=== PATIENT | male | born 1960 | race Hispanic/Latino ===

== ENCOUNTER 2016-04-24 19:33 | Inpatient (IN) | payer MEDICAID, OTHER ==
[2016-04-24 19:34] VITALS: BMI 27.9
--- NOTE | 2016-04-24 21:54 | ED PDOC ---
Arrival/HPI - General Chief Complaint: GI Problem Time Seen by Provider: 04/24/16 21:12 Historian: Patient - History of Present Illness Narrative History of Present Illness (Text): 04/24/16 21:50 Adrian Kruger is a 55 year old male, with a history of alcoholism, alcohol liver disease, esophageal varices, liver cirrhosis, and colonic polyps, presents to the emergency department for evaluation of possible GI bleed. Patient reports of dark stools for past few days. Also reports of left lower quadrant abdominal discomfort. Last drink was earlier today. Denies fever, chills, chest pain, nausea, vomiting, diarrhea, urinary symptoms, or any other complaints at this time. Time/Duration: < week Symptom Onset: Gradual Symptom Course: Unchanged Severity Level: Mild Activities at Onset: Light Past Medical History - Provider Review Nursing Documentation Reviewed: Yes - Past History Past History: Non-Contributing - Infectious Disease Hx of Infectious Diseases: None - Tetanus Immunization Tetanus Immunization: Unknown - Cardiac Hx Cardiac Disorders: Yes - Pulmonary Hx Respiratory Disorders: Yes (smokes 1 pack a day) - Neurological Hx Neurological Disorder: Yes Hx Seizures: Yes - HEENT Hx HEENT Disorder: Yes (eyeglasses) - Renal Hx Renal Disorder: No - Endocrine/Metabolic Hx Endocrine Disorders: No - Hematological/Oncological Hx Blood Disorders: No - Integumentary Hx Dermatological Disorder: No - Musculoskeletal/Rheumatological Hx Falls: No - Gastrointestinal Hx Gastrointestinal Disorders: Yes Other/Comment: alcoholic gastritis - Genitourinary/Gynecological Hx Genitourinary Disorders: No - Psychiatric Hx Depression: Yes Hx Substance Use: No - Surgical History Other/Comment: s/p banding of varices x2 - Anesthesia Hx Anesthesia: No Hx Anesthesia Reactions: No Hx Malignant Hyperthermia: No - Suicidal Assessment Feels Threatened In Home Enviroment: No Family/Social History - Physician Review Nursing Documentation Reviewed: Yes Family/Social History: No Known Family HX Smoking Status: Heavy Smoker > 10 Cigarettes Daily Hx Alcohol Use: Yes Hx Substance Use: No Hx Substance Use Treatment: No Allergies/Home Meds Allergies/Adverse Reactions: Allergies pseudoephedrine HCl [From Sudafed] Allergy (Mild, Verified 04/05/16 18:03) NAUSEA Sulfa (Sulfonamide Antibiotics) Allergy (Mild, Verified 04/05/16 18:03) ANGIOEDEMA Review of Systems - Physician Review All systems were reviewed & negative as marked: Yes - Review of Systems Constitutional: Normal. absent: Fatigue, Fevers Respiratory: Normal. absent: SOB, Cough Cardiovascular: Normal. absent: Chest Pain Gastrointestinal: Abdominal Pain (LLQ ), Other (dark stool ). absent: Diarrhea , Nausea, Vomiting Neurological: Normal. absent: Headache, Dizziness Psychiatric: Normal Physical Exam Vital Signs Reviewed: Yes Vital Signs Temp Pulse Resp BP Pulse Ox 04/24/16 21:00 98.2 F 86 18 118/62 99 Temperature: Afebrile Blood Pressure: Normal Pulse: Regular Respiratory Rate: Normal Appearance: Positive for: Well-Appearing, Non-Toxic, Comfortable Pain Distress: None Mental Status: Positive for: Alert and Oriented X 3 - Systems Exam Head: Present: Atraumatic, Normocephalic Pupils: Present: PERRL. No: Sluggish, Non-Reactive, Pinpoint, Other Extroacular Muscles: Present: EOMI Conjunctiva: Present: Normal Mouth: Present: Moist Mucous Membranes Respiratory/Chest: Present: Clear to Auscultation, Good Air Exchange. No: Respiratory Distress, Accessory Muscle Use Cardiovascular: Present: Regular Rate and Rhythm, Normal S1, S2. No: Murmurs Abdomen: Present: Tenderness ( left lower quadrant ), Normal Bowel Sounds. No: Distention, Peritoneal Signs Rectal: Present: Other (no active bleeding. Bright red blood ). No: Rectal Tenderness, Hemorrhoids, Nodule/Mass/Lesions Neurological: Present: GCS=15, CN II-XII Intact, Speech Normal Skin: Present: Warm, Dry, Normal Color. No: Rashes Psychiatric: Present: Alert, Oriented x 3, Normal Insight, Normal Concentration Medical Decision Making ED Course and Treatment: 04/24/16 22:00 Impression: A 55 year old male who presents to the emergency department complaining of passing dark stools for past few days. Plan: -- Labs -- Labs -- IV fluids -- Urinalysis -- Reassess and disposition Progress Notes: 04/24/16 22:18 EKG interpreted by me: NSR @ 83 bpm. Non-specific T wave changes. 04/25/16 01:00 CT abdomen pelvis reviewed: IMPRESSION: Cirrhotic liver with fatty infiltration, splenomegaly and varices; trace pericholecystic fluid suggests gallbladder disease, no ductal dilatation; enterocolitis, no appendicitis or diverticulitis Chest X-ray read and interpreted by me, which shows no acute diseases Case discussed with , house doctor, who agrees with the plan to admit patient to hospital for GI bleed and abdominal pain. Accepts patient under hospitalist service. - Lab Interpretations Lab Results: 04/24/16 22:40 04/24/16 22:40 Lab Results 04/24/16 22:40: WBC 2.3 L* D, RBC 3.24 L, Hgb 10.2 L, Hct 29.9 L, MCV 92.3, MCH 31.5, MCHC 34.1, RDW 14.7 H, Plt Count 51 L, MPV 10.8, PT 11.4, INR 1.06, APTT 26.1, Sodium 145, Potassium 4.3, Chloride 107, Carbon Dioxide 25, Anion Gap 17, BUN 21, Creatinine 0.9, Est GFR ( Amer) > 60, Est GFR (Non-Af Amer) > 60 , Random Glucose 92, Calcium 9.1, Total Bilirubin 0.6, AST 334 H, ALT 192 H, Alkaline Phosphatase 90, Total Protein 6.0, Albumin 3.4, Globulin 2.6, Albumin/ Globulin Ratio 1.3, Lipase 282, Alcohol, Quantitative 248 H I have reviewed the lab results: Yes - RAD Interpretation Narrative RAD Interpretations (Text): EXAM: CT Abdomen and Pelvis With Intravenous Contrast. COMPARISON: There are no prior studies for comparison. FINDINGS: Lower thorax: Heart size is normal. Lung bases are hyperinflated but clear. There is distal esophageal wall thickening. There are multiple paraesophageal varices in the posterior mediastinum. ABDOMEN: Liver: There is fatty infiltration of the liver. Hepatic contours are nodular. Liver is mildly enlarged. Gallbladder and bile ducts: Gallbladder is partially distended. Common bile duct is unremarkable. There is minimal pericholecystic fluid. Pancreas: Pancreas is mildly atrophic. Spleen: Spleen is enlarged, 24 cm in length. Adrenals: The adrenals Kidneys and ureters: There are small right renal cysts. Kidneys and ureters are otherwise unremarkable. Stomach and bowel: Stomach is almost completely empty.Bowel rotation is normal. Small bowel is mildly distended with fluid. There is mid small bowel wall thickening. There is no obstruction. Appendix is unremarkable. There is mild fatty infiltration of the terminal ileal wall. There is fatty infiltration of the right colon wall. There is descending and sigmoid colon wall thickening. There is rectal wall thickening. There is scattered diverticulosis. Appendix: See stomach and bowel PELVIS: Bladder: unremarkable Reproductive: Prostate is mildly enlarged. Seminal vesicles are unremarkable. ABDOMEN and PELVIS: Intraperitoneal space: There is no free air. Bones/joints: There are degenerative changes in the osseus structures. Soft tissues: There is a fat-containing umbilical hernia. Vasculature: Aorta and inferior vena cava are unremarkable. There are multiple varices in the upper abdomen. Lymph nodes: unremarkable IMPRESSION: Cirrhotic liver with fatty infiltration, splenomegaly and varices; trace pericholecystic fluid suggests gallbladder disease, no ductal dilatation; enterocolitis, no appendicitis or diverticulitis Additional findings as described above. Radiology Orders: 04/24/16 22:02 CHEST PORTABLE [RAD] Stat 04/24/16 22:13 ABD & PELVIS IV CONTRAST ONLY [CT] Stat Graphic Arts Technician: Radiologist - EKG Interpretation Interpreted by ED Physician: Yes Type: 12 lead EKG - Medication Orders Current Medication Orders: Ceftriaxone Sodium (Rocephin 1 Gram Ivpb) 100 mls @ 200 mls/hr IV ONCE STA PRN Reason: Protocol Stop: 04/25/16 01:30 Metronidazole (Flagyl) 100 mls @ 100 mls/hr IVPB STAT STA PRN Reason: Protocol Stop: 04/25/16 02:01 Discontinued Medications Famotidine (Pepcid) 20 mg IVP STAT STA Stop: 04/24/16 22:04 Last Admin: 04/24/16 22:48 Dose: 20 MG IVP Administration Document 04/24/16 22:48 PITO (Rec: 04/24/16 22:48 P[facility]O [email or web address]) Charges for Administration # of IVP Administrations 1 Sodium Chloride (Sodium Chloride 0.9%) 1,000 mls @ 999 mls/hr IV .Q1H1M STA Stop: 04/24/16 23:03 Last Admin: 04/24/16 22:49 Dose: 999 MLS/HR eMAR Start Stop Document 04/24/16 22:49 PITO (Rec: 04/24/16 22:49 PITO [email or web address]) Intravenous Solution Start Date 04/24/16 Start Time 22:49 End Date 04/24/16 End time 23:49 Total Infusion Time 60 Iohexol (Omnipaque 350 100 Ml) Confirm Administered Dose 350 mg .ROUTE .STK-MED ONE Stop: 04/24/16 23:05 Pantoprazole Sodium (Protonix Inj) 40 mg IVP ONCE STA Stop: 04/24/16 22:04 Last Admin: 04/24/16 22:47 Dose: 40 MG IVP Administration Document 04/24/16 22:47 PITO (Rec: 04/24/16 22:47 [email or web address] Charges for Administration # of IVP Administrations 1 - Scribe Statement The provider has reviewed the documentation as recorded by the Magedibe Katlyn Perrin Provider Attestation: All medical record entries made by the Scribe were at my direction and personally dictated by me. I have reviewed the chart and agree that the record accurately reflects my personal performance of the history, physical exam, medical decision making, and the department course for this patient. I have also personally directed, reviewed, and agree with the discharge instructions and disposition. Disposition/Present on Arrival - Present on Arrival Any Indicators Present on Arrival: No History of DVT/PE: No History of Uncontrolled Diabetes: No Urinary Catheter: No History of Decub. Ulcer: No History Surgical Site Infection Following: None - Disposition Have Diagnosis and Disposition been Completed?: Yes Diagnosis: GI bleed, Alcohol abuse, Pancytopenia Disposition: HOSPITALIZED Disposition Time: 01:08 Patient Plan: Admission Patient Problems: Current Active Problems Problem Status Diagnosed GI bleed Acute Pancytopenia Acute Alcohol abuse Chronic Condition: STABLE Referrals: Davey De La Torre MD [Primary Care Provider] - Follow up with primary
[2016-04-24] MEDS ORDERED: Sodium Chloride 0.9% 1,000 ML IV STA (22:03)
[2016-04-24 22:57] LABS: HEMATOCRIT 29.9 % (42.0-52.0); MEAN CELL VOLUME 92.3 fL (80.0-105.0); MEAN CORPUSCULAR HEMOGLOBIN 31.5 pg (25.0-35.0); MEAN CORPUSCULAR HGB CONC 34.1 g/dl (31.0-37.0); MEAN PLATELET VOLUME 10.8 fl (7.0-11.0); RED CELL DISTRIBUTION WIDTH 14.7 % (11.5-14.5)
[2016-04-24] MEDS ORDERED: Iohexol 350 MG/100 ML VIAL ONE (23:04)
[2016-04-24 23:09] LABS: ALB/GLOB RATIO 1.3 (1.1-1.8); ALKALINE PHOSPHATASE 90 U/L (38-133); ALT/SGPT 192 U/L (7-56); AST/SGOT 334 U/L (15-59); BILIRUBIN,TOTAL 0.6 mg/dL (0.2-1.3); BLOOD UREA NITROGEN 21 mg/dL (7-21); CALCIUM 9.1 mg/dL (8.4-10.5); CARBON DIOXIDE 25 mmol/L (21-33); CHLORIDE 107 mmol/L (98-107); GFR AFRICAN-AMERICAN > 60; GLUCOSE,RANDOM 92 mg/dL (70-110); LIPASE 282 U/L (23-300); POTASSIUM 4.3 mmol/L (3.6-5.0); SODIUM 145 mmol/L (132-148)
[2016-04-24 23:22] LABS: WHITE BLOOD COUNT 2.3 10^3/ul (4.5-11.0)
[2016-04-24 23:55] LABS: INR 1.06 (0.93-1.08); PARTIAL THROMBOPLASTIN TIME 26.1 Seconds (23.7-30.8)
--- NOTE | 2016-04-25 00:25 | CT ---
EXAM: CT Abdomen and Pelvis With Intravenous Contrast. CLINICAL HISTORY: 55 years old, male; Signs and symptoms; Other: Blood in stool; Additional info: Left lower abdominal pain TECHNIQUE: Axial computed tomography images of the abdomen and pelvis with intravenous contrast. This CT exam was performed using one or more of the following dose reduction techniques: automated exposure control, adjustment of the mA and/or kV according to patient size, and/or use of iterative reconstruction technique. Coronal and sagittal reformatted images were created and reviewed. CONTRAST: 100 mL of OMNI administered intravenously. EXAM DATE/TIME: 04/24/2016 10:13 PM COMPARISON: There are no prior studies for comparison. FINDINGS: Lower thorax: Heart size is normal. Lung bases are hyperinflated but clear. There is distal esophageal wall thickening. There are multiple paraesophageal varices in the posterior mediastinum. ABDOMEN: Liver: There is fatty infiltration of the liver. Hepatic contours are nodular. Liver is mildly enlarged. Gallbladder and bile ducts: Gallbladder is partially distended. Common bile duct is unremarkable. There is minimal pericholecystic fluid. Pancreas: Pancreas is mildly atrophic. Spleen: Spleen is enlarged, 24 cm in length. Adrenals: The adrenals Kidneys and ureters: There are small right renal cysts. Kidneys and ureters are otherwise unremarkable. Stomach and bowel: Stomach is almost completely empty.Bowel rotation is normal. Small bowel is mildly distended with fluid. There is mid small bowel wall thickening. There is no obstruction. Appendix is unremarkable. There is mild fatty infiltration of the terminal ileal wall. There is fatty infiltration of the right colon wall. There is descending and sigmoid colon wall thickening. There is rectal wall thickening. There is scattered diverticulosis. Appendix: See stomach and bowel PELVIS: Bladder: unremarkable Reproductive: Prostate is mildly enlarged. Seminal vesicles are unremarkable. ABDOMEN and PELVIS: Intraperitoneal space: There is no free air. Bones/joints: There are degenerative changes in the osseus structures. Soft tissues: There is a fat-containing umbilical hernia. Vasculature: Aorta and inferior vena cava are unremarkable. There are multiple varices in the upper abdomen. Lymph nodes: unremarkable IMPRESSION: Cirrhotic liver with fatty infiltration, splenomegaly and varices; trace pericholecystic fluid suggests gallbladder disease, no ductal dilatation; enterocolitis, no appendicitis or diverticulitis Additional findings as described above.
[2016-04-25] MEDS ORDERED: cefTRIAXone 1 gm 100 ML IV STA (01:01)
[2016-04-25] MEDS ORDERED: metroNIDAZOLE IV 500 mg/100 ml 100 ML IVPB STA (01:02)
--- NOTE | 2016-04-25 02:16 | CP.PCM.HP ---
<Marissa Cortes - Last Filed: 04/25/16 03:06> History of Present Illness - History of Present Illness History of Present Illness: PGY-[address] Nakia Barakat 55 year old male, with a history of alcoholism, withdrawal seizure, alcohol liver disease, esophageal varices s/p banding, liver cirrhosis, and colonic polyps, presents to the emergency department for evaluation of possible GI bleed. Patient reports of maroon colored stools for past few days. 3 episodes per day. The stool was formed but loose., not watery diarrhea. Last similar episodes was a year ago last [facility] hospitalization. Pt reports of left upper quadrant abdominal discomfort. Last drink was earlier today. Pt started to have coughs with phlegms with some fever today. ED performed rectal exam. it was bright red blood in stool, scanty quantity. Lipase was 311. ROS - Denies dizziness, chest pain, SOB, palpitation, nausea, vomiting, diarrhea , urinary symptoms, or constipation ED: EKG NSR @ 83 bpm. Non-specific T wave changes. CXR: No active disease CT abdomen pelvis With Intravenous Contrast: Cirrhotic liver with fatty infiltration, splenomegaly and varices; trace pericholecystic fluid suggests gallbladder disease, no ductal dilatation; enterocolitis, no appendicitis or diverticulitis. scattered diverticulosis. distal esophageal wall thickening. There are multiple paraesophageal varices in the posterior mediastinum. multiple varices in the upper abdomen. PMH: HTN Hx. alcoholism, alcohol liver disease, esophageal varices s/p banding , liver cirrhosis, Rectal bleeding. Anemia. Seizures.Alcohol withdrawal related Alcoholic gastritis. Tobacco dependence. Esophageal varices. Colonic polyps. PSH: Colonic polypectomy(4 removed.) Feb 2105. Banding of varices. FH: Father of liver cancer. Mother of breast cancer. Sister had brain aneurism. SH: Smoking-1 PP2 days x 40 years. ETOH-1/2 pint per week for 3 months, prior to that was taking 2 pint every day for 10 years. Drugs-Did heroine.Last use was one year ago.Had one bag every 2 weeks for 2 6 months.Denies IVDA. Med: MAR PMD:Dr.Jacqualine Downey at [facility]. Present on Admission - Present on Admission Any Indicators Present on Admission: No Past Patient History - Infectious Disease Hx of Infectious Diseases: None - Tetanus Immunizations Tetanus Immunization: Unknown - Past Medical History & Family History Past Medical History?: Yes - Past Social History Smoking Status: Heavy Smoker > 10 Cigarettes Daily - CARDIAC Hx Cardiac Disorders: Yes - PULMONARY Hx Respiratory Disorders: Yes (smokes 1 pack a day) - NEUROLOGICAL Hx Neurological Disorder: Yes Hx Seizures: Yes - HEENT Hx HEENT Problems: Yes (eyeglasses) - RENAL Hx Chronic Kidney Disease: No - ENDOCRINE/METABOLIC Hx Endocrine Disorders: No - HEMATOLOGICAL/ONCOLOGICAL Hx Blood Disorders: No - INTEGUMENTARY Hx Dermatological Problems: No - MUSCULOSKELETAL/RHEUMATOLOGICAL Hx Falls: No - GASTROINTESTINAL Hx Gastrointestinal Disorders: Yes Other/Comment: alcoholic gastritis - GENITOURINARY/GYNECOLOGICAL Hx Genitourinary Disorders: No - PSYCHIATRIC Hx Depression: Yes Hx Substance Use: No - SURGICAL HISTORY Other/Comment: s/p banding of varices x2 - ANESTHESIA Hx Anesthesia: No Hx Anesthesia Reactions: No Hx Malignant Hyperthermia: No Meds Allergies/Adverse Reactions: Allergies Allergy/AdvReac Type Severity Reaction Status Date / Time pseudoephedrine HCl Allergy Mild NAUSEA Verified 04/05/16 18:03 [From Sudafed] Sulfa (Sulfonamide Allergy Mild ANGIOEDEMA Verified 04/05/16 18:03 Antibiotics) Physical Exam - Constitutional Appears: No Acute Distress - Head Exam Head Exam: ATRAUMATIC, NORMOCEPHALIC - Eye Exam Eye Exam: EOMI, Normal appearance, PERRL Pupil Exam: NORMAL ACCOMODATION Additional comments: alcohol breath - ENT Exam ENT Exam: Mucous Membranes Moist - Neck Exam Neck exam: Positive for: Normal Inspection. Negative for: Meningismus - Respiratory Exam Respiratory Exam: Clear to Auscultation Bilateral, Wheezes, NORMAL BREATHING PATTERN. absent: Rales, Rhonchi - Cardiovascular Exam Cardiovascular Exam: REGULAR RHYTHM, +S1, +S2. absent: Systolic Murmur - GI/Abdominal Exam GI & Abdominal Exam: Distended, Normal Bowel Sounds, Soft, Tenderness (LUQ) Additional comments: negative lenz sign - Extremities Exam Extremities exam: Positive for: normal capillary refill, pedal pulses present. Negative for: calf tenderness, pedal edema - Back Exam Back exam: absent: CVA tenderness (L), CVA tenderness (R), paraspinal tenderness , vertebral tenderness - Neurological Exam Neurological exam: Alert, Oriented x3 - Psychiatric Exam Psychiatric exam: Normal Affect, Normal Mood - Skin Skin Exam: Dry, Normal Color, Warm Results - Vital Signs Recent Vital Signs: Last Vital Signs Temp 98.2 F 04/24/16 21:00 Pulse 86 04/24/16 21:00 Resp 18 04/24/16 21:00 BP 118/62 04/24/16 21:00 Pulse Ox 99 04/24/16 21:00 - Labs Result Diagrams: 04/24/16 22:40 04/24/16 22:40 Assessment & Plan - Assessment and Plan (Free Text) Plan: 55 year old male, with a history of alcoholism, withdrawal seizure, alcohol liver disease, esophageal varices s/p banding, liver cirrhosis, and colonic polyps, presents to the emergency department for evaluation of possible GI bleed with Maroon colored stools for past few days. Pt reports of left upper quadrant abdominal discomfort. Last drink was earlier today. Pt started to have coughs with phlegms with some fever today. LUQ Abdominal pain - alcoholic pancreatitis vs gastritis. r/o cardiac cause. r/o aspiration vs walking pneumonia - Lipase only elevated to 311 - bowel rest for now - advanced diet per GI - flagyl GI bleed, upper vs lower - varices - Hb 10.2 - GI consult - IVF for now Esophageal Varices, s/p banding - add propanolol - IV protonix bid - NPO for now Pancytopenia - pending CBC with diff to calculate ANC for poss neutrpenic precaution - likely from bone marrow suppression from alcohol Cough with mild wheezes - bronchitis r/o aspiration vs walking pneumonia - CXR clear - azithromycin and rocephin for now - duoneb Alcohol abuse - no sign of withdrawal - Multivitamin, thiamine, folic acid Transaminitis, alcoholic hepatitis - Elevated LFTs, AST:ALT 2:1, trend - Hep panel, abdominal u/s - no ascites on CT Hx seizure - seizure precaution Tobacco abuse - nicotine patch Prophyklaxis - SCD, GI dose of protonix S/R/D/w Dr. Barakat - Date & Time Date: 04/25/16 Time: 02:18 <Roman Barakat - Last Filed: 04/25/16 07:01> Results - Vital Signs Recent Vital Signs: Last Vital Signs Temp 98.5 F 04/25/16 05:46 Pulse 90 04/25/16 05:46 Resp 20 04/25/16 05:46 BP 157/94 H 04/25/16 05:46 Pulse Ox 99 04/25/16 03:34 - Labs Result Diagrams: 04/25/16 02:23 04/24/16 22:40 Labs: Laboratory Results - last 24 hr 04/25/16 02:23 WBC 1.9 L* RBC 3.08 L Hgb 9.6 L Hct 28.2 L MCV 91.6 MCH 31.2 MCHC 34.0 RDW 14.8 H Plt Count 48 L* MPV 10.4 Neutrophils % (Manual) 48 L Band Neutrophils % 5 H Lymphocytes % (Manual) 43 H Monocytes % (Manual) 3 Eosinophils % (Manual) 1 Nucleated RBC % 1 Platelet Evaluation Low Poikilocytosis (manual 1+ Anisocytosis (manual) Slight Attending/Attestation - Attestation I have personally seen and examined this patient.: Yes I have fully participated in the care of the patient.: Yes I have reviewed all pertinent clinical information: Yes Notes (Text): 04/25/16 07:00 Patient was seen when he was in room # 9 in the ER. Agree with history , physical examination , assessment and plan.
[2016-04-25 03:16] LABS: HEMATOCRIT 28.2 % (42.0-52.0); MEAN CELL VOLUME 91.6 fL (80.0-105.0); MEAN CORPUSCULAR HEMOGLOBIN 31.2 pg (25.0-35.0); MEAN PLATELET VOLUME 10.4 fl (7.0-11.0); RED CELL DISTRIBUTION WIDTH 14.8 % (11.5-14.5)
[2016-04-25] MEDS: Lactated Ringer's 1,000 ML IV SCH (03:30)
[2016-04-25 03:33] LABS: PLATELET COUNT 48 10^3/uL (120.0-450.0); WHITE BLOOD COUNT 1.9 10^3/ul (4.5-11.0)
[2016-04-25 03:34] LABS: ADD MANUAL DIFF? YES
[2016-04-25 04:54] LABS: NEUTROPHIL 48 % (50.0-70.0)
[2016-04-25 04:55] LABS: ANISOCYTOSIS SLIGHT; BAND 5 % (0-2); EOSINOPHIL 1 % (0.0-3.0); NUCLEATED RED BLOOD CELL 1 %; PLATELET ESTIMATE LOW (NORMAL); POIKILOCYTOSIS 1+
--- NOTE | 2016-04-25 10:11 | CP.PCM.CON ---
<Tj Saul - Last Filed: 04/25/16 10:21> History of Present Illness - History of Present Illness History of Present Illness: PGY4 GI Fellow Consult Note Patient is a 55yo male with PMHx significant for EtOH cirrhosis with history of non-bleeding esophageal varices (s/p prophylactic banding in January 2015), EtOH abuse who presented to the ED with complaint of rectal bleeding. The patient admits to daily EtOH use, drinking 1/2 pint daily for several years. Starting Sunday he began to note dark stool and as the weekend progressed he developed more frequent dark stool with occasional fresh blood. As he developed some epigastric abdominal pain and lightheadedness he came to the ED for further evaluation. Since admission he has had minimal BM but admits to persistent melena. Last alcoholic drink was yesterday. No nausea, vomiting, hematemesis, abdominal distention. 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 absent: Hemoptysis, Excessive Mucous Production - Gastrointestinal Gastrointestinal: Abdominal Pain, Diarrhea, Heartburn, Hematochezia, Loose Stools, Melena. absent: Constipation, Cramping, Dyspepsia, Hematemesis, Nausea , Vomiting - Genitourinary Genitourinary: absent: Dysuria, Urinary Frequency, Urinary Urgency - Musculoskeletal Musculoskeletal: absent: Back Pain, Neck Pain - Integumentary Integumentary: absent: New Lesions, Rash - Neurological Neurological: absent: Dizziness, Numbness, Focal Weakness - Psychiatric Psychiatric: absent: Anxiety, Depression - Endocrine Endocrine: absent: Polydipsia, Polyphagia, Polyuria - Hematologic/Lymphatic Hematologic: absent: Easy Bleeding, Easy Bruising, Lymphadenopathy Past Patient History - Infectious Disease Hx of Infectious Diseases: None - Tetanus Immunizations Tetanus Immunization: Unknown - Past Medical History & Family History Past Medical History?: Yes - Past Social History Smoking Status: Current Some Days Smoker - CARDIAC Hx Cardiac Disorders: No - PULMONARY Hx Respiratory Disorders: No Other/Comment: Active smoker - NEUROLOGICAL Hx Neurological Disorder: Yes Hx Seizures: Yes - HEENT Hx HEENT Problems: Yes (eyeglasses) - RENAL Hx Chronic Kidney Disease: No - ENDOCRINE/METABOLIC Hx Endocrine Disorders: No - HEMATOLOGICAL/ONCOLOGICAL Hx Blood Disorders: No - INTEGUMENTARY Hx Dermatological Problems: No - MUSCULOSKELETAL/RHEUMATOLOGICAL Hx Falls: No - GASTROINTESTINAL Hx Gastrointestinal Disorders: Yes Other/Comment: Liver Dx, esophogeal varices, - GENITOURINARY/GYNECOLOGICAL Hx Genitourinary Disorders: No - PSYCHIATRIC Hx Depression: Yes Hx Substance Use: No - SURGICAL HISTORY Hx Surgeries: Yes - ANESTHESIA Hx Anesthesia Reactions: No Hx Malignant Hyperthermia: No Meds Allergies/Adverse Reactions: Allergies Allergy/AdvReac Type Severity Reaction Status Date / Time pseudoephedrine HCl Allergy Mild NAUSEA Verified 04/05/16 18:03 [From Sudafed] Sulfa (Sulfonamide Allergy Mild ANGIOEDEMA Verified 04/05/16 18:03 Antibiotics) - Medications Medications: Current Medications Lactated Ringer's (Lactated Ringer's) 1,000 mls @ 100 mls/hr IV .Q10H [facility]ON[facility] Last Admin: 04/25/16 03:30 Dose: 100 mls/hr Metronidazole (Flagyl) 100 mls @ 100 mls/hr IVPB Q8 [facility]ON[facility] PRN Reason: Protocol Ceftriaxone Sodium (Rocephin 1 Gram Ivpb) 100 mls @ 100 mls/hr IVPB DAILY [facility] PRN Reason: Protocol Azithromycin (Zithromax 500mg In Ns) 250 mls @ 167 mls/hr IVPB DAILY [facility] PRN Reason: Protocol Octreotide Acetate 1,250 mcg/ (Sodium Chloride) 252.5 mls @ 5.05 mls/hr IV .Q24H [facility]ONI; 25 MCG/HR PRN Reason: Protocol Last Admin: 04/25/16 09:35 Dose: 5.05 mls/hr Mirtazapine (Remeron) 45 mg PO HS [facility] Multivitamins/Minerals (Therapeutic-M Tab) 1 tab PO DAILY [facility] Nicotine (Nicoderm Cq) 1 patch TD DAILY [facility] Pantoprazole Sodium (Protonix Inj) 40 mg IVP Q12 [facility] Propranolol HCl (Inderal La) 60 mg PO DAILY [facility] Thiamine HCl (Vitamin B1 Tab) 100 mg PO DAILY [facility] Physical Exam - Constitutional Appears: Non-toxic, No Acute Distress - Eye Exam Eye Exam: EOMI, PERRL - ENT Exam ENT Exam: Mucous Membranes Moist - Respiratory Exam Respiratory Exam: Rales. absent: Rhonchi, Wheezes - Cardiovascular Exam Cardiovascular Exam: RRR, +S1, +S2 - GI/Abdominal Exam GI & Abdominal Exam: Normal Bowel Sounds, Soft. absent: Distended, Firm, Guarding, Organomegaly, Rigid, Tenderness - Rectal Exam Rectal Exam: Black Stool - Extremities Exam Extremities exam: Positive for: normal inspection. Negative for: pedal edema - Neurological Exam Neurological exam: Alert, Oriented x3 - Psychiatric Exam Psychiatric exam: Normal Affect, Normal Mood - Skin Skin Exam: Dry, Warm Results - Vital Signs Recent Vital Signs: Last Vital Signs Temp 98.5 F 04/25/16 08:13 Pulse 90 04/25/16 08:13 Resp 20 04/25/16 08:13 BP 157/94 H 04/25/16 08:13 Pulse Ox 95 04/25/16 08:13 - Labs Result Diagrams: 04/25/16 02:23 04/24/16 22:40 Labs: Laboratory Results - last 24 hr 04/25/16 02:23 WBC 1.9 L* RBC 3.08 L Hgb 9.6 L Hct 28.2 L MCV 91.6 MCH 31.2 MCHC 34.0 RDW 14.8 H Plt Count 48 L* MPV 10.4 Neutrophils % (Manual) 48 L Band Neutrophils % 5 H Lymphocytes % (Manual) 43 H Monocytes % (Manual) 3 Eosinophils % (Manual) 1 Nucleated RBC % 1 Platelet Evaluation Low Poikilocytosis (manual 1+ Anisocytosis (manual) Slight Assessment & Plan - Assessment and Plan (Free Text) Assessment: Patient is a 55yo male with PMHx significant for EtOH cirrhosis with history of non-bleeding esophageal varices (s/p prophylactic banding in January 2015), EtOH abuse who presented to the ED with complaint of rectal bleeding. -Acute blood loss anemia -Melena -Cirrhosis 2/2 EtOH abuse -Acute EtOH intoxication -Alcoholic hepatitis -EtOH abuse -Pancytopenia 2/2 above Plan: -Maintain NPO -Start octreotide IV gtt, ordered -Plan for EGD this morning -2 units PRBCs on hold -CT A/P reviewed -Abdominal U/S pending -Counseled on EtOH cessation -Monitor for signs of withdrawal *MELD-Na: 7 *MDF: 7; thus no indication for corticosteroid therapy - Date & Time Date: 04/25/16 Time: 07:00 <Rehana Belle - Last Filed: 04/25/16 11:48> Meds - Medications Medications: Current Medications Lactated Ringer's (Lactated Ringer's) 1,000 mls @ 100 mls/hr IV .Q10H [facility] Last Admin: 04/25/16 03:30 Dose: 100 mls/hr Metronidazole (Flagyl) 100 mls @ 100 mls/hr IVPB Q8 TONI PRN Reason: Protocol Ceftriaxone Sodium (Rocephin 1 Gram Ivpb) 100 mls @ 100 mls/hr IVPB DAILY [facility] PRN Reason: Protocol Azithromycin (Zithromax 500mg In Ns) 250 mls @ 167 mls/hr IVPB DAILY [facility] PRN Reason: Protocol Lactated Ringer's (Lactated Ringer's) 1,000 mls @ 75 mls/hr IV [id number] TONI Stop: 04/25/16 13:31 Mirtazapine (Remeron) 45 mg PO HS [facility] Multivitamins/Minerals (Therapeutic-M Tab) 1 tab PO DAILY [facility] Nicotine (Nicoderm Cq) 1 patch TD DAILY [facility] Pantoprazole Sodium (Protonix Inj) 40 mg IVP Q12 [facility] Propranolol HCl (Inderal La) 60 mg PO DAILY [facility] Thiamine HCl (Vitamin B1 Tab) 100 mg PO DAILY [facility] Results - Vital Signs Recent Vital Signs: Last Vital Signs Temp 98.3 F 04/25/16 11:35 Pulse 85 04/25/16 11:35 Resp 19 04/25/16 11:35 BP 143/73 04/25/16 11:35 Pulse Ox 93 L 04/25/16 11:35 - Labs Result Diagrams: 04/25/16 02:23 04/24/16 22:40 Labs: Laboratory Results - last 24 hr 04/25/16 02:23 WBC 1.9 L* RBC 3.08 L Hgb 9.6 L Hct 28.2 L MCV 91.6 MCH 31.2 MCHC 34.0 RDW 14.8 H Plt Count 48 L* MPV 10.4 Neutrophils % (Manual) 48 L Band Neutrophils % 5 H Lymphocytes % (Manual) 43 H Monocytes % (Manual) 3 Eosinophils % (Manual) 1 Nucleated RBC % 1 Platelet Evaluation Low Poikilocytosis (manual 1+ Anisocytosis (manual) Slight Attending/Attestation - Attestation I have personally seen and examined this patient.: Yes I have fully participated in the care of the patient.: Yes I have reviewed all pertinent clinical information: Yes Notes (Text): Patient seen and examined with GI fellow. Agree with his note as documented above with the following additions/exceptions. This is a 55 year old male with h/o ETOH cirrhosis complicated by esophageal varices s/p banding 01/2015 who presents with complaint of dark stool/rectal bleeding. He is hemodynamically stable. No complaint of abdominal pain, nausea or vomiting. No hematemesis. Given history fo cirrhosis/varices, we performed upper endoscopy today and found 2 columns of large, non bleeding esophageal varices that were banded. He also had non bleeding gastric/duodenal ulcers. Would recommend continued supportive care, monitor H/H (goal Hb ~8, do not overtransfuse), PPI BID. Continue ceftrianxone for SBP prophylaxis. Can start clear liquid diet. Monitor for bleeding. Obtain abdominal ultrasound. Advised ETOH abstinence, monitor for withdrawal. 04/25/16 11:45
[2016-04-25] MEDS ORDERED: Propofol 10 mg/ml Inj (20 ML) ONE ×2 (10:46→11:05)
[2016-04-25] MEDS ORDERED: Midazolam 2 MG/2 ML VIAL ONE (10:47)
[2016-04-25] MEDS: Multivitamin With Minerals Tab PO SCH (11:00)
--- NOTE | 2016-04-25 11:05 | RAD ---
HISTORY: medical clearance COMPARISON: Comparison is made to the previous study dated 04/05/2016 FINDINGS: LUNGS: No active pulmonary disease. PLEURA: No significant pleural effusion identified, no pneumothorax apparent. CARDIOVASCULAR: Normal. OSSEOUS STRUCTURES: No significant abnormalities. VISUALIZED UPPER ABDOMEN: Normal. OTHER FINDINGS: None. IMPRESSION: No active disease.
[2016-04-25] MEDS ORDERED: Lactated Ringer's 1,000 ML IV SCH (11:30)
[2016-04-25 12:43] LABS: EOS % 0.6 % (1.5-5.0); GRAN # 1.28 (1.4-6.5); GRAN % 70.7 % (50.0-68.0); LYMPH # 0.4 (1.2-3.4); LYMPH % 24.3 % (22.0-35.0); MEAN CELL VOLUME 91.4 fL (80.0-105.0); MEAN CORPUSCULAR HGB CONC 33.9 g/dl (31.0-37.0); MEAN PLATELET VOLUME 10.5 fl (7.0-11.0); MONO # 0.1 (0.1-0.6); MONO % 4.4 % (1.0-6.0); PLATELET COUNT 53 10^3/uL (120.0-450.0); RED CELL DISTRIBUTION WIDTH 14.7 % (11.5-14.5)
[2016-04-25 12:53] LABS: ALB/GLOB RATIO 1.3 (1.1-1.8); ALKALINE PHOSPHATASE 88 U/L (38-133); ALT/SGPT 200 U/L (7-56); AST/SGOT 368 U/L (15-59); BILIRUBIN,TOTAL 1.1 mg/dL (0.2-1.3); BLOOD UREA NITROGEN 19 mg/dL (7-21); CARBON DIOXIDE 28 mmol/L (21-33); CHLORIDE 102 mmol/L (95-110); GFR AFRICAN-AMERICAN > 60; GLUCOSE,RANDOM 96 mg/dL (70-110); POTASSIUM 4.7 mmol/L (3.6-5.0); SODIUM 142 mmol/L (132-148); TOTAL PROTEIN 6.5 g/dL (5.8-8.3)
[2016-04-25 12:57] LABS: ADD MANUAL DIFF? NO; WHITE BLOOD COUNT 1.8 10^3/ul (4.5-11.0)
[2016-04-25 13:00] LABS: INR 1.07 (0.93-1.08); PARTIAL THROMBOPLASTIN TIME 26.3 Seconds (23.7-30.8)
[2016-04-25] MEDS: Propranolol 60 mg ER Cap PO SCH (13:08)
[2016-04-25] MEDS: cefTRIAXone 1 gm 100 ML IVPB SCH (13:11)
--- NOTE | 2016-04-25 13:28 | US ---
HISTORY: abdominal pain, elevated LFT COMPARISON: April 25, 2016. CT abdomen and pelvis. TECHNIQUE: Sonographic evaluation of the abdomen. FINDINGS: LIVER: Measures 18.8 cm. Hepatomegaly is Hepatopedal blood flow. Fatty infiltration manifest ultrasonographically as increased echogenicity of the liver parenchyma. No mass. No intrahepatic bile duct dilatation. GALLBLADDER: Gallbladder wall thickening, pericholecystic fluid. Gallstones are not identified Incidental finding(s): Solitary polyp 5.6 mm. COMMON BILE DUCT: Measures 4.3 mm. No stones. No dilatation. PANCREAS: Obscured by overlying bowel gas. Non diagnostic assessment of the pancreas. RIGHT KIDNEY: Measures 5 x 11.1cm. Normal echogenicity. No calculus, mass, or hydronephrosis.Incidental finding(s): Simple cysts (2). Upper pole cyst 2.3 x 1.5 cm. Midpole 61.3 x 1.6 cm. LEFT KIDNEY: Measures 11.6 x 4.5cm. Normal echogenicity. No calculus, mass, or hydronephrosis. SPLEEN: Massive splenomegaly. Orthogonal measurements 22.8 x 9.5 cm. Markedly dilated venous varicosities rib left upper quadrant. AORTA: No aneurysmal dilatation. IVC: Unremarkable. OTHER FINDINGS: None. IMPRESSION: Gallbladder wall thickening, trace pericholecystic fluid. Findings may represent acalculous cholecystitis. Gallstones are not present. Hepatosplenomegaly.
[2016-04-25] MEDS: Azithromycin 500MG/NS 250ml 250 ML IVPB SCH (14:15)
[2016-04-25] MEDS: metroNIDAZOLE IV 500 mg/100 ml 100 ML IVPB SCH ×2 (14:57→21:06)
--- NOTE | 2016-04-25 18:09 | CARD ---
APPROVED REPORT EKG Measurement Heart [id number] <Conclusion> Normal sinus rhythm Nonspecific T wave abnormality Abnormal ECG
[2016-04-26] MEDS: Lactated Ringer's 1,000 ML IV SCH ×3 (00:12→10:10)
[2016-04-26] MEDS: metroNIDAZOLE IV 500 mg/100 ml 100 ML IVPB SCH ×2 (05:27→13:15)
[2016-04-26 06:54] LABS: ADD MANUAL DIFF? NO
[2016-04-26 07:06] LABS: GRAN # 2.17 (1.4-6.5); GRAN % 76.1 % (50.0-68.0); HEMATOCRIT 29.7 % (42.0-52.0); LYMPH # 0.5 (1.2-3.4); LYMPH % 17.9 % (22.0-35.0); MEAN CELL VOLUME 90.3 fL (80.0-105.0); MEAN CORPUSCULAR HEMOGLOBIN 31.3 pg (25.0-35.0); MEAN CORPUSCULAR HGB CONC 34.7 g/dl (31.0-37.0); MEAN PLATELET VOLUME 10.7 fl (7.0-11.0); MONO # 0.2 (0.1-0.6); PLATELET COUNT 61 10^3/uL (120.0-450.0); RED CELL DISTRIBUTION WIDTH 14.3 % (11.5-14.5)
[2016-04-26 07:30] LABS: ALB/GLOB RATIO 1.3 (1.1-1.8); ALKALINE PHOSPHATASE 72 U/L (38-133); ALT/SGPT 154 U/L (7-56); AST/SGOT 217 U/L (15-59); BILIRUBIN,TOTAL 1.1 mg/dL (0.2-1.3); BLOOD UREA NITROGEN 16 mg/dL (7-21); CALCIUM 8.2 mg/dL (8.4-10.5); CARBON DIOXIDE 28 mmol/L (21-33); CHLORIDE 97 mmol/L (98-107); GFR AFRICAN-AMERICAN > 60; GLUCOSE,RANDOM 114 mg/dL (70-110); POTASSIUM 3.7 mmol/L (3.6-5.0); SODIUM 135 mmol/L (132-148); TOTAL PROTEIN 6.2 g/dL (5.8-8.3)
[2016-04-26 07:43] LABS: WHITE BLOOD COUNT 2.9 10^3/ul (4.5-11.0)
[2016-04-26] MEDS ORDERED: guaiFENesin 100 mg/5 ml Syrup UD PO PRN (08:22)
[2016-04-26 08:29] LABS: INR 1.14 (0.93-1.08)
--- NOTE | 2016-04-26 08:57 | CP.PCM.PN ---
Addendum entered and electronically signed by Tj Saul DO 04/26/16 14:02 : PGY4 Addendum: A/P: HCV Ab positivity -Check HCV genotype and viral load Original Note: <Tj Saul - Last Filed: 04/26/16 13:43> Subjective - Date & Time of Evaluation Date of Evaluation: 04/26/16 Time of Evaluation: 07:50 - Subjective Subjective: PGY4 GI Fellow Progress Note Patient seen and examined bedside this morning. The patient is tolerating liquid diet, passing soft brown BM and denies any abdominal pain. No dysphagia noted. Denies any fever, chills. 12 system ROS performed and negative except where stated. Objective - Vital Signs/Intake and Output Vital Signs (last 24 hours): Temp Pulse Resp BP Pulse Ox 99.2 F 95 H 20 159/90 H 93 L 04/26/16 08:01 04/26/16 08:01 04/26/16 08:01 04/26/16 08:01 04/26/16 08:01 Intake and Output: 04/26/16 04/26/16 06:59 18:59 Intake Total 1600 Balance 1600 - Medications Medications: Current Medications Diazepam (Valium) 5 mg PO TID TONI PRN Reason: Protocol Last Admin: 04/25/16 20:05 Dose: 5 mg Guaifenesin (Robitussin) 100 mg PO Q4H PRN PRN Reason: Cough Lactated Ringer's (Lactated Ringer's) 1,000 mls @ 100 mls/hr IV .Q10H [facility]ONI Last Admin: 04/26/16 05:32 Dose: 100 mls/hr Metronidazole (Flagyl) 100 mls @ 100 mls/hr IVPB Q8 [facility]ONI PRN Reason: Protocol Last Admin: 04/26/16 05:27 Dose: 100 mls/hr Ceftriaxone Sodium (Rocephin 1 Gram Ivpb) 100 mls @ 100 mls/hr IVPB DAILY [facility] PRN Reason: Protocol Last Admin: 04/25/16 13:11 Dose: 100 mls/hr Azithromycin (Zithromax 500mg In Ns) 250 mls @ 167 mls/hr IVPB DAILY [facility] PRN Reason: Protocol Last Admin: 04/25/16 14:15 Dose: 167 mls/hr Lorazepam (Ativan) 1 mg IVP Q6H PRN; Protocol PRN Reason: Seizure activity Last Admin: 04/25/16 21:35 Dose: 1 mg Mirtazapine (Remeron) 45 mg PO HS [facility] Last Admin: 04/25/16 21:06 Dose: 45 mg Multivitamins/Minerals (Therapeutic-M Tab) 1 tab PO DAILY [facility] Last Admin: 04/25/16 11:00 Dose: 1 tab Nicotine (Nicoderm Cq) 1 patch TD DAILY [facility] Last Admin: 04/25/16 13:19 Dose: Not Given Pantoprazole Sodium (Protonix Inj) 40 mg IVP Q12 [facility] Last Admin: 04/25/16 21:05 Dose: 40 mg Propranolol HCl (Inderal La) 60 mg PO DAILY [facility] Last Admin: 04/25/16 13:08 Dose: 60 mg Thiamine HCl (Vitamin B1 Tab) 100 mg PO DAILY [facility] Last Admin: 04/25/16 13:13 Dose: 100 mg - Labs Labs: 04/26/16 06:30 04/26/16 06:30 PT 12.3 Seconds (9.9-11.8) H 04/26/16 08:00 INR 1.14 (0.93-1.08) H 04/26/16 08:00 APTT 26.3 Seconds (23.7-30.8) 04/25/16 12:39 - Constitutional Appears: Non-toxic, No Acute Distress - Eye Exam Eye Exam: EOMI, PERRL - ENT Exam ENT Exam: Mucous Membranes Moist - Respiratory Exam Respiratory Exam: Clear to Ausculation Bilateral. absent: Rales, Rhonchi, Wheezes - Cardiovascular Exam Cardiovascular Exam: RRR, +S1, +S2 - GI/Abdominal Exam GI & Abdominal Exam: Soft, Normal Bowel Sounds. absent: Distended, Firm, Guarding, Rigid, Tenderness, Organomegaly - Extremities Exam Extremities Exam: Normal Inspection. absent: Pedal Edema - Neurological Exam Neurological Exam: Alert, Awake, Oriented x3 - Psychiatric Exam Psychiatric exam: Normal Affect, Normal Mood - Skin Skin Exam: Dry, Warm Assessment and Plan - Assessment and Plan (Free Text) Assessment: Patient is a 55yo male with PMHx significant for EtOH cirrhosis with history of non-bleeding esophageal varices (s/p prophylactic banding in January 2015), EtOH abuse who presented to the ED with complaint of rectal bleeding. -Acute blood loss anemia, stable -PUD -Non-bleeding esophageal varices -Melena, resolved -Cirrhosis 2/2 EtOH abuse -Acute EtOH intoxication -Alcoholic hepatitis, resolving -EtOH abuse -Pancytopenia 2/2 above Plan: -S/P EGD with 2 bands placed for variceal ligation -Tolerating clear liquid diet, advance as tolerated -Switch protonix to PO BIDAC -Patient would benefit from Ceftriaxone for 5-7 days given GI bleeding -Would recommend D/C Flagyl; suspect Azithromycin for suspected respiratory infection -CBC stable -Patient requires repeat endoscopy in one month to evaluate varices, repeat ligation if needed -Patient was started on Propranolol LA 60mg PO QD; monitor HR - goal to decrease rate by 25% as tolerated by patient -Clear for D/C from GI perspective <Sugey Lamas MD - Last Filed: 04/26/16 17:47> Objective - Vital Signs/Intake and Output Vital Signs (last 24 hours): Temp Pulse Resp BP Pulse Ox 99.2 F 93 H 20 165/95 H 93 L 04/26/16 08:01 04/26/16 10:08 04/26/16 08:01 04/26/16 10:08 04/26/16 08:01 Intake and Output: 04/26/16 04/26/16 06:59 18:59 Intake Total 1600 Balance 1600 - Medications Medications: Current Medications Diazepam (Valium) 5 mg PO TID [facility]ONI PRN Reason: Protocol Last Admin: 04/26/16 17:08 Dose: 5 mg Guaifenesin (Robitussin) 100 mg PO Q4H PRN PRN Reason: Cough Ceftriaxone Sodium (Rocephin 1 Gram Ivpb) 100 mls @ 100 mls/hr IVPB DAILY [facility] PRN Reason: Protocol Last Admin: 04/26/16 10:06 Dose: 100 mls/hr Azithromycin (Zithromax 500mg In Ns) 250 mls @ 167 mls/hr IVPB DAILY [facility] PRN Reason: Protocol Last Admin: 04/26/16 10:06 Dose: 167 mls/hr Lorazepam (Ativan) 1 mg IVP Q6H PRN; Protocol PRN Reason: Seizure activity Last Admin: 04/25/16 21:35 Dose: 1 mg Mirtazapine (Remeron) 45 mg PO HS [facility] Last Admin: 04/25/16 21:06 Dose: 45 mg Multivitamins/Minerals (Therapeutic-M Tab) 1 tab PO DAILY [facility] Last Admin: 04/26/16 10:05 Dose: 1 tab Nicotine (Nicoderm Cq) 1 patch TD DAILY [facility] Last Admin: 04/26/16 10:05 Dose: Not Given Pantoprazole Sodium (Protonix Ec Tab) 40 mg PO 0730,1630 [facility] Last Admin: 04/26/16 17:07 Dose: 40 mg Propranolol HCl (Inderal La) 60 mg PO DAILY [facility] Last Admin: 04/26/16 10:08 Dose: 60 mg Thiamine HCl (Vitamin B1 Tab) 100 mg PO DAILY [facility] Last Admin: 04/26/16 10:05 Dose: 100 mg - Labs Labs: 04/26/16 06:30 04/26/16 06:30 PT 12.3 Seconds (9.9-11.8) H 04/26/16 08:00 INR 1.14 (0.93-1.08) H 04/26/16 08:00 APTT 26.3 Seconds (23.7-30.8) 04/25/16 12:39 Attending/Attestation - Attestation I have personally seen and examined this patient.: Yes I have fully participated in the care of the patient.: Yes I have reviewed all pertinent clinical information, including history, physical exam and plan: Yes Notes (Text): 04/26/16 17:45 Patient seen with GI fellow on rounds. This is a 55yo male with PMHx significant for EtOH cirrhosis with history of non-bleeding esophageal varices ( s/p prophylactic banding in January 2015), EtOH abuse who presented to the ED with complaint of rectal bleeding. HCV ab positive. s/p EGD with varices s/p 2 bands placed. Advance diet as tolerated. Continue antibiotics for 5 days and PPI daily. Alcohol cessation. Discontinue flagyl. Repeat EGD in one month. Semd HCV viral load and GT
[2016-04-26] MEDS: Multivitamin With Minerals Tab PO SCH (10:05)
[2016-04-26] MEDS: Azithromycin 500MG/NS 250ml 250 ML IVPB SCH (10:06)
[2016-04-26] MEDS: cefTRIAXone 1 gm 100 ML IVPB SCH (10:06)
[2016-04-26] MEDS: Propranolol 60 mg ER Cap PO SCH (10:08)
--- NOTE | 2016-04-26 15:12 | CP.PCM.PN ---
<Dyllan Fuentes - Last Filed: 04/26/16 18:51> Subjective - Date & Time of Evaluation Date of Evaluation: 04/26/16 Time of Evaluation: 07:25 - Subjective Subjective: Patient seen and examined at bedside. No acute events overnight. Patient still complains of upper extremity tremors. Patient reports weakness when he walks to use the restroom. He also complains of non productive cough that was keeping him up at night. He denies dizziness, chest pain, SOB, palpitation, nausea, vomiting, diarrhea, urinary symptoms, or constipation. Objective - Vital Signs/Intake and Output Vital Signs (last 24 hours): Temp Pulse Resp BP Pulse Ox 99.2 F 93 H 20 165/95 H 93 L 04/26/16 08:01 04/26/16 10:08 04/26/16 08:01 04/26/16 10:08 04/26/16 08:01 Intake and Output: 04/26/16 04/26/16 06:59 18:59 Intake Total 1600 Balance 1600 - Medications Medications: Current Medications Diazepam (Valium) 5 mg PO TID TONI PRN Reason: Protocol Last Admin: 04/26/16 13:14 Dose: 5 mg Guaifenesin (Robitussin) 100 mg PO Q4H PRN PRN Reason: Cough Lactated Ringer's (Lactated Ringer's) 1,000 mls @ 100 mls/hr IV .Q10H TONI Last Admin: 04/26/16 10:10 Dose: 100 mls/hr Metronidazole (Flagyl) 100 mls @ 100 mls/hr IVPB Q8 TONI PRN Reason: Protocol Last Admin: 04/26/16 13:15 Dose: 100 mls/hr Ceftriaxone Sodium (Rocephin 1 Gram Ivpb) 100 mls @ 100 mls/hr IVPB DAILY TONI PRN Reason: Protocol Last Admin: 04/26/16 10:06 Dose: 100 mls/hr Azithromycin (Zithromax 500mg In Ns) 250 mls @ 167 mls/hr IVPB DAILY TONI PRN Reason: Protocol Last Admin: 04/26/16 10:06 Dose: 167 mls/hr Lorazepam (Ativan) 1 mg IVP Q6H PRN; Protocol PRN Reason: Seizure activity Last Admin: 04/25/16 21:35 Dose: 1 mg Mirtazapine (Remeron) 45 mg PO HS [facility] Last Admin: 04/25/16 21:06 Dose: 45 mg Multivitamins/Minerals (Therapeutic-M Tab) 1 tab PO DAILY [facility] Last Admin: 04/26/16 10:05 Dose: 1 tab Nicotine (Nicoderm Cq) 1 patch TD DAILY [facility] Last Admin: 04/26/16 10:05 Dose: Not Given Pantoprazole Sodium (Protonix Ec Tab) 40 mg PO 0730,1630 [facility] Propranolol HCl (Inderal La) 60 mg PO DAILY [facility] Last Admin: 04/26/16 10:08 Dose: 60 mg Thiamine HCl (Vitamin B1 Tab) 100 mg PO DAILY [facility] Last Admin: 04/26/16 10:05 Dose: 100 mg - Labs Labs: 04/26/16 06:30 04/26/16 06:30 PT 12.3 Seconds (9.9-11.8) H 04/26/16 08:00 INR 1.14 (0.93-1.08) H 04/26/16 08:00 APTT 26.3 Seconds (23.7-30.8) 04/25/16 12:39 - Constitutional Appears: Non-toxic, No Acute Distress - Head Exam Head Exam: ATRAUMATIC, NORMOCEPHALIC - Eye Exam Eye Exam: EOMI, Normal appearance, PERRL Pupil Exam: PERRL - ENT Exam ENT Exam: Mucous Membranes Moist - Neck Exam Neck Exam: Normal Inspection - Respiratory Exam Respiratory Exam: Clear to Ausculation Bilateral, NORMAL BREATHING PATTERN. absent: Respiratory Distress - Cardiovascular Exam Cardiovascular Exam: REGULAR RHYTHM, RRR, +S1, +S2. absent: Murmur - GI/Abdominal Exam GI & Abdominal Exam: Soft, Tenderness (left upper quadrant tenderness, negative Morgan's sign), Normal Bowel Sounds - Extremities Exam Extremities Exam: Normal Capillary Refill. absent: Calf Tenderness, Pedal Edema - Back Exam Back Exam: absent: CVA tenderness (L), CVA tenderness (R), paraspinal tenderness , vertebral tenderness - Neurological Exam Neurological Exam: Alert, Awake, Oriented x3 - Psychiatric Exam Psychiatric exam: Normal Affect, Normal Mood - Skin Skin Exam: Dry, Intact, Warm Assessment and Plan - Assessment and Plan (Free Text) Assessment: 55 year old male with past medical history of alcoholism, withdrawal seizure, alcohol liver disease, esophageal varices s/p banding, liver cirrhosis , and colonic polyps, presents to the emergency department for evaluation of possible GI bleed with Maroon colored stools for past few days. Pt reports of left upper quadrant abdominal discomfort. LUQ Abdominal pain, improved - alcoholic pancreatitis vs gastritis. r/o cardiac cause. r/o aspiration vs walking pneumonia - Lipase only elevated to 248 - Advanced to Regular diet - Protonix PO BIDAC Esophageal Varices, s/p banding - add propanolol - IV protonix bid - Advanced to regular diet - Outpatient follow up, repeat endoscopy in 1 month Alcohol abuse - Still has bilateral extremity tremors and weakness on ambulation - Monitor withdrawal symptoms - Ativan PRN - Multivitamin, thiamine, folic acid Pancytopenia - Calculated ANC 1007 x10^3/uL - likely from bone marrow suppression from alcohol Cough with mild wheezes - bronchitis r/o aspiration vs walking pneumonia - CXR clear - Continue azithromycin and rocephin - duoneb Transaminitis, alcoholic hepatitis vs Hep C - Elevated LFTs, AST:ALT 2:1, trending down - Hep C titer positive - abdominal u/s showed gallbladder wall thickening. Hepatosplenomegaly (see full report) - no ascites on CT - Follow GI recommendations Hx seizure - seizure precaution - Ativan prn Tobacco abuse - nicotine patch Prophyklaxis - SCD, GI dose of protonix - Robitussin prn for coughs <Zoe GALLEGOS,Jacob - Last Filed: 04/27/16 14:55> Objective - Vital Signs/Intake and Output Vital Signs (last 24 hours): Temp Pulse Resp BP Pulse Ox 98.3 F 82 20 146/91 H 96 04/27/16 08:13 04/27/16 09:19 04/27/16 08:13 04/27/16 09:19 04/27/16 08:13 Intake and Output: 04/27/16 04/27/16 06:59 18:59 Intake Total 1060 Balance 1060 - Labs Labs: 04/27/16 06:50 04/27/16 06:50 PT 12.3 Seconds (9.9-11.8) H 04/26/16 08:00 INR 1.14 (0.93-1.08) H 04/26/16 08:00 APTT 26.3 Seconds (23.7-30.8) 04/25/16 12:39 Attending/Attestation - Attestation I have personally seen and examined this patient.: Yes I have fully participated in the care of the patient.: Yes I have reviewed all pertinent clinical information, including history, physical exam and plan: Yes Notes (Text): Patient was seen and examined with biomedical technician .Agreed with resident assessment and plan. Patient remain stable over night, he is SP EGD, hemoglobin is stable.There is no further bleeding.Patient is still having alcohol withdrawal.We will monitor for alcohol withdrawal.. The issue of ongoing alcohol abuse was discussed in detail with patient. Management plan was discussed in detail with patient Education was provided.
[2016-04-26] MEDS: Pantoprazole 40 mg EC Tab PO SCH (17:07)
[2016-04-27 07:13] LABS: GRAN # 0.97 (1.4-6.5); GRAN % 51.1 % (50.0-68.0); HEMATOCRIT 27.9 % (42.0-52.0); LYMPH # 0.7 (1.2-3.4); LYMPH % 36.8 % (22.0-35.0); MEAN CELL VOLUME 90.9 fL (80.0-105.0); MEAN CORPUSCULAR HEMOGLOBIN 30.9 pg (25.0-35.0); MEAN CORPUSCULAR HGB CONC 34.1 g/dl (31.0-37.0); MONO # 0.2 (0.1-0.6); MONO % 12.1 % (1.0-6.0); PLATELET COUNT 56 10^3/uL (120.0-450.0); RED CELL DISTRIBUTION WIDTH 14.7 % (11.5-14.5)
[2016-04-27 07:23] LABS: ALB/GLOB RATIO 1.2 (1.1-1.8); ALKALINE PHOSPHATASE 65 U/L (38-133); ALT/SGPT 127 U/L (7-56); AST/SGOT 181 U/L (15-59); BILIRUBIN,TOTAL 0.8 mg/dL (0.2-1.3); BLOOD UREA NITROGEN 17 mg/dL (7-21); CALCIUM 7.9 mg/dL (8.4-10.5); CARBON DIOXIDE 28 mmol/L (21-33); CHLORIDE 99 mmol/L (98-107); GFR AFRICAN-AMERICAN > 60; GLUCOSE,RANDOM 90 mg/dL (70-110); POTASSIUM 3.3 mmol/L (3.6-5.0); SODIUM 136 mmol/L (132-148); TOTAL PROTEIN 5.7 g/dL (5.8-8.3)
[2016-04-27] MEDS: Pantoprazole 40 mg EC Tab PO SCH (07:43)
[2016-04-27 07:48] LABS: ADD MANUAL DIFF? NO; WHITE BLOOD COUNT 1.9 10^3/ul (4.5-11.0)
[2016-04-27 08:14] VITALS: RESP 20; TEMP 98.3; O2SAT 96
[2016-04-27] MEDS: Azithromycin 500MG/NS 250ml 250 ML IVPB SCH (09:16)
[2016-04-27] MEDS: Multivitamin With Minerals Tab PO SCH (09:19)
[2016-04-27] MEDS: Propranolol 60 mg ER Cap PO SCH (09:19)
[2016-04-27 09:21] VITALS: BP 146/91; PULSE 82
[2016-04-27] MEDS ORDERED: Potassium Chloride 20 mEq ER Tab PO ONE (09:21)
[2016-04-27] MEDS: cefTRIAXone 1 gm 100 ML IVPB SCH (09:21)
--- NOTE | 2016-04-27 11:51 | CP.PCM.PN ---
<Tj Saul - Last Filed: 04/27/16 12:04> Subjective - Date & Time of Evaluation Date of Evaluation: 04/27/16 Time of Evaluation: 07:20 - Subjective Subjective: PGY4 GI Fellow Progress Note Patient seen and examined bedside this morning. Admits to nasal congestion and cough. No dysphagia or odynphagia. Denies any further melena or hematochezia. 12 system ROS performed and negative except where stated. Objective - Vital Signs/Intake and Output Vital Signs (last 24 hours): Temp Pulse Resp BP Pulse Ox 98.3 F 82 20 146/91 H 96 04/27/16 08:13 04/27/16 09:19 04/27/16 08:13 04/27/16 09:19 04/27/16 08:13 Intake and Output: 04/27/16 04/27/16 06:59 18:59 Intake Total 1060 Balance 1060 - Medications Medications: Current Medications Diazepam (Valium) 5 mg PO TID TONI PRN Reason: Protocol Last Admin: 04/27/16 09:19 Dose: 5 mg Guaifenesin (Robitussin) 100 mg PO Q4H PRN PRN Reason: Cough Ceftriaxone Sodium (Rocephin 1 Gram Ivpb) 100 mls @ 100 mls/hr IVPB DAILY TONI PRN Reason: Protocol Last Admin: 04/27/16 09:21 Dose: 100 mls/hr Azithromycin (Zithromax 500mg In Ns) 250 mls @ 167 mls/hr IVPB DAILY TONI PRN Reason: Protocol Last Admin: 04/27/16 09:16 Dose: 167 mls/hr Lorazepam (Ativan) 1 mg IVP Q6H PRN; Protocol PRN Reason: Seizure activity Last Admin: 04/27/16 00:18 Dose: 1 mg Mirtazapine (Remeron) 45 mg PO HS TONI Last Admin: 04/26/16 21:25 Dose: 45 mg Multivitamins/Minerals (Therapeutic-M Tab) 1 tab PO DAILY TONI Last Admin: 04/27/16 09:19 Dose: 1 tab Nicotine (Nicoderm Cq) 1 patch TD DAILY TONI Last Admin: 04/27/16 09:31 Dose: Not Given Pantoprazole Sodium (Protonix Ec Tab) 40 mg PO 0730,1630 TONI Last Admin: 04/27/16 07:43 Dose: 40 mg Propranolol HCl (Inderal La) 60 mg PO DAILY [facility] Last Admin: 04/27/16 09:19 Dose: 60 mg Thiamine HCl (Vitamin B1 Tab) 100 mg PO DAILY [facility] Last Admin: 04/27/16 09:19 Dose: 100 mg - Labs Labs: 04/27/16 06:50 04/27/16 06:50 PT 12.3 Seconds (9.9-11.8) H 04/26/16 08:00 INR 1.14 (0.93-1.08) H 04/26/16 08:00 APTT 26.3 Seconds (23.7-30.8) 04/25/16 12:39 - Constitutional Appears: Non-toxic, No Acute Distress - Eye Exam Eye Exam: EOMI, PERRL - ENT Exam ENT Exam: Mucous Membranes Moist - Respiratory Exam Respiratory Exam: Clear to Ausculation Bilateral. absent: Rales, Rhonchi, Wheezes - Cardiovascular Exam Cardiovascular Exam: RRR, +S1, +S2 - GI/Abdominal Exam GI & Abdominal Exam: Soft, Hernia (umbilical, reducible), Normal Bowel Sounds. absent: Distended, Firm, Guarding, Rigid, Tenderness, Organomegaly - Extremities Exam Extremities Exam: Normal Inspection. absent: Pedal Edema - Neurological Exam Neurological Exam: Alert, Awake, Oriented x3 - Psychiatric Exam Psychiatric exam: Normal Affect, Normal Mood - Skin Skin Exam: Dry, Warm Assessment and Plan - Assessment and Plan (Free Text) Assessment: Patient is a 55yo male with PMHx significant for EtOH cirrhosis with history of non-bleeding esophageal varices (s/p prophylactic banding in January 2015), EtOH abuse who presented to the ED with complaint of rectal bleeding. -Acute blood loss anemia, stable -HCV Ab positive -PUD -Non-bleeding esophageal varices -Melena, resolved -Cirrhosis 2/2 EtOH abuse; HCV Ab positive -Acute EtOH intoxication -Alcoholic hepatitis, resolving -EtOH abuse -Pancytopenia 2/2 above Plan: -S/P EGD with 2 bands placed for variceal ligation -Tolerating diet without issue -Protonix 40mg PO BIDAC, continue on D/C -Patient would benefit from Ceftriaxone for 5-7 days given GI bleeding, if D/C please continue on Levofloxacin 500mg PO QD for 2 more days -Patient requires repeat endoscopy in one month to evaluate varices, repeat ligation if needed -Patient was started on Propranolol LA 60mg PO QD; monitor HR - goal to decrease rate by 25% as tolerated by patient -Clear for D/C from GI perspective; F/U with GI as outpatient <Rehana Belle - Last Filed: 04/27/16 13:03> Objective - Vital Signs/Intake and Output Vital Signs (last 24 hours): Temp Pulse Resp BP Pulse Ox 98.3 F 82 20 146/91 H 96 04/27/16 08:13 04/27/16 09:19 04/27/16 08:13 04/27/16 09:19 04/27/16 08:13 Intake and Output: 04/27/16 04/27/16 06:59 18:59 Intake Total 1060 Balance 1060 - Medications Medications: Current Medications Diazepam (Valium) 5 mg PO TID TONI PRN Reason: Protocol Last Admin: 04/27/16 09:19 Dose: 5 mg Guaifenesin (Robitussin) 100 mg PO Q4H PRN PRN Reason: Cough Ceftriaxone Sodium (Rocephin 1 Gram Ivpb) 100 mls @ 100 mls/hr IVPB DAILY TONI PRN Reason: Protocol Last Admin: 04/27/16 09:21 Dose: 100 mls/hr Azithromycin (Zithromax 500mg In Ns) 250 mls @ 167 mls/hr IVPB DAILY TONI PRN Reason: Protocol Last Admin: 04/27/16 09:16 Dose: 167 mls/hr Lorazepam (Ativan) 1 mg IVP Q6H PRN; Protocol PRN Reason: Seizure activity Last Admin: 04/27/16 00:18 Dose: 1 mg Mirtazapine (Remeron) 45 mg PO HS TONI Last Admin: 04/26/16 21:25 Dose: 45 mg Multivitamins/Minerals (Therapeutic-M Tab) 1 tab PO DAILY TONI Last Admin: 04/27/16 09:19 Dose: 1 tab Nicotine (Nicoderm Cq) 1 patch TD DAILY TONI Last Admin: 04/27/16 09:31 Dose: Not Given Pantoprazole Sodium (Protonix Ec Tab) 40 mg PO 0730,1630 TONI Last Admin: 04/27/16 07:43 Dose: 40 mg Propranolol HCl (Inderal La) 60 mg PO DAILY TONI Last Admin: 04/27/16 09:19 Dose: 60 mg Thiamine HCl (Vitamin B1 Tab) 100 mg PO DAILY TONI Last Admin: 04/27/16 09:19 Dose: 100 mg - Labs Labs: 04/27/16 06:50 04/27/16 06:50 PT 12.3 Seconds (9.9-11.8) H 04/26/16 08:00 INR 1.14 (0.93-1.08) H 04/26/16 08:00 APTT 26.3 Seconds (23.7-30.8) 04/25/16 12:39 Attending/Attestation - Attestation I have personally seen and examined this patient.: Yes I have fully participated in the care of the patient.: Yes I have reviewed all pertinent clinical information, including history, physical exam and plan: Yes Notes (Text): Patient seen and examined with GI fellow. Agree with his note as documented above with the following additions/exceptions. This is a 55 YOM with PMHx ETOH cirrhosis with history of non-bleeding esophageal varices (s/p prophylactic banding in January 2015) presenting with complaint of melena. He is s/p EGD with banding of non bleeding varices and evidence of peptic ulcer disease (bx not taken due to thrombocytopenia). He has had no further bleeding episodes and he is tolerating diet. Would recommend continuation of PPI, beta sharona and antibiotic for SBP prophylaxis. He has HCV ab positive (VL and genotype pending). He is stable from GI standpoint for discharge, but will need outpatient follow up for repeat EGD for surveillance of varices/ulcers. Extensive ETOH cessation counseling was given. Please call with any further questions or concerns. 04/27/16 13:00
--- NOTE | 2016-04-27 18:24 | CP.PCM.DIS ---
Provider - Provider Date of Admission: 04/25/16 01:04 Attending physician: Jacob Enriquez MD Primary care physician: Davey De La Torre MD Consults: AUGUSTINE Lamas Time Spent in preparation of Discharge (in minutes): 40 Hospital Course - Lab Results Lab Results: Micro Results 04/25/16 01:30 Blood Blood Culture - Preliminary NO GROWTH AFTER 48 HOURS Most Recent Lab Values WBC 1.9 10^3/ul (4.5-11.0) L* D 04/27/16 06:50 RBC 3.07 10^6/uL (3.5-6.1) L 04/27/16 06:50 Hgb 9.5 gm/dL (14.0-18.0) L 04/27/16 06:50 Hct 27.9 % (42.0-52.0) L 04/27/16 06:50 MCV 90.9 fL (80.0-105.0) 04/27/16 06:50 MCH 30.9 pg (25.0-35.0) 04/27/16 06:50 MCHC 34.1 g/dl (31.0-37.0) 04/27/16 06:50 RDW 14.7 % (11.5-14.5) H 04/27/16 06:50 Plt Count 56 10^3/uL (120.0-450.0) L 04/27/16 06:50 MPV 11.0 fl (7.0-11.0) 04/27/16 06:50 Gran % 51.1 % (50.0-68.0) 04/27/16 06:50 Lymph % (Auto) 36.8 % (22.0-35.0) H 04/27/16 06:50 Price % (Auto) 12.1 % (1.0-6.0) H 04/27/16 06:50 Eos % (Auto) 0.0 % (1.5-5.0) L 04/27/16 06:50 Baso % (Auto) 0.0 % (0.0-3.0) 04/27/16 06:50 Gran # 0.97 (1.4-6.5) L 04/27/16 06:50 Lymph # 0.7 (1.2-3.4) L 04/27/16 06:50 Price # 0.2 (0.1-0.6) 04/27/16 06:50 Eos # 0.0 (0.0-0.7) 04/27/16 06:50 Baso # 0.00 K/mm3 (0.0-2.0) 04/27/16 06:50 Neutrophils % (Manual) 48 % (50.0-70.0) L 04/25/16 02:23 Band Neutrophils % 5 % (0-2) H 04/25/16 02:23 Lymphocytes % (Manual) 43 % (22.0-35.0) H 04/25/16 02:23 Monocytes % (Manual) 3 % (1.0-6.0) 04/25/16 02:23 Eosinophils % (Manual) 1 % (0.0-3.0) 04/25/16 02:23 Nucleated RBC % 1 % 04/25/16 02:23 Platelet Evaluation Low (NORMAL) 04/25/16 02:23 Poikilocytosis (manual 1+ 04/25/16 02:23 Anisocytosis (manual) Slight 04/25/16 02:23 PT 12.3 Seconds (9.9-11.8) H 04/26/16 08:00 INR 1.14 (0.93-1.08) H 04/26/16 08:00 APTT 26.3 Seconds (23.7-30.8) 04/25/16 12:39 Sodium 136 mmol/L (132-148) 04/27/16 06:50 Potassium 3.3 mmol/L (3.6-5.0) L 04/27/16 06:50 Chloride 99 mmol/L (98-107) 04/27/16 06:50 Carbon Dioxide 28 mmol/L (21-33) 04/27/16 06:50 Anion Gap 12 (10-20) 04/27/16 06:50 BUN 17 mg/dL (7-21) 04/27/16 06:50 Creatinine 1.0 mg/dL (0.5-1.4) 04/27/16 06:50 Est GFR ( Amer) > 60 04/27/16 06:50 Est GFR (Non-Af Amer) > 60 04/27/16 06:50 Random Glucose 90 mg/dL (70-110) 04/27/16 06:50 Calcium 7.9 mg/dL (8.4-10.5) L 04/27/16 06:50 Total Bilirubin 0.8 mg/dL (0.2-1.3) 04/27/16 06:50 AST 181 U/L (15-59) H 04/27/16 06:50 ALT 127 U/L (7-56) H 04/27/16 06:50 Alkaline Phosphatase 65 U/L (38-133) 04/27/16 06:50 Total Protein 5.7 g/dL (5.8-8.3) L 04/27/16 06:50 Albumin 3.2 g/dL (3.0-4.8) 04/27/16 06:50 Globulin 2.6 gm/dL 04/27/16 06:50 Albumin/Globulin Ratio 1.2 (1.1-1.8) 04/27/16 06:50 Lipase 282 U/L (23-300) 04/24/16 22:40 Alcohol, Quantitative 248 mg/dL (0-10) H 04/24/16 22:40 Hepatitis A IgM Ab Negative (NEGATIVE) 04/25/16 12:39 Hep Bs Antigen Negative (NEGATIVE) 04/25/16 12:39 Hep B Core IgM Ab Negative (NEGATIVE) 04/25/16 12:39 Hepatitis C Antibody Reactive (NEGATIVE) H 04/25/16 12:39 Blood Type O POSITIVE 04/24/16 22:40 Antibody Screen Negative 04/24/16 22:40 Crossmatch See Detail 04/24/16 22:40 BBK History Checked Patient has bt 04/24/16 22:40 Discharge Exam - Head Exam Head Exam: ATRAUMATIC, NORMOCEPHALIC Discharge Plan - Discharge Medications Prescriptions: Ciprofloxacin [Cipro] 500 mg PO BID #10 tab Pantoprazole [Protonix EC Tab] 40 mg PO 0730,1630 #30 ect - Follow Up Plan Condition: STABLE Disposition: HOME/ ROUTINE Instructions: Gastrointestinal Bleeding (DC), Alcohol Intoxication (DC), Abuse of Alcohol (DC) Additional Instructions: -Patient will follow up with his PMD Dr. De La Torre within 1 week of hospital discharge -Patient will follow up with GI for a repeat endoscopy in 4 weeks -Educated patient to avoid NSAID, ASA, which causes GI bleed -Patient will take medications as prescribed -Go to the nearest ED if symptoms return or worsen Referrals: Adams GALLEGOS,MD Sugey [Medical Doctor] - Davey De La Torre MD [Primary Care Provider] -
== END 2016-04-27 14:46 | disposition home or self-care (01) | DRG 433 ==
LOC: ED 19:33 → ERH 04-25 01:04 → 3RNO 04-25 04:56
PROVIDERS: ADMIT Internal Medicine; ATTEND Internal Medicine
PROC: 06L34CZ Occlusion of Esophageal Vein with Extraluminal Device, Percutaneous Endoscopic Approach (ICD-10-PCS; principal; 2016-04-25 12:30)
DX: K70.30 Alcoholic cirrhosis of liver without ascites (principal); I85.10 Secondary esophageal varices without bleeding; D61.818 Other pancytopenia; K26.9 Duodenal ulcer, unspecified as acute or chronic, without hemorrhage or perforation; D62 Acute posthemorrhagic anemia; F10.239 Alcohol dependence with withdrawal, unspecified; K92.1 Melena; K25.9 Gastric ulcer, unspecified as acute or chronic, without hemorrhage or perforation; I10 Essential (primary) hypertension; F17.210 Nicotine dependence, cigarettes, uncomplicated; K70.10 Alcoholic hepatitis without ascites; Y90.8 Blood alcohol level of 240 mg/100 ml or more; Z80.0 Family history of malignant neoplasm of digestive organs; Z80.3 Family history of malignant neoplasm of breast; Z86.010 Personal history of colon polyps

== ENCOUNTER 2016-06-18 14:59 | Inpatient (IN) | payer MEDICAID, OTHER ==
[2016-06-18 15:12] VITALS: BMI 26.9
[2016-06-18] MEDS ORDERED: Folic Acid 1 MG, Thiamine 100 MG, Multivitamin (MVI) 10 ML, Magnesium Sulfate 2 GM in D... IV STA (15:13)
--- NOTE | 2016-06-18 15:23 | ED PDOC ---
Arrival/HPI - General Chief Complaint: Seizure Time Seen by Provider: 06/18/16 15:00 Historian: Patient - History of Present Illness Narrative History of Present Illness (Text): 06/18/16 15:26 A 55 year old male, whose past medical history includes alcohol abuse, alcohol withdrawal seizures, esophageal varices, liver cirrhosis and hypertension, presents to the emergency department after waking up confused and having had a presumptive seizure. Patient was compbative in the field, per EMS.Patient reports feeling shaky but denies headache, focal weakness, chest pain, shortness of breath, abdominal pain, nausea, vomiting or any other complaints at this time. Patient notes felt like just had seizure. Time/Duration: 4-6 hours Symptom Onset: Sudden Symptom Course: Unchanged Activities at Onset: Rest Modifying Factors (Text): none Context: Home Past Medical History - Provider Review Nursing Documentation Reviewed: Yes - Past History Past History: Non-Contributing - Infectious Disease Hx of Infectious Diseases: None - Tetanus Immunization Tetanus Immunization: Unknown - Cardiac Hx Cardiac Disorders: No - Pulmonary Hx Respiratory Disorders: No Other/Comment: Active smoker - Neurological Hx Neurological Disorder: Yes Hx Seizures: Yes - HEENT Hx HEENT Disorder: Yes (eyeglasses) - Renal Hx Renal Disorder: No - Endocrine/Metabolic Hx Endocrine Disorders: No - Hematological/Oncological Hx Blood Disorders: No - Integumentary Hx Dermatological Disorder: No - Musculoskeletal/Rheumatological Hx Falls: No - Gastrointestinal Hx Gastrointestinal Disorders: Yes Other/Comment: Liver Dx, esophogeal varices, - Genitourinary/Gynecological Hx Genitourinary Disorders: No - Psychiatric Hx Depression: Yes Hx Substance Use: No - Surgical History Other/Comment: s/p banding of varices x2 - Anesthesia Hx Anesthesia Reactions: No Hx Malignant Hyperthermia: No - Suicidal Assessment Feels Threatened In Home Enviroment: No Family/Social History - Physician Review Nursing Documentation Reviewed: Yes Family/Social History: No Known Family HX Smoking Status: Current Some Days Smoker Hx Alcohol Use: Yes Hx Substance Use: No Hx Substance Use Treatment: No Allergies/Home Meds Allergies/Adverse Reactions: Allergies pseudoephedrine HCl [From Sudafed] Allergy (Mild, Verified 04/05/16 18:03) NAUSEA Sulfa (Sulfonamide Antibiotics) Allergy (Mild, Verified 04/05/16 18:03) ANGIOEDEMA Review of Systems - Physician Review All systems were reviewed & negative as marked: Yes - Review of Systems Constitutional: Other (shaky). absent: Fevers Eyes: absent: Vision Changes Respiratory: absent: SOB Cardiovascular: absent: Chest Pain Gastrointestinal: absent: Abdominal Pain, Nausea, Vomiting Musculoskeletal: absent: Back Pain, Neck Pain Neurological: Seizure. absent: Headache, Focal Weakness Physical Exam Vital Signs Reviewed: Yes Vital Signs Temp Pulse Resp BP Pulse Ox 06/18/16 14:59 98.6 F 92 H 19 152/102 H 91 L Temperature: Afebrile Blood Pressure: Hypertensive Pulse: Tachycardic Respiratory Rate: Normal Appearance: Positive for: Well-Appearing, Non-Toxic, Comfortable Pain Distress: None Mental Status: Positive for: Alert and Oriented X 3 - Systems Exam Head: Present: Atraumatic, Normocephalic Pupils: Present: PERRL Extroacular Muscles: Present: EOMI Conjunctiva: Present: Normal Mouth: Present: Moist Mucous Membranes Pharnyx: Present: Normal. No: ERYTHEMA, EXUDATE Neck: Present: Normal Range of Motion Respiratory/Chest: Present: Clear to Auscultation, Good Air Exchange. No: Respiratory Distress, Accessory Muscle Use Cardiovascular: Present: Tachycardic Abdomen: Present: Normal Bowel Sounds. No: Tenderness, Distention, Peritoneal Signs Upper Extremity: Present: Normal Inspection. No: Cyanosis, Edema Lower Extremity: Present: Normal Inspection. No: Edema Neurological: Present: GCS=15, CN II-XII Intact, Speech Normal, Motor Func Grossly Intact Skin: Present: Abrasion (small on L side of face) Psychiatric: Present: Alert, Oriented x 3, Normal Insight, Normal Concentration , Other (tremulous) Medical Decision Making ED Course and Treatment: 06/18/16 15:20 Impression: A 55 year old male with presumptive seizure. Patient is tremulous on exam. Differential Diagnosis included but are not limited to: Plan: -- CT brain -- chest xray -- labs -- Urinalysis -- Ativan, IV fluids -- Reassess and disposition Prior Visits: Notes and results from previous visits were reviewed. Patient last reported to emergency department on 04/24/16 for evaluation of GI bleed. Patient was admitted for abdominal pain and GI bleed under hospitalist service. Patient was discharged on 04/27/16. Progress Notes: chest xray: Creator : Rowena Strong MD 06/18/2016 15:31 IMPRESSION: No focal airspace opacity. CT brain: Creator : Rowena Strong MD 06/18/2016 16:24 IMPRESSION: No CT evidence of acute intracranial hemorrhage or acute territorial infarct. Acute infarction may be CT occult within first 24 hours. If a focal deficit persists, consider followup CT or MRI for further evaluation. 06/18/16 17:30 Patient with noted history of likely seizure and here in the ED is tremulous c/ w etoh withdrawal - given oral ativan then iv ativan. Will need to be admitted to [facility]. Discussed with Dr. Bingham. - Lab Interpretations Lab Results: 06/18/16 15:20 06/18/16 15:20 Lab Results 06/18/16 15:20: Alcohol, Quantitative < 10 06/18/16 15:20: Phenytoin < 3 L 06/18/16 15:20: Sodium 136, Potassium 3.5 L, Chloride 92 L, Carbon Dioxide 27, Anion Gap 21 H, BUN 12, Creatinine 0.8, Est GFR ( Amer) > 60, Est GFR ( Non-Af Amer) > 60, Random Glucose 126 H, Calcium 8.5, Magnesium 1.1 L, Total Bilirubin 4.9 H, AST 329 H, ALT 144 H, Alkaline Phosphatase 106, Lactate Dehydrogenase 572, Total Creatine Kinase 119, Troponin I < 0.01, Total Protein 7.3, Albumin 4.2, Globulin 3.1, Albumin/Globulin Ratio 1.4, Lipase 129 06/18/16 15:20: PT 13.1 H, INR 1.21 H, APTT 24.3 06/18/16 15:20: WBC 1.7 L*, RBC 3.99, Hgb 12.7 L, Hct 36.8 L, MCV 92.2, MCH 31.8 , MCHC 34.5, RDW 13.8, Plt Count 55 L, MPV 11.8 H, Gran % 69.6 H, Lymph % (Auto ) 24.4, [place] % (Auto) 6.0, Eos % (Auto) 0.0 L, Baso % (Auto) 0.0, Gran # 1.17 L , Lymph # 0.4 L, [place] # 0.1, Eos # 0.0, Baso # 0.00 I have reviewed the lab results: Yes - RAD Interpretation Radiology Orders: 06/18/16 15:13 CHEST PORTABLE [RAD] Stat 06/18/16 15:14 Brain [HEAD W/O CONTRAST] [CT] Stat - Medication Orders Current Medication Orders: Discontinued Medications Folic Acid 1 mg/ Thiamine HCl 100 mg/ Multivitamins/Vitamin C 10 ml/ Magnesium Sulfate 2 gm/ Dextrose/Sodium Chloride 1,015.2 mls @ 500 mls/hr IV ONCE STA Stop: 06/18/16 17:14 Last Admin: 06/18/16 16:18 Dose: 500 mls/hr Lorazepam (Ativan) 2 mg PO ONCE STA PRN Reason: Protocol Stop: 06/18/16 15:13 Last Admin: 06/18/16 15:33 Dose: 2 mg Lorazepam (Ativan) 2 mg IVP ONCE STA PRN Reason: Protocol Stop: 06/18/16 17:09 - Scribe Statement The provider has reviewed the documentation as recorded by the Liza Gaytan Provider Scribe Attestation: All medical record entries made by the Scribe were at my direction and personally dictated by me. I have reviewed the chart and agree that the record accurately reflects my personal performance of the history, physical exam, medical decision making, and the department course for this patient. I have also personally directed, reviewed, and agree with the discharge instructions and disposition. Disposition/Present on Arrival - Present on Arrival Any Indicators Present on Arrival: No History of DVT/PE: No History of Uncontrolled Diabetes: No Urinary Catheter: No History of Decub. Ulcer: No History Surgical Site Infection Following: None - Disposition Have Diagnosis and Disposition been Completed?: Yes Diagnosis: Alcohol withdrawal seizure Disposition: HOSPITALIZED Disposition Time: 17:30 Patient Plan: Admission, Telemetry Condition: FAIR
--- NOTE | 2016-06-18 15:28 | RAD ---
HISTORY: seizure COMPARISON: 04/05/2016. FINDINGS: LUNGS: No focal airspace opacity. PLEURA: No significant pleural effusion identified, no pneumothorax apparent. CARDIOVASCULAR: Normal. OSSEOUS STRUCTURES: No significant abnormalities. VISUALIZED UPPER ABDOMEN: Normal. OTHER FINDINGS: None. IMPRESSION: No focal airspace opacity.
[2016-06-18 15:31] LABS: ADD MANUAL DIFF? NO
[2016-06-18 15:33] LABS: GRAN # 1.17 (1.4-6.5); GRAN % 69.6 % (50.0-68.0); HEMATOCRIT 36.8 % (42.0-52.0); LYMPH # 0.4 (1.2-3.4); LYMPH % 24.4 % (22.0-35.0); MEAN CELL VOLUME 92.2 fL (80.0-105.0); MEAN CORPUSCULAR HEMOGLOBIN 31.8 pg (25.0-35.0); MEAN CORPUSCULAR HGB CONC 34.5 g/dl (31.0-37.0); MEAN PLATELET VOLUME 11.8 fl (7.0-11.0); MONO # 0.1 (0.1-0.6); PLATELET COUNT 55 10^3/uL (120.0-450.0); RED CELL DISTRIBUTION WIDTH 13.8 % (11.5-14.5)
[2016-06-18 15:47] LABS: WHITE BLOOD COUNT 1.7 10^3/ul (4.5-11.0)
[2016-06-18 15:51] LABS: INR 1.21 (0.93-1.08); PARTIAL THROMBOPLASTIN TIME 24.3 Seconds (23.7-30.8)
[2016-06-18 16:03] LABS: ALB/GLOB RATIO 1.4 (1.1-1.8); ALKALINE PHOSPHATASE 106 U/L (38-133); ALT/SGPT 144 U/L (7-56); AST/SGOT 329 U/L (15-59); BILIRUBIN,TOTAL 4.9 mg/dL (0.2-1.3); BLOOD UREA NITROGEN 12 mg/dL (7-21); CALCIUM 8.5 mg/dL (8.4-10.5); CARBON DIOXIDE 27 mmol/L (21-33); CHLORIDE 92 mmol/L (98-107); GFR AFRICAN-AMERICAN > 60; GLUCOSE,RANDOM 126 mg/dL (70-110); LIPASE 129 U/L (23-300); MAGNESIUM 1.1 mg/dL (1.7-2.2); POTASSIUM 3.5 mmol/L (3.6-5.0); SODIUM 136 mmol/L (132-148); TOTAL PROTEIN 7.3 g/dL (5.8-8.3)
--- NOTE | 2016-06-18 16:21 | CT ---
PROCEDURE: CT HEAD WITHOUT CONTRAST. HISTORY: seizure, hit head COMPARISON: Head CT from 02/26/2016 TECHNIQUE: Axial computed tomography images were obtained through the head/brain without intravenous contrast. Radiation dose: Total exam DLP = 82.62 mGy-cm. This CT exam was performed using one or more of the following dose reduction techniques: Automated exposure control, adjustment of the mA and/or kV according to patient size, and/or use of iterative reconstruction technique. Somewhat limited evaluation due to artifact from patient motion. FINDINGS: HEMORRHAGE: No intracranial hemorrhage. BRAIN: No mass effect or edema. No CT evidence of acute territorial infarct. Patchy and confluent hypodensities throughout the bilateral cerebral hemispheric white matter are most likely from chronic small vessel ischemic changes. Minimal volume loss. VENTRICLES: Unremarkable. No hydrocephalus. CALVARIUM: Unremarkable. PARANASAL SINUSES: Small retention cyst versus polyp in the left sphenoid sinus. MASTOID AIR CELLS: Unremarkable as visualized. No inflammatory changes. OTHER FINDINGS: None. IMPRESSION: No CT evidence of acute intracranial hemorrhage or acute territorial infarct. Acute infarction may be CT occult within first 24 hours. If a focal deficit persists, consider followup CT or MRI for further evaluation.
[2016-06-18 16:29] LABS: TROPONIN I < 0.01 ng/mL
[2016-06-18] MEDS ORDERED: Multivitamin (MVI) 10 ML, Thiamine 100 MG, Folic Acid 1 MG in Sodium Chloride 0.9% 1,00... IV ONE (17:26)
--- NOTE | 2016-06-18 18:13 | CP.PCM.HP ---
<Anayeli Schrader - Last Filed: 06/19/16 07:08> History of Present Illness - History of Present Illness History of Present Illness: 55 yo M, w/ PMHx of ETOH abuse, alcohol withdrawal seizures, esophageal varices , liver cirrhosis and hypertension, presents after waking up from LOC and possibly having a seizure after drinking unknown quanitity of ETOH the night prior. Patient was combative in the field, per EMS. Pt reports alcohol consumption the night before but is vague about what alcohol and amount. Denies fever, chills, headache, focal weakness, chest pain, shortness of breath , abdominal pain, nausea, vomiting, urinary or BM complaints. Recent admission in 04/2016 for GI bleed and ETOH intoxication. PMHx: ETOH abuse, alcohol withdrawal seizures, esophageal varices, liver cirrhosis and hypertension SxHx: Colonic polypectomy(4 removed.) Feb 2105, Banding of varices. FxHx: Father of liver cancer, mother of breast cancer, sister had brain aneurism. social: In past admissions, reported Smoking-1 PP2 days x 40 years. ETOH-current admission, pt is vauge about intake, but in past admissions, reported as high as 2 pints per day. Drugs-Did heroin usage in past allergies: pseduoephedrine, sulfa medications: bupropion, remeron Present on Admission - Present on Admission Any Indicators Present on Admission: No Review of Systems - Review of Systems All systems: reviewed and no additional remarkable complaints except - Constitutional Constitutional: absent: Chills, Fever - Cardiovascular Cardiovascular: absent: Chest Pain, Dyspnea - Respiratory Respiratory: absent: Cough, Dyspnea - Gastrointestinal Gastrointestinal: absent: Abdominal Pain, Diarrhea - Neurological Neurological: Syncope, Tremor Past Patient History - Infectious Disease Hx of Infectious Diseases: None - Tetanus Immunizations Tetanus Immunization: Unknown - Past Medical History & Family History Past Medical History?: Yes - Past Social History Smoking Status: Current Some Days Smoker - CARDIAC Hx Cardiac Disorders: No - PULMONARY Hx Respiratory Disorders: No Other/Comment: Active smoker - NEUROLOGICAL Hx Neurological Disorder: Yes Hx Seizures: Yes - HEENT Hx HEENT Problems: Yes (eyeglasses) - RENAL Hx Chronic Kidney Disease: No - ENDOCRINE/METABOLIC Hx Endocrine Disorders: No - HEMATOLOGICAL/ONCOLOGICAL Hx Blood Disorders: No - INTEGUMENTARY Hx Dermatological Problems: No - MUSCULOSKELETAL/RHEUMATOLOGICAL Hx Falls: No - GASTROINTESTINAL Hx Gastrointestinal Disorders: Yes Other/Comment: Liver Dx, esophogeal varices, - GENITOURINARY/GYNECOLOGICAL Hx Genitourinary Disorders: No - PSYCHIATRIC Hx Depression: Yes Hx Substance Use: No - SURGICAL HISTORY Other/Comment: s/p banding of varices x2 - ANESTHESIA Hx Anesthesia Reactions: No Hx Malignant Hyperthermia: No Meds Allergies/Adverse Reactions: Allergies Allergy/AdvReac Type Severity Reaction Status Date / Time pseudoephedrine HCl Allergy Mild NAUSEA Verified 04/05/16 18:03 [From Sudafed] Sulfa (Sulfonamide Allergy Mild ANGIOEDEMA Verified 04/05/16 18:03 Antibiotics) Penicillins AdvReac Anxiety Verified 06/19/16 07:44 Physical Exam - Constitutional Appears: No Acute Distress, Unkempt - Eye Exam Eye Exam: EOMI, Normal appearance - Respiratory Exam Respiratory Exam: Clear to Auscultation Bilateral, NORMAL BREATHING PATTERN - Cardiovascular Exam Cardiovascular Exam: +S1, +S2. absent: Bradycardia - GI/Abdominal Exam GI & Abdominal Exam: Distended, Soft. absent: Tenderness - Exam External exam: Erythema (areas of erythema on back and face). absent: Lesions - Extremities Exam Extremities exam: Positive for: normal capillary refill, pedal pulses present - Back Exam Back exam: absent: CVA tenderness (L), CVA tenderness (R) - Neurological Exam Neurological exam: Alert Additional comments: fine tremor of hands - Psychiatric Exam Psychiatric exam: Normal Affect, Normal Mood - Skin Skin Exam: Intact, Warm Results - Vital Signs Recent Vital Signs: Last Vital Signs Temp 98.6 F 06/18/16 14:59 Pulse 79 06/18/16 18:00 Resp 18 06/18/16 18:00 BP 164/96 H 06/18/16 18:00 Pulse Ox 95 06/18/16 18:00 - Labs Result Diagrams: 06/18/16 15:20 06/18/16 15:20 Assessment & Plan - Assessment and Plan (Free Text) Plan: 55 yo M, w/ PMHx of ETOH abuse, alcohol withdrawal seizures, esophageal varices , liver cirrhosis and hypertension, presents after waking up from LOC and possibly having a seizure after drinking unknown quanitity of ETOH the night prior. ETOH withdrawal: Banana bag 100cc hr ativan prn, berkley CIWA Elevated liver enzymes: abdominal U/S GI consult, help appreciated syncope/Questionable seizure: Neurology consult, help appreciated Cardiology consult, help appreciated ECHO ordered Hypokalemia: initially 3.5, Repleted in ED Monitor PPX: pepcid, scd <Patrica Bingham A - Last Filed: 06/19/16 13:12> Results - Vital Signs Recent Vital Signs: Last Vital Signs Temp 98.7 F 06/19/16 06:00 Pulse 81 06/19/16 10:00 Resp 19 06/19/16 06:00 BP 120/78 06/19/16 06:00 Pulse Ox 95 06/19/16 06:00 - Labs Result Diagrams: 06/19/16 06:40 06/19/16 06:40 Labs: Laboratory Results - last 24 hr 06/18/16 06/19/16 06/19/16 23:48 02:35 02:35 WBC RBC Hgb Hct MCV MCH MCHC RDW Plt Count MPV Gran % Lymph % (Auto) [place] % (Auto) Eos % (Auto) Baso % (Auto) Gran # Lymph # [facility] [facility] # Eos # Baso # Sodium Potassium Chloride Carbon Dioxide Anion Gap BUN Creatinine Est GFR ( Amer) Est GFR (Non-Af Amer) Random Glucose Calcium Phosphorus Magnesium Total Bilirubin AST ALT Alkaline Phosphatase Lactate Dehydrogenase 505 Total Creatine Kinase 106 Troponin I 0.03 D Total Protein Albumin Globulin Albumin/Globulin Ratio Triglycerides Cholesterol LDL Cholesterol Direct HDL Cholesterol Urine Color Yellow Urine Appearance Sl cloudy Urine pH 7.0 Ur Specific [place] 1.010 Urine Protein Negative Urine Glucose (UA) Negative Urine Ketones Negative Urine Blood Trace-lysed H Urine Nitrate Negative Urine Bilirubin Negative Urine Urobilinogen 4.0 H Ur Leukocyte Esterase Negative Urine RBC 0 - 2 Urine WBC 0 - 2 Ur Epithelial Cells 0 - 2 Urine Bacteria Occ Urine Opiates Screen Negative Urine Methadone Screen Negative Ur Barbiturates Screen Negative Ur Phencyclidine Scrn Negative Ur Amphetamines Screen Negative U Benzodiazepines Scrn Negative U Oth Cocaine Metabols Negative U Cannabinoids Screen Negative 06/19/16 06/19/16 06:40 06:40 WBC 1.9 L* RBC 3.25 L Hgb 10.2 L Hct 30.0 L MCV 92.3 MCH 31.4 MCHC 34.0 RDW 13.7 Plt Count 48 L* MPV 12.7 H Gran % 34.4 L Lymph % (Auto) 58.[address] [facility] % (Auto) 6.9 H Eos % (Auto) 0.5 L Baso % (Auto) 0.0 Gran # 0.65 L Lymph # 1.[address] # 0.1 Eos # 0.0 Baso # 0.00 Sodium 137 Potassium 3.0 L Chloride 98 Carbon Dioxide 34 H Anion Gap 8 L BUN 12 Creatinine 0.9 Est GFR ( Amer) > 60 Est GFR (Non-Af Amer) > 60 Random Glucose 85 Calcium 8.1 L Phosphorus 2.5 Magnesium 1.6 L Total Bilirubin 4.0 H AST 235 H ALT 118 H Alkaline Phosphatase 80 Lactate Dehydrogenase 517 Total Creatine Kinase 80 Troponin I 0.04 D Total Protein 5.8 Albumin 3.2 Globulin 2.6 Albumin/Globulin Ratio 1.2 Triglycerides 104 Cholesterol 140 LDL Cholesterol Direct 66 HDL Cholesterol 66 H Urine Color Urine Appearance Urine pH Ur Specific [place] Urine Protein Urine Glucose (UA) Urine Ketones Urine Blood Urine Nitrate Urine Bilirubin Urine Urobilinogen Ur Leukocyte Esterase Urine RBC Urine WBC Ur Epithelial Cells Urine Bacteria Urine Opiates Screen Urine Methadone Screen Ur Barbiturates Screen Ur Phencyclidine Scrn Ur Amphetamines Screen U Benzodiazepines Scrn U Oth Cocaine Metabols U Cannabinoids Screen Attending/Attestation - Attestation I have personally seen and examined this patient.: Yes I have fully participated in the care of the patient.: Yes Notes (Text): 06/18/16 55 year old male with past medical history of chronic ETOH abuse, esophageal varice, hepatitis C and liver cirrhosis who presents after being found unconscious from from syncope or alcohol withdrawal seizure. Admits to drinking daily; last drink was last night. CT head was negative for acute findings. EKG shows some ST changes although patient denies any chest pain and initial troponin is negative. Will admit to telemetry unit. Serial cardiac enzymes and echocardiogram are ordered. Cardiology and neurology consultations are requested. Continue with seizure precautions and fall precautions. Continue with banana bag and ativan berkley/prn for withdrawal symptoms. Will replete and repeat magnesium and potassium. He was counselled on alcohol abstinence. Pancytopenia likely secondary to chronic ETOH abuse. Will continue to monitor. Elevated LFTs and bilirubin noted. History of Hepatitis C and cirrhosis along with ETOH abuse are contributing factors. GI evaluation and US abdomen is ordered. Overall prognosis is poor given noncompliance and continuous ETOH abuse. Patrica Bingham MD Hospitalist.
[2016-06-19 00:29] LABS: TROPONIN I 0.03 ng/mL
[2016-06-19 03:32] LABS: URINE APPEARANCE SL CLOUDY (CLEAR); URINE BILIRUBIN NEGATIVE (NEGATIVE); URINE BLOOD TRACE-LYSED (NEGATIVE); URINE COLOR YELLOW (YELLOW); URINE GLUCOSE (UA) NEGATIVE (NEGATIVE); URINE KETONE NEGATIVE (NEGATIVE); URINE LEUKOCYTE ESTERASE NEGATIVE Leu/uL (NEGATIVE); URINE PROTEIN NEGATIVE mg/dL (<30 mg/dL)
[2016-06-19 04:13] LABS: URINE RBC 0 - 2 /hpf (0-2); URINE WBC 0 - 2 /hpf (0-6)
[2016-06-19 04:14] LABS: URINE BACTERIA OCC (NEG); URINE EPITHELIAL CELLS 0 - 2 /hpf (0-5)
[2016-06-19 07:23] LABS: EOS % 0.5 % (1.5-5.0); GRAN # 0.65 (1.4-6.5); GRAN % 34.4 % (50.0-68.0); LYMPH # 1.1 (1.2-3.4); LYMPH % 58.2 % (22.0-35.0); MEAN CELL VOLUME 92.3 fL (80.0-105.0); MEAN CORPUSCULAR HEMOGLOBIN 31.4 pg (25.0-35.0); MEAN PLATELET VOLUME 12.7 fl (7.0-11.0); MONO # 0.1 (0.1-0.6); MONO % 6.9 % (1.0-6.0); PLATELET COUNT 48 10^3/uL (120.0-450.0); RED CELL DISTRIBUTION WIDTH 13.7 % (11.5-14.5)
[2016-06-19 07:27] LABS: TROPONIN I 0.04 ng/mL
[2016-06-19 07:30] LABS: ADD MANUAL DIFF? NO
[2016-06-19 07:42] LABS: ALB/GLOB RATIO 1.2 (1.1-1.8); ALKALINE PHOSPHATASE 80 U/L (38-133); ALT/SGPT 118 U/L (7-56); AST/SGOT 235 U/L (15-59); BLOOD UREA NITROGEN 12 mg/dL (7-21); CALCIUM 8.1 mg/dL (8.4-10.5); CARBON DIOXIDE 34 mmol/L (21-33); CHLORIDE 98 mmol/L (98-107); CHOLESTEROL 140 mg/dL (130-200); GFR AFRICAN-AMERICAN > 60; GLUCOSE,RANDOM 85 mg/dL (70-110); MAGNESIUM 1.6 mg/dL (1.7-2.2); PHOSPHOROUS 2.5 mg/dL (2.5-4.5); SODIUM 137 mmol/L (132-148); TOTAL PROTEIN 5.8 g/dL (5.8-8.3)
[2016-06-19 08:06] LABS: WHITE BLOOD COUNT 1.9 10^3/ul (4.5-11.0)
[2016-06-19] MEDS ORDERED: Potassium Chloride 20 mEq ER Tab PO STA (08:39)
--- NOTE | 2016-06-19 09:33 | US ---
HISTORY: elevated lfts COMPARISON: Abdominal ultrasound performed 06/18/16, CT abdomen and pelvis with contrast performed 04/24/16 TECHNIQUE: Sonographic evaluation of the abdomen. FINDINGS: LIVER: Measures 25.0 cm in sagittal dimension. Nodular hepatic contour. Echogenic liver may be seen in setting of hepatic parenchymal disease or fatty infiltration. No focal hepatic mass identified. The main portal vein appears patent with normal directional flow. No intrahepatic bile duct dilatation. GALLBLADDER: No gallstones. Gallbladder wall appears thickened measuring approximately 5 mm. 5 mm echogenic non shadowing focus presumably gallbladder polyp. Negative sonographic Morgan's sign as assessed by the ceo and founder. COMMON BILE DUCT: Measures 5 mm. PANCREAS: Not well visualized. RIGHT KIDNEY: Measures 10.4 x 4.9 x 6.2cm. Probable renal cysts. Upper pole renal cyst measuring approximately 2.5 cm and mid pole/lower pole renal cyst measuring approximately 1.8 cm. LEFT KIDNEY: Measures 12.0 x 5.0 x 6.9cm. No obstructing calculus or hydronephrosis identified. SPLEEN: Measures approximately 18.1 cm. AORTA: Limited views appear unremarkable. IVC: Limited views appear unremarkable. OTHER FINDINGS: Varices. Small right upper quadrant ascites. IMPRESSION: Cirrhotic appearing liver: Hepatomegaly. Echogenic liver may be seen in setting of hepatic parenchymal disease or fatty infiltration. Mild nodular hepatic contour. Splenomegaly. Varices. Ascites. Gallbladder wall thickening. No evidence of gallstones. Negative sonographic Morgan's sign. 5 mm gallbladder polyp. No consensus exist regarding management of polyps in the size range. Current recommendations indicate continued surveillance with serial follow-up imaging at 3, 6, and 12 months. Additional findings as above.
[2016-06-19] MEDS ORDERED: Magnesium Sulfate 2 GM in Sodium Chloride 0.9% 100 ML IVPB ONE (09:44)
--- NOTE | 2016-06-19 09:46 | CP.PCM.CON ---
<Tj Saul - Last Filed: 06/19/16 09:52> History of Present Illness - History of Present Illness History of Present Illness: PGY4 GI Fellow Consult Note Patient is a 55yo male with PMHx significant for EtOH cirrhosis, non-bleeding esophageal varices, PUD, HCV who presented to the ED following loss of consciousness at home. The patient admits to ongoing EtOH abuse, drinking a pint of hard liquor almost daily. Today, states his last drink was Sunday. He was feeling unwell, tremulous and unsteady on his feet prior to losing consciousness. The next thing he recalls is waking up in the ED. Our service was consulted for elevated liver function tests. He denies any abdominal pain and at present is feeling well. Following discharge in April he states he was taking his medications as directed but did not follow with an outpatient GI physician for repeat EGD/banding/ulcer surveillance. Denies any rectal bleeding , nausea, vomiting, fever, chills. PMHx: See HPI PSHx: Denies FHx: Father - liver cancer; Mother - breast cancer Social: Daily EtOH abuse, + tobacco use (~40 pack years), denies any current illicit drug use, former heroin use Endo: Most recent - EGD 04/21 - Large esoph. varices with 2 bands placed, gastric and 2 duodenal ulcers (Wilbert class 3) Review of Systems - Constitutional Constitutional: absent: Anorexia, Chills, Fever - EENT Eyes: absent: Change in Vision Nose/Mouth/Throat: absent: Sore Throat - Cardiovascular Cardiovascular: absent: Chest Pain, Dyspnea, Edema - Respiratory Respiratory: absent: Cough, Dyspnea, Excessive Mucous Production - Gastrointestinal Gastrointestinal: absent: Abdominal Pain, Bloating, Coffee Ground Emesis, Cramping, Dyspepsia, Dysphagia, Early Satiety, Hematemesis, Hematochezia, Loose Stools, Melena, Nausea, Vomiting - Genitourinary Genitourinary: absent: Dysuria, Urinary Frequency, Urinary Urgency - Musculoskeletal Musculoskeletal: absent: Back Pain, Neck Pain - Integumentary Integumentary: absent: New Lesions, Rash - Neurological Neurological: absent: Dizziness, Numbness, Focal Weakness - Psychiatric Psychiatric: absent: Anxiety, Depression - Endocrine Endocrine: absent: Polydipsia, Polyphagia, Polyuria - Hematologic/Lymphatic Hematologic: absent: Easy Bleeding, Easy Bruising, Lymphadenopathy Past Patient History - Infectious Disease Hx of Infectious Diseases: None - Tetanus Immunizations Tetanus Immunization: Unknown - Past Medical History & Family History Past Medical History?: Yes - Past Social History Smoking Status: Current Some Days Smoker - CARDIAC Hx Cardiac Disorders: No - PULMONARY Hx Respiratory Disorders: No Other/Comment: Active smoker - NEUROLOGICAL Hx Neurological Disorder: Yes Hx Seizures: Yes - HEENT Hx HEENT Problems: Yes (eyeglasses) - RENAL Hx Chronic Kidney Disease: No - ENDOCRINE/METABOLIC Hx Endocrine Disorders: No - HEMATOLOGICAL/ONCOLOGICAL Hx Blood Disorders: No - INTEGUMENTARY Hx Dermatological Problems: No - MUSCULOSKELETAL/RHEUMATOLOGICAL Hx Falls: No - GASTROINTESTINAL Hx Gastrointestinal Disorders: Yes Other/Comment: Liver Dx, esophogeal varices, - GENITOURINARY/GYNECOLOGICAL Hx Genitourinary Disorders: No - PSYCHIATRIC Hx Depression: Yes Hx Substance Use: No - SURGICAL HISTORY Other/Comment: s/p banding of varices x2 - ANESTHESIA Hx Anesthesia Reactions: No Hx Malignant Hyperthermia: No Meds Allergies/Adverse Reactions: Allergies Allergy/AdvReac Type Severity Reaction Status Date / Time pseudoephedrine HCl Allergy Mild NAUSEA Verified 04/05/16 18:03 [From Sudafed] Sulfa (Sulfonamide Allergy Mild ANGIOEDEMA Verified 04/05/16 18:03 Antibiotics) Penicillins AdvReac Anxiety Verified 06/19/16 07:44 - Medications Medications: Current Medications Bupropion HCl (Wellbutrin Xl) 150 mg PO DAILY [facility] Famotidine (Pepcid) 20 mg IVP DAILY [facility] Folic Acid (Folic Acid) 1 mg PO DAILY [facility] Potassium Chloride (Potassium Chloride 20 Meq/100 Ml) 20 meq in 100 mls @ 50 mls/hr IVPB Q1H [facility] Stop: 06/19/16 10:44 Lorazepam (Ativan) 2 mg IVP Q3H PRN; Protocol PRN Reason: Agitation Lorazepam (Ativan) 2 mg IVP Q6H [facility] PRN Reason: Protocol Last Admin: 06/19/16 05:12 Dose: 2 mg Mirtazapine (Remeron) 45 mg PO HS [facility] Last Admin: 06/18/16 21:51 Dose: 45 mg Multivitamins/Minerals (Therapeutic-M Tab) 1 tab PO DAILY [facility] Thiamine HCl (Vitamin B1 Tab) 50 mg PO DAILY [facility] Physical Exam - Constitutional Appears: Non-toxic, No Acute Distress - Eye Exam Eye Exam: EOMI, PERRL - ENT Exam ENT Exam: Mucous Membranes Moist - Respiratory Exam Respiratory Exam: Clear to Auscultation Bilateral. absent: Rales, Rhonchi, Wheezes - Cardiovascular Exam Cardiovascular Exam: RRR, +S1, +S2 - GI/Abdominal Exam GI & Abdominal Exam: Normal Bowel Sounds, Soft. absent: Distended, Firm, Guarding, Hernia, Organomegaly, Rigid, Tenderness - Extremities Exam Extremities exam: Positive for: normal inspection. Negative for: pedal edema - Neurological Exam Neurological exam: Alert, Oriented x3 - Psychiatric Exam Psychiatric exam: Normal Affect, Normal Mood - Skin Skin Exam: Dry, Warm Results - Vital Signs Recent Vital Signs: Last Vital Signs Temp 98.7 F 06/19/16 06:00 Pulse 79 06/19/16 06:00 Resp 19 06/19/16 06:00 BP 120/78 06/19/16 06:00 Pulse Ox 95 06/19/16 06:00 - Labs Result Diagrams: 06/19/16 06:40 06/19/16 06:40 Labs: Laboratory Results - last 24 hr 06/18/16 06/19/16 06/19/16 23:48 02:35 02:35 WBC RBC Hgb Hct MCV MCH MCHC RDW Plt Count MPV Gran % Lymph % (Auto) [place]he % (Auto) Eos % (Auto) Baso % (Auto) Gran # Lymph # Ashe # Eos # Baso # Sodium Potassium Chloride Carbon Dioxide Anion Gap BUN Creatinine Est GFR ( Amer) Est GFR (Non-Af Amer) Random Glucose Calcium Phosphorus Magnesium Total Bilirubin AST ALT Alkaline Phosphatase Lactate Dehydrogenase 505 Total Creatine Kinase 106 Troponin I 0.03 D Total Protein Albumin Globulin Albumin/Globulin Ratio Triglycerides Cholesterol LDL Cholesterol Direct HDL Cholesterol Urine Color Yellow Urine Appearance Sl cloudy Urine pH 7.0 Ur Specific [place] 1.010 Urine Protein Negative Urine Glucose (UA) Negative Urine Ketones Negative Urine Blood Trace-lysed H Urine Nitrate Negative Urine Bilirubin Negative Urine Urobilinogen 4.0 H Ur Leukocyte Esterase Negative Urine RBC 0 - 2 Urine WBC 0 - 2 Ur Epithelial Cells 0 - 2 Urine Bacteria Occ Urine Opiates Screen Negative Urine Methadone Screen Negative Ur Barbiturates Screen Negative Ur Phencyclidine Scrn Negative Ur Amphetamines Screen Negative U Benzodiazepines Scrn Negative U Oth Cocaine Metabols Negative U Cannabinoids Screen Negative 06/19/16 06/19/16 06:40 06:40 WBC 1.9 L* RBC 3.25 L Hgb 10.2 L Hct 30.0 L MCV 92.3 MCH 31.4 MCHC 34.0 RDW 13.7 Plt Count 48 L* MPV 12.7 H Gran % 34.4 L Lymph % (Auto) 58.2 H Ashe % (Auto) 6.9 H Eos % (Auto) 0.5 L Baso % (Auto) 0.0 Gran # 0.65 L Lymph # 1.1 L Ashe # 0.1 Eos # 0.0 Baso # 0.00 Sodium 137 Potassium 3.0 L Chloride 98 Carbon Dioxide 34 H Anion Gap 8 L BUN 12 Creatinine 0.9 Est GFR ( Amer) > 60 Est GFR (Non-Af Amer) > 60 Random Glucose 85 Calcium 8.1 L Phosphorus 2.5 Magnesium 1.6 L Total Bilirubin 4.0 H AST 235 H ALT 118 H Alkaline Phosphatase 80 Lactate Dehydrogenase 517 Total Creatine Kinase 80 Troponin I 0.04 D Total Protein 5.8 Albumin 3.2 Globulin 2.6 Albumin/Globulin Ratio 1.2 Triglycerides 104 Cholesterol 140 LDL Cholesterol Direct 66 HDL Cholesterol 66 H Urine Color Urine Appearance Urine pH Ur Specific [place] Urine Protein Urine Glucose (UA) Urine Ketones Urine Blood Urine Nitrate Urine Bilirubin Urine Urobilinogen Ur Leukocyte Esterase Urine RBC Urine WBC Ur Epithelial Cells Urine Bacteria Urine Opiates Screen Urine Methadone Screen Ur Barbiturates Screen Ur Phencyclidine Scrn Ur Amphetamines Screen U Benzodiazepines Scrn U Oth Cocaine Metabols U Cannabinoids Screen Assessment & Plan - Assessment and Plan (Free Text) Assessment: Patient is a 55yo male with PMHx significant for EtOH cirrhosis, non-bleeding esophageal varices, PUD, HCV who presented to the ED following loss of consciousness at home. -EtOH withdrawal seizure -EtOH withdrawal -Abnormal LFTs, suspect alcoholic hepatitis -HCV infection Plan: -Abdominal U/S pending -Encourage EtOH cessation -Medical management for EtOH withdrawal -LFTs downtrending, suspect alcoholic hepatitis -Check HIV screening given leukopenia in prior heroin abuser -Pancytopenia likely a result of EtOH myelosuppression -Outpatient GI follow up encouraged; would benefit from outpt EGD -If patient remains sober, may benefit from eval at [facility] *MELD-Na: 17 *MDF: 18, corticosteroid therapy not indicated - Date & Time Date: 06/19/16 Time: 07:10 <Demar Herrera - Last Filed: 06/19/16 11:15> Meds - Medications Medications: Current Medications Bupropion HCl (Wellbutrin Xl) 150 mg PO DAILY [facility] Famotidine (Pepcid) 20 mg IVP DAILY [facility] Last Admin: 06/19/16 09:54 Dose: 20 mg Folic Acid (Folic Acid) 1 mg PO DAILY [facility] Last Admin: 06/19/16 09:54 Dose: 1 mg Lorazepam (Ativan) 2 mg IVP Q3H PRN; Protocol PRN Reason: Agitation Lorazepam (Ativan) 2 mg IVP Q6H [facility] PRN Reason: Protocol Last Admin: 06/19/16 05:12 Dose: 2 mg Mirtazapine (Remeron) 45 mg PO HS [facility] Last Admin: 06/18/16 21:51 Dose: 45 mg Multivitamins/Minerals (Therapeutic-M Tab) 1 tab PO DAILY [facility] Last Admin: 06/19/16 09:54 Dose: 1 tab Thiamine HCl (Vitamin B1 Tab) 50 mg PO DAILY [facility] Last Admin: 06/19/16 09:55 Dose: 50 mg Results - Vital Signs Recent Vital Signs: Last Vital Signs Temp 98.7 F 06/19/16 06:00 Pulse 79 06/19/16 06:00 Resp 19 06/19/16 06:00 BP 120/78 06/19/16 06:00 Pulse Ox 95 06/19/16 06:00 - Labs Result Diagrams: 06/19/16 06:40 06/19/16 06:40 Labs: Laboratory Results - last 24 hr 06/18/16 06/19/16 06/19/16 23:48 02:35 02:35 WBC RBC Hgb Hct MCV MCH MCHC RDW Plt Count MPV Gran % Lymph % (Auto) Ashe % (Auto) Eos % (Auto) Baso % (Auto) Gran # Lymph # Ashe # Eos # Baso # Sodium Potassium Chloride Carbon Dioxide Anion Gap BUN Creatinine Est GFR ( Amer) Est GFR (Non-Af Amer) Random Glucose Calcium Phosphorus Magnesium Total Bilirubin AST ALT Alkaline Phosphatase Lactate Dehydrogenase 505 Total Creatine Kinase 106 Troponin I 0.03 D Total Protein Albumin Globulin Albumin/Globulin Ratio Triglycerides Cholesterol LDL Cholesterol Direct HDL Cholesterol Urine Color Yellow Urine Appearance Sl cloudy Urine pH 7.0 Ur Specific [place] 1.010 Urine Protein Negative Urine Glucose (UA) Negative Urine Ketones Negative Urine Blood Trace-lysed H Urine Nitrate Negative Urine Bilirubin Negative Urine Urobilinogen 4.0 H Ur Leukocyte Esterase Negative Urine RBC 0 - 2 Urine WBC 0 - 2 Ur Epithelial Cells 0 - 2 Urine Bacteria Occ Urine Opiates Screen Negative Urine Methadone Screen Negative Ur Barbiturates Screen Negative Ur Phencyclidine Scrn Negative Ur Amphetamines Screen Negative U Benzodiazepines Scrn Negative U Oth Cocaine Metabols Negative U Cannabinoids Screen Negative 06/19/16 06/19/16 06:40 06:40 WBC 1.9 L* RBC 3.25 L Hgb 10.2 L Hct 30.0 L MCV 92.3 MCH 31.4 MCHC 34.0 RDW 13.7 Plt Count 48 L* MPV 12.7 H Gran % 34.4 L Lymph % (Auto) 58.2 H Ashe % (Auto) 6.9 H Eos % (Auto) 0.5 L Baso % (Auto) 0.0 Gran # 0.65 L Lymph # 1.1 L Ashe # 0.1 Eos # 0.0 Baso # 0.00 Sodium 137 Potassium 3.0 L Chloride 98 Carbon Dioxide 34 H Anion Gap 8 L BUN 12 Creatinine 0.9 Est GFR ( Amer) > 60 Est GFR (Non-Af Amer) > 60 Random Glucose 85 Calcium 8.1 L Phosphorus 2.5 Magnesium 1.6 L Total Bilirubin 4.0 H AST 235 H ALT 118 H Alkaline Phosphatase 80 Lactate Dehydrogenase 517 Total Creatine Kinase 80 Troponin I 0.04 D Total Protein 5.8 Albumin 3.2 Globulin 2.6 Albumin/Globulin Ratio 1.2 Triglycerides 104 Cholesterol 140 LDL Cholesterol Direct 66 HDL Cholesterol 66 H Urine Color Urine Appearance Urine pH Ur Specific [place] Urine Protein Urine Glucose (UA) Urine Ketones Urine Blood Urine Nitrate Urine Bilirubin Urine Urobilinogen Ur Leukocyte Esterase Urine RBC Urine WBC Ur Epithelial Cells Urine Bacteria Urine Opiates Screen Urine Methadone Screen Ur Barbiturates Screen Ur Phencyclidine Scrn Ur Amphetamines Screen U Benzodiazepines Scrn U Oth Cocaine Metabols U Cannabinoids Screen Attending/Attestation - Attestation I have personally seen and examined this patient.: Yes I have fully participated in the care of the patient.: Yes I have reviewed all pertinent clinical information: Yes Notes (Text): 05/15/17 11:08 I have seen and examined patient with GI fellow. Agree with above documentation with the following additions. In brief, this is a 55 year old male with history of ETOH decompensated cirrhosis, chronic HCV, PUD, who presents to hospital with altered mental status and loss of consciousness with suspected seizure activity at home. He admits to ongoing heavy ETOH use prior to hospital admission. GI called for elevated LFTs. He is seen currently resting in bed and denies abdominal pain, nausea, vomiting, diarrhea, fever/ chills, weight loss, or change in bowel habits. He had an EGD in April 2016 and underwent variceal band ligation. Review of vitals from today are normal. ETOH decompensated cirrhosis Chronic HCV PUD Transaminitis in setting of acute ETOH hepatitis and chronic liver disease, DF 18 Abdominal US reviewed by me showing ascites, cirrhosis, normal caliber CBD - Low sodium diet as tolerated - H/H stable, continue to monitor - Continue to monitor LFTs and avoid hepatotoxic therapy - ETOH cessation counseling - Management of ETOH withdrawal as per medical team - Patient would ultimately benefit from liver transplant evaluation at tertiary care facility given ETOH/HCV cirrhosis, though currently not a candidate given ongoing ETOH abuse. - No planned GI interventions, will sign off case. Please reconsult as necessary, thank you.
[2016-06-19] MEDS ORDERED: buPROPion 150 mg/24 Hours XL Tab PO SCH (10:00)
[2016-06-19] MEDS ORDERED: Multivitamin With Minerals Tab PO SCH (10:00)
--- NOTE | 2016-06-19 10:07 | CP.PCM.PN ---
<Ryan Escobedo - Last Filed: 06/19/16 11:46> Subjective - Date & Time of Evaluation Date of Evaluation: 06/19/16 Time of Evaluation: 07:15 - Subjective Subjective: Patient seen and examined this AM. Patient still complaining of shakes. Pt is AAOx3. Denies fever/chills, headaches, CP, SOB, n/v/d. Objective - Vital Signs/Intake and Output Vital Signs (last 24 hours): Temp Pulse Resp BP Pulse Ox 98.7 F 79 19 120/78 95 06/19/16 06:00 06/19/16 06:00 06/19/16 06:00 06/19/16 06:00 06/19/16 06:00 Intake and Output: 06/19/16 06/19/16 06:59 18:59 Intake Total 2360 Output Total 250 Balance 2110 - Medications Medications: Current Medications Bupropion HCl (Wellbutrin Xl) 150 mg PO DAILY [facility] Famotidine (Pepcid) 20 mg IVP DAILY [facility] Last Admin: 06/19/16 09:54 Dose: 20 mg Folic Acid (Folic Acid) 1 mg PO DAILY [facility] Last Admin: 06/19/16 09:54 Dose: 1 mg Potassium Chloride (Potassium Chloride 20 Meq/100 Ml) 20 meq in 100 mls @ 50 mls/hr IVPB Q1H [place] Stop: 06/19/16 10:44 Last Admin: 06/19/16 09:53 Dose: 50 mls/hr Magnesium Sulfate 2 gm/ Sodium (Chloride) 104 mls @ 102 mls/hr IVPB ONCE ONE Stop: 06/19/16 10:45 Lorazepam (Ativan) 2 mg IVP Q3H PRN; Protocol PRN Reason: Agitation Lorazepam (Ativan) 2 mg IVP Q6H [place] PRN Reason: Protocol Last Admin: 06/19/16 05:12 Dose: 2 mg Mirtazapine (Remeron) 45 mg PO HS [facility] Last Admin: 06/18/16 21:51 Dose: 45 mg Multivitamins/Minerals (Therapeutic-M Tab) 1 tab PO DAILY [facility] Last Admin: 06/19/16 09:54 Dose: 1 tab Thiamine HCl (Vitamin B1 Tab) 50 mg PO DAILY [facility] Last Admin: 06/19/16 09:55 Dose: 50 mg - Labs Labs: 06/19/16 06:40 06/19/16 06:40 PT 13.1 Seconds (9.9-11.8) H 06/18/16 15:20 INR 1.21 (0.93-1.08) H 06/18/16 15:20 APTT 24.3 Seconds (23.7-30.8) 06/18/16 15:20 - Constitutional Appears: No Acute Distress - Head Exam Head Exam: NORMOCEPHALIC - ENT Exam ENT Exam: Mucous Membranes Moist - Respiratory Exam Respiratory Exam: NORMAL BREATHING PATTERN - Cardiovascular Exam Cardiovascular Exam: +S1, +S2 - GI/Abdominal Exam GI & Abdominal Exam: Soft. absent: Distended, Firm, Guarding, Rigid, Tenderness - Neurological Exam Neurological Exam: Alert, Awake, Oriented x3 - Psychiatric Exam Psychiatric exam: Depressed - Skin Skin Exam: Dry, Warm Assessment and Plan - Assessment and Plan (Free Text) Assessment: 55 yo M, w/ PMHx of ETOH abuse, alcohol withdrawal seizures, esophageal varices , liver cirrhosis and hypertension, presents after waking up from LOC and possibly having a seizure after drinking unknown quantity of ETOH the night prior. Plan: ETOH withdrawal: Banana bag 100cc hr ativan prn, [place] CIWA Elevated liver enzymes: abdominal U/S GI on board, recs appreciated Pancytopenia likely due to alcohol myelosuppression F/u HIV status LFTs downtrending syncope/Questionable seizure: Neurology consult, help appreciated Cardiology consult, help appreciated F/u Echo D/C telemetry Hypokalemia: Today 3.0, will replete prn Will continue to monitor Hypomagnsaemia: -Today 1.6, will replete PPX: pepcid, scd <Zoe GALLEGOS,Antoinecave springneto - Last Filed: 06/20/16 11:46> Objective - Vital Signs/Intake and Output Vital Signs (last 24 hours): Temp Pulse Resp BP Pulse Ox 98.2 F 80 20 129/88 97 06/19/16 18:15 06/19/16 18:15 06/19/16 18:15 06/19/16 18:15 06/19/16 18:15 Intake and Output: 06/20/16 06/20/16 06:59 18:59 Intake Total 540 Balance 540 - Labs Labs: 06/19/16 06:40 06/19/16 06:40 PT 13.1 Seconds (9.9-11.8) H 06/18/16 15:20 INR 1.21 (0.93-1.08) H 06/18/16 15:20 APTT 24.3 Seconds (23.7-30.8) 06/18/16 15:20 Attending/Attestation - Attestation I have personally seen and examined this patient.: Yes I have fully participated in the care of the patient.: Yes I have reviewed all pertinent clinical information, including history, physical exam and plan: Yes Notes (Text): 06/20/16 11:44 Patient was seen and examined with medical aides teacher .Agreed with resident assessment and plan. 55 yo M, w/ PMHx of ETOH abuse, alcohol withdrawal seizures, esophageal varices , liver cirrhosis and hypertension is admitted with alcohol withdrawal, will continue monitoring with CIWA protocoal.The issue of ongoing alcohol abuse was discussed in detail with patient. Prognosis is guarded due to non compliance and ongoing alcohol abuse. Management plan was discussed in detail with patient Education was provided.
--- NOTE | 2016-06-19 11:53 | CARD ---
APPROVED REPORT EKG Measurement Heart [id number] <Conclusion> Normal sinus rhythm ST & T wave abnormality c/w ischemia, new Prolonged QT, new
[2016-06-19] MEDS ORDERED: Metoprolol Succinate 25 mg XL Tab PO SCH (12:09)
[2016-06-19 12:54] VITALS: TEMP 98.2
[2016-06-19] MEDS ORDERED: Potassium Chloride 20 mEq ER Tab PO ONE (14:00)
--- NOTE | 2016-06-19 14:27 | CON ---
DATE: 06/19/2016 REASON FOR CONSULTATION: Abnormal EKG, alcohol abuse, seizure disorder. BRIEF CLINICAL HISTORY: A 55-year-old male with a past medical history significant for alcohol abuse , alcohol withdrawal seizure, cirrhosis, hypertension, esophageal varices, who admitted after having a seizure episode and loss of consciousness and banged his head, forehead, during the seizure. Denie s any chest pain, shortness of breath, any palpitation. Recently admitted in 04/2016 for GI bleed and alcohol intoxication. This time, on admission, alcohol level was less than 10 and phenytoin level w as less than 3. PAST MEDICAL HISTORY: Significant for alcohol abuse, GI bleed, history of alcohol withdrawal seizure , esophageal varices, cirrhosis, hypertension. PAST SURGICAL HISTORY: Significant for colonic polypectomy 02/2015, banding of varices at that time a lso secondary to, for GI bleed. SOCIAL HISTORY: Used to smoke a pack to 2 for 40 years. History of alcohol abuse. Still, patient a ctively abuses alcohol and prior tonight coming here, consumed alcohol of unknown quantity. History of substance abuse, heroin, in the past, but quit using substance abuse now. ALLERGIES: SULFA AND PSEUDOEPHEDRINE. CURRENT MEDICATIONS: Wellbutrin, thiamine, Remeron and Ativan. ALLERGIES: ALLERGY TO PSEUDOEPHEDRINE, SULFA AND PENICILLIN. FAMILY HISTORY: Father of liver cancer. Mother of breast cancer. Sister has a brain aneu rysm. REVIEW OF SYSTEMS: As per HPI. Denies any chest pain, palpitation or shortness of breath. REVIEW OF SYSTEMS: As per HPI. History of alcohol abuse and multiple admissions in 2013 and 2014 wi th alcoholic intoxication, blood alcohol level more than 200. Previous EKG shows normal sinus, nonspecific ST-T changes in 2013, 05/10/2013 and 11/20/[address]-T changes noted, but in 2014 also shows T-wave inversion in 01/24/2015. PHYSICAL EXAMINATION: VITAL SIGNS: Temperature afebrile, heart rate 71, blood pressure 120/78. HEENT: PERRLA. Extraocular muscles intact. NECK: Supple. No carotid bruits. No thyromegaly. CHEST: Clear to auscultation. HEART: S1, S2 regular. ABDOMEN: Soft. EXTREMITIES: Clubbing, cyanosis negative. BLOOD WORKUP: WBC 1.9, hemoglobin 10.2, hematocrit 30.0, platelet count 48. Sodium , potassium 3, chloride 90, carbon dioxide 34, anion gap of 8, BUN 12, creatinine 0.9. Troponin 0.1, 0.3 x 3 ne gative. EKG shows normal sinus with T-wave inversion in V2, V3. IMPRESSION: Abnormal EKG, so far no evidence of acute myocardial infarction, history of alcoholic in toxication, history of seizure disorder secondary to alcohol abuse, history of multiple admissions wi th alcoholic intoxication. RECOMMENDATION: We will get echo to assess left ventricular function. Continue supplement, aggressi ve supplement potassium and continue vitamin and thiamine. When the patient becomes sober, con marketing analytics analyst stress test because of abnormal EKG. We will follow with you. Thank you, Dr. Bingham, for providing us the opportunity in taking care of the patient. We will follow with you. Jacob Enrst MD cc: [id number] TT: 06/19/2016 12:45:33 Confirmation # [id number] Dictation # [id number]
[2016-06-19] MEDS ORDERED: Magnesium Oxide 400 mg Tab UD PO SCH (18:00)
--- NOTE | 2016-06-19 18:07 | CON ---
DATE: 06/19/2016 CHIEF COMPLAINT: Questionable history of seizures. HISTORY OF PRESENT ILLNESS: A 55-year-old man with past medical history of ETOH abuse, alcohol withd sera seizures, esophageal varices, liver cirrhosis, hypertension who presented after waking of lost consciousness, possible questionable had a seizure, had been drinking unknown quantity of alcohol the night before and was combative in the EMR. Currently, the patient is mildly tremulous, but otherwis e in no acute distress, follows simple commands. GI is on board for his underlying alcoholic hepatit is as well as cardiology for his abnormal EKG, recommended an echo and a possible stress test. Curre ntly, no seizure activity while he has been in the hospital. He is on Ativan p.r.n. as well as [place] on for his behaviors as well as to help with sleep and B1, multivitamins. He is on Wellbutrin for hi story of depression. Follows commands. No acute events overnight. CT head showed no acute intracra nial abnormalities, there are chronic microvascular ischemic changes. He has elevated LFTs, which ar e chronic nature, from chronic drinking as well as pancytopenia for chronic alcoholic hepatitis. Cu rrently, he is moving all extremities without any difficulty. PAST MEDICAL HISTORY: History of ETOH abuse, alcohol withdrawal seizures, history of esophageal vari quita, liver cirrhosis, hypertension. PAST SURGICAL HISTORY: Colonic polyps, 4 removed in 02/2015, banding of varices. FAMILY HISTORY: Father of liver cancer. Mother of breast cancer. Sister had a brain aneu rysm. SOCIAL HISTORY: Recently smokes pack per day for the past 40 years. Still drinks. He is very vague about how much he drinks, but on his report his drinking is as high as 2 pints per day. He has done heroin in the past, but no longer. ALLERGIES: PSEUDOEPHEDRINE, SULFA. MEDICATIONS: We put him on Remeron. REVIEW OF SYSTEMS: A 14-point review of systems is negative except in HPI. PHYSICAL EXAMINATION: VITAL SIGNS: Temperature 98.2, pulse rate of 86, blood pressure 151/91, respiratory rate of 18, oxyg en 95% on room air. GENERAL: The patient is sitting up in bed in no acute distress. HEENT: Atraumatic, normocephalic. PERRLA. Extraocular muscles intact. NECK: Supple, no JVD, no adenopathy noted. LUNGS: Clear to auscultation. No adventitious sounds. HEART: S1, S2, normal rate and rhythm. No murmurs, rubs, or gallops. ABDOMEN: Soft, nontender, nondistended. Bowel sounds are present. EXTREMITIES: No clubbing, no cyanosis. Peripheral pulses 2+ felt bilaterally. NEUROLOGIC: The patient is alert, oriented to person, place, month and year. Speech is fluent, with out any errors. Recall after 5 minutes is 0/3. Poor attention span, poor thought process. Cranial nerves II through XII are intact. MOTOR EXAM: Moves all extremities equally, no pronator drift seen. SENSORY: Decreased light touch to pinprick, has bilaterally decreased vibration of the toes. DTRs a re 1+ throughout and absent at the ankles. COORDINATION: [id number] intact. Mildly tremulous in the hands. Gait is deferred for now. LABORATORY DATA: Sodium 137, potassium 3, chloride 98, carbon dioxide 34, BUN of 12, creatinine 0.9, random glucose of 85. ASSESSMENT AND PLAN: This is a 55-year-old man with past medical history of ETOH abuse, alcohol with drawal seizures, history of esophageal varices, liver cirrhosis, hypertension, history of banding pro cedure presented with waking up from loss of consciousness, possibly had a questionable seizure. He still drinks unknown amount of alcohol daily. He also binge drinks and suddenly stops. He has evide nce of likely he possibly had a questionable syncopal, vasovagal event from possible overuse of alcoh ol with question of alcohol withdrawal seizure. No need for any AEDs at this time. He has evidence of alcoholic hepatitis. GI is on board and pancytopenia is likely secondary to chronic alcohol abuse . At this time recommend continue CIWA protocol, Ativan p.r.n., banana bag and monitor electrolytes and correct accordingly. Follow up with GI's recommendation in regards to his liver, elevated transa minases. At this time, continue with current present medical management. No further neurological wo rk needed at this time, I will sign off. Mukesh Page MD cc: [id number] TT: 06/19/2016 18:05:54 Confirmation # [id number] Dictation # [id number]
[2016-06-19 19:38] VITALS: BP 129/88; PULSE 80; RESP 20; O2SAT 97
--- NOTE | 2016-06-20 01:38 | CARD ---
APPROVED REPORT EXAM: Two-dimensional and M-mode echocardiogram with Doppler and color Doppler. 2D DIMENSIONS Left Atrium (2D)3.6 (1.6-4.0cm)IVSd1.1 (0.7-1.1cm) LVDd5.1 (3.9-5.9cm)PWd1.1 (0.7-1.1cm) LVDs3.2 (2.5-4.0cm)FS (%) 37.1 % LVEF (%)66.7 (>50%) M-Mode DIMENSIONS Left Atrium (MM)4.30 (2.5-4.0cm)Aortic Root3.70 (2.2-3.7cm) Aortic Cusp Exc.2.50 (1.5-2.0cm) Aortic Valve AoV Peak Wemgzizk270.0cm/sAoV VTI23.3cmAO Peak GR.5mmHg AO Mean GR.4mmHg Mitral Valve MV E Jdmkaeik20.4cm/sMV A Nyzbospx96.5cm/sE/A ratio0.6 TDI Lateral E' Peak V9.04cm/sMedial E' Peak V4.87cm/sE/Lateral E'5.4 E/Medial E'9.9 Tricuspid Valve TR Peak Qekcpyfz562au/sRAP [id number] Peak Gr.23mmHg [id number] LEFT VENTRICLE The left ventricle is normal size. There is borderline concentric left ventricular hypertrophy. The left ventricular function is normal. The left ventricular ejection fraction is within the normal range. There is normal LV segmental wall motion. Transmitral Doppler flow pattern is Grade I-abnormal relaxation pattern. RIGHT VENTRICLE The right ventricle is normal size. There is normal right ventricular wall thickness. The right ventricular systolic function is normal. ATRIA The left atrium size is normal. The right atrium size is normal. AORTIC VALVE The aortic valve is normal in structure. There is trace to mild aortic regurgitation. MITRAL VALVE The mitral valve is normal in structure. TRICUSPID VALVE There is trace tricuspid regurgitation. GREAT VESSELS The aortic root is normal in size. The IVC is normal in size and collapses >50% with inspiration. <Conclusion> The left ventricle is normal size. There is borderline concentric left ventricular hypertrophy. The left ventricular function is normal. The left ventricular ejection fraction is within the normal range. There is normal LV segmental wall motion. Transmitral Doppler flow pattern is Grade I-abnormal relaxation pattern. There is trace to mild aortic regurgitation. There is trace tricuspid regurgitation.
--- NOTE | 2016-06-20 13:30 | CP.PCM.DIS ---
Provider - Provider Date of Admission: 06/18/16 17:08 Attending physician: Jacob Enriquez MD Primary care physician: NO PRIMARY CARE PROVIDER Time Spent in preparation of Discharge (in minutes): 20 Hospital Course - Lab Results Lab Results: Micro Results 06/19/16 08:16 Blood Blood Culture - Preliminary NO GROWTH AFTER 24 HOURS 06/19/16 07:47 Blood Blood Culture - Preliminary NO GROWTH AFTER 24 HOURS Most Recent Lab Values WBC 1.9 10^3/ul (4.5-11.0) L* 06/19/16 06:40 RBC 3.25 10^6/uL (3.5-6.1) L 06/19/16 06:40 Hgb 10.2 gm/dL (14.0-18.0) L 06/19/16 06:40 Hct 30.0 % (42.0-52.0) L 06/19/16 06:40 MCV 92.3 fL (80.0-105.0) 06/19/16 06:40 MCH 31.4 pg (25.0-35.0) 06/19/16 06:40 MCHC 34.0 g/dl (31.0-37.0) 06/19/16 06:40 RDW 13.7 % (11.5-14.5) 06/19/16 06:40 Plt Count 48 10^3/uL (120.0-450.0) L* 06/19/16 06:40 MPV 12.7 fl (7.0-11.0) H 06/19/16 06:40 Gran % 34.4 % (50.0-68.0) L 06/19/16 06:40 Lymph % (Auto) 58.2 % (22.0-35.0) H 06/19/16 06:40 [place] % (Auto) 6.9 % (1.0-6.0) H 06/19/16 06:40 Eos % (Auto) 0.5 % (1.5-5.0) L 06/19/16 06:40 Baso % (Auto) 0.0 % (0.0-3.0) 06/19/16 06:40 Gran # 0.65 (1.4-6.5) L 06/19/16 06:40 Lymph # 1.1 (1.2-3.4) L 06/19/16 06:40 [place] # 0.1 (0.1-0.6) 06/19/16 06:40 Eos # 0.0 (0.0-0.7) 06/19/16 06:40 Baso # 0.00 K/mm3 (0.0-2.0) 06/19/16 06:40 PT 13.1 Seconds (9.9-11.8) H 06/18/16 15:20 INR 1.21 (0.93-1.08) H 06/18/16 15:20 APTT 24.3 Seconds (23.7-30.8) 06/18/16 15:20 Sodium 137 mmol/L (132-148) 06/19/16 06:40 Potassium 3.0 mmol/L (3.6-5.0) L 06/19/16 06:40 Chloride 98 mmol/L (98-107) 06/19/16 06:40 Carbon Dioxide 34 mmol/L (21-33) H 06/19/16 06:40 Anion Gap 8 (10-20) L 06/19/16 06:40 BUN 12 mg/dL (7-21) 06/19/16 06:40 Creatinine 0.9 mg/dL (0.5-1.4) 06/19/16 06:40 Est GFR ( Amer) > 60 06/19/16 06:40 Est GFR (Non-Af Amer) > 60 06/19/16 06:40 Random Glucose 85 mg/dL (70-110) 06/19/16 06:40 Calcium 8.1 mg/dL (8.4-10.5) L 06/19/16 06:40 Phosphorus 2.5 mg/dL (2.5-4.5) 06/19/16 06:40 Magnesium 1.6 mg/dL (1.7-2.2) L 06/19/16 06:40 Total Bilirubin 4.0 mg/dL (0.2-1.3) H 06/19/16 06:40 AST 235 U/L (15-59) H 06/19/16 06:40 ALT 118 U/L (7-56) H 06/19/16 06:40 Alkaline Phosphatase 80 U/L (38-133) 06/19/16 06:40 Lactate Dehydrogenase 517 U/L (333-699) 06/19/16 06:40 Total Creatine Kinase 80 U/L (35-230) 06/19/16 06:40 Troponin I 0.04 ng/mL D 06/19/16 06:40 Total Protein 5.8 g/dL (5.8-8.3) 06/19/16 06:40 Albumin 3.2 g/dL (3.0-4.8) 06/19/16 06:40 Globulin 2.6 gm/dL 06/19/16 06:40 Albumin/Globulin Ratio 1.2 (1.1-1.8) 06/19/16 06:40 Triglycerides 104 mg/dL (35-160) 06/19/16 06:40 Cholesterol 140 mg/dL (130-200) 06/19/16 06:40 LDL Cholesterol Direct 66 mg/dL (0-129) 06/19/16 06:40 HDL Cholesterol 66 mg/dL (29-60) H 06/19/16 06:40 Lipase 129 U/L (23-300) 06/18/16 15:20 Urine Color Yellow (YELLOW) 06/19/16 02:35 Urine Appearance Sl cloudy (CLEAR) 06/19/16 02:35 Urine pH 7.0 (4.7-8.0) 06/19/16 02:35 Ur Specific [place] 1.010 (1.005-1.035) 06/19/16 02:35 Urine Protein Negative mg/dL (<30 mg/dL) 06/19/16 02:35 Urine Glucose (UA) Negative mg/dL (NEGATIVE) 06/19/16 02:35 Urine Ketones Negative mg/dL (NEGATIVE) 06/19/16 02:35 Urine Blood Trace-lysed (NEGATIVE) H 06/19/16 02:35 Urine Nitrate Negative (NEGATIVE) 06/19/16 02:35 Urine Bilirubin Negative (NEGATIVE) 06/19/16 02:35 Urine Urobilinogen 4.0 E.U./dL (<1 E.U./dL) H 06/19/16 02:35 Ur Leukocyte Esterase Negative Anthony/uL (NEGATIVE) 06/19/16 02:35 Urine RBC 0 - 2 /hpf (0-2) 06/19/16 02:35 Urine WBC 0 - 2 /hpf (0-6) 06/19/16 02:35 Ur Epithelial Cells 0 - 2 /hpf (0-5) 06/19/16 02:35 Urine Bacteria Occ (NEG) 06/19/16 02:35 Urine Opiates Screen Negative (NEGATIVE) 06/19/16 02:35 Urine Methadone Screen Negative (NEGATIVE) 06/19/16 02:35 Ur Barbiturates Screen Negative (NEGATIVE) 06/19/16 02:35 Phenytoin < 3 ug/mL (10-20) L 06/18/16 15:20 Ur Phencyclidine Scrn Negative (NEGATIVE) 06/19/16 02:35 Ur Amphetamines Screen Negative (NEGATIVE) 06/19/16 02:35 U Benzodiazepines Scrn Negative (NEGATIVE) 06/19/16 02:35 U Oth Cocaine Metabols Negative (NEGATIVE) 06/19/16 02:35 U Cannabinoids Screen Negative (NEGATIVE) 06/19/16 02:35 Alcohol, Quantitative < 10 mg/dL (0-10) 06/18/16 15:20 HIV 1&2 Ag/Ab, 4th Gen Nonreactive (Nonreactive) 06/19/16 06:00 - Hospital Course Hospital Course: 06/18: 55 yo M, w/ PMHx of ETOH abuse, alcohol withdrawal seizures, esophageal varices, liver cirrhosis and hypertension, presents after waking up from LOC and possibly having a seizure after drinking unknown quanitity of ETOH the night prior. Patient was combative in the field, per EMS. Pt reports alcohol consumption the night before but is vague about what alcohol and amount. Denies fever, chills, headache, focal weakness, chest pain, shortness of breath , abdominal pain, nausea, vomiting, urinary or BM complaints. Recent admission in 04/2016 for GI bleed and ETOH intoxication. 06/19: GI consulted. GI saw and assessed patient. Recommended EtOH cessation, medical management for EtOH w/drawal. Suspected elevated LFTs 2/2 alcohol hepatitis. Also recommended HIV screening due to patient's leukopenia and history of heroin abuse. Patient's pancytopenia attributed to myelosuppression 2 /2 EtOH use. Encouraged outpatient GI f/u. Estimated MELD score of 17 and MDF of 18, at this time corticosteroid therapy not indicated. Echocardiogram demonstrated EF of 66%. Abd U/S noticed GB polyp measuring 5mm, monitoring at 3, 6,12 months indicated. Patient was made aware of findings. Patient counseled on EtOH cessation. Patient decided to sign out AMA. Risks were thoroughly explained to patient and he still decided to sign out against medical advice. Patient still educated on risks of his on going alcohol use and encouraged he follow up with primary care doctor as well as GI specialist. Discharge Exam - Head Exam Head Exam: NORMOCEPHALIC Discharge Plan - Follow Up Plan Condition: FAIR Disposition: AGAINST MEDICAL ADVICE Referrals: PCP,NO [Primary Care Provider] -
== END 2016-06-19 19:55 | disposition left against medical advice (07) | DRG 749 ==
LOC: ED 14:59 → ERH 17:08 → OBSVTOIN 17:08 → ERH 18:26 → 2RSO 19:03 → 5RNO 06-19 18:18
PROVIDERS: ADMIT Internal Medicine; ATTEND Internal Medicine
DX: F10.239 Alcohol dependence with withdrawal, unspecified (principal); D61.818 Other pancytopenia; I85.00 Esophageal varices without bleeding; K70.30 Alcoholic cirrhosis of liver without ascites; B18.2 Chronic viral hepatitis C; K70.11 Alcoholic hepatitis with ascites; G40.909 Epilepsy, unspecified, not intractable, without status epilepticus; F17.210 Nicotine dependence, cigarettes, uncomplicated; I10 Essential (primary) hypertension; K27.9 Peptic ulcer, site unspecified, unspecified as acute or chronic, without hemorrhage or perforation; Z80.0 Family history of malignant neoplasm of digestive organs; Z80.3 Family history of malignant neoplasm of breast; Z86.010 Personal history of colon polyps; Z87.11 Personal history of peptic ulcer disease; Z91.19 Patient's noncompliance with other medical treatment and regimen; Z88.2 Allergy status to sulfonamides; Z88.8 Allergy status to other drugs, medicaments and biological substances; R00.0 Tachycardia, unspecified; R40.2412 Glasgow coma scale score 13-15, at arrival to emergency department; R74.8 Abnormal levels of other serum enzymes; Z87.898 Personal history of other specified conditions; F32.89 Other specified depressive episodes; R94.31 Abnormal electrocardiogram [ECG] [EKG]

== ENCOUNTER 2016-07-25 19:32 | Inpatient (IN) | payer MEDICAID, OTHER ==
[2016-07-25] MEDS ORDERED: Pantoprazole 40 MG in Sodium Chloride 0.9% 100 ML IV STA (20:18)
[2016-07-25] MEDS ORDERED: Sodium Chloride 0.9% 1,000 ML IV ONE (20:20)
[2016-07-25 21:14] LABS: ADD MANUAL DIFF? NO
[2016-07-25 21:16] LABS: EOS % 0.7 % (1.5-5.0); GRAN # 1.59 (1.4-6.5); GRAN % 57.4 % (50.0-68.0); HEMATOCRIT 29.6 % (42.0-52.0); LYMPH % 34.7 % (22.0-35.0); MEAN CELL VOLUME 92.8 fL (80.0-105.0); MEAN CORPUSCULAR HEMOGLOBIN 32.3 pg (25.0-35.0); MEAN CORPUSCULAR HGB CONC 34.8 g/dl (31.0-37.0); MEAN PLATELET VOLUME 10.7 fl (7.0-11.0); MONO # 0.2 (0.1-0.6); MONO % 7.2 % (1.0-6.0); PLATELET COUNT 88 10^3/uL (120.0-450.0); RED CELL DISTRIBUTION WIDTH 13.8 % (11.5-14.5)
[2016-07-25 21:23] LABS: WHITE BLOOD COUNT 2.8 10^3/ul (4.5-11.0)
[2016-07-25 21:30] LABS: INR 1.32 (0.93-1.08); PARTIAL THROMBOPLASTIN TIME 23.8 Seconds (23.7-30.8)
[2016-07-25 21:35] LABS: ALB/GLOB RATIO 1.2 (1.1-1.8); ALKALINE PHOSPHATASE 120 U/L (38-133); ALT/SGPT 74 U/L (7-56); AMYLASE 37 U/L (35-125); AST/SGOT 139 U/L (15-59); BILIRUBIN,TOTAL 1.9 mg/dL (0.2-1.3); BLOOD UREA NITROGEN 14 mg/dL (7-21); CALCIUM 8.1 mg/dL (8.4-10.5); CARBON DIOXIDE 26 mmol/L (21-33); CHLORIDE 104 mmol/L (98-107); GFR AFRICAN-AMERICAN > 60; GLUCOSE,RANDOM 101 mg/dL (70-110); LIPASE 321 U/L (23-300); SODIUM 140 mmol/L (132-148); TOTAL PROTEIN 5.5 g/dL (5.8-8.3)
[2016-07-25 22:08] LABS: TROPONIN I < 0.01 ng/mL
[2016-07-25 22:09] LABS: POTASSIUM 2.5 mmol/L (3.6-5.0)
[2016-07-25] MEDS ORDERED: Magnesium Sulfate 1 gm in D5W 1 GM/100 ML BAG IVPB ONE (22:12)
--- NOTE | 2016-07-25 23:45 | ED PDOC ---
Arrival/HPI - General Historian: Patient <Roberto Durbin A - Last Filed: 07/26/16 01:22> <Kurt Berg - Last Filed: 07/26/16 07:40> <Telly Montes - Last Filed: 07/27/16 01:02> - General Chief Complaint: Lower Extremity Problem/Injury Time Seen by Provider: 07/25/16 19:54 - History of Present Illness Narrative History of Present Illness (Text): 07/25/16 23:41 55yo male with history of alcohol abuse who present with complaint of RUQ abdominal pain with associated nausea, vomiting and diarrhea x 3days. Also c/o b /l lower leg rash and pain x 3days. He denies fever, chills, chest pain, SOB, hematemesis, melena, hematochezia. States his girlfriend washed his clothes with bleach and he thinks it cause the rash. He notes that he never use bleach for his clothes. Denies any other inciting factors. (Roberto Durbin A) Past Medical History - Provider Review Nursing Documentation Reviewed: Yes - Past History Past History: Non-Contributing - Infectious Disease Hx of Infectious Diseases: None - Tetanus Immunization Tetanus Immunization: Unknown - Cardiac Hx Cardiac Disorders: No - Pulmonary Hx Respiratory Disorders: No Other/Comment: Active smoker - Neurological Hx Neurological Disorder: Yes Hx Seizures: Yes - HEENT Hx HEENT Disorder: Yes (eyeglasses) - Renal Hx Renal Disorder: No - Endocrine/Metabolic Hx Endocrine Disorders: No - Hematological/Oncological Hx Blood Disorders: No - Integumentary Hx Dermatological Disorder: No - Musculoskeletal/Rheumatological Hx Falls: No - Gastrointestinal Hx Gastrointestinal Disorders: Yes Other/Comment: Liver Dx, esophogeal varices, - Genitourinary/Gynecological Hx Genitourinary Disorders: No - Psychiatric Hx Depression: Yes Hx Substance Use: No - Surgical History Other/Comment: s/p banding of varices x2. endoscopy - Anesthesia Hx Anesthesia: Yes Hx Anesthesia Reactions: No Hx Malignant Hyperthermia: No - Suicidal Assessment Feels Threatened In Home Enviroment: No <Roberto Durbin A - Last Filed: 07/26/16 01:22> Family/Social History - Physician Review Nursing Documentation Reviewed: Yes Family/Social History: Unknown Family HX Smoking Status: Heavy Smoker > 10 Cigarettes Daily Hx Alcohol Use: Yes (vodka and beer) Frequency of alcohol use: Socially Hx Substance Use: No Hx Substance Use Treatment: No <Roberto Durbin - Last Filed: 07/26/16 01:22> Allergies/Home Meds <Roberto Durbin A - Last Filed: 07/26/16 01:22> <Kurt Berg - Last Filed: 07/26/16 07:40> <Telly Montes - Last Filed: 07/27/16 01:02> Allergies/Adverse Reactions: Allergies pseudoephedrine HCl [From Sudafed] Allergy (Mild, Verified 07/25/16 19:45) NAUSEA Sulfa (Sulfonamide Antibiotics) Allergy (Mild, Verified 07/25/16 19:45) ANGIOEDEMA Penicillins Adverse Reaction (Verified 07/25/16 19:45) Anxiety Review of Systems - Physician Review All systems were reviewed & negative as marked: Yes - Review of Systems Constitutional: Normal Eyes: Normal ENT: Normal Respiratory: Normal Cardiovascular: Normal Gastrointestinal: Abdominal Pain, Diarrhea, Nausea, Food Intolerance. absent: Constipation, Hematochezia, Hematemesis Genitourinary Male: Normal Musculoskeletal: Arthralgias (LEg pain) Skin: Rash, Pruritis Neurological: Normal Endocrine: Normal Hemo/Lymphatic: Normal Psychiatric: Normal <Roberto Durbin A - Last Filed: 07/26/16 01:22> Physical Exam Vital Signs Reviewed: Yes Temperature: Afebrile Blood Pressure: Normal Pulse: Regular Respiratory Rate: Normal Appearance: Positive for: Well-Appearing, Non-Toxic, Comfortable Pain Distress: None Mental Status: Positive for: Alert and Oriented X 3 - Systems Exam Head: Present: Atraumatic, Normocephalic Pupils: Present: PERRL Extroacular Muscles: Present: EOMI Conjunctiva: Present: Normal Mouth: Present: Moist Mucous Membranes Neck: Present: Normal Range of Motion Respiratory/Chest: Present: Clear to Auscultation, Good Air Exchange. No: Respiratory Distress, Accessory Muscle Use Cardiovascular: Present: Regular Rate and Rhythm, Normal S1, S2. No: Murmurs Abdomen: Present: Tenderness (RUQ ), Normal Bowel Sounds, Other (soft). No: Distention, Peritoneal Signs, Rebound, Guarding, McBurney's Point Tender, Rovsing's Sign Present Back: Present: Normal Inspection Upper Extremity: Present: Normal Inspection. No: Cyanosis, Edema Lower Extremity: Present: Edema (2+ bipedal pitting edema), NORMAL PULSES, Normal ROM, Neurovascularly Intact. No: CALF TENDERNESS, Tenderness, Temperature Abnormalties Neurological: Present: GCS=15, CN II-XII Intact, Speech Normal Skin: Present: Warm, Dry, Rashes (Erythematous blanching papular rash noted on b /l LE), Normal Color Psychiatric: Present: Alert, Oriented x 3, Normal Insight, Normal Concentration <Diru,Happiness A - Last Filed: 07/26/16 01:22> Medical Decision Making <Diru,Happiness A - Last Filed: 07/26/16 01:22> <Kurt Berg - Last Filed: 07/26/16 07:40> <Telly Montes - Last Filed: 07/27/16 01:02> ED Course and Treatment: 07/26/16 01:32 Pt was comfortable in ED. He was hypokalemic and have elevated LFT likely secondary to alcohol abuse. Potassium was repleted in ED. Pt sleeping comfortably in ED. Plan is to repeat potassium level and if WNL refer pt to a Ship'S Surveyor. Case endorsed to Dr. Montes to f/u and dispo. EKG NSR with nonspecific Twave abnormality @ 81bpm. No ST changes (Diru,Happiness A) - Lab Interpretations Lab Results: 07/25/16 21:05 07/25/16 21:05 Lab Results 07/25/16 21:20: Lactic Acid 2.8 H 07/25/16 21:05: Sodium 140, Potassium 2.5 L*, Chloride 104, Carbon Dioxide 26, Anion Gap 13, BUN 14, Creatinine 0.9, Est GFR ( Amer) > 60, Est GFR (Non- Af Amer) > 60, Random Glucose 101, Calcium 8.1 L, Total Bilirubin 1.9 H, AST 139 H, ALT 74 H, Alkaline Phosphatase 120, Lactate Dehydrogenase 486, Total Creatine Kinase 36, Troponin I < 0.01 D, Total Protein 5.5 L, Albumin 2.9 L, Globulin 2.5, Albumin/Globulin Ratio 1.2, Amylase 37, Lipase 321 H 07/25/16 21:05: PT 14.3 H, INR 1.32 H, APTT 23.8 07/25/16 21:05: WBC 2.8 L* D, RBC 3.19 L, Hgb 10.3 L, Hct 29.6 L, MCV 92.8, MCH 32.3, MCHC 34.8, RDW 13.8, Plt Count 88 L, MPV 10.7, Gran % 57.4, Lymph % (Auto ) 34.7, [place] % (Auto) 7.2 H, Eos % (Auto) 0.7 L, Baso % (Auto) 0.0, Gran # 1.59 , Lymph # 1.0 L, [place] # 0.2, Eos # 0.0, Baso # 0.00 - Medication Orders Current Medication Orders: Doxycycline Hyclate (Doryx) 100 mg PO Q12 TONI PRN Reason: Protocol Last Admin: 07/26/16 18:30 Dose: 100 mg Famotidine (Pepcid) 40 mg PO HS TONI Ceftriaxone Sodium (Rocephin 1 Gram Ivpb) 1 gm in 100 mls @ 100 mls/hr IVPB DAILY TONI PRN Reason: Protocol Last Admin: 07/26/16 18:30 Dose: 100 mls/hr Lorazepam (Ativan) 2 mg IV Q3H PRN; Protocol PRN Reason: Agitation Last Admin: 07/26/16 10:10 Dose: 2 mg Re-Assess: Reassess Psych Meds Document 07/26/16 10:40 [facility] (Rec: 07/26/16 18:19 [facility] [id number]) Reassess Psych Med Effective Lorazepam (Ativan) 2 mg IVP Q6H TONI PRN Reason: Protocol Last Admin: 07/27/16 00:28 Dose: 2 mg Thiamine HCl (Vitamin B1 Tab) 100 mg PO DAILY TONI Last Admin: 07/26/16 10:03 Dose: 100 mg Vitamin B Complex/Vit C/Folic Acid (Nephro-Mariann) 1 tab PO 0800 TONI Discontinued Medications Pantoprazole Sodium 40 mg/ (Sodium Chloride) 100 mls @ 400 mls/hr IV STAT STA Stop: 07/25/16 20:32 Last Admin: 07/25/16 21:11 Dose: 400 mls/hr Sodium Chloride (Sodium Chloride 0.9%) 1,000 mls @ 250 mls/hr IV .Q4H ONE Stop: 07/26/16 00:19 Last Admin: 07/25/16 21:11 Dose: 250 mls/hr Magnesium Sulfate/Dextrose (Magnesium Sulfate 1 Gm/100 Ml D5w) 1 gm in 100 mls @ 100 mls/hr IVPB ONCE ONE Stop: 07/25/16 23:11 Last Admin: 07/25/16 22:49 Dose: 100 mls/hr Potassium Chloride (Potassium Chloride 20 Meq/100 Ml) 20 meq in 100 mls @ 50 mls/hr IVPB ONCE STA Stop: 07/26/16 00:10 Last Admin: 07/25/16 22:49 Dose: 50 mls/hr Potassium Chloride (Potassium Chloride 20 Meq/100 Ml) 20 meq in 100 mls @ 50 mls/hr IVPB Q2H TONI Stop: 07/26/16 07:44 Last Admin: 07/26/16 06:20 Dose: 50 mls/hr Multivitamins/Vitamin C 10 ml/Thiamine HCl 100 mg/ Folic Acid 1 mg/ Sodium Chloride 1,011.2 mls @ 100 mls/hr IV .Q10H7M ONE Stop: 07/26/16 19:10 Last Admin: 07/26/16 10:04 Dose: 100 mls/hr Magnesium Sulfate 2 gm/ Sodium (Chloride) 104 mls @ 102 mls/hr IVPB ONCE ONE Stop: 07/26/16 11:39 Last Admin: 07/26/16 11:24 Dose: 102 mls/hr Ondansetron HCl (Zofran Inj) 4 mg IVP STAT STA Stop: 07/25/16 20:19 Last Admin: 07/25/16 21:11 Dose: 4 mg Pneumococcal Polyvalent Vaccine (Pneumovax 23 Vaccine) 0.5 ml IM .ONCE ONE Stop: 07/26/16 13:19 Potassium Chloride (K-Dur 20 Meq Er Tab) 40 meq PO ONCE ONE Stop: 07/26/16 07:02 Last Admin: 07/26/16 07:11 Dose: 40 meq Potassium Chloride (Potassium Chloride Oral Soln) 40 meq PO STAT STA Stop: 07/26/16 08:30 Last Admin: 07/26/16 08:38 Dose: 40 meq Potassium Chloride (Potassium Chloride Oral Soln) 40 meq PO STAT STA Stop: 07/26/16 12:43 Last Admin: 07/26/16 13:11 Dose: 40 meq ED OBSERVATION Date of observation admission: 07/25/16 Time of observation admission: 19:40 <Roberto Durbin - Last Filed: 07/26/16 01:22> <Kurt Berg - Last Filed: 07/26/16 07:40> <Telly Montes - Last Filed: 07/27/16 01:02> - Observation admission statement Patient is being placed in observation because:: Labs ordered NS saline ordered will reassess (Roberto Durbin A) - Goals of Observation Goals of observation are:: Labs ordered NS saline ordered will reassess (GiftyHappiness A) - Progress Note Progress Note: 07/26/16 07:00 Patient signed out to me by Dr. Montes pending final disposition. 07/26/16 07:35 Patient's potassium is decreasing in the ER. Case discussed with Dr. Carter who agrees with observation for hypokalemia. (Kurt Berg) 07/26/16 02:30 patient resting comfortably with stable vitals. 07/26/16 03:45 Patient is still hypokalemic. Potassium chloride 20 mEq ordered. (Telly Montes) - PA / [employer] / Resident Statement MD/DO has reviewed & agrees with the documentation as recorded. MD/DO has examined the patient and agrees with the treatment plan. <Telly Montes - Last Filed: 07/27/16 01:02> Disposition/Present on Arrival - Present on Arrival Any Indicators Present on Arrival: No History of DVT/PE: No History of Uncontrolled Diabetes: No Urinary Catheter: No History of Decub. Ulcer: No History Surgical Site Infection Following: None - Disposition Have Diagnosis and Disposition been Completed?: Yes <Roberto Durbin - Last Filed: 07/26/16 01:22> <Kurt Berg - Last Filed: 07/26/16 07:40> - Present on Arrival Any Indicators Present on Arrival: No - Disposition Have Diagnosis and Disposition been Completed?: Yes Disposition Time: 07:00 <Telly Montes - Last Filed: 07/27/16 01:02> - Disposition Diagnosis: Transaminitis, Hypokalemia, Rash Disposition: HOSPITALIZED Patient Problems: Current Active Problems Problem Status Onset Hypokalemia Acute Rash Acute Transaminitis Chronic Condition: FAIR
[2016-07-26 03:23] LABS: ALB/GLOB RATIO 1.1 (1.1-1.8); ALKALINE PHOSPHATASE 89 U/L (38-133); ALT/SGPT 70 U/L (7-56); AST/SGOT 125 U/L (15-59); BILIRUBIN,TOTAL 1.6 mg/dL (0.2-1.3); BLOOD UREA NITROGEN 12 mg/dL (7-21); CALCIUM 7.4 mg/dL (8.4-10.5); CARBON DIOXIDE 23 mmol/L (21-33); CHLORIDE 107 mmol/L (98-107); GFR AFRICAN-AMERICAN > 60; GLUCOSE,RANDOM 90 mg/dL (70-110); SODIUM 139 mmol/L (132-148); TOTAL PROTEIN 5.1 g/dL (5.8-8.3)
[2016-07-26 03:23] LABS: PH,URINE 6.5 (4.7-8.0); URINE BILIRUBIN MODERATE (NEGATIVE); URINE BLOOD SMALL (NEGATIVE); URINE GLUCOSE (UA) NEGATIVE (NEGATIVE); URINE KETONE NEGATIVE (NEGATIVE); URINE LEUKOCYTE ESTERASE NEGATIVE Leu/uL (NEGATIVE); URINE PROTEIN 100 mg/dL (<30 mg/dL)
[2016-07-26 03:28] LABS: POTASSIUM 2.4 mmol/L (3.6-5.0)
[2016-07-26 03:30] LABS: URINE APPEARANCE CLOUDY (CLEAR); URINE COLOR DARK YELLOW (YELLOW)
[2016-07-26 03:52] LABS: URINE WBC NEGATIVE /hpf (0-6)
[2016-07-26 04:02] LABS: URINE BACTERIA FEW (NEG); URINE OTHER CRYSTALS BILI /hpf
[2016-07-26] MEDS: Potassium Chloride 20 mEq ER Tab PO ONE ×2 (07:11→14:03)
[2016-07-26 08:18] LABS: ALB/GLOB RATIO 1.1 (1.1-1.8); ALKALINE PHOSPHATASE 95 U/L (38-133); ALT/SGPT 70 U/L (7-56); AST/SGOT 149 U/L (15-59); BILIRUBIN,TOTAL 1.7 mg/dL (0.2-1.3); BLOOD UREA NITROGEN 13 mg/dL (7-21); CALCIUM 7.6 mg/dL (8.4-10.5); CARBON DIOXIDE 24 mmol/L (21-33); CHLORIDE 108 mmol/L (98-107); GFR AFRICAN-AMERICAN > 60; GLUCOSE,RANDOM 88 mg/dL (70-110); SODIUM 140 mmol/L (132-148)
[2016-07-26 08:23] LABS: POTASSIUM 2.8 mmol/L (3.6-5.0)
[2016-07-26] MEDS ORDERED: Potassium Chloride 40 mEq/30 ml LIQ UD PO STA ×2 (08:29→12:42)
[2016-07-26] MEDS ORDERED: Multivitamin (MVI) 10 ML, Thiamine 100 MG, Folic Acid 1 MG in Sodium Chloride 0.9% 1,00... IV ONE (09:04)
[2016-07-26 09:58] LABS: CHOLESTEROL 85 mg/dL (130-200)
[2016-07-26] MEDS ORDERED: Magnesium Sulfate 2 GM in Sodium Chloride 0.9% 100 ML IVPB ONE (10:38)
[2016-07-26 12:24] LABS: BLOOD UREA NITROGEN 14 mg/dL (7-21); CALCIUM 7.6 mg/dL (8.4-10.5); CARBON DIOXIDE 27 mmol/L (21-33); CHLORIDE 109 mmol/L (98-107); GFR AFRICAN-AMERICAN > 60; GLUCOSE,RANDOM 105 mg/dL (70-110); POTASSIUM 3.5 mmol/L (3.6-5.0); SODIUM 139 mmol/L (132-148)
--- NOTE | 2016-07-26 12:34 | US ---
HISTORY: rule out biliary tree obstruction COMPARISON: None. TECHNIQUE: Grayscale imaging was performed. FINDINGS: LIVER: Measures 21.8 cm. There is diffuse increased echogenicity of the liver parenchyma and nodular contour. No mass. No intrahepatic bile duct dilatation. GALLBLADDER: The gallbladder is well distended. There is a 6 mm polyp along the anterior wall. COMMON BILE DUCT: Measures 4.0 mm. No stones. No dilatation. PANCREAS: Unremarkable as visualized. No mass. No ductal dilatation. RIGHT KIDNEY: Measures 10.9cm. Normal echogenicity. No mass, or hydronephrosis. There is a 1.7 cm nonobstructing stone in the interpolar region. LEFT KIDNEY: Measures 11.4cm. Normal echogenicity. No calculus, mass, or hydronephrosis. SPLEEN: The spleen is moderately enlarged and measures 19.0 cm. AORTA: No aneurysmal dilatation. IVC: Unremarkable. OTHER FINDINGS: There is small abdominal ascites. IMPRESSION: 1. Cirrhosis of liver, mild hepatomegaly, moderate splenomegaly and small abdominal ascites. 2. 1.7 cm nonobstructing stone in the interpolar region of the right kidney. 3. 6 mm gallbladder polyp.
[2016-07-26 13:18] VITALS: BMI 25.7
[2016-07-26] MEDS ORDERED: Pneumococcal 23-Valent Vaccine IM ONE (13:18)
--- NOTE | 2016-07-26 13:32 | CP.PCM.HP ---
<Leo Alvarado - Last Filed: 07/26/16 13:25> History of Present Illness - History of Present Illness History of Present Illness: CC: Rash on my legs 55 M with pmh of ETOH abuse, alcohol withdrawal seizures, esophageal varices, liver cirrhosis and hypertension presents to the ED with rash on his b/l lower ext. Pt states that the rash started 1-2 days ago. He denies using a new soaps, detergents, or clothing. He does state that he was gardening yesterday but denies being bit by anything. He denies the use of any new medications. He does admit to multiple bouts of non bloody diarrhea over the last 2 days. Denies any nausea or vomiting. Denies any hemphill, dizziness, f/c, sob, cp, abd pain, urinary changes. PMHx: ETOH abuse, alcohol withdrawal seizures, esophageal varices, liver cirrhosis and hypertension SxHx: Colonic polypectomy(4 removed.) Feb 2105, Banding of varices. FxHx: Father of liver cancer, mother of breast cancer, sister had brain aneurism. SH: Somkes half PPD x 30 years, ETOH use 1 pints per day. Drugs-history of heroin abuse Allergies: PCN, pseduoephedrine, sulfa Medications: refer to MAR Present on Admission - Present on Admission Any Indicators Present on Admission: No Review of Systems - Review of Systems All systems: reviewed and no additional remarkable complaints except (HPI) Past Patient History - Infectious Disease Hx of Infectious Diseases: None - Tetanus Immunizations Tetanus Immunization: Unknown - Past Medical History & Family History Past Medical History?: Yes - Past Social History Smoking Status: Light Smoker < 10 Cigarettes Daily Alcohol: > 2 Drinks/Day Drugs: Denies - CARDIAC Hx Cardiac Disorders: No Hx Hypertension: Yes Hx Peripheral Edema: Yes (rle +2 pitting, lle +1 pitting) - PULMONARY Hx Respiratory Disorders: No Other/Comment: Active smoker - NEUROLOGICAL Hx Neurological Disorder: Yes (hand tremors) Hx Seizures: Yes - HEENT Hx HEENT Problems: Yes (eyeglasses) - RENAL Hx Chronic Kidney Disease: No - ENDOCRINE/METABOLIC Hx Endocrine Disorders: No - HEMATOLOGICAL/ONCOLOGICAL Hx Blood Disorders: No - INTEGUMENTARY Other/Comment: red raises rash to ble, thick hard toenails, dirty toes - MUSCULOSKELETAL/RHEUMATOLOGICAL Hx Falls: No - GASTROINTESTINAL Hx Gastrointestinal Disorders: Yes (liver cirrhosis) Other/Comment: Liver bx, esophogeal varices, banding of varices x2,colon polyps removed x 4 - GENITOURINARY/GYNECOLOGICAL Hx Genitourinary Disorders: No - PSYCHIATRIC Hx Anxiety: Yes Hx Depression: Yes Other/Comment: daily drinker vodka, vague about amount, psychiatric treatment, detox part [place] - SURGICAL HISTORY Other/Comment: s/p banding of varices x2. endoscopy - ANESTHESIA Hx Anesthesia: Yes Hx Anesthesia Reactions: No Hx Malignant Hyperthermia: No Meds Allergies/Adverse Reactions: Allergies Allergy/AdvReac Type Severity Reaction Status Date / Time pseudoephedrine HCl Allergy Mild NAUSEA Verified 07/25/16 19:45 [From Sudafed] Sulfa (Sulfonamide Allergy Mild ANGIOEDEMA Verified 07/25/16 19:45 Antibiotics) Penicillins AdvReac Anxiety Verified 07/25/16 19:45 Physical Exam - Constitutional Appears: No Acute Distress - Head Exam Head Exam: ATRAUMATIC, NORMAL INSPECTION, NORMOCEPHALIC - Eye Exam Eye Exam: EOMI, Normal appearance, PERRL Pupil Exam: NORMAL ACCOMODATION, PERRL - ENT Exam ENT Exam: Mucous Membranes Moist, Normal Exam - Neck Exam Neck exam: Positive for: Normal Inspection - Respiratory Exam Respiratory Exam: Clear to Auscultation Bilateral, NORMAL BREATHING PATTERN. absent: Wheezes - Cardiovascular Exam Cardiovascular Exam: REGULAR RHYTHM - GI/Abdominal Exam GI & Abdominal Exam: Normal Bowel Sounds, Soft. absent: Tenderness - Extremities Exam Extremities exam: Negative for: joint swelling, pedal edema, tenderness Additional comments: purple/ redish Purpura on b/l lower extremity - Back Exam Back exam: NORMAL INSPECTION - Neurological Exam Neurological exam: Alert, CN II-XII Intact, Normal Gait, Oriented x3, Reflexes Normal - Psychiatric Exam Psychiatric exam: Normal Affect, Normal Mood - Skin Skin Exam: Dry, Intact, Normal Color, Warm Results - Vital Signs Recent Vital Signs: Last Vital Signs Temp 97.8 F 07/26/16 13:07 Pulse 84 07/26/16 13:07 Resp 17 07/26/16 13:07 BP 148/100 H 07/26/16 13:07 Pulse Ox 97 07/26/16 12:00 - Labs Result Diagrams: 07/25/16 21:05 07/26/16 12:00 Labs: Laboratory Results - last 24 hr 07/26/16 07/26/16 07/26/16 02:25 02:59 07:55 Sodium 139 Potassium 2.4 L* Chloride 107 Carbon Dioxide 23 Anion Gap 11 BUN 12 Creatinine 0.8 Est GFR ( Amer) > 60 Est GFR (Non-Af Amer) > 60 Random Glucose 90 Lactic Acid Calcium 7.4 L Magnesium Total Bilirubin 1.6 H AST 125 H ALT 70 H Alkaline Phosphatase 89 Total Protein 5.1 L Albumin 2.7 L Globulin 2.4 Albumin/Globulin Ratio 1.1 Triglycerides Cholesterol LDL Cholesterol Direct HDL Cholesterol TSH 3rd Generation Urine Color Dark yellow Urine Appearance Cloudy Urine pH 6.5 Ur Specific [place] 1.020 Urine Protein 100 H Urine Glucose (UA) Negative Urine Ketones Negative Urine Blood Small H Urine Nitrate Negative Urine Bilirubin Moderate H Urine Urobilinogen 4.0 H Ur Leukocyte Esterase Negative Urine RBC 1 - 3 Urine WBC Negative Ur Epithelial Cells 4 - 5 Other Crystals Bili Urine Bacteria Few Urine Other Mucus Alcohol, Quantitative 25 H 07/26/16 07/26/16 07/26/16 07:55 07:55 07:55 Sodium 140 Potassium 2.8 L* Chloride 108 H Carbon Dioxide 24 Anion Gap 11 BUN 13 Creatinine 0.8 Est GFR ( Amer) > 60 Est GFR (Non-Af Amer) > 60 Random Glucose 88 Lactic Acid Calcium 7.6 L Magnesium Total Bilirubin 1.7 H AST 149 H ALT 70 H Alkaline Phosphatase 95 Total Protein 5.0 L Albumin 2.6 L Globulin 2.4 Albumin/Globulin Ratio 1.1 Triglycerides 112 Cholesterol 85 L LDL Cholesterol Direct 52 HDL Cholesterol 26 L TSH 3rd Generation 0.66 Urine Color Urine Appearance Urine pH Ur Specific [place] Urine Protein Urine Glucose (UA) Urine Ketones Urine Blood Urine Nitrate Urine Bilirubin Urine Urobilinogen Ur Leukocyte Esterase Urine RBC Urine WBC Ur Epithelial Cells Other Crystals Urine Bacteria Urine Other Alcohol, Quantitative 07/26/16 07/26/16 07/26/16 08:00 12:00 12:00 Sodium 139 Potassium 3.5 L Chloride 109 H Carbon Dioxide 27 Anion Gap 7 L BUN 14 Creatinine 0.7 Est GFR ( Amer) > 60 Est GFR (Non-Af Amer) > 60 Random Glucose 105 Lactic Acid 0.7 Calcium 7.6 L Magnesium 1.5 L Total Bilirubin AST ALT Alkaline Phosphatase Total Protein Albumin Globulin Albumin/Globulin Ratio Triglycerides Cholesterol LDL Cholesterol Direct HDL Cholesterol TSH 3rd Generation Urine Color Urine Appearance Urine pH Ur Specific [place] Urine Protein Urine Glucose (UA) Urine Ketones Urine Blood Urine Nitrate Urine Bilirubin Urine Urobilinogen Ur Leukocyte Esterase Urine RBC Urine WBC Ur Epithelial Cells Other Crystals Urine Bacteria Urine Other Alcohol, Quantitative Assessment & Plan - Assessment and Plan (Free Text) Assessment: 55 M with pmh of ETOH abuse, alcohol withdrawal seizures, esophageal varices, liver cirrhosis and hypertension presents to the ED with rash on his b/l lower ext. Found to have Hypokalemia. 1. Hypokalemia likely 2/2 diarrhea - K initially 2.5 - K currently 3.5 following KCL 20meq x 2, KCL 40meq PO x 3 - Cont to replete K as needed - F/u C. diff work up - F/u Stool work up 2. Rash on Lower ext - Consulted ID Dr Dunbar for recs 3. ETOH abuse/ withdrawals - Ativan 2mg Q6H and 2mg Q3H PRN - Banana bag - Thiamine, Multivitamins - CIWA protocol - Fall precautions - Abd US- cirrohosis of liver, mild hepatomegally, mod splenomegally, small ascites, non obstructing stone in R kidney, 6mm gallbladder polyp 4. Pancytopenia - likely secondary to extensive use of alcohol abuse - Cont to monitor 5. GI/DVT ppx - Pepcid and OOB to chair with assistance Case and plan was seen, reviewed and discussed in detail with Dr Bingham. <Patrica Bingham - Last Filed: 07/26/16 15:28> Results - Vital Signs Recent Vital Signs: Last Vital Signs Temp 97.8 F 07/26/16 13:07 Pulse 97 H 07/26/16 14:00 Resp 18 07/26/16 14:00 BP 137/92 H 07/26/16 14:00 Pulse Ox 98 07/26/16 14:00 - Labs Result Diagrams: 07/25/16 21:05 07/26/16 12:00 Labs: Laboratory Results - last 24 hr 07/26/16 07/26/16 07/26/16 02:25 02:59 07:55 Sodium 139 Potassium 2.4 L* Chloride 107 Carbon Dioxide 23 Anion Gap 11 BUN 12 Creatinine 0.8 Est GFR ( Amer) > 60 Est GFR (Non-Af Amer) > 60 Random Glucose 90 Lactic Acid Calcium 7.4 L Magnesium Total Bilirubin 1.6 H AST 125 H ALT 70 H Alkaline Phosphatase 89 Total Protein 5.1 L Albumin 2.7 L Globulin 2.4 Albumin/Globulin Ratio 1.1 Triglycerides Cholesterol LDL Cholesterol Direct HDL Cholesterol TSH 3rd Generation Urine Color Dark yellow Urine Appearance Cloudy Urine pH 6.5 Ur Specific [place] 1.020 Urine Protein 100 H Urine Glucose (UA) Negative Urine Ketones Negative Urine Blood Small H Urine Nitrate Negative Urine Bilirubin Moderate H Urine Urobilinogen 4.0 H Ur Leukocyte Esterase Negative Urine RBC 1 - 3 Urine WBC Negative Ur Epithelial Cells 4 - 5 Other Crystals Bili Urine Bacteria Few Urine Other Mucus Alcohol, Quantitative 25 H 07/26/16 07/26/16 07/26/16 07:55 07:55 07:55 Sodium 140 Potassium 2.8 L* Chloride 108 H Carbon Dioxide 24 Anion Gap 11 BUN 13 Creatinine 0.8 Est GFR ( Amer) > 60 Est GFR (Non-Af Amer) > 60 Random Glucose 88 Lactic Acid Calcium 7.6 L Magnesium Total Bilirubin 1.7 H AST 149 H ALT 70 H Alkaline Phosphatase 95 Total Protein 5.0 L Albumin 2.6 L Globulin 2.4 Albumin/Globulin Ratio 1.1 Triglycerides 112 Cholesterol 85 L LDL Cholesterol Direct 52 HDL Cholesterol 26 L TSH 3rd Generation 0.66 Urine Color Urine Appearance Urine pH Ur Specific [place] Urine Protein Urine Glucose (UA) Urine Ketones Urine Blood Urine Nitrate Urine Bilirubin Urine Urobilinogen Ur Leukocyte Esterase Urine RBC Urine WBC Ur Epithelial Cells Other Crystals Urine Bacteria Urine Other Alcohol, Quantitative 07/26/16 07/26/16 07/26/16 08:00 12:00 12:00 Sodium 139 Potassium 3.5 L Chloride 109 H Carbon Dioxide 27 Anion Gap 7 L BUN 14 Creatinine 0.7 Est GFR ( Amer) > 60 Est GFR (Non-Af Amer) > 60 Random Glucose 105 Lactic Acid 0.7 Calcium 7.6 L Magnesium 1.5 L Total Bilirubin AST ALT Alkaline Phosphatase Total Protein Albumin Globulin Albumin/Globulin Ratio Triglycerides Cholesterol LDL Cholesterol Direct HDL Cholesterol TSH 3rd Generation Urine Color Urine Appearance Urine pH Ur Specific [place] Urine Protein Urine Glucose (UA) Urine Ketones Urine Blood Urine Nitrate Urine Bilirubin Urine Urobilinogen Ur Leukocyte Esterase Urine RBC Urine WBC Ur Epithelial Cells Other Crystals Urine Bacteria Urine Other Alcohol, Quantitative Attending/Attestation - Attestation I have personally seen and examined this patient.: Yes I have fully participated in the care of the patient.: Yes I have reviewed all pertinent clinical information: Yes Notes (Text): 07/26/16 15:21 55 year old male with past medical history of alcohol abuse, hepatitis C, and liver cirrhosis who presented with complaint of bilateral LE rash and diarrhea for past 3 days. In ER he was found to have significant, persistent hypokalemia , likely secondary to recent diarrhea. Alcohol level was also 25. Continue with banana bag with ativan berkley/prn for withdrawal symptoms. He was counselled on alcohol cessation. ID evaluation is requested for LE rash. Will follow up with recommendations. He does not complain of itching. Stool workup is ordered for diarrhea. Will replenish potassium and magnesium and repeat. Abdominal ultrasound was done which showed cirrhosis, small ascites and 6 mm gallbladder polyp (stable). Pancytopenia noted likely secondary to chronic ETOH bone marrow supression. Will continue to monitor. Patrica Bingham MD Hospitalist.
--- NOTE | 2016-07-26 16:00 | CARD ---
APPROVED REPORT EKG Measurement Heart [id number] <Conclusion> Normal sinus rhythm Nonspecific T wave abnormality Abnormal ECG
--- NOTE | 2016-07-26 18:03 | CP.PCM.CON ---
History of Present Illness - History of Present Illness History of Present Illness: 55 year old male with PMH of chronic alcohol abuse with history of liver cirrhosis and esophageal varices, significant smoking history came in to [facility] complaining of nausea and vomiting for about 3 days. He is also complaning of rash on both his legs, which are non-tender, non- pruritic. He states that he developed the rash a day after he did some yard work outdoors barefoot. He does not recall insect bites or tick bites but the patient is unsure. He denies fever or chills, no headache or dizziness, no chest pain, no SOB, no abdominal pain, no diarrhea, no dysuria. Infectious Diseases consult is requested to further evaluate and manage. Review of Systems - Review of Systems All systems: reviewed and no additional remarkable complaints except (as per HPI ) Past Patient History - Infectious Disease Hx of Infectious Diseases: None - Tetanus Immunizations Tetanus Immunization: Unknown - Past Medical History & Family History Past Medical History?: Yes - Past Social History Smoking Status: Heavy Smoker > 10 Cigarettes Daily - CARDIAC Hx Cardiac Disorders: No - PULMONARY Hx Respiratory Disorders: No Other/Comment: Active smoker - NEUROLOGICAL Hx Neurological Disorder: Yes Hx Seizures: Yes - HEENT Hx HEENT Problems: Yes (eyeglasses) - RENAL Hx Chronic Kidney Disease: No - ENDOCRINE/METABOLIC Hx Endocrine Disorders: No - HEMATOLOGICAL/ONCOLOGICAL Hx Blood Disorders: No - INTEGUMENTARY Hx Dermatological Problems: No - MUSCULOSKELETAL/RHEUMATOLOGICAL Hx Falls: No - GASTROINTESTINAL Hx Gastrointestinal Disorders: Yes Other/Comment: Liver Dx, esophogeal varices, - GENITOURINARY/GYNECOLOGICAL Hx Genitourinary Disorders: No - PSYCHIATRIC Hx Depression: Yes Hx Substance Use: No - SURGICAL HISTORY Other/Comment: s/p banding of varices x2. endoscopy - ANESTHESIA Hx Anesthesia: Yes Hx Anesthesia Reactions: No Hx Malignant Hyperthermia: No Meds Allergies/Adverse Reactions: Allergies Allergy/AdvReac Type Severity Reaction Status Date / Time pseudoephedrine HCl Allergy Mild NAUSEA Verified 07/25/16 19:45 [From Sudafed] Sulfa (Sulfonamide Allergy Mild ANGIOEDEMA Verified 07/25/16 19:45 Antibiotics) Penicillins AdvReac Anxiety Verified 07/25/16 19:45 - Medications Medications: Current Medications Famotidine (Pepcid) 40 mg PO HS TONI Multivitamins/Vitamin C 10 ml/Thiamine HCl 100 mg/ Folic Acid 1 mg/ Sodium Chloride 1,011.2 mls @ 100 mls/hr IV .Q10H7M ONE Stop: 07/26/16 19:10 Lorazepam (Ativan) 2 mg IV Q3H PRN; Protocol PRN Reason: Agitation Thiamine HCl (Vitamin B1 Tab) 100 mg PO DAILY TONI Vitamin B Complex/Vit C/Folic Acid (Nephro-Mariann) 1 tab PO 0800 [facility] Physical Exam - Constitutional Appears: Non-toxic, No Acute Distress - Head Exam Head Exam: NORMAL INSPECTION - ENT Exam ENT Exam: Mucous Membranes Moist - Neck Exam Neck exam: Negative for: Meningismus - Respiratory Exam Respiratory Exam: Decreased Breath Sounds - Cardiovascular Exam Cardiovascular Exam: +S1, +S2 - GI/Abdominal Exam GI & Abdominal Exam: Soft. absent: Tenderness - Extremities Exam Additional comments: petechial and purpuric rash on both feet and legs, non-tender, non-blanching, non-raised Results - Vital Signs Recent Vital Signs: Last Vital Signs Temp 97.8 F 07/26/16 06:30 Pulse 87 07/26/16 07:55 Resp 18 07/26/16 07:55 BP 140/89 07/26/16 07:55 Pulse Ox 98 07/26/16 07:55 - Labs Result Diagrams: 07/25/16 21:05 07/26/16 12:00 Labs: Laboratory Results - last 24 hr 07/26/16 07/26/16 07/26/16 02:25 02:59 07:55 Sodium 139 Potassium 2.4 L* Chloride 107 Carbon Dioxide 23 Anion Gap 11 BUN 12 Creatinine 0.8 Est GFR ( Amer) > 60 Est GFR (Non-Af Amer) > 60 Random Glucose 90 Calcium 7.4 L Magnesium Total Bilirubin 1.6 H AST 125 H ALT 70 H Alkaline Phosphatase 89 Total Protein 5.1 L Albumin 2.7 L Globulin 2.4 Albumin/Globulin Ratio 1.1 Triglycerides Cholesterol HDL Cholesterol Urine Color Dark yellow Urine Appearance Cloudy Urine pH 6.5 Ur Specific [place] 1.020 Urine Protein 100 H Urine Glucose (UA) Negative Urine Ketones Negative Urine Blood Small H Urine Nitrate Negative Urine Bilirubin Moderate H Urine Urobilinogen 4.0 H Ur Leukocyte Esterase Negative Urine RBC 1 - 3 Urine WBC Negative Ur Epithelial Cells 4 - 5 Other Crystals Bili Urine Bacteria Few Urine Other Mucus Alcohol, Quantitative 25 H 07/26/16 07/26/16 07/26/16 07:55 07:55 08:00 Sodium 140 Potassium 2.8 L* Chloride 108 H Carbon Dioxide 24 Anion Gap 11 BUN 13 Creatinine 0.8 Est GFR ( Amer) > 60 Est GFR (Non-Af Amer) > 60 Random Glucose 88 Calcium 7.6 L Magnesium 1.5 L Total Bilirubin 1.7 H AST 149 H ALT 70 H Alkaline Phosphatase 95 Total Protein 5.0 L Albumin 2.6 L Globulin 2.4 Albumin/Globulin Ratio 1.1 Triglycerides 112 Cholesterol 85 L HDL Cholesterol 26 L Urine Color Urine Appearance Urine pH Ur Specific [place] Urine Protein Urine Glucose (UA) Urine Ketones Urine Blood Urine Nitrate Urine Bilirubin Urine Urobilinogen Ur Leukocyte Esterase Urine RBC Urine WBC Ur Epithelial Cells Other Crystals Urine Bacteria Urine Other Alcohol, Quantitative Assessment & Plan - Assessment and Plan (Free Text) Plan: Assessment consider petechial rash on both lower extremities probably due to thrombocytopenia in this patient with liver cirrhosis probably from alcohol abuse, R/O viral hepatitis, R/O Rickettsia, R/O [place] virus chronic alcohol abuse with history of liver cirrhosis and esophageal varices significant smoking history Plan started patient on Rocephin and Doxycycline pending blood cx, rickettsia work up , WNV serology follow up clinical response check viral hepatitis panel, HIV test
[2016-07-26] MEDS: cefTRIAXone 1 gm 1 GM/100 ML BAG IVPB SCH (18:30)
[2016-07-27 06:31] VITALS: O2SAT 95
[2016-07-27 06:33] LABS: HEMATOCRIT 26.1 % (42.0-52.0); MEAN CELL VOLUME 93.9 fL (80.0-105.0); MEAN CORPUSCULAR HEMOGLOBIN 30.9 pg (25.0-35.0); MEAN PLATELET VOLUME 9.6 fl (7.0-11.0); RED CELL DISTRIBUTION WIDTH 14.2 % (11.5-14.5)
[2016-07-27 06:44] LABS: WHITE BLOOD COUNT 2.1 10^3/ul (4.5-11.0)
[2016-07-27 07:17] LABS: MAGNESIUM 1.6 mg/dL (1.7-2.2)
[2016-07-27] MEDS ORDERED: Magnesium Sulfate 2 GM in Sodium Chloride 0.9% 100 ML IVPB ONE (07:22)
[2016-07-27] MEDS: Multivitamin Vitamin B Complex (Nephro-Vite) Tab PO SCH (08:12)
[2016-07-27 09:08] LABS: ALKALINE PHOSPHATASE 93 U/L (38-133); ALT/SGPT 61 U/L (7-56); AST/SGOT 104 U/L (15-59); BILIRUBIN,TOTAL 2.1 mg/dL (0.2-1.3); BLOOD UREA NITROGEN 17 mg/dL (7-21); CALCIUM 7.4 mg/dL (8.4-10.5); CARBON DIOXIDE 24 mmol/L (21-33); CHLORIDE 106 mmol/L (98-107); GFR AFRICAN-AMERICAN > 60; GLUCOSE,RANDOM 93 mg/dL (70-110); POTASSIUM 3.1 mmol/L (3.6-5.0); SODIUM 135 mmol/L (132-148); TOTAL PROTEIN 4.9 g/dL (5.8-8.3)
[2016-07-27] MEDS: cefTRIAXone 1 gm 1 GM/100 ML BAG IVPB SCH (10:32)
[2016-07-27] MEDS ORDERED: Potassium Chloride 40 mEq/30 ml LIQ UD PO STA (13:39)
--- NOTE | 2016-07-27 13:42 | CP.PCM.PN ---
<Leo Alvarado - Last Filed: 07/27/16 13:34> Subjective - Date & Time of Evaluation Date of Evaluation: 07/27/16 Time of Evaluation: 06:40 - Subjective Subjective: Hospitalist Progress note: Pt seen and examined at bedside. No acute events overnight. Pt kira any other episode of diarrhea. He also c/o agitation and anxiety related to etoh withdrawals. Denies any headaches, dizziness, f/c, sob, cp, abd pain, n/v, urinary or bm changes. Objective - Vital Signs/Intake and Output Vital Signs (last 24 hours): Temp Pulse Resp BP Pulse Ox 98.7 F 78 20 143/95 H 95 07/27/16 12:00 07/27/16 12:00 07/27/16 12:00 07/27/16 12:00 07/27/16 06:00 Intake and Output: 07/27/16 07/27/16 06:59 18:59 Intake Total 480 Balance 480 - Medications Medications: Current Medications Doxycycline Hyclate (Doryx) 100 mg PO Q12 [facility] PRN Reason: Protocol Last Admin: 07/27/16 10:32 Dose: 100 mg Famotidine (Pepcid) 40 mg PO HS [facility] Ceftriaxone Sodium (Rocephin 1 Gram Ivpb) 1 gm in 100 mls @ 100 mls/hr IVPB DAILY [facility] PRN Reason: Protocol Last Admin: 07/27/16 10:32 Dose: 100 mls/hr Lorazepam (Ativan) 2 mg IV Q3H PRN; Protocol PRN Reason: Agitation Last Admin: 07/26/16 10:10 Dose: 2 mg Lorazepam (Ativan) 2 mg IVP Q6H [facility] PRN Reason: Protocol Last Admin: 07/27/16 12:56 Dose: 2 mg Thiamine HCl (Vitamin B1 Tab) 100 mg PO DAILY [facility] Last Admin: 07/27/16 10:32 Dose: 100 mg Vitamin B Complex/Vit C/Folic Acid (Nephro-Mariann) 1 tab PO 0800 [facility] Last Admin: 07/27/16 08:12 Dose: 1 tab - Labs Labs: 07/27/16 05:35 07/27/16 05:35 PT 14.3 Seconds (9.9-11.8) H 07/25/16 21:05 INR 1.32 (0.93-1.08) H 07/25/16 21:05 APTT 23.8 Seconds (23.7-30.8) 07/25/16 21:05 - Constitutional Appears: No Acute Distress - Head Exam Head Exam: ATRAUMATIC, NORMAL INSPECTION, NORMOCEPHALIC - Eye Exam Eye Exam: EOMI, Normal appearance, PERRL Pupil Exam: NORMAL ACCOMODATION, PERRL - ENT Exam ENT Exam: Mucous Membranes Moist, Normal Exam - Neck Exam Neck Exam: Full ROM, Normal Inspection. absent: Lymphadenopathy - Respiratory Exam Respiratory Exam: Clear to Ausculation Bilateral, NORMAL BREATHING PATTERN. absent: Wheezes - Cardiovascular Exam Cardiovascular Exam: REGULAR RHYTHM, RRR, +S1, +S2. absent: Murmur - GI/Abdominal Exam GI & Abdominal Exam: Soft, Normal Bowel Sounds. absent: Tenderness - Extremities Exam Extremities Exam: Full ROM, Normal Capillary Refill. absent: Joint Swelling, Pedal Edema Additional comments: Purpura present on b/l lower ext but seems improved since yesterday - Back Exam Back Exam: NORMAL INSPECTION - Neurological Exam Neurological Exam: Alert, Awake, CN II-XII Intact, Normal Gait, Oriented x3 - Psychiatric Exam Psychiatric exam: Anxious, Normal Affect, Normal Mood - Skin Skin Exam: Dry, Intact, Normal Color, Warm Assessment and Plan - Assessment and Plan (Free Text) Assessment: 55 M with pmh of ETOH abuse, alcohol withdrawal seizures, esophageal varices, liver cirrhosis and hypertension presents to the ED with rash on his b/l lower ext. Found to have Hypokalemia now in etoh withdrawals. 1. Hypokalemia likely 2/2 diarrhea - Denies any other episodes of diarrhea - K is 3.1 following KCL 20meq x 2, KCL 40meq PO x 1 - Cont to replete K as needed - F/u C. diff work up - F/u Stool work up 2. Rash on Lower ext - Cont Doxy and Rocephin - Consulted ID Dr Dunbar for recs - Likely due to thrombocytopenia from liver dx , Started Doxy and Rocephin, ordered Rickettsial and WNV workup. 3. ETOH abuse/ withdrawals - Ativan 2mg Q6H and 2mg Q3H PRN - Banana bag - Thiamine, Multivitamins - CIWA protocol - Fall precautions - Abd US- cirrhosis of liver, mild hepatomegally, mod splenomegally, small ascites, non obstructing stone in R kidney, 6mm gallbladder polyp 4. Pancytopenia - likely secondary to extensive use of alcohol abuse - Cont to monitor 5. Transaminitis - Likely 2/2 extensive etoh abuse - Trending down 6. Hypomagnesium - 1.6 this am - Replete as needed 7. GI/DVT ppx - Pepcid and OOB to chair with assistance Case and plan was seen, reviewed and discussed in detail with Dr Bingham. <Patrica Bingham - Last Filed: 07/27/16 16:17> Objective - Vital Signs/Intake and Output Vital Signs (last 24 hours): Temp Pulse Resp BP Pulse Ox 98.7 F 82 20 143/95 H 95 07/27/16 12:00 07/27/16 14:00 07/27/16 12:00 07/27/16 12:00 07/27/16 06:00 Intake and Output: 07/27/16 07/27/16 06:59 18:59 Intake Total 480 240 Balance 480 240 - Medications Medications: Current Medications Doxycycline Hyclate (Doryx) 100 mg PO Q12 [facility] PRN Reason: Protocol Last Admin: 07/27/16 10:32 Dose: 100 mg Famotidine (Pepcid) 40 mg PO HS [facility] Ceftriaxone Sodium (Rocephin 1 Gram Ivpb) 1 gm in 100 mls @ 100 mls/hr IVPB DAILY [facility] PRN Reason: Protocol Last Admin: 07/27/16 10:32 Dose: 100 mls/hr Potassium Chloride (Potassium Chloride 20 Meq/100 Ml) 20 meq in 100 mls @ 50 mls/hr IVPB Q2H [facility] Stop: 07/27/16 17:44 Last Admin: 07/27/16 15:34 Dose: 50 mls/hr Lorazepam (Ativan) 2 mg IV Q3H PRN; Protocol PRN Reason: Agitation Last Admin: 07/26/16 10:10 Dose: 2 mg Lorazepam (Ativan) 2 mg IVP Q6H [facility] PRN Reason: Protocol Last Admin: 07/27/16 12:56 Dose: 2 mg Thiamine HCl (Vitamin B1 Tab) 100 mg PO DAILY [facility] Last Admin: 07/27/16 10:32 Dose: 100 mg Vitamin B Complex/Vit C/Folic Acid (Nephro-Mariann) 1 tab PO 0800 [facility] Last Admin: 07/27/16 08:12 Dose: 1 tab - Labs Labs: 07/27/16 05:35 07/27/16 05:35 PT 14.3 Seconds (9.9-11.8) H 07/25/16 21:05 INR 1.32 (0.93-1.08) H 07/25/16 21:05 APTT 23.8 Seconds (23.7-30.8) 07/25/16 21:05 Attending/Attestation - Attestation I have personally seen and examined this patient.: Yes I have fully participated in the care of the patient.: Yes I have reviewed all pertinent clinical information, including history, physical exam and plan: Yes Notes (Text): 07/27/16 16:15 55 year old male with past medical history of alcohol abuse, hepatitis C, and liver cirrhosis who presented with complaint of bilateral LE rash and diarrhea for past 3 days. In ER he was found to have significant, persistent hypokalemia , likely secondary to recent diarrhea. Alcohol level was also 25. Continue with banana bag and ativan, berkley/prn for withdrawal symptoms. He still has tremors at present time. He was counselled on alcohol cessation. His LE rash is improving. He was started on antibiotics by ID. Workup is pending. Diarrhea has resolved per patient. Will replete and repeat potassium and magnesium. Abdominal ultrasound was done which showed cirrhosis, small ascites and 6 mm gallbladder polyp (stable). Pancytopenia noted likely secondary to chronic ETOH bone marrow supression. Will continue to monitor. Patrica Bingham MD Hospitalist.
--- NOTE | 2016-07-27 16:08 | PN ---
DATE: 07/27/2016 The patient is in bed in room 262, bed 2. No fevers and no chills. PHYSICAL EXAMINATION: VITAL SIGNS: Temperature is 98, blood pressure is 140/90, respiratory rate of 20, heart rate of 85. HEENT: Unremarkable. NECK: Supple. LUNGS: Decreased breath sounds. HEART: Normal S1, S2. ABDOMEN: Soft. LABORATORY EXAMINATION: Reveals a white count of 2.1, hemoglobin of 8, platelets of 74. Chemistries reveal BUN of 17, creatinine of 0.8. Urinalysis is noted. Serology is pending. Microbiology is no ragini. Review of orders reveals the patient to be on doxycycline and ceftriaxone. ____ note is reviewed . ASSESSMENT AND PLAN: A 55-year-old male seen early this morning in 262 with history of chronic alcoh ol abuse, history of liver cirrhosis, esophageal varices, significant smoking history, admitted with nausea and vomiting and with petechial rash in both lower extremities, probably secondary to thromboc ytopenia in patient with liver cirrhosis and alcohol abuse. Currently on ceftriaxone and doxycycline with workup results still pending. Review of the orders reveals the hepatitis profile is noted and human immunodeficiency virus is pending and Lyme and rickettsial disease and West Nile pending. We w ill follow with you. The patient did have an abdominal ultrasound, which reveals a small abdominal a scites. Should have a gastrointestinal evaluation. Nehemiah Aguilar MD cc: 350 TT: 07/27/2016 16:08:26 Confirmation # [id number] Dictation # [id number] sn
[2016-07-28 00:10] VITALS: RESP 18; TEMP 98.4
[2016-07-28 05:13] LABS: LYME DISEASE SCREEN <0.90 index
[2016-07-28 07:01] LABS: HEMATOCRIT 24.9 % (42.0-52.0); MEAN CELL VOLUME 92.9 fL (80.0-105.0); MEAN CORPUSCULAR HEMOGLOBIN 31.7 pg (25.0-35.0); MEAN CORPUSCULAR HGB CONC 34.1 g/dl (31.0-37.0); MEAN PLATELET VOLUME 9.5 fl (7.0-11.0); PLATELET COUNT 128 10^3/uL (120.0-450.0); RED CELL DISTRIBUTION WIDTH 14.1 % (11.5-14.5)
[2016-07-28 07:05] LABS: MAGNESIUM 1.5 mg/dL (1.7-2.2)
[2016-07-28] MEDS ORDERED: Magnesium Sulfate 2 GM in Sodium Chloride 0.9% 100 ML IVPB ONE (07:37)
[2016-07-28 08:03] LABS: WHITE BLOOD COUNT 2.1 10^3/ul (4.5-11.0)
[2016-07-28 08:31] LABS: ADD MANUAL DIFF? NO; BASO # 0.01 K/mm3 (0.0-2.0); BASO % 0.5 % (0.0-3.0); GRAN % 52.6 % (50.0-68.0); LYMPH # 0.7 (1.2-3.4); MONO # 0.3 (0.1-0.6); MONO % 12.9 % (1.0-6.0)
[2016-07-28] MEDS: Multivitamin Vitamin B Complex (Nephro-Vite) Tab PO SCH (08:35)
[2016-07-28] MEDS: cefTRIAXone 1 gm 1 GM/100 ML BAG IVPB SCH (10:23)
[2016-07-28] MEDS ORDERED: cefTRIAXone 1 gm 1 GM/100 ML BAG IVPB ONE (10:23)
[2016-07-28] MEDS ORDERED: Cefpodoxime (Vantin) 200 mg Tab PO SCH (10:27)
[2016-07-28] MEDS ORDERED: Cefpodoxime (Vantin) 200 mg Tab PO ONE (10:47)
--- NOTE | 2016-07-28 10:48 | PN ---
DATE: 07/28/2016 The patient is in bed in no acute distress, nontoxic. PHYSICAL EXAMINATION: VITAL SIGNS: Temperature is 98, blood pressure is 140/80, respiratory rate of 18, heart rate of 88. HEENT: Unremarkable. NECK: Supple. LUNGS: Have decreased breath sounds. HEART: Normal S1, S2. ABDOMEN: Soft, nontender. LABORATORY DATA: Reveals a white count of 2.1, hemoglobin of 8 and platelets of 128. Chemistries re veals a BUN of 17, creatinine of 0.8, procalcitonin is 0.14. Urinalysis is noted. Serology is revie wed. The patient's hepatitis C is positive. HIV is negative. Review of orders reveals the patient to be on ceftriaxone and blood cultures are reported to be negat kirk. ASSESSMENT AND PLAN: This is a 55-year-old male with history of chronic alcohol abuse, liver cirrhos is, esophageal varices and significant smoking, admitted with nausea, vomiting, petechial rash lower extremity secondary to thrombocytopenia secondary to liver cirrhosis, alcohol abuse, and with negativ e blood cultures and rickettsial workup and West Nile workup is pending. The patient is doing much b shobha. The patient had a normal procalcitonin. PENICILLIN ALLERGIC; however, tolerating the ceftria xone and can switch to p.o. Vantin for 7 days in addition to 7 days of doxycycline p.o. Nehemiah Aguilar MD cc: 350 TT: 07/28/2016 10:48:00 Confirmation # [id number] Dictation # [id number] cn
--- NOTE | 2016-07-28 13:09 | CP.PCM.DIS ---
<Leo Alvarado - Last Filed: 07/28/16 12:48> Provider - Provider Date of Admission: 07/27/16 16:51 Attending physician: Patrica Bingham MD Primary care physician: Davey De La Torre MD Time Spent in preparation of Discharge (in minutes): 45 Hospital Course - Lab Results Lab Results: Most Recent Lab Values WBC 2.1 10^3/ul (4.5-11.0) L* 07/28/16 06:15 RBC 2.68 10^6/uL (3.5-6.1) L 07/28/16 06:15 Hgb 8.5 gm/dL (14.0-18.0) L 07/28/16 06:15 Hct 24.9 % (42.0-52.0) L 07/28/16 06:15 MCV 92.9 fL (80.0-105.0) 07/28/16 06:15 MCH 31.7 pg (25.0-35.0) 07/28/16 06:15 MCHC 34.1 g/dl (31.0-37.0) 07/28/16 06:15 RDW 14.1 % (11.5-14.5) 07/28/16 06:15 Plt Count 128 10^3/uL (120.0-450.0) 07/28/16 06:15 MPV 9.5 fl (7.0-11.0) 07/28/16 06:15 Gran % 52.6 % (50.0-68.0) 07/28/16 06:15 Lymph % (Auto) 33.0 % (22.0-35.0) 07/28/16 06:15 [place] % (Auto) 12.9 % (1.0-6.0) H 07/28/16 06:15 Eos % (Auto) 1.0 % (1.5-5.0) L 07/28/16 06:15 Baso % (Auto) 0.5 % (0.0-3.0) 07/28/16 06:15 Gran # 1.10 (1.4-6.5) L 07/28/16 06:15 Lymph # 0.7 (1.2-3.4) L 07/28/16 06:15 [place] # 0.3 (0.1-0.6) 07/28/16 06:15 Eos # 0.0 (0.0-0.7) 07/28/16 06:15 Baso # 0.01 K/mm3 (0.0-2.0) 07/28/16 06:15 ESR 13 mm/hr (0.00-15.0) 07/27/16 05:35 PT 14.3 Seconds (9.9-11.8) H 07/25/16 21:05 INR 1.32 (0.93-1.08) H 07/25/16 21:05 APTT 23.8 Seconds (23.7-30.8) 07/25/16 21:05 Sodium 135 mmol/L (132-148) 07/27/16 05:35 Potassium 3.1 mmol/L (3.6-5.0) L 07/27/16 05:35 Chloride 106 mmol/L (98-107) 07/27/16 05:35 Carbon Dioxide 24 mmol/L (21-33) 07/27/16 05:35 Anion Gap 8 (10-20) L 07/27/16 05:35 BUN 17 mg/dL (7-21) 07/27/16 05:35 Creatinine 0.8 mg/dL (0.5-1.4) 07/27/16 05:35 Est GFR ( Amer) > 60 07/27/16 05:35 Est GFR (Non-Af Amer) > 60 07/27/16 05:35 Random Glucose 93 mg/dL (70-110) 07/27/16 05:35 Hemoglobin A1c 4.4 % (4.2-6.5) 07/26/16 12:00 Lactic Acid 0.7 mmol/L (0.7-2.1) 07/26/16 12:00 Calcium 7.4 mg/dL (8.4-10.5) L 07/27/16 05:35 Magnesium 1.5 mg/dL (1.7-2.2) L 07/28/16 06:15 Total Bilirubin 2.1 mg/dL (0.2-1.3) H 07/27/16 05:35 AST 104 U/L (15-59) H 07/27/16 05:35 ALT 61 U/L (7-56) H 07/27/16 05:35 Alkaline Phosphatase 93 U/L (38-133) 07/27/16 05:35 Lactate Dehydrogenase 486 U/L (333-699) 07/25/16 21:05 Total Creatine Kinase 36 U/L (35-230) 07/25/16 21:05 Troponin I < 0.01 ng/mL D 07/25/16 21:05 C-React Prot High Sens 2.91 mg/L (1.00-3.00) 07/27/16 05:35 Total Protein 4.9 g/dL (5.8-8.3) L 07/27/16 05:35 Albumin 2.4 g/dL (3.0-4.8) L 07/27/16 05:35 Globulin 2.4 gm/dL 07/27/16 05:35 Albumin/Globulin Ratio 1.0 (1.1-1.8) L 07/27/16 05:35 Triglycerides 112 mg/dL (35-160) 07/26/16 07:55 Cholesterol 85 mg/dL (130-200) L 07/26/16 07:55 LDL Cholesterol Direct 52 mg/dL (0-129) 07/26/16 07:55 HDL Cholesterol 26 mg/dL (29-60) L 07/26/16 07:55 Amylase 37 U/L (35-125) 07/25/16 21:05 Lipase 321 U/L (23-300) H 07/25/16 21:05 Procalcitonin 0.14 NG/ML (0.19-0.49) L 07/27/16 05:35 TSH 3rd Generation 0.66 mIU/mL (0.46-4.68) 07/26/16 07:55 Urine Color Dark yellow (YELLOW) 07/26/16 02:25 Urine Appearance Cloudy (CLEAR) 07/26/16 02:25 Urine pH 6.5 (4.7-8.0) 07/26/16 02:25 Ur Specific [place] 1.020 (1.005-1.035) 07/26/16 02:25 Urine Protein 100 mg/dL (<30 mg/dL) H 07/26/16 02:25 Urine Glucose (UA) Negative mg/dL (NEGATIVE) 07/26/16 02:25 Urine Ketones Negative mg/dL (NEGATIVE) 07/26/16 02:25 Urine Blood Small (NEGATIVE) H 07/26/16 02:25 Urine Nitrate Negative (NEGATIVE) 07/26/16 02:25 Urine Bilirubin Moderate (NEGATIVE) H 07/26/16 02:25 Urine Urobilinogen 4.0 E.U./dL (<1 E.U./dL) H 07/26/16 02:25 Ur Leukocyte Esterase Negative Anthony/uL (NEGATIVE) 07/26/16 02:25 Urine RBC 1 - 3 /hpf (0-2) 07/26/16 02:25 Urine WBC Negative /hpf (0-6) 07/26/16 02:25 Ur Epithelial Cells 4 - 5 /hpf (0-5) 07/26/16 02:25 Other Crystals Bili /hpf 07/26/16 02:25 Urine Bacteria Few (NEG) 07/26/16 02:25 Urine Other Mucus 07/26/16 02:25 Alcohol, Quantitative 25 mg/dL (0-10) H 07/26/16 07:55 Lyme Disease Screen <0.90 index 07/27/16 05:35 Hepatitis A Ab Total Nonreactive (Nonreactive) 07/27/16 05:35 Hep Bs Antigen Negative (NEGATIVE) 07/27/16 05:35 Hep Bs Antibody Positive (NEGATIVE) 07/27/16 05:35 Hepatitis C Antibody Reactive (NEGATIVE) H 07/27/16 05:35 HIV 1&2 Ag/Ab, 4th Gen Nonreactive (Nonreactive) 07/26/16 07:00 - Hospital Course Hospital Course: 55 M with pmh of ETOH abuse, alcohol withdrawal seizures, esophageal varices, liver cirrhosis and hypertension presents to the ED with rash on his b/l lower ext for a day, and diarrhea for 1-2 days . In the ED basic labwork was done. Pt was found to hypokalemic to 2.5. Agressive tx with Kcl both IV and PO was started. Abd US was done and showed cirrhosis of liver, mild hepatomegally, moderate splenomegally, and small abdominal ascites. 1.7cm non obstructing stoe in interpolar region of the R kidney 6mm gallbladder polyp. ID was consulted for rash on the legs. Pt was also started withdrawing from ETOH. CIWA initiated and Ativan 2mg Q6H started. Pt was admitted for lower ext rash, etoh withdrawals , and hypokalemia. Pt hypokalemia was repleted as needed. ID saw the patient and recommended Doxy and Rocephin. Pt rash started to get better. ID recommended outpatient antibiotics with Vantin and Doxy. Potassium repleted. Diarrhea improved. Pt is less agitated, and anxious. Less withdrawal symptoms. Today pt states that he is doing well. No complaints at this time. Denies any hemphill, dizziess, f/c, sob, cp, abd pain, n/v/d. Discharge Exam - Head Exam Head Exam: ATRAUMATIC, NORMAL INSPECTION, NORMOCEPHALIC - Eye Exam Eye Exam: EOMI, Normal appearance, PERRL Pupil Exam: NORMAL ACCOMODATION, PERRL - ENT Exam ENT Exam: Mucous Membranes Moist - Respiratory Exam Respiratory Exam: Clear to PA & Lateral, UNREMARKABLE. absent: Rales, Rhonchi, Wheezes - Cardiovascular Exam Cardiovascular Exam: REGULAR RHYTHM, RRR, +S1, +S2 - GI/Abdominal Exam GI & Abdominal Exam: Normal Bowel Sounds, Soft. absent: Tenderness - Neurological Exam Neurological exam: Alert, CN II-XII Intact, Oriented x3, Reflexes Normal - Psychiatric Exam Psychiatric exam: Normal Affect, Normal Mood - Skin Skin Exam: Dry, Intact, Normal Color, Warm Discharge Plan - Discharge Medications Prescriptions: RX: Cefpodoxime [Vantin] 200 mg PO Q12 #14 tab RX: Doxycycline Hyclate [Doryx] 100 mg PO Q12 #14 cap - Follow Up Plan Condition: IMPROVED Disposition: HOME/ ROUTINE Patient education suggested?: Yes Instructions: Urticaria (GEN), Hypokalemia (DC), Hypokalemia (GEN), Bone Marrow Failure in Children (DC), Bone Marrow Failure in Children (GEN), Acute Rash (DC), Acute Rash (GEN) Additional Instructions: If your symptoms recur come back to the closet ED. Take your medications /antibiotics as prescribed. Follow up with your PMD with in 2-3 days. Follow up with [facility] clinic for your liver dx. Referrals: Davey De La Torre MD [Primary Care Provider] - <Patrica Bingham - Last Filed: 07/28/16 14:14> Provider - Provider Date of Admission: 07/27/16 16:51 Attending physician: Patrica Bingham MD Primary care physician: Davey De La Torre MD Hospital Course - Lab Results Lab Results: Most Recent Lab Values WBC 2.1 10^3/ul (4.5-11.0) L* 07/28/16 06:15 RBC 2.68 10^6/uL (3.5-6.1) L 07/28/16 06:15 Hgb 8.5 gm/dL (14.0-18.0) L 07/28/16 06:15 Hct 24.9 % (42.0-52.0) L 07/28/16 06:15 MCV 92.9 fL (80.0-105.0) 07/28/16 06:15 MCH 31.7 pg (25.0-35.0) 07/28/16 06:15 MCHC 34.1 g/dl (31.0-37.0) 07/28/16 06:15 RDW 14.1 % (11.5-14.5) 07/28/16 06:15 Plt Count 128 10^3/uL (120.0-450.0) 07/28/16 06:15 MPV 9.5 fl (7.0-11.0) 07/28/16 06:15 Gran % 52.6 % (50.0-68.0) 07/28/16 06:15 Lymph % (Auto) 33.0 % (22.0-35.0) 07/28/16 06:15 [place] % (Auto) 12.9 % (1.0-6.0) H 07/28/16 06:15 Eos % (Auto) 1.0 % (1.5-5.0) L 07/28/16 06:15 Baso % (Auto) 0.5 % (0.0-3.0) 07/28/16 06:15 Gran # 1.10 (1.4-6.5) L 07/28/16 06:15 Lymph # 0.7 (1.2-3.4) L 07/28/16 06:15 [place] # 0.3 (0.1-0.6) 07/28/16 06:15 Eos # 0.0 (0.0-0.7) 07/28/16 06:15 Baso # 0.01 K/mm3 (0.0-2.0) 07/28/16 06:15 ESR 13 mm/hr (0.00-15.0) 07/27/16 05:35 PT 14.3 Seconds (9.9-11.8) H 07/25/16 21:05 INR 1.32 (0.93-1.08) H 07/25/16 21:05 APTT 23.8 Seconds (23.7-30.8) 07/25/16 21:05 Sodium 135 mmol/L (132-148) 07/27/16 05:35 Potassium 3.1 mmol/L (3.6-5.0) L 07/27/16 05:35 Chloride 106 mmol/L (98-107) 07/27/16 05:35 Carbon Dioxide 24 mmol/L (21-33) 07/27/16 05:35 Anion Gap 8 (10-20) L 07/27/16 05:35 BUN 17 mg/dL (7-21) 07/27/16 05:35 Creatinine 0.8 mg/dL (0.5-1.4) 07/27/16 05:35 Est GFR ( Amer) > 60 07/27/16 05:35 Est GFR (Non-Af Amer) > 60 07/27/16 05:35 Random Glucose 93 mg/dL (70-110) 07/27/16 05:35 Hemoglobin A1c 4.4 % (4.2-6.5) 07/26/16 12:00 Lactic Acid 0.7 mmol/L (0.7-2.1) 07/26/16 12:00 Calcium 7.4 mg/dL (8.4-10.5) L 07/27/16 05:35 Magnesium 1.5 mg/dL (1.7-2.2) L 07/28/16 06:15 Total Bilirubin 2.1 mg/dL (0.2-1.3) H 07/27/16 05:35 AST 104 U/L (15-59) H 07/27/16 05:35 ALT 61 U/L (7-56) H 07/27/16 05:35 Alkaline Phosphatase 93 U/L (38-133) 07/27/16 05:35 Lactate Dehydrogenase 486 U/L (333-699) 07/25/16 21:05 Total Creatine Kinase 36 U/L (35-230) 07/25/16 21:05 Troponin I < 0.01 ng/mL D 07/25/16 21:05 C-React Prot High Sens 2.91 mg/L (1.00-3.00) 07/27/16 05:35 Total Protein 4.9 g/dL (5.8-8.3) L 07/27/16 05:35 Albumin 2.4 g/dL (3.0-4.8) L 07/27/16 05:35 Globulin 2.4 gm/dL 07/27/16 05:35 Albumin/Globulin Ratio 1.0 (1.1-1.8) L 07/27/16 05:35 Triglycerides 112 mg/dL (35-160) 07/26/16 07:55 Cholesterol 85 mg/dL (130-200) L 07/26/16 07:55 LDL Cholesterol Direct 52 mg/dL (0-129) 07/26/16 07:55 HDL Cholesterol 26 mg/dL (29-60) L 07/26/16 07:55 Amylase 37 U/L (35-125) 07/25/16 21:05 Lipase 321 U/L (23-300) H 07/25/16 21:05 Procalcitonin 0.14 NG/ML (0.19-0.49) L 07/27/16 05:35 TSH 3rd Generation 0.66 mIU/mL (0.46-4.68) 07/26/16 07:55 Urine Color Dark yellow (YELLOW) 07/26/16 02:25 Urine Appearance Cloudy (CLEAR) 07/26/16 02:25 Urine pH 6.5 (4.7-8.0) 07/26/16 02:25 Ur Specific [place] 1.020 (1.005-1.035) 07/26/16 02:25 Urine Protein 100 mg/dL (<30 mg/dL) H 07/26/16 02:25 Urine Glucose (UA) Negative mg/dL (NEGATIVE) 07/26/16 02:25 Urine Ketones Negative mg/dL (NEGATIVE) 07/26/16 02:25 Urine Blood Small (NEGATIVE) H 07/26/16 02:25 Urine Nitrate Negative (NEGATIVE) 07/26/16 02:25 Urine Bilirubin Moderate (NEGATIVE) H 07/26/16 02:25 Urine Urobilinogen 4.0 E.U./dL (<1 E.U./dL) H 07/26/16 02:25 Ur Leukocyte Esterase Negative Anthony/uL (NEGATIVE) 07/26/16 02:25 Urine RBC 1 - 3 /hpf (0-2) 07/26/16 02:25 Urine WBC Negative /hpf (0-6) 07/26/16 02:25 Ur Epithelial Cells 4 - 5 /hpf (0-5) 07/26/16 02:25 Other Crystals Bili /hpf 07/26/16 02:25 Urine Bacteria Few (NEG) 07/26/16 02:25 Urine Other Mucus 07/26/16 02:25 Alcohol, Quantitative 25 mg/dL (0-10) H 07/26/16 07:55 Lyme Disease Screen <0.90 index 07/27/16 05:35 Hepatitis A Ab Total Nonreactive (Nonreactive) 07/27/16 05:35 Hep Bs Antigen Negative (NEGATIVE) 07/27/16 05:35 Hep Bs Antibody Positive (NEGATIVE) 07/27/16 05:35 Hepatitis C Antibody Reactive (NEGATIVE) H 07/27/16 05:35 HIV 1&2 Ag/Ab, 4th Gen Nonreactive (Nonreactive) 07/26/16 07:00 Attending/Attestation - Attestation I have personally seen and examined this patient.: Yes I have fully participated in the care of the patient.: Yes I have reviewed all pertinent clinical information, including history, physical exam and plan: Yes Notes (Text): 07/28/16 14:10 55 year old male with past medical history of alcohol abuse, hepatitis C, and liver cirrhosis who presented with complaint of bilateral LE rash and diarrhea for past 3 days. In ER he was found to have significant, persistent hypokalemia , likely secondary to recent diarrhea. Alcohol level was also 25. He was started on banana bag and ativan berkley/prn for withdrawal symptoms. His tremors improved. He was counselled on alcohol cessation. He was seen by ID for LE rash. He was started on antibiotics for the rash which also improved. Diarrhea has resolved per patient. Magnesium and potassium were repleted as needed. Abdominal ultrasound was done which showed cirrhosis, small ascites and 6 mm gallbladder polyp (stable). Pancytopenia noted likely secondary to chronic ETOH bone marrow supression. Elevated LFTs were due to history of hepatitis C and ETOH abuse. Overall his symptoms improved. He will be discharged home. Follow up with pmd to repeat labs. Follow up with [facility] GI/hepatitis clinic. Counselled on alcohol abstinence. Continue with po antibiotics. Patrica Bingham MD Hospitalist.
[2016-07-28 13:34] LABS: ALB/GLOB RATIO 1.1 (1.1-1.8); ALKALINE PHOSPHATASE 92 U/L (38-133); ALT/SGPT 48 U/L (7-56); AST/SGOT 84 U/L (15-59); BILIRUBIN,TOTAL 2.2 mg/dL (0.2-1.3); BLOOD UREA NITROGEN 13 mg/dL (7-21); CALCIUM 7.7 mg/dL (8.4-10.5); CARBON DIOXIDE 24 mmol/L (21-33); CHLORIDE 105 mmol/L (98-107); GFR AFRICAN-AMERICAN > 60; GLUCOSE,RANDOM 85 mg/dL (70-110); POTASSIUM 3.5 mmol/L (3.6-5.0); SODIUM 134 mmol/L (132-148); TOTAL PROTEIN 4.8 g/dL (5.8-8.3)
[2016-07-28 13:44] VITALS: BP 134/74
[2016-07-28] MEDS ORDERED: Potassium Chloride 40 mEq/30 ml LIQ UD PO STA (14:09)
[2016-07-28 14:41] VITALS: PULSE 82
[2016-07-31 04:24] LABS: (1-3)-B-D GLUCAN <31 pg/mL
== END 2016-07-28 15:54 | disposition home or self-care (01) | DRG 433 ==
LOC: ED 19:32 → EROBSV 23:48 → UNDOADMOB 23:48 → EROBSV 07-26 07:35 → ERH 07-26 07:51 → 2RNO 07-26 16:34 → ERH 07-26 16:34 → OBSVTOIN 07-27 16:51
PROVIDERS: ADMIT Internal Medicine; ATTEND Internal Medicine
DX: K70.31 Alcoholic cirrhosis of liver with ascites (principal); D61.818 Other pancytopenia; I85.10 Secondary esophageal varices without bleeding; F10.239 Alcohol dependence with withdrawal, unspecified; G40.509 Epileptic seizures related to external causes, not intractable, without status epilepticus; B19.20 Unspecified viral hepatitis C without hepatic coma; E87.6 Hypokalemia; Y90.1 Blood alcohol level of 20-39 mg/100 ml; I10 Essential (primary) hypertension; R19.7 Diarrhea, unspecified; F11.10 Opioid abuse, uncomplicated; R21 Rash and other nonspecific skin eruption; F41.9 Anxiety disorder, unspecified; E83.42 Hypomagnesemia; K82.4 Cholesterolosis of gallbladder

== ENCOUNTER 2016-07-29 19:36 | Observation (INO) | payer MEDICAID, OTHER ==
[2016-07-29 19:37] VITALS: BMI 25.7
[2016-07-29 19:44] VITALS: RESP 16; TEMP 98
[2016-07-29] MEDS ORDERED: Sodium Chloride 0.9% 1,000 ML IV SCH (20:00)
[2016-07-29 20:37] LABS: BASO # 0.01 K/mm3 (0.0-2.0); BASO % 0.4 % (0.0-3.0); EOS % 0.4 % (1.5-5.0); GRAN # 1.63 (1.4-6.5); GRAN % 61.4 % (50.0-68.0); HEMATOCRIT 27.9 % (42.0-52.0); LYMPH # 0.8 (1.2-3.4); LYMPH % 28.7 % (22.0-35.0); MEAN CELL VOLUME 94.6 fL (80.0-105.0); MEAN CORPUSCULAR HEMOGLOBIN 31.9 pg (25.0-35.0); MEAN CORPUSCULAR HGB CONC 33.7 g/dl (31.0-37.0); MEAN PLATELET VOLUME 10.4 fl (7.0-11.0); MONO # 0.2 (0.1-0.6); MONO % 9.1 % (1.0-6.0); RED CELL DISTRIBUTION WIDTH 14.3 % (11.5-14.5)
[2016-07-29 20:41] LABS: ADD MANUAL DIFF? NO; PLATELET COUNT 81 10^3/uL (120.0-450.0); WHITE BLOOD COUNT 2.7 10^3/ul (4.5-11.0)
[2016-07-29 20:45] LABS: ALB/GLOB RATIO 1.1 (1.1-1.8); ALKALINE PHOSPHATASE 118 U/L (38-133); ALT/SGPT 70 U/L (7-56); AST/SGOT 123 U/L (15-59); BILIRUBIN,TOTAL 1.3 mg/dL (0.2-1.3); BLOOD UREA NITROGEN 14 mg/dL (7-21); CALCIUM 7.8 mg/dL (8.4-10.5); CARBON DIOXIDE 22 mmol/L (21-33); CHLORIDE 107 mmol/L (98-107); GFR AFRICAN-AMERICAN > 60; GLUCOSE,RANDOM 101 mg/dL (70-110); LIPASE 302 U/L (23-300); POTASSIUM 3.6 mmol/L (3.6-5.0); SODIUM 140 mmol/L (132-148); TOTAL PROTEIN 5.4 g/dL (5.8-8.3)
[2016-07-29 20:51] LABS: INR 1.26 (0.93-1.08); PARTIAL THROMBOPLASTIN TIME 25.2 Seconds (23.7-30.8)
--- NOTE | 2016-07-29 21:01 | ED PDOC ---
Arrival/HPI - General Chief Complaint: Abnormal Skin Integrity Time Seen by Provider: 07/29/16 19:47 Historian: Patient - History of Present Illness Narrative History of Present Illness (Text): 07/29/16 19:50 Adrian Kruger is a 55 year old male, whose past medical history includes alcohol abuse, esophageal varices, liver cirrhosis, and hypertension, who presents to the Emergency department complaining of RLQ pain tonight. Patient reports associated nausea with vomiting and notes he had drank some alcohol today. Patient also reports a rash to bilateral lower extremities, for which he was seen in the past and placed on antibiotics but states he could not afford them. Patient denies any fever, chills, chest pain, shortness of breath, diarrhea, urinary symptoms, headache, dizziness, or any other complaints. Symptom Onset: Gradual Symptom Course: Unchanged Activities at Onset: Rest, Light Context: Home Past Medical History - Provider Review Nursing Documentation Reviewed: Yes - Past History Past History: Non-Contributing - Infectious Disease Hx of Infectious Diseases: None - Tetanus Immunization Tetanus Immunization: Unknown - Cardiac Hx Cardiac Disorders: No - Pulmonary Hx Respiratory Disorders: No Other/Comment: Active smoker - Neurological Hx Neurological Disorder: Yes Hx Seizures: Yes - HEENT Hx HEENT Disorder: Yes (eyeglasses) - Renal Hx Renal Disorder: No - Endocrine/Metabolic Hx Endocrine Disorders: No - Hematological/Oncological Hx Blood Disorders: No - Integumentary Hx Dermatological Disorder: No - Musculoskeletal/Rheumatological Hx Falls: No - Gastrointestinal Hx Gastrointestinal Disorders: Yes Other/Comment: Liver Dx, esophogeal varices, - Genitourinary/Gynecological Hx Genitourinary Disorders: No - Psychiatric Hx Psychophysiologic Disorder: Yes Hx Depression: Yes Hx Substance Use: No - Surgical History Other/Comment: s/p banding of varices x2. endoscopy - Anesthesia Hx Anesthesia: Yes Hx Anesthesia Reactions: No Hx Malignant Hyperthermia: No - Suicidal Assessment Feels Threatened In Home Enviroment: No Family/Social History - Physician Review Nursing Documentation Reviewed: Yes Family/Social History: Unknown Family HX Smoking Status: Heavy Smoker > 10 Cigarettes Daily Hx Alcohol Use: Yes (vodka and beer) Frequency of alcohol use: Daily Hx Substance Use: No Hx Substance Use Treatment: No Allergies/Home Meds Allergies/Adverse Reactions: Allergies pseudoephedrine HCl [From Sudafed] Allergy (Mild, Verified 07/29/16 19:44) NAUSEA Sulfa (Sulfonamide Antibiotics) Allergy (Mild, Verified 07/29/16 19:44) ANGIOEDEMA Penicillins Adverse Reaction (Verified 07/29/16 19:44) Anxiety Home Medications: Home Meds Medication Instructions Recorded Confirmed No Known Home Med 07/29/16 07/29/16 Review of Systems - Physician Review All systems were reviewed & negative as marked: Yes - Review of Systems Constitutional: Normal. absent: Fevers Eyes: Normal ENT: Normal Respiratory: Normal. absent: SOB, Cough Cardiovascular: Normal. absent: Chest Pain Gastrointestinal: Abdominal Pain, Nausea, Vomiting. absent: Diarrhea Genitourinary Male: Normal. absent: Dysuria, Frequency, Hematuria, Urinary Output Changes Musculoskeletal: Normal. absent: Back Pain, Neck Pain Skin: Rash (+rash to bilateral lower extremities) Neurological: Normal Endocrine: Normal Hemo/Lymphatic: Normal Psychiatric: Normal Physical Exam Vital Signs Reviewed: Yes Vital Signs Temp Pulse Resp BP Pulse Ox 07/30/16 01:00 72 16 122/80 98 07/29/16 23:00 80 16 119/72 98 07/29/16 21:37 82 16 122/82 98 07/29/16 19:44 98 F 67 16 120/79 97 Temperature: Afebrile Blood Pressure: Normal Pulse: Regular Respiratory Rate: Normal Appearance: Positive for: Well-Appearing, Non-Toxic, Comfortable Pain Distress: None Mental Status: Positive for: Alert and Oriented X 3 - Systems Exam Head: Present: Atraumatic, Normocephalic Pupils: Present: PERRL Extroacular Muscles: Present: EOMI Conjunctiva: Present: Normal Mouth: Present: Moist Mucous Membranes Neck: Present: Normal Range of Motion Respiratory/Chest: Present: Clear to Auscultation, Good Air Exchange. No: Respiratory Distress, Accessory Muscle Use Cardiovascular: Present: Regular Rate and Rhythm, Normal S1, S2. No: Murmurs Abdomen: Present: Normal Bowel Sounds. No: Tenderness, Distention, Peritoneal Signs Upper Extremity: Present: Normal Inspection. No: Cyanosis, Edema Lower Extremity: Present: Normal Inspection. No: Edema Neurological: Present: GCS=15, CN II-XII Intact, Speech Normal Skin: Present: Warm, Dry, Rashes (Petechial rash to bilateral lower extremities) , Normal Color Psychiatric: Present: Alert, Oriented x 3, Normal Insight, Normal Concentration Medical Decision Making ED Course and Treatment: 07/29/16 19:50 Impression: 55 year old male complaining of RLQ pain, nausea, and vomiting today. Pt also reports rash to bilateral lower extremities. Plan: -- CT Abdomen and Pelvis w/o contrast -- EKG -- Chest X-ray -- Labs, alcohol level, lipase, troponin -- IV fluids -- Zofran -- Reassess and disposition Prior Visits: Notes and results from previous visits were reviewed. On 07/25/2016, pt came to the Emergency department complaining of RUQ with nausea, vomiting, diarrhea, and bilateral lower leg rash. Pt was admitted to the hospital for further evaluation. Re-evaluation Time: 06:01 Reassessment Condition: Re-examined, Improved - Lab Interpretations Lab Results: 07/29/16 20:20 07/29/16 20:20 Lab Results 07/29/16 20:20: Alcohol, Quantitative 174 H 07/29/16 20:20: Sodium 140, Potassium 3.6, Chloride 107, Carbon Dioxide 22, Anion Gap 15, BUN 14, Creatinine 0.9, Est GFR ( Amer) > 60, Est GFR (Non- Af Amer) > 60, Random Glucose 101, Calcium 7.8 L, Total Bilirubin 1.3, AST 123 H , ALT 70 H, Alkaline Phosphatase 118, Troponin I < 0.01, Total Protein 5.4 L, Albumin 2.8 L, Globulin 2.6, Albumin/Globulin Ratio 1.1, Lipase 302 H 07/29/16 20:20: PT 13.6 H, INR 1.26 H, APTT 25.2 07/29/16 20:20: WBC 2.7 L* D, RBC 2.95 L, Hgb 9.4 L, Hct 27.9 L, MCV 94.6, MCH 31.9, MCHC 33.7, RDW 14.3, Plt Count 81 L, MPV 10.4, Gran % 61.4, Lymph % (Auto ) 28.7, [place] % (Auto) 9.1 H, Eos % (Auto) 0.4 L, Baso % (Auto) 0.4, Gran # 1.63 , Lymph # 0.8 L, [place] # 0.2, Eos # 0.0, Baso # 0.01 I have reviewed the lab results: Yes - RAD Interpretation Narrative RAD Interpretations (Text): CT Abdomen and Pelvis shows: Dictated and Authenticated by: Juan J Mcneil MD Lower thorax: No acute findings. ABDOMEN: Liver: Nodular shrunken morphology of the liver consistent with underlying liver disease. Gallbladder and bile ducts: Gallbladder present - appears contracted in morphology. Mild layering hyperdensity within the gallbladder lumen. Pancreas: Pancreas appears normal. No ductal dilation. Spleen: Spleen enlarged 22 cm length. Adrenals: Bilateral adrenal glands appear normal. Kidneys and ureters: Small 2 mm stone within the right ureterovesicular junction (UVJ) and in right bladder. Mild right renal collecting system dilatation and perinephric fat stranding. Rounded 1-2 mm stones bilateral kidneys. Stomach and bowel: Small and large bowel loops appear normal in caliber. No evidence of bowel obstruction or free air. No mucosal thickening. Appendix: Visualized portions of appendix appear normal. PELVIS: Bladder: Bladder appears within normal limits. No stones. Reproductive: Unremarkable as visualized. ABDOMEN and PELVIS: Intraperitoneal space: [place] diffuse intraabdominal and pelvic free fluid. Bones/joints: Chronic degenerative changes of the lumbar spine. No acute fracture. No dislocation. Soft tissues: Rounded 2 cm fat containing umbilical hernia. Vasculature: Suspected upper abdominal and mesenteric collateral vessels. Chronic atherosclerotic calcification of the vasculature. No abdominal aortic aneurysm. Lymph nodes: Unremarkable. No enlarged lymph nodes. IMPRESSION: 1. Small 2 mm stone within the right ureterovesicular junction (UVJ) and in right bladder consistent with excreted stones. Mild right obstructive uropathy and obstructive nephropathy. 2. Bilateral renal nonobstructive stones. 3. Cirrhosis with ascites, splenomegaly and suspected upper abdominal collateral vessels - underlying portal hypertension. 4. Suspected gallstones vs debris. No evidence of intrahepatic or extrahepatic biliary ductal dilatation. 5. Rounded 2 cm fat containing umbilical hernia. Chest X-ray shows no acute processes. Radiology Orders: 07/29/16 19:54 ABD & PELVIS W/O PO OR IV CONT [CT] Stat 07/29/16 19:55 CHEST TWO VIEWS (PA/LAT) [RAD] Stat Automation Developer: ED Physician, Radiologist - EKG Interpretation EKG Interpretation (Text): EKG: Ordered, reviewed, and independently interpreted the EKG. Rate : 82 BPM Rhythm : NSR Interpretation : Non-specific ST/T wave changes. Comparison : No acute change from previous EKG on 07/25/2016. Interpreted by ED Physician: Yes Type: 12 lead EKG - Medication Orders Current Medication Orders: Discontinued Medications Sodium Chloride (Sodium Chloride 0.9%) 1,000 mls @ 80 mls/hr IV .[id number] TONI Last Admin: 07/29/16 20:23 Dose: 80 mls/hr Ondansetron HCl (Zofran Inj) 4 mg IVP STAT STA Stop: 07/29/16 20:00 Last Admin: 07/29/16 20:25 Dose: 4 mg ED OBSERVATION Discharge: Yes Date of observation admission: 07/29/16 Time of observation admission: 21:00 - Observation admission statement Patient is being placed in observation because:: abdominal pain - Goals of Observation Goals of observation are:: treatment/resolution of symptoms - Progress Note Progress Note: 07/29/16 21:00 Reviewed EKG, NSR at 82 bpm[address] Non-specific ST/T wave changes. 07/29/16 21:[address] Abdomen and Pelvis, shows: Dictated and Authenticated by: Juan J Mcneil MD 1. Small 2 mm stone within the right ureterovesicular junction (UVJ) and in right bladder consistent with excreted stones. Mild right obstructive uropathy and obstructive nephropathy. 2. Bilateral renal nonobstructive stones. 3. Cirrhosis with ascites, splenomegaly and suspected upper abdominal collateral vessels - underlying portal hypertension. 4. Suspected gallstones vs debris. No evidence of intrahepatic or extrahepatic biliary ductal dilatation. 5. Rounded 2 cm fat containing umbilical hernia. 07/29/16 22:07 Chest X-ray shows no acute processes. 07/30/16 00:05 Pt sleeping currently, in no acute distress. 07/30/16 02:05 Pt resting comfortably, no new complaints. 07/30/16 04:05 Pt sleeping currently, in no acute distress. 07/30/16 06:01 On re-evaluation, the patient feels better and is in no acute distress. I have discussed the results and plan with the patient, who expresses understanding. Patient in agreement with plan to discharged home. Patient is stable for discharge. Patient was instructed to follow up with physician/clinic in 1-2 days or return if symptoms worsen or new concerning symptoms arise. - Scribe Statement The provider has reviewed the documentation as recorded by the Scribe Rach Childers All medical record entries made by the Scribe were at my direction and personally dictated by me. I have reviewed the chart and agree that the record accurately reflects my personal performance of the history, physical exam, medical decision making, and the department course for this patient. I have also personally directed, reviewed, and agree with the discharge instructions and disposition. Disposition/Present on Arrival - Present on Arrival Any Indicators Present on Arrival: No History of DVT/PE: No History of Uncontrolled Diabetes: No Urinary Catheter: No History of Decub. Ulcer: No History Surgical Site Infection Following: None - Disposition Have Diagnosis and Disposition been Completed?: Yes Diagnosis: Pancytopenia, Alcohol abuse, Kidney stone on right side Disposition: HOME/ ROUTINE Disposition Time: 06:02 Condition: FAIR
[2016-07-29 21:05] LABS: TROPONIN I < 0.01 ng/mL
[2016-07-30 02:29] VITALS: O2SAT 98
[2016-07-30 06:16] VITALS: BP 125/72; PULSE 80
--- NOTE | 2016-07-30 08:12 | RAD ---
HISTORY: fall COMPARISON: 06/18/2016 TECHNIQUE: Chest PA and lateral FINDINGS: LUNGS: No active pulmonary disease. PLEURA: No significant pleural effusion identified. No pneumothorax apparent. CARDIOVASCULAR: Normal. OSSEOUS STRUCTURES: No significant abnormalities. VISUALIZED UPPER ABDOMEN: Normal. OTHER FINDINGS: None. IMPRESSION: No active disease.
--- NOTE | 2016-07-30 09:59 | CT ---
PROCEDURE: CT Abdomen and Pelvis without intravenous contrast HISTORY: rlq pain COMPARISON: 04/24/2016 TECHNIQUE: Without contrast. Contrast Dose: Radiation dose: Total exam DLP = 875 mGy-cm. This CT exam was performed using one or more of the following dose reduction techniques: Automated exposure control, adjustment of the mA and/or kV according to patient size, and/or use of iterative reconstruction technique. FINDINGS: LOWER THORAX: Unremarkable. LIVER: There is evidence of cirrhosis and portal hypertension with splenomegaly and formation of collateral vessels. GALLBLADDER AND BILE DUCTS: Probable gallstones. Mild mural thickening of the gallbladder PANCREAS: Unremarkable. No gross lesion or ductal dilatation. SPLEEN: There is severe splenomegaly. The spleen measures 23 cm height and 9.6 cm wide by 17 cm AP ADRENALS: Unremarkable. No mass. KIDNEYS AND URETERS: There are 2 3 mm stones in the right UVJ. One of the stones may be free within the bladder. These findings are seen on images 171-174 of series 2. There is mild hydronephrosis and hydroureter. Small stones are seen in both kidneys. VASCULATURE: Unremarkable. No aortic aneurysm. BOWEL: Unremarkable. No obstruction. No gross mural thickening. APPENDIX: Unremarkable. Normal appendix. PERITONEUM: There is small amount of ascites LYMPH NODES: Unremarkable. No enlarged lymph nodes. BLADDER: Unremarkable. REPRODUCTIVE: Unremarkable. BONES: No acute fracture. OTHER FINDINGS: The report concurs with the preliminary [facility] report IMPRESSION: Two separate 3 mm right UVJ stones with mild hydronephrosis on the right. Cirrhosis with splenomegaly and collateral vessel formation Mild ascites
--- NOTE | 2016-07-31 01:17 | CARD ---
APPROVED REPORT EKG Measurement Heart [id number] <Conclusion> Normal sinus rhythm Nonspecific ST and T wave abnormality Abnormal ECG
== END 2016-07-30 06:03 | disposition home or self-care (01) ==
LOC: ED 19:36 → EROBSV 21:00
PROVIDERS: ADMIT Emergency Medicine; ATTEND Emergency Medicine
DX: N20.0 Calculus of kidney (principal); F10.10 Alcohol abuse, uncomplicated; Y90.6 Blood alcohol level of 120-199 mg/100 ml; D61.818 Other pancytopenia; I10 Essential (primary) hypertension
CPT/HCPCS: 71020; 74176; 80053; 83690; 84484; 85025; 85610; 85730; 93005; 96374; 99284; G0378; G0480; J2405; J7040

== ENCOUNTER 2016-10-02 16:30 | Inpatient (IN) | payer MEDICAID, OTHER ==
[2016-10-02 16:36] VITALS: BMI 21.3
--- NOTE | 2016-10-02 16:38 | ED PDOC ---
Arrival/HPI - General Historian: Patient, EMS - General Time Seen by Provider: 10/02/16 16:32 - History of Present Illness Narrative History of Present Illness (Text): 10/02/16 16:35 56 y/o male, pmh including gastritis/pancytopenia/tranaminitis/hepatitis C?, psychiatric history including alcohol withdrawal/alcohol abuse, penicillin and sulfa allergic, biba c/anxious/tremors for the past 2 days. Pt. stated that he has chronic drinking habit, stop drinking suddenly about 2 days ago as he wants to stop drinking, been having shakes/tremors/nausea/vomiting for the past 2 days , no chest pain or shortness of breath, no night sweat, no facial twitching, no numbness or tingling, no other medical or psychological complaints. (Jett Ballesteros) Past Medical History - Provider Review Nursing Documentation Reviewed: Yes - Past History Past History: Non-Contributing - Infectious Disease Hx of Infectious Diseases: None - Tetanus Immunization Tetanus Immunization: Unknown - Cardiac Hx Cardiac Disorders: No - Pulmonary Hx Respiratory Disorders: No Other/Comment: Active smoker - Neurological Hx Neurological Disorder: Yes Hx Seizures: Yes - HEENT Hx HEENT Disorder: Yes (eyeglasses) - Renal Hx Renal Disorder: No - Endocrine/Metabolic Hx Endocrine Disorders: No - Hematological/Oncological Hx Blood Disorders: No - Integumentary Hx Dermatological Disorder: No - Musculoskeletal/Rheumatological Hx Falls: No - Gastrointestinal Hx Gastrointestinal Disorders: Yes Other/Comment: Liver Dx, esophogeal varices, - Genitourinary/Gynecological Hx Genitourinary Disorders: No - Psychiatric Hx Psychophysiologic Disorder: Yes Hx Depression: Yes Hx Substance Use: No - Surgical History Other/Comment: s/p banding of varices x2. endoscopy - Anesthesia Hx Anesthesia: Yes Hx Anesthesia Reactions: No Hx Malignant Hyperthermia: No - Suicidal Assessment Feels Threatened In Home Enviroment: No Family/Social History - Physician Review Nursing Documentation Reviewed: Yes Family/Social History: Unknown Family HX Smoking Status: Heavy Smoker > 10 Cigarettes Daily Hx Alcohol Use: Yes (vodka and beer) Hx Substance Use: No Hx Substance Use Treatment: No Allergies/Home Meds Allergies/Adverse Reactions: Allergies pseudoephedrine HCl [From Sudafed] Allergy (Mild, Verified 10/02/16 19:19) NAUSEA Sulfa (Sulfonamide Antibiotics) Allergy (Mild, Verified 10/02/16 19:19) ANGIOEDEMA Penicillins Adverse Reaction (Verified 10/02/16 19:19) Anxiety Home Medications: Home Meds Medication Instructions Recorded Confirmed No Known Home Med 07/29/16 10/02/16 Review of Systems - Review of Systems Constitutional: Fatigue. absent: Fevers Eyes: absent: Vision Changes ENT: absent: Hearing Changes Respiratory: absent: SOB, Cough Cardiovascular: absent: Chest Pain Gastrointestinal: Nausea, Vomiting. absent: Abdominal Pain, Diarrhea Skin: absent: Rash, Pruritis, Skin Lesions Neurological: Other (+tremors). absent: Headache, Dizziness, Speech Changes, Facial Droop Psychiatric: Anxiety. absent: Depression, Suicidal Ideation Physical Exam - Systems Exam Head: Present: Atraumatic, Normocephalic Pupils: Present: PERRL Extroacular Muscles: Present: EOMI Conjunctiva: Present: Normal Mouth: Present: Moist Mucous Membranes Neck: Present: Normal Range of Motion, Trachea Midline. No: MIDLINE TENDERNESS , Paraspinal Tenderness, Lymphadenopathy Respiratory/Chest: Present: Clear to Auscultation, Good Air Exchange. No: Respiratory Distress, Accessory Muscle Use, Wheezes, Decreased Breath Sounds, Retracting, Rhonchi Cardiovascular: Present: Regular Rate and Rhythm, Normal S1, S2. No: Murmurs Abdomen: Present: Normal Bowel Sounds. No: Tenderness, Distention, Peritoneal Signs Back: Present: Normal Inspection Upper Extremity: Present: Normal Inspection. No: Cyanosis, Edema Lower Extremity: Present: Normal Inspection. No: Edema Neurological: Present: GCS=15, Motor Func Grossly Intact, Memory Normal, Other ( +tongue fasciulation with bilateral fine hand/fingers tremors) Skin: Present: Warm, Dry, Normal Color. No: Rashes Psychiatric: Present: Alert, Oriented x 3, Normal Insight, Normal Concentration , Anxious Medical Decision Making - Lab Interpretations I have reviewed the lab results: Yes - RAD Interpretation Shuttle Car Operator: Radiologist - EKG Interpretation Interpreted by ED Physician: Yes Type: 12 lead EKG Comparison: Com.w/previous EKG ED Course and Treatment: 10/02/16 16:38 -labs/ua/alcohol -ekg/chest xray -IV banana bag/ativan/zofran/spiritual counselor -Alcohol withdrawal standard precautious order -likely will admit for alcohol withdrawal as he has history of alcohol withdrawal seizure. 10/02/16 18:32 -Sinus Tachycardia @ 126 BPM, no ST elevation or depression, T wave inversion noted no the lead II/III/aVF with multiple T wave inversion on the lead V2-V6. -Chest xray show no active disease -Labs show K+ 1.6 (repeated), magnesium 1.5 (magnesium sulfate ordered), Phosphorus 1.4, Lipase 523 (asymptomatic) -Alcohol/salicylate and acetaminophen levels are within normal limit. -Multiple T wave inversions noted on this time's ekg but no chest pain/ shortness of breath/palpitation, likely from severe hypokelamia, po and IV potassium chloride ordered/added. -Pt. will need to admitted to the telemetry to further evaluation. -Case discussed with Dr. Cortez, she agreed with the dispo and treatment plan. 10/02/16 18:47 -Troponin noted to be mildly elevated 0.15mg po, asymptomatic, no history of chest pain or shortness of breath, aspirin 325mg po ordered, ekg repeated show : Sinus tachycardia @ 126 BPM, no ST elevation or depression, T wave inversion noted no the lead II/III/aVF with multiple T wave inversion on the lead V2-V6 chronically. 10/02/16 19:29 -I spoke to the university president and ICU air twister winder Dr. Matt, discussed about the case/labs/radiology result in detail, agreed to admit the patient. Pt. is still asymptomatic. (Jett Ballesteros) - Lab Interpretations Lab Results: 10/02/16 17:00 10/02/16 18:00 Lab Results 10/02/16 18:00: Sodium 141, Potassium 1.6 L* D, Chloride 101, Carbon Dioxide 32 , Anion Gap 10, BUN 18, Creatinine 0.9, Est GFR ( Amer) > 60, Est GFR ( Non-Af Amer) > 60, Random Glucose 93, Calcium 8.0 L, Phosphorus 1.4 L*, Magnesium 1.5 L, Total Bilirubin 5.5 H, AST 194 H, ALT 79 H, Alkaline Phosphatase 62, Lactate Dehydrogenase 869 H, Total Creatine Kinase 277 H, CK-MB (CK-2) 3.4, CK-MB (CK-2) % Cancelled, Troponin I 0.15 H* D, Total Protein 5.4 L , Albumin 2.6 L, Globulin 2.8, Albumin/Globulin Ratio 0.9 L, Lipase 523 H 10/02/16 17:00: WBC 4.9 D, RBC 3.40 L, Hgb 11.4 L, Hct 31.6 L, MCV 92.9, MCH 33.5, MCHC 36.1, RDW 15.2 H, Plt Count 130, MPV 12.4 H, Gran % 48.9 L, Lymph % ( Auto) 41.7 H, [place] % (Auto) 9.2 H, Eos % (Auto) 0.0 L, Baso % (Auto) 0.2, Gran # 2.39, Lymph # 2.0, [place] # 0.5, Eos # 0.0, Baso # 0.01 10/02/16 16:39: Alcohol, Quantitative < 10 10/02/16 16:39: Salicylates < 1 L, Acetaminophen < 10.0 L - RAD Interpretation Radiology Orders: 10/02/16 16:39 CHEST PORTABLE [RAD] Stat chest x-ray: no active pulmonary disease (Jett Ballesteros) - EKG Interpretation EKG Interpretation (Text): 10/02/16 17:08 Sinus Tachycardia @ 126 BPM, no ST elevation or depression, T wave inversion noted no the lead II/III/aVF with multiple T wave inversion on the lead V2-V5 chronically. (Jett Ballesteros) - Medication Orders Current Medication Orders: Acetaminophen (Tylenol 160mg/5ml Oral Soln) 320 mg PO Q4 PRN PRN Reason: Fever >100.4 F Last Admin: 10/04/16 13:52 Dose: 320 mg Albuterol/Ipratropium (Duoneb 3 Mg/0.5 Mg (3 Ml) Ud) 3 ml IH [id number] TONI Last Admin: 10/10/16 07:32 Dose: 3 ml Folic Acid (Folic Acid) 1 mg PO DAILY [facility] Last Admin: 10/09/16 09:02 Dose: 1 mg Fentanyl Citrate (Fentanyl Citrate/Sodium Chloride 1 Mg/100 Ml) 1,000 mcg in 100 mls @ 7.5 mls/hr IV .[id number] PRN; Protocol; 75 MCG/HR PRN Reason: TITRATE PER MD ORDER Last Titration: 10/09/16 18:40 Dose: 25 mcg/hr, 2.5 mls/hr Micafungin Sodium 100 mg/ (Sodium Chloride) 100 mls @ 100 mls/hr IV DAILY TONI PRN Reason: Protocol Stop: 10/17/16 10:01 Last Admin: 10/09/16 09:05 Dose: 100 mls/hr Sodium Chloride (Sodium Chloride 0.45%) 1,000 mls @ 80 mls/hr IV .[id number] TONI Last Admin: 10/09/16 13:00 Dose: Meropenem 250 mg/ Sodium (Chloride) 100 mls @ 100 mls/hr IVPB Q12H TONI PRN Reason: Protocol Stop: 10/17/16 13:31 Last Admin: 10/10/16 00:40 Dose: 100 mls/hr Lorazepam (Ativan) 2 mg IVP Q2H PRN; Protocol PRN Reason: Agitation Last Admin: 10/07/16 05:33 Dose: 2 mg Re-Assess: Reassess Psych Meds Document 10/07/16 06:03 PD (Rec: 10/07/16 06:40 PD [id number]) Reassess Psych Med Effective Metoclopramide HCl (Reglan) 10 mg IVP Q6H PRN PRN Reason: Other Last Admin: 10/09/16 17:13 Dose: 10 mg Midodrine (Proamatine) 5 mg PO TID TONI Last Admin: 10/09/16 19:01 Dose: 5 mg Pantoprazole Sodium (Protonix Inj) 40 mg IVP DAILY [facility] Last Admin: 10/09/16 09:01 Dose: 40 mg Rifaximin (Xifaxan) 550 mg PO BID TONI PRN Reason: Protocol Last Admin: 10/09/16 17:13 Dose: 550 mg Thiamine HCl (Vitamin B1 Tab) 100 mg PO DAILY [facility] Last Admin: 10/09/16 09:02 Dose: 100 mg Vancomycin HCl (Vancocin 25 Mg/Ml (Oral Use)) 125 mg PO Q6H TONI PRN Reason: Protocol Last Admin: 10/10/16 05:12 Dose: 125 mg Vitamin A (Vitamin A & D Oint Ud Foilpak) 1 ea TOP DAILY [facility] Last Admin: 10/09/16 09:02 Dose: 1 ea Vitamin B Complex/Vit C/Folic Acid (Nephro-Mariann) 1 tab PO 0800 TONI Last Admin: 10/09/16 08:45 Dose: 1 tab Discontinued Medications Acetaminophen (Tylenol 325mg Tab) 650 mg PO Q4 PRN PRN Reason: Fever >100.4 F Last Admin: 10/02/16 23:46 Dose: 650 mg Re-Assess: MAR Pain/Vitals Document 10/03/16 00:46 JBO (Rec: 10/03/16 01:39 JBO [id number]) Pain Reassessment Is This A Pain ReAssessment? No Sleep Is patient sleeping during reassessment? Yes Vitals Temperature (97.6 F-99.6 F) 102 F Albumin Human (Albumin Human 5% (12.5 Gm/250 Ml)) 12.5 gm IV Q1H TONI Stop: 10/04/16 09:31 Last Admin: 10/04/16 10:36 Dose: 12.5 gm Albumin Human (Albumin Human 25% (12.5 Gm/50 Ml)) 12.5 gm IV Q1H TONI Stop: 10/05/16 14:31 Last Admin: 10/05/16 15:26 Dose: 12.5 gm Albumin Human (Albumin Human 5% (12.5 Gm/250 Ml)) 12.5 gm IV Q1H TONI Stop: 10/05/16 10:31 Last Admin: 10/05/16 10:25 Dose: 12.5 gm Albumin Human (Albumin Human 5% (12.5 Gm/250 Ml)) 12.5 gm IV ONCE TONI Stop: 10/07/16 11:16 Last Admin: 10/05/16 12:10 Dose: 12.5 gm Albumin Human (Albumin Human 5% (12.5 Gm/250 Ml)) 12.5 gm IV Q1H TONI Stop: 10/05/16 13:31 Last Admin: 10/05/16 15:55 Dose: 12.5 gm Aspirin (Aspirin) 325 mg PO STAT STA Stop: 10/02/16 18:47 Last Admin: 10/02/16 19:18 Dose: Aspirin (Aspirin Supp) 300 mg RC STAT STA Stop: 10/02/16 19:16 Last Admin: 10/02/16 19:28 Dose: 300 mg Re-Assess: MAR Pain/Vitals Document 10/02/16 20:28 OCS (Rec: 10/02/16 21:25 OCS [id number]) Pain Reassessment Is This A Pain ReAssessment? Yes Sleep Is patient sleeping during reassessment? Yes Aspirin (Aspirin Chewable) 81 mg PO DAILY [facility] Last Admin: 10/04/16 09:12 Dose: 81 mg Calcium Carbonate (Caltrate) 600 mg PO DAILY [facility] Last Admin: 10/06/16 09:06 Dose: 600 mg Calcium Chloride (Calcium Chloride) 1,000 mg IV ONCE ONE Stop: 10/06/16 10:34 Last Admin: 10/06/16 11:14 Dose: 1,000 mg Diazepam (Valium) 5 mg IVP STAT STA PRN Reason: Protocol Stop: 10/02/16 16:56 Last Admin: 10/02/16 17:10 Dose: 5 mg Diazepam (Valium) 5 mg IVP STAT STA PRN Reason: Protocol Stop: 10/02/16 17:37 Last Admin: 10/02/16 17:59 Dose: 5 mg Diazepam (Valium) 5 mg IVP Q8H PRN; Protocol PRN Reason: Symptoms of alcohol withdrawl Last Admin: 10/03/16 07:16 Dose: 5 mg Re-Assess: Reassess Psych Meds Document 10/03/16 08:16 MMA (Rec: 10/03/16 08:40 MMA [facility] [id number]) Reassess Psych Med Ineffective-LIP notifed Enoxaparin Sodium (Lovenox) 75 mg SC Q12 TONI PRN Reason: Protocol Last Admin: 10/02/16 23:47 Dose: 75 mg Folic Acid (Folic Acid) 1 mg PO STAT [facility] Last Admin: 10/02/16 22:00 Dose: Hydrocortisone Sodium Succinate (Solu-Cortef) 50 mg IVP Q6H [facility] Last Admin: 10/07/16 12:38 Dose: 50 mg Multivitamins/Vitamin C 10 ml/Thiamine HCl 100 mg/ Folic Acid 1 mg/ Sodium Chloride 1,011.2 mls @ 1,000 mls/hr IV .Q1H1M ONE Stop: 10/02/16 17:39 Last Admin: 10/02/16 17:30 Dose: 1,000 mls/hr Sodium Chloride (Sodium Chloride 0.9%) 1,000 mls @ 999 mls/hr IV .Q1H1M STA Stop: 10/02/16 18:15 Last Admin: 10/02/16 17:22 Dose: 999 mls/hr Potassium Chloride (Potassium Chloride 20 Meq/100 Ml) 20 meq in 100 mls @ 50 mls/hr IVPB Q2H [facility] Stop: 10/02/16 21:29 Last Admin: 10/02/16 20:55 Dose: 50 mls/hr Sodium Chloride (Sodium Chloride 0.9%) 1,000 mls @ 125 mls/hr IV .Q8H [facility] Stop: 10/03/16 01:14 Last Admin: 10/02/16 18:37 Dose: 125 mls/hr Magnesium Sulfate/Dextrose (Magnesium Sulfate 1 Gm/100 Ml D5w) 1 gm in 100 mls @ 100 mls/hr IVPB ONCE ONE Stop: 10/02/16 19:29 Last Admin: 10/02/16 18:57 Dose: 100 mls/hr Potassium Chloride 20 meq/ (Sodium Chloride) 1,010 mls @ 125 mls/hr IV .Q8H5M [facility] Stop: 10/03/16 01:44 Last Admin: 10/03/16 00:06 Dose: 125 mls/hr Potassium Phosphate 30 mmole/ (Sodium Chloride) 260 mls @ 42.5 mls/hr IVPB ONCE ONE Stop: 10/03/16 05:21 Last Admin: 10/02/16 23:51 Dose: 42.5 mls/hr Potassium Chloride 20 meq/ (Sodium Chloride) 1,010 mls @ 100 mls/hr IV .Q10H6M [facility] Last Admin: 10/04/16 08:10 Dose: 100 mls/hr Potassium Chloride (Potassium Chloride 10 Meq/100 Ml) 10 meq in 100 mls @ 100 mls/hr IVPB Q2H [facility] Stop: 10/03/16 00:29 Last Admin: 10/02/16 23:40 Dose: 100 mls/hr Aztreonam 500 mg/ Sodium (Chloride) 100 mls @ 100 mls/hr IVPB Q8 [facility] PRN Reason: Protocol Stop: 10/03/16 06:59 Last Admin: 10/03/16 05:07 Dose: 100 mls/hr Vancomycin HCl (Vancomycin 1gm) 1 gm in 250 mls @ 167 mls/hr IVPB Q12H [facility] PRN Reason: Protocol Last Admin: 10/05/16 00:00 Dose: 167 mls/hr Potassium Chloride (Potassium Chloride 10 Meq/100 Ml) 10 meq in 100 mls @ 100 mls/hr IVPB Q2H [facility]ON[facility] Stop: 10/03/16 07:59 Last Admin: 10/03/16 06:59 Dose: 100 mls/hr Magnesium Sulfate 2 gm/ Sodium (Chloride) 104 mls @ 102 mls/hr IVPB ONCE ONE Stop: 10/03/16 08:34 Last Admin: 10/03/16 09:10 Dose: 102 mls/hr Potassium Chloride (Potassium Chloride 20 Meq/100 Ml) 20 meq in 100 mls @ 50 mls/hr IVPB ONCE ONE Stop: 10/03/16 09:33 Last Admin: 10/03/16 09:42 Dose: Meropenem 1g/NS 100mL IVPB (Meropenem 1g/Ns 100ml Ivpb) 1 gm in 100 mls @ 100 mls/hr IVPB STAT STA PRN Reason: Protocol Stop: 10/03/16 08:42 Last Admin: 10/03/16 08:29 Dose: 100 mls/hr Dexmedetomidine HCl (Precedex 4 Mcg/Ml (100 Ml)) 400 mcg in 100 mls @ 3.765 mls /hr IV .Q24H PRN; Protocol; 0.2 MCG/KG/HR PRN Reason: Agitation Last Titration: 10/04/16 08:45 Dose: 0 mcg/kg/hr, 0 mls/hr Dextrose/Lactated Ringer's (Dextrose 5%/Lactated Ringer's) 1,000 mls @ 100 mls/ hr IV .Q10H TONI Metronidazole (Flagyl) 250 mg in 50 mls @ 100 mls/hr IVPB Q8 TONI PRN Reason: Protocol Stop: 10/12/16 14:01 Last Admin: 10/05/16 05:26 Dose: 100 mls/hr Meropenem 1g/NS 100mL IVPB (Meropenem 1g/Ns 100ml Ivpb) 1 gm in 100 mls @ 100 mls/hr IVPB Q8 TONI PRN Reason: Protocol Stop: 10/12/16 14:01 Last Admin: 10/05/16 14:27 Dose: 100 mls/hr Potassium Chloride (Potassium Chloride 20 Meq/100 Ml) 20 meq in 100 mls @ 50 mls/hr IVPB Q2H [facility]ON[facility] Stop: 10/03/16 18:44 Last Admin: 10/03/16 16:51 Dose: 50 mls/hr Sodium Chloride (Sodium Chloride 0.9%) 500 mls @ 999 mls/hr IV .Q31M [facility] Stop: 10/03/16 21:00 Last Admin: 10/02/16 20:30 Dose: 999 mls/hr Potassium Chloride (Potassium Chloride 20 Meq/100 Ml) 20 meq in 100 mls @ 50 mls/hr IVPB Q2H [facility] Stop: 10/04/16 02:44 Last Admin: 10/04/16 00:43 Dose: 50 mls/hr Sodium Chloride (Sodium Chloride 0.9%) 500 mls @ 999 mls/hr IV .Q31M [facility] Stop: 10/04/16 02:36 Last Admin: 10/04/16 02:58 Dose: 999 mls/hr Dextrose (Dextrose 5% In Water) 500 mls @ 100 mls/hr IV .Q5H [facility] Last Admin: 10/04/16 23:33 Dose: 100 mls/hr Potassium Chloride (Potassium Chloride 20 Meq/100 Ml) 20 meq in 100 mls @ 50 mls/hr IVPB Q2H [facility] Stop: 10/04/16 14:29 Last Admin: 10/04/16 13:51 Dose: 50 mls/hr Propofol (Diprivan) 1,000 mg in 100 mls @ 2.259 mls/hr IV .Q24H PRN; Protocol; 5 MCG/KG/MIN PRN Reason: TITRATE PER MD ORDER Last Titration: 10/05/16 07:05 Dose: 0 mcg/kg/min, 0 mls/hr Propofol (Diprivan) Confirm Administered Dose 1,000 mg in 100 mls @ ud .ROUTE .STK-MED ONE Stop: 10/04/16 22:09 Sodium Chloride (Sodium Chloride 0.9%) 500 mls @ 999 mls/hr IV .Q31M [facility] Stop: 10/04/16 23:15 Last Admin: 10/04/16 23:25 Dose: 999 mls/hr Sodium Bicarbonate 150 meq/ (Sodium Chloride) 1,150 mls @ 100 mls/hr IV .[id number] TONI Sodium Bicarbonate 150 meq/ (Sodium Chloride) 1,150 mls @ 100 mls/hr IV .[id number] [facility] Last Admin: 10/05/16 02:22 Dose: 100 mls/hr Sodium Chloride (Sodium Chloride 0.9%) 500 mls @ 999 mls/hr IV .Q31M [facility] Stop: 10/05/16 04:46 Last Admin: 10/05/16 04:47 Dose: 999 mls/hr Albumin Human (Albumin Human 25% (25 Gm/100 Ml)) 100 mls @ 1 mls/min IVPB ONCE ONE Stop: 10/05/16 05:56 Last Admin: 10/05/16 04:43 Dose: 1 mls/min Vasopressin 20 units/ Dextrose 101 mls @ 9.09 mls/hr IV .Q11H7M TONI; 0.03 U/MIN PRN Reason: Protocol Last Admin: 10/06/16 04:38 Dose: 9.09 mls/hr NOREPINEPHRINE BIT/0.9 % NACL (Levophed 4 Mg/ 250 Ml Ns Premixed) 4 mg in 250 mls @ 15 mls/hr IV .[id number] PRN; Protocol; 4 MCG/MIN PRN Reason: TITRATE PER MD ORDER Last Titration: 10/06/16 15:19 Dose: 0 mcg/min, 0 mls/hr Linezolid (Zyvox 600mg/300ml D5w) 600 mg in 300 mls @ 200 mls/hr IVPB Q12 TONI PRN Reason: Protocol Stop: 10/12/16 10:01 Last Admin: 10/05/16 21:07 Dose: 200 mls/hr Potassium Chloride (Potassium Chloride 20 Meq/100 Ml) 20 meq in 100 mls @ 50 mls/hr IVPB ONCE ONE Stop: 10/05/16 15:50 Last Admin: 10/05/16 14:27 Dose: 50 mls/hr Potassium Chloride (Potassium Chloride 20 Meq/100 Ml) 20 meq in 100 mls @ 50 mls/hr IVPB Q2H [facility]ONI Stop: 10/05/16 22:44 Last Admin: 10/05/16 21:45 Dose: 50 mls/hr Magnesium Sulfate 2 gm/ Sodium (Chloride) 104 mls @ 102 mls/hr IVPB ONCE ONE Stop: 10/05/16 20:26 Last Admin: 10/05/16 19:36 Dose: 102 mls/hr Meropenem 500 mg/ Sodium (Chloride) 100 mls @ 100 mls/hr IVPB Q8 TONI PRN Reason: Protocol Stop: 10/15/16 14:01 Last Admin: 10/08/16 14:07 Dose: 100 mls/hr Vancomycin HCl (Vancomycin 1gm) 1 gm in 250 mls @ 167 mls/hr IVPB STAT STA PRN Reason: Protocol Stop: 10/06/16 09:23 Last Admin: 10/06/16 09:31 Dose: 167 mls/hr Sodium Chloride (Sodium Chloride 0.9%) 1,000 mls @ 999 mls/hr IV .Q1H1M [facility] Stop: 10/06/16 11:27 Last Admin: 10/06/16 11:11 Dose: 999 mls/hr Magnesium Sulfate 2 gm/ Sodium (Chloride) 104 mls @ 102 mls/hr IVPB ONCE ONE Stop: 10/06/16 12:41 Last Admin: 10/06/16 12:55 Dose: 102 mls/hr Calcium Chloride 1,000 mg/ (Sodium Chloride) 110 mls @ 110 mls/hr IV ONCE ONE Stop: 10/06/16 14:29 Last Admin: 10/06/16 15:17 Dose: 110 mls/hr Sodium Chloride (Sodium Chloride 0.9%) 1,000 mls @ 999 mls/hr IV .Q1H1M [facility] Stop: 10/06/16 17:22 Last Admin: 10/06/16 16:38 Dose: 999 mls/hr Potassium Chloride (Potassium Chloride 20 Meq/100 Ml) 20 meq in 100 mls @ 50 mls/hr IVPB Q2H [facility] Stop: 10/07/16 12:29 Last Admin: 10/07/16 10:31 Dose: 50 mls/hr Potassium Chloride 40 meq/ (Sodium Chloride) 1,020 mls @ 125 mls/hr IV .Q8H10M [facility] Last Admin: 10/08/16 05:00 Dose: 125 mls/hr Methylprednisolone 1 gm/ (Sodium Chloride) 250 mls @ 250 mls/hr IV Q24H [facility] Stop: 10/09/16 14:59 Last Admin: 10/07/16 16:45 Dose: 250 mls/hr Potassium Chloride (Potassium Chloride 20 Meq/100 Ml) 20 meq in 100 mls @ 50 mls/hr IVPB ONCE ONE Stop: 10/08/16 13:16 Last Admin: 10/08/16 11:27 Dose: 50 mls/hr Potassium Chloride (Potassium Chloride 10 Meq/100 Ml) 10 meq in 100 mls @ 100 mls/hr IVPB Q2H [facility] Stop: 10/09/16 21:29 Last Admin: 10/09/16 21:48 Dose: 100 mls/hr Lactulose (Enulose) 20 gm PO Q6H [facility] Last Admin: 10/05/16 14:29 Dose: 20 gm Lorazepam (Ativan) 2 mg IVP ONCE ONE PRN Reason: Protocol Stop: 10/02/16 16:40 Last Admin: 10/02/16 17:02 Dose: 2 mg Midodrine (Proamatine) 5 mg PO TID TONI Last Admin: 10/04/16 18:37 Dose: 5 mg Ondansetron HCl (Zofran Inj) 4 mg IVP STAT ST[facility] Stop: 10/02/16 16:40 Last Admin: 10/02/16 17:01 Dose: 4 mg Pantoprazole Sodium (Protonix Ec Tab) 20 mg PO 0600,1600 [facility] Last Admin: 10/03/16 05:05 Dose: 20 mg Potassium Chloride (K-Dur 20 Meq Er Tab) 40 meq PO STAT ST[facility] Stop: 10/02/16 17:20 Last Admin: 10/02/16 17:55 Dose: Potassium Chloride (K-Dur 20 Meq Er Tab) 20 meq PO STAT STA Stop: 10/02/16 23:13 Last Admin: 10/02/16 23:47 Dose: 20 meq Potassium Chloride (K-Dur 20 Meq Er Tab) 40 meq PO Q2 TONI Stop: 10/03/16 10:01 Last Admin: 10/03/16 08:31 Dose: 40 meq Potassium Chloride (Potassium Chloride Oral Soln) 40 meq PO ONCE ONE Stop: 10/03/16 16:54 Last Admin: 10/03/16 17:04 Dose: 40 meq Potassium Chloride (Potassium Chloride Oral Soln) 40 meq PO ONCE ONE Stop: 10/06/16 07:39 Last Admin: 10/06/16 08:41 Dose: 40 meq Potassium Chloride (Potassium Chloride Oral Soln) 40 meq PO ONCE ONE Stop: 10/07/16 15:15 Last Admin: 10/07/16 16:45 Dose: 40 meq Potassium Chloride (Potassium Chloride Oral Soln) 20 meq PO STAT STA Stop: 10/09/16 08:35 Last Admin: 10/09/16 08:45 Dose: 20 meq Potassium Phos/Sodium Phos (Neutra-Phos) 1 pkt PO TID TONI Last Admin: 10/05/16 17:36 Dose: 1 pkt Sodium Bicarbonate (Sodium Bicarbonate 8.4% (50 Meq) Syringe) 50 meq IVP ONCE ONE Stop: 10/04/16 22:07 Last Admin: 10/04/16 23:26 Dose: 50 meq Sodium Bicarbonate (Sodium Bicarbonate 8.4% (50 Meq) Syringe) 50 meq IVP ONCE ONE Stop: 10/04/16 22:07 Last Admin: 10/04/16 23:27 Dose: 50 meq Sodium Bicarbonate (Sodium Bicarbonate 8.4% (50 Meq) Syringe) 50 meq IVP ONCE ONE Stop: 10/04/16 22:08 Last Admin: 10/04/16 23:27 Dose: 50 meq Sodium Bicarbonate (Sodium Bicarbonate 8.4% (50 Meq) Syringe) 50 meq IVP ONCE ONE Stop: 10/05/16 05:51 Last Admin: 10/05/16 06:15 Dose: 50 meq Sodium Bicarbonate (Sodium Bicarbonate 8.4% (50 Meq) Syringe) 50 meq IVP ONCE ONE Stop: 10/05/16 05:52 Last Admin: 10/05/16 06:13 Dose: 50 meq Sodium Bicarbonate (Sodium Bicarbonate 8.4% (50 Meq) Syringe) 50 meq IVP ONCE ONE Stop: 10/05/16 05:53 Last Admin: 10/05/16 06:14 Dose: 50 meq - 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 Disposition/Present on Arrival - Present on Arrival Any Indicators Present on Arrival: No History of DVT/PE: No History of Uncontrolled Diabetes: No Urinary Catheter: No History of Decub. Ulcer: No History Surgical Site Infection Following: None - Disposition Have Diagnosis and Disposition been Completed?: Yes Disposition Time: 16:38 Patient Plan: Admission, ICU - Disposition Diagnosis: Alcohol abuse, Alcohol withdrawal, Abnormal EKG, Hypokalemia, Elevated troponin Disposition: HOSPITALIZED Patient Problems: Current Active Problems Problem Status Onset Abnormal EKG Acute Acute hypercapnic respiratory failure Acute Acute renal failure Acute Alcohol withdrawal Acute Elevated troponin Acute Hypocalcemia Acute Hypokalemia Acute Respiratory acidosis Acute SIRS (systemic inflammatory response syndrome) Acute Alcohol abuse Chronic Condition: GUARDED
[2016-10-02] MEDS ORDERED: Multivitamin (MVI) 10 ML, Thiamine 100 MG, Folic Acid 1 MG in Sodium Chloride 0.9% 1,00... IV ONE (16:39)
[2016-10-02] MEDS ORDERED: diaZEpam 10 mg/2 ml Inj IVP STA ×3 (16:48→17:36)
[2016-10-02 17:12] LABS: BASO # 0.01 K/mm3 (0.0-2.0); BASO % 0.2 % (0.0-3.0); GRAN # 2.39 (1.4-6.5); GRAN % 48.9 % (50.0-68.0); HEMATOCRIT 31.6 % (42.0-52.0); LYMPH % 41.7 % (22.0-35.0); MEAN CELL VOLUME 92.9 fl (80.0-105.0); MEAN CORPUSCULAR HEMOGLOBIN 33.5 pg (25.0-35.0); MEAN CORPUSCULAR HGB CONC 36.1 g/dl (31.0-37.0); MEAN PLATELET VOLUME 12.4 fl (7.0-11.0); MONO # 0.5 (0.1-0.6); MONO % 9.2 % (1.0-6.0); RED CELL DISTRIBUTION WIDTH 15.2 % (11.5-14.5); WHITE BLOOD COUNT 4.9 10^3/ul (4.5-11.0)
[2016-10-02] MEDS ORDERED: Sodium Chloride 0.9% 1,000 ML IV STA ×2 (17:15→17:40)
[2016-10-02] MEDS ORDERED: Potassium Chloride 20 mEq ER Tab PO STA ×2 (17:19→23:12)
[2016-10-02 18:24] LABS: ALB/GLOB RATIO 0.9 (1.1-1.8); ALKALINE PHOSPHATASE 62 U/L (38-133); ALT/SGPT 79 U/L (7-56); AST/SGOT 194 U/L (15-59); BILIRUBIN,TOTAL 5.5 mg/dL (0.2-1.3); BLOOD UREA NITROGEN 18 mg/dL (7-21); CARBON DIOXIDE 32 mmol/L (21-33); CHLORIDE 101 mmol/L (98-107); GFR AFRICAN-AMERICAN > 60; GLUCOSE,RANDOM 93 mg/dL (70-110); LIPASE 523 U/L (23-300); MAGNESIUM 1.5 mg/dL (1.7-2.2); SODIUM 141 mmol/L (132-148); TOTAL PROTEIN 5.4 g/dL (5.8-8.3)
[2016-10-02 18:27] LABS: PHOSPHOROUS 1.4 mg/dL (2.5-4.5); POTASSIUM 1.6 mmol/L (3.6-5.0)
[2016-10-02] MEDS ORDERED: Magnesium Sulfate 1 gm in D5W 1 GM/100 ML BAG IVPB ONE (18:30)
[2016-10-02 18:35] LABS: TROPONIN I 0.15 ng/mL
--- NOTE | 2016-10-02 21:49 | CT ---
EXAM: CT Head Without Intravenous Contrast EXAM DATE/TIME: 10/02/2016 8:13 PM CLINICAL HISTORY: 56 years old, male; Signs and symptoms; Other: R. O hemorrage; Additional info: R/O hemorrhage TECHNIQUE: Axial computed tomography images of the head/brain without intravenous contrast. All CT scans at this facility use one or more dose reduction techniques, viz.: automated exposure control; ma/kV adjustment per patient size (including targeted exams where dose is matched to indication; i.e. head); or iterative reconstruction technique. COMPARISON: Prior head CT of 06/18/2016 FINDINGS: LIMITATIONS: Asymmetric positioning of the patient's head in the CT gantry. Mild streak/motion artifact. BRAIN: Diffuse, age-related cortical atrophy and ventriculomegaly. No significant acute abnormality identified. No acute hemorrhage seen within the brain. No acute extra-axial fluid collections visualized. No evidence of significant mass effect within the brain. VENTRICLES: See above. BONES/JOINTS: No acute fractures or other acute bony abnormality noted. SOFT TISSUES: No acute abnormality of the visualized soft tissues is seen. VASCULATURE: Atherosclerotic calcification. SINUSES: Visualized paranasal sinuses appear clear. MASTOID AIR CELLS: Mastoid air cells appear clear. IMPRESSION: - No acute findings seen within the brain. - See above for remaining findings.
--- NOTE | 2016-10-02 22:33 | CP.PCM.HP ---
Addendum entered and electronically signed by Summer Wilson DO 10/03/16 06:14 : Patient is more alert, states he has been having experiencing diarrhea for 3 days. Since admission to ICU, nurse reported patient had multiple episodes of diarrhea. Patient also has reducible umbilical hernia, and mildly distended bowel. Will obtain stool c diff, will consider getting CT abdomen and pelvis. Consider surgery consult. Original Note: <CHARLOTTE FROST - Last Filed: 10/03/16 02:28> History of Present Illness - History of Present Illness History of Present Illness: Charlotte Frost, PGY1, H&P for Dr. Matt: CC: tremors x 2 days 56M with PMH chronic ETOH abuse, cirrhosis, Hep C, presents with anxiety and tremors x 2 days [employer]. Pt already received Valium and Ativan when I saw the patient, thus ROS obtained from previous reports. Pt stopped drinking 2 days ago and started experiencing tremors, nausea, vomiting. Denies neck pain/ stiffness, cp, sob, night sweats, facial twitching, numbness and tingling. Pt was recently discharged from [facility] [place] on 07/2016 for lower extremity rash, alcohol withdrawal and hypokalemia. In ED, pt found to be afebrile, HR 126, S tachy with PVCs, T wave inversion on lead V2-V6, hypokalemia 1.6, hypomagnesemia 1.5, hypophosph 1.4, transaminitis, elevated trop x1, nrml CK MB, lipase 523. Pt received Valium 5 mg IVx2, ativan 2 mg IVx1, 2L NS bolus, MgSO4 1 gm IVx1, KCl 40 mEQ POx1, KCl 20 mEQ IVx2, ASA 325 mg POx1. PMH: Liver cirrhosis, Gastritis, Hepatitis C, transaminitis, pancytopenia, ETOH withdrawal/abuse, esophageal varices, hypertension PSH: Colonic polypectomy(4 removed.) Feb 2105, Banding of varices. All: pseudoephedrine - nausea sulfa - angioedema PCN - anxiety FH: Father of liver cancer, mother of breast cancer, sister had brain aneurism. SH: Smokes half PPD x 30 years, ETOH use 1 pint per day. Drugs-history of heroin abuse Medications: refer to MAR Present on Admission - Present on Admission Any Indicators Present on Admission: No History of DVT/PE: No History of Uncontrolled Diabetes: No Urinary Catheter: No Decubitus Ulcer Present: No History Surgical Site Infection Following: None Review of Systems - Review of Systems Systems not reviewed;Unavailable: Intoxicated, Other Past Patient History - Infectious Disease Hx of Infectious Diseases: None - Tetanus Immunizations Tetanus Immunization: Unknown - Past Medical History & Family History Past Medical History?: Yes - Past Social History Smoking Status: Heavy Smoker > 10 Cigarettes Daily - CARDIAC Hx Cardiac Disorders: No - PULMONARY Hx Respiratory Disorders: No Other/Comment: Active smoker - NEUROLOGICAL Hx Neurological Disorder: Yes Hx Seizures: Yes - HEENT Hx HEENT Problems: Yes (eyeglasses) - RENAL Hx Chronic Kidney Disease: No - ENDOCRINE/METABOLIC Hx Endocrine Disorders: No - HEMATOLOGICAL/ONCOLOGICAL Hx Blood Disorders: No - INTEGUMENTARY Hx Dermatological Problems: No - MUSCULOSKELETAL/RHEUMATOLOGICAL Hx Falls: No - GASTROINTESTINAL Hx Gastrointestinal Disorders: Yes Other/Comment: Liver Dx, esophogeal varices, - GENITOURINARY/GYNECOLOGICAL Hx Genitourinary Disorders: No - PSYCHIATRIC Hx Psychophysiologic Disorder: Yes Hx Depression: Yes Hx Substance Use: No - SURGICAL HISTORY Other/Comment: s/p banding of varices x2. endoscopy - ANESTHESIA Hx Anesthesia: Yes Hx Anesthesia Reactions: No Hx Malignant Hyperthermia: No Meds Allergies/Adverse Reactions: Allergies Allergy/AdvReac Type Severity Reaction Status Date / Time pseudoephedrine HCl Allergy Mild NAUSEA Verified 10/02/16 19:19 [From Sudafed] Sulfa (Sulfonamide Allergy Mild ANGIOEDEMA Verified 10/02/16 19:19 Antibiotics) Penicillins AdvReac Anxiety Verified 10/02/16 19:19 Physical Exam - Constitutional Appears: No Acute Distress, Unkempt, Older Than Stated Age, Cachectic, Chronically Ill - Head Exam Head Exam: ATRAUMATIC, NORMOCEPHALIC Additional comments: Neg Kernigs and Brudzinski signs. - Eye Exam Eye Exam: Normal appearance, PERRL. absent: Conjunctival injection, Scleral icterus - ENT Exam ENT Exam: Mucous Membranes Dry - Neck Exam Neck exam: Negative for: Tenderness - Respiratory Exam Respiratory Exam: Clear to Auscultation Bilateral, NORMAL BREATHING PATTERN. absent: Accessory Muscle Use, Rales, Rhonchi, Wheezes - Cardiovascular Exam Cardiovascular Exam: Tachycardia, +S1, +S2. absent: JVD, Systolic Murmur - GI/Abdominal Exam GI & Abdominal Exam: Normal Bowel Sounds, Soft. absent: Distended, Firm, Mass, Organomegaly, Rigid, Tenderness Additional comments: Negative fluid wave and shifting dullness. No bulging flanks or flank dullness, or caput medusae. - Extremities Exam Extremities exam: Positive for: normal inspection, pedal pulses present. Negative for: calf tenderness, pedal edema, tenderness - Back Exam Back exam: NORMAL INSPECTION. absent: rash noted, tenderness - Neurological Exam Additional comments: s/p Valium. Awake, oriented to self and place. GCS 14 ([id number]). follows simple commands. responds appropriately. - Skin Skin Exam: Dry, Warm Additional comments: unable to assess asterixis. Results - Vital Signs Recent Vital Signs: Last Vital Signs Temp 98.7 F 10/02/16 17:00 Pulse 106 H 10/02/16 19:00 Resp 33 H 10/02/16 19:00 BP 126/72 10/02/16 19:00 Pulse Ox 97 10/02/16 19:00 - Labs Result Diagrams: 10/02/16 17:00 10/02/16 22:40 Assessment & Plan - Assessment and Plan (Free Text) Assessment: 56M with PMH significant for cirrhosis, etoh abuse/withdrawal, admitted for severe hypokalemia with EKG changes, etoh withdrawal, r/o NSTEMI, and transaminitis. Plan: 1. Severe hypokalemia with EKG changes 2/2 likely hypomagnesemia with low intake from alcohol withdrawal vs GI losses (diarrhea) vs less likely RTA type 1 or hyperaldosteronism - Received KCl 40 meq POx1 and KCl20 meq IVx2 - replete and will recheck K level q 2h - EKG 10/02 shows HR 126. S tachy with PVCs. T wave inversions in II, III, AVF, V2-V6. - Elevated CK 277 likely from hypokalemia. Cont to monitor. 2. Hypomagnesemia 2/2 likely GI loss vs low intake 2/2 alcoholism: - replete Mg - repeat BMP 3. Hypophosphatemia 2/2 likely GI loss vs low intake 2/2 alcoholism: - replete Phosp - repeat BMP 4. Alcohol withdrawal: - EtOH<10, pt reported he has EtOH 2 days ago. - Pt has a hx of alcohol withdrawal seizures, received Valium 5 mg IVx2, and ativan 2 mg IVx1 - received banana bag 1L - CIWA protocol, ativan 2 mg q2 prn - Give thiamine and folate daily PO. - Fall precautions - Seizure precautions 7. Trop leak, r/o NSTEMI: - Trop 0.15, CK MB 3.4, f/u serial trops. - received ASA 325 mg PO x1. started on ASA 81 mg. - f/u Cardio c/s Dr [place] - Head CT neg for ICH or acute findings. Started on therapeutic Lovenox 75 mg sq q 12h. - Consider BB (will hold since dehydrated and low BP), and statin 8. Transaminitis: - likely 2/2 cirrhosis with acute liver injury likely from ETOH vs Hep C - Hep B Ab+ on 07/2016, likely vaccination - Hep C 04/2016, RNA+, Ab+, unknown if tx received? Will Repeat Hep panel. Consider GI c/s. - F/u Pt, PTT, INR. Calculate MELDs score. pt referred earlier for liver transplant at [facility]. unclear if he followed. - Obtain abdominal US, r/o ascites 9. AMS 2/2 likely ETOH withdrawal vs acute drug intox vs hepatic encephalopathy - ETOH level low today. F/u UDS, NH3 level. 10. Hypoalbuminemia likely 2/2 low intake from alcoholism: - Cont to monitor 11. Elevated LDH 2/2 likely cirrhosis vs hemolysis vs heart disease - Ordered retic count. F/u abdominal US. - Consider blood smear and tay test 12. Chronic normocytic anemia: - H & H stable, obtain retic count, iron panel, ferritin, tibc, b12, folate, TSH. order blood smear. - hgb 11.4, baseline 9-10, likely 2/2 dehydration. 13. Mildly Elevated lipase: - CT abd neg for pancreatitis. etiology likely alcoholic. 14. Chronic thrombocytopenia: - Currently, plts 130, prev 70-80, stable. cont to monitor 15. SIRS (tachycardia 138, T 104), r/o sepsis likely 2/2 SBP/consider meningitis : - s/p 3 L IVF (2L NS and 1 L banana bag) - will obtain vbg with shock panel, procal - CXR no infiltrates. - Send Blood, urine and stool cultures. - Less likely meningitis based on PE (neg Brudzinski's and Kernigs signs), pt does not c/o neck pain. Will thus hold off LP, reconsider prn. - Abd US pending - Started on broad spectrum Aztreonam and Vanco 16. Reducible umbilical hernia: - Cont to monitor. DVT PPX: Lovenox sq GI PPX: Protonix Discussed with senior resident Summer and attending Dr Matt. Charlotte Frost, PGY1 - Date & Time Date: 10/02/16 Time: 01:28 <Vernell GALLEGOS,Justyn - Last Filed: 10/10/16 10:33> Results - Vital Signs Recent Vital Signs: Last Vital Signs Temp 98.4 F 10/10/16 06:30 Pulse 95 H 10/10/16 06:30 Resp 33 H 10/10/16 07:37 BP 120/76 10/10/16 06:30 Pulse Ox 97 10/10/16 07:37 - Labs Result Diagrams: 10/10/16 06:25 10/10/16 06:25 Labs: Laboratory Results - last 24 hr 10/09/16 10/10/16 10/10/16 16:38 05:50 06:25 WBC 7.3 D RBC 3.44 L Hgb 11.1 L Hct 34.2 L MCV 99.4 MCH 32.3 MCHC 32.5 RDW 15.9 H Plt Count 23 L* MPV 10.6 Gran % 69.9 H Lymph % (Auto) 25.4 [place] % (Auto) 4.4 Eos % (Auto) 0.0 L Baso % (Auto) 0.3 Gran # 5.11 Lymph # 1.9 [place] # 0.3 Eos # 0.0 Baso # 0.02 pCO2 47 H pO2 73.0 L HCO3 21.1 ABG pH 7.26 L ABG Total CO2 22.5 ABG O2 Saturation 97.0 ABG O2 Content 14.5 L ABG Base Excess -5.9 L ABG Hemoglobin 11.0 L ABG Carboxyhemoglobin 2.6 H POC ABG HHb (Measured) 2.9 ABG Methemoglobin 1.0 ABG O2 Capacity 14.9 L Hgb O2 Saturation 93.6 L FiO2 40.0 Sodium Potassium Chloride Carbon Dioxide Anion Gap BUN Creatinine Est GFR ( Amer) Est GFR (Non-Af Amer) POC Glucose (mg/dL) 105 Random Glucose Calcium Phosphorus Magnesium Total Bilirubin AST ALT Alkaline Phosphatase Total Protein Albumin Globulin Albumin/Globulin Ratio 10/10/16 06:25 WBC RBC Hgb Hct MCV MCH MCHC RDW Plt Count MPV Gran % Lymph % (Auto) [place] % (Auto) Eos % (Auto) Baso % (Auto) Gran # Lymph # [place] # Eos # Baso # pCO2 pO2 HCO3 ABG pH ABG Total CO2 ABG O2 Saturation ABG O2 Content ABG Base Excess ABG Hemoglobin ABG Carboxyhemoglobin POC ABG HHb (Measured) ABG Methemoglobin ABG O2 Capacity Hgb O2 Saturation FiO2 Sodium 142 Potassium 3.9 Chloride 112 H Carbon Dioxide 19 L Anion Gap 15 BUN 71 H Creatinine 3.9 H Est GFR ( Amer) 19 Est GFR (Non-Af Amer) 16 POC Glucose (mg/dL) Random Glucose 97 Calcium 7.5 L Phosphorus 4.4 Magnesium 2.0 Total Bilirubin 3.4 H AST 104 H D ALT 58 H Alkaline Phosphatase 94 Total Protein 5.1 L Albumin 2.6 L Globulin 2.4 Albumin/Globulin Ratio 1.1 Attending/Attestation - Attestation I have personally seen and examined this patient.: Yes I have fully participated in the care of the patient.: Yes I have reviewed all pertinent clinical information: Yes Notes (Text): -I agree with the above H&P completed by the resident physician with the following additions and/or changes: -The patient is a 56 year old man with a history of alcoholic liver cirrhosis and chronic alcohol abuse who is being admitted to the ICU with intermittent altered mentation, severe hypokalemia (K<2.0), acute watery diarrhea and acute ETOH withdrawal symptoms. He will be treated empirically for SBP using Aztreonam (given PCN and Sulfa allergies) and also with aggressive electrolyte replenishment. He will also receive IV Albumin Q6hrs. In addition, stool studies will be obtained (including C.Diff toxin). ID will be consulted.
[2016-10-02 22:53] LABS: VENOUS BLOOD GAS BASE EXCESS 7.9 mmol/L (0.0-2.0)
[2016-10-02 23:02] LABS: BLOOD UREA NITROGEN 18 mg/dL (7-21); CALCIUM 7.7 mg/dL (8.4-10.5); CARBON DIOXIDE 31 mmol/L (21-33); CHLORIDE 101 mmol/L (98-107); GFR AFRICAN-AMERICAN > 60; GLUCOSE,RANDOM 82 mg/dL (70-110); MAGNESIUM 1.9 mg/dL (1.7-2.2); SODIUM 142 mmol/L (132-148)
[2016-10-02 23:06] LABS: PHOSPHOROUS 0.9 mg/dL (2.5-4.5); POTASSIUM 1.6 mmol/L (3.6-5.0)
[2016-10-02] MEDS ORDERED: Potassium Phosphate 15 MMOLE in Sodium Chloride 0.9% 250 ML IVPB ONE (23:13)
[2016-10-02] MEDS ORDERED: Potassium Phosphate 30 MMOLE in Sodium Chloride 0.9% 250 ML IVPB ONE (23:14)
[2016-10-02] MEDS ORDERED: Enoxaparin 80 mg Syringe SC SCH (23:30)
[2016-10-02] MEDS: Vancomycin 1gm in NS 250ml 1 GM/250 ML BAG IVPB SCH (23:54)
[2016-10-03 04:22] LABS: BASO # 0.01 K/mm3 (0.0-2.0); BASO % 0.2 % (0.0-3.0); GRAN # 1.69 (1.4-6.5); GRAN % 42.2 % (50.0-68.0); LYMPH % 48.9 % (22.0-35.0); MEAN CELL VOLUME 94.3 fl (80.0-105.0); MEAN PLATELET VOLUME 10.8 fl (7.0-11.0); MONO # 0.4 (0.1-0.6); MONO % 8.7 % (1.0-6.0); PLATELET COUNT 73 10^3/uL (120.0-450.0); RED CELL DISTRIBUTION WIDTH 15.3 % (11.5-14.5); RETIC% 1.16 % (0.5-1.5)
[2016-10-03 04:29] LABS: INR 1.55 (0.93-1.08); PARTIAL THROMBOPLASTIN TIME 32.8 Seconds (23.7-30.8)
[2016-10-03 04:35] LABS: IRON 28 ug/dL (45-180)
[2016-10-03 04:41] LABS: ALKALINE PHOSPHATASE 50 U/L (38-133); ALT/SGPT 84 U/L (7-56); AST/SGOT 226 U/L (15-59); BILIRUBIN,TOTAL 6.3 mg/dL (0.2-1.3); BLOOD UREA NITROGEN 18 mg/dL (7-21); CARBON DIOXIDE 34 mmol/L (21-33); CHLORIDE 102 mmol/L (95-110); GFR AFRICAN-AMERICAN > 60; GLUCOSE,RANDOM 83 mg/dL (70-110); MAGNESIUM 1.8 mg/dL (1.7-2.2); PHOSPHOROUS 2.4 mg/dL (2.5-4.5); SODIUM 142 mmol/L (132-148); TOTAL PROTEIN 5.5 g/dL (5.8-8.3)
[2016-10-03 04:50] LABS: ALB/GLOB RATIO 0.8 (1.1-1.8)
[2016-10-03 04:51] LABS: POTASSIUM 1.7 mmol/L (3.6-5.0)
[2016-10-03 04:52] LABS: TROPONIN I 0.23 ng/mL
[2016-10-03] MEDS: Potassium Chloride 20 mEq ER Tab PO SCH ×3 (05:48→10:05)
[2016-10-03] MEDS ORDERED: Pantoprazole 20 mg EC Tab PO SCH (06:00)
[2016-10-03] MEDS ORDERED: diaZEpam 10 mg/2 ml Inj IVP PRN (07:04)
[2016-10-03 07:29] LABS: ARTERIAL BLOOD GAS HCO3 25.5 mmol/L (21-28); ARTERIAL BLOOD GAS PH 7.47 (7.35-7.45)
[2016-10-03] MEDS ORDERED: Meropenem 1g/NS 100mL IVPB 1 GM/100 ML PIGGYBACK IVPB STA (07:43)
[2016-10-03] MEDS: Magnesium Sulfate 2 GM in Sodium Chloride 0.9% 100 ML IVPB ONE ×2 (08:00→09:10)
--- NOTE | 2016-10-03 08:18 | RAD ---
HISTORY: medical clearance COMPARISON: 07/29/2016. FINDINGS: LUNGS: The lungs are well inflated and clear. PLEURA: No significant pleural effusion identified, no pneumothorax apparent. CARDIOVASCULAR: Normal. OSSEOUS STRUCTURES: No significant abnormalities. VISUALIZED UPPER ABDOMEN: Normal. OTHER FINDINGS: None. IMPRESSION: No active pulmonary disease.
[2016-10-03] MEDS: Acetaminophen 160 mg/5 ml UD PO PRN (08:30)
[2016-10-03] MEDS: Multivitamin Vitamin B Complex (Nephro-Vite) Tab PO SCH (08:31)
[2016-10-03 08:49] LABS: BLOOD UREA NITROGEN 18 mg/dL (7-21); CALCIUM 7.5 mg/dL (8.4-10.5); CARBON DIOXIDE 30 mmol/L (21-33); CHLORIDE 107 mmol/L (98-107); GFR AFRICAN-AMERICAN > 60; GLUCOSE,RANDOM 90 mg/dL (70-110); MAGNESIUM 1.8 mg/dL (1.7-2.2); PHOSPHOROUS 2.3 mg/dL (2.5-4.5); SODIUM 146 mmol/L (132-148)
[2016-10-03 08:51] LABS: POTASSIUM 2.4 mmol/L (3.6-5.0)
[2016-10-03 09:04] LABS: TROPONIN I 0.17 ng/mL
--- NOTE | 2016-10-03 09:59 | CP.PCM.HP ---
Past Patient History - Infectious Disease Hx of Infectious Diseases: None - Tetanus Immunizations Tetanus Immunization: Unknown - Past Medical History & Family History Past Medical History?: Yes - Past Social History Smoking Status: Heavy Smoker > 10 Cigarettes Daily - CARDIAC Hx Cardiac Disorders: No - PULMONARY Hx Respiratory Disorders: No Other/Comment: Active smoker - NEUROLOGICAL Hx Neurological Disorder: Yes Hx Seizures: Yes - HEENT Hx HEENT Problems: Yes (eyeglasses) - RENAL Hx Chronic Kidney Disease: No - ENDOCRINE/METABOLIC Hx Endocrine Disorders: No - HEMATOLOGICAL/ONCOLOGICAL Hx Blood Disorders: No - INTEGUMENTARY Hx Dermatological Problems: No - MUSCULOSKELETAL/RHEUMATOLOGICAL Hx Falls: No - GASTROINTESTINAL Hx Gastrointestinal Disorders: Yes Other/Comment: Liver Dx, esophogeal varices, - GENITOURINARY/GYNECOLOGICAL Hx Genitourinary Disorders: No - PSYCHIATRIC Hx Psychophysiologic Disorder: Yes Hx Depression: Yes Hx Substance Use: No - SURGICAL HISTORY Other/Comment: s/p banding of varices x2. endoscopy - ANESTHESIA Hx Anesthesia: Yes Hx Anesthesia Reactions: No Hx Malignant Hyperthermia: No Meds Allergies/Adverse Reactions: Allergies Allergy/AdvReac Type Severity Reaction Status Date / Time pseudoephedrine HCl Allergy Mild NAUSEA Verified 10/02/16 19:19 [From Sudafed] Sulfa (Sulfonamide Allergy Mild ANGIOEDEMA Verified 10/02/16 19:19 Antibiotics) Penicillins AdvReac Anxiety Verified 10/02/16 19:19 Results - Vital Signs Recent Vital Signs: Last Vital Signs Temp 103 F H 10/03/16 05:04 Pulse 125 H 10/03/16 06:30 Resp 30 H 10/03/16 06:30 BP 44/21 L 10/03/16 06:16 Pulse Ox 78 L 10/03/16 06:30 - Labs Result Diagrams: 10/03/16 04:00 10/03/16 08:30 Labs: Laboratory Results - last 24 hr 10/02/16 10/02/16 10/02/16 22:40 22:40 22:40 WBC RBC Hgb Hct MCV MCH MCHC RDW Plt Count MPV Gran % Lymph % (Auto) [place] % (Auto) Eos % (Auto) Baso % (Auto) Gran # Lymph # [place] # Eos # Baso # Retic Count PT INR APTT pCO2 pO2 34 HCO3 ABG pH ABG Total CO2 ABG O2 Saturation ABG Base Excess ABG Potassium VBG pH 7.40 VBG pCO2 55.0 VBG HCO3 34.1 H VBG Total CO2 35.8 H VBG O2 Sat (Calc) 71.4 H VBG Base Excess 7.9 H VBG Potassium 1.5 L* Sodium 142 144.0 Chloride 101 105.0 Glucose 84 Lactate 1.9 FiO2 21.0 Potassium 1.6 L* Carbon Dioxide 31 Anion Gap 12 BUN 18 Creatinine 1.0 Est GFR ( Amer) > 60 Est GFR (Non-Af Amer) > 60 Random Glucose 82 Calcium 7.7 L Phosphorus 0.9 L* Magnesium 1.9 Iron TIBC % Saturation Total Bilirubin AST ALT Alkaline Phosphatase Ammonia Lactate Dehydrogenase Total Creatine Kinase CK-MB (CK-2) CK-MB (CK-2) % Troponin I 0.21 H* D Total Protein Albumin Globulin Albumin/Globulin Ratio TSH 3rd Generation Arterial Blood Potassium Venous Blood Potassium 1.5 L* Urine Opiates Screen Urine Methadone Screen Ur Barbiturates Screen Ur Phencyclidine Scrn Ur Amphetamines Screen U Benzodiazepines Scrn U Oth Cocaine Metabols U Cannabinoids Screen 10/03/16 10/03/16 10/03/16 01:00 04:00 04:10 WBC 4.0 L RBC 3.18 L Hgb 10.5 L Hct 30.0 L MCV 94.3 MCH 33.0 MCHC 35.0 RDW 15.3 H Plt Count 73 L MPV 10.8 Gran % 42.2 L Lymph % (Auto) 48.9 H [place] % (Auto) 8.7 H Eos % (Auto) 0.0 L Baso % (Auto) 0.2 Gran # 1.69 Lymph # 2.0 [place] # 0.4 Eos # 0.0 Baso # 0.01 Retic Count 1.16 PT INR APTT pCO2 pO2 HCO3 ABG pH ABG Total CO2 ABG O2 Saturation ABG Base Excess ABG Potassium VBG pH VBG pCO2 VBG HCO3 VBG Total CO2 VBG O2 Sat (Calc) VBG Base Excess VBG Potassium Sodium 142 Chloride 102 Glucose Lactate FiO2 Potassium 1.7 L* D Carbon Dioxide 34 H Anion Gap 8 L BUN 18 Creatinine 1.0 Est GFR ( Amer) > 60 Est GFR (Non-Af Amer) > 60 Random Glucose 83 Calcium 8.0 L Phosphorus 2.4 L Magnesium 1.8 Iron TIBC % Saturation Total Bilirubin 6.3 H AST 226 H ALT 84 H Alkaline Phosphatase 50 Ammonia Lactate Dehydrogenase 1061 H Total Creatine Kinase 1122 H CK-MB (CK-2) 3.7 H CK-MB (CK-2) % Cancelled Troponin I 0.23 H* Total Protein 5.5 L Albumin 2.5 L Globulin 3.0 Albumin/Globulin Ratio 0.8 L TSH 3rd Generation Arterial Blood Potassium Venous Blood Potassium Urine Opiates Screen Negative Urine Methadone Screen Negative Ur Barbiturates Screen Negative Ur Phencyclidine Scrn Negative Ur Amphetamines Screen Negative U Benzodiazepines Scrn Positive H U Oth Cocaine Metabols Negative U Cannabinoids Screen Negative 10/03/16 10/03/16 10/03/16 04:10 04:10 04:10 WBC RBC Hgb Hct MCV MCH MCHC RDW Plt Count MPV Gran % Lymph % (Auto) [place] % (Auto) Eos % (Auto) Baso % (Auto) Gran # Lymph # [place] # Eos # Baso # Retic Count PT 16.7 H INR 1.55 H APTT 32.8 H pCO2 pO2 HCO3 ABG pH ABG Total CO2 ABG O2 Saturation ABG Base Excess ABG Potassium VBG pH VBG pCO2 VBG HCO3 VBG Total CO2 VBG O2 Sat (Calc) VBG Base Excess VBG Potassium Sodium Chloride Glucose Lactate FiO2 Potassium Carbon Dioxide Anion Gap BUN Creatinine Est GFR ( Amer) Est GFR (Non-Af Amer) Random Glucose Calcium Phosphorus Magnesium Iron 28 L TIBC 192 L % Saturation 15 L Total Bilirubin AST ALT Alkaline Phosphatase Ammonia Lactate Dehydrogenase Total Creatine Kinase CK-MB (CK-2) CK-MB (CK-2) % Troponin I Total Protein Albumin Globulin Albumin/Globulin Ratio TSH 3rd Generation 0.6 Arterial Blood Potassium Venous Blood Potassium Urine Opiates Screen Urine Methadone Screen Ur Barbiturates Screen Ur Phencyclidine Scrn Ur Amphetamines Screen U Benzodiazepines Scrn U Oth Cocaine Metabols U Cannabinoids Screen 10/03/16 10/03/16 10/03/16 04:10 07:24 08:30 WBC RBC Hgb Hct MCV MCH MCHC RDW Plt Count MPV Gran % Lymph % (Auto) [place] % (Auto) Eos % (Auto) Baso % (Auto) Gran # Lymph # [place] # Eos # Baso # Retic Count PT INR APTT pCO2 35 pO2 91.0 HCO3 25.5 ABG pH 7.47 H ABG Total CO2 26.6 ABG O2 Saturation 99.3 H ABG Base Excess 1.9 ABG Potassium 1.9 L* VBG pH VBG pCO2 VBG HCO3 VBG Total CO2 VBG O2 Sat (Calc) VBG Base Excess VBG Potassium Sodium 146.0 146 Chloride 114.0 H 107 Glucose 85 Lactate 1.2 FiO2 35.0 Potassium 2.4 L* D Carbon Dioxide 30 Anion Gap 11 BUN 18 Creatinine 1.0 Est GFR ( Amer) > 60 Est GFR (Non-Af Amer) > 60 Random Glucose 90 Calcium 7.5 L Phosphorus 2.3 L Magnesium 1.8 Iron TIBC % Saturation Total Bilirubin AST ALT Alkaline Phosphatase Ammonia < 9 L Lactate Dehydrogenase 1226 H Total Creatine Kinase 1321 H CK-MB (CK-2) 3.9 H CK-MB (CK-2) % Cancelled Troponin I 0.17 H* D Total Protein Albumin Globulin Albumin/Globulin Ratio TSH 3rd Generation Arterial Blood Potassium 1.9 L* Venous Blood Potassium Urine Opiates Screen Urine Methadone Screen Ur Barbiturates Screen Ur Phencyclidine Scrn Ur Amphetamines Screen U Benzodiazepines Scrn U Oth Cocaine Metabols U Cannabinoids Screen
[2016-10-03] MEDS: Vitamins A & D Oint UD Foilpak TOP SCH (10:06)
--- NOTE | 2016-10-03 10:08 | CP.PCM.CON ---
History of Present Illness - History of Present Illness History of Present Illness: General Surgery consult note for Dr. Berger PT is a54 M presents with a two day history of tremors secondary to ETOH abuse. PMH: hep C, cirrhosis, ETOH abuse, anxiety. Patient was admitted to ICU for hypokalemia, hypomagnesemia, hypophosphatemia, elevated AST/ALT, LDH. Patient was found to have elevated troponin I, CKMB, and a lipase of 523. Surgery team was consulted for a reducible umbilical hernia repair. PMH: Liver cirrhosis, gastritis, hepatitis C, transaminitis, pancytopenia, ETOH withdrawal/abuse, esophageal varices, and hypertension. PSH: polypectomy x 4, Variceal banding (Feb 2015) All: pseudoephedrine makes him nauseaus, sulfa drugs causes angioedema, penicilin causes anxiety FHx: father from liver cancer, mother from breast cancer. sister had brain aneurysm SHx: half a pack per day x 30 years, ETOH 1 pint per day. History of heroin abuse Past Patient History - Infectious Disease Hx of Infectious Diseases: None - Tetanus Immunizations Tetanus Immunization: Unknown - Past Medical History & Family History Past Medical History?: Yes - Past Social History Smoking Status: Heavy Smoker > 10 Cigarettes Daily - CARDIAC Hx Cardiac Disorders: No - PULMONARY Hx Respiratory Disorders: No Other/Comment: Active smoker - NEUROLOGICAL Hx Neurological Disorder: Yes Hx Seizures: Yes - HEENT Hx HEENT Problems: Yes (eyeglasses) - RENAL Hx Chronic Kidney Disease: No - ENDOCRINE/METABOLIC Hx Endocrine Disorders: No - HEMATOLOGICAL/ONCOLOGICAL Hx Blood Disorders: No - INTEGUMENTARY Hx Dermatological Problems: No - MUSCULOSKELETAL/RHEUMATOLOGICAL Hx Falls: No - GASTROINTESTINAL Hx Gastrointestinal Disorders: Yes Other/Comment: Liver Dx, esophogeal varices, - GENITOURINARY/GYNECOLOGICAL Hx Genitourinary Disorders: No - PSYCHIATRIC Hx Psychophysiologic Disorder: Yes Hx Depression: Yes Hx Substance Use: No - SURGICAL HISTORY Other/Comment: s/p banding of varices x2. endoscopy - ANESTHESIA Hx Anesthesia: Yes Hx Anesthesia Reactions: No Hx Malignant Hyperthermia: No Meds Allergies/Adverse Reactions: Allergies Allergy/AdvReac Type Severity Reaction Status Date / Time pseudoephedrine HCl Allergy Mild NAUSEA Verified 10/02/16 19:19 [From Sudafed] Sulfa (Sulfonamide Allergy Mild ANGIOEDEMA Verified 10/02/16 19:19 Antibiotics) Penicillins AdvReac Anxiety Verified 10/02/16 19:19 - Medications Medications: Current Medications Acetaminophen (Tylenol 160mg/5ml Oral Soln) 320 mg PO Q4 PRN PRN Reason: Fever >100.4 F Last Admin: 10/03/16 08:30 Dose: 320 mg Aspirin (Aspirin Chewable) 81 mg PO DAILY [facility] Diazepam (Valium) 5 mg IVP Q8H PRN; Protocol PRN Reason: Symptoms of alcohol withdrawl Last Admin: 10/03/16 07:16 Dose: 5 mg Folic Acid (Folic Acid) 1 mg PO DAILY [facility] Potassium Chloride 20 meq/ (Sodium Chloride) 1,010 mls @ 100 mls/hr IV .Q10H6M [facility] Last Admin: 10/02/16 23:50 Dose: 100 mls/hr Vancomycin HCl (Vancomycin 1gm) 1 gm in 250 mls @ 167 mls/hr IVPB Q12H TONI PRN Reason: Protocol Last Admin: 10/02/16 23:54 Dose: 167 mls/hr Dexmedetomidine HCl (Precedex 4 Mcg/Ml (100 Ml)) 400 mcg in 100 mls @ 3.765 mls /hr IV .Q24H PRN; Protocol; 0.2 MCG/KG/HR PRN Reason: Agitation Lorazepam (Ativan) 2 mg IVP Q2H PRN; Protocol PRN Reason: Agitation Last Admin: 10/03/16 08:50 Dose: 2 mg Pantoprazole Sodium (Protonix Inj) 40 mg IVP DAILY [facility] Thiamine HCl (Vitamin B1 Tab) 100 mg PO DAILY [facility] Vitamin A (Vitamin A & D Oint Ud Foilpak) 1 ea TOP DAILY [facility] Vitamin B Complex/Vit C/Folic Acid (Nephro-Mariann) 1 tab PO 0800 [facility] Last Admin: 10/03/16 08:31 Dose: 1 tab Physical Exam - Constitutional Appears: In Acute Distress, Older Than Stated Age, Chronically Ill - Eye Exam Eye Exam: EOMI, Normal appearance - ENT Exam ENT Exam: Mucous Membranes Moist - Neck Exam Neck exam: Positive for: Normal Inspection - Respiratory Exam Respiratory Exam: Decreased Breath Sounds, NORMAL BREATHING PATTERN - Cardiovascular Exam Cardiovascular Exam: Tachycardia - GI/Abdominal Exam GI & Abdominal Exam: Distended. absent: Soft Additional comments: fluid levels, ascites - Extremities Exam Extremities exam: Negative for: pedal edema, tenderness - Neurological Exam Neurological exam: Alert, Oriented x3 - Psychiatric Exam Psychiatric exam: Flat Affect, Normal Mood - Skin Skin Exam: Abrasion, Dry, Mottled, Petechiae Additional comments: Patient skin is dry, cracked, mottled, no signs of active bleeding Results - Vital Signs Recent Vital Signs: Last Vital Signs Temp 103 F H 10/03/16 05:04 Pulse 125 H 10/03/16 06:30 Resp 30 H 10/03/16 06:30 BP 44/21 L 10/03/16 06:16 Pulse Ox 78 L 10/03/16 06:30 - Labs Result Diagrams: 10/03/16 04:00 10/03/16 08:30 Labs: Laboratory Results - last 24 hr 10/02/16 10/02/16 10/02/16 22:40 22:40 22:40 WBC RBC Hgb Hct MCV MCH MCHC RDW Plt Count MPV Gran % Lymph % (Auto) [place] % (Auto) Eos % (Auto) Baso % (Auto) Gran # Lymph # [place] # Eos # Baso # Retic Count PT INR APTT pCO2 pO2 34 HCO3 ABG pH ABG Total CO2 ABG O2 Saturation ABG Base Excess ABG Potassium VBG pH 7.40 VBG pCO2 55.0 VBG HCO3 34.1 H VBG Total CO2 35.8 H VBG O2 Sat (Calc) 71.4 H VBG Base Excess 7.9 H VBG Potassium 1.5 L* Sodium 142 144.0 Chloride 101 105.0 Glucose 84 Lactate 1.9 FiO2 21.0 Potassium 1.6 L* Carbon Dioxide 31 Anion Gap 12 BUN 18 Creatinine 1.0 Est GFR ( Amer) > 60 Est GFR (Non-Af Amer) > 60 Random Glucose 82 Calcium 7.7 L Phosphorus 0.9 L* Magnesium 1.9 Iron TIBC % Saturation Total Bilirubin AST ALT Alkaline Phosphatase Ammonia Lactate Dehydrogenase Total Creatine Kinase CK-MB (CK-2) CK-MB (CK-2) % Troponin I 0.21 H* D Total Protein Albumin Globulin Albumin/Globulin Ratio TSH 3rd Generation Arterial Blood Potassium Venous Blood Potassium 1.5 L* Urine Opiates Screen Urine Methadone Screen Ur Barbiturates Screen Ur Phencyclidine Scrn Ur Amphetamines Screen U Benzodiazepines Scrn U Oth Cocaine Metabols U Cannabinoids Screen 10/03/16 10/03/16 10/03/16 01:00 04:00 04:10 WBC 4.0 L RBC 3.18 L Hgb 10.5 L Hct 30.0 L MCV 94.3 MCH 33.0 MCHC 35.0 RDW 15.3 H Plt Count 73 L MPV 10.8 Gran % 42.2 L Lymph % (Auto) 48.9 H [place] % (Auto) 8.7 H Eos % (Auto) 0.0 L Baso % (Auto) 0.2 Gran # 1.69 Lymph # 2.0 [place] # 0.4 Eos # 0.0 Baso # 0.01 Retic Count 1.16 PT INR APTT pCO2 pO2 HCO3 ABG pH ABG Total CO2 ABG O2 Saturation ABG Base Excess ABG Potassium VBG pH VBG pCO2 VBG HCO3 VBG Total CO2 VBG O2 Sat (Calc) VBG Base Excess VBG Potassium Sodium 142 Chloride 102 Glucose Lactate FiO2 Potassium 1.7 L* D Carbon Dioxide 34 H Anion Gap 8 L BUN 18 Creatinine 1.0 Est GFR ( Amer) > 60 Est GFR (Non-Af Amer) > 60 Random Glucose 83 Calcium 8.0 L Phosphorus 2.4 L Magnesium 1.8 Iron TIBC % Saturation Total Bilirubin 6.3 H AST 226 H ALT 84 H Alkaline Phosphatase 50 Ammonia Lactate Dehydrogenase 1061 H Total Creatine Kinase 1122 H CK-MB (CK-2) 3.7 H CK-MB (CK-2) % Cancelled Troponin I 0.23 H* Total Protein 5.5 L Albumin 2.5 L Globulin 3.0 Albumin/Globulin Ratio 0.8 L TSH 3rd Generation Arterial Blood Potassium Venous Blood Potassium Urine Opiates Screen Negative Urine Methadone Screen Negative Ur Barbiturates Screen Negative Ur Phencyclidine Scrn Negative Ur Amphetamines Screen Negative U Benzodiazepines Scrn Positive H U Oth Cocaine Metabols Negative U Cannabinoids Screen Negative 10/03/16 10/03/16 10/03/16 04:10 04:10 04:10 WBC RBC Hgb Hct MCV MCH MCHC RDW Plt Count MPV Gran % Lymph % (Auto) [place] % (Auto) Eos % (Auto) Baso % (Auto) Gran # Lymph # [place] # Eos # Baso # Retic Count PT 16.7 H INR 1.55 H APTT 32.8 H pCO2 pO2 HCO3 ABG pH ABG Total CO2 ABG O2 Saturation ABG Base Excess ABG Potassium VBG pH VBG pCO2 VBG HCO3 VBG Total CO2 VBG O2 Sat (Calc) VBG Base Excess VBG Potassium Sodium Chloride Glucose Lactate FiO2 Potassium Carbon Dioxide Anion Gap BUN Creatinine Est GFR ( Amer) Est GFR (Non-Af Amer) Random Glucose Calcium Phosphorus Magnesium Iron 28 L TIBC 192 L % Saturation 15 L Total Bilirubin AST ALT Alkaline Phosphatase Ammonia Lactate Dehydrogenase Total Creatine Kinase CK-MB (CK-2) CK-MB (CK-2) % Troponin I Total Protein Albumin Globulin Albumin/Globulin Ratio TSH 3rd Generation 0.6 Arterial Blood Potassium Venous Blood Potassium Urine Opiates Screen Urine Methadone Screen Ur Barbiturates Screen Ur Phencyclidine Scrn Ur Amphetamines Screen U Benzodiazepines Scrn U Oth Cocaine Metabols U Cannabinoids Screen 10/03/16 10/03/16 10/03/16 04:10 07:24 08:30 WBC RBC Hgb Hct MCV MCH MCHC RDW Plt Count MPV Gran % Lymph % (Auto) [place] % (Auto) Eos % (Auto) Baso % (Auto) Gran # Lymph # [place] # Eos # Baso # Retic Count PT INR APTT pCO2 35 pO2 91.0 HCO3 25.5 ABG pH 7.47 H ABG Total CO2 26.6 ABG O2 Saturation 99.3 H ABG Base Excess 1.9 ABG Potassium 1.9 L* VBG pH VBG pCO2 VBG HCO3 VBG Total CO2 VBG O2 Sat (Calc) VBG Base Excess VBG Potassium Sodium 146.0 146 Chloride 114.0 H 107 Glucose 85 Lactate 1.2 FiO2 35.0 Potassium 2.4 L* D Carbon Dioxide 30 Anion Gap 11 BUN 18 Creatinine 1.0 Est GFR ( Amer) > 60 Est GFR (Non-Af Amer) > 60 Random Glucose 90 Calcium 7.5 L Phosphorus 2.3 L Magnesium 1.8 Iron TIBC % Saturation Total Bilirubin AST ALT Alkaline Phosphatase Ammonia < 9 L Lactate Dehydrogenase 1226 H Total Creatine Kinase 1321 H CK-MB (CK-2) 3.9 H CK-MB (CK-2) % Cancelled Troponin I 0.17 H* D Total Protein Albumin Globulin Albumin/Globulin Ratio TSH 3rd Generation Arterial Blood Potassium 1.9 L* Venous Blood Potassium Urine Opiates Screen Urine Methadone Screen Ur Barbiturates Screen Ur Phencyclidine Scrn Ur Amphetamines Screen U Benzodiazepines Scrn U Oth Cocaine Metabols U Cannabinoids Screen Assessment & Plan - Assessment and Plan (Free Text) Assessment: 56 M tremors, ETOH abuse,ascites, reducible umbilical hernia with a PMH of ETOH abuse, cirrhosis, Hepatitis C Plan: Replete electrolytes per critical care team no surgical intervention needed at time consider paracentesis, follow up GI recommendations c/w current medical management of tachycardia, follow up cardiology recommendations c/w current medical management of ETOH abuse, valium 5 mg IVP Q8 PRN, Ativan 2 mg Q2H TONI, CIWA protocol GCS 14 ([id number]) Current K+ 2.4 T bili 6.3 LFT 226/84 INR 1.55 Albumin 2.5 MELD 18 points 6.0% 3.0 month mortality Child-[place] Class C, 82% abdominal surgery perioperative mortality Patient is a high risk patient for an umbilical hernia repair. no surgical interventions necessary at this time d/w Dr. Berger - Date & Time Date: 10/03/16 Time: 10:09
[2016-10-03] MEDS ORDERED: Dextrose 5%/Lactated Ringer's 1,000 ML IV SCH (10:13)
--- NOTE | 2016-10-03 10:27 | RAD ---
HISTORY: distended abdomen COMPARISON: No prior. FINDINGS: BOWEL: Mildly dilated loops of large and small bowel are seen. The findings are most consistent with ileus. There is no evidence of free air BONES: Normal. OTHER FINDINGS: None. IMPRESSION: Mildly dilated loops of large and small bowel are seen. The findings are most consistent with ileus. There is no evidence of free air
--- NOTE | 2016-10-03 11:36 | CARD ---
APPROVED REPORT EKG Measurement Heart [id number] <Conclusion> Sinus tachycardia with 1st degree AV block ST & T wave abnormality, consider inferior ischemia ST & T wave abnormality, consider anterolateral ischemia Abnormal ECG
--- NOTE | 2016-10-03 11:37 | CARD ---
APPROVED REPORT EKG Measurement Heart [id number] <Conclusion> Sinus tachycardia with premature supraventricular complexes Marked ST abnormality, possible inferior subendocardial injury Abnormal ECG
--- NOTE | 2016-10-03 11:42 | CARD ---
APPROVED REPORT EKG Measurement Heart [id number] <Conclusion> Sinus tachycardia with 1st degree AV block ST & T wave abnormality, consider inferior ischemia ST & T wave abnormality, consider anterolateral ischemia Abnormal ECG
[2016-10-03] MEDS: Vancomycin 25 MG/ML PO SCH ×5 (12:22→22:10)
[2016-10-03 12:24] LABS: BASO # 0.02 K/mm3 (0.0-2.0); BASO % 0.4 % (0.0-3.0); GRAN # 2.1 (1.4-6.5); GRAN % 45.5 % (50.0-68.0); HEMATOCRIT 29.5 % (42.0-52.0); LYMPH # 2.2 (1.2-3.4); MEAN CELL VOLUME 96.1 fl (80.0-105.0); MEAN CORPUSCULAR HEMOGLOBIN 33.2 pg (25.0-35.0); MEAN CORPUSCULAR HGB CONC 34.6 g/dl (31.0-37.0); MEAN PLATELET VOLUME 12.7 fl (7.0-11.0); MONO # 0.3 (0.1-0.6); MONO % 7.1 % (1.0-6.0); RED CELL DISTRIBUTION WIDTH 15.6 % (11.5-14.5); WHITE BLOOD COUNT 4.6 10^3/ul (4.5-11.0)
[2016-10-03] MEDS: Vancomycin 1gm in NS 250ml 1 GM/250 ML BAG IVPB SCH ×2 (12:24→23:00)
[2016-10-03 12:35] LABS: FOLATE 9.9 ng/mL
--- NOTE | 2016-10-03 13:52 | CP.CCUPN ---
Addendum entered and electronically signed by KENDY CERNA DO 10/03/16 17:40 : Peripheral Smear and haptoglobin ordered to rule out hemolysis in setting of increasing LDH Original Note: <KENDY CERNA - Last Filed: 10/03/16 16:52> CCU Subjective - Physician Review Subjective (Free Text): 10/03/16 13:47 Patient seen and assessed at bedside. Patient oriented to person, place, time and event. In addition to previous HPI, patient reports that on 10/02 he fell to the floor with no LOC and was laying there for 7 hours before a neighbor passing by called the ambulance. He also reports several days of non-bloody diarrhea and vomiting prior to admission and nursing reports confirmed that patient has had multiple episodes of diarrhea since being admitted. Currently, patient reports that his abdominal pain is "better". Patient denies headache, neck pain, chest pain, shortness of breath and any numbness/tingling of his extremities. CCU Objective - Vital Signs / Intake & Output Vital Signs (Last 4 hours): Vital Signs Pulse Resp BP Pulse Ox 10/03/16 13:20 90 33 H 100 10/03/16 13:10 87 37 H 100 10/03/16 13:00 98 H 20 93 L 10/03/16 12:50 89 33 H 100 10/03/16 12:40 88 25 H 100 10/03/16 12:34 93 H 34 H 10/03/16 12:33 93 H 32 H 10/03/16 12:32 96 H 27 H 10/03/16 12:31 97 H 18 10/03/16 12:30 100/64 10/03/16 12:29 95 H 35 H 10/03/16 12:28 93 H 37 H 113/62 100 10/03/16 12:27 98 H 30 H 10/03/16 12:20 96 H 28 H 100 10/03/16 12:15 95 H 27 H 87/56 L 99 10/03/16 12:10 96 H 20 95 10/03/16 12:00 89 33 H 80/62 L 100 10/03/16 11:50 90 30 H 97 10/03/16 11:45 92 H 19 101/77 93 L 10/03/16 11:40 90 29 H 98 10/03/16 11:38 97 H 27 H 10/03/16 11:37 96 H 16 10/03/16 11:30 89 34 H 96/64 L 66 L 10/03/16 11:20 103 H 42 H 61 L 10/03/16 11:10 91 H 31 H 99 10/03/16 11:00 99 H 35 H 126/66 74 L 10/03/16 10:50 104 H 25 H 70 L 10/03/16 10:40 115 H 99 10/03/16 10:31 113 H 36 H 107/74 78 L 10/03/16 10:30 105 H 34 H 87 L 10/03/16 10:20 107 H 23 115/52 L 92 L 10/03/16 10:15 104 H 21 105/72 75 L 10/03/16 10:10 109 H 19 86 L 10/03/16 10:04 105 H 22 110/63 93 L 10/03/16 10:00 110 H Intake and Output (Last 8hrs): Intake & Output 10/02/16 10/03/16 10/03/16 22:59 06:59 14:59 Intake Total 1750 Output Total 400 Balance 1350 Weight 166 lb Intake: IV 1500 Right Antecubital 450 Right Forearm 1050 Oral 250 Output: Urine 400 Condom 400 Other: # Bowel Movements 1 - Physical Exam Physical Exam Limitations: Positive for: Uncooperative (After several questions , patient began to grunt in reponse to exam questions.) Head: Positive for: Atraumatic, Normocephalic Pupils: Positive for: PERRL Extroacular Muscles: Positive for: EOMI Conjunctiva: Positive for: Normal Mouth: Positive for: Dry Neck: Positive for: Normal Range of Motion, Trachea Midline. Negative for: MIDLINE TENDERNESS, Paraspinal Tenderness, Lymphadenopathy Respiratory/Chest: Positive for: Decreased Breath Sounds. Negative for: Respiratory Distress, Accessory Muscle Use, Wheezes, Retracting, Rhonchi Cardiovascular: Positive for: Normal S1, S2, Tachycardic. Negative for: Murmurs Abdomen: Positive for: Distention, Normal Bowel Sounds, Hernias (Reducable umbilical hernia), Other (Ascites with L flank dulln to percussion). Negative for: Tenderness, Guarding Back: Positive for: Normal Inspection. Negative for: Midline Tenderness, Paraspinal Tenderness Upper Extremity: Positive for: Normal Inspection. Negative for: Cyanosis, Edema Lower Extremity: Positive for: Normal Inspection. Negative for: Edema, CALF TENDERNESS Neurological: Positive for: Other (Tremulous on exam with resting tremors present) Skin: Positive for: Warm, Laceration (scattered throughout in various stages of healing). Negative for: Normal Color Psychiatric: Positive for: Alert, Oriented x 3, Anxious - Medications Active Medications: Active Medications Generic Name Dose Route Start Last Admin Trade Name Freq PRN Reason Stop Dose Admin Acetaminophen 320 mg 10/03/16 07:45 10/03/16 08:30 Tylenol 160mg/5ml Oral Soln PO 320 mg Q4 PRN Administration Fever >100.4 F Aspirin 81 mg 10/03/16 10:00 10/03/16 10:05 Aspirin Chewable PO 81 mg DAILY TONI Administration Diazepam 5 mg 10/03/16 07:04 10/03/16 07:16 Valium IVP 5 mg Q8H PRN Administration Symptoms of alcohol withdrawl Protocol Folic Acid 1 mg 10/03/16 10:00 10/03/16 10:06 Folic Acid PO 1 mg DAILY TONI Administration Potassium Chloride 20 meq/ 1,010 mls @ 100 mls/hr 10/02/16 23:15 10/03/16 12: 24 Sodium Chloride IV 100 mls/hr .Q10H6M TONI Administration Vancomycin HCl 1 gm in 250 mls @ 167 mls/hr 10/02/16 23:45 10/03/16 12:24 Vancomycin 1gm IVPB 167 mls/hr Q12H TONI Administration Protocol Dexmedetomidine HCl 400 mcg in 100 mls @ 3.765 mls/hr 10/03/16 09:20 Precedex 4 Mcg/Ml (100 Ml) IV .Q24H PRN Agitation Protocol 0.2 MCG/KG/HR Dextrose/Lactated Ringer's 1,000 mls @ 100 mls/hr 10/03/16 10:13 Dextrose 5%/Lactated Ringer's IV .Q10H TONI Lorazepam 2 mg 10/02/16 21:28 10/03/16 08:50 Ativan IVP 2 mg Q2H PRN Administration Agitation Protocol Pantoprazole Sodium 40 mg 10/03/16 10:00 10/03/16 10:05 Protonix Inj IVP 40 mg DAILY TONI Administration Thiamine HCl 100 mg 10/03/16 10:00 10/03/16 10:06 Vitamin B1 Tab PO 100 mg DAILY TONI Administration Vancomycin HCl 125 mg 10/03/16 11:00 10/03/16 12:22 Vancocin 25 Mg/Ml (Oral Use) PO 125 mg Q6H TONI Administration Protocol Vitamin A 1 ea 10/03/16 10:00 10/03/16 10:06 Vitamin A & D Oint Ud Foilpak TOP 1 ea DAILY TONI Administration Vitamin B Complex/Vit C/Folic Acid 1 tab 10/03/16 08:00 10/03/16 08:31 Nephro-Mariann PO 1 tab 0800 TONI Administration - Patient Studies Lab Studies: Lab Studies 10/03/16 10/03/16 10/03/16 Range/Units 12:20 08:30 07:24 WBC 4.6 (4.5-11.0) 10^3/ul RBC 3.07 L (3.5-6.1) 10^6/uL Hgb 10.2 L (14.0-18.0) g/dL Hct 29.5 L (42.0-52.0) % MCV 96.1 (80.0-105.0) fl MCH 33.2 (25.0-35.0) pg MCHC 34.6 (31.0-37.0) g/dl RDW 15.6 H (11.5-14.5) % Plt Count 81 L (120.0-450.0) 10^3/uL MPV 12.7 H (7.0-11.0) fl Gran % 45.5 L (50.0-68.0) % Lymph % (Auto) 47.0 H (22.0-35.0) % [place] % (Auto) 7.1 H (1.0-6.0) % Eos % (Auto) 0.0 L (1.5-5.0) % Baso % (Auto) 0.4 (0.0-3.0) % Gran # 2.10 (1.4-6.5) Lymph # 2.2 (1.2-3.4) [place] # 0.3 (0.1-0.6) Eos # 0.0 (0.0-0.7) Baso # 0.02 (0.0-2.0) K/mm3 Retic Count (0.5-1.5) % PT (9.9-11.8) Seconds INR (0.93-1.08) APTT (23.7-30.8) Seconds pCO2 35 (35-45) mm/Hg pO2 91.0 (30-55) mm/Hg HCO3 25.5 (21-28) mmol/L ABG pH 7.47 H (7.35-7.45) ABG Total CO2 26.6 (22-28) mmol.L ABG O2 Saturation 99.3 H (95-98) % ABG Base Excess 1.9 (-2.0-3.0) mmol/L ABG Potassium 1.9 L* (3.6-5.2) mmol/L VBG pH (7.32-7.43) VBG pCO2 (40-60) VBG HCO3 (21-28) mmol/l VBG Total CO2 (22-28) mmol.L VBG O2 Sat (Calc) (40-65) % VBG Base Excess (0.0-2.0) mmol/L VBG Potassium (3.6-5.2) mmol/L Sodium 146 146.0 (132-148) mmol/L Chloride 107 114.0 H (98-107) mmol/L Glucose 85 (75-110) mg/dl Lactate 1.2 (0.7-2.1) mmol/L FiO2 35.0 % Potassium 2.4 L* D (3.6-5.0) mmol/L Carbon Dioxide 30 (21-33) mmol/L Anion Gap 11 (10-20) BUN 18 (7-21) mg/dL Creatinine 1.0 (0.5-1.4) mg/dL Est GFR ( Amer) > 60 Est GFR (Non-Af Amer) > 60 Random Glucose 90 (70-110) mg/dL Calcium 7.5 L (8.4-10.5) mg/dL Phosphorus 2.3 L (2.5-4.5) mg/dL Magnesium 1.8 (1.7-2.2) mg/dL Iron (45-180) ug/dL TIBC (261-462) ug/dL % Saturation (20-55) % Ferritin ng/mL Total Bilirubin (0.2-1.3) mg/dL AST (15-59) U/L ALT (7-56) U/L Alkaline Phosphatase (38-133) U/L Ammonia (9-33) umol/L Lactate Dehydrogenase 1226 H (333-699) U/L Total Creatine Kinase 1321 H (35-230) U/L CK-MB (CK-2) 3.9 H (0.0-3.6) ng/mL CK-MB (CK-2) % Cancelled Troponin I 0.17 H* D ng/mL Total Protein (5.8-8.3) g/dL Albumin (3.0-4.8) g/dL Globulin gm/dL Albumin/Globulin Ratio (1.1-1.8) Vitamin B12 (239-931) pg/mL Folate ng/mL Procalcitonin (0.19-0.49) NG/ML TSH 3rd Generation (0.46-4.68) MIU/ml Arterial Blood Potassium 1.9 L* (3.6-5.2) mmol/L Venous Blood Potassium (3.6-5.2) mmol/L Urine Opiates Screen (NEGATIVE) Urine Methadone Screen (NEGATIVE) Ur Barbiturates Screen (NEGATIVE) Ur Phencyclidine Scrn (NEGATIVE) Ur Amphetamines Screen (NEGATIVE) U Benzodiazepines Scrn (NEGATIVE) U Oth Cocaine Metabols (NEGATIVE) U Cannabinoids Screen (NEGATIVE) Hepatitis A IgM Ab (NEGATIVE) Hep Bs Antigen (NEGATIVE) Hep B Core IgM Ab (NEGATIVE) Hepatitis C Antibody (NEGATIVE) 10/03/16 10/03/16 10/03/16 Range/Units 04:10 04:10 04:10 WBC (4.5-11.0) 10^3/ul RBC (3.5-6.1) 10^6/uL Hgb (14.0-18.0) g/dL Hct (42.0-52.0) % MCV (80.0-105.0) fl MCH (25.0-35.0) pg MCHC (31.0-37.0) g/dl RDW (11.5-14.5) % Plt Count (120.0-450.0) 10^3/uL MPV (7.0-11.0) fl Gran % (50.0-68.0) % Lymph % (Auto) (22.0-35.0) % [place] % (Auto) (1.0-6.0) % Eos % (Auto) (1.5-5.0) % Baso % (Auto) (0.0-3.0) % Gran # (1.4-6.5) Lymph # (1.2-3.4) [place] # (0.1-0.6) Eos # (0.0-0.7) Baso # (0.0-2.0) K/mm3 Retic Count (0.5-1.5) % PT (9.9-11.8) Seconds INR (0.93-1.08) APTT (23.7-30.8) Seconds pCO2 (35-45) mm/Hg pO2 (30-55) mm/Hg HCO3 (21-28) mmol/L ABG pH (7.35-7.45) ABG Total CO2 (22-28) mmol.L ABG O2 Saturation (95-98) % ABG Base Excess (-2.0-3.0) mmol/L ABG Potassium (3.6-5.2) mmol/L VBG pH (7.32-7.43) VBG pCO2 (40-60) VBG HCO3 (21-28) mmol/l VBG Total CO2 (22-28) mmol.L VBG O2 Sat (Calc) (40-65) % VBG Base Excess (0.0-2.0) mmol/L VBG Potassium (3.6-5.2) mmol/L Sodium (132-148) mmol/L Chloride (98-107) mmol/L Glucose (75-110) mg/dl Lactate (0.7-2.1) mmol/L FiO2 % Potassium (3.6-5.0) mmol/L Carbon Dioxide (21-33) mmol/L Anion Gap (10-20) BUN (7-21) mg/dL Creatinine (0.5-1.4) mg/dL Est GFR ( Amer) Est GFR (Non-Af Amer) Random Glucose (70-110) mg/dL Calcium (8.4-10.5) mg/dL Phosphorus (2.5-4.5) mg/dL Magnesium (1.7-2.2) mg/dL Iron 28 L (45-180) ug/dL TIBC 192 L (261-462) ug/dL % Saturation 15 L (20-55) % Ferritin ng/mL Total Bilirubin (0.2-1.3) mg/dL AST (15-59) U/L ALT (7-56) U/L Alkaline Phosphatase (38-133) U/L Ammonia < 9 L (9-33) umol/L Lactate Dehydrogenase (333-699) U/L Total Creatine Kinase (35-230) U/L CK-MB (CK-2) (0.0-3.6) ng/mL CK-MB (CK-2) % Troponin I ng/mL Total Protein (5.8-8.3) g/dL Albumin (3.0-4.8) g/dL Globulin gm/dL Albumin/Globulin Ratio (1.1-1.8) Vitamin B12 (239-931) pg/mL Folate ng/mL Procalcitonin (0.19-0.49) NG/ML TSH 3rd Generation 0.6 (0.46-4.68) MIU/ml Arterial Blood Potassium (3.6-5.2) mmol/L Venous Blood Potassium (3.6-5.2) mmol/L Urine Opiates Screen (NEGATIVE) Urine Methadone Screen (NEGATIVE) Ur Barbiturates Screen (NEGATIVE) Ur Phencyclidine Scrn (NEGATIVE) Ur Amphetamines Screen (NEGATIVE) U Benzodiazepines Scrn (NEGATIVE) U Oth Cocaine Metabols (NEGATIVE) U Cannabinoids Screen (NEGATIVE) Hepatitis A IgM Ab (NEGATIVE) Hep Bs Antigen (NEGATIVE) Hep B Core IgM Ab (NEGATIVE) Hepatitis C Antibody (NEGATIVE) 10/03/16 10/03/16 10/03/16 Range/Units 04:10 04:10 04:10 WBC (4.5-11.0) 10^3/ul RBC (3.5-6.1) 10^6/uL Hgb (14.0-18.0) g/dL Hct (42.0-52.0) % MCV (80.0-105.0) fl MCH (25.0-35.0) pg MCHC (31.0-37.0) g/dl RDW (11.5-14.5) % Plt Count (120.0-450.0) 10^3/uL MPV (7.0-11.0) fl Gran % (50.0-68.0) % Lymph % (Auto) (22.0-35.0) % [place] % (Auto) (1.0-6.0) % Eos % (Auto) (1.5-5.0) % Baso % (Auto) (0.0-3.0) % Gran # (1.4-6.5) Lymph # (1.2-3.4) [place] # (0.1-0.6) Eos # (0.0-0.7) Baso # (0.0-2.0) K/mm3 Retic Count (0.5-1.5) % PT 16.7 H (9.9-11.8) Seconds INR 1.55 H (0.93-1.08) APTT 32.8 H (23.7-30.8) Seconds pCO2 (35-45) mm/Hg pO2 (30-55) mm/Hg HCO3 (21-28) mmol/L ABG pH (7.35-7.45) ABG Total CO2 (22-28) mmol.L ABG O2 Saturation (95-98) % ABG Base Excess (-2.0-3.0) mmol/L ABG Potassium (3.6-5.2) mmol/L VBG pH (7.32-7.43) VBG pCO2 (40-60) VBG HCO3 (21-28) mmol/l VBG Total CO2 (22-28) mmol.L VBG O2 Sat (Calc) (40-65) % VBG Base Excess (0.0-2.0) mmol/L VBG Potassium (3.6-5.2) mmol/L Sodium (132-148) mmol/L Chloride (98-107) mmol/L Glucose (75-110) mg/dl Lactate (0.7-2.1) mmol/L FiO2 % Potassium (3.6-5.0) mmol/L Carbon Dioxide (21-33) mmol/L Anion Gap (10-20) BUN (7-21) mg/dL Creatinine (0.5-1.4) mg/dL Est GFR ( Amer) Est GFR (Non-Af Amer) Random Glucose (70-110) mg/dL Calcium (8.4-10.5) mg/dL Phosphorus (2.5-4.5) mg/dL Magnesium (1.7-2.2) mg/dL Iron (45-180) ug/dL TIBC (261-462) ug/dL % Saturation (20-55) % Ferritin 865.0 ng/mL Total Bilirubin (0.2-1.3) mg/dL AST (15-59) U/L ALT (7-56) U/L Alkaline Phosphatase (38-133) U/L Ammonia (9-33) umol/L Lactate Dehydrogenase (333-699) U/L Total Creatine Kinase (35-230) U/L CK-MB (CK-2) (0.0-3.6) ng/mL CK-MB (CK-2) % Troponin I ng/mL Total Protein (5.8-8.3) g/dL Albumin (3.0-4.8) g/dL Globulin gm/dL Albumin/Globulin Ratio (1.1-1.8) Vitamin B12 963 H (239-931) pg/mL Folate 9.9 ng/mL Procalcitonin (0.19-0.49) NG/ML TSH 3rd Generation (0.46-4.68) MIU/ml Arterial Blood Potassium (3.6-5.2) mmol/L Venous Blood Potassium (3.6-5.2) mmol/L Urine Opiates Screen (NEGATIVE) Urine Methadone Screen (NEGATIVE) Ur Barbiturates Screen (NEGATIVE) Ur Phencyclidine Scrn (NEGATIVE) Ur Amphetamines Screen (NEGATIVE) U Benzodiazepines Scrn (NEGATIVE) U Oth Cocaine Metabols (NEGATIVE) U Cannabinoids Screen (NEGATIVE) Hepatitis A IgM Ab Negative (NEGATIVE) Hep Bs Antigen Negative (NEGATIVE) Hep B Core IgM Ab Negative (NEGATIVE) Hepatitis C Antibody Reactive (NEGATIVE) 10/03/16 10/03/16 10/03/16 Range/Units 04:10 04:00 01:00 WBC 4.0 L (4.5-11.0) 10^3/ul RBC 3.18 L (3.5-6.1) 10^6/uL Hgb 10.5 L (14.0-18.0) g/dL Hct 30.0 L (42.0-52.0) % MCV 94.3 (80.0-105.0) fl MCH 33.0 (25.0-35.0) pg MCHC 35.0 (31.0-37.0) g/dl RDW 15.3 H (11.5-14.5) % Plt Count 73 L (120.0-450.0) 10^3/uL MPV 10.8 (7.0-11.0) fl Gran % 42.2 L (50.0-68.0) % Lymph % (Auto) 48.9 H (22.0-35.0) % [place] % (Auto) 8.7 H (1.0-6.0) % Eos % (Auto) 0.0 L (1.5-5.0) % Baso % (Auto) 0.2 (0.0-3.0) % Gran # 1.69 (1.4-6.5) Lymph # 2.0 (1.2-3.4) [place] # 0.4 (0.1-0.6) Eos # 0.0 (0.0-0.7) Baso # 0.01 (0.0-2.0) K/mm3 Retic Count 1.16 (0.5-1.5) % PT (9.9-11.8) Seconds INR (0.93-1.08) APTT (23.7-30.8) Seconds pCO2 (35-45) mm/Hg pO2 (30-55) mm/Hg HCO3 (21-28) mmol/L ABG pH (7.35-7.45) ABG Total CO2 (22-28) mmol.L ABG O2 Saturation (95-98) % ABG Base Excess (-2.0-3.0) mmol/L ABG Potassium (3.6-5.2) mmol/L VBG pH (7.32-7.43) VBG pCO2 (40-60) VBG HCO3 (21-28) mmol/l VBG Total CO2 (22-28) mmol.L VBG O2 Sat (Calc) (40-65) % VBG Base Excess (0.0-2.0) mmol/L VBG Potassium (3.6-5.2) mmol/L Sodium 142 (132-148) mmol/L Chloride 102 (98-107) mmol/L Glucose (75-110) mg/dl Lactate (0.7-2.1) mmol/L FiO2 % Potassium 1.7 L* D (3.6-5.0) mmol/L Carbon Dioxide 34 H (21-33) mmol/L Anion Gap 8 L (10-20) BUN 18 (7-21) mg/dL Creatinine 1.0 (0.5-1.4) mg/dL Est GFR ( Amer) > 60 Est GFR (Non-Af Amer) > 60 Random Glucose 83 (70-110) mg/dL Calcium 8.0 L (8.4-10.5) mg/dL Phosphorus 2.4 L (2.5-4.5) mg/dL Magnesium 1.8 (1.7-2.2) mg/dL Iron (45-180) ug/dL TIBC (261-462) ug/dL % Saturation (20-55) % Ferritin ng/mL Total Bilirubin 6.3 H (0.2-1.3) mg/dL AST 226 H (15-59) U/L ALT 84 H (7-56) U/L Alkaline Phosphatase 50 (38-133) U/L Ammonia (9-33) umol/L Lactate Dehydrogenase 1061 H (333-699) U/L Total Creatine Kinase 1122 H (35-230) U/L CK-MB (CK-2) 3.7 H (0.0-3.6) ng/mL CK-MB (CK-2) % Cancelled Troponin I 0.23 H* ng/mL Total Protein 5.5 L (5.8-8.3) g/dL Albumin 2.5 L (3.0-4.8) g/dL Globulin 3.0 gm/dL Albumin/Globulin Ratio 0.8 L (1.1-1.8) Vitamin B12 (239-931) pg/mL Folate ng/mL Procalcitonin (0.19-0.49) NG/ML TSH 3rd Generation (0.46-4.68) MIU/ml Arterial Blood Potassium (3.6-5.2) mmol/L Venous Blood Potassium (3.6-5.2) mmol/L Urine Opiates Screen Negative (NEGATIVE) Urine Methadone Screen Negative (NEGATIVE) Ur Barbiturates Screen Negative (NEGATIVE) Ur Phencyclidine Scrn Negative (NEGATIVE) Ur Amphetamines Screen Negative (NEGATIVE) U Benzodiazepines Scrn Positive H (NEGATIVE) U Oth Cocaine Metabols Negative (NEGATIVE) U Cannabinoids Screen Negative (NEGATIVE) Hepatitis A IgM Ab (NEGATIVE) Hep Bs Antigen (NEGATIVE) Hep B Core IgM Ab (NEGATIVE) Hepatitis C Antibody (NEGATIVE) 10/02/16 10/02/16 10/02/16 Range/Units 23:35 22:40 22:40 WBC (4.5-11.0) 10^3/ul RBC (3.5-6.1) 10^6/uL Hgb (14.0-18.0) g/dL Hct (42.0-52.0) % MCV (80.0-105.0) fl MCH (25.0-35.0) pg MCHC (31.0-37.0) g/dl RDW (11.5-14.5) % Plt Count (120.0-450.0) 10^3/uL MPV (7.0-11.0) fl Gran % (50.0-68.0) % Lymph % (Auto) (22.0-35.0) % [place] % (Auto) (1.0-6.0) % Eos % (Auto) (1.5-5.0) % Baso % (Auto) (0.0-3.0) % Gran # (1.4-6.5) Lymph # (1.2-3.4) [place] # (0.1-0.6) Eos # (0.0-0.7) Baso # (0.0-2.0) K/mm3 Retic Count (0.5-1.5) % PT (9.9-11.8) Seconds INR (0.93-1.08) APTT (23.7-30.8) Seconds pCO2 (35-45) mm/Hg pO2 34 (30-55) mm/Hg HCO3 (21-28) mmol/L ABG pH (7.35-7.45) ABG Total CO2 (22-28) mmol.L ABG O2 Saturation (95-98) % ABG Base Excess (-2.0-3.0) mmol/L ABG Potassium (3.6-5.2) mmol/L VBG pH 7.40 (7.32-7.43) VBG pCO2 55.0 (40-60) VBG HCO3 34.1 H (21-28) mmol/l VBG Total CO2 35.8 H (22-28) mmol.L VBG O2 Sat (Calc) 71.4 H (40-65) % VBG Base Excess 7.9 H (0.0-2.0) mmol/L VBG Potassium 1.5 L* (3.6-5.2) mmol/L Sodium 144.0 (132-148) mmol/L Chloride 105.0 (98-107) mmol/L Glucose 84 (75-110) mg/dl Lactate 1.9 (0.7-2.1) mmol/L FiO2 21.0 % Potassium (3.6-5.0) mmol/L Carbon Dioxide (21-33) mmol/L Anion Gap (10-20) BUN (7-21) mg/dL Creatinine (0.5-1.4) mg/dL Est GFR ( Amer) Est GFR (Non-Af Amer) Random Glucose (70-110) mg/dL Calcium (8.4-10.5) mg/dL Phosphorus (2.5-4.5) mg/dL Magnesium (1.7-2.2) mg/dL Iron (45-180) ug/dL TIBC (261-462) ug/dL % Saturation (20-55) % Ferritin ng/mL Total Bilirubin (0.2-1.3) mg/dL AST (15-59) U/L ALT (7-56) U/L Alkaline Phosphatase (38-133) U/L Ammonia (9-33) umol/L Lactate Dehydrogenase (333-699) U/L Total Creatine Kinase (35-230) U/L CK-MB (CK-2) (0.0-3.6) ng/mL CK-MB (CK-2) % Troponin I 0.21 H* D ng/mL Total Protein (5.8-8.3) g/dL Albumin (3.0-4.8) g/dL Globulin gm/dL Albumin/Globulin Ratio (1.1-1.8) Vitamin B12 (239-931) pg/mL Folate ng/mL Procalcitonin 0.59 H (0.19-0.49) NG/ML TSH 3rd Generation (0.46-4.68) MIU/ml Arterial Blood Potassium (3.6-5.2) mmol/L Venous Blood Potassium 1.5 L* (3.6-5.2) mmol/L Urine Opiates Screen (NEGATIVE) Urine Methadone Screen (NEGATIVE) Ur Barbiturates Screen (NEGATIVE) Ur Phencyclidine Scrn (NEGATIVE) Ur Amphetamines Screen (NEGATIVE) U Benzodiazepines Scrn (NEGATIVE) U Oth Cocaine Metabols (NEGATIVE) U Cannabinoids Screen (NEGATIVE) Hepatitis A IgM Ab (NEGATIVE) Hep Bs Antigen (NEGATIVE) Hep B Core IgM Ab (NEGATIVE) Hepatitis C Antibody (NEGATIVE) 10/02/16 Range/Units 22:40 WBC (4.5-11.0) 10^3/ul RBC (3.5-6.1) 10^6/uL Hgb (14.0-18.0) g/dL Hct (42.0-52.0) % MCV (80.0-105.0) fl MCH (25.0-35.0) pg MCHC (31.0-37.0) g/dl RDW (11.5-14.5) % Plt Count (120.0-450.0) 10^3/uL MPV (7.0-11.0) fl Gran % (50.0-68.0) % Lymph % (Auto) (22.0-35.0) % [place] % (Auto) (1.0-6.0) % Eos % (Auto) (1.5-5.0) % Baso % (Auto) (0.0-3.0) % Gran # (1.4-6.5) Lymph # (1.2-3.4) [place] # (0.1-0.6) Eos # (0.0-0.7) Baso # (0.0-2.0) K/mm3 Retic Count (0.5-1.5) % PT (9.9-11.8) Seconds INR (0.93-1.08) APTT (23.7-30.8) Seconds pCO2 (35-45) mm/Hg pO2 (30-55) mm/Hg HCO3 (21-28) mmol/L ABG pH (7.35-7.45) ABG Total CO2 (22-28) mmol.L ABG O2 Saturation (95-98) % ABG Base Excess (-2.0-3.0) mmol/L ABG Potassium (3.6-5.2) mmol/L VBG pH (7.32-7.43) VBG pCO2 (40-60) VBG HCO3 (21-28) mmol/l VBG Total CO2 (22-28) mmol.L VBG O2 Sat (Calc) (40-65) % VBG Base Excess (0.0-2.0) mmol/L VBG Potassium (3.6-5.2) mmol/L Sodium 142 (132-148) mmol/L Chloride 101 (98-107) mmol/L Glucose (75-110) mg/dl Lactate (0.7-2.1) mmol/L FiO2 % Potassium 1.6 L* (3.6-5.0) mmol/L Carbon Dioxide 31 (21-33) mmol/L Anion Gap 12 (10-20) BUN 18 (7-21) mg/dL Creatinine 1.0 (0.5-1.4) mg/dL Est GFR ( Amer) > 60 Est GFR (Non-Af Amer) > 60 Random Glucose 82 (70-110) mg/dL Calcium 7.7 L (8.4-10.5) mg/dL Phosphorus 0.9 L* (2.5-4.5) mg/dL Magnesium 1.9 (1.7-2.2) mg/dL Iron (45-180) ug/dL TIBC (261-462) ug/dL % Saturation (20-55) % Ferritin ng/mL Total Bilirubin (0.2-1.3) mg/dL AST (15-59) U/L ALT (7-56) U/L Alkaline Phosphatase (38-133) U/L Ammonia (9-33) umol/L Lactate Dehydrogenase (333-699) U/L Total Creatine Kinase (35-230) U/L CK-MB (CK-2) (0.0-3.6) ng/mL CK-MB (CK-2) % Troponin I ng/mL Total Protein (5.8-8.3) g/dL Albumin (3.0-4.8) g/dL Globulin gm/dL Albumin/Globulin Ratio (1.1-1.8) Vitamin B12 (239-931) pg/mL Folate ng/mL Procalcitonin (0.19-0.49) NG/ML TSH 3rd Generation (0.46-4.68) MIU/ml Arterial Blood Potassium (3.6-5.2) mmol/L Venous Blood Potassium (3.6-5.2) mmol/L Urine Opiates Screen (NEGATIVE) Urine Methadone Screen (NEGATIVE) Ur Barbiturates Screen (NEGATIVE) Ur Phencyclidine Scrn (NEGATIVE) Ur Amphetamines Screen (NEGATIVE) U Benzodiazepines Scrn (NEGATIVE) U Oth Cocaine Metabols (NEGATIVE) U Cannabinoids Screen (NEGATIVE) Hepatitis A IgM Ab (NEGATIVE) Hep Bs Antigen (NEGATIVE) Hep B Core IgM Ab (NEGATIVE) Hepatitis C Antibody (NEGATIVE) Laboratory Results - last 24 hr 10/02/16 10/02/16 10/02/16 22:40 22:40 22:40 WBC RBC Hgb Hct MCV MCH MCHC RDW Plt Count MPV Gran % Lymph % (Auto) [place] % (Auto) Eos % (Auto) Baso % (Auto) Gran # Lymph # [place] # Eos # Baso # Retic Count PT INR APTT pCO2 pO2 34 HCO3 ABG pH ABG Total CO2 ABG O2 Saturation ABG Base Excess ABG Potassium VBG pH 7.40 VBG pCO2 55.0 VBG HCO3 34.1 H VBG Total CO2 35.8 H VBG O2 Sat (Calc) 71.4 H VBG Base Excess 7.9 H VBG Potassium 1.5 L* Sodium 142 144.0 Chloride 101 105.0 Glucose 84 Lactate 1.9 FiO2 21.0 Potassium 1.6 L* Carbon Dioxide 31 Anion Gap 12 BUN 18 Creatinine 1.0 Est GFR ( Amer) > 60 Est GFR (Non-Af Amer) > 60 Random Glucose 82 Calcium 7.7 L Phosphorus 0.9 L* Magnesium 1.9 Iron TIBC % Saturation Ferritin Total Bilirubin AST ALT Alkaline Phosphatase Ammonia Lactate Dehydrogenase Total Creatine Kinase CK-MB (CK-2) CK-MB (CK-2) % Troponin I 0.21 H* D Total Protein Albumin Globulin Albumin/Globulin Ratio Vitamin B12 Folate Procalcitonin TSH 3rd Generation Arterial Blood Potassium Venous Blood Potassium 1.5 L* Urine Opiates Screen Urine Methadone Screen Ur Barbiturates Screen Ur Phencyclidine Scrn Ur Amphetamines Screen U Benzodiazepines Scrn U Oth Cocaine Metabols U Cannabinoids Screen Hepatitis A IgM Ab Hep Bs Antigen Hep B Core IgM Ab Hepatitis C Antibody 10/02/16 10/03/16 10/03/16 23:35 01:00 04:00 WBC 4.0 L RBC 3.18 L Hgb 10.5 L Hct 30.0 L MCV 94.3 MCH 33.0 MCHC 35.0 RDW 15.3 H Plt Count 73 L MPV 10.8 Gran % 42.2 L Lymph % (Auto) 48.9 H [place] % (Auto) 8.7 H Eos % (Auto) 0.0 L Baso % (Auto) 0.2 Gran # 1.69 Lymph # 2.0 [place] # 0.4 Eos # 0.0 Baso # 0.01 Retic Count 1.16 PT INR APTT pCO2 pO2 HCO3 ABG pH ABG Total CO2 ABG O2 Saturation ABG Base Excess ABG Potassium VBG pH VBG pCO2 VBG HCO3 VBG Total CO2 VBG O2 Sat (Calc) VBG Base Excess VBG Potassium Sodium Chloride Glucose Lactate FiO2 Potassium Carbon Dioxide Anion Gap BUN Creatinine Est GFR ( Amer) Est GFR (Non-Af Amer) Random Glucose Calcium Phosphorus Magnesium Iron TIBC % Saturation Ferritin Total Bilirubin AST ALT Alkaline Phosphatase Ammonia Lactate Dehydrogenase Total Creatine Kinase CK-MB (CK-2) CK-MB (CK-2) % Troponin I Total Protein Albumin Globulin Albumin/Globulin Ratio Vitamin B12 Folate Procalcitonin 0.59 H TSH 3rd Generation Arterial Blood Potassium Venous Blood Potassium Urine Opiates Screen Negative Urine Methadone Screen Negative Ur Barbiturates Screen Negative Ur Phencyclidine Scrn Negative Ur Amphetamines Screen Negative U Benzodiazepines Scrn Positive H U Oth Cocaine Metabols Negative U Cannabinoids Screen Negative Hepatitis A IgM Ab Hep Bs Antigen Hep B Core IgM Ab Hepatitis C Antibody 10/03/16 10/03/16 10/03/16 04:10 04:10 04:10 WBC RBC Hgb Hct MCV MCH MCHC RDW Plt Count MPV Gran % Lymph % (Auto) [place] % (Auto) Eos % (Auto) Baso % (Auto) Gran # Lymph # [place] # Eos # Baso # Retic Count PT 16.7 H INR 1.55 H APTT 32.8 H pCO2 pO2 HCO3 ABG pH ABG Total CO2 ABG O2 Saturation ABG Base Excess ABG Potassium VBG pH VBG pCO2 VBG HCO3 VBG Total CO2 VBG O2 Sat (Calc) VBG Base Excess VBG Potassium Sodium 142 Chloride 102 Glucose Lactate FiO2 Potassium 1.7 L* D Carbon Dioxide 34 H Anion Gap 8 L BUN 18 Creatinine 1.0 Est GFR ( Amer) > 60 Est GFR (Non-Af Amer) > 60 Random Glucose 83 Calcium 8.0 L Phosphorus 2.4 L Magnesium 1.8 Iron TIBC % Saturation Ferritin 865.0 Total Bilirubin 6.3 H AST 226 H ALT 84 H Alkaline Phosphatase 50 Ammonia Lactate Dehydrogenase 1061 H Total Creatine Kinase 1122 H CK-MB (CK-2) 3.7 H CK-MB (CK-2) % Cancelled Troponin I 0.23 H* Total Protein 5.5 L Albumin 2.5 L Globulin 3.0 Albumin/Globulin Ratio 0.8 L Vitamin B12 963 H Folate 9.9 Procalcitonin TSH 3rd Generation Arterial Blood Potassium Venous Blood Potassium Urine Opiates Screen Urine Methadone Screen Ur Barbiturates Screen Ur Phencyclidine Scrn Ur Amphetamines Screen U Benzodiazepines Scrn U Oth Cocaine Metabols U Cannabinoids Screen Hepatitis A IgM Ab Hep Bs Antigen Hep B Core IgM Ab Hepatitis C Antibody 10/03/16 10/03/16 10/03/16 04:10 04:10 04:10 WBC RBC Hgb Hct MCV MCH MCHC RDW Plt Count MPV Gran % Lymph % (Auto) [place] % (Auto) Eos % (Auto) Baso % (Auto) Gran # Lymph # [place] # Eos # Baso # Retic Count PT INR APTT pCO2 pO2 HCO3 ABG pH ABG Total CO2 ABG O2 Saturation ABG Base Excess ABG Potassium VBG pH VBG pCO2 VBG HCO3 VBG Total CO2 VBG O2 Sat (Calc) VBG Base Excess VBG Potassium Sodium Chloride Glucose Lactate FiO2 Potassium Carbon Dioxide Anion Gap BUN Creatinine Est GFR ( Amer) Est GFR (Non-Af Amer) Random Glucose Calcium Phosphorus Magnesium Iron 28 L TIBC 192 L % Saturation 15 L Ferritin Total Bilirubin AST ALT Alkaline Phosphatase Ammonia Lactate Dehydrogenase Total Creatine Kinase CK-MB (CK-2) CK-MB (CK-2) % Troponin I Total Protein Albumin Globulin Albumin/Globulin Ratio Vitamin B12 Folate Procalcitonin TSH 3rd Generation 0.6 Arterial Blood Potassium Venous Blood Potassium Urine Opiates Screen Urine Methadone Screen Ur Barbiturates Screen Ur Phencyclidine Scrn Ur Amphetamines Screen U Benzodiazepines Scrn U Oth Cocaine Metabols U Cannabinoids Screen Hepatitis A IgM Ab Negative Hep Bs Antigen Negative Hep B Core IgM Ab Negative Hepatitis C Antibody Reactive 10/03/16 10/03/16 10/03/16 04:10 07:24 08:30 WBC RBC Hgb Hct MCV MCH MCHC RDW Plt Count MPV Gran % Lymph % (Auto) [place] % (Auto) Eos % (Auto) Baso % (Auto) Gran # Lymph # [place] # Eos # Baso # Retic Count PT INR APTT pCO2 35 pO2 91.0 HCO3 25.5 ABG pH 7.47 H ABG Total CO2 26.6 ABG O2 Saturation 99.3 H ABG Base Excess 1.9 ABG Potassium 1.9 L* VBG pH VBG pCO2 VBG HCO3 VBG Total CO2 VBG O2 Sat (Calc) VBG Base Excess VBG Potassium Sodium 146.0 146 Chloride 114.0 H 107 Glucose 85 Lactate 1.2 FiO2 35.0 Potassium 2.4 L* D Carbon Dioxide 30 Anion Gap 11 BUN 18 Creatinine 1.0 Est GFR ( Amer) > 60 Est GFR (Non-Af Amer) > 60 Random Glucose 90 Calcium 7.5 L Phosphorus 2.3 L Magnesium 1.8 Iron TIBC % Saturation Ferritin Total Bilirubin AST ALT Alkaline Phosphatase Ammonia < 9 L Lactate Dehydrogenase 1226 H Total Creatine Kinase 1321 H CK-MB (CK-2) 3.9 H CK-MB (CK-2) % Cancelled Troponin I 0.17 H* D Total Protein Albumin Globulin Albumin/Globulin Ratio Vitamin B12 Folate Procalcitonin TSH 3rd Generation Arterial Blood Potassium 1.9 L* Venous Blood Potassium Urine Opiates Screen Urine Methadone Screen Ur Barbiturates Screen Ur Phencyclidine Scrn Ur Amphetamines Screen U Benzodiazepines Scrn U Oth Cocaine Metabols U Cannabinoids Screen Hepatitis A IgM Ab Hep Bs Antigen Hep B Core IgM Ab Hepatitis C Antibody 10/03/16 12:20 WBC 4.6 RBC 3.07 L Hgb 10.2 L Hct 29.5 L MCV 96.1 MCH 33.2 MCHC 34.6 RDW 15.6 H Plt Count 81 L MPV 12.7 H Gran % 45.5 L Lymph % (Auto) 47.0 H [place] % (Auto) 7.1 H Eos % (Auto) 0.0 L Baso % (Auto) 0.4 Gran # 2.10 Lymph # 2.2 [place] # 0.3 Eos # 0.0 Baso # 0.02 Retic Count PT INR APTT pCO2 pO2 HCO3 ABG pH ABG Total CO2 ABG O2 Saturation ABG Base Excess ABG Potassium VBG pH VBG pCO2 VBG HCO3 VBG Total CO2 VBG O2 Sat (Calc) VBG Base Excess VBG Potassium Sodium Chloride Glucose Lactate FiO2 Potassium Carbon Dioxide Anion Gap BUN Creatinine Est GFR ( Amer) Est GFR (Non-Af Amer) Random Glucose Calcium Phosphorus Magnesium Iron TIBC % Saturation Ferritin Total Bilirubin AST ALT Alkaline Phosphatase Ammonia Lactate Dehydrogenase Total Creatine Kinase CK-MB (CK-2) CK-MB (CK-2) % Troponin I Total Protein Albumin Globulin Albumin/Globulin Ratio Vitamin B12 Folate Procalcitonin TSH 3rd Generation Arterial Blood Potassium Venous Blood Potassium Urine Opiates Screen Urine Methadone Screen Ur Barbiturates Screen Ur Phencyclidine Scrn Ur Amphetamines Screen U Benzodiazepines Scrn U Oth Cocaine Metabols U Cannabinoids Screen Hepatitis A IgM Ab Hep Bs Antigen Hep B Core IgM Ab Hepatitis C Antibody EKG/Cardiology Studies: Cardiology / EKG Studies 10/02/16 18:53 EKG [ELECTROCARDIOGRAM] Stat Comment: Reason For Exam: WITHDRAWALS 10/03/16 07:00 EKG [ELECTROCARDIOGRAM] Routine Comment: Reason For Exam: severe hypokalemia Fingerstick Blood Sugar Results: 114 Review of Systems - Review of Systems Review of Systems: Please refer to [facility] Critical Care Progress Note - Ventilator Checklist Head of Bed 30 Degrees: Yes - Prophylaxis GI Prophylaxis GI: PPI - Prophylaxis DVT Prophylaxis DVT: SCDs - Nutrition Nutrition: Nutrition Category Date Time Status NPO Diet [DIET] Diets 10/02/16 Dinner Ordered Assessment/Plan - Assessment and Plan (Free Text) Assessment: 56 year old male with a past medical history significant for liver cirrhosis, alcohol abuse/withdrawal, gastritis, hepatitis c, esophageal varices who was admitted for severe hypokalemia with EKG changes, alcohol withdrawal, elevated troponins, and elevated liver enzymes. Plan: Neuro: -CT head showed no acute findings in the brain and no acute hemorrhages or infarcts, age related cortical atrophy and ventriculomegaly -Ammonia level <9 and Vitamin B12 level of 963 -Current CIWA score: 10 -Alcohol level is <10 and patient reports last drink to be approximately 60 hours ago -Continue Precedex drip at 0.2mcg/kg/hr, Valium 5mg IVP Q8H and Ativan 2mg IVP Q2H PRN for symptoms of alcohol withdrawal -Continue Thiamine, Folic Acid and MV supplementation -Continue CIWA protocols as well as seizure, aspiration and fall precautions Cardio: -Serial troponins are now downtrendin.15, 0.21, 0.23 and 0.17 -EKG done on 10/02 shows sinus tachycardia at a rate of 126 with PVC's and T wave inversions in II, III, AVF, V2-V6 -Continue ASA 81mg PO lidia -Cardiology consulted, appreciate all recommendations Pulm: -Chest X-Ray on 10/02 showed no active pulmonary disease -Continue high flow oxygen with FiO2 at 50% at 2 lpm via NC GI: -Abdominal X-Ray showed mildly dilated loops of large and small bowel most consistent with ileus with no evidence of free air -Small pockets of ascitic fluid seen using bedside ultrasound, with no paracentesis performed due to dilated loops of bowel in field -Currently meeting criteria for SIRS (febrile with tachycardia) with intrabdominal infection suspected, given history of vomiting and diarrhea -Continue Flagyl 250mg IVPB Q8H, Merrem 1gm IVPB Q8H, Vancomycin 1gm IVPB Q12H and Vancomycin 125mg PO Q6H for empiric coverage of SBP and C. Difficile -Stool cultures pending -AST/ALT at 226/84 with T. Bili at 6.3 -Hepatitis panel showed patient only positive for hepatitis c, consistent with past medical history [id number] -MELD score of 18 points correlated with 6.0% three month mortality and Child- [place] Class C, 82% abdominal surgery perioperative mortality -GI consulted, all recommendations appreciated -Surgery consulted for umbilical hernia and recommends no surgical intervention at this time Renal: -BUN/Creatinine stable at 19 and 0.9, respectively -Hypokalemia currently at 1.9 slightly increased from admitting level of 1.6 despite approximately 300meq of potassium repleted -Urine electrolytes, including 24 hour urine potassium, and urine creatinine pending for hypokalemia work up -Hypophosphatemia of 2.3 replenished with K-Phos 15mmol IV -Hypomagnesemia on admission resolved with current level at 2.2 -Will continue to monitor with serial BMP's, magnesium and phosphorous levels Heme: -H/H at 10.2/29.5, which is stable per patients baseline -Iron, TIBC, % saturation all low with ferritin and folate wnl -Platelets at 81, which is decreased since admitting labs which read 130 -Lovenox held in the setting thrombocytopenia -Will continue to monitor with serial CBC's MSK: -Creatinine Kinase continues to rise and currently at 1321 -IVF: LR/D5W at 100 ID: -Currently meeting criteria for SIRS (febrile with tachycardia) -Intrabdominal workup and empirical coverage as stated above -Chest X-Ray negative for acute process, no meningeal signs on exam, and UA pending -MRSA screen, blood and urine cultures pending -Continue Tylenol 320mg (Liquid) PO Q4 PRN for fever over 100.4 -ID consulted, all recommendations appreciated Lines: -PICC placed today (10/03) for multiple continuous infusions -Continue all peripheral lines GI Prophylaxis: Protonix DVT Prophylaxis: SCD's (Lovenox held in setting of thrombocytosis) Patient seen and case discussed with attending, Dr. Groves. - Date & Time Date: 10/03/16 Time: 09:35 <Rafael Groves - Last Filed: 10/03/16 17:53> CCU Objective - Vital Signs / Intake & Output Vital Signs (Last 4 hours): Vital Signs Pulse 10/03/16 14:00 86 Intake and Output (Last 8hrs): Intake & Output 10/03/16 10/03/16 10/03/16 06:59 14:59 22:59 Intake Total 1750 Output Total 400 Balance 1350 Weight 166 lb Intake: IV 1500 Right Antecubital 450 Right Forearm 1050 Oral 250 Output: Urine 400 Condom 400 Other: # Bowel Movements 1 - Medications Active Medications: Active Medications Generic Name Dose Route Start Last Admin Trade Name Freq PRN Reason Stop Dose Admin Acetaminophen 320 mg 10/03/16 07:45 10/03/16 08:30 Tylenol 160mg/5ml Oral Soln PO 320 mg Q4 PRN Administration Fever >100.4 F Aspirin 81 mg 10/03/16 10:00 10/03/16 10:05 Aspirin Chewable PO 81 mg DAILY TONI Administration Diazepam 5 mg 10/03/16 07:04 10/03/16 07:16 Valium IVP 5 mg Q8H PRN Administration Symptoms of alcohol withdrawl Protocol Folic Acid 1 mg 10/03/16 10:00 10/03/16 10:06 Folic Acid PO 1 mg DAILY TONI Administration Potassium Chloride 20 meq/ 1,010 mls @ 100 mls/hr 10/02/16 23:15 10/03/16 12: 24 Sodium Chloride IV 100 mls/hr .Q10H6M TONI Administration Vancomycin HCl 1 gm in 250 mls @ 167 mls/hr 10/02/16 23:45 10/03/16 12:24 Vancomycin 1gm IVPB 167 mls/hr Q12H TONI Administration Protocol Dexmedetomidine HCl 400 mcg in 100 mls @ 3.765 mls/hr 10/03/16 09:20 Precedex 4 Mcg/Ml (100 Ml) IV .Q24H PRN Agitation Protocol 0.2 MCG/KG/HR Dextrose/Lactated Ringer's 1,000 mls @ 100 mls/hr 10/03/16 10:13 Dextrose 5%/Lactated Ringer's IV .Q10H TONI Metronidazole 250 mg in 50 mls @ 100 mls/hr 10/03/16 14:00 10/03/16 15:42 Flagyl IVPB 10/12/16 14:01 100 mls/hr Q8 TONI Administration Protocol Meropenem 1g/NS 100mL IVPB 1 gm in 100 mls @ 100 mls/hr 10/03/16 14:00 15:43 Meropenem 1g/Ns 100ml Ivpb IVPB 10/12/16 14:01 100 mls/hr Q8 TONI Administration Protocol Potassium Chloride 20 meq in 100 mls @ 50 mls/hr 10/03/16 14:45 10/03/16 16: 51 Potassium Chloride 20 Meq/100 Ml IVPB 10/03/16 18:44 50 mls/hr Q2H TONI Administration Lorazepam 2 mg 10/02/16 21:28 10/03/16 08:50 Ativan IVP 2 mg Q2H PRN Administration Agitation Protocol Pantoprazole Sodium 40 mg 10/03/16 10:00 10/03/16 10:05 Protonix Inj IVP 40 mg DAILY TONI Administration Potassium Phos/Sodium Phos 1 pkt 10/03/16 17:30 Neutra-Phos PO TID TONI Thiamine HCl 100 mg 10/03/16 10:00 10/03/16 10:06 Vitamin B1 Tab PO 100 mg DAILY TONI Administration Vancomycin HCl 125 mg 10/03/16 11:00 10/03/16 16:51 Vancocin 25 Mg/Ml (Oral Use) PO 125 mg Q6H TONI Administration Protocol Vitamin A 1 ea 10/03/16 10:00 10/03/16 10:06 Vitamin A & D Oint Ud Foilpak TOP 1 ea DAILY TONI Administration Vitamin B Complex/Vit C/Folic Acid 1 tab 10/03/16 08:00 10/03/16 08:31 Nephro-Mariann PO 1 tab 0800 TONI Administration - Patient Studies Lab Studies: Lab Studies 10/03/16 10/03/16 10/03/16 Range/Units 14:00 12:20 08:30 WBC 4.6 (4.5-11.0) 10^3/ul RBC 3.07 L (3.5-6.1) 10^6/uL Hgb 10.2 L (14.0-18.0) g/dL Hct 29.5 L (42.0-52.0) % MCV 96.1 (80.0-105.0) fl MCH 33.2 (25.0-35.0) pg MCHC 34.6 (31.0-37.0) g/dl RDW 15.6 H (11.5-14.5) % Plt Count 81 L (120.0-450.0) 10^3/uL MPV 12.7 H (7.0-11.0) fl Gran % 45.5 L (50.0-68.0) % Lymph % (Auto) 47.0 H (22.0-35.0) % [place] % (Auto) 7.1 H (1.0-6.0) % Eos % (Auto) 0.0 L (1.5-5.0) % Baso % (Auto) 0.4 (0.0-3.0) % Gran # 2.10 (1.4-6.5) Lymph # 2.2 (1.2-3.4) [place] # 0.3 (0.1-0.6) Eos # 0.0 (0.0-0.7) Baso # 0.02 (0.0-2.0) K/mm3 Retic Count (0.5-1.5) % PT (9.9-11.8) Seconds INR (0.93-1.08) APTT (23.7-30.8) Seconds pCO2 (35-45) mm/Hg pO2 (30-55) mm/Hg HCO3 (21-28) mmol/L ABG pH (7.35-7.45) ABG Total CO2 (22-28) mmol.L ABG O2 Saturation (95-98) % ABG Base Excess (-2.0-3.0) mmol/L ABG Potassium (3.6-5.2) mmol/L VBG pH (7.32-7.43) VBG pCO2 (40-60) VBG HCO3 (21-28) mmol/l VBG Total CO2 (22-28) mmol.L VBG O2 Sat (Calc) (40-65) % VBG Base Excess (0.0-2.0) mmol/L VBG Potassium (3.6-5.2) mmol/L Sodium 145 146 (132-148) mmol/L Chloride 110 H 107 (98-107) mmol/L Glucose (75-110) mg/dl Lactate (0.7-2.1) mmol/L FiO2 % Potassium 1.9 L* D 2.4 L* D (3.6-5.0) mmol/L Carbon Dioxide 28 30 (21-33) mmol/L Anion Gap 9 L 11 (10-20) BUN 19 18 (7-21) mg/dL Creatinine 0.9 1.0 (0.5-1.4) mg/dL Est GFR ( Amer) > 60 > 60 Est GFR (Non-Af Amer) > 60 > 60 Random Glucose 91 90 (70-110) mg/dL Calcium 7.0 L 7.5 L (8.4-10.5) mg/dL Phosphorus 2.3 L 2.3 L (2.5-4.5) mg/dL Magnesium 2.2 1.8 (1.7-2.2) mg/dL Iron (45-180) ug/dL TIBC (261-462) ug/dL % Saturation (20-55) % Ferritin ng/mL Total Bilirubin (0.2-1.3) mg/dL AST (15-59) U/L ALT (7-56) U/L Alkaline Phosphatase (38-133) U/L Ammonia (9-33) umol/L Lactate Dehydrogenase 1226 H (333-699) U/L Total Creatine Kinase 1321 H (35-230) U/L CK-MB (CK-2) 3.9 H (0.0-3.6) ng/mL CK-MB (CK-2) % Cancelled Troponin I 0.17 H* D ng/mL Total Protein (5.8-8.3) g/dL Albumin (3.0-4.8) g/dL Globulin gm/dL Albumin/Globulin Ratio (1.1-1.8) Vitamin B12 (239-931) pg/mL Folate ng/mL Procalcitonin (0.19-0.49) NG/ML TSH 3rd Generation (0.46-4.68) MIU/ml Arterial Blood Potassium (3.6-5.2) mmol/L Venous Blood Potassium (3.6-5.2) mmol/L Urine Opiates Screen (NEGATIVE) Urine Methadone Screen (NEGATIVE) Ur Barbiturates Screen (NEGATIVE) Ur Phencyclidine Scrn (NEGATIVE) Ur Amphetamines Screen (NEGATIVE) U Benzodiazepines Scrn (NEGATIVE) U Oth Cocaine Metabols (NEGATIVE) U Cannabinoids Screen (NEGATIVE) Hepatitis A IgM Ab (NEGATIVE) Hep Bs Antigen (NEGATIVE) Hep B Core IgM Ab (NEGATIVE) Hepatitis C Antibody (NEGATIVE) 10/03/16 10/03/16 10/03/16 Range/Units 07:24 04:10 04:10 WBC (4.5-11.0) 10^3/ul RBC (3.5-6.1) 10^6/uL Hgb (14.0-18.0) g/dL Hct (42.0-52.0) % MCV (80.0-105.0) fl MCH (25.0-35.0) pg MCHC (31.0-37.0) g/dl RDW (11.5-14.5) % Plt Count (120.0-450.0) 10^3/uL MPV (7.0-11.0) fl Gran % (50.0-68.0) % Lymph % (Auto) (22.0-35.0) % [place] % (Auto) (1.0-6.0) % Eos % (Auto) (1.5-5.0) % Baso % (Auto) (0.0-3.0) % Gran # (1.4-6.5) Lymph # (1.2-3.4) [place] # (0.1-0.6) Eos # (0.0-0.7) Baso # (0.0-2.0) K/mm3 Retic Count (0.5-1.5) % PT (9.9-11.8) Seconds INR (0.93-1.08) APTT (23.7-30.8) Seconds pCO2 35 (35-45) mm/Hg pO2 91.0 (30-55) mm/Hg HCO3 25.5 (21-28) mmol/L ABG pH 7.47 H (7.35-7.45) ABG Total CO2 26.6 (22-28) mmol.L ABG O2 Saturation 99.3 H (95-98) % ABG Base Excess 1.9 (-2.0-3.0) mmol/L ABG Potassium 1.9 L* (3.6-5.2) mmol/L VBG pH (7.32-7.43) VBG pCO2 (40-60) VBG HCO3 (21-28) mmol/l VBG Total CO2 (22-28) mmol.L VBG O2 Sat (Calc) (40-65) % VBG Base Excess (0.0-2.0) mmol/L VBG Potassium (3.6-5.2) mmol/L Sodium 146.0 (132-148) mmol/L Chloride 114.0 H (98-107) mmol/L Glucose 85 (75-110) mg/dl Lactate 1.2 (0.7-2.1) mmol/L FiO2 35.0 % Potassium (3.6-5.0) mmol/L Carbon Dioxide (21-33) mmol/L Anion Gap (10-20) BUN (7-21) mg/dL Creatinine (0.5-1.4) mg/dL Est GFR ( Amer) Est GFR (Non-Af Amer) Random Glucose (70-110) mg/dL Calcium (8.4-10.5) mg/dL Phosphorus (2.5-4.5) mg/dL Magnesium (1.7-2.2) mg/dL Iron 28 L (45-180) ug/dL TIBC 192 L (261-462) ug/dL % Saturation 15 L (20-55) % Ferritin ng/mL Total Bilirubin (0.2-1.3) mg/dL AST (15-59) U/L ALT (7-56) U/L Alkaline Phosphatase (38-133) U/L Ammonia < 9 L (9-33) umol/L Lactate Dehydrogenase (333-699) U/L Total Creatine Kinase (35-230) U/L CK-MB (CK-2) (0.0-3.6) ng/mL CK-MB (CK-2) % Troponin I ng/mL Total Protein (5.8-8.3) g/dL Albumin (3.0-4.8) g/dL Globulin gm/dL Albumin/Globulin Ratio (1.1-1.8) Vitamin B12 (239-931) pg/mL Folate ng/mL Procalcitonin (0.19-0.49) NG/ML TSH 3rd Generation (0.46-4.68) MIU/ml Arterial Blood Potassium 1.9 L* (3.6-5.2) mmol/L Venous Blood Potassium (3.6-5.2) mmol/L Urine Opiates Screen (NEGATIVE) Urine Methadone Screen (NEGATIVE) Ur Barbiturates Screen (NEGATIVE) Ur Phencyclidine Scrn (NEGATIVE) Ur Amphetamines Screen (NEGATIVE) U Benzodiazepines Scrn (NEGATIVE) U Oth Cocaine Metabols (NEGATIVE) U Cannabinoids Screen (NEGATIVE) Hepatitis A IgM Ab (NEGATIVE) Hep Bs Antigen (NEGATIVE) Hep B Core IgM Ab (NEGATIVE) Hepatitis C Antibody (NEGATIVE) 10/03/16 10/03/16 10/03/16 Range/Units 04:10 04:10 04:10 WBC (4.5-11.0) 10^3/ul RBC (3.5-6.1) 10^6/uL Hgb (14.0-18.0) g/dL Hct (42.0-52.0) % MCV (80.0-105.0) fl MCH (25.0-35.0) pg MCHC (31.0-37.0) g/dl RDW (11.5-14.5) % Plt Count (120.0-450.0) 10^3/uL MPV (7.0-11.0) fl Gran % (50.0-68.0) % Lymph % (Auto) (22.0-35.0) % [place] % (Auto) (1.0-6.0) % Eos % (Auto) (1.5-5.0) % Baso % (Auto) (0.0-3.0) % Gran # (1.4-6.5) Lymph # (1.2-3.4) [place] # (0.1-0.6) Eos # (0.0-0.7) Baso # (0.0-2.0) K/mm3 Retic Count (0.5-1.5) % PT 16.7 H (9.9-11.8) Seconds INR 1.55 H (0.93-1.08) APTT 32.8 H (23.7-30.8) Seconds pCO2 (35-45) mm/Hg pO2 (30-55) mm/Hg HCO3 (21-28) mmol/L ABG pH (7.35-7.45) ABG Total CO2 (22-28) mmol.L ABG O2 Saturation (95-98) % ABG Base Excess (-2.0-3.0) mmol/L ABG Potassium (3.6-5.2) mmol/L VBG pH (7.32-7.43) VBG pCO2 (40-60) VBG HCO3 (21-28) mmol/l VBG Total CO2 (22-28) mmol.L VBG O2 Sat (Calc) (40-65) % VBG Base Excess (0.0-2.0) mmol/L VBG Potassium (3.6-5.2) mmol/L Sodium (132-148) mmol/L Chloride (98-107) mmol/L Glucose (75-110) mg/dl Lactate (0.7-2.1) mmol/L FiO2 % Potassium (3.6-5.0) mmol/L Carbon Dioxide (21-33) mmol/L Anion Gap (10-20) BUN (7-21) mg/dL Creatinine (0.5-1.4) mg/dL Est GFR ( Amer) Est GFR (Non-Af Amer) Random Glucose (70-110) mg/dL Calcium (8.4-10.5) mg/dL Phosphorus (2.5-4.5) mg/dL Magnesium (1.7-2.2) mg/dL Iron (45-180) ug/dL TIBC (261-462) ug/dL % Saturation (20-55) % Ferritin ng/mL Total Bilirubin (0.2-1.3) mg/dL AST (15-59) U/L ALT (7-56) U/L Alkaline Phosphatase (38-133) U/L Ammonia (9-33) umol/L Lactate Dehydrogenase (333-699) U/L Total Creatine Kinase (35-230) U/L CK-MB (CK-2) (0.0-3.6) ng/mL CK-MB (CK-2) % Troponin I ng/mL Total Protein (5.8-8.3) g/dL Albumin (3.0-4.8) g/dL Globulin gm/dL Albumin/Globulin Ratio (1.1-1.8) Vitamin B12 (239-931) pg/mL Folate ng/mL Procalcitonin (0.19-0.49) NG/ML TSH 3rd Generation 0.6 (0.46-4.68) MIU/ml Arterial Blood Potassium (3.6-5.2) mmol/L Venous Blood Potassium (3.6-5.2) mmol/L Urine Opiates Screen (NEGATIVE) Urine Methadone Screen (NEGATIVE) Ur Barbiturates Screen (NEGATIVE) Ur Phencyclidine Scrn (NEGATIVE) Ur Amphetamines Screen (NEGATIVE) U Benzodiazepines Scrn (NEGATIVE) U Oth Cocaine Metabols (NEGATIVE) U Cannabinoids Screen (NEGATIVE) Hepatitis A IgM Ab Negative (NEGATIVE) Hep Bs Antigen Negative (NEGATIVE) Hep B Core IgM Ab Negative (NEGATIVE) Hepatitis C Antibody Reactive (NEGATIVE) 10/03/16 10/03/16 10/03/16 Range/Units 04:10 04:10 04:00 WBC 4.0 L (4.5-11.0) 10^3/ul RBC 3.18 L (3.5-6.1) 10^6/uL Hgb 10.5 L (14.0-18.0) g/dL Hct 30.0 L (42.0-52.0) % MCV 94.3 (80.0-105.0) fl MCH 33.0 (25.0-35.0) pg MCHC 35.0 (31.0-37.0) g/dl RDW 15.3 H (11.5-14.5) % Plt Count 73 L (120.0-450.0) 10^3/uL MPV 10.8 (7.0-11.0) fl Gran % 42.2 L (50.0-68.0) % Lymph % (Auto) 48.9 H (22.0-35.0) % [place] % (Auto) 8.7 H (1.0-6.0) % Eos % (Auto) 0.0 L (1.5-5.0) % Baso % (Auto) 0.2 (0.0-3.0) % Gran # 1.69 (1.4-6.5) Lymph # 2.0 (1.2-3.4) [place] # 0.4 (0.1-0.6) Eos # 0.0 (0.0-0.7) Baso # 0.01 (0.0-2.0) K/mm3 Retic Count 1.16 (0.5-1.5) % PT (9.9-11.8) Seconds INR (0.93-1.08) APTT (23.7-30.8) Seconds pCO2 (35-45) mm/Hg pO2 (30-55) mm/Hg HCO3 (21-28) mmol/L ABG pH (7.35-7.45) ABG Total CO2 (22-28) mmol.L ABG O2 Saturation (95-98) % ABG Base Excess (-2.0-3.0) mmol/L ABG Potassium (3.6-5.2) mmol/L VBG pH (7.32-7.43) VBG pCO2 (40-60) VBG HCO3 (21-28) mmol/l VBG Total CO2 (22-28) mmol.L VBG O2 Sat (Calc) (40-65) % VBG Base Excess (0.0-2.0) mmol/L VBG Potassium (3.6-5.2) mmol/L Sodium 142 (132-148) mmol/L Chloride 102 (98-107) mmol/L Glucose (75-110) mg/dl Lactate (0.7-2.1) mmol/L FiO2 % Potassium 1.7 L* D (3.6-5.0) mmol/L Carbon Dioxide 34 H (21-33) mmol/L Anion Gap 8 L (10-20) BUN 18 (7-21) mg/dL Creatinine 1.0 (0.5-1.4) mg/dL Est GFR ( Amer) > 60 Est GFR (Non-Af Amer) > 60 Random Glucose 83 (70-110) mg/dL Calcium 8.0 L (8.4-10.5) mg/dL Phosphorus 2.4 L (2.5-4.5) mg/dL Magnesium 1.8 (1.7-2.2) mg/dL Iron (45-180) ug/dL TIBC (261-462) ug/dL % Saturation (20-55) % Ferritin 865.0 ng/mL Total Bilirubin 6.3 H (0.2-1.3) mg/dL AST 226 H (15-59) U/L ALT 84 H (7-56) U/L Alkaline Phosphatase 50 (38-133) U/L Ammonia (9-33) umol/L Lactate Dehydrogenase 1061 H (333-699) U/L Total Creatine Kinase 1122 H (35-230) U/L CK-MB (CK-2) 3.7 H (0.0-3.6) ng/mL CK-MB (CK-2) % Cancelled Troponin I 0.23 H* ng/mL Total Protein 5.5 L (5.8-8.3) g/dL Albumin 2.5 L (3.0-4.8) g/dL Globulin 3.0 gm/dL Albumin/Globulin Ratio 0.8 L (1.1-1.8) Vitamin B12 963 H (239-931) pg/mL Folate 9.9 ng/mL Procalcitonin (0.19-0.49) NG/ML TSH 3rd Generation (0.46-4.68) MIU/ml Arterial Blood Potassium (3.6-5.2) mmol/L Venous Blood Potassium (3.6-5.2) mmol/L Urine Opiates Screen (NEGATIVE) Urine Methadone Screen (NEGATIVE) Ur Barbiturates Screen (NEGATIVE) Ur Phencyclidine Scrn (NEGATIVE) Ur Amphetamines Screen (NEGATIVE) U Benzodiazepines Scrn (NEGATIVE) U Oth Cocaine Metabols (NEGATIVE) U Cannabinoids Screen (NEGATIVE) Hepatitis A IgM Ab (NEGATIVE) Hep Bs Antigen (NEGATIVE) Hep B Core IgM Ab (NEGATIVE) Hepatitis C Antibody (NEGATIVE) 10/03/16 10/02/16 10/02/16 Range/Units 01:00 23:35 22:40 WBC (4.5-11.0) 10^3/ul RBC (3.5-6.1) 10^6/uL Hgb (14.0-18.0) g/dL Hct (42.0-52.0) % MCV (80.0-105.0) fl MCH (25.0-35.0) pg MCHC (31.0-37.0) g/dl RDW (11.5-14.5) % Plt Count (120.0-450.0) 10^3/uL MPV (7.0-11.0) fl Gran % (50.0-68.0) % Lymph % (Auto) (22.0-35.0) % [place] % (Auto) (1.0-6.0) % Eos % (Auto) (1.5-5.0) % Baso % (Auto) (0.0-3.0) % Gran # (1.4-6.5) Lymph # (1.2-3.4) [place] # (0.1-0.6) Eos # (0.0-0.7) Baso # (0.0-2.0) K/mm3 Retic Count (0.5-1.5) % PT (9.9-11.8) Seconds INR (0.93-1.08) APTT (23.7-30.8) Seconds pCO2 (35-45) mm/Hg pO2 (30-55) mm/Hg HCO3 (21-28) mmol/L ABG pH (7.35-7.45) ABG Total CO2 (22-28) mmol.L ABG O2 Saturation (95-98) % ABG Base Excess (-2.0-3.0) mmol/L ABG Potassium (3.6-5.2) mmol/L VBG pH (7.32-7.43) VBG pCO2 (40-60) VBG HCO3 (21-28) mmol/l VBG Total CO2 (22-28) mmol.L VBG O2 Sat (Calc) (40-65) % VBG Base Excess (0.0-2.0) mmol/L VBG Potassium (3.6-5.2) mmol/L Sodium (132-148) mmol/L Chloride (98-107) mmol/L Glucose (75-110) mg/dl Lactate (0.7-2.1) mmol/L FiO2 % Potassium (3.6-5.0) mmol/L Carbon Dioxide (21-33) mmol/L Anion Gap (10-20) BUN (7-21) mg/dL Creatinine (0.5-1.4) mg/dL Est GFR ( Amer) Est GFR (Non-Af Amer) Random Glucose (70-110) mg/dL Calcium (8.4-10.5) mg/dL Phosphorus (2.5-4.5) mg/dL Magnesium (1.7-2.2) mg/dL Iron (45-180) ug/dL TIBC (261-462) ug/dL % Saturation (20-55) % Ferritin ng/mL Total Bilirubin (0.2-1.3) mg/dL AST (15-59) U/L ALT (7-56) U/L Alkaline Phosphatase (38-133) U/L Ammonia (9-33) umol/L Lactate Dehydrogenase (333-699) U/L Total Creatine Kinase (35-230) U/L CK-MB (CK-2) (0.0-3.6) ng/mL CK-MB (CK-2) % Troponin I 0.21 H* D ng/mL Total Protein (5.8-8.3) g/dL Albumin (3.0-4.8) g/dL Globulin gm/dL Albumin/Globulin Ratio (1.1-1.8) Vitamin B12 (239-931) pg/mL Folate ng/mL Procalcitonin 0.59 H (0.19-0.49) NG/ML TSH 3rd Generation (0.46-4.68) MIU/ml Arterial Blood Potassium (3.6-5.2) mmol/L Venous Blood Potassium (3.6-5.2) mmol/L Urine Opiates Screen Negative (NEGATIVE) Urine Methadone Screen Negative (NEGATIVE) Ur Barbiturates Screen Negative (NEGATIVE) Ur Phencyclidine Scrn Negative (NEGATIVE) Ur Amphetamines Screen Negative (NEGATIVE) U Benzodiazepines Scrn Positive H (NEGATIVE) U Oth Cocaine Metabols Negative (NEGATIVE) U Cannabinoids Screen Negative (NEGATIVE) Hepatitis A IgM Ab (NEGATIVE) Hep Bs Antigen (NEGATIVE) Hep B Core IgM Ab (NEGATIVE) Hepatitis C Antibody (NEGATIVE) 10/02/16 10/02/16 Range/Units 22:40 22:40 WBC (4.5-11.0) 10^3/ul RBC (3.5-6.1) 10^6/uL Hgb (14.0-18.0) g/dL Hct (42.0-52.0) % MCV (80.0-105.0) fl MCH (25.0-35.0) pg MCHC (31.0-37.0) g/dl RDW (11.5-14.5) % Plt Count (120.0-450.0) 10^3/uL MPV (7.0-11.0) fl Gran % (50.0-68.0) % Lymph % (Auto) (22.0-35.0) % Cory[place] % (Auto) (1.0-6.0) % Eos % (Auto) (1.5-5.0) % Baso % (Auto) (0.0-3.0) % Gran # (1.4-6.5) Lymph # (1.2-3.4) Coryell # (0.1-0.6) Eos # (0.0-0.7) Baso # (0.0-2.0) K/mm3 Retic Count (0.5-1.5) % PT (9.9-11.8) Seconds INR (0.93-1.08) APTT (23.7-30.8) Seconds pCO2 (35-45) mm/Hg pO2 34 (30-55) mm/Hg HCO3 (21-28) mmol/L ABG pH (7.35-7.45) ABG Total CO2 (22-28) mmol.L ABG O2 Saturation (95-98) % ABG Base Excess (-2.0-3.0) mmol/L ABG Potassium (3.6-5.2) mmol/L VBG pH 7.40 (7.32-7.43) VBG pCO2 55.0 (40-60) VBG HCO3 34.1 H (21-28) mmol/l VBG Total CO2 35.8 H (22-28) mmol.L VBG O2 Sat (Calc) 71.4 H (40-65) % VBG Base Excess 7.9 H (0.0-2.0) mmol/L VBG Potassium 1.5 L* (3.6-5.2) mmol/L Sodium 144.0 142 (132-148) mmol/L Chloride 105.0 101 (98-107) mmol/L Glucose 84 (75-110) mg/dl Lactate 1.9 (0.7-2.1) mmol/L FiO2 21.0 % Potassium 1.6 L* (3.6-5.0) mmol/L Carbon Dioxide 31 (21-33) mmol/L Anion Gap 12 (10-20) BUN 18 (7-21) mg/dL Creatinine 1.0 (0.5-1.4) mg/dL Est GFR ( Amer) > 60 Est GFR (Non-Af Amer) > 60 Random Glucose 82 (70-110) mg/dL Calcium 7.7 L (8.4-10.5) mg/dL Phosphorus 0.9 L* (2.5-4.5) mg/dL Magnesium 1.9 (1.7-2.2) mg/dL Iron (45-180) ug/dL TIBC (261-462) ug/dL % Saturation (20-55) % Ferritin ng/mL Total Bilirubin (0.2-1.3) mg/dL AST (15-59) U/L ALT (7-56) U/L Alkaline Phosphatase (38-133) U/L Ammonia (9-33) umol/L Lactate Dehydrogenase (333-699) U/L Total Creatine Kinase (35-230) U/L CK-MB (CK-2) (0.0-3.6) ng/mL CK-MB (CK-2) % Troponin I ng/mL Total Protein (5.8-8.3) g/dL Albumin (3.0-4.8) g/dL Globulin gm/dL Albumin/Globulin Ratio (1.1-1.8) Vitamin B12 (239-931) pg/mL Folate ng/mL Procalcitonin (0.19-0.49) NG/ML TSH 3rd Generation (0.46-4.68) MIU/ml Arterial Blood Potassium (3.6-5.2) mmol/L Venous Blood Potassium 1.5 L* (3.6-5.2) mmol/L Urine Opiates Screen (NEGATIVE) Urine Methadone Screen (NEGATIVE) Ur Barbiturates Screen (NEGATIVE) Ur Phencyclidine Scrn (NEGATIVE) Ur Amphetamines Screen (NEGATIVE) U Benzodiazepines Scrn (NEGATIVE) U Oth Cocaine Metabols (NEGATIVE) U Cannabinoids Screen (NEGATIVE) Hepatitis A IgM Ab (NEGATIVE) Hep Bs Antigen (NEGATIVE) Hep B Core IgM Ab (NEGATIVE) Hepatitis C Antibody (NEGATIVE) Laboratory Results - last 24 hr 10/02/16 10/02/16 10/02/16 22:40 22:40 22:40 WBC RBC Hgb Hct MCV MCH MCHC RDW Plt Count MPV Gran % Lymph % (Auto) Coryell % (Auto) Eos % (Auto) Baso % (Auto) Gran # Lymph # Coryell # Eos # Baso # Retic Count PT INR APTT pCO2 pO2 34 HCO3 ABG pH ABG Total CO2 ABG O2 Saturation ABG Base Excess ABG Potassium VBG pH 7.40 VBG pCO2 55.0 VBG HCO3 34.1 H VBG Total CO2 35.8 H VBG O2 Sat (Calc) 71.4 H VBG Base Excess 7.9 H VBG Potassium 1.5 L* Sodium 142 144.0 Chloride 101 105.0 Glucose 84 Lactate 1.9 FiO2 21.0 Potassium 1.6 L* Carbon Dioxide 31 Anion Gap 12 BUN 18 Creatinine 1.0 Est GFR ( Amer) > 60 Est GFR (Non-Af Amer) > 60 Random Glucose 82 Calcium 7.7 L Phosphorus 0.9 L* Magnesium 1.9 Iron TIBC % Saturation Ferritin Total Bilirubin AST ALT Alkaline Phosphatase Ammonia Lactate Dehydrogenase Total Creatine Kinase CK-MB (CK-2) CK-MB (CK-2) % Troponin I 0.21 H* D Total Protein Albumin Globulin Albumin/Globulin Ratio Vitamin B12 Folate Procalcitonin TSH 3rd Generation Arterial Blood Potassium Venous Blood Potassium 1.5 L* Urine Opiates Screen Urine Methadone Screen Ur Barbiturates Screen Ur Phencyclidine Scrn Ur Amphetamines Screen U Benzodiazepines Scrn U Oth Cocaine Metabols U Cannabinoids Screen Hepatitis A IgM Ab Hep Bs Antigen Hep B Core IgM Ab Hepatitis C Antibody 10/02/16 10/03/16 10/03/16 23:35 01:00 04:00 WBC 4.0 L RBC 3.18 L Hgb 10.5 L Hct 30.0 L MCV 94.3 MCH 33.0 MCHC 35.0 RDW 15.3 H Plt Count 73 L MPV 10.8 Gran % 42.2 L Lymph % (Auto) 48.9 H Coryell % (Auto) 8.7 H Eos % (Auto) 0.0 L Baso % (Auto) 0.2 Gran # 1.69 Lymph # 2.0 Coryell # 0.4 Eos # 0.0 Baso # 0.01 Retic Count 1.16 PT INR APTT pCO2 pO2 HCO3 ABG pH ABG Total CO2 ABG O2 Saturation ABG Base Excess ABG Potassium VBG pH VBG pCO2 VBG HCO3 VBG Total CO2 VBG O2 Sat (Calc) VBG Base Excess VBG Potassium Sodium Chloride Glucose Lactate FiO2 Potassium Carbon Dioxide Anion Gap BUN Creatinine Est GFR ( Amer) Est GFR (Non-Af Amer) Random Glucose Calcium Phosphorus Magnesium Iron TIBC % Saturation Ferritin Total Bilirubin AST ALT Alkaline Phosphatase Ammonia Lactate Dehydrogenase Total Creatine Kinase CK-MB (CK-2) CK-MB (CK-2) % Troponin I Total Protein Albumin Globulin Albumin/Globulin Ratio Vitamin B12 Folate Procalcitonin 0.59 H TSH 3rd Generation Arterial Blood Potassium Venous Blood Potassium Urine Opiates Screen Negative Urine Methadone Screen Negative Ur Barbiturates Screen Negative Ur Phencyclidine Scrn Negative Ur Amphetamines Screen Negative U Benzodiazepines Scrn Positive H U Oth Cocaine Metabols Negative U Cannabinoids Screen Negative Hepatitis A IgM Ab Hep Bs Antigen Hep B Core IgM Ab Hepatitis C Antibody 10/03/16 10/03/16 10/03/16 04:10 04:10 04:10 WBC RBC Hgb Hct MCV MCH MCHC RDW Plt Count MPV Gran % Lymph % (Auto) Coryell % (Auto) Eos % (Auto) Baso % (Auto) Gran # Lymph # Coryell # Eos # Baso # Retic Count PT 16.7 H INR 1.55 H APTT 32.8 H pCO2 pO2 HCO3 ABG pH ABG Total CO2 ABG O2 Saturation ABG Base Excess ABG Potassium VBG pH VBG pCO2 VBG HCO3 VBG Total CO2 VBG O2 Sat (Calc) VBG Base Excess VBG Potassium Sodium 142 Chloride 102 Glucose Lactate FiO2 Potassium 1.7 L* D Carbon Dioxide 34 H Anion Gap 8 L BUN 18 Creatinine 1.0 Est GFR ( Amer) > 60 Est GFR (Non-Af Amer) > 60 Random Glucose 83 Calcium 8.0 L Phosphorus 2.4 L Magnesium 1.8 Iron TIBC % Saturation Ferritin 865.0 Total Bilirubin 6.3 H AST 226 H ALT 84 H Alkaline Phosphatase 50 Ammonia Lactate Dehydrogenase 1061 H Total Creatine Kinase 1122 H CK-MB (CK-2) 3.7 H CK-MB (CK-2) % Cancelled Troponin I 0.23 H* Total Protein 5.5 L Albumin 2.5 L Globulin 3.0 Albumin/Globulin Ratio 0.8 L Vitamin B12 963 H Folate 9.9 Procalcitonin TSH 3rd Generation Arterial Blood Potassium Venous Blood Potassium Urine Opiates Screen Urine Methadone Screen Ur Barbiturates Screen Ur Phencyclidine Scrn Ur Amphetamines Screen U Benzodiazepines Scrn U Oth Cocaine Metabols U Cannabinoids Screen Hepatitis A IgM Ab Hep Bs Antigen Hep B Core IgM Ab Hepatitis C Antibody 10/03/16 10/03/16 10/03/16 04:10 04:10 04:10 WBC RBC Hgb Hct MCV MCH MCHC RDW Plt Count MPV Gran % Lymph % (Auto) Coryell % (Auto) Eos % (Auto) Baso % (Auto) Gran # Lymph # [place] # Eos # Baso # Retic Count PT INR APTT pCO2 pO2 HCO3 ABG pH ABG Total CO2 ABG O2 Saturation ABG Base Excess ABG Potassium VBG pH VBG pCO2 VBG HCO3 VBG Total CO2 VBG O2 Sat (Calc) VBG Base Excess VBG Potassium Sodium Chloride Glucose Lactate FiO2 Potassium Carbon Dioxide Anion Gap BUN Creatinine Est GFR ( Amer) Est GFR (Non-Af Amer) Random Glucose Calcium Phosphorus Magnesium Iron 28 L TIBC 192 L % Saturation 15 L Ferritin Total Bilirubin AST ALT Alkaline Phosphatase Ammonia Lactate Dehydrogenase Total Creatine Kinase CK-MB (CK-2) CK-MB (CK-2) % Troponin I Total Protein Albumin Globulin Albumin/Globulin Ratio Vitamin B12 Folate Procalcitonin TSH 3rd Generation 0.6 Arterial Blood Potassium Venous Blood Potassium Urine Opiates Screen Urine Methadone Screen Ur Barbiturates Screen Ur Phencyclidine Scrn Ur Amphetamines Screen U Benzodiazepines Scrn U Oth Cocaine Metabols U Cannabinoids Screen Hepatitis A IgM Ab Negative Hep Bs Antigen Negative Hep B Core IgM Ab Negative Hepatitis C Antibody Reactive 10/03/16 10/03/16 10/03/16 04:10 07:24 08:30 WBC RBC Hgb Hct MCV MCH MCHC RDW Plt Count MPV Gran % Lymph % (Auto) Coryell % (Auto) Eos % (Auto) Baso % (Auto) Gran # Lymph # [place] # Eos # Baso # Retic Count PT INR APTT pCO2 35 pO2 91.0 HCO3 25.5 ABG pH 7.47 H ABG Total CO2 26.6 ABG O2 Saturation 99.3 H ABG Base Excess 1.9 ABG Potassium 1.9 L* VBG pH VBG pCO2 VBG HCO3 VBG Total CO2 VBG O2 Sat (Calc) VBG Base Excess VBG Potassium Sodium 146.0 146 Chloride 114.0 H 107 Glucose 85 Lactate 1.2 FiO2 35.0 Potassium 2.4 L* D Carbon Dioxide 30 Anion Gap 11 BUN 18 Creatinine 1.0 Est GFR ( Amer) > 60 Est GFR (Non-Af Amer) > 60 Random Glucose 90 Calcium 7.5 L Phosphorus 2.3 L Magnesium 1.8 Iron TIBC % Saturation Ferritin Total Bilirubin AST ALT Alkaline Phosphatase Ammonia < 9 L Lactate Dehydrogenase 1226 H Total Creatine Kinase 1321 H CK-MB (CK-2) 3.9 H CK-MB (CK-2) % Cancelled Troponin I 0.17 H* D Total Protein Albumin Globulin Albumin/Globulin Ratio Vitamin B12 Folate Procalcitonin TSH 3rd Generation Arterial Blood Potassium 1.9 L* Venous Blood Potassium Urine Opiates Screen Urine Methadone Screen Ur Barbiturates Screen Ur Phencyclidine Scrn Ur Amphetamines Screen U Benzodiazepines Scrn U Oth Cocaine Metabols U Cannabinoids Screen Hepatitis A IgM Ab Hep Bs Antigen Hep B Core IgM Ab Hepatitis C Antibody 10/03/16 10/03/16 12:20 14:00 WBC 4.6 RBC 3.07 L Hgb 10.2 L Hct 29.5 L MCV 96.1 MCH 33.2 MCHC 34.6 RDW 15.6 H Plt Count 81 L MPV 12.7 H Gran % 45.5 L Lymph % (Auto) 47.0 H Coryell % (Auto) 7.1 H Eos % (Auto) 0.0 L Baso % (Auto) 0.4 Gran # 2.10 Lymph # 2.2 Coryell # 0.3 Eos # 0.0 Baso # 0.02 Retic Count PT INR APTT pCO2 pO2 HCO3 ABG pH ABG Total CO2 ABG O2 Saturation ABG Base Excess ABG Potassium VBG pH VBG pCO2 VBG HCO3 VBG Total CO2 VBG O2 Sat (Calc) VBG Base Excess VBG Potassium Sodium 145 Chloride 110 H Glucose Lactate FiO2 Potassium 1.9 L* D Carbon Dioxide 28 Anion Gap 9 L BUN 19 Creatinine 0.9 Est GFR ( Amer) > 60 Est GFR (Non-Af Amer) > 60 Random Glucose 91 Calcium 7.0 L Phosphorus 2.3 L Magnesium 2.2 Iron TIBC % Saturation Ferritin Total Bilirubin AST ALT Alkaline Phosphatase Ammonia Lactate Dehydrogenase Total Creatine Kinase CK-MB (CK-2) CK-MB (CK-2) % Troponin I Total Protein Albumin Globulin Albumin/Globulin Ratio Vitamin B12 Folate Procalcitonin TSH 3rd Generation Arterial Blood Potassium Venous Blood Potassium Urine Opiates Screen Urine Methadone Screen Ur Barbiturates Screen Ur Phencyclidine Scrn Ur Amphetamines Screen U Benzodiazepines Scrn U Oth Cocaine Metabols U Cannabinoids Screen Hepatitis A IgM Ab Hep Bs Antigen Hep B Core IgM Ab Hepatitis C Antibody EKG/Cardiology Studies: Cardiology / EKG Studies 10/02/16 18:53 EKG [ELECTROCARDIOGRAM] Stat Comment: Reason For Exam: WITHDRAWALS 10/03/16 07:00 EKG [ELECTROCARDIOGRAM] Routine Comment: Reason For Exam: severe hypokalemia Critical Care Progress Note - Nutrition Nutrition: Nutrition Category Date Time Status NPO Diet [DIET] Diets 10/02/16 Dinner Ordered Assessment/Plan - Assessment and Plan (Free Text) Plan: Patient seen and examined, on rounds with residents, agree with Dr Hylton A/P. Patient is 56yo male with PMhx of HepC cirrhosis, active EtOH abuse, HTN, presented with hypokalemia, fever, and tremors. Overnight events noted. Currently the patient is afebrile, HD stable, comfortable AAox2, NAD on Precedex. Patient on broad spectrum abx, CIWA protocol. Patient with persistent hypokalemia. Acohol Withdrawal Fever Hypokalemia Increased LDH Mild Rhabdo Ileus Recommend: - cont with supp O2 - Broad spectrum abx, Merropenem, Vanco IV, Vanco PO - rule out C diff - follow up procalcitonin - hold BP meds - Precedex - Ativan PRN - MVT, Thiamine, Folic Acid - IVF - Check peripheral smear - replete K aggressively, replete Mg - check U lytes - DVT ppx - GI ppx - Family, , daughter informed of clinical condition Critical care time 45 minutes
[2016-10-03 14:26] LABS: BLOOD UREA NITROGEN 19 mg/dL (7-21); CARBON DIOXIDE 28 mmol/L (21-33); CHLORIDE 110 mmol/L (98-107); GFR AFRICAN-AMERICAN > 60; GLUCOSE,RANDOM 91 mg/dL (70-110); MAGNESIUM 2.2 mg/dL (1.7-2.2); PHOSPHOROUS 2.3 mg/dL (2.5-4.5); SODIUM 145 mmol/L (132-148)
[2016-10-03 14:31] LABS: POTASSIUM 1.9 mmol/L (3.6-5.0)
[2016-10-03] MEDS: metroNIDAZOLE IV 250mg/50 ml 250 MG/50 ML BAG IVPB SCH ×2 (15:42→21:15)
[2016-10-03] MEDS: Meropenem 1g/NS 100mL IVPB 1 GM/100 ML PIGGYBACK IVPB SCH ×2 (15:43→21:14)
--- NOTE | 2016-10-03 15:54 | CP.PCM.PN ---
<BrianNakuln - Last Filed: 10/03/16 18:03> Subjective - Date & Time of Evaluation Date of Evaluation: 10/03/16 Time of Evaluation: 09:53 - Subjective Subjective: Patient was seen at bedside resting comfortably with no acute distress. At the time of the examination the patient was was still reporting some abdominal pain , however he he does report it being better than previous days. He also reports a decrease in his anxiety from the day prior. He denies any chest pain , shortness of breath, nausea, vomiting, lightheadedness, dizziness, or any other complaints. Objective - Vital Signs/Intake and Output Vital Signs (last 24 hours): Temp Pulse Resp BP Pulse Ox 103 F H 86 33 H 100/64 100 10/03/16 05:04 10/03/16 14:00 10/03/16 13:20 10/03/16 12:30 10/03/16 13:20 Intake and Output: 10/03/16 10/03/16 06:59 18:59 Intake Total 1750 Output Total 400 Balance 1350 - Medications Medications: Current Medications Acetaminophen (Tylenol 160mg/5ml Oral Soln) 320 mg PO Q4 PRN PRN Reason: Fever >100.4 F Last Admin: 10/03/16 08:30 Dose: 320 mg Aspirin (Aspirin Chewable) 81 mg PO DAILY [facility] Last Admin: 10/03/16 10:05 Dose: 81 mg Diazepam (Valium) 5 mg IVP Q8H PRN; Protocol PRN Reason: Symptoms of alcohol withdrawl Last Admin: 10/03/16 07:16 Dose: 5 mg Folic Acid (Folic Acid) 1 mg PO DAILY [facility] Last Admin: 10/03/16 10:06 Dose: 1 mg Potassium Chloride 20 meq/ (Sodium Chloride) 1,010 mls @ 100 mls/hr IV .Q10H6M TONI Last Admin: 10/03/16 12:24 Dose: 100 mls/hr Vancomycin HCl (Vancomycin 1gm) 1 gm in 250 mls @ 167 mls/hr IVPB Q12H TONI PRN Reason: Protocol Last Admin: 10/03/16 12:24 Dose: 167 mls/hr Dexmedetomidine HCl (Precedex 4 Mcg/Ml (100 Ml)) 400 mcg in 100 mls @ 3.765 mls /hr IV .Q24H PRN; Protocol; 0.2 MCG/KG/HR PRN Reason: Agitation Dextrose/Lactated Ringer's (Dextrose 5%/Lactated Ringer's) 1,000 mls @ 100 mls/ hr IV .Q10H TONI Metronidazole (Flagyl) 250 mg in 50 mls @ 100 mls/hr IVPB Q8 TONI PRN Reason: Protocol Stop: 10/12/16 14:01 Last Admin: 10/03/16 15:42 Dose: 100 mls/hr Meropenem 1g/NS 100mL IVPB (Meropenem 1g/Ns 100ml Ivpb) 1 gm in 100 mls @ 100 mls/hr IVPB Q8 TONI PRN Reason: Protocol Stop: 10/12/16 14:01 Last Admin: 10/03/16 15:43 Dose: 100 mls/hr Potassium Chloride (Potassium Chloride 20 Meq/100 Ml) 20 meq in 100 mls @ 50 mls/hr IVPB Q2H TONI Stop: 10/03/16 18:44 Last Admin: 10/03/16 15:43 Dose: 50 mls/hr Lorazepam (Ativan) 2 mg IVP Q2H PRN; Protocol PRN Reason: Agitation Last Admin: 10/03/16 08:50 Dose: 2 mg Pantoprazole Sodium (Protonix Inj) 40 mg IVP DAILY [facility] Last Admin: 10/03/16 10:05 Dose: 40 mg Thiamine HCl (Vitamin B1 Tab) 100 mg PO DAILY [facility] Last Admin: 10/03/16 10:06 Dose: 100 mg Vancomycin HCl (Vancocin 25 Mg/Ml (Oral Use)) 125 mg PO Q6H TONI PRN Reason: Protocol Vitamin A (Vitamin A & D Oint Ud Foilpak) 1 ea TOP DAILY [facility] Last Admin: 10/03/16 10:06 Dose: 1 ea Vitamin B Complex/Vit C/Folic Acid (Nephro-Mariann) 1 tab PO 0800 TONI Last Admin: 10/03/16 08:31 Dose: 1 tab - Labs Labs: 10/03/16 12:20 10/03/16 14:00 PT 16.7 Seconds (9.9-11.8) H 10/03/16 04:10 INR 1.55 (0.93-1.08) H 10/03/16 04:10 APTT 32.8 Seconds (23.7-30.8) H 10/03/16 04:10 - Head Exam Head Exam: ATRAUMATIC, NORMAL INSPECTION, NORMOCEPHALIC - Eye Exam Eye Exam: EOMI, Normal appearance, PERRL Pupil Exam: NORMAL ACCOMODATION, PERRL - ENT Exam ENT Exam: Mucous Membranes Moist, Normal Exam - Neck Exam Neck Exam: Full ROM, Normal Inspection - Respiratory Exam Respiratory Exam: Clear to Ausculation Bilateral, NORMAL BREATHING PATTERN. absent: Accessory Muscle Use, Chest Wall Tenderness, Wheezes - Cardiovascular Exam Cardiovascular Exam: REGULAR RHYTHM, RRR, +S1, +S2. absent: JVD, Rubs - GI/Abdominal Exam GI & Abdominal Exam: Soft, Normal Bowel Sounds. absent: Distended, Firm, Tenderness - Neurological Exam Neurological Exam: Alert, Awake, Oriented x3 (Resting tremors present at exam.) - Psychiatric Exam Psychiatric exam: Normal Affect - Skin Skin Exam: Dry, Normal Color. absent: Intact, Urticaria Assessment and Plan - Assessment and Plan (Free Text) Assessment: Neuro: Ct: showed no acute intracranial findings or infarcts. Current CIWA score >10 Continue Precedex, Valium and Ativan Continue Thiamine, Folic Acid and Multivitamin Continue CIWA Protocols, Seizure protocols and Fall protocols. Intrabdominal infection vs. SBP -Currently still meets SIRS criteria -Continue Vancomycin, Flagyl and Merrem -Stool cx pending Hypokalemia -Currently 1.9. Up from 1.6 from the previous day. 300mEq of Potassium Given. Will continue to monitor. Hypophosphatemia -repleted K-Phos 15mmol IV. Will re-order levels in the morning and follow. -will continue to follow up and monitor cmp's, phosphorus and magnesium levels. <Zoe GALLEGOS,Jacob - Last Filed: 10/07/16 12:18> Objective - Vital Signs/Intake and Output Vital Signs (last 24 hours): Temp Pulse Resp BP Pulse Ox 99.3 F 87 29 H 125/79 100 10/07/16 06:00 10/07/16 06:00 10/07/16 07:08 10/07/16 06:00 10/07/16 07:08 Intake and Output: 10/07/16 10/07/16 06:59 18:59 Intake Total 2503 Output Total 90 Balance 2413 - Medications Medications: Current Medications Acetaminophen (Tylenol 160mg/5ml Oral Soln) 320 mg PO Q4 PRN PRN Reason: Fever >100.4 F Last Admin: 10/04/16 13:52 Dose: 320 mg Albuterol/Ipratropium (Duoneb 3 Mg/0.5 Mg (3 Ml) Ud) 3 ml IH [id number] [facility] Last Admin: 10/07/16 07:01 Dose: 3 ml Calcium Carbonate (Caltrate) 600 mg PO DAILY [facility] Last Admin: 10/06/16 09:06 Dose: 600 mg Folic Acid (Folic Acid) 1 mg PO DAILY [facility] Last Admin: 10/07/16 10:36 Dose: 1 mg Hydrocortisone Sodium Succinate (Solu-Cortef) 50 mg IVP Q6H [facility] Last Admin: 10/07/16 08:23 Dose: 50 mg Dexmedetomidine HCl (Precedex 4 Mcg/Ml (100 Ml)) 400 mcg in 100 mls @ 3.765 mls /hr IV .Q24H PRN; Protocol; 0.2 MCG/KG/HR PRN Reason: Agitation Last Titration: 10/04/16 08:45 Dose: 0 mcg/kg/hr, 0 mls/hr Propofol (Diprivan) 1,000 mg in 100 mls @ 2.259 mls/hr IV .Q24H PRN; Protocol; 5 MCG/KG/MIN PRN Reason: TITRATE PER MD ORDER Last Titration: 10/05/16 07:05 Dose: 0 mcg/kg/min, 0 mls/hr Fentanyl Citrate (Fentanyl Citrate/Sodium Chloride 1 Mg/100 Ml) 1,000 mcg in 100 mls @ 7.5 mls/hr IV .H09H74P PRN; Protocol; 75 MCG/HR PRN Reason: TITRATE PER MD ORDER Last Titration: 10/06/16 17:00 Dose: 28 mcg/hr, 2.8 mls/hr Meropenem 500 mg/ Sodium (Chloride) 100 mls @ 100 mls/hr IVPB Q8 TONI PRN Reason: Protocol Stop: 10/15/16 14:01 Last Admin: 10/07/16 05:16 Dose: 100 mls/hr Potassium Chloride (Potassium Chloride 20 Meq/100 Ml) 20 meq in 100 mls @ 50 mls/hr IVPB Q2H TONI Stop: 10/07/16 12:29 Last Admin: 10/07/16 10:31 Dose: 50 mls/hr Potassium Chloride 40 meq/ (Sodium Chloride) 1,020 mls @ 125 mls/hr IV .Q8H10M TONI Lorazepam (Ativan) 2 mg IVP Q2H PRN; Protocol PRN Reason: Agitation Last Admin: 10/07/16 05:33 Dose: 2 mg Pantoprazole Sodium (Protonix Inj) 40 mg IVP DAILY [facility] Last Admin: 10/07/16 10:36 Dose: 40 mg Potassium Phos/Sodium Phos (Neutra-Phos) 1 pkt PO TID [facility]ONI Last Admin: 10/05/16 17:36 Dose: 1 pkt Rifaximin (Xifaxan) 550 mg PO BID TONI PRN Reason: Protocol Last Admin: 10/07/16 10:37 Dose: 550 mg Thiamine HCl (Vitamin B1 Tab) 100 mg PO DAILY [facility] Last Admin: 10/07/16 10:37 Dose: 100 mg Vancomycin HCl (Vancocin 25 Mg/Ml (Oral Use)) 125 mg PO Q6H TONI PRN Reason: Protocol Last Admin: 10/07/16 10:32 Dose: 125 mg Vitamin A (Vitamin A & D Oint Ud Foilpak) 1 ea TOP DAILY [facility] Last Admin: 10/07/16 10:36 Dose: 1 ea Vitamin B Complex/Vit C/Folic Acid (Nephro-Mariann) 1 tab PO 0800 [facility] Last Admin: 10/07/16 08:23 Dose: 1 tab - Labs Labs: 10/07/16 05:17 10/07/16 05:17 PT 16.9 Seconds (9.9-11.8) H 10/07/16 05:17 INR 1.56 (0.93-1.08) H 10/07/16 05:17 APTT 35.0 Seconds (23.7-30.8) H 10/07/16 05:17 Attending/Attestation - Attestation I have personally seen and examined this patient.: Yes I have fully participated in the care of the patient.: Yes I have reviewed all pertinent clinical information, including history, physical exam and plan: Yes Notes (Text): 10/07/16 12:16 Patient was seen and examined with medical safety director. 56M with PMH chronic ETOH abuse, cirrhosis, Hep C, was admitted with alcohol withdrawal, severe hypokalemia K 1.7, Fever 104 F, Patient is confused, having alcoho withdrawal.He is on Precedex drip.We will monitor. He is getting replacement for Hypokalemia.We will monitor for arrhythmia He is on broad spectrum antibiotics as per ID.We will follow up sepsis work up. patient is at ICU level of care. Prognosis is guarded.
[2016-10-03] MEDS ORDERED: Potassium Chloride 40 mEq/30 ml LIQ UD PO ONE (16:53)
--- NOTE | 2016-10-03 17:42 | CON ---
DATE: 10/03/2016 HISTORY OF PRESENT ILLNESS: I saw Mr. Kruger this morning. He is a 56-year-old white male with a past medical history of chronic alcohol abuse, cirrhosis, hepatitis C, presented with excessive tremors 2 days prior to admission since it is associated with nausea and vomiting. There is no rectal bleeding or hematemesis. Apparently, the last admission for the patient was back in July. Current admission, new findings in the emergency room included elevated transaminases and elevated troponin and at beside this morning, the patient currently has a temperature of 103. PHYSICAL EXAMINATION: VITAL SIGNS: I reviewed this patient's vital signs. Again, I was at the bedside in ICU. Again, the temperature is 103. The patient is tachy, shaking. LUNGS: The patient had decreased breath sounds at the bases. HEART: Irregular rhythm and mildly tachy. ABDOMEN: Protuberant. No tenderness elicited. Abdomen apparently appears unchanged from prior admission. LABORATORY DATA: Indicate a white count of 4 with an H and H of 10 and 30, platelet count is 73. INR is 1.55 as of earlier this morning. Chemistry indicates troponins in the range of 0.23. He has iron and TIBC ratio of 28/192. Total bilirubin of 6.3 with an AST and ALT ratio of 226/84. Alkaline phosphatase is 50. Potassium has been extremely low with level 1.7. ASSESSMENT AND PLAN: This is a 56-year-old white male with known history of severe alcohol abuse, cirrhosis, and admitted with severe episode of alcohol withdrawal. Episode probably complicated by possible myocardial infarction given the elevated troponins. Note that he is currently hyperthermic at the current time point with a temperature of 103. I spoke to the nurses in the ICU at the bedside regarding his case. The patient will be seen by ID as well as cardiology later on this morning. The patient is currently on aztreonam with aspirin. However, given the myocardial infarction situation, question of Lovenox. He is receiving potassium supplements, IV fluids plus vancomycin, thiamine, and Valium. Amdaeo Kaminski DO, PhD [place]
[2016-10-03] MEDS: Potassium & Sodium Phosphate PO SCH ×2 (17:49→18:22)
[2016-10-03] MEDS: Dexmedetomidine HCl 4mcg/ml 400 MCG/100 ML BOTTLE IV PRN ×2 (18:15→23:18)
[2016-10-03] MEDS ORDERED: Sodium Chloride 0.9% 500 ML IV STA (20:30)
[2016-10-03 22:16] LABS: BLOOD UREA NITROGEN 19 mg/dL (7-21); CARBON DIOXIDE 28 mmol/L (21-33); CHLORIDE 114 mmol/L (98-107); GFR AFRICAN-AMERICAN > 60; GLUCOSE,RANDOM 88 mg/dL (70-110); MAGNESIUM 2.2 mg/dL (1.7-2.2); PHOSPHOROUS 2.8 mg/dL (2.5-4.5); SODIUM 147 mmol/L (132-148)
[2016-10-03 22:29] LABS: CALCIUM 6.8 mg/dL (8.4-10.5)
[2016-10-03 22:30] LABS: POTASSIUM 2.5 mmol/L (3.6-5.0)
--- NOTE | 2016-10-04 01:48 | CON ---
DATE: 10/03/2016 The patient is seen in the ICU 128, bed 4. CHIEF COMPLAINT: Weakness and diarrhea times several days. HISTORY OF PRESENT ILLNESS: This is a 56-year-old male who was in the hospital in July with history of liver cirrhosis, esophageal varices, alcohol abuse and tobacco use, and who is admitted to the emergency room with the diagnosis of alcohol withdrawal and DTs. Patient also had history of seizures, anxiety and depression. Patient was in emergency room, was seen by Dr. Pruitt and past medical history significant for liver cirrhosis, esophageal varices, alcohol abuse, tobacco abuse, seizures, anxiety and depression. PAST SURGICAL HISTORY: Significant for endoscopy, varices and banding. ALLERGIES: THE PATIENT IS ALLERGIC TO SULFA, PENICILLIN, PSEUDOEPHEDRINE, AND TYPE OF ALLERGY IS NOT CLEAR. MEDICATIONS AT HOME: No medications listed on exam. The patient is in bed and overall in very poor condition. He is confused to some degree. He does know who he is, he does not know what year it is. He does know where he is and what is his name. PHYSICAL EXAMINATION VITAL SIGNS: Temperature of 103, T-max is 104, heart rate of 98, blood pressure is 87/56, it was down to 44/21, saturating at 93 with respiratory rate of 25. HEENT: Unremarkable. NECK: Supple. LUNGS: Decreased breath sounds. HEART: Normal S1 and S2. ABDOMEN: Soft, nontender. LABORATORY DATA: Reveals white count of 4000, hemoglobin of 11, platelets of 130, coagulation is noted and chemistry reveals the patient has BUN of 18, creatinine of 1.0. CK is 1321, LDH is 1200, troponin is 0.17 and toxicology is noted to be positive benzodiazepine, hepatitis profile reveals hepatitis C antibody is positive. Microbiology is pending. The patient had a chest x-ray; it is reported to be negative. No active disease read by Dr. Liberty Barakat. The patient also had abdominal films. Dilated loops of large and small bowel consistent with ileus. CAT scan of the head, no acute findings. History and physical examination written by Dr. Charlotte Covington. She says the patient is more alert, complaining of mostly of diarrhea. Dr. Juliet Rao's note is reviewed. ASSESSMENT AND PLAN: This is a 56-year-old male with liver cirrhosis, esophageal varices, alcohol abuse, tobacco use, seizures, anxiety, depression, admitted with fever of 103, tachycardia, diarrhea with ileus and sepsis with colitis and/or GI pathology. Etiology of which is unclear, stool for Clostridium difficile has been sent. Cultures have been requested. Blood cultures have been requested. Urine cultures have been requested. The patient also was given vancomycin and meropenem. We reordered meropenem and add Flagyl. We will give lower dose of Flagyl due to history of seizures and alcoholic liver disease pending blood cultures, urine cultures and review of the previous laboratories including previous cultures. He has had blood cultures in the past, both have been negative in July and in April of 2016 and patient's HIV was negative in April of 2016 and his hepatitis C is genotype 1a. This is a 56-year-old male with liver cirrhosis, esophageal varices, alcohol abuse, tobacco use, anxiety, depression with fever, tachycardia, WAS ALLERGIC TO SULFA AND PENICILLIN. 1. Severe sepsis with GI origin with significant diarrhea and most likely colitis, this is of GI origin as well as ileus and hepatitis C genotype 1a. We will continue with vancomycin, meropenem and Flagyl pending blood cultures and urine cultures and stool cultures and stool for C. diff and the CAT scan of the abdomen and pelvis. Results pending and we will make further recommendations upon availability of the initial results and we will follow closely with you. Nehemiah Aguilar MD
[2016-10-04] MEDS ORDERED: Sodium Chloride 0.9% 500 ML IV STA ×2 (02:06→22:45)
[2016-10-04] MEDS: metroNIDAZOLE IV 250mg/50 ml 250 MG/50 ML BAG IVPB SCH ×3 (05:24→23:17)
[2016-10-04] MEDS: Meropenem 1g/NS 100mL IVPB 1 GM/100 ML PIGGYBACK IVPB SCH ×3 (05:29→23:21)
[2016-10-04] MEDS: Vancomycin 25 MG/ML PO SCH ×4 (05:59→23:24)
[2016-10-04 06:08] LABS: GRAN # 1.72 (1.4-6.5); GRAN % 56.8 % (50.0-68.0); HEMATOCRIT 28.4 % (42.0-52.0); LYMPH # 1.1 (1.2-3.4); LYMPH % 35.6 % (22.0-35.0); MEAN CELL VOLUME 96.9 fl (80.0-105.0); MEAN CORPUSCULAR HEMOGLOBIN 32.4 pg (25.0-35.0); MEAN CORPUSCULAR HGB CONC 33.5 g/dl (31.0-37.0); MEAN PLATELET VOLUME 12.9 fl (7.0-11.0); MONO # 0.2 (0.1-0.6); MONO % 6.6 % (1.0-6.0); RED CELL DISTRIBUTION WIDTH 16.1 % (11.5-14.5)
[2016-10-04 06:22] LABS: ALB/GLOB RATIO 0.9 (1.1-1.8); ALKALINE PHOSPHATASE 50 U/L (38-133); ALT/SGPT 81 U/L (7-56); AST/SGOT 166 U/L (15-59); BLOOD UREA NITROGEN 19 mg/dL (7-21); CARBON DIOXIDE 27 mmol/L (21-33); CHLORIDE 115 mmol/L (98-107); GFR AFRICAN-AMERICAN > 60; GLUCOSE,RANDOM 74 mg/dL (70-110); MAGNESIUM 2.1 mg/dL (1.7-2.2); PHOSPHOROUS 2.9 mg/dL (2.5-4.5); SODIUM 150 mmol/L (132-148); TOTAL PROTEIN 4.5 g/dL (5.8-8.3)
[2016-10-04 06:51] LABS: CALCIUM 6.6 mg/dL (8.4-10.5); POTASSIUM 2.8 mmol/L (3.6-5.0)
[2016-10-04] MEDS: Multivitamin Vitamin B Complex (Nephro-Vite) Tab PO SCH (08:10)
[2016-10-04] MEDS: Albumin Human 5% (12.5 gm/250 ml) IV SCH ×2 (08:58→10:36)
--- NOTE | 2016-10-04 09:08 | CP.PCM.PN ---
<Justo Torres - Last Filed: 10/04/16 18:01> Subjective - Date & Time of Evaluation Date of Evaluation: 10/04/16 Time of Evaluation: 09:02 - Subjective Subjective: Patient was seen and assessed at the bedside. Patient is report to feeling better this morning and is reporting no pain currently. He's denying any abdominal pain, chest pain, shortness of breath, nausea, vomiting, lightheadedness, dizziness, neck pain, numbness or tingling in any of the extremities or any other complaints. Objective - Vital Signs/Intake and Output Vital Signs (last 24 hours): Temp Pulse Resp BP Pulse Ox 98.8 F 112 H 37 H 131/73 76 L 10/04/16 05:41 10/04/16 06:00 10/04/16 05:17 10/04/16 05:01 10/04/16 05:41 Intake and Output: 10/04/16 10/04/16 06:59 18:59 Intake Total 2801.5 Output Total 700 Balance 2101.5 - Medications Medications: Current Medications Acetaminophen (Tylenol 160mg/5ml Oral Soln) 320 mg PO Q4 PRN PRN Reason: Fever >100.4 F Last Admin: 10/03/16 08:30 Dose: 320 mg Albumin Human (Albumin Human 5% (12.5 Gm/250 Ml)) 12.5 gm IV Q1H [facility]ON[facility] Stop: 10/04/16 09:31 Aspirin (Aspirin Chewable) 81 mg PO DAILY [facility]ON[facility] Last Admin: 10/03/16 10:05 Dose: 81 mg Diazepam (Valium) 5 mg IVP Q8H PRN; Protocol PRN Reason: Symptoms of alcohol withdrawl Last Admin: 10/03/16 07:16 Dose: 5 mg Folic Acid (Folic Acid) 1 mg PO DAILY [facility]ONI Last Admin: 10/03/16 10:06 Dose: 1 mg Vancomycin HCl (Vancomycin 1gm) 1 gm in 250 mls @ 167 mls/hr IVPB Q12H [facility]ONI PRN Reason: Protocol Last Admin: 10/03/16 23:00 Dose: 167 mls/hr Dexmedetomidine HCl (Precedex 4 Mcg/Ml (100 Ml)) 400 mcg in 100 mls @ 3.765 mls /hr IV .Q24H PRN; Protocol; 0.2 MCG/KG/HR PRN Reason: Agitation Last Titration: 10/04/16 05:44 Dose: 0.1 mcg/kg/hr, 1.883 mls/hr Dextrose/Lactated Ringer's (Dextrose 5%/Lactated Ringer's) 1,000 mls @ 100 mls/ hr IV .Q10H TONI Metronidazole (Flagyl) 250 mg in 50 mls @ 100 mls/hr IVPB Q8 [facility]I PRN Reason: Protocol Stop: 10/12/16 14:01 Last Admin: 10/04/16 05:24 Dose: 100 mls/hr Meropenem 1g/NS 100mL IVPB (Meropenem 1g/Ns 100ml Ivpb) 1 gm in 100 mls @ 100 mls/hr IVPB Q8 [facility]ONI PRN Reason: Protocol Stop: 10/12/16 14:01 Last Admin: 10/04/16 05:29 Dose: 100 mls/hr Lorazepam (Ativan) 2 mg IVP Q2H PRN; Protocol PRN Reason: Agitation Last Admin: 10/04/16 05:36 Dose: 2 mg Midodrine (Proamatine) 5 mg PO TID TONI Pantoprazole Sodium (Protonix Inj) 40 mg IVP DAILY [facility] Last Admin: 10/03/16 10:05 Dose: 40 mg Potassium Phos/Sodium Phos (Neutra-Phos) 1 pkt PO TID [facility]ONI Last Admin: 10/03/16 18:22 Dose: 1 pkt Thiamine HCl (Vitamin B1 Tab) 100 mg PO DAILY [facility] Last Admin: 10/03/16 10:06 Dose: 100 mg Vancomycin HCl (Vancocin 25 Mg/Ml (Oral Use)) 125 mg PO Q6H [facility]ONI PRN Reason: Protocol Last Admin: 10/04/16 05:59 Dose: 125 mg Vitamin A (Vitamin A & D Oint Ud Foilpak) 1 ea TOP DAILY [facility] Last Admin: 10/03/16 10:06 Dose: 1 ea Vitamin B Complex/Vit C/Folic Acid (Nephro-Mariann) 1 tab PO 0800 [facility] Last Admin: 10/04/16 08:10 Dose: 1 tab - Labs Labs: 10/04/16 05:50 10/04/16 05:50 PT 16.7 Seconds (9.9-11.8) H 10/03/16 04:10 INR 1.55 (0.93-1.08) H 10/03/16 04:10 APTT 32.8 Seconds (23.7-30.8) H 10/03/16 04:10 - Eye Exam Eye Exam: EOMI, Normal appearance, PERRL Pupil Exam: NORMAL ACCOMODATION, PERRL. absent: Irregular - ENT Exam ENT Exam: Mucous Membranes Moist, Normal Exam - Neck Exam Neck Exam: Normal Inspection - Respiratory Exam Respiratory Exam: Clear to Ausculation Bilateral, NORMAL BREATHING PATTERN. absent: Accessory Muscle Use, Chest Wall Tenderness, Wheezes - Cardiovascular Exam Cardiovascular Exam: REGULAR RHYTHM, +S1, +S2. absent: JVD - GI/Abdominal Exam GI & Abdominal Exam: Soft, Normal Bowel Sounds. absent: Hypoactive Bowel Sounds - Neurological Exam Neurological Exam: Alert, Awake Additional comments: Resting tremor not appreciated today upon physical exam. - Skin Skin Exam: Dry, Normal Color Assessment and Plan - Assessment and Plan (Free Text) Assessment: Neuro: -Patient AOx 3. -Will c/w fall protocols, seizure protocols -c/w Multivitamin, Thiamine, and Folic Acid -c/w with Ativan and Valium -Re-evaluate mental status in the morning. Intrabdominal infection vs. SBP -C/w IV Vancomycin, Merrem, Flagyl, and PO Vancomycin -Stool Cx C.Diff, Final blood cx, and Urine Cx. Hypokalemia -patient K 2.8 ( up from 2.5 on 10/03). -ordered 20mEq KCL with 1L OF D5. -will continue to monitor. Hypophosphatemia -corrected at 2.9 today. Will continue to monitor with serial BMP's. GI PPX -C/W Protonix DVT PPX -C/w SCD's <Zoe GALLEGOS,Jacob - Last Filed: 10/07/16 12:20> Objective - Vital Signs/Intake and Output Vital Signs (last 24 hours): Temp Pulse Resp BP Pulse Ox 99.3 F 87 29 H 125/79 100 10/07/16 06:00 10/07/16 06:00 10/07/16 07:08 10/07/16 06:00 10/07/16 07:08 Intake and Output: 10/07/16 10/07/16 06:59 18:59 Intake Total 2503 Output Total 90 Balance 2413 - Medications Medications: Current Medications Acetaminophen (Tylenol 160mg/5ml Oral Soln) 320 mg PO Q4 PRN PRN Reason: Fever >100.4 F Last Admin: 10/04/16 13:52 Dose: 320 mg Albuterol/Ipratropium (Duoneb 3 Mg/0.5 Mg (3 Ml) Ud) 3 ml IH [id number] [facility] Last Admin: 10/07/16 07:01 Dose: 3 ml Calcium Carbonate (Caltrate) 600 mg PO DAILY [facility] Last Admin: 10/06/16 09:06 Dose: 600 mg Folic Acid (Folic Acid) 1 mg PO DAILY [facility] Last Admin: 10/07/16 10:36 Dose: 1 mg Hydrocortisone Sodium Succinate (Solu-Cortef) 50 mg IVP Q6H [facility] Last Admin: 10/07/16 08:23 Dose: 50 mg Dexmedetomidine HCl (Precedex 4 Mcg/Ml (100 Ml)) 400 mcg in 100 mls @ 3.765 mls /hr IV .Q24H PRN; Protocol; 0.2 MCG/KG/HR PRN Reason: Agitation Last Titration: 10/04/16 08:45 Dose: 0 mcg/kg/hr, 0 mls/hr Propofol (Diprivan) 1,000 mg in 100 mls @ 2.259 mls/hr IV .Q24H PRN; Protocol; 5 MCG/KG/MIN PRN Reason: TITRATE PER MD ORDER Last Titration: 10/05/16 07:05 Dose: 0 mcg/kg/min, 0 mls/hr Fentanyl Citrate (Fentanyl Citrate/Sodium Chloride 1 Mg/100 Ml) 1,000 mcg in 100 mls @ 7.5 mls/hr IV .[id number] PRN; Protocol; 75 MCG/HR PRN Reason: TITRATE PER MD ORDER Last Titration: 10/06/16 17:00 Dose: 28 mcg/hr, 2.8 mls/hr Meropenem 500 mg/ Sodium (Chloride) 100 mls @ 100 mls/hr IVPB Q8 TONI PRN Reason: Protocol Stop: 10/15/16 14:01 Last Admin: 10/07/16 05:16 Dose: 100 mls/hr Potassium Chloride (Potassium Chloride 20 Meq/100 Ml) 20 meq in 100 mls @ 50 mls/hr IVPB Q2H [facility]ONI Stop: 10/07/16 12:29 Last Admin: 10/07/16 10:31 Dose: 50 mls/hr Potassium Chloride 40 meq/ (Sodium Chloride) 1,020 mls @ 125 mls/hr IV .Q8H10M [facility]ONI Lorazepam (Ativan) 2 mg IVP Q2H PRN; Protocol PRN Reason: Agitation Last Admin: 10/07/16 05:33 Dose: 2 mg Pantoprazole Sodium (Protonix Inj) 40 mg IVP DAILY [facility] Last Admin: 10/07/16 10:36 Dose: 40 mg Potassium Phos/Sodium Phos (Neutra-Phos) 1 pkt PO TID TONI Last Admin: 10/05/16 17:36 Dose: 1 pkt Rifaximin (Xifaxan) 550 mg PO BID TONI PRN Reason: Protocol Last Admin: 10/07/16 10:37 Dose: 550 mg Thiamine HCl (Vitamin B1 Tab) 100 mg PO DAILY [facility] Last Admin: 10/07/16 10:37 Dose: 100 mg Vancomycin HCl (Vancocin 25 Mg/Ml (Oral Use)) 125 mg PO Q6H TONI PRN Reason: Protocol Last Admin: 10/07/16 10:32 Dose: 125 mg Vitamin A (Vitamin A & D Oint Ud Foilpak) 1 ea TOP DAILY [facility] Last Admin: 10/07/16 10:36 Dose: 1 ea Vitamin B Complex/Vit C/Folic Acid (Nephro-Mariann) 1 tab PO 0800 [facility]I Last Admin: 10/07/16 08:23 Dose: 1 tab - Labs Labs: 10/07/16 05:17 10/07/16 05:17 PT 16.9 Seconds (9.9-11.8) H 10/07/16 05:17 INR 1.56 (0.93-1.08) H 10/07/16 05:17 APTT 35.0 Seconds (23.7-30.8) H 10/07/16 05:17 Attending/Attestation - Attestation I have personally seen and examined this patient.: Yes I have fully participated in the care of the patient.: Yes I have reviewed all pertinent clinical information, including history, physical exam and plan: Yes Notes (Text): 10/07/16 12:19 Patient was seen and examined with medical imaging technologist. 56M with PMH chronic ETOH abuse, cirrhosis, Hep C, was admitted with alcohol withdrawal, severe hypokalemia K 1.7, Fever 104 F, now off Precedex, more alert today , etiology of sepsis likely due to SBP vs colitis.He is on Meropenem and vancomycin and flagyl as per ID. .Patient also has Hypernatremia today on NS, We will follow up electrolyte. Patient is getting replacement for Hypokalemia, we will monitor in telemetry.
[2016-10-04] MEDS: Potassium & Sodium Phosphate PO SCH ×3 (09:12→18:37)
[2016-10-04] MEDS: Vitamins A & D Oint UD Foilpak TOP SCH (09:12)
--- NOTE | 2016-10-04 10:06 | CP.PCM.PN ---
Subjective - Date & Time of Evaluation Date of Evaluation: 10/04/16 Time of Evaluation: 09:20 - Subjective Subjective: Patient complaining of abdominal distention but not significant abdominal pain, no fevers overnight, no cough. Objective - Vital Signs/Intake and Output Vital Signs (last 24 hours): Temp Pulse Resp BP Pulse Ox 98.8 F 112 H 37 H 131/73 76 L 10/04/16 05:41 10/04/16 06:00 10/04/16 05:17 10/04/16 05:01 10/04/16 05:41 Intake and Output: 10/03/16 10/04/16 18:59 06:59 Intake Total 74.5 2801.5 Output Total 700 Balance 74.5 2101.5 - Medications Medications: Current Medications Acetaminophen (Tylenol 160mg/5ml Oral Soln) 320 mg PO Q4 PRN PRN Reason: Fever >100.4 F Last Admin: 10/03/16 08:30 Dose: 320 mg Aspirin (Aspirin Chewable) 81 mg PO DAILY [facility] Last Admin: 10/03/16 10:05 Dose: 81 mg Diazepam (Valium) 5 mg IVP Q8H PRN; Protocol PRN Reason: Symptoms of alcohol withdrawl Last Admin: 10/03/16 07:16 Dose: 5 mg Folic Acid (Folic Acid) 1 mg PO DAILY [facility] Last Admin: 10/03/16 10:06 Dose: 1 mg Potassium Chloride 20 meq/ (Sodium Chloride) 1,010 mls @ 100 mls/hr IV .Q10H6M [facility] Last Admin: 10/03/16 22:00 Dose: 100 mls/hr Vancomycin HCl (Vancomycin 1gm) 1 gm in 250 mls @ 167 mls/hr IVPB Q12H [facility]ONI PRN Reason: Protocol Last Admin: 10/03/16 23:00 Dose: 167 mls/hr Dexmedetomidine HCl (Precedex 4 Mcg/Ml (100 Ml)) 400 mcg in 100 mls @ 3.765 mls /hr IV .Q24H PRN; Protocol; 0.2 MCG/KG/HR PRN Reason: Agitation Last Titration: 10/04/16 05:44 Dose: 0.1 mcg/kg/hr, 1.883 mls/hr Dextrose/Lactated Ringer's (Dextrose 5%/Lactated Ringer's) 1,000 mls @ 100 mls/ hr IV .Q10H [facility]ONI Metronidazole (Flagyl) 250 mg in 50 mls @ 100 mls/hr IVPB Q8 [facility]ONI PRN Reason: Protocol Stop: 10/12/16 14:01 Last Admin: 10/04/16 05:24 Dose: 100 mls/hr Meropenem 1g/NS 100mL IVPB (Meropenem 1g/Ns 100ml Ivpb) 1 gm in 100 mls @ 100 mls/hr IVPB Q8 [facility]ONI PRN Reason: Protocol Stop: 10/12/16 14:01 Last Admin: 10/04/16 05:29 Dose: 100 mls/hr Lorazepam (Ativan) 2 mg IVP Q2H PRN; Protocol PRN Reason: Agitation Last Admin: 10/04/16 05:36 Dose: 2 mg Pantoprazole Sodium (Protonix Inj) 40 mg IVP DAILY [facility] Last Admin: 10/03/16 10:05 Dose: 40 mg Potassium Phos/Sodium Phos (Neutra-Phos) 1 pkt PO TID [facility] Last Admin: 10/03/16 18:22 Dose: 1 pkt Thiamine HCl (Vitamin B1 Tab) 100 mg PO DAILY [facility] Last Admin: 10/03/16 10:06 Dose: 100 mg Vancomycin HCl (Vancocin 25 Mg/Ml (Oral Use)) 125 mg PO Q6H [facility] PRN Reason: Protocol Last Admin: 10/04/16 05:59 Dose: 125 mg Vitamin A (Vitamin A & D Oint Ud Foilpak) 1 ea TOP DAILY [facility] Last Admin: 10/03/16 10:06 Dose: 1 ea Vitamin B Complex/Vit C/Folic Acid (Nephro-Mariann) 1 tab PO 0800 [facility] Last Admin: 10/03/16 08:31 Dose: 1 tab - Labs Labs: 10/04/16 05:50 10/04/16 05:50 PT 16.7 Seconds (9.9-11.8) H 10/03/16 04:10 INR 1.55 (0.93-1.08) H 10/03/16 04:10 APTT 32.8 Seconds (23.7-30.8) H 10/03/16 04:10 - Constitutional Appears: Chronically Ill - Head Exam Head Exam: NORMAL INSPECTION - ENT Exam ENT Exam: Mucous Membranes Moist - Neck Exam Neck Exam: absent: Meningismus - Respiratory Exam Respiratory Exam: Decreased Breath Sounds - GI/Abdominal Exam GI & Abdominal Exam: Distended, Soft. absent: Rigid, Tenderness, Rebound Assessment and Plan - Assessment and Plan (Free Text) Plan: Assessment consider sepsis due intra-abdominal infection (colitis or spontaneous bacterial peritonitis) in this patient with liver cirrhosis probably from alcohol abuse presenting with delerium tremens chronic alcohol abuse with history of liver cirrhosis and esophageal varices significant smoking history Plan continue IV Vancomycin, Merrem, IV flagyl and PO Vancomycin pending stool for C. diff., final blood and urine cx results; recommend CT A/P and would recommend diagnostic paracentesis will monitor clinically
[2016-10-04] MEDS: Vancomycin 1gm in NS 250ml 1 GM/250 ML BAG IVPB SCH (11:04)
[2016-10-04] MEDS: Acetaminophen 160 mg/5 ml UD PO PRN (13:52)
--- NOTE | 2016-10-04 13:53 | CT ---
PROCEDURE: CT Abdomen and Pelvis without intravenous contrast HISTORY: rule out intra-abdominal infection COMPARISON: And pelvis CT without contrast 07/29/2016 TECHNIQUE: Helical CT of the abdomen pelvis was performed without oral or intravenous contrast.. Contrast Dose: None Radiation dose: Total exam DLP = 1021 mGy-cm. This CT exam was performed using one or more of the following dose reduction techniques: Automated exposure control, adjustment of the mA and/or kV according to patient size, and/or use of iterative reconstruction technique. FINDINGS: LOWER THORAX: Mild bilateral pleural effusions are identified the trace compressive atelectasis related bilaterally at the lower lobes. A moderate hiatal hernia is identified. LIVER: Hepatomegaly and likely prominent diffuse fatty infiltration is identified. The the arms generated artifacts obscuring the upper abdomen somewhat. A definitive hepatic lesion is nonacute identified focally. GALLBLADDER AND BILE DUCTS: Gallbladder appears mildly distended. Mild mural thickening is appreciated there is no radiodense cholelithiasis. Mural thickening may be on the basis of mild ascites and therefore be hydropic rather than intrinsically thickened. PANCREAS: The unenhanced pancreas appears stable. SPLEEN: Spleen remains enlarged and nonfocal measuring 20 cm longest axis (superoinferior dimension). ADRENALS: Unremarkable. No mass. KIDNEYS AND URETERS: Punctate infrequent intrarenal calculi again identified bilaterally at the upper pole left kidney and midpole right. The prior right ureterovesical junction calculi are not currently identified and no radiodense urolithiasis is appreciated. Urinary bladder is prominently distended but thin walled and otherwise unremarkable appearing. This may be the etiology of mildly prominent pelvocaliceal systems which somewhat involved the ureters bilaterally with the right side is diminished compared to prior CT above. Consider hydrostatic etiology as there is no ureteral or urinary bladder radiodense calculus identified. Clinically correlate. VASCULATURE: Unremarkable. No aortic aneurysm. BOWEL: Small and large bowel appear distended with gas and fluid with mural thickening of at least the sigmoid colon appreciated somewhat. Consider segmental colitis. Overall bowel distention may reflect a moderate elite ileus. Rectal probe is noted in situ. APPENDIX: The appendix is identified at the right lower quadrant is poorly evaluated due to surrounding ascites. Is likely a sympathetic pattern to the etiology of ascites. PERITONEUM: Moderate ascites seen throughout the abdomen and pelvis, increased in the interval. LYMPH NODES: Shotty retroperitoneal nodes are identified. BLADDER: Distended as discussed above. REPRODUCTIVE: Unremarkable. BONES: Few tiny lucencies is seen in the innominate bones bilaterally which are likely benign. OTHER FINDINGS: Subcutaneous extra abdominal fat appears injected diffusely which is suspicious for anasarca given intraperitoneal fat appearing hazy density diffusely as well as the presence of ascites. . IMPRESSION: 1. Consider possible sigmoid colitis. [id number] abdominal and pelvic ascites noted. No free intrarenal gas or definite bowel obstruction evident at this time. 2. Hepatosplenomegaly again identified as well as diffuse fatty infiltration of liver. 3. Likely hydropic thickening of the gallbladder wall. 4. Incidental note is made of bilateral pleural effusions. Anasarca also felt to be present.
[2016-10-04 13:54] LABS: URINE BILIRUBIN MODERATE (NEGATIVE); URINE BLOOD LARGE (NEGATIVE); URINE GLUCOSE (UA) NEGATIVE (NEGATIVE); URINE KETONE TRACE mg/dL (NEGATIVE); URINE LEUKOCYTE ESTERASE NEGATIVE Leu/uL (NEGATIVE); URINE PROTEIN 30 mg/dL (<30 mg/dL)
[2016-10-04 13:55] LABS: URINE APPEARANCE TURBID (CLEAR); URINE COLOR YELLOW (YELLOW)
[2016-10-04 13:57] LABS: URINE BACTERIA FEW (NEG); URINE RBC 25 - 30 /hpf (0-2)
[2016-10-04 17:00] LABS: BLOOD UREA NITROGEN 19 mg/dL (7-21); CARBON DIOXIDE 25 mmol/L (21-33); CHLORIDE 111 mmol/L (98-107); GFR AFRICAN-AMERICAN > 60; GLUCOSE,RANDOM 88 mg/dL (70-110); POTASSIUM 3.1 mmol/L (3.6-5.0); SODIUM 143 mmol/L (132-148)
[2016-10-04 17:57] LABS: CALCIUM 6.7 mg/dL (8.4-10.5)
--- NOTE | 2016-10-04 18:33 | PN ---
SUBJECTIVE: I saw the patient this morning. He is a 56-year-old white male with sign and symptoms of alcohol withdrawal. The patient indicated at bedside, he felt mildly improved today relative to yesterday. His temperature is down from 98 at bedside relative to 103 yesterday. I reviewed this patient's clinical course and regimen with the nurse in the unit this morning. The patient denies any hematemesis or rectal bleeding. However, his bowel movement is still on the liquid side. He is requesting more fluid intake due to excessive thirst. PHYSICAL EXAMINATION: VITAL SIGNS: I reviewed this patient's vital signs. HEENT: Significant for dry mouth and dry tongue. LUNGS: Decreased breath sounds at the bases. HEART: Irregular rhythm. ABDOMEN: Protuberant. Irregular bowel sounds. No tenderness elicited. LABORATORY DATA: I reviewed this patient's laboratory data as well as the abdominal film. I reviewed also the progress notes of ICU staff and Nehemiah Aguilar's consult. The patient is currently ongoing alcohol withdrawal symptoms, not much to offer at this point in time. Continue on current therapeutic regimen. Amadeo Kaminski DO, PhD [facility]
--- NOTE | 2016-10-04 20:15 | PN ---
DATE: 10/04/2016 SUBJECTIVE: The patient seen and examined at bedside. He is comfortable. He talks full sentences. He is not in respiratory or otherwise distress. Precedex was just stopped. PHYSICAL EXAMINATION: GENERAL: The patient is alert, awake, following commands. VITAL SIGNS: Blood pressure varies between 97 and 101 systolic, heart rate 104, oxygen saturation 99% on 35% FiO2. HEAD AND NECK: Atraumatic. LUNGS: Clear breath sounds bilaterally. HEART: Regular rate and rhythm. S1 and S2 normal. ABDOMEN: Soft, mildly distended with some ascites present. MUSCULOSKELETAL: No C/C/E. Some mild muscle wasting. SKIN: Dry. PSYCHIATRIC: The patient is alert and oriented x3. LABORATORY DATA: Sodium 150, potassium 2.8 up from 2.5, chloride 115, carbon dioxide 27, BUN 19, creatinine 1, calcium 6.6. Albumin 2.1 (two isotonic albumins as a boluses were given). WBC 3, hemoglobin 9.5, platelet count 64 (pancytopenia most likely relates to bone marrow suppression due to alcohol abuse). MEDICATIONS: Tylenol p.r.n., albumin boluses x2, aspirin, D5, lactate at 100 mL per hour, valium p.r.n., Flagyl, folic acid, Ativan p.r.n., meropenem, midodrine, and Protonix. ASSESSMENT AND PLAN: This is a 56-year-old gentleman, who presented with alcohol withdrawal in the setting of severe hypokalemia. Hypokalemia substantially improved. His alcohol withdrawal symptoms substantially improved as well. Precedex weaned off. He is still on benzodiazepine p.r.n. It does control his symptoms pretty well. He is getting albumin boluses for his borderline blood pressure, which most likely relates to distributive pathophysiology of his end-stage liver disease and chronic liver failure. I will start the patient on midodrine as well. We will stop his sodium containing IVF. Will start oral hydration. His Na is borderline high. We will continue to target euvolemia, euglycemia, normothermia and oxygen saturation of more than 90%. Some ascites present--discussed with prior mask former: bedside US was done and pocket is too small for bedside tapping. Abx started for potential SBP. Lactic acid was 1.2 and his creatinine within normal limits and he is making urine. I will continue deep venous thrombosis and gastrointestinal prophylaxis. Pancytopenia most likely relates to a bone marrow suppression due to chronic alcohol abuse and chronic liver failure. ccm time 40 min Otto Hinojosa MD [facility]
[2016-10-04 21:55] LABS: ARTERIAL BLOOD GAS HCO3 22.3 mmol/L (21-28); ARTERIAL BLOOD GAS O2 CAPACITY 13.8 mL/dl (16-24); ARTERIAL BLOOD GAS O2 CONTENT 9.8 ML/dl (15-23); ARTERIAL BLOOD HGB O2 SAT 68.9 % (95.0-98.0); CARBOXYHEMOGLOBIN 2.2 % (0.5-1.5); HHB 28.3 % (0-5); METHEMOGLOBIN 0.6 % (0.0-3.0)
[2016-10-04] MEDS ORDERED: Propofol 10 mg/ml 1,000 MG/100 ML VIAL IV PRN (22:03)
[2016-10-04] MEDS ORDERED: Sodium Bicarbonate (8.4%) 50 Meq Syringe IVP ONE ×3 (22:06→22:07)
[2016-10-04] MEDS ORDERED: Propofol 10 mg/ml 1,000 MG/100 ML VIAL ONE (22:08)
--- NOTE | 2016-10-04 22:47 | CP.PCM.PN ---
Subjective - Date & Time of Evaluation Date of Evaluation: 10/04/16 Time of Evaluation: 22:30 - Subjective Subjective: Important Overnight Events: -While awaiting to be transferred to the telemetry [place], last night (around 10pm ), the pt was found to be severely somnolent, hypoxic ([id number] 5L via NC) and tachypneic. A stat ABG was done which showed, pH=6.94, PCO=99 and PO2=40's. Consequently, given his severely lethargic mentation at the time, Bipap was not a reasonable option and therefore, he was quickly intubated and also immediately given 3AMP's of IV Bicarb. 3AMP's of bicarb were also added to his hourly IVF's of NaCl at 100cc/hr. Throughout the night, multiple ABG's were obtained, all of which show persistent hypercapeniec respiratory acidosis ( despite all of the IV bicarbonate). His serum ammonia level was also found to be elevated (>100) c/w hepatic encephalopathy. CXR shows increasing fluid overload. However, due to the patient's history of severe hypokalemia as well as his low-normal SBP's all night, IV Lasix could not be given. He is already on broad spectrum antibiotics. Stat trop was only 0.04 (much lower than recent levels 2 days ago). Another 3AMP's of IV Bicarb were given this morning around 5 :30am due to persistent hypercapneic respiratory acidosis (despite increasing the pt's set RR overnight). Patient may benefit from both therapeutic and diagnostic paracentesis and may ultimately require pressor support if his BP's don't improve by AM. Will provide an in-depth sign-out to day precision farming specialist, Dr. Redding, in AM and continue to monitor closely. Objective - Vital Signs/Intake and Output Vital Signs (last 24 hours): Temp Pulse Resp BP Pulse Ox 100.4 F H 112 H 45 H 109/73 95 10/04/16 18:00 10/04/16 18:00 10/04/16 18:00 10/04/16 18:00 10/04/16 18:00 Intake and Output: 10/04/16 10/05/16 18:59 06:59 Intake Total 3804 3800 Output Total 835 835 Balance 2969 2965 - Medications Medications: Current Medications Acetaminophen (Tylenol 160mg/5ml Oral Soln) 320 mg PO Q4 PRN PRN Reason: Fever >100.4 F Last Admin: 10/04/16 13:52 Dose: 320 mg Aspirin (Aspirin Chewable) 81 mg PO DAILY [facility] Last Admin: 10/04/16 09:12 Dose: 81 mg Diazepam (Valium) 5 mg IVP Q8H PRN; Protocol PRN Reason: Symptoms of alcohol withdrawl Last Admin: 10/03/16 07:16 Dose: 5 mg Folic Acid (Folic Acid) 1 mg PO DAILY [facility] Last Admin: 10/04/16 09:12 Dose: 1 mg Vancomycin HCl (Vancomycin 1gm) 1 gm in 250 mls @ 167 mls/hr IVPB Q12H [facility] PRN Reason: Protocol Last Admin: 10/04/16 11:04 Dose: 167 mls/hr Dexmedetomidine HCl (Precedex 4 Mcg/Ml (100 Ml)) 400 mcg in 100 mls @ 3.765 mls /hr IV .Q24H PRN; Protocol; 0.2 MCG/KG/HR PRN Reason: Agitation Last Titration: 10/04/16 08:45 Dose: 0 mcg/kg/hr, 0 mls/hr Dextrose/Lactated Ringer's (Dextrose 5%/Lactated Ringer's) 1,000 mls @ 100 mls/ hr IV .Q10H [facility] Metronidazole (Flagyl) 250 mg in 50 mls @ 100 mls/hr IVPB Q8 [facility] PRN Reason: Protocol Stop: 10/12/16 14:01 Last Admin: 10/04/16 13:51 Dose: 100 mls/hr Meropenem 1g/NS 100mL IVPB (Meropenem 1g/Ns 100ml Ivpb) 1 gm in 100 mls @ 100 mls/hr IVPB Q8 [facility] PRN Reason: Protocol Stop: 10/12/16 14:01 Last Admin: 10/04/16 13:50 Dose: 100 mls/hr Dextrose (Dextrose 5% In Water) 500 mls @ 100 mls/hr IV .Q5H [facility] Last Admin: 10/04/16 18:35 Dose: 100 mls/hr Propofol (Diprivan) 1,000 mg in 100 mls @ 2.259 mls/hr IV .Q24H PRN; Protocol; 5 MCG/KG/MIN PRN Reason: TITRATE PER MD ORDER Sodium Chloride (Sodium Chloride 0.9%) 500 mls @ 999 mls/hr IV .Q31M [facility] Stop: 10/04/16 23:15 Lorazepam (Ativan) 2 mg IVP Q2H PRN; Protocol PRN Reason: Agitation Last Admin: 10/04/16 05:36 Dose: 2 mg Midodrine (Proamatine) 5 mg PO TID [facility] Last Admin: 10/04/16 18:37 Dose: 5 mg Pantoprazole Sodium (Protonix Inj) 40 mg IVP DAILY [facility] Last Admin: 10/04/16 09:12 Dose: 40 mg Potassium Phos/Sodium Phos (Neutra-Phos) 1 pkt PO TID [facility] Last Admin: 10/04/16 18:37 Dose: 1 pkt Thiamine HCl (Vitamin B1 Tab) 100 mg PO DAILY [facility] Last Admin: 10/04/16 09:12 Dose: 100 mg Vancomycin HCl (Vancocin 25 Mg/Ml (Oral Use)) 125 mg PO Q6H [facility] PRN Reason: Protocol Last Admin: 10/04/16 16:48 Dose: 125 mg Vitamin A (Vitamin A & D Oint Ud Foilpak) 1 ea TOP DAILY [facility] Last Admin: 10/04/16 09:12 Dose: 1 ea Vitamin B Complex/Vit C/Folic Acid (Nephro-Mariann) 1 tab PO 0800 [facility] Last Admin: 10/04/16 08:10 Dose: 1 tab - Labs Labs: 10/04/16 05:50 10/04/16 16:47 PT 16.7 Seconds (9.9-11.8) H 10/03/16 04:10 INR 1.55 (0.93-1.08) H 10/03/16 04:10 APTT 32.8 Seconds (23.7-30.8) H 10/03/16 04:10
[2016-10-04 23:03] LABS: ARTERIAL BLOOD GAS PH 6.96 (7.35-7.45)
--- NOTE | 2016-10-04 23:15 | CP.PCM.PN ---
Subjective - Date & Time of Evaluation Date of Evaluation: 10/04/16 Time of Evaluation: 23:13 - Subjective Subjective: # 7.5 ETT inserted. Position confirmed with CO2 detector, direct visualization, auscultation and CXR. Also orogastric tube was inserted position of which was confirmed by auscultation and CXR. Objective - Vital Signs/Intake and Output Vital Signs (last 24 hours): Temp Pulse Resp BP Pulse Ox 100.4 F H 112 H 45 H 109/73 95 10/04/16 18:00 10/04/16 18:00 10/04/16 18:00 10/04/16 18:00 10/04/16 18:00 Intake and Output: 10/04/16 10/05/16 18:59 06:59 Intake Total 3804 3800 Output Total 835 835 Balance 2969 2965 - Medications Medications: Current Medications Acetaminophen (Tylenol 160mg/5ml Oral Soln) 320 mg PO Q4 PRN PRN Reason: Fever >100.4 F Last Admin: 10/04/16 13:52 Dose: 320 mg Aspirin (Aspirin Chewable) 81 mg PO DAILY [facility] Last Admin: 10/04/16 09:12 Dose: 81 mg Diazepam (Valium) 5 mg IVP Q8H PRN; Protocol PRN Reason: Symptoms of alcohol withdrawl Last Admin: 10/03/16 07:16 Dose: 5 mg Folic Acid (Folic Acid) 1 mg PO DAILY [facility] Last Admin: 10/04/16 09:12 Dose: 1 mg Vancomycin HCl (Vancomycin 1gm) 1 gm in 250 mls @ 167 mls/hr IVPB Q12H [facility] PRN Reason: Protocol Last Admin: 10/04/16 11:04 Dose: 167 mls/hr Dexmedetomidine HCl (Precedex 4 Mcg/Ml (100 Ml)) 400 mcg in 100 mls @ 3.765 mls /hr IV .Q24H PRN; Protocol; 0.2 MCG/KG/HR PRN Reason: Agitation Last Titration: 10/04/16 08:45 Dose: 0 mcg/kg/hr, 0 mls/hr Dextrose/Lactated Ringer's (Dextrose 5%/Lactated Ringer's) 1,000 mls @ 100 mls/ hr IV .Q10H [facility] Metronidazole (Flagyl) 250 mg in 50 mls @ 100 mls/hr IVPB Q8 [facility] PRN Reason: Protocol Stop: 10/12/16 14:01 Last Admin: 10/04/16 13:51 Dose: 100 mls/hr Meropenem 1g/NS 100mL IVPB (Meropenem 1g/Ns 100ml Ivpb) 1 gm in 100 mls @ 100 mls/hr IVPB Q8 [facility] PRN Reason: Protocol Stop: 10/12/16 14:01 Last Admin: 10/04/16 13:50 Dose: 100 mls/hr Dextrose (Dextrose 5% In Water) 500 mls @ 100 mls/hr IV .Q5H [facility] Last Admin: 10/04/16 18:35 Dose: 100 mls/hr Propofol (Diprivan) 1,000 mg in 100 mls @ 2.259 mls/hr IV .Q24H PRN; Protocol; 5 MCG/KG/MIN PRN Reason: TITRATE PER MD ORDER Sodium Chloride (Sodium Chloride 0.9%) 500 mls @ 999 mls/hr IV .Q31M [facility] Stop: 10/04/16 23:15 Lorazepam (Ativan) 2 mg IVP Q2H PRN; Protocol PRN Reason: Agitation Last Admin: 10/04/16 05:36 Dose: 2 mg Midodrine (Proamatine) 5 mg PO TID [facility] Last Admin: 10/04/16 18:37 Dose: 5 mg Pantoprazole Sodium (Protonix Inj) 40 mg IVP DAILY [facility] Last Admin: 10/04/16 09:12 Dose: 40 mg Potassium Phos/Sodium Phos (Neutra-Phos) 1 pkt PO TID [facility] Last Admin: 10/04/16 18:37 Dose: 1 pkt Thiamine HCl (Vitamin B1 Tab) 100 mg PO DAILY [facility] Last Admin: 10/04/16 09:12 Dose: 100 mg Vancomycin HCl (Vancocin 25 Mg/Ml (Oral Use)) 125 mg PO Q6H [facility] PRN Reason: Protocol Last Admin: 10/04/16 16:48 Dose: 125 mg Vitamin A (Vitamin A & D Oint Ud Foilpak) 1 ea TOP DAILY [facility] Last Admin: 10/04/16 09:12 Dose: 1 ea Vitamin B Complex/Vit C/Folic Acid (Nephro-Mariann) 1 tab PO 0800 [facility] Last Admin: 10/04/16 08:10 Dose: 1 tab - Labs Labs: 10/04/16 05:50 10/04/16 16:47 PT 16.7 Seconds (9.9-11.8) H 10/03/16 04:10 INR 1.55 (0.93-1.08) H 10/03/16 04:10 APTT 32.8 Seconds (23.7-30.8) H 10/03/16 04:10
[2016-10-04 23:24] LABS: ARTERIAL BLOOD GAS HCO3 25.5 mmol/L (21-28); ARTERIAL BLOOD GAS O2 CAPACITY 13.7 mL/dl (16-24); ARTERIAL BLOOD GAS O2 CONTENT 13.5 ML/dl (15-23); ARTERIAL BLOOD HGB O2 SAT 95.7 % (95.0-98.0); HHB 1.2 % (0-5); METHEMOGLOBIN 1.2 % (0.0-3.0)
[2016-10-04 23:31] LABS: ARTERIAL BLOOD GAS PH 7.05 (7.35-7.45)
[2016-10-05] MEDS: Vancomycin 1gm in NS 250ml 1 GM/250 ML BAG IVPB SCH
[2016-10-05 01:21] LABS: ARTERIAL BLOOD GAS HCO3 24.4 mmol/L (21-28); ARTERIAL BLOOD GAS O2 CAPACITY 13.7 mL/dl (16-24); ARTERIAL BLOOD GAS O2 CONTENT 13.3 ML/dl (15-23); ARTERIAL BLOOD HGB O2 SAT 94.4 % (95.0-98.0); CARBOXYHEMOGLOBIN 2.2 % (0.5-1.5); HHB 2.7 % (0-5); METHEMOGLOBIN 0.7 % (0.0-3.0)
[2016-10-05 01:24] LABS: ARTERIAL BLOOD GAS PH 6.97 (7.35-7.45)
[2016-10-05 03:14] LABS: BASO # 0.06 K/mm3 (0.0-2.0); BASO % 1.1 % (0.0-3.0); EOS % 0.6 % (1.5-5.0); GRAN # 2.81 (1.4-6.5); GRAN % 51.6 % (50.0-68.0); LYMPH # 2.3 (1.2-3.4); MEAN CELL VOLUME 102.6 fl (80.0-105.0); MEAN CORPUSCULAR HEMOGLOBIN 32.8 pg (25.0-35.0); MEAN CORPUSCULAR HGB CONC 31.9 g/dl (31.0-37.0); MEAN PLATELET VOLUME 11.7 fl (7.0-11.0); MONO # 0.2 (0.1-0.6); MONO % 3.7 % (1.0-6.0); RED CELL DISTRIBUTION WIDTH 16.7 % (11.5-14.5)
[2016-10-05 03:32] LABS: MAGNESIUM 1.8 mg/dL (1.7-2.2); PHOSPHOROUS 6.8 mg/dL (2.5-4.5); POTASSIUM 3.4 mmol/L (3.6-5.0); TOTAL PROTEIN 4.6 g/dL (5.8-8.3)
[2016-10-05 03:43] LABS: TROPONIN I 0.04 ng/mL
[2016-10-05 03:48] LABS: CALCIUM 6.1 mg/dL (8.4-10.5)
[2016-10-05] MEDS ORDERED: Sodium Chloride 0.9% 500 ML IV STA (04:16)
--- NOTE | 2016-10-05 04:18 | CON ---
DATE OF CONSULTATION: 10/04/2016 REQUESTING PHYSICIAN: Justyn Matt MD REASON FOR CONSULTATION: Elevated cardiac enzymes. HISTORY OF PRESENT ILLNESS: This is a 56-year-old man with a history of alcoholic cirrhosis and hepatitis C who was admitted with anxiety and tremors. His cardiac enzymes were noted to be mildly elevated and cardiac evaluation was requested. He denies any prior cardiac history. He had been drinking until two days prior to admission. He experienced nausea, vomiting and tremors. He was recently admitted with alcohol withdrawal and severe hypokalemia. An echocardiogram performed several months ago reveled relatively normal LV size and function. He was seen lying in bed on the ICU. He denies any chest pain or dyspnea. PAST MEDICAL HISTORY: Notable for the problems mentioned above. He has a history of esophageal varices, hypertension, alcohol withdrawal,esophageal variceal banding and colonic polypectomy. CURRENT MEDICATIONS: Include aspirin, Ativan, Flagyl, meropenem, Neutra-Phos, midodrine 5 mg t.i.d., Protonix and vancomycin. SOCIAL HISTORY: He has longstanding history of alcohol abuse. He also smokes half pack per day from many years. ALLERGIES: HE HAS HAD REACTION TO SULFA AND PENICILLIN IN THE PAST. FAMILY HISTORY: Father from liver cancer. Mother from breast cancer. One sister had cerebral aneurysm. REVIEW OF SYSTEMS: A 10-point review of systems is mainly notable from the problems mentioned above. PHYSICAL EXAMINATION: GENERAL: He is chronic ill appearing middle-age man. VITAL SIGNS: His blood pressure is 130/70 with pulse of 100 and respirations are 16. He is currently afebrile. HEENT: Temporal wasting noted. NECK: No JVD. CHEST: Diminished breath sounds at the bases. HEART: PMI is in normal position. No pathologic murmur or gallops are noted. ABDOMEN: Distended. Bowel sounds at present, marked ascites is noted as well. EXTREMITIES: 2+ leg edema. SKIN: Warm and dry. PSYCHIATRIC: Normal mood and affect. NEUROLOGIC: No gross motor or sensory is appreciable. DIAGNOSTIC DATA: Electrocardiogram reveals sinus tachycardia with supraventricular premature beats and ST-T abnormalities suggestive for possible inferior ischemia. Chest x-ray reveals normal cardiac silhouette with clear lung jones. White count 3.0, hemoglobin and hematocrit 9.5 and 28.4 and platelet count 64,000. Sodium is 150 with potassium 2.8, BUN and creatinine are 19 and 1.0. Troponin 0.17 with a CK of 1321 and negative MB fraction and albumin is 2.1. IMPRESSION: 1. Borderline troponin elevation, likely of no significance at this time. Abnormal EKG likely related to severe hypokalemia. 2. Alcoholic cirrhosis with varices. 3. Marked thrombocytopenia. 4. Anemia. 5. Hypernatremia. RECOMMENDATIONS: At this time, no further cardiac workup appears necessary. Obviously, correction of his electrolytes would be advisable. They appears to be no clear cardiac reason to continue aspirin therapy and that should be discontinued unless some other indication exists. Given his level of thrombocytopenia, aspirin therapy does not appear necessary or affective. Obviously, alcohol abstinence and smoking session would be advisable. Will be happy to follow me and make further recommendations if needed. Chris Camacho MD
[2016-10-05 04:54] LABS: WHITE BLOOD COUNT 5.4 10^3/ul (4.5-11.0)
[2016-10-05] MEDS: metroNIDAZOLE IV 250mg/50 ml 250 MG/50 ML BAG IVPB SCH (05:26)
[2016-10-05 05:28] LABS: ARTERIAL BLOOD GAS O2 CAPACITY 12.6 mL/dl (16-24); ARTERIAL BLOOD GAS O2 CONTENT 11.7 ML/dl (15-23); ARTERIAL BLOOD HGB O2 SAT 90.4 % (95.0-98.0); CARBOXYHEMOGLOBIN 2.2 % (0.5-1.5); HHB 6.9 % (0-5); METHEMOGLOBIN 0.5 % (0.0-3.0)
[2016-10-05] MEDS: Meropenem 1g/NS 100mL IVPB 1 GM/100 ML PIGGYBACK IVPB SCH ×2 (05:28→14:27)
[2016-10-05] MEDS: Vancomycin 25 MG/ML PO SCH ×4 (05:29→22:30)
[2016-10-05] MEDS ORDERED: Sodium Bicarbonate (8.4%) 50 Meq Syringe IVP ONE ×3 (05:50→05:52)
[2016-10-05 06:57] LABS: ARTERIAL BLOOD GAS PH 6.98 (7.35-7.45)
[2016-10-05] MEDS: NOREPINEPHRINE BIT/0.9 % NACL 4 MG/250 ML BAG IV PRN ×4 (07:34→22:28)
[2016-10-05] MEDS: Albumin Human 25% (12.5 gm/50 ml) IV SCH ×8 (07:37→15:26)
[2016-10-05] MEDS: Vasopressin 20 UNITS in Dextrose 5% In Water 100 ML IV SCH (07:47)
[2016-10-05] MEDS: Fentanyl 1000mcg/100ml NS 1,000 MCG/100 ML BAG IV PRN (07:51)
[2016-10-05 07:57] LABS: URINE POTASSIUM 2.9 mmol/L
[2016-10-05 07:58] LABS: URINE 24 HOUR POTASSIUM 2.6 meq/24HR (25-120)
[2016-10-05] MEDS: Albuterol-Ipratrop 3 mg / 0.5 (3 ml) UD IH SCH ×3 (08:30→19:52)
[2016-10-05] MEDS: Albumin Human 5% (12.5 gm/250 ml) IV SCH ×5 (08:33→15:55)
[2016-10-05 08:38] LABS: BODY FLUID TYPE PERITONEAL
--- NOTE | 2016-10-05 08:42 | RAD ---
HISTORY: evaluate for fluid overload COMPARISON: 10/04/2016 FINDINGS: LUNGS: There is a chronic decreased lung volume on the left. There is a left-sided perihilar infiltrate which is a new finding. The right lung is unremarkable. PLEURA: No significant pleural effusion identified, no pneumothorax apparent. CARDIOVASCULAR: Normal. OSSEOUS STRUCTURES: No significant abnormalities. VISUALIZED UPPER ABDOMEN: Normal. OTHER FINDINGS: Endotracheal and nasogastric tube in satisfactory position IMPRESSION: There is a chronic decreased lung volume on the left. There is a left-sided perihilar infiltrate which is a new finding. The right lung is unremarkable.
--- NOTE | 2016-10-05 08:48 | RAD ---
HISTORY: sob COMPARISON: 10/02/2016 FINDINGS: LUNGS: No active pulmonary disease. PLEURA: No significant pleural effusion identified, no pneumothorax apparent. CARDIOVASCULAR: Normal. OSSEOUS STRUCTURES: No significant abnormalities. VISUALIZED UPPER ABDOMEN: Normal. OTHER FINDINGS: None. IMPRESSION: No active disease.
--- NOTE | 2016-10-05 08:51 | CP.PCM.PN ---
<Justo Torres - Last Filed: 10/05/16 13:23> Subjective - Date & Time of Evaluation Date of Evaluation: 10/05/16 Time of Evaluation: 08:46 - Subjective Subjective: This patient was seen at the bedside this morning sedated. Per the last progress note the patient had to be intubated overnight while waiting transport to the telemetry floor due to desaturation in vitals and being unresponsive. Patient was unable to answer any ROS due to his intubation. Patient vitals and labs are currently being monitored closely. Objective - Vital Signs/Intake and Output Vital Signs (last 24 hours): Temp Pulse Resp BP Pulse Ox 97.5 F L 99 H 23 131/24 L 90 L 10/05/16 08:25 10/05/16 08:25 10/04/16 22:38 10/05/16 08:25 10/05/16 08:25 Intake and Output: 10/05/16 10/05/16 06:59 18:59 Intake Total 5900 20 Output Total 885 Balance 5015 20 - Medications Medications: Current Medications Acetaminophen (Tylenol 160mg/5ml Oral Soln) 320 mg PO Q4 PRN PRN Reason: Fever >100.4 F Last Admin: 10/04/16 13:52 Dose: 320 mg Albumin Human (Albumin Human 25% (12.5 Gm/50 Ml)) 12.5 gm IV Q1H [facility] Stop: 10/05/16 14:31 Last Admin: 10/05/16 07:37 Dose: 12.5 gm Albumin Human (Albumin Human 5% (12.5 Gm/250 Ml)) 12.5 gm IV Q1H [facility] Stop: 10/05/16 10:31 Last Admin: 10/05/16 08:33 Dose: 12.5 gm Albuterol/Ipratropium (Duoneb 3 Mg/0.5 Mg (3 Ml) Ud) 3 ml IH [id number] [facility] Last Admin: 10/05/16 08:30 Dose: 3 ml Aspirin (Aspirin Chewable) 81 mg PO DAILY [facility] Last Admin: 10/04/16 09:12 Dose: 81 mg Folic Acid (Folic Acid) 1 mg PO DAILY [facility] Last Admin: 10/04/16 09:12 Dose: 1 mg Hydrocortisone Sodium Succinate (Solu-Cortef) 50 mg IVP Q6H [facility] Last Admin: 10/05/16 07:36 Dose: 50 mg Dexmedetomidine HCl (Precedex 4 Mcg/Ml (100 Ml)) 400 mcg in 100 mls @ 3.765 mls /hr IV .Q24H PRN; Protocol; 0.2 MCG/KG/HR PRN Reason: Agitation Last Titration: 10/04/16 08:45 Dose: 0 mcg/kg/hr, 0 mls/hr Metronidazole (Flagyl) 250 mg in 50 mls @ 100 mls/hr IVPB Q8 [facility] PRN Reason: Protocol Stop: 10/12/16 14:01 Last Admin: 10/05/16 05:26 Dose: 100 mls/hr Meropenem 1g/NS 100mL IVPB (Meropenem 1g/Ns 100ml Ivpb) 1 gm in 100 mls @ 100 mls/hr IVPB Q8 [facility] PRN Reason: Protocol Stop: 10/12/16 14:01 Last Admin: 10/05/16 05:28 Dose: 100 mls/hr Propofol (Diprivan) 1,000 mg in 100 mls @ 2.259 mls/hr IV .Q24H PRN; Protocol; 5 MCG/KG/MIN PRN Reason: TITRATE PER MD ORDER Last Admin: 10/05/16 00:30 Dose: 5 mcg/kg/min, 2.259 mls/hr Sodium Bicarbonate 150 meq/ (Sodium Chloride) 1,150 mls @ 100 mls/hr IV .[id number] [facility] Last Admin: 10/05/16 02:22 Dose: 100 mls/hr Vasopressin 20 units/ Dextrose 101 mls @ 9.09 mls/hr IV .Q11H7M [facility]; 0.03 U/MIN PRN Reason: Protocol Last Admin: 10/05/16 07:47 Dose: 9.09 mls/hr NOREPINEPHRINE BIT/0.9 % NACL (Levophed 4 Mg/ 250 Ml Ns Premixed) 4 mg in 250 mls @ 15 mls/hr IV .[id number] PRN; Protocol; 4 MCG/MIN PRN Reason: TITRATE PER MD ORDER Last Titration: 10/05/16 08:22 Dose: 20 mcg/min, 75 mls/hr Fentanyl Citrate (Fentanyl Citrate/Sodium Chloride 1 Mg/100 Ml) 1,000 mcg in 100 mls @ 7.5 mls/hr IV .[id number] PRN; Protocol; 75 MCG/HR PRN Reason: TITRATE PER MD ORDER Last Admin: 10/05/16 07:51 Dose: 75 mcg/hr, 7.5 mls/hr Lactulose (Enulose) 20 gm PO Q6H [facility] Lorazepam (Ativan) 2 mg IVP Q2H PRN; Protocol PRN Reason: Agitation Last Admin: 10/04/16 05:36 Dose: 2 mg Pantoprazole Sodium (Protonix Inj) 40 mg IVP DAILY [facility] Last Admin: 10/04/16 09:12 Dose: 40 mg Potassium Phos/Sodium Phos (Neutra-Phos) 1 pkt PO TID [facility] Last Admin: 10/04/16 18:37 Dose: 1 pkt Rifaximin (Xifaxan) 550 mg PO BID [facility] PRN Reason: Protocol Thiamine HCl (Vitamin B1 Tab) 100 mg PO DAILY [facility] Last Admin: 10/04/16 09:12 Dose: 100 mg Vancomycin HCl (Vancocin 25 Mg/Ml (Oral Use)) 125 mg PO Q6H [facility] PRN Reason: Protocol Last Admin: 10/05/16 05:29 Dose: 125 mg Vitamin A (Vitamin A & D Oint Ud Foilpak) 1 ea TOP DAILY [facility] Last Admin: 10/04/16 09:12 Dose: 1 ea Vitamin B Complex/Vit C/Folic Acid (Nephro-Mariann) 1 tab PO 0800 [facility] Last Admin: 10/04/16 08:10 Dose: 1 tab - Labs Labs: 10/05/16 02:50 10/05/16 02:50 PT 16.7 Seconds (9.9-11.8) H 10/03/16 04:10 INR 1.55 (0.93-1.08) H 10/03/16 04:10 APTT 32.8 Seconds (23.7-30.8) H 10/03/16 04:10 - Constitutional Appears: Chronically Ill - Head Exam Head Exam: ATRAUMATIC, NORMAL INSPECTION, NORMOCEPHALIC - Eye Exam Eye Exam: EOMI, Normal appearance, PERRL Pupil Exam: NORMAL ACCOMODATION, PERRL - ENT Exam ENT Exam: Mucous Membranes Moist - Respiratory Exam Respiratory Exam: Decreased Breath Sounds, Rhonchi - Cardiovascular Exam Cardiovascular Exam: REGULAR RHYTHM, +S1, +S2. absent: JVD, Rubs - GI/Abdominal Exam GI & Abdominal Exam: Distended (Ascites appreciated and noted to be larger than the day prior.), Firm, Rigid - Extremities Exam Extremities Exam: absent: Joint Swelling - Back Exam Back Exam: NORMAL INSPECTION. absent: paraspinal tenderness - Skin Skin Exam: Dry, Intact. absent: Erythema, Rash, Urticaria Assessment and Plan (1) Hypokalemia Assessment & Plan: K level today 3.4. Will continue to monitor Can no longer replete potassium PO due to his intubation. Consider IV KCl repletion. Status: Acute - Assessment and Plan (Free Text) Assessment: Intra-abdominal infection vs. SBP -Paracentesis cultures sent out today and pending. -Dr. Dunbar consult is appreciated and will continue antibiotics per his note. -Final blood cx and urine cx still pending. Hyperammonia -most likely secondary to hepatorenal syndrome -patient had diagnostic and therapeutic paracentesis this morning. -consider Lactulose as a treatment option -Serial ammonia levels ordered. Will follow. GI PPX -c/w Protonix DVT PPX -c/w SCD's <Mell Gauthier - Last Filed: 10/06/16 15:50> Objective - Vital Signs/Intake and Output Vital Signs (last 24 hours): Temp Pulse Resp BP Pulse Ox 98.6 F 84 32 H 120/73 99 10/06/16 12:00 10/06/16 10:00 10/06/16 05:55 10/06/16 05:55 10/06/16 05:55 Intake and Output: 10/06/16 10/06/16 06:59 18:59 Intake Total 2807 1245.8 Output Total 100 50 Balance 2707 1195.8 - Medications Medications: Current Medications Acetaminophen (Tylenol 160mg/5ml Oral Soln) 320 mg PO Q4 PRN PRN Reason: Fever >100.4 F Last Admin: 10/04/16 13:52 Dose: 320 mg Albuterol/Ipratropium (Duoneb 3 Mg/0.5 Mg (3 Ml) Ud) 3 ml IH [id number] [facility] Last Admin: 10/06/16 13:42 Dose: 3 ml Calcium Carbonate (Caltrate) 600 mg PO DAILY [facility] Last Admin: 10/06/16 09:06 Dose: 600 mg Folic Acid (Folic Acid) 1 mg PO DAILY [facility] Last Admin: 10/06/16 09:05 Dose: 1 mg Hydrocortisone Sodium Succinate (Solu-Cortef) 50 mg IVP Q6H [facility] Last Admin: 10/06/16 13:19 Dose: 50 mg Dexmedetomidine HCl (Precedex 4 Mcg/Ml (100 Ml)) 400 mcg in 100 mls @ 3.765 mls /hr IV .Q24H PRN; Protocol; 0.2 MCG/KG/HR PRN Reason: Agitation Last Titration: 10/04/16 08:45 Dose: 0 mcg/kg/hr, 0 mls/hr Propofol (Diprivan) 1,000 mg in 100 mls @ 2.259 mls/hr IV .Q24H PRN; Protocol; 5 MCG/KG/MIN PRN Reason: TITRATE PER MD ORDER Last Titration: 10/05/16 07:05 Dose: 0 mcg/kg/min, 0 mls/hr Vasopressin 20 units/ Dextrose 101 mls @ 9.09 mls/hr IV .Q11H7M [facility]; 0.03 U/MIN PRN Reason: Protocol Last Admin: 10/06/16 04:38 Dose: 9.09 mls/hr NOREPINEPHRINE BIT/0.9 % NACL (Levophed 4 Mg/ 250 Ml Ns Premixed) 4 mg in 250 mls @ 15 mls/hr IV .[id number] PRN; Protocol; 4 MCG/MIN PRN Reason: TITRATE PER MD ORDER Last Titration: 10/06/16 15:19 Dose: 0 mcg/min, 0 mls/hr Fentanyl Citrate (Fentanyl Citrate/Sodium Chloride 1 Mg/100 Ml) 1,000 mcg in 100 mls @ 7.5 mls/hr IV .[id number] PRN; Protocol; 75 MCG/HR PRN Reason: TITRATE PER MD ORDER Last Titration: 10/06/16 12:58 Dose: 24 mcg/hr, 2.4 mls/hr Meropenem 500 mg/ Sodium (Chloride) 100 mls @ 100 mls/hr IVPB Q8 [facility] PRN Reason: Protocol Stop: 10/15/16 14:01 Last Admin: 10/06/16 13:18 Dose: 100 mls/hr Lorazepam (Ativan) 2 mg IVP Q2H PRN; Protocol PRN Reason: Agitation Last Admin: 10/04/16 05:36 Dose: 2 mg Pantoprazole Sodium (Protonix Inj) 40 mg IVP DAILY [facility] Last Admin: 10/06/16 09:03 Dose: 40 mg Potassium Phos/Sodium Phos (Neutra-Phos) 1 pkt PO TID [facility] Last Admin: 10/05/16 17:36 Dose: 1 pkt Rifaximin (Xifaxan) 550 mg PO BID [facility] PRN Reason: Protocol Last Admin: 10/06/16 09:05 Dose: 550 mg Thiamine HCl (Vitamin B1 Tab) 100 mg PO DAILY [facility] Last Admin: 10/06/16 09:06 Dose: 100 mg Vancomycin HCl (Vancocin 25 Mg/Ml (Oral Use)) 125 mg PO Q6H [facility] PRN Reason: Protocol Last Admin: 10/06/16 11:38 Dose: 125 mg Vitamin A (Vitamin A & D Oint Ud Foilpak) 1 ea TOP DAILY [facility] Last Admin: 10/06/16 11:15 Dose: 1 ea Vitamin B Complex/Vit C/Folic Acid (Nephro-Mariann) 1 tab PO 0800 [facility] Last Admin: 10/06/16 08:42 Dose: 1 tab - Labs Labs: 10/06/16 12:00 10/06/16 12:00 PT 16.7 Seconds (9.9-11.8) H 10/06/16 05:00 INR 1.55 (0.93-1.08) H 10/06/16 05:00 APTT 39.3 Seconds (23.7-30.8) H 10/06/16 05:00 Attending/Attestation - Attestation I have personally seen and examined this patient.: Yes I have fully participated in the care of the patient.: Yes I have reviewed all pertinent clinical information, including history, physical exam and plan: Yes Notes (Text): 10/06/16 15:43 attending note; Patient seen and examined with resident in ICU. patient is a 56-year-old male with a history of alcohol abuse, cirrhosis is admitted with alcohol withdrawal symptoms. Patient was intubated last night secondary to hypercapnic respiratory failure. Patient is sedated. Patient had episodes of hypotension. started on pressors. Acute renal failure;Urine output is decreased. Ascites; status post 2 L of ascitic fluid removed. Sent for cultures. Sepsis/pneumonia; continue vancomycin and meropenem. ID evaluation appreciated. prognosis is poor. Will discuss with family. 10/06/16 15:50
--- NOTE | 2016-10-05 08:53 | RAD ---
HISTORY: post intubation COMPARISON: 10/02/2016 FINDINGS: LUNGS: No active pulmonary disease. PLEURA: No significant pleural effusion identified, no pneumothorax apparent. CARDIOVASCULAR: Right PICC catheter terminating in the region of the superior vena cava. OSSEOUS STRUCTURES: No significant abnormalities. VISUALIZED UPPER ABDOMEN: Normal. OTHER FINDINGS: None. IMPRESSION: New right PICC catheter. Termination in the region of the superior vena cava. Otherwise unremarkable.
[2016-10-05 09:08] LABS: BF GROSS APPEARANCE CLEAR (CLEAR); BODY FLUID TOTAL COUNT 100 (0-0)
--- NOTE | 2016-10-05 09:47 | CP.PCM.PN ---
Subjective - Date & Time of Evaluation Date of Evaluation: 10/05/16 Time of Evaluation: 09:10 - Subjective Subjective: Noted events overnight - patient became lethargic and had to be intubated. Noted to have respiratory acidosis. Patient had low grade fevers overnight and renal function has slightly worsened. Objective - Vital Signs/Intake and Output Vital Signs (last 24 hours): Temp Pulse Resp BP Pulse Ox 97.5 F L 104 H 23 113/51 L 92 L 10/05/16 00:00 10/05/16 00:00 10/04/16 22:38 10/05/16 00:00 10/05/16 00:00 Intake and Output: 10/04/16 10/05/16 18:59 06:59 Intake Total 3804 3800 Output Total 835 835 Balance 2969 2965 - Medications Medications: Current Medications Acetaminophen (Tylenol 160mg/5ml Oral Soln) 320 mg PO Q4 PRN PRN Reason: Fever >100.4 F Last Admin: 10/04/16 13:52 Dose: 320 mg Aspirin (Aspirin Chewable) 81 mg PO DAILY [facility] Last Admin: 10/04/16 09:12 Dose: 81 mg Diazepam (Valium) 5 mg IVP Q8H PRN; Protocol PRN Reason: Symptoms of alcohol withdrawl Last Admin: 10/03/16 07:16 Dose: 5 mg Folic Acid (Folic Acid) 1 mg PO DAILY [facility] Last Admin: 10/04/16 09:12 Dose: 1 mg Dexmedetomidine HCl (Precedex 4 Mcg/Ml (100 Ml)) 400 mcg in 100 mls @ 3.765 mls /hr IV .Q24H PRN; Protocol; 0.2 MCG/KG/HR PRN Reason: Agitation Last Titration: 10/04/16 08:45 Dose: 0 mcg/kg/hr, 0 mls/hr Metronidazole (Flagyl) 250 mg in 50 mls @ 100 mls/hr IVPB Q8 [facility] PRN Reason: Protocol Stop: 10/12/16 14:01 Last Admin: 10/05/16 05:26 Dose: 100 mls/hr Meropenem 1g/NS 100mL IVPB (Meropenem 1g/Ns 100ml Ivpb) 1 gm in 100 mls @ 100 mls/hr IVPB Q8 [facility] PRN Reason: Protocol Stop: 10/12/16 14:01 Last Admin: 10/05/16 05:28 Dose: 100 mls/hr Propofol (Diprivan) 1,000 mg in 100 mls @ 2.259 mls/hr IV .Q24H PRN; Protocol; 5 MCG/KG/MIN PRN Reason: TITRATE PER MD ORDER Last Admin: 10/05/16 00:30 Dose: 5 mcg/kg/min, 2.259 mls/hr Sodium Bicarbonate 150 meq/ (Sodium Chloride) 1,150 mls @ 100 mls/hr IV .[id number] [facility] Last Admin: 10/05/16 02:22 Dose: 100 mls/hr Lorazepam (Ativan) 2 mg IVP Q2H PRN; Protocol PRN Reason: Agitation Last Admin: 10/04/16 05:36 Dose: 2 mg Midodrine (Proamatine) 5 mg PO TID [facility] Last Admin: 10/04/16 18:37 Dose: 5 mg Pantoprazole Sodium (Protonix Inj) 40 mg IVP DAILY [facility] Last Admin: 10/04/16 09:12 Dose: 40 mg Potassium Phos/Sodium Phos (Neutra-Phos) 1 pkt PO TID [facility] Last Admin: 10/04/16 18:37 Dose: 1 pkt Thiamine HCl (Vitamin B1 Tab) 100 mg PO DAILY [facility] Last Admin: 10/04/16 09:12 Dose: 100 mg Vancomycin HCl (Vancocin 25 Mg/Ml (Oral Use)) 125 mg PO Q6H [facility] PRN Reason: Protocol Last Admin: 10/05/16 05:29 Dose: 125 mg Vitamin A (Vitamin A & D Oint Ud Foilpak) 1 ea TOP DAILY [facility] Last Admin: 10/04/16 09:12 Dose: 1 ea Vitamin B Complex/Vit C/Folic Acid (Nephro-Mariann) 1 tab PO 0800 [facility] Last Admin: 10/04/16 08:10 Dose: 1 tab - Labs Labs: 10/05/16 02:50 10/05/16 02:50 PT 16.7 Seconds (9.9-11.8) H 10/03/16 04:10 INR 1.55 (0.93-1.08) H 10/03/16 04:10 APTT 32.8 Seconds (23.7-30.8) H 10/03/16 04:10 - Constitutional Appears: Other (Intubated, in some respiratory distress) - Head Exam Head Exam: NORMAL INSPECTION - ENT Exam Additional comments: ET tube in place - Respiratory Exam Respiratory Exam: Decreased Breath Sounds, Rales (scattered) - Cardiovascular Exam Cardiovascular Exam: +S1, +S2 - GI/Abdominal Exam GI & Abdominal Exam: Distended, Soft. absent: Guarding, Rigid, Tenderness Assessment and Plan - Assessment and Plan (Free Text) Plan: Assessment severe sepsis with ventilator-dependent respiratory failure, respiratory acidosis and acute renal failure probably due to new onset healthcare- associated pneumonia on top of colitis or spontaneous bacterial peritonitis in this patient with liver cirrhosis probably from alcohol abuse; S/P paracentesis today; initially presented with delerium tremens chronic alcohol abuse with history of liver cirrhosis and esophageal varices significant smoking history Plan change IV Vancomycin to Zyvox, continue Merrem (day 2), IV flagyl and PO Vancomycin (day 2); awaiting stool for C. diff., final blood and urine cx results; reviewed CT A/P and follow up ascitic fluid analysis will continue to monitor clinically patient is in critical condition
[2016-10-05 10:35] LABS: ABG MECHANICAL RATE 30; ARTERIAL BLOOD GAS HCO3 25.9 mmol/L (21-28); ATERIAL BLOOD GAS PEEP 10
[2016-10-05 10:36] LABS: ARTERIAL BLOOD GAS PH 7.17 (7.35-7.45)
[2016-10-05] MEDS ORDERED: Albumin Human 5% (12.5 gm/250 ml) IV SCH (11:15)
[2016-10-05] MEDS: Linezolid 600 mg in D5W 300 ml 600 MG/300 ML BAG IVPB SCH ×2 (11:30→21:07)
[2016-10-05] MEDS: Potassium & Sodium Phosphate PO SCH ×3 (11:31→17:36)
[2016-10-05] MEDS: Multivitamin Vitamin B Complex (Nephro-Vite) Tab PO SCH (11:32)
--- NOTE | 2016-10-05 13:20 | CARD ---
APPROVED REPORT EKG Measurement Heart [id number] <Conclusion> Sinus tachycardia Low voltage QRS Nonspecific T wave abnormality Abnormal ECG
[2016-10-05] MEDS: Vitamins A & D Oint UD Foilpak TOP SCH (15:51)
--- NOTE | 2016-10-05 16:07 | CP.PCM.CON ---
History of Present Illness - History of Present Illness History of Present Illness: 56 yo M w/ pmh of hep C, ETOH abuse with cirrhosis and esophageal varices, initially presented 3 days ago with anxiety and tremors after having stopped drinking 2 days earlier; patient was found to be tachycardic and have severe electrolyte abnormalities (hypokalemia, hypomagnesemia and hypophosphatemia), subsequently admitted to ICU; nephrology service being consulted for acute renal failure; Patient also reportedly had been having diarrhea and vomiting for several days prior to admission; had had fever as high as 104.4 since admission and with diarrhea that still persists; patient had also been hypotensive but responded with volume expansion with IV albumin as well as put on midodrine; has also been started on broad spectrum abx coverage with meropenem and flagyl for suspected intra-abdominal infection; Patient was set to be transferred out of ICU to telemetry last night when he was found to be very somnolent and subsequently intubated; found to have severe respiratory acidosis with pH 6.96 and PCO2 99; Since this morning, urine output has been minimal; patient placed on vasopressor support with levophed and vasopressin; had paracentesis done this morning with 2L drained; has been getting IV albumin for volume expansion; Review of Systems - Review of Systems Systems not reviewed;Unavailable: Altered Mental Status, Intubated Past Patient History - Infectious Disease Hx of Infectious Diseases: None - Tetanus Immunizations Tetanus Immunization: Unknown - Past Medical History & Family History Past Medical History?: Yes Pertinent Family History: Father with liver Ca, mother with breast Ca, sister with brain aneurysm; - Past Social History Smoking Status: Heavy Smoker > 10 Cigarettes Daily - CARDIAC Hx Cardiac Disorders: No - PULMONARY Hx Respiratory Disorders: No Other/Comment: Active smoker - NEUROLOGICAL Hx Neurological Disorder: Yes Hx Seizures: Yes - HEENT Hx HEENT Problems: Yes (eyeglasses) - RENAL Hx Chronic Kidney Disease: No - ENDOCRINE/METABOLIC Hx Endocrine Disorders: No - HEMATOLOGICAL/ONCOLOGICAL Hx Blood Disorders: No - INTEGUMENTARY Hx Dermatological Problems: No - MUSCULOSKELETAL/RHEUMATOLOGICAL Hx Falls: No - GASTROINTESTINAL Hx Gastrointestinal Disorders: Yes Other/Comment: Liver Dx, esophogeal varices, - GENITOURINARY/GYNECOLOGICAL Hx Genitourinary Disorders: No - PSYCHIATRIC Hx Psychophysiologic Disorder: Yes Hx Depression: Yes Hx Substance Use: No - SURGICAL HISTORY Other/Comment: s/p banding of varices x2. endoscopy - ANESTHESIA Hx Anesthesia: Yes Hx Anesthesia Reactions: No Hx Malignant Hyperthermia: No Meds Allergies/Adverse Reactions: Allergies Allergy/AdvReac Type Severity Reaction Status Date / Time pseudoephedrine HCl Allergy Mild NAUSEA Verified 10/02/16 19:19 [From Sudafed] Sulfa (Sulfonamide Allergy Mild ANGIOEDEMA Verified 10/02/16 19:19 Antibiotics) Penicillins AdvReac Anxiety Verified 10/02/16 19:19 - Medications Medications: Current Medications Acetaminophen (Tylenol 160mg/5ml Oral Soln) 320 mg PO Q4 PRN PRN Reason: Fever >100.4 F Last Admin: 10/04/16 13:52 Dose: 320 mg Albuterol/Ipratropium (Duoneb 3 Mg/0.5 Mg (3 Ml) Ud) 3 ml IH [id number] [facility] Last Admin: 10/05/16 13:01 Dose: 3 ml Folic Acid (Folic Acid) 1 mg PO DAILY [facility] Last Admin: 10/05/16 11:31 Dose: 1 mg Hydrocortisone Sodium Succinate (Solu-Cortef) 50 mg IVP Q6H [facility] Last Admin: 10/05/16 14:28 Dose: 50 mg Dexmedetomidine HCl (Precedex 4 Mcg/Ml (100 Ml)) 400 mcg in 100 mls @ 3.765 mls /hr IV .Q24H PRN; Protocol; 0.2 MCG/KG/HR PRN Reason: Agitation Last Titration: 10/04/16 08:45 Dose: 0 mcg/kg/hr, 0 mls/hr Meropenem 1g/NS 100mL IVPB (Meropenem 1g/Ns 100ml Ivpb) 1 gm in 100 mls @ 100 mls/hr IVPB Q8 [facility] PRN Reason: Protocol Stop: 10/12/16 14:01 Last Admin: 10/05/16 14:27 Dose: 100 mls/hr Propofol (Diprivan) 1,000 mg in 100 mls @ 2.259 mls/hr IV .Q24H PRN; Protocol; 5 MCG/KG/MIN PRN Reason: TITRATE PER MD ORDER Last Titration: 10/05/16 07:05 Dose: 0 mcg/kg/min, 0 mls/hr Vasopressin 20 units/ Dextrose 101 mls @ 9.09 mls/hr IV .[id number] [facility]; 0.03 U/MIN PRN Reason: Protocol Last Admin: 10/05/16 07:47 Dose: 9.09 mls/hr NOREPINEPHRINE BIT/0.9 % NACL (Levophed 4 Mg/ 250 Ml Ns Premixed) 4 mg in 250 mls @ 15 mls/hr IV .[id number] PRN; Protocol; 4 MCG/MIN PRN Reason: TITRATE PER MD ORDER Last Admin: 10/05/16 14:25 Dose: 20 mcg/min, 75 mls/hr Fentanyl Citrate (Fentanyl Citrate/Sodium Chloride 1 Mg/100 Ml) 1,000 mcg in 100 mls @ 7.5 mls/hr IV .[id number] PRN; Protocol; 75 MCG/HR PRN Reason: TITRATE PER MD ORDER Last Admin: 10/05/16 07:51 Dose: 75 mcg/hr, 7.5 mls/hr Linezolid (Zyvox 600mg/300ml D5w) 600 mg in 300 mls @ 200 mls/hr IVPB Q12 [facility] PRN Reason: Protocol Stop: 10/12/16 10:01 Last Admin: 10/05/16 11:30 Dose: 200 mls/hr Potassium Chloride (Potassium Chloride 20 Meq/100 Ml) 20 meq in 100 mls @ 50 mls/hr IVPB ONCE ONE Stop: 10/05/16 15:50 Last Admin: 10/05/16 14:27 Dose: 50 mls/hr Lactulose (Enulose) 20 gm PO Q6H [facility] Last Admin: 10/05/16 14:29 Dose: 20 gm Lorazepam (Ativan) 2 mg IVP Q2H PRN; Protocol PRN Reason: Agitation Last Admin: 10/04/16 05:36 Dose: 2 mg Pantoprazole Sodium (Protonix Inj) 40 mg IVP DAILY [facility] Last Admin: 10/05/16 11:31 Dose: 40 mg Potassium Phos/Sodium Phos (Neutra-Phos) 1 pkt PO TID [facility] Last Admin: 10/05/16 14:45 Dose: 1 pkt Rifaximin (Xifaxan) 550 mg PO BID [facility] PRN Reason: Protocol Thiamine HCl (Vitamin B1 Tab) 100 mg PO DAILY [facility] Last Admin: 10/05/16 11:31 Dose: 100 mg Vancomycin HCl (Vancocin 25 Mg/Ml (Oral Use)) 125 mg PO Q6H [facility] PRN Reason: Protocol Last Admin: 10/05/16 11:33 Dose: 125 mg Vitamin A (Vitamin A & D Oint Ud Foilpak) 1 ea TOP DAILY [facility] Last Admin: 10/04/16 09:12 Dose: 1 ea Vitamin B Complex/Vit C/Folic Acid (Nephro-Mariann) 1 tab PO 0800 [facility] Last Admin: 10/05/16 11:32 Dose: 1 tab Physical Exam - Constitutional Additional comments: Intubated, sedated; - Head Exam Head Exam: NORMAL INSPECTION - Eye Exam Eye Exam: Normal appearance. absent: Scleral icterus - ENT Exam ENT Exam: Mucous Membranes Moist - Neck Exam Neck exam: Negative for: Lymphadenopathy - Respiratory Exam Respiratory Exam: absent: Rales, Rhonchi Additional comments: Decreased breath sounds on L; tachypneic; - Cardiovascular Exam Cardiovascular Exam: REGULAR RHYTHM, +S1, +S2 - GI/Abdominal Exam GI & Abdominal Exam: Distended, Soft - Exam Additional comments: terrell in place; - Extremities Exam Additional comments: Moderately edematous legs; - Neurological Exam Additional comments: Sedated; minimally reactive to noxious stimuli; - Skin Skin Exam: Mottled Results - Vital Signs Recent Vital Signs: Last Vital Signs Temp 98.6 F 10/05/16 14:20 Pulse 108 H 10/05/16 14:00 Resp 23 10/04/16 22:38 BP 131/24 L 10/05/16 08:25 Pulse Ox 90 L 10/05/16 08:25 - Labs Result Diagrams: 10/05/16 02:50 10/05/16 02:50 Labs: Laboratory Results - last 24 hr 10/04/16 10/04/16 10/04/16 16:47 21:40 23:21 WBC RBC Hgb Hct MCV MCH MCHC RDW Plt Count MPV Gran % Lymph % (Auto) Crawford % (Auto) Eos % (Auto) Baso % (Auto) Gran # Lymph # Crawford # Eos # Baso # pCO2 99 H* 92 H* pO2 44.0 L* 104.0 H HCO3 22.3 25.5 ABG pH 6.96 L* 7.05 L* ABG Total CO2 25.3 28.3 H ABG O2 Saturation 70.9 L 98.8 H ABG O2 Content 9.8 L 13.5 L ABG Base Excess -10.5 L -6.0 L ABG Hemoglobin 10.1 L 9.9 L ABG Carboxyhemoglobin 2.2 H 2.0 H POC ABG HHb (Measured) 28.3 H 1.2 ABG Methemoglobin 0.6 1.2 ABG O2 Capacity 13.8 L 13.7 L ABG Potassium Hgb O2 Saturation 68.9 L 95.7 Glucose Lactate Mechanical Rate FiO2 100.0 100.0 Tidal Volume PEEP Sodium 143 Potassium 3.1 L Chloride 111 H Carbon Dioxide 25 Anion Gap 10 BUN 19 Creatinine 1.0 Est GFR ( Amer) > 60 Est GFR (Non-Af Amer) > 60 Random Glucose 88 Calcium 6.7 L* Phosphorus Magnesium Total Bilirubin AST ALT Alkaline Phosphatase Ammonia Troponin I Total Protein Albumin Globulin Albumin/Globulin Ratio Arterial Blood Potassium Urine Collection Time Urine Total Volume Urine Potassium Ur Potassium 24 Hour Fluid Source Fluid Appearance Fluid WBC Fluid RBC Fluid Tot Cell Count Fluid Neutrophils Fluid Lymphocytes Fld Monocyte/Macrophag Fluid Comment 10/05/16 10/05/16 10/05/16 01:10 02:50 02:50 WBC 5.4 D RBC 3.02 L Hgb 9.9 L Hct 31.0 L MCV 102.6 D MCH 32.8 MCHC 31.9 RDW 16.7 H Plt Count 110 L MPV 11.7 H Gran % 51.6 Lymph % (Auto) 43.0 H Crawford % (Auto) 3.7 Eos % (Auto) 0.6 L Baso % (Auto) 1.1 Gran # 2.81 Lymph # 2.3 Crawford # 0.2 Eos # 0.0 Baso # 0.06 pCO2 106 H* pO2 86.0 HCO3 24.4 ABG pH 6.97 L* ABG Total CO2 27.7 ABG O2 Saturation 97.2 ABG O2 Content 13.3 L ABG Base Excess -8.4 L ABG Hemoglobin 9.9 L ABG Carboxyhemoglobin 2.2 H POC ABG HHb (Measured) 2.7 ABG Methemoglobin 0.7 ABG O2 Capacity 13.7 L ABG Potassium Hgb O2 Saturation 94.4 L Glucose Lactate Mechanical Rate FiO2 100.0 Tidal Volume PEEP Sodium 141 Potassium 3.4 L Chloride 107 Carbon Dioxide 26 Anion Gap 11 BUN 21 Creatinine 1.5 H Est GFR ( Amer) 59 Est GFR (Non-Af Amer) 48 Random Glucose 175 H Calcium 6.1 L* Phosphorus 6.8 H Magnesium 1.8 Total Bilirubin 3.0 H AST 204 H ALT 90 H Alkaline Phosphatase 56 Ammonia Troponin I 0.04 D Total Protein 4.6 L Albumin 2.3 L Globulin 2.3 Albumin/Globulin Ratio 1.0 L Arterial Blood Potassium Urine Collection Time Urine Total Volume Urine Potassium Ur Potassium 24 Hour Fluid Source Fluid Appearance Fluid WBC Fluid RBC Fluid Tot Cell Count Fluid Neutrophils Fluid Lymphocytes Fld Monocyte/Macrophag Fluid Comment 10/05/16 10/05/16 10/05/16 02:50 05:24 07:00 WBC RBC Hgb Hct MCV MCH MCHC RDW Plt Count MPV Gran % Lymph % (Auto) Crawford % (Auto) Eos % (Auto) Baso % (Auto) Gran # Lymph # Crawford # Eos # Baso # pCO2 89 H* pO2 60.0 L HCO3 21.0 ABG pH 6.98 L* ABG Total CO2 23.7 ABG O2 Saturation 92.9 L ABG O2 Content 11.7 L ABG Base Excess -10.9 L ABG Hemoglobin 9.2 L ABG Carboxyhemoglobin 2.2 H POC ABG HHb (Measured) 6.9 H ABG Methemoglobin 0.5 ABG O2 Capacity 12.6 L ABG Potassium Hgb O2 Saturation 90.4 L Glucose Lactate Mechanical Rate FiO2 100.0 Tidal Volume PEEP Sodium Potassium Chloride Carbon Dioxide Anion Gap BUN Creatinine Est GFR ( Amer) Est GFR (Non-Af Amer) Random Glucose Calcium Phosphorus Magnesium Total Bilirubin AST ALT Alkaline Phosphatase Ammonia 115 H Troponin I Total Protein Albumin Globulin Albumin/Globulin Ratio Arterial Blood Potassium Urine Collection Time 24 Urine Total Volume 890 Urine Potassium 2.9 Ur Potassium 24 Hour 2.6 L Fluid Source Fluid Appearance Fluid WBC Fluid RBC Fluid Tot Cell Count Fluid Neutrophils Fluid Lymphocytes Fld Monocyte/Macrophag Fluid Comment 10/05/16 10/05/16 08:23 10:25 WBC RBC Hgb Hct MCV MCH MCHC RDW Plt Count MPV Gran % Lymph % (Auto) Crawford % (Auto) Eos % (Auto) Baso % (Auto) Gran # Lymph # Crawford # Eos # Baso # pCO2 71 H* pO2 74.0 L HCO3 25.9 ABG pH 7.17 L* ABG Total CO2 28.1 H ABG O2 Saturation 98.6 H ABG O2 Content ABG Base Excess -4.2 L ABG Hemoglobin ABG Carboxyhemoglobin POC ABG HHb (Measured) ABG Methemoglobin ABG O2 Capacity ABG Potassium 2.9 L Hgb O2 Saturation Glucose 109 Lactate 2.7 H Mechanical Rate 30 FiO2 80.0 Tidal Volume 350 PEEP 10 Sodium 145.0 Potassium Chloride 113.0 H Carbon Dioxide Anion Gap BUN Creatinine Est GFR ( Amer) Est GFR (Non-Af Amer) Random Glucose Calcium Phosphorus Magnesium Total Bilirubin AST ALT Alkaline Phosphatase Ammonia Troponin I Total Protein Albumin Globulin Albumin/Globulin Ratio Arterial Blood Potassium 2.9 L Urine Collection Time Urine Total Volume Urine Potassium Ur Potassium 24 Hour Fluid Source Peritoneal Fluid Appearance Clear Fluid WBC 563.0 H Fluid RBC 414.0 H Fluid Tot Cell Count 100 H Fluid Neutrophils 3.4 H Fluid Lymphocytes 96.6 H Fld Monocyte/Macrophag TEST NOT PERFORMED Fluid Comment TEST NOT PERFORMED Assessment & Plan (1) Acute renal failure Assessment and Plan: Oligo-anuric renal failure; patient with profound hypotension and so progression to ATN very likely; hepatorenal etiology possible but is generally diagnosis of exclusion and would generally see low Ur Na that persists even after volume expansion; currently with relatively stable electrolyte status ( actually mild hypokalemia); high FIO2 requirement and so will need to be cautious on giving more volume; no urgent indication for [employer] [facility] at this time; -checking urine Na, UA -aim to keep MAP > 65 with vasopressor support -avoid nephrotoxic agents Status: Acute (2) Acute hypercapnic respiratory failure Assessment and Plan: Unclear etiology; L lung with decreased air movement/low volume; with profound respiratory acidosis; no metabolic acidosis seen; -recommend to stop bicarb drip as this will continue to drive hypercapnea if patient cannot be adequately ventilated Status: Acute (3) Hypokalemia Assessment and Plan: Secondary to GI losses; 24 hr urine potassium appropriately low (ie. no renal potassium wasting); hypokalemia improved; continue to replenish prn; Status: Acute (4) Hypocalcemia Assessment and Plan: Ca corrected for serum albumin still low, being made worse by bicarb administration; should improve after bicarb drip stopped; Status: Acute (5) SIRS (systemic inflammatory response syndrome) Assessment and Plan: Currently on meropnem 1 g q8h and linezolid; need to decrease meropenem to q24h for CrCl < 10 ml/min to avoid buildup of toxic metabolites; no renal dose adjustment for linezolid; Status: Acute
[2016-10-05 16:37] LABS: ARTERIAL BLOOD GAS HCO3 27.1 mmol/L (21-28)
[2016-10-05 16:59] LABS: BASO # 0.01 K/mm3 (0.0-2.0); BASO % 0.2 % (0.0-3.0); EOS % 0.2 % (1.5-5.0); GRAN # 3.41 (1.4-6.5); GRAN % 68.1 % (50.0-68.0); LYMPH # 1.4 (1.2-3.4); LYMPH % 28.1 % (22.0-35.0); MEAN CELL VOLUME 100.5 fl (80.0-105.0); MEAN CORPUSCULAR HEMOGLOBIN 32.4 pg (25.0-35.0); MEAN CORPUSCULAR HGB CONC 32.2 g/dl (31.0-37.0); MEAN PLATELET VOLUME 12.5 fl (7.0-11.0); MONO # 0.2 (0.1-0.6); MONO % 3.4 % (1.0-6.0); PLATELET COUNT 50 10^3/uL (120.0-450.0); RED CELL DISTRIBUTION WIDTH 16.3 % (11.5-14.5)
[2016-10-05 17:11] LABS: HEMATOCRIT 21.1 % (42.0-52.0)
[2016-10-05 17:20] LABS: ARTERIAL BLOOD GAS PH 7.19 (7.35-7.45)
[2016-10-05 17:32] LABS: ALB/GLOB RATIO 1.5 (1.1-1.8); BILIRUBIN,TOTAL 3.3 mg/dL (0.2-1.3); MAGNESIUM 1.3 mg/dL (1.7-2.2); PHOSPHOROUS 5.8 mg/dL (2.5-4.5); POTASSIUM 3.3 mmol/L (3.6-5.0)
[2016-10-05 17:35] LABS: CALCIUM 5.5 mg/dL (8.4-10.5)
[2016-10-05 17:49] LABS: BASO # 0.02 K/mm3 (0.0-2.0); BASO % 0.4 % (0.0-3.0); GRAN # 3.62 (1.4-6.5); GRAN % 68.3 % (50.0-68.0); LYMPH # 1.5 (1.2-3.4); LYMPH % 27.7 % (22.0-35.0); MEAN CORPUSCULAR HEMOGLOBIN 32.7 pg (25.0-35.0); MEAN CORPUSCULAR HGB CONC 32.7 g/dl (31.0-37.0); MONO # 0.2 (0.1-0.6); MONO % 3.6 % (1.0-6.0); PLATELET COUNT 110 10^3/uL (120.0-450.0); RED CELL DISTRIBUTION WIDTH 16.8 % (11.5-14.5); WHITE BLOOD COUNT 5.3 10^3/ul (4.5-11.0)
[2016-10-05 17:56] LABS: HEMATOCRIT 21.1 % (42.0-52.0)
[2016-10-05 17:59] LABS: HYPOCHROMIA SLIGHT; NEUTROPHIL 56 % (50.0-70.0); PLATELET ESTIMATE LOW (NORMAL)
[2016-10-05 18:00] LABS: BAND 17 % (0-2)
[2016-10-05 18:15] LABS: INR 1.81 (0.93-1.08); PARTIAL THROMBOPLASTIN TIME 45.4 Seconds (23.7-30.8)
[2016-10-05] MEDS ORDERED: Meropenem 1g/NS 100mL IVPB 1 GM/100 ML PIGGYBACK IVPB SCH ×2 (18:15→19:39)
[2016-10-05] MEDS ORDERED: Magnesium Sulfate 2 GM in Sodium Chloride 0.9% 100 ML IVPB ONE (19:25)
[2016-10-06 01:16] LABS: ABG MECHANICAL RATE 30; ARTERIAL BLOOD GAS HCO3 23.9 mmol/L (21-28); ARTERIAL BLOOD GAS PH 7.23 (7.35-7.45); ATERIAL BLOOD GAS PEEP 10
[2016-10-06] MEDS: Vasopressin 20 UNITS in Dextrose 5% In Water 100 ML IV SCH (04:38)
[2016-10-06] MEDS: Albuterol-Ipratrop 3 mg / 0.5 (3 ml) UD IH SCH ×4 (04:39→20:00)
[2016-10-06] MEDS: Vancomycin 25 MG/ML PO SCH ×4 (04:43→23:12)
[2016-10-06 05:50] LABS: BASO # 0.01 K/mm3 (0.0-2.0); BASO % 0.2 % (0.0-3.0); GRAN # 4.42 (1.4-6.5); GRAN % 70.2 % (50.0-68.0); LYMPH # 1.7 (1.2-3.4); LYMPH % 26.4 % (22.0-35.0); MEAN CORPUSCULAR HEMOGLOBIN 33.1 pg (25.0-35.0); MEAN CORPUSCULAR HGB CONC 33.8 g/dl (31.0-37.0); MEAN PLATELET VOLUME 12.3 fl (7.0-11.0); MONO # 0.2 (0.1-0.6); MONO % 3.2 % (1.0-6.0); RED CELL DISTRIBUTION WIDTH 16.6 % (11.5-14.5); WHITE BLOOD COUNT 6.3 10^3/ul (4.5-11.0)
[2016-10-06 05:50] LABS: VENOUS BLOOD GAS BASE EXCESS -3.6 mmol/L (0.0-2.0)
[2016-10-06 05:57] LABS: INR 1.55 (0.93-1.08); PARTIAL THROMBOPLASTIN TIME 39.3 Seconds (23.7-30.8)
[2016-10-06] MEDS: NOREPINEPHRINE BIT/0.9 % NACL 4 MG/250 ML BAG IV PRN (06:25)
[2016-10-06 07:28] LABS: ALB/GLOB RATIO 1.5 (1.1-1.8); BILIRUBIN,TOTAL 3.3 mg/dL (0.2-1.3); MAGNESIUM 1.7 mg/dL (1.7-2.2); PHOSPHOROUS 5.4 mg/dL (2.5-4.5); POTASSIUM 3.2 mmol/L (3.6-5.0); TOTAL PROTEIN 4.9 g/dL (5.8-8.3)
[2016-10-06 07:29] LABS: CALCIUM 5.9 mg/dL (8.4-10.5)
[2016-10-06] MEDS ORDERED: Potassium Chloride 40 mEq/30 ml LIQ UD PO ONE (07:38)
[2016-10-06 07:40] LABS: ARTERIAL BLOOD GAS HCO3 24.1 mmol/L (21-28); ARTERIAL BLOOD GAS O2 CAPACITY 13.3 mL/dl (16-24); ARTERIAL BLOOD GAS O2 CONTENT 13.4 ML/dl (15-23); ARTERIAL BLOOD GAS PH 7.25 (7.35-7.45); ARTERIAL BLOOD HGB O2 SAT 97.8 % (95.0-98.0); HHB -0.6 % (0-5); METHEMOGLOBIN 0.8 % (0.0-3.0)
--- NOTE | 2016-10-06 08:07 | PN ---
DATE: SUBJECTIVE: The patient is seen and examined at bedside. He was intubated overnight for hypercapnic respiratory failure. At the present time, several changes in the patient's management were made including current ventilator setting at PRVC 350/30/10/80% on bedside and oxygen saturation at present time 99%. ABG would like to get it extended. He is on vasopressin 0.03 units per minute and norepinephrine 23 mcg per minute. The patient is afebrile and temperature is 98.2. He is sedated with fentanyl 75 mcg per hour. The patient received three 5% 250 mL of iso-oncotic albumin. A 25% albumin every one hour total eight doses were ordered. Antibiotics were upgraded to Zyvox on top of meropenem and Flagyl. Vancomycin p.o. continued. Chest x-ray performed today morning revealed new infiltrate. Paracentesis was performed earlier in the morning with 2.5 L of straw-colored fluid removed. Cell count, gram-stain, and cultures pending. PHYSICAL EXAMINATION: HEAD AND NECK: Atraumatic. LUNGS: Few crackles bibasilarly. HEART: Regular rate and rhythm. S1 and S2 distant. ABDOMEN: Soft, nontender, and nondistended, status post paracentesis. NEUROLOGIC: The patient was sedated, but was seen following all extremities. MUSCULOSKELETAL: No C/C/E. PSYCHIATRIC: The patient is sedated. SKIN: Moist. LABORATORY DATA: WBC 5.4, hemoglobin 9.9 unchanged, and platelet count 110. Sodium 141, potassium 3.4, chloride 107, carbon dioxide 26, BUN 21, creatinine 1.5 up from 1, calcium 6.1, ammonia level 115 (lactulose and rifaximin were started), and troponin 0.04. Peritoneal cell count returned as lymphocyte predominant, total WBC 563, and blood culture from three days ago is negative. MEDICATIONS: Albumin, Precedex, folic acid, hydrocortisone 50 mg IV q.6 hours, lactulose, Ativan p.r.n., meropenem, norepinephrine, Protonix, rifaximin, bicarb drip, vancomycin p.o., thiamine, vasopressin, vitamin A and B, and Zyvox. ASSESSMENT AND PLAN: This is a 56-year-old gentleman who initially presented with alcohol withdrawal and persistent hypokalemia, which were corrected. Yesterday, the patient was actually in his usual state of health. However, overnight, he rapidly deteriorated with hypercapnic respiratory failure, requiring intubation. His ventilator setting was adjusted; however, the patient became hemodynamically unstable and required vasopressor support with norepinephrine and vasopressin. Most likely, he has distributive shock due to acute decompensated chronic liver failure versus sepsis, with multiorgan dysfunction syndrome including respiratory failure, acute kidney injury, and encephalopathy. The patient's antibiotics were upgraded, fluid resuscitation (aggressive) continued. Albumin supplementation started. ABG is pending. Surprisingly though, ascites is lymphocyte predominant. Possibility of lymphoma or malignancy was put back on differential diagnosis. Meanwhile, septic workup is continued. Sputum culture, blood culture, and peritoneal fluid culture were ordered. We will send peritoneal fluid for cytology as well. We will get nephrology consult on board . NEUROLOGIC: The patient is sedated with fentanyl and Ativan p.r.n. He is comfortable. PULMONARY: We will continue with protective lung ventilatory strategy. We will taper down FiO2 as tolerated. Possibility of hospital-acquired pneumonia cannot be ruled out and antibiotics were upgraded. Sputum cultures were sent. We will continue with head of bed elevated at >35 degrees. We will continue with DVT and GI prophylaxis. We will optimize positive end-expiratory pressure. We will continue with conservative oxygen management. CARDIOVASCULAR: The patient is in distributive shock. He is on norepinephrine 23 mcg per minute and vasopressin 0.03 units per minute. Albumin supplementation and resuscitation is ongoing in light of the patient's liver failure. GASTROINTESTINAL: The patient has chronic liver disease and at present time likely has decompensated chronic liver failure. Ascites is lymphocyte predominant and cytology will be sent to evaluate for potential malignancy/lymphoma?. We will continue with GI prophylaxis. We will continue with lactulose and rifaximin for hepatic encephalopathy in the setting of hyperammonemia. GI is on board and we will update Dr. Kaminski about recent developments. ID: Septic workup initiated and antibiotics upgraded. ID service followup appreciated. ENDOCRINE: Stress dose steroids started. We will maintain blood glucose within 140 to 180 range. ccm time 40 min Otto Hinojosa MD [facility] # [id number] [place]
[2016-10-06 08:16] LABS: URINE BILIRUBIN MODERATE (NEGATIVE); URINE BLOOD LARGE (NEGATIVE); URINE GLUCOSE (UA) NEGATIVE (NEGATIVE); URINE KETONE 15 mg/dL (NEGATIVE); URINE LEUKOCYTE ESTERASE TRACE Leu/uL (NEGATIVE); URINE PROTEIN >=300 mg/dL (<30 mg/dL)
[2016-10-06 08:34] LABS: URINE COLOR YELLOW (YELLOW)
[2016-10-06 08:37] LABS: URINE APPEARANCE CLOUDY (CLEAR)
[2016-10-06 08:38] LABS: URINE BACTERIA MOD (NEG); URINE RBC TNTC /hpf (0-2)
[2016-10-06] MEDS: Multivitamin Vitamin B Complex (Nephro-Vite) Tab PO SCH (08:42)
[2016-10-06] MEDS: Vancomycin 1gm in NS 250ml 1 GM/250 ML BAG IVPB STA ×2 (08:46→09:31)
--- NOTE | 2016-10-06 08:48 | RAD ---
HISTORY: Mech vent COMPARISON: Portable chest 10/05/2016. FINDINGS: LUNGS: Stable endotracheal tube placement. Knee J-tube is a again identified placed entry into the abdomen the tip off the inferior margins of the image. Increased infiltrate identified left perihilar and right infrahilar space with no definite pleural effusion appreciable bilaterally. No pneumothorax. PLEURA: As per above. CARDIOVASCULAR: Stable PICC position. Cardiac silhouette remains normal size with no definite pulmonary vascular derangement identified. OSSEOUS STRUCTURES: No significant abnormalities. VISUALIZED UPPER ABDOMEN: Normal. OTHER FINDINGS: None. IMPRESSION: Interval worsening of pneumonia, left perihilar and right infrahilar spaces. Clinical and radiographic follow-up are advised.
--- NOTE | 2016-10-06 09:09 | CP.CCUPN ---
<KENDY CERNA - Last Filed: 10/06/16 12:36> CCU Subjective - Physician Review Subjective (Free Text): 10/06/16 09:06 Patient seen and assessed at bedside. Patient intubated and sedated. Patient received three units of pRBC's and one unit of FFP overnight with no acute events, per nursing. ROS unobtainable due to patients clinical condition. CCU Objective - Vital Signs / Intake & Output Vital Signs (Last 4 hours): Vital Signs Temp Pulse Resp BP Pulse Ox 10/06/16 06:00 87 10/06/16 05:55 99.3 F 87 32 H 120/73 99 10/06/16 05:30 98.4 F 89 34 H 115/67 99 Intake and Output (Last 8hrs): Intake & Output 10/05/16 10/06/16 10/06/16 22:59 06:59 14:59 Intake Total 4314 2597 93 Output Total 2375 100 Balance 1939 2497 93 Intake: IV 2344 872 93 Left Hand 1109 24 Left Upper arm 100 Right Upper arm 990 468 Tube Feeding 70 Blood Product 0 1575 Red Blood Cells Cpd As1 325 Lr Unit [id number] Red Blood Cells Cpd As1 325 Lr Unit [id number] Red Blood Cells Cpd As1 0 325 Lr Unit [id number] Albumin 1900 Other 150 Red Blood Cells Cpd As1 50 Lr Unit [id number] Red Blood Cells Cpd As1 50 Lr Unit [id number] Red Blood Cells Cpd As1 50 Lr Unit [id number] Output: Drainage 2325 Paracentesis 2325 Urine 50 100 Urethral (Vyas) 50 100 Other: Voiding Method Indwelling Catheter Indwelling Catheter # Bowel Movements 2 2 - Physical Exam Physical Exam Limitations: Positive for: Other (Intubated and sedated) Head: Positive for: Atraumatic, Normocephalic Pupils: Positive for: PERRL, Sluggish Conjunctiva: Positive for: Normal Mouth: Positive for: Other (OG tube and EDT ) Nose (External): Positive for: Atraumatic Neck: Positive for: Trachea Midline. Negative for: JVD, Lymphadenopathy Respiratory/Chest: Positive for: Rhonchi (Left lobe with rhonchi), Other ( Mechanical vent). Negative for: Respiratory Distress, Retracting Cardiovascular: Positive for: Regular Rate and Rhythm, Normal S1, S2. Negative for: Murmurs, Irregular Rhythm, Tachycardic Abdomen: Positive for: Distention, Normal Bowel Sounds, Hernias (Reducable umbilical hernia), Other (Ascites with L flank dulln to percussion). Negative for: Tenderness, Guarding Back: Positive for: Normal Inspection. Negative for: Midline Tenderness, Paraspinal Tenderness Upper Extremity: Positive for: Normal Inspection, Edema (+1 pitting edema of R hand). Negative for: Cyanosis Lower Extremity: Positive for: Normal Inspection, NORMAL PULSES. Negative for: Edema Neurological: Positive for: Other (intubated on sedation) Skin: Positive for: Warm, Laceration (scattered throughout in various stages of healing). Negative for: Normal Color - Medications Active Medications: Active Medications Generic Name Dose Route Start Last Admin Trade Name Freq PRN Reason Stop Dose Admin Acetaminophen 320 mg 10/03/16 07:45 10/04/16 13:52 Tylenol 160mg/5ml Oral Soln PO 320 mg Q4 PRN Administration Fever >100.4 F Albuterol/Ipratropium 3 ml 10/05/16 08:00 10/06/16 07:25 Duoneb 3 Mg/0.5 Mg (3 Ml) Ud IH 3 ml [id number] TONI Administration Calcium Carbonate 600 mg 10/06/16 10:00 10/06/16 09:06 Caltrate PO 600 mg DAILY TONI Administration Folic Acid 1 mg 10/03/16 10:00 10/06/16 09:05 Folic Acid PO 1 mg DAILY TONI Administration Hydrocortisone Sodium Succinate 50 mg 10/05/16 07:30 10/06/16 08:42 Solu-Cortef IVP 50 mg Q6H TONI Administration Dexmedetomidine HCl 400 mcg in 100 mls @ 3.765 mls/hr 10/03/16 09:20 08:45 Precedex 4 Mcg/Ml (100 Ml) IV 0 mcg/kg/hr .Q24H PRN 0 mls/hr Agitation Titration Protocol 0.2 MCG/KG/HR Propofol 1,000 mg in 100 mls @ 2.259 mls/hr 10/04/16 22:03 10/05/16 07:05 Diprivan IV 0 mcg/kg/min .Q24H PRN 0 mls/hr TITRATE PER MD ORDER Titration Protocol 5 MCG/KG/MIN Vasopressin 20 units/ Dextrose 101 mls @ 9.09 mls/hr 10/05/16 07:30 10/06/16 04:38 IV 9.09 mls/hr .[id number] TONI Administration Protocol 0.03 U/MIN NOREPINEPHRINE BIT/0.9 % NACL 4 mg in 250 mls @ 15 mls/hr 10/05/16 07:18 02/21 08:35 Levophed 4 Mg/ 250 Ml Ns Premixed IV 6 mcg/min .[id number] PRN 22.5 mls/hr TITRATE PER MD ORDER Titration Protocol 4 MCG/MIN Fentanyl Citrate 1,000 mcg in 100 mls @ 7.5 mls/hr 10/05/16 07:39 10/05/16 23 :30 Fentanyl Citrate/Sodium Chloride 1 Mg/100 Ml IV 20 mcg/hr .[id number] PRN 2 mls/hr TITRATE PER MD ORDER Titration Protocol 75 MCG/HR Meropenem 500 mg/ Sodium 100 mls @ 100 mls/hr 10/06/16 14:00 Chloride IVPB 10/15/16 14:01 Q8 TONI Protocol Vancomycin HCl 1 gm in 250 mls @ 167 mls/hr 10/06/16 07:54 Vancomycin 1gm IVPB 10/06/16 09:23 STAT STA Protocol Lorazepam 2 mg 10/02/16 21:28 10/04/16 05:36 Ativan IVP 2 mg Q2H PRN Administration Agitation Protocol Pantoprazole Sodium 40 mg 10/03/16 10:00 10/06/16 09:03 Protonix Inj IVP 40 mg DAILY TONI Administration Potassium Phos/Sodium Phos 1 pkt 10/03/16 17:30 10/05/16 17:36 Neutra-Phos PO 1 pkt TID TONI Administration Rifaximin 550 mg 10/05/16 10:00 10/06/16 09:05 Xifaxan PO 550 mg BID TONI Administration Protocol Thiamine HCl 100 mg 10/03/16 10:00 10/06/16 09:06 Vitamin B1 Tab PO 100 mg DAILY TONI Administration Vancomycin HCl 125 mg 10/03/16 11:00 10/06/16 04:43 Vancocin 25 Mg/Ml (Oral Use) PO 125 mg Q6H TONI Administration Protocol Vitamin A 1 ea 10/03/16 10:00 10/05/16 15:51 Vitamin A & D Oint Ud Foilpak TOP 1 ea DAILY TONI Administration Vitamin B Complex/Vit C/Folic Acid 1 tab 10/03/16 08:00 10/06/16 08:42 Nephro-Mariann PO 1 tab 0800 TONI Administration - Patient Studies Lab Studies: Microbiology Studies 10/05/16 08:23 Gram Stain - Final Peritoneal Fluid Body Fluid Culture - Preliminary NO GROWTH AFTER 24 HOURS 10/02/16 23:55 Blood Culture - Preliminary Blood NO GROWTH AFTER 3 DAYS 10/02/16 23:35 Blood Culture - Preliminary Blood NO GROWTH AFTER 3 DAYS 10/05/16 08:30 Gram Stain - Final Sputum 10/04/16 18:18 C. difficile Antigen & Toxin A,B (M - Final Stool 10/04/16 13:40 Urine Culture - Final Urine,Catheterized No Growth (<1,000 CFU/ML) Lab Studies 10/06/16 10/06/16 10/06/16 Range/Units 08:05 08:05 07:20 WBC (4.5-11.0) 10^3/ul RBC (3.5-6.1) 10^6/uL Hgb (14.0-18.0) g/dL Hct (42.0-52.0) % MCV (80.0-105.0) fl MCH (25.0-35.0) pg MCHC (31.0-37.0) g/dl RDW (11.5-14.5) % Plt Count (120.0-450.0) 10^3/uL MPV (7.0-11.0) fl Gran % (50.0-68.0) % Lymph % (Auto) (22.0-35.0) % [place] % (Auto) (1.0-6.0) % Eos % (Auto) (1.5-5.0) % Baso % (Auto) (0.0-3.0) % Gran # (1.4-6.5) Lymph # (1.2-3.4) [place] # (0.1-0.6) Eos # (0.0-0.7) Baso # (0.0-2.0) K/mm3 Neutrophils % (Manual) (50.0-70.0) % Band Neutrophils % (0-2) % Lymphocytes % (Manual) (22.0-35.0) % Monocytes % (Manual) (1.0-6.0) % Platelet Evaluation (NORMAL) Hypochromasia PT (9.9-11.8) Seconds INR (0.93-1.08) APTT (23.7-30.8) Seconds pCO2 55 H (35-45) mm/Hg pO2 140.0 H (80-100) mm/Hg HCO3 24.1 (21-28) mmol/L ABG pH 7.25 L (7.35-7.45) ABG Total CO2 25.8 (22-28) mmol.L ABG O2 Saturation 100.6 H (95-98) % ABG O2 Content 13.4 L (15-23) ML/dl ABG Base Excess -3.4 L (-2.0-3.0) mmol/L ABG Hemoglobin 9.5 L (11.7-17.4) g/dL ABG Carboxyhemoglobin 2.0 H (0.5-1.5) % POC ABG HHb (Measured) -0.6 L (0-5) % ABG Methemoglobin 0.8 (0.0-3.0) % ABG O2 Capacity 13.3 L (16-24) mL/dl ABG Potassium (3.6-5.2) mmol/L VBG pH (7.32-7.43) VBG pCO2 (40-60) VBG HCO3 (21-28) mmol/l VBG Total CO2 (22-28) mmol.L VBG O2 Sat (Calc) (40-65) % VBG Base Excess (0.0-2.0) mmol/L VBG Potassium (3.6-5.2) mmol/L Hgb O2 Saturation 97.8 (95.0-98.0) % Sodium (132-148) mmol/L Chloride (98-107) mmol/L Glucose (75-110) mg/dl Lactate (0.7-2.1) mmol/L Mechanical Rate FiO2 60.0 % Tidal Volume PEEP Potassium (3.6-5.0) mmol/L Carbon Dioxide (21-33) mmol/L Anion Gap (10-20) BUN (7-21) mg/dL Creatinine (0.5-1.4) mg/dL Est GFR ( Amer) Est GFR (Non-Af Amer) Random Glucose (70-110) mg/dL Calcium (8.4-10.5) mg/dL Phosphorus (2.5-4.5) mg/dL Magnesium (1.7-2.2) mg/dL Total Bilirubin (0.2-1.3) mg/dL AST (17-59) U/L ALT (7-56) U/L Alkaline Phosphatase (38-126) U/L Ammonia (9-33) umol/L Total Protein (5.8-8.3) g/dL Albumin (3.0-4.8) g/dL Globulin gm/dL Albumin/Globulin Ratio (1.1-1.8) Arterial Blood Potassium (3.6-5.2) mmol/L Venous Blood Potassium (3.6-5.2) mmol/L Urine Color Yellow (YELLOW) Urine Appearance Cloudy (CLEAR) Urine pH 5.0 (4.7-8.0) Ur Specific [place] >= 1.030 (1.005-1.035) Urine Protein >=300 H (<30 mg/dL) mg/dL Urine Glucose (UA) Negative (NEGATIVE) mg/dL Urine Ketones 15 H (NEGATIVE) mg/dL Urine Blood Large H (NEGATIVE) Urine Nitrate Positive H (NEGATIVE) Urine Bilirubin Moderate H (NEGATIVE) Urine Urobilinogen 1.0 H (<1 E.U./dL) E.U./dL Ur Leukocyte Esterase Trace H (NEGATIVE) Anthony/uL Urine RBC Tntc (0-2) /hpf Urine WBC 5 - 10 (0-6) /hpf Ur Epithelial Cells 4 - 5 (0-5) /hpf Urine Bacteria Mod (NEG) Ur Random Creatinine 210 mg/dL Ur Random Sodium 37 meq/L Fluid Appearance (CLEAR) Fluid WBC (0.0-300.0) /uL Fluid RBC (0.0-0.0) /uL Fluid Tot Cell Count (0-0) Fluid Neutrophils (0-0) % Fluid Lymphocytes (0-0) % Fld Monocyte/Macrophag Fluid Comment Stool Occult Blood (NEGATIVE) Blood Type Antibody Screen Crossmatch BBK History Checked 10/06/16 10/06/16 10/06/16 Range/Units 05:30 05:01 05:00 WBC (4.5-11.0) 10^3/ul RBC (3.5-6.1) 10^6/uL Hgb (14.0-18.0) g/dL Hct (42.0-52.0) % MCV (80.0-105.0) fl MCH (25.0-35.0) pg MCHC (31.0-37.0) g/dl RDW (11.5-14.5) % Plt Count (120.0-450.0) 10^3/uL MPV (7.0-11.0) fl Gran % (50.0-68.0) % Lymph % (Auto) (22.0-35.0) % [place] % (Auto) (1.0-6.0) % Eos % (Auto) (1.5-5.0) % Baso % (Auto) (0.0-3.0) % Gran # (1.4-6.5) Lymph # (1.2-3.4) [place] # (0.1-0.6) Eos # (0.0-0.7) Baso # (0.0-2.0) K/mm3 Neutrophils % (Manual) (50.0-70.0) % Band Neutrophils % (0-2) % Lymphocytes % (Manual) (22.0-35.0) % Monocytes % (Manual) (1.0-6.0) % Platelet Evaluation (NORMAL) Hypochromasia PT (9.9-11.8) Seconds INR (0.93-1.08) APTT (23.7-30.8) Seconds pCO2 (35-45) mm/Hg pO2 92 H (80-100) mm/Hg HCO3 (21-28) mmol/L ABG pH (7.35-7.45) ABG Total CO2 (22-28) mmol.L ABG O2 Saturation (95-98) % ABG O2 Content (15-23) ML/dl ABG Base Excess (-2.0-3.0) mmol/L ABG Hemoglobin (11.7-17.4) g/dL ABG Carboxyhemoglobin (0.5-1.5) % POC ABG HHb (Measured) (0-5) % ABG Methemoglobin (0.0-3.0) % ABG O2 Capacity (16-24) mL/dl ABG Potassium (3.6-5.2) mmol/L VBG pH 7.20 L (7.32-7.43) VBG pCO2 66.0 H* (40-60) VBG HCO3 25.8 (21-28) mmol/l VBG Total CO2 27.8 (22-28) mmol.L VBG O2 Sat (Calc) 99.2 H (40-65) % VBG Base Excess -3.6 L (0.0-2.0) mmol/L VBG Potassium 3.1 L (3.6-5.2) mmol/L Hgb O2 Saturation (95.0-98.0) % Sodium 143.0 (132-148) mmol/L Chloride 109.0 H (98-107) mmol/L Glucose 166 H (75-110) mg/dl Lactate 1.8 (0.7-2.1) mmol/L Mechanical Rate FiO2 21.0 % Tidal Volume PEEP Potassium (3.6-5.0) mmol/L Carbon Dioxide (21-33) mmol/L Anion Gap (10-20) BUN (7-21) mg/dL Creatinine (0.5-1.4) mg/dL Est GFR ( Amer) Est GFR (Non-Af Amer) Random Glucose (70-110) mg/dL Calcium (8.4-10.5) mg/dL Phosphorus (2.5-4.5) mg/dL Magnesium (1.7-2.2) mg/dL Total Bilirubin (0.2-1.3) mg/dL AST (17-59) U/L ALT (7-56) U/L Alkaline Phosphatase (38-126) U/L Ammonia 66 H (9-33) umol/L Total Protein (5.8-8.3) g/dL Albumin (3.0-4.8) g/dL Globulin gm/dL Albumin/Globulin Ratio (1.1-1.8) Arterial Blood Potassium (3.6-5.2) mmol/L Venous Blood Potassium 3.1 L (3.6-5.2) mmol/L Urine Color (YELLOW) Urine Appearance (CLEAR) Urine pH (4.7-8.0) Ur Specific [place] (1.005-1.035) Urine Protein (<30 mg/dL) mg/dL Urine Glucose (UA) (NEGATIVE) mg/dL Urine Ketones (NEGATIVE) mg/dL Urine Blood (NEGATIVE) Urine Nitrate (NEGATIVE) Urine Bilirubin (NEGATIVE) Urine Urobilinogen (<1 E.U./dL) E.U./dL Ur Leukocyte Esterase (NEGATIVE) Anthony/uL Urine RBC (0-2) /hpf Urine WBC (0-6) /hpf Ur Epithelial Cells (0-5) /hpf Urine Bacteria (NEG) Ur Random Creatinine mg/dL Ur Random Sodium 43 meq/L Fluid Appearance (CLEAR) Fluid WBC (0.0-300.0) /uL Fluid RBC (0.0-0.0) /uL Fluid Tot Cell Count (0-0) Fluid Neutrophils (0-0) % Fluid Lymphocytes (0-0) % Fld Monocyte/Macrophag Fluid Comment Stool Occult Blood (NEGATIVE) Blood Type Antibody Screen Crossmatch BBK History Checked 10/06/16 10/06/16 10/06/16 Range/Units 05:00 05:00 05:00 WBC 6.3 (4.5-11.0) 10^3/ul RBC 2.96 L (3.5-6.1) 10^6/uL Hgb 9.8 L D (14.0-18.0) g/dL Hct 29.0 L (42.0-52.0) % MCV 98.0 (80.0-105.0) fl MCH 33.1 (25.0-35.0) pg MCHC 33.8 (31.0-37.0) g/dl RDW 16.6 H (11.5-14.5) % Plt Count 43 L* (120.0-450.0) 10^3/uL MPV 12.3 H (7.0-11.0) fl Gran % 70.2 H (50.0-68.0) % Lymph % (Auto) 26.4 (22.0-35.0) % [place] % (Auto) 3.2 (1.0-6.0) % Eos % (Auto) 0.0 L (1.5-5.0) % Baso % (Auto) 0.2 (0.0-3.0) % Gran # 4.42 (1.4-6.5) Lymph # 1.7 (1.2-3.4) [place] # 0.2 (0.1-0.6) Eos # 0.0 (0.0-0.7) Baso # 0.01 (0.0-2.0) K/mm3 Neutrophils % (Manual) (50.0-70.0) % Band Neutrophils % (0-2) % Lymphocytes % (Manual) (22.0-35.0) % Monocytes % (Manual) (1.0-6.0) % Platelet Evaluation (NORMAL) Hypochromasia PT 16.7 H (9.9-11.8) Seconds INR 1.55 H (0.93-1.08) APTT 39.3 H (23.7-30.8) Seconds pCO2 (35-45) mm/Hg pO2 (80-100) mm/Hg HCO3 (21-28) mmol/L ABG pH (7.35-7.45) ABG Total CO2 (22-28) mmol.L ABG O2 Saturation (95-98) % ABG O2 Content (15-23) ML/dl ABG Base Excess (-2.0-3.0) mmol/L ABG Hemoglobin (11.7-17.4) g/dL ABG Carboxyhemoglobin (0.5-1.5) % POC ABG HHb (Measured) (0-5) % ABG Methemoglobin (0.0-3.0) % ABG O2 Capacity (16-24) mL/dl ABG Potassium (3.6-5.2) mmol/L VBG pH (7.32-7.43) VBG pCO2 (40-60) VBG HCO3 (21-28) mmol/l VBG Total CO2 (22-28) mmol.L VBG O2 Sat (Calc) (40-65) % VBG Base Excess (0.0-2.0) mmol/L VBG Potassium (3.6-5.2) mmol/L Hgb O2 Saturation (95.0-98.0) % Sodium 145 (132-148) mmol/L Chloride 108 H (98-107) mmol/L Glucose (75-110) mg/dl Lactate (0.7-2.1) mmol/L Mechanical Rate FiO2 % Tidal Volume PEEP Potassium 3.2 L (3.6-5.0) mmol/L Carbon Dioxide 24 (21-33) mmol/L Anion Gap 16 (10-20) BUN 24 H (7-21) mg/dL Creatinine 1.9 H (0.5-1.4) mg/dL Est GFR ( Amer) 45 Est GFR (Non-Af Amer) 37 Random Glucose 160 H (70-110) mg/dL Calcium 5.9 L* (8.4-10.5) mg/dL Phosphorus 5.4 H (2.5-4.5) mg/dL Magnesium 1.7 (1.7-2.2) mg/dL Total Bilirubin 3.3 H (0.2-1.3) mg/dL AST 164 H (17-59) U/L ALT 70 H (7-56) U/L Alkaline Phosphatase 42 (38-126) U/L Ammonia (9-33) umol/L Total Protein 4.9 L (5.8-8.3) g/dL Albumin 2.9 L (3.0-4.8) g/dL Globulin 2.0 gm/dL Albumin/Globulin Ratio 1.5 (1.1-1.8) Arterial Blood Potassium (3.6-5.2) mmol/L Venous Blood Potassium (3.6-5.2) mmol/L Urine Color (YELLOW) Urine Appearance (CLEAR) Urine pH (4.7-8.0) Ur Specific [place] (1.005-1.035) Urine Protein (<30 mg/dL) mg/dL Urine Glucose (UA) (NEGATIVE) mg/dL Urine Ketones (NEGATIVE) mg/dL Urine Blood (NEGATIVE) Urine Nitrate (NEGATIVE) Urine Bilirubin (NEGATIVE) Urine Urobilinogen (<1 E.U./dL) E.U./dL Ur Leukocyte Esterase (NEGATIVE) Anthony/uL Urine RBC (0-2) /hpf Urine WBC (0-6) /hpf Ur Epithelial Cells (0-5) /hpf Urine Bacteria (NEG) Ur Random Creatinine mg/dL Ur Random Sodium meq/L Fluid Appearance (CLEAR) Fluid WBC (0.0-300.0) /uL Fluid RBC (0.0-0.0) /uL Fluid Tot Cell Count (0-0) Fluid Neutrophils (0-0) % Fluid Lymphocytes (0-0) % Fld Monocyte/Macrophag Fluid Comment Stool Occult Blood (NEGATIVE) Blood Type Antibody Screen Crossmatch BBK History Checked 10/06/16 10/06/16 10/05/16 Range/Units 02:01 01:11 21:16 WBC (4.5-11.0) 10^3/ul RBC (3.5-6.1) 10^6/uL Hgb (14.0-18.0) g/dL Hct (42.0-52.0) % MCV (80.0-105.0) fl MCH (25.0-35.0) pg MCHC (31.0-37.0) g/dl RDW (11.5-14.5) % Plt Count (120.0-450.0) 10^3/uL MPV (7.0-11.0) fl Gran % (50.0-68.0) % Lymph % (Auto) (22.0-35.0) % [place] % (Auto) (1.0-6.0) % Eos % (Auto) (1.5-5.0) % Baso % (Auto) (0.0-3.0) % Gran # (1.4-6.5) Lymph # (1.2-3.4) [place] # (0.1-0.6) Eos # (0.0-0.7) Baso # (0.0-2.0) K/mm3 Neutrophils % (Manual) (50.0-70.0) % Band Neutrophils % (0-2) % Lymphocytes % (Manual) (22.0-35.0) % Monocytes % (Manual) (1.0-6.0) % Platelet Evaluation (NORMAL) Hypochromasia PT (9.9-11.8) Seconds INR (0.93-1.08) APTT (23.7-30.8) Seconds pCO2 57 H (35-45) mm/Hg pO2 125.0 H (80-100) mm/Hg HCO3 23.9 (21-28) mmol/L ABG pH 7.23 L (7.35-7.45) ABG Total CO2 25.6 (22-28) mmol.L ABG O2 Saturation 100.3 H (95-98) % ABG O2 Content (15-23) ML/dl ABG Base Excess -3.8 L (-2.0-3.0) mmol/L ABG Hemoglobin (11.7-17.4) g/dL ABG Carboxyhemoglobin (0.5-1.5) % POC ABG HHb (Measured) (0-5) % ABG Methemoglobin (0.0-3.0) % ABG O2 Capacity (16-24) mL/dl ABG Potassium 3.2 L (3.6-5.2) mmol/L VBG pH (7.32-7.43) VBG pCO2 (40-60) VBG HCO3 (21-28) mmol/l VBG Total CO2 (22-28) mmol.L VBG O2 Sat (Calc) (40-65) % VBG Base Excess (0.0-2.0) mmol/L VBG Potassium (3.6-5.2) mmol/L Hgb O2 Saturation (95.0-98.0) % Sodium 143.0 (132-148) mmol/L Chloride 111.0 H (98-107) mmol/L Glucose 174 H (75-110) mg/dl Lactate 2.0 (0.7-2.1) mmol/L Mechanical Rate 30 FiO2 60.0 % Tidal Volume 350 PEEP 10 Potassium (3.6-5.0) mmol/L Carbon Dioxide (21-33) mmol/L Anion Gap (10-20) BUN (7-21) mg/dL Creatinine (0.5-1.4) mg/dL Est GFR ( Amer) Est GFR (Non-Af Amer) Random Glucose (70-110) mg/dL Calcium (8.4-10.5) mg/dL Phosphorus (2.5-4.5) mg/dL Magnesium (1.7-2.2) mg/dL Total Bilirubin (0.2-1.3) mg/dL AST (17-59) U/L ALT (7-56) U/L Alkaline Phosphatase (38-126) U/L Ammonia (9-33) umol/L Total Protein (5.8-8.3) g/dL Albumin (3.0-4.8) g/dL Globulin gm/dL Albumin/Globulin Ratio (1.1-1.8) Arterial Blood Potassium 3.2 L (3.6-5.2) mmol/L Venous Blood Potassium (3.6-5.2) mmol/L Urine Color (YELLOW) Urine Appearance (CLEAR) Urine pH (4.7-8.0) Ur Specific [place] (1.005-1.035) Urine Protein (<30 mg/dL) mg/dL Urine Glucose (UA) (NEGATIVE) mg/dL Urine Ketones (NEGATIVE) mg/dL Urine Blood (NEGATIVE) Urine Nitrate (NEGATIVE) Urine Bilirubin (NEGATIVE) Urine Urobilinogen (<1 E.U./dL) E.U./dL Ur Leukocyte Esterase (NEGATIVE) Anthony/uL Urine RBC (0-2) /hpf Urine WBC (0-6) /hpf Ur Epithelial Cells (0-5) /hpf Urine Bacteria (NEG) Ur Random Creatinine 210 mg/dL Ur Random Sodium meq/L Fluid Appearance (CLEAR) Fluid WBC (0.0-300.0) /uL Fluid RBC (0.0-0.0) /uL Fluid Tot Cell Count (0-0) Fluid Neutrophils (0-0) % Fluid Lymphocytes (0-0) % Fld Monocyte/Macrophag Fluid Comment Stool Occult Blood Positive H (NEGATIVE) Blood Type Antibody Screen Crossmatch BBK History Checked 10/05/16 10/05/16 10/05/16 Range/Units 18:20 17:00 17:00 WBC 5.3 (4.5-11.0) 10^3/ul RBC 2.11 L (3.5-6.1) 10^6/uL Hgb 6.9 L* (14.0-18.0) g/dL Hct 21.1 L (42.0-52.0) % MCV 100.0 (80.0-105.0) fl MCH 32.7 (25.0-35.0) pg MCHC 32.7 (31.0-37.0) g/dl RDW 16.8 H (11.5-14.5) % Plt Count 110 L (120.0-450.0) 10^3/uL MPV (7.0-11.0) fl Gran % 68.3 H (50.0-68.0) % Lymph % (Auto) 27.7 (22.0-35.0) % [place] % (Auto) 3.6 (1.0-6.0) % Eos % (Auto) 0.0 L (1.5-5.0) % Baso % (Auto) 0.4 (0.0-3.0) % Gran # 3.62 (1.4-6.5) Lymph # 1.5 (1.2-3.4) [place] # 0.2 (0.1-0.6) Eos # 0.0 (0.0-0.7) Baso # 0.02 (0.0-2.0) K/mm3 Neutrophils % (Manual) (50.0-70.0) % Band Neutrophils % (0-2) % Lymphocytes % (Manual) (22.0-35.0) % Monocytes % (Manual) (1.0-6.0) % Platelet Evaluation (NORMAL) Hypochromasia PT (9.9-11.8) Seconds INR (0.93-1.08) APTT (23.7-30.8) Seconds pCO2 (35-45) mm/Hg pO2 (80-100) mm/Hg HCO3 (21-28) mmol/L ABG pH (7.35-7.45) ABG Total CO2 (22-28) mmol.L ABG O2 Saturation (95-98) % ABG O2 Content (15-23) ML/dl ABG Base Excess (-2.0-3.0) mmol/L ABG Hemoglobin (11.7-17.4) g/dL ABG Carboxyhemoglobin (0.5-1.5) % POC ABG HHb (Measured) (0-5) % ABG Methemoglobin (0.0-3.0) % ABG O2 Capacity (16-24) mL/dl ABG Potassium (3.6-5.2) mmol/L VBG pH (7.32-7.43) VBG pCO2 (40-60) VBG HCO3 (21-28) mmol/l VBG Total CO2 (22-28) mmol.L VBG O2 Sat (Calc) (40-65) % VBG Base Excess (0.0-2.0) mmol/L VBG Potassium (3.6-5.2) mmol/L Hgb O2 Saturation (95.0-98.0) % Sodium (132-148) mmol/L Chloride (98-107) mmol/L Glucose (75-110) mg/dl Lactate (0.7-2.1) mmol/L Mechanical Rate FiO2 % Tidal Volume PEEP Potassium (3.6-5.0) mmol/L Carbon Dioxide (21-33) mmol/L Anion Gap (10-20) BUN (7-21) mg/dL Creatinine (0.5-1.4) mg/dL Est GFR ( Amer) Est GFR (Non-Af Amer) Random Glucose (70-110) mg/dL Calcium (8.4-10.5) mg/dL Phosphorus (2.5-4.5) mg/dL Magnesium (1.7-2.2) mg/dL Total Bilirubin (0.2-1.3) mg/dL AST (17-59) U/L ALT (7-56) U/L Alkaline Phosphatase (38-126) U/L Ammonia 59 H (9-33) umol/L Total Protein (5.8-8.3) g/dL Albumin (3.0-4.8) g/dL Globulin gm/dL Albumin/Globulin Ratio (1.1-1.8) Arterial Blood Potassium (3.6-5.2) mmol/L Venous Blood Potassium (3.6-5.2) mmol/L Urine Color (YELLOW) Urine Appearance (CLEAR) Urine pH (4.7-8.0) Ur Specific [place] (1.005-1.035) Urine Protein (<30 mg/dL) mg/dL Urine Glucose (UA) (NEGATIVE) mg/dL Urine Ketones (NEGATIVE) mg/dL Urine Blood (NEGATIVE) Urine Nitrate (NEGATIVE) Urine Bilirubin (NEGATIVE) Urine Urobilinogen (<1 E.U./dL) E.U./dL Ur Leukocyte Esterase (NEGATIVE) [place]/uL Urine RBC (0-2) /hpf Urine WBC (0-6) /hpf Ur Epithelial Cells (0-5) /hpf Urine Bacteria (NEG) Ur Random Creatinine mg/dL Ur Random Sodium meq/L Fluid Appearance (CLEAR) Fluid WBC (0.0-300.0) /uL Fluid RBC (0.0-0.0) /uL Fluid Tot Cell Count (0-0) Fluid Neutrophils (0-0) % Fluid Lymphocytes (0-0) % Fld Monocyte/Macrophag Fluid Comment Stool Occult Blood (NEGATIVE) Blood Type O POSITIVE Antibody Screen Negative Crossmatch See Detail BBK History Checked Patient has bt 10/05/16 10/05/16 10/05/16 Range/Units 17:00 16:50 16:50 WBC 5.0 (4.5-11.0) 10^3/ul RBC 2.10 L (3.5-6.1) 10^6/uL Hgb 6.8 L* D (14.0-18.0) g/dL Hct 21.1 L (42.0-52.0) % MCV 100.5 (80.0-105.0) fl MCH 32.4 (25.0-35.0) pg MCHC 32.2 (31.0-37.0) g/dl RDW 16.3 H (11.5-14.5) % Plt Count 50 L (120.0-450.0) 10^3/uL MPV 12.5 H (7.0-11.0) fl Gran % 68.1 H (50.0-68.0) % Lymph % (Auto) 28.1 (22.0-35.0) % [place] % (Auto) 3.4 (1.0-6.0) % Eos % (Auto) 0.2 L (1.5-5.0) % Baso % (Auto) 0.2 (0.0-3.0) % Gran # 3.41 (1.4-6.5) Lymph # 1.4 (1.2-3.4) [place] # 0.2 (0.1-0.6) Eos # 0.0 (0.0-0.7) Baso # 0.01 (0.0-2.0) K/mm3 Neutrophils % (Manual) 56 (50.0-70.0) % Band Neutrophils % 17 H* (0-2) % Lymphocytes % (Manual) 23 (22.0-35.0) % Monocytes % (Manual) 4 (1.0-6.0) % Platelet Evaluation Low (NORMAL) Hypochromasia Slight PT 19.5 H (9.9-11.8) Seconds INR 1.81 H (0.93-1.08) APTT 45.4 H (23.7-30.8) Seconds pCO2 (35-45) mm/Hg pO2 (80-100) mm/Hg HCO3 (21-28) mmol/L ABG pH (7.35-7.45) ABG Total CO2 (22-28) mmol.L ABG O2 Saturation (95-98) % ABG O2 Content (15-23) ML/dl ABG Base Excess (-2.0-3.0) mmol/L ABG Hemoglobin (11.7-17.4) g/dL ABG Carboxyhemoglobin (0.5-1.5) % POC ABG HHb (Measured) (0-5) % ABG Methemoglobin (0.0-3.0) % ABG O2 Capacity (16-24) mL/dl ABG Potassium (3.6-5.2) mmol/L VBG pH (7.32-7.43) VBG pCO2 (40-60) VBG HCO3 (21-28) mmol/l VBG Total CO2 (22-28) mmol.L VBG O2 Sat (Calc) (40-65) % VBG Base Excess (0.0-2.0) mmol/L VBG Potassium (3.6-5.2) mmol/L Hgb O2 Saturation (95.0-98.0) % Sodium 143 (132-148) mmol/L Chloride 106 (98-107) mmol/L Glucose (75-110) mg/dl Lactate (0.7-2.1) mmol/L Mechanical Rate FiO2 % Tidal Volume PEEP Potassium 3.3 L (3.6-5.0) mmol/L Carbon Dioxide 24 (21-33) mmol/L Anion Gap 16 (10-20) BUN 20 (7-21) mg/dL Creatinine 1.7 H (0.5-1.4) mg/dL Est GFR ( Amer) 51 Est GFR (Non-Af Amer) 42 Random Glucose 195 H (70-110) mg/dL Calcium 5.5 L* (8.4-10.5) mg/dL Phosphorus 5.8 H (2.5-4.5) mg/dL Magnesium 1.3 L (1.7-2.2) mg/dL Total Bilirubin 3.3 H (0.2-1.3) mg/dL AST 167 H (17-59) U/L ALT 68 H (7-56) U/L Alkaline Phosphatase 34 L (38-126) U/L Ammonia (9-33) umol/L Total Protein 5.0 L (5.8-8.3) g/dL Albumin 2.9 L (3.0-4.8) g/dL Globulin 2.0 gm/dL Albumin/Globulin Ratio 1.5 (1.1-1.8) Arterial Blood Potassium (3.6-5.2) mmol/L Venous Blood Potassium (3.6-5.2) mmol/L Urine Color (YELLOW) Urine Appearance (CLEAR) Urine pH (4.7-8.0) Ur Specific [place] (1.005-1.035) Urine Protein (<30 mg/dL) mg/dL Urine Glucose (UA) (NEGATIVE) mg/dL Urine Ketones (NEGATIVE) mg/dL Urine Blood (NEGATIVE) Urine Nitrate (NEGATIVE) Urine Bilirubin (NEGATIVE) Urine Urobilinogen (<1 E.U./dL) E.U./dL Ur Leukocyte Esterase (NEGATIVE) [place]/uL Urine RBC (0-2) /hpf Urine WBC (0-6) /hpf Ur Epithelial Cells (0-5) /hpf Urine Bacteria (NEG) Ur Random Creatinine mg/dL Ur Random Sodium meq/L Fluid Appearance (CLEAR) Fluid WBC (0.0-300.0) /uL Fluid RBC (0.0-0.0) /uL Fluid Tot Cell Count (0-0) Fluid Neutrophils (0-0) % Fluid Lymphocytes (0-0) % Fld Monocyte/Macrophag Fluid Comment Stool Occult Blood (NEGATIVE) Blood Type Antibody Screen Crossmatch BBK History Checked 10/05/16 10/05/16 10/05/16 Range/Units 16:25 10:25 08:23 WBC (4.5-11.0) 10^3/ul RBC (3.5-6.1) 10^6/uL Hgb (14.0-18.0) g/dL Hct (42.0-52.0) % MCV (80.0-105.0) fl MCH (25.0-35.0) pg MCHC (31.0-37.0) g/dl RDW (11.5-14.5) % Plt Count (120.0-450.0) 10^3/uL MPV (7.0-11.0) fl Gran % (50.0-68.0) % Lymph % (Auto) (22.0-35.0) % [place] % (Auto) (1.0-6.0) % Eos % (Auto) (1.5-5.0) % Baso % (Auto) (0.0-3.0) % Gran # (1.4-6.5) Lymph # (1.2-3.4) [place] # (0.1-0.6) Eos # (0.0-0.7) Baso # (0.0-2.0) K/mm3 Neutrophils % (Manual) (50.0-70.0) % Band Neutrophils % (0-2) % Lymphocytes % (Manual) (22.0-35.0) % Monocytes % (Manual) (1.0-6.0) % Platelet Evaluation (NORMAL) Hypochromasia PT (9.9-11.8) Seconds INR (0.93-1.08) APTT (23.7-30.8) Seconds pCO2 71 H* 71 H* (35-45) mm/Hg pO2 176.0 H 74.0 L (80-100) mm/Hg HCO3 27.1 25.9 (21-28) mmol/L ABG pH 7.19 L* 7.17 L* (7.35-7.45) ABG Total CO2 29.3 H 28.1 H (22-28) mmol.L ABG O2 Saturation 100.8 H 98.6 H (95-98) % ABG O2 Content (15-23) ML/dl ABG Base Excess -1.5 -4.2 L (-2.0-3.0) mmol/L ABG Hemoglobin (11.7-17.4) g/dL ABG Carboxyhemoglobin (0.5-1.5) % POC ABG HHb (Measured) (0-5) % ABG Methemoglobin (0.0-3.0) % ABG O2 Capacity (16-24) mL/dl ABG Potassium 3.3 L 2.9 L (3.6-5.2) mmol/L VBG pH (7.32-7.43) VBG pCO2 (40-60) VBG HCO3 (21-28) mmol/l VBG Total CO2 (22-28) mmol.L VBG O2 Sat (Calc) (40-65) % VBG Base Excess (0.0-2.0) mmol/L VBG Potassium (3.6-5.2) mmol/L Hgb O2 Saturation (95.0-98.0) % Sodium 144.0 145.0 (132-148) mmol/L Chloride 114.0 H 113.0 H (98-107) mmol/L Glucose 154 H 109 (75-110) mg/dl Lactate 2.3 H 2.7 H (0.7-2.1) mmol/L Mechanical Rate 30 FiO2 80.0 80.0 % Tidal Volume 350 PEEP 10 Potassium (3.6-5.0) mmol/L Carbon Dioxide (21-33) mmol/L Anion Gap (10-20) BUN (7-21) mg/dL Creatinine (0.5-1.4) mg/dL Est GFR ( Amer) Est GFR (Non-Af Amer) Random Glucose (70-110) mg/dL Calcium (8.4-10.5) mg/dL Phosphorus (2.5-4.5) mg/dL Magnesium (1.7-2.2) mg/dL Total Bilirubin (0.2-1.3) mg/dL AST (17-59) U/L ALT (7-56) U/L Alkaline Phosphatase (38-126) U/L Ammonia (9-33) umol/L Total Protein (5.8-8.3) g/dL Albumin (3.0-4.8) g/dL Globulin gm/dL Albumin/Globulin Ratio (1.1-1.8) Arterial Blood Potassium 3.3 L 2.9 L (3.6-5.2) mmol/L Venous Blood Potassium (3.6-5.2) mmol/L Urine Color (YELLOW) Urine Appearance (CLEAR) Urine pH (4.7-8.0) Ur Specific [place] (1.005-1.035) Urine Protein (<30 mg/dL) mg/dL Urine Glucose (UA) (NEGATIVE) mg/dL Urine Ketones (NEGATIVE) mg/dL Urine Blood (NEGATIVE) Urine Nitrate (NEGATIVE) Urine Bilirubin (NEGATIVE) Urine Urobilinogen (<1 E.U./dL) E.U./dL Ur Leukocyte Esterase (NEGATIVE) Anthony/uL Urine RBC (0-2) /hpf Urine WBC (0-6) /hpf Ur Epithelial Cells (0-5) /hpf Urine Bacteria (NEG) Ur Random Creatinine mg/dL Ur Random Sodium meq/L Fluid Appearance Clear (CLEAR) Fluid WBC 563.0 H (0.0-300.0) /uL Fluid RBC 414.0 H (0.0-0.0) /uL Fluid Tot Cell Count 100 H (0-0) Fluid Neutrophils 3.4 H (0-0) % Fluid Lymphocytes 96.6 H (0-0) % Fld Monocyte/Macrophag TEST NOT PERFORMED Fluid Comment TEST NOT PERFORMED Stool Occult Blood (NEGATIVE) Blood Type Antibody Screen Crossmatch BBK History Checked Laboratory Results - last 24 hr 10/05/16 10/05/16 10/05/16 08:23 10:25 16:25 WBC RBC Hgb Hct MCV MCH MCHC RDW Plt Count MPV Gran % Lymph % (Auto) [place] % (Auto) Eos % (Auto) Baso % (Auto) Gran # Lymph # [place] # Eos # Baso # Neutrophils % (Manual) Band Neutrophils % Lymphocytes % (Manual) Monocytes % (Manual) Platelet Evaluation Hypochromasia PT INR APTT pCO2 71 H* 71 H* pO2 74.0 L 176.0 H HCO3 25.9 27.1 ABG pH 7.17 L* 7.19 L* ABG Total CO2 28.1 H 29.3 H ABG O2 Saturation 98.6 H 100.8 H ABG O2 Content ABG Base Excess -4.2 L -1.5 ABG Hemoglobin ABG Carboxyhemoglobin POC ABG HHb (Measured) ABG Methemoglobin ABG O2 Capacity ABG Potassium 2.9 L 3.3 L VBG pH VBG pCO2 VBG HCO3 VBG Total CO2 VBG O2 Sat (Calc) VBG Base Excess VBG Potassium Hgb O2 Saturation Sodium 145.0 144.0 Chloride 113.0 H 114.0 H Glucose 109 154 H Lactate 2.7 H 2.3 H Mechanical Rate 30 FiO2 80.0 80.0 Tidal Volume 350 PEEP 10 Potassium Carbon Dioxide Anion Gap BUN Creatinine Est GFR ( Amer) Est GFR (Non-Af Amer) Random Glucose Calcium Phosphorus Magnesium Total Bilirubin AST ALT Alkaline Phosphatase Ammonia Total Protein Albumin Globulin Albumin/Globulin Ratio Arterial Blood Potassium 2.9 L 3.3 L Venous Blood Potassium Urine Color Urine Appearance Urine pH Ur Specific [place] Urine Protein Urine Glucose (UA) Urine Ketones Urine Blood Urine Nitrate Urine Bilirubin Urine Urobilinogen Ur Leukocyte Esterase Urine RBC Urine WBC Ur Epithelial Cells Urine Bacteria Ur Random Creatinine Ur Random Sodium Fluid Appearance Clear Fluid WBC 563.0 H Fluid RBC 414.0 H Fluid Tot Cell Count 100 H Fluid Neutrophils 3.4 H Fluid Lymphocytes 96.6 H Fld Monocyte/Macrophag TEST NOT PERFORMED Fluid Comment TEST NOT PERFORMED Stool Occult Blood Blood Type Antibody Screen Crossmatch BBK History Checked 10/05/16 10/05/16 10/05/16 16:50 16:50 17:00 WBC 5.0 RBC 2.10 L Hgb 6.8 L* D Hct 21.1 L MCV 100.5 MCH 32.4 MCHC 32.2 RDW 16.3 H Plt Count 50 L MPV 12.5 H Gran % 68.1 H Lymph % (Auto) 28.1 [place] % (Auto) 3.4 Eos % (Auto) 0.2 L Baso % (Auto) 0.2 Gran # 3.41 Lymph # 1.4 [place] # 0.2 Eos # 0.0 Baso # 0.01 Neutrophils % (Manual) 56 Band Neutrophils % 17 H* Lymphocytes % (Manual) 23 Monocytes % (Manual) 4 Platelet Evaluation Low Hypochromasia Slight PT 19.5 H INR 1.81 H APTT 45.4 H pCO2 pO2 HCO3 ABG pH ABG Total CO2 ABG O2 Saturation ABG O2 Content ABG Base Excess ABG Hemoglobin ABG Carboxyhemoglobin POC ABG HHb (Measured) ABG Methemoglobin ABG O2 Capacity ABG Potassium VBG pH VBG pCO2 VBG HCO3 VBG Total CO2 VBG O2 Sat (Calc) VBG Base Excess VBG Potassium Hgb O2 Saturation Sodium 143 Chloride 106 Glucose Lactate Mechanical Rate FiO2 Tidal Volume PEEP Potassium 3.3 L Carbon Dioxide 24 Anion Gap 16 BUN 20 Creatinine 1.7 H Est GFR ( Amer) 51 Est GFR (Non-Af Amer) 42 Random Glucose 195 H Calcium 5.5 L* Phosphorus 5.8 H Magnesium 1.3 L Total Bilirubin 3.3 H AST 167 H ALT 68 H Alkaline Phosphatase 34 L Ammonia Total Protein 5.0 L Albumin 2.9 L Globulin 2.0 Albumin/Globulin Ratio 1.5 Arterial Blood Potassium Venous Blood Potassium Urine Color Urine Appearance Urine pH Ur Specific [place] Urine Protein Urine Glucose (UA) Urine Ketones Urine Blood Urine Nitrate Urine Bilirubin Urine Urobilinogen Ur Leukocyte Esterase Urine RBC Urine WBC Ur Epithelial Cells Urine Bacteria Ur Random Creatinine Ur Random Sodium Fluid Appearance Fluid WBC Fluid RBC Fluid Tot Cell Count Fluid Neutrophils Fluid Lymphocytes Fld Monocyte/Macrophag Fluid Comment Stool Occult Blood Blood Type Antibody Screen Crossmatch BBK History Checked 10/05/16 10/05/16 10/05/16 17:00 17:00 18:20 WBC 5.3 RBC 2.11 L Hgb 6.9 L* Hct 21.1 L MCV 100.0 MCH 32.7 MCHC 32.7 RDW 16.8 H Plt Count 110 L MPV Gran % 68.3 H Lymph % (Auto) 27.7 [place] % (Auto) 3.6 Eos % (Auto) 0.0 L Baso % (Auto) 0.4 Gran # 3.62 Lymph # 1.5 [place] # 0.2 Eos # 0.0 Baso # 0.02 Neutrophils % (Manual) Band Neutrophils % Lymphocytes % (Manual) Monocytes % (Manual) Platelet Evaluation Hypochromasia PT INR APTT pCO2 pO2 HCO3 ABG pH ABG Total CO2 ABG O2 Saturation ABG O2 Content ABG Base Excess ABG Hemoglobin ABG Carboxyhemoglobin POC ABG HHb (Measured) ABG Methemoglobin ABG O2 Capacity ABG Potassium VBG pH VBG pCO2 VBG HCO3 VBG Total CO2 VBG O2 Sat (Calc) VBG Base Excess VBG Potassium Hgb O2 Saturation Sodium Chloride Glucose Lactate Mechanical Rate FiO2 Tidal Volume PEEP Potassium Carbon Dioxide Anion Gap BUN Creatinine Est GFR ( Amer) Est GFR (Non-Af Amer) Random Glucose Calcium Phosphorus Magnesium Total Bilirubin AST ALT Alkaline Phosphatase Ammonia 59 H Total Protein Albumin Globulin Albumin/Globulin Ratio Arterial Blood Potassium Venous Blood Potassium Urine Color Urine Appearance Urine pH Ur Specific [place] Urine Protein Urine Glucose (UA) Urine Ketones Urine Blood Urine Nitrate Urine Bilirubin Urine Urobilinogen Ur Leukocyte Esterase Urine RBC Urine WBC Ur Epithelial Cells Urine Bacteria Ur Random Creatinine Ur Random Sodium Fluid Appearance Fluid WBC Fluid RBC Fluid Tot Cell Count Fluid Neutrophils Fluid Lymphocytes Fld Monocyte/Macrophag Fluid Comment Stool Occult Blood Blood Type O POSITIVE Antibody Screen Negative Crossmatch See Detail BBK History Checked Patient has bt 10/05/16 10/06/16 10/06/16 21:16 01:11 02:01 WBC RBC Hgb Hct MCV MCH MCHC RDW Plt Count MPV Gran % Lymph % (Auto) [place] % (Auto) Eos % (Auto) Baso % (Auto) Gran # Lymph # [place] # Eos # Baso # Neutrophils % (Manual) Band Neutrophils % Lymphocytes % (Manual) Monocytes % (Manual) Platelet Evaluation Hypochromasia PT INR APTT pCO2 57 H pO2 125.0 H HCO3 23.9 ABG pH 7.23 L ABG Total CO2 25.6 ABG O2 Saturation 100.3 H ABG O2 Content ABG Base Excess -3.8 L ABG Hemoglobin ABG Carboxyhemoglobin POC ABG HHb (Measured) ABG Methemoglobin ABG O2 Capacity ABG Potassium 3.2 L VBG pH VBG pCO2 VBG HCO3 VBG Total CO2 VBG O2 Sat (Calc) VBG Base Excess VBG Potassium Hgb O2 Saturation Sodium 143.0 Chloride 111.0 H Glucose 174 H Lactate 2.0 Mechanical Rate 30 FiO2 60.0 Tidal Volume 350 PEEP 10 Potassium Carbon Dioxide Anion Gap BUN Creatinine Est GFR ( Amer) Est GFR (Non-Af Amer) Random Glucose Calcium Phosphorus Magnesium Total Bilirubin AST ALT Alkaline Phosphatase Ammonia Total Protein Albumin Globulin Albumin/Globulin Ratio Arterial Blood Potassium 3.2 L Venous Blood Potassium Urine Color Urine Appearance Urine pH Ur Specific [place] Urine Protein Urine Glucose (UA) Urine Ketones Urine Blood Urine Nitrate Urine Bilirubin Urine Urobilinogen Ur Leukocyte Esterase Urine RBC Urine WBC Ur Epithelial Cells Urine Bacteria Ur Random Creatinine 210 Ur Random Sodium Fluid Appearance Fluid WBC Fluid RBC Fluid Tot Cell Count Fluid Neutrophils Fluid Lymphocytes Fld Monocyte/Macrophag Fluid Comment Stool Occult Blood Positive H Blood Type Antibody Screen Crossmatch BBK History Checked 10/06/16 10/06/16 10/06/16 05:00 05:00 05:00 WBC 6.3 RBC 2.96 L Hgb 9.8 L D Hct 29.0 L MCV 98.0 MCH 33.1 MCHC 33.8 RDW 16.6 H Plt Count 43 L* MPV 12.3 H Gran % 70.2 H Lymph % (Auto) 26.4 [place] % (Auto) 3.2 Eos % (Auto) 0.0 L Baso % (Auto) 0.2 Gran # 4.42 Lymph # 1.7 [place] # 0.2 Eos # 0.0 Baso # 0.01 Neutrophils % (Manual) Band Neutrophils % Lymphocytes % (Manual) Monocytes % (Manual) Platelet Evaluation Hypochromasia PT 16.7 H INR 1.55 H APTT 39.3 H pCO2 pO2 HCO3 ABG pH ABG Total CO2 ABG O2 Saturation ABG O2 Content ABG Base Excess ABG Hemoglobin ABG Carboxyhemoglobin POC ABG HHb (Measured) ABG Methemoglobin ABG O2 Capacity ABG Potassium VBG pH VBG pCO2 VBG HCO3 VBG Total CO2 VBG O2 Sat (Calc) VBG Base Excess VBG Potassium Hgb O2 Saturation Sodium 145 Chloride 108 H Glucose Lactate Mechanical Rate FiO2 Tidal Volume PEEP Potassium 3.2 L Carbon Dioxide 24 Anion Gap 16 BUN 24 H Creatinine 1.9 H Est GFR ( Amer) 45 Est GFR (Non-Af Amer) 37 Random Glucose 160 H Calcium 5.9 L* Phosphorus 5.4 H Magnesium 1.7 Total Bilirubin 3.3 H AST 164 H ALT 70 H Alkaline Phosphatase 42 Ammonia Total Protein 4.9 L Albumin 2.9 L Globulin 2.0 Albumin/Globulin Ratio 1.5 Arterial Blood Potassium Venous Blood Potassium Urine Color Urine Appearance Urine pH Ur Specific [place] Urine Protein Urine Glucose (UA) Urine Ketones Urine Blood Urine Nitrate Urine Bilirubin Urine Urobilinogen Ur Leukocyte Esterase Urine RBC Urine WBC Ur Epithelial Cells Urine Bacteria Ur Random Creatinine Ur Random Sodium Fluid Appearance Fluid WBC Fluid RBC Fluid Tot Cell Count Fluid Neutrophils Fluid Lymphocytes Fld Monocyte/Macrophag Fluid Comment Stool Occult Blood Blood Type Antibody Screen Crossmatch BBK History Checked 10/06/16 10/06/16 10/06/16 05:00 05:01 05:30 WBC RBC Hgb Hct MCV MCH MCHC RDW Plt Count MPV Gran % Lymph % (Auto) [place] % (Auto) Eos % (Auto) Baso % (Auto) Gran # Lymph # [place] # Eos # Baso # Neutrophils % (Manual) Band Neutrophils % Lymphocytes % (Manual) Monocytes % (Manual) Platelet Evaluation Hypochromasia PT INR APTT pCO2 pO2 92 H HCO3 ABG pH ABG Total CO2 ABG O2 Saturation ABG O2 Content ABG Base Excess ABG Hemoglobin ABG Carboxyhemoglobin POC ABG HHb (Measured) ABG Methemoglobin ABG O2 Capacity ABG Potassium VBG pH 7.20 L VBG pCO2 66.0 H* VBG HCO3 25.8 VBG Total CO2 27.8 VBG O2 Sat (Calc) 99.2 H VBG Base Excess -3.6 L VBG Potassium 3.1 L Hgb O2 Saturation Sodium 143.0 Chloride 109.0 H Glucose 166 H Lactate 1.8 Mechanical Rate FiO2 21.0 Tidal Volume PEEP Potassium Carbon Dioxide Anion Gap BUN Creatinine Est GFR ( Amer) Est GFR (Non-Af Amer) Random Glucose Calcium Phosphorus Magnesium Total Bilirubin AST ALT Alkaline Phosphatase Ammonia 66 H Total Protein Albumin Globulin Albumin/Globulin Ratio Arterial Blood Potassium Venous Blood Potassium 3.1 L Urine Color Urine Appearance Urine pH Ur Specific [place] Urine Protein Urine Glucose (UA) Urine Ketones Urine Blood Urine Nitrate Urine Bilirubin Urine Urobilinogen Ur Leukocyte Esterase Urine RBC Urine WBC Ur Epithelial Cells Urine Bacteria Ur Random Creatinine Ur Random Sodium 43 Fluid Appearance Fluid WBC Fluid RBC Fluid Tot Cell Count Fluid Neutrophils Fluid Lymphocytes Fld Monocyte/Macrophag Fluid Comment Stool Occult Blood Blood Type Antibody Screen Crossmatch BBK History Checked 10/06/16 10/06/16 10/06/16 07:20 08:05 08:05 WBC RBC Hgb Hct MCV MCH MCHC RDW Plt Count MPV Gran % Lymph % (Auto) [place] % (Auto) Eos % (Auto) Baso % (Auto) Gran # Lymph # [place] # Eos # Baso # Neutrophils % (Manual) Band Neutrophils % Lymphocytes % (Manual) Monocytes % (Manual) Platelet Evaluation Hypochromasia PT INR APTT pCO2 55 H pO2 140.0 H HCO3 24.1 ABG pH 7.25 L ABG Total CO2 25.8 ABG O2 Saturation 100.6 H ABG O2 Content 13.4 L ABG Base Excess -3.4 L ABG Hemoglobin 9.5 L ABG Carboxyhemoglobin 2.0 H POC ABG HHb (Measured) -0.6 L ABG Methemoglobin 0.8 ABG O2 Capacity 13.3 L ABG Potassium VBG pH VBG pCO2 VBG HCO3 VBG Total CO2 VBG O2 Sat (Calc) VBG Base Excess VBG Potassium Hgb O2 Saturation 97.8 Sodium Chloride Glucose Lactate Mechanical Rate FiO2 60.0 Tidal Volume PEEP Potassium Carbon Dioxide Anion Gap BUN Creatinine Est GFR ( Amer) Est GFR (Non-Af Amer) Random Glucose Calcium Phosphorus Magnesium Total Bilirubin AST ALT Alkaline Phosphatase Ammonia Total Protein Albumin Globulin Albumin/Globulin Ratio Arterial Blood Potassium Venous Blood Potassium Urine Color Yellow Urine Appearance Cloudy Urine pH 5.0 Ur Specific [place] >= 1.030 Urine Protein >=300 H Urine Glucose (UA) Negative Urine Ketones 15 H Urine Blood Large H Urine Nitrate Positive H Urine Bilirubin Moderate H Urine Urobilinogen 1.0 H Ur Leukocyte Esterase Trace H Urine RBC Tntc Urine WBC 5 - 10 Ur Epithelial Cells 4 - 5 Urine Bacteria Mod Ur Random Creatinine 210 Ur Random Sodium 37 Fluid Appearance Fluid WBC Fluid RBC Fluid Tot Cell Count Fluid Neutrophils Fluid Lymphocytes Fld Monocyte/Macrophag Fluid Comment Stool Occult Blood Blood Type Antibody Screen Crossmatch BBK History Checked Fingerstick Blood Sugar Results: 114 Review of Systems - Review of Systems Review of Systems: Please refer to HPI Critical Care Progress Note - Ventilator Checklist Head of Bed 30 Degrees: Yes PUD Prophalyxis: Yes DVT Prophylaxis: Yes - Nutrition Nutrition: Nutrition Category Date Time Status NPO Diet [DIET] Diets 10/06/16 Breakfast Ordered Assessment/Plan - Assessment and Plan (Free Text) Assessment: 56 year old male with an initial presentation of AMS in the setting of persistent hypokalemia and alcohol withdrawal, which resolved. Patient was then intubated after he was found to be in hypercapnic respiratory failure and subsequently became hemodynamically unstable requiring dual vasopressor support. His presentation is consistent with distributive shock likely from either acute decompensated chronic liver failure or sepsis from C. Diff colitis , with multiorgan dysfunction syndrome including renal failure, encephalopathy and respiratory failure. Plan: Neuro: -CT head showed on 10/02no acute findings in the brain and no acute hemorrhages or infarcts, age related cortical atrophy and ventriculomegaly -Currently intubated and sedated on Fentanyl drip at 20mcg/hr -Continue Ativan 2mg IVP Q2H PRN for symptoms of alcohol withdrawal -Ammonia level of 66 -Current CIWA score: 4 -Continue Thiamine, Folic Acid and MV supplementation -Continue soft bilateral upper limb restraints, CIWA protocols, seizure, aspiration and fall precautions Pulm: Mechanical ventilation settings currently at: FiO2-50 PEEP-10 RR-26 Tidal Volume-400 -Chest X-Ray on 10/06 showed interval worsening of pneumonia, left perihilar and right infrahilar spaces -Will continue with antibiotic therapy recommendations within his renal parameters, per ID -Will continue protective lung ventilator strategy -Continue Duonebs 3ml IH [id number] for wheezing -Respiratory acidosis noted to be improving on ABG and ventilator settings will continue to be adjusted accordingly Cardio: -EKG done on 10/05 shows sinus tachycardia at a rate of 106 and low voltage QRS with a non-specific t-wave abnormality -ECHO pending -Continue Levophed at 23mcg/min and Vasopressin at 0.03u/min for blood pressure support -Fluid and albumin resuscitation will continue in setting of patients liver failure -Continue Solu-CORTEF 50mg IVP Q6H -Cardiology consulted, appreciate all recommendations GI: -CT abdomen/pelvis done on 10/04 showed possible sigmoid colitis, mild-to- moderate abdominal and pelvic ascites, free intrarenal gas or definite bowel obstruction, and hepatosplenomegaly again identified as well as diffuse fatty infiltration of liver -Approximately 2.5L of fluid removed via paracentesis on 10/05 with appropriate albumin resuscitation provided -Ascites predominantly lymphocytic, will await cytology results to rule out malignancy -Continue Flagyl 250mg IVPB Q8H, Merrem 500mg IVPB Q8H, and Vancomycin 125mg PO Q6H for C. Difficile, per ID -AST/ALT at 164/70 with T. Bili at 3.3 -MELD score of 22 points correlated with 19.6% three month mortality and Child- [place] Class C, 82% abdominal surgery perioperative mortality with a life expectancy of 1-3 years -Will continue rifaximin for hepatic encephalopathy in setting of hyperammonemia -GI consulted, all recommendations appreciated Renal: -BUN/Creatinine at 24/1.9, representing SHAMAR -Vyas catheter in place and only draining 150cc of dark cloudy urine over the past 24 hours -FENa at 0.2% -Presenting hypokalemia likely due to GI losses as 24 hour urine potassium is appropriately low -Hyperphosphatemia at 5.4 will be monitored -Calcium, magnesium and potassium repleted -Will continue to monitor with serial CMP's, magnesium and phosphorous levels -Nephrology consulted, all recommendations appreciated Heme/Onc: -H/H at 9.8/29.0, which indicates adequate response to replenished pRBC's given on 10/05 -Platelets at 43, will replenish with one unit of platelets -Bedside ultrasound revealed no retroperotineal bleeding -Will continue to monitor with serial CBC's -LE duplex pending ID: -Currently afebrile for 48 hours -Currently on antibiotic therapy as indicated above for pneumonia and colitis -MRSA screen, sputum, blood and urine cultures with no growth for 3 days -Procal pending -Continue Tylenol 320mg (Liquid) PO Q4 PRN for fever over 100.4, -ID consulted, all recommendations appreciated Endocrine: -On shock dosage IV steroids -Will maintain blood glucose between 140 and 180 Lines: -A-line in left femoral -PICC in right brachial -Continue all peripheral lines GI Prophylaxis: Protonix DVT Prophylaxis: SCD's Patient seen and case discussed with attending, Dr. Groves. - Date & Time Date: 10/06/16 Time: 09:18 <Rafael Groves - Last Filed: 10/06/16 13:09> CCU Objective - Vital Signs / Intake & Output Vital Signs (Last 4 hours): Vital Signs Pulse 10/06/16 10:00 84 Intake and Output (Last 8hrs): Intake & Output 10/05/16 10/06/16 10/06/16 22:59 06:59 14:59 Intake Total 4314 2597 1158.4 Output Total 2375 100 50 Balance 1939 2497 1108.4 Weight 245 lb 1.6 oz Intake: IV 2344 872 1158.4 Left Hand 1109 24 Left Upper arm 100 1030 Right Upper arm 990 468 Tube Feeding 70 Blood Product 0 1575 Red Blood Cells Cpd As1 325 Lr Unit [id number] Red Blood Cells Cpd As1 325 Lr Unit [id number] Red Blood Cells Cpd As1 0 325 Lr Unit [id number] Albumin 1900 Other 150 Red Blood Cells Cpd As1 50 Lr Unit [id number] Red Blood Cells Cpd As1 50 Lr Unit [id number] Red Blood Cells Cpd As1 50 Lr Unit [id number] Output: Drainage 2325 Paracentesis 2325 Urine 50 100 50 Urethral (Vyas) 50 100 50 Other: Voiding Method Indwelling Catheter Indwelling Catheter # Bowel Movements 2 2 - Medications Active Medications: Active Medications Generic Name Dose Route Start Last Admin Trade Name Freq PRN Reason Stop Dose Admin Acetaminophen 320 mg 10/03/16 07:45 10/04/16 13:52 Tylenol 160mg/5ml Oral Soln PO 320 mg Q4 PRN Administration Fever >100.4 F Albuterol/Ipratropium 3 ml 10/05/16 08:00 10/06/16 07:25 Duoneb 3 Mg/0.5 Mg (3 Ml) Ud IH 3 ml [id number] TONI Administration Calcium Carbonate 600 mg 10/06/16 10:00 10/06/16 09:06 Caltrate PO 600 mg DAILY TONI Administration Folic Acid 1 mg 10/03/16 10:00 10/06/16 09:05 Folic Acid PO 1 mg DAILY TONI Administration Hydrocortisone Sodium Succinate 50 mg 10/05/16 07:30 10/06/16 08:42 Solu-Cortef IVP 50 mg Q6H TONI Administration Dexmedetomidine HCl 400 mcg in 100 mls @ 3.765 mls/hr 10/03/16 09:20 08:45 Precedex 4 Mcg/Ml (100 Ml) IV 0 mcg/kg/hr .Q24H PRN 0 mls/hr Agitation Titration Protocol 0.2 MCG/KG/HR Propofol 1,000 mg in 100 mls @ 2.259 mls/hr 10/04/16 22:03 10/05/16 07:05 Diprivan IV 0 mcg/kg/min .Q24H PRN 0 mls/hr TITRATE PER MD ORDER Titration Protocol 5 MCG/KG/MIN Vasopressin 20 units/ Dextrose 101 mls @ 9.09 mls/hr 10/05/16 07:30 10/06/16 04:38 IV 9.09 mls/hr .[id number] TONI Administration Protocol 0.03 U/MIN NOREPINEPHRINE BIT/0.9 % NACL 4 mg in 250 mls @ 15 mls/hr 10/05/16 07:18 02/21 09:30 Levophed 4 Mg/ 250 Ml Ns Premixed IV 5 mcg/min .[id number] PRN 18.75 mls/hr TITRATE PER MD ORDER Titration Protocol 4 MCG/MIN Fentanyl Citrate 1,000 mcg in 100 mls @ 7.5 mls/hr 10/05/16 07:39 10/06/16 09 :35 Fentanyl Citrate/Sodium Chloride 1 Mg/100 Ml IV 20 mcg/hr .[id number] PRN 2 mls/hr TITRATE PER MD ORDER Administration Protocol 75 MCG/HR Meropenem 500 mg/ Sodium 100 mls @ 100 mls/hr 10/06/16 14:00 Chloride IVPB 10/15/16 14:01 Q8 TONI Protocol Lorazepam 2 mg 10/02/16 21:28 10/04/16 05:36 Ativan IVP 2 mg Q2H PRN Administration Agitation Protocol Pantoprazole Sodium 40 mg 10/03/16 10:00 10/06/16 09:03 Protonix Inj IVP 40 mg DAILY TONI Administration Potassium Phos/Sodium Phos 1 pkt 10/03/16 17:30 10/05/16 17:36 Neutra-Phos PO 1 pkt TID TONI Administration Rifaximin 550 mg 10/05/16 10:00 10/06/16 09:05 Xifaxan PO 550 mg BID TONI Administration Protocol Thiamine HCl 100 mg 10/03/16 10:00 10/06/16 09:06 Vitamin B1 Tab PO 100 mg DAILY TONI Administration Vancomycin HCl 125 mg 10/03/16 11:00 10/06/16 11:38 Vancocin 25 Mg/Ml (Oral Use) PO 125 mg Q6H TONI Administration Protocol Vitamin A 1 ea 10/03/16 10:00 10/06/16 11:15 Vitamin A & D Oint Ud Foilpak TOP 1 ea DAILY TONI Administration Vitamin B Complex/Vit C/Folic Acid 1 tab 10/03/16 08:00 10/06/16 08:42 Nephro-Mariann PO 1 tab 0800 [facility] Administration - Patient Studies Lab Studies: Microbiology Studies 10/05/16 08:30 Gram Stain - Final Sputum Sputum Culture - Preliminary Yeast Species 10/05/16 08:23 Gram Stain - Final Peritoneal Fluid Body Fluid Culture - Preliminary NO GROWTH AFTER 24 HOURS 10/02/16 23:55 Blood Culture - Preliminary Blood NO GROWTH AFTER 3 DAYS 10/02/16 23:35 Blood Culture - Preliminary Blood NO GROWTH AFTER 3 DAYS 10/04/16 18:18 C. difficile Antigen & Toxin A,B (M - Final Stool 10/04/16 13:40 Urine Culture - Final Urine,Catheterized No Growth (<1,000 CFU/ML) Lab Studies 10/06/16 10/06/16 10/06/16 Range/Units 12:10 12:00 12:00 WBC 4.4 L D (4.5-11.0) 10^3/ul RBC 2.71 L (3.5-6.1) 10^6/uL Hgb 8.8 L (14.0-18.0) g/dL Hct 26.4 L (42.0-52.0) % MCV 97.4 (80.0-105.0) fl MCH 32.5 (25.0-35.0) pg MCHC 33.3 (31.0-37.0) g/dl RDW 16.6 H (11.5-14.5) % Plt Count 40 L* (120.0-450.0) 10^3/uL Manual Plt Count 50 L* (120-450) K/mm3 MPV 12.8 H (7.0-11.0) fl Gran % 67.1 (50.0-68.0) % Lymph % (Auto) 29.2 (22.0-35.0) % [place] % (Auto) 3.0 (1.0-6.0) % Eos % (Auto) 0.2 L (1.5-5.0) % Baso % (Auto) 0.5 (0.0-3.0) % Gran # 2.94 (1.4-6.5) Lymph # 1.3 (1.2-3.4) [place] # 0.1 (0.1-0.6) Eos # 0.0 (0.0-0.7) Baso # 0.02 (0.0-2.0) K/mm3 Neutrophils % (Manual) (50.0-70.0) % Band Neutrophils % (0-2) % Lymphocytes % (Manual) (22.0-35.0) % Monocytes % (Manual) (1.0-6.0) % Platelet Evaluation (NORMAL) Hypochromasia Haptoglobin (43-212) mg/dL PT (9.9-11.8) Seconds INR (0.93-1.08) APTT (23.7-30.8) Seconds pCO2 52 H (35-45) mm/Hg pO2 119.0 H (80-100) mm/Hg HCO3 24.4 (21-28) mmol/L ABG pH 7.28 L (7.35-7.45) ABG Total CO2 26.0 (22-28) mmol.L ABG O2 Saturation 100.0 H (95-98) % ABG O2 Content (15-23) ML/dl ABG Base Excess -2.5 L (-2.0-3.0) mmol/L ABG Hemoglobin (11.7-17.4) g/dL ABG Carboxyhemoglobin (0.5-1.5) % POC ABG HHb (Measured) (0-5) % ABG Methemoglobin (0.0-3.0) % ABG O2 Capacity (16-24) mL/dl ABG Potassium 3.0 L (3.6-5.2) mmol/L VBG pH (7.32-7.43) VBG pCO2 (40-60) VBG HCO3 (21-28) mmol/l VBG Total CO2 (22-28) mmol.L VBG O2 Sat (Calc) (40-65) % VBG Base Excess (0.0-2.0) mmol/L VBG Potassium (3.6-5.2) mmol/L Hgb O2 Saturation (95.0-98.0) % Sodium 145.0 143 (132-148) mmol/L Chloride 111.0 H 109 H (98-107) mmol/L Glucose 154 H (75-110) mg/dl Lactate 1.7 (0.7-2.1) mmol/L Mechanical Rate 26 FiO2 50.0 % Tidal Volume 400 PEEP 10 Potassium 3.2 L (3.6-5.0) mmol/L Carbon Dioxide 24 (21-33) mmol/L Anion Gap 13 (10-20) BUN 25 H (7-21) mg/dL Creatinine 2.0 H (0.5-1.4) mg/dL Est GFR ( Amer) 42 Est GFR (Non-Af Amer) 35 Random Glucose 153 H (70-110) mg/dL Calcium 6.7 L* (8.4-10.5) mg/dL Phosphorus (2.5-4.5) mg/dL Magnesium (1.7-2.2) mg/dL Total Bilirubin (0.2-1.3) mg/dL AST (17-59) U/L ALT (7-56) U/L Alkaline Phosphatase (38-126) U/L Ammonia (9-33) umol/L Total Creatine Kinase 241 H (35-230) U/L CK-MB (CK-2) 3.2 (0.0-3.6) ng/mL CK-MB (CK-2) % 1.3 L (2.5-3.0) % Total Protein (5.8-8.3) g/dL Albumin (3.0-4.8) g/dL Globulin gm/dL Albumin/Globulin Ratio (1.1-1.8) Arterial Blood Potassium 3.0 L (3.6-5.2) mmol/L Venous Blood Potassium (3.6-5.2) mmol/L Urine Color (YELLOW) Urine Appearance (CLEAR) Urine pH (4.7-8.0) Ur Specific [place] (1.005-1.035) Urine Protein (<30 mg/dL) mg/dL Urine Glucose (UA) (NEGATIVE) mg/dL Urine Ketones (NEGATIVE) mg/dL Urine Blood (NEGATIVE) Urine Nitrate (NEGATIVE) Urine Bilirubin (NEGATIVE) Urine Urobilinogen (<1 E.U./dL) E.U./dL Ur Leukocyte Esterase (NEGATIVE) Anthony/uL Urine RBC (0-2) /hpf Urine WBC (0-6) /hpf Ur Epithelial Cells (0-5) /hpf Urine Bacteria (NEG) Ur Random Creatinine mg/dL Ur Random Sodium meq/L Stool Occult Blood (NEGATIVE) Vancomycin Trough (5.0-10.0) ug/mL Blood Type Antibody Screen Crossmatch BBK History Checked 10/06/16 10/06/16 10/06/16 Range/Units 09:00 08:05 08:05 WBC (4.5-11.0) 10^3/ul RBC (3.5-6.1) 10^6/uL Hgb (14.0-18.0) g/dL Hct (42.0-52.0) % MCV (80.0-105.0) fl MCH (25.0-35.0) pg MCHC (31.0-37.0) g/dl RDW (11.5-14.5) % Plt Count (120.0-450.0) 10^3/uL Manual Plt Count (120-450) K/mm3 MPV (7.0-11.0) fl Gran % (50.0-68.0) % Lymph % (Auto) (22.0-35.0) % [place] % (Auto) (1.0-6.0) % Eos % (Auto) (1.5-5.0) % Baso % (Auto) (0.0-3.0) % Gran # (1.4-6.5) Lymph # (1.2-3.4) [place] # (0.1-0.6) Eos # (0.0-0.7) Baso # (0.0-2.0) K/mm3 Neutrophils % (Manual) (50.0-70.0) % Band Neutrophils % (0-2) % Lymphocytes % (Manual) (22.0-35.0) % Monocytes % (Manual) (1.0-6.0) % Platelet Evaluation (NORMAL) Hypochromasia Haptoglobin (43-212) mg/dL PT (9.9-11.8) Seconds INR (0.93-1.08) APTT (23.7-30.8) Seconds pCO2 (35-45) mm/Hg pO2 (80-100) mm/Hg HCO3 (21-28) mmol/L ABG pH (7.35-7.45) ABG Total CO2 (22-28) mmol.L ABG O2 Saturation (95-98) % ABG O2 Content (15-23) ML/dl ABG Base Excess (-2.0-3.0) mmol/L ABG Hemoglobin (11.7-17.4) g/dL ABG Carboxyhemoglobin (0.5-1.5) % POC ABG HHb (Measured) (0-5) % ABG Methemoglobin (0.0-3.0) % ABG O2 Capacity (16-24) mL/dl ABG Potassium (3.6-5.2) mmol/L VBG pH (7.32-7.43) VBG pCO2 (40-60) VBG HCO3 (21-28) mmol/l VBG Total CO2 (22-28) mmol.L VBG O2 Sat (Calc) (40-65) % VBG Base Excess (0.0-2.0) mmol/L VBG Potassium (3.6-5.2) mmol/L Hgb O2 Saturation (95.0-98.0) % Sodium (132-148) mmol/L Chloride (98-107) mmol/L Glucose (75-110) mg/dl Lactate (0.7-2.1) mmol/L Mechanical Rate FiO2 % Tidal Volume PEEP Potassium (3.6-5.0) mmol/L Carbon Dioxide (21-33) mmol/L Anion Gap (10-20) BUN (7-21) mg/dL Creatinine (0.5-1.4) mg/dL Est GFR ( Amer) Est GFR (Non-Af Amer) Random Glucose (70-110) mg/dL Calcium (8.4-10.5) mg/dL Phosphorus (2.5-4.5) mg/dL Magnesium (1.7-2.2) mg/dL Total Bilirubin (0.2-1.3) mg/dL AST (17-59) U/L ALT (7-56) U/L Alkaline Phosphatase (38-126) U/L Ammonia (9-33) umol/L Total Creatine Kinase (35-230) U/L CK-MB (CK-2) (0.0-3.6) ng/mL CK-MB (CK-2) % (2.5-3.0) % Total Protein (5.8-8.3) g/dL Albumin (3.0-4.8) g/dL Globulin gm/dL Albumin/Globulin Ratio (1.1-1.8) Arterial Blood Potassium (3.6-5.2) mmol/L Venous Blood Potassium (3.6-5.2) mmol/L Urine Color Yellow (YELLOW) Urine Appearance Cloudy (CLEAR) Urine pH 5.0 (4.7-8.0) Ur Specific [place] >= 1.030 (1.005-1.035) Urine Protein >=300 H (<30 mg/dL) mg/dL Urine Glucose (UA) Negative (NEGATIVE) mg/dL Urine Ketones 15 H (NEGATIVE) mg/dL Urine Blood Large H (NEGATIVE) Urine Nitrate Positive H (NEGATIVE) Urine Bilirubin Moderate H (NEGATIVE) Urine Urobilinogen 1.0 H (<1 E.U./dL) E.U./dL Ur Leukocyte Esterase Trace H (NEGATIVE) Anthony/uL Urine RBC Tntc (0-2) /hpf Urine WBC 5 - 10 (0-6) /hpf Ur Epithelial Cells 4 - 5 (0-5) /hpf Urine Bacteria Mod (NEG) Ur Random Creatinine 210 mg/dL Ur Random Sodium 37 meq/L Stool Occult Blood (NEGATIVE) Vancomycin Trough 12.6 H (5.0-10.0) ug/mL Blood Type Antibody Screen Crossmatch BBK History Checked 10/06/16 10/06/16 10/06/16 Range/Units 07:20 05:30 05:01 WBC (4.5-11.0) 10^3/ul RBC (3.5-6.1) 10^6/uL Hgb (14.0-18.0) g/dL Hct (42.0-52.0) % MCV (80.0-105.0) fl MCH (25.0-35.0) pg MCHC (31.0-37.0) g/dl RDW (11.5-14.5) % Plt Count (120.0-450.0) 10^3/uL Manual Plt Count (120-450) K/mm3 MPV (7.0-11.0) fl Gran % (50.0-68.0) % Lymph % (Auto) (22.0-35.0) % [place] % (Auto) (1.0-6.0) % Eos % (Auto) (1.5-5.0) % Baso % (Auto) (0.0-3.0) % Gran # (1.4-6.5) Lymph # (1.2-3.4) [place] # (0.1-0.6) Eos # (0.0-0.7) Baso # (0.0-2.0) K/mm3 Neutrophils % (Manual) (50.0-70.0) % Band Neutrophils % (0-2) % Lymphocytes % (Manual) (22.0-35.0) % Monocytes % (Manual) (1.0-6.0) % Platelet Evaluation (NORMAL) Hypochromasia Haptoglobin (43-212) mg/dL PT (9.9-11.8) Seconds INR (0.93-1.08) APTT (23.7-30.8) Seconds pCO2 55 H (35-45) mm/Hg pO2 140.0 H 92 H (80-100) mm/Hg HCO3 24.1 (21-28) mmol/L ABG pH 7.25 L (7.35-7.45) ABG Total CO2 25.8 (22-28) mmol.L ABG O2 Saturation 100.6 H (95-98) % ABG O2 Content 13.4 L (15-23) ML/dl ABG Base Excess -3.4 L (-2.0-3.0) mmol/L ABG Hemoglobin 9.5 L (11.7-17.4) g/dL ABG Carboxyhemoglobin 2.0 H (0.5-1.5) % POC ABG HHb (Measured) -0.6 L (0-5) % ABG Methemoglobin 0.8 (0.0-3.0) % ABG O2 Capacity 13.3 L (16-24) mL/dl ABG Potassium (3.6-5.2) mmol/L VBG pH 7.20 L (7.32-7.43) VBG pCO2 66.0 H* (40-60) VBG HCO3 25.8 (21-28) mmol/l VBG Total CO2 27.8 (22-28) mmol.L VBG O2 Sat (Calc) 99.2 H (40-65) % VBG Base Excess -3.6 L (0.0-2.0) mmol/L VBG Potassium 3.1 L (3.6-5.2) mmol/L Hgb O2 Saturation 97.8 (95.0-98.0) % Sodium 143.0 (132-148) mmol/L Chloride 109.0 H (98-107) mmol/L Glucose 166 H (75-110) mg/dl Lactate 1.8 (0.7-2.1) mmol/L Mechanical Rate FiO2 60.0 21.0 % Tidal Volume PEEP Potassium (3.6-5.0) mmol/L Carbon Dioxide (21-33) mmol/L Anion Gap (10-20) BUN (7-21) mg/dL Creatinine (0.5-1.4) mg/dL Est GFR ( Amer) Est GFR (Non-Af Amer) Random Glucose (70-110) mg/dL Calcium (8.4-10.5) mg/dL Phosphorus (2.5-4.5) mg/dL Magnesium (1.7-2.2) mg/dL Total Bilirubin (0.2-1.3) mg/dL AST (17-59) U/L ALT (7-56) U/L Alkaline Phosphatase (38-126) U/L Ammonia (9-33) umol/L Total Creatine Kinase (35-230) U/L CK-MB (CK-2) (0.0-3.6) ng/mL CK-MB (CK-2) % (2.5-3.0) % Total Protein (5.8-8.3) g/dL Albumin (3.0-4.8) g/dL Globulin gm/dL Albumin/Globulin Ratio (1.1-1.8) Arterial Blood Potassium (3.6-5.2) mmol/L Venous Blood Potassium 3.1 L (3.6-5.2) mmol/L Urine Color (YELLOW) Urine Appearance (CLEAR) Urine pH (4.7-8.0) Ur Specific [place] (1.005-1.035) Urine Protein (<30 mg/dL) mg/dL Urine Glucose (UA) (NEGATIVE) mg/dL Urine Ketones (NEGATIVE) mg/dL Urine Blood (NEGATIVE) Urine Nitrate (NEGATIVE) Urine Bilirubin (NEGATIVE) Urine Urobilinogen (<1 E.U./dL) E.U./dL Ur Leukocyte Esterase (NEGATIVE) Anthony/uL Urine RBC (0-2) /hpf Urine WBC (0-6) /hpf Ur Epithelial Cells (0-5) /hpf Urine Bacteria (NEG) Ur Random Creatinine mg/dL Ur Random Sodium 43 meq/L Stool Occult Blood (NEGATIVE) Vancomycin Trough (5.0-10.0) ug/mL Blood Type Antibody Screen Crossmatch BBK History Checked 10/06/16 10/06/16 10/06/16 Range/Units 05:00 05:00 05:00 WBC (4.5-11.0) 10^3/ul RBC (3.5-6.1) 10^6/uL Hgb (14.0-18.0) g/dL Hct (42.0-52.0) % MCV (80.0-105.0) fl MCH (25.0-35.0) pg MCHC (31.0-37.0) g/dl RDW (11.5-14.5) % Plt Count (120.0-450.0) 10^3/uL Manual Plt Count (120-450) K/mm3 MPV (7.0-11.0) fl Gran % (50.0-68.0) % Lymph % (Auto) (22.0-35.0) % [place] % (Auto) (1.0-6.0) % Eos % (Auto) (1.5-5.0) % Baso % (Auto) (0.0-3.0) % Gran # (1.4-6.5) Lymph # (1.2-3.4) [place] # (0.1-0.6) Eos # (0.0-0.7) Baso # (0.0-2.0) K/mm3 Neutrophils % (Manual) (50.0-70.0) % Band Neutrophils % (0-2) % Lymphocytes % (Manual) (22.0-35.0) % Monocytes % (Manual) (1.0-6.0) % Platelet Evaluation (NORMAL) Hypochromasia Haptoglobin (43-212) mg/dL PT 16.7 H (9.9-11.8) Seconds INR 1.55 H (0.93-1.08) APTT 39.3 H (23.7-30.8) Seconds pCO2 (35-45) mm/Hg pO2 (80-100) mm/Hg HCO3 (21-28) mmol/L ABG pH (7.35-7.45) ABG Total CO2 (22-28) mmol.L ABG O2 Saturation (95-98) % ABG O2 Content (15-23) ML/dl ABG Base Excess (-2.0-3.0) mmol/L ABG Hemoglobin (11.7-17.4) g/dL ABG Carboxyhemoglobin (0.5-1.5) % POC ABG HHb (Measured) (0-5) % ABG Methemoglobin (0.0-3.0) % ABG O2 Capacity (16-24) mL/dl ABG Potassium (3.6-5.2) mmol/L VBG pH (7.32-7.43) VBG pCO2 (40-60) VBG HCO3 (21-28) mmol/l VBG Total CO2 (22-28) mmol.L VBG O2 Sat (Calc) (40-65) % VBG Base Excess (0.0-2.0) mmol/L VBG Potassium (3.6-5.2) mmol/L Hgb O2 Saturation (95.0-98.0) % Sodium 145 (132-148) mmol/L Chloride 108 H (98-107) mmol/L Glucose (75-110) mg/dl Lactate (0.7-2.1) mmol/L Mechanical Rate FiO2 % Tidal Volume PEEP Potassium 3.2 L (3.6-5.0) mmol/L Carbon Dioxide 24 (21-33) mmol/L Anion Gap 16 (10-20) BUN 24 H (7-21) mg/dL Creatinine 1.9 H (0.5-1.4) mg/dL Est GFR ( Amer) 45 Est GFR (Non-Af Amer) 37 Random Glucose 160 H (70-110) mg/dL Calcium 5.9 L* (8.4-10.5) mg/dL Phosphorus 5.4 H (2.5-4.5) mg/dL Magnesium 1.7 (1.7-2.2) mg/dL Total Bilirubin 3.3 H (0.2-1.3) mg/dL AST 164 H (17-59) U/L ALT 70 H (7-56) U/L Alkaline Phosphatase 42 (38-126) U/L Ammonia 66 H (9-33) umol/L Total Creatine Kinase (35-230) U/L CK-MB (CK-2) (0.0-3.6) ng/mL CK-MB (CK-2) % (2.5-3.0) % Total Protein 4.9 L (5.8-8.3) g/dL Albumin 2.9 L (3.0-4.8) g/dL Globulin 2.0 gm/dL Albumin/Globulin Ratio 1.5 (1.1-1.8) Arterial Blood Potassium (3.6-5.2) mmol/L Venous Blood Potassium (3.6-5.2) mmol/L Urine Color (YELLOW) Urine Appearance (CLEAR) Urine pH (4.7-8.0) Ur Specific [place] (1.005-1.035) Urine Protein (<30 mg/dL) mg/dL Urine Glucose (UA) (NEGATIVE) mg/dL Urine Ketones (NEGATIVE) mg/dL Urine Blood (NEGATIVE) Urine Nitrate (NEGATIVE) Urine Bilirubin (NEGATIVE) Urine Urobilinogen (<1 E.U./dL) E.U./dL Ur Leukocyte Esterase (NEGATIVE) Anthony/uL Urine RBC (0-2) /hpf Urine WBC (0-6) /hpf Ur Epithelial Cells (0-5) /hpf Urine Bacteria (NEG) Ur Random Creatinine mg/dL Ur Random Sodium meq/L Stool Occult Blood (NEGATIVE) Vancomycin Trough (5.0-10.0) ug/mL Blood Type Antibody Screen Crossmatch BBK History Checked 10/06/16 10/06/16 10/06/16 Range/Units 05:00 02:01 01:11 WBC 6.3 (4.5-11.0) 10^3/ul RBC 2.96 L (3.5-6.1) 10^6/uL Hgb 9.8 L D (14.0-18.0) g/dL Hct 29.0 L (42.0-52.0) % MCV 98.0 (80.0-105.0) fl MCH 33.1 (25.0-35.0) pg MCHC 33.8 (31.0-37.0) g/dl RDW 16.6 H (11.5-14.5) % Plt Count 43 L* (120.0-450.0) 10^3/uL Manual Plt Count (120-450) K/mm3 MPV 12.3 H (7.0-11.0) fl Gran % 70.2 H (50.0-68.0) % Lymph % (Auto) 26.4 (22.0-35.0) % [place] % (Auto) 3.2 (1.0-6.0) % Eos % (Auto) 0.0 L (1.5-5.0) % Baso % (Auto) 0.2 (0.0-3.0) % Gran # 4.42 (1.4-6.5) Lymph # 1.7 (1.2-3.4) [place] # 0.2 (0.1-0.6) Eos # 0.0 (0.0-0.7) Baso # 0.01 (0.0-2.0) K/mm3 Neutrophils % (Manual) (50.0-70.0) % Band Neutrophils % (0-2) % Lymphocytes % (Manual) (22.0-35.0) % Monocytes % (Manual) (1.0-6.0) % Platelet Evaluation (NORMAL) Hypochromasia Haptoglobin (43-212) mg/dL PT (9.9-11.8) Seconds INR (0.93-1.08) APTT (23.7-30.8) Seconds pCO2 57 H (35-45) mm/Hg pO2 125.0 H (80-100) mm/Hg HCO3 23.9 (21-28) mmol/L ABG pH 7.23 L (7.35-7.45) ABG Total CO2 25.6 (22-28) mmol.L ABG O2 Saturation 100.3 H (95-98) % ABG O2 Content (15-23) ML/dl ABG Base Excess -3.8 L (-2.0-3.0) mmol/L ABG Hemoglobin (11.7-17.4) g/dL ABG Carboxyhemoglobin (0.5-1.5) % POC ABG HHb (Measured) (0-5) % ABG Methemoglobin (0.0-3.0) % ABG O2 Capacity (16-24) mL/dl ABG Potassium 3.2 L (3.6-5.2) mmol/L VBG pH (7.32-7.43) VBG pCO2 (40-60) VBG HCO3 (21-28) mmol/l VBG Total CO2 (22-28) mmol.L VBG O2 Sat (Calc) (40-65) % VBG Base Excess (0.0-2.0) mmol/L VBG Potassium (3.6-5.2) mmol/L Hgb O2 Saturation (95.0-98.0) % Sodium 143.0 (132-148) mmol/L Chloride 111.0 H (98-107) mmol/L Glucose 174 H (75-110) mg/dl Lactate 2.0 (0.7-2.1) mmol/L Mechanical Rate 30 FiO2 60.0 % Tidal Volume 350 PEEP 10 Potassium (3.6-5.0) mmol/L Carbon Dioxide (21-33) mmol/L Anion Gap (10-20) BUN (7-21) mg/dL Creatinine (0.5-1.4) mg/dL Est GFR ( Amer) Est GFR (Non-Af Amer) Random Glucose (70-110) mg/dL Calcium (8.4-10.5) mg/dL Phosphorus (2.5-4.5) mg/dL Magnesium (1.7-2.2) mg/dL Total Bilirubin (0.2-1.3) mg/dL AST (17-59) U/L ALT (7-56) U/L Alkaline Phosphatase (38-126) U/L Ammonia (9-33) umol/L Total Creatine Kinase (35-230) U/L CK-MB (CK-2) (0.0-3.6) ng/mL CK-MB (CK-2) % (2.5-3.0) % Total Protein (5.8-8.3) g/dL Albumin (3.0-4.8) g/dL Globulin gm/dL Albumin/Globulin Ratio (1.1-1.8) Arterial Blood Potassium 3.2 L (3.6-5.2) mmol/L Venous Blood Potassium (3.6-5.2) mmol/L Urine Color (YELLOW) Urine Appearance (CLEAR) Urine pH (4.7-8.0) Ur Specific [place] (1.005-1.035) Urine Protein (<30 mg/dL) mg/dL Urine Glucose (UA) (NEGATIVE) mg/dL Urine Ketones (NEGATIVE) mg/dL Urine Blood (NEGATIVE) Urine Nitrate (NEGATIVE) Urine Bilirubin (NEGATIVE) Urine Urobilinogen (<1 E.U./dL) E.U./dL Ur Leukocyte Esterase (NEGATIVE) Anthony/uL Urine RBC (0-2) /hpf Urine WBC (0-6) /hpf Ur Epithelial Cells (0-5) /hpf Urine Bacteria (NEG) Ur Random Creatinine 210 mg/dL Ur Random Sodium meq/L Stool Occult Blood (NEGATIVE) Vancomycin Trough (5.0-10.0) ug/mL Blood Type Antibody Screen Crossmatch BBK History Checked 10/05/16 10/05/16 10/05/16 Range/Units 21:16 18:20 17:00 WBC (4.5-11.0) 10^3/ul RBC (3.5-6.1) 10^6/uL Hgb (14.0-18.0) g/dL Hct (42.0-52.0) % MCV (80.0-105.0) fl MCH (25.0-35.0) pg MCHC (31.0-37.0) g/dl RDW (11.5-14.5) % Plt Count (120.0-450.0) 10^3/uL Manual Plt Count (120-450) K/mm3 MPV (7.0-11.0) fl Gran % (50.0-68.0) % Lymph % (Auto) (22.0-35.0) % [place] % (Auto) (1.0-6.0) % Eos % (Auto) (1.5-5.0) % Baso % (Auto) (0.0-3.0) % Gran # (1.4-6.5) Lymph # (1.2-3.4) [place] # (0.1-0.6) Eos # (0.0-0.7) Baso # (0.0-2.0) K/mm3 Neutrophils % (Manual) (50.0-70.0) % Band Neutrophils % (0-2) % Lymphocytes % (Manual) (22.0-35.0) % Monocytes % (Manual) (1.0-6.0) % Platelet Evaluation (NORMAL) Hypochromasia Haptoglobin (43-212) mg/dL PT (9.9-11.8) Seconds INR (0.93-1.08) APTT (23.7-30.8) Seconds pCO2 (35-45) mm/Hg pO2 (80-100) mm/Hg HCO3 (21-28) mmol/L ABG pH (7.35-7.45) ABG Total CO2 (22-28) mmol.L ABG O2 Saturation (95-98) % ABG O2 Content (15-23) ML/dl ABG Base Excess (-2.0-3.0) mmol/L ABG Hemoglobin (11.7-17.4) g/dL ABG Carboxyhemoglobin (0.5-1.5) % POC ABG HHb (Measured) (0-5) % ABG Methemoglobin (0.0-3.0) % ABG O2 Capacity (16-24) mL/dl ABG Potassium (3.6-5.2) mmol/L VBG pH (7.32-7.43) VBG pCO2 (40-60) VBG HCO3 (21-28) mmol/l VBG Total CO2 (22-28) mmol.L VBG O2 Sat (Calc) (40-65) % VBG Base Excess (0.0-2.0) mmol/L VBG Potassium (3.6-5.2) mmol/L Hgb O2 Saturation (95.0-98.0) % Sodium (132-148) mmol/L Chloride (98-107) mmol/L Glucose (75-110) mg/dl Lactate (0.7-2.1) mmol/L Mechanical Rate FiO2 % Tidal Volume PEEP Potassium (3.6-5.0) mmol/L Carbon Dioxide (21-33) mmol/L Anion Gap (10-20) BUN (7-21) mg/dL Creatinine (0.5-1.4) mg/dL Est GFR ( Amer) Est GFR (Non-Af Amer) Random Glucose (70-110) mg/dL Calcium (8.4-10.5) mg/dL Phosphorus (2.5-4.5) mg/dL Magnesium (1.7-2.2) mg/dL Total Bilirubin (0.2-1.3) mg/dL AST (17-59) U/L ALT (7-56) U/L Alkaline Phosphatase (38-126) U/L Ammonia 59 H (9-33) umol/L Total Creatine Kinase (35-230) U/L CK-MB (CK-2) (0.0-3.6) ng/mL CK-MB (CK-2) % (2.5-3.0) % Total Protein (5.8-8.3) g/dL Albumin (3.0-4.8) g/dL Globulin gm/dL Albumin/Globulin Ratio (1.1-1.8) Arterial Blood Potassium (3.6-5.2) mmol/L Venous Blood Potassium (3.6-5.2) mmol/L Urine Color (YELLOW) Urine Appearance (CLEAR) Urine pH (4.7-8.0) Ur Specific [place] (1.005-1.035) Urine Protein (<30 mg/dL) mg/dL Urine Glucose (UA) (NEGATIVE) mg/dL Urine Ketones (NEGATIVE) mg/dL Urine Blood (NEGATIVE) Urine Nitrate (NEGATIVE) Urine Bilirubin (NEGATIVE) Urine Urobilinogen (<1 E.U./dL) E.U./dL Ur Leukocyte Esterase (NEGATIVE) Anthony/uL Urine RBC (0-2) /hpf Urine WBC (0-6) /hpf Ur Epithelial Cells (0-5) /hpf Urine Bacteria (NEG) Ur Random Creatinine mg/dL Ur Random Sodium meq/L Stool Occult Blood Positive H (NEGATIVE) Vancomycin Trough (5.0-10.0) ug/mL Blood Type O POSITIVE Antibody Screen Negative Crossmatch See Detail BBK History Checked Patient has bt 10/05/16 10/05/16 10/05/16 Range/Units 17:00 17:00 16:50 WBC 5.3 (4.5-11.0) 10^3/ul RBC 2.11 L (3.5-6.1) 10^6/uL Hgb 6.9 L* (14.0-18.0) g/dL Hct 21.1 L (42.0-52.0) % MCV 100.0 (80.0-105.0) fl MCH 32.7 (25.0-35.0) pg MCHC 32.7 (31.0-37.0) g/dl RDW 16.8 H (11.5-14.5) % Plt Count 110 L (120.0-450.0) 10^3/uL Manual Plt Count (120-450) K/mm3 MPV (7.0-11.0) fl Gran % 68.3 H (50.0-68.0) % Lymph % (Auto) 27.7 (22.0-35.0) % [place] % (Auto) 3.6 (1.0-6.0) % Eos % (Auto) 0.0 L (1.5-5.0) % Baso % (Auto) 0.4 (0.0-3.0) % Gran # 3.62 (1.4-6.5) Lymph # 1.5 (1.2-3.4) [place] # 0.2 (0.1-0.6) Eos # 0.0 (0.0-0.7) Baso # 0.02 (0.0-2.0) K/mm3 Neutrophils % (Manual) (50.0-70.0) % Band Neutrophils % (0-2) % Lymphocytes % (Manual) (22.0-35.0) % Monocytes % (Manual) (1.0-6.0) % Platelet Evaluation (NORMAL) Hypochromasia Haptoglobin (43-212) mg/dL PT 19.5 H (9.9-11.8) Seconds INR 1.81 H (0.93-1.08) APTT 45.4 H (23.7-30.8) Seconds pCO2 (35-45) mm/Hg pO2 (80-100) mm/Hg HCO3 (21-28) mmol/L ABG pH (7.35-7.45) ABG Total CO2 (22-28) mmol.L ABG O2 Saturation (95-98) % ABG O2 Content (15-23) ML/dl ABG Base Excess (-2.0-3.0) mmol/L ABG Hemoglobin (11.7-17.4) g/dL ABG Carboxyhemoglobin (0.5-1.5) % POC ABG HHb (Measured) (0-5) % ABG Methemoglobin (0.0-3.0) % ABG O2 Capacity (16-24) mL/dl ABG Potassium (3.6-5.2) mmol/L VBG pH (7.32-7.43) VBG pCO2 (40-60) VBG HCO3 (21-28) mmol/l VBG Total CO2 (22-28) mmol.L VBG O2 Sat (Calc) (40-65) % VBG Base Excess (0.0-2.0) mmol/L VBG Potassium (3.6-5.2) mmol/L Hgb O2 Saturation (95.0-98.0) % Sodium 143 (132-148) mmol/L Chloride 106 (98-107) mmol/L Glucose (75-110) mg/dl Lactate (0.7-2.1) mmol/L Mechanical Rate FiO2 % Tidal Volume PEEP Potassium 3.3 L (3.6-5.0) mmol/L Carbon Dioxide 24 (21-33) mmol/L Anion Gap 16 (10-20) BUN 20 (7-21) mg/dL Creatinine 1.7 H (0.5-1.4) mg/dL Est GFR ( Amer) 51 Est GFR (Non-Af Amer) 42 Random Glucose 195 H (70-110) mg/dL Calcium 5.5 L* (8.4-10.5) mg/dL Phosphorus 5.8 H (2.5-4.5) mg/dL Magnesium 1.3 L (1.7-2.2) mg/dL Total Bilirubin 3.3 H (0.2-1.3) mg/dL AST 167 H (17-59) U/L ALT 68 H (7-56) U/L Alkaline Phosphatase 34 L (38-126) U/L Ammonia (9-33) umol/L Total Creatine Kinase (35-230) U/L CK-MB (CK-2) (0.0-3.6) ng/mL CK-MB (CK-2) % (2.5-3.0) % Total Protein 5.0 L (5.8-8.3) g/dL Albumin 2.9 L (3.0-4.8) g/dL Globulin 2.0 gm/dL Albumin/Globulin Ratio 1.5 (1.1-1.8) Arterial Blood Potassium (3.6-5.2) mmol/L Venous Blood Potassium (3.6-5.2) mmol/L Urine Color (YELLOW) Urine Appearance (CLEAR) Urine pH (4.7-8.0) Ur Specific [place] (1.005-1.035) Urine Protein (<30 mg/dL) mg/dL Urine Glucose (UA) (NEGATIVE) mg/dL Urine Ketones (NEGATIVE) mg/dL Urine Blood (NEGATIVE) Urine Nitrate (NEGATIVE) Urine Bilirubin (NEGATIVE) Urine Urobilinogen (<1 E.U./dL) E.U./dL Ur Leukocyte Esterase (NEGATIVE) Anthony/uL Urine RBC (0-2) /hpf Urine WBC (0-6) /hpf Ur Epithelial Cells (0-5) /hpf Urine Bacteria (NEG) Ur Random Creatinine mg/dL Ur Random Sodium meq/L Stool Occult Blood (NEGATIVE) Vancomycin Trough (5.0-10.0) ug/mL Blood Type Antibody Screen Crossmatch BBK History Checked 10/05/16 10/05/16 10/04/16 Range/Units 16:50 16:25 05:50 WBC 5.0 (4.5-11.0) 10^3/ul RBC 2.10 L (3.5-6.1) 10^6/uL Hgb 6.8 L* D (14.0-18.0) g/dL Hct 21.1 L (42.0-52.0) % MCV 100.5 (80.0-105.0) fl MCH 32.4 (25.0-35.0) pg MCHC 32.2 (31.0-37.0) g/dl RDW 16.3 H (11.5-14.5) % Plt Count 50 L (120.0-450.0) 10^3/uL Manual Plt Count (120-450) K/mm3 MPV 12.5 H (7.0-11.0) fl Gran % 68.1 H (50.0-68.0) % Lymph % (Auto) 28.1 (22.0-35.0) % [place] % (Auto) 3.4 (1.0-6.0) % Eos % (Auto) 0.2 L (1.5-5.0) % Baso % (Auto) 0.2 (0.0-3.0) % Gran # 3.41 (1.4-6.5) Lymph # 1.4 (1.2-3.4) [place] # 0.2 (0.1-0.6) Eos # 0.0 (0.0-0.7) Baso # 0.01 (0.0-2.0) K/mm3 Neutrophils % (Manual) 56 (50.0-70.0) % Band Neutrophils % 17 H* (0-2) % Lymphocytes % (Manual) 23 (22.0-35.0) % Monocytes % (Manual) 4 (1.0-6.0) % Platelet Evaluation Low (NORMAL) Hypochromasia Slight Haptoglobin 54 (43-212) mg/dL PT (9.9-11.8) Seconds INR (0.93-1.08) APTT (23.7-30.8) Seconds pCO2 71 H* (35-45) mm/Hg pO2 176.0 H (80-100) mm/Hg HCO3 27.1 (21-28) mmol/L ABG pH 7.19 L* (7.35-7.45) ABG Total CO2 29.3 H (22-28) mmol.L ABG O2 Saturation 100.8 H (95-98) % ABG O2 Content (15-23) ML/dl ABG Base Excess -1.5 (-2.0-3.0) mmol/L ABG Hemoglobin (11.7-17.4) g/dL ABG Carboxyhemoglobin (0.5-1.5) % POC ABG HHb (Measured) (0-5) % ABG Methemoglobin (0.0-3.0) % ABG O2 Capacity (16-24) mL/dl ABG Potassium 3.3 L (3.6-5.2) mmol/L VBG pH (7.32-7.43) VBG pCO2 (40-60) VBG HCO3 (21-28) mmol/l VBG Total CO2 (22-28) mmol.L VBG O2 Sat (Calc) (40-65) % VBG Base Excess (0.0-2.0) mmol/L VBG Potassium (3.6-5.2) mmol/L Hgb O2 Saturation (95.0-98.0) % Sodium 144.0 (132-148) mmol/L Chloride 114.0 H (98-107) mmol/L Glucose 154 H (75-110) mg/dl Lactate 2.3 H (0.7-2.1) mmol/L Mechanical Rate FiO2 80.0 % Tidal Volume PEEP Potassium (3.6-5.0) mmol/L Carbon Dioxide (21-33) mmol/L Anion Gap (10-20) BUN (7-21) mg/dL Creatinine (0.5-1.4) mg/dL Est GFR ( Amer) Est GFR (Non-Af Amer) Random Glucose (70-110) mg/dL Calcium (8.4-10.5) mg/dL Phosphorus (2.5-4.5) mg/dL Magnesium (1.7-2.2) mg/dL Total Bilirubin (0.2-1.3) mg/dL AST (17-59) U/L ALT (7-56) U/L Alkaline Phosphatase (38-126) U/L Ammonia (9-33) umol/L Total Creatine Kinase (35-230) U/L CK-MB (CK-2) (0.0-3.6) ng/mL CK-MB (CK-2) % (2.5-3.0) % Total Protein (5.8-8.3) g/dL Albumin (3.0-4.8) g/dL Globulin gm/dL Albumin/Globulin Ratio (1.1-1.8) Arterial Blood Potassium 3.3 L (3.6-5.2) mmol/L Venous Blood Potassium (3.6-5.2) mmol/L Urine Color (YELLOW) Urine Appearance (CLEAR) Urine pH (4.7-8.0) Ur Specific [place] (1.005-1.035) Urine Protein (<30 mg/dL) mg/dL Urine Glucose (UA) (NEGATIVE) mg/dL Urine Ketones (NEGATIVE) mg/dL Urine Blood (NEGATIVE) Urine Nitrate (NEGATIVE) Urine Bilirubin (NEGATIVE) Urine Urobilinogen (<1 E.U./dL) E.U./dL Ur Leukocyte Esterase (NEGATIVE) Anthony/uL Urine RBC (0-2) /hpf Urine WBC (0-6) /hpf Ur Epithelial Cells (0-5) /hpf Urine Bacteria (NEG) Ur Random Creatinine mg/dL Ur Random Sodium meq/L Stool Occult Blood (NEGATIVE) Vancomycin Trough (5.0-10.0) ug/mL Blood Type Antibody Screen Crossmatch BBK History Checked Laboratory Results - last 24 hr 10/04/16 10/05/16 10/05/16 05:50 16:25 16:50 WBC 5.0 RBC 2.10 L Hgb 6.8 L* D Hct 21.1 L MCV 100.5 MCH 32.4 MCHC 32.2 RDW 16.3 H Plt Count 50 L Manual Plt Count MPV 12.5 H Gran % 68.1 H Lymph % (Auto) 28.1 [place] % (Auto) 3.4 Eos % (Auto) 0.2 L Baso % (Auto) 0.2 Gran # 3.41 Lymph # 1.4 [place] # 0.2 Eos # 0.0 Baso # 0.01 Neutrophils % (Manual) 56 Band Neutrophils % 17 H* Lymphocytes % (Manual) 23 Monocytes % (Manual) 4 Platelet Evaluation Low Hypochromasia Slight Haptoglobin 54 PT INR APTT pCO2 71 H* pO2 176.0 H HCO3 27.1 ABG pH 7.19 L* ABG Total CO2 29.3 H ABG O2 Saturation 100.8 H ABG O2 Content ABG Base Excess -1.5 ABG Hemoglobin ABG Carboxyhemoglobin POC ABG HHb (Measured) ABG Methemoglobin ABG O2 Capacity ABG Potassium 3.3 L VBG pH VBG pCO2 VBG HCO3 VBG Total CO2 VBG O2 Sat (Calc) VBG Base Excess VBG Potassium Hgb O2 Saturation Sodium 144.0 Chloride 114.0 H Glucose 154 H Lactate 2.3 H Mechanical Rate FiO2 80.0 Tidal Volume PEEP Potassium Carbon Dioxide Anion Gap BUN Creatinine Est GFR ( Amer) Est GFR (Non-Af Amer) Random Glucose Calcium Phosphorus Magnesium Total Bilirubin AST ALT Alkaline Phosphatase Ammonia Total Creatine Kinase CK-MB (CK-2) CK-MB (CK-2) % Total Protein Albumin Globulin Albumin/Globulin Ratio Arterial Blood Potassium 3.3 L Venous Blood Potassium Urine Color Urine Appearance Urine pH Ur Specific [place] Urine Protein Urine Glucose (UA) Urine Ketones Urine Blood Urine Nitrate Urine Bilirubin Urine Urobilinogen Ur Leukocyte Esterase Urine RBC Urine WBC Ur Epithelial Cells Urine Bacteria Ur Random Creatinine Ur Random Sodium Stool Occult Blood Vancomycin Trough Blood Type Antibody Screen Crossmatch BBK History Checked 10/05/16 10/05/16 10/05/16 16:50 17:00 17:00 WBC 5.3 RBC 2.11 L Hgb 6.9 L* Hct 21.1 L MCV 100.0 MCH 32.7 MCHC 32.7 RDW 16.8 H Plt Count 110 L Manual Plt Count MPV Gran % 68.3 H Lymph % (Auto) 27.7 [place] % (Auto) 3.6 Eos % (Auto) 0.0 L Baso % (Auto) 0.4 Gran # 3.62 Lymph # 1.5 [place] # 0.2 Eos # 0.0 Baso # 0.02 Neutrophils % (Manual) Band Neutrophils % Lymphocytes % (Manual) Monocytes % (Manual) Platelet Evaluation Hypochromasia Haptoglobin PT 19.5 H INR 1.81 H APTT 45.4 H pCO2 pO2 HCO3 ABG pH ABG Total CO2 ABG O2 Saturation ABG O2 Content ABG Base Excess ABG Hemoglobin ABG Carboxyhemoglobin POC ABG HHb (Measured) ABG Methemoglobin ABG O2 Capacity ABG Potassium VBG pH VBG pCO2 VBG HCO3 VBG Total CO2 VBG O2 Sat (Calc) VBG Base Excess VBG Potassium Hgb O2 Saturation Sodium 143 Chloride 106 Glucose Lactate Mechanical Rate FiO2 Tidal Volume PEEP Potassium 3.3 L Carbon Dioxide 24 Anion Gap 16 BUN 20 Creatinine 1.7 H Est GFR ( Amer) 51 Est GFR (Non-Af Amer) 42 Random Glucose 195 H Calcium 5.5 L* Phosphorus 5.8 H Magnesium 1.3 L Total Bilirubin 3.3 H AST 167 H ALT 68 H Alkaline Phosphatase 34 L Ammonia Total Creatine Kinase CK-MB (CK-2) CK-MB (CK-2) % Total Protein 5.0 L Albumin 2.9 L Globulin 2.0 Albumin/Globulin Ratio 1.5 Arterial Blood Potassium Venous Blood Potassium Urine Color Urine Appearance Urine pH Ur Specific [place] Urine Protein Urine Glucose (UA) Urine Ketones Urine Blood Urine Nitrate Urine Bilirubin Urine Urobilinogen Ur Leukocyte Esterase Urine RBC Urine WBC Ur Epithelial Cells Urine Bacteria Ur Random Creatinine Ur Random Sodium Stool Occult Blood Vancomycin Trough Blood Type Antibody Screen Crossmatch BBK History Checked 10/05/16 10/05/16 10/05/16 17:00 18:20 21:16 WBC RBC Hgb Hct MCV MCH MCHC RDW Plt Count Manual Plt Count MPV Gran % Lymph % (Auto) [place] % (Auto) Eos % (Auto) Baso % (Auto) Gran # Lymph # [place] # Eos # Baso # Neutrophils % (Manual) Band Neutrophils % Lymphocytes % (Manual) Monocytes % (Manual) Platelet Evaluation Hypochromasia Haptoglobin PT INR APTT pCO2 pO2 HCO3 ABG pH ABG Total CO2 ABG O2 Saturation ABG O2 Content ABG Base Excess ABG Hemoglobin ABG Carboxyhemoglobin POC ABG HHb (Measured) ABG Methemoglobin ABG O2 Capacity ABG Potassium VBG pH VBG pCO2 VBG HCO3 VBG Total CO2 VBG O2 Sat (Calc) VBG Base Excess VBG Potassium Hgb O2 Saturation Sodium Chloride Glucose Lactate Mechanical Rate FiO2 Tidal Volume PEEP Potassium Carbon Dioxide Anion Gap BUN Creatinine Est GFR ( Amer) Est GFR (Non-Af Amer) Random Glucose Calcium Phosphorus Magnesium Total Bilirubin AST ALT Alkaline Phosphatase Ammonia 59 H Total Creatine Kinase CK-MB (CK-2) CK-MB (CK-2) % Total Protein Albumin Globulin Albumin/Globulin Ratio Arterial Blood Potassium Venous Blood Potassium Urine Color Urine Appearance Urine pH Ur Specific [place] Urine Protein Urine Glucose (UA) Urine Ketones Urine Blood Urine Nitrate Urine Bilirubin Urine Urobilinogen Ur Leukocyte Esterase Urine RBC Urine WBC Ur Epithelial Cells Urine Bacteria Ur Random Creatinine Ur Random Sodium Stool Occult Blood Positive H Vancomycin Trough Blood Type O POSITIVE Antibody Screen Negative Crossmatch See Detail BBK History Checked Patient has bt 10/06/16 10/06/16 10/06/16 01:11 02:01 05:00 WBC 6.3 RBC 2.96 L Hgb 9.8 L D Hct 29.0 L MCV 98.0 MCH 33.1 MCHC 33.8 RDW 16.6 H Plt Count 43 L* Manual Plt Count MPV 12.3 H Gran % 70.2 H Lymph % (Auto) 26.4 [place] % (Auto) 3.2 Eos % (Auto) 0.0 L Baso % (Auto) 0.2 Gran # 4.42 Lymph # 1.7 [place] # 0.2 Eos # 0.0 Baso # 0.01 Neutrophils % (Manual) Band Neutrophils % Lymphocytes % (Manual) Monocytes % (Manual) Platelet Evaluation Hypochromasia Haptoglobin PT INR APTT pCO2 57 H pO2 125.0 H HCO3 23.9 ABG pH 7.23 L ABG Total CO2 25.6 ABG O2 Saturation 100.3 H ABG O2 Content ABG Base Excess -3.8 L ABG Hemoglobin ABG Carboxyhemoglobin POC ABG HHb (Measured) ABG Methemoglobin ABG O2 Capacity ABG Potassium 3.2 L VBG pH VBG pCO2 VBG HCO3 VBG Total CO2 VBG O2 Sat (Calc) VBG Base Excess VBG Potassium Hgb O2 Saturation Sodium 143.0 Chloride 111.0 H Glucose 174 H Lactate 2.0 Mechanical Rate 30 FiO2 60.0 Tidal Volume 350 PEEP 10 Potassium Carbon Dioxide Anion Gap BUN Creatinine Est GFR ( Amer) Est GFR (Non-Af Amer) Random Glucose Calcium Phosphorus Magnesium Total Bilirubin AST ALT Alkaline Phosphatase Ammonia Total Creatine Kinase CK-MB (CK-2) CK-MB (CK-2) % Total Protein Albumin Globulin Albumin/Globulin Ratio Arterial Blood Potassium 3.2 L Venous Blood Potassium Urine Color Urine Appearance Urine pH Ur Specific [place] Urine Protein Urine Glucose (UA) Urine Ketones Urine Blood Urine Nitrate Urine Bilirubin Urine Urobilinogen Ur Leukocyte Esterase Urine RBC Urine WBC Ur Epithelial Cells Urine Bacteria Ur Random Creatinine 210 Ur Random Sodium Stool Occult Blood Vancomycin Trough Blood Type Antibody Screen Crossmatch BBK History Checked 10/06/16 10/06/16 10/06/16 05:00 05:00 05:00 WBC RBC Hgb Hct MCV MCH MCHC RDW Plt Count Manual Plt Count MPV Gran % Lymph % (Auto) [place] % (Auto) Eos % (Auto) Baso % (Auto) Gran # Lymph # [place] # Eos # Baso # Neutrophils % (Manual) Band Neutrophils % Lymphocytes % (Manual) Monocytes % (Manual) Platelet Evaluation Hypochromasia Haptoglobin PT 16.7 H INR 1.55 H APTT 39.3 H pCO2 pO2 HCO3 ABG pH ABG Total CO2 ABG O2 Saturation ABG O2 Content ABG Base Excess ABG Hemoglobin ABG Carboxyhemoglobin POC ABG HHb (Measured) ABG Methemoglobin ABG O2 Capacity ABG Potassium VBG pH VBG pCO2 VBG HCO3 VBG Total CO2 VBG O2 Sat (Calc) VBG Base Excess VBG Potassium Hgb O2 Saturation Sodium 145 Chloride 108 H Glucose Lactate Mechanical Rate FiO2 Tidal Volume PEEP Potassium 3.2 L Carbon Dioxide 24 Anion Gap 16 BUN 24 H Creatinine 1.9 H Est GFR ( Amer) 45 Est GFR (Non-Af Amer) 37 Random Glucose 160 H Calcium 5.9 L* Phosphorus 5.4 H Magnesium 1.7 Total Bilirubin 3.3 H AST 164 H ALT 70 H Alkaline Phosphatase 42 Ammonia 66 H Total Creatine Kinase CK-MB (CK-2) CK-MB (CK-2) % Total Protein 4.9 L Albumin 2.9 L Globulin 2.0 Albumin/Globulin Ratio 1.5 Arterial Blood Potassium Venous Blood Potassium Urine Color Urine Appearance Urine pH Ur Specific [place] Urine Protein Urine Glucose (UA) Urine Ketones Urine Blood Urine Nitrate Urine Bilirubin Urine Urobilinogen Ur Leukocyte Esterase Urine RBC Urine WBC Ur Epithelial Cells Urine Bacteria Ur Random Creatinine Ur Random Sodium Stool Occult Blood Vancomycin Trough Blood Type Antibody Screen Crossmatch BBK History Checked 10/06/16 10/06/16 10/06/16 05:01 05:30 07:20 WBC RBC Hgb Hct MCV MCH MCHC RDW Plt Count Manual Plt Count MPV Gran % Lymph % (Auto) [place] % (Auto) Eos % (Auto) Baso % (Auto) Gran # Lymph # [place] # Eos # Baso # Neutrophils % (Manual) Band Neutrophils % Lymphocytes % (Manual) Monocytes % (Manual) Platelet Evaluation Hypochromasia Haptoglobin PT INR APTT pCO2 55 H pO2 92 H 140.0 H HCO3 24.1 ABG pH 7.25 L ABG Total CO2 25.8 ABG O2 Saturation 100.6 H ABG O2 Content 13.4 L ABG Base Excess -3.4 L ABG Hemoglobin 9.5 L ABG Carboxyhemoglobin 2.0 H POC ABG HHb (Measured) -0.6 L ABG Methemoglobin 0.8 ABG O2 Capacity 13.3 L ABG Potassium VBG pH 7.20 L VBG pCO2 66.0 H* VBG HCO3 25.8 VBG Total CO2 27.8 VBG O2 Sat (Calc) 99.2 H VBG Base Excess -3.6 L VBG Potassium 3.1 L Hgb O2 Saturation 97.8 Sodium 143.0 Chloride 109.0 H Glucose 166 H Lactate 1.8 Mechanical Rate FiO2 21.0 60.0 Tidal Volume PEEP Potassium Carbon Dioxide Anion Gap BUN Creatinine Est GFR ( Amer) Est GFR (Non-Af Amer) Random Glucose Calcium Phosphorus Magnesium Total Bilirubin AST ALT Alkaline Phosphatase Ammonia Total Creatine Kinase CK-MB (CK-2) CK-MB (CK-2) % Total Protein Albumin Globulin Albumin/Globulin Ratio Arterial Blood Potassium Venous Blood Potassium 3.1 L Urine Color Urine Appearance Urine pH Ur Specific [place] Urine Protein Urine Glucose (UA) Urine Ketones Urine Blood Urine Nitrate Urine Bilirubin Urine Urobilinogen Ur Leukocyte Esterase Urine RBC Urine WBC Ur Epithelial Cells Urine Bacteria Ur Random Creatinine Ur Random Sodium 43 Stool Occult Blood Vancomycin Trough Blood Type Antibody Screen Crossmatch BBK History Checked 10/06/16 10/06/16 10/06/16 08:05 08:05 09:00 WBC RBC Hgb Hct MCV MCH MCHC RDW Plt Count Manual Plt Count MPV Gran % Lymph % (Auto) [place] % (Auto) Eos % (Auto) Baso % (Auto) Gran # Lymph # [place] # Eos # Baso # Neutrophils % (Manual) Band Neutrophils % Lymphocytes % (Manual) Monocytes % (Manual) Platelet Evaluation Hypochromasia Haptoglobin PT INR APTT pCO2 pO2 HCO3 ABG pH ABG Total CO2 ABG O2 Saturation ABG O2 Content ABG Base Excess ABG Hemoglobin ABG Carboxyhemoglobin POC ABG HHb (Measured) ABG Methemoglobin ABG O2 Capacity ABG Potassium VBG pH VBG pCO2 VBG HCO3 VBG Total CO2 VBG O2 Sat (Calc) VBG Base Excess VBG Potassium Hgb O2 Saturation Sodium Chloride Glucose Lactate Mechanical Rate FiO2 Tidal Volume PEEP Potassium Carbon Dioxide Anion Gap BUN Creatinine Est GFR ( Amer) Est GFR (Non-Af Amer) Random Glucose Calcium Phosphorus Magnesium Total Bilirubin AST ALT Alkaline Phosphatase Ammonia Total Creatine Kinase CK-MB (CK-2) CK-MB (CK-2) % Total Protein Albumin Globulin Albumin/Globulin Ratio Arterial Blood Potassium Venous Blood Potassium Urine Color Yellow Urine Appearance Cloudy Urine pH 5.0 Ur Specific [place] >= 1.030 Urine Protein >=300 H Urine Glucose (UA) Negative Urine Ketones 15 H Urine Blood Large H Urine Nitrate Positive H Urine Bilirubin Moderate H Urine Urobilinogen 1.0 H Ur Leukocyte Esterase Trace H Urine RBC Tntc Urine WBC 5 - 10 Ur Epithelial Cells 4 - 5 Urine Bacteria Mod Ur Random Creatinine 210 Ur Random Sodium 37 Stool Occult Blood Vancomycin Trough 12.6 H Blood Type Antibody Screen Crossmatch BBK History Checked 10/06/16 10/06/16 10/06/16 12:00 12:00 12:10 WBC 4.4 L D RBC 2.71 L Hgb 8.8 L Hct 26.4 L MCV 97.4 MCH 32.5 MCHC 33.3 RDW 16.6 H Plt Count 40 L* Manual Plt Count 50 L* MPV 12.8 H Gran % 67.1 Lymph % (Auto) 29.2 [place] % (Auto) 3.0 Eos % (Auto) 0.2 L Baso % (Auto) 0.5 Gran # 2.94 Lymph # 1.3 [place] # 0.1 Eos # 0.0 Baso # 0.02 Neutrophils % (Manual) Band Neutrophils % Lymphocytes % (Manual) Monocytes % (Manual) Platelet Evaluation Hypochromasia Haptoglobin PT INR APTT pCO2 52 H pO2 119.0 H HCO3 24.4 ABG pH 7.28 L ABG Total CO2 26.0 ABG O2 Saturation 100.0 H ABG O2 Content ABG Base Excess -2.5 L ABG Hemoglobin ABG Carboxyhemoglobin POC ABG HHb (Measured) ABG Methemoglobin ABG O2 Capacity ABG Potassium 3.0 L VBG pH VBG pCO2 VBG HCO3 VBG Total CO2 VBG O2 Sat (Calc) VBG Base Excess VBG Potassium Hgb O2 Saturation Sodium 143 145.0 Chloride 109 H 111.0 H Glucose 154 H Lactate 1.7 Mechanical Rate 26 FiO2 50.0 Tidal Volume 400 PEEP 10 Potassium 3.2 L Carbon Dioxide 24 Anion Gap 13 BUN 25 H Creatinine 2.0 H Est GFR ( Amer) 42 Est GFR (Non-Af Amer) 35 Random Glucose 153 H Calcium 6.7 L* Phosphorus Magnesium Total Bilirubin AST ALT Alkaline Phosphatase Ammonia Total Creatine Kinase 241 H CK-MB (CK-2) 3.2 CK-MB (CK-2) % 1.3 L Total Protein Albumin Globulin Albumin/Globulin Ratio Arterial Blood Potassium 3.0 L Venous Blood Potassium Urine Color Urine Appearance Urine pH Ur Specific [place] Urine Protein Urine Glucose (UA) Urine Ketones Urine Blood Urine Nitrate Urine Bilirubin Urine Urobilinogen Ur Leukocyte Esterase Urine RBC Urine WBC Ur Epithelial Cells Urine Bacteria Ur Random Creatinine Ur Random Sodium Stool Occult Blood Vancomycin Trough Blood Type Antibody Screen Crossmatch BBK History Checked Critical Care Progress Note - Nutrition Nutrition: Nutrition Category Date Time Status NPO Diet [DIET] Diets 10/06/16 Breakfast Ordered Assessment/Plan - Assessment and Plan (Free Text) Plan: Patient seen and examined on rounds with Dr Cerna, agree with note, A/P. Patient remains intubated, sedated on PRVC, with improvement in hypercapnia, remains on vasopressor support, with Levophed/Vasopressin requirements downtrending, HH 6.9given 3u prbc, 1u ffp, with additional 1u FFP, and 1u platelets. No evidence of melena. Pallaitive care consulted. On exam remains intubated, sedated. Abd soft, distended, BS+. Bedside ECHO demonstrates normal EF, no pericardial effusion, IVC 2.3cm. Recommend: Resp: - keep intubated, sedated, pCO2 improving, PRVC 26/400/10/50%, titrate FiO2 down - advance ETT 1cm - Has perihilar opacities, ?fluid vs infiltrate, on broad spectrum abx Infectious: - repeat procalcitonin today - on rboad spectrum abx - ID following - MErrem, Vanco IV, Vanco PO - +Cdiff CV: - pressor requirements decreasing - cont with Levophed, Vasoprresisn, goal MAP>65 - stress dose steroids - ECHO Heme: - HH 6.8 given 3u prbc, FFP, platelets, - repeat afternoon HH - may need repeat CT A/P - cont with PPI - obtain GI eval - keep platelets>50 HH>7 - INR 1.5 today - check peripheral smear Alimentary/GI: - hx of EtOH abuse, Cirrhosis, Hep C - MELD 22 - Rifaxamin - PPI drip - GI eval - may need repeat CT A/P to rule out bleed - +Cdiff colitis, keep NPO for now, cont with Vanco PO Neuro: - intial CT head negative - unclear why had sudden increase of pCO2, unlikely sustained a stroke while in hospital - will attempt sedation vacation, assess neurological status then Line: R PICC L Femo Art Line ETT NGT Vyas DVT ppx GI ppx Full Code Remains in critical condition Critical care time: 35minutes
--- NOTE | 2016-10-06 09:25 | CP.PCM.PN ---
<Justo Torres - Last Filed: 10/06/16 11:56> Subjective - Date & Time of Evaluation Date of Evaluation: 10/06/16 Time of Evaluation: 09:00 - Subjective Subjective: This patient was seen at bedside sedated. The patient remains intubated. Per the nursing, the patient received 3 units of PRBC'S and 1 unit of FFP. The patient also had a run of Vtach and the remainder of the night was uneventful. ROS unattainable due to his current intubation and sedation status. Objective - Vital Signs/Intake and Output Vital Signs (last 24 hours): Temp Pulse Resp BP Pulse Ox 99.3 F 87 32 H 120/73 99 10/06/16 05:55 10/06/16 06:00 10/06/16 05:55 10/06/16 05:55 10/06/16 05:55 Intake and Output: 10/06/16 10/06/16 06:59 18:59 Intake Total 2807 93 Output Total 100 Balance 2707 93 - Medications Medications: Current Medications Acetaminophen (Tylenol 160mg/5ml Oral Soln) 320 mg PO Q4 PRN PRN Reason: Fever >100.4 F Last Admin: 10/04/16 13:52 Dose: 320 mg Albuterol/Ipratropium (Duoneb 3 Mg/0.5 Mg (3 Ml) Ud) 3 ml IH [id number] [facility] Last Admin: 10/06/16 07:25 Dose: 3 ml Calcium Carbonate (Caltrate) 600 mg PO DAILY [facility] Last Admin: 10/06/16 09:06 Dose: 600 mg Folic Acid (Folic Acid) 1 mg PO DAILY [facility] Last Admin: 10/06/16 09:05 Dose: 1 mg Hydrocortisone Sodium Succinate (Solu-Cortef) 50 mg IVP Q6H [facility] Last Admin: 10/06/16 08:42 Dose: 50 mg Dexmedetomidine HCl (Precedex 4 Mcg/Ml (100 Ml)) 400 mcg in 100 mls @ 3.765 mls /hr IV .Q24H PRN; Protocol; 0.2 MCG/KG/HR PRN Reason: Agitation Last Titration: 10/04/16 08:45 Dose: 0 mcg/kg/hr, 0 mls/hr Propofol (Diprivan) 1,000 mg in 100 mls @ 2.259 mls/hr IV .Q24H PRN; Protocol; 5 MCG/KG/MIN PRN Reason: TITRATE PER MD ORDER Last Titration: 10/05/16 07:05 Dose: 0 mcg/kg/min, 0 mls/hr Vasopressin 20 units/ Dextrose 101 mls @ 9.09 mls/hr IV .Q11H7M [facility]ONI; 0.03 U/MIN PRN Reason: Protocol Last Admin: 10/06/16 04:38 Dose: 9.09 mls/hr NOREPINEPHRINE BIT/0.9 % NACL (Levophed 4 Mg/ 250 Ml Ns Premixed) 4 mg in 250 mls @ 15 mls/hr IV .[id number] PRN; Protocol; 4 MCG/MIN PRN Reason: TITRATE PER MD ORDER Last Titration: 10/06/16 08:35 Dose: 6 mcg/min, 22.5 mls/hr Fentanyl Citrate (Fentanyl Citrate/Sodium Chloride 1 Mg/100 Ml) 1,000 mcg in 100 mls @ 7.5 mls/hr IV .[id number] PRN; Protocol; 75 MCG/HR PRN Reason: TITRATE PER MD ORDER Last Titration: 10/05/16 23:30 Dose: 20 mcg/hr, 2 mls/hr Meropenem 500 mg/ Sodium (Chloride) 100 mls @ 100 mls/hr IVPB Q8 [facility]ONI PRN Reason: Protocol Stop: 10/15/16 14:01 Vancomycin HCl (Vancomycin 1gm) 1 gm in 250 mls @ 167 mls/hr IVPB STAT STA PRN Reason: Protocol Stop: 10/06/16 09:23 Lorazepam (Ativan) 2 mg IVP Q2H PRN; Protocol PRN Reason: Agitation Last Admin: 10/04/16 05:36 Dose: 2 mg Pantoprazole Sodium (Protonix Inj) 40 mg IVP DAILY [facility] Last Admin: 10/06/16 09:03 Dose: 40 mg Potassium Phos/Sodium Phos (Neutra-Phos) 1 pkt PO TID [facility] Last Admin: 10/05/16 17:36 Dose: 1 pkt Rifaximin (Xifaxan) 550 mg PO BID [facility] PRN Reason: Protocol Last Admin: 10/06/16 09:05 Dose: 550 mg Thiamine HCl (Vitamin B1 Tab) 100 mg PO DAILY [facility] Last Admin: 10/06/16 09:06 Dose: 100 mg Vancomycin HCl (Vancocin 25 Mg/Ml (Oral Use)) 125 mg PO Q6H [facility] PRN Reason: Protocol Last Admin: 10/06/16 04:43 Dose: 125 mg Vitamin A (Vitamin A & D Oint Ud Foilpak) 1 ea TOP DAILY [facility] Last Admin: 10/05/16 15:51 Dose: 1 ea Vitamin B Complex/Vit C/Folic Acid (Nephro-Mariann) 1 tab PO 0800 [facility] Last Admin: 10/06/16 08:42 Dose: 1 tab - Labs Labs: 10/06/16 05:00 10/06/16 05:00 PT 16.7 Seconds (9.9-11.8) H 10/06/16 05:00 INR 1.55 (0.93-1.08) H 10/06/16 05:00 APTT 39.3 Seconds (23.7-30.8) H 10/06/16 05:00 - Constitutional Appears: Toxic - Head Exam Head Exam: NORMAL INSPECTION - Eye Exam Eye Exam: Normal appearance, PERRL. absent: Periorbital tenderness Pupil Exam: NORMAL ACCOMODATION - ENT Exam ENT Exam: Mucous Membranes Moist - Neck Exam Neck Exam: Normal Inspection. absent: Thyromegaly - Respiratory Exam Respiratory Exam: Decreased Breath Sounds Assessment and Plan (1) Hypokalemia Assessment & Plan: K currently 3.2 after being repleted with 300mEq of KCL. Continue to monitor with serial cmp's Status: Acute - Assessment and Plan (Free Text) Assessment: Intubated: Mechanical Ventilation -FiO2- 60 PEEP-10 RR-30 Tidal Volume-350ml -Will continue protective lung ventilator strategy. Liver and Renal failure most likely secondary to hepatic cirrhosis -Diagnostic and Therapeutic Paracentesis was done. -Patient urine output only 80 cc overnight. Will continue to monitor for anuria. FeNa .2% indicated pre-renal failure most likely due to hepatic dysfunction. -Will continue to monitor liver enzymes, coags, and cbcs. Hypercapnic Respiratory Acidosis -patient still acidotic at 7.23 and CO2 is still elevated at 66 (down from a high of 99 when he was intubated). Pneumonia -Chest xray shows worsening pneumonia likely secondary to aspiration. c/w antibiotics. Repeat chest xray in the [facility] SIRS -continue Flagyl 250mg IVPB Q8, Merrem 1gm IVPB Q8, Vancomycin 1gm IVPB Q12H, and Vancomycin 125 mg POQ6H. Hypophosphatemia -repleted with K-Phos 15mmol IV. Will continue to monitor with serial BMP's. Hypomagnesmia -resolved. will continue to monitor with serial BMP's. <Shayne Gauthierzoe - Last Filed: 10/06/16 15:56> Objective - Vital Signs/Intake and Output Vital Signs (last 24 hours): Temp Pulse Resp BP Pulse Ox 98.6 F 84 32 H 120/73 99 10/06/16 12:00 10/06/16 10:00 10/06/16 05:55 10/06/16 05:55 10/06/16 05:55 Intake and Output: 10/06/16 10/06/16 06:59 18:59 Intake Total 2807 1245.8 Output Total 100 50 Balance 2707 1195.8 - Medications Medications: Current Medications Acetaminophen (Tylenol 160mg/5ml Oral Soln) 320 mg PO Q4 PRN PRN Reason: Fever >100.4 F Last Admin: 10/04/16 13:52 Dose: 320 mg Albuterol/Ipratropium (Duoneb 3 Mg/0.5 Mg (3 Ml) Ud) 3 ml IH [id number] [facility] Last Admin: 10/06/16 13:42 Dose: 3 ml Calcium Carbonate (Caltrate) 600 mg PO DAILY [facility] Last Admin: 10/06/16 09:06 Dose: 600 mg Folic Acid (Folic Acid) 1 mg PO DAILY [facility] Last Admin: 10/06/16 09:05 Dose: 1 mg Hydrocortisone Sodium Succinate (Solu-Cortef) 50 mg IVP Q6H [facility] Last Admin: 10/06/16 13:19 Dose: 50 mg Dexmedetomidine HCl (Precedex 4 Mcg/Ml (100 Ml)) 400 mcg in 100 mls @ 3.765 mls /hr IV .Q24H PRN; Protocol; 0.2 MCG/KG/HR PRN Reason: Agitation Last Titration: 10/04/16 08:45 Dose: 0 mcg/kg/hr, 0 mls/hr Propofol (Diprivan) 1,000 mg in 100 mls @ 2.259 mls/hr IV .Q24H PRN; Protocol; 5 MCG/KG/MIN PRN Reason: TITRATE PER MD ORDER Last Titration: 10/05/16 07:05 Dose: 0 mcg/kg/min, 0 mls/hr Vasopressin 20 units/ Dextrose 101 mls @ 9.09 mls/hr IV .Q11H7M TONI; 0.03 U/MIN PRN Reason: Protocol Last Admin: 10/06/16 04:38 Dose: 9.09 mls/hr NOREPINEPHRINE BIT/0.9 % NACL (Levophed 4 Mg/ 250 Ml Ns Premixed) 4 mg in 250 mls @ 15 mls/hr IV .[id number] PRN; Protocol; 4 MCG/MIN PRN Reason: TITRATE PER MD ORDER Last Titration: 10/06/16 15:19 Dose: 0 mcg/min, 0 mls/hr Fentanyl Citrate (Fentanyl Citrate/Sodium Chloride 1 Mg/100 Ml) 1,000 mcg in 100 mls @ 7.5 mls/hr IV .[id number] PRN; Protocol; 75 MCG/HR PRN Reason: TITRATE PER MD ORDER Last Titration: 10/06/16 12:58 Dose: 24 mcg/hr, 2.4 mls/hr Meropenem 500 mg/ Sodium (Chloride) 100 mls @ 100 mls/hr IVPB Q8 [facility]ONI PRN Reason: Protocol Stop: 10/15/16 14:01 Last Admin: 10/06/16 13:18 Dose: 100 mls/hr Lorazepam (Ativan) 2 mg IVP Q2H PRN; Protocol PRN Reason: Agitation Last Admin: 10/04/16 05:36 Dose: 2 mg Pantoprazole Sodium (Protonix Inj) 40 mg IVP DAILY [facility] Last Admin: 10/06/16 09:03 Dose: 40 mg Potassium Phos/Sodium Phos (Neutra-Phos) 1 pkt PO TID [facility] Last Admin: 10/05/16 17:36 Dose: 1 pkt Rifaximin (Xifaxan) 550 mg PO BID [facility] PRN Reason: Protocol Last Admin: 10/06/16 09:05 Dose: 550 mg Thiamine HCl (Vitamin B1 Tab) 100 mg PO DAILY [facility] Last Admin: 10/06/16 09:06 Dose: 100 mg Vancomycin HCl (Vancocin 25 Mg/Ml (Oral Use)) 125 mg PO Q6H [facility] PRN Reason: Protocol Last Admin: 10/06/16 11:38 Dose: 125 mg Vitamin A (Vitamin A & D Oint Ud Foilpak) 1 ea TOP DAILY [facility] Last Admin: 10/06/16 11:15 Dose: 1 ea Vitamin B Complex/Vit C/Folic Acid (Nephro-Mariann) 1 tab PO 0800 [facility] Last Admin: 10/06/16 08:42 Dose: 1 tab - Labs Labs: 10/06/16 12:00 10/06/16 12:00 PT 16.7 Seconds (9.9-11.8) H 10/06/16 05:00 INR 1.55 (0.93-1.08) H 10/06/16 05:00 APTT 39.3 Seconds (23.7-30.8) H 10/06/16 05:00 Attending/Attestation - Attestation I have personally seen and examined this patient.: Yes I have fully participated in the care of the patient.: Yes I have reviewed all pertinent clinical information, including history, physical exam and plan: Yes Notes (Text): 10/06/16 15:52 ttending note; Patient seen and examined with resident in ICU. patient is a 56-year-old male with a history of alcohol abuse, cirrhosis is admitted with alcohol withdrawal symptoms. Patient was intubated secondary to hypercapnic respiratory failure. on 60% fio2. Patient is sedated. hypotension is improving. on pressors. continue taper pressors. Acute renal failure;Urine output is decreasing.nephrology evaluation appreciated. Ascites; status post 2 L of ascitic fluid removed. culture results pending. hepatic encephalopathy; continue rifaximin. anemia; stool for occult blood is positive. Status post 3 unit PRBC transfusion. coagulopathy; status post FFP transfusion. Thrombocytopenia; 1 unit platelet transfusion ordered. monitor for bleeding. C. difficile; continue by mouth vancomycin. Sepsis/pneumonia; continue meropenem. ID evaluation appreciated. prognosis is poor. case discussed with family by ICU team. Palliative care evaluation requested.
[2016-10-06] MEDS: Fentanyl 1000mcg/100ml NS 1,000 MCG/100 ML BAG IV PRN (09:35)
[2016-10-06] MEDS ORDERED: Sodium Chloride 0.9% 1,000 ML IV STA ×2 (10:27→16:22)
[2016-10-06] MEDS ORDERED: Calcium Chloride 1000 mg/10 ml Syringe IV ONE ×2 (10:33→13:18)
[2016-10-06] MEDS: Vitamins A & D Oint UD Foilpak TOP SCH (11:15)
[2016-10-06] MEDS ORDERED: Magnesium Sulfate 2 GM in Sodium Chloride 0.9% 100 ML IVPB ONE (11:40)
--- NOTE | 2016-10-06 11:48 | CP.PCM.PN ---
Subjective - Date & Time of Evaluation Date of Evaluation: 10/06/16 Time of Evaluation: 08:00 - Subjective Subjective: Patient off sedation; still having multiple BM; minimal UO; Objective - Vital Signs/Intake and Output Vital Signs (last 24 hours): Temp Pulse Resp BP Pulse Ox 99.1 F 84 32 H 120/73 99 10/06/16 08:00 10/06/16 10:00 10/06/16 05:55 10/06/16 05:55 10/06/16 05:55 Intake and Output: 10/06/16 10/06/16 06:59 18:59 Intake Total 2807 1158.4 Output Total 100 50 Balance 2707 1108.4 - Medications Medications: Current Medications Acetaminophen (Tylenol 160mg/5ml Oral Soln) 320 mg PO Q4 PRN PRN Reason: Fever >100.4 F Last Admin: 10/04/16 13:52 Dose: 320 mg Albuterol/Ipratropium (Duoneb 3 Mg/0.5 Mg (3 Ml) Ud) 3 ml IH [id number] [facility] Last Admin: 10/06/16 07:25 Dose: 3 ml Calcium Carbonate (Caltrate) 600 mg PO DAILY [facility] Last Admin: 10/06/16 09:06 Dose: 600 mg Folic Acid (Folic Acid) 1 mg PO DAILY [facility] Last Admin: 10/06/16 09:05 Dose: 1 mg Hydrocortisone Sodium Succinate (Solu-Cortef) 50 mg IVP Q6H [facility] Last Admin: 10/06/16 08:42 Dose: 50 mg Dexmedetomidine HCl (Precedex 4 Mcg/Ml (100 Ml)) 400 mcg in 100 mls @ 3.765 mls /hr IV .Q24H PRN; Protocol; 0.2 MCG/KG/HR PRN Reason: Agitation Last Titration: 10/04/16 08:45 Dose: 0 mcg/kg/hr, 0 mls/hr Propofol (Diprivan) 1,000 mg in 100 mls @ 2.259 mls/hr IV .Q24H PRN; Protocol; 5 MCG/KG/MIN PRN Reason: TITRATE PER MD ORDER Last Titration: 10/05/16 07:05 Dose: 0 mcg/kg/min, 0 mls/hr Vasopressin 20 units/ Dextrose 101 mls @ 9.09 mls/hr IV .Q11H7M [facility]; 0.03 U/MIN PRN Reason: Protocol Last Admin: 10/06/16 04:38 Dose: 9.09 mls/hr NOREPINEPHRINE BIT/0.9 % NACL (Levophed 4 Mg/ 250 Ml Ns Premixed) 4 mg in 250 mls @ 15 mls/hr IV .[id number] PRN; Protocol; 4 MCG/MIN PRN Reason: TITRATE PER MD ORDER Last Titration: 10/06/16 09:30 Dose: 5 mcg/min, 18.75 mls/hr Fentanyl Citrate (Fentanyl Citrate/Sodium Chloride 1 Mg/100 Ml) 1,000 mcg in 100 mls @ 7.5 mls/hr IV .[id number] PRN; Protocol; 75 MCG/HR PRN Reason: TITRATE PER MD ORDER Last Admin: 10/06/16 09:35 Dose: 20 mcg/hr, 2 mls/hr Meropenem 500 mg/ Sodium (Chloride) 100 mls @ 100 mls/hr IVPB Q8 [facility] PRN Reason: Protocol Stop: 10/15/16 14:01 Magnesium Sulfate 2 gm/ Sodium (Chloride) 104 mls @ 102 mls/hr IVPB ONCE ONE Stop: 10/06/16 12:41 Lorazepam (Ativan) 2 mg IVP Q2H PRN; Protocol PRN Reason: Agitation Last Admin: 10/04/16 05:36 Dose: 2 mg Pantoprazole Sodium (Protonix Inj) 40 mg IVP DAILY [facility] Last Admin: 10/06/16 09:03 Dose: 40 mg Potassium Phos/Sodium Phos (Neutra-Phos) 1 pkt PO TID [facility] Last Admin: 10/05/16 17:36 Dose: 1 pkt Rifaximin (Xifaxan) 550 mg PO BID [facility] PRN Reason: Protocol Last Admin: 10/06/16 09:05 Dose: 550 mg Thiamine HCl (Vitamin B1 Tab) 100 mg PO DAILY [facility] Last Admin: 10/06/16 09:06 Dose: 100 mg Vancomycin HCl (Vancocin 25 Mg/Ml (Oral Use)) 125 mg PO Q6H [facility] PRN Reason: Protocol Last Admin: 10/06/16 11:38 Dose: 125 mg Vitamin A (Vitamin A & D Oint Ud Foilpak) 1 ea TOP DAILY [facility] Last Admin: 10/06/16 11:15 Dose: 1 ea Vitamin B Complex/Vit C/Folic Acid (Nephro-Mariann) 1 tab PO 0800 [facility] Last Admin: 10/06/16 08:42 Dose: 1 tab - Labs Labs: 10/06/16 05:00 10/06/16 05:00 PT 16.7 Seconds (9.9-11.8) H 10/06/16 05:00 INR 1.55 (0.93-1.08) H 10/06/16 05:00 APTT 39.3 Seconds (23.7-30.8) H 10/06/16 05:00 - Constitutional Appears: No Acute Distress - Head Exam Head Exam: NORMAL INSPECTION - ENT Exam ENT Exam: Mucous Membranes Moist - Respiratory Exam Respiratory Exam: Clear to Ausculation Bilateral. absent: Rales, Rhonchi, Wheezes - Cardiovascular Exam Cardiovascular Exam: REGULAR RHYTHM, +S1, +S2 - GI/Abdominal Exam GI & Abdominal Exam: Distended, Soft - Exam Additional comments: terrell in place; - Extremities Exam Extremities Exam: Normal Capillary Refill Additional comments: Moderately edematous legs extending to abd wall/low back; - Neurological Exam Additional comments: opens eyes to verbal stimuli; - Skin Skin Exam: Mottled. absent: Cyanosis Assessment and Plan (1) Acute renal failure Assessment & Plan: Oliguric renal failure; etiology unclear but ATN from sepsis and hypotension most likely despite very low FENa; direct visualization of urine micro showing ~ 6 granular casts/hpf which is also consistent with ATN although this is confounded by concomitant liver dysfunction; cannot rule out some degree of persistent intravascular volume depletion either in the setting of sepsis despite having received 1 g/kg albumin yesterday; therefore, cannot make diagnosis of hepatorenal; -agree with continuing volume repletion with crystalloids -awaiting lower ext venous duplex (positive study may suggest bilateral renal vein thrombosis as cause of SHAMAR, especially with marked hematuria on urine micro ) -no urgent indication to initiate PHARMACY COORDINATOR with relatively stable electrolyte status and FIO2 requirement; however, decision will likely need to be made in next 24- 48hrs; if PHARMACY COORDINATOR needed, it should be offered to him as he may have a correctable cause of SHAMAR Status: Acute (2) Acute hypercapnic respiratory failure Status: Acute (3) Hypokalemia Status: Acute (4) Hypocalcemia Status: Acute (5) SIRS (systemic inflammatory response syndrome) Status: Acute
[2016-10-06 12:19] LABS: BASO # 0.02 K/mm3 (0.0-2.0); BASO % 0.5 % (0.0-3.0); EOS % 0.2 % (1.5-5.0); GRAN # 2.94 (1.4-6.5); GRAN % 67.1 % (50.0-68.0); HEMATOCRIT 26.4 % (42.0-52.0); LYMPH # 1.3 (1.2-3.4); LYMPH % 29.2 % (22.0-35.0); MEAN CELL VOLUME 97.4 fl (80.0-105.0); MEAN CORPUSCULAR HEMOGLOBIN 32.5 pg (25.0-35.0); MEAN CORPUSCULAR HGB CONC 33.3 g/dl (31.0-37.0); MEAN PLATELET VOLUME 12.8 fl (7.0-11.0); MONO # 0.1 (0.1-0.6); RED CELL DISTRIBUTION WIDTH 16.6 % (11.5-14.5); WHITE BLOOD COUNT 4.4 10^3/ul (4.5-11.0)
[2016-10-06 12:22] LABS: ABG MECHANICAL RATE 26; ARTERIAL BLOOD GAS HCO3 24.4 mmol/L (21-28); ARTERIAL BLOOD GAS PH 7.28 (7.35-7.45); ATERIAL BLOOD GAS PEEP 10
[2016-10-06 12:27] LABS: POTASSIUM 3.2 mmol/L (3.6-5.0)
[2016-10-06 12:32] LABS: CALCIUM 6.7 mg/dL (8.4-10.5)
--- NOTE | 2016-10-06 12:32 | US ---
HISTORY: Leg pain and swelling. Evaluate for DVT PHYSICIAN(S): Charles Mullins MD. TECHNIQUE: Duplex sonography and color-flow Doppler with graded compression were used to evaluate the deep venous systems of both lower extremities. The exam is somewhat limited by edema. FINDINGS: The visualized deep venous systems of both lower extremities are sonographically normal and compressible. Normal wave forms and augmentation are seen. There is no sonographic evidence for deep venous thrombosis in the visualized segments of both lower extremities. IMPRESSION: No sonographic evidence for deep venous thrombosis in the visualized segments of both lower extremities.
[2016-10-06] MEDS: Meropenem 500 MG in Sodium Chloride 0.9% 100 ML IVPB SCH ×2 (13:18→21:45)
--- NOTE | 2016-10-06 13:22 | CP.PCM.CON ---
History of Present Illness - History of Present Illness History of Present Illness: Palliative consult requested by Dr Clara Gauthier Reason:Goals of care 56 year old male with history of chronic alcohol abuse who presented with anxiety, tremors, diarrhea and vomiting of few days duration. He reported having stopped drinking 2 days prior.He was found to have severe electrolyte imbalance, acute renal failure and sepsis.Patient subsequently developed respiratory acidosis and was intubated last evening. PMHx:liver cirrhosis, gastritis, esophageal varices, HTN, Hepatititis C, pancytopenia Family History: Father of liver cancer, mother of breast cancer, sister had brain aneurism Social History: Smoker, alcohol and heroin use. , his daughter Nasrin Kruger is his next of kin. Advance Care Planning: The patient does not have an Advanced Directive. Review of Systems: as per HPI, unable to obtain as the patient intubated Past Patient History - Infectious Disease Hx of Infectious Diseases: None - Tetanus Immunizations Tetanus Immunization: Unknown - Past Medical History & Family History Past Medical History?: Yes - Past Social History Smoking Status: Heavy Smoker > 10 Cigarettes Daily - CARDIAC Hx Cardiac Disorders: No - PULMONARY Hx Respiratory Disorders: No Other/Comment: Active smoker - NEUROLOGICAL Hx Neurological Disorder: Yes Hx Seizures: Yes - HEENT Hx HEENT Problems: Yes (eyeglasses) - RENAL Hx Chronic Kidney Disease: No - ENDOCRINE/METABOLIC Hx Endocrine Disorders: No - HEMATOLOGICAL/ONCOLOGICAL Hx Blood Disorders: No - INTEGUMENTARY Hx Dermatological Problems: No - MUSCULOSKELETAL/RHEUMATOLOGICAL Hx Falls: No - GASTROINTESTINAL Hx Gastrointestinal Disorders: Yes Other/Comment: Liver Dx, esophogeal varices, - GENITOURINARY/GYNECOLOGICAL Hx Genitourinary Disorders: No - PSYCHIATRIC Hx Psychophysiologic Disorder: Yes Hx Depression: Yes Hx Substance Use: No - SURGICAL HISTORY Other/Comment: s/p banding of varices x2. endoscopy - ANESTHESIA Hx Anesthesia: Yes Hx Anesthesia Reactions: No Hx Malignant Hyperthermia: No Meds Allergies/Adverse Reactions: Allergies Allergy/AdvReac Type Severity Reaction Status Date / Time pseudoephedrine HCl Allergy Mild NAUSEA Verified 10/02/16 19:19 [From Sudafed] Sulfa (Sulfonamide Allergy Mild ANGIOEDEMA Verified 10/02/16 19:19 Antibiotics) Penicillins AdvReac Anxiety Verified 10/02/16 19:19 - Medications Medications: Current Medications Acetaminophen (Tylenol 160mg/5ml Oral Soln) 320 mg PO Q4 PRN PRN Reason: Fever >100.4 F Last Admin: 10/04/16 13:52 Dose: 320 mg Albuterol/Ipratropium (Duoneb 3 Mg/0.5 Mg (3 Ml) Ud) 3 ml IH [id number] [facility] Last Admin: 10/06/16 07:25 Dose: 3 ml Calcium Carbonate (Caltrate) 600 mg PO DAILY [facility] Last Admin: 10/06/16 09:06 Dose: 600 mg Folic Acid (Folic Acid) 1 mg PO DAILY [facility] Last Admin: 10/06/16 09:05 Dose: 1 mg Hydrocortisone Sodium Succinate (Solu-Cortef) 50 mg IVP Q6H [facility] Last Admin: 10/06/16 08:42 Dose: 50 mg Dexmedetomidine HCl (Precedex 4 Mcg/Ml (100 Ml)) 400 mcg in 100 mls @ 3.765 mls /hr IV .Q24H PRN; Protocol; 0.2 MCG/KG/HR PRN Reason: Agitation Last Titration: 10/04/16 08:45 Dose: 0 mcg/kg/hr, 0 mls/hr Propofol (Diprivan) 1,000 mg in 100 mls @ 2.259 mls/hr IV .Q24H PRN; Protocol; 5 MCG/KG/MIN PRN Reason: TITRATE PER MD ORDER Last Titration: 10/05/16 07:05 Dose: 0 mcg/kg/min, 0 mls/hr Vasopressin 20 units/ Dextrose 101 mls @ 9.09 mls/hr IV .[id number] TONI; 0.03 U/MIN PRN Reason: Protocol Last Admin: 10/06/16 04:38 Dose: 9.09 mls/hr NOREPINEPHRINE BIT/0.9 % NACL (Levophed 4 Mg/ 250 Ml Ns Premixed) 4 mg in 250 mls @ 15 mls/hr IV .[id number] PRN; Protocol; 4 MCG/MIN PRN Reason: TITRATE PER MD ORDER Last Titration: 10/06/16 12:57 Dose: 1.06 mcg/min, 4 mls/hr Fentanyl Citrate (Fentanyl Citrate/Sodium Chloride 1 Mg/100 Ml) 1,000 mcg in 100 mls @ 7.5 mls/hr IV .[id number] PRN; Protocol; 75 MCG/HR PRN Reason: TITRATE PER MD ORDER Last Titration: 10/06/16 12:58 Dose: 24 mcg/hr, 2.4 mls/hr Meropenem 500 mg/ Sodium (Chloride) 100 mls @ 100 mls/hr IVPB Q8 TONI PRN Reason: Protocol Stop: 10/15/16 14:01 Lorazepam (Ativan) 2 mg IVP Q2H PRN; Protocol PRN Reason: Agitation Last Admin: 10/04/16 05:36 Dose: 2 mg Pantoprazole Sodium (Protonix Inj) 40 mg IVP DAILY [facility] Last Admin: 10/06/16 09:03 Dose: 40 mg Potassium Phos/Sodium Phos (Neutra-Phos) 1 pkt PO TID [facility] Last Admin: 10/05/16 17:36 Dose: 1 pkt Rifaximin (Xifaxan) 550 mg PO BID TONI PRN Reason: Protocol Last Admin: 10/06/16 09:05 Dose: 550 mg Thiamine HCl (Vitamin B1 Tab) 100 mg PO DAILY [facility] Last Admin: 10/06/16 09:06 Dose: 100 mg Vancomycin HCl (Vancocin 25 Mg/Ml (Oral Use)) 125 mg PO Q6H TONI PRN Reason: Protocol Last Admin: 10/06/16 11:38 Dose: 125 mg Vitamin A (Vitamin A & D Oint Ud Foilpak) 1 ea TOP DAILY [facility] Last Admin: 10/06/16 11:15 Dose: 1 ea Vitamin B Complex/Vit C/Folic Acid (Nephro-Mariann) 1 tab PO 0800 [facility] Last Admin: 10/06/16 08:42 Dose: 1 tab Physical Exam - Constitutional Appears: Chronically Ill - Head Exam Head Exam: NORMAL INSPECTION - Eye Exam Eye Exam: Normal appearance, PERRL - ENT Exam ENT Exam: Mucous Membranes Moist - Respiratory Exam Respiratory Exam: Decreased Breath Sounds, NORMAL BREATHING PATTERN - Cardiovascular Exam Cardiovascular Exam: REGULAR RHYTHM, +S1, +S2 - GI/Abdominal Exam GI & Abdominal Exam: Distended, Hypoactive Bowel Sounds - Exam Additional comments: oliguria - Neurological Exam Neurological exam: Altered - Skin Skin Exam: Dry, Pallor - Additional Findings Additional findings: Palliative performance scale rating 20% Results - Vital Signs Recent Vital Signs: Last Vital Signs Temp 99.1 F 10/06/16 08:00 Pulse 84 10/06/16 10:00 Resp 32 H 10/06/16 05:55 BP 120/73 10/06/16 05:55 Pulse Ox 99 10/06/16 05:55 - Labs Result Diagrams: 10/06/16 12:00 10/06/16 12:00 Labs: Laboratory Results - last 24 hr 10/04/16 10/05/16 10/05/16 05:50 16:25 16:50 WBC 5.0 RBC 2.10 L Hgb 6.8 L* D Hct 21.1 L MCV 100.5 MCH 32.4 MCHC 32.2 RDW 16.3 H Plt Count 50 L Manual Plt Count MPV 12.5 H Gran % 68.1 H Lymph % (Auto) 28.1 [place] % (Auto) 3.4 Eos % (Auto) 0.2 L Baso % (Auto) 0.2 Gran # 3.41 Lymph # 1.4 [place] # 0.2 Eos # 0.0 Baso # 0.01 Neutrophils % (Manual) 56 Band Neutrophils % 17 H* Lymphocytes % (Manual) 23 Monocytes % (Manual) 4 Platelet Evaluation Low Hypochromasia Slight Haptoglobin 54 PT INR APTT pCO2 71 H* pO2 176.0 H HCO3 27.1 ABG pH 7.19 L* ABG Total CO2 29.3 H ABG O2 Saturation 100.8 H ABG O2 Content ABG Base Excess -1.5 ABG Hemoglobin ABG Carboxyhemoglobin POC ABG HHb (Measured) ABG Methemoglobin ABG O2 Capacity ABG Potassium 3.3 L VBG pH VBG pCO2 VBG HCO3 VBG Total CO2 VBG O2 Sat (Calc) VBG Base Excess VBG Potassium Hgb O2 Saturation Sodium 144.0 Chloride 114.0 H Glucose 154 H Lactate 2.3 H Mechanical Rate FiO2 80.0 Tidal Volume PEEP Potassium Carbon Dioxide Anion Gap BUN Creatinine Est GFR ( Amer) Est GFR (Non-Af Amer) Random Glucose Calcium Phosphorus Magnesium Total Bilirubin AST ALT Alkaline Phosphatase Ammonia Total Creatine Kinase CK-MB (CK-2) CK-MB (CK-2) % Total Protein Albumin Globulin Albumin/Globulin Ratio Arterial Blood Potassium 3.3 L Venous Blood Potassium Urine Color Urine Appearance Urine pH Ur Specific [place] Urine Protein Urine Glucose (UA) Urine Ketones Urine Blood Urine Nitrate Urine Bilirubin Urine Urobilinogen Ur Leukocyte Esterase Urine RBC Urine WBC Ur Epithelial Cells Urine Bacteria Ur Random Creatinine Ur Random Sodium Stool Occult Blood Vancomycin Trough Blood Type Antibody Screen Crossmatch BBK History Checked 10/05/16 10/05/16 10/05/16 16:50 17:00 17:00 WBC 5.3 RBC 2.11 L Hgb 6.9 L* Hct 21.1 L MCV 100.0 MCH 32.7 MCHC 32.7 RDW 16.8 H Plt Count 110 L Manual Plt Count MPV Gran % 68.3 H Lymph % (Auto) 27.7 [place] % (Auto) 3.6 Eos % (Auto) 0.0 L Baso % (Auto) 0.4 Gran # 3.62 Lymph # 1.5 [place] # 0.2 Eos # 0.0 Baso # 0.02 Neutrophils % (Manual) Band Neutrophils % Lymphocytes % (Manual) Monocytes % (Manual) Platelet Evaluation Hypochromasia Haptoglobin PT 19.5 H INR 1.81 H APTT 45.4 H pCO2 pO2 HCO3 ABG pH ABG Total CO2 ABG O2 Saturation ABG O2 Content ABG Base Excess ABG Hemoglobin ABG Carboxyhemoglobin POC ABG HHb (Measured) ABG Methemoglobin ABG O2 Capacity ABG Potassium VBG pH VBG pCO2 VBG HCO3 VBG Total CO2 VBG O2 Sat (Calc) VBG Base Excess VBG Potassium Hgb O2 Saturation Sodium 143 Chloride 106 Glucose Lactate Mechanical Rate FiO2 Tidal Volume PEEP Potassium 3.3 L Carbon Dioxide 24 Anion Gap 16 BUN 20 Creatinine 1.7 H Est GFR ( Amer) 51 Est GFR (Non-Af Amer) 42 Random Glucose 195 H Calcium 5.5 L* Phosphorus 5.8 H Magnesium 1.3 L Total Bilirubin 3.3 H AST 167 H ALT 68 H Alkaline Phosphatase 34 L Ammonia Total Creatine Kinase CK-MB (CK-2) CK-MB (CK-2) % Total Protein 5.0 L Albumin 2.9 L Globulin 2.0 Albumin/Globulin Ratio 1.5 Arterial Blood Potassium Venous Blood Potassium Urine Color Urine Appearance Urine pH Ur Specific [place] Urine Protein Urine Glucose (UA) Urine Ketones Urine Blood Urine Nitrate Urine Bilirubin Urine Urobilinogen Ur Leukocyte Esterase Urine RBC Urine WBC Ur Epithelial Cells Urine Bacteria Ur Random Creatinine Ur Random Sodium Stool Occult Blood Vancomycin Trough Blood Type Antibody Screen Crossmatch BBK History Checked 10/05/16 10/05/16 10/05/16 17:00 18:20 21:16 WBC RBC Hgb Hct MCV MCH MCHC RDW Plt Count Manual Plt Count MPV Gran % Lymph % (Auto) [place] % (Auto) Eos % (Auto) Baso % (Auto) Gran # Lymph # [place] # Eos # Baso # Neutrophils % (Manual) Band Neutrophils % Lymphocytes % (Manual) Monocytes % (Manual) Platelet Evaluation Hypochromasia Haptoglobin PT INR APTT pCO2 pO2 HCO3 ABG pH ABG Total CO2 ABG O2 Saturation ABG O2 Content ABG Base Excess ABG Hemoglobin ABG Carboxyhemoglobin POC ABG HHb (Measured) ABG Methemoglobin ABG O2 Capacity ABG Potassium VBG pH VBG pCO2 VBG HCO3 VBG Total CO2 VBG O2 Sat (Calc) VBG Base Excess VBG Potassium Hgb O2 Saturation Sodium Chloride Glucose Lactate Mechanical Rate FiO2 Tidal Volume PEEP Potassium Carbon Dioxide Anion Gap BUN Creatinine Est GFR ( Amer) Est GFR (Non-Af Amer) Random Glucose Calcium Phosphorus Magnesium Total Bilirubin AST ALT Alkaline Phosphatase Ammonia 59 H Total Creatine Kinase CK-MB (CK-2) CK-MB (CK-2) % Total Protein Albumin Globulin Albumin/Globulin Ratio Arterial Blood Potassium Venous Blood Potassium Urine Color Urine Appearance Urine pH Ur Specific [place] Urine Protein Urine Glucose (UA) Urine Ketones Urine Blood Urine Nitrate Urine Bilirubin Urine Urobilinogen Ur Leukocyte Esterase Urine RBC Urine WBC Ur Epithelial Cells Urine Bacteria Ur Random Creatinine Ur Random Sodium Stool Occult Blood Positive H Vancomycin Trough Blood Type O POSITIVE Antibody Screen Negative Crossmatch See Detail BBK History Checked Patient has bt 10/06/16 10/06/16 10/06/16 01:11 02:01 05:00 WBC 6.3 RBC 2.96 L Hgb 9.8 L D Hct 29.0 L MCV 98.0 MCH 33.1 MCHC 33.8 RDW 16.6 H Plt Count 43 L* Manual Plt Count MPV 12.3 H Gran % 70.2 H Lymph % (Auto) 26.4 [place] % (Auto) 3.2 Eos % (Auto) 0.0 L Baso % (Auto) 0.2 Gran # 4.42 Lymph # 1.7 [place] # 0.2 Eos # 0.0 Baso # 0.01 Neutrophils % (Manual) Band Neutrophils % Lymphocytes % (Manual) Monocytes % (Manual) Platelet Evaluation Hypochromasia Haptoglobin PT INR APTT pCO2 57 H pO2 125.0 H HCO3 23.9 ABG pH 7.23 L ABG Total CO2 25.6 ABG O2 Saturation 100.3 H ABG O2 Content ABG Base Excess -3.8 L ABG Hemoglobin ABG Carboxyhemoglobin POC ABG HHb (Measured) ABG Methemoglobin ABG O2 Capacity ABG Potassium 3.2 L VBG pH VBG pCO2 VBG HCO3 VBG Total CO2 VBG O2 Sat (Calc) VBG Base Excess VBG Potassium Hgb O2 Saturation Sodium 143.0 Chloride 111.0 H Glucose 174 H Lactate 2.0 Mechanical Rate 30 FiO2 60.0 Tidal Volume 350 PEEP 10 Potassium Carbon Dioxide Anion Gap BUN Creatinine Est GFR ( Amer) Est GFR (Non-Af Amer) Random Glucose Calcium Phosphorus Magnesium Total Bilirubin AST ALT Alkaline Phosphatase Ammonia Total Creatine Kinase CK-MB (CK-2) CK-MB (CK-2) % Total Protein Albumin Globulin Albumin/Globulin Ratio Arterial Blood Potassium 3.2 L Venous Blood Potassium Urine Color Urine Appearance Urine pH Ur Specific [place] Urine Protein Urine Glucose (UA) Urine Ketones Urine Blood Urine Nitrate Urine Bilirubin Urine Urobilinogen Ur Leukocyte Esterase Urine RBC Urine WBC Ur Epithelial Cells Urine Bacteria Ur Random Creatinine 210 Ur Random Sodium Stool Occult Blood Vancomycin Trough Blood Type Antibody Screen Crossmatch BBK History Checked 10/06/16 10/06/16 10/06/16 05:00 05:00 05:00 WBC RBC Hgb Hct MCV MCH MCHC RDW Plt Count Manual Plt Count MPV Gran % Lymph % (Auto) [place] % (Auto) Eos % (Auto) Baso % (Auto) Gran # Lymph # [place] # Eos # Baso # Neutrophils % (Manual) Band Neutrophils % Lymphocytes % (Manual) Monocytes % (Manual) Platelet Evaluation Hypochromasia Haptoglobin PT 16.7 H INR 1.55 H APTT 39.3 H pCO2 pO2 HCO3 ABG pH ABG Total CO2 ABG O2 Saturation ABG O2 Content ABG Base Excess ABG Hemoglobin ABG Carboxyhemoglobin POC ABG HHb (Measured) ABG Methemoglobin ABG O2 Capacity ABG Potassium VBG pH VBG pCO2 VBG HCO3 VBG Total CO2 VBG O2 Sat (Calc) VBG Base Excess VBG Potassium Hgb O2 Saturation Sodium 145 Chloride 108 H Glucose Lactate Mechanical Rate FiO2 Tidal Volume PEEP Potassium 3.2 L Carbon Dioxide 24 Anion Gap 16 BUN 24 H Creatinine 1.9 H Est GFR ( Amer) 45 Est GFR (Non-Af Amer) 37 Random Glucose 160 H Calcium 5.9 L* Phosphorus 5.4 H Magnesium 1.7 Total Bilirubin 3.3 H AST 164 H ALT 70 H Alkaline Phosphatase 42 Ammonia 66 H Total Creatine Kinase CK-MB (CK-2) CK-MB (CK-2) % Total Protein 4.9 L Albumin 2.9 L Globulin 2.0 Albumin/Globulin Ratio 1.5 Arterial Blood Potassium Venous Blood Potassium Urine Color Urine Appearance Urine pH Ur Specific [place] Urine Protein Urine Glucose (UA) Urine Ketones Urine Blood Urine Nitrate Urine Bilirubin Urine Urobilinogen Ur Leukocyte Esterase Urine RBC Urine WBC Ur Epithelial Cells Urine Bacteria Ur Random Creatinine Ur Random Sodium Stool Occult Blood Vancomycin Trough Blood Type Antibody Screen Crossmatch BBK History Checked 10/06/16 10/06/16 10/06/16 05:01 05:30 07:20 WBC RBC Hgb Hct MCV MCH MCHC RDW Plt Count Manual Plt Count MPV Gran % Lymph % (Auto) [place] % (Auto) Eos % (Auto) Baso % (Auto) Gran # Lymph # [place] # Eos # Baso # Neutrophils % (Manual) Band Neutrophils % Lymphocytes % (Manual) Monocytes % (Manual) Platelet Evaluation Hypochromasia Haptoglobin PT INR APTT pCO2 55 H pO2 92 H 140.0 H HCO3 24.1 ABG pH 7.25 L ABG Total CO2 25.8 ABG O2 Saturation 100.6 H ABG O2 Content 13.4 L ABG Base Excess -3.4 L ABG Hemoglobin 9.5 L ABG Carboxyhemoglobin 2.0 H POC ABG HHb (Measured) -0.6 L ABG Methemoglobin 0.8 ABG O2 Capacity 13.3 L ABG Potassium VBG pH 7.20 L VBG pCO2 66.0 H* VBG HCO3 25.8 VBG Total CO2 27.8 VBG O2 Sat (Calc) 99.2 H VBG Base Excess -3.6 L VBG Potassium 3.1 L Hgb O2 Saturation 97.8 Sodium 143.0 Chloride 109.0 H Glucose 166 H Lactate 1.8 Mechanical Rate FiO2 21.0 60.0 Tidal Volume PEEP Potassium Carbon Dioxide Anion Gap BUN Creatinine Est GFR ( Amer) Est GFR (Non-Af Amer) Random Glucose Calcium Phosphorus Magnesium Total Bilirubin AST ALT Alkaline Phosphatase Ammonia Total Creatine Kinase CK-MB (CK-2) CK-MB (CK-2) % Total Protein Albumin Globulin Albumin/Globulin Ratio Arterial Blood Potassium Venous Blood Potassium 3.1 L Urine Color Urine Appearance Urine pH Ur Specific [place] Urine Protein Urine Glucose (UA) Urine Ketones Urine Blood Urine Nitrate Urine Bilirubin Urine Urobilinogen Ur Leukocyte Esterase Urine RBC Urine WBC Ur Epithelial Cells Urine Bacteria Ur Random Creatinine Ur Random Sodium 43 Stool Occult Blood Vancomycin Trough Blood Type Antibody Screen Crossmatch BBK History Checked 10/06/16 10/06/16 10/06/16 08:05 08:05 09:00 WBC RBC Hgb Hct MCV MCH MCHC RDW Plt Count Manual Plt Count MPV Gran % Lymph % (Auto) [place] % (Auto) Eos % (Auto) Baso % (Auto) Gran # Lymph # [place] # Eos # Baso # Neutrophils % (Manual) Band Neutrophils % Lymphocytes % (Manual) Monocytes % (Manual) Platelet Evaluation Hypochromasia Haptoglobin PT INR APTT pCO2 pO2 HCO3 ABG pH ABG Total CO2 ABG O2 Saturation ABG O2 Content ABG Base Excess ABG Hemoglobin ABG Carboxyhemoglobin POC ABG HHb (Measured) ABG Methemoglobin ABG O2 Capacity ABG Potassium VBG pH VBG pCO2 VBG HCO3 VBG Total CO2 VBG O2 Sat (Calc) VBG Base Excess VBG Potassium Hgb O2 Saturation Sodium Chloride Glucose Lactate Mechanical Rate FiO2 Tidal Volume PEEP Potassium Carbon Dioxide Anion Gap BUN Creatinine Est GFR ( Amer) Est GFR (Non-Af Amer) Random Glucose Calcium Phosphorus Magnesium Total Bilirubin AST ALT Alkaline Phosphatase Ammonia Total Creatine Kinase CK-MB (CK-2) CK-MB (CK-2) % Total Protein Albumin Globulin Albumin/Globulin Ratio Arterial Blood Potassium Venous Blood Potassium Urine Color Yellow Urine Appearance Cloudy Urine pH 5.0 Ur Specific [place] >= 1.030 Urine Protein >=300 H Urine Glucose (UA) Negative Urine Ketones 15 H Urine Blood Large H Urine Nitrate Positive H Urine Bilirubin Moderate H Urine Urobilinogen 1.0 H Ur Leukocyte Esterase Trace H Urine RBC Tntc Urine WBC 5 - 10 Ur Epithelial Cells 4 - 5 Urine Bacteria Mod Ur Random Creatinine 210 Ur Random Sodium 37 Stool Occult Blood Vancomycin Trough 12.6 H Blood Type Antibody Screen Crossmatch BBK History Checked 10/06/16 10/06/16 10/06/16 12:00 12:00 12:10 WBC 4.4 L D RBC 2.71 L Hgb 8.8 L Hct 26.4 L MCV 97.4 MCH 32.5 MCHC 33.3 RDW 16.6 H Plt Count 40 L* Manual Plt Count 50 L* MPV 12.8 H Gran % 67.1 Lymph % (Auto) 29.2 [place] % (Auto) 3.0 Eos % (Auto) 0.2 L Baso % (Auto) 0.5 Gran # 2.94 Lymph # 1.3 [place] # 0.1 Eos # 0.0 Baso # 0.02 Neutrophils % (Manual) Band Neutrophils % Lymphocytes % (Manual) Monocytes % (Manual) Platelet Evaluation Hypochromasia Haptoglobin PT INR APTT pCO2 52 H pO2 119.0 H HCO3 24.4 ABG pH 7.28 L ABG Total CO2 26.0 ABG O2 Saturation 100.0 H ABG O2 Content ABG Base Excess -2.5 L ABG Hemoglobin ABG Carboxyhemoglobin POC ABG HHb (Measured) ABG Methemoglobin ABG O2 Capacity ABG Potassium 3.0 L VBG pH VBG pCO2 VBG HCO3 VBG Total CO2 VBG O2 Sat (Calc) VBG Base Excess VBG Potassium Hgb O2 Saturation Sodium 143 145.0 Chloride 109 H 111.0 H Glucose 154 H Lactate 1.7 Mechanical Rate 26 FiO2 50.0 Tidal Volume 400 PEEP 10 Potassium 3.2 L Carbon Dioxide 24 Anion Gap 13 BUN 25 H Creatinine 2.0 H Est GFR ( Amer) 42 Est GFR (Non-Af Amer) 35 Random Glucose 153 H Calcium 6.7 L* Phosphorus Magnesium Total Bilirubin AST ALT Alkaline Phosphatase Ammonia Total Creatine Kinase 241 H CK-MB (CK-2) 3.2 CK-MB (CK-2) % 1.3 L Total Protein Albumin Globulin Albumin/Globulin Ratio Arterial Blood Potassium 3.0 L Venous Blood Potassium Urine Color Urine Appearance Urine pH Ur Specific [place] Urine Protein Urine Glucose (UA) Urine Ketones Urine Blood Urine Nitrate Urine Bilirubin Urine Urobilinogen Ur Leukocyte Esterase Urine RBC Urine WBC Ur Epithelial Cells Urine Bacteria Ur Random Creatinine Ur Random Sodium Stool Occult Blood Vancomycin Trough Blood Type Antibody Screen Crossmatch BBK History Checked Assessment & Plan - Assessment and Plan (Free Text) Assessment: 56 year old male with history of polysubstance abuse, cirrhosis, Hepatitis C who was admitted with sepsis, multi organ failure. He is intubated, receiving pressors. Urine output deceasing. i was asked to speak with patients daughter regarding goals of care and advance care planning. Michelle MORAN spoke with daughter who states planing on visiting later today. Plan: Palliative support/ Advance care planning.
--- NOTE | 2016-10-06 13:54 | PN ---
DATE: 10/06/2016 SUBJECTIVE: The patient seen earlier this morning in ICU bed #4. The patient is intubated on the ventilator, unresponsive and with low-grade fevers. PHYSICAL EXAMINATION VITAL SIGNS: Temperature is 99.3, pulse is 89, respiratory rate , on a vent, and blood pressure is 115/60. HEENT: Unremarkable. ET tube is in place. NECK: Supple. LUNGS: Decreased breath sounds. HEART: Normal S1 and S2. ABDOMEN: Soft and nontender. No organomegaly, no rebound and no guarding. LABORATORY DATA: Reveals a white count of 6.3, hemoglobin of 9.8, platelets of 43. Chemistries reveal a BUN of 24, creatinine of 1.9. LFTs are improved somewhat. Urinalysis is noted and peritoneal fluid shows 563 wbc's and 96% lymphocytes. Toxicology is noted. Hepatitis profile is noted, hepatitis C positive. Microbiology reveals blood cultures are no growth. Urine cultures are no growth. Urine for C. diff is positive antigen, negative toxin. Peritoneal fluid cultures are pending and no organisms on the Gram stain. Sputum cultures are pending. Review of the orders reveals the patient to be on meropenem and the patient is also on p.o. vancomycin. The patient is also on Zyvox. ASSESSMENT AND PLAN: This is a 56-year-old male with a history of hepatitis C and with respiratory failure, intubated on the ventilator, respiratory acidosis with acute renal failure with spontaneous bacterial peritonitis in the patient with hepatitis C and alcohol abuse and cirrhosis of the liver, on day #2 Zyvox and p.o. vancomycin and meropenem. We will check on the panculture results and repeat blood culture results from yesterday. The patient's procalcitonin of 0.59 from 10/02/2016. May need to discontinue Zyvox because of the thrombocytopenia. The patient's chest x-ray from yesterday, hilar infiltrate with healthcare-associated pneumonia, we will discontinue the Zyvox, give a dose of vancomycin. Overall prognosis is quite poor. Nehemiah Aguilar MD
--- NOTE | 2016-10-06 14:22 | PN ---
DATE: 10/06/2016 I reviewed the clinical progress of Mr. Kruger with Dr. Hinojosa last night, also with the nurses in the ICU this morning. The patient decompensated yesterday, subsequently had to be intubated. He is currently still intubated. I reviewed the issue of the paracentesis performed yesterday with Dr. Hinojosa. Apparently, the fluid was straw-colored, study is still pending. Possibility that the abdomen was distended because of excess air. The abdomen is still mildly distended. Note that the abdominal pelvic CT scan performed on 10/04 indicates a thickening in the sigmoid area with some abdominal pelvic ascites, which appears to be mildly loculated. There is hepatosplenomegaly which is consistent with cirrhosis versus hepatitis steatosis. Bilateral pleural effusions were noted. There is no evidence of bowel obstruction or perforation evident on the CT scan. Patient is currently C. diff positive and antibiotics have been changed as per Dr. Dunbar. Current antibiotics include meropenem as well as vancomycin 125 every 6 hours. Patient is still on pressors. I reviewed the issue of lactulose versus rifaximin for this patient. Dr. Hinojosa has changed the lactulose previously given to the patient to rifaximin dosage 550 b.i.d. for treatment of ammonia levels in HE. Looking through the orders and discussing this case with the nurses regimen is appropriate. Will be followed up by the fast food manager as well as several consultants earlier this morning. Amadeo Kaminski DO, PhD [place]
[2016-10-06 16:31] LABS: GRAN # 2.13 (1.4-6.5); GRAN % 66.9 % (50.0-68.0); HEMATOCRIT 25.7 % (42.0-52.0); LYMPH # 0.9 (1.2-3.4); LYMPH % 29.6 % (22.0-35.0); MEAN CELL VOLUME 97.7 fl (80.0-105.0); MEAN CORPUSCULAR HEMOGLOBIN 31.9 pg (25.0-35.0); MEAN CORPUSCULAR HGB CONC 32.7 g/dl (31.0-37.0); MEAN PLATELET VOLUME 12.9 fl (7.0-11.0); MONO # 0.1 (0.1-0.6); MONO % 3.5 % (1.0-6.0); RED CELL DISTRIBUTION WIDTH 16.9 % (11.5-14.5); WHITE BLOOD COUNT 3.2 10^3/ul (4.5-11.0)
[2016-10-06 21:10] LABS: GRAN # 1.98 (1.4-6.5); GRAN % 65.8 % (50.0-68.0); HEMATOCRIT 24.5 % (42.0-52.0); LYMPH # 0.9 (1.2-3.4); LYMPH % 28.2 % (22.0-35.0); MEAN CELL VOLUME 97.6 fl (80.0-105.0); MEAN CORPUSCULAR HEMOGLOBIN 32.3 pg (25.0-35.0); MEAN CORPUSCULAR HGB CONC 33.1 g/dl (31.0-37.0); MEAN PLATELET VOLUME 11.5 fl (7.0-11.0); MONO # 0.2 (0.1-0.6); RED CELL DISTRIBUTION WIDTH 16.9 % (11.5-14.5)
[2016-10-06 21:44] LABS: PLATELET COUNT 28 10^3/uL (120.0-450.0)
[2016-10-07] MEDS: Albuterol-Ipratrop 3 mg / 0.5 (3 ml) UD IH SCH ×4 (01:29→19:51)
[2016-10-07] MEDS: Meropenem 500 MG in Sodium Chloride 0.9% 100 ML IVPB SCH ×3 (05:16→22:00)
[2016-10-07 05:27] LABS: BASO # 0.01 K/mm3 (0.0-2.0); BASO % 0.3 % (0.0-3.0); GRAN # 2.09 (1.4-6.5); GRAN % 69.7 % (50.0-68.0); HEMATOCRIT 24.6 % (42.0-52.0); LYMPH # 0.8 (1.2-3.4); LYMPH % 25.7 % (22.0-35.0); MEAN CELL VOLUME 96.9 fl (80.0-105.0); MEAN CORPUSCULAR HEMOGLOBIN 32.3 pg (25.0-35.0); MEAN CORPUSCULAR HGB CONC 33.3 g/dl (31.0-37.0); MONO # 0.1 (0.1-0.6); MONO % 4.3 % (1.0-6.0); RED CELL DISTRIBUTION WIDTH 16.7 % (11.5-14.5)
[2016-10-07 05:30] LABS: ALB/GLOB RATIO 1.2 (1.1-1.8); BILIRUBIN,TOTAL 2.6 mg/dL (0.2-1.3); PHOSPHOROUS 3.5 mg/dL (2.5-4.5); TOTAL PROTEIN 4.8 g/dL (5.8-8.3)
[2016-10-07 05:32] LABS: ARTERIAL BLOOD GAS HCO3 24.9 mmol/L (21-28); ARTERIAL BLOOD GAS O2 CAPACITY 11.7 mL/dl (16-24); ARTERIAL BLOOD GAS O2 CONTENT 11.7 ML/dl (15-23); ARTERIAL BLOOD GAS PH 7.37 (7.35-7.45); ARTERIAL BLOOD HGB O2 SAT 95.9 % (95.0-98.0); CARBOXYHEMOGLOBIN 2.1 % (0.5-1.5); HHB 0.4 % (0-5); METHEMOGLOBIN 1.6 % (0.0-3.0)
[2016-10-07 05:32] LABS: INR 1.56 (0.93-1.08)
[2016-10-07] MEDS: Vancomycin 25 MG/ML PO SCH ×4 (05:54→22:02)
[2016-10-07 06:15] LABS: CALCIUM 6.9 mg/dL (8.4-10.5); POTASSIUM 2.7 mmol/L (3.6-5.0)
[2016-10-07] MEDS: Multivitamin Vitamin B Complex (Nephro-Vite) Tab PO SCH (08:23)
--- NOTE | 2016-10-07 08:50 | RAD ---
HISTORY: mech vent COMPARISON: Chest x-ray performed 10/06/16 TECHNIQUE: Chest, one view. FINDINGS: Endotracheal tube terminates approximately 6.3 cm above the ole which is not well visualized. Nasogastric tube extends to the expected location of the stomach. Numerous external wires and leads obscure evaluation of the underlying parenchyma. LUNGS: Hypoinflation. Patchy bilateral pulmonary infiltrates, right greater than left. PLEURA: No significant pleural effusion identified. No definite pneumothorax . CARDIOVASCULAR: Heart size appears within normal limits. OSSEOUS STRUCTURES: Degenerative changes. VISUALIZED UPPER ABDOMEN: Unremarkable. OTHER FINDINGS: None. IMPRESSION: Endotracheal tube terminates approximately 6.3 cm above the ole which is not well visualized. Nasogastric tube extends to the expected location of the stomach. Hypoinflation. Patchy bilateral pulmonary infiltrates, right greater than left. Recommend continued x-ray follow-up to resolution.
[2016-10-07 09:54] LABS: LDH PERITONEAL FLUID 113 U/L (<63); TOTAL PROTEIN PERITONEAL FLUID <3.0 g/dL
--- NOTE | 2016-10-07 10:30 | PN ---
DATE: 10/07/2016 SUBJECTIVE: The patient is in bed, in no acute distress. Remains intubated on the ventilator, poorly responsive. PHYSICAL EXAMINATION VITAL SIGNS: Temperature is 99, blood pressure 125/79, respiratory rate, on the vent, and heart rate 87. HEENT: Reveals ET tube in place. NECK: Supple. LUNGS: Decreased breath sounds. HEART: Normal S1 and S2. ABDOMEN: Soft. LABORATORY DATA: Reveals a white count of 3000, hemoglobin of 8, and platelets of 37,000. Chemistries reveals of BUN of 32 and creatinine of 2.5. LFTs are mildly elevated and procalcitonin is 4.12. WBC are 5-10. Complement CK is noted. Complement C4 is noted. Microbiology reveals the yeast in the sputum. Blood cultures are negative. Peritoneal fluid cultures negative. The patient had a chest x-ray today, which was ready by Dr. Diane Peralta, patchy bilateral pulmonary infiltrates, right greater than left and Cami Springer's note from yesterday is appreciated. ASSESSMENT AND PLAN: A 36-year-old male with a history of hepatitis C and respiratory failure intubated on a ventilator and respiratory acidosis, acute renal failure, spontaneous, bacterial peritonitis in a patient with hepatitis C and alcohol abuse and cirrhosis of the liver and vancomycin and meropenem and vancomycin is intermittent and review of orders. The patient is also on p.o. vancomycin for pseudomembranous colitis and spontaneous bacterial peritonitis and healthcare associated pneumonia in a patient with severe sepsis and cirrhosis, day #3 of antibiotics and elevated procalcitonin. We will follow with you. Nehemiah Aguilar MD
[2016-10-07] MEDS: Vitamins A & D Oint UD Foilpak TOP SCH (10:36)
--- NOTE | 2016-10-07 10:41 | CP.PCM.PN ---
"<Griselda Lai - Last Filed: 10/07/16 10:38> Subjective - Date & Time of Evaluation Date of Evaluation: 10/07/16 Time of Evaluation: 10:42 - Subjective Subjective: Patient has been seen and examined at bedside. No events reported overnight. Patient is sedated. ROS unable to be obtained Objective - Vital Signs/Intake and Output Vital Signs (last 24 hours): Temp Pulse Resp BP Pulse Ox 99.3 F 87 29 H 125/79 100 10/07/16 06:00 10/07/16 06:00 10/07/16 07:08 10/07/16 06:00 10/07/16 07:08 Intake and Output: 10/07/16 10/07/16 06:59 18:59 Intake Total 2503 Output Total 90 Balance 2413 - Medications Medications: Current Medications Acetaminophen (Tylenol 160mg/5ml Oral Soln) 320 mg PO Q4 PRN PRN Reason: Fever >100.4 F Last Admin: 10/04/16 13:52 Dose: 320 mg Albuterol/Ipratropium (Duoneb 3 Mg/0.5 Mg (3 Ml) Ud) 3 ml IH [id number] [facility] Last Admin: 10/07/16 07:01 Dose: 3 ml Calcium Carbonate (Caltrate) 600 mg PO DAILY [facility] Last Admin: 10/06/16 09:06 Dose: 600 mg Folic Acid (Folic Acid) 1 mg PO DAILY [facility] Last Admin: 10/06/16 09:05 Dose: 1 mg Hydrocortisone Sodium Succinate (Solu-Cortef) 50 mg IVP Q6H [facility] Last Admin: 10/07/16 08:23 Dose: 50 mg Dexmedetomidine HCl (Precedex 4 Mcg/Ml (100 Ml)) 400 mcg in 100 mls @ 3.765 mls /hr IV .Q24H PRN; Protocol; 0.2 MCG/KG/HR PRN Reason: Agitation Last Titration: 10/04/16 08:45 Dose: 0 mcg/kg/hr, 0 mls/hr Propofol (Diprivan) 1,000 mg in 100 mls @ 2.259 mls/hr IV .Q24H PRN; Protocol; 5 MCG/KG/MIN PRN Reason: TITRATE PER MD ORDER Last Titration: 10/05/16 07:05 Dose: 0 mcg/kg/min, 0 mls/hr Fentanyl Citrate (Fentanyl Citrate/Sodium Chloride 1 Mg/100 Ml) 1,000 mcg in 100 mls @ 7.5 mls/hr IV .[id number] PRN; Protocol; 75 MCG/HR PRN Reason: TITRATE PER MD ORDER Last Titration: 10/06/16 17:00 Dose: 28 mcg/hr, 2.8 mls/hr Meropenem 500 mg/ Sodium (Chloride) 100 mls @ 100 mls/hr IVPB Q8 [facility]ONI PRN Reason: Protocol Stop: 10/15/16 14:01 Last Admin: 10/07/16 05:16 Dose: 100 mls/hr Potassium Chloride (Potassium Chloride 20 Meq/100 Ml) 20 meq in 100 mls @ 50 mls/hr IVPB Q2H [facility] Stop: 10/07/16 12:29 Last Admin: 10/07/16 08:24 Dose: 50 mls/hr Lorazepam (Ativan) 2 mg IVP Q2H PRN; Protocol PRN Reason: Agitation Last Admin: 10/07/16 05:33 Dose: 2 mg Pantoprazole Sodium (Protonix Inj) 40 mg IVP DAILY [facility] Last Admin: 10/06/16 09:03 Dose: 40 mg Potassium Phos/Sodium Phos (Neutra-Phos) 1 pkt PO TID [facility] Last Admin: 10/05/16 17:36 Dose: 1 pkt Rifaximin (Xifaxan) 550 mg PO BID [facility]I PRN Reason: Protocol Last Admin: 10/06/16 18:29 Dose: 550 mg Thiamine HCl (Vitamin B1 Tab) 100 mg PO DAILY [facility] Last Admin: 10/06/16 09:06 Dose: 100 mg Vancomycin HCl (Vancocin 25 Mg/Ml (Oral Use)) 125 mg PO Q6H [facility] PRN Reason: Protocol Last Admin: 10/07/16 05:54 Dose: 125 mg Vitamin A (Vitamin A & D Oint Ud Foilpak) 1 ea TOP DAILY [facility] Last Admin: 10/06/16 11:15 Dose: 1 ea Vitamin B Complex/Vit C/Folic Acid (Nephro-Mariann) 1 tab PO 0800 [facility] Last Admin: 10/07/16 08:23 Dose: 1 tab - Labs Labs: 10/07/16 05:17 10/07/16 05:17 PT 16.9 Seconds (9.9-11.8) H 10/07/16 05:17 INR 1.56 (0.93-1.08) H 10/07/16 05:17 APTT 35.0 Seconds (23.7-30.8) H 10/07/16 05:17 - Constitutional Appears: Toxic, Chronically Ill - Head Exam Head Exam: ATRAUMATIC, NORMOCEPHALIC - Eye Exam Eye Exam: Normal appearance - ENT Exam ENT Exam: Mucous Membranes Moist - Respiratory Exam Respiratory Exam: Clear to Ausculation Bilateral - Cardiovascular Exam Cardiovascular Exam: +S1, +S2 - GI/Abdominal Exam GI & Abdominal Exam: Distended, Normal Bowel Sounds, Organomegaly. absent: Tenderness - Extremities Exam Extremities Exam: Normal Capillary Refill. absent: Pedal Edema - Additional Findings Additional findings: Sedated. Assessment and Plan - Assessment and Plan (Free Text) Assessment: 56-year-old male with a PMHx of EtOh abuse and cirrhosis who was is admitted with alcohol withdrawal symptoms. Plan: 1. Hypercapnic respiratory failure. -Intubated on 10/05. FIO2= 30%. End tidal C02=35 | -Patient is sedated. -Patient is normotensive; Currently off pressors. 2. Acute renal failure; Urine output is decreasing. I/Y=4196/40 nephrology consulted Recs appreciated. 3. HyperKalemia (Acute) -Repletion| K-Carlos currently Active. -Follow up Potassium 3. Ascites; -s/p 2 L of ascitic fluid removed. Culture shows no growth after 24 hours. 4. Hepatic encephalopathy; -continue rifaximin. 5. Anemia - Stool for occult blood is positive on 10/05. -Status post 3 unit PRBC transfusion. -Coagulopathy: status post FFP transfusion on 10/05. -Thrombocytopenia 1 unit platelet transfusion ordered on 10/06. Plts 37 today. Consider transfusion if Plts<20. Anticipation of procedure under 100. Monitor for bleeding. 6. C. difficile -Cont. PO Vancomycin. -Antigen +/Toxin - -repeat cultures pending 7. Sepsis/pneumonia -continue meropenem. ID consulted, recs appreciated. Dispo: prognosis is poor. Case discussed with family by ICU team. Palliative care evaluation requested. Added Accuchecks Q4. Case discussed and reviewed with Attending Griselda Lai - PGY-1 <Irfan MD,Jacob - Last Filed: 10/07/16 12:28> Objective - Vital Signs/Intake and Output Vital Signs (last 24 hours): Temp Pulse Resp BP Pulse Ox 99.3 F 87 29 H 125/79 100 10/07/16 06:00 10/07/16 06:00 10/07/16 07:08 10/07/16 06:00 10/07/16 07:08 Intake and Output: 10/07/16 10/07/16 06:59 18:59 Intake Total 2503 Output Total 90 Balance 2413 - Medications Medications: Current Medications Acetaminophen (Tylenol 160mg/5ml Oral Soln) 320 mg PO Q4 PRN PRN Reason: Fever >100.4 F Last Admin: 10/04/16 13:52 Dose: 320 mg Albuterol/Ipratropium (Duoneb 3 Mg/0.5 Mg (3 Ml) Ud) 3 ml IH [id number] [facility] Last Admin: 10/07/16 07:01 Dose: 3 ml Calcium Carbonate (Caltrate) 600 mg PO DAILY [facility] Last Admin: 10/06/16 09:06 Dose: 600 mg Folic Acid (Folic Acid) 1 mg PO DAILY [facility] Last Admin: 10/07/16 10:36 Dose: 1 mg Hydrocortisone Sodium Succinate (Solu-Cortef) 50 mg IVP Q6H [facility] Last Admin: 10/07/16 08:23 Dose: 50 mg Dexmedetomidine HCl (Precedex 4 Mcg/Ml (100 Ml)) 400 mcg in 100 mls @ 3.765 mls /hr IV .Q24H PRN; Protocol; 0.2 MCG/KG/HR PRN Reason: Agitation Last Titration: 10/04/16 08:45 Dose: 0 mcg/kg/hr, 0 mls/hr Propofol (Diprivan) 1,000 mg in 100 mls @ 2.259 mls/hr IV .Q24H PRN; Protocol; 5 MCG/KG/MIN PRN Reason: TITRATE PER MD ORDER Last Titration: 10/05/16 07:05 Dose: 0 mcg/kg/min, 0 mls/hr Fentanyl Citrate (Fentanyl Citrate/Sodium Chloride 1 Mg/100 Ml) 1,000 mcg in 100 mls @ 7.5 mls/hr IV .[id number] PRN; Protocol; 75 MCG/HR PRN Reason: TITRATE PER MD ORDER Last Titration: 10/06/16 17:00 Dose: 28 mcg/hr, 2.8 mls/hr Meropenem 500 mg/ Sodium (Chloride) 100 mls @ 100 mls/hr IVPB Q8 [facility]ONI PRN Reason: Protocol Stop: 10/15/16 14:01 Last Admin: 10/07/16 05:16 Dose: 100 mls/hr Potassium Chloride (Potassium Chloride 20 Meq/100 Ml) 20 meq in 100 mls @ 50 mls/hr IVPB Q2H [facility] Stop: 10/07/16 12:29 Last Admin: 10/07/16 10:31 Dose: 50 mls/hr Potassium Chloride 40 meq/ (Sodium Chloride) 1,020 mls @ 125 mls/hr IV .Q8H10M TONI Lorazepam (Ativan) 2 mg IVP Q2H PRN; Protocol PRN Reason: Agitation Last Admin: 10/07/16 05:33 Dose: 2 mg Pantoprazole Sodium (Protonix Inj) 40 mg IVP DAILY [facility] Last Admin: 10/07/16 10:36 Dose: 40 mg Potassium Phos/Sodium Phos (Neutra-Phos) 1 pkt PO TID [facility] Last Admin: 10/05/16 17:36 Dose: 1 pkt Rifaximin (Xifaxan) 550 mg PO BID [facility] PRN Reason: Protocol Last Admin: 10/07/16 10:37 Dose: 550 mg Thiamine HCl (Vitamin B1 Tab) 100 mg PO DAILY [facility] Last Admin: 10/07/16 10:37 Dose: 100 mg Vancomycin HCl (Vancocin 25 Mg/Ml (Oral Use)) 125 mg PO Q6H [facility] PRN Reason: Protocol Last Admin: 10/07/16 10:32 Dose: 125 mg Vitamin A (Vitamin A & D Oint Ud Foilpak) 1 ea TOP DAILY [facility] Last Admin: 10/07/16 10:36 Dose: 1 ea Vitamin B Complex/Vit C/Folic Acid (Nephro-Mariann) 1 tab PO 0800 [facility] Last Admin: 10/07/16 08:23 Dose: 1 tab - Labs Labs: 10/07/16 05:17 10/07/16 05:17 PT 16.9 Seconds (9.9-11.8) H 10/07/16 05:17 INR 1.56 (0.93-1.08) H 10/07/16 05:17 APTT 35.0 Seconds (23.7-30.8) H 10/07/16 05:17 Attending/Attestation - Attestation I have personally seen and examined this patient.: Yes I have fully participated in the care of the patient.: Yes I have reviewed all pertinent clinical information, including history, physical exam and plan: Yes Notes (Text): 10/07/16 12:22 Patient seen and examined with resident in ICU. Patient is a 56-year-old male with a history of alcohol abuse, cirrhosis is admitted with alcohol withdrawal symptoms, severe Hypokalemia and Fever 104 F. Patient was intubated secondary to hypercapnic respiratory failure. Patient is sedated. hypotension is improved. off pressor. Acute renal failure;Urine output is decreasing.Creatinin is 2,5. nephrology evaluation appreciated. Ascites; status post 2 L of ascitic fluid removed. culture results pending. Pancytopenia due to Chronic liver disease . Anemia; stool for occult blood is positive. Status post 3 unit PRBC transfusion.Hemoglobin is stable. coagulopathy; status post FFP transfusion. Thrombocytopenia; 1 unit platelet transfusion ordered.Platelet count is stable. Patient has Hypokalemia.He is getting repelacement, Sepsis/pneumonia; continue meropenem. .ID evaluation appreciated. prognosis is poor. 10/07/16 12:27"
--- NOTE | 2016-10-07 12:34 | PN ---
DATE: 10/07/2016 SUBJECTIVE: The patient is sedated on ventilator support, FiO2 is 40%. He is on fentanyl for sedation and getting IV fluids. The patient is hemodynamically stable. PHYSICAL EXAMINATION: VITAL SIGNS: Temperature is 99, pulse is 87, respirations are 25, and blood pressure is 125/79. SKIN: Warm and dry. HEENT: Head; atraumatic and normocephalic. Eyes; reactive to light. Ear, nose and throat seem to be within normal limits. NECK: Supple. No JVD. No thyroid enlargement. No lymph nodes. HEART: Has a regular rate and rhythm. Normal S1 and S2. LUNGS: Reveal mild decreased breath sounds bilaterally. ABDOMEN: Soft but somewhat distended. Decreased bowel sounds. GENITALIA AND RECTAL: Deferred. MUSCULOSKELETAL: No joint deformities. EXTREMITIES: Reveal 1+ lower extremity edema. NEUROLOGIC: He is sedated on the ventilator. LABORATORY DATA: Reveal a white count of 3.0, hemoglobin is 8.2, hematocrit 24.6 with platelets of 37,000. As far as his PT is 16.9, INR is 1.56 and PTT is 35.0. Arterial blood gas reveals the pH of 7.37, pCO2 of 43 and pO2 of 117. Sodium is 143, potassium 2.7, chloride 110, CO2 of 24 with a BUN of 32, creatinine of 2.5, and a glucose is 108. IMPRESSION: This patient has respiratory failure requiring ventilator support, FiO2 is 40%. He has a history of EtOH abuse and cirrhosis and at this time has diagnosed C. diif colitis and anemia as well as acute renal failure, thrombocytopenia, coagulopathy as well as hypokalemia. The patient has hypercapnic respiratory failure and history of chronic obstructive pulmonary disease. PLAN: We will continue with ventilator support and treat aggressively and decrease the FiO2 as the patient tolerates. We will correct the potassium and follow the lites. We will follow his hemoglobin as well as his platelet count closely. We will get chest x-ray and arterial blood gas and continue with fentanyl IV. The patient is being followed by infectious disease and he is on meropenem and vancomycin at this time. We will continue with the Solu-Cortef and Protonix, and the patient will be followed with chest x-ray and arterial blood gas. We will continue to treat aggressively along with the other consultants and the primary care doc. Elver Quintero MD [facility] # [id number]
[2016-10-07] MEDS ORDERED: methylPREDNISolone 1 GM in Sodium Chloride 0.9% 250 ML IV SCH (14:00)
[2016-10-07 14:30] LABS: BASO # 0.01 K/mm3 (0.0-2.0); BASO % 0.4 % (0.0-3.0); GRAN # 1.92 (1.4-6.5); GRAN % 69.1 % (50.0-68.0); HEMATOCRIT 25.3 % (42.0-52.0); LYMPH # 0.7 (1.2-3.4); LYMPH % 25.5 % (22.0-35.0); MEAN CELL VOLUME 97.3 fl (80.0-105.0); MEAN CORPUSCULAR HEMOGLOBIN 32.3 pg (25.0-35.0); MEAN CORPUSCULAR HGB CONC 33.2 g/dl (31.0-37.0); MEAN PLATELET VOLUME 11.6 fl (7.0-11.0); MONO # 0.1 (0.1-0.6); RED CELL DISTRIBUTION WIDTH 16.7 % (11.5-14.5)
[2016-10-07 14:32] LABS: WHITE BLOOD COUNT 2.8 10^3/ul (4.5-11.0)
[2016-10-07 14:43] LABS: ALB/GLOB RATIO 1.2 (1.1-1.8); BILIRUBIN,TOTAL 2.6 mg/dL (0.2-1.3); POTASSIUM 3.1 mmol/L (3.6-5.0); TOTAL PROTEIN 4.6 g/dL (5.8-8.3)
[2016-10-07 14:45] LABS: CALCIUM 6.8 mg/dL (8.4-10.5)
[2016-10-07] MEDS ORDERED: Potassium Chloride 40 mEq/30 ml LIQ UD PO ONE (15:14)
[2016-10-07] MEDS: Fentanyl 1000mcg/100ml NS 1,000 MCG/100 ML BAG IV PRN (23:02)
[2016-10-08] MEDS: Albuterol-Ipratrop 3 mg / 0.5 (3 ml) UD IH SCH ×4 (02:02→19:53)
[2016-10-08 05:52] LABS: ARTERIAL BLOOD GAS HCO3 20.7 mmol/L (21-28); ARTERIAL BLOOD GAS O2 CAPACITY 13.4 mL/dl (16-24); ARTERIAL BLOOD GAS O2 CONTENT 13.4 ML/dl (15-23); ARTERIAL BLOOD GAS PH 7.29 (7.35-7.45); ARTERIAL BLOOD HGB O2 SAT 97.4 % (95.0-98.0); CARBOXYHEMOGLOBIN 1.8 % (0.5-1.5); HHB -0.1 % (0-5); METHEMOGLOBIN 0.9 % (0.0-3.0)
[2016-10-08] MEDS: Vancomycin 25 MG/ML PO SCH ×4 (06:00→23:56)
[2016-10-08 06:04] LABS: BASO # 0.01 K/mm3 (0.0-2.0); BASO % 0.3 % (0.0-3.0); GRAN # 2.54 (1.4-6.5); GRAN % 77.2 % (50.0-68.0); LYMPH # 0.6 (1.2-3.4); LYMPH % 18.2 % (22.0-35.0); MEAN CELL VOLUME 98.3 fl (80.0-105.0); MEAN CORPUSCULAR HEMOGLOBIN 32.5 pg (25.0-35.0); MEAN CORPUSCULAR HGB CONC 33.1 g/dl (31.0-37.0); MEAN PLATELET VOLUME 12.4 fl (7.0-11.0); MONO # 0.1 (0.1-0.6); MONO % 4.3 % (1.0-6.0); RED CELL DISTRIBUTION WIDTH 16.6 % (11.5-14.5); WHITE BLOOD COUNT 3.3 10^3/ul (4.5-11.0)
[2016-10-08] MEDS: Meropenem 500 MG in Sodium Chloride 0.9% 100 ML IVPB SCH ×2 (06:08→14:07)
[2016-10-08 06:14] LABS: ALB/GLOB RATIO 1.3 (1.1-1.8); BILIRUBIN,TOTAL 2.7 mg/dL (0.2-1.3); MAGNESIUM 2.1 mg/dL (1.7-2.2); PHOSPHOROUS 4.2 mg/dL (2.5-4.5); POTASSIUM 3.5 mmol/L (3.6-5.0)
[2016-10-08 06:15] LABS: INR 1.49 (0.93-1.08); PARTIAL THROMBOPLASTIN TIME 30.3 Seconds (23.7-30.8)
--- NOTE | 2016-10-08 09:16 | RAD ---
HISTORY: mech vent COMPARISON: Chest x-ray performed 10/07/16 TECHNIQUE: Chest, one view. FINDINGS: Endotracheal tube terminates approximately 7.4 cm above the level the ole. Nasogastric tube extends expected location of the stomach. Right-sided central venous catheter terminates at the expected location of the SVC. LUNGS: Increasing medial left lucille thorax and persistent right medial lower lobe hazy, patchy opacities in the bat wing type distribution. Correlate clinically for edema or infection. PLEURA: No significant pleural effusion identified. No definite pneumothorax . CARDIOVASCULAR: Heart size appears within normal limits. OSSEOUS STRUCTURES: Degenerative changes. VISUALIZED UPPER ABDOMEN: Unremarkable. OTHER FINDINGS: None. IMPRESSION: Endotracheal tube terminates approximately 7.4 cm above the level the ole ; ideal positioning 3 cm above the ole. Nasogastric tube extends expected location of the stomach. Right-sided central venous catheter terminates at the expected location of the SVC. Increasing medial left lucille thorax and persistent right medial lower lobe hazy, patchy opacities in the bat wing type distribution. Correlate clinically for edema or infection. Findings discussed with Dr. Falk on 10/08/16 at 9:08 a.m.
[2016-10-08] MEDS: Vitamins A & D Oint UD Foilpak TOP SCH (09:42)
--- NOTE | 2016-10-08 10:16 | PN ---
MANAGER DATA NOTE DATE: 10/08/2016 SUBJECTIVE: The patient is sedated on the ventilator with FIO2 of 40% At this time, he is getting NG tube feedings and note that he is tolerating them well. The patient has little to no urine output. Renal is aware. It is felt that he may have acute glomerulonephritis and has been given Solu-Medrol 1000 mg and will be given that for the next 3 days. The patient at this time continues to have severe coagulopathy and eventually most likely will get dialysis and catheters will be placed at that time. At this time, he is being followed closely by Renal. Hemodynamically stable and as stated continues to require ventilator support. O2 saturation is good with FIO2 of 40%. PHYSICAL EXAMINATION VITAL SIGNS: His temperature is 97.2, pulse is 88, respirations are 26, and his blood pressure is 105/53. SKIN: Warm and dry. HEAD: Atraumatic and normocephalic. EYES: Reactive to light. EAR, NOSE, AND THROAT: Seem to be within normal limits. NECK: Supple. No JVD. No thyroid enlargement. No lymph nodes. CARDIOPULMONARY: Heart has regular rate and rhythm. Normal S1 and S2. LUNGS: Reveal mild rhonchi bilaterally. ABDOMEN: Soft, decreased bowel sounds. Mildly distended. GENITOURINARY: Deferred. RECTAL: Deferred. MUSCULOSKELETAL: No joint deformity EXTREMITIES: Reveal positive lower extremity edema. NEUROLOGIC: He is sedated, on the ventilator. LABORATORY DATA: As far as to the laboratories are concerned, his white count is 3.3, hemoglobin is 9.6, hematocrit 29.0 with platelets of 38,000 The patient/s PT is 16.1, INR is 1.49, and PTT is 30.3. Arterial blood gas revealed a pH of 7.29, PCO2 of 43, PO2 of 135. His sodium is 145, potassium is 3.5, chloride 112, CO2 of 22 with a BUN of 44, creatinine of 3.2, and glucose of 150. Chest x-ray continues to shows patchy bilateral pulmonary infiltrates, right greater than left. IMPRESSION: As far as my impression, this patient has respiratory failure requiring ventilator support. FIO2 continues to be at 40%. He has a history of ETOH abuse and cirrhosis and has been diagnosed with C. difficile colitis. The patient has anemia as well as acute renal failure, thrombocytopenia, coagulopathy, and hypokalemia. The patient was noted prior to intubation to have hypercapnic respiratory failure with chronic obstructive pulmonary disease. It is felt that he may have acute glomerulonephritis and is noted to have metabolic acidosis at this time. PLAN: As far as our plan, we will continue with ventilator support and will correct the potassium as needed. The patient is getting Solu-Medrol IV. We will continue with the NG tube feedings and he is also getting antibiotics of meropenem and vancomycin. The patient is on Protonix and we will follow his chest x-ray and arterial blood gas closely. He is also on fentanyl IV. Renal is following closely and we will make the decision when dialysis is appropriate. We will continue to treat aggressively and follow closely along with the other consultants and primary care doctor. Elver Quintero MD
--- NOTE | 2016-10-08 11:21 | PN ---
DATE: 10/08/2016 SUBJECTIVE: The patient is in bed, in no acute distress, nontoxic. PHYSICAL EXAMINATION: VITAL SIGNS: Temperature 98, blood pressure 100/60, respiratory rate, on the vent, and heart rate of 95. HEENT: ET tube in place. NECK: Supple. LUNGS: Decreased breath sounds. HEART: Normal S1 and S2. ABDOMEN: Soft and nontender. LABORATORY DATA: Reveals a white count of 3.3, hemoglobin of 9, and platelets of 38. Chemistry reveals a BUN of 44, and creatinine of 3.2. Repeat procalcitonin is 4.12. Urinalysis is noted. Microbiology has revealed that there is yeast in the blood. I was not notified of this. There is yeast in the sputum. ASSESSMENT AND PLAN: He is a 56-year-old male with history of hepatitis C, respiratory failure, intubated on the ventilator, respiratory acidosis, acute renal failure with spontaneous bacterial peritonitis with hepatitis C and alcohol abuse and cirrhosis of the liver on vancomycin, meropenem now with fungemia. Recommend changing all the lines and we will add Mycamine and this patient with severe cirrhosis and severe sepsis with day #4 of vancomycin, intermittently meropenem and we will add Mycamine. Should have all lines changed. Nehemiah Aguilar MD
[2016-10-08] MEDS: Micafungin 100 MG in Sodium Chloride 0.9% 100 ML IV SCH (11:24)
[2016-10-08] MEDS: Multivitamin Vitamin B Complex (Nephro-Vite) Tab PO SCH (11:29)
--- NOTE | 2016-10-08 11:40 | CP.PCM.PN ---
"<Griselda Lai - Last Filed: 10/08/16 11:37> Subjective - Date & Time of Evaluation Date of Evaluation: 10/08/16 Time of Evaluation: 11:37 - Subjective Subjective: Patient has been seen and examined at bedside. No events reported overnight. Patient is sedated. ROS unable to be obtained. Urine today is dark red. Objective - Vital Signs/Intake and Output Vital Signs (last 24 hours): Temp Pulse Resp BP Pulse Ox 97.3 F L 93 H 35 H 97/51 L 97 10/08/16 11:00 10/08/16 11:00 10/08/16 07:17 10/08/16 00:00 10/08/16 11:00 Intake and Output: 10/08/16 10/08/16 06:59 18:59 Intake Total 78 36.6 Balance 78 36.6 - Medications Medications: Current Medications Acetaminophen (Tylenol 160mg/5ml Oral Soln) 320 mg PO Q4 PRN PRN Reason: Fever >100.4 F Last Admin: 10/04/16 13:52 Dose: 320 mg Albuterol/Ipratropium (Duoneb 3 Mg/0.5 Mg (3 Ml) Ud) 3 ml IH [id number] [facility] Last Admin: 10/08/16 07:04 Dose: 3 ml Folic Acid (Folic Acid) 1 mg PO DAILY [facility] Last Admin: 10/08/16 09:42 Dose: 1 mg Fentanyl Citrate (Fentanyl Citrate/Sodium Chloride 1 Mg/100 Ml) 1,000 mcg in 100 mls @ 7.5 mls/hr IV .[id number] PRN; Protocol; 75 MCG/HR PRN Reason: TITRATE PER MD ORDER Last Titration: 10/08/16 08:34 Dose: 28 mcg/hr, 2.8 mls/hr Meropenem 500 mg/ Sodium (Chloride) 100 mls @ 100 mls/hr IVPB Q8 [facility]ON[facility] PRN Reason: Protocol Stop: 10/15/16 14:01 Last Admin: 10/08/16 06:08 Dose: 100 mls/hr Potassium Chloride 40 meq/ (Sodium Chloride) 1,020 mls @ 125 mls/hr IV .[id number] [facility] Last Admin: 10/08/16 05:00 Dose: 125 mls/hr Methylprednisolone 1 gm/ (Sodium Chloride) 250 mls @ 250 mls/hr IV Q24H [facility]ON[facility] Stop: 10/09/16 14:59 Last Admin: 10/07/16 16:45 Dose: 250 mls/hr Micafungin Sodium 100 mg/ (Sodium Chloride) 100 mls @ 100 mls/hr IV DAILY [facility] PRN Reason: Protocol Stop: 10/17/16 10:01 Last Admin: 10/08/16 11:24 Dose: 100 mls/hr Potassium Chloride (Potassium Chloride 20 Meq/100 Ml) 20 meq in 100 mls @ 50 mls/hr IVPB ONCE ONE Stop: 10/08/16 13:16 Last Admin: 10/08/16 11:27 Dose: 50 mls/hr Lorazepam (Ativan) 2 mg IVP Q2H PRN; Protocol PRN Reason: Agitation Last Admin: 10/07/16 05:33 Dose: 2 mg Pantoprazole Sodium (Protonix Inj) 40 mg IVP DAILY [facility] Last Admin: 10/08/16 09:43 Dose: 40 mg Rifaximin (Xifaxan) 550 mg PO BID [facility]ONI PRN Reason: Protocol Last Admin: 10/08/16 09:42 Dose: 550 mg Thiamine HCl (Vitamin B1 Tab) 100 mg PO DAILY [facility] Last Admin: 10/08/16 09:44 Dose: 100 mg Vancomycin HCl (Vancocin 25 Mg/Ml (Oral Use)) 125 mg PO Q6H [facility]ONI PRN Reason: Protocol Last Admin: 10/08/16 06:00 Dose: 125 mg Vitamin A (Vitamin A & D Oint Ud Foilpak) 1 ea TOP DAILY [facility] Last Admin: 10/08/16 09:42 Dose: 1 ea Vitamin B Complex/Vit C/Folic Acid (Nephro-Mariann) 1 tab PO 0800 [facility] Last Admin: 10/08/16 11:29 Dose: 1 tab - Labs Labs: 10/08/16 06:00 10/08/16 06:00 PT 16.1 Seconds (9.9-11.8) H 10/08/16 06:00 INR 1.49 (0.93-1.08) H 10/08/16 06:00 APTT 30.3 Seconds (23.7-30.8) 10/08/16 06:00 - Constitutional Appears: No Acute Distress, Chronically Ill - Head Exam Head Exam: ATRAUMATIC, NORMOCEPHALIC - Eye Exam Eye Exam: Normal appearance - ENT Exam ENT Exam: Mucous Membranes Moist - Respiratory Exam Respiratory Exam: Rales, NORMAL BREATHING PATTERN. absent: Clear to Ausculation Bilateral - Cardiovascular Exam Cardiovascular Exam: +S1, +S2. absent: Tachycardia - GI/Abdominal Exam GI & Abdominal Exam: Soft, Hypoactive Bowel Sounds. absent: Distended, Firm, Tenderness - Extremities Exam Extremities Exam: Normal Capillary Refill. absent: Pedal Edema - Neurological Exam Neurological Exam: absent: Alert, Awake, Oriented x3 - Skin Skin Exam: Mottled Assessment and Plan - Assessment and Plan (Free Text) Assessment: 56-year-old male with a PMHx of EtOh abuse and cirrhosis who was is admitted with alcohol withdrawal symptoms Plan: 1. Hypercapnic respiratory failure. -Intubated on 10/05.| Today: FIO2= 40%. End tidal C02=35, OZ=[id number]. 02 Sat=97% | -Patient is sedated. -Patient is normotensive (116/66); currently off pressors. 2. Acute renal failure likely 2/2 Acute glomerulonephritis. -Solumedrol (day 1) for 3 days Added per ICU team -Possible need for dialysis soon Urine output is decreasing. Urine output 25ml. Urine dark red today. Nephrology consulted Recs appreciated. 3. Positive Blood and Sputum Cultures (Preliminary result)/Possible Pneumonia -continue meropenem and Vancomycin -ID consulted. Recs appreciated. Recommended all lines changed. -Added Micafungin per ID for positive yeast cultures. 4. HyperKalemia (Acute) -Repleted -Follow up Potassium 5. Ascites -s/p 2 L of ascitic fluid removed (10/05). Culture shows no growth after 48 hours. 6. Hepatic encephalopathy; -continue rifaximin. 7. Anemia - Stool for occult blood is positive on 10/05. -Status post 3 unit PRBC transfusion. -Coagulopathy: status post FFP transfusion on 10/05. -Thrombocytopenia 1 unit platelet transfusion ordered on 10/06. Plts 38 s/p 2 units of plts yesterday. Consider transfusion if Plts<20. Anticipation of procedure under 100. Monitor for bleeding. 8. C. difficile -Cont. PO Vancomycin. -Antigen +/Toxin - Dispo: prognosis is poor. Case discussed with family by ICU team. Palliative care evaluation requested. Added Accuchecks Q4 (10/07). Currently tolerating diet throught NG tube. ID recommended changing all lines. Discussion for dialysis began. Will discuss with ICU team if patient is candidate for any procedures. Case discussed and reviewed with Attending Griselda Lai - PGY-1 <Mell Gauthier - Last Filed: 10/08/16 15:02> Objective - Vital Signs/Intake and Output Vital Signs (last 24 hours): Temp Pulse Resp BP Pulse Ox 97.2 F L 85 35 H 97/51 L 99 10/08/16 12:00 10/08/16 12:00 10/08/16 07:17 10/08/16 00:00 10/08/16 12:00 Intake and Output: 10/08/16 10/08/16 06:59 18:59 Intake Total 78 36.6 Balance 78 36.6 - Medications Medications: Current Medications Acetaminophen (Tylenol 160mg/5ml Oral Soln) 320 mg PO Q4 PRN PRN Reason: Fever >100.4 F Last Admin: 10/04/16 13:52 Dose: 320 mg Albuterol/Ipratropium (Duoneb 3 Mg/0.5 Mg (3 Ml) Ud) 3 ml IH [id number] [facility] Last Admin: 10/08/16 13:26 Dose: 3 ml Folic Acid (Folic Acid) 1 mg PO DAILY [facility] Last Admin: 10/08/16 09:42 Dose: 1 mg Fentanyl Citrate (Fentanyl Citrate/Sodium Chloride 1 Mg/100 Ml) 1,000 mcg in 100 mls @ 7.5 mls/hr IV .[id number] PRN; Protocol; 75 MCG/HR PRN Reason: TITRATE PER MD ORDER Last Titration: 10/08/16 08:34 Dose: 28 mcg/hr, 2.8 mls/hr Micafungin Sodium 100 mg/ (Sodium Chloride) 100 mls @ 100 mls/hr IV DAILY [facility] PRN Reason: Protocol Stop: 10/17/16 10:01 Last Admin: 10/08/16 11:24 Dose: 100 mls/hr Sodium Chloride (Sodium Chloride 0.45%) 1,000 mls @ 80 mls/hr IV .[id number] [facility] Last Admin: 10/08/16 12:31 Dose: 80 mls/hr Meropenem 250 mg/ Sodium (Chloride) 100 mls @ 100 mls/hr IVPB Q12H [facility] PRN Reason: Protocol Stop: 10/17/16 13:31 Lorazepam (Ativan) 2 mg IVP Q2H PRN; Protocol PRN Reason: Agitation Last Admin: 10/07/16 05:33 Dose: 2 mg Pantoprazole Sodium (Protonix Inj) 40 mg IVP DAILY [facility] Last Admin: 10/08/16 09:43 Dose: 40 mg Rifaximin (Xifaxan) 550 mg PO BID [facility] PRN Reason: Protocol Last Admin: 10/08/16 09:42 Dose: 550 mg Thiamine HCl (Vitamin B1 Tab) 100 mg PO DAILY [facility] Last Admin: 10/08/16 09:44 Dose: 100 mg Vancomycin HCl (Vancocin 25 Mg/Ml (Oral Use)) 125 mg PO Q6H [facility] PRN Reason: Protocol Last Admin: 10/08/16 12:29 Dose: 125 mg Vitamin A (Vitamin A & D Oint Ud Foilpak) 1 ea TOP DAILY [facility] Last Admin: 10/08/16 09:42 Dose: 1 ea Vitamin B Complex/Vit C/Folic Acid (Nephro-Mariann) 1 tab PO 0800 [facility] Last Admin: 10/08/16 11:29 Dose: 1 tab - Labs Labs: 10/08/16 06:00 10/08/16 06:00 PT 16.1 Seconds (9.9-11.8) H 10/08/16 06:00 INR 1.49 (0.93-1.08) H 10/08/16 06:00 APTT 30.3 Seconds (23.7-30.8) 10/08/16 06:00 Attending/Attestation - Attestation I have personally seen and examined this patient.: Yes I have fully participated in the care of the patient.: Yes I have reviewed all pertinent clinical information, including history, physical exam and plan: Yes Notes (Text): 10/08/16 14:58 Attending note; Patient seen and examined with resident in ICU. patient is a 56-year-old male with a history of alcohol abuse, cirrhosis is admitted with alcohol withdrawal symptoms. Patient was intubated secondary to hypercapnic respiratory failure. on 50% fio2 now.Saturating well. Patient is sedated. hypotension resolved. Off pressors. Acute renal failure;Urine output is decreasing.nephrology evaluation appreciated. possible HTN vs glomerulonephritis secondary to hep C suspected. Started on Steroids. Ascites; status post 2 L of ascitic fluid removed. culture results pending. hepatic encephalopathy; continue rifaximin. anemia; stool for occult blood is positive. Status post 3 unit PRBC transfusion. coagulopathy; status post FFP transfusion. Thrombocytopenia; 1 unit platelet transfusion ordered. monitor for bleeding. fungemia; started on mucofungin. We will remove A-line. We will change Picc line after platelet transfusion. PIcc team re evaluation ordered. C. difficile; continue by mouth vancomycin. Sepsis/pneumonia; continue meropenem. the diagnosis and treatment plan discussed with patient's daughter and patient' s in detail. The diagnosis and prognosis also discussed with the family by medical research scientist. patient is currently full code. Palliative care evaluation appreciated. Prognosis is poor. 10/08/16 14:59"
[2016-10-08] MEDS: Sodium Chloride 0.45% 1,000 ML IV SCH (12:31)
--- NOTE | 2016-10-08 13:53 | PN ---
NEPHROLOGY FOLLOWUP NOTE DATE: SUBJECTIVE: A 56-year-old male with a past medical history of hepatitis C, alcohol abuse with liver cirrhosis admitted initially with alcohol withdrawal. Hospital course complicated by hypotension, SIRS/sepsis, hypercapnic and hypoxemic respiratory failure. Nephrology following for acute renal failure. The patient is still with minimal urine output per nursing staff, started on tube feeds yesterday with Nepro, however, held today due to high residual volumes. Has not had anymore diarrhea since past two plus days. PHYSICAL EXAMINATION: GENERAL: Sedated, opens eyes to tactile stimulus, not following commands. VITAL SIGNS: This morning blood pressure 97/51, heart rate 93, respirations 35, temperature 97.2, O2 sat 98% on 40% FiO2 via mechanical respiration. HEENT: Moist mucous membranes. RESPIRATORY: Lungs are clear to auscultation bilaterally. No rhonchi, no wheezes, no rales. HEART: S1 and S2 normal. No murmurs, no gallops, no rubs. ABDOMEN: Distended, soft, mild tenderness. : No bladder distention. Vyas in place. EXTREMITIES: Moderately edematous. Legs extending to abdominal wall. No cyanosis. SKIN: Warm to touch. Mottle appearance of distal lower extremities. LABORATORY DATA: This morning, CBC: WBC 3.3, hemoglobin 9.6, hematocrit 29.0, platelets 38. Chemistry panel: Sodium 145, potassium 3.5, chloride 112, bicarbonate 22, BUN 44, creatinine 3.2, glucose 150, calcium 7.0, phosphorus 4.2, albumin 2.8. ABG: PH 7.29, pCO2 43, pO2 135, bicarbonate 20.7. Chest x-ray showing increased bilateral fluffy infiltrates/edema. ASSESSMENT AND PLAN: 1. 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 Started on puffs Solu-Medrol 1 gram daily yesterday with plan to continue for two more days. The patient ideally needs renal biopsy, however, with marked thrombocytopenia, may not be safe currently. However, if biopsy is showing cryoglobulinemia then aggressive measures need to be taken in order to recover renal function and include prolonged immunosuppressive therapy with either Rituximab or Cytoxan and urine plasmapheresis. Renal function continues to worsen, although in rise of serum creatinine is relatively low and that they reflect slow protein catabolic rate in the setting of not being on tube feeds until yesterday. No urgent indication for initiating hemodialysis currently. However, we will need to reassess tomorrow and likely we will need to initiate dialysis in the next 24 to 48 hours. 2. Sepsis. The patient with yeast and blood and sputum, started on micafungin today, no renal dose adjustment necessary. Question of whether steroids should be continued in the setting. Currently, the patient is not on pressors and maintaining his hemodynamic status; therefore, we will continue steroids as above for now, also on meropenem should likely be decreased to acute 24 hour dosing for creatinine clearance less than 10. 3. Hypokalemia, improved. Recommend to stop anymore potassium supplementation as the patient is now being fed and can expect potassium to increase in the setting of acute renal failure. 4. Hypernatremia, relatively mild. Recommend to change IV fluids to half at 80 mL an hour. 5. Hepatitis C, elevated viral load previously seen. 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 We will need outpatient hepatitis C treatment. 6. Hypercapnic respiratory failure, improved. Etiology still somewhat unclear. Continue to monitor with daily gases. Critical care time spent over 35 minutes. Rusty Mcnulty MD
[2016-10-08 17:36] LABS: HEMATOCRIT 27.7 % (42.0-52.0); MEAN CELL VOLUME 98.9 fl (80.0-105.0); MEAN CORPUSCULAR HEMOGLOBIN 32.1 pg (25.0-35.0); MEAN CORPUSCULAR HGB CONC 32.5 g/dl (31.0-37.0); MEAN PLATELET VOLUME 12.3 fl (7.0-11.0); RED CELL DISTRIBUTION WIDTH 16.3 % (11.5-14.5); WHITE BLOOD COUNT 3.9 10^3/ul (4.5-11.0)
[2016-10-08 17:43] LABS: PLATELET COUNT 29 10^3/uL (120.0-450.0)
[2016-10-08 17:57] LABS: CALCIUM 7.1 mg/dL (8.4-10.5); POTASSIUM 3.6 mmol/L (3.6-5.0)
[2016-10-09] MEDS: Sodium Chloride 0.45% 1,000 ML IV SCH ×2 (00:56→13:00)
[2016-10-09] MEDS: Albuterol-Ipratrop 3 mg / 0.5 (3 ml) UD IH SCH ×4 (02:09→19:30)
[2016-10-09] MEDS: Vancomycin 25 MG/ML PO SCH ×4 (05:15→23:40)
[2016-10-09 06:13] LABS: GRAN # 3.56 (1.4-6.5); GRAN % 75.1 % (50.0-68.0); HEMATOCRIT 28.2 % (42.0-52.0); LYMPH # 0.9 (1.2-3.4); LYMPH % 18.8 % (22.0-35.0); MEAN CELL VOLUME 98.9 fl (80.0-105.0); MEAN CORPUSCULAR HEMOGLOBIN 32.3 pg (25.0-35.0); MEAN CORPUSCULAR HGB CONC 32.6 g/dl (31.0-37.0); MEAN PLATELET VOLUME 11.9 fl (7.0-11.0); MONO # 0.3 (0.1-0.6); MONO % 6.1 % (1.0-6.0); RED CELL DISTRIBUTION WIDTH 16.3 % (11.5-14.5); WHITE BLOOD COUNT 4.7 10^3/ul (4.5-11.0)
[2016-10-09 06:18] LABS: ARTERIAL BLOOD GAS HCO3 20.6 mmol/L (21-28); ARTERIAL BLOOD GAS O2 CAPACITY 14.1 mL/dl (16-24); ARTERIAL BLOOD GAS O2 CONTENT 14.1 ML/dl (15-23); ARTERIAL BLOOD GAS PH 7.26 (7.35-7.45); ARTERIAL BLOOD HGB O2 SAT 96.2 % (95.0-98.0); HHB 0.3 % (0-5); METHEMOGLOBIN 1.4 % (0.0-3.0)
[2016-10-09 06:29] LABS: PLATELET COUNT 29 10^3/uL (120.0-450.0)
[2016-10-09 06:57] LABS: ALB/GLOB RATIO 1.1 (1.1-1.8); BILIRUBIN,TOTAL 2.4 mg/dL (0.2-1.3); PHOSPHOROUS 4.8 mg/dL (2.5-4.5); POTASSIUM 3.4 mmol/L (3.6-5.0); TOTAL PROTEIN 4.9 g/dL (5.8-8.3)
[2016-10-09] MEDS ORDERED: Potassium Chloride 20 mEq/15 ml LIQ UD PO STA (08:34)
--- NOTE | 2016-10-09 08:43 | CP.CCUPN ---
<Anne-Marie Dimas - Last Filed: 10/09/16 09:55> CCU Subjective - Physician Review Events Since Last Encounter (Free Text): 10/09/16 08:42 No acute events overnight Subjective (Free Text): 10/09/16 08:45 Critical care progress note for Dr. Aj Dimas, PGY-1 Pt S & E at bedside. Pt intubated/sedated, arousable to tactile stimuli. No acute events overnight as per nursing. Critical Care Time Spent (in minutes): 35 CCU Objective - Vital Signs / Intake & Output Vital Signs (Last 4 hours): Vital Signs Temp Pulse Pulse Ox 10/09/16 08:00 95.7 F L 73 99 10/09/16 07:00 95.7 F L 75 100 10/09/16 06:00 96.1 F L 76 100 10/09/16 05:00 79 100 Intake and Output (Last 8hrs): Intake & Output 10/08/16 10/09/16 10/09/16 22:59 06:59 14:59 Intake Total 1846 960 Output Total 725 960 Balance 1121 0 Intake: IV 1546 960 Right Upper arm 1546 960 Oral 300 Output: Drainage 900 Paracentesis 900 Urine 25 60 Urethral (Terrell) 25 60 Oral Regurgitation 700 Other: Voiding Method Indwelling Catheter Indwelling Catheter - Physical Exam Physical Exam Limitations: Positive for: Other (sedated) Head: Positive for: Atraumatic, Normocephalic Pupils: Positive for: PERRL Extroacular Muscles: Positive for: EOMI Conjunctiva: Positive for: Normal Ears: Positive for: Normal Mouth: Positive for: Moist Mucous Membranes, Other (ET tube in position in oral cavity) Nose (External): Positive for: Atraumatic Neck: Positive for: Other (ET tube ). Negative for: MIDLINE TENDERNESS, Paraspinal Tenderness, Lymphadenopathy Respiratory/Chest: Positive for: Clear to Auscultation, Good Air Exchange. Negative for: Respiratory Distress, Accessory Muscle Use, Wheezes, Decreased Breath Sounds, Retracting, Rhonchi Cardiovascular: Positive for: Regular Rate and Rhythm, Normal S1, S2. Negative for: Murmurs Abdomen: Positive for: Normal Bowel Sounds, Other (Paracentesis surgical site with opening, collection bag with straw colored fluid). Negative for: Tenderness, Distention, Peritoneal Signs Genitourinary Male: Positive for: Testicle Swelling, Other (Terrell in place) Upper Extremity: Positive for: Edema (3+ pitting edema B/L UE), Other (RUE w/ PICC In place, no erythema). Negative for: Normal Inspection (Multiple areas of ecchymoses), Cyanosis Lower Extremity: Positive for: Edema (2+ Pitting edema B/L up to thighs). Negative for: Normal Inspection Neurological: Negative for: GCS=15 (intubated/sedated, unable to assess), Speech Normal Skin: Positive for: Warm, Dry, Other (Areas of serous weeping from multiple areas of skin). Negative for: Rashes, Normal Color (multiple ecchymoses over UE B/L) Psychiatric: Negative for: Alert (sedated, arousable to tactile stimuli), Oriented x 3 - Medications Active Medications: Active Medications Generic Name Dose Route Start Last Admin Trade Name Freq PRN Reason Stop Dose Admin Acetaminophen 320 mg 10/03/16 07:45 10/04/16 13:52 Tylenol 160mg/5ml Oral Soln PO 320 mg Q4 PRN Administration Fever >100.4 F Albuterol/Ipratropium 3 ml 10/05/16 08:00 10/09/16 07:14 Duoneb 3 Mg/0.5 Mg (3 Ml) Ud IH 3 ml [id number] TONI Administration Folic Acid 1 mg 10/03/16 10:00 10/08/16 09:42 Folic Acid PO 1 mg DAILY TONI Administration Fentanyl Citrate 1,000 mcg in 100 mls @ 7.5 mls/hr 10/05/16 07:39 10/08/16 08 :34 Fentanyl Citrate/Sodium Chloride 1 Mg/100 Ml IV 28 mcg/hr .[id number] PRN 2.8 mls/hr TITRATE PER MD ORDER Titration Protocol 75 MCG/HR Micafungin Sodium 100 mg/ 100 mls @ 100 mls/hr 10/08/16 10:00 10/08/16 11:24 Sodium Chloride IV 10/17/16 10:01 100 mls/hr DAILY TONI Administration Protocol Sodium Chloride 1,000 mls @ 80 mls/hr 10/08/16 12:15 10/09/16 00:56 Sodium Chloride 0.45% IV 80 mls/hr .[id number] TONI Administration Meropenem 250 mg/ Sodium 100 mls @ 100 mls/hr 10/08/16 13:30 10/09/16 00:55 Chloride IVPB 10/17/16 13:31 100 mls/hr Q12H TONI Administration Protocol Lorazepam 2 mg 10/02/16 21:28 10/07/16 05:33 Ativan IVP 2 mg Q2H PRN Administration Agitation Protocol Pantoprazole Sodium 40 mg 10/03/16 10:00 10/08/16 09:43 Protonix Inj IVP 40 mg DAILY TONI Administration Rifaximin 550 mg 10/05/16 10:00 10/08/16 09:42 Xifaxan PO 550 mg BID TONI Administration Protocol Thiamine HCl 100 mg 10/03/16 10:00 10/08/16 09:44 Vitamin B1 Tab PO 100 mg DAILY TONI Administration Vancomycin HCl 125 mg 10/03/16 11:00 10/09/16 05:15 Vancocin 25 Mg/Ml (Oral Use) PO 125 mg Q6H TONI Administration Protocol Vitamin A 1 ea 10/03/16 10:00 10/08/16 09:42 Vitamin A & D Oint Ud Foilpak TOP 1 ea DAILY TONI Administration Vitamin B Complex/Vit C/Folic Acid 1 tab 10/03/16 08:00 10/08/16 11:29 Nephro-Mariann PO 1 tab 0800 TONI Administration - Patient Studies Lab Studies: Microbiology Studies 10/05/16 21:16 Urine Culture - Final Urine,Terrell Yeast Species 10/05/16 08:23 Gram Stain - Final Peritoneal Fluid Body Fluid Culture - Preliminary NO GROWTH AFTER 3 DAYS 10/05/16 13:00 S.aureus & Coag-Neg Staph PNA FISH - Final Blood-Venous TEST NOT PERFORMED Blood Culture - Preliminary Yeast Species Gram Stain - Final Lab Studies 10/09/16 10/09/16 10/09/16 Range/Units 06:13 05:45 05:45 WBC 4.7 D (4.5-11.0) 10^3/ul RBC 2.85 L (3.5-6.1) 10^6/uL Hgb 9.2 L (14.0-18.0) g/dL Hct 28.2 L (42.0-52.0) % MCV 98.9 (80.0-105.0) fl MCH 32.3 (25.0-35.0) pg MCHC 32.6 (31.0-37.0) g/dl RDW 16.3 H (11.5-14.5) % Plt Count 29 L* (120.0-450.0) 10^3/uL Manual Plt Count (120-450) K/mm3 MPV 11.9 H (7.0-11.0) fl Gran % 75.1 H (50.0-68.0) % Lymph % (Auto) 18.8 L (22.0-35.0) % [place] % (Auto) 6.1 H (1.0-6.0) % Eos % (Auto) 0.0 L (1.5-5.0) % Baso % (Auto) 0.0 (0.0-3.0) % Gran # 3.56 (1.4-6.5) Lymph # 0.9 L (1.2-3.4) [place] # 0.3 (0.1-0.6) Eos # 0.0 (0.0-0.7) Baso # 0.00 (0.0-2.0) K/mm3 pCO2 46 H (35-45) mm/Hg pO2 160.0 H (80-100) mm/Hg HCO3 20.6 L (21-28) mmol/L ABG pH 7.26 L (7.35-7.45) ABG Total CO2 22.0 (22-28) mmol.L ABG O2 Saturation 99.7 H (95-98) % ABG O2 Content 14.1 L (15-23) ML/dl ABG Base Excess -6.3 L (-2.0-3.0) mmol/L ABG Hemoglobin 10.2 L (11.7-17.4) g/dL ABG Carboxyhemoglobin 2.0 H (0.5-1.5) % POC ABG HHb (Measured) 0.3 (0-5) % ABG Methemoglobin 1.4 (0.0-3.0) % ABG O2 Capacity 14.1 L (16-24) mL/dl Hgb O2 Saturation 96.2 (95.0-98.0) % FiO2 40.0 % Sodium 142 (132-148) mmol/L Potassium 3.4 L (3.6-5.0) mmol/L Chloride 111 H (98-107) mmol/L Carbon Dioxide 24 (21-33) mmol/L Anion Gap 10 (10-20) BUN 58 H (7-21) mg/dL Creatinine 3.6 H (0.5-1.4) mg/dL Est GFR ( Amer) 21 Est GFR (Non-Af Amer) 18 POC Glucose (mg/dL) (65-110) mg/dL Random Glucose 116 H (70-110) mg/dL Calcium 7.0 L (8.4-10.5) mg/dL Phosphorus 4.8 H (2.5-4.5) mg/dL Magnesium 2.0 (1.7-2.2) mg/dL Total Bilirubin 2.4 H (0.2-1.3) mg/dL AST 65 H (17-59) U/L ALT 50 (7-56) U/L Alkaline Phosphatase 70 (38-126) U/L Total Protein 4.9 L (5.8-8.3) g/dL Albumin 2.5 L (3.0-4.8) g/dL Globulin 2.3 gm/dL Albumin/Globulin Ratio 1.1 (1.1-1.8) Ur Random Creatinine mg/dL Ur Random Sodium meq/L Urine Microalbumin (0.0-16.6) mg/L 10/08/16 10/08/16 10/08/16 Range/Units 18:03 17:30 17:30 WBC 3.9 L (4.5-11.0) 10^3/ul RBC 2.80 L (3.5-6.1) 10^6/uL Hgb 9.0 L (14.0-18.0) g/dL Hct 27.7 L (42.0-52.0) % MCV 98.9 (80.0-105.0) fl MCH 32.1 (25.0-35.0) pg MCHC 32.5 (31.0-37.0) g/dl RDW 16.3 H (11.5-14.5) % Plt Count 29 L* (120.0-450.0) 10^3/uL Manual Plt Count (120-450) K/mm3 MPV 12.3 H (7.0-11.0) fl Gran % (50.0-68.0) % Lymph % (Auto) (22.0-35.0) % [place] % (Auto) (1.0-6.0) % Eos % (Auto) (1.5-5.0) % Baso % (Auto) (0.0-3.0) % Gran # (1.4-6.5) Lymph # (1.2-3.4) [place] # (0.1-0.6) Eos # (0.0-0.7) Baso # (0.0-2.0) K/mm3 pCO2 (35-45) mm/Hg pO2 (80-100) mm/Hg HCO3 (21-28) mmol/L ABG pH (7.35-7.45) ABG Total CO2 (22-28) mmol.L ABG O2 Saturation (95-98) % ABG O2 Content (15-23) ML/dl ABG Base Excess (-2.0-3.0) mmol/L ABG Hemoglobin (11.7-17.4) g/dL ABG Carboxyhemoglobin (0.5-1.5) % POC ABG HHb (Measured) (0-5) % ABG Methemoglobin (0.0-3.0) % ABG O2 Capacity (16-24) mL/dl Hgb O2 Saturation (95.0-98.0) % FiO2 % Sodium 143 (132-148) mmol/L Potassium 3.6 (3.6-5.0) mmol/L Chloride 111 H (98-107) mmol/L Carbon Dioxide 22 (21-33) mmol/L Anion Gap 14 (10-20) BUN 51 H (7-21) mg/dL Creatinine 3.4 H (0.5-1.4) mg/dL Est GFR ( Amer) 23 Est GFR (Non-Af Amer) 19 POC Glucose (mg/dL) 143 H (65-110) mg/dL Random Glucose 137 H (70-110) mg/dL Calcium 7.1 L (8.4-10.5) mg/dL Phosphorus (2.5-4.5) mg/dL Magnesium (1.7-2.2) mg/dL Total Bilirubin (0.2-1.3) mg/dL AST (17-59) U/L ALT (7-56) U/L Alkaline Phosphatase (38-126) U/L Total Protein (5.8-8.3) g/dL Albumin (3.0-4.8) g/dL Globulin gm/dL Albumin/Globulin Ratio (1.1-1.8) Ur Random Creatinine mg/dL Ur Random Sodium meq/L Urine Microalbumin (0.0-16.6) mg/L 10/08/16 10/08/16 10/08/16 Range/Units 16:10 16:10 12:10 WBC (4.5-11.0) 10^3/ul RBC (3.5-6.1) 10^6/uL Hgb (14.0-18.0) g/dL Hct (42.0-52.0) % MCV (80.0-105.0) fl MCH (25.0-35.0) pg MCHC (31.0-37.0) g/dl RDW (11.5-14.5) % Plt Count (120.0-450.0) 10^3/uL Manual Plt Count (120-450) K/mm3 MPV (7.0-11.0) fl Gran % (50.0-68.0) % Lymph % (Auto) (22.0-35.0) % [place] % (Auto) (1.0-6.0) % Eos % (Auto) (1.5-5.0) % Baso % (Auto) (0.0-3.0) % Gran # (1.4-6.5) Lymph # (1.2-3.4) [place] # (0.1-0.6) Eos # (0.0-0.7) Baso # (0.0-2.0) K/mm3 pCO2 (35-45) mm/Hg pO2 (80-100) mm/Hg HCO3 (21-28) mmol/L ABG pH (7.35-7.45) ABG Total CO2 (22-28) mmol.L ABG O2 Saturation (95-98) % ABG O2 Content (15-23) ML/dl ABG Base Excess (-2.0-3.0) mmol/L ABG Hemoglobin (11.7-17.4) g/dL ABG Carboxyhemoglobin (0.5-1.5) % POC ABG HHb (Measured) (0-5) % ABG Methemoglobin (0.0-3.0) % ABG O2 Capacity (16-24) mL/dl Hgb O2 Saturation (95.0-98.0) % FiO2 % Sodium (132-148) mmol/L Potassium (3.6-5.0) mmol/L Chloride (98-107) mmol/L Carbon Dioxide (21-33) mmol/L Anion Gap (10-20) BUN (7-21) mg/dL Creatinine (0.5-1.4) mg/dL Est GFR ( Amer) Est GFR (Non-Af Amer) POC Glucose (mg/dL) 156 H (65-110) mg/dL Random Glucose (70-110) mg/dL Calcium (8.4-10.5) mg/dL Phosphorus (2.5-4.5) mg/dL Magnesium (1.7-2.2) mg/dL Total Bilirubin (0.2-1.3) mg/dL AST (17-59) U/L ALT (7-56) U/L Alkaline Phosphatase (38-126) U/L Total Protein (5.8-8.3) g/dL Albumin (3.0-4.8) g/dL Globulin gm/dL Albumin/Globulin Ratio (1.1-1.8) Ur Random Creatinine 273 mg/dL Ur Random Sodium 35 meq/L Urine Microalbumin > 950.0 H (0.0-16.6) mg/L 10/08/16 10/08/16 Range/Units 11:32 06:18 WBC (4.5-11.0) 10^3/ul RBC (3.5-6.1) 10^6/uL Hgb (14.0-18.0) g/dL Hct (42.0-52.0) % MCV (80.0-105.0) fl MCH (25.0-35.0) pg MCHC (31.0-37.0) g/dl RDW (11.5-14.5) % Plt Count (120.0-450.0) 10^3/uL Manual Plt Count 40 L* (120-450) K/mm3 MPV (7.0-11.0) fl Gran % (50.0-68.0) % Lymph % (Auto) (22.0-35.0) % [place] % (Auto) (1.0-6.0) % Eos % (Auto) (1.5-5.0) % Baso % (Auto) (0.0-3.0) % Gran # (1.4-6.5) Lymph # (1.2-3.4) [place] # (0.1-0.6) Eos # (0.0-0.7) Baso # (0.0-2.0) K/mm3 pCO2 (35-45) mm/Hg pO2 (80-100) mm/Hg HCO3 (21-28) mmol/L ABG pH (7.35-7.45) ABG Total CO2 (22-28) mmol.L ABG O2 Saturation (95-98) % ABG O2 Content (15-23) ML/dl ABG Base Excess (-2.0-3.0) mmol/L ABG Hemoglobin (11.7-17.4) g/dL ABG Carboxyhemoglobin (0.5-1.5) % POC ABG HHb (Measured) (0-5) % ABG Methemoglobin (0.0-3.0) % ABG O2 Capacity (16-24) mL/dl Hgb O2 Saturation (95.0-98.0) % FiO2 % Sodium (132-148) mmol/L Potassium (3.6-5.0) mmol/L Chloride (98-107) mmol/L Carbon Dioxide (21-33) mmol/L Anion Gap (10-20) BUN (7-21) mg/dL Creatinine (0.5-1.4) mg/dL Est GFR ( Amer) Est GFR (Non-Af Amer) POC Glucose (mg/dL) 173 H (65-110) mg/dL Random Glucose (70-110) mg/dL Calcium (8.4-10.5) mg/dL Phosphorus (2.5-4.5) mg/dL Magnesium (1.7-2.2) mg/dL Total Bilirubin (0.2-1.3) mg/dL AST (17-59) U/L ALT (7-56) U/L Alkaline Phosphatase (38-126) U/L Total Protein (5.8-8.3) g/dL Albumin (3.0-4.8) g/dL Globulin gm/dL Albumin/Globulin Ratio (1.1-1.8) Ur Random Creatinine mg/dL Ur Random Sodium meq/L Urine Microalbumin (0.0-16.6) mg/L Laboratory Results - last 24 hr 10/08/16 10/08/16 10/08/16 06:18 11:32 12:10 WBC RBC Hgb Hct MCV MCH MCHC RDW Plt Count Manual Plt Count 40 L* MPV Gran % Lymph % (Auto) [place] % (Auto) Eos % (Auto) Baso % (Auto) Gran # Lymph # [place] # Eos # Baso # pCO2 pO2 HCO3 ABG pH ABG Total CO2 ABG O2 Saturation ABG O2 Content ABG Base Excess ABG Hemoglobin ABG Carboxyhemoglobin POC ABG HHb (Measured) ABG Methemoglobin ABG O2 Capacity Hgb O2 Saturation FiO2 Sodium Potassium Chloride Carbon Dioxide Anion Gap BUN Creatinine Est GFR ( Amer) Est GFR (Non-Af Amer) POC Glucose (mg/dL) 173 H 156 H Random Glucose Calcium Phosphorus Magnesium Total Bilirubin AST ALT Alkaline Phosphatase Total Protein Albumin Globulin Albumin/Globulin Ratio Ur Random Creatinine Ur Random Sodium Urine Microalbumin 10/08/16 10/08/16 10/08/16 16:10 16:10 17:30 WBC 3.9 L RBC 2.80 L Hgb 9.0 L Hct 27.7 L MCV 98.9 MCH 32.1 MCHC 32.5 RDW 16.3 H Plt Count 29 L* Manual Plt Count MPV 12.3 H Gran % Lymph % (Auto) [place] % (Auto) Eos % (Auto) Baso % (Auto) Gran # Lymph # [place] # Eos # Baso # pCO2 pO2 HCO3 ABG pH ABG Total CO2 ABG O2 Saturation ABG O2 Content ABG Base Excess ABG Hemoglobin ABG Carboxyhemoglobin POC ABG HHb (Measured) ABG Methemoglobin ABG O2 Capacity Hgb O2 Saturation FiO2 Sodium Potassium Chloride Carbon Dioxide Anion Gap BUN Creatinine Est GFR ( Amer) Est GFR (Non-Af Amer) POC Glucose (mg/dL) Random Glucose Calcium Phosphorus Magnesium Total Bilirubin AST ALT Alkaline Phosphatase Total Protein Albumin Globulin Albumin/Globulin Ratio Ur Random Creatinine 273 Ur Random Sodium 35 Urine Microalbumin > 950.0 H 10/08/16 10/08/16 10/09/16 17:30 18:03 05:45 WBC 4.7 D RBC 2.85 L Hgb 9.2 L Hct 28.2 L MCV 98.9 MCH 32.3 MCHC 32.6 RDW 16.3 H Plt Count 29 L* Manual Plt Count MPV 11.9 H Gran % 75.1 H Lymph % (Auto) 18.8 L [place] % (Auto) 6.1 H Eos % (Auto) 0.0 L Baso % (Auto) 0.0 Gran # 3.56 Lymph # 0.9 L [place] # 0.3 Eos # 0.0 Baso # 0.00 pCO2 pO2 HCO3 ABG pH ABG Total CO2 ABG O2 Saturation ABG O2 Content ABG Base Excess ABG Hemoglobin ABG Carboxyhemoglobin POC ABG HHb (Measured) ABG Methemoglobin ABG O2 Capacity Hgb O2 Saturation FiO2 Sodium 143 Potassium 3.6 Chloride 111 H Carbon Dioxide 22 Anion Gap 14 BUN 51 H Creatinine 3.4 H Est GFR ( Amer) 23 Est GFR (Non-Af Amer) 19 POC Glucose (mg/dL) 143 H Random Glucose 137 H Calcium 7.1 L Phosphorus Magnesium Total Bilirubin AST ALT Alkaline Phosphatase Total Protein Albumin Globulin Albumin/Globulin Ratio Ur Random Creatinine Ur Random Sodium Urine Microalbumin 10/09/16 10/09/16 05:45 06:13 WBC RBC Hgb Hct MCV MCH MCHC RDW Plt Count Manual Plt Count MPV Gran % Lymph % (Auto) [place] % (Auto) Eos % (Auto) Baso % (Auto) Gran # Lymph # [place] # Eos # Baso # pCO2 46 H pO2 160.0 H HCO3 20.6 L ABG pH 7.26 L ABG Total CO2 22.0 ABG O2 Saturation 99.7 H ABG O2 Content 14.1 L ABG Base Excess -6.3 L ABG Hemoglobin 10.2 L ABG Carboxyhemoglobin 2.0 H POC ABG HHb (Measured) 0.3 ABG Methemoglobin 1.4 ABG O2 Capacity 14.1 L Hgb O2 Saturation 96.2 FiO2 40.0 Sodium 142 Potassium 3.4 L Chloride 111 H Carbon Dioxide 24 Anion Gap 10 BUN 58 H Creatinine 3.6 H Est GFR ( Amer) 21 Est GFR (Non-Af Amer) 18 POC Glucose (mg/dL) Random Glucose 116 H Calcium 7.0 L Phosphorus 4.8 H Magnesium 2.0 Total Bilirubin 2.4 H AST 65 H ALT 50 Alkaline Phosphatase 70 Total Protein 4.9 L Albumin 2.5 L Globulin 2.3 Albumin/Globulin Ratio 1.1 Ur Random Creatinine Ur Random Sodium Urine Microalbumin Fingerstick Blood Sugar Results: 155 Review of Systems - Review of Systems Systems not reviewed;Unavailable: Intubated Critical Care Progress Note - Ventilator Checklist Head of Bed 30 Degrees: Yes Daily Sedation Vacation: Yes Daily Assessment of Readiness to Wean: Yes Daily Spontaneous Breathing Trial: Yes PUD Prophalyxis: Yes DVT Prophylaxis: Yes Oral Care with Chlorhexidine Gluconate {CHG}: Yes - Vent Settings MODE:: PRVC TIDAL VOLUME:: 400 RESP RATE:: 26 FIO2:: 40 PEEP:: 5 - Extremities/Vascular Does the Patient have a Central Venous Catheter?: Yes (PICC line) Does the Patient need a Central Venous Catheter?: Yes (acuity of condition) Does the Patient have a Terrell Catheter?: Yes Does the Patient need a Terrell Catheter?: Yes Catheter Insertion Criteria: Need for accurate measurement of output in critically ill patient - Restraints Justification for Restraints: High risk for self extubation, High risk for removing IV access, High risk for harming self - Prophylaxis GI Prophylaxis GI: PPI - Prophylaxis DVT Prophylaxis DVT: SCDs Assessment/Plan - Assessment and Plan (Free Text) Assessment: 56M w/acute hypercapenic respiratory failure s/p intubation, sedation; ETOH withdrawal- resolved, with distributive shock 2/2 acute on chronic decompensated liver failure 2/2 Hep C and ETOH cirrhosis now off pressors with MODS, severe thrombocytopenia, continuing to require ICU care. Poor prognosis. Plan: Neuro Intubated Sedated on Fentanyl Folic Acid Ativan Vitamin B1 Vitamin B complex Aspiration precautions Seizure precautions Sedation vacations daily CVS Off pressors x 24H BP slightly hypotensive Started Midodrine 5mg TID Monitor Cardio following Pulm On [facility] vent: PRVC FiO2 40, PEEP 5, RR 26, TV 400 AB.26, CO2 46, O2 160, HCO3 20.6 Protective lung mgmt strategy Daily CXRs ET tube adjusted based on CXR PRN Target SaO2>94% GI Hep C Acute on chronic decompensated liver failure Rifaximan T bili 2.4 from 2.7 AST 65 from 73 ALT 50 from 56 Hypoalbuminemia - Albumin 2.5 from 2.8 Tube feeds GI following Terrell with scant dark dariela UOP Will change terrell today 2/2 infxn Nephro BUN 58 from 51 Cr 3.6 from 3.4 Hypokalemia K 3.4 Replaced 20mEq KCL 1/2 NS@80 Hyperphosphatemia Phos 4.8 Nephro following- Will DW attending regarding HD Heme/Onc Hgb 9.2 from 9.0 Hct 28.2 from 27.7 Plts 29 from 29 Transfusing 1 unit of plts PT 16.1 INR 1.49 PTT 30.3 ID C diff positive Stools still liquid/smear Afebrile No leukocytosis or leukopenia Fungemia in blood, urine, sputum Tylenol PRN Fever Merrem Micafungin Vancomycin Need to d/c A-line, plan after given plts ID following Endo BS 116- WNL Target euglycemia per NICE sugar trial Accuchecks MSK LE and UE w/2-3+ pitting edema Umbilical hernia- no surgical intervention Restraints due to pulling Vitamin A & D Multiple areas of weeping- skin care daily GI/DVT ppx Protonix SCDs Dispo Pallative care following Will close Paracentesis site Attempting to remove potential infection sources DW ICU attending Judie, PGY-1 - Date & Time Date: 10/09/16 Time: 08:00 <Rafeal Groves - Last Filed: 10/09/16 11:07> CCU Objective - Vital Signs / Intake & Output Vital Signs (Last 4 hours): Vital Signs Temp Pulse Resp BP Pulse Ox 10/09/16 10:00 96.3 F L 76 30 H 113/64 99 10/09/16 09:00 96.1 F L 71 100 10/09/16 08:00 95.7 F L 73 99 10/09/16 07:00 95.7 F L 75 100 Intake and Output (Last 8hrs): Intake & Output 10/08/16 10/09/16 10/09/16 22:59 06:59 14:59 Intake Total 1846 960 Output Total 725 960 Balance 1121 0 Intake: IV 1546 960 Right Upper arm 1546 960 Oral 300 Output: Drainage 900 Paracentesis 900 Urine 25 60 Urethral (Terrell) 25 60 Oral Regurgitation 700 Other: Voiding Method Indwelling Catheter Indwelling Catheter - Medications Active Medications: Active Medications Generic Name Dose Route Start Last Admin Trade Name Freq PRN Reason Stop Dose Admin Acetaminophen 320 mg 10/03/16 07:45 10/04/16 13:52 Tylenol 160mg/5ml Oral Soln PO 320 mg Q4 PRN Administration Fever >100.4 F Albuterol/Ipratropium 3 ml 10/05/16 08:00 10/09/16 07:14 Duoneb 3 Mg/0.5 Mg (3 Ml) Ud IH 3 ml [id number] TONI Administration Folic Acid 1 mg 10/03/16 10:00 10/09/16 09:02 Folic Acid PO 1 mg DAILY TONI Administration Fentanyl Citrate 1,000 mcg in 100 mls @ 7.5 mls/hr 10/05/16 07:39 10/08/16 08 :34 Fentanyl Citrate/Sodium Chloride 1 Mg/100 Ml IV 28 mcg/hr .[id number] PRN 2.8 mls/hr TITRATE PER MD ORDER Titration Protocol 75 MCG/HR Micafungin Sodium 100 mg/ 100 mls @ 100 mls/hr 10/08/16 10:00 10/09/16 09:05 Sodium Chloride IV 10/17/16 10:01 100 mls/hr DAILY TONI Administration Protocol Sodium Chloride 1,000 mls @ 80 mls/hr 10/08/16 12:15 10/09/16 00:56 Sodium Chloride 0.45% IV 80 mls/hr .[id number] TONI Administration Meropenem 250 mg/ Sodium 100 mls @ 100 mls/hr 10/08/16 13:30 10/09/16 00:55 Chloride IVPB 10/17/16 13:31 100 mls/hr Q12H TONI Administration Protocol Lorazepam 2 mg 10/02/16 21:28 10/07/16 05:33 Ativan IVP 2 mg Q2H PRN Administration Agitation Protocol Midodrine 5 mg 10/09/16 10:00 Proamatine PO TID TONI Pantoprazole Sodium 40 mg 10/03/16 10:00 10/09/16 09:01 Protonix Inj IVP 40 mg DAILY TONI Administration Rifaximin 550 mg 10/05/16 10:00 10/09/16 09:02 Xifaxan PO 550 mg BID TNOI Administration Protocol Thiamine HCl 100 mg 10/03/16 10:00 10/09/16 09:02 Vitamin B1 Tab PO 100 mg DAILY TONI Administration Vancomycin HCl 125 mg 10/03/16 11:00 10/09/16 05:15 Vancocin 25 Mg/Ml (Oral Use) PO 125 mg Q6H TONI Administration Protocol Vitamin A 1 ea 10/03/16 10:00 10/09/16 09:02 Vitamin A & D Oint Ud Foilpak TOP 1 ea DAILY TONI Administration Vitamin B Complex/Vit C/Folic Acid 1 tab 10/03/16 08:00 10/09/16 08:45 Nephro-Mariann PO 1 tab 0800 TONI Administration - Patient Studies Lab Studies: Microbiology Studies 10/05/16 21:16 Urine Culture - Final Urine,Terrell Yeast Species 10/05/16 08:23 Gram Stain - Final Peritoneal Fluid Body Fluid Culture - Preliminary NO GROWTH AFTER 3 DAYS 10/05/16 13:00 S.aureus & Coag-Neg Staph PNA FISH - Final Blood-Venous TEST NOT PERFORMED Blood Culture - Preliminary Yeast Species Gram Stain - Final Lab Studies 10/09/16 10/09/16 10/09/16 Range/Units 06:13 05:45 05:45 WBC 4.7 D (4.5-11.0) 10^3/ul RBC 2.85 L (3.5-6.1) 10^6/uL Hgb 9.2 L (14.0-18.0) g/dL Hct 28.2 L (42.0-52.0) % MCV 98.9 (80.0-105.0) fl MCH 32.3 (25.0-35.0) pg MCHC 32.6 (31.0-37.0) g/dl RDW 16.3 H (11.5-14.5) % Plt Count 29 L* (120.0-450.0) 10^3/uL Manual Plt Count (120-450) K/mm3 MPV 11.9 H (7.0-11.0) fl Gran % 75.1 H (50.0-68.0) % Lymph % (Auto) 18.8 L (22.0-35.0) % [place] % (Auto) 6.1 H (1.0-6.0) % Eos % (Auto) 0.0 L (1.5-5.0) % Baso % (Auto) 0.0 (0.0-3.0) % Gran # 3.56 (1.4-6.5) Lymph # 0.9 L (1.2-3.4) [place] # 0.3 (0.1-0.6) Eos # 0.0 (0.0-0.7) Baso # 0.00 (0.0-2.0) K/mm3 pCO2 46 H (35-45) mm/Hg pO2 160.0 H (80-100) mm/Hg HCO3 20.6 L (21-28) mmol/L ABG pH 7.26 L (7.35-7.45) ABG Total CO2 22.0 (22-28) mmol.L ABG O2 Saturation 99.7 H (95-98) % ABG O2 Content 14.1 L (15-23) ML/dl ABG Base Excess -6.3 L (-2.0-3.0) mmol/L ABG Hemoglobin 10.2 L (11.7-17.4) g/dL ABG Carboxyhemoglobin 2.0 H (0.5-1.5) % POC ABG HHb (Measured) 0.3 (0-5) % ABG Methemoglobin 1.4 (0.0-3.0) % ABG O2 Capacity 14.1 L (16-24) mL/dl Hgb O2 Saturation 96.2 (95.0-98.0) % FiO2 40.0 % Sodium 142 (132-148) mmol/L Potassium 3.4 L (3.6-5.0) mmol/L Chloride 111 H (98-107) mmol/L Carbon Dioxide 24 (21-33) mmol/L Anion Gap 10 (10-20) BUN 58 H (7-21) mg/dL Creatinine 3.6 H (0.5-1.4) mg/dL Est GFR ( Amer) 21 Est GFR (Non-Af Amer) 18 POC Glucose (mg/dL) (65-110) mg/dL Random Glucose 116 H (70-110) mg/dL Calcium 7.0 L (8.4-10.5) mg/dL Phosphorus 4.8 H (2.5-4.5) mg/dL Magnesium 2.0 (1.7-2.2) mg/dL Total Bilirubin 2.4 H (0.2-1.3) mg/dL AST 65 H (17-59) U/L ALT 50 (7-56) U/L Alkaline Phosphatase 70 (38-126) U/L Total Protein 4.9 L (5.8-8.3) g/dL Albumin 2.5 L (3.0-4.8) g/dL Globulin 2.3 gm/dL Albumin/Globulin Ratio 1.1 (1.1-1.8) Ur Random Creatinine mg/dL Ur Random Sodium meq/L Urine Microalbumin (0.0-16.6) mg/L 10/08/16 10/08/16 10/08/16 Range/Units 18:03 17:30 17:30 WBC 3.9 L (4.5-11.0) 10^3/ul RBC 2.80 L (3.5-6.1) 10^6/uL Hgb 9.0 L (14.0-18.0) g/dL Hct 27.7 L (42.0-52.0) % MCV 98.9 (80.0-105.0) fl MCH 32.1 (25.0-35.0) pg MCHC 32.5 (31.0-37.0) g/dl RDW 16.3 H (11.5-14.5) % Plt Count 29 L* (120.0-450.0) 10^3/uL Manual Plt Count (120-450) K/mm3 MPV 12.3 H (7.0-11.0) fl Gran % (50.0-68.0) % Lymph % (Auto) (22.0-35.0) % [place] % (Auto) (1.0-6.0) % Eos % (Auto) (1.5-5.0) % Baso % (Auto) (0.0-3.0) % Gran # (1.4-6.5) Lymph # (1.2-3.4) [place] # (0.1-0.6) Eos # (0.0-0.7) Baso # (0.0-2.0) K/mm3 pCO2 (35-45) mm/Hg pO2 (80-100) mm/Hg HCO3 (21-28) mmol/L ABG pH (7.35-7.45) ABG Total CO2 (22-28) mmol.L ABG O2 Saturation (95-98) % ABG O2 Content (15-23) ML/dl ABG Base Excess (-2.0-3.0) mmol/L ABG Hemoglobin (11.7-17.4) g/dL ABG Carboxyhemoglobin (0.5-1.5) % POC ABG HHb (Measured) (0-5) % ABG Methemoglobin (0.0-3.0) % ABG O2 Capacity (16-24) mL/dl Hgb O2 Saturation (95.0-98.0) % FiO2 % Sodium 143 (132-148) mmol/L Potassium 3.6 (3.6-5.0) mmol/L Chloride 111 H (98-107) mmol/L Carbon Dioxide 22 (21-33) mmol/L Anion Gap 14 (10-20) BUN 51 H (7-21) mg/dL Creatinine 3.4 H (0.5-1.4) mg/dL Est GFR ( Amer) 23 Est GFR (Non-Af Amer) 19 POC Glucose (mg/dL) 143 H (65-110) mg/dL Random Glucose 137 H (70-110) mg/dL Calcium 7.1 L (8.4-10.5) mg/dL Phosphorus (2.5-4.5) mg/dL Magnesium (1.7-2.2) mg/dL Total Bilirubin (0.2-1.3) mg/dL AST (17-59) U/L ALT (7-56) U/L Alkaline Phosphatase (38-126) U/L Total Protein (5.8-8.3) g/dL Albumin (3.0-4.8) g/dL Globulin gm/dL Albumin/Globulin Ratio (1.1-1.8) Ur Random Creatinine mg/dL Ur Random Sodium meq/L Urine Microalbumin (0.0-16.6) mg/L 10/08/16 10/08/16 10/08/16 Range/Units 16:10 16:10 12:10 WBC (4.5-11.0) 10^3/ul RBC (3.5-6.1) 10^6/uL Hgb (14.0-18.0) g/dL Hct (42.0-52.0) % MCV (80.0-105.0) fl MCH (25.0-35.0) pg MCHC (31.0-37.0) g/dl RDW (11.5-14.5) % Plt Count (120.0-450.0) 10^3/uL Manual Plt Count (120-450) K/mm3 MPV (7.0-11.0) fl Gran % (50.0-68.0) % Lymph % (Auto) (22.0-35.0) % [place] % (Auto) (1.0-6.0) % Eos % (Auto) (1.5-5.0) % Baso % (Auto) (0.0-3.0) % Gran # (1.4-6.5) Lymph # (1.2-3.4) [place] # (0.1-0.6) Eos # (0.0-0.7) Baso # (0.0-2.0) K/mm3 pCO2 (35-45) mm/Hg pO2 (80-100) mm/Hg HCO3 (21-28) mmol/L ABG pH (7.35-7.45) ABG Total CO2 (22-28) mmol.L ABG O2 Saturation (95-98) % ABG O2 Content (15-23) ML/dl ABG Base Excess (-2.0-3.0) mmol/L ABG Hemoglobin (11.7-17.4) g/dL ABG Carboxyhemoglobin (0.5-1.5) % POC ABG HHb (Measured) (0-5) % ABG Methemoglobin (0.0-3.0) % ABG O2 Capacity (16-24) mL/dl Hgb O2 Saturation (95.0-98.0) % FiO2 % Sodium (132-148) mmol/L Potassium (3.6-5.0) mmol/L Chloride (98-107) mmol/L Carbon Dioxide (21-33) mmol/L Anion Gap (10-20) BUN (7-21) mg/dL Creatinine (0.5-1.4) mg/dL Est GFR ( Amer) Est GFR (Non-Af Amer) POC Glucose (mg/dL) 156 H (65-110) mg/dL Random Glucose (70-110) mg/dL Calcium (8.4-10.5) mg/dL Phosphorus (2.5-4.5) mg/dL Magnesium (1.7-2.2) mg/dL Total Bilirubin (0.2-1.3) mg/dL AST (17-59) U/L ALT (7-56) U/L Alkaline Phosphatase (38-126) U/L Total Protein (5.8-8.3) g/dL Albumin (3.0-4.8) g/dL Globulin gm/dL Albumin/Globulin Ratio (1.1-1.8) Ur Random Creatinine 273 mg/dL Ur Random Sodium 35 meq/L Urine Microalbumin > 950.0 H (0.0-16.6) mg/L 10/08/16 10/08/16 Range/Units 11:32 06:18 WBC (4.5-11.0) 10^3/ul RBC (3.5-6.1) 10^6/uL Hgb (14.0-18.0) g/dL Hct (42.0-52.0) % MCV (80.0-105.0) fl MCH (25.0-35.0) pg MCHC (31.0-37.0) g/dl RDW (11.5-14.5) % Plt Count (120.0-450.0) 10^3/uL Manual Plt Count 40 L* (120-450) K/mm3 MPV (7.0-11.0) fl Gran % (50.0-68.0) % Lymph % (Auto) (22.0-35.0) % [place] % (Auto) (1.0-6.0) % Eos % (Auto) (1.5-5.0) % Baso % (Auto) (0.0-3.0) % Gran # (1.4-6.5) Lymph # (1.2-3.4) [place] # (0.1-0.6) Eos # (0.0-0.7) Baso # (0.0-2.0) K/mm3 pCO2 (35-45) mm/Hg pO2 (80-100) mm/Hg HCO3 (21-28) mmol/L ABG pH (7.35-7.45) ABG Total CO2 (22-28) mmol.L ABG O2 Saturation (95-98) % ABG O2 Content (15-23) ML/dl ABG Base Excess (-2.0-3.0) mmol/L ABG Hemoglobin (11.7-17.4) g/dL ABG Carboxyhemoglobin (0.5-1.5) % POC ABG HHb (Measured) (0-5) % ABG Methemoglobin (0.0-3.0) % ABG O2 Capacity (16-24) mL/dl Hgb O2 Saturation (95.0-98.0) % FiO2 % Sodium (132-148) mmol/L Potassium (3.6-5.0) mmol/L Chloride (98-107) mmol/L Carbon Dioxide (21-33) mmol/L Anion Gap (10-20) BUN (7-21) mg/dL Creatinine (0.5-1.4) mg/dL Est GFR ( Amer) Est GFR (Non-Af Amer) POC Glucose (mg/dL) 173 H (65-110) mg/dL Random Glucose (70-110) mg/dL Calcium (8.4-10.5) mg/dL Phosphorus (2.5-4.5) mg/dL Magnesium (1.7-2.2) mg/dL Total Bilirubin (0.2-1.3) mg/dL AST (17-59) U/L ALT (7-56) U/L Alkaline Phosphatase (38-126) U/L Total Protein (5.8-8.3) g/dL Albumin (3.0-4.8) g/dL Globulin gm/dL Albumin/Globulin Ratio (1.1-1.8) Ur Random Creatinine mg/dL Ur Random Sodium meq/L Urine Microalbumin (0.0-16.6) mg/L Laboratory Results - last 24 hr 10/08/16 10/08/16 10/08/16 06:18 11:32 12:10 WBC RBC Hgb Hct MCV MCH MCHC RDW Plt Count Manual Plt Count 40 L* MPV Gran % Lymph % (Auto) [place] % (Auto) Eos % (Auto) Baso % (Auto) Gran # Lymph # [place] # Eos # Baso # pCO2 pO2 HCO3 ABG pH ABG Total CO2 ABG O2 Saturation ABG O2 Content ABG Base Excess ABG Hemoglobin ABG Carboxyhemoglobin POC ABG HHb (Measured) ABG Methemoglobin ABG O2 Capacity Hgb O2 Saturation FiO2 Sodium Potassium Chloride Carbon Dioxide Anion Gap BUN Creatinine Est GFR ( Amer) Est GFR (Non-Af Amer) POC Glucose (mg/dL) 173 H 156 H Random Glucose Calcium Phosphorus Magnesium Total Bilirubin AST ALT Alkaline Phosphatase Total Protein Albumin Globulin Albumin/Globulin Ratio Ur Random Creatinine Ur Random Sodium Urine Microalbumin 10/08/16 10/08/16 10/08/16 16:10 16:10 17:30 WBC 3.9 L RBC 2.80 L Hgb 9.0 L Hct 27.7 L MCV 98.9 MCH 32.1 MCHC 32.5 RDW 16.3 H Plt Count 29 L* Manual Plt Count MPV 12.3 H Gran % Lymph % (Auto) [place] % (Auto) Eos % (Auto) Baso % (Auto) Gran # Lymph # [place] # Eos # Baso # pCO2 pO2 HCO3 ABG pH ABG Total CO2 ABG O2 Saturation ABG O2 Content ABG Base Excess ABG Hemoglobin ABG Carboxyhemoglobin POC ABG HHb (Measured) ABG Methemoglobin ABG O2 Capacity Hgb O2 Saturation FiO2 Sodium Potassium Chloride Carbon Dioxide Anion Gap BUN Creatinine Est GFR ( Amer) Est GFR (Non-Af Amer) POC Glucose (mg/dL) Random Glucose Calcium Phosphorus Magnesium Total Bilirubin AST ALT Alkaline Phosphatase Total Protein Albumin Globulin Albumin/Globulin Ratio Ur Random Creatinine 273 Ur Random Sodium 35 Urine Microalbumin > 950.0 H 10/08/16 10/08/16 10/09/16 17:30 18:03 05:45 WBC 4.7 D RBC 2.85 L Hgb 9.2 L Hct 28.2 L MCV 98.9 MCH 32.3 MCHC 32.6 RDW 16.3 H Plt Count 29 L* Manual Plt Count MPV 11.9 H Gran % 75.1 H Lymph % (Auto) 18.8 L [place] % (Auto) 6.1 H Eos % (Auto) 0.0 L Baso % (Auto) 0.0 Gran # 3.56 Lymph # 0.9 L [place] # 0.3 Eos # 0.0 Baso # 0.00 pCO2 pO2 HCO3 ABG pH ABG Total CO2 ABG O2 Saturation ABG O2 Content ABG Base Excess ABG Hemoglobin ABG Carboxyhemoglobin POC ABG HHb (Measured) ABG Methemoglobin ABG O2 Capacity Hgb O2 Saturation FiO2 Sodium 143 Potassium 3.6 Chloride 111 H Carbon Dioxide 22 Anion Gap 14 BUN 51 H Creatinine 3.4 H Est GFR ( Amer) 23 Est GFR (Non-Af Amer) 19 POC Glucose (mg/dL) 143 H Random Glucose 137 H Calcium 7.1 L Phosphorus Magnesium Total Bilirubin AST ALT Alkaline Phosphatase Total Protein Albumin Globulin Albumin/Globulin Ratio Ur Random Creatinine Ur Random Sodium Urine Microalbumin 10/09/16 10/09/16 05:45 06:13 WBC RBC Hgb Hct MCV MCH MCHC RDW Plt Count Manual Plt Count MPV Gran % Lymph % (Auto) [place] % (Auto) Eos % (Auto) Baso % (Auto) Gran # Lymph # [place] # Eos # Baso # pCO2 46 H pO2 160.0 H HCO3 20.6 L ABG pH 7.26 L ABG Total CO2 22.0 ABG O2 Saturation 99.7 H ABG O2 Content 14.1 L ABG Base Excess -6.3 L ABG Hemoglobin 10.2 L ABG Carboxyhemoglobin 2.0 H POC ABG HHb (Measured) 0.3 ABG Methemoglobin 1.4 ABG O2 Capacity 14.1 L Hgb O2 Saturation 96.2 FiO2 40.0 Sodium 142 Potassium 3.4 L Chloride 111 H Carbon Dioxide 24 Anion Gap 10 BUN 58 H Creatinine 3.6 H Est GFR ( Amer) 21 Est GFR (Non-Af Amer) 18 POC Glucose (mg/dL) Random Glucose 116 H Calcium 7.0 L Phosphorus 4.8 H Magnesium 2.0 Total Bilirubin 2.4 H AST 65 H ALT 50 Alkaline Phosphatase 70 Total Protein 4.9 L Albumin 2.5 L Globulin 2.3 Albumin/Globulin Ratio 1.1 Ur Random Creatinine Ur Random Sodium Urine Microalbumin Assessment/Plan - Assessment and Plan (Free Text) Plan: Patient seen and examined on rounds with Dr Dimas, agree with note, A/P. Patient remains intubated, sedation shut off for sedation vacation, patient opens eyes, follows simple commands. Blood culture, urine culture, and sputum culture postive for chun, on Mycamine, ID following. patient needs all lines to be moved, Arterial Line, PICC line, and Terrell. Prior to removing lines will give 1u platelets to minimize bleeding. Patient oligouric, with no urtine output, renal following. Will have likely go on HD at some point, at which time will need Shiley catheter placement, patient at high risk for bleeding given coaguloapthy, thrombocytopenia. Patient has been off pressors >48h now, HD stable. Patient's daughter Nasrin, deffered all decision making to her mother, the patients . Recommend: Resp: - keep intubated, sedated, patient not ready for extubation - advance ETT 2cm - CXR without focal infiltrate Infectious: - +Cdiff - +yeast in blood, fungemia - ID following - Merrem, Vanco IV, Vanco PO, Mycamine, renally dosed - remove all lines, art line, picc line, give unit of patelets prior to doing that - ECHO - Ophtho consult CV: - - off pressors >48hr - start midodrine 5mg TID - DC steroids - ECHO Heme: - HH Stable - cont with PPI - keep platelets>50 HH>7 - 1u plts prior to removing lines Alimentary/GI: - hx of EtOH abuse, Cirrhosis, Hep C - MELD 22 - Rifaxamin - PPI - residuals>500cc, will start Reglan IV Neuro: - intial CT head negative - will attempt sedation vacation, assess neurological status then Line: R PICC, needs to be removed L Femo Art Line. needs to be removed, ETT NGT Terrell, change terrell today DVT ppx GI ppx Full Code Remains in critical condition Critical care time: 35minutes
[2016-10-09] MEDS: Multivitamin Vitamin B Complex (Nephro-Vite) Tab PO SCH (08:45)
[2016-10-09] MEDS: Vitamins A & D Oint UD Foilpak TOP SCH (09:02)
[2016-10-09] MEDS: Micafungin 100 MG in Sodium Chloride 0.9% 100 ML IV SCH (09:05)
--- NOTE | 2016-10-09 09:28 | RAD ---
HISTORY: mech vent COMPARISON: Chest x-ray performed 10/08/16 TECHNIQUE: Chest, one view. FINDINGS: The endotracheal tube terminates approximately 6.8 cm above the level the ole. Right-sided central venous catheter extends to the SVC. LUNGS: Central vascular congestion. Evidence of bat wing type distribution of patchy/hazy pulmonary opacities ; correlate clinically for edema or infection. PLEURA: No significant pleural effusion identified. No definite pneumothorax . CARDIOVASCULAR: Heart size appears within normal limits. OSSEOUS STRUCTURES: No acute osseous abnormality identified. VISUALIZED UPPER ABDOMEN: Unremarkable. OTHER FINDINGS: None. IMPRESSION: Central vascular congestion. Evidence of bat wing type distribution of patchy/hazy pulmonary opacities ; correlate clinically for edema or infection.
--- NOTE | 2016-10-09 10:55 | PN ---
DATE: 10/09/2016 SUBJECTIVE: The patient is in bed, in no acute distress. The patient is seen earlier this morning in the unit. He remains intubated on a ventilator. PHYSICAL EXAMINATION: VITAL SIGNS: Temperature is 95 and blood pressure is noted to be 118/50, respiratory rate on the vent, and heart rate of 76. HEENT: Unremarkable. NECK: Supple. LUNGS: Decreased breath sounds. ABDOMEN: Soft and nontender. LABORATORY DATA: Reveals a white count is 4.7, hemoglobin of 9, and platelets of 29. Chemistry reveals a BUN of 58 and creatinine of 3.6. Urinalysis is noted. Vanco trough is reported to be at 12.6. ASSESSMENT AND PLAN: A 56-year-old male with hepatitis C cirrhosis, alcohol abuse, respiratory failure initially with septic shock intubated on a ventilator, respiratory acidosis, acute renal failure, spontaneous bacterial peritonitis now with fungemia, positive yeast in a patient with severe sepsis now with a day #5 of intermittent vancomycin and meropenem and day #2 of Mycamine. Awaiting for identification sensitivity of the yeast in the blood. There is also yeast in the urine and yeast in the sputum. We will check on the repeat blood cultures. I have recommended to remove and change all the lines and overall prognosis is quite poor for this patient. Multiorgan failure and acute renal failure on top of chronic kidney disease. We will follow closely with you. Nehemiah Aguilar MD
--- NOTE | 2016-10-09 12:59 | CP.PCM.PN ---
<Justo Torres - Last Filed: 10/09/16 13:29> Subjective - Date & Time of Evaluation Date of Evaluation: 10/09/16 Time of Evaluation: 08:35 - Subjective Subjective: This patient was seen resting at bedside. Per nursing, there were no acute events overnight. ROS was unobtainable due to the patient being sedated and intubated. Objective - Vital Signs/Intake and Output Vital Signs (last 24 hours): Temp Pulse Resp BP Pulse Ox 97.2 F L 75 30 H 103/55 L 100 10/09/16 12:00 10/09/16 12:00 10/09/16 12:00 10/09/16 12:00 10/09/16 12:00 Intake and Output: 10/09/16 10/09/16 06:59 18:59 Intake Total 960 Output Total 1660 Balance -700 - Medications Medications: Current Medications Acetaminophen (Tylenol 160mg/5ml Oral Soln) 320 mg PO Q4 PRN PRN Reason: Fever >100.4 F Last Admin: 10/04/16 13:52 Dose: 320 mg Albuterol/Ipratropium (Duoneb 3 Mg/0.5 Mg (3 Ml) Ud) 3 ml IH [id number] [facility] Last Admin: 10/09/16 07:14 Dose: 3 ml Folic Acid (Folic Acid) 1 mg PO DAILY [facility] Last Admin: 10/09/16 09:02 Dose: 1 mg Fentanyl Citrate (Fentanyl Citrate/Sodium Chloride 1 Mg/100 Ml) 1,000 mcg in 100 mls @ 7.5 mls/hr IV .[id number] PRN; Protocol; 75 MCG/HR PRN Reason: TITRATE PER MD ORDER Last Titration: 10/08/16 08:34 Dose: 28 mcg/hr, 2.8 mls/hr Micafungin Sodium 100 mg/ (Sodium Chloride) 100 mls @ 100 mls/hr IV DAILY [facility] PRN Reason: Protocol Stop: 10/17/16 10:01 Last Admin: 10/09/16 09:05 Dose: 100 mls/hr Sodium Chloride (Sodium Chloride 0.45%) 1,000 mls @ 80 mls/hr IV .[id number] [facility] Last Admin: 10/09/16 00:56 Dose: 80 mls/hr Meropenem 250 mg/ Sodium (Chloride) 100 mls @ 100 mls/hr IVPB Q12H TONI PRN Reason: Protocol Stop: 10/17/16 13:31 Last Admin: 10/09/16 00:55 Dose: 100 mls/hr Lorazepam (Ativan) 2 mg IVP Q2H PRN; Protocol PRN Reason: Agitation Last Admin: 10/07/16 05:33 Dose: 2 mg Midodrine (Proamatine) 5 mg PO TID TONI Last Admin: 10/09/16 10:36 Dose: 5 mg Pantoprazole Sodium (Protonix Inj) 40 mg IVP DAILY TONI Last Admin: 10/09/16 09:01 Dose: 40 mg Rifaximin (Xifaxan) 550 mg PO BID TONI PRN Reason: Protocol Last Admin: 10/09/16 09:02 Dose: 550 mg Thiamine HCl (Vitamin B1 Tab) 100 mg PO DAILY [facility] Last Admin: 10/09/16 09:02 Dose: 100 mg Vancomycin HCl (Vancocin 25 Mg/Ml (Oral Use)) 125 mg PO Q6H TONI PRN Reason: Protocol Last Admin: 10/09/16 10:35 Dose: 125 mg Vitamin A (Vitamin A & D Oint Ud Foilpak) 1 ea TOP DAILY TONI Last Admin: 10/09/16 09:02 Dose: 1 ea Vitamin B Complex/Vit C/Folic Acid (Nephro-Mariann) 1 tab PO 0800 TONI Last Admin: 10/09/16 08:45 Dose: 1 tab - Labs Labs: 10/09/16 05:45 10/09/16 05:45 PT 16.1 Seconds (9.9-11.8) H 10/08/16 06:00 INR 1.49 (0.93-1.08) H 10/08/16 06:00 APTT 30.3 Seconds (23.7-30.8) 10/08/16 06:00 - Constitutional Appears: No Acute Distress, Older Than Stated Age - Head Exam Head Exam: ATRAUMATIC - Eye Exam Eye Exam: Normal appearance. absent: PERRL Pupil Exam: PERRL. absent: NORMAL ACCOMODATION - ENT Exam ENT Exam: Mucous Membranes Moist - Neck Exam Neck Exam: Normal Inspection - Respiratory Exam Respiratory Exam: Clear to Ausculation Bilateral, Rales, NORMAL BREATHING PATTERN - Cardiovascular Exam Cardiovascular Exam: REGULAR RHYTHM, +S1, +S2 - GI/Abdominal Exam GI & Abdominal Exam: Soft, Normal Bowel Sounds. absent: Rigid, Tenderness, Mass - Extremities Exam Extremities Exam: absent: Pedal Edema - Skin Skin Exam: Mottled Assessment and Plan - Assessment and Plan (Free Text) Assessment: 1.Hypercapnic Respiratory Failure -Patient intubated on 10/05. Today /Fi O2= 40%. End tidal Volume= 400ml . RR=26, PEEP=5 O2 Sat=96 -ABG: pCO2-40, pO2-160, HCO3- 20.6, pH-7.26 -Patient slightly hypotensive (107/61) and off pressors. Patient started on Miodrine 5mg TID. Cardiology Following. -Continue to monitor vitals. 2.Acute renal failure likely secondary to Acute glomerulonephritis -Possible need for Hemodialysis -Urine Output was 85ml and urine color was a dark red. -Nephrology consulted and note appreciated. 3.Pulmonary -CXR shows: central vascular congestion. Evidence of bat wing type distribution of patchy/ hazy pulmonary opacities; correlate clinically for edema or infection. -ID consulted and note appreciated. All lines to be changed. -Blood and sputum cultures grew yeast . Continue Micafungin for the yeast growth. Results for sensitivity for the type of yeast still pending. 4.Thrombocytopenia -PLT count 29. This morning the patient is s/p 1 unit of platelet transfusion and was expected to receive another unit of platelets this morning. Consider another platelet transfusion if no signs of improvement during next blood panel. Monitor for bleeding. 4.Ascites -s/p 2L of ascitic fluid removed on 10/05. Culture shows no growth after 72 hours. 5.Hepatic encephalopathy -continue Rifaxamin 6.Anemia -Stool occult blood positive on 10/05 - Hgb: 9.0 and HCT(27.7). Patient is s/p 3 units of PRBC's transfusion. Continue to monitor h/h levels. 7. C.Dif infection -PO Vancomycin d/c'ed. -Patient remains afebrile and no signs of leukocytosis. Continue to monitor for signs of infection. 8. GI ppx -continue Protonix 9.DVT PPX -continue SCD's <Mell Gauthier - Last Filed: 10/09/16 17:07> Objective - Vital Signs/Intake and Output Vital Signs (last 24 hours): Temp Pulse Resp BP Pulse Ox 97.5 F L 77 20 99/64 L 99 10/09/16 16:00 10/09/16 16:00 10/09/16 16:00 10/09/16 16:00 10/09/16 16:00 Intake and Output: 10/09/16 10/09/16 06:59 18:59 Intake Total 960 Output Total 1660 Balance -700 - Medications Medications: Current Medications Acetaminophen (Tylenol 160mg/5ml Oral Soln) 320 mg PO Q4 PRN PRN Reason: Fever >100.4 F Last Admin: 10/04/16 13:52 Dose: 320 mg Albuterol/Ipratropium (Duoneb 3 Mg/0.5 Mg (3 Ml) Ud) 3 ml IH [id number] [facility] Last Admin: 10/09/16 13:44 Dose: 3 ml Folic Acid (Folic Acid) 1 mg PO DAILY [facility] Last Admin: 10/09/16 09:02 Dose: 1 mg Fentanyl Citrate (Fentanyl Citrate/Sodium Chloride 1 Mg/100 Ml) 1,000 mcg in 100 mls @ 7.5 mls/hr IV .[id number] PRN; Protocol; 75 MCG/HR PRN Reason: TITRATE PER MD ORDER Last Titration: 10/08/16 08:34 Dose: 28 mcg/hr, 2.8 mls/hr Micafungin Sodium 100 mg/ (Sodium Chloride) 100 mls @ 100 mls/hr IV DAILY [facility] PRN Reason: Protocol Stop: 10/17/16 10:01 Last Admin: 10/09/16 09:05 Dose: 100 mls/hr Sodium Chloride (Sodium Chloride 0.45%) 1,000 mls @ 80 mls/hr IV .[id number] [facility] Last Admin: 10/09/16 00:56 Dose: 80 mls/hr Meropenem 250 mg/ Sodium (Chloride) 100 mls @ 100 mls/hr IVPB Q12H TONI PRN Reason: Protocol Stop: 10/17/16 13:31 Last Admin: 10/09/16 15:27 Dose: 100 mls/hr Lorazepam (Ativan) 2 mg IVP Q2H PRN; Protocol PRN Reason: Agitation Last Admin: 10/07/16 05:33 Dose: 2 mg Metoclopramide HCl (Reglan) 10 mg IVP Q6H PRN PRN Reason: Other Midodrine (Proamatine) 5 mg PO TID [facility] Last Admin: 10/09/16 15:27 Dose: 5 mg Pantoprazole Sodium (Protonix Inj) 40 mg IVP DAILY [facility] Last Admin: 10/09/16 09:01 Dose: 40 mg Rifaximin (Xifaxan) 550 mg PO BID TONI PRN Reason: Protocol Last Admin: 10/09/16 09:02 Dose: 550 mg Thiamine HCl (Vitamin B1 Tab) 100 mg PO DAILY [facility] Last Admin: 10/09/16 09:02 Dose: 100 mg Vancomycin HCl (Vancocin 25 Mg/Ml (Oral Use)) 125 mg PO Q6H TONI PRN Reason: Protocol Last Admin: 10/09/16 10:35 Dose: 125 mg Vitamin A (Vitamin A & D Oint Ud Foilpak) 1 ea TOP DAILY [facility] Last Admin: 10/09/16 09:02 Dose: 1 ea Vitamin B Complex/Vit C/Folic Acid (Nephro-Mariann) 1 tab PO 0800 [facility] Last Admin: 10/09/16 08:45 Dose: 1 tab - Labs Labs: 10/09/16 05:45 10/09/16 05:45 PT 16.1 Seconds (9.9-11.8) H 10/08/16 06:00 INR 1.49 (0.93-1.08) H 10/08/16 06:00 APTT 30.3 Seconds (23.7-30.8) 10/08/16 06:00 Attending/Attestation - Attestation I have personally seen and examined this patient.: Yes I have fully participated in the care of the patient.: Yes I have reviewed all pertinent clinical information, including history, physical exam and plan: Yes Notes (Text): 10/09/16 17:01 Attending note; Patient seen and examined with resident and batch unloader in ICU. patient is a 56-year-old male with a history of alcohol abuse, cirrhosis is admitted with alcohol withdrawal symptoms. Patient was intubated. Off sedation. Patient is not following commands. hypotension resolved. Off pressors. Acute renal failure; creatinine Is 3.6. No significant electrolyte abnormality. nephrology evaluation appreciated. possible HTN vs glomerulonephritis secondary to hep C suspected. No need for emergency hemodialysis. Ascites; status post 2 L of ascitic fluid removed. culture is negative. hepatic encephalopathy; continue rifaximin. anemia; stool for occult blood is positive. Status post 3 unit PRBC transfusion. No active bleeding noted. Hemoglobin is 9.2. coagulopathy; status post FFP transfusion. Thrombocytopenia; 1 unit platelet transfusion given yesterday. monitor for bleeding. fungemia; started on mycofungin. We will remove A-line. We will change Picc line after platelet transfusion. Patient needs new PICC line or central line. The possibility of significant bleeding with procedures discussed with patient's in detail. C. difficile; continue vancomycin. Sepsis/pneumonia; continue meropenem. Continue tube feedings as tolerated. Had a long discussion with patient's . Currently patient is DNR. 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 Patient's prognosis discussed in detail. We will have another family meeting tomorrow to discuss further care.
--- NOTE | 2016-10-09 13:48 | PN ---
NEPHROLOGY FOLLOWUP NOTE DATE: SUBJECTIVE: A 56-year-old male with past medical history of alcohol abuse, hepatitis C, and admitted initially with alcohol withdrawal. Hospital course complicated by hypotension, SIRS/sepsis, hypercapnic and hypoxemic respiratory failure, and nephrology following for acute renal failure. The patient is still with minimal urine output, has been having intermittent tube feeds, having to be held due to high residual volumes. PHYSICAL EXAMINATION: VITAL SIGNS: This morning; blood pressure 113/64, heart rate 83, respirations 30, temperature 96.4, and O2 sat 100% on 40% FiO2 via mechanical ventilation. GENERAL: On minimal sedation, reactive to tactile stimuli. HEENT: Mildly icteric, moist mucous membranes. RESPIRATORY: Rales present. No rhonchi, tachypneic. HEART: S1 and S2 normal. No murmurs, no gallops, and no rubs. GASTROINTESTINAL: Abdomen is distended, draining noncloudy peritoneal fluid into bag. GENITOURINARY: Vyas in place. NEUROLOGIC: Not following commands. SKIN: Warm. No cyanosis. EXTREMITIES: Markedly edematous legs extending to abdominal wall. LABORATORY DATA: This morning CBC; WBC 4.7, hemoglobin 9.2, hematocrit 28.2, and platelets 29. Chemistry panel: Sodium 142, potassium 3.4, chloride 111, bicarbonate 24, BUN 58, creatinine 3.6, glucose 116, calcium 7.0, phosphorus 4.8, total bilirubin 2.4, and albumin 2.5. Urine lytes; urine sodium 35 and urine creatinine 273. ASSESSMENT AND PLAN: 1. Acute renal failure, oliguric renal failure likely secondary to acute glomerulonephritis in the setting of nonhepatitis C with marked hematuria and low complements (C3 and C4) also with urine sediment not indicative of acute tubular necrosis. The patient was started on high-dose Solu-Medrol 2 days ago; however, discontinued yesterday (dose not given) in the setting of fungemia. 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 The patient with very slow catabolic rate unclear why, but BUN, creatinine, potassium, and phosphorus increasing at very slow rate and is the reason why the patient does not need to be initiated on dialysis as of yet; however likely will need dialysis in the next 48 hours especially if FiO2 requirement worsens and pulmonary edema seen today again on chest x-ray worsens. I agree with holding IV fluids. Avoid supplementing potassium. 2. Sepsis. The patient with yeast and blood, sputum, and urine, currently on micafungin 100 mg daily. No renal dose adjustment needed, also on meropenem 250 mg q.12 hours correctly dosed for creatinine clearance less than 10. 3. Hypokalemia, very mild. Again, recommend to be very conservative and replenishing as potassium will increase overtime especially know that the patient being fed. 4. Hypernatremia, improved after starting half normal saline, but may need to stop right now due to worsening chest x-ray findings. 5. Hepatitis C with elevated viral load previously seen. 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 We will need outpatient hepatitis C treatment. 6. Hypercapnic respiratory failure, hypercapnia is improved. Etiology is unclear; however, the patient is still mildly hypercapnic despite increase respiratory rate on the vent and therefore, we will not be able to tolerate extubation. Critical care time spent assessing the patient and discussing with critical care and primary team over 35 minutes. Rusty Mcnulty MD
--- NOTE | 2016-10-09 14:33 | CP.PCM.PN ---
Subjective - Date & Time of Evaluation Date of Evaluation: 10/09/16 Time of Evaluation: 11:40 - Subjective Subjective: Patients /HCP, Sandra Kruger was at bedside to have discussion regarding the patients clinical status with myself and Dr Gauthier. Pt's was informed of the patients clinical status, the fungemia, oliguria, and likely the need for HD. Sandra Kruger informed us that she had extensive prior conversations with he patient about end of life goals/care, and that the patient would not have wanted to be artificially fed, on ventilator or be on HD. Pt made DNR by the . Will have another family meeting tomorrow with the , daughter Nasrin, and palliative care team. Objective - Vital Signs/Intake and Output Vital Signs (last 24 hours): Temp Pulse Resp BP Pulse Ox 97.2 F L 75 30 H 103/55 L 100 10/09/16 12:00 10/09/16 12:00 10/09/16 12:00 10/09/16 12:00 10/09/16 12:00 Intake and Output: 10/09/16 10/09/16 06:59 18:59 Intake Total 960 Output Total 1660 Balance -700 - Medications Medications: Current Medications Acetaminophen (Tylenol 160mg/5ml Oral Soln) 320 mg PO Q4 PRN PRN Reason: Fever >100.4 F Last Admin: 10/04/16 13:52 Dose: 320 mg Albuterol/Ipratropium (Duoneb 3 Mg/0.5 Mg (3 Ml) Ud) 3 ml IH [id number] [facility] Last Admin: 10/09/16 13:44 Dose: 3 ml Folic Acid (Folic Acid) 1 mg PO DAILY [facility] Last Admin: 10/09/16 09:02 Dose: 1 mg Fentanyl Citrate (Fentanyl Citrate/Sodium Chloride 1 Mg/100 Ml) 1,000 mcg in 100 mls @ 7.5 mls/hr IV .[id number] PRN; Protocol; 75 MCG/HR PRN Reason: TITRATE PER MD ORDER Last Titration: 10/08/16 08:34 Dose: 28 mcg/hr, 2.8 mls/hr Micafungin Sodium 100 mg/ (Sodium Chloride) 100 mls @ 100 mls/hr IV DAILY [facility] PRN Reason: Protocol Stop: 10/17/16 10:01 Last Admin: 10/09/16 09:05 Dose: 100 mls/hr Sodium Chloride (Sodium Chloride 0.45%) 1,000 mls @ 80 mls/hr IV .[id number] [facility] Last Admin: 10/09/16 00:56 Dose: 80 mls/hr Meropenem 250 mg/ Sodium (Chloride) 100 mls @ 100 mls/hr IVPB Q12H [facility] PRN Reason: Protocol Stop: 10/17/16 13:31 Last Admin: 10/09/16 00:55 Dose: 100 mls/hr Lorazepam (Ativan) 2 mg IVP Q2H PRN; Protocol PRN Reason: Agitation Last Admin: 10/07/16 05:33 Dose: 2 mg Midodrine (Proamatine) 5 mg PO TID [facility] Last Admin: 10/09/16 10:36 Dose: 5 mg Pantoprazole Sodium (Protonix Inj) 40 mg IVP DAILY [facility] Last Admin: 10/09/16 09:01 Dose: 40 mg Rifaximin (Xifaxan) 550 mg PO BID [facility] PRN Reason: Protocol Last Admin: 10/09/16 09:02 Dose: 550 mg Thiamine HCl (Vitamin B1 Tab) 100 mg PO DAILY [facility] Last Admin: 10/09/16 09:02 Dose: 100 mg Vancomycin HCl (Vancocin 25 Mg/Ml (Oral Use)) 125 mg PO Q6H [facility] PRN Reason: Protocol Last Admin: 10/09/16 10:35 Dose: 125 mg Vitamin A (Vitamin A & D Oint Ud Foilpak) 1 ea TOP DAILY [facility] Last Admin: 10/09/16 09:02 Dose: 1 ea Vitamin B Complex/Vit C/Folic Acid (Nephro-Mariann) 1 tab PO 0800 [facility] Last Admin: 10/09/16 08:45 Dose: 1 tab - Labs Labs: 10/09/16 05:45 10/09/16 05:45 PT 16.1 Seconds (9.9-11.8) H 10/08/16 06:00 INR 1.49 (0.93-1.08) H 10/08/16 06:00 APTT 30.3 Seconds (23.7-30.8) 10/08/16 06:00
[2016-10-09] MEDS: Fentanyl 1000mcg/100ml NS 1,000 MCG/100 ML BAG IV PRN (17:17)
[2016-10-10] MEDS: Albuterol-Ipratrop 3 mg / 0.5 (3 ml) UD IH SCH ×4 (02:50→20:00)
[2016-10-10] MEDS: Vancomycin 25 MG/ML PO SCH ×3 (05:12→17:00)
[2016-10-10 06:05] LABS: ARTERIAL BLOOD GAS HCO3 21.1 mmol/L (21-28); ARTERIAL BLOOD GAS O2 CAPACITY 14.9 mL/dl (16-24); ARTERIAL BLOOD GAS O2 CONTENT 14.5 ML/dl (15-23); ARTERIAL BLOOD GAS PH 7.26 (7.35-7.45); ARTERIAL BLOOD HGB O2 SAT 93.6 % (95.0-98.0); CARBOXYHEMOGLOBIN 2.6 % (0.5-1.5); HHB 2.9 % (0-5)
[2016-10-10 06:36] LABS: BASO # 0.02 K/mm3 (0.0-2.0); BASO % 0.3 % (0.0-3.0); GRAN # 5.11 (1.4-6.5); GRAN % 69.9 % (50.0-68.0); HEMATOCRIT 34.2 % (42.0-52.0); LYMPH # 1.9 (1.2-3.4); LYMPH % 25.4 % (22.0-35.0); MEAN CELL VOLUME 99.4 fl (80.0-105.0); MEAN CORPUSCULAR HEMOGLOBIN 32.3 pg (25.0-35.0); MEAN CORPUSCULAR HGB CONC 32.5 g/dl (31.0-37.0); MEAN PLATELET VOLUME 10.6 fl (7.0-11.0); MONO # 0.3 (0.1-0.6); MONO % 4.4 % (1.0-6.0); RED CELL DISTRIBUTION WIDTH 15.9 % (11.5-14.5); WHITE BLOOD COUNT 7.3 10^3/ul (4.5-11.0)
[2016-10-10 06:46] LABS: PLATELET COUNT 23 10^3/uL (120.0-450.0)
[2016-10-10 06:51] LABS: ALB/GLOB RATIO 1.1 (1.1-1.8); BILIRUBIN,TOTAL 3.4 mg/dL (0.2-1.3); CALCIUM 7.5 mg/dL (8.4-10.5); PHOSPHOROUS 4.4 mg/dL (2.5-4.5); POTASSIUM 3.9 mmol/L (3.6-5.0); TOTAL PROTEIN 5.1 g/dL (5.8-8.3)
--- NOTE | 2016-10-10 07:29 | RAD ---
HISTORY: mech vent COMPARISON: 10/09/2016 FINDINGS: LUNGS: No active pulmonary disease. PLEURA: No significant pleural effusion identified, no pneumothorax apparent. CARDIOVASCULAR: Normal heart size. ET tube and NG tube grossly unchanged. OSSEOUS STRUCTURES: No significant abnormalities. VISUALIZED UPPER ABDOMEN: Normal. OTHER FINDINGS: None. IMPRESSION: No acute infiltrate. ET tube and NG tube unchanged grossly.
--- NOTE | 2016-10-10 08:20 | PN ---
NEPHROLOGY FOLLOWUP NOTE SUBJECTIVE: A 56-year-old male with past medical history of hepatitis C, alcohol abuse with cirrhosis, admitted initially with alcohol withdrawal and severe electrolyte abnormalities. Hospital course is complicated by acute hypercapnic and hypoxemic respiratory failure and acute renal failure with C. diff positive, Nephrology following for acute renal failure. Per nursing staff, the patient with no more diarrhea since past 2 days; otherwise, the patient is still intubated and sedated. PHYSICAL EXAMINATION: VITAL SIGNS: This morning, blood pressure 125/79, heart rate 85, respirations 36, O2 sat 93% on 40% of FiO2 via mechanical ventilation. GENERAL: Intubated and sedated. Opens eyes to tactile stimuli. HEENT: Moist mucous membranes. Mildly icteric. RESPIRATORY: Mild left basilar rales. HEART: S1 and S2 positive. No murmurs. No gallops. No rubs. GI: Abdomen is soft and distended. : Vyas in place. EXTREMITIES: Moderately edematous legs, extending to abdomen. NEURO: Sedated, not responding to verbal stimuli. SKIN: Warm to touch, petechiae noted in toes non-blanching, otherwise, only with small areas of blanching lesions appreciated and nonpalpable. LABORATORY DATA: This morning, CBC: WBC 3.0, hemoglobin 8.2, hematocrit 24.6, platelets 37. Coags, INR 1.56, PTT 35.0, fibrinogen 112. Chemistry panel: Sodium 143, potassium 2.7, chloride 110, bicarbonate 24, BUN 32, creatinine 2.5 (increased from 25 and 2.0 yesterday), glucose 108, calcium 6.9, phosphorus 3.5, magnesium 2.0, T-bili 2.6, AST 94, ALT 62, albumin 2.7. Complements C3 40, C4 less than 8. Chest x-ray from this morning reported as bilateral pulmonary infiltrates, right greater than left. ASSESSMENT AND PLAN: 1. Acute renal failure, oligo-anuric renal failure in the setting of sepsis and hypotension is consistent with acute tubular necrosis; however, urine sediment not showing significant number of granular casts as would be expected rather what is most glaring is the amount of hematuria with RBCs too numerous to count, mostly isomorphic, occasionally questionable dysmorphic cells, but none classically dysmorphic. 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 The [id number] also with low fractional excretion of sodium (FENA) which despite having been given adequate volume resuscitation, which can be seen in an acute glomerulonephritis. 2. The patient ideally needs renal biopsy; however, with marked thrombocytopenia, this will be somewhat risky procedure. PLAN: 1. Check repeat urine lytes with urine sodium and creatinine. 2. Checking rheumatoid factor and cryoglobulin assay. 3. Continue volume repletion with NS at 125 mL per hour. We will give pulse Solu-Medrol 1 g daily x3 days. 4. No urgent indication for hemodialysis, given that the patient has stable FiO2 requirement with no hyperkalemia or metabolic acidosis, however, will likely need initiation of hemodialysis within the next 24 to 48 hours. Family is agreeable for this and this option should be given to them given that the patient may have a reversible cause of acute renal failure as well as the patient/s overall improving clinical condition. 5. Hypokalemia. The patient is with no more GI losses per nursing staff. Getting potassium repletion with 60 mEq total of IV potassium chloride. We will add potassium 40 mEq per liter into IV fluids. 6. Hypercapnic respiratory failure, much improved with pCO2 down to 43, unclear cause of acute hypercapnia and unclear why it has been resolving. 7. Possibility does exist for pulmonary renal syndrome. No blood reported in endotracheal secretions. Possibility that steroids may have helped. Continue to monitor for now. 8. Hypocalcemia, mild when corrected for serum albumin. Avoid giving IV calcium unless the patient is hypotensive or has symptomatic hypocalcemia. 9. Hepatitis C. The patient with elevated viral load on assay done back in April. Recommend to repeat, will need outpatient treatment. 10. Pancytopenia, possibly bone marrow suppression due to alcohol abuse, may need platelet transfusion, especially if considering renal biopsy. Rusty Mcnulty MD
[2016-10-10] MEDS: Multivitamin Vitamin B Complex (Nephro-Vite) Tab PO SCH (08:56)
[2016-10-10] MEDS: Vitamins A & D Oint UD Foilpak TOP SCH (09:58)
[2016-10-10] MEDS: Micafungin 100 MG in Sodium Chloride 0.9% 100 ML IV SCH (10:27)
--- NOTE | 2016-10-10 10:28 | CP.PCM.PN ---
<Justo Torres - Last Filed: 10/10/16 10:24> Subjective - Date & Time of Evaluation Date of Evaluation: 10/10/16 Time of Evaluation: 09:26 - Subjective Subjective: This patient was seen resting at bedside. The patient remains intubated. Per nursing there were no acute events overnight. ROS remains unobtainable due to his intubation status. Objective - Vital Signs/Intake and Output Vital Signs (last 24 hours): Temp Pulse Resp BP Pulse Ox 98.4 F 95 H 33 H 120/76 97 10/10/16 06:30 10/10/16 06:30 10/10/16 07:37 10/10/16 06:30 10/10/16 07:37 Intake and Output: 10/10/16 10/10/16 06:59 18:59 Intake Total 954 Output Total 1100 Balance -146 - Medications Medications: Current Medications Acetaminophen (Tylenol 160mg/5ml Oral Soln) 320 mg PO Q4 PRN PRN Reason: Fever >100.4 F Last Admin: 10/04/16 13:52 Dose: 320 mg Albuterol/Ipratropium (Duoneb 3 Mg/0.5 Mg (3 Ml) Ud) 3 ml IH [id number] [facility] Last Admin: 10/10/16 07:32 Dose: 3 ml Folic Acid (Folic Acid) 1 mg PO DAILY [facility] Last Admin: 10/10/16 09:56 Dose: 1 mg Fentanyl Citrate (Fentanyl Citrate/Sodium Chloride 1 Mg/100 Ml) 1,000 mcg in 100 mls @ 7.5 mls/hr IV .[id number] PRN; Protocol; 75 MCG/HR PRN Reason: TITRATE PER MD ORDER Last Titration: 10/09/16 18:40 Dose: 25 mcg/hr, 2.5 mls/hr Micafungin Sodium 100 mg/ (Sodium Chloride) 100 mls @ 100 mls/hr IV DAILY [facility] PRN Reason: Protocol Stop: 10/17/16 10:01 Last Admin: 10/09/16 09:05 Dose: 100 mls/hr Sodium Chloride (Sodium Chloride 0.45%) 1,000 mls @ 80 mls/hr IV .[id number] [facility] Last Admin: 10/09/16 13:00 Dose: Not Given Meropenem 250 mg/ Sodium (Chloride) 100 mls @ 100 mls/hr IVPB Q12H [facility] PRN Reason: Protocol Stop: 10/17/16 13:31 Last Admin: 10/10/16 00:40 Dose: 100 mls/hr Lorazepam (Ativan) 2 mg IVP Q2H PRN; Protocol PRN Reason: Agitation Last Admin: 10/07/16 05:33 Dose: 2 mg Metoclopramide HCl (Reglan) 10 mg IVP Q6H PRN PRN Reason: Other Last Admin: 10/09/16 17:13 Dose: 10 mg Midodrine (Proamatine) 5 mg PO TID [facility] Last Admin: 10/10/16 09:56 Dose: 5 mg Pantoprazole Sodium (Protonix Inj) 40 mg IVP DAILY [facility] Last Admin: 10/10/16 09:55 Dose: 40 mg Rifaximin (Xifaxan) 550 mg PO BID [facility] PRN Reason: Protocol Last Admin: 10/10/16 09:56 Dose: 550 mg Thiamine HCl (Vitamin B1 Tab) 100 mg PO DAILY [facility] Last Admin: 10/10/16 09:56 Dose: 100 mg Vancomycin HCl (Vancocin 25 Mg/Ml (Oral Use)) 125 mg PO Q6H [facility] PRN Reason: Protocol Last Admin: 10/10/16 10:03 Dose: 125 mg Vitamin A (Vitamin A & D Oint Ud Foilpak) 1 ea TOP DAILY [facility] Last Admin: 10/10/16 09:58 Dose: 1 ea Vitamin B Complex/Vit C/Folic Acid (Nephro-Mariann) 1 tab PO 0800 [facility] Last Admin: 10/10/16 08:56 Dose: 1 tab - Labs Labs: 10/10/16 06:25 10/10/16 06:25 PT 16.1 Seconds (9.9-11.8) H 10/08/16 06:00 INR 1.49 (0.93-1.08) H 10/08/16 06:00 APTT 30.3 Seconds (23.7-30.8) 10/08/16 06:00 - Head Exam Head Exam: ATRAUMATIC, NORMAL INSPECTION, NORMOCEPHALIC - Eye Exam Pupil Exam: PERRL - ENT Exam ENT Exam: Mucous Membranes Moist - Respiratory Exam Respiratory Exam: Clear to Ausculation Bilateral, NORMAL BREATHING PATTERN. absent: Respiratory Distress - Cardiovascular Exam Cardiovascular Exam: REGULAR RHYTHM, +S1, +S2. absent: Rubs - GI/Abdominal Exam GI & Abdominal Exam: Soft, Normal Bowel Sounds. absent: Guarding, Rigid - Neurological Exam Neurological Exam: Altered - Skin Skin Exam: Mottled Assessment and Plan - Assessment and Plan (Free Text) Assessment: 1. Hypercapnic Respiratory Failure -Patient intubated on 10/05. Today: FiO2= 40%, RR=26, PEEP=5, and Tidal Volume= 400ml, O2 Saturation=97 % -ABG: pCO2-47, pO2-73, HCO3-21.1, pH-7.26 -Patient remains slightly hypotensive (103/72) however remains off pressors. -Cardio Following -Continue to monitor vitals. 2. Acute renal failure most likely secondary to Acute glomerulonephrits -Possible need for output. Per she has refused HD at this time. Another scheduled appointment is to happen today with the daughter. -Urine output is 80ml and it still remains a dark reddish color. -Nephrology consult and note appreciated. 3.Pulmonary -CXR: no signs of acute pulmonary disease. Continue to monitor with repeast CXR' s and vital signs. -Blood cx final results grew Tom albicans. Continue Micafungin. Continue to monitor 4.Thrombocytopenia -Plt count 29( no change from 10/09). Consider another platelet transfusion is plt count drops below 20. Monitor for bleeding. 5.Ascites -s/p ascitic fluid removed on 10/05. -Site where patient was tapped was closed and belly is beginning to enlarge slightly. Monitor for further changes. -Culture shows no grow after 96 hours. 6. Hepatic encephalopathy -continue Rifaxamin 7.Anemia -Stool occult blood positive on 10/05. -Hgb:9.2 (up from 9.0 on 10/09) and Hct: 28.2 (up from 27.7). Patient is s/p 3 units leukocyte reduced PRBC's. Continue to monitor H/H levels with serial cbc' s. 8.C. Diff infection -continue Vancomycin 9.GI ppx -continue Protonix 10.DVT ppx -continue SCD's <Mell Gauthier - Last Filed: 10/11/16 07:44> Objective - Vital Signs/Intake and Output Vital Signs (last 24 hours): Temp Pulse Resp BP Pulse Ox 100.9 F H 103 H 33 H 121/63 80 L 10/11/16 04:59 10/11/16 04:59 10/10/16 07:37 10/11/16 05:00 10/10/16 23:00 Intake and Output: 10/11/16 10/11/16 06:59 18:59 Intake Total 1220 760 Output Total 900 825 Balance 320 -65 - Medications Medications: Current Medications Acetaminophen (Tylenol 160mg/5ml Oral Soln) 320 mg PO Q4 PRN PRN Reason: Fever >100.4 F Last Admin: 10/04/16 13:52 Dose: 320 mg Albuterol/Ipratropium (Duoneb 3 Mg/0.5 Mg (3 Ml) Ud) 3 ml IH [id number] [facility] Last Admin: 10/11/16 07:28 Dose: 3 ml Artificial Tears (Artificial Tears Opht Oint) 1 gm OU Q6 [facility] Last Admin: 10/11/16 05:26 Dose: 1 gm Folic Acid (Folic Acid) 1 mg PO DAILY [facility] Last Admin: 10/10/16 09:56 Dose: 1 mg Fentanyl Citrate (Fentanyl Citrate/Sodium Chloride 1 Mg/100 Ml) 1,000 mcg in 100 mls @ 7.5 mls/hr IV .[id number] PRN; Protocol; 75 MCG/HR PRN Reason: TITRATE PER MD ORDER Last Titration: 10/09/16 18:40 Dose: 25 mcg/hr, 2.5 mls/hr Micafungin Sodium 100 mg/ (Sodium Chloride) 100 mls @ 100 mls/hr IV DAILY [facility] PRN Reason: Protocol Stop: 10/17/16 10:01 Last Admin: 10/10/16 10:27 Dose: 100 mls/hr Sodium Chloride (Sodium Chloride 0.45%) 1,000 mls @ 80 mls/hr IV .[id number] [facility] Last Admin: 10/09/16 13:00 Dose: Not Given Meropenem 250 mg/ Sodium (Chloride) 100 mls @ 100 mls/hr IVPB Q12H [facility] PRN Reason: Protocol Stop: 10/17/16 13:31 Last Admin: 10/11/16 03:01 Dose: 100 mls/hr Amikacin Sulfate 500 mg/ (Dextrose) 102 mls @ 204 mls/hr IVPB ONCE ONE PRN Reason: Protocol Stop: 10/11/16 07:59 Lorazepam (Ativan) 2 mg IVP Q2H PRN; Protocol PRN Reason: Agitation Last Admin: 10/07/16 05:33 Dose: 2 mg Metoclopramide HCl (Reglan) 10 mg IVP Q6H PRN PRN Reason: Other Last Admin: 10/09/16 17:13 Dose: 10 mg Midodrine (Proamatine) 5 mg PO TID [facility] Last Admin: 10/10/16 18:30 Dose: 5 mg Pantoprazole Sodium (Protonix Inj) 40 mg IVP DAILY [facility] Last Admin: 10/10/16 09:55 Dose: 40 mg Rifaximin (Xifaxan) 550 mg PO BID [facility] PRN Reason: Protocol Last Admin: 10/10/16 18:25 Dose: 550 mg Thiamine HCl (Vitamin B1 Tab) 100 mg PO DAILY [facility] Last Admin: 10/10/16 09:56 Dose: 100 mg Vancomycin HCl (Vancocin 25 Mg/Ml (Oral Use)) 125 mg PO Q6H [facility] PRN Reason: Protocol Last Admin: 10/11/16 05:26 Dose: 125 mg Vitamin A (Vitamin A & D Oint Ud Foilpak) 1 ea TOP DAILY [facility] Last Admin: 10/10/16 09:58 Dose: 1 ea Vitamin B Complex/Vit C/Folic Acid (Nephro-Mariann) 1 tab PO 0800 [facility] Last Admin: 10/10/16 08:56 Dose: 1 tab - Labs Labs: 10/11/16 06:01 10/11/16 06:01 PT 16.1 Seconds (9.9-11.8) H 10/10/16 11:48 INR 1.49 (0.93-1.08) H 10/10/16 11:48 APTT 30.3 Seconds (23.7-30.8) 10/10/16 11:48 Attending/Attestation - Attestation I have personally seen and examined this patient.: Yes I have fully participated in the care of the patient.: Yes I have reviewed all pertinent clinical information, including history, physical exam and plan: Yes Notes (Text): 10/11/16 07:36 Attending note; Patient seen and examined with resident and bench mechanic in ICU. patient is a 56-year-old male with a history of alcohol abuse, cirrhosis is admitted with alcohol withdrawal symptoms. Patient is currently intubated. still not awake, following commands. Not a candidate for weaning protocol today. hypotension resolved. Off pressors. Acute renal failure; creatinine Is 3.8. nephrology evaluation appreciated. possible HTN vs glomerulonephritis secondary to hep C suspected. No need for emergency hemodialysis. monitor closely. Ascites; status post 2 L of ascitic fluid removed. culture is negative. hepatic encephalopathy; continue rifaximin. anemia; Status post 3 unit PRBC transfusion. HB is 11. No active bleeding noted. coagulopathy; status post FFP transfusion. Thrombocytopenia; 1 unit platelet transfusion given yesterday. Platelet is 23. monitor for bleeding. sepsis/fungemia; with tom albicans. on mycofungin. All lines removed. C. difficile; continue vancomycin. Sepsis/pneumonia; continue meropenem. Continue tube feedings as tolerated. Had a long discussion with patient's , daughter. Currently patient is DNR. binder caser evaluation appreciated. Patient's prognosis discussed in detail. continue current care with DNR status for now.
--- NOTE | 2016-10-10 10:34 | CP.CCUPN ---
<KENDY CERNA - Last Filed: 10/10/16 12:58> CCU Subjective - Physician Review Subjective (Free Text): 10/10/16 10:34 Patient seen and assessed at bedside. Patient intubated and sedated during exam. ROS unobtainable due to patients clinical condition. No acute events overnight were reported by nursing staff. CCU Objective - Vital Signs / Intake & Output Vital Signs (Last 4 hours): Vital Signs Temp Pulse Resp BP Pulse Ox 10/10/16 07:37 33 H 97 10/10/16 06:30 98.4 F 95 H 120/76 96 Intake and Output (Last 8hrs): Intake & Output 10/09/16 10/10/16 10/10/16 22:59 06:59 14:59 Intake Total 1919 Output Total 2200 Balance -281 Weight 243 lb Intake: IV 811 Left Wrist 440 Right Forearm 40 Right Upper arm 320 Oral 120 Tube Feeding 400 Blood Product 588 Output: Drainage 1600 Paracentesis 1600 Urine 200 Urethral (Vyas) 200 Other 400 Other: Voiding Method Indwelling Catheter Indwelling Catheter # Bowel Movements 2 - Physical Exam Head: Positive for: Atraumatic, Normocephalic Pupils: Positive for: PERRL, Sluggish Conjunctiva: Positive for: Normal Ears: Positive for: Normal Mouth: Positive for: Moist Mucous Membranes, Other (ET and OG tube in position in oral cavity) Nose (External): Positive for: Atraumatic Neck: Positive for: Trachea Midline, Other. Negative for: Lymphadenopathy Respiratory/Chest: Positive for: Good Air Exchange, Tachypneic, Other ( Mechanical ventilation, coarse breath sounds L>R). Negative for: Respiratory Distress, Accessory Muscle Use, Wheezes, Decreased Breath Sounds, Retracting, Rhonchi Cardiovascular: Positive for: Regular Rate and Rhythm, Normal S1, S2. Negative for: Murmurs Abdomen: Positive for: Normal Bowel Sounds, Other (Paracentesis site with sutures, no signs of infection). Negative for: Tenderness, Distention, Peritoneal Signs Genitourinary Male: Positive for: Testicle Swelling, Other (Vyas in place) Upper Extremity: Positive for: Edema (3+ pitting edema B/L UE). Negative for: Normal Inspection (Multiple areas of ecchymoses), Cyanosis Lower Extremity: Positive for: Edema (2+ Pitting edema B/L up to thighs). Negative for: Normal Inspection Neurological: Negative for: GCS=15 (intubated/sedated, unable to assess), Speech Normal Skin: Positive for: Warm, Dry, Other (Areas of serous weeping from multiple areas of skin). Negative for: Rashes, Normal Color (multiple ecchymoses over UE B/L) Psychiatric: Negative for: Alert (sedated, arousable to tactile stimuli), Oriented x 3 - Medications Active Medications: Active Medications Generic Name Dose Route Start Last Admin Trade Name Freq PRN Reason Stop Dose Admin Acetaminophen 320 mg 10/03/16 07:45 10/04/16 13:52 Tylenol 160mg/5ml Oral Soln PO 320 mg Q4 PRN Administration Fever >100.4 F Albuterol/Ipratropium 3 ml 10/05/16 08:00 10/10/16 07:32 Duoneb 3 Mg/0.5 Mg (3 Ml) Ud IH 3 ml [id number] TONI Administration Folic Acid 1 mg 10/03/16 10:00 10/10/16 09:56 Folic Acid PO 1 mg DAILY TONI Administration Fentanyl Citrate 1,000 mcg in 100 mls @ 7.5 mls/hr 10/05/16 07:39 10/09/16 18 :40 Fentanyl Citrate/Sodium Chloride 1 Mg/100 Ml IV 25 mcg/hr .[id number] PRN 2.5 mls/hr TITRATE PER MD ORDER Titration Protocol 75 MCG/HR Micafungin Sodium 100 mg/ 100 mls @ 100 mls/hr 10/08/16 10:00 10/10/16 10:27 Sodium Chloride IV 10/17/16 10:01 100 mls/hr DAILY TONI Administration Protocol Sodium Chloride 1,000 mls @ 80 mls/hr 10/08/16 12:15 10/09/16 13:00 Sodium Chloride 0.45% IV Not Given .[id number] TONI Meropenem 250 mg/ Sodium 100 mls @ 100 mls/hr 10/08/16 13:30 10/10/16 00:40 Chloride IVPB 10/17/16 13:31 100 mls/hr Q12H TONI Administration Protocol Lorazepam 2 mg 10/02/16 21:28 10/07/16 05:33 Ativan IVP 2 mg Q2H PRN Administration Agitation Protocol Metoclopramide HCl 10 mg 10/09/16 16:56 10/09/16 17:13 Reglan IVP 10 mg Q6H PRN Administration Other Midodrine 5 mg 10/09/16 10:00 10/10/16 09:56 Proamatine PO 5 mg TID TONI Administration Pantoprazole Sodium 40 mg 10/03/16 10:00 10/10/16 09:55 Protonix Inj IVP 40 mg DAILY TONI Administration Rifaximin 550 mg 10/05/16 10:00 10/10/16 09:56 Xifaxan PO 550 mg BID TONI Administration Protocol Thiamine HCl 100 mg 10/03/16 10:00 10/10/16 09:56 Vitamin B1 Tab PO 100 mg DAILY TONI Administration Vancomycin HCl 125 mg 10/03/16 11:00 10/10/16 10:03 Vancocin 25 Mg/Ml (Oral Use) PO 125 mg Q6H TONI Administration Protocol Vitamin A 1 ea 10/03/16 10:00 10/10/16 09:58 Vitamin A & D Oint Ud Foilpak TOP 1 ea DAILY TONI Administration Vitamin B Complex/Vit C/Folic Acid 1 tab 10/03/16 08:00 10/10/16 08:56 Nephro-Mariann PO 1 tab 0800 TONI Administration - Patient Studies Lab Studies: Microbiology Studies 10/08/16 14:05 Blood Culture - Preliminary Blood NO GROWTH AFTER 24 HOURS 10/08/16 13:50 Blood Culture - Preliminary Blood NO GROWTH AFTER 24 HOURS 10/05/16 08:23 Gram Stain - Final Peritoneal Fluid Body Fluid Culture - Final NO GROWTH AFTER 4 DAYS 10/05/16 13:00 Blood Culture - Final Blood-Venous Tom Albicans Gram Stain - Final Lab Studies 10/10/16 10/10/16 10/10/16 Range/Units 06:25 06:25 05:50 WBC 7.3 D (4.5-11.0) 10^3/ul RBC 3.44 L (3.5-6.1) 10^6/uL Hgb 11.1 L (14.0-18.0) g/dL Hct 34.2 L (42.0-52.0) % MCV 99.4 (80.0-105.0) fl MCH 32.3 (25.0-35.0) pg MCHC 32.5 (31.0-37.0) g/dl RDW 15.9 H (11.5-14.5) % Plt Count 23 L* (120.0-450.0) 10^3/uL MPV 10.6 (7.0-11.0) fl Gran % 69.9 H (50.0-68.0) % Lymph % (Auto) 25.4 (22.0-35.0) % Noble % (Auto) 4.4 (1.0-6.0) % Eos % (Auto) 0.0 L (1.5-5.0) % Baso % (Auto) 0.3 (0.0-3.0) % Gran # 5.11 (1.4-6.5) Lymph # 1.9 (1.2-3.4) Noble # 0.3 (0.1-0.6) Eos # 0.0 (0.0-0.7) Baso # 0.02 (0.0-2.0) K/mm3 pCO2 47 H (35-45) mm/Hg pO2 73.0 L (80-100) mm/Hg HCO3 21.1 (21-28) mmol/L ABG pH 7.26 L (7.35-7.45) ABG Total CO2 22.5 (22-28) mmol.L ABG O2 Saturation 97.0 (95-98) % ABG O2 Content 14.5 L (15-23) ML/dl ABG Base Excess -5.9 L (-2.0-3.0) mmol/L ABG Hemoglobin 11.0 L (11.7-17.4) g/dL ABG Carboxyhemoglobin 2.6 H (0.5-1.5) % POC ABG HHb (Measured) 2.9 (0-5) % ABG Methemoglobin 1.0 (0.0-3.0) % ABG O2 Capacity 14.9 L (16-24) mL/dl Hgb O2 Saturation 93.6 L (95.0-98.0) % FiO2 40.0 % Sodium 142 (132-148) mmol/L Potassium 3.9 (3.6-5.0) mmol/L Chloride 112 H (98-107) mmol/L Carbon Dioxide 19 L (21-33) mmol/L Anion Gap 15 (10-20) BUN 71 H (7-21) mg/dL Creatinine 3.9 H (0.5-1.4) mg/dL Est GFR ( Amer) 19 Est GFR (Non-Af Amer) 16 POC Glucose (mg/dL) (65-110) mg/dL Random Glucose 97 (70-110) mg/dL Calcium 7.5 L (8.4-10.5) mg/dL Phosphorus 4.4 (2.5-4.5) mg/dL Magnesium 2.0 (1.7-2.2) mg/dL Total Bilirubin 3.4 H (0.2-1.3) mg/dL AST 104 H D (17-59) U/L ALT 58 H (7-56) U/L Alkaline Phosphatase 94 (38-126) U/L Total Protein 5.1 L (5.8-8.3) g/dL Albumin 2.6 L (3.0-4.8) g/dL Globulin 2.4 gm/dL Albumin/Globulin Ratio 1.1 (1.1-1.8) 10/09/16 Range/Units 16:38 WBC (4.5-11.0) 10^3/ul RBC (3.5-6.1) 10^6/uL Hgb (14.0-18.0) g/dL Hct (42.0-52.0) % MCV (80.0-105.0) fl MCH (25.0-35.0) pg MCHC (31.0-37.0) g/dl RDW (11.5-14.5) % Plt Count (120.0-450.0) 10^3/uL MPV (7.0-11.0) fl Gran % (50.0-68.0) % Lymph % (Auto) (22.0-35.0) % Noble % (Auto) (1.0-6.0) % Eos % (Auto) (1.5-5.0) % Baso % (Auto) (0.0-3.0) % Gran # (1.4-6.5) Lymph # (1.2-3.4) Noble # (0.1-0.6) Eos # (0.0-0.7) Baso # (0.0-2.0) K/mm3 pCO2 (35-45) mm/Hg pO2 (80-100) mm/Hg HCO3 (21-28) mmol/L ABG pH (7.35-7.45) ABG Total CO2 (22-28) mmol.L ABG O2 Saturation (95-98) % ABG O2 Content (15-23) ML/dl ABG Base Excess (-2.0-3.0) mmol/L ABG Hemoglobin (11.7-17.4) g/dL ABG Carboxyhemoglobin (0.5-1.5) % POC ABG HHb (Measured) (0-5) % ABG Methemoglobin (0.0-3.0) % ABG O2 Capacity (16-24) mL/dl Hgb O2 Saturation (95.0-98.0) % FiO2 % Sodium (132-148) mmol/L Potassium (3.6-5.0) mmol/L Chloride (98-107) mmol/L Carbon Dioxide (21-33) mmol/L Anion Gap (10-20) BUN (7-21) mg/dL Creatinine (0.5-1.4) mg/dL Est GFR ( Amer) Est GFR (Non-Af Amer) POC Glucose (mg/dL) 105 (65-110) mg/dL Random Glucose (70-110) mg/dL Calcium (8.4-10.5) mg/dL Phosphorus (2.5-4.5) mg/dL Magnesium (1.7-2.2) mg/dL Total Bilirubin (0.2-1.3) mg/dL AST (17-59) U/L ALT (7-56) U/L Alkaline Phosphatase (38-126) U/L Total Protein (5.8-8.3) g/dL Albumin (3.0-4.8) g/dL Globulin gm/dL Albumin/Globulin Ratio (1.1-1.8) Laboratory Results - last 24 hr 10/09/16 10/10/16 10/10/16 16:38 05:50 06:25 WBC 7.3 D RBC 3.44 L Hgb 11.1 L Hct 34.2 L MCV 99.4 MCH 32.3 MCHC 32.5 RDW 15.9 H Plt Count 23 L* MPV 10.6 Gran % 69.9 H Lymph % (Auto) 25.4 Noble % (Auto) 4.4 Eos % (Auto) 0.0 L Baso % (Auto) 0.3 Gran # 5.11 Lymph # 1.9 Noble # 0.3 Eos # 0.0 Baso # 0.02 pCO2 47 H pO2 73.0 L HCO3 21.1 ABG pH 7.26 L ABG Total CO2 22.5 ABG O2 Saturation 97.0 ABG O2 Content 14.5 L ABG Base Excess -5.9 L ABG Hemoglobin 11.0 L ABG Carboxyhemoglobin 2.6 H POC ABG HHb (Measured) 2.9 ABG Methemoglobin 1.0 ABG O2 Capacity 14.9 L Hgb O2 Saturation 93.6 L FiO2 40.0 Sodium Potassium Chloride Carbon Dioxide Anion Gap BUN Creatinine Est GFR ( Amer) Est GFR (Non-Af Amer) POC Glucose (mg/dL) 105 Random Glucose Calcium Phosphorus Magnesium Total Bilirubin AST ALT Alkaline Phosphatase Total Protein Albumin Globulin Albumin/Globulin Ratio 10/10/16 06:25 WBC RBC Hgb Hct MCV MCH MCHC RDW Plt Count MPV Gran % Lymph % (Auto) Noble % (Auto) Eos % (Auto) Baso % (Auto) Gran # Lymph # Noble # Eos # Baso # pCO2 pO2 HCO3 ABG pH ABG Total CO2 ABG O2 Saturation ABG O2 Content ABG Base Excess ABG Hemoglobin ABG Carboxyhemoglobin POC ABG HHb (Measured) ABG Methemoglobin ABG O2 Capacity Hgb O2 Saturation FiO2 Sodium 142 Potassium 3.9 Chloride 112 H Carbon Dioxide 19 L Anion Gap 15 BUN 71 H Creatinine 3.9 H Est GFR ( Amer) 19 Est GFR (Non-Af Amer) 16 POC Glucose (mg/dL) Random Glucose 97 Calcium 7.5 L Phosphorus 4.4 Magnesium 2.0 Total Bilirubin 3.4 H AST 104 H D ALT 58 H Alkaline Phosphatase 94 Total Protein 5.1 L Albumin 2.6 L Globulin 2.4 Albumin/Globulin Ratio 1.1 Fingerstick Blood Sugar Results: 105 Review of Systems - Review of Systems Review of Systems: Please refer to HPI Critical Care Progress Note - Ventilator Checklist Head of Bed 30 Degrees: Yes Daily Assessment of Readiness to Wean: Yes PUD Prophalyxis: Yes (Protonix) DVT Prophylaxis: Yes (SCD) - Vent Settings MODE:: PRVC TIDAL VOLUME:: 400 RESP RATE:: 26 FIO2:: 40 PEEP:: 5 - Extremities/Vascular Does the Patient have a Central Venous Catheter?: No Does the Patient have a Vyas Catheter?: Yes - Restraints Justification for Restraints: High risk for removing IV access - Prophylaxis GI Prophylaxis GI: PPI - Prophylaxis DVT Prophylaxis DVT: SCDs Assessment/Plan - Assessment and Plan (Free Text) Assessment: 56 year old male with an initial presentation of AMS in the setting of persistent hypokalemia and alcohol withdrawal, which resolved. Patient was then intubated after he was found to be in hypercapnic respiratory failure and subsequently became hemodynamically unstable requiring dual vasopressor support. His presentation is consistent with distributive shock likely from either acute decompensated chronic liver failure or sepsis from C. Diff colitis , with multiorgan dysfunction syndrome including renal failure, encephalopathy and respiratory failure. Patient is no longer requiring vasopressin or levophed for hemodynamic support but is on midodrine. Plan: Neuro: -CT head showed on 10/02 no acute findings in the brain and no acute hemorrhages or infarcts, age related cortical atrophy and ventriculomegaly -Currently intubated and sedated on Fentanyl drip at 75mcg/hr -Continue Ativan 2mg IVP Q2H PRN for symptoms of alcohol withdrawal -Continue Thiamine, Folic Acid and MV supplementation -Continue soft bilateral upper limb restraints, seizure, aspiration and fall precautions Pulm: Mechanical ventilation settings currently at: FiO2-40 PEEP-5 RR-26 Tidal Volume-400 -Chest X-Ray on 10/10 showed no acute infiltrate with ET and OG tube unchanged grossly -Will continue protective lung ventilator strategy -Continue Duonebs 3ml IH [id number] for wheezing Cardio: -EKG done on 10/05 shows sinus tachycardia at a rate of 106 and low voltage QRS with a non-specific t-wave abnormality -ECHO pending -Continue midodrine 5mg PO TID -Cardiology consulted, appreciate all recommendations GI: -CT abdomen/pelvis done on 10/04 showed possible sigmoid colitis, mild-to- moderate abdominal and pelvic ascites, free intrarenal gas or definite bowel obstruction, and hepatosplenomegaly again identified as well as diffuse fatty infiltration of liver -Approximately 2.5L of fluid removed via paracentesis on 10/05 with appropriate albumin resuscitation provided -Ascites predominantly lymphocytic, will await cytology results to rule out malignancy -Continue Merrem 250mg IVPB Q12H, and Vancomycin 125mg PO Q6H for C. Difficile, per ID -AST/ALT at 104/53 with T. Bili at 3.4, currently uptrending -MELD score of 22 points correlated with 19.6% three month mortality and Child- [place] Class C, 82% abdominal surgery perioperative mortality with a life expectancy of 1-3 years -Continue Rifaximin 550mg PO BID for hepatic encephalopathy -INR/PTT pending -Continue with Nepro tube feedings at 25ml/hr and increase by 10ml/hr as tolerated -Continue Reglan 10mg IVP Q6H PRN for residual tube feeding -GI consulted, all recommendations appreciated Renal: -BUN/Creatinine at 71/3.9, representing worsening acute renal failure -Cryoglobulin, Rheumatoid Factor, PEEWEE, Urine Total Protein pending -Vyas catheter in place and only draining 100cc of dark cloudy urine over the past 24 hours -Will continue to replete calcium, magnesium, phosphorus and potassium as needed -Will continue to monitor with serial CMP's, magnesium and phosphorous levels -Family stating that patient would not have wanted dialysis in this situation -Nephrology consulted, all recommendations appreciated Heme/Onc: -H/H at 11.1/34.2 -Platelets at 23, despite three units of platelets given -Fibrinogen at 112, indicating DIC less likely -Will continue to monitor with serial CBC's -LE duplex showed no DVT's ID: -Currently afebrile, with last fever of 10/04 -Currently on Micafungin 100mg IV daily (day 3), Merrem 250mg IVPB Q12 (day 7), and Vancomycin 125mg PO Q6 (day 8 of PO/day 9 overall) -Blood, sputum and urine cultures growing tom albicans; all lines removed and have been replaced as needed -C. Diff antigen positive and toxin negative -MRSA screen negative -Procal 4.12 -Continue Tylenol 320mg (Liquid) PO Q4 PRN for fever over 100.4, -ID consulted, all recommendations appreciated Endocrine: -Will maintain euglycemic with blood glucose between 140 and 180 Lines: -All previous peripheral lines, A-line in left femoral and PICC in right brachial removed -Continue all new peripheral lines GI Prophylaxis: Protonix DVT Prophylaxis: SCD's Disposition: Daughter, Nasrin Kruger, is listed as patients next of kin, which is per patients request. All medical decision making has been made with the approval of Nasrin Kruger, who has specifically requested that her mother be a part of decision making as well as this burden has been overwhelming for her. Patient was made DNR/DNI on 10/09/2016. Patient has poor prognosis overall. Patient seen and case discussed with attending, Dr. Groves. - Date & Time Date: 10/10/16 Time: 10:43 <Rafael Groves - Last Filed: 10/10/16 14:21> CCU Objective - Vital Signs / Intake & Output Vital Signs (Last 4 hours): Vital Signs Temp Pulse BP Pulse Ox 10/10/16 13:00 99.9 F H 95 H 118/72 96 10/10/16 12:30 99.7 F H 93 H 120/72 96 10/10/16 12:00 99.7 F H 95 H 115/75 96 10/10/16 11:30 99.5 F 95 H 117/85 97 10/10/16 11:00 99.3 F 91 H 116/61 96 10/10/16 10:30 99.3 F 94 H 110/69 97 Intake and Output (Last 8hrs): Intake & Output 10/09/16 10/10/16 10/10/16 22:59 06:59 14:59 Intake Total 1919 Output Total 2200 Balance -281 Weight 243 lb 240 lb Intake: IV 811 Left Wrist 440 Right Forearm 40 Right Upper arm 320 Oral 120 Tube Feeding 400 Blood Product 588 Output: Drainage 1600 Paracentesis 1600 Urine 200 Urethral (Vyas) 200 Other 400 Other: Voiding Method Indwelling Catheter Indwelling Catheter Indwelling Catheter # Bowel Movements 2 - Medications Active Medications: Active Medications Generic Name Dose Route Start Last Admin Trade Name Freq PRN Reason Stop Dose Admin Acetaminophen 320 mg 10/03/16 07:45 10/04/16 13:52 Tylenol 160mg/5ml Oral Soln PO 320 mg Q4 PRN Administration Fever >100.4 F Albuterol/Ipratropium 3 ml 10/05/16 08:00 10/10/16 13:38 Duoneb 3 Mg/0.5 Mg (3 Ml) Ud IH 3 ml [id number] TONI Administration Folic Acid 1 mg 10/03/16 10:00 10/10/16 09:56 Folic Acid PO 1 mg DAILY TONI Administration Fentanyl Citrate 1,000 mcg in 100 mls @ 7.5 mls/hr 10/05/16 07:39 10/09/16 18 :40 Fentanyl Citrate/Sodium Chloride 1 Mg/100 Ml IV 25 mcg/hr .[id number] PRN 2.5 mls/hr TITRATE PER MD ORDER Titration Protocol 75 MCG/HR Micafungin Sodium 100 mg/ 100 mls @ 100 mls/hr 10/08/16 10:00 10/10/16 10:27 Sodium Chloride IV 10/17/16 10:01 100 mls/hr DAILY TONI Administration Protocol Sodium Chloride 1,000 mls @ 80 mls/hr 10/08/16 12:15 10/09/16 13:00 Sodium Chloride 0.45% IV Not Given .[id number] TONI Meropenem 250 mg/ Sodium 100 mls @ 100 mls/hr 10/08/16 13:30 10/10/16 00:40 Chloride IVPB 10/17/16 13:31 100 mls/hr Q12H TONI Administration Protocol Lorazepam 2 mg 10/02/16 21:28 10/07/16 05:33 Ativan IVP 2 mg Q2H PRN Administration Agitation Protocol Metoclopramide HCl 10 mg 10/09/16 16:56 10/09/16 17:13 Reglan IVP 10 mg Q6H PRN Administration Other Midodrine 5 mg 10/09/16 10:00 10/10/16 09:56 Proamatine PO 5 mg TID TONI Administration Pantoprazole Sodium 40 mg 10/03/16 10:00 10/10/16 09:55 Protonix Inj IVP 40 mg DAILY TONI Administration Rifaximin 550 mg 10/05/16 10:00 10/10/16 09:56 Xifaxan PO 550 mg BID TONI Administration Protocol Thiamine HCl 100 mg 10/03/16 10:00 10/10/16 09:56 Vitamin B1 Tab PO 100 mg DAILY TONI Administration Vancomycin HCl 125 mg 10/03/16 11:00 10/10/16 10:03 Vancocin 25 Mg/Ml (Oral Use) PO 125 mg Q6H TONI Administration Protocol Vitamin A 1 ea 10/03/16 10:00 10/10/16 09:58 Vitamin A & D Oint Ud Foilpak TOP 1 ea DAILY TONI Administration Vitamin B Complex/Vit C/Folic Acid 1 tab 10/03/16 08:00 10/10/16 08:56 Nephro-Mariann PO 1 tab 0800 TONI Administration - Patient Studies Lab Studies: Microbiology Studies 10/08/16 14:05 Blood Culture - Preliminary Blood NO GROWTH AFTER 24 HOURS 10/08/16 13:50 Blood Culture - Preliminary Blood NO GROWTH AFTER 24 HOURS 10/05/16 08:23 Gram Stain - Final Peritoneal Fluid Body Fluid Culture - Final NO GROWTH AFTER 4 DAYS 10/05/16 13:00 Blood Culture - Final Blood-Venous Tom Albicans Gram Stain - Final Lab Studies 10/10/16 10/10/16 10/10/16 Range/Units 11:48 11:48 06:25 WBC (4.5-11.0) 10^3/ul RBC (3.5-6.1) 10^6/uL Hgb (14.0-18.0) g/dL Hct (42.0-52.0) % MCV (80.0-105.0) fl MCH (25.0-35.0) pg MCHC (31.0-37.0) g/dl RDW (11.5-14.5) % Plt Count (120.0-450.0) 10^3/uL MPV (7.0-11.0) fl Gran % (50.0-68.0) % Lymph % (Auto) (22.0-35.0) % Noble % (Auto) (1.0-6.0) % Eos % (Auto) (1.5-5.0) % Baso % (Auto) (0.0-3.0) % Gran # (1.4-6.5) Lymph # (1.2-3.4) Noble # (0.1-0.6) Eos # (0.0-0.7) Baso # (0.0-2.0) K/mm3 PT 16.1 H (9.9-11.8) Seconds INR 1.49 H (0.93-1.08) APTT 30.3 (23.7-30.8) Seconds pCO2 (35-45) mm/Hg pO2 (80-100) mm/Hg HCO3 (21-28) mmol/L ABG pH (7.35-7.45) ABG Total CO2 (22-28) mmol.L ABG O2 Saturation (95-98) % ABG O2 Content (15-23) ML/dl ABG Base Excess (-2.0-3.0) mmol/L ABG Hemoglobin (11.7-17.4) g/dL ABG Carboxyhemoglobin (0.5-1.5) % POC ABG HHb (Measured) (0-5) % ABG Methemoglobin (0.0-3.0) % ABG O2 Capacity (16-24) mL/dl Hgb O2 Saturation (95.0-98.0) % FiO2 % Sodium 142 (132-148) mmol/L Potassium 3.9 (3.6-5.0) mmol/L Chloride 112 H (98-107) mmol/L Carbon Dioxide 19 L (21-33) mmol/L Anion Gap 15 (10-20) BUN 71 H (7-21) mg/dL Creatinine 3.9 H (0.5-1.4) mg/dL Est GFR ( Amer) 19 Est GFR (Non-Af Amer) 16 POC Glucose (mg/dL) (65-110) mg/dL Random Glucose 97 (70-110) mg/dL Calcium 7.5 L (8.4-10.5) mg/dL Phosphorus 4.4 (2.5-4.5) mg/dL Magnesium 2.0 (1.7-2.2) mg/dL Total Bilirubin 3.4 H (0.2-1.3) mg/dL AST 104 H D (17-59) U/L ALT 58 H (7-56) U/L Alkaline Phosphatase 94 (38-126) U/L Ammonia 59 H (9-33) umol/L Total Protein 5.1 L (5.8-8.3) g/dL Albumin 2.6 L (3.0-4.8) g/dL Globulin 2.4 gm/dL Albumin/Globulin Ratio 1.1 (1.1-1.8) 10/10/16 10/10/16 10/09/16 Range/Units 06:25 05:50 16:38 WBC 7.3 D (4.5-11.0) 10^3/ul RBC 3.44 L (3.5-6.1) 10^6/uL Hgb 11.1 L (14.0-18.0) g/dL Hct 34.2 L (42.0-52.0) % MCV 99.4 (80.0-105.0) fl MCH 32.3 (25.0-35.0) pg MCHC 32.5 (31.0-37.0) g/dl RDW 15.9 H (11.5-14.5) % Plt Count 23 L* (120.0-450.0) 10^3/uL MPV 10.6 (7.0-11.0) fl Gran % 69.9 H (50.0-68.0) % Lymph % (Auto) 25.4 (22.0-35.0) % Noble % (Auto) 4.4 (1.0-6.0) % Eos % (Auto) 0.0 L (1.5-5.0) % Baso % (Auto) 0.3 (0.0-3.0) % Gran # 5.11 (1.4-6.5) Lymph # 1.9 (1.2-3.4) Noble # 0.3 (0.1-0.6) Eos # 0.0 (0.0-0.7) Baso # 0.02 (0.0-2.0) K/mm3 PT (9.9-11.8) Seconds INR (0.93-1.08) APTT (23.7-30.8) Seconds pCO2 47 H (35-45) mm/Hg pO2 73.0 L (80-100) mm/Hg HCO3 21.1 (21-28) mmol/L ABG pH 7.26 L (7.35-7.45) ABG Total CO2 22.5 (22-28) mmol.L ABG O2 Saturation 97.0 (95-98) % ABG O2 Content 14.5 L (15-23) ML/dl ABG Base Excess -5.9 L (-2.0-3.0) mmol/L ABG Hemoglobin 11.0 L (11.7-17.4) g/dL ABG Carboxyhemoglobin 2.6 H (0.5-1.5) % POC ABG HHb (Measured) 2.9 (0-5) % ABG Methemoglobin 1.0 (0.0-3.0) % ABG O2 Capacity 14.9 L (16-24) mL/dl Hgb O2 Saturation 93.6 L (95.0-98.0) % FiO2 40.0 % Sodium (132-148) mmol/L Potassium (3.6-5.0) mmol/L Chloride (98-107) mmol/L Carbon Dioxide (21-33) mmol/L Anion Gap (10-20) BUN (7-21) mg/dL Creatinine (0.5-1.4) mg/dL Est GFR ( Amer) Est GFR (Non-Af Amer) POC Glucose (mg/dL) 105 (65-110) mg/dL Random Glucose (70-110) mg/dL Calcium (8.4-10.5) mg/dL Phosphorus (2.5-4.5) mg/dL Magnesium (1.7-2.2) mg/dL Total Bilirubin (0.2-1.3) mg/dL AST (17-59) U/L ALT (7-56) U/L Alkaline Phosphatase (38-126) U/L Ammonia (9-33) umol/L Total Protein (5.8-8.3) g/dL Albumin (3.0-4.8) g/dL Globulin gm/dL Albumin/Globulin Ratio (1.1-1.8) Laboratory Results - last 24 hr 10/09/16 10/10/16 10/10/16 16:38 05:50 06:25 WBC 7.3 D RBC 3.44 L Hgb 11.1 L Hct 34.2 L MCV 99.4 MCH 32.3 MCHC 32.5 RDW 15.9 H Plt Count 23 L* MPV 10.6 Gran % 69.9 H Lymph % (Auto) 25.4 Noble % (Auto) 4.4 Eos % (Auto) 0.0 L Baso % (Auto) 0.3 Gran # 5.11 Lymph # 1.9 Noble # 0.3 Eos # 0.0 Baso # 0.02 PT INR APTT pCO2 47 H pO2 73.0 L HCO3 21.1 ABG pH 7.26 L ABG Total CO2 22.5 ABG O2 Saturation 97.0 ABG O2 Content 14.5 L ABG Base Excess -5.9 L ABG Hemoglobin 11.0 L ABG Carboxyhemoglobin 2.6 H POC ABG HHb (Measured) 2.9 ABG Methemoglobin 1.0 ABG O2 Capacity 14.9 L Hgb O2 Saturation 93.6 L FiO2 40.0 Sodium Potassium Chloride Carbon Dioxide Anion Gap BUN Creatinine Est GFR ( Amer) Est GFR (Non-Af Amer) POC Glucose (mg/dL) 105 Random Glucose Calcium Phosphorus Magnesium Total Bilirubin AST ALT Alkaline Phosphatase Ammonia Total Protein Albumin Globulin Albumin/Globulin Ratio 10/10/16 10/10/16 10/10/16 06:25 11:48 11:48 WBC RBC Hgb Hct MCV MCH MCHC RDW Plt Count MPV Gran % Lymph % (Auto) Noble % (Auto) Eos % (Auto) Baso % (Auto) Gran # Lymph # Noble # Eos # Baso # PT 16.1 H INR 1.49 H APTT 30.3 pCO2 pO2 HCO3 ABG pH ABG Total CO2 ABG O2 Saturation ABG O2 Content ABG Base Excess ABG Hemoglobin ABG Carboxyhemoglobin POC ABG HHb (Measured) ABG Methemoglobin ABG O2 Capacity Hgb O2 Saturation FiO2 Sodium 142 Potassium 3.9 Chloride 112 H Carbon Dioxide 19 L Anion Gap 15 BUN 71 H Creatinine 3.9 H Est GFR ( Amer) 19 Est GFR (Non-Af Amer) 16 POC Glucose (mg/dL) Random Glucose 97 Calcium 7.5 L Phosphorus 4.4 Magnesium 2.0 Total Bilirubin 3.4 H AST 104 H D ALT 58 H Alkaline Phosphatase 94 Ammonia 59 H Total Protein 5.1 L Albumin 2.6 L Globulin 2.4 Albumin/Globulin Ratio 1.1 Assessment/Plan - Assessment and Plan (Free Text) Plan: Patient seen and examined on rounds with Dr Cerna, agree with note, A/P. Patient remains intubated, sedation shut off for sedation vacation, patient minimally responsive. Blood culture, urine culture, and sputum culture postive for yeast, on Mycamine, ID following. Patient had all lines removed, Arterial Line, PICC line, and Vyas changed. Patient with minimally increased UOP today, renal following. Patient has been off pressors, HD stable. Patient's daughter Nasrin, deferred all decision making to her mother, the patients , in conjunction with daughter, who has been in agreement with her mothers decisions. Decision on behalf of the patient have been made collectively by the daughter and . Recommend: Resp: - keep intubated, all sedation shut off, patient not ready for extubation, unable to protect airway, does not follow commands - CXR without focal infiltrate Infectious: - +Cdiff - +yeast in blood, fungemia - ID following - Merrem,Vanco PO, Mycamine, renally dosed - patient had all lines art line, PICC line removed yesterday, Vyas changed - ECHO - Ophtho consult CV: - off pressors, HD stable - midodrine 5mg TID - ECHO Heme: - HH Stable - cont with PPI - keep HH>7 Alimentary/GI: - hx of EtOH abuse, Cirrhosis, Hep C - MELD 22 - Rifaxamin - PPI - Reglan IV Renal: - UOP with minimal improvement, renal following - no acute indications for HD at this time - follow up renal Neuro: - intial CT head negative - will attempt sedation vacation, assess neurological status then Line: ETT NGT Vyas DVT ppx GI ppx Full Code Remains in critical condition, poor prognosis I had discussion/family meeting today with family, including the patients , Sandra Kruger, Daughter Nasrin Kruger, and brother in [facility], and Dr Gauthier. I informed them of the poor prognosis of the patients condition. They understand the patients condition, and that the prognosis is very poor. The family reported that they need more time to discuss which route they were leaning towards, palliative approach or aggressive approach which includes Ltach and likely HD at some point. For now we will continue with aggressive treatment as we have done up to this point.
--- NOTE | 2016-10-10 11:19 | CP.PCM.PN ---
Subjective - Date & Time of Evaluation Date of Evaluation: 10/10/16 Time of Evaluation: 08:50 - Subjective Subjective: Continues to be on the ventilator, in some respiratory distress, no fevers overnight. Objective - Vital Signs/Intake and Output Vital Signs (last 24 hours): Temp Pulse Resp BP Pulse Ox 98.4 F 95 H 33 H 120/76 97 10/10/16 06:30 10/10/16 06:30 10/10/16 07:37 10/10/16 06:30 10/10/16 07:37 Intake and Output: 10/10/16 10/10/16 06:59 18:59 Intake Total 954 Output Total 1100 Balance -146 - Medications Medications: Current Medications Acetaminophen (Tylenol 160mg/5ml Oral Soln) 320 mg PO Q4 PRN PRN Reason: Fever >100.4 F Last Admin: 10/04/16 13:52 Dose: 320 mg Albuterol/Ipratropium (Duoneb 3 Mg/0.5 Mg (3 Ml) Ud) 3 ml IH [id number] [facility] Last Admin: 10/10/16 07:32 Dose: 3 ml Folic Acid (Folic Acid) 1 mg PO DAILY [facility] Last Admin: 10/09/16 09:02 Dose: 1 mg Fentanyl Citrate (Fentanyl Citrate/Sodium Chloride 1 Mg/100 Ml) 1,000 mcg in 100 mls @ 7.5 mls/hr IV .[id number] PRN; Protocol; 75 MCG/HR PRN Reason: TITRATE PER MD ORDER Last Titration: 10/09/16 18:40 Dose: 25 mcg/hr, 2.5 mls/hr Micafungin Sodium 100 mg/ (Sodium Chloride) 100 mls @ 100 mls/hr IV DAILY [facility] PRN Reason: Protocol Stop: 10/17/16 10:01 Last Admin: 10/09/16 09:05 Dose: 100 mls/hr Sodium Chloride (Sodium Chloride 0.45%) 1,000 mls @ 80 mls/hr IV .[id number] [facility] Last Admin: 10/09/16 13:00 Dose: Not Given Meropenem 250 mg/ Sodium (Chloride) 100 mls @ 100 mls/hr IVPB Q12H [facility] PRN Reason: Protocol Stop: 10/17/16 13:31 Last Admin: 10/10/16 00:40 Dose: 100 mls/hr Lorazepam (Ativan) 2 mg IVP Q2H PRN; Protocol PRN Reason: Agitation Last Admin: 10/07/16 05:33 Dose: 2 mg Metoclopramide HCl (Reglan) 10 mg IVP Q6H PRN PRN Reason: Other Last Admin: 10/09/16 17:13 Dose: 10 mg Midodrine (Proamatine) 5 mg PO TID [facility] Last Admin: 10/09/16 19:01 Dose: 5 mg Pantoprazole Sodium (Protonix Inj) 40 mg IVP DAILY [facility] Last Admin: 10/09/16 09:01 Dose: 40 mg Rifaximin (Xifaxan) 550 mg PO BID [facility] PRN Reason: Protocol Last Admin: 10/09/16 17:13 Dose: 550 mg Thiamine HCl (Vitamin B1 Tab) 100 mg PO DAILY [facility] Last Admin: 10/09/16 09:02 Dose: 100 mg Vancomycin HCl (Vancocin 25 Mg/Ml (Oral Use)) 125 mg PO Q6H [facility] PRN Reason: Protocol Last Admin: 10/10/16 05:12 Dose: 125 mg Vitamin A (Vitamin A & D Oint Ud Foilpak) 1 ea TOP DAILY [facility] Last Admin: 10/09/16 09:02 Dose: 1 ea Vitamin B Complex/Vit C/Folic Acid (Nephro-Mariann) 1 tab PO 0800 [facility] Last Admin: 10/09/16 08:45 Dose: 1 tab - Labs Labs: 10/10/16 06:25 10/10/16 06:25 PT 16.1 Seconds (9.9-11.8) H 10/08/16 06:00 INR 1.49 (0.93-1.08) H 10/08/16 06:00 APTT 30.3 Seconds (23.7-30.8) 10/08/16 06:00 - Constitutional Appears: Other (Intubated, ins some respiratory distress) - Head Exam Head Exam: NORMAL INSPECTION - ENT Exam Additional comments: ET tube in place - Respiratory Exam Respiratory Exam: Decreased Breath Sounds - Cardiovascular Exam Cardiovascular Exam: +S1, +S2 - GI/Abdominal Exam GI & Abdominal Exam: Distended, Soft. 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 and healthcare-associated pneumonia on top of colitis or spontaneous bacterial peritonitis in this patient with liver cirrhosis probably from alcohol abuse; S/ P paracentesis; initially presented with delerium tremens chronic alcohol abuse with history of liver cirrhosis and esophageal varices significant smoking history Plan continue intermittent Vancomycin IV and Merrem (day 6), PO Vancomycin (day 8) and Mycamine (repeat blood cx on 10/08/2016 are negative - we are cautious not to use Fluconazole in this patient with worsening hepatic failure, although Mycamine has also been implicated with some liver toxicity as well but less reports compared to Fluconazole will continue to monitor clinically patient continues to be in critical condition and overall prognosis is poor - awaiting family decision regarding further therapy - ICU team to discuss with family
[2016-10-10 12:02] LABS: INR 1.49 (0.93-1.08); PARTIAL THROMBOPLASTIN TIME 30.3 Seconds (23.7-30.8)
[2016-10-10] MEDS ORDERED: Petrolatum Oint Foilpak (5 gm) TOP PRN (14:04)
--- NOTE | 2016-10-10 14:23 | CON ---
DATE: I was called in to see Mr. Kruger in consultation. PHYSICAL EXAMINATION: Visual acuity could not be obtained due to the fact that the patient was in a comatose state. Pupils were normal. Conjunctiva was edematous on both eyes. Corneal exam was normal. Lens exam was normal. Fundus exam was normal. Extraocular movement could not be ascertained. ASSESSMENT: Mr. Kruger has an essentially normal eye exam with the exception of some conjunctival swelling, which could be attributed to the patient being in the ICU and receiving steroids and having chronic liver disease. Emiliano Sweet MD
[2016-10-10] MEDS: Mineral Oil/Petrolatum Opht Oint(3.5 gm) OU SCH (18:00)
--- NOTE | 2016-10-10 18:35 | CARD ---
APPROVED REPORT EXAM: Two-dimensional and M-mode echocardiogram with Doppler and color Doppler. INDICATION Infection:Rule out subacute bacterial endocarditis 2D DIMENSIONS IVSd1.1 (0.7-1.1cm)LVDd4.5 (3.9-5.9cm) PWd1.3 (0.7-1.1cm)LVEF (%)55.0 (>50%) Aortic Valve AoV Peak Wqdsjqwo207.0cm/Jose Peak GR.11mmHg Mitral Valve E/A ratio0.0 TDI E/Lateral E'0.0E/Medial E'0.0 Tricuspid Valve TR Peak [id number]/sRAP [id number] Peak Gr.32mmHg [id number] LEFT VENTRICLE The left ventricle is normal size. There is normal left ventricular wall thickness. The left ventricular function is normal. The left ventricular ejection fraction is within the normal range. There is normal LV segmental wall motion. The left ventricular diastolic function is normal. RIGHT VENTRICLE The right ventricle is normal size. There is normal right ventricular wall thickness. The right ventricular systolic function is normal. ATRIA The left atrium size is normal. The right atrium size is normal. AORTIC VALVE The aortic valve is not well visualized. No aortic regurgitation is present. There is no aortic valvular stenosis. MITRAL VALVE The mitral valve is not well visualized. Mitral regurgitation is mild. There is no mitral valve stenosis. TRICUSPID VALVE The tricusped valve is not well visualized. There is mild tricuspid regurgitation. There is mild pulmonary hypertension. <Conclusion> Mitral regurgitation is mild. There is mild tricuspid regurgitation. There is mild pulmonary hypertension. The valvular structures are not well visualized because of poor Echo window. Consider MARILUZ if Clinically indicated
--- NOTE | 2016-10-10 20:00 | CP.PCM.PN ---
Subjective - Date & Time of Evaluation Date of Evaluation: 10/10/16 Time of Evaluation: 11:00 - Subjective Subjective: Patient intubated, not responding to tactile stimuli; Objective - Vital Signs/Intake and Output Vital Signs (last 24 hours): Temp Pulse Resp BP Pulse Ox 99.5 F 96 H 33 H 120/76 99 10/10/16 18:30 10/10/16 18:30 10/10/16 07:37 10/10/16 18:30 10/10/16 18:30 - Medications Medications: Current Medications Acetaminophen (Tylenol 160mg/5ml Oral Soln) 320 mg PO Q4 PRN PRN Reason: Fever >100.4 F Last Admin: 10/04/16 13:52 Dose: 320 mg Albuterol/Ipratropium (Duoneb 3 Mg/0.5 Mg (3 Ml) Ud) 3 ml IH [id number] [facility] Last Admin: 10/10/16 13:38 Dose: 3 ml Artificial Tears (Artificial Tears Opht Oint) 1 gm OU Q6 [facility] Last Admin: 10/10/16 18:00 Dose: 1 gm Folic Acid (Folic Acid) 1 mg PO DAILY [facility] Last Admin: 10/10/16 09:56 Dose: 1 mg Fentanyl Citrate (Fentanyl Citrate/Sodium Chloride 1 Mg/100 Ml) 1,000 mcg in 100 mls @ 7.5 mls/hr IV .[id number] PRN; Protocol; 75 MCG/HR PRN Reason: TITRATE PER MD ORDER Last Titration: 10/09/16 18:40 Dose: 25 mcg/hr, 2.5 mls/hr Micafungin Sodium 100 mg/ (Sodium Chloride) 100 mls @ 100 mls/hr IV DAILY [facility] PRN Reason: Protocol Stop: 10/17/16 10:01 Last Admin: 10/10/16 10:27 Dose: 100 mls/hr Sodium Chloride (Sodium Chloride 0.45%) 1,000 mls @ 80 mls/hr IV .[id number] [facility] Last Admin: 10/09/16 13:00 Dose: Not Given Meropenem 250 mg/ Sodium (Chloride) 100 mls @ 100 mls/hr IVPB Q12H [facility] PRN Reason: Protocol Stop: 10/17/16 13:31 Last Admin: 10/10/16 14:06 Dose: 100 mls/hr Lorazepam (Ativan) 2 mg IVP Q2H PRN; Protocol PRN Reason: Agitation Last Admin: 10/07/16 05:33 Dose: 2 mg Metoclopramide HCl (Reglan) 10 mg IVP Q6H PRN PRN Reason: Other Last Admin: 10/09/16 17:13 Dose: 10 mg Midodrine (Proamatine) 5 mg PO TID [facility] Last Admin: 10/10/16 18:30 Dose: 5 mg Pantoprazole Sodium (Protonix Inj) 40 mg IVP DAILY [facility] Last Admin: 10/10/16 09:55 Dose: 40 mg Rifaximin (Xifaxan) 550 mg PO BID [facility] PRN Reason: Protocol Last Admin: 10/10/16 18:25 Dose: 550 mg Thiamine HCl (Vitamin B1 Tab) 100 mg PO DAILY [facility] Last Admin: 10/10/16 09:56 Dose: 100 mg Vancomycin HCl (Vancocin 25 Mg/Ml (Oral Use)) 125 mg PO Q6H [facility] PRN Reason: Protocol Last Admin: 10/10/16 17:00 Dose: 125 mg Vitamin A (Vitamin A & D Oint Ud Foilpak) 1 ea TOP DAILY [facility] Last Admin: 10/10/16 09:58 Dose: 1 ea Vitamin B Complex/Vit C/Folic Acid (Nephro-Mariann) 1 tab PO 0800 [facility] Last Admin: 10/10/16 08:56 Dose: 1 tab - Labs Labs: 10/10/16 06:25 10/10/16 06:25 PT 16.1 Seconds (9.9-11.8) H 10/10/16 11:48 INR 1.49 (0.93-1.08) H 10/10/16 11:48 APTT 30.3 Seconds (23.7-30.8) 10/10/16 11:48 - Constitutional Appears: Non-toxic, No Acute Distress - Head Exam Head Exam: NORMOCEPHALIC - Eye Exam Eye Exam: Scleral icterus - ENT Exam ENT Exam: Mucous Membranes Moist - Respiratory Exam Respiratory Exam: Rales Additional comments: tachypneic - Cardiovascular Exam Cardiovascular Exam: REGULAR RHYTHM, +S1, +S2 - GI/Abdominal Exam GI & Abdominal Exam: Distended, Soft - Extremities Exam Additional comments: anasarca - Neurological Exam Additional comments: not responding to tactile stimuli; - Skin Skin Exam: Normal Color, Warm. 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; received pulse dose steroids 3 days ago, subsequently held due to fungemia; urine output today seems markedly improved (although still likely oliguric); question about restarting pulse steroids; per ID, since repeat blood culture not showing tom (which grew originially), should be safe to restart; No urgent indication for HD although serum creatinine continues to increase; increasing metabolic acidosis but stable FIO2 requirement; in light of family not opting for aggressive measures, will not initiate HD at this time; -will consider giving solumedrol 1g daily x 2 starting from tomorrow; Status: Acute (2) Acute hypercapnic respiratory failure Assessment & Plan: Still with mild hypercapnea despite being tachypneic (and breathing over vent); doesn't appear he will tolerate extubation; factors into decision regarding overall care with aggressive measures including HD if he continues to remain intubated with no sign of recovering; Status: Acute (3) Hypokalemia Assessment & Plan: Corrected; continue to monitor; loss of peritoneal fluid was likely contributory ; Status: Acute (4) Hypocalcemia Status: Resolved (5) SIRS (systemic inflammatory response syndrome) Assessment & Plan: On micafungin for tom in blood, sputum and urine, no renal dose adjustment needed; on meropenem 250 q12h, correctly dosed for CrCl < 10; Status: Acute
[2016-10-11] MEDS: Albuterol-Ipratrop 3 mg / 0.5 (3 ml) UD IH SCH ×4 (01:30→19:45)
[2016-10-11] MEDS: Vancomycin 25 MG/ML PO SCH ×5 (02:52→23:43)
[2016-10-11 04:07] LABS: CREATININE, RANDOM URINE 285 mg/dL (20-370)
[2016-10-11] MEDS: Mineral Oil/Petrolatum Opht Oint(3.5 gm) OU SCH ×3 (05:26→16:09)
[2016-10-11 06:33] LABS: BASO # 0.01 K/mm3 (0.0-2.0); BASO % 0.1 % (0.0-3.0); EOS % 0.1 % (1.5-5.0); GRAN # 5.55 (1.4-6.5); GRAN % 68.9 % (50.0-68.0); HEMATOCRIT 32.5 % (42.0-52.0); LYMPH # 2.1 (1.2-3.4); LYMPH % 26.2 % (22.0-35.0); MEAN CELL VOLUME 99.1 fl (80.0-105.0); MEAN CORPUSCULAR HGB CONC 32.3 g/dl (31.0-37.0); MONO # 0.4 (0.1-0.6); MONO % 4.7 % (1.0-6.0); RED CELL DISTRIBUTION WIDTH 15.7 % (11.5-14.5); WHITE BLOOD COUNT 8.1 10^3/ul (4.5-11.0)
[2016-10-11 06:58] LABS: CALCIUM 7.7 mg/dL (8.4-10.5); MAGNESIUM 1.9 mg/dL (1.7-2.2); PHOSPHOROUS 4.5 mg/dL (2.5-4.5); POTASSIUM 3.6 mmol/L (3.6-5.0); TOTAL PROTEIN 4.8 g/dL (5.8-8.3)
[2016-10-11] MEDS ORDERED: Amikacin 500 MG in Dextrose 5% In Water 100 ML IVPB ONE (07:30)
[2016-10-11] MEDS: Vitamins A & D Oint UD Foilpak TOP SCH (09:12)
[2016-10-11] MEDS: Multivitamin Vitamin B Complex (Nephro-Vite) Tab PO SCH (09:12)
--- NOTE | 2016-10-11 09:46 | RAD ---
HISTORY: mech vent COMPARISON: 10/10/2016 FINDINGS: LUNGS: No active pulmonary disease. PLEURA: No significant pleural effusion identified, no pneumothorax apparent. CARDIOVASCULAR: Normal. OSSEOUS STRUCTURES: No significant abnormalities. VISUALIZED UPPER ABDOMEN: Normal. OTHER FINDINGS: The endotracheal tube and nasogastric tubes are in satisfactory position. IMPRESSION: No active disease.
[2016-10-11] MEDS: Acetaminophen 160 mg/5 ml UD PO PRN ×2 (09:48→23:59)
--- NOTE | 2016-10-11 10:03 | CP.PCM.PN ---
Subjective - Date & Time of Evaluation Date of Evaluation: 10/11/16 Time of Evaluation: 09:10 - Subjective Subjective: Patient continues to be obtunded and on the ventilator. Developed fevers this morning and is tachypneic and in some distress. Continues to have loose stools but is on lactulose. Objective - Vital Signs/Intake and Output Vital Signs (last 24 hours): Temp Pulse Resp BP Pulse Ox 100.9 F H 103 H 33 H 121/63 80 L 10/11/16 04:59 10/11/16 04:59 10/10/16 07:37 10/11/16 05:00 10/10/16 23:00 Intake and Output: 10/11/16 10/11/16 06:59 18:59 Intake Total 1220 760 Output Total 900 825 Balance 320 -65 - Medications Medications: Current Medications Acetaminophen (Tylenol 160mg/5ml Oral Soln) 320 mg PO Q4 PRN PRN Reason: Fever >100.4 F Last Admin: 10/11/16 09:48 Dose: 320 mg Albuterol/Ipratropium (Duoneb 3 Mg/0.5 Mg (3 Ml) Ud) 3 ml IH [id number] [facility] Last Admin: 10/11/16 07:28 Dose: 3 ml Artificial Tears (Artificial Tears Opht Oint) 1 gm OU Q6 [facility] Last Admin: 10/11/16 05:26 Dose: 1 gm Folic Acid (Folic Acid) 1 mg PO DAILY [facility] Last Admin: 10/11/16 09:12 Dose: 1 mg Fentanyl Citrate (Fentanyl Citrate/Sodium Chloride 1 Mg/100 Ml) 1,000 mcg in 100 mls @ 7.5 mls/hr IV .[id number] PRN; Protocol; 75 MCG/HR PRN Reason: TITRATE PER MD ORDER Last Titration: 10/09/16 18:40 Dose: 25 mcg/hr, 2.5 mls/hr Micafungin Sodium 100 mg/ (Sodium Chloride) 100 mls @ 100 mls/hr IV DAILY [facility] PRN Reason: Protocol Stop: 10/17/16 10:01 Last Admin: 10/10/16 10:27 Dose: 100 mls/hr Sodium Chloride (Sodium Chloride 0.45%) 1,000 mls @ 80 mls/hr IV .[id number] [facility] Last Admin: 10/09/16 13:00 Dose: Not Given Meropenem 250 mg/ Sodium (Chloride) 100 mls @ 100 mls/hr IVPB Q12H [facility] PRN Reason: Protocol Stop: 10/17/16 13:31 Last Admin: 10/11/16 03:01 Dose: 100 mls/hr Lactulose (Enulose) 20 gm PO TID [facility] Last Admin: 10/11/16 09:11 Dose: 20 gm Lorazepam (Ativan) 2 mg IVP Q2H PRN; Protocol PRN Reason: Agitation Last Admin: 10/07/16 05:33 Dose: 2 mg Metoclopramide HCl (Reglan) 10 mg IVP Q6H PRN PRN Reason: Other Last Admin: 10/09/16 17:13 Dose: 10 mg Midodrine (Proamatine) 5 mg PO TID [facility] Last Admin: 10/11/16 09:12 Dose: 5 mg Pantoprazole Sodium (Protonix Inj) 40 mg IVP DAILY [facility] Last Admin: 10/11/16 09:12 Dose: 40 mg Rifaximin (Xifaxan) 550 mg PO BID [facility] PRN Reason: Protocol Last Admin: 10/11/16 09:12 Dose: 550 mg Thiamine HCl (Vitamin B1 Tab) 100 mg PO DAILY [facility] Last Admin: 10/11/16 09:12 Dose: 100 mg Vancomycin HCl (Vancocin 25 Mg/Ml (Oral Use)) 125 mg PO Q6H [facility] PRN Reason: Protocol Last Admin: 10/11/16 05:26 Dose: 125 mg Vitamin A (Vitamin A & D Oint Ud Foilpak) 1 ea TOP DAILY [facility] Last Admin: 10/11/16 09:12 Dose: 1 ea Vitamin B Complex/Vit C/Folic Acid (Nephro-Mariann) 1 tab PO 0800 [facility] Last Admin: 10/11/16 09:12 Dose: 1 tab - Labs Labs: 10/11/16 06:01 10/11/16 06:01 PT 16.1 Seconds (9.9-11.8) H 10/10/16 11:48 INR 1.49 (0.93-1.08) H 10/10/16 11:48 APTT 30.3 Seconds (23.7-30.8) 10/10/16 11:48 - Constitutional Appears: Other (On the ventilator, tachypneic) - ENT Exam Additional comments: ET tube in place - Respiratory Exam Respiratory Exam: Decreased Breath Sounds, Rales (scattered) - Cardiovascular Exam Cardiovascular Exam: Tachycardia, +S1, +S2 - GI/Abdominal Exam GI & Abdominal Exam: Distended, Soft. absent: Firm, Tenderness Assessment and Plan - Assessment and Plan (Free Text) Plan: Assessment severe sepsis with ventilator-dependent respiratory failure, respiratory acidosis and worsening acute renal failure probably due to C. albicans fungemia and healthcare-associated pneumonia on top of colitis or spontaneous bacterial peritonitis in this patient with liver cirrhosis probably from alcohol abuse; S/ P paracentesis; initially presented with delerium tremens; patient has new onset fevers, need to rule out new onset sepsis chronic alcohol abuse with history of liver cirrhosis and esophageal varices significant smoking history Plan continue intermittent Vancomycin IV and Merrem (day 7), PO Vancomycin (day 9) and Mycamine (repeat blood cx on 10/08/2016 are negative - we are cautious not to use Fluconazole in this patient with worsening hepatic failure, although Mycamine has also been implicated with some liver toxicity as well but less reports compared to Fluconazole) - will repeat blood, urine, sputum cx, give a dose of IV amikacin will continue to monitor clinically patient continues to be in critical condition and overall prognosis is poor - patient has been made DNR and ICU team will re-discuss with family regarding prognosis
[2016-10-11] MEDS: Micafungin 100 MG in Sodium Chloride 0.9% 100 ML IV SCH (10:29)
--- NOTE | 2016-10-11 10:50 | CP.CCUPN ---
<KENDY CERNA - Last Filed: 10/11/16 10:43> CCU Subjective - Physician Review Subjective (Free Text): 10/11/16 10:44 Patient was seen and assessed at bedside. Patient intubated and no longer on sedation, however patient unresponsive to verbal and tactile stimuli with minimal response to painful stimuli. Per chart review, patient was febrile to 101.1 overnight. No other complaints or acute events were reported. ROS continues to be unobtainable due to patients clinical condition. CCU Objective - Vital Signs / Intake & Output Intake and Output (Last 8hrs): Intake & Output 10/10/16 10/11/16 10/11/16 22:59 06:59 14:59 Intake Total 1220 760 Output Total 900 825 Balance 320 -65 Intake: IV 220 160 Right Forearm 220 Right Upper arm 160 Tube Feeding 600 300 Other 400 300 Output: Urine 400 425 Urethral (Vyas) 400 425 Stool 500 400 Other: Voiding Method Indwelling Catheter - Physical Exam Physical Exam Limitations: Positive for: Altered Mental Status (unresponsive to verbal and tactile stimuli with minimal response to painful stimuli) Head: Positive for: Atraumatic, Normocephalic Pupils: Positive for: PERRL, Sluggish Conjunctiva: Positive for: Injected (red conjunctival injection with no hemorrhage) Ears: Positive for: Normal Mouth: Positive for: Moist Mucous Membranes, Other (ET and OG tube in position in oral cavity) Nose (External): Positive for: Atraumatic Neck: Positive for: Trachea Midline. Negative for: Lymphadenopathy Respiratory/Chest: Positive for: Clear to Auscultation, Good Air Exchange, Tachypneic, Other (Mechanical ventilation). Negative for: Respiratory Distress , Accessory Muscle Use, Wheezes, Decreased Breath Sounds, Retracting, Rhonchi Cardiovascular: Positive for: Regular Rate and Rhythm, Normal S1, S2. Negative for: Murmurs Abdomen: Positive for: Normal Bowel Sounds, Other (Paracentesis site with sutures, no signs of infection, dressing clean, dry and intact). Negative for: Tenderness, Distention, Peritoneal Signs Genitourinary Male: Positive for: Testicle Swelling, Other (Vyas in place) Upper Extremity: Positive for: Edema (1+ pitting edema B/L UE). Negative for: Normal Inspection (Multiple areas of ecchymoses), Cyanosis Lower Extremity: Positive for: Edema (2+ Pitting edema B/L up to thighs). Negative for: Normal Inspection Neurological: Positive for: Other (Gag intact, corneal reflex negative). Negative for: GCS=15 (intubated), Speech Normal Skin: Positive for: Warm, Dry, Other (Areas of serous weeping from multiple areas of skin). Negative for: Rashes, Normal Color (multiple ecchymoses over UE B/L) Psychiatric: Negative for: Alert (sedated, arousable to tactile stimuli), Oriented x 3, Normal Insight, Normal Concentration - Medications Active Medications: Active Medications Generic Name Dose Route Start Last Admin Trade Name Freq PRN Reason Stop Dose Admin Acetaminophen 320 mg 10/03/16 07:45 10/11/16 09:48 Tylenol 160mg/5ml Oral Soln PO 320 mg Q4 PRN Administration Fever >100.4 F Albuterol/Ipratropium 3 ml 10/05/16 08:00 10/11/16 07:28 Duoneb 3 Mg/0.5 Mg (3 Ml) Ud IH 3 ml [id number] TONI Administration Artificial Tears 1 gm 10/10/16 18:00 10/11/16 05:26 Artificial Tears Opht Oint OU 1 gm Q6 TONI Administration Folic Acid 1 mg 10/03/16 10:00 10/11/16 09:12 Folic Acid PO 1 mg DAILY TONI Administration Fentanyl Citrate 1,000 mcg in 100 mls @ 7.5 mls/hr 10/05/16 07:39 10/09/16 18 :40 Fentanyl Citrate/Sodium Chloride 1 Mg/100 Ml IV 25 mcg/hr .[id number] PRN 2.5 mls/hr TITRATE PER MD ORDER Titration Protocol 75 MCG/HR Micafungin Sodium 100 mg/ 100 mls @ 100 mls/hr 10/08/16 10:00 10/11/16 10:29 Sodium Chloride IV 10/17/16 10:01 100 mls/hr DAILY TONI Administration Protocol Sodium Chloride 1,000 mls @ 80 mls/hr 10/08/16 12:15 10/09/16 13:00 Sodium Chloride 0.45% IV Not Given .[id number] TONI Meropenem 250 mg/ Sodium 100 mls @ 100 mls/hr 10/08/16 13:30 10/11/16 03:01 Chloride IVPB 10/17/16 13:31 100 mls/hr Q12H TONI Administration Protocol Lactulose 20 gm 10/11/16 10:00 10/11/16 09:11 Enulose PO 20 gm TID TONI Administration Lorazepam 2 mg 10/02/16 21:28 10/07/16 05:33 Ativan IVP 2 mg Q2H PRN Administration Agitation Protocol Metoclopramide HCl 10 mg 10/09/16 16:56 10/09/16 17:13 Reglan IVP 10 mg Q6H PRN Administration Other Midodrine 5 mg 10/09/16 10:00 10/11/16 09:12 Proamatine PO 5 mg TID TONI Administration Pantoprazole Sodium 40 mg 10/03/16 10:00 10/11/16 09:12 Protonix Inj IVP 40 mg DAILY TONI Administration Rifaximin 550 mg 10/05/16 10:00 10/11/16 09:12 Xifaxan PO 550 mg BID TONI Administration Protocol Thiamine HCl 100 mg 10/03/16 10:00 10/11/16 09:12 Vitamin B1 Tab PO 100 mg DAILY TONI Administration Vancomycin HCl 125 mg 10/03/16 11:00 10/11/16 05:26 Vancocin 25 Mg/Ml (Oral Use) PO 125 mg Q6H TONI Administration Protocol Vitamin A 1 ea 10/03/16 10:00 10/11/16 09:12 Vitamin A & D Oint Ud Foilpak TOP 1 ea DAILY TONI Administration Vitamin B Complex/Vit C/Folic Acid 1 tab 10/03/16 08:00 10/11/16 09:12 Nephro-Mariann PO 1 tab 0800 TONI Administration - Patient Studies Lab Studies: Microbiology Studies 10/08/16 14:05 Blood Culture - Preliminary Blood NO GROWTH AFTER 48 HOURS 10/08/16 13:50 Blood Culture - Preliminary Blood NO GROWTH AFTER 48 HOURS Lab Studies 10/11/16 10/11/16 10/10/16 Range/Units 06:01 06:01 11:48 WBC 8.1 (4.5-11.0) 10^3/ul RBC 3.28 L (3.5-6.1) 10^6/uL Hgb 10.5 L (14.0-18.0) g/dL Hct 32.5 L (42.0-52.0) % MCV 99.1 (80.0-105.0) fl MCH 32.0 (25.0-35.0) pg MCHC 32.3 (31.0-37.0) g/dl RDW 15.7 H (11.5-14.5) % Plt Count 58 L (120.0-450.0) 10^3/uL MPV 10.0 (7.0-11.0) fl Gran % 68.9 H (50.0-68.0) % Lymph % (Auto) 26.2 (22.0-35.0) % [place] % (Auto) 4.7 (1.0-6.0) % Eos % (Auto) 0.1 L (1.5-5.0) % Baso % (Auto) 0.1 (0.0-3.0) % Gran # 5.55 (1.4-6.5) Lymph # 2.1 (1.2-3.4) [place] # 0.4 (0.1-0.6) Eos # 0.0 (0.0-0.7) Baso # 0.01 (0.0-2.0) K/mm3 PT 16.1 H (9.9-11.8) Seconds INR 1.49 H (0.93-1.08) APTT 30.3 (23.7-30.8) Seconds Sodium 142 (132-148) mmol/L Potassium 3.6 (3.6-5.0) mmol/L Chloride 113 H (98-107) mmol/L Carbon Dioxide 20 L (21-33) mmol/L Anion Gap 13 (10-20) BUN 82 H (7-21) mg/dL Creatinine 3.8 H (0.5-1.4) mg/dL Est GFR ( Amer) 20 Est GFR (Non-Af Amer) 17 Random Glucose 98 (70-110) mg/dL Calcium 7.7 L (8.4-10.5) mg/dL Phosphorus 4.5 (2.5-4.5) mg/dL Magnesium 1.9 (1.7-2.2) mg/dL Total Bilirubin 3.0 H (0.2-1.3) mg/dL AST 83 H D (17-59) U/L ALT 56 (7-56) U/L Alkaline Phosphatase 112 (38-126) U/L Ammonia (9-33) umol/L Total Protein 4.8 L (5.8-8.3) g/dL Albumin 2.5 L (3.0-4.8) g/dL Globulin 2.4 gm/dL Albumin/Globulin Ratio 1.0 L (1.1-1.8) U Random Total Protein (22-128) mg/g creat 10/10/16 10/08/16 Range/Units 11:48 16:10 WBC (4.5-11.0) 10^3/ul RBC (3.5-6.1) 10^6/uL Hgb (14.0-18.0) g/dL Hct (42.0-52.0) % MCV (80.0-105.0) fl MCH (25.0-35.0) pg MCHC (31.0-37.0) g/dl RDW (11.5-14.5) % Plt Count (120.0-450.0) 10^3/uL MPV (7.0-11.0) fl Gran % (50.0-68.0) % Lymph % (Auto) (22.0-35.0) % [place] % (Auto) (1.0-6.0) % Eos % (Auto) (1.5-5.0) % Baso % (Auto) (0.0-3.0) % Gran # (1.4-6.5) Lymph # (1.2-3.4) [place] # (0.1-0.6) Eos # (0.0-0.7) Baso # (0.0-2.0) K/mm3 PT (9.9-11.8) Seconds INR (0.93-1.08) APTT (23.7-30.8) Seconds Sodium (132-148) mmol/L Potassium (3.6-5.0) mmol/L Chloride (98-107) mmol/L Carbon Dioxide (21-33) mmol/L Anion Gap (10-20) BUN (7-21) mg/dL Creatinine (0.5-1.4) mg/dL Est GFR ( Amer) Est GFR (Non-Af Amer) Random Glucose (70-110) mg/dL Calcium (8.4-10.5) mg/dL Phosphorus (2.5-4.5) mg/dL Magnesium (1.7-2.2) mg/dL Total Bilirubin (0.2-1.3) mg/dL AST (17-59) U/L ALT (7-56) U/L Alkaline Phosphatase (38-126) U/L Ammonia 59 H (9-33) umol/L Total Protein (5.8-8.3) g/dL Albumin (3.0-4.8) g/dL Globulin gm/dL Albumin/Globulin Ratio (1.1-1.8) U Random Total Protein 897 H (22-128) mg/g creat Laboratory Results - last 24 hr 10/08/16 10/10/16 10/10/16 16:10 11:48 11:48 WBC RBC Hgb Hct MCV MCH MCHC RDW Plt Count MPV Gran % Lymph % (Auto) [place] % (Auto) Eos % (Auto) Baso % (Auto) Gran # Lymph # [place] # Eos # Baso # PT 16.1 H INR 1.49 H APTT 30.3 Sodium Potassium Chloride Carbon Dioxide Anion Gap BUN Creatinine Est GFR ( Amer) Est GFR (Non-Af Amer) Random Glucose Calcium Phosphorus Magnesium Total Bilirubin AST ALT Alkaline Phosphatase Ammonia 59 H Total Protein Albumin Globulin Albumin/Globulin Ratio U Random Total Protein 897 H 10/11/16 10/11/16 06:01 06:01 WBC 8.1 RBC 3.28 L Hgb 10.5 L Hct 32.5 L MCV 99.1 MCH 32.0 MCHC 32.3 RDW 15.7 H Plt Count 58 L MPV 10.0 Gran % 68.9 H Lymph % (Auto) 26.2 [place] % (Auto) 4.7 Eos % (Auto) 0.1 L Baso % (Auto) 0.1 Gran # 5.55 Lymph # 2.1 [place] # 0.4 Eos # 0.0 Baso # 0.01 PT INR APTT Sodium 142 Potassium 3.6 Chloride 113 H Carbon Dioxide 20 L Anion Gap 13 BUN 82 H Creatinine 3.8 H Est GFR ( Amer) 20 Est GFR (Non-Af Amer) 17 Random Glucose 98 Calcium 7.7 L Phosphorus 4.5 Magnesium 1.9 Total Bilirubin 3.0 H AST 83 H D ALT 56 Alkaline Phosphatase 112 Ammonia Total Protein 4.8 L Albumin 2.5 L Globulin 2.4 Albumin/Globulin Ratio 1.0 L U Random Total Protein Fingerstick Blood Sugar Results: 105 Review of Systems - Review of Systems Review of Systems: Please refer to [facility] Critical Care Progress Note - Ventilator Checklist Head of Bed 30 Degrees: Yes PUD Prophalyxis: Yes DVT Prophylaxis: Yes Assessment/Plan - Assessment and Plan (Free Text) Assessment: 56 year old male with an initial presentation of AMS in the setting of persistent hypokalemia and alcohol withdrawal, which resolved. Patient was then intubated after he was found to be in hypercapnic respiratory failure and subsequently became hemodynamically unstable requiring dual vasopressor support. His presentation is consistent with distributive shock likely from either acute decompensated chronic liver failure or sepsis from C. Diff colitis , with multiorgan dysfunction syndrome including renal failure, encephalopathy and respiratory failure. Patient is no longer requiring vasopressin or levophed for hemodynamic support but is on midodrine. Plan: Neuro: -CT head showed on 10/02 no acute findings in the brain and no acute hemorrhages or infarcts, age related cortical atrophy and ventriculomegaly -Repeat head CT w/o contrast pending -Currently intubated with no sedation for 24 hours -Ammonia measured at 59 and Lactulose 20mg TID started -Continue Ativan 2mg IVP Q2H PRN for symptoms of alcohol withdrawal -Continue Thiamine, Folic Acid and MV supplementation -Continue soft bilateral upper limb restraints, seizure, aspiration and fall precautions Pulm: Mechanical ventilation settings currently at: FiO2-40 PEEP-5 RR-26 Tidal Volume-400 -Chest X-Ray on 10/11 showed no active disease with ET and OG tube unchanged grossly -Will continue protective lung ventilator strategy -Continue Duonebs 3ml IH [id number] for wheezing Cardio: -EKG done on 10/05 shows sinus tachycardia at a rate of 106 and low voltage QRS with a non-specific t-wave abnormality -ECHO showed LVEF of 55% with poor visualization of the valvular structures due to poor ECHO window and to consider MARILUZ if clinically indicated -Continue midodrine 5mg PO TID -Cardiology consulted, appreciate all recommendations GI: -CT abdomen/pelvis done on 10/04 showed possible sigmoid colitis, mild-to- moderate abdominal and pelvic ascites, free intrarenal gas or definite bowel obstruction, and hepatosplenomegaly again identified as well as diffuse fatty infiltration of liver -Approximately 2.5L of fluid removed via paracentesis on 10/05 with appropriate albumin resuscitation provided -Ascites predominantly lymphocytic, will await cytology results to rule out malignancy -Continue Merrem 250mg IVPB Q12H, and Vancomycin 125mg PO Q6H for C. Difficile, per ID -AST/ALT at 83/56 with T. Bili at 3.0, currently downtrending -Ammonia measured at 59 and Lactulose 20mg TID started -Continue Rifaximin 550mg PO BID for hepatic encephalopathy -Continue with Nepro tube feedings at 25ml/hr and increase by 10ml/hr as tolerated -Continue Reglan 10mg IVP Q6H PRN for residual tube feeding -GI consulted, all recommendations appreciated Renal: -BUN/Creatinine at 84/3.8, representing acute renal failure -Cryoglobulin, Rheumatoid Factor, and PEEWEE pending -Urine total protein at 897 -Vyas catheter in place and draining 400cc of dariela urine over the past 24 hours -Will continue to replete calcium, magnesium, phosphorus and potassium as needed -Will continue to monitor with serial CMP's, magnesium and phosphorous levels -Family stating that patient would not have wanted dialysis in this situation -Nephrology consulted, all recommendations appreciated Heme/Onc: -H/H at 10.5/32.5 -Platelets improving at 58 -Will continue to monitor with serial CBC's ID: -Currently on Micafungin 100mg IV daily (day 4), Merrem 250mg IVPB Q12 (day 8), and Vancomycin 125mg PO Q6 (day 9 of PO/day 10 overall) -Febrile overnight to 101.1, given one dose of PRN tylenol and one dose of Amikacin 500mg IV, per ID -UA, new blood, urine and fungal cultures pending -Previous blood, sputum and urine cultures growing tom albicans -C. Diff antigen positive and toxin negative -MRSA screen negative -Procal 4.12 -Continue Tylenol 320mg (Liquid) PO Q4 PRN for fever over 100.4 -ID consulted, all recommendations appreciated Endocrine: -Will maintain euglycemic with blood glucose between 140 and 180 Lines: -Continue all peripheral lines GI Prophylaxis: Protonix DVT Prophylaxis: SCD's Disposition: Patient off of sedation and intubated with minimal response to painful stimuli only, overbreathing the ventilator, with intact gag reflex, HI and negative corneal reflex. Overall prognosis is poor. Daughter is updated on patients clinical condition daily. Patient seen and case discussed with attending, Dr. Groves. - Date & Time Date: 10/11/16 Time: 10:56 <Lauren Grovesriy - Last Filed: 10/11/16 13:35> CCU Objective - Vital Signs / Intake & Output Intake and Output (Last 8hrs): Intake & Output 10/10/16 10/11/16 10/11/16 22:59 06:59 14:59 Intake Total 1220 760 Output Total 900 825 Balance 320 -65 Intake: IV 220 160 Right Forearm 220 Right Upper arm 160 Tube Feeding 600 300 Other 400 300 Output: Urine 400 425 Urethral (Vyas) 400 425 Stool 500 400 Other: Voiding Method Indwelling Catheter - Medications Active Medications: Active Medications Generic Name Dose Route Start Last Admin Trade Name Freq PRN Reason Stop Dose Admin Acetaminophen 320 mg 10/03/16 07:45 10/11/16 09:48 Tylenol 160mg/5ml Oral Soln PO 320 mg Q4 PRN Administration Fever >100.4 F Albuterol/Ipratropium 3 ml 10/05/16 08:00 10/11/16 13:09 Duoneb 3 Mg/0.5 Mg (3 Ml) Ud IH 3 ml [id number] TONI Administration Artificial Tears 1 gm 10/10/16 18:00 10/11/16 05:26 Artificial Tears Opht Oint OU 1 gm Q6 TONI Administration Folic Acid 1 mg 10/03/16 10:00 10/11/16 09:12 Folic Acid PO 1 mg DAILY TONI Administration Fentanyl Citrate 1,000 mcg in 100 mls @ 7.5 mls/hr 10/05/16 07:39 10/09/16 18 :40 Fentanyl Citrate/Sodium Chloride 1 Mg/100 Ml IV 25 mcg/hr .[id number] PRN 2.5 mls/hr TITRATE PER MD ORDER Titration Protocol 75 MCG/HR Micafungin Sodium 100 mg/ 100 mls @ 100 mls/hr 10/08/16 10:00 10/11/16 10:29 Sodium Chloride IV 10/17/16 10:01 100 mls/hr DAILY TONI Administration Protocol Sodium Chloride 1,000 mls @ 80 mls/hr 10/08/16 12:15 10/09/16 13:00 Sodium Chloride 0.45% IV Not Given .[id number] TONI Meropenem 250 mg/ Sodium 100 mls @ 100 mls/hr 10/08/16 13:30 10/11/16 03:01 Chloride IVPB 10/17/16 13:31 100 mls/hr Q12H TONI Administration Protocol Sodium Bicarbonate 100 meq/ 1,100 mls @ 75 mls/hr 10/11/16 13:00 Dextrose IV .[id number] TONI Lactulose 20 gm 10/11/16 10:00 10/11/16 09:11 Enulose PO 20 gm TID TONI Administration Lorazepam 2 mg 10/02/16 21:28 10/07/16 05:33 Ativan IVP 2 mg Q2H PRN Administration Agitation Protocol Metoclopramide HCl 10 mg 10/09/16 16:56 10/09/16 17:13 Reglan IVP 10 mg Q6H PRN Administration Other Midodrine 5 mg 10/09/16 10:00 10/11/16 09:12 Proamatine PO 5 mg TID TONI Administration Pantoprazole Sodium 40 mg 10/03/16 10:00 10/11/16 09:12 Protonix Inj IVP 40 mg DAILY TONI Administration Rifaximin 550 mg 10/05/16 10:00 10/11/16 09:12 Xifaxan PO 550 mg BID TONI Administration Protocol Thiamine HCl 100 mg 10/03/16 10:00 10/11/16 09:12 Vitamin B1 Tab PO 100 mg DAILY TONI Administration Vancomycin HCl 125 mg 10/03/16 11:00 10/11/16 05:26 Vancocin 25 Mg/Ml (Oral Use) PO 125 mg Q6H TONI Administration Protocol Vitamin A 1 ea 10/03/16 10:00 10/11/16 09:12 Vitamin A & D Oint Ud Foilpak TOP 1 ea DAILY TONI Administration Vitamin B Complex/Vit C/Folic Acid 1 tab 10/03/16 08:00 10/11/16 09:12 Nephro-Mariann PO 1 tab 0800 TONI Administration - Patient Studies Lab Studies: Microbiology Studies 10/08/16 14:05 Blood Culture - Preliminary Blood NO GROWTH AFTER 48 HOURS 10/08/16 13:50 Blood Culture - Preliminary Blood NO GROWTH AFTER 48 HOURS Lab Studies 10/11/16 10/11/16 10/11/16 Range/Units 06:01 06:01 06:00 WBC 8.1 (4.5-11.0) 10^3/ul RBC 3.28 L (3.5-6.1) 10^6/uL Hgb 10.5 L (14.0-18.0) g/dL Hct 32.5 L (42.0-52.0) % MCV 99.1 (80.0-105.0) fl MCH 32.0 (25.0-35.0) pg MCHC 32.3 (31.0-37.0) g/dl RDW 15.7 H (11.5-14.5) % Plt Count 58 L (120.0-450.0) 10^3/uL MPV 10.0 (7.0-11.0) fl Gran % 68.9 H (50.0-68.0) % Lymph % (Auto) 26.2 (22.0-35.0) % [place] % (Auto) 4.7 (1.0-6.0) % Eos % (Auto) 0.1 L (1.5-5.0) % Baso % (Auto) 0.1 (0.0-3.0) % Gran # 5.55 (1.4-6.5) Lymph # 2.1 (1.2-3.4) [place] # 0.4 (0.1-0.6) Eos # 0.0 (0.0-0.7) Baso # 0.01 (0.0-2.0) K/mm3 Sodium 142 (132-148) mmol/L Potassium 3.6 (3.6-5.0) mmol/L Chloride 113 H (98-107) mmol/L Carbon Dioxide 20 L (21-33) mmol/L Anion Gap 13 (10-20) BUN 82 H (7-21) mg/dL Creatinine 3.8 H (0.5-1.4) mg/dL Est GFR ( Amer) 20 Est GFR (Non-Af Amer) 17 Random Glucose 98 (70-110) mg/dL Calcium 7.7 L (8.4-10.5) mg/dL Phosphorus 4.5 (2.5-4.5) mg/dL Magnesium 1.9 (1.7-2.2) mg/dL Total Bilirubin 3.0 H (0.2-1.3) mg/dL AST 83 H D (17-59) U/L ALT 56 (7-56) U/L Alkaline Phosphatase 112 (38-126) U/L Total Protein 4.8 L (5.8-8.3) g/dL Albumin 2.5 L (3.0-4.8) g/dL Globulin 2.4 gm/dL Albumin/Globulin Ratio 1.0 L (1.1-1.8) Procalcitonin 1.06 H (0.19-0.49) NG/ML U Random Total Protein (22-128) mg/g creat PEEWEE Screen (Negative) PEEWEE Titer PEEWEE Titer 2 PEEWEE Pattern PEEWEE Pattern 2 10/08/16 10/07/16 Range/Units 16:10 15:00 WBC (4.5-11.0) 10^3/ul RBC (3.5-6.1) 10^6/uL Hgb (14.0-18.0) g/dL Hct (42.0-52.0) % MCV (80.0-105.0) fl MCH (25.0-35.0) pg MCHC (31.0-37.0) g/dl RDW (11.5-14.5) % Plt Count (120.0-450.0) 10^3/uL MPV (7.0-11.0) fl Gran % (50.0-68.0) % Lymph % (Auto) (22.0-35.0) % [place] % (Auto) (1.0-6.0) % Eos % (Auto) (1.5-5.0) % Baso % (Auto) (0.0-3.0) % Gran # (1.4-6.5) Lymph # (1.2-3.4) [place] # (0.1-0.6) Eos # (0.0-0.7) Baso # (0.0-2.0) K/mm3 Sodium (132-148) mmol/L Potassium (3.6-5.0) mmol/L Chloride (98-107) mmol/L Carbon Dioxide (21-33) mmol/L Anion Gap (10-20) BUN (7-21) mg/dL Creatinine (0.5-1.4) mg/dL Est GFR ( Amer) Est GFR (Non-Af Amer) Random Glucose (70-110) mg/dL Calcium (8.4-10.5) mg/dL Phosphorus (2.5-4.5) mg/dL Magnesium (1.7-2.2) mg/dL Total Bilirubin (0.2-1.3) mg/dL AST (17-59) U/L ALT (7-56) U/L Alkaline Phosphatase (38-126) U/L Total Protein (5.8-8.3) g/dL Albumin (3.0-4.8) g/dL Globulin gm/dL Albumin/Globulin Ratio (1.1-1.8) Procalcitonin (0.19-0.49) NG/ML U Random Total Protein 897 H (22-128) mg/g creat PEEWEE Screen Negative (Negative) PEEWEE Titer TEST NOT PERFORMED PEEWEE Titer 2 TEST NOT PERFORMED PEEWEE Pattern TEST NOT PERFORMED PEEWEE Pattern 2 TEST NOT PERFORMED Laboratory Results - last 24 hr 10/07/16 10/08/16 10/11/16 15:00 16:10 06:00 WBC RBC Hgb Hct MCV MCH MCHC RDW Plt Count MPV Gran % Lymph % (Auto) [place] % (Auto) Eos % (Auto) Baso % (Auto) Gran # Lymph # [place] # Eos # Baso # Sodium Potassium Chloride Carbon Dioxide Anion Gap BUN Creatinine Est GFR ( Amer) Est GFR (Non-Af Amer) Random Glucose Calcium Phosphorus Magnesium Total Bilirubin AST ALT Alkaline Phosphatase Total Protein Albumin Globulin Albumin/Globulin Ratio Procalcitonin 1.06 H U Random Total Protein 897 H PEEWEE Screen Negative PEEWEE Titer TEST NOT PERFORMED PEEWEE Titer 2 TEST NOT PERFORMED PEEWEE Pattern TEST NOT PERFORMED PEEWEE Pattern 2 TEST NOT PERFORMED 10/11/16 10/11/16 06:01 06:01 WBC 8.1 RBC 3.28 L Hgb 10.5 L Hct 32.5 L MCV 99.1 MCH 32.0 MCHC 32.3 RDW 15.7 H Plt Count 58 L MPV 10.0 Gran % 68.9 H Lymph % (Auto) 26.2 [place] % (Auto) 4.7 Eos % (Auto) 0.1 L Baso % (Auto) 0.1 Gran # 5.55 Lymph # 2.1 [place] # 0.4 Eos # 0.0 Baso # 0.01 Sodium 142 Potassium 3.6 Chloride 113 H Carbon Dioxide 20 L Anion Gap 13 BUN 82 H Creatinine 3.8 H Est GFR ( Amer) 20 Est GFR (Non-Af Amer) 17 Random Glucose 98 Calcium 7.7 L Phosphorus 4.5 Magnesium 1.9 Total Bilirubin 3.0 H AST 83 H D ALT 56 Alkaline Phosphatase 112 Total Protein 4.8 L Albumin 2.5 L Globulin 2.4 Albumin/Globulin Ratio 1.0 L Procalcitonin U Random Total Protein PEEWEE Screen PEEWEE Titer PEEWEE Titer 2 PEEWEE Pattern PEEWEE Pattern 2 Assessment/Plan - Assessment and Plan (Free Text) Plan: Patient seen and examined on rounds with Dr Cerna, agree with note, A/P. Patient remains intubated, sedation shut off for sedation vacation, patient minimally responsive. Blood culture, urine culture, and sputum culture postive for yeast, on Mycamine, ID following. Patient had all lines removed, Arterial Line, PICC line, and Vyas changed. Patient with increased UOP today, renal following. Patient has been off pressors, HD stable. Pt with difficulty awakening from sedation, ?uremia, Hepatic encephalopathy effect. On lactulose, Rifaximin. Will obtain CT head today. Recommend: Resp: - keep intubated, all sedation shut off, patient not ready for extubation, unable to protect airway, does not follow commands - CXR without focal infiltrate Infectious: - +Cdiff - +yeast in blood, fungemia - ID following - Merrem,Vanco PO, Mycamine, renally dosed - still spiking temp, one dose of Amikacin given today - patient had all lines art line, PICC line removed, Vyas changed - ECHO done, no evidence of IE on limited window views - Ophtho consult noted CV: - off pressors, HD stable - midodrine 5mg TID Heme: - HH Stable - cont with PPI - keep HH>7, plts>50 Alimentary/GI: - hx of EtOH abuse, Cirrhosis, Hep C - MELD 22 - Rifaxamin - Started on Lactulose 20g TID - PPI - Reglan IV Renal: - UOP with improvement, renal following - no acute indications for HD at this time as per renal - follow up renal Neuro: - intial CT head negative - patient off sedation, with minimal response, ??2/2 to Uremia, HE - will obtain CT head without contrast today Line: ETT NGT Vyas DVT ppx GI ppx DNR Poor prognosis. , Sandra Kruger and Daughter Nasrin coming in today after 4pm to have another discussion.
[2016-10-11] MEDS ORDERED: Sodium Bicarbonate 8.4% 100 MEQ in Dextrose 5%/0.9% NS 1,000 ML IV SCH (12:45)
--- NOTE | 2016-10-11 16:01 | CP.PCM.PN ---
<Justo Torres - Last Filed: 10/11/16 16:26> Subjective - Date & Time of Evaluation Date of Evaluation: 10/11/16 Time of Evaluation: 08:03 - Subjective Subjective: Patient was seen and examined at bedside this morning. Patient remains intubated but is currently not sedated. Patient remains unresponsive to verbal and tactile stimuli. Per nursing, patient had a temperature of 101F overnight. No other acute events occurred overnight. The remainder of the ROS was unable to obtain due to the patient's intubation status. Objective - Vital Signs/Intake and Output Vital Signs (last 24 hours): Temp Pulse Resp BP Pulse Ox 100.9 F H 103 H 33 H 121/63 80 L 10/11/16 04:59 10/11/16 04:59 10/10/16 07:37 10/11/16 05:00 10/10/16 23:00 Intake and Output: 10/11/16 10/11/16 06:59 18:59 Intake Total 1220 760 Output Total 900 825 Balance 320 -65 - Medications Medications: Current Medications Acetaminophen (Tylenol 160mg/5ml Oral Soln) 320 mg PO Q4 PRN PRN Reason: Fever >100.4 F Last Admin: 10/11/16 09:48 Dose: 320 mg Albuterol/Ipratropium (Duoneb 3 Mg/0.5 Mg (3 Ml) Ud) 3 ml IH [id number] [facility] Last Admin: 10/11/16 13:09 Dose: 3 ml Artificial Tears (Artificial Tears Opht Oint) 1 gm OU Q6 [facility] Last Admin: 10/11/16 05:26 Dose: 1 gm Folic Acid (Folic Acid) 1 mg PO DAILY [facility] Last Admin: 10/11/16 09:12 Dose: 1 mg Fentanyl Citrate (Fentanyl Citrate/Sodium Chloride 1 Mg/100 Ml) 1,000 mcg in 100 mls @ 7.5 mls/hr IV .[id number] PRN; Protocol; 75 MCG/HR PRN Reason: TITRATE PER MD ORDER Last Titration: 10/09/16 18:40 Dose: 25 mcg/hr, 2.5 mls/hr Micafungin Sodium 100 mg/ (Sodium Chloride) 100 mls @ 100 mls/hr IV DAILY [facility] PRN Reason: Protocol Stop: 10/17/16 10:01 Last Admin: 10/11/16 10:29 Dose: 100 mls/hr Sodium Chloride (Sodium Chloride 0.45%) 1,000 mls @ 80 mls/hr IV .[id number] [facility] Last Admin: 10/09/16 13:00 Dose: Not Given Meropenem 250 mg/ Sodium (Chloride) 100 mls @ 100 mls/hr IVPB Q12H [facility] PRN Reason: Protocol Stop: 10/17/16 13:31 Last Admin: 10/11/16 03:01 Dose: 100 mls/hr Sodium Bicarbonate 100 meq/ (Dextrose) 1,100 mls @ 75 mls/hr IV .[id number] [facility] Lactulose (Enulose) 20 gm PO TID [facility] Last Admin: 10/11/16 09:11 Dose: 20 gm Lorazepam (Ativan) 2 mg IVP Q2H PRN; Protocol PRN Reason: Agitation Last Admin: 10/07/16 05:33 Dose: 2 mg Metoclopramide HCl (Reglan) 10 mg IVP Q6H PRN PRN Reason: Other Last Admin: 10/09/16 17:13 Dose: 10 mg Midodrine (Proamatine) 5 mg PO TID [facility] Last Admin: 10/11/16 09:12 Dose: 5 mg Pantoprazole Sodium (Protonix Inj) 40 mg IVP DAILY [facility] Last Admin: 10/11/16 09:12 Dose: 40 mg Rifaximin (Xifaxan) 550 mg PO BID [facility] PRN Reason: Protocol Last Admin: 10/11/16 09:12 Dose: 550 mg Thiamine HCl (Vitamin B1 Tab) 100 mg PO DAILY [facility] Last Admin: 10/11/16 09:12 Dose: 100 mg Vancomycin HCl (Vancocin 25 Mg/Ml (Oral Use)) 125 mg PO Q6H [facility] PRN Reason: Protocol Last Admin: 10/11/16 14:15 Dose: 125 mg Vitamin A (Vitamin A & D Oint Ud Foilpak) 1 ea TOP DAILY [facility] Last Admin: 10/11/16 09:12 Dose: 1 ea Vitamin B Complex/Vit C/Folic Acid (Nephro-Mariann) 1 tab PO 0800 [facility] Last Admin: 10/11/16 09:12 Dose: 1 tab - Labs Labs: 10/11/16 06:01 10/11/16 06:01 PT 16.1 Seconds (9.9-11.8) H 10/10/16 11:48 INR 1.49 (0.93-1.08) H 10/10/16 11:48 APTT 30.3 Seconds (23.7-30.8) 10/10/16 11:48 - Constitutional Appears: Toxic - Head Exam Head Exam: NORMAL INSPECTION, NORMOCEPHALIC - Eye Exam Eye Exam: EOMI, Normal appearance, PERRL Pupil Exam: NORMAL ACCOMODATION, PERRL - ENT Exam ENT Exam: Mucous Membranes Moist - Respiratory Exam Respiratory Exam: Clear to Ausculation Bilateral, NORMAL BREATHING PATTERN - Cardiovascular Exam Cardiovascular Exam: REGULAR RHYTHM, +S1, +S2 - GI/Abdominal Exam GI & Abdominal Exam: Soft, Normal Bowel Sounds. absent: Mass - Skin Skin Exam: Mottled Assessment and Plan - Assessment and Plan (Free Text) Assessment: Hypercapnic Respiratory Failure -Patient intubated on 10/05. Today: FiO2= 40%, RR=26, PEEP+5, and Tidal Volume + 400 ml, O2 saturation+96% -ABG: pCO2+47, pO2+73, pH+7.26 -Patient hypotension slightly improved to 120/67 and remains off pressors. -Cardio following -CXR shows no active pulmonary disease. -Continue to monitor vital signs. Acute renal failure most likely secondary to glomerulonephritis -BUN 82 and Creatinine is 3.8. -Nephrology consult note appreciated. -No acute indications for HD at this time. Urine output today increased to 125 ml( from 25). Family to have another discussion today after 4 p.m. about further management options for the patient. -Nephrology consult note appreciate- Thrombocytopenia -Plt count now 58 (up from 21 on 10/10/16). Continue to monitor plt count and consider tranfusion if patient drops below 20. -Monitor for bleeding. Ascites -s/p ascitic fluid removed on 10/05. -culture growth negative after 120 hours. Hepatic encephalopathy -Continue Rifaxamin Anemia -Stool occult blood positive on 10/05. -Hgb is 10.5 (up from 9.2) and Hct is 32.5 (up from 28.2). Patient is s/p 3 units leukocyte reduced PRBC's. Continue to monitor H/H levels with serial CBC' s. Sepsis/Fungemia -Grew Kamille Albicans -Continue Micafungin (renal dosing) C Diff infection. -Continue Vancomycin GI ppx -Continue Protonix DVT ppx. -continue SCD's <Mell Gauthier - Last Filed: 10/11/16 17:39> Objective - Vital Signs/Intake and Output Vital Signs (last 24 hours): Temp Pulse Resp BP Pulse Ox 100.9 F H 103 H 33 H 121/63 80 L 10/11/16 04:59 10/11/16 04:59 10/10/16 07:37 10/11/16 05:00 10/10/16 23:00 Intake and Output: 10/11/16 10/11/16 06:59 18:59 Intake Total 1220 760 Output Total 900 825 Balance 320 -65 - Medications Medications: Current Medications Acetaminophen (Tylenol 160mg/5ml Oral Soln) 320 mg PO Q4 PRN PRN Reason: Fever >100.4 F Last Admin: 10/11/16 09:48 Dose: 320 mg Albuterol/Ipratropium (Duoneb 3 Mg/0.5 Mg (3 Ml) Ud) 3 ml IH [id number] [facility] Last Admin: 10/11/16 13:09 Dose: 3 ml Artificial Tears (Artificial Tears Opht Oint) 1 gm OU Q6 [facility] Last Admin: 10/11/16 16:09 Dose: 1 gm Folic Acid (Folic Acid) 1 mg PO DAILY [facility] Last Admin: 10/11/16 09:12 Dose: 1 mg Micafungin Sodium 100 mg/ (Sodium Chloride) 100 mls @ 100 mls/hr IV DAILY [facility] PRN Reason: Protocol Stop: 10/17/16 10:01 Last Admin: 10/11/16 10:29 Dose: 100 mls/hr Sodium Chloride (Sodium Chloride 0.45%) 1,000 mls @ 80 mls/hr IV .[id number] [facility] Last Admin: 10/09/16 13:00 Dose: Not Given Meropenem 250 mg/ Sodium (Chloride) 100 mls @ 100 mls/hr IVPB Q12H [facility] PRN Reason: Protocol Stop: 10/17/16 13:31 Last Admin: 10/11/16 16:10 Dose: 100 mls/hr Sodium Bicarbonate 100 meq/ (Dextrose) 1,100 mls @ 75 mls/hr IV .[id number] [facility] Lactulose (Enulose) 20 gm PO TID [facility] Last Admin: 10/11/16 14:10 Dose: 20 gm Lorazepam (Ativan) 2 mg IVP Q2H PRN; Protocol PRN Reason: Agitation Last Admin: 10/07/16 05:33 Dose: 2 mg Metoclopramide HCl (Reglan) 10 mg IVP Q6H PRN PRN Reason: Other Last Admin: 10/09/16 17:13 Dose: 10 mg Midodrine (Proamatine) 5 mg PO TID [facility] Last Admin: 10/11/16 14:15 Dose: 5 mg Pantoprazole Sodium (Protonix Inj) 40 mg IVP DAILY [facility] Last Admin: 10/11/16 09:12 Dose: 40 mg Rifaximin (Xifaxan) 550 mg PO BID [facility] PRN Reason: Protocol Last Admin: 10/11/16 09:12 Dose: 550 mg Thiamine HCl (Vitamin B1 Tab) 100 mg PO DAILY [facility] Last Admin: 10/11/16 09:12 Dose: 100 mg Vancomycin HCl (Vancocin 25 Mg/Ml (Oral Use)) 125 mg PO Q6H [facility] PRN Reason: Protocol Last Admin: 10/11/16 14:15 Dose: 125 mg Vitamin A (Vitamin A & D Oint Ud Foilpak) 1 ea TOP DAILY [facility] Last Admin: 10/11/16 09:12 Dose: 1 ea Vitamin B Complex/Vit C/Folic Acid (Nephro-Mariann) 1 tab PO 0800 [facility] Last Admin: 10/11/16 09:12 Dose: 1 tab - Labs Labs: 10/11/16 06:01 10/11/16 06:01 PT 16.1 Seconds (9.9-11.8) H 10/10/16 11:48 INR 1.49 (0.93-1.08) H 10/10/16 11:48 APTT 30.3 Seconds (23.7-30.8) 10/10/16 11:48 Attending/Attestation - Attestation I have personally seen and examined this patient.: Yes I have fully participated in the care of the patient.: Yes I have reviewed all pertinent clinical information, including history, physical exam and plan: Yes Notes (Text): 10/11/16 17:34 Attending note; Patient seen and examined with resident and pharmaceutical development technician in ICU. patient is a 56-year-old male with a history of alcohol abuse, cirrhosis is admitted with alcohol withdrawal symptoms. Patient is currently intubated. still not awake, following commands. Not a candidate for weaning protocol. hypotension resolved. Off pressors. Acute renal failure; creatinine Is 3.8. nephrology evaluation appreciated. possible HTN vs glomerulonephritis secondary to hep C suspected. No need for emergency hemodialysis. monitor closely. Ascites; status post 2 L of ascitic fluid removed. culture is negative. hepatic encephalopathy; continue rifaximin. anemia; Status post 3 unit PRBC transfusion. HB is 11. No active bleeding noted. coagulopathy; status post FFP transfusion. Thrombocytopenia; 1 unit platelet transfusion given yesterday. Platelet is 58. monitor for bleeding. sepsis/fungemia; with tom albicans. on mycofungin. All lines removed. C. difficile; continue vancomycin. Sepsis/pneumonia; continue meropenem. Continue tube feedings as tolerated. Had a long discussion with patient's , daughter yesterday. Currently patient is DNR. Patient's prognosis discussed in detail. continue current care with DNR status for now. will make decisions about further care after discussing with family members. 10/11/16 17:38
[2016-10-11] MEDS ORDERED: Vancomycin 1gm in NS 250ml 1 GM/250 ML BAG IVPB STA (18:38)
--- NOTE | 2016-10-11 18:47 | CT ---
PROCEDURE: CT HEAD WITHOUT CONTRAST. HISTORY: AMS COMPARISON: Noncontrast head CT performed 10/02/16 TECHNIQUE: Axial computed tomography images were obtained through the head/brain without intravenous contrast. Radiation dose: Total exam DLP = 677.45 mGy-cm. This CT exam was performed using one or more of the following dose reduction techniques: Automated exposure control, adjustment of the mA and/or kV according to patient size, and/or use of iterative reconstruction technique. FINDINGS: HEMORRHAGE: No intracranial hemorrhage. BRAIN: Diffuse atrophy with prominence of the ventricles and sulci noted. No mass effect or edema. Dense intracranial atherosclerosis. Mild scattered Scattered periventricular and subcortical white matter hypodensities, which are nonspecific, but often seen with chronic microvascular ischemic disease. Please note that MRI with diffusion imaging is more sensitive in the detection of acute ischemic event. VENTRICLES: No hydrocephalus. CALVARIUM: Unremarkable. PARANASAL SINUSES: Unremarkable as visualized. No significant inflammatory changes. MASTOID AIR CELLS: Unremarkable as visualized. No inflammatory changes. OTHER FINDINGS: None. IMPRESSION: No acute intracranial pathology identified. Additional findings as above.
[2016-10-11] MEDS: Sodium Bicarbonate 8.4% 100 MEQ in Dextrose 5% In Water 1,000 ML IV SCH (19:47)
[2016-10-12] MEDS: Albuterol-Ipratrop 3 mg / 0.5 (3 ml) UD IH SCH ×4 (01:39→19:57)
--- NOTE | 2016-10-12 04:23 | PN ---
NEPHROLOGY FOLLOWUP NOTE SUBJECTIVE: A 56-year-old male with history of hepatitis C, alcohol abuse with liver cirrhosis, admitted initially with alcohol withdrawal. Hospital course complicated by hypercapnic respiratory failure, sepsis, and acute renal failure, nephrology following for the same. Per staff, the patient remains less and less responsive, still overbreathing the vent, however, urine output has been increasing. PHYSICAL EXAMINATION VITAL SIGNS: This morning, blood pressure 118/71, heart rate 106, respirations 36, O2 saturation 95% on 40% FiO2 via mechanical ventilation. Temperature 100.9. GENERAL: In no distress. HEENT: Conjunctival hemorrhage is present. Moist mucous membranes. CARDIOVASCULAR: Heart, S1, S2, normal. No murmurs, no gallops, no rubs. RESPIRATORY: Lungs, clear to auscultation bilaterally. No rales, no rhonchi. GI: Abdomen, soft, distended. : Vyas in place. EXTREMITIES: Markedly edematous, anasarca. SKIN: Warm, mottled distal extremities. No cyanosis. NEUROLOGIC: Sluggish eye opening to noxious stimuli. LABORATORY DATA: This morning, CBC, WBC 8.1, hemoglobin 10.5, hematocrit 32.5, platelets 58. Chemistry panel; sodium 142, potassium 3.6, chloride 113, bicarb 20, BUN 82, creatinine 3.8, calcium 7.7, T-bilirubin of 3.0, albumin 2.5. ASSESSMENT AND PLAN: 1. Acute renal failure, appears secondary to acute glomerulonephritis, likely secondary to hepatitis C. The patient given 1 g of Solu-Medrol 4 days ago and started to have increased urine output since yesterday. Currently, spiking fevers and have been holding off on additional doses of Solu-Medrol due to fungemia. Serum creatinine at relative plateau indicating that renal function is stabilizing. Mild metabolic acidosis present, otherwise stable electrolytes and FiO2 requirement. No indication for urgent renal replacement therapy, although this may help improve mental status by correcting uremia (family not wanting aggressive measures including hemodialysis). We will continue to hold off additional doses of Solu-Medrol in the setting of recurrent and persistent fevers. We will reconsider once afebrile. 2. Acute hypercapnic respiratory failure. The patient still with mild hypercapnia despite being tachypneic and breathing over a vent. Does not appear he will tolerate extubation. Started on bicarb drip to help metabolic acidosis, which may help decrease respiratory effort and possibly aid in extubation (D5W with 100 mEq of sodium bicarb running at 75 mL per hour). 3. Hypokalemia, currently resolved. Continue to monitor, especially with fluctuating renal function. 4. Hypocalcemia, resolved. 5. Sepsis, on micafungin for Mellisa in blood, sputum, and urine. No renal dose adjustment needed, on meropenem 250 mg q. 12 hours. Correctly dose for creatinine clearance less than 10, received a dose of amikacin earlier today. Recommend to hold off on further doses of aminoglycosides unless it is crucial to control sepsis as the patient may gain state of renal recovery and we do not want to abort this process. Rusty Mcnulty MD
[2016-10-12] MEDS: Vancomycin 25 MG/ML PO SCH ×4 (04:56→22:09)
[2016-10-12] MEDS: Mineral Oil/Petrolatum Opht Oint(3.5 gm) OU SCH ×3 (05:05→17:21)
[2016-10-12 05:52] LABS: HEPATITIS C VIRAL RNA QUAL Detected
--- NOTE | 2016-10-12 07:45 | CP.CCUPN ---
<KENDY CERNA - Last Filed: 10/12/16 10:37> CCU Subjective - Physician Review Subjective (Free Text): 10/12/16 10:37 Patient was seen and assessed at bedside. Patient intubated and no longer on sedation for 60 hours, however patient continues to be unresponsive to verbal and tactile stimuli with minimal response to painful stimuli. Per chart review, patient was febrile to 101.7 overnight. No other complaints or acute events were reported. ROS continues to be unobtainable due to patients clinical condition. CCU Objective - Vital Signs / Intake & Output Vital Signs (Last 4 hours): Vital Signs Temp Pulse Resp BP Pulse Ox 10/12/16 07:07 34 H 97 10/12/16 06:00 100.4 F H 99 H 113/68 97 10/12/16 05:00 100.6 F H 103 H 109/68 97 10/12/16 04:27 101.1 F H 96 H 107/66 96 10/12/16 04:00 101.7 F H 97 Intake and Output (Last 8hrs): Intake & Output 10/11/16 10/12/16 10/12/16 22:59 06:59 14:59 Intake Total 850 1600 Output Total 1750 900 Balance -900 700 Intake: IV 400 900 Right Forearm 400 Right Upper arm 900 Tube Feeding 250 600 Other 200 100 Output: Urine 750 500 Urethral (Vyas) 750 500 Stool 1000 400 Other: Voiding Method Indwelling Catheter - Physical Exam Head: Positive for: Atraumatic, Normocephalic Pupils: Positive for: PERRL, Sluggish Conjunctiva: Positive for: Injected (red conjunctival injection with no hemorrhage) Ears: Positive for: Normal Mouth: Positive for: Moist Mucous Membranes, Other (ET and OG tube in position in oral cavity) Nose (External): Positive for: Atraumatic Neck: Positive for: Trachea Midline. Negative for: Lymphadenopathy Respiratory/Chest: Positive for: Clear to Auscultation, Good Air Exchange, Tachypneic, Other (Mechanical ventilation). Negative for: Respiratory Distress , Accessory Muscle Use, Wheezes, Decreased Breath Sounds, Retracting, Rhonchi Cardiovascular: Positive for: Regular Rate and Rhythm, Normal S1, S2. Negative for: Murmurs Abdomen: Positive for: Normal Bowel Sounds, Other (Paracentesis site with sutures, no signs of infection, dressing clean, dry and intact; shifting dullness). Negative for: Tenderness, Distention, Peritoneal Signs Genitourinary Male: Positive for: Testicle Swelling, Other (Vyas in place) Back: Positive for: Normal Inspection Upper Extremity: Positive for: Edema (1+ pitting edema B/L UE). Negative for: Normal Inspection (Multiple areas of ecchymoses), Cyanosis Lower Extremity: Positive for: Edema (2+ Pitting edema B/L up to thighs). Negative for: Normal Inspection Neurological: Positive for: Other (Gag intact, corneal reflex negative). Negative for: GCS=15 (GCS of 3T), CN II-XII Intact, Speech Normal Skin: Positive for: Warm, Dry, Other (Areas of serous weeping from multiple areas of skin). Negative for: Rashes, Normal Color (multiple ecchymoses over UE B/L) Psychiatric: Negative for: Alert (sedated, arousable to tactile stimuli), Oriented x 3, Normal Insight, Normal Concentration - Medications Active Medications: Active Medications Generic Name Dose Route Start Last Admin Trade Name Freq PRN Reason Stop Dose Admin Acetaminophen 320 mg 10/03/16 07:45 10/11/16 23:59 Tylenol 160mg/5ml Oral Soln PO 320 mg Q4 PRN Administration Fever >100.4 F Albuterol/Ipratropium 3 ml 10/05/16 08:00 10/12/16 07:04 Duoneb 3 Mg/0.5 Mg (3 Ml) Ud IH 3 ml [id number] TONI Administration Artificial Tears 1 gm 10/10/16 18:00 10/12/16 05:05 Artificial Tears Opht Oint OU 1 gm Q6 TONI Administration Folic Acid 1 mg 10/03/16 10:00 10/11/16 09:12 Folic Acid PO 1 mg DAILY TONI Administration Micafungin Sodium 100 mg/ 100 mls @ 100 mls/hr 10/08/16 10:00 10/11/16 10:29 Sodium Chloride IV 10/17/16 10:01 100 mls/hr DAILY TONI Administration Protocol Sodium Chloride 1,000 mls @ 80 mls/hr 10/08/16 12:15 10/09/16 13:00 Sodium Chloride 0.45% IV Not Given .[id number] TONI Meropenem 250 mg/ Sodium 100 mls @ 100 mls/hr 10/08/16 13:30 10/12/16 00:50 Chloride IVPB 10/17/16 13:31 100 mls/hr Q12H TONI Administration Protocol Sodium Bicarbonate 100 meq/ 1,100 mls @ 75 mls/hr 10/11/16 13:00 10/11/16 19: 47 Dextrose IV 75 mls/hr .[id number] TONI Administration Lactulose 20 gm 10/11/16 10:00 10/11/16 18:18 Enulose PO 20 gm TID TONI Administration Lorazepam 2 mg 10/02/16 21:28 10/07/16 05:33 Ativan IVP 2 mg Q2H PRN Administration Agitation Protocol Metoclopramide HCl 10 mg 10/09/16 16:56 10/09/16 17:13 Reglan IVP 10 mg Q6H PRN Administration Other Midodrine 5 mg 10/09/16 10:00 10/11/16 18:19 Proamatine PO 5 mg TID TONI Administration Pantoprazole Sodium 40 mg 10/03/16 10:00 10/11/16 09:12 Protonix Inj IVP 40 mg DAILY TONI Administration Rifaximin 550 mg 10/05/16 10:00 10/11/16 17:00 Xifaxan PO 550 mg BID TONI Administration Protocol Thiamine HCl 100 mg 10/03/16 10:00 10/11/16 09:12 Vitamin B1 Tab PO 100 mg DAILY TONI Administration Vancomycin HCl 125 mg 10/03/16 11:00 10/12/16 04:56 Vancocin 25 Mg/Ml (Oral Use) PO 125 mg Q6H TONI Administration Protocol Vitamin A 1 ea 10/03/16 10:00 10/11/16 09:12 Vitamin A & D Oint Ud Foilpak TOP 1 ea DAILY TONI Administration Vitamin B Complex/Vit C/Folic Acid 1 tab 10/03/16 08:00 10/11/16 09:12 Nephro-Mariann PO 1 tab 0800 TONI Administration - Patient Studies Lab Studies: Microbiology Studies 10/08/16 14:05 Blood Culture - Preliminary Blood NO GROWTH AFTER 3 DAYS 10/08/16 13:50 Blood Culture - Preliminary Blood NO GROWTH AFTER 3 DAYS Lab Studies 09/06/17 09/03/17 09/02/17 Range/Units 06:00 06:00 15:00 Procalcitonin 1.06 H (0.19-0.49) NG/ML Rheumatoid Factor IgG (<=6) U Rheumatoid Factor IgA (<=6) U Rheumatoid Factor IgM (<=6) U PEEWEE Screen Negative (Negative) PEEWEE Titer TEST NOT PERFORMED PEEWEE Titer 2 TEST NOT PERFORMED PEEWEE Pattern TEST NOT PERFORMED PEEWEE Pattern 2 TEST NOT PERFORMED HCV RNA Qual (TMA) Detected H 10/07/16 Range/Units 14:17 Procalcitonin (0.19-0.49) NG/ML Rheumatoid Factor IgG <5 (<=6) U Rheumatoid Factor IgA <5 (<=6) U Rheumatoid Factor IgM 11 H (<=6) U PEEWEE Screen (Negative) PEEWEE Titer PEEWEE Titer 2 PEEWEE Pattern PEEWEE Pattern 2 HCV RNA Qual (TMA) Laboratory Results - last 24 hr 10/07/16 10/07/16 10/08/16 14:17 15:00 06:00 Procalcitonin Rheumatoid Factor IgG <5 Rheumatoid Factor IgA <5 Rheumatoid Factor IgM 11 H PEEWEE Screen Negative PEEWEE Titer TEST NOT PERFORMED PEEWEE Titer 2 TEST NOT PERFORMED PEEWEE Pattern TEST NOT PERFORMED PEEWEE Pattern 2 TEST NOT PERFORMED HCV RNA Qual (TMA) Detected H 10/11/16 06:00 Procalcitonin 1.06 H Rheumatoid Factor IgG Rheumatoid Factor IgA Rheumatoid Factor IgM PEEWEE Screen PEEWEE Titer PEEWEE Titer 2 PEEWEE Pattern PEEWEE Pattern 2 HCV RNA Qual (TMA) Fingerstick Blood Sugar Results: 105 Review of Systems - Review of Systems Review of Systems: Please refer to [facility] Critical Care Progress Note - Ventilator Checklist Head of Bed 30 Degrees: Yes PUD Prophalyxis: Yes DVT Prophylaxis: Yes - Vent Settings MODE:: PRVC TIDAL VOLUME:: 400 RESP RATE:: 26 FIO2:: 40 PEEP:: 5 - Extremities/Vascular Does the Patient have a Central Venous Catheter?: No Assessment/Plan - Assessment and Plan (Free Text) Assessment: 56 year old male with an initial presentation of AMS in the setting of persistent hypokalemia and alcohol withdrawal, which resolved. Patient was then intubated after he was found to be in hypercapnic respiratory failure and subsequently became hemodynamically unstable requiring dual vasopressor support. His presentation is consistent with distributive shock likely from either acute decompensated chronic liver failure or sepsis from C. Diff colitis , with multiorgan dysfunction syndrome including renal failure, encephalopathy and respiratory failure. Patient is no longer requiring vasopressin or levophed for hemodynamic support but is on midodrine. Patient is currently unresponsive to verbal or tactile stimuli off of sedation. Currently patient is experiencing new onset fevers to 101.7 overnight. Plan: Neuro: -CT head showed on 10/02 no acute findings in the brain and no acute hemorrhages or infarcts, age related cortical atrophy and ventriculomegaly -Repeat CT head done on 10/11 showed no acute intracranial pathology. -Currently intubated with no sedation for 60 hours -Ammonia at 42 -Continue Lactulose 20mg TID -Continue Ativan 2mg IVP Q2H PRN for symptoms of alcohol withdrawal -Continue Thiamine, Folic Acid and MV supplementation Pulm: Mechanical ventilation settings currently at: FiO2-40 PEEP-5 RR-26 Tidal Volume-400 -Chest X-Ray on 10/11 showed no active disease with ET and OG tube unchanged grossly -Will continue protective lung ventilator strategy -Continue Duonebs 3ml IH [id number] for wheezing Cardio: -EKG done on 10/05 shows sinus tachycardia at a rate of 106 and low voltage QRS with a non-specific t-wave abnormality -ECHO done on 10/10 showed LVEF of 55% with poor visualization of the valvular structures due to poor ECHO window and to consider MARILUZ if clinically indicated -Continue midodrine 5mg PO TID -Cardiology consulted, appreciate all recommendations GI: -CT abdomen/pelvis done on 10/04 showed possible sigmoid colitis, mild-to- moderate abdominal and pelvic ascites, free intrarenal gas or definite bowel obstruction, and hepatosplenomegaly again identified as well as diffuse fatty infiltration of liver -Approximately 2.5L of fluid removed via paracentesis on 10/05 with appropriate albumin resuscitation provided -Ascites predominantly lymphocytic and cytology showing no malignancy -Continue Vancomycin 125mg PO Q6H for C. Difficile, per ID -AST/ALT at 58/33 with T. Bili at 2.4, currently downtrending -Continue Lactulose 20mg TID started -Continue Rifaximin 550mg PO BID for hepatic encephalopathy -Continue with Vital AF tube feedings at 25ml/hr and increase by 10ml/hr as tolerated to a maximum rate of 80mls/hr -Continue Reglan 10mg IVP Q6H PRN for residual tube feeding -Rectal tube in place and currently draining 1800cc over the past 24 hours -GI consulted, all recommendations appreciated Renal: -BUN/Creatinine at 90/3.6, representing acute renal failure but currently downtrending -Urine total protein at 897 and Urine Microalbumin >950 -Vyas catheter in place and draining 1675cc of dariela urine over the past 24 hours -Potassium at 3.3 today and was replenished with two 10ml K-Riders IV -Will continue to replete calcium, magnesium, phosphorus and potassium as needed -Will continue to monitor with serial CMP's, magnesium and phosphorous levels -Family stating that patient would not have wanted dialysis in this situation -Nephrology consulted, all recommendations appreciated Heme/Onc: -H/H at 9.5/29.5 -Platelets decreased at 29 -Will continue to monitor with serial CBC's ID: -Currently on Micafungin 100mg IV daily (day 5), Merrem 250mg IVPB Q12 (day 9), and Vancomycin 125mg PO Q6 (day 10 of PO/day 14 overall) -Febrile overnight to 101.7 and given one dose of PRN Tylenol -Blood cultures negative for 24 hours -UA, urine and fungal cultures pending -Previous blood, sputum and urine cultures growing tom albicans -C. Diff antigen positive and toxin negative -MRSA screen negative -Procal downtrending at 1.06 from 4.51 -Continue Tylenol 320mg (Liquid) PO Q4 PRN for fever over 100.4 -ID consulted, all recommendations appreciated Endocrine: -Will maintain euglycemia with blood glucose between 140 and 180 Lines: -Continue all peripheral lines GI Prophylaxis: Protonix DVT Prophylaxis: SCD's Disposition: Patient off of sedation and intubated with minimal response to painful stimuli only, overbreathing the ventilator, with intact gag reflex, HI and negative corneal reflex. Overall prognosis is poor. Daughter is updated on patients clinical condition daily. ICU team plans to discuss disposition with family today, 10/12. Patient seen and case discussed with attending, Dr. Hinojosa. - Date & Time Date: 10/12/16 Time: 07:19 <Otto Hinojosa - Last Filed: 10/12/16 15:00> CCU Objective - Vital Signs / Intake & Output Vital Signs (Last 4 hours): Vital Signs Temp Pulse Pulse Ox 10/12/16 11:00 100.2 F H 97 H 96 Intake and Output (Last 8hrs): Intake & Output 10/11/16 10/12/16 10/12/16 22:59 06:59 14:59 Intake Total 850 1600 Output Total 1750 900 Balance -900 700 Intake: IV 400 900 Right Forearm 400 Right Upper arm 900 Tube Feeding 250 600 Other 200 100 Output: Urine 750 500 Urethral (Vyas) 750 500 Stool 1000 400 Other: Voiding Method Indwelling Catheter Indwelling Catheter - Medications Active Medications: Active Medications Generic Name Dose Route Start Last Admin Trade Name Freq PRN Reason Stop Dose Admin Acetaminophen 320 mg 10/03/16 07:45 10/11/16 23:59 Tylenol 160mg/5ml Oral Soln PO 320 mg Q4 PRN Administration Fever >100.4 F Albuterol/Ipratropium 3 ml 10/05/16 08:00 10/12/16 13:23 Duoneb 3 Mg/0.5 Mg (3 Ml) Ud IH 3 ml [id number] TONI Administration Artificial Tears 1 gm 10/10/16 18:00 10/12/16 11:53 Artificial Tears Opht Oint OU 1 gm Q6 TONI Administration Folic Acid 1 mg 10/03/16 10:00 10/12/16 10:19 Folic Acid PO 1 mg DAILY TONI Administration Micafungin Sodium 100 mg/ 100 mls @ 100 mls/hr 10/08/16 10:00 10/12/16 10:19 Sodium Chloride IV 10/17/16 10:01 100 mls/hr DAILY TONI Administration Protocol Sodium Chloride 1,000 mls @ 80 mls/hr 10/08/16 12:15 10/09/16 13:00 Sodium Chloride 0.45% IV Not Given .[id number] TONI Meropenem 250 mg/ Sodium 100 mls @ 100 mls/hr 10/08/16 13:30 10/12/16 14:29 Chloride IVPB 10/17/16 13:31 100 mls/hr Q12H TONI Administration Protocol Sodium Bicarbonate 100 meq/ 1,100 mls @ 75 mls/hr 10/11/16 13:00 10/11/16 19: 47 Dextrose IV 75 mls/hr .[id number] TONI Administration Lactulose 20 gm 10/11/16 10:00 10/12/16 14:17 Enulose PO 20 gm TID TONI Administration Lorazepam 2 mg 10/02/16 21:28 10/07/16 05:33 Ativan IVP 2 mg Q2H PRN Administration Agitation Protocol Metoclopramide HCl 10 mg 10/09/16 16:56 10/09/16 17:13 Reglan IVP 10 mg Q6H PRN Administration Other Midodrine 5 mg 10/09/16 10:00 10/12/16 14:17 Proamatine PO 5 mg TID TONI Administration Pantoprazole Sodium 40 mg 10/03/16 10:00 10/12/16 10:17 Protonix Inj IVP 40 mg DAILY TONI Administration Rifaximin 550 mg 10/05/16 10:00 10/12/16 10:19 Xifaxan PO 550 mg BID TONI Administration Protocol Thiamine HCl 100 mg 10/03/16 10:00 10/12/16 10:19 Vitamin B1 Tab PO 100 mg DAILY TONI Administration Vancomycin HCl 125 mg 10/03/16 11:00 10/12/16 10:20 Vancocin 25 Mg/Ml (Oral Use) PO 125 mg Q6H TONI Administration Protocol Vitamin A 1 ea 10/03/16 10:00 10/12/16 10:19 Vitamin A & D Oint Ud Foilpak TOP 1 ea DAILY TONI Administration Vitamin B Complex/Vit C/Folic Acid 1 tab 10/03/16 08:00 10/12/16 08:06 Nephro-Mariann PO 1 tab 0800 TONI Administration - Patient Studies Lab Studies: Microbiology Studies 10/08/16 14:05 Blood Culture - Preliminary Blood NO GROWTH AFTER 4 DAYS 10/08/16 13:50 Blood Culture - Preliminary Blood NO GROWTH AFTER 4 DAYS 10/11/16 07:40 Blood Culture - Preliminary Blood-Venous NO GROWTH AFTER 24 HOURS 10/11/16 07:10 Blood Culture - Preliminary Blood-Venous NO GROWTH AFTER 24 HOURS Lab Studies 10/12/16 10/12/16 10/12/16 Range/Units 09:00 09:00 09:00 WBC 6.8 (4.5-11.0) 10^3/ul RBC 2.98 L (3.5-6.1) 10^6/uL Hgb 9.5 L (14.0-18.0) g/dL Hct 29.5 L (42.0-52.0) % MCV 99.0 (80.0-105.0) fl MCH 31.9 (25.0-35.0) pg MCHC 32.2 (31.0-37.0) g/dl RDW 15.8 H (11.5-14.5) % Plt Count 29 L* (120.0-450.0) 10^3/uL MPV 12.5 H (7.0-11.0) fl Gran % 72.5 H (50.0-68.0) % Lymph % (Auto) 22.8 (22.0-35.0) % [place] % (Auto) 4.3 (1.0-6.0) % Eos % (Auto) 0.3 L (1.5-5.0) % Baso % (Auto) 0.1 (0.0-3.0) % Gran # 4.94 (1.4-6.5) Lymph # 1.6 (1.2-3.4) [place] # 0.3 (0.1-0.6) Eos # 0.0 (0.0-0.7) Baso # 0.01 (0.0-2.0) K/mm3 Platelet Evaluation Low (NORMAL) Sodium 145 (132-148) mmol/L Potassium 3.3 L (3.6-5.0) mmol/L Chloride 113 H (98-107) mmol/L Carbon Dioxide 21 (21-33) mmol/L Anion Gap 14 (10-20) BUN 90 H (7-21) mg/dL Creatinine 3.6 H (0.5-1.4) mg/dL Est GFR ( Amer) 21 Est GFR (Non-Af Amer) 18 Random Glucose 113 H (70-110) mg/dL Calcium 7.8 L (8.4-10.5) mg/dL Total Bilirubin 2.4 H (0.2-1.3) mg/dL AST 58 (17-59) U/L ALT 33 (7-56) U/L Alkaline Phosphatase 89 (38-126) U/L Ammonia 42 H (9-33) umol/L Total Protein 4.9 L (5.8-8.3) g/dL Albumin 2.3 L (3.0-4.8) g/dL Globulin 2.5 gm/dL Albumin/Globulin Ratio 0.9 L (1.1-1.8) HCV RNA Qual (TMA) 10/08/16 Range/Units 06:00 WBC (4.5-11.0) 10^3/ul RBC (3.5-6.1) 10^6/uL Hgb (14.0-18.0) g/dL Hct (42.0-52.0) % MCV (80.0-105.0) fl MCH (25.0-35.0) pg MCHC (31.0-37.0) g/dl RDW (11.5-14.5) % Plt Count (120.0-450.0) 10^3/uL MPV (7.0-11.0) fl Gran % (50.0-68.0) % Lymph % (Auto) (22.0-35.0) % [place] % (Auto) (1.0-6.0) % Eos % (Auto) (1.5-5.0) % Baso % (Auto) (0.0-3.0) % Gran # (1.4-6.5) Lymph # (1.2-3.4) [place] # (0.1-0.6) Eos # (0.0-0.7) Baso # (0.0-2.0) K/mm3 Platelet Evaluation (NORMAL) Sodium (132-148) mmol/L Potassium (3.6-5.0) mmol/L Chloride (98-107) mmol/L Carbon Dioxide (21-33) mmol/L Anion Gap (10-20) BUN (7-21) mg/dL Creatinine (0.5-1.4) mg/dL Est GFR ( Amer) Est GFR (Non-Af Amer) Random Glucose (70-110) mg/dL Calcium (8.4-10.5) mg/dL Total Bilirubin (0.2-1.3) mg/dL AST (17-59) U/L ALT (7-56) U/L Alkaline Phosphatase (38-126) U/L Ammonia (9-33) umol/L Total Protein (5.8-8.3) g/dL Albumin (3.0-4.8) g/dL Globulin gm/dL Albumin/Globulin Ratio (1.1-1.8) HCV RNA Qual (TMA) Detected H Laboratory Results - last 24 hr 10/08/16 10/12/16 10/12/16 06:00 09:00 09:00 WBC 6.8 RBC 2.98 L Hgb 9.5 L Hct 29.5 L MCV 99.0 MCH 31.9 MCHC 32.2 RDW 15.8 H Plt Count 29 L* MPV 12.5 H Gran % 72.5 H Lymph % (Auto) 22.8 [place] % (Auto) 4.3 Eos % (Auto) 0.3 L Baso % (Auto) 0.1 Gran # 4.94 Lymph # 1.6 [place] # 0.3 Eos # 0.0 Baso # 0.01 Platelet Evaluation Low Sodium 145 Potassium 3.3 L Chloride 113 H Carbon Dioxide 21 Anion Gap 14 BUN 90 H Creatinine 3.6 H Est GFR ( Amer) 21 Est GFR (Non-Af Amer) 18 Random Glucose 113 H Calcium 7.8 L Total Bilirubin 2.4 H AST 58 ALT 33 Alkaline Phosphatase 89 Ammonia Total Protein 4.9 L Albumin 2.3 L Globulin 2.5 Albumin/Globulin Ratio 0.9 L HCV RNA Qual (TMA) Detected H 10/12/16 09:00 WBC RBC Hgb Hct MCV MCH MCHC RDW Plt Count MPV Gran % Lymph % (Auto) [place] % (Auto) Eos % (Auto) Baso % (Auto) Gran # Lymph # [place] # Eos # Baso # Platelet Evaluation Sodium Potassium Chloride Carbon Dioxide Anion Gap BUN Creatinine Est GFR ( Amer) Est GFR (Non-Af Amer) Random Glucose Calcium Total Bilirubin AST ALT Alkaline Phosphatase Ammonia 42 H Total Protein Albumin Globulin Albumin/Globulin Ratio HCV RNA Qual (TMA) Attending/Attestation - Attestation I have personally seen and examined this patient.: Yes I have fully participated in the care of the patient.: Yes I have reviewed all pertinent clinical information: Yes Notes (Text): 10/12/16 14:54 56 yo with VDRF, slowly resolving, now on PS 10/5, fi02 40 percent. altered mental status. likely combination of toxic metabolic syndrome and hepatic encephlaopthy. Need to rule out non-convulsive status--EEG ordered and neuro consult requested. cont abx, antifungals, trend procalcitonin. Will speak with pts family as to advanced directives. HOB>35, cont lactulose/rifaximine. dvt/gi prophylaxis ccm time 40 min
[2016-10-12] MEDS: Multivitamin Vitamin B Complex (Nephro-Vite) Tab PO SCH (08:06)
[2016-10-12 09:19] LABS: BASO # 0.01 K/mm3 (0.0-2.0); BASO % 0.1 % (0.0-3.0); EOS % 0.3 % (1.5-5.0); GRAN # 4.94 (1.4-6.5); GRAN % 72.5 % (50.0-68.0); HEMATOCRIT 29.5 % (42.0-52.0); LYMPH # 1.6 (1.2-3.4); LYMPH % 22.8 % (22.0-35.0); MEAN CORPUSCULAR HEMOGLOBIN 31.9 pg (25.0-35.0); MEAN CORPUSCULAR HGB CONC 32.2 g/dl (31.0-37.0); MEAN PLATELET VOLUME 12.5 fl (7.0-11.0); MONO # 0.3 (0.1-0.6); MONO % 4.3 % (1.0-6.0); RED CELL DISTRIBUTION WIDTH 15.8 % (11.5-14.5); WHITE BLOOD COUNT 6.8 10^3/ul (4.5-11.0)
[2016-10-12 09:26] LABS: ALB/GLOB RATIO 0.9 (1.1-1.8); BILIRUBIN,TOTAL 2.4 mg/dL (0.2-1.3); CALCIUM 7.8 mg/dL (8.4-10.5); POTASSIUM 3.3 mmol/L (3.6-5.0); TOTAL PROTEIN 4.9 g/dL (5.8-8.3)
[2016-10-12 09:29] LABS: PLATELET COUNT 29 10^3/uL (120.0-450.0)
[2016-10-12 09:30] LABS: PLATELET ESTIMATE LOW (NORMAL)
[2016-10-12] MEDS: Vitamins A & D Oint UD Foilpak TOP SCH (10:19)
[2016-10-12] MEDS: Micafungin 100 MG in Sodium Chloride 0.9% 100 ML IV SCH (10:19)
--- NOTE | 2016-10-12 13:59 | PN ---
DATE: 10/12/2016 This is a renal coverage for Dr. Mcnulty. SUBJECTIVE: The patient is intubated. PHYSICAL EXAMINATION: VITAL SIGNS: Temperature is 100.4, pulse of 99, blood pressure 113/60, and respirations 34. Total in is 3210 and total out is 3475. Urine output is 1675. GENERAL: The patient is lying in bed, flat, comfortable. HEENT: No oral lesion. Anicteric sclerae. Moist mucosa. NECK: No JVD, adenopathy, or thyromegaly. CARDIOVASCULAR: S1 and S2, regular. No murmurs, rubs, or gallops. LUNGS: Clear to auscultation bilaterally. No wheeze, rales, or rhonchi. ABDOMEN: Bowel sounds are positive, soft, nontender and nondistended. EXTREMITIES: no cyanosis, clubbing or edema. LABORATORY DATA: Creatinine is 3.8 and hemoglobin is 10.5. ASSESSMENT: 1. Acute kidney injury. 2. Thrombocytopenia. 3. Hypokalemia, improved. 4. Hypocalcemia, improved. 5. Fungemia/candidemia. 6. Hypercapnic respiratory failure, on ventilator. 7. Hepatitis C. 8. Cirrhosis. 9. Alcoholism. 10. Do not resuscitate/do not intubate. 11. Anemia, chronic and multifactorial. 12. Iron deficiency. 13. Proteinuria 3.3 g. PLAN: The patient is currently critically ill. He is intubated. He does have urine output. His creatinine has stabilized. Reviewing the patient's serology, he does have low C3 and C4. Ideally, he should have a biopsy to look at cause of his underlying acute kidney injury. His differential diagnosis is long, but does include hep C related kidney disease, cryoglobulinemia, membranoproliferative glomerulonephritis postinfectious, lupus, etc. The patient has thrombocytopenia, so biopsy is not possible. He is also on DNR and DNI. If he does get a biopsy and if it is one of these underlying issues, he most likely needs steroids, but this is also relatively contraindicated and given that he has fever and he is septic from candidemia. He may also have underlying bacterial infection given that his procalcitonin level was elevated few days ago. He also does have heme positive stool that may be causing the anemia. The patient has a significant amount of proteinuria by urine protein to creatinine ratio, he has about 3.3 g of proteinuria. He also has large blood indicating that he might have a glomerulonephritis. He is currently on lactulose for cirrhosis. He is on folic acid daily. He is receiving micafungin for his candidemia. He is on ProAmatine for his blood pressure/cirrhosis. He is also on the bicarb drip. The patient's bicarb is 20 and probably resuscitation with normal saline should be adequate. Another possibility in his differential is hepatorenal syndrome, but this is less likely given that his complement levels are low. His overall prognosis is poor. End-of-life planning with palliative care should be considered as well. His creatinine clearance remains less than 10. Please avoid nephrotoxic agents. This is a renal coverage for Dr. Mcnulty. Nick Maldonado MD
--- NOTE | 2016-10-12 14:32 | CP.PCM.PN ---
<Justo Torres - Last Filed: 10/12/16 16:03> Subjective - Date & Time of Evaluation Date of Evaluation: 10/12/16 Time of Evaluation: 07:30 - Subjective Subjective: Patient was seen and examined at bedside. Patient remains intubated at this time. Per nursing the patient did have a temperature of 101.7 overnight. The patient continue to be unresponsive to verbal or tactile stimuli. ROS unable to obtain due to the patients current intubation status. Objective - Vital Signs/Intake and Output Vital Signs (last 24 hours): Temp Pulse Resp BP Pulse Ox 100.2 F H 97 H 34 H 107/67 96 10/12/16 11:00 10/12/16 11:00 10/12/16 07:07 10/12/16 10:00 10/12/16 11:00 Intake and Output: 10/12/16 10/12/16 06:59 18:59 Intake Total 1600 Output Total 900 Balance 700 - Medications Medications: Current Medications Acetaminophen (Tylenol 160mg/5ml Oral Soln) 320 mg PO Q4 PRN PRN Reason: Fever >100.4 F Last Admin: 10/11/16 23:59 Dose: 320 mg Albuterol/Ipratropium (Duoneb 3 Mg/0.5 Mg (3 Ml) Ud) 3 ml IH [id number] [facility] [place] Last Admin: 10/12/16 13:23 Dose: 3 ml Artificial Tears (Artificial Tears Opht Oint) 1 gm OU Q6 [facility] [place] Last Admin: 10/12/16 11:53 Dose: 1 gm Folic Acid (Folic Acid) 1 mg PO DAILY [facility] [place] Last Admin: 10/12/16 10:19 Dose: 1 mg Micafungin Sodium 100 mg/ (Sodium Chloride) 100 mls @ 100 mls/hr IV DAILY [facility] [place] PRN Reason: Protocol Stop: 10/17/16 10:01 Last Admin: 10/12/16 10:19 Dose: 100 mls/hr Sodium Chloride (Sodium Chloride 0.45%) 1,000 mls @ 80 mls/hr IV .[id number] [facility] [place] Last Admin: 10/09/16 13:00 Dose: Not Given Meropenem 250 mg/ Sodium (Chloride) 100 mls @ 100 mls/hr IVPB Q12H [facility] PRN Reason: Protocol Stop: 10/17/16 13:31 Last Admin: 10/12/16 14:29 Dose: 100 mls/hr Sodium Bicarbonate 100 meq/ (Dextrose) 1,100 mls @ 75 mls/hr IV .[id number] [facility] Last Admin: 10/11/16 19:47 Dose: 75 mls/hr Lactulose (Enulose) 20 gm PO TID [facility]ONI Last Admin: 10/12/16 14:17 Dose: 20 gm Lorazepam (Ativan) 2 mg IVP Q2H PRN; Protocol PRN Reason: Agitation Last Admin: 10/07/16 05:33 Dose: 2 mg Metoclopramide HCl (Reglan) 10 mg IVP Q6H PRN PRN Reason: Other Last Admin: 10/09/16 17:13 Dose: 10 mg Midodrine (Proamatine) 5 mg PO TID [facility]ONI Last Admin: 10/12/16 14:17 Dose: 5 mg Pantoprazole Sodium (Protonix Inj) 40 mg IVP DAILY [facility] [place] Last Admin: 10/12/16 10:17 Dose: 40 mg Rifaximin (Xifaxan) 550 mg PO BID [facility] PRN Reason: Protocol Last Admin: 10/12/16 10:19 Dose: 550 mg Thiamine HCl (Vitamin B1 Tab) 100 mg PO DAILY [facility] Last Admin: 10/12/16 10:19 Dose: 100 mg Vancomycin HCl (Vancocin 25 Mg/Ml (Oral Use)) 125 mg PO Q6H [facility] PRN Reason: Protocol Last Admin: 10/12/16 10:20 Dose: 125 mg Vitamin A (Vitamin A & D Oint Ud Foilpak) 1 ea TOP DAILY [facility] [place] Last Admin: 10/12/16 10:19 Dose: 1 ea Vitamin B Complex/Vit C/Folic Acid (Nephro-Mariann) 1 tab PO 0800 [facility] Last Admin: 10/12/16 08:06 Dose: 1 tab - Labs Labs: 10/12/16 09:00 10/12/16 09:00 PT 16.1 Seconds (9.9-11.8) H 10/10/16 11:48 INR 1.49 (0.93-1.08) H 10/10/16 11:48 APTT 30.3 Seconds (23.7-30.8) 10/10/16 11:48 - Head Exam Head Exam: ATRAUMATIC, NORMAL INSPECTION, NORMOCEPHALIC - Eye Exam Eye Exam: EOMI, Normal appearance, PERRL Pupil Exam: NORMAL ACCOMODATION, PERRL - ENT Exam ENT Exam: Mucous Membranes Moist - Respiratory Exam Respiratory Exam: Clear to Ausculation Bilateral, NORMAL BREATHING PATTERN. absent: Rales, Rhonchi - Cardiovascular Exam Cardiovascular Exam: REGULAR RHYTHM, +S1, +S2 - GI/Abdominal Exam GI & Abdominal Exam: Soft, Normal Bowel Sounds. absent: Rigid, Tenderness - Exam Exam: Scrotal Swelling - Neurological Exam Neurological Exam: Altered Assessment and Plan - Assessment and Plan (Free Text) Assessment: Hypercapnic Respiratory Failure -Patient intubated on 10/05. Today: FiO2= 40%, RR=26, PEEP+5, and Tidal Volume + 400 ml, O2 saturation+96% -ABG: pCO2+47, pO2+73, pH+7.26 -Patient hypotension slightly improved to 113/73 and remains off pressors. -Cardio following -CXR shows no active pulmonary disease. -Continue to monitor vital signs. -Continue Duonebs 3ml IHQ6 HRESP for wheezing symptoms. Acute renal failure most likely secondary to glomerulonephritis -BUN 90(up from 82) and Creatinine is 3.6(down from 3.8). -Urine total protein-897 and Urine Microalbumin >950. -Nephrology consult note appreciated. -No acute indications for HD at this time. Urine output today increased to 400 ml( from 25). ICU team to speak with family today on disposition. -Nephrology consult note appreciate- Thrombocytopenia -Plt count now 29 (down from on 10/11/16). Continue to monitor plt count and consider tranfusion if patient drops below 20. -Patient currently has no active bleeds. Monitor for bleeding. EtOh Withdrawal -Continue Ativan 2mg IVP Q2H PRN for alcohol withdrawal symptoms. -Continue Thiamine, Folic acid and MV supplementation Ascites -s/p ascitic fluid removed on 10/05. -culture growth negative after 142 hours. Hepatic encephalopathy -Continue Rifaxamin, Lactulose Anemia -Stool occult blood positive on 10/05. -Hgb is 9.5 (down from 10.5) and Hct is 29.5 (down from 32.5). Patient is s/p 3 units leukocyte reduced PRBC's. Continue to monitor H/H levels with serial CBC 's. Consider Transfusion if Hgb falls below 7. Sepsis/Fungemia -Grew Kamille Albicans -Continue Micafungin (renal dosing) -Continue Merrem, Vancomycin C Diff infection. -Continue Vancomycin Hypokalemia -Potassium today 3.3. Patient was repleted with 2 10ml K Riders IV. Will continue to monitor electrolyte levels with serial cmp's. GI ppx -Continue Protonix DVT ppx. -continue SCD's <Petr Hartmann B - Last Filed: 10/22/16 14:28> Objective - Vital Signs/Intake and Output Vital Signs (last 24 hours): Temp Pulse Resp BP Pulse Ox 100.0 F H 105 H 24 108/82 72 L 10/13/16 18:00 10/13/16 18:00 10/13/16 04:00 10/13/16 18:00 10/13/16 18:00 Intake and Output: 10/13/16 10/13/16 06:59 18:59 Intake Total 995 1500 Output Total 2700 900 Balance -1705 600 - Medications Medications: Current Medications Albuterol/Ipratropium (Duoneb 3 Mg/0.5 Mg (3 Ml) Ud) 3 ml IH [id number] [facility] [place] Last Admin: 10/13/16 13:07 Dose: 3 ml Artificial Tears (Artificial Tears Opht Oint) 1 gm OU Q6 [facility] [place] Last Admin: 10/13/16 17:26 Dose: 1 gm Folic Acid (Folic Acid) 1 mg PO DAILY [facility] [place] Last Admin: 10/13/16 10:45 Dose: 1 mg Micafungin Sodium 100 mg/ (Sodium Chloride) 100 mls @ 100 mls/hr IV DAILY [facility] [place] PRN Reason: Protocol Stop: 10/17/16 10:01 Last Admin: 10/13/16 10:40 Dose: 100 mls/hr Meropenem 250 mg/ Sodium (Chloride) 100 mls @ 100 mls/hr IVPB Q12H [facility] PRN Reason: Protocol Stop: 10/17/16 13:31 Last Admin: 10/13/16 02:06 Dose: 100 mls/hr Sodium Chloride (Sodium Chloride 0.9%) 1,000 mls @ 75 mls/hr IV .[id number] [facility] [place] Last Admin: 10/13/16 08:30 Dose: 75 mls/hr Lactulose (Enulose) 20 gm PO TID [facility]ONI Last Admin: 10/13/16 17:26 Dose: 20 gm Lorazepam (Ativan) 2 mg IVP Q2H PRN; Protocol PRN Reason: Agitation Last Admin: 10/07/16 05:33 Dose: 2 mg Metoclopramide HCl (Reglan) 10 mg IVP Q6H PRN PRN Reason: Other Last Admin: 10/09/16 17:13 Dose: 10 mg Midodrine (Proamatine) 5 mg PO TID [facility]ON[facility] Last Admin: 10/13/16 17:26 Dose: 5 mg Pantoprazole Sodium (Protonix Inj) 40 mg IVP DAILY [facility] Last Admin: 10/13/16 10:42 Dose: 40 mg Rifaximin (Xifaxan) 550 mg PO BID [facility] PRN Reason: Protocol Last Admin: 10/13/16 17:26 Dose: 550 mg Thiamine HCl (Vitamin B1 Tab) 100 mg PO DAILY [facility] [place] Last Admin: 10/13/16 10:40 Dose: 100 mg Vancomycin HCl (Vancocin 25 Mg/Ml (Oral Use)) 125 mg PO Q6H [facility] PRN Reason: Protocol Last Admin: 10/13/16 10:42 Dose: 125 mg Vitamin A (Vitamin A & D Oint Ud Foilpak) 1 ea TOP DAILY [facility] [place] Last Admin: 10/13/16 10:43 Dose: 1 ea Vitamin B Complex/Vit C/Folic Acid (Nephro-Mariann) 1 tab PO 0800 [facility] Last Admin: 10/13/16 08:34 Dose: 1 tab - Labs Labs: 10/13/16 06:10 10/13/16 06:10 PT 16.1 Seconds (9.9-11.8) H 10/10/16 11:48 INR 1.49 (0.93-1.08) H 10/10/16 11:48 APTT 30.3 Seconds (23.7-30.8) 10/10/16 11:48 Attending/Attestation - Attestation I have personally seen and examined this patient.: Yes I have fully participated in the care of the patient.: Yes I have reviewed all pertinent clinical information, including history, physical exam and plan: Yes Notes (Text): I have seen and examined the patient at bedside. Agree with the above note with the following additions/ exceptions: Briefly this is 56 year old male with history of alcohol abuse, cirrhosis who was admitted with AMS probably due to distributive shock secondary to sepsis vs hepatic encephalopathy. He remains intubated and is currently off of sedation however there is no spontaneous movement. Pupils are reactive to light however there is no corneal reflex. He was also found to have oliguric acute renal failure, hematuria, hypocomplimentenemia and proteinuria probably due to acute glomerulonephritis. HRS less likely due to proteinuria and high JOSELITO. No need for emergency hemodialysis. monitor closely. Continue rifaximin for hapatic encephalopathy. 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 Continue po vanco for cdiff. Patient is DNR/DNI. will make decisions about further care after discussing with family members.Prognosis guarded. Dr Petr Hartmann
[2016-10-12] MEDS: Sodium Bicarbonate 8.4% 100 MEQ in Dextrose 5% In Water 1,000 ML IV SCH (17:23)
--- NOTE | 2016-10-12 21:02 | PN ---
DATE: 10/12/2016 SUBJECTIVE: The patient is in bed. He was seen earlier this morning in the ICU, intubated on a ventilator and with low-grade fevers. PHYSICAL EXAMINATION: VITAL SIGNS: Temperature is 100.2 and blood pressure is 107/60, respiratory rate on the vent, heart rate of 97. HEENT: Unremarkable. NECK: Supple. LUNGS: Decreased breath sounds. HEART: Normal S1 and S2. ABDOMEN: Soft and nontender. LABORATORY DATA: Reveals a white count of 6.8, hemoglobin of 9, platelets of 29 and chemistry reveals a BUN of 90, creatinine of 3.6 and procalcitonin is 1.0. Urinalysis is noted. Serology is noted. Microbiology reveals Mellisa albicans in the blood. Repeat blood cultures are negative and the urine culture is also yeast. Review of orders reveals the patient to be on meropenem, micafungin and p.o. vancomycin and IV vancomycin given intermittently. ASSESSMENT AND PLAN: He is a 56-year-old male, intubated on the ventilator with severe sepsis, respiratory failure, on vent, respiratory acidosis, acute renal failure on top of chronic renal failure with Mellisa albicans, fungemia and healthcare-associated pneumonia on top of colitis and spontaneous bacterial peritonitis in a patient with liver cirrhosis, alcohol abuse and on intermittent vancomycin, day #8 of meropenem, also day #10 of p.o. vancomycin, on Mycamine with repeat blood cultures negative noted as he uses fluconazole and the patient with hepatic failure and liver toxicity and overall prognosis is quite poor. Should have an eye examination to rule out endophthalmitis because of the fungemia and we will follow closely with you. Case discussed with earlier today. Nehemiah Aguilar MD
[2016-10-13] MEDS: Mineral Oil/Petrolatum Opht Oint(3.5 gm) OU SCH ×4 (01:00→17:26)
[2016-10-13] MEDS: Albuterol-Ipratrop 3 mg / 0.5 (3 ml) UD IH SCH ×4 (04:52→19:42)
[2016-10-13] MEDS: Vancomycin 25 MG/ML PO SCH ×4 (05:05→22:39)
[2016-10-13 06:35] LABS: BASO # 0.01 K/mm3 (0.0-2.0); BASO % 0.1 % (0.0-3.0); EOS % 0.2 % (1.5-5.0); GRAN # 6.52 (1.4-6.5); GRAN % 78.9 % (50.0-68.0); HEMATOCRIT 32.4 % (42.0-52.0); LYMPH # 1.4 (1.2-3.4); LYMPH % 16.8 % (22.0-35.0); MEAN CELL VOLUME 101.6 fl (80.0-105.0); MEAN CORPUSCULAR HGB CONC 31.5 g/dl (31.0-37.0); MEAN PLATELET VOLUME 9.4 fl (7.0-11.0); MONO # 0.3 (0.1-0.6); RED CELL DISTRIBUTION WIDTH 15.8 % (11.5-14.5); WHITE BLOOD COUNT 8.3 10^3/ul (4.5-11.0)
[2016-10-13 06:48] LABS: ALB/GLOB RATIO 0.9 (1.1-1.8); BILIRUBIN,TOTAL 2.4 mg/dL (0.2-1.3); CALCIUM 7.5 mg/dL (8.4-10.5); POTASSIUM 3.5 mmol/L (3.6-5.0); TOTAL PROTEIN 4.9 g/dL (5.8-8.3)
[2016-10-13] MEDS: Sodium Chloride 0.9% 1,000 ML IV SCH (08:30)
[2016-10-13] MEDS: Multivitamin Vitamin B Complex (Nephro-Vite) Tab PO SCH (08:34)
--- NOTE | 2016-10-13 10:13 | CP.PCM.PN ---
Subjective - Date & Time of Evaluation Date of Evaluation: 10/13/16 Time of Evaluation: 09:00 - Subjective Subjective: Patient continues to be on the ventilator, but on a weaning trial. No fevers overnight, awake but not responsive. Objective - Vital Signs/Intake and Output Vital Signs (last 24 hours): Temp Pulse Resp BP Pulse Ox 98.2 F 89 24 108/63 84 L 10/13/16 06:00 10/13/16 06:00 10/13/16 04:00 10/13/16 05:00 10/13/16 06:00 Intake and Output: 10/12/16 10/13/16 18:59 06:59 Intake Total 995 995 Output Total 1700 2700 Balance -705 -1705 - Medications Medications: Current Medications Acetaminophen (Tylenol 160mg/5ml Oral Soln) 320 mg PO Q4 PRN PRN Reason: Fever >100.4 F Last Admin: 10/11/16 23:59 Dose: 320 mg Albuterol/Ipratropium (Duoneb 3 Mg/0.5 Mg (3 Ml) Ud) 3 ml IH [id number] [facility] Last Admin: 10/13/16 04:52 Dose: 3 ml Artificial Tears (Artificial Tears Opht Oint) 1 gm OU Q6 [facility] Last Admin: 10/13/16 05:05 Dose: 1 gm Folic Acid (Folic Acid) 1 mg PO DAILY [facility] Last Admin: 10/12/16 10:19 Dose: 1 mg Micafungin Sodium 100 mg/ (Sodium Chloride) 100 mls @ 100 mls/hr IV DAILY [facility] PRN Reason: Protocol Stop: 10/17/16 10:01 Last Admin: 10/12/16 10:19 Dose: 100 mls/hr Sodium Chloride (Sodium Chloride 0.45%) 1,000 mls @ 80 mls/hr IV .[id number] [facility] Last Admin: 10/09/16 13:00 Dose: Not Given Meropenem 250 mg/ Sodium (Chloride) 100 mls @ 100 mls/hr IVPB Q12H [facility] PRN Reason: Protocol Stop: 10/17/16 13:31 Last Admin: 10/13/16 02:06 Dose: 100 mls/hr Sodium Bicarbonate 100 meq/ (Dextrose) 1,100 mls @ 75 mls/hr IV .[id number] [facility] Last Admin: 10/12/16 17:23 Dose: 75 mls/hr Lactulose (Enulose) 20 gm PO TID [facility]ON[facility] Last Admin: 10/12/16 17:22 Dose: 20 gm Lorazepam (Ativan) 2 mg IVP Q2H PRN; Protocol PRN Reason: Agitation Last Admin: 10/07/16 05:33 Dose: 2 mg Metoclopramide HCl (Reglan) 10 mg IVP Q6H PRN PRN Reason: Other Last Admin: 10/09/16 17:13 Dose: 10 mg Midodrine (Proamatine) 5 mg PO TID [facility]ON[facility] Last Admin: 10/12/16 17:22 Dose: 5 mg Pantoprazole Sodium (Protonix Inj) 40 mg IVP DAILY [facility] Last Admin: 10/12/16 10:17 Dose: 40 mg Rifaximin (Xifaxan) 550 mg PO BID [facility] PRN Reason: Protocol Last Admin: 10/12/16 17:22 Dose: 550 mg Thiamine HCl (Vitamin B1 Tab) 100 mg PO DAILY [facility] Last Admin: 10/12/16 10:19 Dose: 100 mg Vancomycin HCl (Vancocin 25 Mg/Ml (Oral Use)) 125 mg PO Q6H [facility] PRN Reason: Protocol Last Admin: 10/13/16 05:05 Dose: 125 mg Vitamin A (Vitamin A & D Oint Ud Foilpak) 1 ea TOP DAILY [facility] Last Admin: 10/12/16 10:19 Dose: 1 ea Vitamin B Complex/Vit C/Folic Acid (Nephro-Mariann) 1 tab PO 0800 [facility] Last Admin: 10/12/16 08:06 Dose: 1 tab - Labs Labs: 10/12/16 09:00 10/12/16 09:00 PT 16.1 Seconds (9.9-11.8) H 10/10/16 11:48 INR 1.49 (0.93-1.08) H 10/10/16 11:48 APTT 30.3 Seconds (23.7-30.8) 10/10/16 11:48 - Constitutional Appears: Other (Still on the ventilator, on a weaning trial) - Head Exam Head Exam: NORMAL INSPECTION - Eye Exam Eye Exam: Scleral icterus - ENT Exam Additional comments: ET tube in place - Neck Exam Neck Exam: absent: Meningismus - Respiratory Exam Respiratory Exam: Decreased Breath Sounds - Cardiovascular Exam Cardiovascular Exam: +S1, +S2 - GI/Abdominal Exam GI & Abdominal Exam: Soft. absent: Tenderness Assessment and Plan - Assessment and Plan (Free Text) Plan: Assessment severe sepsis with ventilator-dependent respiratory failure, respiratory acidosis and worsening acute renal failure (slowly improving )probably due to C. albicans fungemia and healthcare-associated pneumonia on top of colitis or spontaneous bacterial peritonitis in this patient with liver cirrhosis probably from alcohol abuse; S/P paracentesis; initially presented with delerium tremens ; patient has new onset fevers, need to rule out new onset sepsis chronic alcohol abuse with history of liver cirrhosis and esophageal varices significant smoking history Plan continue intermittent Vancomycin IV and Merrem (day 9) - target 10 days of therapy, PO Vancomycin (day 11) -target 10-14 days of therapy and Mycamine ( repeat blood cx on 10/08/2016 are negative - we are cautious not to use Fluconazole in this patient with worsening hepatic failure, although Mycamine has also been implicated with some liver toxicity as well but less reports compared to Fluconazole) - should have at least 2 weeks of antifungal therapy - repeat cx from 10/11 are negative will continue to monitor clinically patient continues to be in critical condition and overall prognosis is poor - patient has been made DNR
--- NOTE | 2016-10-13 10:36 | CP.CCUPN ---
<KENDY CERNA - Last Filed: 10/13/16 10:26> CCU Subjective - Physician Review Subjective (Free Text): 10/13/16 10:38 Patient was seen and assessed at bedside. Patient intubated on PS/CPAP and unsedated, however patient continues to be unresponsive to verbal, tactile and painful stimuli. Per chart review, no acute events were reported overnight. ROS unobtainable due to patients clinical condition. CCU Objective - Vital Signs / Intake & Output Intake and Output (Last 8hrs): Intake & Output 10/12/16 10/13/16 10/13/16 22:59 06:59 14:59 Intake Total 995 Output Total 2700 Balance -1705 Intake: IV 595 Right Forearm 595 Oral 400 Output: Drainage 800 Paracentesis 800 Urine 600 Urethral (Vyas) 600 Stool 1100 Other 200 Other: Voiding Method Indwelling Catheter - Physical Exam Head: Positive for: Atraumatic, Normocephalic Pupils: Positive for: PERRL, Sluggish Extroacular Muscles: Positive for: EOMI Conjunctiva: Positive for: Normal Ears: Positive for: Normal Mouth: Positive for: Moist Mucous Membranes, Other (ET and OG tube in position in oral cavity) Nose (External): Positive for: Atraumatic Neck: Positive for: Trachea Midline. Negative for: Lymphadenopathy Respiratory/Chest: Positive for: Clear to Auscultation, Good Air Exchange, Tachypneic, Other (Mechanical ventilation). Negative for: Respiratory Distress , Accessory Muscle Use, Wheezes, Decreased Breath Sounds, Retracting, Rhonchi Cardiovascular: Positive for: Regular Rate and Rhythm, Normal S1, S2. Negative for: Murmurs Abdomen: Positive for: Normal Bowel Sounds, Other (Paracentesis site with sutures, no signs of infection, dressing clean, dry and intact; shifting dullness). Negative for: Tenderness, Distention, Peritoneal Signs Genitourinary Male: Positive for: Testicle Swelling, Other (Vyas in place) Back: Positive for: Normal Inspection Upper Extremity: Positive for: Edema (1+ pitting edema B/L UE). Negative for: Normal Inspection (Multiple areas of ecchymoses), Cyanosis Lower Extremity: Positive for: Edema (2+ Pitting edema B/L up to thighs). Negative for: Normal Inspection Neurological: Positive for: Other (Gag and corneal reflex intact; ability to track motion with eyes intact). Negative for: GCS=15 (GCS of 3T), CN II-XII Intact, Speech Normal Skin: Positive for: Warm, Dry, Other (Areas of serous weeping from multiple areas of skin). Negative for: Rashes, Normal Color (multiple ecchymoses over UE B/L) Psychiatric: Negative for: Alert (sedated, arousable to tactile stimuli), Oriented x 3, Normal Insight, Normal Concentration - Medications Active Medications: Active Medications Generic Name Dose Route Start Last Admin Trade Name Freq PRN Reason Stop Dose Admin Albuterol/Ipratropium 3 ml 10/05/16 08:00 10/13/16 08:12 Duoneb 3 Mg/0.5 Mg (3 Ml) Ud IH 3 ml [id number] TONI Administration Artificial Tears 1 gm 10/10/16 18:00 10/13/16 05:05 Artificial Tears Opht Oint OU 1 gm Q6 TONI Administration Folic Acid 1 mg 10/03/16 10:00 10/12/16 10:19 Folic Acid PO 1 mg DAILY TONI Administration Micafungin Sodium 100 mg/ 100 mls @ 100 mls/hr 10/08/16 10:00 10/12/16 10:19 Sodium Chloride IV 10/17/16 10:01 100 mls/hr DAILY TONI Administration Protocol Meropenem 250 mg/ Sodium 100 mls @ 100 mls/hr 10/08/16 13:30 10/13/16 02:06 Chloride IVPB 10/17/16 13:31 100 mls/hr Q12H TONI Administration Protocol Sodium Chloride 1,000 mls @ 75 mls/hr 10/13/16 08:15 10/13/16 08:30 Sodium Chloride 0.9% IV 75 mls/hr .[id number] TONI Administration Lactulose 20 gm 10/11/16 10:00 10/12/16 17:22 Enulose PO 20 gm TID TONI Administration Lorazepam 2 mg 10/02/16 21:28 10/07/16 05:33 Ativan IVP 2 mg Q2H PRN Administration Agitation Protocol Metoclopramide HCl 10 mg 10/09/16 16:56 10/09/16 17:13 Reglan IVP 10 mg Q6H PRN Administration Other Midodrine 5 mg 10/09/16 10:00 10/12/16 17:22 Proamatine PO 5 mg TID TONI Administration Pantoprazole Sodium 40 mg 10/03/16 10:00 10/12/16 10:17 Protonix Inj IVP 40 mg DAILY TONI Administration Rifaximin 550 mg 10/05/16 10:00 10/12/16 17:22 Xifaxan PO 550 mg BID TONI Administration Protocol Thiamine HCl 100 mg 10/03/16 10:00 10/12/16 10:19 Vitamin B1 Tab PO 100 mg DAILY TONI Administration Vancomycin HCl 125 mg 10/03/16 11:00 10/13/16 05:05 Vancocin 25 Mg/Ml (Oral Use) PO 125 mg Q6H TONI Administration Protocol Vitamin A 1 ea 10/03/16 10:00 10/12/16 10:19 Vitamin A & D Oint Ud Foilpak TOP 1 ea DAILY TONI Administration Vitamin B Complex/Vit C/Folic Acid 1 tab 10/03/16 08:00 10/13/16 08:34 Nephro-Mariann PO 1 tab 0800 TONI Administration - Patient Studies Lab Studies: Microbiology Studies 10/11/16 07:40 Blood Culture - Preliminary Blood-Venous NO GROWTH AFTER 48 HOURS 10/11/16 07:10 Blood Culture - Preliminary Blood-Venous NO GROWTH AFTER 48 HOURS 10/08/16 14:05 Blood Culture - Preliminary Blood NO GROWTH AFTER 4 DAYS 10/08/16 13:50 Blood Culture - Preliminary Blood NO GROWTH AFTER 4 DAYS Lab Studies 10/13/16 10/13/16 Range/Units 06:10 06:10 WBC 8.3 D (4.5-11.0) 10^3/ul RBC 3.19 L (3.5-6.1) 10^6/uL Hgb 10.2 L (14.0-18.0) g/dL Hct 32.4 L (42.0-52.0) % MCV 101.6 (80.0-105.0) fl MCH 32.0 (25.0-35.0) pg MCHC 31.5 (31.0-37.0) g/dl RDW 15.8 H (11.5-14.5) % Plt Count 75 L (120.0-450.0) 10^3/uL MPV 9.4 (7.0-11.0) fl Gran % 78.9 H (50.0-68.0) % Lymph % (Auto) 16.8 L (22.0-35.0) % [place] % (Auto) 4.0 (1.0-6.0) % Eos % (Auto) 0.2 L (1.5-5.0) % Baso % (Auto) 0.1 (0.0-3.0) % Gran # 6.52 H (1.4-6.5) Lymph # 1.4 (1.2-3.4) [place] # 0.3 (0.1-0.6) Eos # 0.0 (0.0-0.7) Baso # 0.01 (0.0-2.0) K/mm3 Sodium 148 (132-148) mmol/L Potassium 3.5 L (3.6-5.0) mmol/L Chloride 114 H (98-107) mmol/L Carbon Dioxide 24 (21-33) mmol/L Anion Gap 14 (10-20) BUN 93 H (7-21) mg/dL Creatinine 3.2 H (0.5-1.4) mg/dL Est GFR ( Amer) 24 Est GFR (Non-Af Amer) 20 Random Glucose 106 (70-110) mg/dL Calcium 7.5 L (8.4-10.5) mg/dL Total Bilirubin 2.4 H (0.2-1.3) mg/dL AST 66 H (17-59) U/L ALT 28 (7-56) U/L Alkaline Phosphatase 91 (38-126) U/L Total Protein 4.9 L (5.8-8.3) g/dL Albumin 2.3 L (3.0-4.8) g/dL Globulin 2.5 gm/dL Albumin/Globulin Ratio 0.9 L (1.1-1.8) Laboratory Results - last 24 hr 10/13/16 10/13/16 06:10 06:10 WBC 8.3 D RBC 3.19 L Hgb 10.2 L Hct 32.4 L MCV 101.6 MCH 32.0 MCHC 31.5 RDW 15.8 H Plt Count 75 L MPV 9.4 Gran % 78.9 H Lymph % (Auto) 16.8 L [place] % (Auto) 4.0 Eos % (Auto) 0.2 L Baso % (Auto) 0.1 Gran # 6.52 H Lymph # 1.4 [place] # 0.3 Eos # 0.0 Baso # 0.01 Sodium 148 Potassium 3.5 L Chloride 114 H Carbon Dioxide 24 Anion Gap 14 BUN 93 H Creatinine 3.2 H Est GFR ( Amer) 24 Est GFR (Non-Af Amer) 20 Random Glucose 106 Calcium 7.5 L Total Bilirubin 2.4 H AST 66 H ALT 28 Alkaline Phosphatase 91 Total Protein 4.9 L Albumin 2.3 L Globulin 2.5 Albumin/Globulin Ratio 0.9 L Fingerstick Blood Sugar Results: 105 Review of Systems - Review of Systems Review of Systems: Please refer HPI Critical Care Progress Note - Ventilator Checklist Head of Bed 30 Degrees: Yes PUD Prophalyxis: Yes DVT Prophylaxis: Yes - Vent Settings MODE:: PRESSURE SUPPORT Assessment/Plan - Assessment and Plan (Free Text) Assessment: 56 year old male with an initial presentation of AMS in the setting of persistent hypokalemia and alcohol withdrawal, which resolved. Patient was then intubated after he was found to be in hypercapnic respiratory failure and subsequently became hemodynamically unstable requiring dual vasopressor support. His presentation is consistent with distributive shock likely from either acute decompensated chronic liver failure or sepsis from C. Diff colitis , with multiorgan dysfunction syndrome including renal failure, encephalopathy and respiratory failure. Patient is no longer requiring vasopressin or levophed for hemodynamic support but is on midodrine. Patient is currently unresponsive to verbal or tactile stimuli off of sedation. Patient is has been transitioned from PRVC to PS/CPAP. Plan: Neuro: -CT head showed on 10/02 no acute findings in the brain and no acute hemorrhages or infarcts, age related cortical atrophy and ventriculomegaly -Repeat CT head done on 10/11 showed no acute intracranial pathology. -Currently intubated on PS/CPAP with no sedation -Ammonia level pending -Continue Lactulose 20mg TID -Continue Ativan 2mg IVP Q2H PRN for symptoms of alcohol withdrawal -Continue Thiamine, Folic Acid and MV supplementation Pulm: Mechanical ventilation settings on PS/CPAP currently at: FiO2-40 PEEP-5/5 -Chest X-Ray on 10/11 showed no active disease with ET and OG tube unchanged grossly -Transitioned from PRVC to PS/CPAP -Continue Duonebs 3ml IH [id number] for wheezing Cardio: -EKG done on 10/05 shows sinus tachycardia at a rate of 106 and low voltage QRS with a non-specific t-wave abnormality -ECHO done on 10/10 showed LVEF of 55% with poor visualization of the valvular structures due to poor ECHO window and to consider MARILUZ if clinically indicated -Continue midodrine 5mg PO TID -Cardiology consulted, appreciate all recommendations GI: -CT abdomen/pelvis done on 10/04 showed possible sigmoid colitis, mild-to- moderate abdominal and pelvic ascites, free intrarenal gas or definite bowel obstruction, and hepatosplenomegaly again identified as well as diffuse fatty infiltration of liver -Approximately 2.5L of fluid removed via paracentesis on 10/05 with appropriate albumin resuscitation provided -Ascites predominantly lymphocytic and cytology showing no malignancy -Continue Vancomycin 125mg PO Q6H for C. Difficile, per ID -AST/ALT at 66/28 with T. Bili at 2.4, currently stable -Continue Lactulose 20mg TID -Continue Rifaximin 550mg PO BID for hepatic encephalopathy -Continue with Vital AF tube feedings at 25ml/hr and increase by 5ml/hr as tolerated to a maximum rate of 30mls/hr -Residual measured at 200cc per nursing, will check again in 8 hours after tube feedings decreased -Continue Reglan 10mg IVP Q6H PRN for residual tube feeding -Rectal tube in place and currently draining 2200cc over the past 24 hours -GI consulted, all recommendations appreciated Renal: -BUN/Creatinine at 93/3.2, representing acute renal failure but currently downtrending -Urine total protein at 897 and Urine Microalbumin >950 -Vyas catheter in place and draining 1200cc of dariela urine over the past 24 hours -Will continue to replete calcium, magnesium, phosphorus and potassium as needed -Will continue to monitor with serial CMP's, magnesium and phosphorous levels -Nephrology consulted, all recommendations appreciated Heme/Onc: -H/H stable at 10.2/32.4 -Thrombocytopenia improved from 29 to 75 -Will continue to monitor with serial CBC's ID: -Currently on Micafungin 100mg IV daily (day 6), Merrem 250mg IVPB Q12 (day 10) , and Vancomycin 125mg PO Q6 (day 11 of PO/day 15 overall) -Will likely discontinue Merrem and IV vancomycin in the next day or two, per ID -Afebrile overnight -Blood cultures negative for 48 hours -UA, urine and fungal cultures pending -Previous blood, sputum and urine cultures growing tom albicans -C. Diff antigen positive and toxin negative -MRSA screen negative -Continue Tylenol 320mg (Liquid) PO Q4 PRN for fever over 100.4 -ID consulted, all recommendations appreciated Endocrine: -Will maintain euglycemia with blood glucose between 140 and 180 Lines: -Continue all peripheral lines GI Prophylaxis: Protonix DVT Prophylaxis: SCD's Disposition: Will likely have discussions with family as extubation decision anticipated over the next few days. Patient seen and case discussed with attending, Dr. Hinojosa. - Date & Time Date: 10/13/16 Time: 10:26 <Otto Hinojosa - Last Filed: 10/13/16 14:11> CCU Objective - Vital Signs / Intake & Output Intake and Output (Last 8hrs): Intake & Output 10/12/16 10/13/16 10/13/16 22:59 06:59 14:59 Intake Total 995 Output Total 2700 Balance -1705 Intake: IV 595 Right Forearm 595 Oral 400 Output: Drainage 800 Paracentesis 800 Urine 600 Urethral (Vyas) 600 Stool 1100 Other 200 Other: Voiding Method Indwelling Catheter - Medications Active Medications: Active Medications Generic Name Dose Route Start Last Admin Trade Name Freq PRN Reason Stop Dose Admin Albuterol/Ipratropium 3 ml 10/05/16 08:00 10/13/16 13:07 Duoneb 3 Mg/0.5 Mg (3 Ml) Ud IH 3 ml [id number] TONI Administration Artificial Tears 1 gm 10/10/16 18:00 10/13/16 05:05 Artificial Tears Opht Oint OU 1 gm Q6 TONI Administration Folic Acid 1 mg 10/03/16 10:00 10/13/16 10:45 Folic Acid PO 1 mg DAILY TONI Administration Micafungin Sodium 100 mg/ 100 mls @ 100 mls/hr 10/08/16 10:00 10/13/16 10:40 Sodium Chloride IV 10/17/16 10:01 100 mls/hr DAILY TONI Administration Protocol Meropenem 250 mg/ Sodium 100 mls @ 100 mls/hr 10/08/16 13:30 10/13/16 02:06 Chloride IVPB 10/17/16 13:31 100 mls/hr Q12H TONI Administration Protocol Sodium Chloride 1,000 mls @ 75 mls/hr 10/13/16 08:15 10/13/16 08:30 Sodium Chloride 0.9% IV 75 mls/hr .[id number] TONI Administration Lactulose 20 gm 10/11/16 10:00 10/13/16 13:59 Enulose PO 20 gm TID TONI Administration Lorazepam 2 mg 10/02/16 21:28 10/07/16 05:33 Ativan IVP 2 mg Q2H PRN Administration Agitation Protocol Metoclopramide HCl 10 mg 10/09/16 16:56 10/09/16 17:13 Reglan IVP 10 mg Q6H PRN Administration Other Midodrine 5 mg 10/09/16 10:00 10/13/16 13:59 Proamatine PO 5 mg TID TONI Administration Pantoprazole Sodium 40 mg 10/03/16 10:00 10/13/16 10:42 Protonix Inj IVP 40 mg DAILY TONI Administration Rifaximin 550 mg 10/05/16 10:00 10/13/16 10:40 Xifaxan PO 550 mg BID TONI Administration Protocol Thiamine HCl 100 mg 10/03/16 10:00 10/13/16 10:40 Vitamin B1 Tab PO 100 mg DAILY TONI Administration Vancomycin HCl 125 mg 10/03/16 11:00 10/13/16 10:42 Vancocin 25 Mg/Ml (Oral Use) PO 125 mg Q6H TONI Administration Protocol Vitamin A 1 ea 10/03/16 10:00 10/13/16 10:43 Vitamin A & D Oint Foilpak TOP 1 ea DAILY TONI Administration Vitamin B Complex/Vit C/Folic Acid 1 tab 10/03/16 08:00 10/13/16 08:34 Nephro-Mariann PO 1 tab 0800 TONI Administration - Patient Studies Lab Studies: Microbiology Studies 10/08/16 14:05 Blood Culture - Final Blood NO GROWTH AFTER 5 DAYS Gram Stain - Final TEST NOT PERFORMED 10/08/16 13:50 Blood Culture - Final Blood NO GROWTH AFTER 5 DAYS Gram Stain - Final TEST NOT PERFORMED 10/11/16 07:40 Blood Culture - Preliminary Blood-Venous NO GROWTH AFTER 48 HOURS 10/11/16 07:10 Blood Culture - Preliminary Blood-Venous NO GROWTH AFTER 48 HOURS Lab Studies 10/13/16 10/13/16 10/13/16 Range/Units 11:30 06:10 06:10 WBC 8.3 D (4.5-11.0) 10^3/ul RBC 3.19 L (3.5-6.1) 10^6/uL Hgb 10.2 L (14.0-18.0) g/dL Hct 32.4 L (42.0-52.0) % MCV 101.6 (80.0-105.0) fl MCH 32.0 (25.0-35.0) pg MCHC 31.5 (31.0-37.0) g/dl RDW 15.8 H (11.5-14.5) % Plt Count 75 L (120.0-450.0) 10^3/uL MPV 9.4 (7.0-11.0) fl Gran % 78.9 H (50.0-68.0) % Lymph % (Auto) 16.8 L (22.0-35.0) % [place] % (Auto) 4.0 (1.0-6.0) % Eos % (Auto) 0.2 L (1.5-5.0) % Baso % (Auto) 0.1 (0.0-3.0) % Gran # 6.52 H (1.4-6.5) Lymph # 1.4 (1.2-3.4) [place] # 0.3 (0.1-0.6) Eos # 0.0 (0.0-0.7) Baso # 0.01 (0.0-2.0) K/mm3 Sodium 148 (132-148) mmol/L Potassium 3.5 L (3.6-5.0) mmol/L Chloride 114 H (98-107) mmol/L Carbon Dioxide 24 (21-33) mmol/L Anion Gap 14 (10-20) BUN 93 H (7-21) mg/dL Creatinine 3.2 H (0.5-1.4) mg/dL Est GFR ( Amer) 24 Est GFR (Non-Af Amer) 20 Random Glucose 106 (70-110) mg/dL Calcium 7.5 L (8.4-10.5) mg/dL Total Bilirubin 2.4 H (0.2-1.3) mg/dL AST 66 H (17-59) U/L ALT 28 (7-56) U/L Alkaline Phosphatase 91 (38-126) U/L Ammonia 39 H (9-33) umol/L Total Protein 4.9 L (5.8-8.3) g/dL Albumin 2.3 L (3.0-4.8) g/dL Globulin 2.5 gm/dL Albumin/Globulin Ratio 0.9 L (1.1-1.8) Laboratory Results - last 24 hr 10/13/16 10/13/16 10/13/16 06:10 06:10 11:30 WBC 8.3 D RBC 3.19 L Hgb 10.2 L Hct 32.4 L MCV 101.6 MCH 32.0 MCHC 31.5 RDW 15.8 H Plt Count 75 L MPV 9.4 Gran % 78.9 H Lymph % (Auto) 16.8 L [place] % (Auto) 4.0 Eos % (Auto) 0.2 L Baso % (Auto) 0.1 Gran # 6.52 H Lymph # 1.4 [place] # 0.3 Eos # 0.0 Baso # 0.01 Sodium 148 Potassium 3.5 L Chloride 114 H Carbon Dioxide 24 Anion Gap 14 BUN 93 H Creatinine 3.2 H Est GFR ( Amer) 24 Est GFR (Non-Af Amer) 20 Random Glucose 106 Calcium 7.5 L Total Bilirubin 2.4 H AST 66 H ALT 28 Alkaline Phosphatase 91 Ammonia 39 H Total Protein 4.9 L Albumin 2.3 L Globulin 2.5 Albumin/Globulin Ratio 0.9 L Attending/Attestation - Attestation I have personally seen and examined this patient.: Yes I have fully participated in the care of the patient.: Yes I have reviewed all pertinent clinical information: Yes Notes (Text): 10/13/16 14:08 56 yo with VDRF ESLD, recovering from septic shock with fungemia, on mycofungin. Started tracking object with eyes, but otherwise not follwoing commands, tolerating PS 5/5. Appears weak, CIP is likely-->will get PT for eval to see if candidate for any form of early mobilization. continue trophic feeds, renal function slighty improved. Ongoing comminication with family as to goals of care. dvt/gi prophylaxis ccm time 40 min
[2016-10-13] MEDS: Micafungin 100 MG in Sodium Chloride 0.9% 100 ML IV SCH (10:40)
[2016-10-13] MEDS: Vitamins A & D Oint UD Foilpak TOP SCH (10:43)
--- NOTE | 2016-10-13 13:00 | PN ---
DATE: 10/13/2016 SUBJECTIVE: The patient has no complaints. The patient is intubated. He is not in sedation. He is not responsive. PHYSICAL EXAMINATION: VITAL SIGNS: Temperature is 98.2, pulse of 89, blood pressure is 108/63, and respirations 24. GENERAL: The patient is lying in bed, flat, comfortable. HEENT: No oral lesion. Anicteric sclerae. Moist mucosa. NECK: No JVD, adenopathy, or thyromegaly. CARDIOVASCULAR: S1 and S2, regular. No murmurs, rubs, or gallops. LUNGS: Clear to auscultation bilaterally. No wheeze, rales, or rhonchi. ABDOMEN: Bowel sounds are positive, soft, nontender and nondistended. EXTREMITIES: no cyanosis, clubbing or edema. LABORATORY DATA: Creatinine is 3.2, potassium is 3.5. Hemoglobin 10.2. ASSESSMENT: 1. Acute kidney injury. 2. Thrombocytopenia. 3. Hypokalemia. 4. Hypocalcemia, improved. 5. Candidemia. 6. Hypercapnic respiratory failure, on ventilator. 7. Hepatitis C. 8. Cirrhosis. 9. Alcoholism. 10. Anemia, iron deficiency plus multifactorial. 11. Proteinuria 3.3 g per day. 14. Do not resuscitate/do not intubate. PLAN: The patient is currently intubated. He continues to have fever. His temperature two days ago in the 100s. Temperature has improved. The patient's hemoglobin is stable at . He states creatinine level is stable as 3.2, it was 3.6 yesterday. Not significantly different. The patient is not responsive. He is currently receiving Ativan as needed, but does not require it. He is on lactulose. The patient is on micafungin for his candidemia. He is continuing with his midodrine for his cirrhosis. He is on IV fluids with D5W bicarb. The patient's bicarb is normal. I will discontinue his bicarb and place him on normal saline. The patient is receiving thiamine daily. He is on . Repeat the patient's blood work tomorrow. Overall prognosis is poor. We will continue with supportive care. Nick Maldonado MD [facility] # [id number]
--- NOTE | 2016-10-13 16:07 | PN ---
DATE: 10/13/2016 HISTORY OF PRESENT ILLNESS: The patient seen and examined at bedside. He is comfortable. He is tracking objects with his eyes. He tolerated pressure support 10/5 with FiO2 40% entire night. At the present time, he is on pressure support 5/5 with FiO2 40% and his RSBI is 89 to 90. His tidal volume 632 which is unchanged compared with when he was on pressure support 10/5. PHYSICAL EXAMINATION: VITAL SIGNS: His oxygen saturation is 100%. His blood pressure 118/70. His end-tidal CO2 on the monitor 42. His heart rate is 85. HEAD AND NECK: Atraumatic. LUNGS: Clear to auscultation bilaterally. HEART: Regular rate and rhythm. S1 and S2 normal. ABDOMEN: Soft, nontender, nondistended. MUSCULOSKELETAL: No C/C/E. NEUROLOGIC: The patient moves all extremities spontaneously. SKIN: Color is moist. PSYCHIATRIC: The patient is tracking objects with his eyes. LABORATORY DATA: Sodium 148, potassium 3.5, chloride 114, carbon dioxide 24, BUN 93, creatinine 3.2 down from 3.6, glucose 106, AST is 66, ALT 28. WBC 8.3, hemoglobin 10.2, platelet count 75. MEDICATIONS: Tylenol p.r.n. (stop), DuoNeb every 6 hours, folic acid, lactulose, Ativan p.r.n., meropenem, Reglan p.r.n., micafungin, midodrine, Protonix, rifaximin, normal saline 75 mL per hour, vancomycin p.o., vitamin A and D topical, vitamin B complex. ASSESSMENT AND PLAN: This is a 56-year-old gentleman with history of end-stage liver disease, now with ventilator dependent respiratory failure with resolved septic shock due to fungemia and Clostridium difficile colitis. His lines were removed. He is on p.o. vancomycin, micafungin, meropenem. His mental status started to get a little bit better. He tolerated pressure support trial very well overnight and currently is on 5/5 with FiO2 40%. He started tracking objects with his eyes, which also appears to be improvement in his mental status as well. The patient is hemodynamically stable at the present time, may be he is a little bit on a dry side which is in line with with conservative fluid management to expedite weaning from mechanical ventilation. The patient is not on any sedation. His renal function is getting better. He is on normal saline at 75 mL per hour. The patient does, however, has 200 cc residual and enteral nutrition was held and resumed at trophic level. The patient appears to be improving a little bit. He is tracking objects with his eyes. He is not on any sedation. EEG is pending. CAT scan did not show any acute intracranial pathology. PULMONARY: We will continue with daily weaning trials. The patient tolerated pressure support very well. We will continue with head of bed elevated to >35 degrees. We will continue with conservative fluid and oxygen management. We will continue with DVT and GI prophylaxis. The patient was intubated for about 8 days and we will proceed with leak test, the leak is 120 of the tidal volume. CARDIOVASCULAR: The patient is hemodynamically stable. GASTROINTESTINAL: The patient has large residual and enteral nutrition were held. The belly is soft, nontender. ENDOCRINE: We will continue with blood glucose within 140 to 180 range according to NICE-SUGAR trial. RENAL: Creatinine level is going down. We will continue to try to maintain balance between adequate kidney perfusion and avoiding fluid overload in the lungs. We will try to avoid nephrotoxic medication, but not on expense of treatment of underlying disease. INFECTIOUS DISEASE: The patient is afebrile with no leukocytosis, on micafungin, meropenem, p.o. vancomycin. ID service is following him as well. Addendum: patient started to get a bit tired-->put PS up a bit to 10/5, will switch to PRVC for overnight ccm time 40 min Otto Hinojosa MD [facility]
--- NOTE | 2016-10-13 17:40 | CP.PCM.PN ---
<Justo Torres - Last Filed: 10/13/16 17:52> Subjective - Date & Time of Evaluation Date of Evaluation: 10/13/16 Time of Evaluation: 07:37 - Subjective Subjective: Patient was seen and examined at bedside this morning. The patient is to be intubated and put on PS/CPAP and off of sedation however continues to be unresponsive to verbal and tactile stimuli. ROS unobtainable due to the patient 's current condition. Objective - Vital Signs/Intake and Output Vital Signs (last 24 hours): Temp Pulse Resp BP Pulse Ox 98.2 F 89 24 108/63 84 L 10/13/16 06:00 10/13/16 06:00 10/13/16 04:00 10/13/16 05:00 10/13/16 06:00 Intake and Output: 10/13/16 10/13/16 06:59 18:59 Intake Total 995 Output Total 2700 Balance -1705 - Medications Medications: Current Medications Albuterol/Ipratropium (Duoneb 3 Mg/0.5 Mg (3 Ml) Ud) 3 ml IH [id number] [facility] Last Admin: 10/13/16 13:07 Dose: 3 ml Artificial Tears (Artificial Tears Opht Oint) 1 gm OU Q6 [facility] Last Admin: 10/13/16 17:26 Dose: 1 gm Folic Acid (Folic Acid) 1 mg PO DAILY [facility] Last Admin: 10/13/16 10:45 Dose: 1 mg Micafungin Sodium 100 mg/ (Sodium Chloride) 100 mls @ 100 mls/hr IV DAILY [facility] PRN Reason: Protocol Stop: 10/17/16 10:01 Last Admin: 10/13/16 10:40 Dose: 100 mls/hr Meropenem 250 mg/ Sodium (Chloride) 100 mls @ 100 mls/hr IVPB Q12H [facility] PRN Reason: Protocol Stop: 10/17/16 13:31 Last Admin: 10/13/16 02:06 Dose: 100 mls/hr Sodium Chloride (Sodium Chloride 0.9%) 1,000 mls @ 75 mls/hr IV .[id number] [facility] Last Admin: 10/13/16 08:30 Dose: 75 mls/hr Lactulose (Enulose) 20 gm PO TID [facility] Last Admin: 09/08/17 17:26 Dose: 20 gm Lorazepam (Ativan) 2 mg IVP Q2H PRN; Protocol PRN Reason: Agitation Last Admin: 10/07/16 05:33 Dose: 2 mg Metoclopramide HCl (Reglan) 10 mg IVP Q6H PRN PRN Reason: Other Last Admin: 10/09/16 17:13 Dose: 10 mg Midodrine (Proamatine) 5 mg PO TID [facility] Last Admin: 10/13/16 17:26 Dose: 5 mg Pantoprazole Sodium (Protonix Inj) 40 mg IVP DAILY [facility] Last Admin: 10/13/16 10:42 Dose: 40 mg Rifaximin (Xifaxan) 550 mg PO BID [facility] PRN Reason: Protocol Last Admin: 10/13/16 17:26 Dose: 550 mg Thiamine HCl (Vitamin B1 Tab) 100 mg PO DAILY [facility] Last Admin: 10/13/16 10:40 Dose: 100 mg Vancomycin HCl (Vancocin 25 Mg/Ml (Oral Use)) 125 mg PO Q6H [facility] PRN Reason: Protocol Last Admin: 10/13/16 10:42 Dose: 125 mg Vitamin A (Vitamin A & D Oint Ud Foilpak) 1 ea TOP DAILY [facility] Last Admin: 10/13/16 10:43 Dose: 1 ea Vitamin B Complex/Vit C/Folic Acid (Nephro-Mariann) 1 tab PO 0800 [facility] Last Admin: 10/13/16 08:34 Dose: 1 tab - Labs Labs: 10/13/16 06:10 10/13/16 06:10 PT 16.1 Seconds (9.9-11.8) H 10/10/16 11:48 INR 1.49 (0.93-1.08) H 10/10/16 11:48 APTT 30.3 Seconds (23.7-30.8) 10/10/16 11:48 - Head Exam Head Exam: NORMAL INSPECTION - Eye Exam Eye Exam: Normal appearance, PERRL. absent: EOMI Pupil Exam: NORMAL ACCOMODATION, PERRL - ENT Exam ENT Exam: Mucous Membranes Moist - Neck Exam Neck Exam: Normal Inspection - Respiratory Exam Respiratory Exam: Clear to Ausculation Bilateral, NORMAL BREATHING PATTERN. absent: Accessory Muscle Use, Chest Wall Tenderness, Respiratory Distress - Cardiovascular Exam Cardiovascular Exam: REGULAR RHYTHM, RRR, +S1, +S2. absent: Rubs - GI/Abdominal Exam GI & Abdominal Exam: Soft, Normal Bowel Sounds. absent: Tenderness - Exam Exam: Scrotal Swelling - Skin Skin Exam: Mottled Assessment and Plan - Assessment and Plan (Free Text) Assessment: 56 year old male with an initial presentation of AMS in the setting of persistent hypokalemia and alcohol withdrawal, which resolved. Patient was then intubated after he was found to be in hypercapnic respiratory failure and subsequently became hemodynamically unstable requiring dual vasopressor support. His presentation is consistent with distributive shock likely from either acute decompensated chronic liver failure or sepsis from C. Diff colitis , with multiorgan dysfunction syndrome including renal failure, encephalopathy and respiratory failure. Patient is no longer requiring vasopressin or levophed for hemodynamic support but is on midodrine. Patient is currently unresponsive to verbal or tactile stimuli off of sedation. Patient is has been transitioned from PRVC to PS/CPAP. Plan: Pulmonary: Hypercapnic Respiratory Failure -Patient intubated on 10/05. Today: FiO2= 40%, RR=26, PEEP+5, and Tidal Volume + 400 ml, O2 saturation+96% -ABG: pCO2+47, pO2+73, pH+7.26 -Patient hypotension slightly improved to 115/70 and remains off pressors. -Cardio following -CXR shows no active pulmonary disease. -Continue to monitor vital signs. -Continue Duonebs 3ml IHQ6 HRESP for wheezing symptoms. Renal: Acute renal failure most likely secondary to glomerulonephritis -BUN 93(up from 90) and Creatinine is 3.2(down from 3.6). -Urine total protein-897 and Urine Microalbumin >950. -Nephrology consult note appreciated. -No acute indications for HD at this time. Urine output today increased to 1200 ml. -Nephrology consult note appreciate- Hematology: Thrombocytopenia -Plt count now 75 (up from 29 on 10/22). Continue to monitor plt count and consider tranfusion if patient drops below 20. -Patient currently has no active bleeds. Monitor for bleeding. EtOh Withdrawal -Continue Ativan 2mg IVP Q2H PRN for alcohol withdrawal symptoms. -Continue Thiamine, Folic acid and MV supplementation Ascites -s/p ascitic fluid removed on 10/05. -culture growth negative after 166 hours. GI: Hepatic encephalopathy -Continue Rifaxamin, Lactulose -Rectal tube in place and currently draining 2200 cc over the past 24 hours. -Continue with Vital AF tube feedings as 25ml/hr and increase by 5ml/hr as tolerated to a maximum rate of 30mls/hr. Anemia -Stool occult blood positive on 10/05. -Hgb is 10.2(down from 9.5) and Hct is 32.4 (down from 29.5). Patient is s/p 3 units leukocyte reduced PRBC's. Continue to monitor H/H levels with serial CBC' s. Consider Transfusion if Hgb falls below 7. Sepsis/Fungemia -Grew Kamille Albicans -Continue Micafungin (renal dosing) -Continue Merrem, Vancomycin C Diff infection. -Continue Vancomycin Hypokalemia -Potassium today 3.5. Patient was repleted with 2 10ml K Riders IV. Will continue to monitor electrolyte levels with serial cmp's. GI ppx -Continue Protonix DVT ppx. <Petr Hartmann - Last Filed: 10/22/16 14:31> Objective - Vital Signs/Intake and Output Vital Signs (last 24 hours): Temp Pulse Resp BP Pulse Ox 98.8 F 93 H 36 H 100/60 100 10/21/16 23:30 10/22/16 12:00 10/22/16 07:13 10/22/16 04:00 10/22/16 07:13 - Medications Medications: Current Medications Amikacin Sulfate (Amikacin 500 Mg/2ml Inj) 500 mg IH [id number] [facility] Last Admin: 10/22/16 07:03 Dose: 500 mg Artificial Tears (Artificial Tears Opht Oint) 1 gm OU Q6 [facility] Last Admin: 10/22/16 13:57 Dose: 1 applic Folic Acid (Folic Acid) 1 mg PO DAILY [facility] Last Admin: 10/22/16 10:04 Dose: 1 mg Gentamicin Sulfate 270 mg/ (Sodium Chloride) 106.75 mls @ 106.75 mls/hr IVPB ONCE [facility] Last Admin: 10/17/16 11:42 Dose: 106.75 mls/hr Doxycycline Hyclate 100 mg/ (Sodium Chloride) 100 mls @ 100 mls/hr IVPB Q12 [facility] PRN Reason: Protocol Stop: 10/23/16 10:01 Last Admin: 10/22/16 09:59 Dose: 100 mls/hr Micafungin Sodium 100 mg/ (Sodium Chloride) 100 mls @ 100 mls/hr IV DAILY [facility] PRN Reason: Protocol Stop: 10/25/16 10:01 Last Admin: 10/22/16 09:57 Dose: 100 mls/hr Sodium Bicarbonate 150 meq/ (Dextrose) 1,150 mls @ 100 mls/hr IV .[id number] [facility] Last Admin: 10/22/16 13:59 Dose: 100 mls/hr Meropenem 500 mg/ Sodium (Chloride) 100 mls @ 100 mls/hr IVPB Q12 [facility] PRN Reason: Protocol Stop: 10/30/16 10:01 Last Admin: 10/22/16 09:57 Dose: 100 mls/hr Lactulose (Enulose) 20 gm PO TID [facility] Last Admin: 10/22/16 13:53 Dose: 20 gm Metoclopramide HCl (Reglan) 10 mg IVP Q6H PRN PRN Reason: Other Last Admin: 10/18/16 09:19 Dose: 10 mg Midodrine (Proamatine) 5 mg PO TID [facility] Last Admin: 10/22/16 13:55 Dose: 5 mg Morphine Sulfate (Morphine) 2 mg IVP Q4H PRN PRN Reason: Pain, severe (8-10) Multi-Ingredient Ointment (Hydrophor Oint) 1 gm TOP Q8 [facility] Last Admin: 10/22/16 13:55 Dose: 1 applic Pantoprazole Sodium (Protonix Inj) 40 mg IVP DAILY [facility] Last Admin: 10/22/16 10:04 Dose: 40 mg Thiamine HCl (Vitamin B1 Tab) 100 mg PO DAILY [facility] Last Admin: 10/22/16 10:04 Dose: 100 mg Vitamin A (Vitamin A & D Oint Ud Foilpak) 3 ea TOP TID [facility] Last Admin: 10/22/16 13:59 Dose: 3 ea Vitamin B Complex/Vit C/Folic Acid (Nephro-Mariann) 1 tab PO 0800 [facility] Last Admin: 10/22/16 07:35 Dose: 1 tab - Labs Labs: 10/22/16 07:15 10/22/16 07:15 PT 16.7 Seconds (9.9-11.8) H 10/20/16 09:35 INR 1.55 (0.93-1.08) H 10/20/16 09:35 APTT 36.5 Seconds (23.7-30.8) H 10/20/16 09:35 Attending/Attestation - Attestation I have personally seen and examined this patient.: Yes I have fully participated in the care of the patient.: Yes I have reviewed all pertinent clinical information, including history, physical exam and plan: Yes Notes (Text): I have seen and examined the patient at bedside. Agree with the above note with the following additions/ exceptions: Briefly this is 56 year old male with history of alcohol abuse, cirrhosis who was admitted with AMS probably due to distributive shock secondary to sepsis vs hepatic encephalopathy. He remains intubated and is currently off of sedation however there is no spontaneous movement. Pupils are reactive to light however there is no corneal reflex. He was also found to have oliguric acute renal failure, hematuria, hypocomplimentenemia and proteinuria probably due to acute glomerulonephritis. HRS less likely due to proteinuria and high JOSELITO. No need for emergency hemodialysis. monitor closely. Continue rifaximin for hapatic encephalopathy. 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 Continue po vanco for cdiff. Rectal tube is in. Patient is DNR. will make decisions about further care after discussing with family members.Prognosis guarded. Dr Petr Hartmann
--- NOTE | 2016-10-13 18:57 | CON ---
NEUROLOGY CONSULTATION REASON FOR CONSULTATION: Altered mental status. HISTORY OF PRESENT ILLNESS: The patient is a 56-year-old male who has been asked for evaluation of altered mental status. The patient apparently had delirium tremens and subsequently had renal failure as well as respiratory failure. The patient still intubated; however, the patient is not following commands that is why neurology consultation is called. PAST MEDICAL HISTORY: Includes liver cirrhosis, gastritis, hepatitis C, pancytopenia. PAST SURGICAL HISTORY: Include colonic polypectomy. CURRENT MEDICATION: Include Ativan p.r.n., DuoNeb, lactulose, folic acid, meropenem, vitamin B, ProAmatine, Protonix, Reglan, vancomycin, thiamine and rifaximin. ALLERGIES: PSEUDOEPHEDRINE, SULFA AND PENICILLIN. SOCIAL HISTORY: The patient does smokes cigarettes. Drinks 1 pint of alcohol per day. History of heroin abuse in the past. FAMILY HISTORY: Father of liver cancer. Mother of breast cancer. PHYSICAL EXAMINATION: GENERAL: The patient is an middle-aged male, looks older for his age, lying on the bed, in no acute distress on a ventilator. VITAL SIGNS: His blood pressure is 108/63, heart rate is 89 per minute, breathing at the rate of 18 per minute, temperature is 98.2 degree Fahrenheit. HEENT: Head is normocephalic and atraumatic. NECK: Supple. There are no carotid bruits. LUNGS: Clear. CARDIOVASCULAR SYSTEM: S1 and S2 audible. No murmurs. ABDOMEN: Soft and nontender. Bowel sounds are present. NEUROLOGIC: Mental status: The patient is awake, alert, he looks at the examiner. He does not follow commands. He has icteric sclera. Cranial nerve: Pupils are 5 mm bilaterally reactive to light. Visual jones are full threat. Extraocular movements are intact. There is no obvious facial asymmetry. He is withdrawing is extremities to noxious painful stimuli. Reflexes are absent. Plantars are downgoing bilaterally. LABORATORY DATA: Labs were reviewed. Shows WBC of 8.3, hemoglobin of 10.2, hematocrit of 32.4, and platelets of 75. His sodium is 148, potassium 3.5, chloride 114, carbon dioxide content of 24, BUN of 93, creatinine of 3.2, and glucose of 106. His ammonia level is 42 yesterday, it was [address] scan of the head, which shows no acute intracranial pathology. IMPRESSION: Alerted mental status, which appears to be secondary to toxic metabolic encephalopathy, likely hepatic encephalopathy. RECOMMENDATIONS: 1. The patient to have an MRI of the brain without contrast. 2. The patient to have an electroencephalogram. 3. The patient to be continued on lactulose. 4. The patient is on IV antibiotics. 5. The patient to have ventilatory support. 6. Please continue thiamine. 7. Continue supportive care on the treatment. Thank you for the opportunity of participating in the care of this patient. Ame Hartmann MD
[2016-10-14] MEDS: Sodium Chloride 0.9% 1,000 ML IV SCH ×2 (00:11→11:01)
[2016-10-14] MEDS: Mineral Oil/Petrolatum Opht Oint(3.5 gm) OU SCH ×4 (00:12→18:00)
[2016-10-14] MEDS ORDERED: Acetaminophen 160 mg/5 ml UD PO STA (00:47)
[2016-10-14 01:13] LABS: ARTERIAL BLOOD GAS HCO3 21.2 mmol/L (21-28); ARTERIAL BLOOD GAS O2 CAPACITY 12.5 mL/dl (16-24); ARTERIAL BLOOD GAS O2 CONTENT 12.4 ML/dl (15-23); ARTERIAL BLOOD HGB O2 SAT 95.9 % (95.0-98.0); CARBOXYHEMOGLOBIN 2.2 % (0.5-1.5); HHB 0.8 % (0-5); METHEMOGLOBIN 1.1 % (0.0-3.0)
[2016-10-14] MEDS: Albuterol-Ipratrop 3 mg / 0.5 (3 ml) UD IH SCH ×4 (02:13→19:31)
--- NOTE | 2016-10-14 02:52 | CP.PCM.PCO ---
Physician Communication Note - Physician Communication Note Physician Communication Note: see attached
[2016-10-14] MEDS: Vancomycin 25 MG/ML PO SCH ×4 (04:14→23:15)
[2016-10-14 08:25] LABS: BASO # 0.01 K/mm3 (0.0-2.0); BASO % 0.1 % (0.0-3.0); GRAN # 6.68 (1.4-6.5); GRAN % 79.3 % (50.0-68.0); HEMATOCRIT 27.5 % (42.0-52.0); LYMPH # 1.4 (1.2-3.4); LYMPH % 16.7 % (22.0-35.0); MEAN CELL VOLUME 101.1 fl (80.0-105.0); MEAN CORPUSCULAR HEMOGLOBIN 32.4 pg (25.0-35.0); MEAN PLATELET VOLUME 12.7 fl (7.0-11.0); MONO # 0.3 (0.1-0.6); MONO % 3.9 % (1.0-6.0); RED CELL DISTRIBUTION WIDTH 15.9 % (11.5-14.5); WHITE BLOOD COUNT 8.4 10^3/ul (4.5-11.0)
[2016-10-14 08:36] LABS: ALB/GLOB RATIO 0.9 (1.1-1.8); BILIRUBIN,TOTAL 2.1 mg/dL (0.2-1.3); CALCIUM 7.4 mg/dL (8.4-10.5); POTASSIUM 3.4 mmol/L (3.6-5.0); TOTAL PROTEIN 4.8 g/dL (5.8-8.3)
[2016-10-14] MEDS: Meropenem 500 MG in Sodium Chloride 0.9% 100 ML IVPB SCH ×2 (08:59→21:20)
[2016-10-14] MEDS: Micafungin 100 MG in Sodium Chloride 0.9% 100 ML IV SCH (09:09)
[2016-10-14] MEDS: Multivitamin Vitamin B Complex (Nephro-Vite) Tab PO SCH (09:11)
[2016-10-14] MEDS: Vitamins A & D Oint UD Foilpak TOP SCH (09:13)
[2016-10-14 10:13] LABS: ARTERIAL BLOOD GAS HCO3 20.7 mmol/L (21-28); ARTERIAL BLOOD GAS O2 CAPACITY 12.1 mL/dl (16-24); ARTERIAL BLOOD GAS PH 7.29 (7.35-7.45); ARTERIAL BLOOD HGB O2 SAT 95.9 % (95.0-98.0); CARBOXYHEMOGLOBIN 2.3 % (0.5-1.5); METHEMOGLOBIN 0.8 % (0.0-3.0)
--- NOTE | 2016-10-14 10:51 | CP.PCM.PN ---
Subjective - Date & Time of Evaluation Date of Evaluation: 10/14/16 Time of Evaluation: 10:00 - Subjective Subjective: Patient is more awake today but still on the ventilator; developed fevers again overnight, currently not in distress. Still has loose stools but patient is on lactulose. Objective - Vital Signs/Intake and Output Vital Signs (last 24 hours): Temp Pulse Resp BP Pulse Ox 99.0 F 88 24 120/52 L 92 L 10/14/16 06:00 10/14/16 06:00 10/13/16 04:00 10/14/16 06:00 10/14/16 06:00 Intake and Output: 10/14/16 10/14/16 06:59 18:59 Intake Total 1700 Output Total 950 Balance 750 - Medications Medications: Current Medications Albuterol/Ipratropium (Duoneb 3 Mg/0.5 Mg (3 Ml) Ud) 3 ml IH [id number] [facility] Last Admin: 10/14/16 02:13 Dose: 3 ml Artificial Tears (Artificial Tears Opht Oint) 1 gm OU Q6 [facility] Last Admin: 10/14/16 05:10 Dose: 1 gm Folic Acid (Folic Acid) 1 mg PO DAILY [facility] Last Admin: 10/13/16 10:45 Dose: 1 mg Micafungin Sodium 100 mg/ (Sodium Chloride) 100 mls @ 100 mls/hr IV DAILY [facility] PRN Reason: Protocol Stop: 10/17/16 10:01 Last Admin: 10/13/16 10:40 Dose: 100 mls/hr Sodium Chloride (Sodium Chloride 0.9%) 1,000 mls @ 75 mls/hr IV .[id number] [facility] Last Admin: 10/14/16 00:11 Dose: 75 mls/hr Meropenem 500 mg/ Sodium (Chloride) 100 mls @ 100 mls/hr IVPB Q12 [facility] PRN Reason: Protocol Stop: 10/21/16 07:07 Lactulose (Enulose) 20 gm PO TID [facility] Last Admin: 10/13/16 17:26 Dose: 20 gm Lorazepam (Ativan) 2 mg IVP Q2H PRN; Protocol PRN Reason: Agitation Last Admin: 10/07/16 05:33 Dose: 2 mg Metoclopramide HCl (Reglan) 10 mg IVP Q6H PRN PRN Reason: Other Last Admin: 10/09/16 17:13 Dose: 10 mg Midodrine (Proamatine) 5 mg PO TID [facility] Last Admin: 10/13/16 17:26 Dose: 5 mg Pantoprazole Sodium (Protonix Inj) 40 mg IVP DAILY [facility] Last Admin: 10/13/16 10:42 Dose: 40 mg Rifaximin (Xifaxan) 550 mg PO BID [facility] PRN Reason: Protocol Last Admin: 10/13/16 17:26 Dose: 550 mg Thiamine HCl (Vitamin B1 Tab) 100 mg PO DAILY [facility] Last Admin: 10/13/16 10:40 Dose: 100 mg Vancomycin HCl (Vancocin 25 Mg/Ml (Oral Use)) 125 mg PO Q6H [facility] PRN Reason: Protocol Last Admin: 10/14/16 04:14 Dose: 125 mg Vitamin A (Vitamin A & D Oint Ud Foilpak) 1 ea TOP DAILY [facility] Last Admin: 10/13/16 10:43 Dose: 1 ea Vitamin B Complex/Vit C/Folic Acid (Nephro-Mariann) 1 tab PO 0800 [facility] Last Admin: 10/13/16 08:34 Dose: 1 tab - Labs Labs: 10/13/16 06:10 10/13/16 06:10 PT 16.1 Seconds (9.9-11.8) H 10/10/16 11:48 INR 1.49 (0.93-1.08) H 10/10/16 11:48 APTT 30.3 Seconds (23.7-30.8) 10/10/16 11:48 - Constitutional Appears: Other (Intubated, more awake today) - Head Exam Head Exam: NORMAL INSPECTION - Eye Exam Eye Exam: Scleral icterus - ENT Exam Additional comments: ET tube in place - Neck Exam Neck Exam: absent: Meningismus - Respiratory Exam Respiratory Exam: Decreased Breath Sounds - Cardiovascular Exam Cardiovascular Exam: +S1, +S2 - GI/Abdominal Exam GI & Abdominal Exam: Soft. absent: Tenderness Assessment and Plan - Assessment and Plan (Free Text) Plan: Assessment severe sepsis with ventilator-dependent respiratory failure, respiratory acidosis and worsening acute renal failure (slowly improving )probably due to C. albicans fungemia and healthcare-associated pneumonia on top of colitis or spontaneous bacterial peritonitis in this patient with liver cirrhosis probably from alcohol abuse; S/P paracentesis; initially presented with delerium tremens ; patient has new onset fevers, need to rule out new onset sepsis chronic alcohol abuse with history of liver cirrhosis and esophageal varices significant smoking history Plan continue intermittent Vancomycin IV and Merrem (day 10) - target 10 days of therapy, PO Vancomycin (day 12) -target 10-14 days of therapy and Mycamine ( repeat blood cx on 10/08/2016 are negative - we are cautious not to use Fluconazole in this patient with worsening hepatic failure, although Mycamine has also been implicated with some liver toxicity as well but less reports compared to Fluconazole) - should have at least 2 weeks of antifungal therapy - repeat cx from 10/11 are negative; will repeat septic work up again today will continue to monitor clinically patient continues to be in critical condition and overall prognosis is poor - patient has been made DNR
--- NOTE | 2016-10-14 12:01 | RAD ---
HISTORY: rule out pneumonia COMPARISON: 10/11/2016 FINDINGS: LUNGS: No active pulmonary disease. PLEURA: No significant pleural effusion identified, no pneumothorax apparent. CARDIOVASCULAR: Normal. OSSEOUS STRUCTURES: No significant abnormalities. VISUALIZED UPPER ABDOMEN: Normal. OTHER FINDINGS: Endotracheal and nasogastric tube unchanged IMPRESSION: No active disease.
--- NOTE | 2016-10-14 13:23 | PN ---
DATE: 10/14/2016 SUBJECTIVE: The patient is seen and examined at the bedside. He appears to be comfortable, however, was put back on PRVC 400/26/5/40%. He is not on any pressors or any sedation. He is tracking object with his eyes, however, not following commands otherwise. PHYSICAL EXAMINATION VITAL SIGNS: Temperature 99, heart rate 99, oxygen saturation 98%, end-tidal CO2 on the monitor of 32, blood pressure 121/69. He is trophic feeds, which he appears to tolerate well. HEENT: Head and neck atraumatic. LUNGS: Clear to auscultation bilaterally. HEART: Regular rate and rhythm. S1 and S2 normal. ABDOMEN: Soft, nontender, and nondistended. MUSCULOSKELETAL: No C/C/E. NEUROLOGIC: The patient was not observed moving his upper or lower extremities, however, he is tracking objects with his eyes. SKIN: Moist. PSYCHIATRY: The patient appears to be comfortable. LABORATORY DATA: WBC 8.4, hemoglobin 8.8, platelet count 47. Sodium 148; potassium 3.4, chloride 116, carbon dioxide 21, BUN 98, creatinine 3.1 down to 2.2, ammonia level 42 from 39. Albumin 2.3, pH is 7.3, up from 7.16, pCO2 43, pO2 95 on 40% FiO2. MEDICATIONS: DuoNeb every 6, folic acid, lactulose, Ativan p.r.n., meropenem, Reglan p.r.n., micafungin, midodrine, Protonix, Xifaxan, normal saline 75 mL per hour, thiamine, vancomycin p.o. ASSESSMENT AND PLAN: This 56-year-old gentleman with ventilator-dependent respiratory failure, who is recovering from septic shock due to fungemia. Currently, he is on micafungin and ID service has followed him as well. He is off sedation and daily weaning trials are in order. 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 We will continue with protective lung ventilation strategy, conservative fluid and oxygen management. We will contact physical therapy to see if the patient would be a candidate for any type of early mobilization including passive motion range. We will continue to talk to family about goals of care. The patient tolerates trophic feeds well. We will continue with head of bed elevated at 135 degrees and GI prophylaxis. His renal function plateaued and appears to be slightly improving. We will try to avoid nephrotoxic medications, but not an expense of treatment for Lyme disease. We will try to maintain blood glucose within 140 to 180 range with international trial. We will continue with GI and DVT prophylaxis. Hemodynamically, the patient is stable. Neurologic-ventura, the patient appears to have toxic metabolic syndrome superimposed on to a component of hepatic encephalopathy. He did not show any seizure activity. We will continue with lactulose and rifaximin. We will continue to avoid benzodiazepines and opioids. We will continue to optimize his circadian and sleep pattern. ccm time 40 min Otto Hinojosa MD [email or web address]
--- NOTE | 2016-10-14 14:04 | CP.PCM.PN ---
<Justo Torres - Last Filed: 10/14/16 14:16> Subjective - Date & Time of Evaluation Date of Evaluation: 10/14/16 Time of Evaluation: 06:21 - Subjective Subjective: Patient seen and examined at bedside. Per nursing not the patient had overnight fever. Patient remains on PS/CPAP and no other overnight events took place. Unable to obtain ROS due to patients current condition. Objective - Vital Signs/Intake and Output Vital Signs (last 24 hours): Temp Pulse Resp BP Pulse Ox 99.0 F 88 35 H 120/52 L 40 L 10/14/16 06:00 10/14/16 06:00 10/14/16 08:18 10/14/16 06:00 10/14/16 08:18 Intake and Output: 10/14/16 10/14/16 06:59 18:59 Intake Total 1700 Output Total 950 Balance 750 - Medications Medications: Current Medications Albuterol/Ipratropium (Duoneb 3 Mg/0.5 Mg (3 Ml) Ud) 3 ml IH [id number] [facility] Last Admin: 10/14/16 13:32 Dose: 3 ml Artificial Tears (Artificial Tears Opht Oint) 1 gm OU Q6 [facility] Last Admin: 10/14/16 05:10 Dose: 1 gm Folic Acid (Folic Acid) 1 mg PO DAILY [facility] Last Admin: 10/14/16 09:09 Dose: 1 mg Micafungin Sodium 100 mg/ (Sodium Chloride) 100 mls @ 100 mls/hr IV DAILY [facility] PRN Reason: Protocol Stop: 10/17/16 10:01 Last Admin: 10/14/16 09:09 Dose: 100 mls/hr Sodium Chloride (Sodium Chloride 0.9%) 1,000 mls @ 75 mls/hr IV .[id number] [facility] Last Admin: 10/14/16 11:01 Dose: 75 mls/hr Meropenem 500 mg/ Sodium (Chloride) 100 mls @ 100 mls/hr IVPB Q12 [facility] PRN Reason: Protocol Stop: 10/21/16 07:07 Last Admin: 10/14/16 08:59 Dose: 100 mls/hr Lactulose (Enulose) 20 gm PO TID [facility] Last Admin: 10/14/16 09:08 Dose: 20 gm Lorazepam (Ativan) 2 mg IVP Q2H PRN; Protocol PRN Reason: Agitation Last Admin: 10/07/16 05:33 Dose: 2 mg Metoclopramide HCl (Reglan) 10 mg IVP Q6H PRN PRN Reason: Other Last Admin: 10/09/16 17:13 Dose: 10 mg Midodrine (Proamatine) 5 mg PO TID [facility] Last Admin: 10/14/16 09:11 Dose: 5 mg Pantoprazole Sodium (Protonix Inj) 40 mg IVP DAILY [facility] Last Admin: 10/14/16 09:13 Dose: 40 mg Rifaximin (Xifaxan) 550 mg PO BID [facility]I PRN Reason: Protocol Last Admin: 10/14/16 09:11 Dose: 550 mg Thiamine HCl (Vitamin B1 Tab) 100 mg PO DAILY [facility] Last Admin: 10/14/16 09:11 Dose: 100 mg Vancomycin HCl (Vancocin 25 Mg/Ml (Oral Use)) 125 mg PO Q6H [facility] PRN Reason: Protocol Last Admin: 10/14/16 11:01 Dose: 125 mg Vitamin A (Vitamin A & D Oint Ud Foilpak) 1 ea TOP DAILY [facility] Last Admin: 10/14/16 09:13 Dose: 1 ea Vitamin B Complex/Vit C/Folic Acid (Nephro-Mariann) 1 tab PO 0800 [facility] Last Admin: 10/14/16 09:11 Dose: 1 tab - Labs Labs: 10/14/16 08:00 10/14/16 08:00 PT 16.1 Seconds (9.9-11.8) H 10/10/16 11:48 INR 1.49 (0.93-1.08) H 10/10/16 11:48 APTT 30.3 Seconds (23.7-30.8) 10/10/16 11:48 - Head Exam Head Exam: ATRAUMATIC, NORMAL INSPECTION, NORMOCEPHALIC - Eye Exam Eye Exam: EOMI, Normal appearance, PERRL Pupil Exam: PERRL Additional comments: Possible tracking noted on today's examination. - ENT Exam ENT Exam: Mucous Membranes Moist - Neck Exam Neck Exam: Normal Inspection - Respiratory Exam Respiratory Exam: Clear to Ausculation Bilateral, NORMAL BREATHING PATTERN. absent: Rales, Rhonchi - Cardiovascular Exam Cardiovascular Exam: REGULAR RHYTHM, RRR, +S1, +S2. absent: Gallop, Rubs - GI/Abdominal Exam GI & Abdominal Exam: Soft, Normal Bowel Sounds. absent: Rigid, Tenderness, Organomegaly - Exam Exam: Scrotal Swelling - Neurological Exam Neurological Exam: Altered, CN II-XII Intact. absent: Alert, Awake, Oriented x3 - Skin Skin Exam: Mottled Assessment and Plan - Assessment and Plan (Free Text) Assessment: 56 year old male with an initial presentation of AMS in the setting of persistent hypokalemia and alcohol withdrawal, which resolved. Patient was then intubated after he was found to be in hypercapnic respiratory failure and subsequently became hemodynamically unstable requiring dual vasopressor support. His presentation is consistent with distributive shock likely from either acute decompensated chronic liver failure or sepsis from C. Diff colitis , with multiorgan dysfunction syndrome including renal failure, encephalopathy and respiratory failure. Patient is no longer requiring vasopressin or levophed for hemodynamic support but is on midodrine. Patient is currently unresponsive to verbal or tactile stimuli off of sedation. Patient is has been transitioned from PRVC to PS/CPAP. Plan: Pulmonary: Hypercapnic Respiratory Failure -Patient intubated on 10/05. Today: FiO2= 40%, RR=26, PEEP+5, and Tidal Volume + 400 ml, O2 saturation+96% -ABG: pCO2+43, pO2+90, pH+7.29 -Patient hypotension slightly improved to 115/70 and remains off pressors. -Cardio following -CXR shows no active pulmonary disease. -Continue to monitor vital signs. -Continue Duonebs 3ml IHQ6 HRESP for wheezing symptoms. Renal: Acute renal failure most likely secondary to glomerulonephritis -BUN 98(up from 93) and Creatinine is 3.1(down from 3.2). -Urine total protein-897 and Urine Microalbumin >950. -Nephrology consult note appreciated. -No acute indications for HD at this time. Urine output decreased today to 675 ml. -Nephrology consult note appreciate- Hematology: Thrombocytopenia -Plt count now 47 (down from 75 on 10/22) s/p 4 units of Platelets transfused. Continue to monitor plt count and consider another transfusion if patient drops below 20. -Patient currently has no active bleeds. Monitor for bleeding. EtOh Withdrawal -Continue Ativan 2mg IVP Q2H PRN for alcohol withdrawal symptoms. -Continue Thiamine, Folic acid and MV supplementation Ascites -s/p ascitic fluid removed on 10/05. -culture growth negative after 166 hours. GI: Hepatic encephalopathy -Continue Rifaxamin, Lactulose -Rectal tube in place and currently draining 1175 cc over the past 24 hours. -Continue with Vital AF tube feedings as 25ml/hr and increase by 5ml/hr as tolerated to a maximum rate of 30mls/hr. Anemia -Stool occult blood positive on 10/05. -Hgb is 8.8(down from 10.2) and Hct is 27.5 (down from 32.4). Patient is s/p 3 units leukocyte reduced PRBC's. Continue to monitor H/H levels with serial CBC' s. Consider Transfusion if Hgb falls below 7. Sepsis/Fungemia -Grew Kamille Albicans -Continue Micafungin (renal dosing) -Continue Merrem, Vancomycin C Diff infection. -Continue Vancomycin Hypokalemia -Potassium today 3.4. Patient was repleted with 2 10ml K Riders IV yesterday. Will consider another K rider today.Will continue to monitor electrolyte levels with serial cmp's. GI ppx -Continue Protonix DVT ppx. <Zoe GALLEGOS,Jacob - Last Filed: 10/16/16 14:36> Objective - Vital Signs/Intake and Output Vital Signs (last 24 hours): Temp Pulse Resp BP Pulse Ox 101.1 F H 109 H 33 H 102/67 96 10/16/16 06:00 10/16/16 06:00 10/16/16 08:18 10/16/16 06:00 10/16/16 08:18 Intake and Output: 10/16/16 10/16/16 06:59 18:59 Intake Total 1100 Output Total 1425 Balance -325 - Medications Medications: Current Medications Albuterol/Ipratropium (Duoneb 3 Mg/0.5 Mg (3 Ml) Ud) 3 ml IH [id number] [facility] Last Admin: 10/16/16 13:24 Dose: 3 ml Artificial Tears (Artificial Tears Opht Oint) 1 gm OU Q6 [facility] Last Admin: 10/16/16 12:34 Dose: 1 gm Folic Acid (Folic Acid) 1 mg PO DAILY [facility] Last Admin: 10/16/16 10:58 Dose: 1 mg Micafungin Sodium 100 mg/ (Sodium Chloride) 100 mls @ 100 mls/hr IV DAILY [facility] PRN Reason: Protocol Stop: 10/17/16 10:01 Last Admin: 10/16/16 11:00 Dose: 100 mls/hr Meropenem 500 mg/ Sodium (Chloride) 100 mls @ 100 mls/hr IVPB Q12 [facility]ONI PRN Reason: Protocol Stop: 10/21/16 07:07 Last Admin: 10/16/16 11:01 Dose: 100 mls/hr Gentamicin Sulfate 270 mg/ (Sodium Chloride) 106.75 mls @ 106.75 mls/hr IVPB ONCE [facility] Last Admin: 10/16/16 12:00 Dose: 106.75 mls/hr Doxycycline Hyclate 100 mg/ (Sodium Chloride) 100 mls @ 100 mls/hr IVPB Q12 [facility]ONI PRN Reason: Protocol Stop: 10/23/16 10:01 Last Admin: 10/16/16 11:00 Dose: 100 mls/hr Dextrose (Dextrose 5% In Water 1000 Ml) 1,000 mls @ 150 mls/hr IV .Q6H40M [facility]ONI Sodium Chloride (Sodium Chloride 0.9%) 1,000 mls @ 50 mls/hr IV .Q20H [facility]ON[facility] Linezolid (Zyvox 600mg/300ml D5w) 600 mg in 300 mls @ 200 mls/hr IVPB Q12 [facility] PRN Reason: Protocol Stop: 10/23/16 10:46 Last Admin: 10/16/16 12:06 Dose: 200 mls/hr Lactulose (Enulose) 20 gm PO TID [facility] Last Admin: 10/16/16 10:57 Dose: 20 gm Lorazepam (Ativan) 2 mg IVP Q2H PRN; Protocol PRN Reason: Agitation Last Admin: 10/07/16 05:33 Dose: 2 mg Metoclopramide HCl (Reglan) 10 mg IVP Q6H PRN PRN Reason: Other Last Admin: 10/09/16 17:13 Dose: 10 mg Midodrine (Proamatine) 5 mg PO TID [facility] Last Admin: 10/16/16 10:40 Dose: 5 mg Pantoprazole Sodium (Protonix Inj) 40 mg IVP DAILY [facility] Last Admin: 10/16/16 10:40 Dose: 40 mg Thiamine HCl (Vitamin B1 Tab) 100 mg PO DAILY [facility] Last Admin: 10/16/16 10:00 Dose: 100 mg Vancomycin HCl (Vancocin 25 Mg/Ml (Oral Use)) 125 mg PO Q6H [facility] PRN Reason: Protocol Last Admin: 10/16/16 11:02 Dose: 125 mg Vitamin A (Vitamin A & D Oint Ud Foilpak) 1 ea TOP DAILY [facility] Last Admin: 10/16/16 10:57 Dose: 1 ea Vitamin B Complex/Vit C/Folic Acid (Nephro-Mariann) 1 tab PO 0800 [facility] Last Admin: 10/16/16 10:50 Dose: 1 tab - Labs Labs: 10/16/16 07:30 10/16/16 07:30 PT 16.1 Seconds (9.9-11.8) H 10/10/16 11:48 INR 1.49 (0.93-1.08) H 10/10/16 11:48 APTT 30.3 Seconds (23.7-30.8) 10/10/16 11:48 Attending/Attestation - Attestation I have personally seen and examined this patient.: Yes I have fully participated in the care of the patient.: Yes I have reviewed all pertinent clinical information, including history, physical exam and plan: Yes Notes (Text): 10/16/16 14:32 Patient was seen and examined with medical administrative technician. 56 year old male with history of alcohol abuse, cirrhosis who was admitted with AMS, was found to be have alcohol intoxication and sepsis,was intubated later on. . He remains intubated and is currently off of sedation , having minimal response now , but mental status is poor. He was also found to have oliguric acute renal failure ,anemia ,thrombocytopenia, SBP,HCAP,~cdiff~and fungemia~ Rectal tube is in. Patient is DNR/ DNI1. Prognosis is guarded.
--- NOTE | 2016-10-14 14:16 | PN ---
DATE: 10/14/[address] Mcnulty. SUBJECTIVE: The patient is seen in the ICU. He is on mechanical ventilation, FIO2 of 40%. He remains unresponsive. Eyes are open but not following any commands, and not responding. He is receiving normal saline at 75 cc/hour, on multiple antibiotics including meropenem 500 q. 12 hours, micafungin 100 mg daily, also receiving oral vancomycin for Clostridium difficile. PHYSICAL EXAMINATION GENERAL: A middle-aged male lying in bed in the ICU on mechanical ventilation. VITAL SIGNS: Blood pressure of 120/52, heart rate of 88, respiratory rate of 35, temperature of 99, and T-max is 101.3. HEENT: Normocephalic and atraumatic. Pupils unequal and sluggish. NECK: Supple and no JVD. LUNGS: Bilateral equal entry. No rales and no rhonchi. CARDIAC: S1 and S2. Regular rate and rhythm. No murmur and no rub. ABDOMEN: Soft, nondistended, nontender, and bowel sounds present. EXTREMITIES: No lower extremity edema, positive rectal tube. INTAKE AND OUTPUT: 3200/1850. LABORATORY DATA: 1. WBC of 8.4, hemoglobin of 8.8, hematocrit of 27.5, and platelets of 47. 2. Sodium of 148, potassium of 3.4, chloride of 116, CO2 of 21, BUN of 98, creatinine of 3.1, glucose of 108, and calcium of 7.4. Total bilirubin of 2.1, AST of 79, ALT of 56, albumin of 2.3, corrected calcium is 8.5. Stool occult is positive. Vancomycin level is 12.6. PEEWEE negative. Complement C4 low at less than 8 and C3 low at 40. Hepatitis C antibody reactive. RNA detected. 3. Urine culture showing yeast on 10/05/2016 and blood culture with Mellisa on 10/05/2016. Repeat blood cultures and urine culture no growth. ASSESSMENT AND PLAN 1. Acute kidney injury, renal function plateauing, slowly improving. 2. Pancytopenia. 3. Hypokalemia. 4. Hypocalcemia. 5. Candidemia and Candiduria. 6. Respiratory failure. 7. Hepatitis C. 8. Alcoholic hepatitis. 9. Cirrhosis of the liver. 10. Proteinuria/hypocomplementemia,?membranoproliferative glomerulonephritis. 11. Clostridium difficile colitis. PLAN 1. The patient is critically ill, with the vent dependent respiratory failure at this time. Acute renal failure, multiorgan dysfunction. 2. Replace potassium. 3. Replete calcium. 4. Check intact PTH and vitamin D. 5. Continue antibiotics as per ID recommendations. 6. Continue antifungals. 7. Case discussed with Dr. Hinojosa at bedside at length. Palliative Care/comfort care to be discussed with family More than 35 minutes was spent in the care of this critically ill patient.. Lexi Jacobs MD
[2016-10-15] MEDS: Mineral Oil/Petrolatum Opht Oint(3.5 gm) OU SCH ×4 (00:20→18:39)
[2016-10-15] MEDS: Sodium Chloride 0.9% 1,000 ML IV SCH (01:24)
[2016-10-15] MEDS: Albuterol-Ipratrop 3 mg / 0.5 (3 ml) UD IH SCH ×4 (01:26→19:24)
[2016-10-15 05:34] LABS: BASO # 0.01 K/mm3 (0.0-2.0); BASO % 0.1 % (0.0-3.0); EOS % 0.2 % (1.5-5.0); GRAN # 8.06 (1.4-6.5); HEMATOCRIT 29.6 % (42.0-52.0); LYMPH # 1.8 (1.2-3.4); LYMPH % 17.1 % (22.0-35.0); MEAN CELL VOLUME 102.1 fl (80.0-105.0); MEAN CORPUSCULAR HEMOGLOBIN 32.1 pg (25.0-35.0); MEAN CORPUSCULAR HGB CONC 31.4 g/dl (31.0-37.0); MEAN PLATELET VOLUME 12.5 fl (7.0-11.0); MONO # 0.5 (0.1-0.6); MONO % 4.6 % (1.0-6.0); RED CELL DISTRIBUTION WIDTH 16.3 % (11.5-14.5); WHITE BLOOD COUNT 10.3 10^3/ul (4.5-11.0)
[2016-10-15] MEDS: Vancomycin 25 MG/ML PO SCH ×4 (05:52→23:48)
[2016-10-15 06:05] LABS: ALB/GLOB RATIO 0.8 (1.1-1.8); BILIRUBIN,TOTAL 1.9 mg/dL (0.2-1.3); CALCIUM 7.5 mg/dL (8.4-10.5); POTASSIUM 3.6 mmol/L (3.6-5.0); TOTAL PROTEIN 5.2 g/dL (5.8-8.3)
--- NOTE | 2016-10-15 09:02 | PN ---
DATE: 10/15/2016 SUBJECTIVE: The patient is seen at the bedside. He is not tracking objects with eyes as he was doing yesterday. He is a bit more lethargic today. He is on pressure support 10/5 with FiO2 40%. However, his respiratory rate is 35. His tidal volume about 340 to 370 and RSBI between 104 to 110. He is not on any pressors. PHYSICAL EXAMINATION: VITAL SIGNS: His blood pressure is 111/54 with mean arterial pressure 79, heart rate 89, oxygen saturation 96% on 40% FiO2, end-tidal CO2 on the monitor is 38, temperature 100.6. He is on enteral feeds with rate 45 mL per hour. HEENT: Head and neck atraumatic. LUNGS: Few rhonchi on the left side. HEART: Regular rate and rhythm. S1 and S2 distant. ABDOMEN: Soft, nontender, and nondistended (he tolerates enteral nutrition without residual yesterday). MUSCULOSKELETAL: No C/C/E. NEUROLOGIC: The patient was not observed moving upper or lower extremities spontaneously. SKIN: Moist. PSYCHIATRY: The patient is a bit more somnolent today. LABORATORY DATA: WBC 10.3, hemoglobin 9.3, platelet count 64. Sodium 151 (free water flushes 200 mL every 6 hours started), chloride 120, carbon dioxide 21, BUN 102, creatinine 2.9, glucose 103. AST 88, ALT 57, bilirubin 1.9. MEDICATIONS: DuoNeb every 6 hours, folic acid, lactulose 20 g p.o. t.i.d., Ativan p.r.n., meropenem, Reglan p.r.n., micafungin, midodrine, Protonix, Xifaxan, normal saline 75 mL per hour. ASSESSMENT AND PLAN: This is a 56-year-old gentleman with ventilator-dependent respiratory failure in the setting of end-stage liver disease, recovering from septic shock secondary to fungemia (Mellisa albicans). The patient is ongoing daily weaning trials and he is off sedation presently. On volume control mode of ventilation. We are adhering to protective lung ventilation strategy, conservative fluid and oxygen management. Head of bed elevated to >35 degrees. The patient is hemodynamically stable. His renal function is somewhat improving. He tolerates enteral nutrition well and currently on 45 mL per hour enteral feeds, he is on lactulose and rifaximin for hepatic encephalopathy. His latest ammonia level was 42. We will follow that as well. His sodium started to climb up a little bit. We will stop normal saline and start free water flushes through nasogastric tube. The patient has low-grade fever. ID service is following him. Repeated septic workup will be followed. He is on micafungin and meropenem. Renal function is somewhat improving. Nevertheless, BUN is climbing, which may contribute to his increased altered mental status and somnolence. We will discuss case with Nephrology service today. Endocrine ventura, we will maintain blood glucose within 140 to 180 range. We will continue with the deep venous thrombosis and gastrointestinal prophylaxis. ccm time 40 min Otto Hinojosa MD [id number]
--- NOTE | 2016-10-15 09:09 | RAD ---
HISTORY: pneumonia COMPARISON: 10/14/2016 FINDINGS: LUNGS: There is a patchy infiltrate in the right lower lobe. PLEURA: No significant pleural effusion identified, no pneumothorax apparent. CARDIOVASCULAR: Normal. OSSEOUS STRUCTURES: No significant abnormalities. VISUALIZED UPPER ABDOMEN: Normal. OTHER FINDINGS: The endotracheal and nasogastric tubes are in satisfactory position. IMPRESSION: Patchy infiltrate in the right lower lobe
--- NOTE | 2016-10-15 09:49 | CP.PCM.PN ---
Subjective - Date & Time of Evaluation Date of Evaluation: 10/15/16 Time of Evaluation: 08:50 - Subjective Subjective: Patient continues to be on the ventilator but is on a weaning trial. Still having fevers. Objective - Vital Signs/Intake and Output Vital Signs (last 24 hours): Temp Pulse Resp BP Pulse Ox 100.6 F H 97 H 35 H 105/60 99 10/15/16 08:00 10/15/16 08:00 10/14/16 08:18 10/15/16 08:00 10/15/16 08:00 Intake and Output: 10/15/16 10/15/16 06:59 18:59 Intake Total 1840 Output Total 1400 Balance 440 - Medications Medications: Current Medications Albuterol/Ipratropium (Duoneb 3 Mg/0.5 Mg (3 Ml) Ud) 3 ml IH [id number] [facility] Last Admin: 10/15/16 07:47 Dose: 3 ml Artificial Tears (Artificial Tears Opht Oint) 1 gm OU Q6 [facility]ONI Last Admin: 10/15/16 05:58 Dose: 1 gm Folic Acid (Folic Acid) 1 mg PO DAILY [facility] Last Admin: 10/14/16 09:09 Dose: 1 mg Micafungin Sodium 100 mg/ (Sodium Chloride) 100 mls @ 100 mls/hr IV DAILY [facility] PRN Reason: Protocol Stop: 10/17/16 10:01 Last Admin: 10/14/16 09:09 Dose: 100 mls/hr Meropenem 500 mg/ Sodium (Chloride) 100 mls @ 100 mls/hr IVPB Q12 [facility]ONI PRN Reason: Protocol Stop: 10/21/16 07:07 Last Admin: 10/14/16 21:20 Dose: 100 mls/hr Lactulose (Enulose) 20 gm PO TID [facility] Last Admin: 10/14/16 19:02 Dose: 20 gm Lorazepam (Ativan) 2 mg IVP Q2H PRN; Protocol PRN Reason: Agitation Last Admin: 10/07/16 05:33 Dose: 2 mg Metoclopramide HCl (Reglan) 10 mg IVP Q6H PRN PRN Reason: Other Last Admin: 10/09/16 17:13 Dose: 10 mg Midodrine (Proamatine) 5 mg PO TID [facility] Last Admin: 10/14/16 19:02 Dose: 5 mg Pantoprazole Sodium (Protonix Inj) 40 mg IVP DAILY [facility] Last Admin: 10/14/16 09:13 Dose: 40 mg Rifaximin (Xifaxan) 550 mg PO BID [facility] PRN Reason: Protocol Last Admin: 10/14/16 19:02 Dose: 550 mg Thiamine HCl (Vitamin B1 Tab) 100 mg PO DAILY [facility] Last Admin: 10/14/16 09:11 Dose: 100 mg Vancomycin HCl (Vancocin 25 Mg/Ml (Oral Use)) 125 mg PO Q6H [facility] PRN Reason: Protocol Last Admin: 10/15/16 05:52 Dose: 125 mg Vitamin A (Vitamin A & D Oint Ud Foilpak) 1 ea TOP DAILY [facility] Last Admin: 10/14/16 09:13 Dose: 1 ea Vitamin B Complex/Vit C/Folic Acid (Nephro-Mariann) 1 tab PO 0800 [facility] Last Admin: 10/14/16 09:11 Dose: 1 tab - Labs Labs: 10/15/16 05:20 10/15/16 05:20 PT 16.1 Seconds (9.9-11.8) H 10/10/16 11:48 INR 1.49 (0.93-1.08) H 10/10/16 11:48 APTT 30.3 Seconds (23.7-30.8) 10/10/16 11:48 - Constitutional Appears: Other (on the ventilator, awake but somewhat lethargic) - Head Exam Head Exam: NORMAL INSPECTION - ENT Exam Additional comments: ET tube in place - Neck Exam Neck Exam: absent: Meningismus - Respiratory Exam Respiratory Exam: Decreased Breath Sounds (with some crackles at the bases) - Cardiovascular Exam Cardiovascular Exam: +S1, +S2 - GI/Abdominal Exam GI & Abdominal Exam: Soft. absent: Tenderness Assessment and Plan - Assessment and Plan (Free Text) Plan: Assessment severe sepsis with ventilator-dependent respiratory failure, respiratory acidosis and worsening acute renal failure (slowly improving) probably due to C. albicans fungemia and healthcare-associated pneumonia on top of colitis or spontaneous bacterial peritonitis in this patient with liver cirrhosis probably from alcohol abuse; S/P paracentesis; initially presented with delerium tremens ; patient has new onset fevers, need to rule out new onset sepsis chronic alcohol abuse with history of liver cirrhosis and esophageal varices significant smoking history Plan continue intermittent Vancomycin IV and Merrem (day 11) - target 10 days of therapy, PO Vancomycin (day 13) -target 10-14 days of therapy and Mycamine ( repeat blood cx on 10/08/2016 are negative - we are cautious not to use Fluconazole in this patient with worsening hepatic failure, although Mycamine has also been implicated with some liver toxicity as well but less reports compared to Fluconazole) - should have at least 2 weeks of antifungal therapy - repeat cx from 10/11 are negative; repeat septic work up from yesterday showing gram negative bacilli in the sputum - will await results of this; will give a dose of IV gentamicin will continue to monitor clinically patient continues to be in critical condition and overall prognosis is poor - patient has been made DNR
[2016-10-15] MEDS ORDERED: Gentamicin 80 mg/2mL Inj. IVPB ONE (10:00)
[2016-10-15] MEDS: Micafungin 100 MG in Sodium Chloride 0.9% 100 ML IV SCH (10:19)
[2016-10-15] MEDS: Meropenem 500 MG in Sodium Chloride 0.9% 100 ML IVPB SCH ×2 (10:26→22:59)
[2016-10-15] MEDS: Vitamins A & D Oint UD Foilpak TOP SCH (11:12)
[2016-10-15] MEDS: Multivitamin Vitamin B Complex (Nephro-Vite) Tab PO SCH (11:12)
[2016-10-15] MEDS: Gentamicin 270 MG in Sodium Chloride 0.9% 100 ML IVPB SCH (11:12)
--- NOTE | 2016-10-15 12:06 | CP.PCM.PN ---
Subjective - Date & Time of Evaluation Date of Evaluation: 10/15/16 (') Time of Evaluation: 07:45 - Subjective Subjective: patient seen and examined in ICU. Currently on ventilator. Not responding to verbal commands. Off sedation. Off pressors. eyes open. Vyas catheter with clear urine. Rectal tube present. Getting tube feedings. Objective - Vital Signs/Intake and Output Vital Signs (last 24 hours): Temp Pulse Resp BP Pulse Ox 100.6 F H 97 H 35 H 108/61 98 10/15/16 11:00 10/15/16 11:00 10/14/16 08:18 10/15/16 11:00 10/15/16 11:00 Intake and Output: 10/15/16 10/15/16 06:59 18:59 Intake Total 1840 Output Total 1400 Balance 440 - Medications Medications: Current Medications Albuterol/Ipratropium (Duoneb 3 Mg/0.5 Mg (3 Ml) Ud) 3 ml IH [id number] [facility]ONI Last Admin: 10/15/16 07:47 Dose: 3 ml Artificial Tears (Artificial Tears Opht Oint) 1 gm OU Q6 [facility] Last Admin: 10/15/16 05:58 Dose: 1 gm Folic Acid (Folic Acid) 1 mg PO DAILY [facility]ON[facility] Last Admin: 10/15/16 11:12 Dose: 1 mg Micafungin Sodium 100 mg/ (Sodium Chloride) 100 mls @ 100 mls/hr IV DAILY [facility] PRN Reason: Protocol Stop: 10/17/16 10:01 Last Admin: 10/15/16 10:19 Dose: 100 mls/hr Meropenem 500 mg/ Sodium (Chloride) 100 mls @ 100 mls/hr IVPB Q12 [facility] PRN Reason: Protocol Stop: 10/21/16 07:07 Last Admin: 10/15/16 10:26 Dose: 100 mls/hr Gentamicin Sulfate 270 mg/ (Sodium Chloride) 106.75 mls @ 106.75 mls/hr IVPB ONCE [facility] Last Admin: 10/15/16 11:12 Dose: 106.75 mls/hr Lactulose (Enulose) 20 gm PO TID [facility]ONI Last Admin: 10/15/16 11:12 Dose: 20 gm Lorazepam (Ativan) 2 mg IVP Q2H PRN; Protocol PRN Reason: Agitation Last Admin: 10/07/16 05:33 Dose: 2 mg Metoclopramide HCl (Reglan) 10 mg IVP Q6H PRN PRN Reason: Other Last Admin: 10/09/16 17:13 Dose: 10 mg Midodrine (Proamatine) 5 mg PO TID [facility] Last Admin: 10/15/16 11:12 Dose: 5 mg Pantoprazole Sodium (Protonix Inj) 40 mg IVP DAILY [facility] Last Admin: 10/15/16 11:12 Dose: 40 mg Rifaximin (Xifaxan) 550 mg PO BID [facility]I PRN Reason: Protocol Last Admin: 10/15/16 11:11 Dose: 550 mg Thiamine HCl (Vitamin B1 Tab) 100 mg PO DAILY [facility] Last Admin: 10/15/16 11:12 Dose: 100 mg Vancomycin HCl (Vancocin 25 Mg/Ml (Oral Use)) 125 mg PO Q6H [facility] PRN Reason: Protocol Last Admin: 10/15/16 05:52 Dose: 125 mg Vitamin A (Vitamin A & D Oint Ud Foilpak) 1 ea TOP DAILY [facility] Last Admin: 10/15/16 11:12 Dose: 1 ea Vitamin B Complex/Vit C/Folic Acid (Nephro-Mariann) 1 tab PO 0800 [facility] Last Admin: 10/15/16 11:12 Dose: 1 tab - Labs Labs: 10/15/16 05:20 10/15/16 05:20 PT 16.1 Seconds (9.9-11.8) H 10/10/16 11:48 INR 1.49 (0.93-1.08) H 10/10/16 11:48 APTT 30.3 Seconds (23.7-30.8) 10/10/16 11:48 - Constitutional Appears: Non-toxic - Head Exam Head Exam: NORMAL INSPECTION - Eye Exam Pupil Exam: PERRL - ENT Exam ENT Exam: Mucous Membranes Dry Additional comments: ET tube and NG tube present - Respiratory Exam Respiratory Exam: NORMAL BREATHING PATTERN - Cardiovascular Exam Cardiovascular Exam: REGULAR RHYTHM - GI/Abdominal Exam GI & Abdominal Exam: Normal Bowel Sounds. absent: Guarding, Rigid, Rebound Additional comments: mildly distended/mild ascites - Exam Additional comments: Vyas catheter with yellow urine. - Neurological Exam Additional comments: not responding to verbal stimulus. - Psychiatric Exam Additional comments: intubated Assessment and Plan - Assessment and Plan (Free Text) Assessment: Patient is a 56 year old male with an initial presentation of AMS in the setting of persistent hypokalemia and alcohol withdrawal now intubated 1.Respiratory Failure; Patient is intubated on 10/05. Today: FiO2= 40%, PEEP+5, and Tidal Volume +400 ml, O2 saturation+96% not able to wean the patient secondary to mental status. patient might need tracheostomy. Case discussed with double head machine operator in detail. 2.Acute renal failure most likely secondary to glomerulonephritis.BUN is 102. Creatinine is 2.9. urine output is improving. monitor closely. Nephrology evaluation appreciated. 3.Thrombocytopenia;secondary to alcohol-induced bone marrow suppression. Platelet improved from 47-64. bleeding precautions in place. 4.EtOh abuse; withdrawal symptoms resolved. Ativan as needed. 5.Ascites; s/p ascitic fluid removed on 10/05. culture growth negative so far. 6.GI: Hepatic encephalopathy Continue Rifaxamin, Lactulose Continue with Vital AF tube feedings as 45ml/hr. 7.Anemia:no active bleeding. HB is 9.3. Patient is s/p 3 units leukocyte reduced PRBC's. 8.Sepsis/Fungemia; Grew Kamille Albicans Continue Micafungin (renal dosing) Continue Merrem, Vancomycin 9.C Diff infection. on po Vancomycin GI/DVT prophylaxis with SCD. prognosis is poor.
--- NOTE | 2016-10-15 17:36 | CON ---
DATE: 10/15/2016 REASON FOR CONSULTATION: Ventilator-dependent respiratory failure. Possible need for tracheotomy. HISTORY OF PRESENT ILLNESS: This is a 56-year-old male with history of hepatitis C, alcohol abuse and cirrhosis of the liver with esophageal varices. He presented to [facility] with anxiety and tremors after stopping drinking. He become somnolent in the hospital and subsequently intubated with severe respiratory acidosis. He was on pressure support as far as Levophed and vasopressin and had a paracentesis done. The patient remains on ventilator at this time therefore review of systems is non-obtainable secondary to ventilator status. The patient did have eye opening and has been responsive to pain stimuli. PAST MEDICAL HISTORY: Significant for hepatitis C, cirrhosis, history of seizures, history of cirrhosis, esophageal varices, history of depression for psychiatric component. SOCIAL HISTORY: Significant for alcohol abuse with cirrhosis of the liver. Positive tobacco and alcohol abuse. SURGICAL HISTORY: Banding of varices x2 and an endoscopy. FAMILY HISTORY: Father with liver cancer, mother with breast cancer, and sister with brain aneurysm. ALLERGIES: PSEUDOEPHEDRINE AND SULFA DRUGS AND PENICILLIN. CURRENT MEDICATIONS: Acetaminophen, DuoNeb, folic acid, hydrocortisone, and Precedex. The patient was on Meropenem, propofol, fentanyl, linezolid, potassium chloride, lactulose, lorazepam, pantoprazole, potassium, Sarafem, thiamine, vancomycin, vitamin A, and vitamin B. PHYSICAL EXAMINATION: VITAL SIGNS: Recent vital signs, 100.6 T-max. Remainder of vital signs within normal limits, stable. Of note, consent was obtained over the phone by . HEENT: Pupils, equals round and reactive to light accommodation. Nares; No rhinitis. OROPHARYNX: Positive for ET tube and oral gastric tube. No tumors or masses noted. NECK: Supple. No adenopathy. Trachea midline. No thyroid nodularity. LABORATORY DATA: Recent laboratory data shows a 10.3 WBC, hemoglobin 9.3, hematocrit 29.6, and platelet 16.3. ASSESSMENT: 1. Ventilator-dependent respiratory failure. 2. Cirrhosis of the liver. 3. Alcohol abuse. 4. Respiratory acidosis. PLAN: 1. Your ICU management. 2. Possible tracheotomy this coming week. Adrian Castaneda DO
--- NOTE | 2016-10-15 21:50 | PN ---
NEPHROLOGY FOLLOWUP NOTE SUBJECTIVE: A 56-year-old male with past medical history of hepatitis C, alcohol abuse with liver cirrhosis, initially admitted with alcohol withdrawal. Hospital course complicated by hypercapnic respiratory failure, sepsis and acute renal failure, nephrology following for the same. The patient still spiking fevers, still overbreathing the vent, but tolerating CPAP trial. PHYSICAL EXAMINATION: VITAL SIGNS: This morning, blood pressure 108/61, heart rate 97, respirations 35, temperature 100.6 and O2 sat 98% on 40% FiO2. GENERAL: Spontaneous movement of eyelids, no distress. HEENT: Moist mucous membranes. Mildly icteric. RESPIRATORY: Right-sided rhonchi present. No wheezes. No rales. HEART: S1, S2 normal. No murmurs. No gallops. No rubs. GASTROINTESTINAL: Abdomen soft, nondistended. GENITOURINARY: Vyas in place. No scrotal swelling. SKIN: Warm. No cyanosis. NEUROLOGIC: Not following commands. LABORATORY DATA: This morning, CBC, WBC 10.3, hemoglobin 9.3, hematocrit 29.6 and platelets 64. Chemistry panel; sodium 151, potassium 3.6, chloride 120, bicarb 21, BUN 102, creatinine 2.9, glucose 103, calcium 7.5, T-bili 1.9, albumin 2.3. Procalcitonin from yesterday 1.44. ASSESSMENT AND PLAN: 1. Acute renal failure, appears secondary to acute glomerulonephritis, likely secondary to hepatitis C; the patient is status post 1 dose of Solu-Medrol 1 g about 1 week ago, have been precluded from giving further doses due to fungemia and now with recurrent fevers. Renal function has improved over the past few days, no longer oliguric and renal function improving slowly, relatively stable volume status and no electrolyte imbalance that would require renal replacement therapy, holding off on dialysis for now. Once the patient is afebrile, we will consider restarting of Solu-Medrol. The patient ideally needs renal biopsy, but given severe comorbidities, this is likely not a viable option. 2. Acute hypercapnic respiratory failure. The patient still tachypneic but tolerating CPAP trial. The patient no longer requiring bicarb drip with stable bicarb on chemistry panel. Continue to monitor. 3. Sepsis. The patient still spiking fevers. Repeat cultures from urine and blood have been negative, currently on meropenem 500 mg q. 12 hours and micafungin 100 mg daily. The patient given dose of gentamicin today due to gram-negative rods in sputum culture. Recommend to avoid aminoglycosides as much as possible in the setting of severe renal insufficiency. 4. Hypernatremia. The patient is approximately 5 L free volume deficit. Started on free water flushes 200 mL q. 4 hours, but limited by increased residual feeds. We will start concurrent D5W at 75 mL/hour. 5. Metabolic acidosis, relatively mild in the setting of renal insufficiency. No need for bicarb replacement at this time, continue to monitor. 6. Hypokalemia, resolved with potassium at lower end of normal. Continue to monitor and replenish as needed. Rusty Mcnulty MD
[2016-10-16] MEDS: Mineral Oil/Petrolatum Opht Oint(3.5 gm) OU SCH ×5 (00:03→18:30)
[2016-10-16] MEDS ORDERED: Acetaminophen 650mg/20.3ml solution UD PO ONE (00:39)
[2016-10-16] MEDS: Albuterol-Ipratrop 3 mg / 0.5 (3 ml) UD IH SCH ×4 (01:10→19:28)
[2016-10-16 02:59] LABS: URINE BILIRUBIN NEGATIVE (NEGATIVE); URINE BLOOD LARGE (NEGATIVE); URINE GLUCOSE (UA) NEGATIVE (NEGATIVE); URINE KETONE NEGATIVE (NEGATIVE); URINE LEUKOCYTE ESTERASE NEGATIVE Leu/uL (NEGATIVE); URINE PROTEIN 100 mg/dL (<30 mg/dL); URINE UROBILINOGEN 0.2 E.U./dL (<1 E.U./dL)
[2016-10-16 03:06] LABS: URINE COLOR YELLOW (YELLOW)
[2016-10-16 03:07] LABS: URINE APPEARANCE SLIGHT-CLOUDY (CLEAR); URINE WBC 0 - 2 /hpf (0-6)
[2016-10-16 03:08] LABS: URINE BACTERIA MOD (NEG); URINE EPITHELIAL CELLS 0 - 2 /hpf (0-5)
[2016-10-16] MEDS: Vancomycin 25 MG/ML PO SCH ×3 (04:20→17:00)
[2016-10-16 07:42] LABS: BASO # 0.01 K/mm3 (0.0-2.0); BASO % 0.1 % (0.0-3.0); GRAN # 7.77 (1.4-6.5); GRAN % 78.3 % (50.0-68.0); HEMATOCRIT 28.6 % (42.0-52.0); LYMPH # 1.9 (1.2-3.4); LYMPH % 18.6 % (22.0-35.0); MEAN CELL VOLUME 104.4 fl (80.0-105.0); MEAN CORPUSCULAR HEMOGLOBIN 32.1 pg (25.0-35.0); MEAN CORPUSCULAR HGB CONC 30.8 g/dl (31.0-37.0); MEAN PLATELET VOLUME 12.5 fl (7.0-11.0); MONO # 0.3 (0.1-0.6); RED CELL DISTRIBUTION WIDTH 16.2 % (11.5-14.5); WHITE BLOOD COUNT 9.9 10^3/ul (4.5-11.0)
[2016-10-16 07:55] LABS: ALB/GLOB RATIO 0.7 (1.1-1.8); BILIRUBIN,TOTAL 1.8 mg/dL (0.2-1.3); CALCIUM 7.7 mg/dL (8.4-10.5); TOTAL PROTEIN 5.4 g/dL (5.8-8.3)
--- NOTE | 2016-10-16 08:48 | EEG ---
INTRODUCTION: This is a digitally recorded EEG monitoring using standard EEG montages. BACKGROUND RHYTHM: The EEG shows a background activity of 4 Hz delta activity. This EEG activity is present diffusely. No EEG reactivity was seen. ABNORMAL POTENTIALS: No spike, sharp waves or focal slowing was seen. PHOTIC STIMULATION AND HYPERVENTILATION: Photic stimulation and hyperventilation were not performed. IMPRESSION: Abnormal electroencephalogram. The above findings are consistent with severe bihemispheric cerebral dysfunction. No epileptiform activity seen in this EEG recording. Ame Hartmann MD
[2016-10-16] MEDS ORDERED: Sodium Chloride 0.9% 1,000 ML IV SCH (09:45)
--- NOTE | 2016-10-16 10:36 | CP.PCM.PN ---
Subjective - Date & Time of Evaluation Date of Evaluation: 10/16/16 Time of Evaluation: 09:20 - Subjective Subjective: Patient continues to be intubated, still having fevers, tachypneic, lethargic. Objective - Vital Signs/Intake and Output Vital Signs (last 24 hours): Temp Pulse Resp BP Pulse Ox 101.1 F H 109 H 34 H 102/67 92 L 10/16/16 06:00 10/16/16 06:00 10/15/16 07:48 10/16/16 06:00 10/16/16 06:00 Intake and Output: 10/16/16 10/16/16 06:59 18:59 Intake Total 1100 Output Total 1425 Balance -325 - Medications Medications: Current Medications Albuterol/Ipratropium (Duoneb 3 Mg/0.5 Mg (3 Ml) Ud) 3 ml IH [id number] [facility] Last Admin: 10/16/16 01:10 Dose: 3 ml Artificial Tears (Artificial Tears Opht Oint) 1 gm OU Q6 [facility] Last Admin: 10/16/16 05:00 Dose: 1 gm Folic Acid (Folic Acid) 1 mg PO DAILY [facility] Last Admin: 10/15/16 11:12 Dose: 1 mg Micafungin Sodium 100 mg/ (Sodium Chloride) 100 mls @ 100 mls/hr IV DAILY [facility] PRN Reason: Protocol Stop: 10/17/16 10:01 Last Admin: 10/15/16 10:19 Dose: 100 mls/hr Meropenem 500 mg/ Sodium (Chloride) 100 mls @ 100 mls/hr IVPB Q12 [facility] PRN Reason: Protocol Stop: 10/21/16 07:07 Last Admin: 10/15/16 22:59 Dose: 100 mls/hr Gentamicin Sulfate 270 mg/ (Sodium Chloride) 106.75 mls @ 106.75 mls/hr IVPB ONCE [facility] Last Admin: 10/15/16 11:12 Dose: 106.75 mls/hr Dextrose (Dextrose 5% In Water 1000 Ml) 1,000 mls @ 75 mls/hr IV .[id number] [facility] Last Admin: 10/15/16 17:15 Dose: 75 mls/hr Doxycycline Hyclate 100 mg/ (Sodium Chloride) 100 mls @ 100 mls/hr IVPB Q12 [facility] PRN Reason: Protocol Stop: 10/23/16 10:01 Lactulose (Enulose) 20 gm PO TID [facility]ONI Last Admin: 10/15/16 18:42 Dose: 20 gm Lorazepam (Ativan) 2 mg IVP Q2H PRN; Protocol PRN Reason: Agitation Last Admin: 10/07/16 05:33 Dose: 2 mg Metoclopramide HCl (Reglan) 10 mg IVP Q6H PRN PRN Reason: Other Last Admin: 10/09/16 17:13 Dose: 10 mg Midodrine (Proamatine) 5 mg PO TID [facility]I Last Admin: 10/15/16 18:38 Dose: 5 mg Pantoprazole Sodium (Protonix Inj) 40 mg IVP DAILY [facility] Last Admin: 10/15/16 11:12 Dose: 40 mg Thiamine HCl (Vitamin B1 Tab) 100 mg PO DAILY [facility] Last Admin: 10/15/16 11:12 Dose: 100 mg Vancomycin HCl (Vancocin 25 Mg/Ml (Oral Use)) 125 mg PO Q6H [facility] PRN Reason: Protocol Last Admin: 10/16/16 04:20 Dose: 125 mg Vitamin A (Vitamin A & D Oint Ud Foilpak) 1 ea TOP DAILY [facility] Last Admin: 10/15/16 11:12 Dose: 1 ea Vitamin B Complex/Vit C/Folic Acid (Nephro-Mariann) 1 tab PO 0800 [facility] Last Admin: 10/15/16 11:12 Dose: 1 tab - Labs Labs: 10/15/16 05:20 10/15/16 05:20 PT 16.1 Seconds (9.9-11.8) H 10/10/16 11:48 INR 1.49 (0.93-1.08) H 10/10/16 11:48 APTT 30.3 Seconds (23.7-30.8) 10/10/16 11:48 - Constitutional Appears: Other (Intubated, lethargic, tachypneic) - Head Exam Head Exam: NORMAL INSPECTION - ENT Exam Additional comments: ET tube in place - Neck Exam Neck Exam: absent: Meningismus - Respiratory Exam Respiratory Exam: Decreased Breath Sounds, Rales (scattered) - Cardiovascular Exam Cardiovascular Exam: +S1, +S2 - GI/Abdominal Exam GI & Abdominal Exam: Soft. absent: Tenderness Assessment and Plan - Assessment and Plan (Free Text) Plan: Assessment severe sepsis with ventilator-dependent respiratory failure, respiratory acidosis and acute renal failure probably due to C. albicans fungemia on top of colitis or spontaneous bacterial peritonitis in this patient with liver cirrhosis probably from alcohol abuse; S/P paracentesis; initially presented with delerium tremens; patient has possible new onset right sided and healthcare -associated pneumonia chronic alcohol abuse with history of liver cirrhosis and esophageal varices significant smoking history Plan will continue Merrem (day 12) and will start Zyvox and gave a dose of IV Gentamicin pending repeat blood and sputum cx from 2 days ago; reviewed repeat CXR which is showing possible new right lower lobe infiltrate; will continue PO Vancomycin (day 14) -target 14 days of therapy continue Mycamine (repeat blood cx on 10/08/2016 are negative - we are cautious not to use Fluconazole in this patient with worsening hepatic failure, although Mycamine has also been implicated with some liver toxicity as well but less reports compared to Fluconazole) - should have at least 2 weeks of antifungal therapy will continue to monitor clinically patient continues to be in critical condition and overall prognosis is poor - patient has been made DNR discussed with Dr. Hartmann and the ICU team
[2016-10-16] MEDS: Multivitamin Vitamin B Complex (Nephro-Vite) Tab PO SCH (10:50)
[2016-10-16] MEDS: Vitamins A & D Oint UD Foilpak TOP SCH (10:57)
[2016-10-16] MEDS: Micafungin 100 MG in Sodium Chloride 0.9% 100 ML IV SCH (11:00)
[2016-10-16] MEDS: Meropenem 500 MG in Sodium Chloride 0.9% 100 ML IVPB SCH ×2 (11:01→22:00)
[2016-10-16 11:33] LABS: ARTERIAL BLOOD GAS HCO3 19.7 mmol/L (21-28); ARTERIAL BLOOD GAS O2 CAPACITY 11.4 mL/dl (16-24); ARTERIAL BLOOD GAS O2 CONTENT 11.3 ML/dl (15-23); ARTERIAL BLOOD GAS PH 7.27 (7.35-7.45); ARTERIAL BLOOD HGB O2 SAT 95.3 % (95.0-98.0); CARBOXYHEMOGLOBIN 2.3 % (0.5-1.5); METHEMOGLOBIN 1.4 % (0.0-3.0)
[2016-10-16] MEDS: Gentamicin 270 MG in Sodium Chloride 0.9% 100 ML IVPB SCH (12:00)
[2016-10-16] MEDS: Linezolid 600 mg in D5W 300 ml 600 MG/300 ML BAG IVPB SCH (12:06)
--- NOTE | 2016-10-16 12:45 | RAD ---
HISTORY: intubated on vent COMPARISON: 10/15/2016 FINDINGS: LUNGS: Opacity at the left base seen on prior examination is not evident. No infiltrate is identified. PLEURA: No significant pleural effusion identified, no pneumothorax apparent. CARDIOVASCULAR: Normal heart size. Nasogastric tube extends to left upper abdomen. OSSEOUS STRUCTURES: No significant abnormalities. VISUALIZED UPPER ABDOMEN: Normal. OTHER FINDINGS: None. IMPRESSION: No active disease.
--- NOTE | 2016-10-16 14:11 | CP.CCUPN ---
<KENDY CERNA - Last Filed: 10/16/16 14:29> CCU Subjective - Physician Review Subjective (Free Text): 10/16/16 15:12 Patient was seen and assessed at bedside. Patient intubated on PRVC mode and unsedated, however patient continues to be unresponsive to verbal, tactile and painful stimuli. Per chart review, patient was febrile overnight to 101.8 and one dose of Ofirmev was used along with cooling blankets. ROS unobtainable due to patients clinical condition. CCU Objective - Vital Signs / Intake & Output Intake and Output (Last 8hrs): Intake & Output 10/15/16 10/16/16 10/16/16 22:59 06:59 14:59 Intake Total 1940 1100 Output Total 1950 1425 Balance -10 -325 Intake: IV 1100 1100 Left Hand 1100 Right Forearm 1100 Tube Feeding 540 Other 300 Output: Drainage 800 Paracentesis 800 Urine 450 450 Urethral (Vyas) 450 450 Stool 500 975 Other 200 Other: Voiding Method Indwelling Catheter # Bowel Movements 2 - Physical Exam Head: Positive for: Atraumatic, Normocephalic Pupils: Positive for: PERRL, Sluggish Conjunctiva: Positive for: Normal Ears: Positive for: Normal Mouth: Positive for: Moist Mucous Membranes, Other (ET and OG tube in position in oral cavity) Nose (External): Positive for: Atraumatic Neck: Positive for: Trachea Midline. Negative for: Lymphadenopathy Respiratory/Chest: Positive for: Clear to Auscultation, Good Air Exchange, Tachypneic, Other (Mechanical ventilation). Negative for: Respiratory Distress , Accessory Muscle Use, Wheezes, Decreased Breath Sounds, Retracting, Rhonchi Cardiovascular: Positive for: Regular Rate and Rhythm, Normal S1, S2. Negative for: Murmurs Abdomen: Positive for: Normal Bowel Sounds, Other (Paracentesis site with sutures, no signs of infection, dressing clean, dry and intact; shifting dullness). Negative for: Tenderness, Distention, Peritoneal Signs Genitourinary Male: Positive for: Testicle Swelling (Improved), Other (Vyas in place) Back: Positive for: Normal Inspection Upper Extremity: Positive for: Edema (1+ pitting edema B/L UE). Negative for: Normal Inspection (Multiple areas of ecchymoses), Cyanosis Lower Extremity: Positive for: Edema (1+ Pitting edema B/L up to thighs). Negative for: Normal Inspection Neurological: Positive for: Other (Gag and corneal reflex intact; ability to track motion with eyes intact). Negative for: GCS=15 (GCS of 3T), CN II-XII Intact, Speech Normal Skin: Positive for: Warm, Dry, Other (Areas of serous weeping from multiple areas of skin). Negative for: Rashes, Normal Color (multiple ecchymoses over UE B/L) Psychiatric: Negative for: Alert (arousable to tactile stimuli), Oriented x 3, Normal Insight, Normal Concentration - Medications Active Medications: Active Medications Generic Name Dose Route Start Last Admin Trade Name Freq PRN Reason Stop Dose Admin Albuterol/Ipratropium 3 ml 10/05/16 08:00 10/16/16 13:24 Duoneb 3 Mg/0.5 Mg (3 Ml) Ud IH 3 ml [id number] TONI Administration Artificial Tears 1 gm 10/10/16 18:00 10/16/16 12:34 Artificial Tears Opht Oint OU 1 gm Q6 TONI Administration Folic Acid 1 mg 10/03/16 10:00 10/16/16 10:58 Folic Acid PO 1 mg DAILY TONI Administration Micafungin Sodium 100 mg/ 100 mls @ 100 mls/hr 10/08/16 10:00 10/16/16 11:00 Sodium Chloride IV 10/17/16 10:01 100 mls/hr DAILY TONI Administration Protocol Meropenem 500 mg/ Sodium 100 mls @ 100 mls/hr 10/14/16 07:06 10/16/16 11:01 Chloride IVPB 10/21/16 07:07 100 mls/hr Q12 TONI Administration Protocol Gentamicin Sulfate 270 mg/ 106.75 mls @ 106.75 mls/hr 10/15/16 10:00 12:00 Sodium Chloride IVPB 106.75 mls/hr ONCE TONI Administration Doxycycline Hyclate 100 mg/ 100 mls @ 100 mls/hr 10/16/16 10:00 10/16/16 11: 00 Sodium Chloride IVPB 10/23/16 10:01 100 mls/hr Q12 TONI Administration Protocol Dextrose 1,000 mls @ 150 mls/hr 10/16/16 09:33 Dextrose 5% In Water 1000 Ml IV .Q6H40M TONI Sodium Chloride 1,000 mls @ 50 mls/hr 10/16/16 09:45 Sodium Chloride 0.9% IV .Q20H TONI Linezolid 600 mg in 300 mls @ 200 mls/hr 10/16/16 10:45 10/16/16 12:06 Zyvox 600mg/300ml D5w IVPB 10/23/16 10:46 200 mls/hr Q12 TONI Administration Protocol Lactulose 20 gm 10/11/16 10:00 10/16/16 10:57 Enulose PO 20 gm TID TONI Administration Lorazepam 2 mg 10/02/16 21:28 10/07/16 05:33 Ativan IVP 2 mg Q2H PRN Administration Agitation Protocol Metoclopramide HCl 10 mg 10/09/16 16:56 10/09/16 17:13 Reglan IVP 10 mg Q6H PRN Administration Other Midodrine 5 mg 10/09/16 10:00 10/16/16 10:40 Proamatine PO 5 mg TID TONI Administration Pantoprazole Sodium 40 mg 10/03/16 10:00 10/16/16 10:40 Protonix Inj IVP 40 mg DAILY TONI Administration Thiamine HCl 100 mg 10/03/16 10:00 10/16/16 10:00 Vitamin B1 Tab PO 100 mg DAILY TONI Administration Vancomycin HCl 125 mg 10/03/16 11:00 10/16/16 11:02 Vancocin 25 Mg/Ml (Oral Use) PO 125 mg Q6H TONI Administration Protocol Vitamin A 1 ea 10/03/16 10:00 10/16/16 10:57 [facility] TONI Administration Vitamin B Complex/Vit C/Folic Acid 1 tab 10/03/16 08:00 10/16/16 10:50 Nephro-Mariann PO 1 tab 0800 TONI Administration - Patient Studies Lab Studies: Microbiology Studies 10/14/16 14:10 Gram Stain - Final Sputum Sputum Culture - Preliminary Gram Negative Stephan 10/14/16 08:00 Blood Culture - Preliminary Blood NO GROWTH AFTER 48 HOURS 10/11/16 07:40 Blood Culture - Final Blood-Venous NO GROWTH AFTER 5 DAYS Gram Stain - Final TEST NOT PERFORMED 10/11/16 07:10 Blood Culture - Final Blood-Venous NO GROWTH AFTER 5 DAYS Gram Stain - Final TEST NOT PERFORMED Lab Studies 10/16/16 10/16/16 10/16/16 Range/Units 11:25 07:30 07:30 WBC (4.5-11.0) 10^3/ul RBC (3.5-6.1) 10^6/uL Hgb (14.0-18.0) g/dL Hct (42.0-52.0) % MCV (80.0-105.0) fl MCH (25.0-35.0) pg MCHC (31.0-37.0) g/dl RDW (11.5-14.5) % Plt Count (120.0-450.0) 10^3/uL MPV (7.0-11.0) fl Gran % (50.0-68.0) % Lymph % (Auto) (22.0-35.0) % [place] % (Auto) (1.0-6.0) % Eos % (Auto) (1.5-5.0) % Baso % (Auto) (0.0-3.0) % Gran # (1.4-6.5) Lymph # (1.2-3.4) [place] # (0.1-0.6) Eos # (0.0-0.7) Baso # (0.0-2.0) K/mm3 pCO2 43 (35-45) mm/Hg pO2 97.0 (80-100) mm/Hg HCO3 19.7 L (21-28) mmol/L ABG pH 7.27 L (7.35-7.45) ABG Total CO2 21.0 L (22-28) mmol.L ABG O2 Saturation 99.0 H (95-98) % ABG O2 Content 11.3 L (15-23) ML/dl ABG Base Excess -6.8 L (-2.0-3.0) mmol/L ABG Hemoglobin 8.3 L (11.7-17.4) g/dL ABG Carboxyhemoglobin 2.3 H (0.5-1.5) % POC ABG HHb (Measured) 1.0 (0-5) % ABG Methemoglobin 1.4 (0.0-3.0) % ABG O2 Capacity 11.4 L (16-24) mL/dl Hgb O2 Saturation 95.3 (95.0-98.0) % FiO2 40.0 % Sodium 152 H (132-148) mmol/L Potassium 4.0 (3.6-5.0) mmol/L Chloride 120 H (98-107) mmol/L Carbon Dioxide 23 (21-33) mmol/L Anion Gap 13 (10-20) BUN 106 H (7-21) mg/dL Creatinine 3.0 H (0.5-1.4) mg/dL Est GFR ( Amer) 26 Est GFR (Non-Af Amer) 22 Random Glucose 132 H (70-110) mg/dL Uric Acid 11.1 H (3.5-8.5) mg/dL Calcium 7.7 L (8.4-10.5) mg/dL Total Bilirubin 1.8 H (0.2-1.3) mg/dL AST 71 H (17-59) U/L ALT 54 (7-56) U/L Alkaline Phosphatase 93 (38-126) U/L Total Protein 5.4 L (5.8-8.3) g/dL Albumin 2.3 L (3.0-4.8) g/dL Globulin 3.1 gm/dL Albumin/Globulin Ratio 0.7 L (1.1-1.8) Urine Color (YELLOW) Urine Appearance (CLEAR) Urine pH (4.7-8.0) Ur Specific [place] (1.005-1.035) Urine Protein (<30 mg/dL) mg/dL Urine Glucose (UA) (NEGATIVE) mg/dL Urine Ketones (NEGATIVE) mg/dL Urine Blood (NEGATIVE) Urine Nitrate (NEGATIVE) Urine Bilirubin (NEGATIVE) Urine Urobilinogen (<1 E.U./dL) E.U./dL Ur Leukocyte Esterase (NEGATIVE) Anthony/uL Urine RBC (0-2) /hpf Urine WBC (0-6) /hpf Ur Epithelial Cells (0-5) /hpf Urine Bacteria (NEG) 10/16/16 10/16/16 Range/Units 07:30 02:50 WBC 9.9 (4.5-11.0) 10^3/ul RBC 2.74 L (3.5-6.1) 10^6/uL Hgb 8.8 L (14.0-18.0) g/dL Hct 28.6 L (42.0-52.0) % MCV 104.4 (80.0-105.0) fl MCH 32.1 (25.0-35.0) pg MCHC 30.8 L (31.0-37.0) g/dl RDW 16.2 H (11.5-14.5) % Plt Count 77 L (120.0-450.0) 10^3/uL MPV 12.5 H (7.0-11.0) fl Gran % 78.3 H (50.0-68.0) % Lymph % (Auto) 18.6 L (22.0-35.0) % [place] % (Auto) 3.0 (1.0-6.0) % Eos % (Auto) 0.0 L (1.5-5.0) % Baso % (Auto) 0.1 (0.0-3.0) % Gran # 7.77 H (1.4-6.5) Lymph # 1.9 (1.2-3.4) [place] # 0.3 (0.1-0.6) Eos # 0.0 (0.0-0.7) Baso # 0.01 (0.0-2.0) K/mm3 pCO2 (35-45) mm/Hg pO2 (80-100) mm/Hg HCO3 (21-28) mmol/L ABG pH (7.35-7.45) ABG Total CO2 (22-28) mmol.L ABG O2 Saturation (95-98) % ABG O2 Content (15-23) ML/dl ABG Base Excess (-2.0-3.0) mmol/L ABG Hemoglobin (11.7-17.4) g/dL ABG Carboxyhemoglobin (0.5-1.5) % POC ABG HHb (Measured) (0-5) % ABG Methemoglobin (0.0-3.0) % ABG O2 Capacity (16-24) mL/dl Hgb O2 Saturation (95.0-98.0) % FiO2 % Sodium (132-148) mmol/L Potassium (3.6-5.0) mmol/L Chloride (98-107) mmol/L Carbon Dioxide (21-33) mmol/L Anion Gap (10-20) BUN (7-21) mg/dL Creatinine (0.5-1.4) mg/dL Est GFR ( Amer) Est GFR (Non-Af Amer) Random Glucose (70-110) mg/dL Uric Acid (3.5-8.5) mg/dL Calcium (8.4-10.5) mg/dL Total Bilirubin (0.2-1.3) mg/dL AST (17-59) U/L ALT (7-56) U/L Alkaline Phosphatase (38-126) U/L Total Protein (5.8-8.3) g/dL Albumin (3.0-4.8) g/dL Globulin gm/dL Albumin/Globulin Ratio (1.1-1.8) Urine Color Yellow (YELLOW) Urine Appearance Slight-cloudy (CLEAR) Urine pH 6.0 (4.7-8.0) Ur Specific [place] 1.020 (1.005-1.035) Urine Protein 100 H (<30 mg/dL) mg/dL Urine Glucose (UA) Negative (NEGATIVE) mg/dL Urine Ketones Negative (NEGATIVE) mg/dL Urine Blood Large H (NEGATIVE) Urine Nitrate Negative (NEGATIVE) Urine Bilirubin Negative (NEGATIVE) Urine Urobilinogen 0.2 (<1 E.U./dL) E.U./dL Ur Leukocyte Esterase Negative (NEGATIVE) Anthony/uL Urine RBC 10 - 15 (0-2) /hpf Urine WBC 0 - 2 (0-6) /hpf Ur Epithelial Cells 0 - 2 (0-5) /hpf Urine Bacteria Mod (NEG) Laboratory Results - last 24 hr 10/16/16 10/16/16 10/16/16 02:50 07:30 07:30 WBC 9.9 RBC 2.74 L Hgb 8.8 L Hct 28.6 L MCV 104.4 MCH 32.1 MCHC 30.8 L RDW 16.2 H Plt Count 77 L MPV 12.5 H Gran % 78.3 H Lymph % (Auto) 18.6 L [place] % (Auto) 3.0 Eos % (Auto) 0.0 L Baso % (Auto) 0.1 Gran # 7.77 H Lymph # 1.9 [place] # 0.3 Eos # 0.0 Baso # 0.01 pCO2 pO2 HCO3 ABG pH ABG Total CO2 ABG O2 Saturation ABG O2 Content ABG Base Excess ABG Hemoglobin ABG Carboxyhemoglobin POC ABG HHb (Measured) ABG Methemoglobin ABG O2 Capacity Hgb O2 Saturation FiO2 Sodium 152 H Potassium 4.0 Chloride 120 H Carbon Dioxide 23 Anion Gap 13 BUN 106 H Creatinine 3.0 H Est GFR ( Amer) 26 Est GFR (Non-Af Amer) 22 Random Glucose 132 H Uric Acid Calcium 7.7 L Total Bilirubin 1.8 H AST 71 H ALT 54 Alkaline Phosphatase 93 Total Protein 5.4 L Albumin 2.3 L Globulin 3.1 Albumin/Globulin Ratio 0.7 L Urine Color Yellow Urine Appearance Slight-cloudy Urine pH 6.0 Ur Specific [place] 1.020 Urine Protein 100 H Urine Glucose (UA) Negative Urine Ketones Negative Urine Blood Large H Urine Nitrate Negative Urine Bilirubin Negative Urine Urobilinogen 0.2 Ur Leukocyte Esterase Negative Urine RBC 10 - 15 Urine WBC 0 - 2 Ur Epithelial Cells 0 - 2 Urine Bacteria Mod 10/16/16 10/16/16 07:30 11:25 WBC RBC Hgb Hct MCV MCH MCHC RDW Plt Count MPV Gran % Lymph % (Auto) [place] % (Auto) Eos % (Auto) Baso % (Auto) Gran # Lymph # [place] # Eos # Baso # pCO2 43 pO2 97.0 HCO3 19.7 L ABG pH 7.27 L ABG Total CO2 21.0 L ABG O2 Saturation 99.0 H ABG O2 Content 11.3 L ABG Base Excess -6.8 L ABG Hemoglobin 8.3 L ABG Carboxyhemoglobin 2.3 H POC ABG HHb (Measured) 1.0 ABG Methemoglobin 1.4 ABG O2 Capacity 11.4 L Hgb O2 Saturation 95.3 FiO2 40.0 Sodium Potassium Chloride Carbon Dioxide Anion Gap BUN Creatinine Est GFR ( Amer) Est GFR (Non-Af Amer) Random Glucose Uric Acid 11.1 H Calcium Total Bilirubin AST ALT Alkaline Phosphatase Total Protein Albumin Globulin Albumin/Globulin Ratio Urine Color Urine Appearance Urine pH Ur Specific [place] Urine Protein Urine Glucose (UA) Urine Ketones Urine Blood Urine Nitrate Urine Bilirubin Urine Urobilinogen Ur Leukocyte Esterase Urine RBC Urine WBC Ur Epithelial Cells Urine Bacteria Fingerstick Blood Sugar Results: 105 Review of Systems - Review of Systems Review of Systems: Please refer to HPI Assessment/Plan - Assessment and Plan (Free Text) Assessment: 56 year old male with an initial presentation of AMS in the setting of persistent hypokalemia and alcohol withdrawal, which resolved. Patient was then intubated after he was found to be in hypercapnic respiratory failure and subsequently became hemodynamically unstable requiring dual vasopressor support. His presentation is consistent with distributive shock likely from either acute decompensated chronic liver failure or sepsis from C. Diff colitis , with multiorgan dysfunction syndrome including renal failure, encephalopathy and respiratory failure. Patient is no longer requiring vasopressin or levophed for hemodynamic support but is on midodrine. Patient is currently unresponsive to verbal or tactile stimuli off of sedation. Patient has been tolerating daily weaning trials of PS/CPAP from [facility] and family has signed consent form for tracheostomy should it be indicated. Patient has continued to be febrile on antibiotic therapy and is requiring additional broader spectrum antibiotic coverage at this time. Plan: Neuro: -CT head showed on 10/02 no acute findings in the brain and no acute hemorrhages or infarcts, age related cortical atrophy and ventriculomegaly -Repeat CT head done on 10/11 showed no acute intracranial pathology. -EEG done on 10/14 showed severe bihemispheric cerebral dysfunction with no epileptiform activity -Repeat CT head and ammonia level pending -Currently intubated with no sedation -Continue Lactulose 20mg TID -Continue Ativan 2mg IVP Q2H PRN for symptoms of alcohol withdrawal -Continue Thiamine, Folic Acid and MV supplementation Pulm: Mechanical ventilation settings on [facility] currently at: FiO2-40 PEEP-5 RR-26 TV-400 -Chest X-Ray on 10/16 showed no active disease with resolution of previously seen opacity in LLL and ET/OG tube unchanged grossly -Consent signed for tracheostomy placement on 10/15 by patients family -Continue daily PS/CPAP weaning trials as tolerated -Continue Duonebs 3ml IH [id number] for wheezing -ENT consulted, all recommendations appreciated Cardio: -EKG done on 10/05 shows sinus tachycardia at a rate of 106 and low voltage QRS with a non-specific t-wave abnormality -ECHO done on 10/10 showed LVEF of 55% with poor visualization of the valvular structures due to poor ECHO window and to consider MARILUZ if clinically indicated -Continue midodrine 5mg PO TID -Cardiology consulted, appreciate all recommendations GI: -CT abdomen/pelvis done on 10/04 showed possible sigmoid colitis, mild-to- moderate abdominal and pelvic ascites, free intrarenal gas or definite bowel obstruction, and hepatosplenomegaly again identified as well as diffuse fatty infiltration of liver -Approximately 2.5L of fluid removed via paracentesis on 10/05 with appropriate albumin resuscitation provided -Ascites predominantly lymphocytic and cytology showing no malignancy -Continue Vancomycin 125mg PO Q6H for C. Difficile, per ID -AST/ALT at 71/54 with T. Bili at 1.8, currently stable -Continue Lactulose 20mg TID -Increase Vital AF tube feedings to 55ml/hr, increase by 5ml/hr as tolerated -Continue Reglan 10mg IVP Q6H PRN -Rectal tube in place and currently draining 1475cc over the past 24 hours -GI consulted, all recommendations appreciated Renal: -BUN/Creatinine at 106/3.0, representing acute renal failure secondary to acute glomerulonephritis, likely secondary to hepatitis C -Hypernatremia at 152, with free water deficit calculated to be 5L; started on free water flushes 200ml q4, D5W at 150ml/hr and normal saline at 50ml/hr -Hyperuricemia noted with uric acid at 11.1 -Dialysis not indicated at this time, per nephro -Vyas catheter in place and draining 900cc over the past 24 hours -Will continue to replete calcium, magnesium, phosphorus and potassium as needed -Will continue to monitor with serial CMP's -Nephrology consulted, all recommendations appreciated Heme/Onc: -H/H stable at 8.8/28.6 -Thrombocytopenia improved to 77 from 64 -Will continue to monitor with serial CBC's ID: -Currently on Micafungin 100mg IV daily (day 9), Merrem 250mg IVPB Q12 (day 12) , Vancomycin 125mg PO Q6 (day 14 of PO/day 15 overall), Zyvox 600mg IVPB Q12 ( Day 1), and Doxycycline 100mg IVPB Q12 (Day 1) -Started Zyvox and Doxycycline as patient continues to be febrile over the past 48 hours, with a Tmax of 101.8 -New blood and urine cultures drawn on 10/16 pending -UA and Chest X-Ray on 10/16 negative for acute signs of infection -Sputum culture drawn on 10/14 grew gram negative rods, for which patient received one dose of gentamycin on 10/15 -Previous blood, sputum and urine cultures drawn on 10/05 growing tom albicans -C. Diff antigen positive and toxin negative -MRSA screen negative -Procal at 1.44 on 10/14 -Continue active patient cooling with cooling blankets for temperatures over 100.4 -ID consulted, all recommendations appreciated Endocrine: -Will maintain euglycemia with blood glucose between 140 and 180 Lines: -Continue all peripheral lines GI Prophylaxis: Protonix DVT Prophylaxis: SCD's Disposition: Patient currently intubated with consent signed for tracheostomy on 10/15. Patient with poor prognosis overall. Patient seen and case discussed with attending, Dr. Hartmann. - Date & Time Date: 10/16/16 Time: 15:11 <Mary Kate GALLEGOS,[facility] - Last Filed: 10/16/16 16:35> CCU Objective - Vital Signs / Intake & Output Intake and Output (Last 8hrs): Intake & Output 10/16/16 10/16/16 10/16/16 06:59 14:59 22:59 Intake Total 1100 Output Total 1425 Balance -325 Intake: IV 1100 Left Hand 1100 Output: Urine 450 Urethral (Vyas) 450 Stool 975 - Medications Active Medications: Active Medications Generic Name Dose Route Start Last Admin Trade Name Freq PRN Reason Stop Dose Admin Albuterol/Ipratropium 3 ml 10/05/16 08:00 10/16/16 13:24 Duoneb 3 Mg/0.5 Mg (3 Ml) Ud IH 3 ml [id number] TONI Administration Artificial Tears 1 gm 10/10/16 18:00 10/16/16 15:14 Artificial Tears Opht Oint OU 1 gm Q6 TONI Administration Folic Acid 1 mg 10/03/16 10:00 10/16/16 10:58 Folic Acid PO 1 mg DAILY TONI Administration Micafungin Sodium 100 mg/ 100 mls @ 100 mls/hr 10/08/16 10:00 10/16/16 11:00 Sodium Chloride IV 10/17/16 10:01 100 mls/hr DAILY TONI Administration Protocol Meropenem 500 mg/ Sodium 100 mls @ 100 mls/hr 10/14/16 07:06 10/16/16 11:01 Chloride IVPB 10/21/16 07:07 100 mls/hr Q12 TONI Administration Protocol Gentamicin Sulfate 270 mg/ 106.75 mls @ 106.75 mls/hr 10/15/16 10:00 12:00 Sodium Chloride IVPB 106.75 mls/hr ONCE TONI Administration Doxycycline Hyclate 100 mg/ 100 mls @ 100 mls/hr 10/16/16 10:00 10/16/16 11: 00 Sodium Chloride IVPB 10/23/16 10:01 100 mls/hr Q12 TONI Administration Protocol Dextrose 1,000 mls @ 150 mls/hr 10/16/16 09:33 Dextrose 5% In Water 1000 Ml IV .Q6H40M TONI Sodium Chloride 1,000 mls @ 50 mls/hr 10/16/16 09:45 10/16/16 15:20 Sodium Chloride 0.9% IV 50 mls/hr .Q20H TONI Administration Linezolid 600 mg in 300 mls @ 200 mls/hr 10/16/16 10:45 10/16/16 12:06 Zyvox 600mg/300ml D5w IVPB 10/23/16 10:46 200 mls/hr Q12 TONI Administration Protocol Lactulose 20 gm 10/11/16 10:00 10/16/16 10:57 Enulose PO 20 gm TID TONI Administration Lorazepam 2 mg 10/02/16 21:28 10/07/16 05:33 Ativan IVP 2 mg Q2H PRN Administration Agitation Protocol Metoclopramide HCl 10 mg 10/09/16 16:56 10/09/16 17:13 Reglan IVP 10 mg Q6H PRN Administration Other Midodrine 5 mg 10/09/16 10:00 10/16/16 10:40 Proamatine PO 5 mg TID TONI Administration Pantoprazole Sodium 40 mg 10/03/16 10:00 10/16/16 10:40 Protonix Inj IVP 40 mg DAILY TONI Administration Thiamine HCl 100 mg 10/03/16 10:00 10/16/16 10:00 Vitamin B1 Tab PO 100 mg DAILY TONI Administration Vancomycin HCl 125 mg 10/03/16 11:00 10/16/16 11:02 Vancocin 25 Mg/Ml (Oral Use) PO 125 mg Q6H TONI Administration Protocol Vitamin A 1 ea 10/03/16 10:00 10/16/16 10:57 Vitamin A & D Oint Ud Foilpak TOP 1 ea DAILY TONI Administration Vitamin B Complex/Vit C/Folic Acid 1 tab 10/03/16 08:00 10/16/16 10:50 Nephro-Mariann PO 1 tab 0800 [facility] Administration - Patient Studies Lab Studies: Microbiology Studies 10/14/16 14:10 Gram Stain - Final Sputum Sputum Culture - Preliminary Gram Negative Stephan 10/14/16 08:00 Blood Culture - Preliminary Blood NO GROWTH AFTER 48 HOURS 10/11/16 07:40 Blood Culture - Final Blood-Venous NO GROWTH AFTER 5 DAYS Gram Stain - Final TEST NOT PERFORMED 10/11/16 07:10 Blood Culture - Final Blood-Venous NO GROWTH AFTER 5 DAYS Gram Stain - Final TEST NOT PERFORMED Lab Studies 10/16/16 10/16/16 10/16/16 Range/Units 11:25 07:30 07:30 WBC (4.5-11.0) 10^3/ul RBC (3.5-6.1) 10^6/uL Hgb (14.0-18.0) g/dL Hct (42.0-52.0) % MCV (80.0-105.0) fl MCH (25.0-35.0) pg MCHC (31.0-37.0) g/dl RDW (11.5-14.5) % Plt Count (120.0-450.0) 10^3/uL MPV (7.0-11.0) fl Gran % (50.0-68.0) % Lymph % (Auto) (22.0-35.0) % [place] % (Auto) (1.0-6.0) % Eos % (Auto) (1.5-5.0) % Baso % (Auto) (0.0-3.0) % Gran # (1.4-6.5) Lymph # (1.2-3.4) [place] # (0.1-0.6) Eos # (0.0-0.7) Baso # (0.0-2.0) K/mm3 pCO2 43 (35-45) mm/Hg pO2 97.0 (80-100) mm/Hg HCO3 19.7 L (21-28) mmol/L ABG pH 7.27 L (7.35-7.45) ABG Total CO2 21.0 L (22-28) mmol.L ABG O2 Saturation 99.0 H (95-98) % ABG O2 Content 11.3 L (15-23) ML/dl ABG Base Excess -6.8 L (-2.0-3.0) mmol/L ABG Hemoglobin 8.3 L (11.7-17.4) g/dL ABG Carboxyhemoglobin 2.3 H (0.5-1.5) % POC ABG HHb (Measured) 1.0 (0-5) % ABG Methemoglobin 1.4 (0.0-3.0) % ABG O2 Capacity 11.4 L (16-24) mL/dl Hgb O2 Saturation 95.3 (95.0-98.0) % FiO2 40.0 % Sodium 152 H (132-148) mmol/L Potassium 4.0 (3.6-5.0) mmol/L Chloride 120 H (98-107) mmol/L Carbon Dioxide 23 (21-33) mmol/L Anion Gap 13 (10-20) BUN 106 H (7-21) mg/dL Creatinine 3.0 H (0.5-1.4) mg/dL Est GFR ( Amer) 26 Est GFR (Non-Af Amer) 22 Random Glucose 132 H (70-110) mg/dL Uric Acid 11.1 H (3.5-8.5) mg/dL Calcium 7.7 L (8.4-10.5) mg/dL Total Bilirubin 1.8 H (0.2-1.3) mg/dL AST 71 H (17-59) U/L ALT 54 (7-56) U/L Alkaline Phosphatase 93 (38-126) U/L Total Protein 5.4 L (5.8-8.3) g/dL Albumin 2.3 L (3.0-4.8) g/dL Globulin 3.1 gm/dL Albumin/Globulin Ratio 0.7 L (1.1-1.8) PTH Intact Whole Molec (14-64) pg/mL Urine Color (YELLOW) Urine Appearance (CLEAR) Urine pH (4.7-8.0) Ur Specific [place] (1.005-1.035) Urine Protein (<30 mg/dL) mg/dL Urine Glucose (UA) (NEGATIVE) mg/dL Urine Ketones (NEGATIVE) mg/dL Urine Blood (NEGATIVE) Urine Nitrate (NEGATIVE) Urine Bilirubin (NEGATIVE) Urine Urobilinogen (<1 E.U./dL) E.U./dL Ur Leukocyte Esterase (NEGATIVE) Anthony/uL Urine RBC (0-2) /hpf Urine WBC (0-6) /hpf Ur Epithelial Cells (0-5) /hpf Urine Bacteria (NEG) 10/16/16 10/16/16 10/14/16 Range/Units 07:30 02:50 12:30 WBC 9.9 (4.5-11.0) 10^3/ul RBC 2.74 L (3.5-6.1) 10^6/uL Hgb 8.8 L (14.0-18.0) g/dL Hct 28.6 L (42.0-52.0) % MCV 104.4 (80.0-105.0) fl MCH 32.1 (25.0-35.0) pg MCHC 30.8 L (31.0-37.0) g/dl RDW 16.2 H (11.5-14.5) % Plt Count 77 L (120.0-450.0) 10^3/uL MPV 12.5 H (7.0-11.0) fl Gran % 78.3 H (50.0-68.0) % Lymph % (Auto) 18.6 L (22.0-35.0) % [place] % (Auto) 3.0 (1.0-6.0) % Eos % (Auto) 0.0 L (1.5-5.0) % Baso % (Auto) 0.1 (0.0-3.0) % Gran # 7.77 H (1.4-6.5) Lymph # 1.9 (1.2-3.4) [place] # 0.3 (0.1-0.6) Eos # 0.0 (0.0-0.7) Baso # 0.01 (0.0-2.0) K/mm3 pCO2 (35-45) mm/Hg pO2 (80-100) mm/Hg HCO3 (21-28) mmol/L ABG pH (7.35-7.45) ABG Total CO2 (22-28) mmol.L ABG O2 Saturation (95-98) % ABG O2 Content (15-23) ML/dl ABG Base Excess (-2.0-3.0) mmol/L ABG Hemoglobin (11.7-17.4) g/dL ABG Carboxyhemoglobin (0.5-1.5) % POC ABG HHb (Measured) (0-5) % ABG Methemoglobin (0.0-3.0) % ABG O2 Capacity (16-24) mL/dl Hgb O2 Saturation (95.0-98.0) % FiO2 % Sodium (132-148) mmol/L Potassium (3.6-5.0) mmol/L Chloride (98-107) mmol/L Carbon Dioxide (21-33) mmol/L Anion Gap (10-20) BUN (7-21) mg/dL Creatinine (0.5-1.4) mg/dL Est GFR ( Amer) Est GFR (Non-Af Amer) Random Glucose (70-110) mg/dL Uric Acid (3.5-8.5) mg/dL Calcium (8.4-10.5) mg/dL Total Bilirubin (0.2-1.3) mg/dL AST (17-59) U/L ALT (7-56) U/L Alkaline Phosphatase (38-126) U/L Total Protein (5.8-8.3) g/dL Albumin (3.0-4.8) g/dL Globulin gm/dL Albumin/Globulin Ratio (1.1-1.8) PTH Intact Whole Molec 67 H (14-64) pg/mL Urine Color Yellow (YELLOW) Urine Appearance Slight-cloudy (CLEAR) Urine pH 6.0 (4.7-8.0) Ur Specific [place] 1.020 (1.005-1.035) Urine Protein 100 H (<30 mg/dL) mg/dL Urine Glucose (UA) Negative (NEGATIVE) mg/dL Urine Ketones Negative (NEGATIVE) mg/dL Urine Blood Large H (NEGATIVE) Urine Nitrate Negative (NEGATIVE) Urine Bilirubin Negative (NEGATIVE) Urine Urobilinogen 0.2 (<1 E.U./dL) E.U./dL Ur Leukocyte Esterase Negative (NEGATIVE) Anthony/uL Urine RBC 10 - 15 (0-2) /hpf Urine WBC 0 - 2 (0-6) /hpf Ur Epithelial Cells 0 - 2 (0-5) /hpf Urine Bacteria Mod (NEG) Laboratory Results - last 24 hr 10/14/16 10/16/16 10/16/16 12:30 02:50 07:30 WBC 9.9 RBC 2.74 L Hgb 8.8 L Hct 28.6 L MCV 104.4 MCH 32.1 MCHC 30.8 L RDW 16.2 H Plt Count 77 L MPV 12.5 H Gran % 78.3 H Lymph % (Auto) 18.6 L [place] % (Auto) 3.0 Eos % (Auto) 0.0 L Baso % (Auto) 0.1 Gran # 7.77 H Lymph # 1.9 [place] # 0.3 Eos # 0.0 Baso # 0.01 pCO2 pO2 HCO3 ABG pH ABG Total CO2 ABG O2 Saturation ABG O2 Content ABG Base Excess ABG Hemoglobin ABG Carboxyhemoglobin POC ABG HHb (Measured) ABG Methemoglobin ABG O2 Capacity Hgb O2 Saturation FiO2 Sodium Potassium Chloride Carbon Dioxide Anion Gap BUN Creatinine Est GFR ( Amer) Est GFR (Non-Af Amer) Random Glucose Uric Acid Calcium Total Bilirubin AST ALT Alkaline Phosphatase Total Protein Albumin Globulin Albumin/Globulin Ratio PTH Intact Whole Molec 67 H Urine Color Yellow Urine Appearance Slight-cloudy Urine pH 6.0 Ur Specific [place] 1.020 Urine Protein 100 H Urine Glucose (UA) Negative Urine Ketones Negative Urine Blood Large H Urine Nitrate Negative Urine Bilirubin Negative Urine Urobilinogen 0.2 Ur Leukocyte Esterase Negative Urine RBC 10 - 15 Urine WBC 0 - 2 Ur Epithelial Cells 0 - 2 Urine Bacteria Mod 10/16/16 10/16/16 10/16/16 07:30 07:30 11:25 WBC RBC Hgb Hct MCV MCH MCHC RDW Plt Count MPV Gran % Lymph % (Auto) [place] % (Auto) Eos % (Auto) Baso % (Auto) Gran # Lymph # [place] # Eos # Baso # pCO2 43 pO2 97.0 HCO3 19.7 L ABG pH 7.27 L ABG Total CO2 21.0 L ABG O2 Saturation 99.0 H ABG O2 Content 11.3 L ABG Base Excess -6.8 L ABG Hemoglobin 8.3 L ABG Carboxyhemoglobin 2.3 H POC ABG HHb (Measured) 1.0 ABG Methemoglobin 1.4 ABG O2 Capacity 11.4 L Hgb O2 Saturation 95.3 FiO2 40.0 Sodium 152 H Potassium 4.0 Chloride 120 H Carbon Dioxide 23 Anion Gap 13 BUN 106 H Creatinine 3.0 H Est GFR ( Amer) 26 Est GFR (Non-Af Amer) 22 Random Glucose 132 H Uric Acid 11.1 H Calcium 7.7 L Total Bilirubin 1.8 H AST 71 H ALT 54 Alkaline Phosphatase 93 Total Protein 5.4 L Albumin 2.3 L Globulin 3.1 Albumin/Globulin Ratio 0.7 L PTH Intact Whole Molec Urine Color Urine Appearance Urine pH Ur Specific [place] Urine Protein Urine Glucose (UA) Urine Ketones Urine Blood Urine Nitrate Urine Bilirubin Urine Urobilinogen Ur Leukocyte Esterase Urine RBC Urine WBC Ur Epithelial Cells Urine Bacteria Attending/Attestation - Attestation I have personally seen and examined this patient.: Yes I have fully participated in the care of the patient.: Yes I have reviewed all pertinent clinical information: Yes Notes (Text): 10/16/16 16:31 56 y/o M w/ Acute respiratory failure in the setting of Sepsis and Encephalopathy Continue w/ Broad spectrum abx, addd linezolid for further MRSA coverage. Repeat blood and urine cx , PS trial done today , rr > 35 aborted in 10 minutes. Febrile for > 24 hrs on coolign blanket and Tylenol. SHAMAR on CKD, with elevated BUN and Creat. Uremia maybe a large reason for AMS and need for HD. Family explicitly explained that the patient would not want HD Trancheostomy planned for if patient remains stable. Poor prognosis with Renal, Liver and resp failure in the settign of AMS and Sepsis. dvt p ppi cc time 65 min
--- NOTE | 2016-10-16 17:38 | CP.PCM.PN ---
<Justo Torres - Last Filed: 10/16/16 17:50> Subjective - Date & Time of Evaluation Date of Evaluation: 10/16/16 Time of Evaluation: 06:16 - Subjective Subjective: Patient was seen and examined at bedside. Per nursing the patient continues to have temperature spikes overnight. The patient remains intubated and in the weaning trial however looks to be unsuccessful thus far. ROS unable to be obtained due to current condition. Objective - Vital Signs/Intake and Output Vital Signs (last 24 hours): Temp Pulse Resp BP Pulse Ox 101.1 F H 109 H 33 H 102/67 96 10/16/16 06:00 10/16/16 06:00 10/16/16 08:18 10/16/16 06:00 10/16/16 08:18 Intake and Output: 10/16/16 10/16/16 06:59 18:59 Intake Total 1100 Output Total 1425 Balance -325 - Medications Medications: Current Medications Albuterol/Ipratropium (Duoneb 3 Mg/0.5 Mg (3 Ml) Ud) 3 ml IH [id number] [facility] Last Admin: 10/16/16 13:24 Dose: 3 ml Artificial Tears (Artificial Tears Opht Oint) 1 gm OU Q6 [facility] Last Admin: 10/16/16 15:14 Dose: 1 gm Folic Acid (Folic Acid) 1 mg PO DAILY [facility] Last Admin: 10/16/16 10:58 Dose: 1 mg Micafungin Sodium 100 mg/ (Sodium Chloride) 100 mls @ 100 mls/hr IV DAILY [facility] PRN Reason: Protocol Stop: 10/17/16 10:01 Last Admin: 10/16/16 11:00 Dose: 100 mls/hr Meropenem 500 mg/ Sodium (Chloride) 100 mls @ 100 mls/hr IVPB Q12 [facility] PRN Reason: Protocol Stop: 10/21/16 07:07 Last Admin: 10/16/16 11:01 Dose: 100 mls/hr Gentamicin Sulfate 270 mg/ (Sodium Chloride) 106.75 mls @ 106.75 mls/hr IVPB ONCE [facility] Last Admin: 10/16/16 12:00 Dose: 106.75 mls/hr Doxycycline Hyclate 100 mg/ (Sodium Chloride) 100 mls @ 100 mls/hr IVPB Q12 [facility] PRN Reason: Protocol Stop: 10/23/16 10:01 Last Admin: 10/16/16 11:00 Dose: 100 mls/hr Dextrose (Dextrose 5% In Water 1000 Ml) 1,000 mls @ 150 mls/hr IV .Q6H40M [facility] Sodium Chloride (Sodium Chloride 0.9%) 1,000 mls @ 50 mls/hr IV .Q20H [facility] Last Admin: 10/16/16 15:20 Dose: 50 mls/hr Linezolid (Zyvox 600mg/300ml D5w) 600 mg in 300 mls @ 200 mls/hr IVPB Q12 [facility] PRN Reason: Protocol Stop: 10/23/16 10:46 Last Admin: 10/16/16 12:06 Dose: 200 mls/hr Lactulose (Enulose) 20 gm PO TID [facility] Last Admin: 10/16/16 10:57 Dose: 20 gm Lorazepam (Ativan) 2 mg IVP Q2H PRN; Protocol PRN Reason: Agitation Last Admin: 10/07/16 05:33 Dose: 2 mg Metoclopramide HCl (Reglan) 10 mg IVP Q6H PRN PRN Reason: Other Last Admin: 10/09/16 17:13 Dose: 10 mg Midodrine (Proamatine) 5 mg PO TID [facility] Last Admin: 10/16/16 10:40 Dose: 5 mg Pantoprazole Sodium (Protonix Inj) 40 mg IVP DAILY [facility] Last Admin: 10/16/16 10:40 Dose: 40 mg Thiamine HCl (Vitamin B1 Tab) 100 mg PO DAILY [facility] Last Admin: 10/16/16 10:00 Dose: 100 mg Vancomycin HCl (Vancocin 25 Mg/Ml (Oral Use)) 125 mg PO Q6H [facility] PRN Reason: Protocol Last Admin: 10/16/16 11:02 Dose: 125 mg Vitamin A (Vitamin A & D Oint Ud Foilpak) 1 ea TOP DAILY [facility] Last Admin: 10/16/16 10:57 Dose: 1 ea Vitamin B Complex/Vit C/Folic Acid (Nephro-Mariann) 1 tab PO 0800 [facility] Last Admin: 10/16/16 10:50 Dose: 1 tab - Labs Labs: 10/16/16 07:30 10/16/16 07:30 PT 16.1 Seconds (9.9-11.8) H 10/10/16 11:48 INR 1.49 (0.93-1.08) H 10/10/16 11:48 APTT 30.3 Seconds (23.7-30.8) 10/10/16 11:48 - Head Exam Head Exam: ATRAUMATIC, NORMAL INSPECTION, NORMOCEPHALIC - Eye Exam Eye Exam: EOMI, Normal appearance, PERRL Pupil Exam: NORMAL ACCOMODATION, PERRL. absent: Miosis - ENT Exam ENT Exam: Mucous Membranes Moist - Respiratory Exam Respiratory Exam: Clear to Ausculation Bilateral, NORMAL BREATHING PATTERN. absent: Chest Wall Tenderness, Respiratory Distress - Cardiovascular Exam Cardiovascular Exam: REGULAR RHYTHM, RRR, +S1, +S2. absent: Gallop, Rubs - GI/Abdominal Exam GI & Abdominal Exam: Soft, Normal Bowel Sounds. absent: Tenderness - Exam Additional comments: Scrotal swelling decreased - Back Exam Additional comments: bed ulcers noted per Nursing staff - Skin Skin Exam: Mottled Assessment and Plan - Assessment and Plan (Free Text) Assessment: 56 year old male with an initial presentation of AMS in the setting of persistent hypokalemia and alcohol withdrawal, which resolved. Patient was then intubated after he was found to be in hypercapnic respiratory failure and subsequently became hemodynamically unstable requiring dual vasopressor support. His presentation is consistent with distributive shock likely from either acute decompensated chronic liver failure or sepsis from C. Diff colitis , with multiorgan dysfunction syndrome including renal failure, encephalopathy and respiratory failure. Patient is no longer requiring vasopressin or levophed for hemodynamic support but is on midodrine. Patient is currently unresponsive to verbal or tactile stimuli off of sedation. Patient is has been transitioned from PRVC to PS/CPAP Plan: Pulmonary: Hypercapnic Respiratory Failure -Patient intubated on 10/05. Today: FiO2= 40%, RR=26, PEEP+5, and Tidal Volume + 400 ml, O2 saturation+97% -ABG: pCO2+43, pO2+97, pH+7.27 -Patient hypotension slightly improved to 105/66 and remains off pressors. -Cardio following -CXR shows no active pulmonary disease. -Continue to monitor vital signs. -Continue Duonebs 3ml IHQ6 HRESP for wheezing symptoms. Renal: Acute renal failure most likely secondary to glomerulonephritis -BUN 106(up from 98) and Creatinine is 3.0(down from 3.1). -Urine total protein-897 and Urine Microalbumin >950. -Nephrology consult note appreciated. -No acute indications for HD at this time. Urine output increased today to 900 ml. -Nephrology consult note appreciate- Hematology: Thrombocytopenia -Plt count now 77 (up from 47 ) s/p 4 units of Platelets transfused. Continue to monitor plt count and consider another transfusion if patient drops below 20. -Patient currently has no active bleeds. Monitor for bleeding. EtOh Withdrawal -Continue Ativan 2mg IVP Q2H PRN for alcohol withdrawal symptoms. -Continue Thiamine, Folic acid and MV supplementation Ascites -s/p ascitic fluid removed on 10/05. -culture growth negative after 4 hours. GI: Hepatic encephalopathy -Continue Rifaxamin, Lactulose -Rectal tube in place and currently draining 800-900 cc per shift per nursing staff. -Continue with Vital AF tube feedings as 55ml/hr. Anemia -Stool occult blood positive on 10/05. -Hgb is 8.8 and Hct is 28.6. Patient is s/p 3 units leukocyte reduced PRBC's. Continue to monitor H/H levels with serial CBC's. Consider Transfusion if Hgb falls below 7. Sepsis/Fungemia -Grew Kamille Albicans -Continue Micafungin (renal dosing) -Patient continues to spike fevers. Started Zyvox and Doxycycline. Will continue to monitor closely. -Continue Merrem, Vancomycin C Diff infection. -Continue Vancomycin -Repeat stool sample. Hypokalemia -Potassium today 4. Will continue to replete as needed. Will continue to monitor electrolyte levels with serial cmp's. GI ppx -Continue Protonix DVT ppx. <Mell Gauthier - Last Filed: 10/17/16 08:09> Objective - Vital Signs/Intake and Output Vital Signs (last 24 hours): Temp Pulse Resp BP Pulse Ox 99.5 F 83 28 H 94/54 L 100 10/17/16 06:00 10/17/16 06:00 10/17/16 07:17 10/17/16 06:00 10/17/16 07:17 Intake and Output: 10/17/16 10/17/16 06:59 18:59 Intake Total 3865 Output Total 1100 Balance 2765 - Medications Medications: Current Medications Albuterol/Ipratropium (Duoneb 3 Mg/0.5 Mg (3 Ml) Ud) 3 ml IH [id number] [facility] Last Admin: 10/17/16 07:10 Dose: 3 ml Artificial Tears (Artificial Tears Opht Oint) 1 gm OU Q6 [facility] Last Admin: 10/17/16 05:02 Dose: 1 applic Folic Acid (Folic Acid) 1 mg PO DAILY [facility] Last Admin: 10/16/16 10:58 Dose: 1 mg Micafungin Sodium 100 mg/ (Sodium Chloride) 100 mls @ 100 mls/hr IV DAILY [facility] PRN Reason: Protocol Stop: 10/17/16 10:01 Last Admin: 10/16/16 11:00 Dose: 100 mls/hr Meropenem 500 mg/ Sodium (Chloride) 100 mls @ 100 mls/hr IVPB Q12 [facility] PRN Reason: Protocol Stop: 10/21/16 07:07 Last Admin: 10/16/16 22:00 Dose: 100 mls/hr Gentamicin Sulfate 270 mg/ (Sodium Chloride) 106.75 mls @ 106.75 mls/hr IVPB ONCE [facility] Last Admin: 10/16/16 12:00 Dose: 106.75 mls/hr Doxycycline Hyclate 100 mg/ (Sodium Chloride) 100 mls @ 100 mls/hr IVPB Q12 [facility] PRN Reason: Protocol Stop: 10/23/16 10:01 Last Admin: 10/16/16 22:05 Dose: 100 mls/hr Dextrose (Dextrose 5% In Water 1000 Ml) 1,000 mls @ 150 mls/hr IV .Q6H40M [facility] Last Admin: 10/17/16 01:00 Dose: 150 mls/hr Linezolid (Zyvox 600mg/300ml D5w) 600 mg in 300 mls @ 200 mls/hr IVPB Q12 [facility] PRN Reason: Protocol Stop: 10/23/16 10:46 Last Admin: 10/16/16 12:06 Dose: 200 mls/hr Sodium Chloride (Sodium Chloride 0.9%) 1,000 mls @ 75 mls/hr IV [id number] [facility] Last Admin: 10/16/16 18:40 Dose: 75 mls/hr Lactulose (Enulose) 20 gm PO TID [facility] Last Admin: 10/16/16 19:24 Dose: 20 gm Lorazepam (Ativan) 2 mg IVP Q2H PRN; Protocol PRN Reason: Agitation Last Admin: 10/07/16 05:33 Dose: 2 mg Metoclopramide HCl (Reglan) 10 mg IVP Q6H PRN PRN Reason: Other Last Admin: 10/09/16 17:13 Dose: 10 mg Midodrine (Proamatine) 5 mg PO TID [facility] Last Admin: 10/16/16 19:24 Dose: 5 mg Pantoprazole Sodium (Protonix Inj) 40 mg IVP DAILY [facility] Last Admin: 10/16/16 10:40 Dose: 40 mg Thiamine HCl (Vitamin B1 Tab) 100 mg PO DAILY [facility] Last Admin: 10/16/16 10:00 Dose: 100 mg Vancomycin HCl (Vancocin 25 Mg/Ml (Oral Use)) 125 mg PO Q6H [facility] PRN Reason: Protocol Last Admin: 10/17/16 05:01 Dose: 125 mg Vitamin A (Vitamin A & D Oint Ud Foilpak) 1 ea TOP DAILY [facility] Last Admin: 10/16/16 10:57 Dose: 1 ea Vitamin B Complex/Vit C/Folic Acid (Nephro-Mariann) 1 tab PO 0800 [facility] Last Admin: 10/16/16 10:50 Dose: 1 tab - Labs Labs: 10/17/16 05:32 10/17/16 05:32 PT 14.5 Seconds (9.9-11.8) H 10/17/16 05:32 INR 1.34 (0.93-1.08) H 10/17/16 05:32 APTT 33.4 Seconds (23.7-30.8) H 10/17/16 05:32 Attending/Attestation - Attestation I have personally seen and examined this patient.: Yes I have fully participated in the care of the patient.: Yes I have reviewed all pertinent clinical information, including history, physical exam and plan: Yes Notes (Text): Patient is a 56 year old male with an initial presentation of AMS in the setting of persistent hypokalemia and alcohol withdrawal now intubated 1.Respiratory Failure; had T max of 101.6. not able to wean the patient secondary to mental status. patient might need tracheostomy. Case discussed with patient's in detail about possible tracheostomy and LTAC placement. 2.Acute renal failure most likely secondary to glomerulonephritis.BUN is 102. Creatinine is 2.9. urine output is improving. monitor closely. 3.Thrombocytopenia;secondary to alcohol-induced bone marrow suppression. Platelet is 74. bleeding precautions in place. 4.EtOh abuse; withdrawal symptoms resolved. Ativan as needed. 5.Ascites; s/p ascitic fluid removed on 10/05. culture growth negative so far. 6.GI: Hepatic encephalopathy; repeat head CT is negative. Continue Lactulose Continue with Vital AF tube feedings as 45ml/hr. 7.Anemia:no active bleeding. HB is 8.8. 8.Sepsis/Fungemia; still spiking temperature. Repeat Blood cs is negative. Grew Kamille Albicans Continue Micafungin,, Merem and zyvox. Got 1 dose of gentamicin. Started on doxycycline. 9.C Diff infection. on po Vancomycin GI/DVT prophylaxis with SCD. prognosis is poor. Case discussed with patient's in detail regarding discharge plan. Case discussed with telephonic nurse case manager in detail.
--- NOTE | 2016-10-16 18:30 | CP.PCM.PN ---
Subjective - Date & Time of Evaluation Date of Evaluation: 10/16/16 Time of Evaluation: 11:00 - Subjective Subjective: Patient with increased stool output via flexiseal; family opting for tracheostomy; Objective - Vital Signs/Intake and Output Vital Signs (last 24 hours): Temp Pulse Resp BP Pulse Ox 100.6 F H 95 H 33 H 115/64 97 10/16/16 17:00 10/16/16 17:00 10/16/16 08:18 10/16/16 17:00 10/16/16 16:00 Intake and Output: 10/16/16 10/16/16 06:59 18:59 Intake Total 1100 Output Total 1425 Balance -325 - Medications Medications: Current Medications Albuterol/Ipratropium (Duoneb 3 Mg/0.5 Mg (3 Ml) Ud) 3 ml IH [id number] [facility] Last Admin: 10/16/16 13:24 Dose: 3 ml Artificial Tears (Artificial Tears Opht Oint) 1 gm OU Q6 [facility] Last Admin: 10/16/16 15:14 Dose: 1 gm Folic Acid (Folic Acid) 1 mg PO DAILY [facility] Last Admin: 10/16/16 10:58 Dose: 1 mg Micafungin Sodium 100 mg/ (Sodium Chloride) 100 mls @ 100 mls/hr IV DAILY [facility] PRN Reason: Protocol Stop: 10/17/16 10:01 Last Admin: 10/16/16 11:00 Dose: 100 mls/hr Meropenem 500 mg/ Sodium (Chloride) 100 mls @ 100 mls/hr IVPB Q12 [facility] PRN Reason: Protocol Stop: 10/21/16 07:07 Last Admin: 10/16/16 11:01 Dose: 100 mls/hr Gentamicin Sulfate 270 mg/ (Sodium Chloride) 106.75 mls @ 106.75 mls/hr IVPB ONCE [facility] Last Admin: 10/16/16 12:00 Dose: 106.75 mls/hr Doxycycline Hyclate 100 mg/ (Sodium Chloride) 100 mls @ 100 mls/hr IVPB Q12 [facility] PRN Reason: Protocol Stop: 10/23/16 10:01 Last Admin: 10/16/16 11:00 Dose: 100 mls/hr Dextrose (Dextrose 5% In Water 1000 Ml) 1,000 mls @ 150 mls/hr IV .Q6H40M [facility] Sodium Chloride (Sodium Chloride 0.9%) 1,000 mls @ 50 mls/hr IV .Q20H [facility] Last Admin: 10/16/16 15:20 Dose: 50 mls/hr Linezolid (Zyvox 600mg/300ml D5w) 600 mg in 300 mls @ 200 mls/hr IVPB Q12 [facility] PRN Reason: Protocol Stop: 10/23/16 10:46 Last Admin: 10/16/16 12:06 Dose: 200 mls/hr Lactulose (Enulose) 20 gm PO TID [facility] Last Admin: 10/16/16 10:57 Dose: 20 gm Lorazepam (Ativan) 2 mg IVP Q2H PRN; Protocol PRN Reason: Agitation Last Admin: 10/07/16 05:33 Dose: 2 mg Metoclopramide HCl (Reglan) 10 mg IVP Q6H PRN PRN Reason: Other Last Admin: 10/09/16 17:13 Dose: 10 mg Midodrine (Proamatine) 5 mg PO TID [facility] Last Admin: 10/16/16 10:40 Dose: 5 mg Pantoprazole Sodium (Protonix Inj) 40 mg IVP DAILY [facility] Last Admin: 10/16/16 10:40 Dose: 40 mg Thiamine HCl (Vitamin B1 Tab) 100 mg PO DAILY [facility] Last Admin: 10/16/16 10:00 Dose: 100 mg Vancomycin HCl (Vancocin 25 Mg/Ml (Oral Use)) 125 mg PO Q6H [facility] PRN Reason: Protocol Last Admin: 10/16/16 11:02 Dose: 125 mg Vitamin A (Vitamin A & D Oint Ud Foilpak) 1 ea TOP DAILY [facility] Last Admin: 10/16/16 10:57 Dose: 1 ea Vitamin B Complex/Vit C/Folic Acid (Nephro-Mariann) 1 tab PO 0800 [facility] Last Admin: 10/16/16 10:50 Dose: 1 tab - Labs Labs: 10/16/16 07:30 10/16/16 07:30 PT 16.1 Seconds (9.9-11.8) H 10/10/16 11:48 INR 1.49 (0.93-1.08) H 10/10/16 11:48 APTT 30.3 Seconds (23.7-30.8) 10/10/16 11:48 - Constitutional Appears: Toxic - ENT Exam ENT Exam: Mucous Membranes Moist - Neck Exam Additional comments: intubated; - Respiratory Exam Respiratory Exam: Clear to Ausculation Bilateral Additional comments: tachypneic; - Cardiovascular Exam Cardiovascular Exam: +S1, +S2 - GI/Abdominal Exam GI & Abdominal Exam: Distended, Soft - Exam Additional comments: terrell in place; - Neurological Exam Additional comments: minimal eye opening to tactile stimuli; does move eyes spontaneously; - Skin Skin Exam: Warm. absent: Cyanosis Assessment and Plan (1) Acute renal failure Assessment & Plan: Likely secondary to GN due to underlying hep C; renal function slowly improving although BUN increasing indicating pre-renal component in the setting of increased stool losses (~1L/day); non-oliguric; s/p 1 dose solumedrol 1 g 9 days ago; may benefit from further doses but in setting of persistent fevers will hold off for now; ideally needs renal biopsy but is likely not stable for such a procedure due to respiratory status (still very tachypneic); No urgent indication for [employer] at this time; -Starting NS at 75 cc/hr; Status: Acute (2) Acute hypercapnic respiratory failure Assessment & Plan: Still mild hypercapnea despite marked tachypnea; will need trach if family decides not to extubate; Status: Acute (3) Hypokalemia Assessment & Plan: Resolved but in the setting of increased stool losses, need to monitor and replenish prn; Status: Acute (4) Hypocalcemia Status: Resolved (5) SIRS (systemic inflammatory response syndrome) Assessment & Plan: Sepsis with C diff, fungemia and now gram neg randy in sputum; started on genta yesterday, received another dose today; not ideal given renal insufficiency but may have to tolerate in setting of peristent fevers despite being on meropenem; -checking genta trough in am; Status: Acute
--- NOTE | 2016-10-16 18:31 | CT ---
PROCEDURE: CT HEAD WITHOUT CONTRAST. HISTORY: r/o acute bleed COMPARISON: Comparison is made to the previous study dated 10/11/2016 TECHNIQUE: Axial computed tomography images were obtained through the head/brain without intravenous contrast. Radiation dose: Total exam DLP = 895.79 mGy-cm. This CT exam was performed using one or more of the following dose reduction techniques: Automated exposure control, adjustment of the mA and/or kV according to patient size, and/or use of iterative reconstruction technique. FINDINGS: HEMORRHAGE: No intracranial hemorrhage. BRAIN: No mass effect or edema. No atrophy or chronic microvascular ischemic changes. VENTRICLES: Unremarkable. No hydrocephalus. CALVARIUM: Unremarkable. PARANASAL SINUSES: Unremarkable as visualized. No significant inflammatory changes. MASTOID AIR CELLS: Unremarkable as visualized. No inflammatory changes. OTHER FINDINGS: None. IMPRESSION: No evidence of acute intracranial hemorrhage intracranial collection mass effect or midline shift. No significant interval change compared to the previous exam.
[2016-10-16] MEDS: Sodium Chloride 0.9% 1,000 ML IV SCH (18:40)
[2016-10-16] MEDS ORDERED: Linezolid 600 mg in D5W 300 ml 600 MG/300 ML BAG IVPB STA (21:33)
[2016-10-17] MEDS: Albuterol-Ipratrop 3 mg / 0.5 (3 ml) UD IH SCH ×4 (01:16→19:50)
[2016-10-17] MEDS: Vancomycin 25 MG/ML PO SCH ×5 (05:01→22:34)
[2016-10-17] MEDS: Mineral Oil/Petrolatum Opht Oint(3.5 gm) OU SCH ×4 (05:02→17:14)
[2016-10-17 05:46] LABS: BASO # 0.01 K/mm3 (0.0-2.0); BASO % 0.2 % (0.0-3.0); EOS % 0.2 % (1.5-5.0); GRAN # 4.59 (1.4-6.5); GRAN % 71.8 % (50.0-68.0); HEMATOCRIT 24.5 % (42.0-52.0); LYMPH # 1.6 (1.2-3.4); LYMPH % 24.5 % (22.0-35.0); MEAN CELL VOLUME 102.9 fl (80.0-105.0); MEAN CORPUSCULAR HEMOGLOBIN 31.9 pg (25.0-35.0); MEAN PLATELET VOLUME 11.6 fl (7.0-11.0); MONO # 0.2 (0.1-0.6); MONO % 3.3 % (1.0-6.0); RED CELL DISTRIBUTION WIDTH 16.2 % (11.5-14.5); WHITE BLOOD COUNT 6.4 10^3/ul (4.5-11.0)
[2016-10-17 06:07] LABS: BILIRUBIN,TOTAL 1.7 mg/dL (0.2-1.3); CALCIUM 7.6 mg/dL (8.4-10.5); POTASSIUM 3.5 mmol/L (3.6-5.0); TOTAL PROTEIN 5.2 g/dL (5.8-8.3)
[2016-10-17 06:54] LABS: INR 1.34 (0.93-1.08); PARTIAL THROMBOPLASTIN TIME 33.4 Seconds (23.7-30.8)
[2016-10-17 06:56] LABS: ALB/GLOB RATIO 0.7 (1.1-1.8)
[2016-10-17] MEDS: Multivitamin Vitamin B Complex (Nephro-Vite) Tab PO SCH (08:09)
[2016-10-17] MEDS: Sodium Chloride 0.9% 1,000 ML IV SCH ×2 (08:10→19:35)
--- NOTE | 2016-10-17 08:56 | RAD ---
HISTORY: DobbHoff placement COMPARISON: 10/16/2016 FINDINGS: LUNGS: No active pulmonary disease. PLEURA: Probable small left pleural effusion. Right costophrenic angle not included on this film. No gross right pleural effusion. No pneumothorax. CARDIOVASCULAR: Endotracheal tube and nasogastric tube grossly unchanged. OSSEOUS STRUCTURES: No significant abnormalities. VISUALIZED UPPER ABDOMEN: Normal. OTHER FINDINGS: None. IMPRESSION: Small left pleural effusion. No acute infiltrate.
--- NOTE | 2016-10-17 10:12 | CP.PCM.PN ---
<Justo Torres - Last Filed: 10/17/16 10:18> Subjective - Date & Time of Evaluation Date of Evaluation: 10/17/16 Time of Evaluation: 07:09 - Subjective Subjective: Patient was seen and examined at bedside. The patient remains intubated at this time. No acute events overnight per nursing documentation. ROS unobtainable due to his current condition. Objective - Vital Signs/Intake and Output Vital Signs (last 24 hours): Temp Pulse Resp BP Pulse Ox 99.5 F 83 28 H 94/54 L 100 10/17/16 06:00 10/17/16 06:00 10/17/16 07:17 10/17/16 06:00 10/17/16 07:17 Intake and Output: 10/17/16 10/17/16 06:59 18:59 Intake Total 3865 Output Total 1100 Balance 2765 - Medications Medications: Current Medications Albuterol/Ipratropium (Duoneb 3 Mg/0.5 Mg (3 Ml) Ud) 3 ml IH [id number] [facility] Last Admin: 10/17/16 07:10 Dose: 3 ml Artificial Tears (Artificial Tears Opht Oint) 1 gm OU Q6 [facility] Last Admin: 10/17/16 05:02 Dose: 1 applic Folic Acid (Folic Acid) 1 mg PO DAILY [facility] Last Admin: 10/16/16 10:58 Dose: 1 mg Meropenem 500 mg/ Sodium (Chloride) 100 mls @ 100 mls/hr IVPB Q12 [facility]ONI PRN Reason: Protocol Stop: 10/21/16 07:07 Last Admin: 10/16/16 22:00 Dose: 100 mls/hr Gentamicin Sulfate 270 mg/ (Sodium Chloride) 106.75 mls @ 106.75 mls/hr IVPB ONCE [facility]ONI Last Admin: 10/16/16 12:00 Dose: 106.75 mls/hr Doxycycline Hyclate 100 mg/ (Sodium Chloride) 100 mls @ 100 mls/hr IVPB Q12 [facility]ONI PRN Reason: Protocol Stop: 10/23/16 10:01 Last Admin: 10/16/16 22:05 Dose: 100 mls/hr Dextrose (Dextrose 5% In Water 1000 Ml) 1,000 mls @ 150 mls/hr IV .Q6H40M [facility]ONI Last Admin: 10/17/16 08:08 Dose: 150 mls/hr Linezolid (Zyvox 600mg/300ml D5w) 600 mg in 300 mls @ 200 mls/hr IVPB Q12 [facility]ONI PRN Reason: Protocol Stop: 10/23/16 10:46 Last Admin: 10/16/16 12:06 Dose: 200 mls/hr Sodium Chloride (Sodium Chloride 0.9%) 1,000 mls @ 75 mls/hr IV .[id number] TONI Last Admin: 10/17/16 08:10 Dose: 75 mls/hr Lactulose (Enulose) 20 gm PO TID TONI Last Admin: 10/16/16 19:24 Dose: 20 gm Lorazepam (Ativan) 2 mg IVP Q2H PRN; Protocol PRN Reason: Agitation Last Admin: 10/07/16 05:33 Dose: 2 mg Metoclopramide HCl (Reglan) 10 mg IVP Q6H PRN PRN Reason: Other Last Admin: 10/09/16 17:13 Dose: 10 mg Midodrine (Proamatine) 5 mg PO TID TONI Last Admin: 10/16/16 19:24 Dose: 5 mg Pantoprazole Sodium (Protonix Inj) 40 mg IVP DAILY [facility] Last Admin: 10/16/16 10:40 Dose: 40 mg Thiamine HCl (Vitamin B1 Tab) 100 mg PO DAILY [facility] Last Admin: 10/16/16 10:00 Dose: 100 mg Vancomycin HCl (Vancocin 25 Mg/Ml (Oral Use)) 125 mg PO Q6H [facility]ONI PRN Reason: Protocol Last Admin: 10/17/16 05:01 Dose: 125 mg Vitamin A (Vitamin A & D Oint Ud [facility] ([place], [place])k) 1 ea TOP DAILY [facility]ON[facility] Last Admin: 10/16/16 10:57 Dose: 1 ea Vitamin B Complex/Vit C/Folic Acid (Nephro-Mariann) 1 tab PO 0800 TONI Last Admin: 10/17/16 08:09 Dose: 1 tab - Labs Labs: 10/17/16 05:32 10/17/16 05:32 PT 14.5 Seconds (9.9-11.8) H 10/17/16 05:32 INR 1.34 (0.93-1.08) H 10/17/16 05:32 APTT 33.4 Seconds (23.7-30.8) H 10/17/16 05:32 - Head Exam Head Exam: ATRAUMATIC, NORMAL INSPECTION, NORMOCEPHALIC - Eye Exam Eye Exam: EOMI, Normal appearance, PERRL. absent: Periorbital tenderness Pupil Exam: NORMAL ACCOMODATION, PERRL - ENT Exam ENT Exam: Mucous Membranes Moist, Normal Exam - Neck Exam Neck Exam: Normal Inspection - Respiratory Exam Respiratory Exam: Clear to Ausculation Bilateral, NORMAL BREATHING PATTERN. absent: Rales, Rhonchi - Cardiovascular Exam Cardiovascular Exam: REGULAR RHYTHM, +S1, +S2 - GI/Abdominal Exam GI & Abdominal Exam: Firm, Normal Bowel Sounds - Back Exam Additional comments: bed ulcers noted per Nursing staff - Skin Skin Exam: Mottled Assessment and Plan - Assessment and Plan (Free Text) Assessment: 56 year old male with an initial presentation of AMS in the setting of persistent hypokalemia and alcohol withdrawal, which resolved. Patient was then intubated after he was found to be in hypercapnic respiratory failure and subsequently became hemodynamically unstable requiring dual vasopressor support. His presentation is consistent with distributive shock likely from either acute decompensated chronic liver failure or sepsis from C. Diff colitis , with multiorgan dysfunction syndrome including renal failure, encephalopathy and respiratory failure. Patient is no longer requiring vasopressin or levophed for hemodynamic support but is on midodrine. Patient is currently unresponsive to verbal or tactile stimuli off of sedation. Patient is has been transitioned from PRVC to PS/CPAP Plan: Pulmonary: Hypercapnic Respiratory Failure -Patient intubated on 10/05. Today: FiO2= 40%, RR=26, PEEP+5, and Tidal Volume + 400 ml, O2 saturation+97% -ABG: pCO2+43, pO2+97, pH+7.27 -Patient hypotension slightly (100/66) and remains off pressors. -Cardio following -CXR shows no active pulmonary disease. -Continue to monitor vital signs. -Continue Duonebs 3ml IHQ6 HRESP for wheezing symptoms. Renal: Acute renal failure most likely secondary to glomerulonephritis -BUN 103(down from 106) and Creatinine is 3.1(up from 3.0). -Urine total protein-897 and Urine Microalbumin >950. -Nephrology consult note appreciated. -No acute indications for HD at this time. Urine output remains steady. -Nephrology consult note appreciate- Hematology: Thrombocytopenia -Plt count now 74(down from 77) s/p 4 units of Platelets transfused. Continue to monitor plt count and consider another transfusion if patient drops below 20. -Patient currently has no active bleeds. Monitor for bleeding. EtOh Withdrawal -Continue Ativan 2mg IVP Q2H PRN for alcohol withdrawal symptoms. -Continue Thiamine, Folic acid and MV supplementation Ascites -s/p ascitic fluid removed on 10/05. -culture growth negative after 5 days. GI: Hepatic encephalopathy -Continue Rifaxamin, Lactulose -Rectal tube in place and currently draining 800-900 cc per shift per nursing staff. -Continue with Vital AF tube feedings as 30ml/hr. Anemia -Stool occult blood positive on 10/05. -Hgb is 7.6(down from 8.8) and Hct is 24.5(down from 28.6) Patient is s/p 3 units leukocyte reduced PRBC's. Continue to monitor H/H levels with serial CBC' s. Consider Transfusion if Hgb falls below 7. Sepsis/Fungemia -Grew Kamille Albicans -Sputum culture grew Pseudomonas [place]. -Continue Micafungin (renal dosing) -Patient continues to spike fevers. Started Zyvox and Doxycycline. Will continue to monitor closely. -Continue Merrem, Vancomycin C Diff infection. -Continue Vancomycin -Repeat stool sample. Hypokalemia -Potassium today 3.5. Will continue to replete as needed. Will continue to monitor electrolyte levels with serial cmp's. GI ppx -Continue Protonix DVT ppx. <Mell Gauthier - Last Filed: 10/18/16 14:10> Objective - Vital Signs/Intake and Output Vital Signs (last 24 hours): Temp Pulse Resp BP Pulse Ox 99.7 F H 90 29 H 111/71 96 10/18/16 14:00 10/18/16 14:00 10/18/16 07:14 10/18/16 14:00 10/18/16 14:00 Intake and Output: 10/18/16 10/18/16 06:59 18:59 Intake Total 4160 Output Total 1900 Balance 2260 - Medications Medications: Current Medications Albuterol/Ipratropium (Duoneb 3 Mg/0.5 Mg (3 Ml) Ud) 3 ml IH [id number] [facility] Last Admin: 10/18/16 13:18 Dose: 3 ml Artificial Tears (Artificial Tears Opht Oint) 1 gm OU Q6 [facility] Last Admin: 10/18/16 11:08 Dose: 3.5 applic Folic Acid (Folic Acid) 1 mg PO DAILY [facility] Last Admin: 10/18/16 09:12 Dose: 1 mg Meropenem 500 mg/ Sodium (Chloride) 100 mls @ 100 mls/hr IVPB Q12 [facility]ONI PRN Reason: Protocol Stop: 10/21/16 07:07 Last Admin: 10/18/16 09:17 Dose: 100 mls/hr Gentamicin Sulfate 270 mg/ (Sodium Chloride) 106.75 mls @ 106.75 mls/hr IVPB ONCE [facility] Last Admin: 10/17/16 11:42 Dose: 106.75 mls/hr Doxycycline Hyclate 100 mg/ (Sodium Chloride) 100 mls @ 100 mls/hr IVPB Q12 TONI PRN Reason: Protocol Stop: 10/23/16 10:01 Last Admin: 10/18/16 10:03 Dose: 100 mls/hr Dextrose (Dextrose 5% In Water 1000 Ml) 1,000 mls @ 150 mls/hr IV .Q6H40M [facility] Last Admin: 10/17/16 22:35 Dose: 150 mls/hr Sodium Chloride (Sodium Chloride 0.9%) 1,000 mls @ 100 mls/hr IV .Q10H [facility] Last Admin: 10/18/16 05:39 Dose: 100 mls/hr Micafungin Sodium 100 mg/ (Sodium Chloride) 100 mls @ 100 mls/hr IV DAILY [facility] PRN Reason: Protocol Stop: 10/25/16 10:01 Last Admin: 10/18/16 11:07 Dose: 100 mls/hr Lactulose (Enulose) 20 gm PO TID [facility] Last Admin: 10/18/16 09:19 Dose: 20 gm Lorazepam (Ativan) 2 mg IVP Q2H PRN; Protocol PRN Reason: Agitation Last Admin: 10/07/16 05:33 Dose: 2 mg Metoclopramide HCl (Reglan) 10 mg IVP Q6H PRN PRN Reason: Other Last Admin: 10/18/16 09:19 Dose: 10 mg Midodrine (Proamatine) 5 mg PO TID [facility] Last Admin: 10/18/16 09:12 Dose: 5 mg Pantoprazole Sodium (Protonix Inj) 40 mg IVP DAILY [facility] Last Admin: 10/18/16 09:19 Dose: 40 mg Thiamine HCl (Vitamin B1 Tab) 100 mg PO DAILY [facility] Last Admin: 10/18/16 09:12 Dose: 100 mg Vancomycin HCl (Vancocin 25 Mg/Ml (Oral Use)) 125 mg PO Q6H [facility] PRN Reason: Protocol Last Admin: 10/18/16 11:13 Dose: 125 mg Vitamin A (Vitamin A & D Oint Ud [employer]) 1 ea TOP DAILY [facility] Last Admin: 10/18/16 09:17 Dose: 1 ea Vitamin B Complex/Vit C/Folic Acid (Nephro-Mariann) 1 tab PO 0800 [facility] Last Admin: 10/18/16 07:51 Dose: 1 tab - Labs Labs: 10/18/16 05:10 10/18/16 05:10 PT 14.5 Seconds (9.9-11.8) H 10/17/16 05:32 INR 1.34 (0.93-1.08) H 10/17/16 05:32 APTT 33.4 Seconds (23.7-30.8) H 10/17/16 05:32 Attending/Attestation - Attestation I have personally seen and examined this patient.: Yes I have fully participated in the care of the patient.: Yes I have reviewed all pertinent clinical information, including history, physical exam and plan: Yes Notes (Text): 10/18/16 14:07 Patient is a 56 year old male with an initial presentation of AMS in the setting of persistent hypokalemia and alcohol withdrawal now intubated 1.Respiratory Failure; had T max of 101.6. not able to wean the patient secondary to mental status. patient might need tracheostomy. Case discussed with patient's in detail about possible tracheostomy and LTAC placement. 2.Acute renal failure most likely secondary to glomerulonephritis.BUN is 102. Creatinine is 3.1. urine output is improving. monitor closely. 3.Thrombocytopenia;secondary to alcohol-induced bone marrow suppression. Platelet is 74. bleeding precautions in place. 4.GI: Hepatic encephalopathy; repeat head CT is negative. Continue Lactulose Continue with Vital AF tube feedings as 45ml/hr. 5.Sepsis/Fungemia; still spiking temperature. Repeat Blood cs is negative. Grew Kamille Albicans Continue Micafungin,, Merem and zyvox. Got 1 dose of gentamicin. Started on doxycycline. 6.C Diff infection. on po Vancomycin GI/DVT prophylaxis with SCD. prognosis is poor.
[2016-10-17] MEDS: Micafungin 100 MG in Sodium Chloride 0.9% 100 ML IV SCH (10:13)
[2016-10-17] MEDS: Meropenem 500 MG in Sodium Chloride 0.9% 100 ML IVPB SCH ×2 (10:15→22:31)
[2016-10-17] MEDS: Vitamins A & D Oint UD Foilpak TOP SCH (10:18)
[2016-10-17] MEDS: Linezolid 600 mg in D5W 300 ml 600 MG/300 ML BAG IVPB SCH ×2 (10:18→22:33)
--- NOTE | 2016-10-17 10:52 | CP.CCUPN ---
CCU Subjective - Physician Review Events Since Last Encounter (Free Text): 10/17/16 10:49 No acute events overnight.No further fevers or tachycardia CCU Objective - Vital Signs / Intake & Output Vital Signs (Last 4 hours): Vital Signs Resp Pulse Ox 10/17/16 07:17 28 H 100 Intake and Output (Last 8hrs): Intake & Output 10/16/16 10/17/16 10/17/16 22:59 06:59 14:59 Intake Total 2904 2900 Output Total 900 1100 Balance 2003 1800 Weight 206 lb 8 oz Intake: IV 2139 2600 D5 in water 1164 Right Forearm 1500 Right Hand 600 medication 600 500 saline 375 Tube Feeding 315 300 Other 450 Output: Urine 400 600 Urethral (Vyas) 400 600 Stool 500 500 Other: Voiding Method Indwelling Catheter - Physical Exam Head: Positive for: Atraumatic, Normocephalic Pupils: Positive for: PERRL, Sluggish Conjunctiva: Positive for: Normal Ears: Positive for: Normal Mouth: Positive for: Moist Mucous Membranes, Other (ET and OG tube in position in oral cavity) Nose (External): Positive for: Atraumatic Neck: Positive for: Normal Range of Motion, Trachea Midline. Negative for: Lymphadenopathy Respiratory/Chest: Positive for: Clear to Auscultation, Good Air Exchange, Tachypneic, Other (Mechanical ventilation). Negative for: Respiratory Distress , Accessory Muscle Use, Wheezes, Decreased Breath Sounds, Retracting, Rhonchi Cardiovascular: Positive for: Regular Rate and Rhythm, Normal S1, S2. Negative for: Murmurs Abdomen: Positive for: Normal Bowel Sounds, Other (Paracentesis site with sutures, no signs of infection, dressing clean, dry and intact; shifting dullness). Negative for: Tenderness, Distention, Peritoneal Signs Genitourinary Male: Positive for: Testicle Swelling (Improved), Other (Vyas in place) Back: Positive for: Normal Inspection Upper Extremity: Positive for: Edema (1+ pitting edema B/L UE). Negative for: Normal Inspection (Multiple areas of ecchymoses), Cyanosis Lower Extremity: Positive for: Edema (1+ Pitting edema B/L up to thighs). Negative for: Normal Inspection Neurological: Positive for: Other (Gag and corneal reflex intact; ability to track motion with eyes intact). Negative for: GCS=15 (GCS of 3T), CN II-XII Intact, Speech Normal Skin: Positive for: Warm, Other (Areas of serous weeping from multiple areas of skin). Negative for: Rashes, Normal Color (multiple ecchymoses over UE B/L) Psychiatric: Negative for: Alert (arousable to tactile stimuli), Oriented x 3, Normal Insight, Normal Concentration - Medications Active Medications: Active Medications Generic Name Dose Route Start Last Admin Trade Name Smitha PRN Reason Stop Dose Admin Albuterol/Ipratropium 3 ml 10/05/16 08:00 10/17/16 07:10 Duoneb 3 Mg/0.5 Mg (3 Ml) Ud IH 3 ml [id number] TONI Administration Artificial Tears 1 gm 10/10/16 18:00 10/17/16 05:02 Artificial Tears Opht Oint OU 1 applic Q6 TONI Administration Folic Acid 1 mg 10/03/16 10:00 10/17/16 10:18 Folic Acid PO 1 mg DAILY TONI Administration Meropenem 500 mg/ Sodium 100 mls @ 100 mls/hr 10/14/16 07:06 10/17/16 10:15 Chloride IVPB 10/21/16 07:07 100 mls/hr Q12 TONI Administration Protocol Gentamicin Sulfate 270 mg/ 106.75 mls @ 106.75 mls/hr 10/15/16 10:00 12:00 Sodium Chloride IVPB 106.75 mls/hr ONCE TONI Administration Doxycycline Hyclate 100 mg/ 100 mls @ 100 mls/hr 10/16/16 10:00 10/17/16 10: 14 Sodium Chloride IVPB 10/23/16 10:01 100 mls/hr Q12 TONI Administration Protocol Dextrose 1,000 mls @ 150 mls/hr 10/16/16 09:33 10/17/16 08:08 Dextrose 5% In Water 1000 Ml IV 150 mls/hr .[id number] TONI Administration Linezolid 600 mg in 300 mls @ 200 mls/hr 10/16/16 10:45 10/17/16 10:18 Zyvox 600mg/300ml D5w IVPB 10/23/16 10:46 200 mls/hr Q12 TONI Administration Protocol Sodium Chloride 1,000 mls @ 75 mls/hr 10/16/16 18:37 10/17/16 08:10 Sodium Chloride 0.9% IV 75 mls/hr .[id number] TONI Administration Lactulose 20 gm 10/11/16 10:00 10/17/16 10:12 Enulose PO 20 gm TID TONI Administration Lorazepam 2 mg 10/02/16 21:28 10/07/16 05:33 Ativan IVP 2 mg Q2H PRN Administration Agitation Protocol Metoclopramide HCl 10 mg 10/09/16 16:56 10/17/16 10:17 Reglan IVP 10 mg Q6H PRN Administration Other Midodrine 5 mg 10/09/16 10:00 10/17/16 10:17 Proamatine PO 5 mg TID TONI Administration Pantoprazole Sodium 40 mg 10/03/16 10:00 10/17/16 10:17 Protonix Inj IVP 40 mg DAILY TONI Administration Thiamine HCl 100 mg 10/03/16 10:00 10/17/16 10:17 Vitamin B1 Tab PO 100 mg DAILY TONI Administration Vancomycin HCl 125 mg 10/03/16 11:00 10/17/16 10:19 Vancocin 25 Mg/Ml (Oral Use) PO 125 mg Q6H TONI Administration Protocol Vitamin A 1 ea 10/03/16 10:00 10/17/16 10:18 Vitamin A & D Oint Ud Foilpak TOP 1 ea DAILY TONI Administration Vitamin B Complex/Vit C/Folic Acid 1 tab 10/03/16 08:00 10/17/16 08:09 Nephro-Mariann PO 1 tab 0800 TONI Administration - Patient Studies Lab Studies: Microbiology Studies 10/14/16 14:10 Gram Stain - Final Sputum Sputum Culture - Final Pseudomonas Aeruginosa 10/14/16 08:00 Blood Culture - Preliminary Blood NO GROWTH AFTER 3 DAYS 10/11/16 07:40 Blood Culture - Final Blood-Venous NO GROWTH AFTER 5 DAYS Gram Stain - Final TEST NOT PERFORMED 10/11/16 07:10 Blood Culture - Final Blood-Venous NO GROWTH AFTER 5 DAYS Gram Stain - Final TEST NOT PERFORMED Lab Studies 10/17/16 10/17/16 10/17/16 Range/Units 07:40 05:32 05:32 WBC (4.5-11.0) 10^3/ul RBC (3.5-6.1) 10^6/uL Hgb (14.0-18.0) g/dL Hct (42.0-52.0) % MCV (80.0-105.0) fl MCH (25.0-35.0) pg MCHC (31.0-37.0) g/dl RDW (11.5-14.5) % Plt Count (120.0-450.0) 10^3/uL MPV (7.0-11.0) fl Gran % (50.0-68.0) % Lymph % (Auto) (22.0-35.0) % [place] % (Auto) (1.0-6.0) % Eos % (Auto) (1.5-5.0) % Baso % (Auto) (0.0-3.0) % Gran # (1.4-6.5) Lymph # (1.2-3.4) [place] # (0.1-0.6) Eos # (0.0-0.7) Baso # (0.0-2.0) K/mm3 PT 14.5 H (9.9-11.8) Seconds INR 1.34 H (0.93-1.08) APTT 33.4 H (23.7-30.8) Seconds pCO2 (35-45) mm/Hg pO2 (80-100) mm/Hg HCO3 (21-28) mmol/L ABG pH (7.35-7.45) ABG Total CO2 (22-28) mmol.L ABG O2 Saturation (95-98) % ABG O2 Content (15-23) ML/dl ABG Base Excess (-2.0-3.0) mmol/L ABG Hemoglobin (11.7-17.4) g/dL ABG Carboxyhemoglobin (0.5-1.5) % POC ABG HHb (Measured) (0-5) % ABG Methemoglobin (0.0-3.0) % ABG O2 Capacity (16-24) mL/dl Hgb O2 Saturation (95.0-98.0) % FiO2 % Sodium 149 H (132-148) mmol/L Potassium 3.5 L (3.6-5.0) mmol/L Chloride 117 H (95-110) mmol/L Carbon Dioxide 22 (21-33) mmol/L Anion Gap 14 (10-20) BUN 103 H (7-21) mg/dL Creatinine 3.1 H (0.5-1.4) mg/dL Est GFR ( Amer) 25 Est GFR (Non-Af Amer) 21 POC Glucose (mg/dL) 137 H (65-110) mg/dL Random Glucose 107 (70-110) mg/dL Uric Acid (3.5-8.5) mg/dL Calcium 7.6 L (8.4-10.5) mg/dL Total Bilirubin 1.7 H (0.2-1.3) mg/dL AST 62 H (17-59) U/L ALT 46 (7-56) U/L Alkaline Phosphatase 81 (38-126) U/L Total Protein 5.2 L (5.8-8.3) g/dL Albumin 2.1 L (3.0-4.8) g/dL Globulin 3.2 gm/dL Albumin/Globulin Ratio 0.7 L (1.1-1.8) PTH Intact Whole Molec (14-64) pg/mL 10/17/16 10/16/16 10/16/16 Range/Units 05:32 22:02 11:25 WBC 6.4 D (4.5-11.0) 10^3/ul RBC 2.38 L (3.5-6.1) 10^6/uL Hgb 7.6 L (14.0-18.0) g/dL Hct 24.5 L (42.0-52.0) % MCV 102.9 (80.0-105.0) fl MCH 31.9 (25.0-35.0) pg MCHC 31.0 (31.0-37.0) g/dl RDW 16.2 H (11.5-14.5) % Plt Count 74 L (120.0-450.0) 10^3/uL MPV 11.6 H (7.0-11.0) fl Gran % 71.8 H (50.0-68.0) % Lymph % (Auto) 24.5 (22.0-35.0) % [place] % (Auto) 3.3 (1.0-6.0) % Eos % (Auto) 0.2 L (1.5-5.0) % Baso % (Auto) 0.2 (0.0-3.0) % Gran # 4.59 (1.4-6.5) Lymph # 1.6 (1.2-3.4) [place] # 0.2 (0.1-0.6) Eos # 0.0 (0.0-0.7) Baso # 0.01 (0.0-2.0) K/mm3 PT (9.9-11.8) Seconds INR (0.93-1.08) APTT (23.7-30.8) Seconds pCO2 43 (35-45) mm/Hg pO2 97.0 (80-100) mm/Hg HCO3 19.7 L (21-28) mmol/L ABG pH 7.27 L (7.35-7.45) ABG Total CO2 21.0 L (22-28) mmol.L ABG O2 Saturation 99.0 H (95-98) % ABG O2 Content 11.3 L (15-23) ML/dl ABG Base Excess -6.8 L (-2.0-3.0) mmol/L ABG Hemoglobin 8.3 L (11.7-17.4) g/dL ABG Carboxyhemoglobin 2.3 H (0.5-1.5) % POC ABG HHb (Measured) 1.0 (0-5) % ABG Methemoglobin 1.4 (0.0-3.0) % ABG O2 Capacity 11.4 L (16-24) mL/dl Hgb O2 Saturation 95.3 (95.0-98.0) % FiO2 40.0 % Sodium (132-148) mmol/L Potassium (3.6-5.0) mmol/L Chloride (95-110) mmol/L Carbon Dioxide (21-33) mmol/L Anion Gap (10-20) BUN (7-21) mg/dL Creatinine (0.5-1.4) mg/dL Est GFR ( Amer) Est GFR (Non-Af Amer) POC Glucose (mg/dL) 143 H (65-110) mg/dL Random Glucose (70-110) mg/dL Uric Acid (3.5-8.5) mg/dL Calcium (8.4-10.5) mg/dL Total Bilirubin (0.2-1.3) mg/dL AST (17-59) U/L ALT (7-56) U/L Alkaline Phosphatase (38-126) U/L Total Protein (5.8-8.3) g/dL Albumin (3.0-4.8) g/dL Globulin gm/dL Albumin/Globulin Ratio (1.1-1.8) PTH Intact Whole Molec (14-64) pg/mL 10/16/16 10/14/16 Range/Units 07:30 12:30 WBC (4.5-11.0) 10^3/ul RBC (3.5-6.1) 10^6/uL Hgb (14.0-18.0) g/dL Hct (42.0-52.0) % MCV (80.0-105.0) fl MCH (25.0-35.0) pg MCHC (31.0-37.0) g/dl RDW (11.5-14.5) % Plt Count (120.0-450.0) 10^3/uL MPV (7.0-11.0) fl Gran % (50.0-68.0) % Lymph % (Auto) (22.0-35.0) % [place] % (Auto) (1.0-6.0) % Eos % (Auto) (1.5-5.0) % Baso % (Auto) (0.0-3.0) % Gran # (1.4-6.5) Lymph # (1.2-3.4) [place] # (0.1-0.6) Eos # (0.0-0.7) Baso # (0.0-2.0) K/mm3 PT (9.9-11.8) Seconds INR (0.93-1.08) APTT (23.7-30.8) Seconds pCO2 (35-45) mm/Hg pO2 (80-100) mm/Hg HCO3 (21-28) mmol/L ABG pH (7.35-7.45) ABG Total CO2 (22-28) mmol.L ABG O2 Saturation (95-98) % ABG O2 Content (15-23) ML/dl ABG Base Excess (-2.0-3.0) mmol/L ABG Hemoglobin (11.7-17.4) g/dL ABG Carboxyhemoglobin (0.5-1.5) % POC ABG HHb (Measured) (0-5) % ABG Methemoglobin (0.0-3.0) % ABG O2 Capacity (16-24) mL/dl Hgb O2 Saturation (95.0-98.0) % FiO2 % Sodium (132-148) mmol/L Potassium (3.6-5.0) mmol/L Chloride (95-110) mmol/L Carbon Dioxide (21-33) mmol/L Anion Gap (10-20) BUN (7-21) mg/dL Creatinine (0.5-1.4) mg/dL Est GFR ( Amer) Est GFR (Non-Af Amer) POC Glucose (mg/dL) (65-110) mg/dL Random Glucose (70-110) mg/dL Uric Acid 11.1 H (3.5-8.5) mg/dL Calcium (8.4-10.5) mg/dL Total Bilirubin (0.2-1.3) mg/dL AST (17-59) U/L ALT (7-56) U/L Alkaline Phosphatase (38-126) U/L Total Protein (5.8-8.3) g/dL Albumin (3.0-4.8) g/dL Globulin gm/dL Albumin/Globulin Ratio (1.1-1.8) PTH Intact Whole Molec 67 H (14-64) pg/mL Laboratory Results - last 24 hr 10/14/16 10/16/16 10/16/16 12:30 07:30 11:25 WBC RBC Hgb Hct MCV MCH MCHC RDW Plt Count MPV Gran % Lymph % (Auto) [place] % (Auto) Eos % (Auto) Baso % (Auto) Gran # Lymph # [place] # Eos # Baso # PT INR APTT pCO2 43 pO2 97.0 HCO3 19.7 L ABG pH 7.27 L ABG Total CO2 21.0 L ABG O2 Saturation 99.0 H ABG O2 Content 11.3 L ABG Base Excess -6.8 L ABG Hemoglobin 8.3 L ABG Carboxyhemoglobin 2.3 H POC ABG HHb (Measured) 1.0 ABG Methemoglobin 1.4 ABG O2 Capacity 11.4 L Hgb O2 Saturation 95.3 FiO2 40.0 Sodium Potassium Chloride Carbon Dioxide Anion Gap BUN Creatinine Est GFR ( Amer) Est GFR (Non-Af Amer) POC Glucose (mg/dL) Random Glucose Uric Acid 11.1 H Calcium Total Bilirubin AST ALT Alkaline Phosphatase Total Protein Albumin Globulin Albumin/Globulin Ratio PTH Intact Whole Molec 67 H 10/16/16 10/17/16 10/17/16 22:02 05:32 05:32 WBC 6.4 D RBC 2.38 L Hgb 7.6 L Hct 24.5 L MCV 102.9 MCH 31.9 MCHC 31.0 RDW 16.2 H Plt Count 74 L MPV 11.6 H Gran % 71.8 H Lymph % (Auto) 24.5 [place] % (Auto) 3.3 Eos % (Auto) 0.2 L Baso % (Auto) 0.2 Gran # 4.59 Lymph # 1.6 [place] # 0.2 Eos # 0.0 Baso # 0.01 PT INR APTT pCO2 pO2 HCO3 ABG pH ABG Total CO2 ABG O2 Saturation ABG O2 Content ABG Base Excess ABG Hemoglobin ABG Carboxyhemoglobin POC ABG HHb (Measured) ABG Methemoglobin ABG O2 Capacity Hgb O2 Saturation FiO2 Sodium 149 H Potassium 3.5 L Chloride 117 H Carbon Dioxide 22 Anion Gap 14 BUN 103 H Creatinine 3.1 H Est GFR ( Amer) 25 Est GFR (Non-Af Amer) 21 POC Glucose (mg/dL) 143 H Random Glucose 107 Uric Acid Calcium 7.6 L Total Bilirubin 1.7 H AST 62 H ALT 46 Alkaline Phosphatase 81 Total Protein 5.2 L Albumin 2.1 L Globulin 3.2 Albumin/Globulin Ratio 0.7 L PTH Intact Whole Molec 10/17/16 10/17/16 05:32 07:40 WBC RBC Hgb Hct MCV MCH MCHC RDW Plt Count MPV Gran % Lymph % (Auto) [place] % (Auto) Eos % (Auto) Baso % (Auto) Gran # Lymph # [place] # Eos # Baso # PT 14.5 H INR 1.34 H APTT 33.4 H pCO2 pO2 HCO3 ABG pH ABG Total CO2 ABG O2 Saturation ABG O2 Content ABG Base Excess ABG Hemoglobin ABG Carboxyhemoglobin POC ABG HHb (Measured) ABG Methemoglobin ABG O2 Capacity Hgb O2 Saturation FiO2 Sodium Potassium Chloride Carbon Dioxide Anion Gap BUN Creatinine Est GFR ( Amer) Est GFR (Non-Af Amer) POC Glucose (mg/dL) 137 H Random Glucose Uric Acid Calcium Total Bilirubin AST ALT Alkaline Phosphatase Total Protein Albumin Globulin Albumin/Globulin Ratio PTH Intact Whole Molec Fingerstick Blood Sugar Results: 105 Review of Systems - Review of Systems Systems not reviewed;Unavailable: Intubated Critical Care Progress Note - Ventilator Checklist Daily Assessment of Readiness to Wean: Yes Daily Spontaneous Breathing Trial: Yes PUD Prophalyxis: Yes DVT Prophylaxis: Yes Oral Care with Chlorhexidine Gluconate {CHG}: Yes Assessment/Plan - Assessment and Plan (Free Text) Assessment: 56 y/o M w/ Resolving sepsis Yesterday had reccurent fevers and tachycardia and tachypnea. Respiratory failure. Daily SBT trials. Risk for extubation due to mental status and air protection. ABX coverage was broadened w/ Linezolid. WBC trending down. Fevers resolved. Blood and sputum cx pending. Contine Meropenum and Micafungin. Mental status not improving. Likely Uremia as the source. Pt and family refused HD. Pt is DNR/DNI. Family wants Trach placement. PEG placement as well ( ) . DVT P PPI cc time 55 min
[2016-10-17] MEDS: Gentamicin 270 MG in Sodium Chloride 0.9% 100 ML IVPB SCH (11:42)
--- NOTE | 2016-10-17 20:17 | CP.PCM.PN ---
Subjective - Date & Time of Evaluation Date of Evaluation: 10/17/16 Time of Evaluation: 11:00 - Subjective Subjective: Patient still with copious liquid stool output overnight; Objective - Vital Signs/Intake and Output Vital Signs (last 24 hours): Temp Pulse Resp BP Pulse Ox 100.0 F H 80 28 H 107/65 100 10/17/16 18:00 10/17/16 18:00 10/17/16 07:17 10/17/16 18:00 10/17/16 18:00 Intake and Output: 10/17/16 10/18/16 18:59 06:59 Output Total 1600 Balance -1600 - Medications Medications: Current Medications Albuterol/Ipratropium (Duoneb 3 Mg/0.5 Mg (3 Ml) Ud) 3 ml IH [id number] [facility] Last Admin: 10/17/16 13:01 Dose: 3 ml Artificial Tears (Artificial Tears Opht Oint) 1 gm OU Q6 TONI Last Admin: 10/17/16 17:14 Dose: 3.5 applic Folic Acid (Folic Acid) 1 mg PO DAILY [facility] Last Admin: 10/17/16 10:18 Dose: 1 mg Meropenem 500 mg/ Sodium (Chloride) 100 mls @ 100 mls/hr IVPB Q12 TONI PRN Reason: Protocol Stop: 10/21/16 07:07 Last Admin: 10/17/16 10:15 Dose: 100 mls/hr Gentamicin Sulfate 270 mg/ (Sodium Chloride) 106.75 mls @ 106.75 mls/hr IVPB ONCE TONI Last Admin: 10/17/16 11:42 Dose: 106.75 mls/hr Doxycycline Hyclate 100 mg/ (Sodium Chloride) 100 mls @ 100 mls/hr IVPB Q12 TONI PRN Reason: Protocol Stop: 10/23/16 10:01 Last Admin: 10/17/16 10:14 Dose: 100 mls/hr Dextrose (Dextrose 5% In Water 1000 Ml) 1,000 mls @ 150 mls/hr IV .Q6H40M TONI Last Admin: 10/17/16 12:29 Dose: 150 mls/hr Linezolid (Zyvox 600mg/300ml D5w) 600 mg in 300 mls @ 200 mls/hr IVPB Q12 TONI PRN Reason: Protocol Stop: 10/23/16 10:46 Last Admin: 10/17/16 10:18 Dose: 200 mls/hr Sodium Chloride (Sodium Chloride 0.9%) 1,000 mls @ 100 mls/hr IV .Q10H TONI Lactulose (Enulose) 20 gm PO TID TONI Last Admin: 10/17/16 17:13 Dose: 20 gm Lorazepam (Ativan) 2 mg IVP Q2H PRN; Protocol PRN Reason: Agitation Last Admin: 10/07/16 05:33 Dose: 2 mg Metoclopramide HCl (Reglan) 10 mg IVP Q6H PRN PRN Reason: Other Last Admin: 10/17/16 10:17 Dose: 10 mg Midodrine (Proamatine) 5 mg PO TID [facility] Last Admin: 10/17/16 17:13 Dose: 5 mg Pantoprazole Sodium (Protonix Inj) 40 mg IVP DAILY TONI Last Admin: 10/17/16 10:17 Dose: 40 mg Thiamine HCl (Vitamin B1 Tab) 100 mg PO DAILY [facility] Last Admin: 10/17/16 10:17 Dose: 100 mg Vancomycin HCl (Vancocin 25 Mg/Ml (Oral Use)) 125 mg PO Q6H TONI PRN Reason: Protocol Last Admin: 10/17/16 17:13 Dose: 125 mg Vitamin A (Vitamin A & D Oint Ud Foilpak) 1 ea TOP DAILY [facility] Last Admin: 10/17/16 10:18 Dose: 1 ea Vitamin B Complex/Vit C/Folic Acid (Nephro-Mariann) 1 tab PO 0800 [facility] Last Admin: 10/17/16 08:09 Dose: 1 tab - Labs Labs: 10/17/16 05:32 10/17/16 05:32 PT 14.5 Seconds (9.9-11.8) H 10/17/16 05:32 INR 1.34 (0.93-1.08) H 10/17/16 05:32 APTT 33.4 Seconds (23.7-30.8) H 10/17/16 05:32 - Constitutional Appears: No Acute Distress, Chronically Ill - ENT Exam ENT Exam: Mucous Membranes Moist - Respiratory Exam Respiratory Exam: Clear to Ausculation Bilateral Additional comments: tachypneic; - Cardiovascular Exam Cardiovascular Exam: +S1, +S2 - GI/Abdominal Exam GI & Abdominal Exam: Soft Additional comments: mildly distended; - Exam Additional comments: terrell in place; no scrotal edema; - Extremities Exam Extremities Exam: Normal Capillary Refill Additional comments: moderately edematous legs; - Neurological Exam Additional comments: opens eyes; minimal reponse to noxious stimuli; - Skin Skin Exam: absent: Cyanosis Assessment and Plan (1) Acute renal failure Assessment & Plan: SHAMAR likely multifactorial at this stage; highly suspected GN due to hep C; likely with some ATN component in setting of severe sepsis and now getting genta ; likely pre-renal component with excessive stool losses; non-oliguric but creat did increase mildly; -increase NS to 100 cc/hr -holding off on further pulse solumedrol (for possible GN) until consistently afebrile Status: Acute (2) Acute hypercapnic respiratory failure Assessment & Plan: Still tachypneic and over-breathing vent; will likely go for trach; will hold off on giving bicarb unless level drops further; Status: Acute (3) Hypokalemia Assessment & Plan: In setting of GI losses; replenish prn; Status: Acute (4) Hypocalcemia Status: Resolved (5) SIRS (systemic inflammatory response syndrome) Assessment & Plan: On meropenem, linezolid, doxy and gent; hold further genta doses until trough level decreases to less than 2 mcg (preferably less than 1 mcg); if creat increases further, need to dose antibiotics for CrCl < 10 ml/min; Status: Acute (6) Hypernatremia Assessment & Plan: Still close to 5L free water deficit with ongoing stool losses; mild improvement with D5W increased to 150 cc/hr, continue same; continue free water flushes via OG as tolerated (have had to cut back due to high residual tube feed finding); Status: Acute
--- NOTE | 2016-10-17 20:58 | PN ---
DATE: 10/17/2016 SUBJECTIVE: The patient is in bed, was seen this morning in the ICU 128, bed 4. The patient had no fever this morning, last fever was earlier last night. The patient remains intubated on the ventilator. PHYSICAL EXAMINATION: VITAL SIGNS: Temperature is 99, T-max is 100.2 and blood pressure is 94/50, respiratory rate on the vent, heart rate of 83. HEENT: Reveals ET tube in place. NECK: Supple. LUNGS: Decreased breath sounds. HEART: Normal S1 and S2. ABDOMEN: Soft and nontender. MICROBIOLOGY DATA: Reveals a sputum culture is gram-negative randy. Further identification and sensitivity is pending and the blood cultures are no growth. LABORATORY DATA: Reveals white count of 6.4, hemoglobin of 7.6, platelet of 74. Chemistries reveals a BUN of 103, creatinine of 3.1. Urinalysis is noted and cultures are reviewed. Chest x-ray from yesterday morning is pending. CAT scan of the head is noted. Earlier chest x-ray from yesterday is also noted. Review of orders reveals the patient to be on doxycycline and the patient was given dose of gentamicin. The patient is also on meropenem and the patient is also on micafungin. The patient also was started on Zyvox. ASSESSMENT AND PLAN: A 56-year-old male with severe sepsis ventilator dependent respiratory failure, respiratory acidosis, acute renal failure, now mellisa albicans fungemia on top of colitis and spontaneous bacterial peritonitis in a patient with liver cirrhosis most likely secondary to alcohol abuse and initially admitted with delirium tremens and now the patient has severe sepsis with right sided healthcare-associated gram-negative pneumonia and Mellisa fungemia. Today is #13 of meropenem, we will check on the identification of gram-negative randy. Zyvox was added prior to gram-negative randy identification and the patient is also on Mycamine for Mellisa fungemia. Overall prognosis is quite poor. We will check on the identification of gram-negative randy and the sputum. If all cultures remain negative, may consider discontinue Zyvox since we have a gram-negative randy and the patient does have thrombocytopenia. Nehemiah Aguilar MD [facility] # [id number]
--- NOTE | 2016-10-17 21:49 | PN ---
DATE: SUBJECTIVE: I have been asked to see this 56-year-old male with advanced cirrhosis of liver, respiratory failure, sepsis, thrombocytopenia, acute kidney failure for PICC placement. The patient is unresponsive and unable to take any oral feedings. He is currently being fed by an enteral tube. He is on the ventilator with respiratory failure. He is DNR/DNI. PHYSICAL EXAMINATION VITAL SIGNS: Reveal temperature of 99.7, heart rate of 86, blood pressure of 102/60, on Midodrine. He opens his eyes, but is nonverbal. ABDOMEN: Distended with ascites and nontender. EXTREMITIES: Show 2+ pedal edema. LABORATORY DATA Revealed hemoglobin 7.6 and platelet count of 74,000. Chemistries reveal BUN 103, creatinine 3.1, PT is 14.5, and an INR of 1.34. IMPRESSION This is a 56-year-old male with advanced cirrhosis of the liver, septic, acute renal failure, thrombocytopenia, respiratory failure. The patient is not a candidate for a PEG placement at this time, given the high risk for bleeding, given his low platelet count as well as cirrhosis with portal hypertension as well as risk for chronic drainage of ascites from the PEG site with increasing risk of infection at the PEG site. He is a DNR/DNI. The patient needs evaluation for Palliative and Supportive Care. Recommendations are continue enteral feedings through [place]. Consideration for Palliative and end of life care. Telly Pope MD
[2016-10-18] MEDS: Albuterol-Ipratrop 3 mg / 0.5 (3 ml) UD IH SCH ×4 (02:30→20:00)
[2016-10-18] MEDS: Vancomycin 25 MG/ML PO SCH ×2 (05:38→11:13)
[2016-10-18] MEDS: Sodium Chloride 0.9% 1,000 ML IV SCH (05:39)
[2016-10-18] MEDS: Mineral Oil/Petrolatum Opht Oint(3.5 gm) OU SCH ×4 (05:40→17:18)
[2016-10-18 06:57] LABS: BASO # 0.02 K/mm3 (0.0-2.0); BASO % 0.2 % (0.0-3.0); HEMATOCRIT 26.4 % (42.0-52.0); LYMPH # 1.6 (1.2-3.4); LYMPH % 20.3 % (22.0-35.0); MEAN CELL VOLUME 102.3 fl (80.0-105.0); MEAN CORPUSCULAR HEMOGLOBIN 32.2 pg (25.0-35.0); MEAN CORPUSCULAR HGB CONC 31.4 g/dl (31.0-37.0); MEAN PLATELET VOLUME 11.8 fl (7.0-11.0); MONO # 0.4 (0.1-0.6); MONO % 4.5 % (1.0-6.0); RED CELL DISTRIBUTION WIDTH 15.9 % (11.5-14.5)
[2016-10-18 07:05] LABS: ALB/GLOB RATIO 0.6 (1.1-1.8); BILIRUBIN,TOTAL 1.6 mg/dL (0.2-1.3); CALCIUM 7.2 mg/dL (8.4-10.5); POTASSIUM 3.4 mmol/L (3.6-5.0); TOTAL PROTEIN 5.2 g/dL (5.8-8.3)
[2016-10-18] MEDS ORDERED: Potassium Chloride 40 mEq/30 ml LIQ UD PO ONE (07:35)
[2016-10-18] MEDS: Multivitamin Vitamin B Complex (Nephro-Vite) Tab PO SCH (07:51)
[2016-10-18] MEDS: Vitamins A & D Oint UD Foilpak TOP SCH (09:17)
[2016-10-18] MEDS: Meropenem 500 MG in Sodium Chloride 0.9% 100 ML IVPB SCH ×2 (09:17→21:39)
[2016-10-18] MEDS: Linezolid 600 mg in D5W 300 ml 600 MG/300 ML BAG IVPB SCH (09:18)
--- NOTE | 2016-10-18 09:48 | CP.CCUPN ---
<KENDY CERNA - Last Filed: 10/18/16 11:25> CCU Subjective - Physician Review Subjective (Free Text): 10/18/16 11:25 Patient was seen and assessed at bedside. Patient intubated on PRVC mode and unsedated, however patient continues to be unresponsive to verbal, tactile and painful stimuli. Per chart review, patient was febrile overnight to 100.6 with use of cooling blankets. ROS unobtainable due to patients clinical condition but no acute events were reported overnight by nursing. CCU Objective - Vital Signs / Intake & Output Vital Signs (Last 4 hours): Vital Signs Temp Pulse Resp BP Pulse Ox 10/18/16 07:14 29 H 95 10/18/16 05:28 99.7 F H 89 112/69 81 L Intake and Output (Last 8hrs): Intake & Output 10/17/16 10/18/16 10/18/16 22:59 06:59 14:59 Intake Total 4160 Output Total 1600 1900 Balance -1600 2260 Intake: IV 3500 Right Forearm 3000 medication 500 Tube Feeding 360 Other 300 Output: Urine 600 1000 Urethral (Vyas) 600 1000 Stool 1000 900 - Physical Exam Head: Positive for: Atraumatic, Normocephalic Pupils: Positive for: PERRL, Sluggish Extroacular Muscles: Positive for: EOMI Conjunctiva: Positive for: Normal Ears: Positive for: Normal Mouth: Positive for: Moist Mucous Membranes, Other (ET and OG tube in position in oral cavity) Nose (External): Positive for: Atraumatic Neck: Positive for: Normal Range of Motion, Trachea Midline. Negative for: Lymphadenopathy Respiratory/Chest: Positive for: Clear to Auscultation, Good Air Exchange, Tachypneic, Other (Mechanical ventilation). Negative for: Respiratory Distress , Accessory Muscle Use, Wheezes, Decreased Breath Sounds, Retracting, Rhonchi Cardiovascular: Positive for: Regular Rate and Rhythm, Normal S1, S2. Negative for: Murmurs Abdomen: Positive for: Normal Bowel Sounds, Other (Paracentesis site with sutures, no signs of infection, dressing clean, dry and intact; shifting dullness). Negative for: Tenderness, Distention, Peritoneal Signs Genitourinary Male: Positive for: Testicle Swelling (Improved), Other (Vyas in place) Back: Positive for: Normal Inspection Upper Extremity: Positive for: Edema (1+ pitting edema B/L UE). Negative for: Normal Inspection (Multiple areas of ecchymoses), Cyanosis Lower Extremity: Positive for: Edema (1+ Pitting edema B/L up to thighs). Negative for: Normal Inspection Neurological: Positive for: Other (Gag and corneal reflex intact; ability to track motion with eyes intact). Negative for: GCS=15 (GCS of 3T), CN II-XII Intact, Speech Normal Skin: Positive for: Warm, Other (Area of erythema on the presacral area of the lower back measuring approximately 2-3cm with no skin ulceration; currently unstageable ). Negative for: Rashes, Normal Color (multiple ecchymoses over UE B/L) Psychiatric: Negative for: Alert (arousable to tactile stimuli), Oriented x 3, Normal Insight, Normal Concentration - Medications Active Medications: Active Medications Generic Name Dose Route Start Last Admin Trade Name Freq PRN Reason Stop Dose Admin Albuterol/Ipratropium 3 ml 10/05/16 08:00 10/18/16 07:07 Duoneb 3 Mg/0.5 Mg (3 Ml) Ud IH 3 ml [id number] TONI Administration Artificial Tears 1 gm 10/10/16 18:00 10/18/16 05:40 Artificial Tears Opht Oint OU 1 applic Q6 TONI Administration Folic Acid 1 mg 10/03/16 10:00 10/17/16 10:18 Folic Acid PO 1 mg DAILY TONI Administration Meropenem 500 mg/ Sodium 100 mls @ 100 mls/hr 10/14/16 07:06 10/17/16 22:31 Chloride IVPB 10/21/16 07:07 100 mls/hr Q12 TONI Administration Protocol Gentamicin Sulfate 270 mg/ 106.75 mls @ 106.75 mls/hr 10/15/16 10:00 11:42 Sodium Chloride IVPB 106.75 mls/hr ONCE TONI Administration Doxycycline Hyclate 100 mg/ 100 mls @ 100 mls/hr 10/16/16 10:00 10/17/16 22: 32 Sodium Chloride IVPB 10/23/16 10:01 100 mls/hr Q12 TONI Administration Protocol Dextrose 1,000 mls @ 150 mls/hr 10/16/16 09:33 10/17/16 22:35 Dextrose 5% In Water 1000 Ml IV 150 mls/hr .Q6H40M TONI Administration Linezolid 600 mg in 300 mls @ 200 mls/hr 10/16/16 10:45 10/17/16 22:33 Zyvox 600mg/300ml D5w IVPB 10/23/16 10:46 200 mls/hr Q12 TONI Administration Protocol Sodium Chloride 1,000 mls @ 100 mls/hr 10/17/16 18:43 10/18/16 05:39 Sodium Chloride 0.9% IV 100 mls/hr .Q10H TONI Administration Lactulose 20 gm 10/11/16 10:00 10/17/16 17:13 Enulose PO 20 gm TID TONI Administration Lorazepam 2 mg 10/02/16 21:28 10/07/16 05:33 Ativan IVP 2 mg Q2H PRN Administration Agitation Protocol Metoclopramide HCl 10 mg 10/09/16 16:56 10/17/16 10:17 Reglan IVP 10 mg Q6H PRN Administration Other Midodrine 5 mg 10/09/16 10:00 10/17/16 17:13 Proamatine PO 5 mg TID TONI Administration Pantoprazole Sodium 40 mg 10/03/16 10:00 10/17/16 10:17 Protonix Inj IVP 40 mg DAILY TONI Administration Thiamine HCl 100 mg 10/03/16 10:00 10/17/16 10:17 Vitamin B1 Tab PO 100 mg DAILY TONI Administration Vancomycin HCl 125 mg 10/03/16 11:00 10/18/16 05:38 Vancocin 25 Mg/Ml (Oral Use) PO 125 mg Q6H TONI Administration Protocol Vitamin A 1 ea 10/03/16 10:00 10/17/16 10:18 Vitamin A & D Oint Ud Foilpak TOP 1 ea DAILY TONI Administration Vitamin B Complex/Vit C/Folic Acid 1 tab 10/03/16 08:00 10/18/16 07:51 Nephro-Mariann PO 1 tab 0800 TONI Administration - Patient Studies Lab Studies: Microbiology Studies 10/14/16 08:00 Blood Culture - Preliminary Blood NO GROWTH AFTER 4 DAYS 10/16/16 11:25 Blood Culture - Preliminary Blood-Venous NO GROWTH AFTER 24 HOURS 10/16/16 11:00 Blood Culture - Preliminary Blood-Venous NO GROWTH AFTER 24 HOURS 10/14/16 14:10 Gram Stain - Final Sputum Sputum Culture - Final Pseudomonas Aeruginosa Lab Studies 10/18/16 10/18/16 10/17/16 Range/Units 05:10 05:10 22:04 WBC 8.0 D (4.5-11.0) 10^3/ul RBC 2.58 L (3.5-6.1) 10^6/uL Hgb 8.3 L (14.0-18.0) g/dL Hct 26.4 L (42.0-52.0) % MCV 102.3 (80.0-105.0) fl MCH 32.2 (25.0-35.0) pg MCHC 31.4 (31.0-37.0) g/dl RDW 15.9 H (11.5-14.5) % Plt Count 97 L (120.0-450.0) 10^3/uL MPV 11.8 H (7.0-11.0) fl Gran % 75.0 H (50.0-68.0) % Lymph % (Auto) 20.3 L (22.0-35.0) % Lee % (Auto) 4.5 (1.0-6.0) % Eos % (Auto) 0.0 L (1.5-5.0) % Baso % (Auto) 0.2 (0.0-3.0) % Gran # 6.00 (1.4-6.5) Lymph # 1.6 (1.2-3.4) Lee # 0.4 (0.1-0.6) Eos # 0.0 (0.0-0.7) Baso # 0.02 (0.0-2.0) K/mm3 Sodium 148 (132-148) mmol/L Potassium 3.4 L (3.6-5.0) mmol/L Chloride 116 H (98-107) mmol/L Carbon Dioxide 21 (21-33) mmol/L Anion Gap 14 (10-20) BUN 97 H (7-21) mg/dL Creatinine 2.5 H (0.5-1.4) mg/dL Est GFR ( Amer) 32 Est GFR (Non-Af Amer) 27 POC Glucose (mg/dL) 133 H (65-110) mg/dL Random Glucose 99 (70-110) mg/dL Calcium 7.2 L (8.4-10.5) mg/dL Total Bilirubin 1.6 H (0.2-1.3) mg/dL AST 85 H D (17-59) U/L ALT 62 H (7-56) U/L Alkaline Phosphatase 93 (38-126) U/L Total Protein 5.2 L (5.8-8.3) g/dL Albumin 2.0 L (3.0-4.8) g/dL Globulin 3.2 gm/dL Albumin/Globulin Ratio 0.6 L (1.1-1.8) Gentamicin Trough (0.0-0.9) ug/mL 10/17/16 10/17/16 Range/Units 11:33 05:32 WBC (4.5-11.0) 10^3/ul RBC (3.5-6.1) 10^6/uL Hgb (14.0-18.0) g/dL Hct (42.0-52.0) % MCV (80.0-105.0) fl MCH (25.0-35.0) pg MCHC (31.0-37.0) g/dl RDW (11.5-14.5) % Plt Count (120.0-450.0) 10^3/uL MPV (7.0-11.0) fl Gran % (50.0-68.0) % Lymph % (Auto) (22.0-35.0) % Lee % (Auto) (1.0-6.0) % Eos % (Auto) (1.5-5.0) % Baso % (Auto) (0.0-3.0) % Gran # (1.4-6.5) Lymph # (1.2-3.4) Lee # (0.1-0.6) Eos # (0.0-0.7) Baso # (0.0-2.0) K/mm3 Sodium (132-148) mmol/L Potassium (3.6-5.0) mmol/L Chloride (98-107) mmol/L Carbon Dioxide (21-33) mmol/L Anion Gap (10-20) BUN (7-21) mg/dL Creatinine (0.5-1.4) mg/dL Est GFR ( Amer) Est GFR (Non-Af Amer) POC Glucose (mg/dL) 123 H (65-110) mg/dL Random Glucose (70-110) mg/dL Calcium (8.4-10.5) mg/dL Total Bilirubin (0.2-1.3) mg/dL AST (17-59) U/L ALT (7-56) U/L Alkaline Phosphatase (38-126) U/L Total Protein (5.8-8.3) g/dL Albumin (3.0-4.8) g/dL Globulin gm/dL Albumin/Globulin Ratio (1.1-1.8) Gentamicin Trough 7.5 H* (0.0-0.9) ug/mL Laboratory Results - last 24 hr 10/17/16 10/17/16 10/17/16 05:32 11:33 22:04 WBC RBC Hgb Hct MCV MCH MCHC RDW Plt Count MPV Gran % Lymph % (Auto) Lee % (Auto) Eos % (Auto) Baso % (Auto) Gran # Lymph # Lee # Eos # Baso # Sodium Potassium Chloride Carbon Dioxide Anion Gap BUN Creatinine Est GFR ( Amer) Est GFR (Non-Af Amer) POC Glucose (mg/dL) 123 H 133 H Random Glucose Calcium Total Bilirubin AST ALT Alkaline Phosphatase Total Protein Albumin Globulin Albumin/Globulin Ratio Gentamicin Trough 7.5 H* 10/18/16 10/18/16 05:10 05:10 WBC 8.0 D RBC 2.58 L Hgb 8.3 L Hct 26.4 L MCV 102.3 MCH 32.2 MCHC 31.4 RDW 15.9 H Plt Count 97 L MPV 11.8 H Gran % 75.0 H Lymph % (Auto) 20.3 L Lee % (Auto) 4.5 Eos % (Auto) 0.0 L Baso % (Auto) 0.2 Gran # 6.00 Lymph # 1.6 Lee # 0.4 Eos # 0.0 Baso # 0.02 Sodium 148 Potassium 3.4 L Chloride 116 H Carbon Dioxide 21 Anion Gap 14 BUN 97 H Creatinine 2.5 H Est GFR ( Amer) 32 Est GFR (Non-Af Amer) 27 POC Glucose (mg/dL) Random Glucose 99 Calcium 7.2 L Total Bilirubin 1.6 H AST 85 H D ALT 62 H Alkaline Phosphatase 93 Total Protein 5.2 L Albumin 2.0 L Globulin 3.2 Albumin/Globulin Ratio 0.6 L Gentamicin Trough Fingerstick Blood Sugar Results: 105 Review of Systems - Review of Systems Review of Systems: Please refer to [facility] Critical Care Progress Note - Ventilator Checklist PUD Prophalyxis: Yes DVT Prophylaxis: Yes Assessment/Plan - Assessment and Plan (Free Text) Assessment: 56 year old male with an initial presentation of AMS in the setting of persistent hypokalemia and alcohol withdrawal, which resolved. Patient was then intubated after he was found to be in hypercapnic respiratory failure and subsequently became hemodynamically unstable requiring dual vasopressor support. His presentation is consistent with distributive shock likely from either acute decompensated chronic liver failure or sepsis from C. Diff colitis , with multiorgan dysfunction syndrome including renal failure, encephalopathy and respiratory failure. Patient is no longer requiring vasopressin or levophed for hemodynamic support but is on midodrine. Patient is currently unresponsive to verbal or tactile stimuli off of sedation. Patient has been tolerating daily weaning trials of PS/CPAP from [facility] and family has signed consent form for tracheostomy should it be indicated. Patient has continued to be febrile on antibiotic therapy and is requiring additional broader spectrum antibiotic coverage at this time. Plan: Neuro: -CT head showed on 10/02 no acute findings in the brain and no acute hemorrhages or infarcts, age related cortical atrophy and ventriculomegaly -Repeat CT head done on 10/11 and 10/16 showed no acute intracranial pathology with no interval changes. -EEG done on 10/14 showed severe bihemispheric cerebral dysfunction with no epileptiform activity -Repeat CT head and ammonia level pending -Currently intubated with no sedation -Continue Lactulose 20mg TID -Continue Ativan 2mg IVP Q2H PRN for symptoms of alcohol withdrawal -Continue Thiamine, Folic Acid and MV supplementation Pulm: Mechanical ventilation settings on [facility] currently at: FiO2-40 PEEP-5 RR-26 TV-400 -Chest X-Ray on 10/16 showed no active disease with resolution of previously seen opacity in LLL and ET/OG tube unchanged grossly -Consent signed for tracheostomy placement on 10/15 with plans for the procedure to be done 10/19 with one unit of platelets prior -Continue daily PS/CPAP weaning trials as tolerated -Continue Duonebs 3ml IH [id number] for wheezing -ENT consulted, all recommendations appreciated Cardio: -EKG done on 10/05 shows sinus tachycardia at a rate of 106 and low voltage QRS with a non-specific t-wave abnormality -ECHO done on 10/10 showed LVEF of 55% with poor visualization of the valvular structures due to poor ECHO window and to consider MARILUZ if clinically indicated -Continue midodrine 5mg PO TID -Cardiology consulted, appreciate all recommendations GI: -CT abdomen/pelvis done on 10/04 showed possible sigmoid colitis, mild-to- moderate abdominal and pelvic ascites, free intrarenal gas or definite bowel obstruction, and hepatosplenomegaly again identified as well as diffuse fatty infiltration of liver -Approximately 2.5L of fluid removed via paracentesis on 10/05 with appropriate albumin resuscitation provided -Ascites predominantly lymphocytic and cytology showing no malignancy -Per GI, patient currently not a candidate for PEG tube placement -AST/ALT at 85/62 with T. Bili at 1.6, currently stable -Continue Lactulose 20mg TID -Vital AF tube feedings at 30ml/hr, increase by 5ml/hr as tolerated -Continue Reglan 10mg IVP Q6H PRN -Rectal tube in place and currently draining 1900cc over the past 24 hours -GI consulted, all recommendations appreciated Renal: -BUN/Creatinine at 97/2.5, representing improvement of acute kidney injury -Free water deficit calculated to be approximately 5L -Continue free water flushes 200ml q4 as tolerated, D5W at 150ml/hr and normal saline at 100ml/hr -Vyas catheter in place and draining 1600cc over the past 24 hours -Will continue to replete calcium, magnesium, phosphorus and potassium as needed -Will continue to monitor with serial CMP's -Nephrology consulted, all recommendations appreciated Heme/Onc: -H/H stable at 8.3/26.4 -Thrombocytopenia improved to 97 from -Will continue to monitor with serial CBC's MSK: -Area of erythema on presacral area measuring approximately 2cm with no skin breakage -Continue to turn patient Q2H to prevent ulceration -PT/OT evaluation and treatment ordered, stated that they will see patient when he is more clinically appropriate for therapy ID: -Currently on Micafungin 100mg IV daily (day 11), Merrem 250mg IVPB Q12 (day 14) , Zyvox 600mg IVPB Q12 (Day 3), and Doxycycline 100mg IVPB Q12 (Day 1); Gentamycin at 106.75mls/hr IVPB (Day 4) (currently held as trough was elevated to 7.5) -Most recent blood and urine cultures negative for growth for 24 hours -UA and Chest X-Ray on 10/16 negative for acute signs of infection -Sputum culture drawn on 10/14 grew Pseudomonas Aeruginosa, susceptible to Merrem and Gentamycin -Previous blood, sputum and urine cultures drawn on 10/05 grew Mellisa Albicans -C. Diff antigen positive and toxin negative on 10/04 -MRSA screen negative on admission -Continue active patient cooling with cooling blankets for temperatures over 100.4 -ID consulted, all recommendations appreciated Endocrine: -Will maintain euglycemia with blood glucose between 140 and 180 Lines: -Continue all peripheral lines GI Prophylaxis: Protonix DVT Prophylaxis: SCD's Disposition: Patient to have tracheostomy placed on 10/19 with plans for watermelon inspector ventilation and possible placement in a jail care facility. Discussion with patients family, case management, social workers, and medical team tentatively planned for 10/18. Patient with poor prognosis overall. Patient seen and case discussed in detail with attending, Dr. Hinojosa. - Date & Time Date: 10/18/16 Time: 09:21 <Otto Hinojosa - Last Filed: 10/18/16 15:33> CCU Objective - Vital Signs / Intake & Output Vital Signs (Last 4 hours): Vital Signs Temp Pulse BP Pulse Ox 10/18/16 14:00 99.7 F H 90 111/71 96 10/18/16 13:00 99.9 F H 95 H 110/71 94 L 10/18/16 12:00 99.9 F H 88 108/69 96 Intake and Output (Last 8hrs): Intake & Output 10/18/16 10/18/16 10/18/16 06:59 14:59 22:59 Intake Total 4160 Output Total 1900 Balance 2260 Weight 206 lb Intake: IV 3500 Right Forearm 3000 medication 500 Tube Feeding 360 Other 300 Output: Urine 1000 Urethral (Vyas) 1000 Stool 900 - Medications Active Medications: Active Medications Generic Name Dose Route Start Last Admin Trade Name Freq PRN Reason Stop Dose Admin Albuterol/Ipratropium 3 ml 10/05/16 08:00 10/18/16 13:18 Duoneb 3 Mg/0.5 Mg (3 Ml) Ud IH 3 ml [id number] TONI Administration Artificial Tears 1 gm 10/10/16 18:00 10/18/16 11:08 Artificial Tears Opht Oint OU 3.5 applic Q6 TONI Administration Folic Acid 1 mg 10/03/16 10:00 10/18/16 09:12 Folic Acid PO 1 mg DAILY TONI Administration Meropenem 500 mg/ Sodium 100 mls @ 100 mls/hr 10/14/16 07:06 10/18/16 09:17 Chloride IVPB 10/21/16 07:07 100 mls/hr Q12 TONI Administration Protocol Gentamicin Sulfate 270 mg/ 106.75 mls @ 106.75 mls/hr 10/15/16 10:00 11:42 Sodium Chloride IVPB 106.75 mls/hr ONCE TONI Administration Doxycycline Hyclate 100 mg/ 100 mls @ 100 mls/hr 10/16/16 10:00 10/18/16 10: 03 Sodium Chloride IVPB 10/23/16 10:01 100 mls/hr Q12 TONI Administration Protocol Dextrose 1,000 mls @ 150 mls/hr 10/16/16 09:33 10/17/16 22:35 Dextrose 5% In Water 1000 Ml IV 150 mls/hr .Q6H40M TONI Administration Sodium Chloride 1,000 mls @ 100 mls/hr 10/17/16 18:43 10/18/16 05:39 Sodium Chloride 0.9% IV 100 mls/hr .Q10H TONI Administration Micafungin Sodium 100 mg/ 100 mls @ 100 mls/hr 10/18/16 10:00 10/18/16 11:07 Sodium Chloride IV 10/25/16 10:01 100 mls/hr DAILY TONI Administration Protocol Lactulose 20 gm 10/11/16 10:00 10/18/16 14:08 Enulose PO 20 gm TID TONI Administration Lorazepam 2 mg 10/02/16 21:28 10/07/16 05:33 Ativan IVP 2 mg Q2H PRN Administration Agitation Protocol Metoclopramide HCl 10 mg 10/09/16 16:56 10/18/16 09:19 Reglan IVP 10 mg Q6H PRN Administration Other Midodrine 5 mg 10/09/16 10:00 10/18/16 14:08 Proamatine PO 5 mg TID TONI Administration Pantoprazole Sodium 40 mg 10/03/16 10:00 10/18/16 09:19 Protonix Inj IVP 40 mg DAILY TONI Administration Thiamine HCl 100 mg 10/03/16 10:00 10/18/16 09:12 Vitamin B1 Tab PO 100 mg DAILY TONI Administration Vancomycin HCl 125 mg 10/03/16 11:00 10/18/16 11:13 Vancocin 25 Mg/Ml (Oral Use) PO 125 mg Q6H TONI Administration Protocol Vitamin A 1 ea 10/03/16 10:00 10/18/16 09:17 Vitamin A & D Oint Ud Foilpak TOP 1 ea DAILY TONI Administration Vitamin B Complex/Vit C/Folic Acid 1 tab 10/03/16 08:00 10/18/16 07:51 Nephro-Mariann PO 1 tab 0800 TONI Administration - Patient Studies Lab Studies: Microbiology Studies 10/16/16 11:25 Blood Culture - Preliminary Blood-Venous NO GROWTH AFTER 48 HOURS 10/16/16 11:00 Blood Culture - Preliminary Blood-Venous NO GROWTH AFTER 48 HOURS 10/14/16 08:00 Blood Culture - Preliminary Blood NO GROWTH AFTER 4 DAYS Lab Studies 10/18/16 10/18/16 10/18/16 Range/Units 11:10 05:10 05:10 WBC (4.5-11.0) 10^3/ul RBC (3.5-6.1) 10^6/uL Hgb (14.0-18.0) g/dL Hct (42.0-52.0) % MCV (80.0-105.0) fl MCH (25.0-35.0) pg MCHC (31.0-37.0) g/dl RDW (11.5-14.5) % Plt Count (120.0-450.0) 10^3/uL MPV (7.0-11.0) fl Gran % (50.0-68.0) % Lymph % (Auto) (22.0-35.0) % Lee % (Auto) (1.0-6.0) % Eos % (Auto) (1.5-5.0) % Baso % (Auto) (0.0-3.0) % Gran # (1.4-6.5) Lymph # (1.2-3.4) Lee # (0.1-0.6) Eos # (0.0-0.7) Baso # (0.0-2.0) K/mm3 Sodium 148 (132-148) mmol/L Potassium 3.4 L (3.6-5.0) mmol/L Chloride 116 H (98-107) mmol/L Carbon Dioxide 21 (21-33) mmol/L Anion Gap 14 (10-20) BUN 97 H (7-21) mg/dL Creatinine 2.5 H (0.5-1.4) mg/dL Est GFR ( Amer) 32 Est GFR (Non-Af Amer) 27 POC Glucose (mg/dL) (65-110) mg/dL Random Glucose 99 (70-110) mg/dL Calcium 7.2 L (8.4-10.5) mg/dL Total Bilirubin 1.6 H (0.2-1.3) mg/dL AST 85 H D (17-59) U/L ALT 62 H (7-56) U/L Alkaline Phosphatase 93 (38-126) U/L Total Protein 5.2 L (5.8-8.3) g/dL Albumin 2.0 L (3.0-4.8) g/dL Globulin 3.2 gm/dL Albumin/Globulin Ratio 0.6 L (1.1-1.8) Gentamicin Trough 8.0 H* (0.0-0.9) ug/mL Blood Type O POSITIVE Antibody Screen Negative BBK History Checked Patient has bt 10/18/16 10/17/16 Range/Units 05:10 22:04 WBC 8.0 D (4.5-11.0) 10^3/ul RBC 2.58 L (3.5-6.1) 10^6/uL Hgb 8.3 L (14.0-18.0) g/dL Hct 26.4 L (42.0-52.0) % MCV 102.3 (80.0-105.0) fl MCH 32.2 (25.0-35.0) pg MCHC 31.4 (31.0-37.0) g/dl RDW 15.9 H (11.5-14.5) % Plt Count 97 L (120.0-450.0) 10^3/uL MPV 11.8 H (7.0-11.0) fl Gran % 75.0 H (50.0-68.0) % Lymph % (Auto) 20.3 L (22.0-35.0) % Lee % (Auto) 4.5 (1.0-6.0) % Eos % (Auto) 0.0 L (1.5-5.0) % Baso % (Auto) 0.2 (0.0-3.0) % Gran # 6.00 (1.4-6.5) Lymph # 1.6 (1.2-3.4) Lee # 0.4 (0.1-0.6) Eos # 0.0 (0.0-0.7) Baso # 0.02 (0.0-2.0) K/mm3 Sodium (132-148) mmol/L Potassium (3.6-5.0) mmol/L Chloride (98-107) mmol/L Carbon Dioxide (21-33) mmol/L Anion Gap (10-20) BUN (7-21) mg/dL Creatinine (0.5-1.4) mg/dL Est GFR ( Amer) Est GFR (Non-Af Amer) POC Glucose (mg/dL) 133 H (65-110) mg/dL Random Glucose (70-110) mg/dL Calcium (8.4-10.5) mg/dL Total Bilirubin (0.2-1.3) mg/dL AST (17-59) U/L ALT (7-56) U/L Alkaline Phosphatase (38-126) U/L Total Protein (5.8-8.3) g/dL Albumin (3.0-4.8) g/dL Globulin gm/dL Albumin/Globulin Ratio (1.1-1.8) Gentamicin Trough (0.0-0.9) ug/mL Blood Type Antibody Screen BBK History Checked Laboratory Results - last 24 hr 10/17/16 10/18/16 10/18/16 22:04 05:10 05:10 WBC 8.0 D RBC 2.58 L Hgb 8.3 L Hct 26.4 L MCV 102.3 MCH 32.2 MCHC 31.4 RDW 15.9 H Plt Count 97 L MPV 11.8 H Gran % 75.0 H Lymph % (Auto) 20.3 L Lee % (Auto) 4.5 Eos % (Auto) 0.0 L Baso % (Auto) 0.2 Gran # 6.00 Lymph # 1.6 Lee # 0.4 Eos # 0.0 Baso # 0.02 Sodium 148 Potassium 3.4 L Chloride 116 H Carbon Dioxide 21 Anion Gap 14 BUN 97 H Creatinine 2.5 H Est GFR ( Amer) 32 Est GFR (Non-Af Amer) 27 POC Glucose (mg/dL) 133 H Random Glucose 99 Calcium 7.2 L Total Bilirubin 1.6 H AST 85 H D ALT 62 H Alkaline Phosphatase 93 Total Protein 5.2 L Albumin 2.0 L Globulin 3.2 Albumin/Globulin Ratio 0.6 L Gentamicin Trough Blood Type Antibody Screen BBK History Checked 10/18/16 10/18/16 05:10 11:10 WBC RBC Hgb Hct MCV MCH MCHC RDW Plt Count MPV Gran % Lymph % (Auto) Lee % (Auto) Eos % (Auto) Baso % (Auto) Gran # Lymph # Lee # Eos # Baso # Sodium Potassium Chloride Carbon Dioxide Anion Gap BUN Creatinine Est GFR ( Amer) Est GFR (Non-Af Amer) POC Glucose (mg/dL) Random Glucose Calcium Total Bilirubin AST ALT Alkaline Phosphatase Total Protein Albumin Globulin Albumin/Globulin Ratio Gentamicin Trough 8.0 H* Blood Type O POSITIVE Antibody Screen Negative BBK History Checked Patient has bt Attending/Attestation - Attestation I have personally seen and examined this patient.: Yes I have fully participated in the care of the patient.: Yes I have reviewed all pertinent clinical information: Yes Notes (Text): 10/18/16 15:30 56 yo male with VDRF, recovering from fungemia, Ps tracheobronchitis, on meropenem, micafungin. For the trach in am. Surg consult for the PEG. NPO after mifnight. Rehydration with PO and IV fluids. contimnue weaning MV, off sedation , daily weaning trials. DVT/GI prophylaxis ccm time 40 min
[2016-10-18] MEDS: Micafungin 100 MG in Sodium Chloride 0.9% 100 ML IV SCH (11:07)
--- NOTE | 2016-10-18 15:14 | CP.PCM.PN ---
<Justo Torres - Last Filed: 10/18/16 16:27> Subjective - Date & Time of Evaluation Date of Evaluation: 10/18/16 Time of Evaluation: 06:14 - Subjective Subjective: Patient was seen and examined at bedside. The patient is currently sedated. The patient continues to be unresponsive to verbal or tactile stimuli. The ROS was unable to obtain due to the patients current clinical condition. Objective - Vital Signs/Intake and Output Vital Signs (last 24 hours): Temp Pulse Resp BP Pulse Ox 99.7 F H 90 29 H 111/71 96 10/18/16 14:00 10/18/16 14:00 10/18/16 07:14 10/18/16 14:00 10/18/16 14:00 Intake and Output: 10/18/16 10/18/16 06:59 18:59 Intake Total 4160 Output Total 1900 Balance 2260 - Medications Medications: Current Medications Albuterol/Ipratropium (Duoneb 3 Mg/0.5 Mg (3 Ml) Ud) 3 ml IH Q1GALKS [facility] Last Admin: 10/18/16 13:18 Dose: 3 ml Artificial Tears (Artificial Tears Opht Oint) 1 gm OU Q6 [facility] Last Admin: 10/18/16 11:08 Dose: 3.5 applic Folic Acid (Folic Acid) 1 mg PO DAILY [facility] Last Admin: 10/18/16 09:12 Dose: 1 mg Meropenem 500 mg/ Sodium (Chloride) 100 mls @ 100 mls/hr IVPB Q12 TONI PRN Reason: Protocol Stop: 10/21/16 07:07 Last Admin: 10/18/16 09:17 Dose: 100 mls/hr Gentamicin Sulfate 270 mg/ (Sodium Chloride) 106.75 mls @ 106.75 mls/hr IVPB ONCE [facility] Last Admin: 10/17/16 11:42 Dose: 106.75 mls/hr Doxycycline Hyclate 100 mg/ (Sodium Chloride) 100 mls @ 100 mls/hr IVPB Q12 TONI PRN Reason: Protocol Stop: 10/23/16 10:01 Last Admin: 10/18/16 10:03 Dose: 100 mls/hr Dextrose (Dextrose 5% In Water 1000 Ml) 1,000 mls @ 150 mls/hr IV .Q6H40M [facility] Last Admin: 10/17/16 22:35 Dose: 150 mls/hr Sodium Chloride (Sodium Chloride 0.9%) 1,000 mls @ 100 mls/hr IV .Q10H TONI Last Admin: 10/18/16 05:39 Dose: 100 mls/hr Micafungin Sodium 100 mg/ (Sodium Chloride) 100 mls @ 100 mls/hr IV DAILY TONI PRN Reason: Protocol Stop: 10/25/16 10:01 Last Admin: 10/18/16 11:07 Dose: 100 mls/hr Lactulose (Enulose) 20 gm PO TID TONI Last Admin: 10/18/16 14:08 Dose: 20 gm Lorazepam (Ativan) 2 mg IVP Q2H PRN; Protocol PRN Reason: Agitation Last Admin: 10/07/16 05:33 Dose: 2 mg Metoclopramide HCl (Reglan) 10 mg IVP Q6H PRN PRN Reason: Other Last Admin: 10/18/16 09:19 Dose: 10 mg Midodrine (Proamatine) 5 mg PO TID TONI Last Admin: 10/18/16 14:08 Dose: 5 mg Pantoprazole Sodium (Protonix Inj) 40 mg IVP DAILY TONI Last Admin: 10/18/16 09:19 Dose: 40 mg Thiamine HCl (Vitamin B1 Tab) 100 mg PO DAILY TONI Last Admin: 10/18/16 09:12 Dose: 100 mg Vancomycin HCl (Vancocin 25 Mg/Ml (Oral Use)) 125 mg PO Q6H TONI PRN Reason: Protocol Last Admin: 10/18/16 11:13 Dose: 125 mg Vitamin A (Vitamin A & D Oint Ud Foilpak) 1 ea TOP DAILY TONI Last Admin: 10/18/16 09:17 Dose: 1 ea Vitamin B Complex/Vit C/Folic Acid (Nephro-Mariann) 1 tab PO 0800 TONI Last Admin: 10/18/16 07:51 Dose: 1 tab - Labs Labs: 10/18/16 05:10 10/18/16 05:10 PT 14.5 Seconds (9.9-11.8) H 10/17/16 05:32 INR 1.34 (0.93-1.08) H 10/17/16 05:32 APTT 33.4 Seconds (23.7-30.8) H 10/17/16 05:32 - Head Exam Head Exam: ATRAUMATIC, NORMAL INSPECTION, NORMOCEPHALIC - Eye Exam Eye Exam: EOMI, Normal appearance, PERRL Pupil Exam: NORMAL ACCOMODATION, PERRL. absent: Irregular - ENT Exam ENT Exam: Mucous Membranes Moist - Neck Exam Neck Exam: Normal Inspection. absent: Thyromegaly - Respiratory Exam Respiratory Exam: Clear to Ausculation Bilateral, NORMAL BREATHING PATTERN. absent: Accessory Muscle Use, Chest Wall Tenderness, Respiratory Distress - Cardiovascular Exam Cardiovascular Exam: REGULAR RHYTHM, +S1, +S2. absent: RRR - GI/Abdominal Exam GI & Abdominal Exam: Soft, Normal Bowel Sounds. absent: Tenderness - Extremities Exam Extremities Exam: Full ROM - Back Exam Additional comments: bed ulcers noted per nursing staff - Psychiatric Exam Psychiatric exam: Normal Affect, Normal Mood - Skin Skin Exam: Dry, Intact Assessment and Plan - Assessment and Plan (Free Text) Assessment: 56 year old male with an initial presentation of AMS in the setting of persistent hypokalemia and alcohol withdrawal, which resolved. Patient was then intubated after he was found to be in hypercapnic respiratory failure and subsequently became hemodynamically unstable requiring dual vasopressor support. His presentation is consistent with distributive shock likely from either acute decompensated chronic liver failure or sepsis from C. Diff colitis , with multiorgan dysfunction syndrome including renal failure, encephalopathy and respiratory failure. Patient is no longer requiring vasopressin or levophed for hemodynamic support but is on midodrine. Patient is currently unresponsive to verbal or tactile stimuli off of sedation. Patient is has been transitioned from PRVC to PS/CPAP Plan: Pulmonary: Hypercapnic Respiratory Failure -Patient intubated on 10/05. Today: FiO2= 40%, RR=26, PEEP+5, and Tidal Volume + 400 ml, O2 saturation+97% -ABG: pCO2+43, pO2+97, pH+7.27 -Patient hypotension slightly (111/71) and remains off pressors. -Cardio following -CXR shows no active pulmonary disease. -Continue to monitor vital signs. -Continue Duonebs 3ml IHQ6 HRESP for wheezing symptoms. 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 Patient is expected to go to a snf care facility. Family meeting is expected to take place on 10/18. Renal: Acute renal failure most likely secondary to glomerulonephritis -BUN 97(down from 103) and Creatinine is 2.5(down from 3.1). -Urine total protein-897 and Urine Microalbumin >950. -Nephrology consult note appreciated. -No acute indications for HD at this time. Urine output remains steady. -Nephrology consult note appreciate- Hematology: Thrombocytopenia -Plt count now 97(up from 74) s/p 4 units of Platelets transfused. Continue to monitor plt count and consider another transfusion if patient drops below 20. -Patient currently has no active bleeds. Monitor for bleeding. EtOh Withdrawal -Continue Ativan 2mg IVP Q2H PRN for alcohol withdrawal symptoms. -Continue Thiamine, Folic acid and MV supplementation Ascites -s/p ascitic fluid removed on 10/05. -culture growth negative after 6 days. -MELDS score of 20: 19.3% Mortality risk in 3 month time period. GI: Hepatic encephalopathy -Continue Rifaxamin, Lactulose -Rectal tube in place and currently draining 800-900 cc per shift per nursing staff. -Continue with Vital AF tube feedings as 30ml/hr. Anemia -Stool occult blood positive on 10/05. -Hgb is 8.3(up from 7.6) and Hct is 26.4(up from 24.5) Patient is s/p 3 units leukocyte reduced PRBC's. Continue to monitor H/H levels with serial CBC's. Consider Transfusion if Hgb falls below 7. Sepsis/Fungemia -Grew Kamille Albicans -Sputum culture grew Pseudomonas Aeurginosa. -Continue Micafungin (renal dosing) -Patient continues to spike fevers. Started Zyvox and Doxycycline. Will continue to monitor closely. -Continue Merrem, Vancomycin C Diff infection. -Continue Vancomycin -Repeat stool sample. Hypokalemia -Potassium today 3.4. Will continue to replete as needed. Will continue to monitor electrolyte levels with serial cmp's. GI ppx -Continue Protonix DVT ppx. <Mell Gauthier - Last Filed: 10/18/16 18:16> Objective - Vital Signs/Intake and Output Vital Signs (last 24 hours): Temp Pulse Resp BP Pulse Ox 99.0 F 89 29 H 118/72 96 10/18/16 17:00 10/18/16 17:00 10/18/16 07:14 10/18/16 17:00 10/18/16 17:00 Intake and Output: 10/18/16 10/18/16 06:59 18:59 Intake Total 4160 Output Total 1900 1750 Balance 2260 -1750 - Medications Medications: Current Medications Albuterol/Ipratropium (Duoneb 3 Mg/0.5 Mg (3 Ml) Ud) 3 ml IH [id number] [facility] Last Admin: 10/18/16 13:18 Dose: 3 ml Artificial Tears (Artificial Tears Opht Oint) 1 gm OU Q6 [facility] Last Admin: 10/18/16 17:18 Dose: 3.5 applic Folic Acid (Folic Acid) 1 mg PO DAILY [facility] Last Admin: 10/18/16 09:12 Dose: 1 mg Meropenem 500 mg/ Sodium (Chloride) 100 mls @ 100 mls/hr IVPB Q12 TONI PRN Reason: Protocol Stop: 10/21/16 07:07 Last Admin: 10/18/16 09:17 Dose: 100 mls/hr Gentamicin Sulfate 270 mg/ (Sodium Chloride) 106.75 mls @ 106.75 mls/hr IVPB ONCE [facility] Last Admin: 10/17/16 11:42 Dose: 106.75 mls/hr Doxycycline Hyclate 100 mg/ (Sodium Chloride) 100 mls @ 100 mls/hr IVPB Q12 TONI PRN Reason: Protocol Stop: 10/23/16 10:01 Last Admin: 10/18/16 10:03 Dose: 100 mls/hr Dextrose (Dextrose 5% In Water 1000 Ml) 1,000 mls @ 150 mls/hr IV .Q6H40M [facility] Last Admin: 10/17/16 22:35 Dose: 150 mls/hr Sodium Chloride (Sodium Chloride 0.9%) 1,000 mls @ 100 mls/hr IV .Q10H [facility] Last Admin: 10/18/16 05:39 Dose: 100 mls/hr Micafungin Sodium 100 mg/ (Sodium Chloride) 100 mls @ 100 mls/hr IV DAILY TONI PRN Reason: Protocol Stop: 10/25/16 10:01 Last Admin: 10/18/16 11:07 Dose: 100 mls/hr Lactulose (Enulose) 20 gm PO TID [facility] Last Admin: 10/18/16 17:17 Dose: 20 gm Lorazepam (Ativan) 2 mg IVP Q2H PRN; Protocol PRN Reason: Agitation Last Admin: 10/07/16 05:33 Dose: 2 mg Metoclopramide HCl (Reglan) 10 mg IVP Q6H PRN PRN Reason: Other Last Admin: 10/18/16 09:19 Dose: 10 mg Midodrine (Proamatine) 5 mg PO TID [facility] Last Admin: 10/18/16 17:17 Dose: 5 mg Pantoprazole Sodium (Protonix Inj) 40 mg IVP DAILY TONI Last Admin: 10/18/16 09:19 Dose: 40 mg Thiamine HCl (Vitamin B1 Tab) 100 mg PO DAILY [facility] Last Admin: 10/18/16 09:12 Dose: 100 mg Vitamin A (Vitamin A & D Oint Ud Foilpak) 1 ea TOP DAILY [facility] Last Admin: 10/18/16 09:17 Dose: 1 ea Vitamin B Complex/Vit C/Folic Acid (Nephro-Mariann) 1 tab PO 0800 [facility] Last Admin: 10/18/16 07:51 Dose: 1 tab - Labs Labs: 10/18/16 05:10 10/18/16 05:10 PT 14.5 Seconds (9.9-11.8) H 10/17/16 05:32 INR 1.34 (0.93-1.08) H 10/17/16 05:32 APTT 33.4 Seconds (23.7-30.8) H 10/17/16 05:32 Attending/Attestation - Attestation I have personally seen and examined this patient.: Yes I have fully participated in the care of the patient.: Yes I have reviewed all pertinent clinical information, including history, physical exam and plan: Yes Notes (Text): Attending note; Patient is a 56 year old male with an initial presentation of AMS in the setting of persistent hypokalemia and alcohol withdrawal now intubated 1.Respiratory Failure; on ventilator. not able to wean the patient secondary to mental status. Plan for tracheostomy tomorrow. 2.Acute renal failure most likely secondary to glomerulonephritis. BUN is 102. Creatinine is 2.5. monitor closely. 3.Thrombocytopenia;secondary to alcohol-induced bone marrow suppression. Platelet is 97. bleeding precautions in place. 4.GI: Hepatic encephalopathy; repeat head CT is negative. Continue Lactulose Continue with Vital AF tube feedings as 45ml/hr. Case discussed with GI in detail. Patient is a poor candidate for PEG tube placement. 5.Sepsis/Fungemia with tom albicans; Repeat Blood cs is negative. Continue Micafungin,, Merem and doxycycline. 6.C Diff infection. on po Vancomycin GI/DVT prophylaxis with SCD. Case discussed with case liner/social science instructor in detail for discharge planning. prognosis is poor.
--- NOTE | 2016-10-18 15:35 | CP.PCM.CON ---
History of Present Illness - History of Present Illness History of Present Illness: SURGERY CONSULT NOTE 56M presents with a history of alcohol liver cirrhosis, previously treated in the ICU resolved septic shock. Patient is in end stage liver failure currently intubated without sedation or pressors. Patient recently underwent a paracentesis in which 2 liters was originally drained. Site of paracentesis still leaking fluid. Surgery team was consulted for Gastrostomy. ENT plan tracheostomy for tomorrow. PMH: Liver cirrhosis, gastritis, hepatitis C, transaminitis, pancytopenia, ETOH withdrawal/abuse, esophageal varices, and hypertension. PSH: polypectomy x 4, Variceal banding (Feb 2015), Paracentesis All: pseudoephedrine makes him nauseaus, sulfa drugs causes angioedema, penicilin causes anxiety FHx: father from liver cancer, mother from breast cancer. sister had brain aneurysm SHx: half a pack per day x 30 years, ETOH 1 pint per day. History of heroin abuse Past Patient History - Infectious Disease Hx of Infectious Diseases: None - Tetanus Immunizations Tetanus Immunization: Unknown - Past Medical History & Family History Past Medical History?: Yes - Past Social History Smoking Status: Heavy Smoker > 10 Cigarettes Daily - CARDIAC Hx Cardiac Disorders: No - PULMONARY Hx Respiratory Disorders: No Other/Comment: Active smoker - NEUROLOGICAL Hx Neurological Disorder: Yes Hx Seizures: Yes - HEENT Hx HEENT Problems: Yes (eyeglasses) - RENAL Hx Chronic Kidney Disease: No - ENDOCRINE/METABOLIC Hx Endocrine Disorders: No - HEMATOLOGICAL/ONCOLOGICAL Hx Blood Disorders: No - INTEGUMENTARY Hx Dermatological Problems: No - MUSCULOSKELETAL/RHEUMATOLOGICAL Hx Falls: No - GASTROINTESTINAL Hx Gastrointestinal Disorders: Yes Other/Comment: Liver Dx, esophogeal varices, - GENITOURINARY/GYNECOLOGICAL Hx Genitourinary Disorders: No - PSYCHIATRIC Hx Psychophysiologic Disorder: Yes Hx Depression: Yes Hx Substance Use: No - SURGICAL HISTORY Other/Comment: s/p banding of varices x2. endoscopy - ANESTHESIA Hx Anesthesia: Yes Hx Anesthesia Reactions: No Hx Malignant Hyperthermia: No Meds Allergies/Adverse Reactions: Allergies Allergy/AdvReac Type Severity Reaction Status Date / Time pseudoephedrine HCl Allergy Mild NAUSEA Verified 10/02/16 19:19 [From Sudafed] Sulfa (Sulfonamide Allergy Mild ANGIOEDEMA Verified 10/02/16 19:19 Antibiotics) Penicillins AdvReac Anxiety Verified 10/02/16 19:19 - Medications Medications: Current Medications Albuterol/Ipratropium (Duoneb 3 Mg/0.5 Mg (3 Ml) Ud) 3 ml IH [id number] [facility] Last Admin: 10/18/16 13:18 Dose: 3 ml Artificial Tears (Artificial Tears Opht Oint) 1 gm OU Q6 [facility] Last Admin: 10/18/16 11:08 Dose: 3.5 applic Folic Acid (Folic Acid) 1 mg PO DAILY [facility] Last Admin: 10/18/16 09:12 Dose: 1 mg Meropenem 500 mg/ Sodium (Chloride) 100 mls @ 100 mls/hr IVPB Q12 [facility] PRN Reason: Protocol Stop: 10/21/16 07:07 Last Admin: 10/18/16 09:17 Dose: 100 mls/hr Gentamicin Sulfate 270 mg/ (Sodium Chloride) 106.75 mls @ 106.75 mls/hr IVPB ONCE [facility] Last Admin: 10/17/16 11:42 Dose: 106.75 mls/hr Doxycycline Hyclate 100 mg/ (Sodium Chloride) 100 mls @ 100 mls/hr IVPB Q12 [facility] PRN Reason: Protocol Stop: 10/23/16 10:01 Last Admin: 10/18/16 10:03 Dose: 100 mls/hr Dextrose (Dextrose 5% In Water 1000 Ml) 1,000 mls @ 150 mls/hr IV .Q6H40M [facility] Last Admin: 10/17/16 22:35 Dose: 150 mls/hr Sodium Chloride (Sodium Chloride 0.9%) 1,000 mls @ 100 mls/hr IV .Q10H [facility] Last Admin: 10/18/16 05:39 Dose: 100 mls/hr Micafungin Sodium 100 mg/ (Sodium Chloride) 100 mls @ 100 mls/hr IV DAILY [facility] PRN Reason: Protocol Stop: 10/25/16 10:01 Last Admin: 10/18/16 11:07 Dose: 100 mls/hr Lactulose (Enulose) 20 gm PO TID [facility] Last Admin: 10/18/16 14:08 Dose: 20 gm Lorazepam (Ativan) 2 mg IVP Q2H PRN; Protocol PRN Reason: Agitation Last Admin: 10/07/16 05:33 Dose: 2 mg Metoclopramide HCl (Reglan) 10 mg IVP Q6H PRN PRN Reason: Other Last Admin: 10/18/16 09:19 Dose: 10 mg Midodrine (Proamatine) 5 mg PO TID [facility] Last Admin: 10/18/16 14:08 Dose: 5 mg Pantoprazole Sodium (Protonix Inj) 40 mg IVP DAILY [facility] Last Admin: 10/18/16 09:19 Dose: 40 mg Thiamine HCl (Vitamin B1 Tab) 100 mg PO DAILY [facility] Last Admin: 10/18/16 09:12 Dose: 100 mg Vitamin A (Vitamin A & D Oint Ud Foilpak) 1 ea TOP DAILY [facility] Last Admin: 10/18/16 09:17 Dose: 1 ea Vitamin B Complex/Vit C/Folic Acid (Nephro-Mariann) 1 tab PO 0800 [facility] Last Admin: 10/18/16 07:51 Dose: 1 tab Physical Exam - Constitutional Additional comments: intubated and does not follow commands - Head Exam Head Exam: ATRAUMATIC - Respiratory Exam Respiratory Exam: Clear to Auscultation Bilateral Additional comments: intubated - Cardiovascular Exam Cardiovascular Exam: REGULAR RHYTHM, +S1, +S2 - GI/Abdominal Exam GI & Abdominal Exam: Distended, Soft. absent: Firm, Guarding, Rebound, Rigid, Tenderness Additional comments: site of paracentesis dressing is CDI - Neurological Exam Neurological exam: Altered - Skin Skin Exam: Dry, Intact, Normal Color, Warm Results - Vital Signs Recent Vital Signs: Last Vital Signs Temp 99.7 F H 10/18/16 14:00 Pulse 90 10/18/16 14:00 Resp 29 H 10/18/16 07:14 BP 111/71 10/18/16 14:00 Pulse Ox 96 10/18/16 14:00 - Labs Result Diagrams: 10/19/16 06:15 10/19/16 06:15 Labs: Laboratory Results - last 24 hr 10/17/16 10/18/16 10/18/16 22:04 05:10 05:10 WBC 8.0 D RBC 2.58 L Hgb 8.3 L Hct 26.4 L MCV 102.3 MCH 32.2 MCHC 31.4 RDW 15.9 H Plt Count 97 L MPV 11.8 H Gran % 75.0 H Lymph % (Auto) 20.3 L Weston % (Auto) 4.5 Eos % (Auto) 0.0 L Baso % (Auto) 0.2 Gran # 6.00 Lymph # 1.6 Weston # 0.4 Eos # 0.0 Baso # 0.02 Sodium 148 Potassium 3.4 L Chloride 116 H Carbon Dioxide 21 Anion Gap 14 BUN 97 H Creatinine 2.5 H Est GFR ( Amer) 32 Est GFR (Non-Af Amer) 27 POC Glucose (mg/dL) 133 H Random Glucose 99 Calcium 7.2 L Total Bilirubin 1.6 H AST 85 H D ALT 62 H Alkaline Phosphatase 93 Total Protein 5.2 L Albumin 2.0 L Globulin 3.2 Albumin/Globulin Ratio 0.6 L Gentamicin Trough Blood Type Antibody Screen BBK History Checked 10/18/16 10/18/16 05:10 11:10 WBC RBC Hgb Hct MCV MCH MCHC RDW Plt Count MPV Gran % Lymph % (Auto) Weston % (Auto) Eos % (Auto) Baso % (Auto) Gran # Lymph # Weston # Eos # Baso # Sodium Potassium Chloride Carbon Dioxide Anion Gap BUN Creatinine Est GFR ( Amer) Est GFR (Non-Af Amer) POC Glucose (mg/dL) Random Glucose Calcium Total Bilirubin AST ALT Alkaline Phosphatase Total Protein Albumin Globulin Albumin/Globulin Ratio Gentamicin Trough 8.0 H* Blood Type O POSITIVE Antibody Screen Negative BBK History Checked Patient has bt Assessment & Plan - Assessment and Plan (Free Text) Assessment: 56M with end stage liver disease with encephalopathy, currently intubated in the ICU Surgery consulted for Gastrostomy tube. Plan: - Patient going for tracheostomy tomorrow. - Plan for Gastrostomy tube Monday 10/23 - Pre-Op Sunday Further recs discuss with Dr. Yg Amos, PGY2
--- NOTE | 2016-10-18 15:45 | CP.PCM.PN ---
Subjective - Date & Time of Evaluation Date of Evaluation: 10/18/16 Time of Evaluation: 15:20 - Subjective Subjective: Patient continues to have low grade fevers, still on the ventilator. Objective - Vital Signs/Intake and Output Vital Signs (last 24 hours): Temp Pulse Resp BP Pulse Ox 99.7 F H 89 29 H 112/69 95 10/18/16 05:28 10/18/16 05:28 10/18/16 07:14 10/18/16 05:28 10/18/16 07:14 Intake and Output: 10/18/16 10/18/16 06:59 18:59 Intake Total 4160 Output Total 1900 Balance 2260 - Medications Medications: Current Medications Albuterol/Ipratropium (Duoneb 3 Mg/0.5 Mg (3 Ml) Ud) 3 ml IH [id number] [facility] Last Admin: 10/18/16 07:07 Dose: 3 ml Artificial Tears (Artificial Tears Opht Oint) 1 gm OU Q6 [facility] Last Admin: 10/18/16 05:40 Dose: 1 applic Folic Acid (Folic Acid) 1 mg PO DAILY [facility] Last Admin: 10/18/16 09:12 Dose: 1 mg Meropenem 500 mg/ Sodium (Chloride) 100 mls @ 100 mls/hr IVPB Q12 [facility] PRN Reason: Protocol Stop: 10/21/16 07:07 Last Admin: 10/18/16 09:17 Dose: 100 mls/hr Gentamicin Sulfate 270 mg/ (Sodium Chloride) 106.75 mls @ 106.75 mls/hr IVPB ONCE [facility] Last Admin: 10/17/16 11:42 Dose: 106.75 mls/hr Doxycycline Hyclate 100 mg/ (Sodium Chloride) 100 mls @ 100 mls/hr IVPB Q12 [facility] PRN Reason: Protocol Stop: 10/23/16 10:01 Last Admin: 10/17/16 22:32 Dose: 100 mls/hr Dextrose (Dextrose 5% In Water 1000 Ml) 1,000 mls @ 150 mls/hr IV .Q6H40M [facility] Last Admin: 10/17/16 22:35 Dose: 150 mls/hr Sodium Chloride (Sodium Chloride 0.9%) 1,000 mls @ 100 mls/hr IV .Q10H [facility] Last Admin: 10/18/16 05:39 Dose: 100 mls/hr Micafungin Sodium 100 mg/ (Sodium Chloride) 100 mls @ 100 mls/hr IV DAILY [facility] PRN Reason: Protocol Stop: 10/25/16 10:01 Lactulose (Enulose) 20 gm PO TID [facility] Last Admin: 10/18/16 09:19 Dose: 20 gm Lorazepam (Ativan) 2 mg IVP Q2H PRN; Protocol PRN Reason: Agitation Last Admin: 10/07/16 05:33 Dose: 2 mg Metoclopramide HCl (Reglan) 10 mg IVP Q6H PRN PRN Reason: Other Last Admin: 10/18/16 09:19 Dose: 10 mg Midodrine (Proamatine) 5 mg PO TID [facility] Last Admin: 10/18/16 09:12 Dose: 5 mg Pantoprazole Sodium (Protonix Inj) 40 mg IVP DAILY [facility] Last Admin: 10/18/16 09:19 Dose: 40 mg Thiamine HCl (Vitamin B1 Tab) 100 mg PO DAILY [facility] Last Admin: 10/18/16 09:12 Dose: 100 mg Vancomycin HCl (Vancocin 25 Mg/Ml (Oral Use)) 125 mg PO Q6H [facility] PRN Reason: Protocol Last Admin: 10/18/16 05:38 Dose: 125 mg Vitamin A (Vitamin A & D Oint Ud Foilpak) 1 ea TOP DAILY [facility] Last Admin: 10/18/16 09:17 Dose: 1 ea Vitamin B Complex/Vit C/Folic Acid (Nephro-Mariann) 1 tab PO 0800 [facility] Last Admin: 10/18/16 07:51 Dose: 1 tab - Labs Labs: 10/18/16 05:10 10/18/16 05:10 PT 14.5 Seconds (9.9-11.8) H 10/17/16 05:32 INR 1.34 (0.93-1.08) H 10/17/16 05:32 APTT 33.4 Seconds (23.7-30.8) H 10/17/16 05:32 - Constitutional Appears: Other (still on the vent) - Head Exam Head Exam: NORMAL INSPECTION - ENT Exam Additional comments: ET tube in place - Neck Exam Neck Exam: absent: Meningismus - Respiratory Exam Respiratory Exam: Decreased Breath Sounds - Cardiovascular Exam Cardiovascular Exam: +S1, +S2 - GI/Abdominal Exam GI & Abdominal Exam: Distended, Soft. absent: Guarding, Rigid, Tenderness Assessment and Plan - Assessment and Plan (Free Text) Plan: Assessment severe sepsis with ventilator-dependent respiratory failure, respiratory acidosis and acute renal failure probably due to C. albicans fungemia on top of colitis or spontaneous bacterial peritonitis in this patient with liver cirrhosis probably from alcohol abuse; S/P paracentesis; initially presented with delerium tremens; patient has possible new onset right sided and healthcare -associated pneumonia chronic alcohol abuse with history of liver cirrhosis and esophageal varices significant smoking history Plan will continue Merrem (day 14) and will d/c Zyvox (S/P 3 days, no evidence of MRSA on most recent cultures) and continue Doxycyline (day 4) reviewed repeat CXR which is showing possible new right lower lobe infiltrate; we have continue PO Vancomycin (day 14) -target 14 days of therapy continue Mycamine (repeat blood cx on 10/08/2016 are negative - we are cautious not to use Fluconazole in this patient with worsening hepatic failure, although Mycamine has also been implicated with some liver toxicity as well but less reports compared to Fluconazole) - should have at least 2 weeks of antifungal therapy (day 11 today) - patient had Ophtho evaluation a week ago and no endophthalmitis was seen will continue to monitor clinically patient continues to be in critical condition and overall prognosis is poor - patient has been made DNR discussed with ICU team
--- NOTE | 2016-10-18 20:44 | CP.PCM.PN ---
Subjective - Date & Time of Evaluation Date of Evaluation: 10/18/16 Time of Evaluation: 11:00 - Subjective Subjective: Patient still putting out copious stool from flexiseal per nursing staff; Objective - Vital Signs/Intake and Output Vital Signs (last 24 hours): Temp Pulse Resp BP Pulse Ox 99.0 F 82 29 H 109/63 96 10/18/16 18:00 10/18/16 18:00 10/18/16 07:14 10/18/16 18:00 10/18/16 18:00 Intake and Output: 10/18/16 10/19/16 18:59 06:59 Output Total 2400 Balance -2400 - Medications Medications: Current Medications Albuterol/Ipratropium (Duoneb 3 Mg/0.5 Mg (3 Ml) Ud) 3 ml IH [id number] [facility] Last Admin: 10/18/16 20:00 Dose: 3 ml Artificial Tears (Artificial Tears Opht Oint) 1 gm OU Q6 [facility] Last Admin: 10/18/16 17:18 Dose: 3.5 applic Folic Acid (Folic Acid) 1 mg PO DAILY [facility] Last Admin: 10/18/16 09:12 Dose: 1 mg Meropenem 500 mg/ Sodium (Chloride) 100 mls @ 100 mls/hr IVPB Q12 [facility] PRN Reason: Protocol Stop: 10/21/16 07:07 Last Admin: 10/18/16 09:17 Dose: 100 mls/hr Gentamicin Sulfate 270 mg/ (Sodium Chloride) 106.75 mls @ 106.75 mls/hr IVPB ONCE [facility] Last Admin: 10/17/16 11:42 Dose: 106.75 mls/hr Doxycycline Hyclate 100 mg/ (Sodium Chloride) 100 mls @ 100 mls/hr IVPB Q12 [facility] PRN Reason: Protocol Stop: 10/23/16 10:01 Last Admin: 10/18/16 10:03 Dose: 100 mls/hr Sodium Chloride (Sodium Chloride 0.9%) 1,000 mls @ 100 mls/hr IV .Q10H [facility] Last Admin: 10/18/16 05:39 Dose: 100 mls/hr Micafungin Sodium 100 mg/ (Sodium Chloride) 100 mls @ 100 mls/hr IV DAILY [facility] PRN Reason: Protocol Stop: 10/25/16 10:01 Last Admin: 10/18/16 11:07 Dose: 100 mls/hr Dextrose (Dextrose 5% In Water 1000 Ml) 1,000 mls @ 200 mls/hr IV .Q5H [facility] Lactulose (Enulose) 20 gm PO TID [facility] Last Admin: 10/18/16 17:17 Dose: 20 gm Lorazepam (Ativan) 2 mg IVP Q2H PRN; Protocol PRN Reason: Agitation Last Admin: 10/07/16 05:33 Dose: 2 mg Metoclopramide HCl (Reglan) 10 mg IVP Q6H PRN PRN Reason: Other Last Admin: 10/18/16 09:19 Dose: 10 mg Midodrine (Proamatine) 5 mg PO TID [facility] Last Admin: 10/18/16 17:17 Dose: 5 mg Pantoprazole Sodium (Protonix Inj) 40 mg IVP DAILY [facility] Last Admin: 10/18/16 09:19 Dose: 40 mg Thiamine HCl (Vitamin B1 Tab) 100 mg PO DAILY [facility] Last Admin: 10/18/16 09:12 Dose: 100 mg Vitamin A (Vitamin A & D Oint Ud Foilpak) 1 ea TOP DAILY [facility] Last Admin: 10/18/16 09:17 Dose: 1 ea Vitamin B Complex/Vit C/Folic Acid (Nephro-Mariann) 1 tab PO 0800 [facility] Last Admin: 10/18/16 07:51 Dose: 1 tab - Labs Labs: 10/18/16 05:10 10/18/16 05:10 PT 14.5 Seconds (9.9-11.8) H 10/17/16 05:32 INR 1.34 (0.93-1.08) H 10/17/16 05:32 APTT 33.4 Seconds (23.7-30.8) H 10/17/16 05:32 - Constitutional Appears: No Acute Distress - Head Exam Head Exam: NORMAL INSPECTION - ENT Exam ENT Exam: Mucous Membranes Moist - Respiratory Exam Respiratory Exam: Clear to Ausculation Bilateral Additional comments: tachypneic - Cardiovascular Exam Cardiovascular Exam: +S1, +S2 - GI/Abdominal Exam GI & Abdominal Exam: Distended, Soft - Exam Additional comments: terrell in place - Extremities Exam Additional comments: moderately edematous - Neurological Exam Neurological Exam: Awake Additional comments: not following commands - Skin Skin Exam: Warm. absent: Cyanosis Assessment and Plan (1) Acute renal failure Assessment & Plan: Multifactorial etiology (GN, ATN, pre-renal); improving with volume replenishment; IVF increased to NS at 100 cc/hr, continue; Status: Acute (2) Acute hypercapnic respiratory failure Assessment & Plan: Still tachypneic and overbreathing vent; going to trach tomorrow; Status: Acute (3) Hypokalemia Assessment & Plan: Mild, in the setting of stool losses; continue to replenish prn; Status: Acute (4) Hypocalcemia Status: Resolved (5) SIRS (systemic inflammatory response syndrome) Assessment & Plan: Sepsis; gent trough very high, held; should not restart until trough < 2 ( preferrably < 1); Status: Acute (6) Hypernatremia Assessment & Plan: Improving; increase D5W to 200 cc/hr; Status: Acute
[2016-10-19] MEDS: Sodium Chloride 0.9% 1,000 ML IV SCH (02:22)
[2016-10-19] MEDS: Albuterol-Ipratrop 3 mg / 0.5 (3 ml) UD IH SCH ×4 (02:40→19:29)
[2016-10-19 05:35] LABS: (1-3)-B-D GLUCAN >500 pg/mL
[2016-10-19] MEDS: Mineral Oil/Petrolatum Opht Oint(3.5 gm) OU SCH ×4 (05:37→17:52)
[2016-10-19 06:43] LABS: BASO # 0.01 K/mm3 (0.0-2.0); BASO % 0.1 % (0.0-3.0); EOS % 0.2 % (1.5-5.0); GRAN # 9.93 (1.4-6.5); GRAN % 80.1 % (50.0-68.0); HEMATOCRIT 30.1 % (42.0-52.0); LYMPH % 16.5 % (22.0-35.0); MEAN CELL VOLUME 102.7 fl (80.0-105.0); MEAN CORPUSCULAR HEMOGLOBIN 31.4 pg (25.0-35.0); MEAN CORPUSCULAR HGB CONC 30.6 g/dl (31.0-37.0); MEAN PLATELET VOLUME 12.2 fl (7.0-11.0); MONO # 0.4 (0.1-0.6); MONO % 3.1 % (1.0-6.0); RED CELL DISTRIBUTION WIDTH 15.9 % (11.5-14.5); WHITE BLOOD COUNT 12.4 10^3/ul (4.5-11.0)
[2016-10-19 07:05] LABS: ALB/GLOB RATIO 0.6 (1.1-1.8); BILIRUBIN,TOTAL 1.8 mg/dL (0.2-1.3); CALCIUM 7.2 mg/dL (8.4-10.5); MAGNESIUM 1.2 mg/dL (1.7-2.2); PHOSPHOROUS 6.9 mg/dL (2.5-4.5); POTASSIUM 4.1 mmol/L (3.6-5.0); TOTAL PROTEIN 5.7 g/dL (5.8-8.3)
[2016-10-19] MEDS ORDERED: Magnesium Sulfate 2 GM in Sodium Chloride 0.9% 100 ML IVPB ONE (07:31)
[2016-10-19 07:44] LABS: ABG MECHANICAL RATE 26; ATERIAL BLOOD GAS PEEP 5
--- NOTE | 2016-10-19 09:01 | RAD ---
HISTORY: Intubated; increased oxygen demands COMPARISON: 10/16/2016 FINDINGS: LUNGS: There is a new alveolar infiltrate in the right lower lobe consistent with pneumonia. Endotracheal tube is unchanged. The tip of the nasogastric tube is not visualized. PLEURA: No significant pleural effusion identified, no pneumothorax apparent. CARDIOVASCULAR: Normal. OSSEOUS STRUCTURES: No significant abnormalities. VISUALIZED UPPER ABDOMEN: Normal. OTHER FINDINGS: None. IMPRESSION: New right lower lobe pneumonia
[2016-10-19] MEDS: Multivitamin Vitamin B Complex (Nephro-Vite) Tab PO SCH (09:04)
[2016-10-19] MEDS ORDERED: LIDOCAIN/EPI 1-0.001% 10ML INJ SOL IJ ONE (09:05)
--- NOTE | 2016-10-19 09:16 | CP.PCM.PN ---
Subjective - Date & Time of Evaluation Date of Evaluation: 10/19/16 Time of Evaluation: 09:14 - Subjective Subjective: Spoke with Daughter (Nasrin Kruger)this morning to obtain telephone consent for tracheostomy. She agreed to temporary rescind DNR order while patient is in operating room. Objective - Vital Signs/Intake and Output Vital Signs (last 24 hours): Temp Pulse Resp BP Pulse Ox 99.1 F 100 H 30 H 107/64 95 10/19/16 08:28 10/19/16 08:28 10/19/16 08:28 10/19/16 08:28 10/18/16 20:00 Intake and Output: 10/19/16 10/19/16 06:59 18:59 Intake Total 4160 10 Output Total 1350 Balance 2810 10 - Medications Medications: Current Medications Albuterol/Ipratropium (Duoneb 3 Mg/0.5 Mg (3 Ml) Ud) 3 ml IH [id number] [facility] Last Admin: 10/19/16 07:27 Dose: 3 ml Artificial Tears (Artificial Tears Opht Oint) 1 gm OU Q6 [facility] Last Admin: 10/19/16 05:37 Dose: 1 applic Folic Acid (Folic Acid) 1 mg PO DAILY [facility] Last Admin: 10/18/16 09:12 Dose: 1 mg Meropenem 500 mg/ Sodium (Chloride) 100 mls @ 100 mls/hr IVPB Q12 [facility] PRN Reason: Protocol Stop: 10/21/16 07:07 Last Admin: 10/18/16 21:39 Dose: 100 mls/hr Gentamicin Sulfate 270 mg/ (Sodium Chloride) 106.75 mls @ 106.75 mls/hr IVPB ONCE [facility] Last Admin: 10/17/16 11:42 Dose: 106.75 mls/hr Doxycycline Hyclate 100 mg/ (Sodium Chloride) 100 mls @ 100 mls/hr IVPB Q12 [facility] PRN Reason: Protocol Stop: 10/23/16 10:01 Last Admin: 10/18/16 21:40 Dose: 100 mls/hr Sodium Chloride (Sodium Chloride 0.9%) 1,000 mls @ 100 mls/hr IV .Q10H [facility] Last Admin: 10/19/16 02:22 Dose: 100 mls/hr Micafungin Sodium 100 mg/ (Sodium Chloride) 100 mls @ 100 mls/hr IV DAILY [facility] PRN Reason: Protocol Stop: 10/25/16 10:01 Last Admin: 10/18/16 11:07 Dose: 100 mls/hr Dextrose (Dextrose 5% In Water 1000 Ml) 1,000 mls @ 200 mls/hr IV .Q5H [facility] Last Admin: 10/19/16 07:28 Dose: 200 mls/hr Lactulose (Enulose) 20 gm PO TID [facility] Last Admin: 10/18/16 17:17 Dose: 20 gm Lorazepam (Ativan) 2 mg IVP Q2H PRN; Protocol PRN Reason: Agitation Last Admin: 10/07/16 05:33 Dose: 2 mg Metoclopramide HCl (Reglan) 10 mg IVP Q6H PRN PRN Reason: Other Last Admin: 10/18/16 09:19 Dose: 10 mg Midodrine (Proamatine) 5 mg PO TID [facility] Last Admin: 10/18/16 17:17 Dose: 5 mg Pantoprazole Sodium (Protonix Inj) 40 mg IVP DAILY [facility] Last Admin: 10/18/16 09:19 Dose: 40 mg Thiamine HCl (Vitamin B1 Tab) 100 mg PO DAILY [facility] Last Admin: 10/18/16 09:12 Dose: 100 mg Vitamin A (Vitamin A & D Oint Ud Foilpak) 1 ea TOP DAILY [facility] Last Admin: 10/18/16 09:17 Dose: 1 ea Vitamin B Complex/Vit C/Folic Acid (Nephro-Mariann) 1 tab PO 0800 [facility] Last Admin: 10/18/16 07:51 Dose: 1 tab - Labs Labs: 10/19/16 06:15 10/19/16 06:15 PT 14.5 Seconds (9.9-11.8) H 10/17/16 05:32 INR 1.34 (0.93-1.08) H 10/17/16 05:32 APTT 33.4 Seconds (23.7-30.8) H 10/17/16 05:32
[2016-10-19] MEDS ORDERED: Phenylephrine 10 mg/ml Inj ONE (09:18)
[2016-10-19] MEDS: Meropenem 500 MG in Sodium Chloride 0.9% 100 ML IVPB SCH ×2 (09:20→21:08)
[2016-10-19] MEDS ORDERED: Rocuronium 10 mg/ml (5 ml) ONE (10:06)
--- NOTE | 2016-10-19 10:13 | CP.CCUPN ---
<KENDY CERNA - Last Filed: 10/19/16 10:07> CCU Subjective - Physician Review Subjective (Free Text): 10/19/16 10:44 Patient was seen and assessed at bedside. Patient intubated on PRVC mode and without sedated, however patient continues to be unresponsive to verbal, tactile and painful stimuli. Patient became hypoxemic with persistent oxygen saturations in the 80's, per nursing reports. Patients vent settings were changed to FiO2 at 60% from 40% and this issue resolved. No other acute events were noted. CCU Objective - Vital Signs / Intake & Output Vital Signs (Last 4 hours): Vital Signs Temp Pulse Resp BP 10/19/16 08:28 99.1 F 100 H 30 H 107/64 10/19/16 06:59 99.3 F 102 H 27 H 113/65 10/19/16 06:14 99.3 F 104 H 29 H 118/69 Intake and Output (Last 8hrs): Intake & Output 10/18/16 10/19/16 10/19/16 22:59 06:59 14:59 Intake Total 4160 10 Output Total 2400 1350 Balance -2400 2810 10 Intake: IV 3600 Right Forearm 2400 Right Hand 1200 Tube Feeding 120 Blood Product 290 10 Apheresis Plts Acda Lr 0 10 2nd Con Unit [id number] Other 150 Output: Urine 1300 450 Urethral (Vyas) 1300 450 Stool 1100 900 - Physical Exam Head: Positive for: Atraumatic, Normocephalic Pupils: Positive for: PERRL, Sluggish Extroacular Muscles: Positive for: EOMI Conjunctiva: Positive for: Normal Ears: Positive for: Normal Mouth: Positive for: Moist Mucous Membranes, Other (ET and NG tube in position) Nose (External): Positive for: Atraumatic Neck: Positive for: Normal Range of Motion, Trachea Midline. Negative for: Lymphadenopathy Respiratory/Chest: Positive for: Clear to Auscultation, Good Air Exchange, Tachypneic, Other (Mechanical ventilation). Negative for: Respiratory Distress , Accessory Muscle Use, Wheezes, Decreased Breath Sounds, Retracting, Rhonchi Cardiovascular: Positive for: Regular Rate and Rhythm, Normal S1, S2. Negative for: Murmurs Abdomen: Positive for: Normal Bowel Sounds, Other (Paracentesis site with sutures, no signs of infection, dressing clean, dry and intact; shifting dullness). Negative for: Tenderness, Distention, Peritoneal Signs Genitourinary Male: Positive for: Testicle Swelling (Improved), Other (Vyas in place, no signs of infection) Back: Positive for: Normal Inspection Upper Extremity: Positive for: Edema (1+ pitting edema B/L UE). Negative for: Normal Inspection (Multiple areas of ecchymoses), Cyanosis Lower Extremity: Positive for: Edema (1+ Pitting edema B/L up to thighs). Negative for: Normal Inspection Neurological: Positive for: Other (Gag and corneal reflex intact; ability to track motion with eyes intact). Negative for: GCS=15 (GCS of 3T), CN II-XII Intact, Speech Normal Skin: Positive for: Warm, Other (Area of erythema on the presacral area of the lower back measuring approximately 2-3cm with no skin ulceration; currently unstageable ). Negative for: Rashes, Normal Color (multiple ecchymoses over UE B/L) Psychiatric: Negative for: Alert (arousable to tactile stimuli), Oriented x 3, Normal Insight, Normal Concentration - Medications Active Medications: Active Medications Generic Name Dose Route Start Last Admin Trade Name Freq PRN Reason Stop Dose Admin Albuterol/Ipratropium 3 ml 10/05/16 08:00 10/19/16 07:27 Duoneb 3 Mg/0.5 Mg (3 Ml) Ud IH 3 ml [id number] TONI Administration Artificial Tears 1 gm 10/10/16 18:00 10/19/16 05:37 Artificial Tears Opht Oint OU 1 applic Q6 TONI Administration Folic Acid 1 mg 10/03/16 10:00 10/19/16 09:02 Folic Acid PO 1 mg DAILY TONI Administration Meropenem 500 mg/ Sodium 100 mls @ 100 mls/hr 10/14/16 07:06 10/19/16 09:20 Chloride IVPB 10/21/16 07:07 100 mls/hr Q12 TONI Administration Protocol Gentamicin Sulfate 270 mg/ 106.75 mls @ 106.75 mls/hr 10/15/16 10:00 11:42 Sodium Chloride IVPB 106.75 mls/hr ONCE TONI Administration Doxycycline Hyclate 100 mg/ 100 mls @ 100 mls/hr 10/16/16 10:00 10/18/16 21: 40 Sodium Chloride IVPB 10/23/16 10:01 100 mls/hr Q12 TONI Administration Protocol Sodium Chloride 1,000 mls @ 100 mls/hr 10/17/16 18:43 10/19/16 02:22 Sodium Chloride 0.9% IV 100 mls/hr .Q10H TONI Administration Micafungin Sodium 100 mg/ 100 mls @ 100 mls/hr 10/18/16 10:00 10/18/16 11:07 Sodium Chloride IV 10/25/16 10:01 100 mls/hr DAILY TONI Administration Protocol Dextrose 1,000 mls @ 200 mls/hr 10/18/16 20:42 10/19/16 07:28 Dextrose 5% In Water 1000 Ml IV 200 mls/hr .Q5H TONI Administration Lactulose 20 gm 10/11/16 10:00 10/19/16 09:02 Enulose PO 20 gm TID TONI Administration Lorazepam 2 mg 10/02/16 21:28 10/07/16 05:33 Ativan IVP 2 mg Q2H PRN Administration Agitation Protocol Metoclopramide HCl 10 mg 10/09/16 16:56 10/18/16 09:19 Reglan IVP 10 mg Q6H PRN Administration Other Midodrine 5 mg 10/09/16 10:00 10/19/16 09:02 Proamatine PO 5 mg TID TONI Administration Pantoprazole Sodium 40 mg 10/03/16 10:00 10/19/16 09:03 Protonix Inj IVP 40 mg DAILY TONI Administration Thiamine HCl 100 mg 10/03/16 10:00 10/19/16 09:02 Vitamin B1 Tab PO 100 mg DAILY TONI Administration Vitamin A 1 ea 10/03/16 10:00 10/18/16 09:17 Vitamin A & D Oint Ud Foilpak TOP 1 ea DAILY TONI Administration Vitamin B Complex/Vit C/Folic Acid 1 tab 10/03/16 08:00 10/19/16 09:04 Nephro-Mraiann PO 1 tab 0800 TONI Administration - Patient Studies Lab Studies: Microbiology Studies 10/18/16 08:07 Urine Culture - Final Urine,Vyas No Growth (<1,000 CFU/ML) 10/14/16 08:00 Blood Culture - Final Blood NO GROWTH AFTER 5 DAYS Gram Stain - Final TEST NOT PERFORMED 10/16/16 11:25 Blood Culture - Preliminary Blood-Venous NO GROWTH AFTER 48 HOURS 10/16/16 11:00 Blood Culture - Preliminary Blood-Venous NO GROWTH AFTER 48 HOURS Lab Studies 10/19/16 10/19/16 10/19/16 Range/Units 07:43 06:15 06:15 WBC 12.4 H D (4.5-11.0) 10^3/ul RBC 2.93 L (3.5-6.1) 10^6/uL Hgb 9.2 L (14.0-18.0) g/dL Hct 30.1 L (42.0-52.0) % MCV 102.7 (80.0-105.0) fl MCH 31.4 (25.0-35.0) pg MCHC 30.6 L (31.0-37.0) g/dl RDW 15.9 H (11.5-14.5) % Plt Count 112 L (120.0-450.0) 10^3/uL MPV 12.2 H (7.0-11.0) fl Gran % 80.1 H (50.0-68.0) % Lymph % (Auto) 16.5 L (22.0-35.0) % [place] % (Auto) 3.1 (1.0-6.0) % Eos % (Auto) 0.2 L (1.5-5.0) % Baso % (Auto) 0.1 (0.0-3.0) % Gran # 9.93 H (1.4-6.5) Lymph # 2.0 (1.2-3.4) [place] # 0.4 (0.1-0.6) Eos # 0.0 (0.0-0.7) Baso # 0.01 (0.0-2.0) K/mm3 Sodium 143 (132-148) mmol/L Potassium 4.1 (3.6-5.0) mmol/L Chloride 113 H (98-107) mmol/L Carbon Dioxide 20 L (21-33) mmol/L Anion Gap 14 (10-20) BUN 92 H (7-21) mg/dL Creatinine 2.4 H (0.5-1.4) mg/dL Est GFR ( Amer) 34 Est GFR (Non-Af Amer) 28 POC Glucose (mg/dL) 167 H (65-110) mg/dL Random Glucose 121 H (70-110) mg/dL Calcium 7.2 L (8.4-10.5) mg/dL Phosphorus 6.9 H (2.5-4.5) mg/dL Magnesium 1.2 L (1.7-2.2) mg/dL Total Bilirubin 1.8 H (0.2-1.3) mg/dL AST 87 H (17-59) U/L ALT 71 H (7-56) U/L Alkaline Phosphatase 91 (38-126) U/L Total Protein 5.7 L (5.8-8.3) g/dL Albumin 2.2 L (3.0-4.8) g/dL Globulin 3.5 gm/dL Albumin/Globulin Ratio 0.6 L (1.1-1.8) Gentamicin Trough (0.0-0.9) ug/mL Beta-(1,3)-D-Glucan pg/mL B-(1,3)-D-Glucan Intrp Blood Type Antibody Screen BBK History Checked 10/18/16 10/18/16 10/18/16 Range/Units 21:17 16:15 11:27 WBC (4.5-11.0) 10^3/ul RBC (3.5-6.1) 10^6/uL Hgb (14.0-18.0) g/dL Hct (42.0-52.0) % MCV (80.0-105.0) fl MCH (25.0-35.0) pg MCHC (31.0-37.0) g/dl RDW (11.5-14.5) % Plt Count (120.0-450.0) 10^3/uL MPV (7.0-11.0) fl Gran % (50.0-68.0) % Lymph % (Auto) (22.0-35.0) % [place] % (Auto) (1.0-6.0) % Eos % (Auto) (1.5-5.0) % Baso % (Auto) (0.0-3.0) % Gran # (1.4-6.5) Lymph # (1.2-3.4) [place] # (0.1-0.6) Eos # (0.0-0.7) Baso # (0.0-2.0) K/mm3 Sodium (132-148) mmol/L Potassium (3.6-5.0) mmol/L Chloride (98-107) mmol/L Carbon Dioxide (21-33) mmol/L Anion Gap (10-20) BUN (7-21) mg/dL Creatinine (0.5-1.4) mg/dL Est GFR ( Amer) Est GFR (Non-Af Amer) POC Glucose (mg/dL) 124 H 147 H 132 H (65-110) mg/dL Random Glucose (70-110) mg/dL Calcium (8.4-10.5) mg/dL Phosphorus (2.5-4.5) mg/dL Magnesium (1.7-2.2) mg/dL Total Bilirubin (0.2-1.3) mg/dL AST (17-59) U/L ALT (7-56) U/L Alkaline Phosphatase (38-126) U/L Total Protein (5.8-8.3) g/dL Albumin (3.0-4.8) g/dL Globulin gm/dL Albumin/Globulin Ratio (1.1-1.8) Gentamicin Trough (0.0-0.9) ug/mL Beta-(1,3)-D-Glucan pg/mL B-(1,3)-D-Glucan Intrp Blood Type Antibody Screen BBK History Checked 10/18/16 10/18/16 10/18/16 Range/Units 11:10 08:25 05:10 WBC (4.5-11.0) 10^3/ul RBC (3.5-6.1) 10^6/uL Hgb (14.0-18.0) g/dL Hct (42.0-52.0) % MCV (80.0-105.0) fl MCH (25.0-35.0) pg MCHC (31.0-37.0) g/dl RDW (11.5-14.5) % Plt Count (120.0-450.0) 10^3/uL MPV (7.0-11.0) fl Gran % (50.0-68.0) % Lymph % (Auto) (22.0-35.0) % [place] % (Auto) (1.0-6.0) % Eos % (Auto) (1.5-5.0) % Baso % (Auto) (0.0-3.0) % Gran # (1.4-6.5) Lymph # (1.2-3.4) [place] # (0.1-0.6) Eos # (0.0-0.7) Baso # (0.0-2.0) K/mm3 Sodium (132-148) mmol/L Potassium (3.6-5.0) mmol/L Chloride (98-107) mmol/L Carbon Dioxide (21-33) mmol/L Anion Gap (10-20) BUN (7-21) mg/dL Creatinine (0.5-1.4) mg/dL Est GFR ( Amer) Est GFR (Non-Af Amer) POC Glucose (mg/dL) 119 H (65-110) mg/dL Random Glucose (70-110) mg/dL Calcium (8.4-10.5) mg/dL Phosphorus (2.5-4.5) mg/dL Magnesium (1.7-2.2) mg/dL Total Bilirubin (0.2-1.3) mg/dL AST (17-59) U/L ALT (7-56) U/L Alkaline Phosphatase (38-126) U/L Total Protein (5.8-8.3) g/dL Albumin (3.0-4.8) g/dL Globulin gm/dL Albumin/Globulin Ratio (1.1-1.8) Gentamicin Trough 8.0 H* (0.0-0.9) ug/mL Beta-(1,3)-D-Glucan pg/mL B-(1,3)-D-Glucan Intrp Blood Type O POSITIVE Antibody Screen Negative BBK History Checked Patient has bt 10/14/16 Range/Units 08:00 WBC (4.5-11.0) 10^3/ul RBC (3.5-6.1) 10^6/uL Hgb (14.0-18.0) g/dL Hct (42.0-52.0) % MCV (80.0-105.0) fl MCH (25.0-35.0) pg MCHC (31.0-37.0) g/dl RDW (11.5-14.5) % Plt Count (120.0-450.0) 10^3/uL MPV (7.0-11.0) fl Gran % (50.0-68.0) % Lymph % (Auto) (22.0-35.0) % [place] % (Auto) (1.0-6.0) % Eos % (Auto) (1.5-5.0) % Baso % (Auto) (0.0-3.0) % Gran # (1.4-6.5) Lymph # (1.2-3.4) [place] # (0.1-0.6) Eos # (0.0-0.7) Baso # (0.0-2.0) K/mm3 Sodium (132-148) mmol/L Potassium (3.6-5.0) mmol/L Chloride (98-107) mmol/L Carbon Dioxide (21-33) mmol/L Anion Gap (10-20) BUN (7-21) mg/dL Creatinine (0.5-1.4) mg/dL Est GFR ( Amer) Est GFR (Non-Af Amer) POC Glucose (mg/dL) (65-110) mg/dL Random Glucose (70-110) mg/dL Calcium (8.4-10.5) mg/dL Phosphorus (2.5-4.5) mg/dL Magnesium (1.7-2.2) mg/dL Total Bilirubin (0.2-1.3) mg/dL AST (17-59) U/L ALT (7-56) U/L Alkaline Phosphatase (38-126) U/L Total Protein (5.8-8.3) g/dL Albumin (3.0-4.8) g/dL Globulin gm/dL Albumin/Globulin Ratio (1.1-1.8) Gentamicin Trough (0.0-0.9) ug/mL Beta-(1,3)-D-Glucan >500 H pg/mL B-(1,3)-D-Glucan Intrp Positive H Blood Type Antibody Screen BBK History Checked Laboratory Results - last 24 hr 0910/18/16 10/18/16 08:00 05:10 08:25 WBC RBC Hgb Hct MCV MCH MCHC RDW Plt Count MPV Gran % Lymph % (Auto) [place] % (Auto) Eos % (Auto) Baso % (Auto) Gran # Lymph # [place] # Eos # Baso # Sodium Potassium Chloride Carbon Dioxide Anion Gap BUN Creatinine Est GFR ( Amer) Est GFR (Non-Af Amer) POC Glucose (mg/dL) 119 H Random Glucose Calcium Phosphorus Magnesium Total Bilirubin AST ALT Alkaline Phosphatase Total Protein Albumin Globulin Albumin/Globulin Ratio Gentamicin Trough 8.0 H* Beta-(1,3)-D-Glucan >500 H B-(1,3)-D-Glucan Intrp Positive H Blood Type Antibody Screen BBK History Checked 10/18/16 10/18/16 10/18/16 11:10 11:27 16:15 WBC RBC Hgb Hct MCV MCH MCHC RDW Plt Count MPV Gran % Lymph % (Auto) [place] % (Auto) Eos % (Auto) Baso % (Auto) Gran # Lymph # [place] # Eos # Baso # Sodium Potassium Chloride Carbon Dioxide Anion Gap BUN Creatinine Est GFR ( Amer) Est GFR (Non-Af Amer) POC Glucose (mg/dL) 132 H 147 H Random Glucose Calcium Phosphorus Magnesium Total Bilirubin AST ALT Alkaline Phosphatase Total Protein Albumin Globulin Albumin/Globulin Ratio Gentamicin Trough Beta-(1,3)-D-Glucan B-(1,3)-D-Glucan Intrp Blood Type O POSITIVE Antibody Screen Negative BBK History Checked Patient has bt 10/18/16 10/19/16 10/19/16 21:17 06:15 06:15 WBC 12.4 H D RBC 2.93 L Hgb 9.2 L Hct 30.1 L MCV 102.7 MCH 31.4 MCHC 30.6 L RDW 15.9 H Plt Count 112 L MPV 12.2 H Gran % 80.1 H Lymph % (Auto) 16.5 L [place] % (Auto) 3.1 Eos % (Auto) 0.2 L Baso % (Auto) 0.1 Gran # 9.93 H Lymph # 2.0 [place] # 0.4 Eos # 0.0 Baso # 0.01 Sodium 143 Potassium 4.1 Chloride 113 H Carbon Dioxide 20 L Anion Gap 14 BUN 92 H Creatinine 2.4 H Est GFR ( Amer) 34 Est GFR (Non-Af Amer) 28 POC Glucose (mg/dL) 124 H Random Glucose 121 H Calcium 7.2 L Phosphorus 6.9 H Magnesium 1.2 L Total Bilirubin 1.8 H AST 87 H ALT 71 H Alkaline Phosphatase 91 Total Protein 5.7 L Albumin 2.2 L Globulin 3.5 Albumin/Globulin Ratio 0.6 L Gentamicin Trough Beta-(1,3)-D-Glucan B-(1,3)-D-Glucan Intrp Blood Type Antibody Screen BBK History Checked 10/19/16 07:43 WBC RBC Hgb Hct MCV MCH MCHC RDW Plt Count MPV Gran % Lymph % (Auto) [place] % (Auto) Eos % (Auto) Baso % (Auto) Gran # Lymph # [place] # Eos # Baso # Sodium Potassium Chloride Carbon Dioxide Anion Gap BUN Creatinine Est GFR ( Amer) Est GFR (Non-Af Amer) POC Glucose (mg/dL) 167 H Random Glucose Calcium Phosphorus Magnesium Total Bilirubin AST ALT Alkaline Phosphatase Total Protein Albumin Globulin Albumin/Globulin Ratio Gentamicin Trough Beta-(1,3)-D-Glucan B-(1,3)-D-Glucan Intrp Blood Type Antibody Screen BBK History Checked Fingerstick Blood Sugar Results: 105 Review of Systems - Review of Systems Review of Systems: Please refer to [facility] Critical Care Progress Note - Ventilator Checklist Head of Bed 30 Degrees: Yes PUD Prophalyxis: Yes DVT Prophylaxis: Yes - Vent Settings MODE:: PRVC - Extremities/Vascular Does the Patient have a Central Venous Catheter?: No Does the Patient have a Vyas Catheter?: Yes - Prophylaxis GI Prophylaxis GI: PPI - Prophylaxis DVT Prophylaxis DVT: SCDs Assessment/Plan - Assessment and Plan (Free Text) Assessment: 56 year old male with an initial presentation of AMS in the setting of persistent hypokalemia and alcohol withdrawal, which resolved. Patient was then intubated after he was found to be in hypercapnic respiratory failure and subsequently became hemodynamically unstable requiring dual vasopressor support. His presentation is consistent with distributive shock likely from either acute decompensated chronic liver failure or sepsis from C. Diff colitis , with multiorgan dysfunction syndrome including renal failure, encephalopathy and respiratory failure. Patient is no longer requiring vasopressin or levophed for hemodynamic support but is on midodrine. Patient is currently unresponsive to verbal or tactile stimuli off of sedation. Patient currently on PRVC and is scheduled for tracheostomy today (10/19) at 1000. Plan: Neuro: -CT head showed on 10/02 no acute findings in the brain and no acute hemorrhages or infarcts, age related cortical atrophy and ventriculomegaly -Repeat CT head done on 10/11 and 10/16 showed no acute intracranial pathology with no interval changes. -EEG done on 10/14 showed severe bihemispheric cerebral dysfunction with no epileptiform activity -Currently intubated with no sedation and unresponsive to verbal, tactile or painful stimuli -Continue Lactulose 20mg TID -Continue Ativan 2mg IVP Q2H PRN for symptoms of alcohol withdrawal -Continue Thiamine, Folic Acid and MV supplementation Pulm: Mechanical ventilation settings on PRVC currently at: FiO2-60 PEEP-5 RR-30 TV-400 -Chest X-Ray on 10/16 showed no active disease -Chest X-Ray on 10/18 showed new right lower lobe infiltrate questionable for pneumonia versus atelectasis -Respiratory acidosis requiring increase in RR and hypoxemia overnight requiring increase in FiO2 reflected in ventilation settings -Tracheostomy scheduled for today (10/19) -Continue daily PS/CPAP weaning trials as tolerated -Continue Duonebs 3ml IH [id number] for wheezing -ENT consulted, all recommendations appreciated Cardio: -EKG done on 10/05 shows sinus tachycardia at a rate of 106 and low voltage QRS with a non-specific t-wave abnormality -ECHO done on 10/10 showed LVEF of 55% with poor visualization of the valvular structures due to poor ECHO window and to consider MARILUZ if clinically indicated -Continue midodrine 5mg PO TID -Cardiology consulted, appreciate all recommendations GI: -CT abdomen/pelvis done on 10/04 showed possible sigmoid colitis, mild-to- moderate abdominal and pelvic ascites, free intrarenal gas or definite bowel obstruction, and hepatosplenomegaly again identified as well as diffuse fatty infiltration of liver -Approximately 2.5L of fluid removed via paracentesis on 10/05 with appropriate albumin resuscitation provided -Ascites predominantly lymphocytic and cytology showing no malignancy -Awaiting surgical recommendations for PEG tube placement -AST/ALT at 87/71 with T. Bili at 1.8, currently stable -Continue Lactulose 20mg TID -Vital AF tube feedings at 30ml/hr, increase by 5ml/hr as tolerated -Continue Reglan 10mg IVP Q6H PRN -Rectal tube in place and currently draining 2000cc over the past 24 hours -GI and Surgery consulted, all recommendations appreciated Renal: -BUN/Creatinine at 92/2.4, representing improvement of acute kidney injury -Free water deficit calculated to be approximately 5L -Continue free water flushes 200ml q4 as tolerated, D5W at 200ml/hr and normal saline at 100ml/hr -Vyas catheter in place and draining 1750cc over the past 24 hours -Will continue to replete calcium, magnesium, phosphorus and potassium as needed -Will continue to monitor with serial CMP's -Nephrology consulted, all recommendations appreciated Endocrine: -Will maintain euglycemia with blood glucose between 140 and 180 Heme/Onc: -H/H stable at 9.2/30.1 -Thrombocytopenia improved to 112 from 97 and received one units of platelets prior to tracheostomy today -Will continue to monitor with serial CBC's MSK: -Area of erythema on presacral area measuring approximately 2cm with no skin breakage -Continue to turn patient Q2H to prevent ulceration -PT/OT evaluation and treatment ordered, stated that they will see patient when he is more clinically appropriate for therapy ID: -Currently on Micafungin 100mg IV daily (day 12), Merrem 250mg IVPB Q12 (day 14) , and Doxycycline 100mg IVPB Q12 (Day 2); Gentamycin at 106.75mls/hr IVPB (Day 4 ) (currently held as trough was elevated to 7.5) -Currently with a leukocytosis to 12.4 but afebrile, normotensive, and non- tachycardic -Most recent blood and urine cultures negative for growth for 48 hours -Sputum culture drawn on 10/14 grew Pseudomonas Aeruginosa, susceptible to Merrem and Gentamycin -Previous blood, sputum and urine cultures drawn on 10/05 grew Mellisa Albicans -C. Diff antigen positive and toxin negative on 10/04 -MRSA screen negative on admission -Continue active patient cooling with cooling blankets for temperatures over 100.4 -ID consulted, all recommendations appreciated Lines: -Continue all peripheral lines GI Prophylaxis: Protonix DVT Prophylaxis: SCD's Disposition: Patient to have tracheostomy placed today (10/19) with plans for nursing home ventilation and possible placement in a nursing home care facility. Options for butter grader enteral feeding include PEG tube and Dobbhoff with recommendations from surgery for PEG tube placement pending. Meeting with patients family, case management, social workers, and medical team to discuss butter grader care facility placement planned for today. Patient with poor prognosis overall. Patient seen and case discussed in detail with attending, Dr. Hinojosa. - Date & Time Date: 10/19/16 Time: 10:13 <Otto Hinojosa - Last Filed: 10/19/16 14:07> CCU Objective - Vital Signs / Intake & Output Intake and Output (Last 8hrs): Intake & Output 10/18/16 10/19/16 10/19/16 22:59 06:59 14:59 Intake Total 4160 10 Output Total 2400 1350 Balance -2400 2810 10 Intake: IV 3600 Right Forearm 2400 Right Hand 1200 Tube Feeding 120 Blood Product 290 10 Apheresis Plts Acda Lr 0 10 2nd Con Unit [id number] Other 150 Output: Urine 1300 450 Urethral (Vyas) 1300 450 Stool 1100 900 - Medications Active Medications: Active Medications Generic Name Dose Route Start Last Admin Trade Name Giovanniq PRN Reason Stop Dose Admin Albuterol/Ipratropium 3 ml 10/05/16 08:00 10/19/16 13:28 Duoneb 3 Mg/0.5 Mg (3 Ml) Ud IH 3 ml [id number] TONI Administration Artificial Tears 1 gm 10/10/16 18:00 10/19/16 05:37 Artificial Tears Opht Oint OU 1 applic Q6 TONI Administration Folic Acid 1 mg 10/03/16 10:00 10/19/16 09:02 Folic Acid PO 1 mg DAILY TONI Administration Meropenem 500 mg/ Sodium 100 mls @ 100 mls/hr 10/14/16 07:06 10/19/16 09:20 Chloride IVPB 10/21/16 07:07 100 mls/hr Q12 TONI Administration Protocol Gentamicin Sulfate 270 mg/ 106.75 mls @ 106.75 mls/hr 10/15/16 10:00 11:42 Sodium Chloride IVPB 106.75 mls/hr ONCE TONI Administration Doxycycline Hyclate 100 mg/ 100 mls @ 100 mls/hr 10/16/16 10:00 10/19/16 12: 24 Sodium Chloride IVPB 10/23/16 10:01 100 mls/hr Q12 TONI Administration Protocol Sodium Chloride 1,000 mls @ 100 mls/hr 10/17/16 18:43 10/19/16 02:22 Sodium Chloride 0.9% IV 100 mls/hr .Q10H TONI Administration Micafungin Sodium 100 mg/ 100 mls @ 100 mls/hr 10/18/16 10:00 10/19/16 12:23 Sodium Chloride IV 10/25/16 10:01 100 mls/hr DAILY TONI Administration Protocol Dextrose 1,000 mls @ 200 mls/hr 10/18/16 20:42 10/19/16 07:28 Dextrose 5% In Water 1000 Ml IV 200 mls/hr .Q5H TONI Administration Lactulose 20 gm 10/11/16 10:00 10/19/16 09:02 Enulose PO 20 gm TID TONI Administration Lorazepam 2 mg 10/02/16 21:28 10/07/16 05:33 Ativan IVP 2 mg Q2H PRN Administration Agitation Protocol Metoclopramide HCl 10 mg 10/09/16 16:56 10/18/16 09:19 Reglan IVP 10 mg Q6H PRN Administration Other Midodrine 5 mg 10/09/16 10:00 10/19/16 09:02 Proamatine PO 5 mg TID TONI Administration Pantoprazole Sodium 40 mg 10/03/16 10:00 10/19/16 09:03 Protonix Inj IVP 40 mg DAILY TONI Administration Thiamine HCl 100 mg 10/03/16 10:00 10/19/16 09:02 Vitamin B1 Tab PO 100 mg DAILY TONI Administration Vitamin A 1 ea 10/03/16 10:00 10/19/16 10:40 Vitamin A & D Oint Ud Foilpak TOP 1 ea DAILY TONI Administration Vitamin B Complex/Vit C/Folic Acid 1 tab 10/03/16 08:00 10/19/16 09:04 Nephro-Mariann PO 1 tab 0800 TONI Administration - Patient Studies Lab Studies: Microbiology Studies 10/16/16 11:25 Blood Culture - Preliminary Blood-Venous NO GROWTH AFTER 3 DAYS 10/16/16 11:00 Blood Culture - Preliminary Blood-Venous NO GROWTH AFTER 3 DAYS 10/18/16 08:07 Urine Culture - Final Urine,Vyas No Growth (<1,000 CFU/ML) 10/14/16 08:00 Blood Culture - Final Blood NO GROWTH AFTER 5 DAYS Gram Stain - Final TEST NOT PERFORMED Lab Studies 10/19/16 10/19/16 10/19/16 Range/Units 13:00 07:43 07:30 WBC (4.5-11.0) 10^3/ul RBC (3.5-6.1) 10^6/uL Hgb (14.0-18.0) g/dL Hct (42.0-52.0) % MCV (80.0-105.0) fl MCH (25.0-35.0) pg MCHC (31.0-37.0) g/dl RDW (11.5-14.5) % Plt Count (120.0-450.0) 10^3/uL MPV (7.0-11.0) fl Gran % (50.0-68.0) % Lymph % (Auto) (22.0-35.0) % [place] % (Auto) (1.0-6.0) % Eos % (Auto) (1.5-5.0) % Baso % (Auto) (0.0-3.0) % Gran # (1.4-6.5) Lymph # (1.2-3.4) [place] # (0.1-0.6) Eos # (0.0-0.7) Baso # (0.0-2.0) K/mm3 pCO2 52 H 56 H (35-45) mm/Hg pO2 63.0 L 87.0 (80-100) mm/Hg HCO3 16.5 L 17.0 L (21-28) mmol/L ABG pH 7.11 L* 7.09 L* (7.35-7.45) ABG Total CO2 18.1 L 18.7 L (22-28) mmol.L ABG O2 Saturation 95.8 99.0 H (95-98) % ABG Base Excess -13.1 L -13.1 L (-2.0-3.0) mmol/L ABG Potassium 3.7 3.7 (3.6-5.2) mmol/L Glucose 110 123 H (75-110) mg/dl Lactate 1.1 1.1 (0.7-2.1) mmol/L Mechanical Rate 30 26 FiO2 40.0 60.0 % Tidal Volume 400 400 PEEP 5 5 Sodium 139.0 142.0 (132-148) mmol/L Potassium (3.6-5.0) mmol/L Chloride 113.0 H 115.0 H (98-107) mmol/L Carbon Dioxide (21-33) mmol/L Anion Gap (10-20) BUN (7-21) mg/dL Creatinine (0.5-1.4) mg/dL Est GFR ( Amer) Est GFR (Non-Af Amer) POC Glucose (mg/dL) 167 H (65-110) mg/dL Random Glucose (70-110) mg/dL Calcium (8.4-10.5) mg/dL Phosphorus (2.5-4.5) mg/dL Magnesium (1.7-2.2) mg/dL Total Bilirubin (0.2-1.3) mg/dL AST (17-59) U/L ALT (7-56) U/L Alkaline Phosphatase (38-126) U/L Total Protein (5.8-8.3) g/dL Albumin (3.0-4.8) g/dL Globulin gm/dL Albumin/Globulin Ratio (1.1-1.8) Arterial Blood Potassium 3.7 3.7 (3.6-5.2) mmol/L Beta-(1,3)-D-Glucan pg/mL B-(1,3)-D-Glucan Intrp 10/19/16 10/19/16 10/18/16 Range/Units 06:15 06:15 21:17 WBC 12.4 H D (4.5-11.0) 10^3/ul RBC 2.93 L (3.5-6.1) 10^6/uL Hgb 9.2 L (14.0-18.0) g/dL Hct 30.1 L (42.0-52.0) % MCV 102.7 (80.0-105.0) fl MCH 31.4 (25.0-35.0) pg MCHC 30.6 L (31.0-37.0) g/dl RDW 15.9 H (11.5-14.5) % Plt Count 112 L (120.0-450.0) 10^3/uL MPV 12.2 H (7.0-11.0) fl Gran % 80.1 H (50.0-68.0) % Lymph % (Auto) 16.5 L (22.0-35.0) % [place] % (Auto) 3.1 (1.0-6.0) % Eos % (Auto) 0.2 L (1.5-5.0) % Baso % (Auto) 0.1 (0.0-3.0) % Gran # 9.93 H (1.4-6.5) Lymph # 2.0 (1.2-3.4) [place] # 0.4 (0.1-0.6) Eos # 0.0 (0.0-0.7) Baso # 0.01 (0.0-2.0) K/mm3 pCO2 (35-45) mm/Hg pO2 (80-100) mm/Hg HCO3 (21-28) mmol/L ABG pH (7.35-7.45) ABG Total CO2 (22-28) mmol.L ABG O2 Saturation (95-98) % ABG Base Excess (-2.0-3.0) mmol/L ABG Potassium (3.6-5.2) mmol/L Glucose (75-110) mg/dl Lactate (0.7-2.1) mmol/L Mechanical Rate FiO2 % Tidal Volume PEEP Sodium 143 (132-148) mmol/L Potassium 4.1 (3.6-5.0) mmol/L Chloride 113 H (98-107) mmol/L Carbon Dioxide 20 L (21-33) mmol/L Anion Gap 14 (10-20) BUN 92 H (7-21) mg/dL Creatinine 2.4 H (0.5-1.4) mg/dL Est GFR ( Amer) 34 Est GFR (Non-Af Amer) 28 POC Glucose (mg/dL) 124 H (65-110) mg/dL Random Glucose 121 H (70-110) mg/dL Calcium 7.2 L (8.4-10.5) mg/dL Phosphorus 6.9 H (2.5-4.5) mg/dL Magnesium 1.2 L (1.7-2.2) mg/dL Total Bilirubin 1.8 H (0.2-1.3) mg/dL AST 87 H (17-59) U/L ALT 71 H (7-56) U/L Alkaline Phosphatase 91 (38-126) U/L Total Protein 5.7 L (5.8-8.3) g/dL Albumin 2.2 L (3.0-4.8) g/dL Globulin 3.5 gm/dL Albumin/Globulin Ratio 0.6 L (1.1-1.8) Arterial Blood Potassium (3.6-5.2) mmol/L Beta-(1,3)-D-Glucan pg/mL B-(1,3)-D-Glucan Intrp 10/18/16 10/18/16 10/18/16 Range/Units 16:15 11:27 08:25 WBC (4.5-11.0) 10^3/ul RBC (3.5-6.1) 10^6/uL Hgb (14.0-18.0) g/dL Hct (42.0-52.0) % MCV (80.0-105.0) fl MCH (25.0-35.0) pg MCHC (31.0-37.0) g/dl RDW (11.5-14.5) % Plt Count (120.0-450.0) 10^3/uL MPV (7.0-11.0) fl Gran % (50.0-68.0) % Lymph % (Auto) (22.0-35.0) % [place] % (Auto) (1.0-6.0) % Eos % (Auto) (1.5-5.0) % Baso % (Auto) (0.0-3.0) % Gran # (1.4-6.5) Lymph # (1.2-3.4) [place] # (0.1-0.6) Eos # (0.0-0.7) Baso # (0.0-2.0) K/mm3 pCO2 (35-45) mm/Hg pO2 (80-100) mm/Hg HCO3 (21-28) mmol/L ABG pH (7.35-7.45) ABG Total CO2 (22-28) mmol.L ABG O2 Saturation (95-98) % ABG Base Excess (-2.0-3.0) mmol/L ABG Potassium (3.6-5.2) mmol/L Glucose (75-110) mg/dl Lactate (0.7-2.1) mmol/L Mechanical Rate FiO2 % Tidal Volume PEEP Sodium (132-148) mmol/L Potassium (3.6-5.0) mmol/L Chloride (98-107) mmol/L Carbon Dioxide (21-33) mmol/L Anion Gap (10-20) BUN (7-21) mg/dL Creatinine (0.5-1.4) mg/dL Est GFR ( Amer) Est GFR (Non-Af Amer) POC Glucose (mg/dL) 147 H 132 H 119 H (65-110) mg/dL Random Glucose (70-110) mg/dL Calcium (8.4-10.5) mg/dL Phosphorus (2.5-4.5) mg/dL Magnesium (1.7-2.2) mg/dL Total Bilirubin (0.2-1.3) mg/dL AST (17-59) U/L ALT (7-56) U/L Alkaline Phosphatase (38-126) U/L Total Protein (5.8-8.3) g/dL Albumin (3.0-4.8) g/dL Globulin gm/dL Albumin/Globulin Ratio (1.1-1.8) Arterial Blood Potassium (3.6-5.2) mmol/L Beta-(1,3)-D-Glucan pg/mL B-(1,3)-D-Glucan Intrp 10/14/16 Range/Units 08:00 WBC (4.5-11.0) 10^3/ul RBC (3.5-6.1) 10^6/uL Hgb (14.0-18.0) g/dL Hct (42.0-52.0) % MCV (80.0-105.0) fl MCH (25.0-35.0) pg MCHC (31.0-37.0) g/dl RDW (11.5-14.5) % Plt Count (120.0-450.0) 10^3/uL MPV (7.0-11.0) fl Gran % (50.0-68.0) % Lymph % (Auto) (22.0-35.0) % [place] % (Auto) (1.0-6.0) % Eos % (Auto) (1.5-5.0) % Baso % (Auto) (0.0-3.0) % Gran # (1.4-6.5) Lymph # (1.2-3.4) [place] # (0.1-0.6) Eos # (0.0-0.7) Baso # (0.0-2.0) K/mm3 pCO2 (35-45) mm/Hg pO2 (80-100) mm/Hg HCO3 (21-28) mmol/L ABG pH (7.35-7.45) ABG Total CO2 (22-28) mmol.L ABG O2 Saturation (95-98) % ABG Base Excess (-2.0-3.0) mmol/L ABG Potassium (3.6-5.2) mmol/L Glucose (75-110) mg/dl Lactate (0.7-2.1) mmol/L Mechanical Rate FiO2 % Tidal Volume PEEP Sodium (132-148) mmol/L Potassium (3.6-5.0) mmol/L Chloride (98-107) mmol/L Carbon Dioxide (21-33) mmol/L Anion Gap (10-20) BUN (7-21) mg/dL Creatinine (0.5-1.4) mg/dL Est GFR ( Amer) Est GFR (Non-Af Amer) POC Glucose (mg/dL) (65-110) mg/dL Random Glucose (70-110) mg/dL Calcium (8.4-10.5) mg/dL Phosphorus (2.5-4.5) mg/dL Magnesium (1.7-2.2) mg/dL Total Bilirubin (0.2-1.3) mg/dL AST (17-59) U/L ALT (7-56) U/L Alkaline Phosphatase (38-126) U/L Total Protein (5.8-8.3) g/dL Albumin (3.0-4.8) g/dL Globulin gm/dL Albumin/Globulin Ratio (1.1-1.8) Arterial Blood Potassium (3.6-5.2) mmol/L Beta-(1,3)-D-Glucan >500 H pg/mL B-(1,3)-D-Glucan Intrp Positive H Laboratory Results - last 24 hr 10/14/16 10/18/16 10/18/16 08:00 08:25 11:27 WBC RBC Hgb Hct MCV MCH MCHC RDW Plt Count MPV Gran % Lymph % (Auto) [place] % (Auto) Eos % (Auto) Baso % (Auto) Gran # Lymph # [place] # Eos # Baso # pCO2 pO2 HCO3 ABG pH ABG Total CO2 ABG O2 Saturation ABG Base Excess ABG Potassium Glucose Lactate Mechanical Rate FiO2 Tidal Volume PEEP Sodium Potassium Chloride Carbon Dioxide Anion Gap BUN Creatinine Est GFR ( Amer) Est GFR (Non-Af Amer) POC Glucose (mg/dL) 119 H 132 H Random Glucose Calcium Phosphorus Magnesium Total Bilirubin AST ALT Alkaline Phosphatase Total Protein Albumin Globulin Albumin/Globulin Ratio Arterial Blood Potassium Beta-(1,3)-D-Glucan >500 H B-(1,3)-D-Glucan Intrp Positive H 10/18/16 10/18/16 10/19/16 16:15 21:17 06:15 WBC 12.4 H D RBC 2.93 L Hgb 9.2 L Hct 30.1 L MCV 102.7 MCH 31.4 MCHC 30.6 L RDW 15.9 H Plt Count 112 L MPV 12.2 H Gran % 80.1 H Lymph % (Auto) 16.5 L [place] % (Auto) 3.1 Eos % (Auto) 0.2 L Baso % (Auto) 0.1 Gran # 9.93 H Lymph # 2.0 [place] # 0.4 Eos # 0.0 Baso # 0.01 pCO2 pO2 HCO3 ABG pH ABG Total CO2 ABG O2 Saturation ABG Base Excess ABG Potassium Glucose Lactate Mechanical Rate FiO2 Tidal Volume PEEP Sodium Potassium Chloride Carbon Dioxide Anion Gap BUN Creatinine Est GFR ( Amer) Est GFR (Non-Af Amer) POC Glucose (mg/dL) 147 H 124 H Random Glucose Calcium Phosphorus Magnesium Total Bilirubin AST ALT Alkaline Phosphatase Total Protein Albumin Globulin Albumin/Globulin Ratio Arterial Blood Potassium Beta-(1,3)-D-Glucan B-(1,3)-D-Glucan Intrp 10/19/16 10/19/16 10/19/16 06:15 07:30 07:43 WBC RBC Hgb Hct MCV MCH MCHC RDW Plt Count MPV Gran % Lymph % (Auto) [place] % (Auto) Eos % (Auto) Baso % (Auto) Gran # Lymph # [place] # Eos # Baso # pCO2 56 H pO2 87.0 HCO3 17.0 L ABG pH 7.09 L* ABG Total CO2 18.7 L ABG O2 Saturation 99.0 H ABG Base Excess -13.1 L ABG Potassium 3.7 Glucose 123 H Lactate 1.1 Mechanical Rate 26 FiO2 60.0 Tidal Volume 400 PEEP 5 Sodium 143 142.0 Potassium 4.1 Chloride 113 H 115.0 H Carbon Dioxide 20 L Anion Gap 14 BUN 92 H Creatinine 2.4 H Est GFR ( Amer) 34 Est GFR (Non-Af Amer) 28 POC Glucose (mg/dL) 167 H Random Glucose 121 H Calcium 7.2 L Phosphorus 6.9 H Magnesium 1.2 L Total Bilirubin 1.8 H AST 87 H ALT 71 H Alkaline Phosphatase 91 Total Protein 5.7 L Albumin 2.2 L Globulin 3.5 Albumin/Globulin Ratio 0.6 L Arterial Blood Potassium 3.7 Beta-(1,3)-D-Glucan B-(1,3)-D-Glucan Intrp 10/19/16 13:00 WBC RBC Hgb Hct MCV MCH MCHC RDW Plt Count MPV Gran % Lymph % (Auto) [place] % (Auto) Eos % (Auto) Baso % (Auto) Gran # Lymph # [place] # Eos # Baso # pCO2 52 H pO2 63.0 L HCO3 16.5 L ABG pH 7.11 L* ABG Total CO2 18.1 L ABG O2 Saturation 95.8 ABG Base Excess -13.1 L ABG Potassium 3.7 Glucose 110 Lactate 1.1 Mechanical Rate 30 FiO2 40.0 Tidal Volume 400 PEEP 5 Sodium 139.0 Potassium Chloride 113.0 H Carbon Dioxide Anion Gap BUN Creatinine Est GFR ( Amer) Est GFR (Non-Af Amer) POC Glucose (mg/dL) Random Glucose Calcium Phosphorus Magnesium Total Bilirubin AST ALT Alkaline Phosphatase Total Protein Albumin Globulin Albumin/Globulin Ratio Arterial Blood Potassium 3.7 Beta-(1,3)-D-Glucan B-(1,3)-D-Glucan Intrp Attending/Attestation - Attestation I have personally seen and examined this patient.: Yes I have fully participated in the care of the patient.: Yes I have reviewed all pertinent clinical information: Yes Notes (Text): 10/19/16 14:04 56 yo with VDRF, now s/p trach, Pseudomonas tracheobronchtits, atelectasis, on Meropenem and Genta, ID service is following. continue to wean. worsening infiltrate vs atelectasis RLL. resolved fungemia, to complete 14 days course of micafungin. dvt/gi prophylaxis ccm time 40 min
[2016-10-19 10:35] LABS: ARTERIAL BLOOD GAS PH 7.09 (7.35-7.45)
[2016-10-19] MEDS: Vitamins A & D Oint UD Foilpak TOP SCH (10:40)
--- NOTE | 2016-10-19 11:32 | CP.PCM.PN ---
Subjective - Date & Time of Evaluation Date of Evaluation: 10/19/16 Time of Evaluation: 07:00 - Subjective Subjective: SURGERY NOTE FOR DR. JOHNSON 56M with hx of liver cirrhosis, ascites and encephalopathy. Non verbal, intubated and feeding tube in place. Objective - Vital Signs/Intake and Output Vital Signs (last 24 hours): Temp Pulse Resp BP Pulse Ox 99.1 F 100 H 30 H 107/64 95 10/19/16 08:28 10/19/16 08:28 10/19/16 08:28 10/19/16 08:28 10/18/16 20:00 Intake and Output: 10/19/16 10/19/16 06:59 18:59 Intake Total 4160 10 Output Total 1350 Balance 2810 10 - Medications Medications: Current Medications Albuterol/Ipratropium (Duoneb 3 Mg/0.5 Mg (3 Ml) Ud) 3 ml IH [id number] [facility] Last Admin: 10/19/16 07:27 Dose: 3 ml Artificial Tears (Artificial Tears Opht Oint) 1 gm OU Q6 [facility] Last Admin: 10/19/16 05:37 Dose: 1 applic Folic Acid (Folic Acid) 1 mg PO DAILY [facility] Last Admin: 10/19/16 09:02 Dose: 1 mg Meropenem 500 mg/ Sodium (Chloride) 100 mls @ 100 mls/hr IVPB Q12 [facility] PRN Reason: Protocol Stop: 10/21/16 07:07 Last Admin: 10/19/16 09:20 Dose: 100 mls/hr Gentamicin Sulfate 270 mg/ (Sodium Chloride) 106.75 mls @ 106.75 mls/hr IVPB ONCE [facility] Last Admin: 10/17/16 11:42 Dose: 106.75 mls/hr Doxycycline Hyclate 100 mg/ (Sodium Chloride) 100 mls @ 100 mls/hr IVPB Q12 [facility] PRN Reason: Protocol Stop: 10/23/16 10:01 Last Admin: 10/18/16 21:40 Dose: 100 mls/hr Sodium Chloride (Sodium Chloride 0.9%) 1,000 mls @ 100 mls/hr IV .Q10H [facility] Last Admin: 10/19/16 02:22 Dose: 100 mls/hr Micafungin Sodium 100 mg/ (Sodium Chloride) 100 mls @ 100 mls/hr IV DAILY [facility] PRN Reason: Protocol Stop: 10/25/16 10:01 Last Admin: 10/18/16 11:07 Dose: 100 mls/hr Dextrose (Dextrose 5% In Water 1000 Ml) 1,000 mls @ 200 mls/hr IV .Q5H [facility] Last Admin: 10/19/16 07:28 Dose: 200 mls/hr Lactulose (Enulose) 20 gm PO TID [facility] Last Admin: 10/19/16 09:02 Dose: 20 gm Lorazepam (Ativan) 2 mg IVP Q2H PRN; Protocol PRN Reason: Agitation Last Admin: 10/07/16 05:33 Dose: 2 mg Metoclopramide HCl (Reglan) 10 mg IVP Q6H PRN PRN Reason: Other Last Admin: 10/18/16 09:19 Dose: 10 mg Midodrine (Proamatine) 5 mg PO TID [facility] Last Admin: 10/19/16 09:02 Dose: 5 mg Pantoprazole Sodium (Protonix Inj) 40 mg IVP DAILY [facility] Last Admin: 10/19/16 09:03 Dose: 40 mg Thiamine HCl (Vitamin B1 Tab) 100 mg PO DAILY [facility] Last Admin: 10/19/16 09:02 Dose: 100 mg Vitamin A (Vitamin A & D Oint Ud Foilpak) 1 ea TOP DAILY [facility] Last Admin: 10/18/16 09:17 Dose: 1 ea Vitamin B Complex/Vit C/Folic Acid (Nephro-Mariann) 1 tab PO 0800 [facility] Last Admin: 10/19/16 09:04 Dose: 1 tab - Labs Labs: 10/19/16 06:15 10/19/16 06:15 PT 14.5 Seconds (9.9-11.8) H 10/17/16 05:32 INR 1.34 (0.93-1.08) H 10/17/16 05:32 APTT 33.4 Seconds (23.7-30.8) H 10/17/16 05:32 - Constitutional Appears: Other (intubated, nonverbal, does not follow command) - Cardiovascular Exam Cardiovascular Exam: REGULAR RHYTHM, +S1, +S2 - GI/Abdominal Exam GI & Abdominal Exam: Distended, Soft. absent: Firm, Guarding, Rigid, Tenderness - Neurological Exam Neurological Exam: Altered Assessment and Plan - Assessment and Plan (Free Text) Assessment: 56M with end stage liver disease with encephalopathy, s/p Tracheostomy per ENT Plan: - Plan for Gastrostomy tube Monday 10/23 - Pre-Op Sunday Further recs discuss with Dr. Yg Amos, PGY2
--- NOTE | 2016-10-19 11:40 | CP.PCM.PN ---
<Justo Torres - Last Filed: 10/19/16 11:42> Subjective - Date & Time of Evaluation Date of Evaluation: 10/19/16 Time of Evaluation: 07:37 - Subjective Subjective: Patient seen and examined at bedside. Patient's vent settings were changes from 40% O2 to 60% concentration after persistent O2 saturations dropped into the 80's overnight per nursing. The patient is expected to undergo a Trachetomy today. ROS unobtainable due to patient's current clinical picture. Objective - Vital Signs/Intake and Output Vital Signs (last 24 hours): Temp Pulse Resp BP Pulse Ox 99.1 F 100 H 30 H 107/64 95 10/19/16 08:28 10/19/16 08:28 10/19/16 08:28 10/19/16 08:28 10/18/16 20:00 Intake and Output: 10/19/16 10/19/16 06:59 18:59 Intake Total 4160 10 Output Total 1350 Balance 2810 10 - Medications Medications: Current Medications Albuterol/Ipratropium (Duoneb 3 Mg/0.5 Mg (3 Ml) Ud) 3 ml IH [id number] [facility] Last Admin: 10/19/16 07:27 Dose: 3 ml Artificial Tears (Artificial Tears Opht Oint) 1 gm OU Q6 [facility] Last Admin: 10/19/16 05:37 Dose: 1 applic Folic Acid (Folic Acid) 1 mg PO DAILY [facility] Last Admin: 10/19/16 09:02 Dose: 1 mg Meropenem 500 mg/ Sodium (Chloride) 100 mls @ 100 mls/hr IVPB Q12 [facility] PRN Reason: Protocol Stop: 10/21/16 07:07 Last Admin: 10/19/16 09:20 Dose: 100 mls/hr Gentamicin Sulfate 270 mg/ (Sodium Chloride) 106.75 mls @ 106.75 mls/hr IVPB ONCE [facility] Last Admin: 10/17/16 11:42 Dose: 106.75 mls/hr Doxycycline Hyclate 100 mg/ (Sodium Chloride) 100 mls @ 100 mls/hr IVPB Q12 [facility] PRN Reason: Protocol Stop: 10/23/16 10:01 Last Admin: 10/18/16 21:40 Dose: 100 mls/hr Sodium Chloride (Sodium Chloride 0.9%) 1,000 mls @ 100 mls/hr IV .Q10H [facility] Last Admin: 10/19/16 02:22 Dose: 100 mls/hr Micafungin Sodium 100 mg/ (Sodium Chloride) 100 mls @ 100 mls/hr IV DAILY [facility] PRN Reason: Protocol Stop: 10/25/16 10:01 Last Admin: 10/18/16 11:07 Dose: 100 mls/hr Dextrose (Dextrose 5% In Water 1000 Ml) 1,000 mls @ 200 mls/hr IV .Q5H [facility] Last Admin: 10/19/16 07:28 Dose: 200 mls/hr Lactulose (Enulose) 20 gm PO TID [facility] Last Admin: 10/19/16 09:02 Dose: 20 gm Lorazepam (Ativan) 2 mg IVP Q2H PRN; Protocol PRN Reason: Agitation Last Admin: 10/07/16 05:33 Dose: 2 mg Metoclopramide HCl (Reglan) 10 mg IVP Q6H PRN PRN Reason: Other Last Admin: 10/18/16 09:19 Dose: 10 mg Midodrine (Proamatine) 5 mg PO TID [facility] Last Admin: 10/19/16 09:02 Dose: 5 mg Pantoprazole Sodium (Protonix Inj) 40 mg IVP DAILY [facility] Last Admin: 10/19/16 09:03 Dose: 40 mg Thiamine HCl (Vitamin B1 Tab) 100 mg PO DAILY [facility] Last Admin: 10/19/16 09:02 Dose: 100 mg Vitamin A (Vitamin A & D Oint Ud Foilpak) 1 ea TOP DAILY [facility] Last Admin: 10/18/16 09:17 Dose: 1 ea Vitamin B Complex/Vit C/Folic Acid (Nephro-Mariann) 1 tab PO 0800 [facility] Last Admin: 10/19/16 09:04 Dose: 1 tab - Labs Labs: 10/19/16 06:15 10/19/16 06:15 PT 14.5 Seconds (9.9-11.8) H 10/17/16 05:32 INR 1.34 (0.93-1.08) H 10/17/16 05:32 APTT 33.4 Seconds (23.7-30.8) H 10/17/16 05:32 - Head Exam Head Exam: ATRAUMATIC, NORMAL INSPECTION, NORMOCEPHALIC - Eye Exam Eye Exam: EOMI, Normal appearance, PERRL. absent: Periorbital tenderness Pupil Exam: NORMAL ACCOMODATION, PERRL - ENT Exam ENT Exam: Mucous Membranes Moist - Neck Exam Neck Exam: Normal Inspection - Respiratory Exam Respiratory Exam: Clear to Ausculation Bilateral, NORMAL BREATHING PATTERN. absent: Rhonchi, Stridor - Cardiovascular Exam Cardiovascular Exam: REGULAR RHYTHM, RRR, +S1, +S2. absent: Rubs - GI/Abdominal Exam GI & Abdominal Exam: Firm, Normal Bowel Sounds. absent: Guarding, Rigid - Back Exam Additional comments: bed ulcers present per nursing staff - Neurological Exam Neurological Exam: Altered - Skin Skin Exam: Mottled Assessment and Plan - Assessment and Plan (Free Text) Assessment: 56 year old male with an initial presentation of AMS in the setting of persistent hypokalemia and alcohol withdrawal, which resolved. Patient was then intubated after he was found to be in hypercapnic respiratory failure and subsequently became hemodynamically unstable requiring dual vasopressor support. His presentation is consistent with distributive shock likely from either acute decompensated chronic liver failure or sepsis from C. Diff colitis , with multiorgan dysfunction syndrome including renal failure, encephalopathy and respiratory failure. Patient is no longer requiring vasopressin or levophed for hemodynamic support but is on midodrine. Patient is currently unresponsive to verbal or tactile stimuli off of sedation. Patient is has been transitioned from PRVC to PS/CPAP Plan: Pulmonary: Hypercapnic Respiratory Failure -Patient intubated on 10/05. Today: FiO2= 60%, RR=26, PEEP+5, and Tidal Volume + 400 ml, O2 saturation+97% -ABG: pCO2+43, pO2+97, pH+7.27 -Patient hypotension slightly (111/71) and remains off pressors. -Cardio following -CXR shows no active pulmonary disease. -Continue to monitor vital signs. -Continue Duonebs 3ml [id number] HRESP for wheezing symptoms. -Expected to have a Trach placed today. Family meeting is scheduled for today for the plan to transition to LTEC. Renal: Acute renal failure most likely secondary to glomerulonephritis -BUN 92(down from 97) and Creatinine is 2.4(down from 2.5). -Urine total protein-897 and Urine Microalbumin >950. -Nephrology consult note appreciated. -No acute indications for HD at this time. Urine output remains steady. -Nephrology consult note appreciate- Hematology: Thrombocytopenia -Plt count now 112(up from 97) s/p 4 units of Platelets transfused. Continue to monitor plt count and consider another transfusion if patient drops below 20. -Patient currently has no active bleeds. Monitor for bleeding. EtOh Withdrawal -Continue Ativan 2mg IVP Q2H PRN for alcohol withdrawal symptoms. -Continue Thiamine, Folic acid and MV supplementation Ascites -s/p ascitic fluid removed on 10/05. -culture growth negative after 6 days. -MELDS score of 20: 19.3% Mortality risk in 3 month time period. GI: Hepatic encephalopathy -Continue Rifaxamin, Lactulose -Rectal tube in place and currently draining 800-900 cc per shift per nursing staff. -Continue with Vital AF tube held today for scheduled gastromy. Anemia -Stool occult blood positive on 10/05. -Hgb is 9.2(up from 8.3) and Hct is 30.1(up from 26.5) Patient is s/p 3 units leukocyte reduced PRBC's. Continue to monitor H/H levels with serial CBC's. Consider Transfusion if Hgb falls below 7. Sepsis/Fungemia -Grew Kamille Albicans -Sputum culture grew Pseudomonas [place]. -Continue Micafungin (renal dosing) -Patient continues to spike fevers. Started Zyvox and Doxycycline. Will continue to monitor closely. -Continue Merrem, Vancomycin C Diff infection. -Continue Vancomycin -Repeat stool sample. Hypokalemia -Potassium today 4.1. Will continue to replete as needed. Will continue to monitor electrolyte levels with serial cmp's. GI ppx -Continue Protonix DVT ppx. <Zoe GALLEGOS,Jacob - Last Filed: 10/20/16 17:50> Objective - Vital Signs/Intake and Output Vital Signs (last 24 hours): Temp Pulse Resp BP Pulse Ox 97.7 F 94 H 32 H 100/43 L 100 10/20/16 05:00 10/20/16 05:00 10/20/16 00:00 10/20/16 05:00 10/20/16 05:00 - Medications Medications: Current Medications Amikacin Sulfate (Amikacin 500 Mg/2ml Inj) 500 mg IH [id number] [facility] Last Admin: 10/20/16 08:14 Dose: 500 mg Artificial Tears (Artificial Tears Opht Oint) 1 gm OU Q6 [facility] Last Admin: 10/20/16 17:21 Dose: 1 applic Folic Acid (Folic Acid) 1 mg PO DAILY [facility] Last Admin: 10/20/16 09:11 Dose: 1 mg Meropenem 500 mg/ Sodium (Chloride) 100 mls @ 100 mls/hr IVPB Q12 [facility] PRN Reason: Protocol Stop: 10/21/16 07:07 Last Admin: 10/20/16 09:12 Dose: 100 mls/hr Gentamicin Sulfate 270 mg/ (Sodium Chloride) 106.75 mls @ 106.75 mls/hr IVPB ONCE [facility] Last Admin: 10/17/16 11:42 Dose: 106.75 mls/hr Doxycycline Hyclate 100 mg/ (Sodium Chloride) 100 mls @ 100 mls/hr IVPB Q12 [facility]ONI PRN Reason: Protocol Stop: 10/23/16 10:01 Last Admin: 10/20/16 09:15 Dose: 100 mls/hr Micafungin Sodium 100 mg/ (Sodium Chloride) 100 mls @ 100 mls/hr IV DAILY [facility] PRN Reason: Protocol Stop: 10/25/16 10:01 Last Admin: 10/20/16 09:15 Dose: 100 mls/hr Sodium Bicarbonate 150 meq/ (Dextrose) 1,150 mls @ 100 mls/hr IV .[id number] [facility] Last Admin: 10/20/16 13:30 Dose: 100 mls/hr Lactulose (Enulose) 20 gm PO TID [facility] Last Admin: 10/20/16 17:20 Dose: Not Given Metoclopramide HCl (Reglan) 10 mg IVP Q6H PRN PRN Reason: Other Last Admin: 10/18/16 09:19 Dose: 10 mg Midodrine (Proamatine) 5 mg PO TID [facility] Last Admin: 10/20/16 17:20 Dose: Not Given Pantoprazole Sodium (Protonix Inj) 40 mg IVP DAILY [facility] Last Admin: 10/20/16 09:12 Dose: 40 mg Thiamine HCl (Vitamin B1 Tab) 100 mg PO DAILY [facility] Last Admin: 10/20/16 09:12 Dose: 100 mg Vitamin A (Vitamin A & D Oint Ud Foilpak) 1 ea TOP DAILY [facility] Last Admin: 09/15/17 09:12 Dose: 1 ea Vitamin B Complex/Vit C/Folic Acid (Nephro-Mariann) 1 tab PO 0800 [facility] Last Admin: 10/20/16 09:00 Dose: 1 tab - Labs Labs: 10/20/16 06:30 10/20/16 06:30 PT 16.7 Seconds (9.9-11.8) H 10/20/16 09:35 INR 1.55 (0.93-1.08) H 10/20/16 09:35 APTT 36.5 Seconds (23.7-30.8) H 10/20/16 09:35 Attending/Attestation - Attestation I have personally seen and examined this patient.: Yes I have fully participated in the care of the patient.: Yes I have reviewed all pertinent clinical information, including history, physical exam and plan: Yes Notes (Text): 10/20/16 17:45 Patient was seen and examined with medical doctor nuclear medicine. 56 M with H chronic ETOH abuse, cirrhosis, Hep C, was admitted with alcohol withdrawal, severe hypokalemia K 1.7, Fever 104 F.Patient was intubated and was on pressor.Patient also developed acute renal failure. Patient is still intubate.he is off pressor, renal function are stable since 24 hour. He is on antibiotics as per ID for Sepsis.He is scheduled for Tracheotomy today. Prognosis is guarded.
--- NOTE | 2016-10-19 11:54 | PN ---
DATE: 10/19/2016 SUBJECTIVE: The patient is seen in ICU earlier this morning on 128, bed 4. The patient remains on a ventilator in poor condition. The patient has had low grade fevers. PHYSICAL EXAMINATION: VITAL SIGNS: Temperature is 99, blood pressure 113/60, respiratory rate on the vent, and heart rate of 102. HEENT: Unremarkable. NECK: Supple. LUNGS: Decreased breath sounds. HEART: Normal S1 and S2. ABDOMEN: Soft and nontender. LABORATORY DATA: White count of 12,400, hemoglobin of 9, and platelets 112. Chemistries reveals BUN of 92 and creatinine of 2.4. Urinalysis is noted. Microbiology reveals pseudomonas aeruginosa in the sputum culture. Blood cultures are negative. Urine cultures are negative . The sensitivity of pseudomonas is noted to be pansensitive. ASSESSMENT AND PLAN: He is a 56-year-old male with severe sepsis, ventilator dependent respiratory failure, and respiratory acidosis with acute renal failure. The patient developed tom albicans fungemia on top of colitis with spontaneous bacterial peritonitis in the setting of liver cirrhosis and alcohol abuse, had paracentesis now with pseudomonas healthcare-associated pneumonia and chronic alcohol abuse, and liver cirrhosis, esophageal varices, on day #15 of meropenem and day #5 of doxycycline. The patient is on p.o. vancomycin and the patient is on day #12 of Mycamine. The patient is scheduled for tracheostomy today and overall prognosis is quite poor to this patient with multiple organ failure for tracheostomy today. The patient is also on doxycycline. Prognosis is poor. Nehemiah Aguilar MD
[2016-10-19] MEDS: Micafungin 100 MG in Sodium Chloride 0.9% 100 ML IV SCH (12:23)
[2016-10-19 13:15] LABS: ABG MECHANICAL RATE 30; ARTERIAL BLOOD GAS HCO3 16.5 mmol/L (21-28); ATERIAL BLOOD GAS PEEP 5
[2016-10-19 13:47] LABS: ARTERIAL BLOOD GAS PH 7.11 (7.35-7.45)
--- NOTE | 2016-10-19 16:30 | RAD ---
HISTORY: Dobbhoff COMPARISON: No prior. FINDINGS: BOWEL: Normal. No obstruction. No free air. BONES: Normal. OTHER FINDINGS: None. IMPRESSION: The Dobhoff tube is not visible on the abdominal film.
--- NOTE | 2016-10-19 16:33 | RAD ---
HISTORY: Dobbhoff placement COMPARISON: 10/19/2016 FINDINGS: LUNGS: Bilateral infiltrates right greater than left in the lower lobes PLEURA: No significant pleural effusion identified, no pneumothorax apparent. CARDIOVASCULAR: Normal. OSSEOUS STRUCTURES: No significant abnormalities. VISUALIZED UPPER ABDOMEN: Normal. OTHER FINDINGS: None. IMPRESSION: The feeding tube is looped 180 degrees in the upper esophagus. The tip of the catheter is not visualize. The catheter should be removed and repositioned
--- NOTE | 2016-10-19 16:47 | RAD ---
PROCEDURE: Portable chest HISTORY: Dobbhoff placement COMPARISON: Earlier study TECHNIQUE: FINDINGS: IMPRESSION: The Dobhoff tube is now in satisfactory position in the region of the body of stomach
[2016-10-19 18:16] LABS: ARTERIAL BLOOD GAS HCO3 15.3 mmol/L (21-28); ARTERIAL BLOOD GAS O2 CAPACITY 10.2 mL/dl (16-24); ARTERIAL BLOOD GAS O2 CONTENT 10.2 ML/dl (15-23); ARTERIAL BLOOD HGB O2 SAT 96.8 % (95.0-98.0); CARBOXYHEMOGLOBIN 2.6 % (0.5-1.5); HHB -0.1 % (0-5); METHEMOGLOBIN 0.7 % (0.0-3.0)
[2016-10-19 18:20] LABS: ARTERIAL BLOOD GAS PH 7.15 (7.35-7.45)
--- NOTE | 2016-10-19 19:35 | CON ---
Examined the patient with the resident. I reviewed the note at great length. I examined the patient also by myself. Discussed the plan with the resident and agreed with the history and physical and the plan. PLAN: The plan will be to do a gastrostomy, making extra precautions to prevent leak which is quite frankly almost inevitable, but that is the only way to feed him. In the facility, we will go that route. He is high risk because of his ascites, liver dysfunction and varices. We will discuss with the family. Adrian Ronquillo MD
[2016-10-19] MEDS: AMIKACIN 500 MG/2 ML IH SCH (20:30)
[2016-10-19] MEDS: Sodium Chloride 0.45% 1,000 ML IV SCH (21:10)
--- NOTE | 2016-10-19 21:32 | CP.PCM.PN ---
Objective - Vital Signs/Intake and Output Vital Signs (last 24 hours): Temp Pulse Resp BP Pulse Ox 97.5 F L 87 30 H 99/57 L 98 10/19/16 19:00 10/19/16 19:00 10/19/16 08:28 10/19/16 19:00 10/19/16 19:00 Intake and Output: 10/19/16 10/20/16 18:59 06:59 Intake Total 1710 Output Total 700 Balance 1010 - Medications Medications: Current Medications Albuterol/Ipratropium (Duoneb 3 Mg/0.5 Mg (3 Ml) Ud) 3 ml IH [id number] TONI Last Admin: 10/19/16 19:29 Dose: 3 ml Amikacin Sulfate (Amikacin 500 Mg/2ml Inj) 500 mg IH [id number] TONI Artificial Tears (Artificial Tears Opht Oint) 1 gm OU Q6 TONI Last Admin: 10/19/16 17:52 Dose: 1 applic Folic Acid (Folic Acid) 1 mg PO DAILY [facility] Last Admin: 10/19/16 09:02 Dose: 1 mg Meropenem 500 mg/ Sodium (Chloride) 100 mls @ 100 mls/hr IVPB Q12 TONI PRN Reason: Protocol Stop: 10/21/16 07:07 Last Admin: 10/19/16 21:08 Dose: 100 mls/hr Gentamicin Sulfate 270 mg/ (Sodium Chloride) 106.75 mls @ 106.75 mls/hr IVPB ONCE TONI Last Admin: 10/17/16 11:42 Dose: 106.75 mls/hr Doxycycline Hyclate 100 mg/ (Sodium Chloride) 100 mls @ 100 mls/hr IVPB Q12 TONI PRN Reason: Protocol Stop: 10/23/16 10:01 Last Admin: 10/19/16 21:09 Dose: 100 mls/hr Micafungin Sodium 100 mg/ (Sodium Chloride) 100 mls @ 100 mls/hr IV DAILY TONI PRN Reason: Protocol Stop: 10/25/16 10:01 Last Admin: 10/19/16 12:23 Dose: 100 mls/hr Sodium Chloride (Sodium Chloride 0.45%) 1,000 mls @ 100 mls/hr IV .Q10H TONI Last Admin: 10/19/16 21:10 Dose: 100 mls/hr Lactulose (Enulose) 20 gm PO TID [facility] Last Admin: 10/19/16 21:08 Dose: 20 gm Metoclopramide HCl (Reglan) 10 mg IVP Q6H PRN PRN Reason: Other Last Admin: 10/18/16 09:19 Dose: 10 mg Midodrine (Proamatine) 5 mg PO TID [facility] Last Admin: 10/19/16 21:08 Dose: 5 mg Pantoprazole Sodium (Protonix Inj) 40 mg IVP DAILY [facility] Last Admin: 10/19/16 09:03 Dose: 40 mg Thiamine HCl (Vitamin B1 Tab) 100 mg PO DAILY [facility] Last Admin: 10/19/16 09:02 Dose: 100 mg Vitamin A (Vitamin A & D Oint Ud Foilpak) 1 ea TOP DAILY [facility] Last Admin: 10/19/16 10:40 Dose: 1 ea Vitamin B Complex/Vit C/Folic Acid (Nephro-Mariann) 1 tab PO 0800 [facility] Last Admin: 10/19/16 09:04 Dose: 1 tab - Labs Labs: 10/19/16 06:15 10/19/16 06:15 PT 14.5 Seconds (9.9-11.8) H 10/17/16 05:32 INR 1.34 (0.93-1.08) H 10/17/16 05:32 APTT 33.4 Seconds (23.7-30.8) H 10/17/16 05:32 Assessment and Plan (1) Acute renal failure Status: Acute (2) Acute hypercapnic respiratory failure Status: Acute (3) Hypokalemia Status: Acute (4) Hypocalcemia Status: Resolved (5) SIRS (systemic inflammatory response syndrome) Status: Acute (6) Hypernatremia Status: Acute
--- NOTE | 2016-10-20 00:18 | OP ---
PROCEDURE DATE: 10/19/2016 PREOPERATIVE DIAGNOSIS: Ventilator-dependent respiratory failure. POSTOPERATIVE DIAGNOSIS: Ventilator-dependent respiratory failure. PROCEDURE PERFORMED: Tracheotomy and bronchoscopy. SURGEON: Garth Thomas DO UNDER[employer]ITING [employer]ERKS SUPERVISOR: Marifer Anthony DO TYPE OF ANESTHESIA: General endotracheal. ANESTHESIA ADMINISTERED BY: Kylee Osorio MD FINDINGS: Vent-dependent respiratory failure, normal trachea to ole. IV FLUID INTAKE: Crystalloids. ESTIMATED BLOOD LOSS: 10 mL. COMPLICATIONS: None. CONDITION: Stable back to the ICU. SPECIMEN: None. HISTORY OF PRESENT ILLNESS: This is a 56-year-old male with multiple medical problems including history of alcohol abuse, hepatitis C, liver disease, kidney disease, and hepatic encephalopathy, who has been intubated in the ICU for the past 2 weeks and has been unable to come off the ventilator. He presents today for tracheotomy for ventilator-dependent respiratory failure. Preoperatively, the patient's family signed consent, which was witnessed and placed in the chart. Benefits and risks of the procedure were discussed with the patient. DESCRIPTION OF PROCEDURE: On 10/19/2016, the patient was brought into the operating room and placed supine on the operating room table. General anesthesia was induced and then a time-out called confirming the patient and procedure. The patient was then prepped and draped in the sterile fashion. The neck was palpated and then 1% Marcaine with 1:100,000 epinephrine was injected into the neck. Afterwards, a horizontal incision was made two fingerbreadths above the sternal notch and dissection was carried down into the neck to the level of the strap muscles ensuring hemostasis along the way and tying any vessels with 2-0 silk. The dissection was performed using monopolar Bovie and hemostat. The strap muscles were then divided and retracted laterally. used to retract the strap muscles laterally until the thyroid came into view. The thyroid isthmus was divided with monopolar Bovie and in addition tied with 2-0 silk ties. At this point, the trachea was visualized. An 11-blade was used to make a horizontal incision in between the second and third tracheal ring. Also made 2 vertical incisions to make a small flap out of the tracheal ring, which was retracted outwards. Trousseau dilator was used to dilate the opening. Previously tested #8 cuffed Shiley was passed with an obturator into the trachea. The obturator was removed and inner cannula was replaced. The tracheostomy was connected to the anesthesia circuit until end tidal CO2 is identified. At this point, the tracheostomy was secured with four 2-0 silk sutures and an umbilical tie. At this point, it was noted that the patient's peak pressures were in the 40s. The patient was suctioned out several times with clear secretions being suctioned out, however, pressures remained in the 40s, therefore, we decided to go ahead and proceed with a bronchoscopy to evaluate the tracheal lumen. The Olympus bronchoscope was inserted through the trachea and brought down to the ole. Normal tracheal lumen was identified with no mucus plugs or abnormalities noted in the trachea all the way to the ole. The bronchoscope was then removed. Care was then transferred back to the anesthesia team, who transferred the patient safely and stably back to the intensive care unit. Garth Thomas DO
[2016-10-20] MEDS: Mineral Oil/Petrolatum Opht Oint(3.5 gm) OU SCH ×4 (00:57→17:21)
[2016-10-20] MEDS: Albuterol-Ipratrop 3 mg / 0.5 (3 ml) UD IH SCH ×2 (01:19→07:28)
[2016-10-20] MEDS: Sodium Chloride 0.45% 1,000 ML IV SCH (05:23)
[2016-10-20 07:37] LABS: BASO # 0.01 K/mm3 (0.0-2.0); BASO % 0.2 % (0.0-3.0); EOS % 0.2 % (1.5-5.0); GRAN # 4.52 (1.4-6.5); GRAN % 74.4 % (50.0-68.0); LYMPH # 1.5 (1.2-3.4); LYMPH % 24.4 % (22.0-35.0); MEAN CELL VOLUME 99.2 fl (80.0-105.0); MEAN CORPUSCULAR HEMOGLOBIN 32.1 pg (25.0-35.0); MEAN CORPUSCULAR HGB CONC 32.3 g/dl (31.0-37.0); MEAN PLATELET VOLUME 11.1 fl (7.0-11.0); MONO # 0.1 (0.1-0.6); MONO % 0.8 % (1.0-6.0); RED CELL DISTRIBUTION WIDTH 15.7 % (11.5-14.5); WHITE BLOOD COUNT 6.1 10^3/ul (4.5-11.0)
[2016-10-20 08:04] LABS: ALB/GLOB RATIO 0.6 (1.1-1.8); BILIRUBIN,TOTAL 1.8 mg/dL (0.2-1.3); CALCIUM 7.2 mg/dL (8.4-10.5); MAGNESIUM 1.4 mg/dL (1.7-2.2); PHOSPHOROUS 6.8 mg/dL (2.5-4.5); POTASSIUM 3.5 mmol/L (3.6-5.0)
[2016-10-20 08:05] LABS: HEMATOCRIT 23.5 % (42.0-52.0)
[2016-10-20] MEDS: AMIKACIN 500 MG/2 ML IH SCH ×2 (08:14→21:00)
--- NOTE | 2016-10-20 08:46 | CP.PCM.PN ---
Subjective - Date & Time of Evaluation Date of Evaluation: 10/20/16 Time of Evaluation: 08:43 - Subjective Subjective: General Surgery Consult PT S&E at bedside. Patient had NAEON. Patient had trach placed yesterday. Patient is a poor historian. Objective - Vital Signs/Intake and Output Vital Signs (last 24 hours): Temp Pulse Resp BP Pulse Ox 97.7 F 94 H 32 H 100/43 L 100 10/20/16 05:00 10/20/16 05:00 10/20/16 00:00 10/20/16 05:00 10/20/16 05:00 - Medications Medications: Current Medications Amikacin Sulfate (Amikacin 500 Mg/2ml Inj) 500 mg IH [id number] [facility] Last Admin: 10/20/16 08:14 Dose: 500 mg Artificial Tears (Artificial Tears Opht Oint) 1 gm OU Q6 [facility] Last Admin: 10/20/16 05:20 Dose: 1 applic Folic Acid (Folic Acid) 1 mg PO DAILY [facility] Last Admin: 10/19/16 09:02 Dose: 1 mg Meropenem 500 mg/ Sodium (Chloride) 100 mls @ 100 mls/hr IVPB Q12 TONI PRN Reason: Protocol Stop: 10/21/16 07:07 Last Admin: 10/19/16 21:08 Dose: 100 mls/hr Gentamicin Sulfate 270 mg/ (Sodium Chloride) 106.75 mls @ 106.75 mls/hr IVPB ONCE [facility] Last Admin: 10/17/16 11:42 Dose: 106.75 mls/hr Doxycycline Hyclate 100 mg/ (Sodium Chloride) 100 mls @ 100 mls/hr IVPB Q12 TONI PRN Reason: Protocol Stop: 10/23/16 10:01 Last Admin: 10/19/16 21:09 Dose: 100 mls/hr Micafungin Sodium 100 mg/ (Sodium Chloride) 100 mls @ 100 mls/hr IV DAILY [facility] PRN Reason: Protocol Stop: 10/25/16 10:01 Last Admin: 10/19/16 12:23 Dose: 100 mls/hr Sodium Chloride (Sodium Chloride 0.45%) 1,000 mls @ 100 mls/hr IV .Q10H [facility] Last Admin: 10/20/16 05:23 Dose: 100 mls/hr Lactulose (Enulose) 20 gm PO TID [facility]ON[facility] Last Admin: 10/19/16 21:08 Dose: 20 gm Metoclopramide HCl (Reglan) 10 mg IVP Q6H PRN PRN Reason: Other Last Admin: 10/18/16 09:19 Dose: 10 mg Midodrine (Proamatine) 5 mg PO TID [facility] Last Admin: 10/19/16 21:08 Dose: 5 mg Pantoprazole Sodium (Protonix Inj) 40 mg IVP DAILY [facility] Last Admin: 10/19/16 09:03 Dose: 40 mg Thiamine HCl (Vitamin B1 Tab) 100 mg PO DAILY [facility] Last Admin: 10/19/16 09:02 Dose: 100 mg Vitamin A (Vitamin A & D Oint Ud Foilpak) 1 ea TOP DAILY [facility] Last Admin: 10/19/16 10:40 Dose: 1 ea Vitamin B Complex/Vit C/Folic Acid (Nephro-Mariann) 1 tab PO 0800 [facility] Last Admin: 10/19/16 09:04 Dose: 1 tab - Labs Labs: 10/20/16 06:30 10/20/16 06:30 PT 14.5 Seconds (9.9-11.8) H 10/17/16 05:32 INR 1.34 (0.93-1.08) H 10/17/16 05:32 APTT 33.4 Seconds (23.7-30.8) H 10/17/16 05:32 - Eye Exam Eye Exam: EOMI, Normal appearance - ENT Exam ENT Exam: Mucous Membranes Moist Additional comments: trach in place - Neck Exam Neck Exam: Full ROM - Respiratory Exam Additional comments: patient is on ventilation at FiO2 of 40% - Cardiovascular Exam Cardiovascular Exam: REGULAR RHYTHM. absent: Bradycardia, Tachycardia - Extremities Exam Extremities Exam: Full ROM, Normal Inspection - Neurological Exam Neurological Exam: Altered, Awake - Psychiatric Exam Psychiatric exam: Flat Affect - Skin Skin Exam: Dry, Mottled, Warm Assessment and Plan - Assessment and Plan (Free Text) Assessment: 56M with end stage liver disease with encephalopathy, s/p Tracheostomy per ENT Plan: Plan for Gastrostomy tube Monday 10/23 Pre-Op Sunday d/w Dr. Yg De Luna, DO PGY1
[2016-10-20] MEDS: Multivitamin Vitamin B Complex (Nephro-Vite) Tab PO SCH (09:00)
[2016-10-20] MEDS: Meropenem 500 MG in Sodium Chloride 0.9% 100 ML IVPB SCH ×2 (09:12→22:09)
[2016-10-20] MEDS: Vitamins A & D Oint UD Foilpak TOP SCH (09:12)
[2016-10-20] MEDS: Micafungin 100 MG in Sodium Chloride 0.9% 100 ML IV SCH (09:15)
[2016-10-20] MEDS ORDERED: Potassium Chloride 40 mEq/30 ml LIQ UD PO ONE (09:15)
[2016-10-20] MEDS ORDERED: Magnesium Sulfate 2 GM in Sodium Chloride 0.9% 100 ML IVPB ONE (09:17)
--- NOTE | 2016-10-20 09:38 | RAD ---
HISTORY: pneumonia COMPARISON: 10/19/2016 FINDINGS: LUNGS: Bibasilar infiltrates unchanged PLEURA: No significant pleural effusion identified, no pneumothorax apparent. CARDIOVASCULAR: Normal. OSSEOUS STRUCTURES: No significant abnormalities. VISUALIZED UPPER ABDOMEN: Normal. OTHER FINDINGS: None. IMPRESSION: The feeding tube is at the level of the diaphragm at the GE junction. The tube should be advanced further into the stomach. Bibasilar infiltrates unchanged
[2016-10-20 09:53] LABS: INR 1.55 (0.93-1.08); PARTIAL THROMBOPLASTIN TIME 36.5 Seconds (23.7-30.8)
[2016-10-20 10:39] LABS: ARTERIAL BLOOD GAS HCO3 14.7 mmol/L (21-28); ARTERIAL BLOOD GAS O2 CAPACITY 11.4 mL/dl (16-24); ARTERIAL BLOOD GAS O2 CONTENT 11.3 ML/dl (15-23); ARTERIAL BLOOD GAS PH 7.22 (7.35-7.45); ARTERIAL BLOOD HGB O2 SAT 96.4 % (95.0-98.0); METHEMOGLOBIN 0.6 % (0.0-3.0)
--- NOTE | 2016-10-20 11:07 | CP.CCUPN ---
<KENDY CERNA - Last Filed: 10/20/16 10:42> CCU Subjective - Physician Review Subjective (Free Text): 10/20/16 11:14 Patient was seen and assessed at bedside. Patient intubated on PRVC mode and without sedation, however patient continues to be unresponsive to verbal, tactile and painful stimuli. Patient subjectively restless overnight, per nursing, and one dose of 1mg IV ativan given with complete resolution of restlessness. No other acute events were noted. ROS unobtainable due to clinical condition of patient. CCU Objective - Vital Signs / Intake & Output Intake and Output (Last 8hrs): Intake & Output 10/19/16 10/20/16 10/20/16 22:59 06:59 14:59 Intake Total 1700 Output Total 700 Balance 1000 Intake: IV 1700 Right Hand 1200 medication 500 Output: Urine 200 Urethral (Vyas) 200 Stool 300 Other 200 - Physical Exam Physical Exam Limitations: Positive for: Clinical Condition Head: Positive for: Atraumatic, Normocephalic Pupils: Positive for: PERRL, Sluggish Extroacular Muscles: Positive for: EOMI Conjunctiva: Positive for: Normal Ears: Positive for: Normal Mouth: Positive for: Moist Mucous Membranes, Other Nose (External): Positive for: Atraumatic Nose (Internal): Positive for: Other (Dobbhoff tube in position in L nares) Neck: Positive for: Normal Range of Motion, Trachea Midline, Other ( Tracheostomy insertion site without signs of infection; scattered bruising and ecchymosis from trach placement). Negative for: Lymphadenopathy Respiratory/Chest: Positive for: Clear to Auscultation, Good Air Exchange, Tachypneic, Other (Mechanical ventilation). Negative for: Respiratory Distress , Accessory Muscle Use, Wheezes, Decreased Breath Sounds, Retracting, Rhonchi Cardiovascular: Positive for: Regular Rate and Rhythm, Normal S1, S2. Negative for: Murmurs Abdomen: Positive for: Normal Bowel Sounds, Other (Paracentesis site with sutures, no signs of infection, dressing clean, dry and intact; shifting dullness). Negative for: Tenderness, Distention, Peritoneal Signs Genitourinary Male: Positive for: Other (Vyas in place, no signs of infection) . Negative for: Testicle Swelling Back: Positive for: Normal Inspection Upper Extremity: Positive for: Edema (1+ pitting edema B/L UE). Negative for: Normal Inspection (Multiple areas of ecchymoses), Cyanosis Lower Extremity: Positive for: Edema (1+ Pitting edema B/L up to thighs). Negative for: Normal Inspection Neurological: Positive for: Other (Gag and corneal reflex intact; ability to track motion with eyes intact). Negative for: GCS=15 (GCS of 3T), CN II-XII Intact, Speech Normal Skin: Positive for: Warm, Other (Area of erythema on the presacral area of the lower back measuring approximately 2-3cm with no skin ulceration; currently unstageable ). Negative for: Rashes, Normal Color (multiple ecchymoses over UE B/L) Psychiatric: Negative for: Alert (arousable to tactile stimuli), Oriented x 3, Normal Insight, Normal Concentration - Medications Active Medications: Active Medications Generic Name Dose Route Start Last Admin Trade Name Freq PRN Reason Stop Dose Admin Amikacin Sulfate 500 mg 10/19/16 20:00 10/20/16 08:14 Amikacin 500 Mg/2ml Inj IH 500 mg [id number] TONI Administration Artificial Tears 1 gm 10/10/16 18:00 10/20/16 05:20 Artificial Tears Opht Oint OU 1 applic Q6 TONI Administration Folic Acid 1 mg 10/03/16 10:00 10/20/16 09:11 Folic Acid PO 1 mg DAILY TONI Administration Meropenem 500 mg/ Sodium 100 mls @ 100 mls/hr 10/14/16 07:06 10/20/16 09:12 Chloride IVPB 10/21/16 07:07 100 mls/hr Q12 TONI Administration Protocol Gentamicin Sulfate 270 mg/ 106.75 mls @ 106.75 mls/hr 10/15/16 10:00 11:42 Sodium Chloride IVPB 106.75 mls/hr ONCE TONI Administration Doxycycline Hyclate 100 mg/ 100 mls @ 100 mls/hr 10/16/16 10:00 10/20/16 09: 15 Sodium Chloride IVPB 10/23/16 10:01 100 mls/hr Q12 TONI Administration Protocol Micafungin Sodium 100 mg/ 100 mls @ 100 mls/hr 10/18/16 10:00 10/20/16 09:15 Sodium Chloride IV 10/25/16 10:01 100 mls/hr DAILY TONI Administration Protocol Sodium Bicarbonate 150 meq/ 1,150 mls @ 100 mls/hr 10/20/16 10:15 Dextrose IV .[id number] TONI Lactulose 20 gm 10/11/16 10:00 10/20/16 09:12 Enulose PO 20 gm TID TONI Administration Metoclopramide HCl 10 mg 10/09/16 16:56 10/18/16 09:19 Reglan IVP 10 mg Q6H PRN Administration Other Midodrine 5 mg 10/09/16 10:00 10/20/16 09:11 Proamatine PO 5 mg TID TONI Administration Pantoprazole Sodium 40 mg 10/03/16 10:00 10/20/16 09:12 Protonix Inj IVP 40 mg DAILY TONI Administration Thiamine HCl 100 mg 10/03/16 10:00 10/20/16 09:12 Vitamin B1 Tab PO 100 mg DAILY TONI Administration Vitamin A 1 ea 10/03/16 10:00 10/20/16 09:12 Vitamin A & D Oint Ud Foilpak TOP 1 ea DAILY TONI Administration Vitamin B Complex/Vit C/Folic Acid 1 tab 10/03/16 08:00 10/20/16 09:00 Nephro-Mariann PO 1 tab 0800 TONI Administration - Patient Studies Lab Studies: Microbiology Studies 10/16/16 11:25 Blood Culture - Preliminary Blood-Venous NO GROWTH AFTER 3 DAYS 10/16/16 11:00 Blood Culture - Preliminary Blood-Venous NO GROWTH AFTER 3 DAYS 10/18/16 08:07 Urine Culture - Final Urine,Vyas No Growth (<1,000 CFU/ML) 10/14/16 08:00 Blood Culture - Final Blood NO GROWTH AFTER 5 DAYS Gram Stain - Final TEST NOT PERFORMED Lab Studies 10/20/16 10/20/16 10/20/16 Range/Units 10:35 09:35 06:30 WBC (4.5-11.0) 10^3/ul RBC (3.5-6.1) 10^6/uL Hgb (14.0-18.0) g/dL Hct (42.0-52.0) % MCV (80.0-105.0) fl MCH (25.0-35.0) pg MCHC (31.0-37.0) g/dl RDW (11.5-14.5) % Plt Count (120.0-450.0) 10^3/uL MPV (7.0-11.0) fl Gran % (50.0-68.0) % Lymph % (Auto) (22.0-35.0) % Owen % (Auto) (1.0-6.0) % Eos % (Auto) (1.5-5.0) % Baso % (Auto) (0.0-3.0) % Gran # (1.4-6.5) Lymph # (1.2-3.4) Owen # (0.1-0.6) Eos # (0.0-0.7) Baso # (0.0-2.0) K/mm3 PT 16.7 H (9.9-11.8) Seconds INR 1.55 H (0.93-1.08) APTT 36.5 H (23.7-30.8) Seconds pCO2 36 (35-45) mm/Hg pO2 87.0 (80-100) mm/Hg HCO3 14.7 L (21-28) mmol/L ABG pH 7.22 L (7.35-7.45) ABG Total CO2 15.8 L (22-28) mmol.L ABG O2 Saturation 99.0 H (95-98) % ABG O2 Content 11.3 L (15-23) ML/dl ABG Base Excess -12.0 L (-2.0-3.0) mmol/L ABG Hemoglobin 8.2 L (11.7-17.4) g/dL ABG Carboxyhemoglobin 2.0 H (0.5-1.5) % POC ABG HHb (Measured) 1.0 (0-5) % ABG Methemoglobin 0.6 (0.0-3.0) % ABG O2 Capacity 11.4 L (16-24) mL/dl ABG Potassium (3.6-5.2) mmol/L Hgb O2 Saturation 96.4 (95.0-98.0) % Sodium 139 (132-148) mmol/L Chloride 112 H (98-107) mmol/L Glucose (75-110) mg/dl Lactate (0.7-2.1) mmol/L Mechanical Rate FiO2 40.0 % Tidal Volume PEEP Potassium 3.5 L (3.6-5.0) mmol/L Carbon Dioxide 17 L (21-33) mmol/L Anion Gap 14 (10-20) BUN 96 H (7-21) mg/dL Creatinine 2.4 H (0.5-1.4) mg/dL Est GFR ( Amer) 34 Est GFR (Non-Af Amer) 28 Random Glucose 84 (70-110) mg/dL Calcium 7.2 L (8.4-10.5) mg/dL Phosphorus 6.8 H (2.5-4.5) mg/dL Magnesium 1.4 L (1.7-2.2) mg/dL Total Bilirubin 1.8 H (0.2-1.3) mg/dL AST 73 H (17-59) U/L ALT 59 H (7-56) U/L Alkaline Phosphatase 79 (38-126) U/L Total Protein 5.0 L (5.8-8.3) g/dL Albumin 1.9 L (3.0-4.8) g/dL Globulin 3.1 gm/dL Albumin/Globulin Ratio 0.6 L (1.1-1.8) Arterial Blood Potassium (3.6-5.2) mmol/L 10/20/16 10/19/16 10/19/16 Range/Units 06:30 18:14 13:00 WBC 6.1 D (4.5-11.0) 10^3/ul RBC 2.37 L (3.5-6.1) 10^6/uL Hgb 7.6 L (14.0-18.0) g/dL Hct 23.5 L (42.0-52.0) % MCV 99.2 D (80.0-105.0) fl MCH 32.1 (25.0-35.0) pg MCHC 32.3 (31.0-37.0) g/dl RDW 15.7 H (11.5-14.5) % Plt Count 105 L (120.0-450.0) 10^3/uL MPV 11.1 H (7.0-11.0) fl Gran % 74.4 H (50.0-68.0) % Lymph % (Auto) 24.4 (22.0-35.0) % Owen % (Auto) 0.8 L (1.0-6.0) % Eos % (Auto) 0.2 L (1.5-5.0) % Baso % (Auto) 0.2 (0.0-3.0) % Gran # 4.52 (1.4-6.5) Lymph # 1.5 (1.2-3.4) Owen # 0.1 (0.1-0.6) Eos # 0.0 (0.0-0.7) Baso # 0.01 (0.0-2.0) K/mm3 PT (9.9-11.8) Seconds INR (0.93-1.08) APTT (23.7-30.8) Seconds pCO2 44 52 H (35-45) mm/Hg pO2 122.0 H 63.0 L (80-100) mm/Hg HCO3 15.3 L 16.5 L (21-28) mmol/L ABG pH 7.15 L* 7.11 L* (7.35-7.45) ABG Total CO2 16.7 L 18.1 L (22-28) mmol.L ABG O2 Saturation 100.1 H 95.8 (95-98) % ABG O2 Content 10.2 L (15-23) ML/dl ABG Base Excess -12.6 L -13.1 L (-2.0-3.0) mmol/L ABG Hemoglobin 7.3 L (11.7-17.4) g/dL ABG Carboxyhemoglobin 2.6 H (0.5-1.5) % POC ABG HHb (Measured) -0.1 L (0-5) % ABG Methemoglobin 0.7 (0.0-3.0) % ABG O2 Capacity 10.2 L (16-24) mL/dl ABG Potassium 3.7 (3.6-5.2) mmol/L Hgb O2 Saturation 96.8 (95.0-98.0) % Sodium 139.0 (132-148) mmol/L Chloride 113.0 H (98-107) mmol/L Glucose 110 (75-110) mg/dl Lactate 1.1 (0.7-2.1) mmol/L Mechanical Rate 30 FiO2 50.0 40.0 % Tidal Volume 400 PEEP 5 Potassium (3.6-5.0) mmol/L Carbon Dioxide (21-33) mmol/L Anion Gap (10-20) BUN (7-21) mg/dL Creatinine (0.5-1.4) mg/dL Est GFR ( Amer) Est GFR (Non-Af Amer) Random Glucose (70-110) mg/dL Calcium (8.4-10.5) mg/dL Phosphorus (2.5-4.5) mg/dL Magnesium (1.7-2.2) mg/dL Total Bilirubin (0.2-1.3) mg/dL AST (17-59) U/L ALT (7-56) U/L Alkaline Phosphatase (38-126) U/L Total Protein (5.8-8.3) g/dL Albumin (3.0-4.8) g/dL Globulin gm/dL Albumin/Globulin Ratio (1.1-1.8) Arterial Blood Potassium 3.7 (3.6-5.2) mmol/L Laboratory Results - last 24 hr 10/19/16 10/19/16 10/20/16 13:00 18:14 06:30 WBC 6.1 D RBC 2.37 L Hgb 7.6 L Hct 23.5 L MCV 99.2 D MCH 32.1 MCHC 32.3 RDW 15.7 H Plt Count 105 L MPV 11.1 H Gran % 74.4 H Lymph % (Auto) 24.4 Owen % (Auto) 0.8 L Eos % (Auto) 0.2 L Baso % (Auto) 0.2 Gran # 4.52 Lymph # 1.5 Owen # 0.1 Eos # 0.0 Baso # 0.01 PT INR APTT pCO2 52 H 44 pO2 63.0 L 122.0 H HCO3 16.5 L 15.3 L ABG pH 7.11 L* 7.15 L* ABG Total CO2 18.1 L 16.7 L ABG O2 Saturation 95.8 100.1 H ABG O2 Content 10.2 L ABG Base Excess -13.1 L -12.6 L ABG Hemoglobin 7.3 L ABG Carboxyhemoglobin 2.6 H POC ABG HHb (Measured) -0.1 L ABG Methemoglobin 0.7 ABG O2 Capacity 10.2 L ABG Potassium 3.7 Hgb O2 Saturation 96.8 Sodium 139.0 Chloride 113.0 H Glucose 110 Lactate 1.1 Mechanical Rate 30 FiO2 40.0 50.0 Tidal Volume 400 PEEP 5 Potassium Carbon Dioxide Anion Gap BUN Creatinine Est GFR ( Amer) Est GFR (Non-Af Amer) Random Glucose Calcium Phosphorus Magnesium Total Bilirubin AST ALT Alkaline Phosphatase Total Protein Albumin Globulin Albumin/Globulin Ratio Arterial Blood Potassium 3.7 10/20/16 10/20/16 10/20/16 06:30 09:35 10:35 WBC RBC Hgb Hct MCV MCH MCHC RDW Plt Count MPV Gran % Lymph % (Auto) Owen % (Auto) Eos % (Auto) Baso % (Auto) Gran # Lymph # Owen # Eos # Baso # PT 16.7 H INR 1.55 H APTT 36.5 H pCO2 36 pO2 87.0 HCO3 14.7 L ABG pH 7.22 L ABG Total CO2 15.8 L ABG O2 Saturation 99.0 H ABG O2 Content 11.3 L ABG Base Excess -12.0 L ABG Hemoglobin 8.2 L ABG Carboxyhemoglobin 2.0 H POC ABG HHb (Measured) 1.0 ABG Methemoglobin 0.6 ABG O2 Capacity 11.4 L ABG Potassium Hgb O2 Saturation 96.4 Sodium 139 Chloride 112 H Glucose Lactate Mechanical Rate FiO2 40.0 Tidal Volume PEEP Potassium 3.5 L Carbon Dioxide 17 L Anion Gap 14 BUN 96 H Creatinine 2.4 H Est GFR ( Amer) 34 Est GFR (Non-Af Amer) 28 Random Glucose 84 Calcium 7.2 L Phosphorus 6.8 H Magnesium 1.4 L Total Bilirubin 1.8 H AST 73 H ALT 59 H Alkaline Phosphatase 79 Total Protein 5.0 L Albumin 1.9 L Globulin 3.1 Albumin/Globulin Ratio 0.6 L Arterial Blood Potassium EKG/Cardiology Studies: Cardiology / EKG Studies 10/20/16 ELECTROCARDIOGRAM Urgent Comment: Reason For Exam: preop clearance for gastrostomy tube Fingerstick Blood Sugar Results: 105 Review of Systems - Review of Systems Review of Systems: Please refer to [facility] Critical Care Progress Note - Ventilator Checklist Head of Bed 30 Degrees: Yes PUD Prophalyxis: Yes DVT Prophylaxis: Yes Oral Care with Chlorhexidine Gluconate {CHG}: Yes - Vent Settings MODE:: PRVC TIDAL VOLUME:: 400 RESP RATE:: 30 FIO2:: 40 PEEP:: 5 - Extremities/Vascular Does the Patient have a Central Venous Catheter?: No Does the Patient need a Central Venous Catheter?: No Does the Patient have a Vyas Catheter?: Yes Does the Patient need a Vyas Catheter?: Yes Catheter Insertion Criteria: Need for accurate measurement of output in critically ill patient - Prophylaxis GI Prophylaxis GI: PPI - Prophylaxis DVT Prophylaxis DVT: SCDs Assessment/Plan - Assessment and Plan (Free Text) Assessment: 56 year old male with an initial presentation of AMS in the setting of persistent hypokalemia and alcohol withdrawal, which resolved. Patient was then intubated after he was found to be in hypercapnic respiratory failure and subsequently became hemodynamically unstable requiring dual vasopressor support. His presentation is consistent with distributive shock likely from either acute decompensated chronic liver failure or sepsis from C. Diff colitis , with multiorgan dysfunction syndrome including renal failure, encephalopathy and respiratory failure. Patient is no longer requiring vasopressin or levophed for hemodynamic support but is on midodrine. Patient is currently unresponsive to verbal or tactile stimuli off of sedation. Patient currently on PRVC and is s /p tracheostomy placement on 10/19. Plan: Neuro: -CT head showed on 10/02 no acute findings in the brain and no acute hemorrhages or infarcts, age related cortical atrophy and ventriculomegaly -Repeat CT head done on 10/11 and 10/16 showed no acute intracranial pathology with no interval changes. -EEG done on 10/14 showed severe bihemispheric cerebral dysfunction with no epileptiform activity -Current GCS of 6 ([id number]) -Currently intubated with no sedation and unresponsive to verbal, tactile or painful stimuli -Continue Lactulose 20mg TID -Continue Thiamine, Folic Acid and MV supplementation Pulm: Mechanical ventilation settings on PRVC currently at: FiO2-40 PEEP-5 RR-30 TV-400 -Chest X-Ray on 10/18 showed new right lower lobe infiltrate questionable for pneumonia versus atelectasis -Started Amikacin 500mg IH [id number] for pseudomonas tracheobronchtits -Continue protective lung ventilation strategy and VAP prevention strategies, including maintaining HOB greater that 35 degrees, oral hygiene, chlorhexidine in the posterior pharynx and GI/DVT prophylaxis -S/p tracheostomy placement on 10/19 -Continue daily PS/CPAP weaning trials as tolerated -Continue Duonebs 3ml IH [id number] for wheezing -ENT consulted, all recommendations appreciated Cardio: -ECHO done on 10/10 showed LVEF of 55% with poor visualization of the valvular structures due to poor ECHO window and to consider MARILUZ if clinically indicated -EKG done on 10/19 shows sinus tachycardia at a rate of 105 and low voltage QRS with a non-specific t-wave abnormality -Continue midodrine 5mg PO TID -Cardiology consulted, appreciate all recommendations GI: -CT abdomen/pelvis done on 10/04 showed possible sigmoid colitis, mild-to- moderate abdominal and pelvic ascites, free intrarenal gas or definite bowel obstruction, and hepatosplenomegaly again identified as well as diffuse fatty infiltration of liver -Approximately 2.5L of fluid removed via paracentesis on 10/05 with appropriate albumin resuscitation provided -Ascites predominantly lymphocytic and cytology showing no malignancy -Gastrostomy tube placement scheduled for 10/23 -AST/ALT at 73/59 with T. Bili at 1.8, currently stable -Continue Lactulose 20mg TID -Vital AF tube feedings at 30ml/hr, increase by 5ml/hr as tolerated -Continue Reglan 10mg IVP Q6H PRN -Rectal tube in place and currently draining 300cc over the past 24 hours -GI and Surgery consulted, all recommendations appreciated Renal: -BUN/Creatinine at 96/2.4, representing improvement of acute kidney injury -Start Bicarb drip at 100mls/hr, per nephrology -Continue free water flushes 150ml q4 as tolerated -Vyas catheter in place and draining 200cc over the past 24 hours -Will continue to replete calcium, magnesium, phosphorus and potassium as needed -Will continue to monitor with serial CMP's with magnesium and phosphorous levels -Nephrology consulted, all recommendations appreciated Endocrine: -Will maintain euglycemia with blood glucose between 140 and 180 Heme/Onc: -H/H stable at 7.6/23.5 -Platelets 105 -Will continue to monitor with serial CBC's MSK: -Area of erythema on presacral area measuring approximately 2cm with no skin breakage -Continue to turn patient Q2H to prevent ulceration and air mattress -PT/OT evaluation and treatment ordered, stated that they will see patient when he is more clinically appropriate for therapy ID: -Currently on Amikacin 500mg IH [id number] (Day 1), Micafungin 100mg IV daily (day 13), Merrem 250mg IVPB Q12 (day 15), and Doxycycline 100mg IVPB Q12 (Day 3); Gentamycin at 106.75mls/hr IVPB (Day 4) (currently held as trough was elevated to 7.5) -Currently afebrile, normotensive, and non-tachycardic with no leukocytosis -Most recent blood and urine cultures negative for growth for 72 hours -Sputum culture drawn on 10/14 grew Pseudomonas Aeruginosa, susceptible to Merrem and Gentamycin -Previous blood, sputum and urine cultures drawn on 10/05 grew Mellisa Albicans -C. Diff antigen positive and toxin negative on 10/04 -MRSA screen negative on admission -Continue active patient cooling with cooling blankets for temperatures over 100.4 -ID consulted, all recommendations appreciated Lines: -Continue all peripheral lines GI Prophylaxis: Protonix DVT Prophylaxis: SCD's Disposition: Patient to receive gastrostomy tube on 10/23 for long-term enteral feedings. SOFA score of 9, which is correlated with a predicted mortality of 40- 50%. Poor prognosis overall and will need adjunct faculty for medical terminology care in a specialized facility. Patient seen and case discussed in detail with attending, Dr. Hinojosa. - Date & Time Date: 10/20/16 Time: 11:07 <Otto Hinojosa - Last Filed: 10/20/16 16:07> CCU Objective - Medications Active Medications: Active Medications Generic Name Dose Route Start Last Admin Trade Name Freq PRN Reason Stop Dose Admin Amikacin Sulfate 500 mg 10/19/16 20:00 10/20/16 08:14 Amikacin 500 Mg/2ml Inj IH 500 mg [id number] TONI Administration Artificial Tears 1 gm 10/10/16 18:00 10/20/16 13:11 Artificial Tears Opht Oint OU 1 applic Q6 TONI Administration Folic Acid 1 mg 10/03/16 10:00 10/20/16 09:11 Folic Acid PO 1 mg DAILY TONI Administration Meropenem 500 mg/ Sodium 100 mls @ 100 mls/hr 10/14/16 07:06 10/20/16 09:12 Chloride IVPB 10/21/16 07:07 100 mls/hr Q12 TONI Administration Protocol Gentamicin Sulfate 270 mg/ 106.75 mls @ 106.75 mls/hr 10/15/16 10:00 11:42 Sodium Chloride IVPB 106.75 mls/hr ONCE TONI Administration Doxycycline Hyclate 100 mg/ 100 mls @ 100 mls/hr 10/16/16 10:00 10/20/16 09: 15 Sodium Chloride IVPB 10/23/16 10:01 100 mls/hr Q12 TONI Administration Protocol Micafungin Sodium 100 mg/ 100 mls @ 100 mls/hr 10/18/16 10:00 10/20/16 09:15 Sodium Chloride IV 10/25/16 10:01 100 mls/hr DAILY TONI Administration Protocol Sodium Bicarbonate 150 meq/ 1,150 mls @ 100 mls/hr 10/20/16 10:15 10/20/16 13 :30 Dextrose IV 100 mls/hr .[id number] TONI Administration Lactulose 20 gm 10/11/16 10:00 10/20/16 09:12 Enulose PO 20 gm TID TONI Administration Metoclopramide HCl 10 mg 10/09/16 16:56 10/18/16 09:19 Reglan IVP 10 mg Q6H PRN Administration Other Midodrine 5 mg 10/09/16 10:00 10/20/16 09:11 Proamatine PO 5 mg TID TONI Administration Pantoprazole Sodium 40 mg 10/03/16 10:00 10/20/16 09:12 Protonix Inj IVP 40 mg DAILY TONI Administration Thiamine HCl 100 mg 10/03/16 10:00 10/20/16 09:12 Vitamin B1 Tab PO 100 mg DAILY TONI Administration Vitamin A 1 ea 10/03/16 10:00 10/20/16 09:12 Vitamin A & D Oint Ud Foilpak TOP 1 ea DAILY TONI Administration Vitamin B Complex/Vit C/Folic Acid 1 tab 10/03/16 08:00 10/20/16 09:00 Nephro-Mariann PO 1 tab 0800 TONI Administration - Patient Studies Lab Studies: Microbiology Studies 10/16/16 11:25 Blood Culture - Preliminary Blood-Venous NO GROWTH AFTER 4 DAYS 10/16/16 11:00 Blood Culture - Preliminary Blood-Venous NO GROWTH AFTER 4 DAYS Lab Studies 10/20/16 10/20/16 10/20/16 Range/Units 10:35 09:35 08:11 WBC (4.5-11.0) 10^3/ul RBC (3.5-6.1) 10^6/uL Hgb (14.0-18.0) g/dL Hct (42.0-52.0) % MCV (80.0-105.0) fl MCH (25.0-35.0) pg MCHC (31.0-37.0) g/dl RDW (11.5-14.5) % Plt Count (120.0-450.0) 10^3/uL MPV (7.0-11.0) fl Gran % (50.0-68.0) % Lymph % (Auto) (22.0-35.0) % Owen % (Auto) (1.0-6.0) % Eos % (Auto) (1.5-5.0) % Baso % (Auto) (0.0-3.0) % Gran # (1.4-6.5) Lymph # (1.2-3.4) Owen # (0.1-0.6) Eos # (0.0-0.7) Baso # (0.0-2.0) K/mm3 PT 16.7 H (9.9-11.8) Seconds INR 1.55 H (0.93-1.08) APTT 36.5 H (23.7-30.8) Seconds pCO2 36 (35-45) mm/Hg pO2 87.0 (80-100) mm/Hg HCO3 14.7 L (21-28) mmol/L ABG pH 7.22 L (7.35-7.45) ABG Total CO2 15.8 L (22-28) mmol.L ABG O2 Saturation 99.0 H (95-98) % ABG O2 Content 11.3 L (15-23) ML/dl ABG Base Excess -12.0 L (-2.0-3.0) mmol/L ABG Hemoglobin 8.2 L (11.7-17.4) g/dL ABG Carboxyhemoglobin 2.0 H (0.5-1.5) % POC ABG HHb (Measured) 1.0 (0-5) % ABG Methemoglobin 0.6 (0.0-3.0) % ABG O2 Capacity 11.4 L (16-24) mL/dl Hgb O2 Saturation 96.4 (95.0-98.0) % FiO2 40.0 % Sodium (132-148) mmol/L Potassium (3.6-5.0) mmol/L Chloride (98-107) mmol/L Carbon Dioxide (21-33) mmol/L Anion Gap (10-20) BUN (7-21) mg/dL Creatinine (0.5-1.4) mg/dL Est GFR ( Amer) Est GFR (Non-Af Amer) POC Glucose (mg/dL) 92 (65-110) mg/dL Random Glucose (70-110) mg/dL Calcium (8.4-10.5) mg/dL Phosphorus (2.5-4.5) mg/dL Magnesium (1.7-2.2) mg/dL Total Bilirubin (0.2-1.3) mg/dL AST (17-59) U/L ALT (7-56) U/L Alkaline Phosphatase (38-126) U/L Total Protein (5.8-8.3) g/dL Albumin (3.0-4.8) g/dL Globulin gm/dL Albumin/Globulin Ratio (1.1-1.8) 10/20/16 10/20/16 10/19/16 Range/Units 06:30 06:30 18:14 WBC 6.1 D (4.5-11.0) 10^3/ul RBC 2.37 L (3.5-6.1) 10^6/uL Hgb 7.6 L (14.0-18.0) g/dL Hct 23.5 L (42.0-52.0) % MCV 99.2 D (80.0-105.0) fl MCH 32.1 (25.0-35.0) pg MCHC 32.3 (31.0-37.0) g/dl RDW 15.7 H (11.5-14.5) % Plt Count 105 L (120.0-450.0) 10^3/uL MPV 11.1 H (7.0-11.0) fl Gran % 74.4 H (50.0-68.0) % Lymph % (Auto) 24.4 (22.0-35.0) % Owen % (Auto) 0.8 L (1.0-6.0) % Eos % (Auto) 0.2 L (1.5-5.0) % Baso % (Auto) 0.2 (0.0-3.0) % Gran # 4.52 (1.4-6.5) Lymph # 1.5 (1.2-3.4) Owen # 0.1 (0.1-0.6) Eos # 0.0 (0.0-0.7) Baso # 0.01 (0.0-2.0) K/mm3 PT (9.9-11.8) Seconds INR (0.93-1.08) APTT (23.7-30.8) Seconds pCO2 44 (35-45) mm/Hg pO2 122.0 H (80-100) mm/Hg HCO3 15.3 L (21-28) mmol/L ABG pH 7.15 L* (7.35-7.45) ABG Total CO2 16.7 L (22-28) mmol.L ABG O2 Saturation 100.1 H (95-98) % ABG O2 Content 10.2 L (15-23) ML/dl ABG Base Excess -12.6 L (-2.0-3.0) mmol/L ABG Hemoglobin 7.3 L (11.7-17.4) g/dL ABG Carboxyhemoglobin 2.6 H (0.5-1.5) % POC ABG HHb (Measured) -0.1 L (0-5) % ABG Methemoglobin 0.7 (0.0-3.0) % ABG O2 Capacity 10.2 L (16-24) mL/dl Hgb O2 Saturation 96.8 (95.0-98.0) % FiO2 50.0 % Sodium 139 (132-148) mmol/L Potassium 3.5 L (3.6-5.0) mmol/L Chloride 112 H (98-107) mmol/L Carbon Dioxide 17 L (21-33) mmol/L Anion Gap 14 (10-20) BUN 96 H (7-21) mg/dL Creatinine 2.4 H (0.5-1.4) mg/dL Est GFR ( Amer) 34 Est GFR (Non-Af Amer) 28 POC Glucose (mg/dL) (65-110) mg/dL Random Glucose 84 (70-110) mg/dL Calcium 7.2 L (8.4-10.5) mg/dL Phosphorus 6.8 H (2.5-4.5) mg/dL Magnesium 1.4 L (1.7-2.2) mg/dL Total Bilirubin 1.8 H (0.2-1.3) mg/dL AST 73 H (17-59) U/L ALT 59 H (7-56) U/L Alkaline Phosphatase 79 (38-126) U/L Total Protein 5.0 L (5.8-8.3) g/dL Albumin 1.9 L (3.0-4.8) g/dL Globulin 3.1 gm/dL Albumin/Globulin Ratio 0.6 L (1.1-1.8) Laboratory Results - last 24 hr 10/19/16 10/20/16 10/20/16 18:14 06:30 06:30 WBC 6.1 D RBC 2.37 L Hgb 7.6 L Hct 23.5 L MCV 99.2 D MCH 32.1 MCHC 32.3 RDW 15.7 H Plt Count 105 L MPV 11.1 H Gran % 74.4 H Lymph % (Auto) 24.4 Owen % (Auto) 0.8 L Eos % (Auto) 0.2 L Baso % (Auto) 0.2 Gran # 4.52 Lymph # 1.5 Owen # 0.1 Eos # 0.0 Baso # 0.01 PT INR APTT pCO2 44 pO2 122.0 H HCO3 15.3 L ABG pH 7.15 L* ABG Total CO2 16.7 L ABG O2 Saturation 100.1 H ABG O2 Content 10.2 L ABG Base Excess -12.6 L ABG Hemoglobin 7.3 L ABG Carboxyhemoglobin 2.6 H POC ABG HHb (Measured) -0.1 L ABG Methemoglobin 0.7 ABG O2 Capacity 10.2 L Hgb O2 Saturation 96.8 FiO2 50.0 Sodium 139 Potassium 3.5 L Chloride 112 H Carbon Dioxide 17 L Anion Gap 14 BUN 96 H Creatinine 2.4 H Est GFR ( Amer) 34 Est GFR (Non-Af Amer) 28 POC Glucose (mg/dL) Random Glucose 84 Calcium 7.2 L Phosphorus 6.8 H Magnesium 1.4 L Total Bilirubin 1.8 H AST 73 H ALT 59 H Alkaline Phosphatase 79 Total Protein 5.0 L Albumin 1.9 L Globulin 3.1 Albumin/Globulin Ratio 0.6 L 10/20/16 10/20/16 10/20/16 08:11 09:35 10:35 WBC RBC Hgb Hct MCV MCH MCHC RDW Plt Count MPV Gran % Lymph % (Auto) Owen % (Auto) Eos % (Auto) Baso % (Auto) Gran # Lymph # Owen # Eos # Baso # PT 16.7 H INR 1.55 H APTT 36.5 H pCO2 36 pO2 87.0 HCO3 14.7 L ABG pH 7.22 L ABG Total CO2 15.8 L ABG O2 Saturation 99.0 H ABG O2 Content 11.3 L ABG Base Excess -12.0 L ABG Hemoglobin 8.2 L ABG Carboxyhemoglobin 2.0 H POC ABG HHb (Measured) 1.0 ABG Methemoglobin 0.6 ABG O2 Capacity 11.4 L Hgb O2 Saturation 96.4 FiO2 40.0 Sodium Potassium Chloride Carbon Dioxide Anion Gap BUN Creatinine Est GFR ( Amer) Est GFR (Non-Af Amer) POC Glucose (mg/dL) 92 Random Glucose Calcium Phosphorus Magnesium Total Bilirubin AST ALT Alkaline Phosphatase Total Protein Albumin Globulin Albumin/Globulin Ratio EKG/Cardiology Studies: Cardiology / EKG Studies 10/20/16 ELECTROCARDIOGRAM Urgent Comment: Reason For Exam: preop clearance for gastrostomy tube Attending/Attestation - Attestation I have personally seen and examined this patient.: Yes I have fully participated in the care of the patient.: Yes I have reviewed all pertinent clinical information: Yes Notes (Text): 10/20/16 16:03 56 yo with VDRF and ESLD, s/p trach. continue with low Vt ventilation, daily weaning trial, HOB>35, oral hygiene, meropenem and inhaled amikacin, pulm toielt , trophic feeds. family meeting. dvt/gi prophylaxis ccm time 40 min
--- NOTE | 2016-10-20 12:31 | PN ---
DATE: 10/20/2016 SUBJECTIVE: The patient is in bed, in no acute distress. PHYSICAL EXAMINATION: VITAL SIGNS: Temperature is 98, blood pressure is 100/40, and respiratory rate of 18. HEENT: Unremarkable. NECK: Supple. LUNGS: Have decreased breath sounds. HEART: Normal S1 and S2. ABDOMEN: Soft. LABORATORY EXAMINATION: Reveals a white count of 6.1, hemoglobin of 7, and platelets of 105. Chemistry reveals BUN of 96 and creatinine of 2.4. WBCs noted. Microbiology is noted. ASSESSMENT AND PLAN: This is a 56-year-old male with severe sepsis, ventilator-dependent respiratory failure, respiratory acidosis, acute renal failure, developed Mellisa albicans, fungemia on top of colitis, spontaneous bacterial peritonitis, the patient with liver cirrhosis and alcohol abuse and paracentesis and Pseudomonas healthcare-associated pneumonia, chronic alcoholism, liver cirrhosis, esophageal varices, day of meropenem, day #6 of doxycycline and the patient on p.o. vancomycin and day #13 of Mycamine. The patient had tracheostomy. Overall prognosis is quite poor. Nehemiah Aguilar MD
[2016-10-20] MEDS: Sodium Bicarbonate 8.4% 150 MEQ in Dextrose 5% In Water 1,000 ML IV SCH ×2 (13:30→20:58)
--- NOTE | 2016-10-20 14:01 | CP.PCM.PN ---
<Justo Torres - Last Filed: 10/20/16 14:04> Subjective - Date & Time of Evaluation Date of Evaluation: 10/20/16 Time of Evaluation: 06:33 - Subjective Subjective: Patient seen and examined at bedside. Patient s/p Trach placement Day 1. Per nursing the patient was given 1 mg of Ativan overnight due to restlessness . ROS unobtainable due to patient's current clinical picture. Objective - Vital Signs/Intake and Output Vital Signs (last 24 hours): Temp Pulse Resp BP Pulse Ox 97.7 F 94 H 32 H 100/43 L 100 10/20/16 05:00 10/20/16 05:00 10/20/16 00:00 10/20/16 05:00 10/20/16 05:00 - Medications Medications: Current Medications Amikacin Sulfate (Amikacin 500 Mg/2ml Inj) 500 mg IH [id number] [facility] Last Admin: 10/20/16 08:14 Dose: 500 mg Artificial Tears (Artificial Tears Opht Oint) 1 gm OU Q6 [facility] Last Admin: 10/20/16 13:11 Dose: 1 applic Folic Acid (Folic Acid) 1 mg PO DAILY [facility] Last Admin: 10/20/16 09:11 Dose: 1 mg Meropenem 500 mg/ Sodium (Chloride) 100 mls @ 100 mls/hr IVPB Q12 [facility] PRN Reason: Protocol Stop: 10/21/16 07:07 Last Admin: 10/20/16 09:12 Dose: 100 mls/hr Gentamicin Sulfate 270 mg/ (Sodium Chloride) 106.75 mls @ 106.75 mls/hr IVPB ONCE [facility] Last Admin: 10/17/16 11:42 Dose: 106.75 mls/hr Doxycycline Hyclate 100 mg/ (Sodium Chloride) 100 mls @ 100 mls/hr IVPB Q12 [facility] PRN Reason: Protocol Stop: 10/23/16 10:01 Last Admin: 10/20/16 09:15 Dose: 100 mls/hr Micafungin Sodium 100 mg/ (Sodium Chloride) 100 mls @ 100 mls/hr IV DAILY [facility] PRN Reason: Protocol Stop: 10/25/16 10:01 Last Admin: 10/20/16 09:15 Dose: 100 mls/hr Sodium Bicarbonate 150 meq/ (Dextrose) 1,150 mls @ 100 mls/hr IV .[id number] [facility] Last Admin: 10/20/16 13:30 Dose: 100 mls/hr Lactulose (Enulose) 20 gm PO TID [facility] Last Admin: 10/20/16 09:12 Dose: 20 gm Metoclopramide HCl (Reglan) 10 mg IVP Q6H PRN PRN Reason: Other Last Admin: 10/18/16 09:19 Dose: 10 mg Midodrine (Proamatine) 5 mg PO TID [facility] Last Admin: 10/20/16 09:11 Dose: 5 mg Pantoprazole Sodium (Protonix Inj) 40 mg IVP DAILY [facility] Last Admin: 10/20/16 09:12 Dose: 40 mg Thiamine HCl (Vitamin B1 Tab) 100 mg PO DAILY [facility] Last Admin: 10/20/16 09:12 Dose: 100 mg Vitamin A (Vitamin A & D Oint Ud Foilpak) 1 ea TOP DAILY [facility] Last Admin: 10/20/16 09:12 Dose: 1 ea Vitamin B Complex/Vit C/Folic Acid (Nephro-Mariann) 1 tab PO 0800 [facility] Last Admin: 10/20/16 09:00 Dose: 1 tab - Labs Labs: 10/20/16 06:30 10/20/16 06:30 PT 16.7 Seconds (9.9-11.8) H 10/20/16 09:35 INR 1.55 (0.93-1.08) H 10/20/16 09:35 APTT 36.5 Seconds (23.7-30.8) H 10/20/16 09:35 - Head Exam Head Exam: ATRAUMATIC, NORMAL INSPECTION, NORMOCEPHALIC - Eye Exam Eye Exam: EOMI, Normal appearance, PERRL Pupil Exam: NORMAL ACCOMODATION, PERRL. absent: Irregular - ENT Exam ENT Exam: Mucous Membranes Moist - Neck Exam Additional comments: Trach placed. - Respiratory Exam Respiratory Exam: Clear to Ausculation Bilateral, NORMAL BREATHING PATTERN. absent: Accessory Muscle Use, Chest Wall Tenderness, Respiratory Distress - Cardiovascular Exam Cardiovascular Exam: REGULAR RHYTHM, RRR, +S1, +S2. absent: Gallop, Rubs - GI/Abdominal Exam GI & Abdominal Exam: Firm, Normal Bowel Sounds. absent: Guarding, Rigid, Soft, Tenderness Additional comments: Abdomen firmer than previous day noted. - Back Exam Back Exam: NORMAL INSPECTION. absent: paraspinal tenderness - Neurological Exam Neurological Exam: Altered, Oriented x3. absent: Alert, Awake, CN II-XII Intact - Skin Skin Exam: Mottled Assessment and Plan - Assessment and Plan (Free Text) Assessment: 56 year old male with an initial presentation of AMS in the setting of persistent hypokalemia and alcohol withdrawal, which resolved. Patient was then intubated after he was found to be in hypercapnic respiratory failure and subsequently became hemodynamically unstable requiring dual vasopressor support. His presentation is consistent with distributive shock likely from either acute decompensated chronic liver failure or sepsis from C. Diff colitis , with multiorgan dysfunction syndrome including renal failure, encephalopathy and respiratory failure. Patient is no longer requiring vasopressin or levophed for hemodynamic support but is on midodrine. Patient is currently unresponsive to verbal or tactile stimuli off of sedation. Patient is has been transitioned from PRVC to PS/CPAP Plan: Pulmonary: Hypercapnic Respiratory Failure -Patient intubated on 10/05. Today: FiO2= 60%, RR=26, PEEP+5, and Tidal Volume + 400 ml, O2 saturation+97% -ABG: pCO2+43, pO2+97, pH+7.27 -s/p Trach Day 1. -Patient hypotension slightly (111/71) and remains off pressors. -Cardio following -CXR shows no active pulmonary disease. -Continue to monitor vital signs. -Continue Duonebs 3ml IHQ6 HRESP for wheezing symptoms. -Expected to go to an acute facility pending approval from insurance. Renal: Acute renal failure most likely secondary to glomerulonephritis -BUN 96(down from 92) and Creatinine is 2.4(same as previous day). -Urine total protein-897 and Urine Microalbumin >950. -Nephrology consult note appreciated. -No acute indications for HD at this time. Urine output remains steady. -Nephrology consult note appreciate- Hematology: Thrombocytopenia -Plt count now 105(down from 112) s/p 4 units of Platelets transfused. Continue to monitor plt count and consider another transfusion if patient drops below 20. -Patient currently has no active bleeds. Monitor for bleeding. EtOh Withdrawal -Continue Ativan 2mg IVP Q2H PRN for alcohol withdrawal symptoms. -Continue Thiamine, Folic acid and MV supplementation Ascites -s/p ascitic fluid removed on 10/05. -culture growth negative after 6 days. -MELDS score of 20: 19.3% Mortality risk in 3 month time period. GI: Hepatic encephalopathy -Continue Rifaxamin, Lactulose -Rectal tube in place and currently draining 800-900 cc per shift per nursing staff. -Scheduled to have gastrostomy tube placed on 10/[address] Ronquillo. Anemia -Stool occult blood positive on 10/05. -Hgb is 7.6(down from 9.2) and Hct is 23.5(up from 30.1) Patient is s/p 3 units leukocyte reduced PRBC's. Continue to monitor H/H levels with serial CBC' s. Consider Transfusion if Hgb falls below 7. Sepsis/Fungemia -Grew Kamille Albicans -Sputum culture grew Pseudomonas [place]. -Continue Micafungin (renal dosing) -Patient continues to spike fevers. Started Zyvox and Doxycycline. Will continue to monitor closely. -Continue Merrem, Vancomycin C Diff infection. -Continue Vancomycin -Repeat stool sample. Hypokalemia -Potassium today 3.5. Will continue to replete as needed. Will continue to monitor electrolyte levels with serial cmp's. GI ppx -Continue Protonix DVT ppx. <Zoe GALLEGOS,[facility] - Last Filed: 10/20/16 17:54> Objective - Vital Signs/Intake and Output Vital Signs (last 24 hours): Temp Pulse Resp BP Pulse Ox 97.7 F 94 H 32 H 100/43 L 100 10/20/16 05:00 10/20/16 05:00 10/20/16 00:00 10/20/16 05:00 10/20/16 05:00 - Medications Medications: Current Medications Amikacin Sulfate (Amikacin 500 Mg/2ml Inj) 500 mg IH [id number] [facility] Last Admin: 10/20/16 08:14 Dose: 500 mg Artificial Tears (Artificial Tears Opht Oint) 1 gm OU Q6 [facility] Last Admin: 10/20/16 17:21 Dose: 1 applic Folic Acid (Folic Acid) 1 mg PO DAILY [facility] Last Admin: 10/20/16 09:11 Dose: 1 mg Meropenem 500 mg/ Sodium (Chloride) 100 mls @ 100 mls/hr IVPB Q12 [facility] PRN Reason: Protocol Stop: 10/21/16 07:07 Last Admin: 10/20/16 09:12 Dose: 100 mls/hr Gentamicin Sulfate 270 mg/ (Sodium Chloride) 106.75 mls @ 106.75 mls/hr IVPB ONCE [facility] Last Admin: 10/17/16 11:42 Dose: 106.75 mls/hr Doxycycline Hyclate 100 mg/ (Sodium Chloride) 100 mls @ 100 mls/hr IVPB Q12 [facility] PRN Reason: Protocol Stop: 10/23/16 10:01 Last Admin: 10/20/16 09:15 Dose: 100 mls/hr Micafungin Sodium 100 mg/ (Sodium Chloride) 100 mls @ 100 mls/hr IV DAILY [facility] PRN Reason: Protocol Stop: 10/25/16 10:01 Last Admin: 10/20/16 09:15 Dose: 100 mls/hr Sodium Bicarbonate 150 meq/ (Dextrose) 1,150 mls @ 100 mls/hr IV .[id number] [facility] Last Admin: 10/20/16 13:30 Dose: 100 mls/hr Lactulose (Enulose) 20 gm PO TID [facility] Last Admin: 10/20/16 17:20 Dose: Not Given Metoclopramide HCl (Reglan) 10 mg IVP Q6H PRN PRN Reason: Other Last Admin: 10/18/16 09:19 Dose: 10 mg Midodrine (Proamatine) 5 mg PO TID [facility] Last Admin: 10/20/16 17:20 Dose: Not Given Pantoprazole Sodium (Protonix Inj) 40 mg IVP DAILY [facility] Last Admin: 10/20/16 09:12 Dose: 40 mg Thiamine HCl (Vitamin B1 Tab) 100 mg PO DAILY [facility] Last Admin: 10/20/16 09:12 Dose: 100 mg Vitamin A (Vitamin A & D Oint Ud Foilpak) 1 ea TOP DAILY [facility] Last Admin: 10/20/16 09:12 Dose: 1 ea Vitamin B Complex/Vit C/Folic Acid (Nephro-Mariann) 1 tab PO 0800 [facility] Last Admin: 10/20/16 09:00 Dose: 1 tab - Labs Labs: 10/20/16 06:30 10/20/16 06:30 PT 16.7 Seconds (9.9-11.8) H 10/20/16 09:35 INR 1.55 (0.93-1.08) H 10/20/16 09:35 APTT 36.5 Seconds (23.7-30.8) H 10/20/16 09:35 Attending/Attestation - Attestation I have personally seen and examined this patient.: Yes I have fully participated in the care of the patient.: Yes I have reviewed all pertinent clinical information, including history, physical exam and plan: Yes Notes (Text): 10/20/16 17:50 Patient was seen and examined with medical office worker. 56 year old male with history of alcohol abuse, cirrhosis who was admitted with AMS, was found to be have alcohol intoxication and sepsis,was intubated later on. . He remains intubated and is currently off of sedation , having minimal response now , but mental status is poor. He was also found to have oliguric acute renal failure ,anemia ,thrombocytopenia, SBP,HCAP,~cdiff~and fungemia~ Rectal tube is in. Patient is DNR/ DNI. Patient underwent tracheotomy yesterday, still on FIO 40%, mental status is poor. Renal functions are stable, Nephrology is following. Sepsis on antibiotics as per ID. Prognosis is guarded. 10/20/16 17:52
--- NOTE | 2016-10-20 16:27 | CARD ---
APPROVED REPORT EKG Measurement Heart [id number] AR [id number] [id number] <Conclusion> Sinus tachycardia with short AR Low voltage QRS ST_T Changes.
--- NOTE | 2016-10-20 19:00 | CP.PCM.PN ---
Subjective - Date & Time of Evaluation Date of Evaluation: 10/20/16 Time of Evaluation: 11:00 - Subjective Subjective: Patient still putting out copious liquid stool via flexiseal; Objective - Vital Signs/Intake and Output Vital Signs (last 24 hours): Temp Pulse Resp BP Pulse Ox 97.7 F 93 H 32 H 108/63 99 10/20/16 18:30 10/20/16 18:30 10/20/16 00:00 10/20/16 18:00 10/20/16 18:30 - Medications Medications: Current Medications Amikacin Sulfate (Amikacin 500 Mg/2ml Inj) 500 mg [facility]H [id number] Last Admin: 10/20/16 08:14 Dose: 500 mg Artificial Tears (Artificial Tears Opht Oint) 1 gm OU Q6 [facility] Last Admin: 10/20/16 17:21 Dose: 1 applic Folic Acid (Folic Acid) 1 mg PO DAILY [facility] Last Admin: 10/20/16 09:11 Dose: 1 mg Meropenem 500 mg/ Sodium (Chloride) 100 mls @ 100 mls/hr IVPB Q12 [facility] PRN Reason: Protocol Stop: 10/21/16 07:07 Last Admin: 10/20/16 09:12 Dose: 100 mls/hr Gentamicin Sulfate 270 mg/ (Sodium Chloride) 106.75 mls @ 106.75 mls/hr IVPB ONCE [facility] Last Admin: 10/17/16 11:42 Dose: 106.75 mls/hr Doxycycline Hyclate 100 mg/ (Sodium Chloride) 100 mls @ 100 mls/hr IVPB Q12 [facility] PRN Reason: Protocol Stop: 10/23/16 10:01 Last Admin: 10/20/16 09:15 Dose: 100 mls/hr Micafungin Sodium 100 mg/ (Sodium Chloride) 100 mls @ 100 mls/hr IV DAILY [facility] PRN Reason: Protocol Stop: 10/25/16 10:01 Last Admin: 10/20/16 09:15 Dose: 100 mls/hr Sodium Bicarbonate 150 meq/ (Dextrose) 1,150 mls @ 100 mls/hr IV .[id number] [facility] Last Admin: 10/20/16 13:30 Dose: 100 mls/hr Lactulose (Enulose) 20 gm PO TID [facility] Last Admin: 10/20/16 17:20 Dose: Not Given Metoclopramide HCl (Reglan) 10 mg IVP Q6H PRN PRN Reason: Other Last Admin: 10/18/16 09:19 Dose: 10 mg Midodrine (Proamatine) 5 mg PO TID [facility] Last Admin: 10/20/16 17:20 Dose: Not Given Pantoprazole Sodium (Protonix Inj) 40 mg IVP DAILY [facility] Last Admin: 10/20/16 09:12 Dose: 40 mg Thiamine HCl (Vitamin B1 Tab) 100 mg PO DAILY [facility] Last Admin: 10/20/16 09:12 Dose: 100 mg Vitamin A (Vitamin A & D Oint Ud Foilpak) 1 ea TOP DAILY [facility] Last Admin: 10/20/16 09:12 Dose: 1 ea Vitamin B Complex/Vit C/Folic Acid (Nephro-Mariann) 1 tab PO 0800 [facility] Last Admin: 10/20/16 09:00 Dose: 1 tab - Labs Labs: 10/20/16 06:30 10/20/16 06:30 PT 16.7 Seconds (9.9-11.8) H 10/20/16 09:35 INR 1.55 (0.93-1.08) H 10/20/16 09:35 APTT 36.5 Seconds (23.7-30.8) H 10/20/16 09:35 - Constitutional Appears: No Acute Distress - Head Exam Head Exam: NORMAL INSPECTION - ENT Exam ENT Exam: Mucous Membranes Moist - Respiratory Exam Respiratory Exam: Clear to Ausculation Bilateral - Cardiovascular Exam Cardiovascular Exam: +S1, +S2 - GI/Abdominal Exam GI & Abdominal Exam: Distended, Soft - Exam Exam: Scrotal Swelling - Extremities Exam Additional comments: moderately edematous - Skin Skin Exam: Warm. absent: Cyanosis Assessment and Plan (1) Acute renal failure Assessment & Plan: Multifactorial at this point (likely underlying GN, ATN, pre-renal); BUN increasing; will increase volume replenishment; -changing IVF to D5W w/ 150 meq NaHCO3 at 100 cc/hr Status: Acute (2) Acute hypercapnic respiratory failure Assessment & Plan: Still tachypneic; now s/p trach; bicarb replenishment may help improve pH although can possibly worsen hypercapnea; Status: Acute (3) Hypokalemia Status: Acute (4) Hypocalcemia Status: Resolved (5) SIRS (systemic inflammatory response syndrome) Assessment & Plan: Started on inhaled amikacin, no renal objection; continue to hold genta until trough level < 2 (restart only if needed); Status: Acute (6) Hypernatremia Status: Acute
[2016-10-20 19:46] LABS: CALCIUM 7.2 mg/dL (8.4-10.5); POTASSIUM 4.7 mmol/L (3.6-5.0)
--- NOTE | 2016-10-21 06:46 | CP.PCM.PN ---
Subjective - Date & Time of Evaluation Date of Evaluation: 10/21/16 Time of Evaluation: 05:15 - Subjective Subjective: General surgery progress note for Dr. Stanton Dimas, PGY-1 Pt S & E at bedside. Pt is non-verbal, opening eyes, tracking, does not follow simple commands, on trach collar, no acute events overnight as per nursing. Objective - Vital Signs/Intake and Output Vital Signs (last 24 hours): Temp Pulse Resp BP Pulse Ox 98.3 F 76 32 H 109/62 99 10/21/16 00:00 10/21/16 03:00 10/20/16 00:00 10/21/16 02:00 10/21/16 03:00 Intake and Output: 10/20/16 10/21/16 18:59 06:59 Intake Total 350 1400 Output Total 580 1100 Balance -230 300 - Medications Medications: Current Medications Amikacin Sulfate (Amikacin 500 Mg/2ml Inj) 500 mg IH [id number] [facility] Last Admin: 10/20/16 21:00 Dose: 500 mg Artificial Tears (Artificial Tears Opht Oint) 1 gm OU Q6 [facility] Last Admin: 10/20/16 17:21 Dose: 1 applic Folic Acid (Folic Acid) 1 mg PO DAILY [facility] Last Admin: 10/20/16 09:11 Dose: 1 mg Meropenem 500 mg/ Sodium (Chloride) 100 mls @ 100 mls/hr IVPB Q12 [facility] PRN Reason: Protocol Stop: 10/21/16 07:07 Last Admin: 10/20/16 22:09 Dose: 100 mls/hr Gentamicin Sulfate 270 mg/ (Sodium Chloride) 106.75 mls @ 106.75 mls/hr IVPB ONCE [facility] Last Admin: 10/17/16 11:42 Dose: 106.75 mls/hr Doxycycline Hyclate 100 mg/ (Sodium Chloride) 100 mls @ 100 mls/hr IVPB Q12 [facility] PRN Reason: Protocol Stop: 10/23/16 10:01 Last Admin: 10/20/16 22:08 Dose: 100 mls/hr Micafungin Sodium 100 mg/ (Sodium Chloride) 100 mls @ 100 mls/hr IV DAILY [facility] PRN Reason: Protocol Stop: 10/25/16 10:01 Last Admin: 10/20/16 09:15 Dose: 100 mls/hr Sodium Bicarbonate 150 meq/ (Dextrose) 1,150 mls @ 100 mls/hr IV .[id number] [facility] Last Admin: 10/20/16 20:58 Dose: 100 mls/hr Lactulose (Enulose) 20 gm PO TID [facility] Last Admin: 10/20/16 17:20 Dose: Not Given Metoclopramide HCl (Reglan) 10 mg IVP Q6H PRN PRN Reason: Other Last Admin: 10/18/16 09:19 Dose: 10 mg Midodrine (Proamatine) 5 mg PO TID [facility] Last Admin: 10/20/16 17:20 Dose: Not Given Pantoprazole Sodium (Protonix Inj) 40 mg IVP DAILY [facility] Last Admin: 10/20/16 09:12 Dose: 40 mg Thiamine HCl (Vitamin B1 Tab) 100 mg PO DAILY [facility] Last Admin: 10/20/16 09:12 Dose: 100 mg Vitamin A (Vitamin A & D Oint Ud Foilpak) 1 ea TOP DAILY [facility] Last Admin: 10/20/16 09:12 Dose: 1 ea Vitamin B Complex/Vit C/Folic Acid (Nephro-Mariann) 1 tab PO 0800 [facility] Last Admin: 10/20/16 09:00 Dose: 1 tab - Labs Labs: 10/20/16 06:30 10/20/16 18:38 PT 16.7 Seconds (9.9-11.8) H 10/20/16 09:35 INR 1.55 (0.93-1.08) H 10/20/16 09:35 APTT 36.5 Seconds (23.7-30.8) H 10/20/16 09:35 - Constitutional Appears: No Acute Distress, Cachectic, Chronically Ill - Head Exam Head Exam: ATRAUMATIC, NORMAL INSPECTION, NORMOCEPHALIC - Eye Exam Eye Exam: EOMI, Normal appearance - ENT Exam ENT Exam: Mucous Membranes Dry - Neck Exam Neck Exam: absent: Full ROM - Respiratory Exam Respiratory Exam: NORMAL BREATHING PATTERN. absent: Clear to Ausculation Bilateral (coarse expiratory breath sounds) Additional comments: tracheostomy in place with copious secretions, ecchymoses of surrounding area - Cardiovascular Exam Cardiovascular Exam: REGULAR RHYTHM, +S1, +S2 - GI/Abdominal Exam GI & Abdominal Exam: Distended, Hypoactive Bowel Sounds. absent: Firm, Guarding , Rigid, Soft, Tenderness - Exam Exam: Scrotal Swelling - Extremities Exam Extremities Exam: Pedal Edema. absent: Normal Inspection (B/L edema of upper extremities and lower extremities, 2+ pitting) - Neurological Exam Neurological Exam: Alert, Awake. absent: Oriented x3 Additional comments: non verbal, tracks with eyes - Psychiatric Exam Additional comments: unable to assess - Skin Skin Exam: absent: Dry (weeping), Normal Color Additional comments: multiple areas of ecchymoses, blisters, weeping lesions, superficial skin lesions Assessment and Plan - Assessment and Plan (Free Text) Assessment: 56M w/ESRD and encephalopathy POD#2 s/p trachostomy w/ENT without feeding access Plan: Per SW- pt to be made hospice, pt no longer needing G tube For G Tube placement on Sunday No surgical intervention if placed on hospice Will YEISON attending Judie, PGY-1
[2016-10-21] MEDS: AMIKACIN 500 MG/2 ML IH SCH ×2 (07:21→20:20)
[2016-10-21] MEDS: Mineral Oil/Petrolatum Opht Oint(3.5 gm) OU SCH ×3 (07:59→17:33)
[2016-10-21] MEDS: Multivitamin Vitamin B Complex (Nephro-Vite) Tab PO SCH (08:02)
[2016-10-21] MEDS: Sodium Bicarbonate 8.4% 150 MEQ in Dextrose 5% In Water 1,000 ML IV SCH ×2 (08:53→21:11)
[2016-10-21] MEDS: Micafungin 100 MG in Sodium Chloride 0.9% 100 ML IV SCH (09:12)
[2016-10-21] MEDS: Meropenem 500 MG in Sodium Chloride 0.9% 100 ML IVPB SCH ×2 (09:12→21:10)
[2016-10-21] MEDS: Vitamins A & D Oint UD Foilpak TOP SCH (10:00)
--- NOTE | 2016-10-21 10:21 | PN ---
DATE: 10/21/2016 SUBJECTIVE: The patient is trached on the vent; overall in poor condition. No fevers have been reported. PHYSICAL EXAMINATION: VITAL SIGNS: Temperature is 97.3, blood pressure is 101/50, respiratory rate on the vent, and heart rate of 86. HEENT: Unremarkable. NECK: Supple. LUNGS: Decreased breath sounds. HEART: Normal S1 and S2. ABDOMEN: Soft and nontender. No organomegaly. No rebound. No guarding. No masses. LABORATORY DATA: Reveals a white count of 6.1, hemoglobin of 7, and platelets of 105. Chemistries reveals a BUN of 102 and creatinine of 2.3 and last procalcitonin is 1.44. Microbiology reveals urine cultures are negative, blood cultures are negative. The sputum has pseudomonas aeruginosa. The patient has been started on aerosolized amikacin by Dr. Hinojosa and the patient is also on IV doxycycline. The patient is also on micafungin, meropenem was discontinued by pharmacy. ASSESSMENT AND PLAN: This is a 56-year-old male with severe sepsis, ventilator dependent respiratory failure, respiratory acidosis, acute renal failure, developed tom albicans fungemia on top of colitis with spontaneous bacterial peritonitis, liver cirrhosis and alcohol abuse with pseudomonas healthcare-associated pneumonia on day #7 of meropenem and doxycycline and on day #14 of Mycamine, the patient is trached and the patient is also on aerosolized amikacin, started by Dr. Hinojosa. Overall prognosis is quite poor. Nehemiah Aguilar MD
--- NOTE | 2016-10-21 13:28 | CP.CCUPN ---
<KENDY FALK - Last Filed: 10/21/16 13:04> CCU Subjective - Physician Review Subjective (Free Text): 10/21/16 13:28 Patient was seen and assessed at bedside. Patient intubated on PRVC mode and without sedation, however patient continues to be unresponsive to verbal, tactile and painful stimuli. Patient family at bedside and discussions with [facility] have been taking place. No decision has been made, per family. No other acute events were noted. ROS unobtainable due to clinical condition of patient. CCU Objective - Vital Signs / Intake & Output Vital Signs (Last 4 hours): Vital Signs Temp Pulse Resp BP Pulse Ox 10/21/16 12:30 97.5 F L 88 100 10/21/16 12:00 97.3 F L 87 22 103/61 100 10/21/16 11:30 97.3 F L 82 100 10/21/16 11:00 97.3 F L 83 99/67 L 99 10/21/16 10:30 97.2 F L 84 99 10/21/16 10:00 97.2 F L 85 108/68 99 10/21/16 09:30 97.2 F L 87 100 Intake and Output (Last 8hrs): Intake & Output 10/20/16 10/21/16 10/21/16 22:59 06:59 14:59 Intake Total 350 1400 Output Total 580 1100 Balance -230 300 Intake: IV 1400 Right Forearm 1200 Right Hand 200 Tube Feeding 350 Output: Urine 280 400 Urethral (Vyas) 280 400 Stool 700 Urine/Stool Mix 300 - Physical Exam Head: Positive for: Atraumatic, Normocephalic Pupils: Positive for: PERRL, Sluggish Extroacular Muscles: Positive for: EOMI Conjunctiva: Positive for: Normal Ears: Positive for: Normal Mouth: Positive for: Moist Mucous Membranes, Other Nose (External): Positive for: Atraumatic Nose (Internal): Positive for: Other (Dobbhoff tube in position in L nares) Neck: Positive for: Normal Range of Motion, Trachea Midline, Other ( Tracheostomy insertion site without signs of infection; scattered bruising and ecchymosis from trach placement). Negative for: Lymphadenopathy Respiratory/Chest: Positive for: Clear to Auscultation, Good Air Exchange, Tachypneic, Other (Mechanical ventilation). Negative for: Respiratory Distress , Accessory Muscle Use, Wheezes, Decreased Breath Sounds, Retracting, Rhonchi Cardiovascular: Positive for: Regular Rate and Rhythm, Normal S1, S2. Negative for: Murmurs Abdomen: Positive for: Normal Bowel Sounds, Other (Paracentesis site with sutures, no signs of infection, dressing clean, dry and intact; shifting dullness). Negative for: Tenderness, Distention, Peritoneal Signs Genitourinary Male: Positive for: Other (Vyas in place, no signs of infection) . Negative for: Testicle Swelling Back: Positive for: Normal Inspection Upper Extremity: Positive for: Edema (1+ pitting edema B/L UE). Negative for: Normal Inspection (Multiple areas of ecchymoses), Cyanosis Lower Extremity: Positive for: Edema (1+ Pitting edema B/L up to thighs). Negative for: Normal Inspection Neurological: Positive for: Other (Gag and corneal reflex intact; ability to track motion with eyes intact). Negative for: GCS=15 (GCS of 3T), CN II-XII Intact, Speech Normal Skin: Positive for: Warm, Other (Area of erythema on the presacral area of the lower back measuring approximately 2-3cm with no skin ulceration; currently unstageable ). Negative for: Rashes, Normal Color (multiple ecchymoses over UE B/L) Psychiatric: Negative for: Alert (arousable to tactile stimuli), Oriented x 3, Normal Insight, Normal Concentration - Medications Active Medications: Active Medications Generic Name Dose Route Start Last Admin Trade Name Freq PRN Reason Stop Dose Admin Amikacin Sulfate 500 mg 10/19/16 20:00 10/21/16 07:21 Amikacin 500 Mg/2ml Inj IH 500 mg [id number] TONI Administration Artificial Tears 1 gm 10/10/16 18:00 10/21/16 07:59 Artificial Tears Opht Oint OU 1 applic Q6 TONI Administration Folic Acid 1 mg 10/03/16 10:00 10/21/16 09:58 Folic Acid PO Not Given DAILY TONI Gentamicin Sulfate 270 mg/ 106.75 mls @ 106.75 mls/hr 10/15/16 10:00 11:42 Sodium Chloride IVPB 106.75 mls/hr ONCE TONI Administration Doxycycline Hyclate 100 mg/ 100 mls @ 100 mls/hr 10/16/16 10:00 10/21/16 11: 25 Sodium Chloride IVPB 10/23/16 10:01 100 mls/hr Q12 TONI Administration Protocol Micafungin Sodium 100 mg/ 100 mls @ 100 mls/hr 10/18/16 10:00 10/21/16 09:12 Sodium Chloride IV 10/25/16 10:01 100 mls/hr DAILY TONI Administration Protocol Sodium Bicarbonate 150 meq/ 1,150 mls @ 100 mls/hr 10/20/16 10:15 10/21/16 08 :53 Dextrose IV 100 mls/hr .[id number] TONI Administration Meropenem 500 mg/ Sodium 100 mls @ 100 mls/hr 10/21/16 10:00 10/21/16 09:12 Chloride IVPB 10/30/16 10:01 100 mls/hr Q12 TONI Administration Protocol Lactulose 20 gm 10/11/16 10:00 10/21/16 09:58 Enulose PO Not Given TID [facility] Metoclopramide HCl 10 mg 10/09/16 16:56 10/18/16 09:19 Reglan IVP 10 mg Q6H PRN Administration Other Midodrine 5 mg 10/09/16 10:00 10/21/16 11:33 Proamatine PO Not Given TID [facility] Pantoprazole Sodium 40 mg 10/03/16 10:00 10/21/16 10:00 Protonix Inj IVP 40 mg DAILY TONI Administration Thiamine HCl 100 mg 10/03/16 10:00 10/21/16 09:58 Vitamin B1 Tab PO Not Given DAILY [facility] Vitamin A 1 ea 10/03/16 10:00 10/21/16 10:00 Vitamin A & D Oint Ud Foilpak TOP 1 ea DAILY [facility] Administration Vitamin B Complex/Vit C/Folic Acid 1 tab 10/03/16 08:00 10/21/16 08:02 Nephro-Mariann PO Not Given 0800 [facility] - Patient Studies Lab Studies: Microbiology Studies 10/16/16 11:25 Blood Culture - Final Blood-Venous NO GROWTH AFTER 5 DAYS Gram Stain - Final TEST NOT PERFORMED 10/16/16 11:00 Blood Culture - Final Blood-Venous NO GROWTH AFTER 5 DAYS Gram Stain - Final TEST NOT PERFORMED Lab Studies 10/20/16 Range/Units 18:38 Sodium 135 (132-148) mmol/L Potassium 4.7 (3.6-5.0) mmol/L Chloride 109 (95-110) mmol/L Carbon Dioxide 17 L (21-33) mmol/L Anion Gap 14 (10-20) BUN 102 H (7-21) mg/dL Creatinine 2.3 H (0.5-1.4) mg/dL Est GFR ( Amer) 36 Est GFR (Non-Af Amer) 30 Random Glucose 93 (70-110) mg/dL Calcium 7.2 L (8.4-10.5) mg/dL Laboratory Results - last 24 hr 10/20/16 18:38 Sodium 135 Potassium 4.7 Chloride 109 Carbon Dioxide 17 L Anion Gap 14 BUN 102 H Creatinine 2.3 H Est GFR ( Amer) 36 Est GFR (Non-Af Amer) 30 Random Glucose 93 Calcium 7.2 L Fingerstick Blood Sugar Results: 105 Critical Care Progress Note - Ventilator Checklist Head of Bed 30 Degrees: Yes Daily Sedation Vacation: Yes PUD Prophalyxis: Yes DVT Prophylaxis: Yes - Vent Settings MODE:: PRVC - Extremities/Vascular Does the Patient have a Central Venous Catheter?: No Does the Patient need a Central Venous Catheter?: No Does the Patient have a Vyas Catheter?: Yes Does the Patient need a Vyas Catheter?: Yes - Prophylaxis GI Prophylaxis GI: PPI - Prophylaxis DVT Prophylaxis DVT: SCDs Assessment/Plan - Assessment and Plan (Free Text) Assessment: 56 year old male with an initial presentation of AMS in the setting of persistent hypokalemia and alcohol withdrawal, which resolved. Patient was then intubated after he was found to be in hypercapnic respiratory failure and subsequently became hemodynamically unstable requiring dual vasopressor support. His presentation is consistent with distributive shock likely from either acute decompensated chronic liver failure or sepsis from C. Diff colitis , with multiorgan dysfunction syndrome including renal failure, encephalopathy and respiratory failure. Patient is no longer requiring vasopressin or levophed for hemodynamic support but is on midodrine. Patient is currently unresponsive to verbal or tactile stimuli off of sedation. Patient currently on PRVC and is s /p tracheostomy placement on 10/19. Plan: Neuro: -CT head showed on 10/02 no acute findings in the brain and no acute hemorrhages or infarcts, age related cortical atrophy and ventriculomegaly -Repeat CT head done on 10/11 and 10/16 showed no acute intracranial pathology with no interval changes. -EEG done on 10/14 showed severe bihemispheric cerebral dysfunction with no epileptiform activity -Current GCS of 6 ([id number]) -Currently intubated with no sedation and unresponsive to verbal, tactile or painful stimuli -Continue Lactulose 20mg TID -Continue Thiamine, Folic Acid and MV supplementation Pulm: Mechanical ventilation settings on [facility] currently at: FiO2-40 PEEP-5 RR-30 TV-400 -Chest X-Ray on 10/18 showed new right lower lobe infiltrate questionable for pneumonia versus atelectasis -S/p tracheostomy placement on 10/19 -Continue Amikacin 500mg IH [id number] for pseudomonas tracheobronchtits -Continue protective lung ventilation strategy and VAP prevention strategies, including maintaining HOB greater that 35 degrees, oral hygiene, chlorhexidine in the posterior pharynx and GI/DVT prophylaxis -Continue daily PS/CPAP weaning trials as tolerated -Continue Duonebs 3ml IH [id number] for wheezing -ENT consulted, all recommendations appreciated Cardio: -ECHO done on 10/10 showed LVEF of 55% with poor visualization of the valvular structures due to poor ECHO window and to consider MARILUZ if clinically indicated -EKG done on 10/19 shows sinus tachycardia at a rate of 105 and low voltage QRS with a non-specific t-wave abnormality -Continue midodrine 5mg PO TID -Cardiology consulted, appreciate all recommendations GI: -CT abdomen/pelvis done on 10/04 showed possible sigmoid colitis, mild-to- moderate abdominal and pelvic ascites, free intrarenal gas or definite bowel obstruction, and hepatosplenomegaly again identified as well as diffuse fatty infiltration of liver -Approximately 2.5L of fluid removed via paracentesis on 10/05 with appropriate albumin resuscitation provided -Ascites predominantly lymphocytic and cytology showing no malignancy -Gastrostomy tube placement scheduled for 10/23 -Continue Vital AF 1.2 TF at 30mls/hr -Continue Lactulose 20mg TID -Continue Reglan 10mg IVP Q6H PRN -Rectal tube in place and currently draining 700cc over the past 24 hours -GI and Surgery consulted, all recommendations appreciated Renal: -BUN/Creatinine at 102/2.3, representing improvement of acute kidney injury -Continue D5W drip with 100meq of Bicarb 100mls/hr, per nephrology -Continue free water flushes 150ml Q6H as tolerated -Vyas catheter in place and draining 680cc over the past 24 hours -Will continue to replete calcium, magnesium, phosphorus and potassium as needed -Will continue to monitor with serial CMP's with magnesium and phosphorous levels -Nephrology consulted, all recommendations appreciated Endocrine: -Will maintain euglycemia with blood glucose between 140 and 180 Heme/Onc: -H/H stable at 7.6/23.5, on 10/20 -Platelets 105 -Will continue to monitor with serial CBC's MSK: -Area of erythema on presacral area measuring approximately 2cm with no skin breakage -Continue to turn patient Q2H to prevent ulceration and air mattress -PT/OT evaluation and treatment ordered, stated that they will see patient when he is more clinically appropriate for therapy ID: -Currently on Amikacin 500mg IH [id number] (Day 2), Micafungin 100mg IV daily (day 14), Merrem 250mg IVPB Q12 (day 16), and Doxycycline 100mg IVPB Q12 (Day 4); Gentamycin at 106.75mls/hr IVPB (Day 4) (currently held as trough was elevated to 7.5) -Currently afebrile, normotensive, and non-tachycardic with no leukocytosis -Most recent blood and urine cultures negative for growth for 4 days -Sputum culture drawn on 10/14 grew Pseudomonas Aeruginosa, susceptible to Merrem and Gentamycin -Previous blood, sputum and urine cultures drawn on 10/05 grew Mellisa Albicans -C. 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 SOFA score of 9, which is correlated with a predicted mortality of 40- 50%. 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 Hospice currently being considered Patient seen and case discussed in detail with attending, Dr. Groves. - Date & Time Date: 10/21/16 Time: 13:04 <Rafael Groves - Last Filed: 10/21/16 13:43> CCU Objective - Vital Signs / Intake & Output Vital Signs (Last 4 hours): Vital Signs Temp Pulse Resp BP Pulse Ox 10/21/16 13:30 97.7 F 89 100 10/21/16 13:00 97.5 F L 84 100/68 100 10/21/16 12:30 97.5 F L 88 100 10/21/16 12:00 97.3 F L 87 22 103/61 100 10/21/16 11:30 97.3 F L 82 100 10/21/16 11:00 97.3 F L 83 99/67 L 99 10/21/16 10:30 97.2 F L 84 99 10/21/16 10:00 97.2 F L 85 108/68 99 Intake and Output (Last 8hrs): Intake & Output 10/20/16 10/21/16 10/21/16 22:59 06:59 14:59 Intake Total 350 1400 Output Total 580 1100 Balance -230 300 Intake: IV 1400 Right Forearm 1200 Right Hand 200 Tube Feeding 350 Output: Urine 280 400 Urethral (Vyas) 280 400 Stool 700 Urine/Stool Mix 300 - Medications Active Medications: Active Medications Generic Name Dose Route Start Last Admin Trade Name Freq PRN Reason Stop Dose Admin Amikacin Sulfate 500 mg 10/19/16 20:00 10/21/16 07:21 Amikacin 500 Mg/2ml Inj IH 500 mg [id number] TONI Administration Artificial Tears 1 gm 10/10/16 18:00 10/21/16 07:59 Artificial Tears Opht Oint OU 1 applic Q6 TONI Administration Folic Acid 1 mg 10/03/16 10:00 10/21/16 09:58 Folic Acid PO Not Given DAILY [facility] Gentamicin Sulfate 270 mg/ 106.75 mls @ 106.75 mls/hr 10/15/16 10:00 11:42 Sodium Chloride IVPB 106.75 mls/hr ONCE TONI Administration Doxycycline Hyclate 100 mg/ 100 mls @ 100 mls/hr 10/16/16 10:00 10/21/16 11: 25 Sodium Chloride IVPB 10/23/16 10:01 100 mls/hr Q12 TONI Administration Protocol Micafungin Sodium 100 mg/ 100 mls @ 100 mls/hr 10/18/16 10:00 09/16/17 09:12 Sodium Chloride IV 10/25/16 10:01 100 mls/hr DAILY TONI Administration Protocol Sodium Bicarbonate 150 meq/ 1,150 mls @ 100 mls/hr 10/20/16 10:15 10/21/16 08 :53 Dextrose IV 100 mls/hr .[id number] TONI Administration Meropenem 500 mg/ Sodium 100 mls @ 100 mls/hr 10/21/16 10:00 10/21/16 09:12 Chloride IVPB 10/30/16 10:01 100 mls/hr Q12 TONI Administration Protocol Lactulose 20 gm 10/11/16 10:00 10/21/16 13:33 Enulose PO Not Given TID TONI Metoclopramide HCl 10 mg 10/09/16 16:56 10/18/16 09:19 Reglan IVP 10 mg Q6H PRN Administration Other Midodrine 5 mg 10/09/16 10:00 10/21/16 13:33 Proamatine PO Not Given TID TONI Pantoprazole Sodium 40 mg 10/03/16 10:00 10/21/16 10:00 Protonix Inj IVP 40 mg DAILY TONI Administration Thiamine HCl 100 mg 10/03/16 10:00 10/21/16 09:58 Vitamin B1 Tab PO Not Given DAILY [facility] Vitamin A 1 ea 10/03/16 10:00 10/21/16 10:00 Vitamin A & D Oint Ud Foilpak TOP 1 ea DAILY TONI Administration Vitamin B Complex/Vit C/Folic Acid 1 tab 10/03/16 08:00 10/21/16 08:02 Nephro-Mariann PO Not Given 0800 [facility] - Patient Studies Lab Studies: Microbiology Studies 10/16/16 11:25 Blood Culture - Final Blood-Venous NO GROWTH AFTER 5 DAYS Gram Stain - Final TEST NOT PERFORMED 10/16/16 11:00 Blood Culture - Final Blood-Venous NO GROWTH AFTER 5 DAYS Gram Stain - Final TEST NOT PERFORMED Lab Studies 10/20/16 Range/Units 18:38 Sodium 135 (132-148) mmol/L Potassium 4.7 (3.6-5.0) mmol/L Chloride 109 (95-110) mmol/L Carbon Dioxide 17 L (21-33) mmol/L Anion Gap 14 (10-20) BUN 102 H (7-21) mg/dL Creatinine 2.3 H (0.5-1.4) mg/dL Est GFR ( Amer) 36 Est GFR (Non-Af Amer) 30 Random Glucose 93 (70-110) mg/dL Calcium 7.2 L (8.4-10.5) mg/dL Laboratory Results - last 24 hr 10/20/16 18:38 Sodium 135 Potassium 4.7 Chloride 109 Carbon Dioxide 17 L Anion Gap 14 BUN 102 H Creatinine 2.3 H Est GFR ( Amer) 36 Est GFR (Non-Af Amer) 30 Random Glucose 93 Calcium 7.2 L Assessment/Plan - Assessment and Plan (Free Text) Plan: Patient seen and examined on rounds, case discussed with Dr Falk, agree with note, A/P. Pt remains on PRVC via trach, opens eyes, does not follow commands. CT head done 10/16 with no acute intracranial pathology. Family awaiting decision for [facility] plans, L tach vs hospice. Respiratory Failure Fungemia EtOh abuse Chronic Liver disease Metabolic Encephalopathy Renal Failure Pseudomonas sputum C diff Recommend: - cont with ventilatory support, with pressure support trials - abx as per ID - cont wiht midodrine - insert feeding tube, NGT - Duoenbs - monitor HH - GI ppx - DVT ppx - halfway planning - poor prognosis
--- NOTE | 2016-10-21 15:22 | PN ---
DATE: Adrian Kruger seen with, I believe, the . Seems to be waking up a bit and the discussion of hospice is on hold. We plan to go forward with open gastrostomy on Sunday. Adrian Ronquillo MD
--- NOTE | 2016-10-21 15:38 | PN ---
NEPHROLOGY FOLLOWUP NOTE SUBJECTIVE: A 56-year-old male with past medical history of alcohol abuse, admitted with alcohol withdrawal. Hospital course complicated by SIRS/sepsis, acute hypercapnic and hypoxemic respiratory failure and acute renal failure. Nephrology following for acute renal failure. The patient reportedly is more alert, trying to follow commands for family. PHYSICAL EXAMINATION VITAL SIGNS: This afternoon, blood pressure 100/68, heart rate 84, respirations 32, temperature 97.5, O2 sat 100% on 40% FiO2 via mechanical respiration. GENERAL: No distress, opens eyes spontaneously. HEENT: Moist mucous membranes. RESPIRATORY: Lungs clear to auscultation bilaterally. No rales, no rhonchi, no wheezes. HEART: S1 and S2 normal. No murmurs. No gallops. No rubs. GASTROINTESTINAL: Abdomen distended, otherwise soft, nontender. GENITOURINARY: No bladder distention, Vyas in place. EXTREMITIES: Moderately edematous. SKIN: Warm, no cyanosis. NEUROLOGIC: Equivocally following commands. PSYCHIATRIC: Not agitated. LABORATORY DATA: No labs available yet today. ASSESSMENT AND PLAN: 1. Acute renal failure, multifactorial, secondary to possible underlying glomerulonephritis, acute tubular necrosis in the setting of sepsis and prerenal component; The patient is nonoliguric. Renal function has overall improved, although we still have uremia significant enough to contribute to altered mental status. No indication for renal replacement therapy at this time. We will continue isotonic IV fluids to correct any prerenal component. 2. Hyponatremia had resolved with yesterday's labs. Continue to monitor as the patient is still having significant liquid stool output through [employer]. 3. Metabolic acidosis, started on bicarb drip yesterday, awaiting repeat chemistries to see if drip should be decreased or discontinued. 4. Hypercapnic respiratory failure. The patient now status post tracheostomy, still tachypneic and breathing over vent monitor. 5. Systemic inflammatory response syndrome/sepsis. The patient getting inhaled amikacin, also on doxycycline and meropenem. Gentamicin on hold after trough levels very high, should continue to hold until trough levels are less than 2 and should only restart if considered essential. No dose adjustment needed for micafungin or doxycycline. Meropenem corrected dose for creatinine clearance less than 30. Rusty Mcnulty MD [facility] # [id number]
--- NOTE | 2016-10-21 17:19 | RAD ---
HISTORY: Dobhoff placement COMPARISON: Comparison chest 10/20/2016 FINDINGS: In situ tracheostomy tube in good position. Feeding tube is present, the tip of which overlies the right parasagittal mid abdomen. LUNGS: Bilateral mid to lower lobe diffuse infiltrates. PLEURA: No significant pleural effusion identified, no pneumothorax apparent. CARDIOVASCULAR: Normal. OSSEOUS STRUCTURES: No significant abnormalities. VISUALIZED UPPER ABDOMEN: Normal. OTHER FINDINGS: None. IMPRESSION: Tracheostomy tube and feeding tube as above. Diffuse bilateral mid to lower lobe infiltrates
--- NOTE | 2016-10-21 19:15 | CP.PCM.PN ---
<Griselda Lai - Last Filed: 10/21/16 19:10> Subjective - Date & Time of Evaluation Date of Evaluation: 10/21/16 Time of Evaluation: 19:10 - Subjective Subjective: Patient has been seen and examined. Patient currently on trach collar. Patient is eye tracking. Was able to follow command to squeeze hand. Objective - Vital Signs/Intake and Output Vital Signs (last 24 hours): Temp Pulse Resp BP Pulse Ox 97.7 F 89 22 100/68 100 10/21/16 13:30 10/21/16 13:30 10/21/16 12:00 10/21/16 13:00 10/21/16 13:30 - Medications Medications: Current Medications Amikacin Sulfate (Amikacin 500 Mg/2ml Inj) 500 mg IH [id number] [facility] Last Admin: 10/21/16 07:21 Dose: 500 mg Artificial Tears (Artificial Tears Opht Oint) 1 gm OU Q6 [facility] Last Admin: 10/21/16 17:33 Dose: 1 applic Folic Acid (Folic Acid) 1 mg PO DAILY [facility] Last Admin: 10/21/16 09:58 Dose: Not Given Gentamicin Sulfate 270 mg/ (Sodium Chloride) 106.75 mls @ 106.75 mls/hr IVPB ONCE [facility] Last Admin: 10/17/16 11:42 Dose: 106.75 mls/hr Doxycycline Hyclate 100 mg/ (Sodium Chloride) 100 mls @ 100 mls/hr IVPB Q12 TONI PRN Reason: Protocol Stop: 10/23/16 10:01 Last Admin: 10/21/16 11:25 Dose: 100 mls/hr Micafungin Sodium 100 mg/ (Sodium Chloride) 100 mls @ 100 mls/hr IV DAILY [facility] PRN Reason: Protocol Stop: 10/25/16 10:01 Last Admin: 10/21/16 09:12 Dose: 100 mls/hr Sodium Bicarbonate 150 meq/ (Dextrose) 1,150 mls @ 100 mls/hr IV .[id number] [facility] Last Admin: 10/21/16 08:53 Dose: 100 mls/hr Meropenem 500 mg/ Sodium (Chloride) 100 mls @ 100 mls/hr IVPB Q12 TONI PRN Reason: Protocol Stop: 10/30/16 10:01 Last Admin: 10/21/16 09:12 Dose: 100 mls/hr Lactulose (Enulose) 20 gm PO TID [facility] Last Admin: 10/21/16 17:33 Dose: 20 gm Metoclopramide HCl (Reglan) 10 mg IVP Q6H PRN PRN Reason: Other Last Admin: 10/18/16 09:19 Dose: 10 mg Midodrine (Proamatine) 5 mg PO TID [facility] Last Admin: 10/21/16 17:33 Dose: 5 mg Pantoprazole Sodium (Protonix Inj) 40 mg IVP DAILY [facility] Last Admin: 10/21/16 10:00 Dose: 40 mg Thiamine HCl (Vitamin B1 Tab) 100 mg PO DAILY [facility] Last Admin: 10/21/16 09:58 Dose: Not Given Vitamin A (Vitamin A & D Oint Ud Foilpak) 1 ea TOP DAILY [facility] Last Admin: 10/21/16 10:00 Dose: 1 ea Vitamin B Complex/Vit C/Folic Acid (Nephro-Mariann) 1 tab PO 0800 [facility] Last Admin: 10/21/16 08:02 Dose: Not Given - Labs Labs: 10/20/16 06:30 10/20/16 18:38 PT 16.7 Seconds (9.9-11.8) H 10/20/16 09:35 INR 1.55 (0.93-1.08) H 10/20/16 09:35 APTT 36.5 Seconds (23.7-30.8) H 10/20/16 09:35 - Constitutional Appears: No Acute Distress, Chronically Ill - Head Exam Head Exam: ATRAUMATIC, NORMOCEPHALIC - Eye Exam Eye Exam: EOMI - ENT Exam Additional comments: trach collar - Respiratory Exam Respiratory Exam: Clear to Ausculation Bilateral - Cardiovascular Exam Cardiovascular Exam: RRR, +S1, +S2 - GI/Abdominal Exam GI & Abdominal Exam: Soft, Hypoactive Bowel Sounds. absent: Distended, Rigid, Tenderness - Extremities Exam Extremities Exam: Pedal Edema - Neurological Exam Neurological Exam: Awake. absent: Oriented x3 - Psychiatric Exam Psychiatric exam: Flat Affect - Skin Additional comments: Skin - multiple areas of ecchymosis, mottling, blisters, weeping lesions, superficial skin lesions Assessment and Plan - Assessment and Plan (Free Text) Assessment: 56 year old male with an initial presentation of AMS in the setting of persistent hypokalemia and alcohol withdrawal, which resolved. Patient was then intubated after he was found to be in hypercapnic respiratory failure and subsequently became hemodynamically unstable requiring dual vasopressor support. His presentation is consistent with distributive shock likely from either acute decompensated chronic liver failure or sepsis from C. Diff colitis , with multiorgan dysfunction syndrome including renal failure, encephalopathy and respiratory failure. Patient is no longer requiring vasopressin or levophed for hemodynamic support but is on midodrine. Patient is currently responsive to verbal or tactile stimuli off of sedation. Patient is has been transitioned from PRVC to PS/CPAP Plan: Hypercapnic Respiratory Failure -Patient intubated on 10/05. Today: FiO2= 40%, RR=30, PEEP+5, and Tidal Volume + 400 ml, O2 saturation 100% -ABG: pCO2+43, pO2+97, pH+7.27 (10/20) -s/p Trach Day 2. -Patient hypotension slightly (103/61) and remains off pressors. -Cardio following -CXR shows no active pulmonary disease. -Continue to monitor vital signs. -Continue Duonebs 3ml IHQ6 HRESP for wheezing symptoms. -Expected to go to an acute facility pending approval from insurance. Renal: Acute renal failure most likely secondary to glomerulonephritis -BUN 96 and Creatinine is 2.4 yesterday -Urine total protein-897 and Urine Microalbumin >950. Yesterday -Nephrology consult note appreciated. -No acute indications for HD at this time. Urine output remains steady. -Nephrology consult note appreciate- Hematology: Thrombocytopenia -Plt count 105 yesterday (down from 112) s/p 4 units of Platelets transfused. Continue to monitor plt count and consider another transfusion if patient drops below 20. -Patient currently has no active bleeds. Monitor for bleeding. EtOh Withdrawal -Continue Ativan 2mg IVP Q2H PRN for alcohol withdrawal symptoms. -Continue Thiamine, Folic acid and MV supplementation Ascites -s/p ascitic fluid removed on 10/05. -culture growth negative after 6 days. -MELDS score of 20: 19.3% Mortality risk in 3 month time period. GI: Hepatic encephalopathy -Continue Rifaxamin, Lactulose -Rectal tube in place and currently draining 800-900 cc per shift per nursing staff (yesterday). -Scheduled to have gastrostomy tube placed on 10/[address] Ronquillo. Anemia -Stool occult blood positive on 10/05. -Yesterday Hgb is 7.6 Patient is s/p 3 units leukocyte reduced PRBC's. Continue to monitor H/H levels with serial CBC's. Consider Transfusion if Hgb falls below 7. Sepsis/Fungemia -Grew Kamille Albicans -Sputum culture grew Pseudomonas [place]. -Continue Micafungin (renal dosing) -Patient continues to spike fevers. Started Zyvox and Doxycycline. Will continue to monitor closely. -Continue Merrem, Vancomycin C Diff infection. -Continue Vancomycin -Repeat stool sample. Hypokalemia -Potassium yesterday 3.5. Will continue to replete as needed. Will continue to monitor electrolyte levels with serial cmp's. GI ppx -Continue Protonix DVT ppx. Dispo: No labs due to multiple failed sticks. Values in plan are from (2016). Will follow up in any changes in hospice care plans. Patient seen, and reviewed with Attending Griselda Lai PGY-1 <Patrica Bingham - Last Filed: 10/22/16 12:42> Objective - Vital Signs/Intake and Output Vital Signs (last 24 hours): Temp Pulse Resp BP Pulse Ox 98.8 F 90 36 H 100/60 100 10/21/16 23:30 10/22/16 04:30 10/22/16 07:13 10/22/16 04:00 10/22/16 07:13 - Medications Medications: Current Medications Amikacin Sulfate (Amikacin 500 Mg/2ml Inj) 500 mg IH [id number] [facility] Last Admin: 10/22/16 07:03 Dose: 500 mg Artificial Tears (Artificial Tears Opht Oint) 1 gm OU Q6 [facility] Last Admin: 10/22/16 07:16 Dose: 1 applic Folic Acid (Folic Acid) 1 mg PO DAILY [facility] Last Admin: 10/22/16 10:04 Dose: 1 mg Gentamicin Sulfate 270 mg/ (Sodium Chloride) 106.75 mls @ 106.75 mls/hr IVPB ONCE [facility] Last Admin: 10/17/16 11:42 Dose: 106.75 mls/hr Doxycycline Hyclate 100 mg/ (Sodium Chloride) 100 mls @ 100 mls/hr IVPB Q12 [facility] PRN Reason: Protocol Stop: 10/23/16 10:01 Last Admin: 10/22/16 09:59 Dose: 100 mls/hr Micafungin Sodium 100 mg/ (Sodium Chloride) 100 mls @ 100 mls/hr IV DAILY TONI PRN Reason: Protocol Stop: 10/25/16 10:01 Last Admin: 10/22/16 09:57 Dose: 100 mls/hr Sodium Bicarbonate 150 meq/ (Dextrose) 1,150 mls @ 100 mls/hr IV .[id number] [facility]ONI Last Admin: 10/21/16 21:11 Dose: 100 mls/hr Meropenem 500 mg/ Sodium (Chloride) 100 mls @ 100 mls/hr IVPB Q12 TONI PRN Reason: Protocol Stop: 10/30/16 10:01 Last Admin: 10/22/16 09:57 Dose: 100 mls/hr Lactulose (Enulose) 20 gm PO TID [facility] Last Admin: 10/22/16 10:05 Dose: 20 gm Metoclopramide HCl (Reglan) 10 mg IVP Q6H PRN PRN Reason: Other Last Admin: 10/18/16 09:19 Dose: 10 mg Midodrine (Proamatine) 5 mg PO TID [facility] Last Admin: 10/22/16 10:04 Dose: 5 mg Morphine Sulfate (Morphine) 2 mg IVP Q4H PRN PRN Reason: Pain, severe (8-10) Multi-Ingredient Ointment (Hydrophor Oint) 1 gm TOP Q8 [facility] Last Admin: 10/22/16 09:56 Dose: 1 applic Pantoprazole Sodium (Protonix Inj) 40 mg IVP DAILY [facility] Last Admin: 10/22/16 10:04 Dose: 40 mg Thiamine HCl (Vitamin B1 Tab) 100 mg PO DAILY [facility] Last Admin: 10/22/16 10:04 Dose: 100 mg Vitamin A (Vitamin A & D Oint Ud Foilpak) 3 ea TOP TID [facility] Last Admin: 10/22/16 10:04 Dose: 3 ea Vitamin B Complex/Vit C/Folic Acid (Nephro-Mariann) 1 tab PO 0800 [facility] Last Admin: 10/22/16 07:35 Dose: 1 tab - Labs Labs: 10/22/16 07:15 10/22/16 07:15 PT 16.7 Seconds (9.9-11.8) H 10/20/16 09:35 INR 1.55 (0.93-1.08) H 10/20/16 09:35 APTT 36.5 Seconds (23.7-30.8) H 10/20/16 09:35 Attending/Attestation - Attestation I have personally seen and examined this patient.: Yes I have fully participated in the care of the patient.: Yes I have reviewed all pertinent clinical information, including history, physical exam and plan: Yes Notes (Text): 10/21/16 56 year old male with past medical history of chronic ETOH abuse who presented with altered mental status and alcohol withdrawal. Hospital course was complicated with respiratory distress requiring intubation, hemodynamic instability requiring pressor support, MODS and fungemia. Patient is s/p trach. Plan is for possible gastric tube early next week. Continue with iv antibiotics as per ID. Nephrology is following as well for SHAMAR. Will replete and repeat lytes. Continue to monitor cbc closely and transfuse as needed. Family was also considering hospice as of yesterday; will follow. Patrica Bingham MD Hospitalist.
[2016-10-22] MEDS: Mineral Oil/Petrolatum Opht Oint(3.5 gm) OU SCH ×4 (00:05→17:13)
[2016-10-22] MEDS ORDERED: Morphine 2 mg/ml ISec IVP PRN (00:52)
[2016-10-22] MEDS: AMIKACIN 500 MG/2 ML IH SCH ×2 (07:03→19:43)
[2016-10-22 07:31] LABS: EOS % 0.2 % (1.5-5.0); GRAN # 2.96 (1.4-6.5); LYMPH # 1.3 (1.2-3.4); LYMPH % 28.7 % (22.0-35.0); MEAN CELL VOLUME 95.5 fl (80.0-105.0); MEAN CORPUSCULAR HEMOGLOBIN 32.3 pg (25.0-35.0); MEAN CORPUSCULAR HGB CONC 33.8 g/dl (31.0-37.0); MEAN PLATELET VOLUME 11.5 fl (7.0-11.0); MONO # 0.2 (0.1-0.6); MONO % 5.1 % (1.0-6.0); RED CELL DISTRIBUTION WIDTH 15.3 % (11.5-14.5); WHITE BLOOD COUNT 4.5 10^3/ul (4.5-11.0)
[2016-10-22] MEDS: Multivitamin Vitamin B Complex (Nephro-Vite) Tab PO SCH (07:35)
[2016-10-22 07:43] LABS: ALB/GLOB RATIO 0.6 (1.1-1.8); CALCIUM 7.3 mg/dL (8.4-10.5); MAGNESIUM 1.5 mg/dL (1.7-2.2); TOTAL PROTEIN 5.1 g/dL (5.8-8.3)
[2016-10-22 07:57] LABS: PHOSPHOROUS 6.5 mg/dL (2.5-4.5)
[2016-10-22] MEDS ORDERED: Magnesium Sulfate 2 GM in Sodium Chloride 0.9% 100 ML IVPB ONE (08:55)
[2016-10-22 09:45] LABS: POTASSIUM 2.9 mmol/L (3.6-5.0)
[2016-10-22] MEDS: Petrolatum-Mineral Oil Oint (100gm) TOP SCH ×2 (09:56→13:55)
[2016-10-22] MEDS: Meropenem 500 MG in Sodium Chloride 0.9% 100 ML IVPB SCH ×2 (09:57→21:10)
[2016-10-22] MEDS: Micafungin 100 MG in Sodium Chloride 0.9% 100 ML IV SCH (09:57)
[2016-10-22] MEDS: Vitamins A & D Oint UD Foilpak TOP SCH ×3 (10:04→17:14)
--- NOTE | 2016-10-22 10:18 | PN ---
DATE: 10/22/2016 SUBJECTIVE: The patient is seen in the ICU, bed #4, remains trached on a vent. PHYSICAL EXAMINATION: VITAL SIGNS: The patient's temperature is 98, blood pressure is 100/60, respiratory rate on a vent, and heart rate of 90. HEENT: Unremarkable. NECK: Supple. LUNGS: Decreased breath sounds. HEART: Normal S1 and S2. ABDOMEN: Soft. LABORATORY DATA: Reveals the patient to have white count is 4.5, hemoglobin of 7, and platelets of 74. Chemistry reveals a BUN of 102, creatinine of 2.3. Urinalysis is noted. Microbiology reveals a repeat blood cultures and urine cultures were negative. The sputum has pseudomonas. Review of orders reveals the patient to be on aerosolized amikacin started by Dr. Hinojosa. The patient is on doxycycline, meropenem, and micafungin. ASSESSMENT AND PLAN: This is a 56-year-old male with severe sepsis, ventilator-dependent respiratory failure, respiratory acidosis, acute renal failure, tom albicans fungemia on top of colitis and spontaneous bacterial peritonitis, liver cirrhosis and alcohol abuse, pseudomonas healthcare-associated pneumonia on day #8 of meropenem, day #15 of Mycamine, and the patient is also on doxycycline and aerosolized amikacin. Overall prognosis is poor. Possibility of hospice setting in this patient with end-stage liver disease. Nehemiah Aguilar MD
[2016-10-22] MEDS ORDERED: Potassium Chloride 20 mEq ER Tab PO STA ×2 (10:20)
--- NOTE | 2016-10-22 10:27 | CP.PCM.PN ---
Subjective - Date & Time of Evaluation Date of Evaluation: 10/22/16 Time of Evaluation: 10:23 - Subjective Subjective: Surgery Progress note. Dr. Ronquillo Pt seen and examined at bedside. No acute events overnight. Patient awake, intubated on vent: FiO2 40%, PEEP 5. On tube feeds. Patient to get pRBCs transfusion today as per ICU. Objective - Vital Signs/Intake and Output Vital Signs (last 24 hours): Temp Pulse Resp BP Pulse Ox 98.8 F 90 36 H 100/60 100 10/21/16 23:30 10/22/16 04:30 10/22/16 07:13 10/22/16 04:00 10/22/16 07:13 - Medications Medications: Current Medications Amikacin Sulfate (Amikacin 500 Mg/2ml Inj) 500 mg IH [id number] [facility] Last Admin: 10/22/16 07:03 Dose: 500 mg Artificial Tears (Artificial Tears Opht Oint) 1 gm OU Q6 [facility] Last Admin: 10/22/16 07:16 Dose: 1 applic Folic Acid (Folic Acid) 1 mg PO DAILY [facility] Last Admin: 10/22/16 10:04 Dose: 1 mg Gentamicin Sulfate 270 mg/ (Sodium Chloride) 106.75 mls @ 106.75 mls/hr IVPB ONCE [facility] Last Admin: 10/17/16 11:42 Dose: 106.75 mls/hr Doxycycline Hyclate 100 mg/ (Sodium Chloride) 100 mls @ 100 mls/hr IVPB Q12 TONI PRN Reason: Protocol Stop: 10/23/16 10:01 Last Admin: 10/22/16 09:59 Dose: 100 mls/hr Micafungin Sodium 100 mg/ (Sodium Chloride) 100 mls @ 100 mls/hr IV DAILY [facility] PRN Reason: Protocol Stop: 10/25/16 10:01 Last Admin: 10/22/16 09:57 Dose: 100 mls/hr Sodium Bicarbonate 150 meq/ (Dextrose) 1,150 mls @ 100 mls/hr IV .[id number] [facility] Last Admin: 10/21/16 21:11 Dose: 100 mls/hr Meropenem 500 mg/ Sodium (Chloride) 100 mls @ 100 mls/hr IVPB Q12 [facility]ONI PRN Reason: Protocol Stop: 10/30/16 10:01 Last Admin: 10/22/16 09:57 Dose: 100 mls/hr Lactulose (Enulose) 20 gm PO TID [facility] Last Admin: 10/22/16 10:05 Dose: 20 gm Metoclopramide HCl (Reglan) 10 mg IVP Q6H PRN PRN Reason: Other Last Admin: 10/18/16 09:19 Dose: 10 mg Midodrine (Proamatine) 5 mg PO TID [facility] Last Admin: 10/22/16 10:04 Dose: 5 mg Morphine Sulfate (Morphine) 2 mg IVP Q4H PRN PRN Reason: Pain, severe (8-10) Multi-Ingredient Ointment (Hydrophor Oint) 1 gm TOP Q8 [facility] Last Admin: 10/22/16 09:56 Dose: 1 applic Pantoprazole Sodium (Protonix Inj) 40 mg IVP DAILY [facility] Last Admin: 10/22/16 10:04 Dose: 40 mg Thiamine HCl (Vitamin B1 Tab) 100 mg PO DAILY [facility] Last Admin: 10/22/16 10:04 Dose: 100 mg Vitamin A (Vitamin A & D Oint Ud Foilpak) 3 ea TOP TID [facility] Last Admin: 10/22/16 10:04 Dose: 3 ea Vitamin B Complex/Vit C/Folic Acid (Nephro-Mariann) 1 tab PO 0800 [facility] Last Admin: 10/22/16 07:35 Dose: 1 tab - Labs Labs: 10/22/16 07:15 10/22/16 07:15 PT 16.7 Seconds (9.9-11.8) H 10/20/16 09:35 INR 1.55 (0.93-1.08) H 10/20/16 09:35 APTT 36.5 Seconds (23.7-30.8) H 10/20/16 09:35 - Constitutional Appears: No Acute Distress - Head Exam Head Exam: ATRAUMATIC, NORMAL INSPECTION, NORMOCEPHALIC - Eye Exam Eye Exam: EOMI - ENT Exam ENT Exam: Mucous Membranes Dry - Respiratory Exam Respiratory Exam: NORMAL BREATHING PATTERN Additional comments: Trach in place. Ecchymosis around site noted. - GI/Abdominal Exam GI & Abdominal Exam: absent: Firm, Guarding, Rigid - Exam Additional comments: Vyas in place. Scrotal swelling noted. - Extremities Exam Extremities Exam: Pedal Edema Additional comments: Bilateral pitting pretibial edema - Neurological Exam Neurological Exam: Alert, Awake - Skin Additional comments: Diffuse weeping noted from skin. Edema Assessment and Plan - Assessment and Plan (Free Text) Assessment: 56 yo M w/ESRD and encephalopathy s/p trachostomy by ENT without feeding access. - To go to OR for Gastrostomy tube placement Sunday, 10/23 - Hold tube feeds past mn. NPO - Consent obtained from family and on chart - Family opting to obtain G-Tube prior to d/c to hospice care Further recs as per Dr. Yg Tony PGY1 surgery pager: [phone]
--- NOTE | 2016-10-22 11:15 | CP.PCM.PN ---
Subjective - Date & Time of Evaluation Date of Evaluation: 10/22/16 Time of Evaluation: 08:30 - Subjective Subjective: CRITICAL CARE PROGRESS NOTE Patient seen and examined. Remains on PRVC, with failed weaning trials, afebrile , HD stable, off pressors. Opens eyes, follows commands minimally. Objective - Vital Signs/Intake and Output Vital Signs (last 24 hours): Temp Pulse Resp BP Pulse Ox 98.8 F 90 36 H 100/60 100 10/21/16 23:30 10/22/16 04:30 10/22/16 07:13 10/22/16 04:00 10/22/16 07:13 - Medications Medications: Current Medications Amikacin Sulfate (Amikacin 500 Mg/2ml Inj) 500 mg IH [id number] [facility] Last Admin: 10/22/16 07:03 Dose: 500 mg Artificial Tears (Artificial Tears Opht Oint) 1 gm OU Q6 [facility]ON[facility] Last Admin: 10/22/16 07:16 Dose: 1 applic Folic Acid (Folic Acid) 1 mg PO DAILY [facility] Last Admin: 10/22/16 10:04 Dose: 1 mg Gentamicin Sulfate 270 mg/ (Sodium Chloride) 106.75 mls @ 106.75 mls/hr IVPB ONCE [facility] Last Admin: 10/17/16 11:42 Dose: 106.75 mls/hr Doxycycline Hyclate 100 mg/ (Sodium Chloride) 100 mls @ 100 mls/hr IVPB Q12 [facility]ON[facility] PRN Reason: Protocol Stop: 10/23/16 10:01 Last Admin: 10/22/16 09:59 Dose: 100 mls/hr Micafungin Sodium 100 mg/ (Sodium Chloride) 100 mls @ 100 mls/hr IV DAILY [facility] PRN Reason: Protocol Stop: 10/25/16 10:01 Last Admin: 10/22/16 09:57 Dose: 100 mls/hr Sodium Bicarbonate 150 meq/ (Dextrose) 1,150 mls @ 100 mls/hr IV .[id number] [facility] Last Admin: 10/21/16 21:11 Dose: 100 mls/hr Meropenem 500 mg/ Sodium (Chloride) 100 mls @ 100 mls/hr IVPB Q12 [facility] PRN Reason: Protocol Stop: 10/30/16 10:01 Last Admin: 10/22/16 09:57 Dose: 100 mls/hr Lactulose (Enulose) 20 gm PO TID [facility] Last Admin: 10/22/16 10:05 Dose: 20 gm Metoclopramide HCl (Reglan) 10 mg IVP Q6H PRN PRN Reason: Other Last Admin: 10/18/16 09:19 Dose: 10 mg Midodrine (Proamatine) 5 mg PO TID [facility] Last Admin: 10/22/16 10:04 Dose: 5 mg Morphine Sulfate (Morphine) 2 mg IVP Q4H PRN PRN Reason: Pain, severe (8-10) Multi-Ingredient Ointment (Hydrophor Oint) 1 gm TOP Q8 [facility] Last Admin: 10/22/16 09:56 Dose: 1 applic Pantoprazole Sodium (Protonix Inj) 40 mg IVP DAILY [facility] Last Admin: 10/22/16 10:04 Dose: 40 mg Thiamine HCl (Vitamin B1 Tab) 100 mg PO DAILY [facility] Last Admin: 10/22/16 10:04 Dose: 100 mg Vitamin A (Vitamin A & D Oint Ud Foilpak) 3 ea TOP TID [facility] Last Admin: 10/22/16 10:04 Dose: 3 ea Vitamin B Complex/Vit C/Folic Acid (Nephro-Mariann) 1 tab PO 0800 [facility] Last Admin: 10/22/16 07:35 Dose: 1 tab - Labs Labs: 10/22/16 07:15 10/22/16 07:15 PT 16.7 Seconds (9.9-11.8) H 10/20/16 09:35 INR 1.55 (0.93-1.08) H 10/20/16 09:35 APTT 36.5 Seconds (23.7-30.8) H 10/20/16 09:35 - Constitutional Appears: No Acute Distress, Confused, Chronically Ill - Head Exam Head Exam: ATRAUMATIC - Eye Exam Eye Exam: Normal appearance - ENT Exam Additional comments: +trach - Neck Exam Neck Exam: Full ROM - Respiratory Exam Respiratory Exam: Rhonchi - Cardiovascular Exam Cardiovascular Exam: REGULAR RHYTHM, RRR, +S1 - GI/Abdominal Exam GI & Abdominal Exam: Distended, Soft, Normal Bowel Sounds - Extremities Exam Additional comments: 3+ edema b/l - Skin Skin Exam: Normal Color Assessment and Plan - Assessment and Plan (Free Text) Assessment: Patient is 56yo male with end stage liver disease, with fungemia, +Pseudomonas sputum, chronically ill, vent dependent, with toxic metabolic encephalopathy. Respiratory Failure, s/p trach, vent dependent Fungemia EtOh abuse Chronic Liver disease Metabolic Encephalopathy Renal Failure Pseudomonas sputum C diff - currently afebrile, HD stable, comfortable, off pressors - remains vent dependent, fails weaning trials - remains confused, follows commands minimally, renal function stable - HH 7.1, plan to give 1u PRBC Recommend: - cont with ventilatory support, with pressure support trials - abx as per ID - cont with midodrine - insert feeding tube, NGT - hold feeds at MN - NPO after MN for PEG tomorrow - Duoenbs - monitor HH, transfuse 1u PRBC - replete K, Mg - check Morning INR - cont with IVF as per renal - GI ppx - DVT ppx, SCDs, NO HSQ 2/2 thrombocytopenia - residential planning - poor prognosis
[2016-10-22] MEDS ORDERED: Potassium Chloride 20 mEq ER Tab PO ONE (12:34)
[2016-10-22 13:20] LABS: ARTERIAL BLOOD GAS HCO3 19.2 mmol/L (21-28); ARTERIAL BLOOD GAS O2 CONTENT 9.7 ML/dl (15-23); ARTERIAL BLOOD HGB O2 SAT 84.8 % (95.0-98.0); CARBOXYHEMOGLOBIN 2.5 % (0.5-1.5); HHB 11.7 % (0-5)
--- NOTE | 2016-10-22 13:53 | CP.PCM.PN ---
<Griselda Lai - Last Filed: 10/22/16 13:50> Subjective - Date & Time of Evaluation Date of Evaluation: 10/22/16 Time of Evaluation: 13:50 - Subjective Subjective: Patient has been seen and examined. Patient currently on trach collar. Patient is eye tracking. Responsive to verbal and tactile stimulation. Objective - Vital Signs/Intake and Output Vital Signs (last 24 hours): Temp Pulse Resp BP Pulse Ox 98.8 F 93 H 36 H 100/60 100 10/21/16 23:30 10/22/16 12:00 10/22/16 07:13 10/22/16 04:00 10/22/16 07:13 - Medications Medications: Current Medications Amikacin Sulfate (Amikacin 500 Mg/2ml Inj) 500 mg IH [id number] [facility] Last Admin: 10/22/16 07:03 Dose: 500 mg Artificial Tears (Artificial Tears Opht Oint) 1 gm OU Q6 [facility] Last Admin: 10/22/16 07:16 Dose: 1 applic Folic Acid (Folic Acid) 1 mg PO DAILY [facility] Last Admin: 10/22/16 10:04 Dose: 1 mg Gentamicin Sulfate 270 mg/ (Sodium Chloride) 106.75 mls @ 106.75 mls/hr IVPB ONCE [facility] Last Admin: 10/17/16 11:42 Dose: 106.75 mls/hr Doxycycline Hyclate 100 mg/ (Sodium Chloride) 100 mls @ 100 mls/hr IVPB Q12 [facility] PRN Reason: Protocol Stop: 10/23/16 10:01 Last Admin: 10/22/16 09:59 Dose: 100 mls/hr Micafungin Sodium 100 mg/ (Sodium Chloride) 100 mls @ 100 mls/hr IV DAILY [facility] PRN Reason: Protocol Stop: 10/25/16 10:01 Last Admin: 10/22/16 09:57 Dose: 100 mls/hr Sodium Bicarbonate 150 meq/ (Dextrose) 1,150 mls @ 100 mls/hr IV .[id number] [facility] Last Admin: 10/21/16 21:11 Dose: 100 mls/hr Meropenem 500 mg/ Sodium (Chloride) 100 mls @ 100 mls/hr IVPB Q12 [facility] PRN Reason: Protocol Stop: 10/30/16 10:01 Last Admin: 10/22/16 09:57 Dose: 100 mls/hr Lactulose (Enulose) 20 gm PO TID [facility] Last Admin: 10/22/16 10:05 Dose: 20 gm Metoclopramide HCl (Reglan) 10 mg IVP Q6H PRN PRN Reason: Other Last Admin: 10/18/16 09:19 Dose: 10 mg Midodrine (Proamatine) 5 mg PO TID [facility] Last Admin: 10/22/16 10:04 Dose: 5 mg Morphine Sulfate (Morphine) 2 mg IVP Q4H PRN PRN Reason: Pain, severe (8-10) Multi-Ingredient Ointment (Hydrophor Oint) 1 gm TOP Q8 [facility] Last Admin: 10/22/16 09:56 Dose: 1 applic Pantoprazole Sodium (Protonix Inj) 40 mg IVP DAILY [facility] Last Admin: 10/22/16 10:04 Dose: 40 mg Thiamine HCl (Vitamin B1 Tab) 100 mg PO DAILY [facility] Last Admin: 10/22/16 10:04 Dose: 100 mg Vitamin A (Vitamin A & D Oint Ud Foilpak) 3 ea TOP TID [facility] Last Admin: 10/22/16 10:04 Dose: 3 ea Vitamin B Complex/Vit C/Folic Acid (Nephro-Mariann) 1 tab PO 0800 [facility] Last Admin: 10/22/16 07:35 Dose: 1 tab - Labs Labs: 10/22/16 07:15 10/22/16 07:15 PT 16.7 Seconds (9.9-11.8) H 10/20/16 09:35 INR 1.55 (0.93-1.08) H 10/20/16 09:35 APTT 36.5 Seconds (23.7-30.8) H 10/20/16 09:35 - Constitutional Appears: Toxic, No Acute Distress, Chronically Ill - Head Exam Head Exam: ATRAUMATIC, NORMAL INSPECTION, NORMOCEPHALIC - Eye Exam Eye Exam: Normal appearance. absent: Scleral icterus - ENT Exam ENT Exam: Mucous Membranes Moist - Respiratory Exam Respiratory Exam: Rales. absent: Respiratory Distress - Cardiovascular Exam Cardiovascular Exam: RRR, +S1, +S2 - GI/Abdominal Exam GI & Abdominal Exam: Soft. absent: Tenderness - Extremities Exam Extremities Exam: Pedal Edema - Neurological Exam Neurological Exam: absent: Alert, Awake - Skin Additional comments: numerous blisters, mottling, ecchymosis and hematomas Assessment and Plan - Assessment and Plan (Free Text) Assessment: 56 year old male with an initial presentation of AMS in the setting of persistent hypokalemia and alcohol withdrawal, which resolved. Patient was then intubated after he was found to be in hypercapnic respiratory failure and subsequently became hemodynamically unstable requiring dual vasopressor support. His presentation is consistent with distributive shock likely from either acute decompensated chronic liver failure or sepsis from C. Diff colitis , with multiorgan dysfunction syndrome including renal failure, encephalopathy and respiratory failure. Patient is no longer requiring vasopressin or levophed for hemodynamic support but is on midodrine. Patient is currently responsive to verbal or tactile stimuli off of sedation. Patient is has been transitioned from PRVC to PS/CPAP Plan: Hypercapnic Respiratory Failure -Patient intubated on 10/05. Today: FiO2= 40%, RR=36, PEEP+5, and Tidal Volume +400 ml, O2 saturation 97% -ABG: pCO2+43, pO2+97, pH+7.27 (10/20) -s/p Trach Day 3. -Patient hypotension slightly (100/66) and remains off pressors. -Cardio following -CXR diffuse b/L mid to lower lobe infiltrates -Continue to monitor vital signs. -Continue Duonebs 3ml IHQ6 HRESP for wheezing symptoms. -Expected to go to an acute facility pending approval from insurance. Renal: Acute renal failure most likely secondary to glomerulonephritis -BUN 101 and Creatinine is 2.2 yesterday -Nephrology consult note appreciated. -No acute indications for HD at this time. Urine output remains steady. -Nephrology consult note appreciate- Hematology: Thrombocytopenia -74 today. Continue to monitor plt count and consider another transfusion if patient drops below 20. -Patient currently has no active bleeds. Monitor for bleeding. Ascites -s/p ascitic fluid removed on 10/05. -culture growth negative after 6 days. -MELDS score of 20: 19.3% Mortality risk in 3 month time period. GI: Hepatic encephalopathy -Continue Rifaxamin, Lactulose -Scheduled to have gastrostomy tube placed on 10/[address] Ronquillo, if Hospice is canceled Anemia -Hgb is 7.1 today -Will transfuse 1 unit today per ID Sepsis/Fungemia -Grew Kamille Albicans -Sputum culture grew Pseudomonas Aeurginosa. -Continue Micafungin (renal dosing) -Patient continues to spike fevers. Started Zyvox and Doxycycline. Will continue to monitor closely. -Continue Merrem, Vancomycin C Diff infection. -Continue Vancomycin -Repeat stool sample. Hypokalemia -Potassium 2.9. Will continue to replete as needed. Will continue to monitor electrolyte levels with serial cmp's. GI ppx -Continue Protonix DVT ppx. Dispo: Will follow up in any changes in hospice care plans. Patient seen, and reviewed with Attending Griselda Lai PGY-1 <Patrica Bingham - Last Filed: 10/22/16 15:40> Objective - Vital Signs/Intake and Output Vital Signs (last 24 hours): Temp Pulse Resp BP Pulse Ox 98.8 F 93 H 36 H 100/60 100 10/21/16 23:30 10/22/16 12:00 10/22/16 07:13 10/22/16 04:00 10/22/16 07:13 - Medications Medications: Current Medications Amikacin Sulfate (Amikacin 500 Mg/2ml Inj) 500 mg IH [id number] [facility] Last Admin: 10/22/16 07:03 Dose: 500 mg Artificial Tears (Artificial Tears Opht Oint) 1 gm OU Q6 [facility] Last Admin: 10/22/16 13:57 Dose: 1 applic Folic Acid (Folic Acid) 1 mg PO DAILY [facility] Last Admin: 10/22/16 10:04 Dose: 1 mg Gentamicin Sulfate 270 mg/ (Sodium Chloride) 106.75 mls @ 106.75 mls/hr IVPB ONCE [facility] Last Admin: 10/17/16 11:42 Dose: 106.75 mls/hr Doxycycline Hyclate 100 mg/ (Sodium Chloride) 100 mls @ 100 mls/hr IVPB Q12 [facility] PRN Reason: Protocol Stop: 10/23/16 10:01 Last Admin: 10/22/16 09:59 Dose: 100 mls/hr Micafungin Sodium 100 mg/ (Sodium Chloride) 100 mls @ 100 mls/hr IV DAILY [facility] PRN Reason: Protocol Stop: 10/25/16 10:01 Last Admin: 10/22/16 09:57 Dose: 100 mls/hr Sodium Bicarbonate 150 meq/ (Dextrose) 1,150 mls @ 100 mls/hr IV .[id number] [facility] Last Admin: 10/22/16 13:59 Dose: 100 mls/hr Meropenem 500 mg/ Sodium (Chloride) 100 mls @ 100 mls/hr IVPB Q12 [facility] PRN Reason: Protocol Stop: 10/30/16 10:01 Last Admin: 10/22/16 09:57 Dose: 100 mls/hr Lactulose (Enulose) 20 gm PO TID [facility] Last Admin: 10/22/16 13:53 Dose: 20 gm Metoclopramide HCl (Reglan) 10 mg IVP Q6H PRN PRN Reason: Other Last Admin: 10/18/16 09:19 Dose: 10 mg Midodrine (Proamatine) 5 mg PO TID [facility] Last Admin: 10/22/16 13:55 Dose: 5 mg Morphine Sulfate (Morphine) 2 mg IVP Q4H PRN PRN Reason: Pain, severe (8-10) Multi-Ingredient Ointment (Hydrophor Oint) 1 gm TOP Q8 [facility] Last Admin: 10/22/16 13:55 Dose: 1 applic Pantoprazole Sodium (Protonix Inj) 40 mg IVP DAILY [facility] Last Admin: 10/22/16 10:04 Dose: 40 mg Thiamine HCl (Vitamin B1 Tab) 100 mg PO DAILY [facility] Last Admin: 10/22/16 10:04 Dose: 100 mg Vitamin A (Vitamin A & D Oint Ud Foilpak) 3 ea TOP TID [facility] Last Admin: 10/22/16 13:59 Dose: 3 ea Vitamin B Complex/Vit C/Folic Acid (Nephro-Mariann) 1 tab PO 0800 [facility] Last Admin: 10/22/16 07:35 Dose: 1 tab - Labs Labs: 10/22/16 07:15 10/22/16 07:15 PT 16.7 Seconds (9.9-11.8) H 10/20/16 09:35 INR 1.55 (0.93-1.08) H 10/20/16 09:35 APTT 36.5 Seconds (23.7-30.8) H 10/20/16 09:35 Attending/Attestation - Attestation I have personally seen and examined this patient.: Yes I have fully participated in the care of the patient.: Yes I have reviewed all pertinent clinical information, including history, physical exam and plan: Yes Notes (Text): 10/22/16 15:37 56 year old male with past medical history of chronic ETOH abuse who presented with altered mental status and alcohol withdrawal. Hospital course was complicated with respiratory distress requiring intubation, hemodynamic instability requiring pressor support, MODS and fungemia. Patient is s/p trach. Plan is for possible gastrostomy tube tomorrow per surgery if family is not planning for hospice. Continue with iv antibiotics as per ID. Nephrology is following as well for SHAMAR. Will replete and repeat lytes (potassium/magnesium). Agree with transfusion today for anemia. Patrica Bingham MD Hospitalist.
[2016-10-22] MEDS: Sodium Bicarbonate 8.4% 150 MEQ in Dextrose 5% In Water 1,000 ML IV SCH (13:59)
--- NOTE | 2016-10-22 14:08 | RAD ---
HISTORY: O2 saturation COMPARISON: Comparison chest 10/21/2016 FINDINGS: In situ tracheostomy tube in good position. The feeding tube with tip in the left parasagittal upper/mid abdomen again noted. LUNGS: Patchy bilateral mid to lower lobe infiltrates with more confluent opacification in the left perihilar region. Questionable small right-sided effusion. PLEURA: As above. No pneumothorax apparent. CARDIOVASCULAR: Normal. OSSEOUS STRUCTURES: No significant abnormalities. VISUALIZED UPPER ABDOMEN: Normal. OTHER FINDINGS: None. IMPRESSION: Tracheostomy tube and feeding tube as above. Patchy bilateral mid to lower lobe infiltrates with more confluent opacification in the left perihilar region. Questionable small right-sided effusion.
--- NOTE | 2016-10-22 15:03 | CP.PCM.PN ---
Subjective - Date & Time of Evaluation Date of Evaluation: 10/22/16 Time of Evaluation: 11:00 - Subjective Subjective: s/p trach; Objective - Vital Signs/Intake and Output Vital Signs (last 24 hours): Temp Pulse Resp BP Pulse Ox 98.8 F 93 H 36 H 100/60 100 10/21/16 23:30 10/22/16 12:00 10/22/16 07:13 10/22/16 04:00 10/22/16 07:13 - Medications Medications: Current Medications Amikacin Sulfate (Amikacin 500 Mg/2ml Inj) 500 mg IH [id number] [facility] Last Admin: 10/22/16 07:03 Dose: 500 mg Artificial Tears (Artificial Tears Opht Oint) 1 gm OU Q6 [facility] Last Admin: 10/22/16 13:57 Dose: 1 applic Folic Acid (Folic Acid) 1 mg PO DAILY [facility] Last Admin: 10/22/16 10:04 Dose: 1 mg Gentamicin Sulfate 270 mg/ (Sodium Chloride) 106.75 mls @ 106.75 mls/hr IVPB ONCE [facility] Last Admin: 10/17/16 11:42 Dose: 106.75 mls/hr Doxycycline Hyclate 100 mg/ (Sodium Chloride) 100 mls @ 100 mls/hr IVPB Q12 [facility] PRN Reason: Protocol Stop: 10/23/16 10:01 Last Admin: 10/22/16 09:59 Dose: 100 mls/hr Micafungin Sodium 100 mg/ (Sodium Chloride) 100 mls @ 100 mls/hr IV DAILY [facility] PRN Reason: Protocol Stop: 10/25/16 10:01 Last Admin: 10/22/16 09:57 Dose: 100 mls/hr Sodium Bicarbonate 150 meq/ (Dextrose) 1,150 mls @ 100 mls/hr IV .[id number] [facility] Last Admin: 10/22/16 13:59 Dose: 100 mls/hr Meropenem 500 mg/ Sodium (Chloride) 100 mls @ 100 mls/hr IVPB Q12 [facility] PRN Reason: Protocol Stop: 10/30/16 10:01 Last Admin: 10/22/16 09:57 Dose: 100 mls/hr Lactulose (Enulose) 20 gm PO TID [facility] Last Admin: 10/22/16 13:53 Dose: 20 gm Metoclopramide HCl (Reglan) 10 mg IVP Q6H PRN PRN Reason: Other Last Admin: 10/18/16 09:19 Dose: 10 mg Midodrine (Proamatine) 5 mg PO TID [facility] Last Admin: 10/22/16 13:55 Dose: 5 mg Morphine Sulfate (Morphine) 2 mg IVP Q4H PRN PRN Reason: Pain, severe (8-10) Multi-Ingredient Ointment (Hydrophor Oint) 1 gm TOP Q8 [facility] Last Admin: 10/22/16 13:55 Dose: 1 applic Pantoprazole Sodium (Protonix Inj) 40 mg IVP DAILY [facility] Last Admin: 10/22/16 10:04 Dose: 40 mg Thiamine HCl (Vitamin B1 Tab) 100 mg PO DAILY [facility] Last Admin: 10/22/16 10:04 Dose: 100 mg Vitamin A (Vitamin A & D Oint Ud Foilpak) 3 ea TOP TID [facility] Last Admin: 10/22/16 13:59 Dose: 3 ea Vitamin B Complex/Vit C/Folic Acid (Nephro-Mariann) 1 tab PO 0800 [facility] Last Admin: 10/22/16 07:35 Dose: 1 tab - Labs Labs: 10/22/16 07:15 10/22/16 07:15 PT 16.7 Seconds (9.9-11.8) H 10/20/16 09:35 INR 1.55 (0.93-1.08) H 10/20/16 09:35 APTT 36.5 Seconds (23.7-30.8) H 10/20/16 09:35 - Respiratory Exam Additional comments: tachypneic Assessment and Plan (1) Acute renal failure Status: Acute (2) Acute hypercapnic respiratory failure Status: Acute (3) Hypokalemia Status: Acute (4) SIRS (systemic inflammatory response syndrome) Status: Acute (5) Hypernatremia Status: Acute
--- NOTE | 2016-10-22 16:35 | RAD ---
HISTORY: [place] COMPARISON: Comparison chest dated 10/22/2016 FINDINGS: Tracheostomy tube remains in good position. Re- demonstrated is in situ feeding tube with tip overlying the left upper/ mid abdomen LUNGS: Bilateral mid to lower lobe infiltrates again noted left larger than PLEURA: No significant pleural effusion identified, no pneumothorax apparent. CARDIOVASCULAR: Normal. OSSEOUS STRUCTURES: No significant abnormalities. VISUALIZED UPPER ABDOMEN: Normal. OTHER FINDINGS: None. IMPRESSION: Right tracheostomy tube and feeding tube as above. Bilateral mid to lower lobe infiltrates again noted left larger than
[2016-10-23] MEDS: Mineral Oil/Petrolatum Opht Oint(3.5 gm) OU SCH ×2 (06:42→17:04)
[2016-10-23] MEDS: Petrolatum-Mineral Oil Oint (100gm) TOP SCH ×2 (06:43→14:34)
[2016-10-23] MEDS: Sodium Bicarbonate 8.4% 150 MEQ in Dextrose 5% In Water 1,000 ML IV SCH (06:43)
[2016-10-23 06:57] LABS: INR 1.67 (0.93-1.08); PARTIAL THROMBOPLASTIN TIME 34.9 Seconds (23.7-30.8)
[2016-10-23 07:12] LABS: ALB/GLOB RATIO 0.6 (1.1-1.8); BILIRUBIN,TOTAL 1.9 mg/dL (0.2-1.3); CALCIUM 7.4 mg/dL (8.4-10.5); MAGNESIUM 1.8 mg/dL (1.7-2.2); PHOSPHOROUS 6.4 mg/dL (2.5-4.5); TOTAL PROTEIN 4.9 g/dL (5.8-8.3)
[2016-10-23 07:13] LABS: EOS % 0.7 % (1.5-5.0); GRAN # 3.52 (1.4-6.5); GRAN % 64.5 % (50.0-68.0); LYMPH # 1.5 (1.2-3.4); LYMPH % 27.1 % (22.0-35.0); MEAN CELL VOLUME 94.3 fl (80.0-105.0); MEAN CORPUSCULAR HEMOGLOBIN 31.3 pg (25.0-35.0); MEAN CORPUSCULAR HGB CONC 33.2 g/dl (31.0-37.0); MEAN PLATELET VOLUME 11.5 fl (7.0-11.0); MONO # 0.4 (0.1-0.6); MONO % 7.7 % (1.0-6.0); RED CELL DISTRIBUTION WIDTH 15.6 % (11.5-14.5); WHITE BLOOD COUNT 5.5 10^3/ul (4.5-11.0)
[2016-10-23 07:14] LABS: POTASSIUM 2.8 mmol/L (3.6-5.0)
[2016-10-23] MEDS ORDERED: Potassium Chloride 20 mEq ER Tab PO STA (07:22)
[2016-10-23 07:39] LABS: HEMATOCRIT 23.2 % (42.0-52.0)
[2016-10-23] MEDS: Multivitamin Vitamin B Complex (Nephro-Vite) Tab PO SCH (08:00)
[2016-10-23] MEDS ORDERED: Potassium Chloride 40 mEq/30 ml LIQ UD PO ONE (08:10)
[2016-10-23] MEDS: Micafungin 100 MG in Sodium Chloride 0.9% 100 ML IV SCH ×2 (08:16→10:06)
[2016-10-23] MEDS: AMIKACIN 500 MG/2 ML IH SCH ×2 (08:33→20:00)
--- NOTE | 2016-10-23 09:04 | US ---
HISTORY: Leg pain and swelling. Evaluate for DVT PHYSICIAN(S): Charles Mullins MD. TECHNIQUE: Duplex sonography and color-flow Doppler with graded compression were used to evaluate the deep venous systems of both lower extremities. FINDINGS: The visualized deep venous systems of both lower extremities are sonographically normal and compressible. Normal wave forms and augmentation are seen. There is no sonographic evidence for deep venous thrombosis in the visualized segments of both lower extremities. IMPRESSION: No sonographic evidence for deep venous thrombosis in the visualized segments of both lower extremities.
[2016-10-23] MEDS: Meropenem 500 MG in Sodium Chloride 0.9% 100 ML IVPB SCH ×2 (10:12→22:06)
[2016-10-23] MEDS: Vitamins A & D Oint UD Foilpak TOP SCH ×3 (10:13→17:08)
[2016-10-23] MEDS ORDERED: Potassium Chloride 20 MEQ in Sodium Chloride 0.45% 1,000 ML IV SCH ×2 (10:30→21:45)
[2016-10-23] MEDS ORDERED: Sodium Chloride 0.45% 1,000 ML IV SCH (10:30)
--- NOTE | 2016-10-23 11:52 | CP.PCM.PN ---
<Justo Torres - Last Filed: 10/23/16 11:55> Subjective - Date & Time of Evaluation Date of Evaluation: 10/23/16 Time of Evaluation: 07:49 - Subjective Subjective: Patient was seen and examined at bedside. Patient is scheduled to have the Gastrostomy procedure done today. The remainder of the ROS was unobtainable due to current his current clinical condition. Objective - Vital Signs/Intake and Output Vital Signs (last 24 hours): Temp Pulse Resp BP Pulse Ox 97.3 F L 91 H 30 H 114/76 100 10/23/16 08:00 10/23/16 08:00 10/23/16 08:00 10/23/16 08:00 10/23/16 08:00 Intake and Output: 10/23/16 10/23/16 06:59 18:59 Intake Total 294 Output Total 2350 Balance -2055 - Medications Medications: Current Medications Amikacin Sulfate (Amikacin 500 Mg/2ml Inj) 500 mg IH [id number] [facility] Last Admin: 10/23/16 08:33 Dose: 500 mg Artificial Tears (Artificial Tears Opht Oint) 1 gm OU Q6 [facility] Last Admin: 10/23/16 06:42 Dose: 1 applic Folic Acid (Folic Acid) 1 mg PO DAILY [facility] Last Admin: 10/23/16 10:13 Dose: 1 mg Gentamicin Sulfate 270 mg/ (Sodium Chloride) 106.75 mls @ 106.75 mls/hr IVPB ONCE [facility] Last Admin: 10/17/16 11:42 Dose: 106.75 mls/hr Micafungin Sodium 100 mg/ (Sodium Chloride) 100 mls @ 100 mls/hr IV DAILY [facility] PRN Reason: Protocol Stop: 10/25/16 10:01 Last Admin: 10/23/16 10:06 Dose: Not Given Meropenem 500 mg/ Sodium (Chloride) 100 mls @ 100 mls/hr IVPB Q12 [facility] PRN Reason: Protocol Stop: 10/30/16 10:01 Last Admin: 10/23/16 10:12 Dose: 100 mls/hr Potassium Chloride (Potassium Chloride 20 Meq/100 Ml) 20 meq in 100 mls @ 50 mls/hr IVPB ONCE ONE Stop: 10/23/16 12:53 Potassium Chloride 20 meq/ (Sodium Chloride) 1,010 mls @ 200 mls/hr IV .Q5H3M [facility] Stop: 10/23/16 20:35 Lactulose (Enulose) 20 gm PO TID [facility] Last Admin: 10/23/16 10:13 Dose: 20 gm Metoclopramide HCl (Reglan) 10 mg IVP Q6H PRN PRN Reason: Other Last Admin: 10/18/16 09:19 Dose: 10 mg Midodrine (Proamatine) 5 mg PO TID [facility] Last Admin: 10/23/16 10:13 Dose: 5 mg Morphine Sulfate (Morphine) 2 mg IVP Q4H PRN PRN Reason: Pain, severe (8-10) Multi-Ingredient Ointment (Hydrophor Oint) 1 gm TOP Q8 [facility] Last Admin: 10/23/16 06:43 Dose: 1 applic Pantoprazole Sodium (Protonix Inj) 40 mg IVP DAILY [facility] Last Admin: 10/23/16 10:16 Dose: 40 mg Thiamine HCl (Vitamin B1 Tab) 100 mg PO DAILY [facility] Last Admin: 10/23/16 10:13 Dose: 100 mg Vitamin A (Vitamin A & D Oint Ud Foilpak) 3 ea TOP TID [facility] Last Admin: 10/23/16 10:13 Dose: 2 ea Vitamin B Complex/Vit C/Folic Acid (Nephro-Mariann) 1 tab PO 0800 [facility] Last Admin: 10/22/16 07:35 Dose: 1 tab - Labs Labs: 10/23/16 05:30 10/23/16 05:30 PT 18.0 Seconds (9.9-11.8) H 10/23/16 05:30 INR 1.67 (0.93-1.08) H 10/23/16 05:30 APTT 34.9 Seconds (23.7-30.8) H 10/23/16 05:30 - Head Exam Head Exam: ATRAUMATIC, NORMAL INSPECTION, NORMOCEPHALIC - Eye Exam Eye Exam: PERRL. absent: Scleral icterus Pupil Exam: PERRL - ENT Exam ENT Exam: Mucous Membranes Moist - Neck Exam Additional comments: Trach placed. - Respiratory Exam Respiratory Exam: Clear to Ausculation Bilateral, NORMAL BREATHING PATTERN - Cardiovascular Exam Cardiovascular Exam: REGULAR RHYTHM, RRR, +S1, +S2. absent: Gallop, Rubs - GI/Abdominal Exam GI & Abdominal Exam: Firm, Normal Bowel Sounds - Back Exam Additional comments: Unstagegable Back ulcers appreciated per nursing staff. - Psychiatric Exam Psychiatric exam: Normal Affect - Skin Skin Exam: Mottled Assessment and Plan - Assessment and Plan (Free Text) Assessment: 56 year old male with an initial presentation of AMS in the setting of persistent hypokalemia and alcohol withdrawal, which resolved. Patient was then intubated after he was found to be in hypercapnic respiratory failure and subsequently became hemodynamically unstable requiring dual vasopressor support. His presentation is consistent with distributive shock likely from either acute decompensated chronic liver failure or sepsis from C. Diff colitis , with multiorgan dysfunction syndrome including renal failure, encephalopathy and respiratory failure. Patient is no longer requiring vasopressin or levophed for hemodynamic support but is on midodrine. Patient is currently unresponsive to verbal or tactile stimuli off of sedation. Patient is has been transitioned from PRVC to PS/CPAP Plan: Pulmonary: Hypercapnic Respiratory Failure -Patient intubated on 10/05. Today: FiO2= 50%, RR=30, PEEP+5, and Tidal Volume + 400 ml, O2 saturation+97% -ABG: pCO2+39, pO2+52, pH+7.3 -s/p Trach Day 4. -Patient hypotension slightly (111/71) and remains off pressors. -Cardio following -CXR shows no active pulmonary disease. -Continue to monitor vital signs. -Continue Duonebs 3ml IHQ6 HRESP for wheezing symptoms. -Expected to go to [facility] pending. Renal: Acute renal failure most likely secondary to glomerulonephritis -BUN 101 and Creatinine is 2.3 -Urine total protein-897 and Urine Microalbumin >950. -Nephrology consult note appreciated. -No acute indications for HD at this time. Urine output remains steady. -Nephrology consult note appreciate- Hematology: Thrombocytopenia -Plt count now 73 s/p 4 units of Platelets transfused. Continue to monitor plt count and consider another transfusion if patient drops below 20. -Patient currently has no active bleeds. Monitor for bleeding. EtOh Withdrawal -Continue Ativan 2mg IVP Q2H PRN for alcohol withdrawal symptoms. -Continue Thiamine, Folic acid and MV supplementation Ascites -s/p ascitic fluid removed on 10/05. -culture growth negative after 6 days. -MELDS score of 20: 19.3% Mortality risk in 3 month time period. GI: Hepatic encephalopathy -Continue Rifaxamin, Lactulose -Rectal tube in place and currently draining 2800 ml. -Scheduled to have gastrostomy tube placed today by Dr. Ronquillo. Anemia -Stool occult blood positive on 10/05. -Hgb is 7.7 and Hct is 23.2 Patient is s/p 4 units leukocyte reduced PRBC's. Continue to monitor H/H levels with serial CBC's. Consider Transfusion if Hgb falls below 7. Sepsis/Fungemia -Grew Kamille Albicans -Sputum culture grew Pseudomonas Aeurginosa. -Continue Micafungin (renal dosing) -Patient continues to spike fevers. Started Zyvox and Doxycycline. Will continue to monitor closely. -Continue Merrem, Vancomycin C Diff infection. -Continue Vancomycin -Repeat stool sample pending. Hypokalemia -Potassium today 2.8. Will continue to replete as needed. Will continue to monitor electrolyte levels with serial cmp's. GI ppx -Continue Protonix DVT ppx. <Zoe GALLEGOS,Jacob - Last Filed: 10/25/16 14:49> Objective - Vital Signs/Intake and Output Vital Signs (last 24 hours): Temp Pulse Resp BP Pulse Ox 99.3 F 95 H 20 105/60 100 10/25/16 14:30 10/25/16 14:30 10/24/16 20:00 10/25/16 14:30 10/25/16 14:30 Intake and Output: 10/25/16 10/25/16 06:59 18:59 Intake Total 1200 Output Total 600 Balance 600 - Medications Medications: Current Medications Amikacin Sulfate (Amikacin 500 Mg/2ml Inj) 500 mg IH [id number] [facility] Last Admin: 10/25/16 08:17 Dose: 500 mg Artificial Tears (Artificial Tears Opht Oint) 1 gm OU Q6 [facility] Last Admin: 10/25/16 12:30 Dose: 2 applic Folic Acid (Folic Acid) 1 mg PO DAILY [facility] Last Admin: 10/25/16 09:31 Dose: 1 mg Gentamicin Sulfate 270 mg/ (Sodium Chloride) 106.75 mls @ 106.75 mls/hr IVPB ONCE [facility] Last Admin: 10/17/16 11:42 Dose: 106.75 mls/hr Sodium Chloride (Sodium Chloride 0.45%) 1,000 mls @ 200 mls/hr IV .Q5H [facility] Last Admin: 10/25/16 09:22 Dose: 200 mls/hr Dextrose (Dextrose 5% In Water 1000 Ml) 1,000 mls @ 50 mls/hr IV .Q20H [facility] Last Admin: 10/25/16 13:27 Dose: 50 mls/hr Lactulose (Enulose) 20 gm PO BID [facility] Last Admin: 10/25/16 09:31 Dose: 20 gm Metoclopramide HCl (Reglan) 10 mg IVP Q6H PRN PRN Reason: Other Last Admin: 10/25/16 00:41 Dose: 10 mg Midodrine (Proamatine) 5 mg PO TID [facility] Last Admin: 10/25/16 09:31 Dose: 5 mg Morphine Sulfate (Morphine) 2 mg IVP Q4H PRN PRN Reason: Pain, severe (8-10) Pantoprazole Sodium (Protonix Inj) 40 mg IVP Q12 [facility] Last Admin: 10/25/16 09:31 Dose: 40 mg Thiamine HCl (Vitamin B1 Tab) 100 mg PO DAILY [facility] Last Admin: 10/25/16 09:31 Dose: 100 mg Vitamin B Complex/Vit C/Folic Acid (Nephro-Mariann) 1 tab PO 0800 [facility] Last Admin: 10/25/16 08:36 Dose: 1 tab - Labs Labs: 10/25/16 11:40 10/25/16 06:30 PT 18.0 Seconds (9.9-11.8) H 10/23/16 05:30 INR 1.67 (0.93-1.08) H 10/23/16 05:30 APTT 30.8 Seconds (23.7-30.8) 10/25/16 11:40 Attending/Attestation - Attestation I have personally seen and examined this patient.: Yes I have fully participated in the care of the patient.: Yes I have reviewed all pertinent clinical information, including history, physical exam and plan: Yes Notes (Text): 10/25/16 14:46 Patient was seen and examined with esthetician and manager medical spa. 56 year old male with history of alcohol abuse, cirrhosis who was admitted with AMS, was found to be have alcohol intoxication and sepsis,was intubated later on. He was also found to have oliguric acute renal failure ,anemia , thrombocytopenia, SBP,HCAP,~cdiff~and fungemia~ Rectal tube is in. . .He was unable to wean off and underwent tracheotomy yesterday, still on high FIO 40%,, requiring ventilatory support, mental status is mildly improved but still very poor.He is awaiting for PEG tube placement. Renal functions are stable, Nephrology is following. Sepsis on antibiotics as per ID. Patient is DNR/ DNI. Prognosis is guarde
--- NOTE | 2016-10-23 13:37 | CP.PCM.PN ---
Subjective - Date & Time of Evaluation Date of Evaluation: 10/23/16 Time of Evaluation: 10:20 - Subjective Subjective: Patient continues to be on the ventilator, no fevers overnight. Objective - Vital Signs/Intake and Output Vital Signs (last 24 hours): Temp Pulse Resp BP Pulse Ox 98.6 F 91 H 32 H 112/64 100 10/22/16 19:21 10/22/16 19:21 10/22/16 19:21 10/22/16 19:21 10/22/16 18:00 Intake and Output: 10/22/16 10/23/16 18:59 06:59 Intake Total 2100 294 Output Total 1800 Balance 300 294 - Medications Medications: Current Medications Amikacin Sulfate (Amikacin 500 Mg/2ml Inj) 500 mg IH [id number] [facility] Last Admin: 10/22/16 19:43 Dose: 500 mg Artificial Tears (Artificial Tears Opht Oint) 1 gm OU Q6 [facility] Last Admin: 10/22/16 17:13 Dose: 1 applic Folic Acid (Folic Acid) 1 mg PO DAILY [facility] Last Admin: 10/22/16 10:04 Dose: 1 mg Gentamicin Sulfate 270 mg/ (Sodium Chloride) 106.75 mls @ 106.75 mls/hr IVPB ONCE [facility] Last Admin: 10/17/16 11:42 Dose: 106.75 mls/hr Doxycycline Hyclate 100 mg/ (Sodium Chloride) 100 mls @ 100 mls/hr IVPB Q12 [facility] PRN Reason: Protocol Stop: 10/23/16 10:01 Last Admin: 10/22/16 21:11 Dose: 100 mls/hr Micafungin Sodium 100 mg/ (Sodium Chloride) 100 mls @ 100 mls/hr IV DAILY [facility] PRN Reason: Protocol Stop: 10/25/16 10:01 Last Admin: 10/22/16 09:57 Dose: 100 mls/hr Sodium Bicarbonate 150 meq/ (Dextrose) 1,150 mls @ 100 mls/hr IV .[id number] [facility] Last Admin: 10/22/16 13:59 Dose: 100 mls/hr Meropenem 500 mg/ Sodium (Chloride) 100 mls @ 100 mls/hr IVPB Q12 [facility] PRN Reason: Protocol Stop: 10/30/16 10:01 Last Admin: 10/22/16 21:10 Dose: 100 mls/hr Lactulose (Enulose) 20 gm PO TID [facility] Last Admin: 10/22/16 17:16 Dose: 20 gm Metoclopramide HCl (Reglan) 10 mg IVP Q6H PRN PRN Reason: Other Last Admin: 10/18/16 09:19 Dose: 10 mg Midodrine (Proamatine) 5 mg PO TID [facility] Last Admin: 10/22/16 17:16 Dose: 5 mg Morphine Sulfate (Morphine) 2 mg IVP Q4H PRN PRN Reason: Pain, severe (8-10) Multi-Ingredient Ointment (Hydrophor Oint) 1 gm TOP Q8 [facility] Last Admin: 10/22/16 13:55 Dose: 1 applic Pantoprazole Sodium (Protonix Inj) 40 mg IVP DAILY [facility] Last Admin: 10/22/16 10:04 Dose: 40 mg Thiamine HCl (Vitamin B1 Tab) 100 mg PO DAILY [facility] Last Admin: 10/22/16 10:04 Dose: 100 mg Vitamin A (Vitamin A & D Oint Ud Foilpak) 3 ea TOP TID [facility] Last Admin: 10/22/16 17:14 Dose: 3 ea Vitamin B Complex/Vit C/Folic Acid (Nephro-Mariann) 1 tab PO 0800 [facility] Last Admin: 10/22/16 07:35 Dose: 1 tab - Labs Labs: 10/22/16 07:15 10/22/16 07:15 PT 16.7 Seconds (9.9-11.8) H 10/20/16 09:35 INR 1.55 (0.93-1.08) H 10/20/16 09:35 APTT 36.5 Seconds (23.7-30.8) H 10/20/16 09:35 - Constitutional Appears: Chronically Ill - Neck Exam Neck Exam: absent: Meningismus Additional comments: tracheostomy tube in place - Respiratory Exam Respiratory Exam: Decreased Breath Sounds - Cardiovascular Exam Cardiovascular Exam: +S1, +S2 - GI/Abdominal Exam GI & Abdominal Exam: Soft. absent: Tenderness Assessment and Plan - Assessment and Plan (Free Text) Plan: Assessment severe sepsis with ventilator-dependent respiratory failure (now with tracheostomy), respiratory acidosis and acute renal failure probably due to C. albicans fungemia on top of C. diff. colitis in this patient with liver cirrhosis probably from alcohol abuse; S/P paracentesis; initially presented with delerium tremens; patient has probable right sided and healthcare- associated pneumonia as well chronic alcohol abuse with history of liver cirrhosis and esophageal varices significant smoking history Plan will continue Merrem (day 18), aerosolized tobramycin (day 4); S/P 14 days of PO Vancomycin (day 14) continue Mycamine (repeat blood cx on 10/08/2016 are negative - we are cautious not to use Fluconazole in this patient with worsening hepatic failure, although Mycamine has also been implicated with some liver toxicity as well but less reports compared to Fluconazole) - should have at least 2 weeks of antifungal therapy (day 16 today) - patient had Ophtho evaluation a week ago and no endophthalmitis was seen will continue to monitor clinically patient continues to be in critical condition and overall prognosis is poor - patient is DNR discussed with ICU team
--- NOTE | 2016-10-23 15:30 | CP.PCM.PN ---
Subjective - Date & Time of Evaluation Date of Evaluation: 10/23/16 Time of Evaluation: 07:30 - Subjective Subjective: Patient seen and examined. Remains on PRVC, failed weaning trials. Opens eyes, nods, does not follow commands. Objective - Vital Signs/Intake and Output Vital Signs (last 24 hours): Temp Pulse Resp BP Pulse Ox 97.5 F L 96 H 36 H 105/72 98 10/23/16 13:04 10/23/16 13:04 10/23/16 13:04 10/23/16 13:04 10/23/16 12:30 Intake and Output: 10/23/16 10/23/16 06:59 18:59 Intake Total 294 0 Output Total 2350 Balance -2056 0 - Medications Medications: Current Medications Amikacin Sulfate (Amikacin 500 Mg/2ml Inj) 500 mg IH [id number] [facility] Last Admin: 10/23/16 08:33 Dose: 500 mg Artificial Tears (Artificial Tears Opht Oint) 1 gm OU Q6 [facility] Last Admin: 10/23/16 06:42 Dose: 1 applic Folic Acid (Folic Acid) 1 mg PO DAILY [facility] Last Admin: 10/23/16 10:13 Dose: 1 mg Gentamicin Sulfate 270 mg/ (Sodium Chloride) 106.75 mls @ 106.75 mls/hr IVPB ONCE [facility] Last Admin: 10/17/16 11:42 Dose: 106.75 mls/hr Micafungin Sodium 100 mg/ (Sodium Chloride) 100 mls @ 100 mls/hr IV DAILY [facility] PRN Reason: Protocol Stop: 10/25/16 10:01 Last Admin: 10/23/16 10:06 Dose: Not Given Meropenem 500 mg/ Sodium (Chloride) 100 mls @ 100 mls/hr IVPB Q12 [facility] PRN Reason: Protocol Stop: 10/30/16 10:01 Last Admin: 10/23/16 10:12 Dose: 100 mls/hr Potassium Chloride 20 meq/ (Sodium Chloride) 1,010 mls @ 200 mls/hr IV .Q5H3M [facility] Stop: 10/23/16 20:35 Last Admin: 10/23/16 12:09 Dose: 200 mls/hr Lactulose (Enulose) 20 gm PO TID [facility] Last Admin: 10/23/16 14:23 Dose: 20 gm Metoclopramide HCl (Reglan) 10 mg IVP Q6H PRN PRN Reason: Other Last Admin: 10/18/16 09:19 Dose: 10 mg Midodrine (Proamatine) 5 mg PO TID [facility] Last Admin: 10/23/16 14:24 Dose: 5 mg Morphine Sulfate (Morphine) 2 mg IVP Q4H PRN PRN Reason: Pain, severe (8-10) Multi-Ingredient Ointment (Hydrophor Oint) 1 gm TOP Q8 [facility] Last Admin: 10/23/16 14:34 Dose: 1 applic Pantoprazole Sodium (Protonix Inj) 40 mg IVP DAILY [facility] Last Admin: 10/23/16 10:16 Dose: 40 mg Thiamine HCl (Vitamin B1 Tab) 100 mg PO DAILY [facility] Last Admin: 10/23/16 10:13 Dose: 100 mg Vitamin A (Vitamin A & D Oint Ud Foilpak) 3 ea TOP TID [facility] Last Admin: 10/23/16 14:25 Dose: 3 ea Vitamin B Complex/Vit C/Folic Acid (Nephro-Mariann) 1 tab PO 0800 [facility] Last Admin: 10/23/16 08:00 Dose: 1 tab - Labs Labs: 10/23/16 05:30 10/23/16 05:30 PT 18.0 Seconds (9.9-11.8) H 10/23/16 05:30 INR 1.67 (0.93-1.08) H 10/23/16 05:30 APTT 34.9 Seconds (23.7-30.8) H 10/23/16 05:30 - Constitutional Appears: No Acute Distress, Chronically Ill - Head Exam Head Exam: NORMAL INSPECTION - Eye Exam Eye Exam: Normal appearance - ENT Exam ENT Exam: Mucous Membranes Moist - Neck Exam Additional comments: +trach - Respiratory Exam Respiratory Exam: Rhonchi, NORMAL BREATHING PATTERN - Cardiovascular Exam Cardiovascular Exam: REGULAR RHYTHM, +S1, +S2 - GI/Abdominal Exam GI & Abdominal Exam: Distended, Soft, Normal Bowel Sounds - Extremities Exam Extremities Exam: Pedal Edema Assessment and Plan - Assessment and Plan (Free Text) Assessment: Patient is 56yo male with end stage liver disease, with fungemia, +Pseudomonas sputum, chronically ill, vent dependent, with toxic metabolic encephalopathy. Respiratory Failure, s/p trach, vent dependent Fungemia EtOh abuse Chronic Liver disease Metabolic Encephalopathy Renal Failure Pseudomonas sputum C diff, resolved - currently afebrile, HD stable, comfortable, off pressors - remains vent dependent, fails weaning trials - remains confused, follows commands minimally, renal function stable - HH 7.7 Recommend: - cont with ventilatory support, with pressure support trials - abx as per ID - cont with midodrine - icont with feeds for today - hold feeds at MN - NPO after MN for PEG tomorrow - Duoenbs - monitor HH - replete K, Mg - DC IVF - GI ppx - DVT ppx, SCDs, NO HSQ 2/2 thrombocytopenia - intermediate teacher planning - poor prognosis
[2016-10-24 06:56] LABS: BASO # 0.01 K/mm3 (0.0-2.0); BASO % 0.1 % (0.0-3.0); EOS % 0.5 % (1.5-5.0); GRAN # 5.89 (1.4-6.5); GRAN % 67.5 % (50.0-68.0); HEMATOCRIT 28.6 % (42.0-52.0); LYMPH # 2.3 (1.2-3.4); LYMPH % 26.4 % (22.0-35.0); MEAN CELL VOLUME 93.8 fl (80.0-105.0); MEAN CORPUSCULAR HEMOGLOBIN 30.8 pg (25.0-35.0); MEAN CORPUSCULAR HGB CONC 32.9 g/dl (31.0-37.0); MEAN PLATELET VOLUME 11.5 fl (7.0-11.0); MONO # 0.5 (0.1-0.6); MONO % 5.5 % (1.0-6.0); RED CELL DISTRIBUTION WIDTH 17.3 % (11.5-14.5); WHITE BLOOD COUNT 8.7 10^3/ul (4.5-11.0)
[2016-10-24 07:56] LABS: ALB/GLOB RATIO 0.6 (1.1-1.8); BILIRUBIN,TOTAL 2.4 mg/dL (0.2-1.3); CALCIUM 7.7 mg/dL (8.4-10.5); MAGNESIUM 1.7 mg/dL (1.7-2.2); PHOSPHOROUS 6.8 mg/dL (2.5-4.5); POTASSIUM 3.8 mmol/L (3.6-5.0); TOTAL PROTEIN 5.3 g/dL (5.8-8.3)
--- NOTE | 2016-10-24 08:07 | CP.PCM.PN ---
Subjective - Date & Time of Evaluation Date of Evaluation: 10/24/16 Time of Evaluation: 08:04 - Subjective Subjective: General Surgery Note for Dr. Ronquillo Patient seen and examined at bedside. Procedure for gastrostomy rescheduled from yesterday 10/23 to this morning. Per ICU team overnight patient had 800 cc red stool coming from rectal tube. Gastrostomy placement on hold until patient is more stable. Hgb 9.4 Plt 86 K 3.8 Objective - Vital Signs/Intake and Output Vital Signs (last 24 hours): Temp Pulse Resp BP Pulse Ox 98.8 F 100 H 36 H 115/55 L 95 10/24/16 07:30 10/24/16 07:30 10/23/16 13:04 10/24/16 07:30 10/24/16 07:30 Intake and Output: 10/24/16 10/24/16 06:59 18:59 Intake Total 1660 Output Total 1400 Balance 260 - Medications Medications: Current Medications Amikacin Sulfate (Amikacin 500 Mg/2ml Inj) 500 mg IH [id number] [facility] Last Admin: 10/23/16 20:00 Dose: 500 mg Artificial Tears (Artificial Tears Opht Oint) 1 gm OU Q6 [facility] Last Admin: 10/23/16 17:04 Dose: 2 applic Folic Acid (Folic Acid) 1 mg PO DAILY [facility] Last Admin: 10/23/16 10:13 Dose: 1 mg Gentamicin Sulfate 270 mg/ (Sodium Chloride) 106.75 mls @ 106.75 mls/hr IVPB ONCE [facility] Last Admin: 10/17/16 11:42 Dose: 106.75 mls/hr Micafungin Sodium 100 mg/ (Sodium Chloride) 100 mls @ 100 mls/hr IV DAILY [facility] PRN Reason: Protocol Stop: 10/25/16 10:01 Last Admin: 10/23/16 10:06 Dose: Not Given Meropenem 500 mg/ Sodium (Chloride) 100 mls @ 100 mls/hr IVPB Q12 [facility] PRN Reason: Protocol Stop: 10/30/16 10:01 Last Admin: 10/23/16 22:06 Dose: 100 mls/hr Potassium Chloride 20 meq/ (Sodium Chloride) 1,010 mls @ 150 mls/hr IV .Q6H44M [facility] Last Admin: 10/23/16 22:09 Dose: 150 mls/hr Potassium Chloride (Potassium Chloride 20 Meq/100 Ml) 20 meq in 100 mls @ 50 mls/hr IVPB Q2H [facility] Stop: 10/24/16 10:29 Lactulose (Enulose) 20 gm PO TID [facility] Last Admin: 10/23/16 17:07 Dose: 20 gm Metoclopramide HCl (Reglan) 10 mg IVP Q6H PRN PRN Reason: Other Last Admin: 10/18/16 09:19 Dose: 10 mg Midodrine (Proamatine) 5 mg PO TID [facility] Last Admin: 10/23/16 17:07 Dose: 5 mg Morphine Sulfate (Morphine) 2 mg IVP Q4H PRN PRN Reason: Pain, severe (8-10) Multi-Ingredient Ointment (Hydrophor Oint) 1 gm TOP Q8 [facility] Last Admin: 10/23/16 14:34 Dose: 1 applic Pantoprazole Sodium (Protonix Inj) 40 mg IVP Q12 [facility] Thiamine HCl (Vitamin B1 Tab) 100 mg PO DAILY [facility] Last Admin: 10/23/16 10:13 Dose: 100 mg Vitamin A (Vitamin A & D Oint Ud Foilpak) 3 ea TOP TID [facility] Last Admin: 10/23/16 17:08 Dose: 3 ea Vitamin B Complex/Vit C/Folic Acid (Nephro-Mariann) 1 tab PO 0800 [facility] Last Admin: 10/23/16 08:00 Dose: 1 tab - Labs Labs: 10/24/16 06:33 10/24/16 06:33 PT 18.0 Seconds (9.9-11.8) H 10/23/16 05:30 INR 1.67 (0.93-1.08) H 10/23/16 05:30 APTT 34.9 Seconds (23.7-30.8) H 10/23/16 05:30 - Constitutional Appears: Non-toxic - Head Exam Head Exam: NORMAL INSPECTION - Eye Exam Eye Exam: EOMI, Normal appearance - ENT Exam ENT Exam: Mucous Membranes Moist - Neck Exam Neck Exam: Full ROM - Respiratory Exam Respiratory Exam: Clear to Ausculation Bilateral, NORMAL BREATHING PATTERN. absent: Accessory Muscle Use, Respiratory Distress - Cardiovascular Exam Cardiovascular Exam: REGULAR RHYTHM. absent: Bradycardia, Tachycardia - GI/Abdominal Exam GI & Abdominal Exam: Soft, Normal Bowel Sounds - Neurological Exam Neurological Exam: Awake - Psychiatric Exam Psychiatric exam: Normal Affect, Normal Mood - Skin Skin Exam: Dry, Intact, Mottled, Pallor Assessment and Plan - Assessment and Plan (Free Text) Assessment: 56 yo M w/ESRD and encephalopathy s/p trachostomy by ENT without feeding access. Plan: Plan Gastrostomy tube placement today is cancelled. to be rescheduled as needed Hold tube feeds for procedure Consent obtained from family and on chart Patient will go to hospice after G-tube placement d/w Dr. Yg De Luna, DO PGY1 surgery pager: [phone]
[2016-10-24] MEDS: AMIKACIN 500 MG/2 ML IH SCH ×2 (08:12→20:10)
[2016-10-24] MEDS: Multivitamin Vitamin B Complex (Nephro-Vite) Tab PO SCH (08:30)
--- NOTE | 2016-10-24 08:56 | CP.PCM.PN ---
Subjective - Date & Time of Evaluation Date of Evaluation: 10/23/16 Time of Evaluation: 11:00 - Subjective Subjective: Patient more alert; still with copious liquid stool; Objective - Vital Signs/Intake and Output Vital Signs (last 24 hours): Temp Pulse Resp BP Pulse Ox 98.8 F 100 H 36 H 115/55 L 95 10/24/16 07:30 10/24/16 07:30 10/23/16 13:04 10/24/16 07:30 10/24/16 07:30 Intake and Output: 10/24/16 10/24/16 06:59 18:59 Intake Total 1660 Output Total 1400 Balance 260 - Medications Medications: Current Medications Amikacin Sulfate (Amikacin 500 Mg/2ml Inj) 500 mg IH [id number] [facility] Last Admin: 10/24/16 08:12 Dose: 500 mg Artificial Tears (Artificial Tears Opht Oint) 1 gm OU Q6 [facility] Last Admin: 10/23/16 17:04 Dose: 2 applic Folic Acid (Folic Acid) 1 mg PO DAILY [facility] Last Admin: 10/23/16 10:13 Dose: 1 mg Gentamicin Sulfate 270 mg/ (Sodium Chloride) 106.75 mls @ 106.75 mls/hr IVPB ONCE [facility] Last Admin: 10/17/16 11:42 Dose: 106.75 mls/hr Micafungin Sodium 100 mg/ (Sodium Chloride) 100 mls @ 100 mls/hr IV DAILY [facility] PRN Reason: Protocol Stop: 10/25/16 10:01 Last Admin: 10/23/16 10:06 Dose: Not Given Meropenem 500 mg/ Sodium (Chloride) 100 mls @ 100 mls/hr IVPB Q12 [facility] PRN Reason: Protocol Stop: 10/30/16 10:01 Last Admin: 10/23/16 22:06 Dose: 100 mls/hr Potassium Chloride 20 meq/ (Sodium Chloride) 1,010 mls @ 150 mls/hr IV .[id number] [facility] Last Admin: 10/23/16 22:09 Dose: 150 mls/hr Potassium Chloride (Potassium Chloride 20 Meq/100 Ml) 20 meq in 100 mls @ 50 mls/hr IVPB Q2H [facility] Stop: 10/24/16 10:29 Last Admin: 10/24/16 08:23 Dose: Not Given Lactulose (Enulose) 20 gm PO TID [facility] Last Admin: 10/23/16 17:07 Dose: 20 gm Metoclopramide HCl (Reglan) 10 mg IVP Q6H PRN PRN Reason: Other Last Admin: 10/18/16 09:19 Dose: 10 mg Midodrine (Proamatine) 5 mg PO TID [facility] Last Admin: 10/23/16 17:07 Dose: 5 mg Morphine Sulfate (Morphine) 2 mg IVP Q4H PRN PRN Reason: Pain, severe (8-10) Multi-Ingredient Ointment (Hydrophor Oint) 1 gm TOP Q8 [facility] Last Admin: 10/23/16 14:34 Dose: 1 applic Pantoprazole Sodium (Protonix Inj) 40 mg IVP Q12 [facility] Thiamine HCl (Vitamin B1 Tab) 100 mg PO DAILY [facility] Last Admin: 10/23/16 10:13 Dose: 100 mg Vitamin A (Vitamin A & D Oint Ud Foilpak) 3 ea TOP TID [facility] Last Admin: 10/23/16 17:08 Dose: 3 ea Vitamin B Complex/Vit C/Folic Acid (Nephro-Mariann) 1 tab PO 0800 [facility] Last Admin: 10/24/16 08:30 Dose: 1 tab - Labs Labs: 10/24/16 06:33 10/24/16 06:33 PT 18.0 Seconds (9.9-11.8) H 10/23/16 05:30 INR 1.67 (0.93-1.08) H 10/23/16 05:30 APTT 34.9 Seconds (23.7-30.8) H 10/23/16 05:30 - Constitutional Appears: Non-toxic, No Acute Distress - Head Exam Head Exam: NORMAL INSPECTION - Eye Exam Eye Exam: Normal appearance - ENT Exam ENT Exam: Mucous Membranes Moist - Respiratory Exam Respiratory Exam: Clear to Ausculation Bilateral Additional comments: tachypneic, overbreathing vent; - Cardiovascular Exam Cardiovascular Exam: RRR, +S1, +S2 - GI/Abdominal Exam GI & Abdominal Exam: Distended, Soft. absent: Tenderness - Exam Additional comments: terrell in place; - Extremities Exam Additional comments: moderately edematous; - Neurological Exam Neurological Exam: Awake (not following commands;) - Skin Skin Exam: Warm. absent: Cyanosis Assessment and Plan (1) Acute renal failure Assessment & Plan: Multifactoriial (ATN, GN, pre-renal); serum creatinine at relative plateau; non- oliguric; continuing IVF (changing to 1/2NS at 150 cc/hr for hypernatremia); Status: Acute (2) Acute hypercapnic respiratory failure Assessment & Plan: Still tachypneic despite correcting serum bicarb; now s/p trach; monitor PCO2 periodically; Status: Acute (3) Hypokalemia Assessment & Plan: In setting of stool losses; getting replenished; adding 20 meq/L KCl to IVF; Status: Acute (4) Hypocalcemia Status: Resolved (5) SIRS (systemic inflammatory response syndrome) Assessment & Plan: With C diff, fungemia and pseudomonas in trach; continuing to hold off on pulse steroids for now (to treat possible GN); Status: Acute (6) Hypernatremia Assessment & Plan: Recurring again in setting of diarrhea; IVF as above; Status: Acute
[2016-10-24] MEDS: Meropenem 500 MG in Sodium Chloride 0.9% 100 ML IVPB SCH ×2 (09:22→21:54)
[2016-10-24] MEDS: Micafungin 100 MG in Sodium Chloride 0.9% 100 ML IV SCH (09:23)
[2016-10-24] MEDS: Vitamins A & D Oint UD Foilpak TOP SCH ×3 (09:28→18:13)
--- NOTE | 2016-10-24 10:04 | CP.PCM.PN ---
Subjective - Date & Time of Evaluation Date of Evaluation: 10/24/16 Time of Evaluation: 09:40 - Subjective Subjective: Patient continues to be on the ventilator, no fevers overnight, still with loose stools through the rectal tube, arousable, but lethargic. Objective - Vital Signs/Intake and Output Vital Signs (last 24 hours): Temp Pulse Resp BP Pulse Ox 98.6 F 90 36 H 110/75 98 10/24/16 03:15 10/24/16 03:15 10/23/16 13:04 10/24/16 03:15 10/24/16 03:15 Intake and Output: 10/23/16 10/24/16 18:59 06:59 Intake Total 960 Output Total 2500 Balance -1540 - Medications Medications: Current Medications Amikacin Sulfate (Amikacin 500 Mg/2ml Inj) 500 mg IH [id number] [facility] Last Admin: 10/23/16 20:00 Dose: 500 mg Artificial Tears (Artificial Tears Opht Oint) 1 gm OU Q6 [facility] Last Admin: 10/23/16 17:04 Dose: 2 applic Folic Acid (Folic Acid) 1 mg PO DAILY [facility] Last Admin: 10/23/16 10:13 Dose: 1 mg Gentamicin Sulfate 270 mg/ (Sodium Chloride) 106.75 mls @ 106.75 mls/hr IVPB ONCE [facility] Last Admin: 10/17/16 11:42 Dose: 106.75 mls/hr Micafungin Sodium 100 mg/ (Sodium Chloride) 100 mls @ 100 mls/hr IV DAILY [facility] PRN Reason: Protocol Stop: 10/25/16 10:01 Last Admin: 10/23/16 10:06 Dose: Not Given Meropenem 500 mg/ Sodium (Chloride) 100 mls @ 100 mls/hr IVPB Q12 [facility] PRN Reason: Protocol Stop: 10/30/16 10:01 Last Admin: 10/23/16 22:06 Dose: 100 mls/hr Potassium Chloride 20 meq/ (Sodium Chloride) 1,010 mls @ 150 mls/hr IV .Q6H44M [facility] Last Admin: 10/23/16 22:09 Dose: 150 mls/hr Potassium Chloride (Potassium Chloride 20 Meq/100 Ml) 20 meq in 100 mls @ 50 mls/hr IVPB Q2H [facility] Stop: 10/24/16 10:29 Lactulose (Enulose) 20 gm PO TID [facility] Last Admin: 10/23/16 17:07 Dose: 20 gm Metoclopramide HCl (Reglan) 10 mg IVP Q6H PRN PRN Reason: Other Last Admin: 10/18/16 09:19 Dose: 10 mg Midodrine (Proamatine) 5 mg PO TID [facility] Last Admin: 10/23/16 17:07 Dose: 5 mg Morphine Sulfate (Morphine) 2 mg IVP Q4H PRN PRN Reason: Pain, severe (8-10) Multi-Ingredient Ointment (Hydrophor Oint) 1 gm TOP Q8 [facility] Last Admin: 10/23/16 14:34 Dose: 1 applic Pantoprazole Sodium (Protonix Inj) 40 mg IVP DAILY [facility] Last Admin: 10/23/16 10:16 Dose: 40 mg Thiamine HCl (Vitamin B1 Tab) 100 mg PO DAILY [facility] Last Admin: 10/23/16 10:13 Dose: 100 mg Vitamin A (Vitamin A & D Oint Ud Foilpak) 3 ea TOP TID [facility] Last Admin: 10/23/16 17:08 Dose: 3 ea Vitamin B Complex/Vit C/Folic Acid (Nephro-Mariann) 1 tab PO 0800 [facility] Last Admin: 10/23/16 08:00 Dose: 1 tab - Labs Labs: 10/23/16 05:30 10/23/16 05:30 PT 18.0 Seconds (9.9-11.8) H 10/23/16 05:30 INR 1.67 (0.93-1.08) H 10/23/16 05:30 APTT 34.9 Seconds (23.7-30.8) H 10/23/16 05:30 - Constitutional Appears: Chronically Ill, Other (on the ventilator) - Neck Exam Neck Exam: absent: Meningismus Additional comments: tracheostomy tube in place - Respiratory Exam Respiratory Exam: Decreased Breath Sounds - Cardiovascular Exam Cardiovascular Exam: +S1, +S2 - GI/Abdominal Exam GI & Abdominal Exam: Distended, Soft. absent: Firm, Guarding, Rigid, Tenderness , Rebound Assessment and Plan - Assessment and Plan (Free Text) Plan: Assessment severe sepsis with ventilator-dependent respiratory failure (now with tracheostomy), respiratory acidosis and acute renal failure probably due to C. albicans fungemia and probable right sided and healthcare-associated pneumonia as well S/P C. diff. colitis liver cirrhosis probably from alcohol abuse; S/P paracentesis; initially presented with delerium tremens;chronic alcohol abuse with history of liver cirrhosis and esophageal varices significant smoking history Plan on Merrem (day 19), aerosolized tobramycin (day 5); S/P 14 days of PO Vancomycin (day 14) will d/c Mycamine, has had 16 days of therapy (repeat blood cx on 10/08/2016 are negative - patient had Ophtho evaluation 2 weeks ago and no endophthalmitis was seen) will continue to monitor clinically patient continues to be in critical condition and overall prognosis is poor - patient is DNR discussed with ICU team
--- NOTE | 2016-10-24 10:43 | CP.PCM.PN ---
<Justo Torres - Last Filed: 10/24/16 10:44> Subjective - Date & Time of Evaluation Date of Evaluation: 10/24/16 Time of Evaluation: 06:40 - Subjective Subjective: Patient was seen and examined at bedside. Per nursing the patient had 800 cc of red stool that was passed overnight. Patient's scheduled G tube is postponed until he is stabilized. ROS unobtainable due to patient's clinical condition. Objective - Vital Signs/Intake and Output Vital Signs (last 24 hours): Temp Pulse Resp BP Pulse Ox 98.8 F 100 H 36 H 115/55 L 95 10/24/16 07:30 10/24/16 07:30 10/23/16 13:04 10/24/16 07:30 10/24/16 07:30 Intake and Output: 10/24/16 10/24/16 06:59 18:59 Intake Total 1660 Output Total 1400 Balance 260 - Medications Medications: Current Medications Amikacin Sulfate (Amikacin 500 Mg/2ml Inj) 500 mg IH [id number] [facility] Last Admin: 10/24/16 08:12 Dose: 500 mg Artificial Tears (Artificial Tears Opht Oint) 1 gm OU Q6 [facility] Last Admin: 10/23/16 17:04 Dose: 2 applic Folic Acid (Folic Acid) 1 mg PO DAILY [facility] Last Admin: 10/24/16 09:27 Dose: 1 mg Gentamicin Sulfate 270 mg/ (Sodium Chloride) 106.75 mls @ 106.75 mls/hr IVPB ONCE [facility] Last Admin: 10/17/16 11:42 Dose: 106.75 mls/hr Meropenem 500 mg/ Sodium (Chloride) 100 mls @ 100 mls/hr IVPB Q12 [facility] PRN Reason: Protocol Stop: 10/30/16 10:01 Last Admin: 10/24/16 09:22 Dose: 100 mls/hr Potassium Chloride 20 meq/ (Sodium Chloride) 1,010 mls @ 150 mls/hr IV .Q6H44M [facility] Last Admin: 10/23/16 22:09 Dose: 150 mls/hr Lactulose (Enulose) 20 gm PO TID [facility] Last Admin: 10/24/16 09:27 Dose: 20 gm Metoclopramide HCl (Reglan) 10 mg IVP Q6H PRN PRN Reason: Other Last Admin: 10/18/16 09:19 Dose: 10 mg Midodrine (Proamatine) 5 mg PO TID [facility] Last Admin: 10/24/16 09:27 Dose: 5 mg Morphine Sulfate (Morphine) 2 mg IVP Q4H PRN PRN Reason: Pain, severe (8-10) Multi-Ingredient Ointment (Hydrophor Oint) 1 gm TOP Q8 [facility] Last Admin: 10/23/16 14:34 Dose: 1 applic Pantoprazole Sodium (Protonix Inj) 40 mg IVP Q12 [facility] Last Admin: 10/24/16 09:27 Dose: 40 mg Thiamine HCl (Vitamin B1 Tab) 100 mg PO DAILY [facility] Last Admin: 10/24/16 09:27 Dose: 100 mg Vitamin A (Vitamin A & D Oint Ud Foilpak) 3 ea TOP TID [facility] Last Admin: 10/24/16 09:28 Dose: 3 ea Vitamin B Complex/Vit C/Folic Acid (Nephro-Mariann) 1 tab PO 0800 [facility] Last Admin: 10/24/16 08:30 Dose: 1 tab - Labs Labs: 10/24/16 06:33 10/24/16 06:33 PT 18.0 Seconds (9.9-11.8) H 10/23/16 05:30 INR 1.67 (0.93-1.08) H 10/23/16 05:30 APTT 34.9 Seconds (23.7-30.8) H 10/23/16 05:30 - Head Exam Head Exam: ATRAUMATIC, NORMAL INSPECTION, NORMOCEPHALIC - Eye Exam Eye Exam: PERRL. absent: Periorbital tenderness Pupil Exam: PERRL - ENT Exam ENT Exam: Mucous Membranes Moist - Neck Exam Additional comments: Trach placed. - Respiratory Exam Respiratory Exam: Clear to Ausculation Bilateral, NORMAL BREATHING PATTERN - Cardiovascular Exam Cardiovascular Exam: REGULAR RHYTHM, RRR, +S1, +S2. absent: Rubs - GI/Abdominal Exam GI & Abdominal Exam: Firm, Normal Bowel Sounds - Back Exam Additional comments: bed ulcers noted per nursing team - Skin Skin Exam: Mottled Assessment and Plan - Assessment and Plan (Free Text) Assessment: 56 year old male with an initial presentation of AMS in the setting of persistent hypokalemia and alcohol withdrawal, which resolved. Patient was then intubated after he was found to be in hypercapnic respiratory failure and subsequently became hemodynamically unstable requiring dual vasopressor support. His presentation is consistent with distributive shock likely from either acute decompensated chronic liver failure or sepsis from C. Diff colitis , with multiorgan dysfunction syndrome including renal failure, encephalopathy and respiratory failure. Patient is no longer requiring vasopressin or levophed for hemodynamic support but is on midodrine. Patient is currently unresponsive to verbal or tactile stimuli off of sedation. Patient is has been transitioned from PRVC to PS/CPAP Plan: Pulmonary: Hypercapnic Respiratory Failure -Patient intubated on 10/05. Today: FiO2= 50%, RR=30, PEEP+5, and Tidal Volume + 400 ml, O2 saturation+97% -ABG: pCO2+39, pO2+52, pH+7.3 -s/p Trach Day 5. -Patient hypotension slightly (111/76) and remains off pressors. -Cardio following -CXR shows no active pulmonary disease. -Continue to monitor vital signs. -Continue Duonebs 3ml IHQ6 HRESP for wheezing symptoms. -Expected to go to [facility] pending. Renal: Acute renal failure most likely secondary to glomerulonephritis -BUN 101 and Creatinine is 2.3 -Urine total protein-897 and Urine Microalbumin >950. -Nephrology consult note appreciated. -No acute indications for HD at this time. Urine output remains steady. -Nephrology consult note appreciate- Hematology: Thrombocytopenia -Plt count now 73 s/p 4 units of Platelets transfused. Continue to monitor plt count and consider another transfusion if patient drops below 20. -Patient currently has no active bleeds. Monitor for bleeding. EtOh Withdrawal -Continue Ativan 2mg IVP Q2H PRN for alcohol withdrawal symptoms. -Continue Thiamine, Folic acid and MV supplementation Ascites -s/p ascitic fluid removed on 10/05. -culture growth negative after 6 days. -MELDS score of 20: 19.3% Mortality risk in 3 month time period. GI: Hepatic encephalopathy -Continue Rifaxamin, Lactulose -Rectal tube in place and currently draining 2800 ml. -Scheduled to have gastrostomy tube placed today by Dr. Ronquillo. Procedure on hold until hemoglobin is more stable. Anemia -Stool occult blood positive on 10/05. -Hgb is 9.4 and Hct is 25.6 Patient is s/p 5 units leukocyte reduced PRBC's. Continue to monitor H/H levels with serial CBC's. Consider Transfusion if Hgb falls below 7. Sepsis/Fungemia -Grew Kamille Albicans -Sputum culture grew Pseudomonas Aeurginosa. -Continue Micafungin (renal dosing) -Patient continues to spike fevers. Started Zyvox and Doxycycline. Will continue to monitor closely. -Continue Merrem, Vancomycin C Diff infection. -Continue Vancomycin -Repeat stool sample pending. Hypokalemia -Potassium today 2.8. Will continue to replete as needed. Will continue to monitor electrolyte levels with serial cmp's. GI ppx -Continue Protonix DVT ppx. <Zoe GALLEGOS,[facility] - Last Filed: 10/25/16 14:51> Objective - Vital Signs/Intake and Output Vital Signs (last 24 hours): Temp Pulse Resp BP Pulse Ox 99.3 F 95 H 20 105/60 100 10/25/16 14:30 10/25/16 14:30 10/24/16 20:00 10/25/16 14:30 10/25/16 14:30 Intake and Output: 10/25/16 10/25/16 06:59 18:59 Intake Total 1200 Output Total 600 Balance 600 - Medications Medications: Current Medications Amikacin Sulfate (Amikacin 500 Mg/2ml Inj) 500 mg IH [id number] [facility] Last Admin: 10/25/16 08:17 Dose: 500 mg Artificial Tears (Artificial Tears Opht Oint) 1 gm OU Q6 [facility] Last Admin: 10/25/16 12:30 Dose: 2 applic Folic Acid (Folic Acid) 1 mg PO DAILY [facility] Last Admin: 10/25/16 09:31 Dose: 1 mg Gentamicin Sulfate 270 mg/ (Sodium Chloride) 106.75 mls @ 106.75 mls/hr IVPB ONCE [facility] Last Admin: 10/17/16 11:42 Dose: 106.75 mls/hr Sodium Chloride (Sodium Chloride 0.45%) 1,000 mls @ 200 mls/hr IV .Q5H [facility] Last Admin: 10/25/16 09:22 Dose: 200 mls/hr Dextrose (Dextrose 5% In Water 1000 Ml) 1,000 mls @ 50 mls/hr IV .Q20H [facility] Last Admin: 10/25/16 13:27 Dose: 50 mls/hr Lactulose (Enulose) 20 gm PO BID [facility] Last Admin: 10/25/16 09:31 Dose: 20 gm Metoclopramide HCl (Reglan) 10 mg IVP Q6H PRN PRN Reason: Other Last Admin: 10/25/16 00:41 Dose: 10 mg Midodrine (Proamatine) 5 mg PO TID [facility] Last Admin: 10/25/16 09:31 Dose: 5 mg Morphine Sulfate (Morphine) 2 mg IVP Q4H PRN PRN Reason: Pain, severe (8-10) Pantoprazole Sodium (Protonix Inj) 40 mg IVP Q12 [facility] Last Admin: 10/25/16 09:31 Dose: 40 mg Thiamine HCl (Vitamin B1 Tab) 100 mg PO DAILY [facility] Last Admin: 10/25/16 09:31 Dose: 100 mg Vitamin B Complex/Vit C/Folic Acid (Nephro-Mariann) 1 tab PO 0800 [facility] Last Admin: 10/25/16 08:36 Dose: 1 tab - Labs Labs: 10/25/16 11:40 10/25/16 06:30 PT 18.0 Seconds (9.9-11.8) H 10/23/16 05:30 INR 1.67 (0.93-1.08) H 10/23/16 05:30 APTT 30.8 Seconds (23.7-30.8) 10/25/16 11:40 Attending/Attestation - Attestation I have personally seen and examined this patient.: Yes I have fully participated in the care of the patient.: Yes I have reviewed all pertinent clinical information, including history, physical exam and plan: Yes Notes (Text): 10/25/16 14:50 Patient was seen and examined with medical office manager. 56 year old male with history of alcohol abuse, cirrhosis who was admitted with AMS, was found to be have alcohol intoxication and sepsis,was intubated later on. He was also found to have oliguric acute renal failure ,anemia , thrombocytopenia, SBP,HCAP,~cdiff~and fungemia~ Rectal tube is in. . He was unable to wean off and underwent tracheotomy yesterday, still on high FIO ,, requiring ventilatory support, mental status is mildly improved but still very poor.He is awaiting for PEG tube placement. Renal functions are stable, Nephrology is following. Sepsis on antibiotics Meropenem and Amikacin as per ID. Patient is DNR/ DNI. Prognosis is guarde
[2016-10-24 10:56] LABS: ARTERIAL BLOOD GAS HCO3 19.5 mmol/L (21-28); ARTERIAL BLOOD GAS PH 7.33 (7.35-7.45); ATERIAL BLOOD GAS PEEP 5
--- NOTE | 2016-10-24 11:46 | CP.CCUPN ---
<KENDY CERNA - Last Filed: 10/24/16 11:31> CCU Subjective - Physician Review Subjective (Free Text): 10/24/16 11:49 Patient was seen and assessed at bedside. Patient intubated on PRVC mode and without sedation, however patient continues to be unresponsive to verbal, tactile and painful stimuli. Per nursing, patient was draining melena and bright red blood in his rectal drainage. He remained hemodynamically stable throughout the night, requiring no interventions. Blood bank notified and has two units of pRBC's ready for transfusion should they be needed. ROS unobtainable due to clinical condition of patient. CCU Objective - Vital Signs / Intake & Output Intake and Output (Last 8hrs): Intake & Output 10/23/16 10/24/16 10/24/16 22:59 06:59 14:59 Intake Total 960 1660 Output Total 2500 1400 Balance -1540 260 Intake: IV 900 1540 medicine 600 100 sodium 0.45/ potassium 300 1440 20meq Tube Feeding 60 120 Output: Urine 700 600 Urethral (Vyas) 700 600 Stool 1800 800 - Physical Exam Head: Positive for: Atraumatic, Normocephalic Pupils: Positive for: PERRL Extroacular Muscles: Positive for: EOMI Conjunctiva: Positive for: Normal Ears: Positive for: Normal Mouth: Positive for: Moist Mucous Membranes, Other Nose (External): Positive for: Atraumatic Nose (Internal): Positive for: Other (Dobbhoff tube in position in L nares) Neck: Positive for: Normal Range of Motion, Trachea Midline, Other ( Tracheostomy insertion site without signs of infection). Negative for: Lymphadenopathy Respiratory/Chest: Positive for: Clear to Auscultation, Good Air Exchange, Tachypneic, Other (Mechanical ventilation). Negative for: Respiratory Distress , Accessory Muscle Use, Wheezes, Decreased Breath Sounds, Retracting, Rhonchi Cardiovascular: Positive for: Regular Rate and Rhythm, Normal S1, S2. Negative for: Murmurs Abdomen: Positive for: Normal Bowel Sounds, Other (Paracentesis site with sutures, no signs of infection, dressing clean, dry and intact; rectal tube draining melena). Negative for: Tenderness, Distention, Peritoneal Signs Genitourinary Male: Positive for: Other (Vyas in place, no signs of infection) . Negative for: Testicle Swelling Back: Positive for: Normal Inspection Upper Extremity: Positive for: Edema (1+ pitting edema B/L UE). Negative for: Normal Inspection (Multiple areas of ecchymoses), Cyanosis Lower Extremity: Positive for: Edema (1+ Pitting edema B/L up to thighs). Negative for: Normal Inspection Neurological: Positive for: Other (Gag and corneal reflex intact; ability to track motion with eyes intact). Negative for: GCS=15 (GCS of 3T), CN II-XII Intact, Speech Normal Skin: Positive for: Warm, Other (Area of erythema on the presacral area of the lower back measuring approximately 2-3cm with no skin ulceration; currently unstageable ). Negative for: Rashes, Normal Color (multiple ecchymoses over UE B/L) Psychiatric: Negative for: Alert (arousable to tactile stimuli), Oriented x 3, Normal Insight, Normal Concentration - Medications Active Medications: Active Medications Generic Name Dose Route Start Last Admin Trade Name Freq PRN Reason Stop Dose Admin Amikacin Sulfate 500 mg 10/19/16 20:00 10/24/16 08:12 Amikacin 500 Mg/2ml Inj IH 500 mg [id number] TONI Administration Artificial Tears 1 gm 10/10/16 18:00 10/23/16 17:04 Artificial Tears Opht Oint OU 2 applic Q6 TONI Administration Folic Acid 1 mg 10/03/16 10:00 10/24/16 09:27 Folic Acid PO 1 mg DAILY TONI Administration Gentamicin Sulfate 270 mg/ 106.75 mls @ 106.75 mls/hr 10/15/16 10:00 11:42 Sodium Chloride IVPB 106.75 mls/hr ONCE TONI Administration Meropenem 500 mg/ Sodium 100 mls @ 100 mls/hr 10/21/16 10:00 10/24/16 09:22 Chloride IVPB 10/30/16 10:01 100 mls/hr Q12 TONI Administration Protocol Sodium Chloride 1,000 mls @ 200 mls/hr 10/24/16 11:14 Sodium Chloride 0.45% IV .Q5H TONI Lactulose 20 gm 10/11/16 10:00 10/24/16 09:27 Enulose PO 20 gm TID TONI Administration Metoclopramide HCl 10 mg 10/09/16 16:56 10/18/16 09:19 Reglan IVP 10 mg Q6H PRN Administration Other Midodrine 5 mg 10/09/16 10:00 10/24/16 09:27 Proamatine PO 5 mg TID TONI Administration Morphine Sulfate 2 mg 10/22/16 00:52 Morphine IVP Q4H PRN Pain, severe (8-10) Multi-Ingredient Ointment 1 gm 10/22/16 07:45 10/23/16 14:34 Hydrophor Oint TOP 1 applic Q8 TONI Administration Pantoprazole Sodium 40 mg 10/24/16 10:00 10/24/16 09:27 Protonix Inj IVP 40 mg Q12 TONI Administration Thiamine HCl 100 mg 10/03/16 10:00 10/24/16 09:27 Vitamin B1 Tab PO 100 mg DAILY TONI Administration Vitamin A 3 ea 10/22/16 10:00 10/24/16 09:28 Vitamin A & D Oint Ud Foilpak TOP 3 ea TID TONI Administration Vitamin B Complex/Vit C/Folic Acid 1 tab 10/03/16 08:00 10/24/16 08:30 Nephro-Mariann PO 1 tab 0800 TONI Administration - Patient Studies Lab Studies: Microbiology Studies 10/23/16 11:38 C. difficile Antigen & Toxin A,B (M - Final Stool 10/21/16 10:11 C. difficile Antigen & Toxin A,B (M - Final Stool Lab Studies 10/24/16 10/24/16 10/24/16 Range/Units 10:50 08:09 06:33 WBC (4.5-11.0) 10^3/ul RBC (3.5-6.1) 10^6/uL Hgb (14.0-18.0) g/dL Hct (42.0-52.0) % MCV (80.0-105.0) fl MCH (25.0-35.0) pg MCHC (31.0-37.0) g/dl RDW (11.5-14.5) % Plt Count (120.0-450.0) 10^3/uL MPV (7.0-11.0) fl Gran % (50.0-68.0) % Lymph % (Auto) (22.0-35.0) % [place] % (Auto) (1.0-6.0) % Eos % (Auto) (1.5-5.0) % Baso % (Auto) (0.0-3.0) % Gran # (1.4-6.5) Lymph # (1.2-3.4) [place] # (0.1-0.6) Eos # (0.0-0.7) Baso # (0.0-2.0) K/mm3 pCO2 37 (35-45) mm/Hg pO2 88.0 (80-100) mm/Hg HCO3 19.5 L (21-28) mmol/L ABG pH 7.33 L (7.35-7.45) ABG Total CO2 20.6 L (22-28) mmol.L ABG O2 Saturation 98.7 H (95-98) % ABG Base Excess -5.8 L (-2.0-3.0) mmol/L ABG Potassium 3.4 L (3.6-5.2) mmol/L Glucose 86 (75-110) mg/dl Lactate 0.9 (0.7-2.1) mmol/L FiO2 50.0 % PEEP 5 Sodium 145.0 148 (132-148) mmol/L Potassium 3.8 (3.6-5.0) mmol/L Chloride 117.0 H 115 H (98-107) mmol/L Carbon Dioxide 24 (21-33) mmol/L Anion Gap 13 (10-20) BUN 97 H (7-21) mg/dL Creatinine 2.2 H (0.5-1.4) mg/dL Est GFR ( Amer) 38 Est GFR (Non-Af Amer) 31 Random Glucose 84 (70-110) mg/dL Calcium 7.7 L (8.4-10.5) mg/dL Phosphorus 6.8 H (2.5-4.5) mg/dL Magnesium 1.7 (1.7-2.2) mg/dL Total Bilirubin 2.4 H (0.2-1.3) mg/dL AST 100 H (17-59) U/L ALT 88 H (7-56) U/L Alkaline Phosphatase 88 (38-126) U/L Total Protein 5.3 L (5.8-8.3) g/dL Albumin 2.0 L (3.0-4.8) g/dL Globulin 3.3 gm/dL Albumin/Globulin Ratio 0.6 L (1.1-1.8) Arterial Blood Potassium 3.4 L (3.6-5.2) mmol/L Stool Occult Blood Positive H (NEGATIVE) Blood Type Antibody Screen Crossmatch BBK History Checked 10/24/16 10/22/16 Range/Units 06:33 15:10 WBC 8.7 D (4.5-11.0) 10^3/ul RBC 3.05 L (3.5-6.1) 10^6/uL Hgb 9.4 L (14.0-18.0) g/dL Hct 28.6 L (42.0-52.0) % MCV 93.8 (80.0-105.0) fl MCH 30.8 (25.0-35.0) pg MCHC 32.9 (31.0-37.0) g/dl RDW 17.3 H (11.5-14.5) % Plt Count 86 L (120.0-450.0) 10^3/uL MPV 11.5 H (7.0-11.0) fl Gran % 67.5 (50.0-68.0) % Lymph % (Auto) 26.4 (22.0-35.0) % [place] % (Auto) 5.5 (1.0-6.0) % Eos % (Auto) 0.5 L (1.5-5.0) % Baso % (Auto) 0.1 (0.0-3.0) % Gran # 5.89 (1.4-6.5) Lymph # 2.3 (1.2-3.4) [place] # 0.5 (0.1-0.6) Eos # 0.0 (0.0-0.7) Baso # 0.01 (0.0-2.0) K/mm3 pCO2 (35-45) mm/Hg pO2 (80-100) mm/Hg HCO3 (21-28) mmol/L ABG pH (7.35-7.45) ABG Total CO2 (22-28) mmol.L ABG O2 Saturation (95-98) % ABG Base Excess (-2.0-3.0) mmol/L ABG Potassium (3.6-5.2) mmol/L Glucose (75-110) mg/dl Lactate (0.7-2.1) mmol/L FiO2 % PEEP Sodium (132-148) mmol/L Potassium (3.6-5.0) mmol/L Chloride (98-107) mmol/L Carbon Dioxide (21-33) mmol/L Anion Gap (10-20) BUN (7-21) mg/dL Creatinine (0.5-1.4) mg/dL Est GFR ( Amer) Est GFR (Non-Af Amer) Random Glucose (70-110) mg/dL Calcium (8.4-10.5) mg/dL Phosphorus (2.5-4.5) mg/dL Magnesium (1.7-2.2) mg/dL Total Bilirubin (0.2-1.3) mg/dL AST (17-59) U/L ALT (7-56) U/L Alkaline Phosphatase (38-126) U/L Total Protein (5.8-8.3) g/dL Albumin (3.0-4.8) g/dL Globulin gm/dL Albumin/Globulin Ratio (1.1-1.8) Arterial Blood Potassium (3.6-5.2) mmol/L Stool Occult Blood (NEGATIVE) Blood Type O POSITIVE Antibody Screen Negative Crossmatch See Detail BBK History Checked Patient has bt Laboratory Results - last 24 hr 10/22/16 10/24/16 10/24/16 15:10 06:33 06:33 WBC 8.7 D RBC 3.05 L Hgb 9.4 L Hct 28.6 L MCV 93.8 MCH 30.8 MCHC 32.9 RDW 17.3 H Plt Count 86 L MPV 11.5 H Gran % 67.5 Lymph % (Auto) 26.4 [place] % (Auto) 5.5 Eos % (Auto) 0.5 L Baso % (Auto) 0.1 Gran # 5.89 Lymph # 2.3 [place] # 0.5 Eos # 0.0 Baso # 0.01 pCO2 pO2 HCO3 ABG pH ABG Total CO2 ABG O2 Saturation ABG Base Excess ABG Potassium Glucose Lactate FiO2 PEEP Sodium 148 Potassium 3.8 Chloride 115 H Carbon Dioxide 24 Anion Gap 13 BUN 97 H Creatinine 2.2 H Est GFR ( Amer) 38 Est GFR (Non-Af Amer) 31 Random Glucose 84 Calcium 7.7 L Phosphorus 6.8 H Magnesium 1.7 Total Bilirubin 2.4 H AST 100 H ALT 88 H Alkaline Phosphatase 88 Total Protein 5.3 L Albumin 2.0 L Globulin 3.3 Albumin/Globulin Ratio 0.6 L Arterial Blood Potassium Stool Occult Blood Blood Type O POSITIVE Antibody Screen Negative Crossmatch See Detail BBK History Checked Patient has bt 10/24/16 10/24/16 08:09 10:50 WBC RBC Hgb Hct MCV MCH MCHC RDW Plt Count MPV Gran % Lymph % (Auto) [place] % (Auto) Eos % (Auto) Baso % (Auto) Gran # Lymph # [place] # Eos # Baso # pCO2 37 pO2 88.0 HCO3 19.5 L ABG pH 7.33 L ABG Total CO2 20.6 L ABG O2 Saturation 98.7 H ABG Base Excess -5.8 L ABG Potassium 3.4 L Glucose 86 Lactate 0.9 FiO2 50.0 PEEP 5 Sodium 145.0 Potassium Chloride 117.0 H Carbon Dioxide Anion Gap BUN Creatinine Est GFR ( Amer) Est GFR (Non-Af Amer) Random Glucose Calcium Phosphorus Magnesium Total Bilirubin AST ALT Alkaline Phosphatase Total Protein Albumin Globulin Albumin/Globulin Ratio Arterial Blood Potassium 3.4 L Stool Occult Blood Positive H Blood Type Antibody Screen Crossmatch BBK History Checked Fingerstick Blood Sugar Results: 105 Review of Systems - Review of Systems Review of Systems: Please refer to [facility] Critical Care Progress Note - Ventilator Checklist Head of Bed 30 Degrees: Yes Daily Assessment of Readiness to Wean: Yes PUD Prophalyxis: Yes DVT Prophylaxis: Yes Oral Care with Chlorhexidine Gluconate {CHG}: Yes - Extremities/Vascular Does the Patient have a Central Venous Catheter?: No Does the Patient need a Central Venous Catheter?: No Does the Patient have a Vyas Catheter?: Yes Does the Patient need a Vyas Catheter?: Yes - Prophylaxis GI Prophylaxis GI: PPI - Prophylaxis DVT Prophylaxis DVT: SCDs Assessment/Plan - Assessment and Plan (Free Text) Assessment: 56 year old male with an initial presentation of AMS in the setting of persistent hypokalemia and alcohol withdrawal, which resolved. Patient was then intubated after he was found to be in hypercapnic respiratory failure and subsequently became hemodynamically unstable requiring dual vasopressor support. His presentation is consistent with distributive shock likely from either acute decompensated chronic liver failure or sepsis from C. Diff colitis , with multiorgan dysfunction syndrome including renal failure, encephalopathy and respiratory failure. Patient is no longer requiring vasopressin or levophed for hemodynamic support but is on midodrine. Patient is currently unresponsive to verbal or tactile stimuli off of sedation. Patient currently on PRVC and is s /p tracheostomy placement on 10/19. Patient was scheduled for open G-Tube placement on 10/24 but this was cancelled as patient has melena/BRB in his rectal drainage. Plan: Neuro: -Current GCS of 6 ([id number]) -Currently intubated with no sedation and unresponsive to verbal, tactile or painful stimuli -Continue Lactulose 20mg TID -Continue Thiamine, Folic Acid and MV supplementation Pulm: Mechanical ventilation settings on [facility] currently at: FiO2-50 PEEP-5 RR-30 TV-400 -Chest X-Ray on 10/22 showed patchy bilateral mid to lower lobe infiltrates with more confluent opacification in the left perihilar region and questionable small right-sided effusion -Continue Amikacin 500mg IH [id number] for pseudomonas tracheobronchtits -Continue protective lung ventilation strategy and VAP prevention strategies, including maintaining HOB greater that 35 degrees, oral hygiene, chlorhexidine in the posterior pharynx and GI/DVT prophylaxis -Continue daily PS/CPAP weaning trials as tolerated -Continue Duonebs 3ml IH [id number] for wheezing -ENT consulted, all recommendations appreciated Cardio: -Continue midodrine 5mg PO TID -Cardiology consulted, appreciate all recommendations GI: -Gastrostomy tube placement scheduled for 10/24 cancelled due to melena/blood in his rectal drainage -Gastrostomy tube placement rescheduled for 10/26 pending request for EGD -FOBT positive, with stable vitals and H/H, reconsulted GI and awaiting new recommendations -Continue Vital AF 1.2 TF at 30mls/hr -Continue Lactulose 20mg TID -Continue Reglan 10mg IVP Q6H PRN -Rectal tube in place and currently draining 2600cc over the past 24 hours -GI and Surgery consulted, all recommendations appreciated Renal: -BUN/Creatinine at 97/2.2, representing improvement of acute kidney injury -Continue 1/2 Normal Saline at 150ml/hr -Continue free water flushes 150ml Q6H as tolerated -Vyas catheter in place and draining 1300cc over the past 24 hours -Will continue to replete calcium, magnesium, phosphorus and potassium as needed -Will continue to monitor with serial CMP's with magnesium and phosphorous levels -Nephrology consulted, all recommendations appreciated Endocrine: -Will maintain euglycemia with blood glucose between 140 and 180 Heme/Onc: -H/H stable at 9.4/28.6, on 10/20 -Platelets 84 -Transfused two units of pRBC's over the past 48 hours with appropriate responses noted in CBC -Repeat CBC pending -Will continue to monitor with serial CBC's MSK: -Area of erythema on presacral area measuring approximately 2cm with no skin breakage -Continue to turn patient Q2H to prevent ulceration and air mattress -PT/OT evaluation and treatment ordered, stated that they will see patient when he is more clinically appropriate for therapy ID: -Currently on Amikacin 500mg IH [id number] (Day 4), Merrem 250mg IVPB Q12 (day 18) , and Doxycycline 100mg IVPB Q12 (Day 6); Gentamycin at 106.75mls/hr IVPB (Day 4 ) (currently held as trough was elevated to 7.5) -Currently afebrile, normotensive, and non-tachycardic with no leukocytosis -Micafungin discontinued for previous fungemia -Repeat C.Diff negative, precautions lifted -Most recent blood and urine cultures negative for growth -Sputum culture drawn on 10/14 grew Pseudomonas Aeruginosa, susceptible to Merrem and Gentamycin -Continue active patient cooling with cooling blankets for temperatures over 100.4 -ID consulted, all recommendations appreciated Lines: -Continue all peripheral lines GI Prophylaxis: Protonix DVT Prophylaxis: SCD's Disposition: Poor prognosis overall and will need longterm care in a specialized facility. Patient seen and case discussed in detail with attending, Dr. Hinojosa. - Date & Time Date: 10/24/16 Time: 11:31 <Otto Hinojosa - Last Filed: 10/24/16 17:54> CCU Objective - Vital Signs / Intake & Output Vital Signs (Last 4 hours): Vital Signs Temp Pulse BP Pulse Ox 10/24/16 15:25 98.4 F 10/24/16 15:15 98.4 F 96 H 91/57 L 100 10/24/16 15:00 98.4 F 92 H 91/59 L 100 10/24/16 14:45 98.4 F 100 H 85/54 L 100 10/24/16 14:30 98.4 F 93 H 97/59 L 100 10/24/16 14:15 98.4 F 99 H 112/71 86 L 10/24/16 14:00 98.4 F 88 104/63 100 Intake and Output (Last 8hrs): Intake & Output 10/24/16 10/24/16 10/24/16 06:59 14:59 22:59 Intake Total 1660 Output Total 1400 Balance 260 Weight 244 lb Intake: IV 1540 medicine 100 sodium 0.45/ potassium 1440 20meq Tube Feeding 120 Output: Urine 600 Urethral (Vyas) 600 Stool 800 - Medications Active Medications: Active Medications Generic Name Dose Route Start Last Admin Trade Name Freq PRN Reason Stop Dose Admin Amikacin Sulfate 500 mg 10/19/16 20:00 10/24/16 08:12 Amikacin 500 Mg/2ml Inj IH 500 mg [id number] TONI Administration Artificial Tears 1 gm 10/10/16 18:00 10/24/16 12:04 Artificial Tears Opht Oint OU Not Given Q6 TONI Folic Acid 1 mg 10/03/16 10:00 10/24/16 09:27 Folic Acid PO 1 mg DAILY TONI Administration Gentamicin Sulfate 270 mg/ 106.75 mls @ 106.75 mls/hr 10/15/16 10:00 11:42 Sodium Chloride IVPB 106.75 mls/hr ONCE TONI Administration Meropenem 500 mg/ Sodium 100 mls @ 100 mls/hr 10/21/16 10:00 10/24/16 09:22 Chloride IVPB 10/30/16 10:01 100 mls/hr Q12 TONI Administration Protocol Sodium Chloride 1,000 mls @ 200 mls/hr 10/24/16 11:14 10/24/16 12:00 Sodium Chloride 0.45% IV 200 mls/hr .Q5H TONI Administration Lactulose 20 gm 10/24/16 18:00 Enulose PO BID TONI Metoclopramide HCl 10 mg 10/09/16 16:56 10/18/16 09:19 Reglan IVP 10 mg Q6H PRN Administration Other Midodrine 5 mg 10/09/16 10:00 10/24/16 13:31 Proamatine PO 5 mg TID TONI Administration Morphine Sulfate 2 mg 10/22/16 00:52 Morphine IVP Q4H PRN Pain, severe (8-10) Multi-Ingredient Ointment 1 gm 10/22/16 07:45 10/24/16 13:30 Hydrophor Oint TOP 1 applic Q8 TONI Administration Pantoprazole Sodium 40 mg 10/24/16 10:00 10/24/16 09:27 Protonix Inj IVP 40 mg Q12 TONI Administration Thiamine HCl 100 mg 10/03/16 10:00 10/24/16 09:27 Vitamin B1 Tab PO 100 mg DAILY TONI Administration Vitamin A 3 ea 10/22/16 10:00 10/24/16 13:30 Vitamin A & D Oint Ud Foilpak TOP 3 ea TID TONI Administration Vitamin B Complex/Vit C/Folic Acid 1 tab 10/03/16 08:00 10/24/16 08:30 Nephro-Mariann PO 1 tab 0800 TONI Administration - Patient Studies Lab Studies: Microbiology Studies 10/23/16 11:38 C. difficile Antigen & Toxin A,B (M - Final Stool 10/21/16 10:11 C. difficile Antigen & Toxin A,B (M - Final Stool Lab Studies 10/24/16 10/24/16 10/24/16 Range/Units 13:20 13:20 13:20 WBC 8.2 (4.5-11.0) 10^3/ul RBC 2.76 L (3.5-6.1) 10^6/uL Hgb 8.5 L (14.0-18.0) g/dL Hct 26.2 L (42.0-52.0) % MCV 94.9 (80.0-105.0) fl MCH 30.8 (25.0-35.0) pg MCHC 32.4 (31.0-37.0) g/dl RDW 17.4 H (11.5-14.5) % Plt Count 77 L (120.0-450.0) 10^3/uL MPV 11.5 H (7.0-11.0) fl Gran % 60.0 (50.0-68.0) % Lymph % (Auto) 31.4 (22.0-35.0) % [place] % (Auto) 8.0 H (1.0-6.0) % Eos % (Auto) 0.5 L (1.5-5.0) % Baso % (Auto) 0.1 (0.0-3.0) % Gran # 4.92 (1.4-6.5) Lymph # 2.6 (1.2-3.4) [place] # 0.7 H (0.1-0.6) Eos # 0.0 (0.0-0.7) Baso # 0.01 (0.0-2.0) K/mm3 pCO2 (35-45) mm/Hg pO2 (80-100) mm/Hg HCO3 (21-28) mmol/L ABG pH (7.35-7.45) ABG Total CO2 (22-28) mmol.L ABG O2 Saturation (95-98) % ABG Base Excess (-2.0-3.0) mmol/L ABG Potassium (3.6-5.2) mmol/L Glucose (75-110) mg/dl Lactate (0.7-2.1) mmol/L FiO2 % PEEP Sodium (132-148) mmol/L Potassium 3.8 (3.6-5.0) mmol/L Chloride (98-107) mmol/L Carbon Dioxide (21-33) mmol/L Anion Gap (10-20) BUN (7-21) mg/dL Creatinine (0.5-1.4) mg/dL Est GFR ( Amer) Est GFR (Non-Af Amer) Random Glucose (70-110) mg/dL Calcium (8.4-10.5) mg/dL Phosphorus (2.5-4.5) mg/dL Magnesium (1.7-2.2) mg/dL Total Bilirubin (0.2-1.3) mg/dL AST (17-59) U/L ALT (7-56) U/L Alkaline Phosphatase (38-126) U/L Ammonia < 9 L (9-33) umol/L Total Protein (5.8-8.3) g/dL Albumin (3.0-4.8) g/dL Globulin gm/dL Albumin/Globulin Ratio (1.1-1.8) Arterial Blood Potassium (3.6-5.2) mmol/L Stool Occult Blood (NEGATIVE) Blood Type Antibody Screen Crossmatch BBK History Checked 10/24/16 10/24/16 10/24/16 Range/Units 10:50 08:09 06:33 WBC (4.5-11.0) 10^3/ul RBC (3.5-6.1) 10^6/uL Hgb (14.0-18.0) g/dL Hct (42.0-52.0) % MCV (80.0-105.0) fl MCH (25.0-35.0) pg MCHC (31.0-37.0) g/dl RDW (11.5-14.5) % Plt Count (120.0-450.0) 10^3/uL MPV (7.0-11.0) fl Gran % (50.0-68.0) % Lymph % (Auto) (22.0-35.0) % [place] % (Auto) (1.0-6.0) % Eos % (Auto) (1.5-5.0) % Baso % (Auto) (0.0-3.0) % Gran # (1.4-6.5) Lymph # (1.2-3.4) [place] # (0.1-0.6) Eos # (0.0-0.7) Baso # (0.0-2.0) K/mm3 pCO2 37 (35-45) mm/Hg pO2 88.0 (80-100) mm/Hg HCO3 19.5 L (21-28) mmol/L ABG pH 7.33 L (7.35-7.45) ABG Total CO2 20.6 L (22-28) mmol.L ABG O2 Saturation 98.7 H (95-98) % ABG Base Excess -5.8 L (-2.0-3.0) mmol/L ABG Potassium 3.4 L (3.6-5.2) mmol/L Glucose 86 (75-110) mg/dl Lactate 0.9 (0.7-2.1) mmol/L FiO2 50.0 % PEEP 5 Sodium 145.0 148 (132-148) mmol/L Potassium 3.8 (3.6-5.0) mmol/L Chloride 117.0 H 115 H (98-107) mmol/L Carbon Dioxide 24 (21-33) mmol/L Anion Gap 13 (10-20) BUN 97 H (7-21) mg/dL Creatinine 2.2 H (0.5-1.4) mg/dL Est GFR ( Amer) 38 Est GFR (Non-Af Amer) 31 Random Glucose 84 (70-110) mg/dL Calcium 7.7 L (8.4-10.5) mg/dL Phosphorus 6.8 H (2.5-4.5) mg/dL Magnesium 1.7 (1.7-2.2) mg/dL Total Bilirubin 2.4 H (0.2-1.3) mg/dL AST 100 H (17-59) U/L ALT 88 H (7-56) U/L Alkaline Phosphatase 88 (38-126) U/L Ammonia (9-33) umol/L Total Protein 5.3 L (5.8-8.3) g/dL Albumin 2.0 L (3.0-4.8) g/dL Globulin 3.3 gm/dL Albumin/Globulin Ratio 0.6 L (1.1-1.8) Arterial Blood Potassium 3.4 L (3.6-5.2) mmol/L Stool Occult Blood Positive H (NEGATIVE) Blood Type Antibody Screen Crossmatch BBK History Checked 10/24/16 10/22/16 Range/Units 06:33 15:10 WBC 8.7 D (4.5-11.0) 10^3/ul RBC 3.05 L (3.5-6.1) 10^6/uL Hgb 9.4 L (14.0-18.0) g/dL Hct 28.6 L (42.0-52.0) % MCV 93.8 (80.0-105.0) fl MCH 30.8 (25.0-35.0) pg MCHC 32.9 (31.0-37.0) g/dl RDW 17.3 H (11.5-14.5) % Plt Count 86 L (120.0-450.0) 10^3/uL MPV 11.5 H (7.0-11.0) fl Gran % 67.5 (50.0-68.0) % Lymph % (Auto) 26.4 (22.0-35.0) % [place] % (Auto) 5.5 (1.0-6.0) % Eos % (Auto) 0.5 L (1.5-5.0) % Baso % (Auto) 0.1 (0.0-3.0) % Gran # 5.89 (1.4-6.5) Lymph # 2.3 (1.2-3.4) [place] # 0.5 (0.1-0.6) Eos # 0.0 (0.0-0.7) Baso # 0.01 (0.0-2.0) K/mm3 pCO2 (35-45) mm/Hg pO2 (80-100) mm/Hg HCO3 (21-28) mmol/L ABG pH (7.35-7.45) ABG Total CO2 (22-28) mmol.L ABG O2 Saturation (95-98) % ABG Base Excess (-2.0-3.0) mmol/L ABG Potassium (3.6-5.2) mmol/L Glucose (75-110) mg/dl Lactate (0.7-2.1) mmol/L FiO2 % PEEP Sodium (132-148) mmol/L Potassium (3.6-5.0) mmol/L Chloride (98-107) mmol/L Carbon Dioxide (21-33) mmol/L Anion Gap (10-20) BUN (7-21) mg/dL Creatinine (0.5-1.4) mg/dL Est GFR ( Amer) Est GFR (Non-Af Amer) Random Glucose (70-110) mg/dL Calcium (8.4-10.5) mg/dL Phosphorus (2.5-4.5) mg/dL Magnesium (1.7-2.2) mg/dL Total Bilirubin (0.2-1.3) mg/dL AST (17-59) U/L ALT (7-56) U/L Alkaline Phosphatase (38-126) U/L Ammonia (9-33) umol/L Total Protein (5.8-8.3) g/dL Albumin (3.0-4.8) g/dL Globulin gm/dL Albumin/Globulin Ratio (1.1-1.8) Arterial Blood Potassium (3.6-5.2) mmol/L Stool Occult Blood (NEGATIVE) Blood Type O POSITIVE Antibody Screen Negative Crossmatch See Detail BBK History Checked Patient has bt Laboratory Results - last 24 hr 10/22/16 10/24/16 10/24/16 15:10 06:33 06:33 WBC 8.7 D RBC 3.05 L Hgb 9.4 L Hct 28.6 L MCV 93.8 MCH 30.8 MCHC 32.9 RDW 17.3 H Plt Count 86 L MPV 11.5 H Gran % 67.5 Lymph % (Auto) 26.4 [place] % (Auto) 5.5 Eos % (Auto) 0.5 L Baso % (Auto) 0.1 Gran # 5.89 Lymph # 2.3 [place] # 0.5 Eos # 0.0 Baso # 0.01 pCO2 pO2 HCO3 ABG pH ABG Total CO2 ABG O2 Saturation ABG Base Excess ABG Potassium Glucose Lactate FiO2 PEEP Sodium 148 Potassium 3.8 Chloride 115 H Carbon Dioxide 24 Anion Gap 13 BUN 97 H Creatinine 2.2 H Est GFR ( Amer) 38 Est GFR (Non-Af Amer) 31 Random Glucose 84 Calcium 7.7 L Phosphorus 6.8 H Magnesium 1.7 Total Bilirubin 2.4 H AST 100 H ALT 88 H Alkaline Phosphatase 88 Ammonia Total Protein 5.3 L Albumin 2.0 L Globulin 3.3 Albumin/Globulin Ratio 0.6 L Arterial Blood Potassium Stool Occult Blood Blood Type O POSITIVE Antibody Screen Negative Crossmatch See Detail BBK History Checked Patient has bt 10/24/16 10/24/16 10/24/16 08:09 10:50 13:20 WBC RBC Hgb Hct MCV MCH MCHC RDW Plt Count MPV Gran % Lymph % (Auto) [place] % (Auto) Eos % (Auto) Baso % (Auto) Gran # Lymph # [place] # Eos # Baso # pCO2 37 pO2 88.0 HCO3 19.5 L ABG pH 7.33 L ABG Total CO2 20.6 L ABG O2 Saturation 98.7 H ABG Base Excess -5.8 L ABG Potassium 3.4 L Glucose 86 Lactate 0.9 FiO2 50.0 PEEP 5 Sodium 145.0 Potassium 3.8 Chloride 117.0 H Carbon Dioxide Anion Gap BUN Creatinine Est GFR ( Amer) Est GFR (Non-Af Amer) Random Glucose Calcium Phosphorus Magnesium Total Bilirubin AST ALT Alkaline Phosphatase Ammonia Total Protein Albumin Globulin Albumin/Globulin Ratio Arterial Blood Potassium 3.4 L Stool Occult Blood Positive H Blood Type Antibody Screen Crossmatch BBK History Checked 10/24/16 10/24/16 13:20 13:20 WBC 8.2 RBC 2.76 L Hgb 8.5 L Hct 26.2 L MCV 94.9 MCH 30.8 MCHC 32.4 RDW 17.4 H Plt Count 77 L MPV 11.5 H Gran % 60.0 Lymph % (Auto) 31.4 [place] % (Auto) 8.0 H Eos % (Auto) 0.5 L Baso % (Auto) 0.1 Gran # 4.92 Lymph # 2.6 [place] # 0.7 H Eos # 0.0 Baso # 0.01 pCO2 pO2 HCO3 ABG pH ABG Total CO2 ABG O2 Saturation ABG Base Excess ABG Potassium Glucose Lactate FiO2 PEEP Sodium Potassium Chloride Carbon Dioxide Anion Gap BUN Creatinine Est GFR ( Amer) Est GFR (Non-Af Amer) Random Glucose Calcium Phosphorus Magnesium Total Bilirubin AST ALT Alkaline Phosphatase Ammonia < 9 L Total Protein Albumin Globulin Albumin/Globulin Ratio Arterial Blood Potassium Stool Occult Blood Blood Type Antibody Screen Crossmatch BBK History Checked Attending/Attestation - Attestation I have personally seen and examined this patient.: Yes I have fully participated in the care of the patient.: Yes I have reviewed all pertinent clinical information: Yes Notes (Text): 10/24/16 17:52 56 yo ESLD and VDRF. Tolerates PS 10/5. CXR improved RLL infiltrate. No leukocytosis and afebrile. cont meropenem and inhaled amikacin, cont weaning. dvt/gi prophylaxis. HOB>35, oral hygiene. will restart ng feeds. c.diff -ve. ok to d/c isolation ccm time 40 min
[2016-10-24] MEDS: Sodium Chloride 0.45% 1,000 ML IV SCH ×3 (12:00→21:55)
[2016-10-24] MEDS: Mineral Oil/Petrolatum Opht Oint(3.5 gm) OU SCH ×2 (12:04→18:11)
--- NOTE | 2016-10-24 12:40 | RAD ---
HISTORY: pneumonia COMPARISON: 10/22/2016 FINDINGS: In situ tracheostomy tube in good position. . The in situ feeding tube tip of which overlies left parasagittal upper abdomen. LUNGS: Persistent residual but mildly improved bilateral infiltrates. There may be small left-sided effusion. PLEURA: No significant pleural effusion identified, no pneumothorax apparent. CARDIOVASCULAR: Normal. OSSEOUS STRUCTURES: No significant abnormalities. VISUALIZED UPPER ABDOMEN: Normal. OTHER FINDINGS: None. IMPRESSION: Persistent residual but mildly improved bilateral infiltrates. There may be small left-sided effusion.
[2016-10-24 13:26] LABS: BASO # 0.01 K/mm3 (0.0-2.0); BASO % 0.1 % (0.0-3.0); EOS % 0.5 % (1.5-5.0); GRAN # 4.92 (1.4-6.5); HEMATOCRIT 26.2 % (42.0-52.0); LYMPH # 2.6 (1.2-3.4); LYMPH % 31.4 % (22.0-35.0); MEAN CELL VOLUME 94.9 fl (80.0-105.0); MEAN CORPUSCULAR HEMOGLOBIN 30.8 pg (25.0-35.0); MEAN CORPUSCULAR HGB CONC 32.4 g/dl (31.0-37.0); MEAN PLATELET VOLUME 11.5 fl (7.0-11.0); MONO # 0.7 (0.1-0.6); RED CELL DISTRIBUTION WIDTH 17.4 % (11.5-14.5); WHITE BLOOD COUNT 8.2 10^3/ul (4.5-11.0)
[2016-10-24] MEDS: Petrolatum-Mineral Oil Oint (100gm) TOP SCH ×2 (13:30→21:55)
[2016-10-24 18:35] LABS: BASO # 0.01 K/mm3 (0.0-2.0); BASO % 0.1 % (0.0-3.0); EOS # 0.1 (0.0-0.7); EOS % 0.8 % (1.5-5.0); GRAN % 63.7 % (50.0-68.0); HEMATOCRIT 24.1 % (42.0-52.0); LYMPH # 2.3 (1.2-3.4); LYMPH % 29.1 % (22.0-35.0); MEAN CELL VOLUME 95.3 fl (80.0-105.0); MEAN CORPUSCULAR HEMOGLOBIN 31.6 pg (25.0-35.0); MEAN CORPUSCULAR HGB CONC 33.2 g/dl (31.0-37.0); MEAN PLATELET VOLUME 10.6 fl (7.0-11.0); MONO # 0.5 (0.1-0.6); MONO % 6.3 % (1.0-6.0); RED CELL DISTRIBUTION WIDTH 17.2 % (11.5-14.5); WHITE BLOOD COUNT 7.8 10^3/ul (4.5-11.0)
[2016-10-24 18:42] LABS: ARTERIAL BLOOD GAS HCO3 20.2 mmol/L (21-28); ARTERIAL BLOOD GAS O2 CAPACITY 10.7 mL/dl (16-24); ARTERIAL BLOOD GAS O2 CONTENT 10.6 ML/dl (15-23); ARTERIAL BLOOD HGB O2 SAT 96.4 % (95.0-98.0); CARBOXYHEMOGLOBIN 1.9 % (0.5-1.5); HHB 0.6 % (0-5); METHEMOGLOBIN 1.2 % (0.0-3.0)
[2016-10-25 00:38] LABS: MEAN CELL VOLUME 94.5 fl (80.0-105.0); MEAN CORPUSCULAR HEMOGLOBIN 30.4 pg (25.0-35.0); MEAN CORPUSCULAR HGB CONC 32.2 g/dl (31.0-37.0); MEAN PLATELET VOLUME 11.1 fl (7.0-11.0); RED CELL DISTRIBUTION WIDTH 17.3 % (11.5-14.5); WHITE BLOOD COUNT 10.6 10^3/ul (4.5-11.0)
[2016-10-25] MEDS: Mineral Oil/Petrolatum Opht Oint(3.5 gm) OU SCH ×5 (00:40→19:41)
[2016-10-25 00:44] LABS: HEMATOCRIT 23.9 % (42.0-52.0)
[2016-10-25] MEDS: Sodium Chloride 0.45% 1,000 ML IV SCH ×3 (05:02→21:14)
[2016-10-25] MEDS: Petrolatum-Mineral Oil Oint (100gm) TOP SCH (05:02)
[2016-10-25 06:06] LABS: ARTERIAL BLOOD GAS HCO3 18.5 mmol/L (21-28); ARTERIAL BLOOD GAS O2 CAPACITY 9.6 mL/dl (16-24); ARTERIAL BLOOD GAS O2 CONTENT 9.6 ML/dl (15-23); ARTERIAL BLOOD GAS PH 7.37 (7.35-7.45); ARTERIAL BLOOD HGB O2 SAT 95.7 % (95.0-98.0); CARBOXYHEMOGLOBIN 2.3 % (0.5-1.5); HHB 0.4 % (0-5); METHEMOGLOBIN 1.6 % (0.0-3.0)
--- NOTE | 2016-10-25 07:26 | RAD ---
HISTORY: Mech vent COMPARISON: Portable chest 10/24/2016. FINDINGS: Tracheostomy tube is unchanged in position. Feeding tube has been retracted terminating at the upper to mid esophagus region. Advancement into the stomach with confirmation radiograph is advised. Skin folds are identified in the inferior right lung zone. LUNGS: Diminished bilateral infiltrates are appreciated with residual noted at the medial right base and left infrahilar space. No definite pleural effusion bilaterally. No pneumothorax bilaterally. PLEURA: As above. CARDIOVASCULAR: Normal. OSSEOUS STRUCTURES: No significant abnormalities. VISUALIZED UPPER ABDOMEN: Normal. OTHER FINDINGS: None. IMPRESSION: Diminishing bilateral infiltrates with limited residual noted at the medial right base and left infrahilar region. The feeding tube is been retracted now terminating at the upper mid esophagus region in the mediastinum. Advancing the tube into the stomach with confirmation radiography is advised. Findings discussed with Nurse Andino, 10/25/2016 7:20 a.m. with written down and read back confirmation.
[2016-10-25 07:27] LABS: BASO # 0.01 K/mm3 (0.0-2.0); BASO % 0.1 % (0.0-3.0); EOS # 0.1 (0.0-0.7); EOS % 0.7 % (1.5-5.0); GRAN # 5.91 (1.4-6.5); GRAN % 65.3 % (50.0-68.0); LYMPH # 2.5 (1.2-3.4); LYMPH % 28.1 % (22.0-35.0); MEAN CELL VOLUME 94.2 fl (80.0-105.0); MEAN CORPUSCULAR HEMOGLOBIN 30.4 pg (25.0-35.0); MEAN CORPUSCULAR HGB CONC 32.3 g/dl (31.0-37.0); MEAN PLATELET VOLUME 12.2 fl (7.0-11.0); MONO # 0.5 (0.1-0.6); MONO % 5.8 % (1.0-6.0); RED CELL DISTRIBUTION WIDTH 17.3 % (11.5-14.5)
[2016-10-25 07:42] LABS: HEMATOCRIT 22.6 % (42.0-52.0)
[2016-10-25 07:53] LABS: ALB/GLOB RATIO 0.6 (1.1-1.8); CALCIUM 7.2 mg/dL (8.4-10.5); MAGNESIUM 1.6 mg/dL (1.7-2.2); PHOSPHOROUS 6.2 mg/dL (2.5-4.5); POTASSIUM 3.5 mmol/L (3.6-5.0); TOTAL PROTEIN 4.6 g/dL (5.8-8.3)
[2016-10-25] MEDS: AMIKACIN 500 MG/2 ML IH SCH ×2 (08:17→20:00)
[2016-10-25] MEDS: Multivitamin Vitamin B Complex (Nephro-Vite) Tab PO SCH ×2 (08:36→16:45)
[2016-10-25] MEDS ORDERED: Magnesium Sulfate 2 GM in Sodium Chloride 0.9% 100 ML IVPB ONE (08:38)
[2016-10-25] MEDS: Meropenem 500 MG in Sodium Chloride 0.9% 100 ML IVPB SCH (09:22)
--- NOTE | 2016-10-25 09:27 | CP.PCM.PN ---
Subjective - Date & Time of Evaluation Date of Evaluation: 10/24/16 Time of Evaluation: 12:00 - Subjective Subjective: Patient still with copious liquid stool output in flexiseal; gastrostomy tube placement again postponed; Objective - Vital Signs/Intake and Output Vital Signs (last 24 hours): Temp Pulse Resp BP Pulse Ox 99.3 F 100 H 20 123/76 97 10/25/16 07:45 10/25/16 07:55 10/24/16 20:00 10/25/16 07:45 10/25/16 07:45 Intake and Output: 10/25/16 10/25/16 06:59 18:59 Intake Total 1200 Output Total 600 Balance 600 - Medications Medications: Current Medications Amikacin Sulfate (Amikacin 500 Mg/2ml Inj) 500 mg IH [id number] [facility] Last Admin: 10/25/16 08:17 Dose: 500 mg Artificial Tears (Artificial Tears Opht Oint) 1 gm OU Q6 [facility] Last Admin: 10/25/16 05:01 Dose: Not Given Folic Acid (Folic Acid) 1 mg PO DAILY [facility] Last Admin: 10/24/16 09:27 Dose: 1 mg Gentamicin Sulfate 270 mg/ (Sodium Chloride) 106.75 mls @ 106.75 mls/hr IVPB ONCE [facility] Last Admin: 10/17/16 11:42 Dose: 106.75 mls/hr Meropenem 500 mg/ Sodium (Chloride) 100 mls @ 100 mls/hr IVPB Q12 [facility] PRN Reason: Protocol Stop: 10/30/16 10:01 Last Admin: 10/24/16 21:54 Dose: 100 mls/hr Sodium Chloride (Sodium Chloride 0.45%) 1,000 mls @ 200 mls/hr IV .Q5H [facility] Last Admin: 10/25/16 05:02 Dose: 200 mls/hr Potassium Chloride (Potassium Chloride 10 Meq/100 Ml) 10 meq in 100 mls @ 100 mls/hr IVPB Q2H [facility] Stop: 10/25/16 11:44 Magnesium Sulfate 2 gm/ Sodium (Chloride) 104 mls @ 102 mls/hr IVPB ONCE ONE Stop: 10/25/16 09:39 Lactulose (Enulose) 20 gm PO BID [facility] Last Admin: 10/24/16 18:12 Dose: Not Given Metoclopramide HCl (Reglan) 10 mg IVP Q6H PRN PRN Reason: Other Last Admin: 10/25/16 00:41 Dose: 10 mg Midodrine (Proamatine) 5 mg PO TID [facility] Last Admin: 10/24/16 18:15 Dose: 5 mg Morphine Sulfate (Morphine) 2 mg IVP Q4H PRN PRN Reason: Pain, severe (8-10) Multi-Ingredient Ointment (Hydrophor Oint) 1 gm TOP Q8 [facility] Last Admin: 10/25/16 05:02 Dose: 1 applic Pantoprazole Sodium (Protonix Inj) 40 mg IVP Q12 [facility] Last Admin: 10/24/16 21:57 Dose: 40 mg Thiamine HCl (Vitamin B1 Tab) 100 mg PO DAILY [facility] Last Admin: 10/24/16 09:27 Dose: 100 mg Vitamin A (Vitamin A & D Oint Ud Foilpak) 3 ea TOP TID [facility] Last Admin: 10/24/16 18:13 Dose: 3 ea Vitamin B Complex/Vit C/Folic Acid (Nephro-Mariann) 1 tab PO 0800 [facility] Last Admin: 10/24/16 08:30 Dose: 1 tab - Labs Labs: 10/25/16 06:30 10/25/16 06:30 PT 18.0 Seconds (9.9-11.8) H 10/23/16 05:30 INR 1.67 (0.93-1.08) H 10/23/16 05:30 APTT 34.9 Seconds (23.7-30.8) H 10/23/16 05:30 - Constitutional Appears: Non-toxic, No Acute Distress - Eye Exam Eye Exam: Normal appearance - ENT Exam ENT Exam: Mucous Membranes Moist - Respiratory Exam Respiratory Exam: Clear to Ausculation Bilateral Additional comments: tachypneic - Cardiovascular Exam Cardiovascular Exam: RRR, +S1, +S2 - GI/Abdominal Exam GI & Abdominal Exam: Distended, Soft. absent: Tenderness - Extremities Exam Additional comments: moderately edematous - Neurological Exam Neurological Exam: Awake Additional comments: not following commands; - Skin Skin Exam: Warm. absent: Cyanosis Assessment and Plan (1) Acute renal failure Assessment & Plan: Multifactorial at this point but stable renal function; will continue IVF to offset GI losses and prevent further pre-renal azotemia; avoid nephrotoxic agents; Status: Acute (2) Acute hypercapnic respiratory failure Status: Acute (3) Hypokalemia Assessment & Plan: Improved; continue to replenish prn; Status: Acute (4) Hypocalcemia Status: Resolved (5) SIRS (systemic inflammatory response syndrome) Status: Acute (6) Hypernatremia Assessment & Plan: Again worsening; increasing 1/2NS to 200 cc/hr; Status: Acute
[2016-10-25] MEDS: Vitamins A & D Oint UD Foilpak TOP SCH (09:31)
--- NOTE | 2016-10-25 10:16 | CP.PCM.PN ---
Subjective - Date & Time of Evaluation Date of Evaluation: 10/25/16 Time of Evaluation: 07:00 - Subjective Subjective: General Surgery Progress note for Dr. Ronquillo Patient stable. H/H 7.3 from 7.7. NAEON. Trach in place, patient is ventilating well. Patient explained that procedure is scheduled for tomorrow. will follow for updates. Objective - Vital Signs/Intake and Output Vital Signs (last 24 hours): Temp Pulse Resp BP Pulse Ox 99.3 F 100 H 20 123/76 97 10/25/16 07:45 10/25/16 07:55 10/24/16 20:00 10/25/16 07:45 10/25/16 07:45 Intake and Output: 10/25/16 10/25/16 06:59 18:59 Intake Total 1200 Output Total 600 Balance 600 - Medications Medications: Current Medications Amikacin Sulfate (Amikacin 500 Mg/2ml Inj) 500 mg IH [id number] [facility] Last Admin: 10/25/16 08:17 Dose: 500 mg Artificial Tears (Artificial Tears Opht Oint) 1 gm OU Q6 [facility] Last Admin: 10/25/16 05:01 Dose: Not Given Folic Acid (Folic Acid) 1 mg PO DAILY [facility] Last Admin: 10/25/16 09:31 Dose: 1 mg Gentamicin Sulfate 270 mg/ (Sodium Chloride) 106.75 mls @ 106.75 mls/hr IVPB ONCE [facility] Last Admin: 10/17/16 11:42 Dose: 106.75 mls/hr Meropenem 500 mg/ Sodium (Chloride) 100 mls @ 100 mls/hr IVPB Q12 [facility] PRN Reason: Protocol Stop: 10/30/16 10:01 Last Admin: 10/25/16 09:22 Dose: 100 mls/hr Sodium Chloride (Sodium Chloride 0.45%) 1,000 mls @ 200 mls/hr IV .Q5H [facility] Last Admin: 10/25/16 09:22 Dose: 200 mls/hr Potassium Chloride (Potassium Chloride 10 Meq/100 Ml) 10 meq in 100 mls @ 100 mls/hr IVPB Q2H [facility] Stop: 10/25/16 11:44 Dextrose (Dextrose 5% In Water 1000 Ml) 1,000 mls @ 50 mls/hr IV .Q20H [facility] Lactulose (Enulose) 20 gm PO BID [facility] Last Admin: 10/25/16 09:31 Dose: 20 gm Metoclopramide HCl (Reglan) 10 mg IVP Q6H PRN PRN Reason: Other Last Admin: 10/25/16 00:41 Dose: 10 mg Midodrine (Proamatine) 5 mg PO TID [facility] Last Admin: 10/25/16 09:31 Dose: 5 mg Morphine Sulfate (Morphine) 2 mg IVP Q4H PRN PRN Reason: Pain, severe (8-10) Multi-Ingredient Ointment (Hydrophor Oint) 1 gm TOP Q8 [facility] Last Admin: 10/25/16 05:02 Dose: 1 applic Pantoprazole Sodium (Protonix Inj) 40 mg IVP Q12 [facility] Last Admin: 10/25/16 09:31 Dose: 40 mg Thiamine HCl (Vitamin B1 Tab) 100 mg PO DAILY [facility] Last Admin: 10/25/16 09:31 Dose: 100 mg Vitamin A (Vitamin A & D Oint Ud Foilpak) 3 ea TOP TID [facility] Last Admin: 10/25/16 09:31 Dose: 3 ea Vitamin B Complex/Vit C/Folic Acid (Nephro-Mariann) 1 tab PO 0800 [facility] Last Admin: 10/25/16 08:36 Dose: 1 tab - Labs Labs: 10/25/16 06:30 10/25/16 06:30 PT 18.0 Seconds (9.9-11.8) H 10/23/16 05:30 INR 1.67 (0.93-1.08) H 10/23/16 05:30 APTT 34.9 Seconds (23.7-30.8) H 10/23/16 05:30 - Constitutional Appears: Non-toxic - Head Exam Head Exam: NORMAL INSPECTION - Eye Exam Eye Exam: EOMI, Normal appearance - ENT Exam ENT Exam: Mucous Membranes Moist - Neck Exam Additional comments: trach in place. ventilations FiO2 50% - Respiratory Exam Respiratory Exam: absent: Accessory Muscle Use, Respiratory Distress - Cardiovascular Exam Cardiovascular Exam: REGULAR RHYTHM. absent: Bradycardia, Tachycardia - GI/Abdominal Exam GI & Abdominal Exam: Distended. absent: Tenderness, Pulsatile Mass - Extremities Exam Extremities Exam: absent: Pedal Edema - Neurological Exam Neurological Exam: Alert, Awake - Psychiatric Exam Psychiatric exam: Flat Affect, Normal Mood - Skin Skin Exam: Dry, Pallor Assessment and Plan - Assessment and Plan (Free Text) Assessment: 56 yo M w/ESRD and encephalopathy s/p trachostomy by ENT dobhoff for feeding Plan: Plan Gastrostomy tube placement scheduled for tomorrow per Dr. Ronquillo continue tube feeds, but hold tube feeds for procedure Consent obtained from family and on chart Patient will go to hospice after G-tube placement d/w Dr. Yg De Luna DO PGY1 surgery pager: [phone]
--- NOTE | 2016-10-25 10:30 | CP.PCM.PN ---
Subjective - Date & Time of Evaluation Date of Evaluation: 10/25/16 Time of Evaluation: 09:40 - Subjective Subjective: Continues to be on the ventilator, opens eyes with tactile stimuli, no fevers overnight. Objective - Vital Signs/Intake and Output Vital Signs (last 24 hours): Temp Pulse Resp BP Pulse Ox 98.2 F 95 H 20 115/68 96 10/25/16 01:00 10/25/16 01:00 10/24/16 20:00 10/25/16 01:00 10/25/16 01:00 Intake and Output: 10/24/16 10/25/16 18:59 06:59 Intake Total 2630 Output Total 2200 Balance 430 - Medications Medications: Current Medications Amikacin Sulfate (Amikacin 500 Mg/2ml Inj) 500 mg IH [id number] [facility] Last Admin: 10/24/16 20:10 Dose: 500 mg Artificial Tears (Artificial Tears Opht Oint) 1 gm OU Q6 [facility] Last Admin: 10/25/16 05:01 Dose: Not Given Folic Acid (Folic Acid) 1 mg PO DAILY [facility] Last Admin: 10/24/16 09:27 Dose: 1 mg Gentamicin Sulfate 270 mg/ (Sodium Chloride) 106.75 mls @ 106.75 mls/hr IVPB ONCE [facility] Last Admin: 10/17/16 11:42 Dose: 106.75 mls/hr Meropenem 500 mg/ Sodium (Chloride) 100 mls @ 100 mls/hr IVPB Q12 [facility] PRN Reason: Protocol Stop: 10/30/16 10:01 Last Admin: 10/24/16 21:54 Dose: 100 mls/hr Sodium Chloride (Sodium Chloride 0.45%) 1,000 mls @ 200 mls/hr IV .Q5H [facility] Last Admin: 10/25/16 05:02 Dose: 200 mls/hr Lactulose (Enulose) 20 gm PO BID [facility] Last Admin: 10/24/16 18:12 Dose: Not Given Metoclopramide HCl (Reglan) 10 mg IVP Q6H PRN PRN Reason: Other Last Admin: 10/25/16 00:41 Dose: 10 mg Midodrine (Proamatine) 5 mg PO TID [facility] Last Admin: 10/24/16 18:15 Dose: 5 mg Morphine Sulfate (Morphine) 2 mg IVP Q4H PRN PRN Reason: Pain, severe (8-10) Multi-Ingredient Ointment (Hydrophor Oint) 1 gm TOP Q8 [facility] Last Admin: 10/25/16 05:02 Dose: 1 applic Pantoprazole Sodium (Protonix Inj) 40 mg IVP Q12 [facility] Last Admin: 10/24/16 21:57 Dose: 40 mg Thiamine HCl (Vitamin B1 Tab) 100 mg PO DAILY [facility] Last Admin: 10/24/16 09:27 Dose: 100 mg Vitamin A (Vitamin A & D Oint Ud Foilpak) 3 ea TOP TID [facility] Last Admin: 10/24/16 18:13 Dose: 3 ea Vitamin B Complex/Vit C/Folic Acid (Nephro-Mariann) 1 tab PO 0800 [facility] Last Admin: 10/24/16 08:30 Dose: 1 tab - Labs Labs: 10/25/16 00:10 10/24/16 13:20 PT 18.0 Seconds (9.9-11.8) H 10/23/16 05:30 INR 1.67 (0.93-1.08) H 10/23/16 05:30 APTT 34.9 Seconds (23.7-30.8) H 10/23/16 05:30 - Constitutional Appears: Chronically Ill, Other (on the ventilator) - Neck Exam Neck Exam: absent: Meningismus Additional comments: tracheostomy tube in place - Respiratory Exam Respiratory Exam: Decreased Breath Sounds - Cardiovascular Exam Cardiovascular Exam: +S1, +S2 - GI/Abdominal Exam GI & Abdominal Exam: Soft. absent: Tenderness Assessment and Plan - Assessment and Plan (Free Text) Plan: Assessment severe sepsis with ventilator-dependent respiratory failure (now with tracheostomy), respiratory acidosis and acute renal failure probably due to probable right sided and healthcare-associated pneumonia with Pseudomonas S/P C. albicans fungemia S/P C. diff. colitis liver cirrhosis probably from alcohol abuse; S/P paracentesis; initially presented with delerium tremens;chronic alcohol abuse with history of liver cirrhosis and esophageal varices significant smoking history Plan on Merrem (day 20 overall, day 11 since isolation of Pseudomonas in the sputum) , aerosolized tobramycin (day 6); S/P 14 days of PO Vancomycin (day 14) - will d /c Merrem S/P Mycamine, had 16 days of therapy (repeat blood cx on 10/08/2016 are negative - patient had Ophtho evaluation 2 weeks ago and no endophthalmitis was seen) will continue to monitor clinically patient continues to be in critical condition and overall prognosis is poor - patient is DNR discussed with ICU team
[2016-10-25 11:51] LABS: BASO # 0.02 K/mm3 (0.0-2.0); BASO % 0.2 % (0.0-3.0); EOS # 0.1 (0.0-0.7); EOS % 0.7 % (1.5-5.0); GRAN # 5.51 (1.4-6.5); GRAN % 66.3 % (50.0-68.0); LYMPH # 2.1 (1.2-3.4); LYMPH % 25.2 % (22.0-35.0); MEAN CELL VOLUME 96.4 fl (80.0-105.0); MEAN CORPUSCULAR HEMOGLOBIN 31.3 pg (25.0-35.0); MEAN CORPUSCULAR HGB CONC 32.4 g/dl (31.0-37.0); MEAN PLATELET VOLUME 11.8 fl (7.0-11.0); MONO # 0.6 (0.1-0.6); MONO % 7.6 % (1.0-6.0); RED CELL DISTRIBUTION WIDTH 17.6 % (11.5-14.5); WHITE BLOOD COUNT 8.3 10^3/ul (4.5-11.0)
[2016-10-25 11:54] LABS: HEMATOCRIT 21.6 % (42.0-52.0)
--- NOTE | 2016-10-25 12:27 | CP.PCM.PN ---
<Justo Torres - Last Filed: 10/25/16 12:32> Subjective - Date & Time of Evaluation Date of Evaluation: 10/25/16 Time of Evaluation: 08:28 - Subjective Subjective: Patient was seen and examined at bedside. Patient still on PRVC mode with no sedation. Patient continues to be unresponsive, although questionable eye tracking is occurring. ROS unobtainable due to patient's clinical condition. Objective - Vital Signs/Intake and Output Vital Signs (last 24 hours): Temp Pulse Resp BP Pulse Ox 99.6 F 104 H 20 105/66 100 10/25/16 12:00 10/25/16 12:00 10/24/16 20:00 10/25/16 12:00 10/25/16 12:00 Intake and Output: 10/25/16 10/25/16 06:59 18:59 Intake Total 1200 Output Total 600 Balance 600 - Medications Medications: Current Medications Amikacin Sulfate (Amikacin 500 Mg/2ml Inj) 500 mg IH [id number] [facility] Last Admin: 10/25/16 08:17 Dose: 500 mg Artificial Tears (Artificial Tears Opht Oint) 1 gm OU Q6 [facility] Last Admin: 10/25/16 05:01 Dose: Not Given Folic Acid (Folic Acid) 1 mg PO DAILY [facility] Last Admin: 10/25/16 09:31 Dose: 1 mg Gentamicin Sulfate 270 mg/ (Sodium Chloride) 106.75 mls @ 106.75 mls/hr IVPB ONCE [facility] Last Admin: 10/17/16 11:42 Dose: 106.75 mls/hr Sodium Chloride (Sodium Chloride 0.45%) 1,000 mls @ 200 mls/hr IV .Q5H [facility] Last Admin: 10/25/16 09:22 Dose: 200 mls/hr Dextrose (Dextrose 5% In Water 1000 Ml) 1,000 mls @ 50 mls/hr IV .Q20H [facility] Lactulose (Enulose) 20 gm PO BID [facility] Last Admin: 10/25/16 09:31 Dose: 20 gm Metoclopramide HCl (Reglan) 10 mg IVP Q6H PRN PRN Reason: Other Last Admin: 10/25/16 00:41 Dose: 10 mg Midodrine (Proamatine) 5 mg PO TID [facility] Last Admin: 10/25/16 09:31 Dose: 5 mg Morphine Sulfate (Morphine) 2 mg IVP Q4H PRN PRN Reason: Pain, severe (8-10) Multi-Ingredient Ointment (Hydrophor Oint) 1 gm TOP Q8 [facility] Last Admin: 10/25/16 05:02 Dose: 1 applic Pantoprazole Sodium (Protonix Inj) 40 mg IVP Q12 [facility] Last Admin: 10/25/16 09:31 Dose: 40 mg Thiamine HCl (Vitamin B1 Tab) 100 mg PO DAILY [facility] Last Admin: 10/25/16 09:31 Dose: 100 mg Vitamin A (Vitamin A & D Oint Ud Foilpak) 3 ea TOP TID [facility] Last Admin: 10/25/16 09:31 Dose: 3 ea Vitamin B Complex/Vit C/Folic Acid (Nephro-Mariann) 1 tab PO 0800 [facility] Last Admin: 10/25/16 08:36 Dose: 1 tab - Labs Labs: 10/25/16 11:40 10/25/16 06:30 PT 18.0 Seconds (9.9-11.8) H 10/23/16 05:30 INR 1.67 (0.93-1.08) H 10/23/16 05:30 APTT 30.8 Seconds (23.7-30.8) 10/25/16 11:40 - Head Exam Head Exam: ATRAUMATIC, NORMAL INSPECTION, NORMOCEPHALIC - Eye Exam Eye Exam: EOMI, Normal appearance, PERRL. absent: Periorbital tenderness Pupil Exam: NORMAL ACCOMODATION, PERRL - ENT Exam ENT Exam: Mucous Membranes Moist - Neck Exam Additional comments: Trach placed. - Respiratory Exam Respiratory Exam: Clear to Ausculation Bilateral. absent: Rhonchi - Cardiovascular Exam Cardiovascular Exam: REGULAR RHYTHM, RRR, +S1. absent: Gallop, Rubs - GI/Abdominal Exam GI & Abdominal Exam: Firm, Normal Bowel Sounds - Rectal Exam Additional comments: Rectal tube draining red stool per nursing. - Back Exam Additional comments: Unstageable Bed ulcers per nursing. - Neurological Exam Neurological Exam: Alert, Altered. absent: Awake, CN II-XII Intact, Normal Gait - Skin Skin Exam: Mottled Assessment and Plan - Assessment and Plan (Free Text) Assessment: 56 year old male with an initial presentation of AMS in the setting of persistent hypokalemia and alcohol withdrawal, which resolved. Patient was then intubated after he was found to be in hypercapnic respiratory failure and subsequently became hemodynamically unstable requiring dual vasopressor support. His presentation is consistent with distributive shock likely from either acute decompensated chronic liver failure or sepsis from C. Diff colitis , with multiorgan dysfunction syndrome including renal failure, encephalopathy and respiratory failure. Patient is no longer requiring vasopressin or levophed for hemodynamic support but is on midodrine. Patient is currently unresponsive to verbal or tactile stimuli off of sedation. Patient is has been transitioned from PRVC to PS/CPAP Plan: Pulmonary: Hypercapnic Respiratory Failure -Patient intubated on 10/05. Today: FiO2= 40%, RR=30, PEEP+5, and Tidal Volume + 400 ml, O2 saturation+97% -ABG: pCO2+39, pO2+52, pH+7.3 -s/p Trach Day 6. -Patient hypotension slightly (117/62) and remains off pressors. -Cardio following -CXR shows no active pulmonary disease. -Continue to monitor vital signs. -Continue Duonebs 3ml IHQ6 HRESP for wheezing symptoms. -Expected to go to [facility] pending. Renal: Acute renal failure most likely secondary to glomerulonephritis -BUN 93 and Creatinine is 1.9 -Urine total protein-897 and Urine Microalbumin >950. -Nephrology consult note appreciated. -No acute indications for HD at this time. Urine output remains steady. -Nephrology consult note appreciate- Hematology: Thrombocytopenia -Plt count now 73 s/p 4 units of Platelets transfused. Continue to monitor plt count and consider another transfusion if patient drops below 20. -Patient currently has no active bleeds. Monitor for bleeding. EtOh Withdrawal -Continue Ativan 2mg IVP Q2H PRN for alcohol withdrawal symptoms. -Continue Thiamine, Folic acid and MV supplementation Ascites -s/p ascitic fluid removed on 10/05. -culture growth negative after 6 days. -MELDS score of 20: 19.3% Mortality risk in 3 month time period. GI: Hepatic encephalopathy -Continue Rifaxamin, Lactulose -Rectal tube in place and currently draining 2800 ml. -Scheduled to have gastrostomy tube placed today by Dr. Ronquillo. Procedure on hold until hemoglobin is more stable. Anemia -Stool occult blood positive on 10/05. -Hgb is 9.4 and Hct is 25.6 Patient is s/p 5 units leukocyte reduced PRBC's. Continue to monitor H/H levels with serial CBC's. Consider Transfusion if Hgb falls below 7. Sepsis/Fungemia -Grew Kamille Albicans -Sputum culture grew Pseudomonas [place]in[place]. -Continue Micafungin (renal dosing) -Patient continues to spike fevers. Started Zyvox and Doxycycline. Will continue to monitor closely. -Continue Merrem, Vancomycin C Diff infection. -Continue Vancomycin -Repeat stool sample pending. Hypokalemia -Potassium today 3.5. Will continue to replete as needed. Will continue to monitor electrolyte levels with serial cmp's. GI ppx -Continue Protonix DVT ppx. <Zoe GALLEGOS,Jacob - Last Filed: 10/26/16 14:24> Objective - Vital Signs/Intake and Output Vital Signs (last 24 hours): Temp Pulse Resp BP Pulse Ox 99.0 F 98 H 36 H 104/68 96 10/26/16 13:00 10/26/16 13:00 10/26/16 10:51 10/26/16 13:00 10/26/16 13:00 Intake and Output: 10/26/16 10/26/16 06:59 18:59 Intake Total 325 5 Balance 325 5 - Medications Medications: Current Medications Amikacin Sulfate (Amikacin 500 Mg/2ml Inj) 500 mg IH [id number] [facility] Last Admin: 10/26/16 07:53 Dose: 500 mg Artificial Tears (Artificial Tears Opht Oint) 1 gm OU Q6 [facility] Last Admin: 10/26/16 12:51 Dose: 1 applic Folic Acid (Folic Acid) 1 mg PO DAILY [facility] Last Admin: 10/26/16 10:41 Dose: Not Given Gentamicin Sulfate 270 mg/ (Sodium Chloride) 106.75 mls @ 106.75 mls/hr IVPB ONCE [facility] Last Admin: 10/17/16 11:42 Dose: 106.75 mls/hr Dextrose (Dextrose 5% In Water 1000 Ml) 1,000 mls @ 100 mls/hr IV .Q10H [facility] Last Admin: 10/26/16 12:50 Dose: 100 mls/hr Lactulose (Enulose) 20 gm PO BID [facility] Last Admin: 10/26/16 10:41 Dose: Not Given Metoclopramide HCl (Reglan) 10 mg IVP Q6H PRN PRN Reason: Other Last Admin: 10/25/16 00:41 Dose: 10 mg Midodrine (Proamatine) 5 mg PO TID [facility] Last Admin: 10/26/16 13:26 Dose: Not Given Morphine Sulfate (Morphine) 2 mg IVP Q4H PRN PRN Reason: Pain, severe (8-10) Pantoprazole Sodium (Protonix Inj) 40 mg IVP Q12 [facility] Last Admin: 10/26/16 10:12 Dose: 40 mg Thiamine HCl (Vitamin B1 Tab) 100 mg PO DAILY [facility] Last Admin: 10/26/16 10:41 Dose: Not Given Vitamin B Complex/Vit C/Folic Acid (Nephro-Mariann) 1 tab PO 0800 [facility] Last Admin: 10/26/16 08:16 Dose: Not Given - Labs Labs: 10/25/16 11:40 10/26/16 10:00 PT 20.1 Seconds (9.9-11.8) H 10/26/16 10:00 INR 1.86 (0.93-1.08) H 10/26/16 10:00 APTT 34.2 Seconds (23.7-30.8) H 10/26/16 10:00 Attending/Attestation - Attestation I have personally seen and examined this patient.: Yes I have fully participated in the care of the patient.: Yes I have reviewed all pertinent clinical information, including history, physical exam and plan: Yes Notes (Text): 10/26/16 14:21 Patient was seen and examined with medical lab technologist. 56 year old male with PMH of alcohol abuse, cirrhosis who was admitted with change of mental status, was found to be have alcohol intoxication ,sepsis,, Rhabdomylosis, acute renal failure and was intubated later on. He was also found to have oliguric acute renal failure ,anemia ,thrombocytopenia, SBP,HCAP,~ cdiff~and fungemia He was unable to wean off and underwent tracheotomy y.He is ,, requiring ventilatory support, Hemoglobin is dropping every day, requiring intermittent PRBC transfusion. mental status is mildly improved but still very poor.He is awaiting for PEG tube placement. Renal functions are stable, Nephrology is following. Sepsis on antibiotics as per ID. Patient is DNR/ DNI. Prognosis is guarde
--- NOTE | 2016-10-25 12:46 | US ---
HISTORY: ascites COMPARISON: 07/26/2016 TECHNIQUE: Sonographic evaluation of the abdomen. FINDINGS: LIVER: Measures 15.4 by 12.2 x 0.6 cm. Diffuse increased echogenicity of the liver parenchyma. Fine nodular contour -consistent with cirrhosis No mass. No intrahepatic bile duct dilatation. GALLBLADDER: Currently unremarkable No gallstones. The previously referenced 6 mm gallbladder polyp is not the shown on this exam COMMON BILE DUCT: Measures 6 mm. No stones. No dilatation. PANCREAS: Unremarkable as visualized. No mass. No ductal dilatation. RIGHT KIDNEY: Measures 10.6 x 5.7 x 6.4cm. Normal echogenicity. No calculus, mass, or hydronephrosis. The previously referenced 0.7 cm nonobstructing calculus -right renal interpolar -not demonstrated LEFT KIDNEY: Measures 12.2 x 4.9 x 6.2cm. Normal echogenicity. No calculus, mass, or hydronephrosis. SPLEEN: Normal in size and contour. No mass. AORTA: No aneurysmal dilatation. IVC: Unremarkable. OTHER FINDINGS: Massive ascites IMPRESSION: Known cirrhosis and known ascites. No other interval pathology noted on this exam. The exam is somewhat limited - done portably while the patient is intubated in the ICU. Prior gallbladder polyp and prior nonobstructing right renal calculus not demonstrated on today's exam
--- NOTE | 2016-10-25 16:32 | RAD ---
HISTORY: NGT placement check COMPARISON: 10/25/2016 5:23 a.m. for the current study is at 1602 hours FINDINGS: LUNGS: There is interval increased ill definition to the prior opacity in the medial right lung base. Since the prior exam the feeding tube has been advanced into the right lower lobe bronchi on the current exam. (previously the feeding tube have been retracted on the 10/25/2016 at 5:23 a.m. study) This current finding was immediately called in to the ICU nurse Shantal Broderick at 4:20 p.m. on 10/25/2016. The feeding tubes retraction and subsequent rechecking of its position prior to any feeding was also directly discussed Tracheostomy tube in place as before. PLEURA: No significant pleural effusion identified, no pneumothorax apparent. CARDIOVASCULAR: Normal. OSSEOUS STRUCTURES: No significant abnormalities. VISUALIZED UPPER ABDOMEN: Normal. OTHER FINDINGS: None. IMPRESSION: Since the prior retraction, the feeding tube has been advanced current position which is a right rlower lobe bronchus with associated right basal ill-defined opacity. This current finding was immediately called in to the ICU nurse Shantal Broedrick at 4:20 p.m. on 10/25/2016. The feeding tube retraction and subsequent position rechecking prior to any feeding was also directly discussed
--- NOTE | 2016-10-25 17:39 | CP.CCUPN ---
<KENDY CERNA - Last Filed: 10/25/16 17:25> CCU Subjective - Physician Review Subjective (Free Text): 10/25/16 17:40 Patient was seen and assessed at bedside. Patient intubated on PRVC mode and without sedation, however patient continues to be unresponsive to verbal, tactile and painful stimuli. Per nursing, patient continues to drain melena in his rectal drainage. He remained hemodynamically stable throughout the night, requiring no interventions, however. No other acute events noted overnight, per nursing. ROS unobtainable due to clinical condition of patient. CCU Objective - Vital Signs / Intake & Output Vital Signs (Last 4 hours): Vital Signs Temp Pulse BP Pulse Ox 10/25/16 17:00 99.1 F 102 H 111/72 100 10/25/16 16:45 99.1 F 102 H 115/71 98 10/25/16 16:30 99.1 F 99 H 119/70 100 10/25/16 16:15 99.1 F 97 H 117/72 100 10/25/16 16:00 99.1 F 94 H 108/68 99 10/25/16 15:45 99.1 F 99 H 120/75 100 10/25/16 15:30 99.1 F 99 H 106/60 99 10/25/16 15:15 99.1 F 101 H 106/69 100 10/25/16 15:00 99.1 F 101 H 109/69 100 10/25/16 14:45 99.1 F 98 H 110/61 100 10/25/16 14:30 99.3 F 95 H 105/60 100 10/25/16 14:21 99.3 F 99 H 99/63 L 100 10/25/16 14:00 99.3 F 105 H 125/66 100 10/25/16 13:45 99.3 F 106 H 123/65 100 10/25/16 13:30 99.3 F 107 H 118/79 100 Intake and Output (Last 8hrs): Intake & Output 10/25/16 10/25/16 10/25/16 06:59 14:59 22:59 Intake Total 1200 Output Total 600 Balance 600 Intake: IV 1200 Right Upper arm 1200 Output: Urine 400 Urethral (Vyas) 400 Stool 200 - Physical Exam Head: Positive for: Atraumatic, Normocephalic Pupils: Positive for: PERRL Extroacular Muscles: Positive for: EOMI Conjunctiva: Positive for: Normal Ears: Positive for: Normal Mouth: Positive for: Moist Mucous Membranes, Other Nose (External): Positive for: Atraumatic Nose (Internal): Positive for: Other Neck: Positive for: Normal Range of Motion, Trachea Midline, Other ( Tracheostomy insertion site without signs of infection). Negative for: Lymphadenopathy Respiratory/Chest: Positive for: Clear to Auscultation, Good Air Exchange, Tachypneic, Other (Mechanical ventilation). Negative for: Respiratory Distress , Accessory Muscle Use, Wheezes, Decreased Breath Sounds, Retracting, Rhonchi Cardiovascular: Positive for: Regular Rate and Rhythm, Normal S1, S2. Negative for: Murmurs Abdomen: Positive for: Normal Bowel Sounds, Other (Paracentesis site with sutures, no signs of infection, dressing clean, dry and intact; rectal tube draining melena). Negative for: Tenderness, Distention, Peritoneal Signs Genitourinary Male: Positive for: Other (Vyas in place, no signs of infection) . Negative for: Testicle Swelling Back: Positive for: Normal Inspection Upper Extremity: Positive for: Edema (1+ pitting edema B/L UE). Negative for: Normal Inspection (Multiple areas of ecchymoses), Cyanosis Lower Extremity: Positive for: Edema (1+ Pitting edema B/L up to thighs). Negative for: Normal Inspection Neurological: Positive for: Other (Gag and corneal reflex intact; ability to track motion with eyes intact). Negative for: GCS=15 (GCS of 3T), CN II-XII Intact, Speech Normal Skin: Positive for: Warm, Other (Area of erythema on the presacral area of the lower back measuring approximately 2-3cm with no skin ulceration; currently unstageable ). Negative for: Rashes, Normal Color (multiple ecchymoses over UE B/L) Psychiatric: Negative for: Alert (arousable to tactile stimuli), Oriented x 3, Normal Insight, Normal Concentration - Medications Active Medications: Active Medications Generic Name Dose Route Start Last Admin Trade Name Freq PRN Reason Stop Dose Admin Amikacin Sulfate 500 mg 10/19/16 20:00 10/25/16 08:17 Amikacin 500 Mg/2ml Inj IH 500 mg [id number] TONI Administration Artificial Tears 1 gm 10/10/16 18:00 10/25/16 12:30 Artificial Tears Opht Oint OU 2 applic Q6 TONI Administration Folic Acid 1 mg 10/03/16 10:00 10/25/16 16:45 Folic Acid PO Not Given DAILY [facility] Gentamicin Sulfate 270 mg/ 106.75 mls @ 106.75 mls/hr 10/15/16 10:00 11:42 Sodium Chloride IVPB 106.75 mls/hr ONCE TONI Administration Sodium Chloride 1,000 mls @ 200 mls/hr 10/24/16 11:14 10/25/16 09:22 Sodium Chloride 0.45% IV 200 mls/hr .Q5H TONI Administration Dextrose 1,000 mls @ 50 mls/hr 10/25/16 09:30 10/25/16 13:27 Dextrose 5% In Water 1000 Ml IV 50 mls/hr .Q20H TONI Administration Lactulose 20 gm 10/24/16 18:00 10/25/16 16:42 Enulose PO Not Given BID [facility] Metoclopramide HCl 10 mg 10/09/16 16:56 10/25/16 00:41 Reglan IVP 10 mg Q6H PRN Administration Other Midodrine 5 mg 10/09/16 10:00 10/25/16 16:44 Proamatine PO Not Given TID [facility] Morphine Sulfate 2 mg 10/22/16 00:52 Morphine IVP Q4H PRN Pain, severe (8-10) Pantoprazole Sodium 40 mg 10/24/16 10:00 10/25/16 09:31 Protonix Inj IVP 40 mg Q12 TONI Administration Thiamine HCl 100 mg 10/03/16 10:00 10/25/16 16:44 Vitamin B1 Tab PO Not Given DAILY [facility] Vitamin B Complex/Vit C/Folic Acid 1 tab 10/03/16 08:00 10/25/16 16:45 Nephro-Mariann PO Not Given 0800 [facility] - Patient Studies Lab Studies: Lab Studies 10/25/16 10/25/16 10/25/16 Range/Units 11:40 11:40 06:30 WBC 8.3 (4.5-11.0) 10^3/ul RBC 2.24 L (3.5-6.1) 10^6/uL Hgb 7.0 L (14.0-18.0) g/dL Hct 21.6 L (42.0-52.0) % MCV 96.4 (80.0-105.0) fl MCH 31.3 (25.0-35.0) pg MCHC 32.4 (31.0-37.0) g/dl RDW 17.6 H (11.5-14.5) % Plt Count 75 L (120.0-450.0) 10^3/uL MPV 11.8 H (7.0-11.0) fl Gran % 66.3 (50.0-68.0) % Lymph % (Auto) 25.2 (22.0-35.0) % [place] % (Auto) 7.6 H (1.0-6.0) % Eos % (Auto) 0.7 L (1.5-5.0) % Baso % (Auto) 0.2 (0.0-3.0) % Gran # 5.51 (1.4-6.5) Lymph # 2.1 (1.2-3.4) [place] # 0.6 (0.1-0.6) Eos # 0.1 (0.0-0.7) Baso # 0.02 (0.0-2.0) K/mm3 APTT 30.8 (23.7-30.8) Seconds pCO2 (35-45) mm/Hg pO2 (80-100) mm/Hg HCO3 (21-28) mmol/L ABG pH (7.35-7.45) ABG Total CO2 (22-28) mmol.L ABG O2 Saturation (95-98) % ABG O2 Content (15-23) ML/dl ABG Base Excess (-2.0-3.0) mmol/L ABG Hemoglobin (11.7-17.4) g/dL ABG Carboxyhemoglobin (0.5-1.5) % POC ABG HHb (Measured) (0-5) % ABG Methemoglobin (0.0-3.0) % ABG O2 Capacity (16-24) mL/dl Hgb O2 Saturation (95.0-98.0) % FiO2 % Sodium 148 (132-148) mmol/L Potassium 3.5 L (3.6-5.0) mmol/L Chloride 117 H (98-107) mmol/L Carbon Dioxide 19 L (21-33) mmol/L Anion Gap 16 (10-20) BUN 93 H (7-21) mg/dL Creatinine 1.9 H (0.5-1.4) mg/dL Est GFR ( Amer) 45 Est GFR (Non-Af Amer) 37 Random Glucose 79 (70-110) mg/dL Calcium 7.2 L (8.4-10.5) mg/dL Phosphorus 6.2 H (2.5-4.5) mg/dL Magnesium 1.6 L (1.7-2.2) mg/dL Total Bilirubin 2.0 H (0.2-1.3) mg/dL AST 88 H (17-59) U/L ALT 81 H (7-56) U/L Alkaline Phosphatase 81 (38-126) U/L Total Protein 4.6 L (5.8-8.3) g/dL Albumin 1.7 L (3.0-4.8) g/dL Globulin 2.9 gm/dL Albumin/Globulin Ratio 0.6 L (1.1-1.8) Crossmatch 10/25/16 10/25/16 10/25/16 Range/Units 06:30 05:30 00:10 WBC 9.0 10.6 D (4.5-11.0) 10^3/ul RBC 2.40 L 2.53 L (3.5-6.1) 10^6/uL Hgb 7.3 L 7.7 L (14.0-18.0) g/dL Hct 22.6 L 23.9 L (42.0-52.0) % MCV 94.2 94.5 (80.0-105.0) fl MCH 30.4 30.4 (25.0-35.0) pg MCHC 32.3 32.2 (31.0-37.0) g/dl RDW 17.3 H 17.3 H (11.5-14.5) % Plt Count 102 L 95 L (120.0-450.0) 10^3/uL MPV 12.2 H 11.1 H (7.0-11.0) fl Gran % 65.3 (50.0-68.0) % Lymph % (Auto) 28.1 (22.0-35.0) % [place] % (Auto) 5.8 (1.0-6.0) % Eos % (Auto) 0.7 L (1.5-5.0) % Baso % (Auto) 0.1 (0.0-3.0) % Gran # 5.91 (1.4-6.5) Lymph # 2.5 (1.2-3.4) [place] # 0.5 (0.1-0.6) Eos # 0.1 (0.0-0.7) Baso # 0.01 (0.0-2.0) K/mm3 APTT (23.7-30.8) Seconds pCO2 32 L (35-45) mm/Hg pO2 104.0 H (80-100) mm/Hg HCO3 18.5 L (21-28) mmol/L ABG pH 7.37 (7.35-7.45) ABG Total CO2 19.5 L (22-28) mmol.L ABG O2 Saturation 99.6 H (95-98) % ABG O2 Content 9.6 L (15-23) ML/dl ABG Base Excess -6.2 L (-2.0-3.0) mmol/L ABG Hemoglobin 7.0 L (11.7-17.4) g/dL ABG Carboxyhemoglobin 2.3 H (0.5-1.5) % POC ABG HHb (Measured) 0.4 (0-5) % ABG Methemoglobin 1.6 (0.0-3.0) % ABG O2 Capacity 9.6 L (16-24) mL/dl Hgb O2 Saturation 95.7 (95.0-98.0) % FiO2 40.0 % Sodium (132-148) mmol/L Potassium (3.6-5.0) mmol/L Chloride (98-107) mmol/L Carbon Dioxide (21-33) mmol/L Anion Gap (10-20) BUN (7-21) mg/dL Creatinine (0.5-1.4) mg/dL Est GFR ( Amer) Est GFR (Non-Af Amer) Random Glucose (70-110) mg/dL Calcium (8.4-10.5) mg/dL Phosphorus (2.5-4.5) mg/dL Magnesium (1.7-2.2) mg/dL Total Bilirubin (0.2-1.3) mg/dL AST (17-59) U/L ALT (7-56) U/L Alkaline Phosphatase (38-126) U/L Total Protein (5.8-8.3) g/dL Albumin (3.0-4.8) g/dL Globulin gm/dL Albumin/Globulin Ratio (1.1-1.8) Crossmatch 10/24/16 10/24/16 10/22/16 Range/Units 18:40 18:25 15:10 WBC 7.8 (4.5-11.0) 10^3/ul RBC 2.53 L (3.5-6.1) 10^6/uL Hgb 8.0 L (14.0-18.0) g/dL Hct 24.1 L (42.0-52.0) % MCV 95.3 (80.0-105.0) fl MCH 31.6 (25.0-35.0) pg MCHC 33.2 (31.0-37.0) g/dl RDW 17.2 H (11.5-14.5) % Plt Count 76 L (120.0-450.0) 10^3/uL MPV 10.6 (7.0-11.0) fl Gran % 63.7 (50.0-68.0) % Lymph % (Auto) 29.1 (22.0-35.0) % [place] % (Auto) 6.3 H (1.0-6.0) % Eos % (Auto) 0.8 L (1.5-5.0) % Baso % (Auto) 0.1 (0.0-3.0) % Gran # 5.00 (1.4-6.5) Lymph # 2.3 (1.2-3.4) [place] # 0.5 (0.1-0.6) Eos # 0.1 (0.0-0.7) Baso # 0.01 (0.0-2.0) K/mm3 APTT (23.7-30.8) Seconds pCO2 41 (35-45) mm/Hg pO2 102.0 H (80-100) mm/Hg HCO3 20.2 L (21-28) mmol/L ABG pH 7.30 L (7.35-7.45) ABG Total CO2 21.5 L (22-28) mmol.L ABG O2 Saturation 99.4 H (95-98) % ABG O2 Content 10.6 L (15-23) ML/dl ABG Base Excess -5.8 L (-2.0-3.0) mmol/L ABG Hemoglobin 7.7 L (11.7-17.4) g/dL ABG Carboxyhemoglobin 1.9 H (0.5-1.5) % POC ABG HHb (Measured) 0.6 (0-5) % ABG Methemoglobin 1.2 (0.0-3.0) % ABG O2 Capacity 10.7 L (16-24) mL/dl Hgb O2 Saturation 96.4 (95.0-98.0) % FiO2 50.0 % Sodium (132-148) mmol/L Potassium (3.6-5.0) mmol/L Chloride (98-107) mmol/L Carbon Dioxide (21-33) mmol/L Anion Gap (10-20) BUN (7-21) mg/dL Creatinine (0.5-1.4) mg/dL Est GFR ( Amer) Est GFR (Non-Af Amer) Random Glucose (70-110) mg/dL Calcium (8.4-10.5) mg/dL Phosphorus (2.5-4.5) mg/dL Magnesium (1.7-2.2) mg/dL Total Bilirubin (0.2-1.3) mg/dL AST (17-59) U/L ALT (7-56) U/L Alkaline Phosphatase (38-126) U/L Total Protein (5.8-8.3) g/dL Albumin (3.0-4.8) g/dL Globulin gm/dL Albumin/Globulin Ratio (1.1-1.8) Crossmatch See Detail Laboratory Results - last 24 hr 10/22/16 10/24/16 10/24/16 15:10 18:25 18:40 WBC 7.8 RBC 2.53 L Hgb 8.0 L Hct 24.1 L MCV 95.3 MCH 31.6 MCHC 33.2 RDW 17.2 H Plt Count 76 L MPV 10.6 Gran % 63.7 Lymph % (Auto) 29.1 [place] % (Auto) 6.3 H Eos % (Auto) 0.8 L Baso % (Auto) 0.1 Gran # 5.00 Lymph # 2.3 [place] # 0.5 Eos # 0.1 Baso # 0.01 APTT pCO2 41 pO2 102.0 H HCO3 20.2 L ABG pH 7.30 L ABG Total CO2 21.5 L ABG O2 Saturation 99.4 H ABG O2 Content 10.6 L ABG Base Excess -5.8 L ABG Hemoglobin 7.7 L ABG Carboxyhemoglobin 1.9 H POC ABG HHb (Measured) 0.6 ABG Methemoglobin 1.2 ABG O2 Capacity 10.7 L Hgb O2 Saturation 96.4 FiO2 50.0 Sodium Potassium Chloride Carbon Dioxide Anion Gap BUN Creatinine Est GFR ( Amer) Est GFR (Non-Af Amer) Random Glucose Calcium Phosphorus Magnesium Total Bilirubin AST ALT Alkaline Phosphatase Total Protein Albumin Globulin Albumin/Globulin Ratio Crossmatch See Detail 10/25/16 10/25/16 10/25/16 00:10 05:30 06:30 WBC 10.6 D 9.0 RBC 2.53 L 2.40 L Hgb 7.7 L 7.3 L Hct 23.9 L 22.6 L MCV 94.5 94.2 MCH 30.4 30.4 MCHC 32.2 32.3 RDW 17.3 H 17.3 H Plt Count 95 L 102 L MPV 11.1 H 12.2 H Gran % 65.3 Lymph % (Auto) 28.1 [place] % (Auto) 5.8 Eos % (Auto) 0.7 L Baso % (Auto) 0.1 Gran # 5.91 Lymph # 2.5 [place] # 0.5 Eos # 0.1 Baso # 0.01 APTT pCO2 32 L pO2 104.0 H HCO3 18.5 L ABG pH 7.37 ABG Total CO2 19.5 L ABG O2 Saturation 99.6 H ABG O2 Content 9.6 L ABG Base Excess -6.2 L ABG Hemoglobin 7.0 L ABG Carboxyhemoglobin 2.3 H POC ABG HHb (Measured) 0.4 ABG Methemoglobin 1.6 ABG O2 Capacity 9.6 L Hgb O2 Saturation 95.7 FiO2 40.0 Sodium Potassium Chloride Carbon Dioxide Anion Gap BUN Creatinine Est GFR ( Amer) Est GFR (Non-Af Amer) Random Glucose Calcium Phosphorus Magnesium Total Bilirubin AST ALT Alkaline Phosphatase Total Protein Albumin Globulin Albumin/Globulin Ratio Crossmatch 10/25/16 10/25/16 10/25/16 06:30 11:40 11:40 WBC 8.3 RBC 2.24 L Hgb 7.0 L Hct 21.6 L MCV 96.4 MCH 31.3 MCHC 32.4 RDW 17.6 H Plt Count 75 L MPV 11.8 H Gran % 66.3 Lymph % (Auto) 25.2 [place] % (Auto) 7.6 H Eos % (Auto) 0.7 L Baso % (Auto) 0.2 Gran # 5.51 Lymph # 2.1 [place] # 0.6 Eos # 0.1 Baso # 0.02 APTT 30.8 pCO2 pO2 HCO3 ABG pH ABG Total CO2 ABG O2 Saturation ABG O2 Content ABG Base Excess ABG Hemoglobin ABG Carboxyhemoglobin POC ABG HHb (Measured) ABG Methemoglobin ABG O2 Capacity Hgb O2 Saturation FiO2 Sodium 148 Potassium 3.5 L Chloride 117 H Carbon Dioxide 19 L Anion Gap 16 BUN 93 H Creatinine 1.9 H Est GFR ( Amer) 45 Est GFR (Non-Af Amer) 37 Random Glucose 79 Calcium 7.2 L Phosphorus 6.2 H Magnesium 1.6 L Total Bilirubin 2.0 H AST 88 H ALT 81 H Alkaline Phosphatase 81 Total Protein 4.6 L Albumin 1.7 L Globulin 2.9 Albumin/Globulin Ratio 0.6 L Crossmatch Fingerstick Blood Sugar Results: 105 Review of Systems - Review of Systems Review of Systems: Please refer to [facility] Critical Care Progress Note - Ventilator Checklist Head of Bed 30 Degrees: Yes Daily Assessment of Readiness to Wean: Yes PUD Prophalyxis: Yes DVT Prophylaxis: Yes - Extremities/Vascular Does the Patient have a Central Venous Catheter?: No Does the Patient need a Central Venous Catheter?: No Does the Patient have a Vyas Catheter?: Yes Does the Patient need a Vyas Catheter?: Yes - Prophylaxis GI Prophylaxis GI: PPI - Prophylaxis DVT Prophylaxis DVT: SCDs Assessment/Plan - Assessment and Plan (Free Text) Assessment: 56 year old male with an initial presentation of AMS in the setting of persistent hypokalemia and alcohol withdrawal, which resolved. Patient was then intubated after he was found to be in hypercapnic respiratory failure and subsequently became hemodynamically unstable requiring dual vasopressor support. His presentation is consistent with distributive shock likely from either acute decompensated chronic liver failure or sepsis from C. Diff colitis , with multiorgan dysfunction syndrome including renal failure, encephalopathy and respiratory failure. Patient is no longer requiring vasopressin or levophed for hemodynamic support but is on midodrine. Patient is currently unresponsive to verbal or tactile stimuli off of sedation. Patient currently on PRVC and is s /p tracheostomy placement on 10/19. Patient was scheduled for open G-Tube placement on 10/24 but this was cancelled as patient has melena/BRB in his rectal drainage. Plan: Neuro: -Current GCS of 6 ([id number]) -Currently intubated with no sedation and unresponsive to verbal, tactile or painful stimuli -Continue Lactulose 20mg BID -Continue Thiamine, Folic Acid and MV supplementation Pulm: Mechanical ventilation settings on [facility] currently at: FiO2-50 PEEP-5 RR-30 TV-400 -Chest X-Ray on 10/25 showed diminishing bilateral infiltrates with limited residual noted at the medial right base and left infrahilar region -Continue Amikacin 500mg IH [id number] for pseudomonas tracheobronchtits -Will give one dose of Lasix 40mg IV for infiltrates -Continue protective lung ventilation strategy and VAP prevention strategies, including maintaining HOB greater that 35 degrees, oral hygiene, chlorhexidine in the posterior pharynx and GI/DVT prophylaxis -Continue daily PS/CPAP weaning trials as tolerated and assess for clinical reasons why patient is not tolerating these trials -Continue Duonebs 3ml IH [id number] for wheezing -ENT consulted, all recommendations appreciated Cardio: -Continue midodrine 5mg PO TID -Cardiology consulted, appreciate all recommendations GI: -Abdominal Ultrasound showed known cirrhosis and known ascites, will assess for need for paracentesis with consent obtained should it be indicated -Gastrostomy tube placement scheduled for 10/24 cancelled due to melena/blood in his rectal drainage and rescheduled for 10/26 -Bleeding likely due to erosion and patient not a good candidate for EGD at this time, per GI -Decreased to Lactulose 20mg BID, per GI -Continue Reglan 10mg IVP Q6H PRN -Rectal tube in place and currently draining 1300cc of melena over the past 24 hours -GI and Surgery consulted, all recommendations appreciated Renal: -BUN/Creatinine at 93/1.9, representing improvement of acute kidney injury -Continue 1/2 Normal Saline at 200ml/hr -Vyas catheter in place and draining 1500cc over the past 24 hours -Will continue to replete calcium, magnesium, phosphorus and potassium as needed -Will continue to monitor with serial CMP's with magnesium and phosphorous levels -Nephrology consulted, all recommendations appreciated Endocrine: -Will maintain euglycemia with blood glucose between 140 and 180 Heme/Onc: -H/H trending down over the past 24 hours to 7.0/21.6 -Will transfuse two units of pRBC's and order CBC one hour after to assess response -Platelets stable per patients baseline at 75 -Will continue to monitor with serial CBC's -Extremity Ultrasound negative for DVT's MSK: -Area of erythema on presacral area measuring approximately 2cm with no skin breakage -Continue to turn patient Q2H to prevent ulceration and air mattress and adequate skin hydration -PT/OT evaluation and treatment ID: -Currently on Amikacin 500mg IH [id number] (Day 5); Gentamycin at 106.75mls/hr IVPB (currently held until trough is 1-2mcg) -Currently afebrile, normotensive, with no leukocytosis and mild tachycardia -Most recent blood and urine cultures negative for growth -Continue active patient cooling with cooling blankets for temperatures over 100.4 -ID consulted, all recommendations appreciated Lines: -Continue all peripheral lines GI Prophylaxis: Protonix DVT Prophylaxis: SCD's Disposition: Scheduled for PEG tube placement tomorrow. Poor prognosis overall and will need retirement care in a specialized facility. Patient seen and case discussed in detail with attending, Dr. Hartmann. - Date & Time Date: 10/25/16 Time: 17:26 <Mary Kate GALLEGOS,[facility] - Last Filed: 10/25/16 18:52> CCU Objective - Vital Signs / Intake & Output Vital Signs (Last 4 hours): Vital Signs Temp Pulse BP Pulse Ox 10/25/16 18:00 99.1 F 107 H 100 10/25/16 17:45 99.1 F 105 H 115/66 100 10/25/16 17:30 99.1 F 107 H 118/75 99 10/25/16 17:15 99.1 F 105 H 116/67 100 10/25/16 17:00 99.1 F 102 H 111/72 100 10/25/16 16:45 99.1 F 102 H 115/71 98 10/25/16 16:30 99.1 F 99 H 119/70 100 10/25/16 16:15 99.1 F 97 H 117/72 100 10/25/16 16:00 99.1 F 94 H 108/68 99 10/25/16 15:45 99.1 F 99 H 120/75 100 10/25/16 15:30 99.1 F 99 H 106/60 99 10/25/16 15:15 99.1 F 101 H 106/69 100 10/25/16 15:00 99.1 F 101 H 109/69 100 Intake and Output (Last 8hrs): Intake & Output 10/25/16 10/25/16 10/25/16 06:59 14:59 22:59 Intake Total 1200 3100 Output Total 600 1800 Balance 600 1300 Intake: IV 1200 3100 0.45 S 2400 Right Upper arm 1200 dextrose 5 300 meds 400 Output: Urine 400 1100 Urethral (Vyas) 400 1100 Stool 200 700 - Medications Active Medications: Active Medications Generic Name Dose Route Start Last Admin Trade Name Freq PRN Reason Stop Dose Admin Amikacin Sulfate 500 mg 10/19/16 20:00 10/25/16 08:17 Amikacin 500 Mg/2ml Inj IH 500 mg [id number] TONI Administration Artificial Tears 1 gm 10/10/16 18:00 10/25/16 12:30 Artificial Tears Opht Oint OU 2 applic Q6 TONI Administration Folic Acid 1 mg 10/03/16 10:00 10/25/16 16:45 Folic Acid PO Not Given DAILY TONI Gentamicin Sulfate 270 mg/ 106.75 mls @ 106.75 mls/hr 10/15/16 10:00 11:42 Sodium Chloride IVPB 106.75 mls/hr ONCE TONI Administration Sodium Chloride 1,000 mls @ 200 mls/hr 10/24/16 11:14 10/25/16 09:22 Sodium Chloride 0.45% IV 200 mls/hr .Q5H TONI Administration Dextrose 1,000 mls @ 50 mls/hr 10/25/16 09:30 10/25/16 13:27 Dextrose 5% In Water 1000 Ml IV 50 mls/hr .Q20H TONI Administration Lactulose 20 gm 10/24/16 18:00 10/25/16 16:42 Enulose PO Not Given BID TONI Metoclopramide HCl 10 mg 10/09/16 16:56 10/25/16 00:41 Reglan IVP 10 mg Q6H PRN Administration Other Midodrine 5 mg 10/09/16 10:00 10/25/16 16:44 Proamatine PO Not Given TID [facility] Morphine Sulfate 2 mg 10/22/16 00:52 Morphine IVP Q4H PRN Pain, severe (8-10) Pantoprazole Sodium 40 mg 10/24/16 10:00 10/25/16 09:31 Protonix Inj IVP 40 mg Q12 TONI Administration Thiamine HCl 100 mg 10/03/16 10:00 10/25/16 16:44 Vitamin B1 Tab PO Not Given DAILY [facility] Vitamin B Complex/Vit C/Folic Acid 1 tab 10/03/16 08:00 10/25/16 16:45 Nephro-Mariann PO Not Given 0800 [facility] - Patient Studies Lab Studies: Lab Studies 10/25/16 10/25/16 10/25/16 Range/Units 11:40 11:40 06:30 WBC 8.3 (4.5-11.0) 10^3/ul RBC 2.24 L (3.5-6.1) 10^6/uL Hgb 7.0 L (14.0-18.0) g/dL Hct 21.6 L (42.0-52.0) % MCV 96.4 (80.0-105.0) fl MCH 31.3 (25.0-35.0) pg MCHC 32.4 (31.0-37.0) g/dl RDW 17.6 H (11.5-14.5) % Plt Count 75 L (120.0-450.0) 10^3/uL MPV 11.8 H (7.0-11.0) fl Gran % 66.3 (50.0-68.0) % Lymph % (Auto) 25.2 (22.0-35.0) % [place] % (Auto) 7.6 H (1.0-6.0) % Eos % (Auto) 0.7 L (1.5-5.0) % Baso % (Auto) 0.2 (0.0-3.0) % Gran # 5.51 (1.4-6.5) Lymph # 2.1 (1.2-3.4) [place] # 0.6 (0.1-0.6) Eos # 0.1 (0.0-0.7) Baso # 0.02 (0.0-2.0) K/mm3 APTT 30.8 (23.7-30.8) Seconds pCO2 (35-45) mm/Hg pO2 (80-100) mm/Hg HCO3 (21-28) mmol/L ABG pH (7.35-7.45) ABG Total CO2 (22-28) mmol.L ABG O2 Saturation (95-98) % ABG O2 Content (15-23) ML/dl ABG Base Excess (-2.0-3.0) mmol/L ABG Hemoglobin (11.7-17.4) g/dL ABG Carboxyhemoglobin (0.5-1.5) % POC ABG HHb (Measured) (0-5) % ABG Methemoglobin (0.0-3.0) % ABG O2 Capacity (16-24) mL/dl Hgb O2 Saturation (95.0-98.0) % FiO2 % Sodium 148 (132-148) mmol/L Potassium 3.5 L (3.6-5.0) mmol/L Chloride 117 H (98-107) mmol/L Carbon Dioxide 19 L (21-33) mmol/L Anion Gap 16 (10-20) BUN 93 H (7-21) mg/dL Creatinine 1.9 H (0.5-1.4) mg/dL Est GFR ( Amer) 45 Est GFR (Non-Af Amer) 37 Random Glucose 79 (70-110) mg/dL Calcium 7.2 L (8.4-10.5) mg/dL Phosphorus 6.2 H (2.5-4.5) mg/dL Magnesium 1.6 L (1.7-2.2) mg/dL Total Bilirubin 2.0 H (0.2-1.3) mg/dL AST 88 H (17-59) U/L ALT 81 H (7-56) U/L Alkaline Phosphatase 81 (38-126) U/L Total Protein 4.6 L (5.8-8.3) g/dL Albumin 1.7 L (3.0-4.8) g/dL Globulin 2.9 gm/dL Albumin/Globulin Ratio 0.6 L (1.1-1.8) Crossmatch 10/25/16 10/25/16 10/25/16 Range/Units 06:30 05:30 00:10 WBC 9.0 10.6 D (4.5-11.0) 10^3/ul RBC 2.40 L 2.53 L (3.5-6.1) 10^6/uL Hgb 7.3 L 7.7 L (14.0-18.0) g/dL Hct 22.6 L 23.9 L (42.0-52.0) % MCV 94.2 94.5 (80.0-105.0) fl MCH 30.4 30.4 (25.0-35.0) pg MCHC 32.3 32.2 (31.0-37.0) g/dl RDW 17.3 H 17.3 H (11.5-14.5) % Plt Count 102 L 95 L (120.0-450.0) 10^3/uL MPV 12.2 H 11.1 H (7.0-11.0) fl Gran % 65.3 (50.0-68.0) % Lymph % (Auto) 28.1 (22.0-35.0) % [place] % (Auto) 5.8 (1.0-6.0) % Eos % (Auto) 0.7 L (1.5-5.0) % Baso % (Auto) 0.1 (0.0-3.0) % Gran # 5.91 (1.4-6.5) Lymph # 2.5 (1.2-3.4) [place] # 0.5 (0.1-0.6) Eos # 0.1 (0.0-0.7) Baso # 0.01 (0.0-2.0) K/mm3 APTT (23.7-30.8) Seconds pCO2 32 L (35-45) mm/Hg pO2 104.0 H (80-100) mm/Hg HCO3 18.5 L (21-28) mmol/L ABG pH 7.37 (7.35-7.45) ABG Total CO2 19.5 L (22-28) mmol.L ABG O2 Saturation 99.6 H (95-98) % ABG O2 Content 9.6 L (15-23) ML/dl ABG Base Excess -6.2 L (-2.0-3.0) mmol/L ABG Hemoglobin 7.0 L (11.7-17.4) g/dL ABG Carboxyhemoglobin 2.3 H (0.5-1.5) % POC ABG HHb (Measured) 0.4 (0-5) % ABG Methemoglobin 1.6 (0.0-3.0) % ABG O2 Capacity 9.6 L (16-24) mL/dl Hgb O2 Saturation 95.7 (95.0-98.0) % FiO2 40.0 % Sodium (132-148) mmol/L Potassium (3.6-5.0) mmol/L Chloride (98-107) mmol/L Carbon Dioxide (21-33) mmol/L Anion Gap (10-20) BUN (7-21) mg/dL Creatinine (0.5-1.4) mg/dL Est GFR ( Amer) Est GFR (Non-Af Amer) Random Glucose (70-110) mg/dL Calcium (8.4-10.5) mg/dL Phosphorus (2.5-4.5) mg/dL Magnesium (1.7-2.2) mg/dL Total Bilirubin (0.2-1.3) mg/dL AST (17-59) U/L ALT (7-56) U/L Alkaline Phosphatase (38-126) U/L Total Protein (5.8-8.3) g/dL Albumin (3.0-4.8) g/dL Globulin gm/dL Albumin/Globulin Ratio (1.1-1.8) Crossmatch 10/24/16 10/22/16 Range/Units 18:40 15:10 WBC (4.5-11.0) 10^3/ul RBC (3.5-6.1) 10^6/uL Hgb (14.0-18.0) g/dL Hct (42.0-52.0) % MCV (80.0-105.0) fl MCH (25.0-35.0) pg MCHC (31.0-37.0) g/dl RDW (11.5-14.5) % Plt Count (120.0-450.0) 10^3/uL MPV (7.0-11.0) fl Gran % (50.0-68.0) % Lymph % (Auto) (22.0-35.0) % [place] % (Auto) (1.0-6.0) % Eos % (Auto) (1.5-5.0) % Baso % (Auto) (0.0-3.0) % Gran # (1.4-6.5) Lymph # (1.2-3.4) [place] # (0.1-0.6) Eos # (0.0-0.7) Baso # (0.0-2.0) K/mm3 APTT (23.7-30.8) Seconds pCO2 41 (35-45) mm/Hg pO2 102.0 H (80-100) mm/Hg HCO3 20.2 L (21-28) mmol/L ABG pH 7.30 L (7.35-7.45) ABG Total CO2 21.5 L (22-28) mmol.L ABG O2 Saturation 99.4 H (95-98) % ABG O2 Content 10.6 L (15-23) ML/dl ABG Base Excess -5.8 L (-2.0-3.0) mmol/L ABG Hemoglobin 7.7 L (11.7-17.4) g/dL ABG Carboxyhemoglobin 1.9 H (0.5-1.5) % POC ABG HHb (Measured) 0.6 (0-5) % ABG Methemoglobin 1.2 (0.0-3.0) % ABG O2 Capacity 10.7 L (16-24) mL/dl Hgb O2 Saturation 96.4 (95.0-98.0) % FiO2 50.0 % Sodium (132-148) mmol/L Potassium (3.6-5.0) mmol/L Chloride (98-107) mmol/L Carbon Dioxide (21-33) mmol/L Anion Gap (10-20) BUN (7-21) mg/dL Creatinine (0.5-1.4) mg/dL Est GFR ( Amer) Est GFR (Non-Af Amer) Random Glucose (70-110) mg/dL Calcium (8.4-10.5) mg/dL Phosphorus (2.5-4.5) mg/dL Magnesium (1.7-2.2) mg/dL Total Bilirubin (0.2-1.3) mg/dL AST (17-59) U/L ALT (7-56) U/L Alkaline Phosphatase (38-126) U/L Total Protein (5.8-8.3) g/dL Albumin (3.0-4.8) g/dL Globulin gm/dL Albumin/Globulin Ratio (1.1-1.8) Crossmatch See Detail Laboratory Results - last 24 hr 10/22/16 10/24/16 10/25/16 15:10 18:40 00:10 WBC 10.6 D RBC 2.53 L Hgb 7.7 L Hct 23.9 L MCV 94.5 MCH 30.4 MCHC 32.2 RDW 17.3 H Plt Count 95 L MPV 11.1 H Gran % Lymph % (Auto) [place] % (Auto) Eos % (Auto) Baso % (Auto) Gran # Lymph # [place] # Eos # Baso # APTT pCO2 41 pO2 102.0 H HCO3 20.2 L ABG pH 7.30 L ABG Total CO2 21.5 L ABG O2 Saturation 99.4 H ABG O2 Content 10.6 L ABG Base Excess -5.8 L ABG Hemoglobin 7.7 L ABG Carboxyhemoglobin 1.9 H POC ABG HHb (Measured) 0.6 ABG Methemoglobin 1.2 ABG O2 Capacity 10.7 L Hgb O2 Saturation 96.4 FiO2 50.0 Sodium Potassium Chloride Carbon Dioxide Anion Gap BUN Creatinine Est GFR ( Amer) Est GFR (Non-Af Amer) Random Glucose Calcium Phosphorus Magnesium Total Bilirubin AST ALT Alkaline Phosphatase Total Protein Albumin Globulin Albumin/Globulin Ratio Crossmatch See Detail 10/25/16 10/25/16 10/25/16 05:30 06:30 06:30 WBC 9.0 RBC 2.40 L Hgb 7.3 L Hct 22.6 L MCV 94.2 MCH 30.4 MCHC 32.3 RDW 17.3 H Plt Count 102 L MPV 12.2 H Gran % 65.3 Lymph % (Auto) 28.1 [place] % (Auto) 5.8 Eos % (Auto) 0.7 L Baso % (Auto) 0.1 Gran # 5.91 Lymph # 2.5 [place] # 0.5 Eos # 0.1 Baso # 0.01 APTT pCO2 32 L pO2 104.0 H HCO3 18.5 L ABG pH 7.37 ABG Total CO2 19.5 L ABG O2 Saturation 99.6 H ABG O2 Content 9.6 L ABG Base Excess -6.2 L ABG Hemoglobin 7.0 L ABG Carboxyhemoglobin 2.3 H POC ABG HHb (Measured) 0.4 ABG Methemoglobin 1.6 ABG O2 Capacity 9.6 L Hgb O2 Saturation 95.7 FiO2 40.0 Sodium 148 Potassium 3.5 L Chloride 117 H Carbon Dioxide 19 L Anion Gap 16 BUN 93 H Creatinine 1.9 H Est GFR ( Amer) 45 Est GFR (Non-Af Amer) 37 Random Glucose 79 Calcium 7.2 L Phosphorus 6.2 H Magnesium 1.6 L Total Bilirubin 2.0 H AST 88 H ALT 81 H Alkaline Phosphatase 81 Total Protein 4.6 L Albumin 1.7 L Globulin 2.9 Albumin/Globulin Ratio 0.6 L Crossmatch 10/25/16 10/25/16 11:40 11:40 WBC 8.3 RBC 2.24 L Hgb 7.0 L Hct 21.6 L MCV 96.4 MCH 31.3 MCHC 32.4 RDW 17.6 H Plt Count 75 L MPV 11.8 H Gran % 66.3 Lymph % (Auto) 25.2 [place] % (Auto) 7.6 H Eos % (Auto) 0.7 L Baso % (Auto) 0.2 Gran # 5.51 Lymph # 2.1 [place] # 0.6 Eos # 0.1 Baso # 0.02 APTT 30.8 pCO2 pO2 HCO3 ABG pH ABG Total CO2 ABG O2 Saturation ABG O2 Content ABG Base Excess ABG Hemoglobin ABG Carboxyhemoglobin POC ABG HHb (Measured) ABG Methemoglobin ABG O2 Capacity Hgb O2 Saturation FiO2 Sodium Potassium Chloride Carbon Dioxide Anion Gap BUN Creatinine Est GFR ( Amer) Est GFR (Non-Af Amer) Random Glucose Calcium Phosphorus Magnesium Total Bilirubin AST ALT Alkaline Phosphatase Total Protein Albumin Globulin Albumin/Globulin Ratio Crossmatch Attending/Attestation - Attestation I have personally seen and examined this patient.: Yes I have fully participated in the care of the patient.: Yes I have reviewed all pertinent clinical information: Yes Notes (Text): 10/25/16 18:49 56 y/o M w/ Sepsis from multiple sources. ESRD currently making urine. uremia mildly improved. VDRF s/p trach placement. Failed PS trail today w/ RR > 30. Postive fluid balance. lasix given. Liver cirrhosis with increased ascites. US done. Plan for paracentesis . Abx changed per ID. Finished prolonged course of Meropenum and anti fungals. Currently patient is weak and not moving any extremities. 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 Family aware of the poor prognosis. DVT P PPi CC time 45 min
[2016-10-26 05:20] LABS: ARTERIAL BLOOD GAS HCO3 17.4 mmol/L (21-28); ARTERIAL BLOOD GAS O2 CAPACITY 8.4 mL/dl (16-24); ARTERIAL BLOOD GAS O2 CONTENT 8.4 ML/dl (15-23); ARTERIAL BLOOD GAS PH 7.33 (7.35-7.45); ARTERIAL BLOOD HGB O2 SAT 96.4 % (95.0-98.0); CARBOXYHEMOGLOBIN 2.8 % (0.5-1.5); HHB -0.1 % (0-5); METHEMOGLOBIN 0.9 % (0.0-3.0)
[2016-10-26] MEDS: Mineral Oil/Petrolatum Opht Oint(3.5 gm) OU SCH ×4 (05:23→18:36)
[2016-10-26] MEDS: Sodium Chloride 0.45% 1,000 ML IV SCH ×2 (05:23→05:24)
--- NOTE | 2016-10-26 06:48 | CP.PCM.PN ---
Subjective - Date & Time of Evaluation Date of Evaluation: 10/25/16 Time of Evaluation: 12:00 - Subjective Subjective: Patient with copious but decreased stool output in flexiseal per nursing staff; Objective - Vital Signs/Intake and Output Vital Signs (last 24 hours): Temp Pulse Resp BP Pulse Ox 98.6 F 93 H 34 H 112/54 L 100 10/26/16 06:27 10/26/16 06:27 10/26/16 06:27 10/26/16 06:27 10/26/16 05:00 Intake and Output: 10/25/16 10/26/16 18:59 06:59 Intake Total 3100 325 Output Total 1800 Balance 1300 325 - Medications Medications: Current Medications Amikacin Sulfate (Amikacin 500 Mg/2ml Inj) 500 mg IH [id number] [facility] Last Admin: 10/25/16 20:00 Dose: 500 mg Artificial Tears (Artificial Tears Opht Oint) 1 gm OU Q6 [facility] Last Admin: 10/26/16 05:23 Dose: Not Given Folic Acid (Folic Acid) 1 mg PO DAILY [facility] Last Admin: 10/25/16 16:45 Dose: Not Given Gentamicin Sulfate 270 mg/ (Sodium Chloride) 106.75 mls @ 106.75 mls/hr IVPB ONCE [facility] Last Admin: 10/17/16 11:42 Dose: 106.75 mls/hr Sodium Chloride (Sodium Chloride 0.45%) 1,000 mls @ 200 mls/hr IV .Q5H [facility] Last Admin: 10/26/16 05:24 Dose: 200 mls/hr Dextrose (Dextrose 5% In Water 1000 Ml) 1,000 mls @ 50 mls/hr IV .Q20H [facility] Last Admin: 10/25/16 13:27 Dose: 50 mls/hr Lactulose (Enulose) 20 gm PO BID [facility] Last Admin: 10/25/16 19:42 Dose: Not Given Metoclopramide HCl (Reglan) 10 mg IVP Q6H PRN PRN Reason: Other Last Admin: 10/25/16 00:41 Dose: 10 mg Midodrine (Proamatine) 5 mg PO TID [facility] Last Admin: 10/25/16 19:43 Dose: Not Given Morphine Sulfate (Morphine) 2 mg IVP Q4H PRN PRN Reason: Pain, severe (8-10) Pantoprazole Sodium (Protonix Inj) 40 mg IVP Q12 [facility] Last Admin: 10/25/16 21:11 Dose: 40 mg Thiamine HCl (Vitamin B1 Tab) 100 mg PO DAILY [facility] Last Admin: 10/25/16 16:44 Dose: Not Given Vitamin B Complex/Vit C/Folic Acid (Nephro-Mariann) 1 tab PO 0800 [facility] Last Admin: 10/25/16 16:45 Dose: Not Given - Labs Labs: 10/25/16 11:40 10/25/16 06:30 PT 18.0 Seconds (9.9-11.8) H 10/23/16 05:30 INR 1.67 (0.93-1.08) H 10/23/16 05:30 APTT 30.8 Seconds (23.7-30.8) 10/25/16 11:40 - Constitutional Appears: No Acute Distress - Head Exam Head Exam: NORMAL INSPECTION - Eye Exam Eye Exam: Normal appearance - ENT Exam ENT Exam: Mucous Membranes Moist - Respiratory Exam Respiratory Exam: Clear to Ausculation Bilateral Additional comments: tachypneic - Cardiovascular Exam Cardiovascular Exam: RRR, +S1, +S2 - GI/Abdominal Exam GI & Abdominal Exam: Distended, Soft - Extremities Exam Additional comments: moderately edematous; - Neurological Exam Neurological Exam: Alert - Skin Skin Exam: Warm. absent: Cyanosis Assessment and Plan (1) Acute renal failure Assessment & Plan: Improving; continuing IVF to correct any pre-renal component; Status: Acute (2) Acute hypercapnic respiratory failure Assessment & Plan: Still tachypneic; agree with paracentesis to help resp status; Status: Acute (3) Hypokalemia Assessment & Plan: Improved; monitor; Status: Acute (4) Hypocalcemia Status: Resolved (5) SIRS (systemic inflammatory response syndrome) Status: Acute (6) Hypernatremia Assessment & Plan: Unchanged since yesterday; continue 1/2NS at 200 cc/hr, start D5W at 50 cc/hr; Status: Acute
--- NOTE | 2016-10-26 07:15 | RAD ---
HISTORY: Mech vent COMPARISON: Frontal chest radiograph 10/25/2016. FINDINGS: Tracheostomy tube is unchanged in position with prior feeding tube appearing to have been removed. LUNGS: Diminished right infrahilar infiltrate is appreciated with significant residual noted. No definite left-sided infiltrate. PLEURA: No significant pleural effusion identified, no pneumothorax apparent. The left costophrenic sulcus has been excluded. Repeat radiograph recommended. CARDIOVASCULAR: Normal. OSSEOUS STRUCTURES: No significant abnormalities. VISUALIZED UPPER ABDOMEN: Normal. OTHER FINDINGS: None. IMPRESSION: Mildly diminished right infrahilar infiltrate with significant residual remaining. Prior feeding tube appears to been removed.
[2016-10-26] MEDS: AMIKACIN 500 MG/2 ML IH SCH ×2 (07:53→20:52)
[2016-10-26] MEDS: Multivitamin Vitamin B Complex (Nephro-Vite) Tab PO SCH (08:16)
[2016-10-26 10:13] LABS: ALB/GLOB RATIO 0.6 (1.1-1.8); BILIRUBIN,TOTAL 2.2 mg/dL (0.2-1.3); CALCIUM 7.4 mg/dL (8.4-10.5); MAGNESIUM 1.8 mg/dL (1.7-2.2); PHOSPHOROUS 6.7 mg/dL (2.5-4.5); POTASSIUM 3.6 mmol/L (3.6-5.0); TOTAL PROTEIN 4.5 g/dL (5.8-8.3)
[2016-10-26 10:15] LABS: INR 1.86 (0.93-1.08); PARTIAL THROMBOPLASTIN TIME 34.2 Seconds (23.7-30.8)
--- NOTE | 2016-10-26 10:28 | CP.PCM.PN ---
Subjective - Date & Time of Evaluation Date of Evaluation: 10/26/16 Time of Evaluation: 09:10 - Subjective Subjective: Continues to be on the ventilator but is more awake, no fevers overnight. Objective - Vital Signs/Intake and Output Vital Signs (last 24 hours): Temp Pulse Resp BP Pulse Ox 98.6 F 93 H 34 H 112/54 L 100 10/26/16 06:27 10/26/16 06:27 10/26/16 06:27 10/26/16 06:27 10/26/16 05:00 Intake and Output: 10/25/16 10/26/16 18:59 06:59 Intake Total 3100 325 Output Total 1800 Balance 1300 325 - Medications Medications: Current Medications Amikacin Sulfate (Amikacin 500 Mg/2ml Inj) 500 mg IH [id number] [facility] Last Admin: 10/25/16 20:00 Dose: 500 mg Artificial Tears (Artificial Tears Opht Oint) 1 gm OU Q6 [facility] Last Admin: 10/26/16 05:23 Dose: Not Given Folic Acid (Folic Acid) 1 mg PO DAILY [facility] Last Admin: 10/25/16 16:45 Dose: Not Given Gentamicin Sulfate 270 mg/ (Sodium Chloride) 106.75 mls @ 106.75 mls/hr IVPB ONCE [facility] Last Admin: 10/17/16 11:42 Dose: 106.75 mls/hr Sodium Chloride (Sodium Chloride 0.45%) 1,000 mls @ 200 mls/hr IV .Q5H [facility] Last Admin: 10/26/16 05:24 Dose: 200 mls/hr Dextrose (Dextrose 5% In Water 1000 Ml) 1,000 mls @ 50 mls/hr IV .Q20H [facility] Last Admin: 10/25/16 13:27 Dose: 50 mls/hr Lactulose (Enulose) 20 gm PO BID [facility] Last Admin: 10/25/16 19:42 Dose: Not Given Metoclopramide HCl (Reglan) 10 mg IVP Q6H PRN PRN Reason: Other Last Admin: 10/25/16 00:41 Dose: 10 mg Midodrine (Proamatine) 5 mg PO TID [facility] Last Admin: 10/25/16 19:43 Dose: Not Given Morphine Sulfate (Morphine) 2 mg IVP Q4H PRN PRN Reason: Pain, severe (8-10) Pantoprazole Sodium (Protonix Inj) 40 mg IVP Q12 [facility] Last Admin: 10/25/16 21:11 Dose: 40 mg Thiamine HCl (Vitamin B1 Tab) 100 mg PO DAILY [facility] Last Admin: 10/25/16 16:44 Dose: Not Given Vitamin B Complex/Vit C/Folic Acid (Nephro-Mariann) 1 tab PO 0800 [facility] Last Admin: 10/25/16 16:45 Dose: Not Given - Labs Labs: 10/25/16 11:40 10/25/16 06:30 PT 18.0 Seconds (9.9-11.8) H 10/23/16 05:30 INR 1.67 (0.93-1.08) H 10/23/16 05:30 APTT 30.8 Seconds (23.7-30.8) 10/25/16 11:40 - Constitutional Appears: Chronically Ill - Neck Exam Neck Exam: absent: Meningismus Additional comments: tracheostomy tube in place - Respiratory Exam Respiratory Exam: Decreased Breath Sounds - Cardiovascular Exam Cardiovascular Exam: +S1, +S2 - GI/Abdominal Exam GI & Abdominal Exam: Soft. absent: Tenderness Assessment and Plan - Assessment and Plan (Free Text) Plan: Assessment severe sepsis with ventilator-dependent respiratory failure (now with tracheostomy), respiratory acidosis and acute renal failure probably due to probable right sided and healthcare-associated pneumonia with Pseudomonas, clinically improving S/P C. albicans fungemia S/P C. diff. colitis liver cirrhosis probably from alcohol abuse; S/P paracentesis; initially presented with delerium tremens;chronic alcohol abuse with history of liver cirrhosis and esophageal varices significant smoking history Plan S/P Merrem (11 days for the the Pseudomonas in the sputum); continue aerosolized tobramycin (day 7) to complete 7-10 days of therapy; S/P 14 days of PO Vancomycin (day 14) S/P Mycamine, had 16 days of therapy (repeat blood cx on 10/08/2016 are negative - patient had Ophtho evaluation 2 weeks ago and no endophthalmitis was seen) will continue to monitor clinically patient continues to be in critical condition and overall prognosis is poor - patient is DNR discussed with ICU team
--- NOTE | 2016-10-26 14:13 | CP.CCUPN ---
<KENDY CERNA - Last Filed: 10/26/16 13:54> CCU Subjective - Physician Review Subjective (Free Text): 10/26/16 14:14 Patient was seen and assessed at bedside. Patient intubated on PS/CPAP and without sedation but is verbally unresponsive. No other acute events noted overnight, per nursing. ROS unobtainable due to clinical condition of patient. CCU Objective - Vital Signs / Intake & Output Vital Signs (Last 4 hours): Vital Signs Temp Pulse Resp BP Pulse Ox 10/26/16 13:00 99.0 F 98 H 104/68 96 10/26/16 12:01 99.0 F 104 H 95/73 L 100 10/26/16 12:00 99.0 F 105 H 10/26/16 11:09 120/75 10/26/16 11:00 98.8 F 108 H 120/75 100 10/26/16 10:51 98.8 F 101 H 36 H 115/71 10/26/16 10:00 98.8 F 101 H 115/71 100 Intake and Output (Last 8hrs): Intake & Output 10/25/16 10/26/16 10/26/16 22:59 06:59 14:59 Intake Total 3100 325 5 Output Total 1800 Balance 1300 325 5 Intake: IV 3100 0.45 S 2400 dextrose 5 300 meds 400 Blood Product 325 0 Red Blood Cells Cpd As1 325 Lr Unit [id number] Red Blood Cells Cpd As1 0 Lr Unit [id number] Other 5 Red Blood Cells Cpd As1 5 Lr Unit [id number] Output: Urine 1100 Urethral (Vyas) 1100 Stool 700 - Physical Exam Head: Positive for: Atraumatic, Normocephalic Pupils: Positive for: PERRL Conjunctiva: Positive for: Normal Ears: Positive for: Normal Mouth: Positive for: Moist Mucous Membranes Nose (External): Positive for: Atraumatic Nose (Internal): Positive for: Other Neck: Positive for: Normal Range of Motion, Trachea Midline, Other ( Tracheostomy insertion site without signs of infection). Negative for: Lymphadenopathy Respiratory/Chest: Positive for: Clear to Auscultation, Good Air Exchange, Tachypneic, Other (Mechanical ventilation). Negative for: Respiratory Distress , Accessory Muscle Use, Wheezes, Decreased Breath Sounds, Retracting, Rhonchi Cardiovascular: Positive for: Regular Rate and Rhythm, Normal S1, S2. Negative for: Murmurs Abdomen: Positive for: Normal Bowel Sounds, Other (Paracentesis site with sutures, no signs of infection, dressing clean, dry and intact; rectal tube draining melena). Negative for: Tenderness, Distention, Peritoneal Signs Genitourinary Male: Positive for: Other (Vyas in place, no signs of infection) . Negative for: Testicle Swelling Upper Extremity: Positive for: Edema (1+ pitting edema B/L UE). Negative for: Normal Inspection (Multiple areas of ecchymoses), Cyanosis Lower Extremity: Positive for: Edema (1+ Pitting edema B/L up to thighs). Negative for: Normal Inspection Neurological: Positive for: Other (Gag and corneal reflex intact; ability to track motion with eyes intact). Negative for: GCS=15 (GCS of 3T), CN II-XII Intact, Speech Normal Skin: Positive for: Warm, Other (Area of erythema on the presacral area of the lower back measuring approximately 2-3cm with no skin ulceration; currently unstageable ). Negative for: Rashes, Normal Color (multiple ecchymoses over UE B/L) Psychiatric: Negative for: Alert (arousable to tactile stimuli), Oriented x 3, Normal Insight, Normal Concentration - Medications Active Medications: Active Medications Generic Name Dose Route Start Last Admin Trade Name Freq PRN Reason Stop Dose Admin Amikacin Sulfate 500 mg 10/19/16 20:00 10/26/16 07:53 Amikacin 500 Mg/2ml Inj IH 500 mg [id number] TONI Administration Artificial Tears 1 gm 10/10/16 18:00 10/26/16 12:51 Artificial Tears Opht Oint OU 1 applic Q6 TONI Administration Folic Acid 1 mg 10/03/16 10:00 10/26/16 10:41 Folic Acid PO Not Given DAILY TONI Gentamicin Sulfate 270 mg/ 106.75 mls @ 106.75 mls/hr 10/15/16 10:00 11:42 Sodium Chloride IVPB 106.75 mls/hr ONCE TONI Administration Dextrose 1,000 mls @ 100 mls/hr 10/26/16 11:42 10/26/16 12:50 Dextrose 5% In Water 1000 Ml IV 100 mls/hr .Q10H TONI Administration Lactulose 20 gm 10/24/16 18:00 10/26/16 10:41 Enulose PO Not Given BID [facility] Metoclopramide HCl 10 mg 10/09/16 16:56 10/25/16 00:41 Reglan IVP 10 mg Q6H PRN Administration Other Midodrine 5 mg 10/09/16 10:00 10/26/16 13:26 Proamatine PO Not Given TID [facility] Morphine Sulfate 2 mg 10/22/16 00:52 Morphine IVP Q4H PRN Pain, severe (8-10) Pantoprazole Sodium 40 mg 10/24/16 10:00 10/26/16 10:12 Protonix Inj IVP 40 mg Q12 TONI Administration Thiamine HCl 100 mg 10/03/16 10:00 10/26/16 10:41 Vitamin B1 Tab PO Not Given DAILY [facility] Vitamin B Complex/Vit C/Folic Acid 1 tab 10/03/16 08:00 10/26/16 08:16 Nephro-Mariann PO Not Given 0800 [facility] - Patient Studies Lab Studies: Lab Studies 10/26/16 10/26/16 10/26/16 Range/Units 10:00 10:00 05:05 PT 20.1 H (9.9-11.8) Seconds INR 1.86 H (0.93-1.08) APTT 34.2 H (23.7-30.8) Seconds pCO2 33 L (35-45) mm/Hg pO2 106.0 H (80-100) mm/Hg HCO3 17.4 L (21-28) mmol/L ABG pH 7.33 L (7.35-7.45) ABG Total CO2 18.4 L (22-28) mmol.L ABG O2 Saturation 100.1 H (95-98) % ABG O2 Content 8.4 L (15-23) ML/dl ABG Base Excess -7.8 L (-2.0-3.0) mmol/L ABG Hemoglobin 6.0 L (11.7-17.4) g/dL ABG Carboxyhemoglobin 2.8 H (0.5-1.5) % POC ABG HHb (Measured) -0.1 L (0-5) % ABG Methemoglobin 0.9 (0.0-3.0) % ABG O2 Capacity 8.4 L (16-24) mL/dl Hgb O2 Saturation 96.4 (95.0-98.0) % FiO2 40.0 % Sodium 145 (132-148) mmol/L Potassium 3.6 (3.6-5.0) mmol/L Chloride 118 H (98-107) mmol/L Carbon Dioxide 17 L (21-33) mmol/L Anion Gap 14 (10-20) BUN 89 H (7-21) mg/dL Creatinine 1.9 H (0.5-1.4) mg/dL Est GFR ( Amer) 45 Est GFR (Non-Af Amer) 37 Random Glucose 84 (70-110) mg/dL Calcium 7.4 L (8.4-10.5) mg/dL Phosphorus 6.7 H (2.5-4.5) mg/dL Magnesium 1.8 (1.7-2.2) mg/dL Total Bilirubin 2.2 H (0.2-1.3) mg/dL AST 87 H (17-59) U/L ALT 87 H (7-56) U/L Alkaline Phosphatase 68 (38-126) U/L Total Protein 4.5 L (5.8-8.3) g/dL Albumin 1.7 L (3.0-4.8) g/dL Globulin 2.7 gm/dL Albumin/Globulin Ratio 0.6 L (1.1-1.8) Blood Type Antibody Screen Antibody Identification Crossmatch BBK History Checked 10/25/16 10/22/16 Range/Units 22:31 15:10 PT (9.9-11.8) Seconds INR (0.93-1.08) APTT (23.7-30.8) Seconds pCO2 (35-45) mm/Hg pO2 (80-100) mm/Hg HCO3 (21-28) mmol/L ABG pH (7.35-7.45) ABG Total CO2 (22-28) mmol.L ABG O2 Saturation (95-98) % ABG O2 Content (15-23) ML/dl ABG Base Excess (-2.0-3.0) mmol/L ABG Hemoglobin (11.7-17.4) g/dL ABG Carboxyhemoglobin (0.5-1.5) % POC ABG HHb (Measured) (0-5) % ABG Methemoglobin (0.0-3.0) % ABG O2 Capacity (16-24) mL/dl Hgb O2 Saturation (95.0-98.0) % FiO2 % Sodium (132-148) mmol/L Potassium (3.6-5.0) mmol/L Chloride (98-107) mmol/L Carbon Dioxide (21-33) mmol/L Anion Gap (10-20) BUN (7-21) mg/dL Creatinine (0.5-1.4) mg/dL Est GFR ( Amer) Est GFR (Non-Af Amer) Random Glucose (70-110) mg/dL Calcium (8.4-10.5) mg/dL Phosphorus (2.5-4.5) mg/dL Magnesium (1.7-2.2) mg/dL Total Bilirubin (0.2-1.3) mg/dL AST (17-59) U/L ALT (7-56) U/L Alkaline Phosphatase (38-126) U/L Total Protein (5.8-8.3) g/dL Albumin (3.0-4.8) g/dL Globulin gm/dL Albumin/Globulin Ratio (1.1-1.8) Blood Type O POSITIVE Antibody Screen Negative Antibody Identification TNP Crossmatch See Detail See Detail BBK History Checked Patient has bt Laboratory Results - last 24 hr 10/22/16 10/25/16 10/26/16 15:10 22:31 05:05 PT INR APTT pCO2 33 L pO2 106.0 H HCO3 17.4 L ABG pH 7.33 L ABG Total CO2 18.4 L ABG O2 Saturation 100.1 H ABG O2 Content 8.4 L ABG Base Excess -7.8 L ABG Hemoglobin 6.0 L ABG Carboxyhemoglobin 2.8 H POC ABG HHb (Measured) -0.1 L ABG Methemoglobin 0.9 ABG O2 Capacity 8.4 L Hgb O2 Saturation 96.4 FiO2 40.0 Sodium Potassium Chloride Carbon Dioxide Anion Gap BUN Creatinine Est GFR ( Amer) Est GFR (Non-Af Amer) Random Glucose Calcium Phosphorus Magnesium Total Bilirubin AST ALT Alkaline Phosphatase Total Protein Albumin Globulin Albumin/Globulin Ratio Blood Type O POSITIVE Antibody Screen Negative Antibody Identification TNP Crossmatch See Detail See Detail BBK History Checked Patient has bt 10/26/16 10/26/16 10:00 10:00 PT 20.1 H INR 1.86 H APTT 34.2 H pCO2 pO2 HCO3 ABG pH ABG Total CO2 ABG O2 Saturation ABG O2 Content ABG Base Excess ABG Hemoglobin ABG Carboxyhemoglobin POC ABG HHb (Measured) ABG Methemoglobin ABG O2 Capacity Hgb O2 Saturation FiO2 Sodium 145 Potassium 3.6 Chloride 118 H Carbon Dioxide 17 L Anion Gap 14 BUN 89 H Creatinine 1.9 H Est GFR ( Amer) 45 Est GFR (Non-Af Amer) 37 Random Glucose 84 Calcium 7.4 L Phosphorus 6.7 H Magnesium 1.8 Total Bilirubin 2.2 H AST 87 H ALT 87 H Alkaline Phosphatase 68 Total Protein 4.5 L Albumin 1.7 L Globulin 2.7 Albumin/Globulin Ratio 0.6 L Blood Type Antibody Screen Antibody Identification Crossmatch BBK History Checked Fingerstick Blood Sugar Results: 105 Review of Systems - Review of Systems Review of Systems: Please refer to [facility] Critical Care Progress Note - Ventilator Checklist Head of Bed 30 Degrees: Yes PUD Prophalyxis: Yes DVT Prophylaxis: Yes Oral Care with Chlorhexidine Gluconate {CHG}: Yes - Extremities/Vascular Does the Patient have a Central Venous Catheter?: No Does the Patient need a Central Venous Catheter?: No Does the Patient have a Vyas Catheter?: Yes Does the Patient need a Vyas Catheter?: Yes - Prophylaxis GI Prophylaxis GI: PPI - Prophylaxis DVT Prophylaxis DVT: SCDs Assessment/Plan - Assessment and Plan (Free Text) Assessment: 56 year old male with an initial presentation of AMS in the setting of persistent hypokalemia and alcohol withdrawal, which resolved. Patient was then intubated after he was found to be in hypercapnic respiratory failure and subsequently became hemodynamically unstable requiring dual vasopressor support. His presentation is consistent with distributive shock likely from either acute decompensated chronic liver failure or sepsis from C. Diff colitis , with multiorgan dysfunction syndrome including renal failure, encephalopathy and respiratory failure. Patient is no longer requiring vasopressin or levophed for hemodynamic support but is on midodrine. Patient is currently unresponsive to verbal or tactile stimuli off of sedation. Patient currently on PRVC and is s /p tracheostomy placement on 10/19. Patient was scheduled for open G-Tube placement on 10/24 but this was cancelled as patient has melena/BRB in his rectal drainage with new scheduled date to be 10/26. Plan: Neuro: -Current GCS of 6 ([id number]) -Currently intubated with no sedation -Continue Lactulose 20mg BID -Continue Thiamine, Folic Acid and MV supplementation Pulm: -Chest X-Ray on 10/26 notable for mildly diminished right infrahilar infiltrate with significant residual remaining -Continue mechanical ventilation via tracheostomy with daily weaning trials of PS/CPAP as tolerated -Continue Amikacin 500mg IH [id number] -Given one dose of IV Lasix 80mg for diuresis to assist with daily weaning trial failure -ABG showing mild metabolic acidosis with a pH of 7.33, a pO2 of 106 and a pCO2 of 33 -Continue protective lung ventilation strategy and VAP prevention strategies, including maintaining HOB greater that 35 degrees, oral hygiene, chlorhexidine in the posterior pharynx and GI/DVT prophylaxis -Continue Duonebs 3ml IH [id number] -ENT consulted, all recommendations appreciated Cardio: -Continue midodrine 5mg PO TID -Cardiology consulted, appreciate all recommendations GI: -Abdominal Ultrasound showed known cirrhosis and known ascites, will assess for need for paracentesis with consent obtained should it be indicated -Gastrostomy tube placement scheduled for 10/24 cancelled due to melena/blood in his rectal drainage and rescheduled for 10/26 -Bleeding likely due to erosion and patient not a good candidate for EGD at this time, per GI -Will consider paracentesis to assist with failure of vent weaning -Continue Lactulose 20mg BID -Continue Reglan 10mg IVP Q6H PRN -Rectal tube in place and currently draining 700cc of melena over the past 24 hours -GI and Surgery consulted, all recommendations appreciated Renal: -BUN/Creatinine at 89/1.9, representing improvement of acute kidney injury -Continue D5W at 100mls/hr -Vyas catheter in place and draining 1100cc over the past 24 hours -Will continue to replete calcium, magnesium, phosphorus and potassium as needed -Will continue to monitor with serial CMP's with magnesium and phosphorous levels -Nephrology consulted, all recommendations appreciated Endocrine: -Will maintain euglycemia with blood glucose between 140 and 180 Heme/Onc: -Post transfusion H/H and platelets pending -Will continue to monitor with serial CBC's -Extremity Ultrasound negative for DVT's MSK: -Area of erythema on presacral area measuring approximately 2cm with no skin breakage -Continue to turn patient Q2H to prevent ulceration and air mattress and adequate skin hydration -PT/OT evaluation and treatment ID: -Currently on Amikacin 500mg IH [id number] (Day 7); Gentamycin at 106.75mls/hr IVPB (currently held until trough is 1-2mcg) -Currently afebrile, normotensive, with no leukocytosis and mild tachycardia -Most recent blood and urine cultures negative for growth -Continue active patient cooling with cooling blankets for temperatures over 100.4 -No endophthalmitis noted on ophtho exam -ID and Ophtho consulted, all recommendations appreciated Lines: -Continue all peripheral lines GI Prophylaxis: Protonix DVT Prophylaxis: SCD's Disposition: Scheduled for PEG tube placement today (10/26). Poor prognosis overall and will need hook and eye attacher care in a specialized facility. Patient seen and case discussed in detail with attending, Dr. Hartmann. - Date & Time Date: 10/26/16 Time: 13:55 <Mary Kate GALLEGOS,[facility] - Last Filed: 10/26/16 16:39> CCU Objective - Vital Signs / Intake & Output Vital Signs (Last 4 hours): Vital Signs Temp Pulse BP Pulse Ox 10/26/16 13:00 99.0 F 98 H 104/68 96 Intake and Output (Last 8hrs): Intake & Output 10/26/16 10/26/16 10/26/16 06:59 14:59 22:59 Intake Total 325 5 Balance 325 5 Intake: Blood Product 325 0 Red Blood Cells Cpd As1 325 Lr Unit [id number] Red Blood Cells Cpd As1 0 Lr Unit [id number] Other 5 Red Blood Cells Cpd As1 5 Lr Unit [id number] - Medications Active Medications: Active Medications Generic Name Dose Route Start Last Admin Trade Name Freq PRN Reason Stop Dose Admin Amikacin Sulfate 500 mg 10/19/16 20:00 10/26/16 07:53 Amikacin 500 Mg/2ml Inj IH 500 mg [id number] TONI Administration Artificial Tears 1 gm 10/10/16 18:00 10/26/16 12:51 Artificial Tears Opht Oint OU 1 applic Q6 TONI Administration Folic Acid 1 mg 10/03/16 10:00 10/26/16 10:41 Folic Acid PO Not Given DAILY [facility] Gentamicin Sulfate 270 mg/ 106.75 mls @ 106.75 mls/hr 10/15/16 10:00 11:42 Sodium Chloride IVPB 106.75 mls/hr ONCE TONI Administration Dextrose 1,000 mls @ 100 mls/hr 10/26/16 11:42 10/26/16 12:50 Dextrose 5% In Water 1000 Ml IV 100 mls/hr .Q10H TONI Administration Lactulose 20 gm 10/24/16 18:00 10/26/16 10:41 Enulose PO Not Given BID [facility] Metoclopramide HCl 10 mg 10/09/16 16:56 10/25/16 00:41 Reglan IVP 10 mg Q6H PRN Administration Other Midodrine 5 mg 10/09/16 10:00 10/26/16 13:26 Proamatine PO Not Given TID [facility] Morphine Sulfate 2 mg 10/22/16 00:52 Morphine IVP Q4H PRN Pain, severe (8-10) Pantoprazole Sodium 40 mg 10/24/16 10:00 10/26/16 10:12 Protonix Inj IVP 40 mg Q12 TONI Administration Thiamine HCl 100 mg 10/03/16 10:00 10/26/16 10:41 Vitamin B1 Tab PO Not Given DAILY [facility] Vitamin B Complex/Vit C/Folic Acid 1 tab 10/03/16 08:00 10/26/16 08:16 Nephro-Mariann PO Not Given 0800 [facility] - Patient Studies Lab Studies: Lab Studies 10/26/16 10/26/16 10/26/16 Range/Units 14:05 10:00 10:00 WBC 10.4 D (4.5-11.0) 10^3/ul RBC 2.65 L (3.5-6.1) 10^6/uL Hgb 8.2 L (14.0-18.0) g/dL Hct 24.6 L (42.0-52.0) % MCV 92.8 D (80.0-105.0) fl MCH 30.9 (25.0-35.0) pg MCHC 33.3 (31.0-37.0) g/dl RDW 17.0 H (11.5-14.5) % Plt Count 87 L (120.0-450.0) 10^3/uL MPV 11.4 H (7.0-11.0) fl Gran % 68.3 H (50.0-68.0) % Lymph % (Auto) 24.4 (22.0-35.0) % [place] % (Auto) 6.4 H (1.0-6.0) % Eos % (Auto) 0.8 L (1.5-5.0) % Baso % (Auto) 0.1 (0.0-3.0) % Gran # 7.11 H (1.4-6.5) Lymph # 2.5 (1.2-3.4) [place] # 0.7 H (0.1-0.6) Eos # 0.1 (0.0-0.7) Baso # 0.01 (0.0-2.0) K/mm3 PT 20.1 H (9.9-11.8) Seconds INR 1.86 H (0.93-1.08) APTT 34.2 H (23.7-30.8) Seconds pCO2 (35-45) mm/Hg pO2 (80-100) mm/Hg HCO3 (21-28) mmol/L ABG pH (7.35-7.45) ABG Total CO2 (22-28) mmol.L ABG O2 Saturation (95-98) % ABG O2 Content (15-23) ML/dl ABG Base Excess (-2.0-3.0) mmol/L ABG Hemoglobin (11.7-17.4) g/dL ABG Carboxyhemoglobin (0.5-1.5) % POC ABG HHb (Measured) (0-5) % ABG Methemoglobin (0.0-3.0) % ABG O2 Capacity (16-24) mL/dl Hgb O2 Saturation (95.0-98.0) % FiO2 % Sodium 145 (132-148) mmol/L Potassium 3.6 (3.6-5.0) mmol/L Chloride 118 H (98-107) mmol/L Carbon Dioxide 17 L (21-33) mmol/L Anion Gap 14 (10-20) BUN 89 H (7-21) mg/dL Creatinine 1.9 H (0.5-1.4) mg/dL Est GFR ( Amer) 45 Est GFR (Non-Af Amer) 37 Random Glucose 84 (70-110) mg/dL Calcium 7.4 L (8.4-10.5) mg/dL Phosphorus 6.7 H (2.5-4.5) mg/dL Magnesium 1.8 (1.7-2.2) mg/dL Total Bilirubin 2.2 H (0.2-1.3) mg/dL AST 87 H (17-59) U/L ALT 87 H (7-56) U/L Alkaline Phosphatase 68 (38-126) U/L Total Protein 4.5 L (5.8-8.3) g/dL Albumin 1.7 L (3.0-4.8) g/dL Globulin 2.7 gm/dL Albumin/Globulin Ratio 0.6 L (1.1-1.8) Blood Type Antibody Screen Antibody Identification Crossmatch BBK History Checked 10/26/16 10/25/16 Range/Units 05:05 22:31 WBC (4.5-11.0) 10^3/ul RBC (3.5-6.1) 10^6/uL Hgb (14.0-18.0) g/dL Hct (42.0-52.0) % MCV (80.0-105.0) fl MCH (25.0-35.0) pg MCHC (31.0-37.0) g/dl RDW (11.5-14.5) % Plt Count (120.0-450.0) 10^3/uL MPV (7.0-11.0) fl Gran % (50.0-68.0) % Lymph % (Auto) (22.0-35.0) % [place] % (Auto) (1.0-6.0) % Eos % (Auto) (1.5-5.0) % Baso % (Auto) (0.0-3.0) % Gran # (1.4-6.5) Lymph # (1.2-3.4) [place] # (0.1-0.6) Eos # (0.0-0.7) Baso # (0.0-2.0) K/mm3 PT (9.9-11.8) Seconds INR (0.93-1.08) APTT (23.7-30.8) Seconds pCO2 33 L (35-45) mm/Hg pO2 106.0 H (80-100) mm/Hg HCO3 17.4 L (21-28) mmol/L ABG pH 7.33 L (7.35-7.45) ABG Total CO2 18.4 L (22-28) mmol.L ABG O2 Saturation 100.1 H (95-98) % ABG O2 Content 8.4 L (15-23) ML/dl ABG Base Excess -7.8 L (-2.0-3.0) mmol/L ABG Hemoglobin 6.0 L (11.7-17.4) g/dL ABG Carboxyhemoglobin 2.8 H (0.5-1.5) % POC ABG HHb (Measured) -0.1 L (0-5) % ABG Methemoglobin 0.9 (0.0-3.0) % ABG O2 Capacity 8.4 L (16-24) mL/dl Hgb O2 Saturation 96.4 (95.0-98.0) % FiO2 40.0 % Sodium (132-148) mmol/L Potassium (3.6-5.0) mmol/L Chloride (98-107) mmol/L Carbon Dioxide (21-33) mmol/L Anion Gap (10-20) BUN (7-21) mg/dL Creatinine (0.5-1.4) mg/dL Est GFR ( Amer) Est GFR (Non-Af Amer) Random Glucose (70-110) mg/dL Calcium (8.4-10.5) mg/dL Phosphorus (2.5-4.5) mg/dL Magnesium (1.7-2.2) mg/dL Total Bilirubin (0.2-1.3) mg/dL AST (17-59) U/L ALT (7-56) U/L Alkaline Phosphatase (38-126) U/L Total Protein (5.8-8.3) g/dL Albumin (3.0-4.8) g/dL Globulin gm/dL Albumin/Globulin Ratio (1.1-1.8) Blood Type O POSITIVE Antibody Screen Negative Antibody Identification TNP Crossmatch See Detail BBK History Checked Patient has bt Laboratory Results - last 24 hr 10/25/16 10/26/16 10/26/16 22:31 05:05 10:00 WBC RBC Hgb Hct MCV MCH MCHC RDW Plt Count MPV Gran % Lymph % (Auto) [place] % (Auto) Eos % (Auto) Baso % (Auto) Gran # Lymph # [place] # Eos # Baso # PT INR APTT pCO2 33 L pO2 106.0 H HCO3 17.4 L ABG pH 7.33 L ABG Total CO2 18.4 L ABG O2 Saturation 100.1 H ABG O2 Content 8.4 L ABG Base Excess -7.8 L ABG Hemoglobin 6.0 L ABG Carboxyhemoglobin 2.8 H POC ABG HHb (Measured) -0.1 L ABG Methemoglobin 0.9 ABG O2 Capacity 8.4 L Hgb O2 Saturation 96.4 FiO2 40.0 Sodium 145 Potassium 3.6 Chloride 118 H Carbon Dioxide 17 L Anion Gap 14 BUN 89 H Creatinine 1.9 H Est GFR ( Amer) 45 Est GFR (Non-Af Amer) 37 Random Glucose 84 Calcium 7.4 L Phosphorus 6.7 H Magnesium 1.8 Total Bilirubin 2.2 H AST 87 H ALT 87 H Alkaline Phosphatase 68 Total Protein 4.5 L Albumin 1.7 L Globulin 2.7 Albumin/Globulin Ratio 0.6 L Blood Type O POSITIVE Antibody Screen Negative Antibody Identification TNP Crossmatch See Detail BBK History Checked Patient has bt 10/26/16 10/26/16 10:00 14:05 WBC 10.4 D RBC 2.65 L Hgb 8.2 L Hct 24.6 L MCV 92.8 D MCH 30.9 MCHC 33.3 RDW 17.0 H Plt Count 87 L MPV 11.4 H Gran % 68.3 H Lymph % (Auto) 24.4 [place] % (Auto) 6.4 H Eos % (Auto) 0.8 L Baso % (Auto) 0.1 Gran # 7.11 H Lymph # 2.5 [place] # 0.7 H Eos # 0.1 Baso # 0.01 PT 20.1 H INR 1.86 H APTT 34.2 H pCO2 pO2 HCO3 ABG pH ABG Total CO2 ABG O2 Saturation ABG O2 Content ABG Base Excess ABG Hemoglobin ABG Carboxyhemoglobin POC ABG HHb (Measured) ABG Methemoglobin ABG O2 Capacity Hgb O2 Saturation FiO2 Sodium Potassium Chloride Carbon Dioxide Anion Gap BUN Creatinine Est GFR ( Amer) Est GFR (Non-Af Amer) Random Glucose Calcium Phosphorus Magnesium Total Bilirubin AST ALT Alkaline Phosphatase Total Protein Albumin Globulin Albumin/Globulin Ratio Blood Type Antibody Screen Antibody Identification Crossmatch BBK History Checked Attending/Attestation - Attestation I have personally seen and examined this patient.: Yes I have fully participated in the care of the patient.: Yes I have reviewed all pertinent clinical information: Yes Notes (Text): 10/26/16 16:35 Sepsis from multi organisms. On abx currently to complete 7 day course. S/P trach placement and on P.S trial daily . Failed to keep RR< 30 . Mental status improved but , motor function not improved. Plan for paracentesis and PEG tube. dvt p cc time 55 min
[2016-10-26 14:23] LABS: BASO # 0.01 K/mm3 (0.0-2.0); BASO % 0.1 % (0.0-3.0); EOS # 0.1 (0.0-0.7); EOS % 0.8 % (1.5-5.0); GRAN # 7.11 (1.4-6.5); GRAN % 68.3 % (50.0-68.0); HEMATOCRIT 24.6 % (42.0-52.0); LYMPH # 2.5 (1.2-3.4); LYMPH % 24.4 % (22.0-35.0); MEAN CORPUSCULAR HEMOGLOBIN 30.9 pg (25.0-35.0); MEAN CORPUSCULAR HGB CONC 33.3 g/dl (31.0-37.0); MEAN PLATELET VOLUME 11.4 fl (7.0-11.0); MONO # 0.7 (0.1-0.6); MONO % 6.4 % (1.0-6.0); WHITE BLOOD COUNT 10.4 10^3/ul (4.5-11.0)
[2016-10-26 14:24] LABS: MEAN CELL VOLUME 92.8 fl (80.0-105.0)
--- NOTE | 2016-10-26 15:01 | CP.PCM.PN ---
<Justo Torres - Last Filed: 10/26/16 15:12> Subjective - Date & Time of Evaluation Date of Evaluation: 10/26/16 Time of Evaluation: 09:01 - Subjective Subjective: The patient was seen and examined at bedside. Per nursing there were no acute events overnight. The patient remains with a trach placement and unresponsive to stimuli. The remainder of ROS unobtainable due to current clinical condition. Objective - Vital Signs/Intake and Output Vital Signs (last 24 hours): Temp Pulse Resp BP Pulse Ox 99.0 F 98 H 36 H 104/68 96 10/26/16 13:00 10/26/16 13:00 10/26/16 10:51 10/26/16 13:00 10/26/16 13:00 Intake and Output: 10/26/16 10/26/16 06:59 18:59 Intake Total 325 5 Balance 325 5 - Medications Medications: Current Medications Amikacin Sulfate (Amikacin 500 Mg/2ml Inj) 500 mg IH [id number] [facility] Last Admin: 10/26/16 07:53 Dose: 500 mg Artificial Tears (Artificial Tears Opht Oint) 1 gm OU Q6 [facility] Last Admin: 10/26/16 12:51 Dose: 1 applic Folic Acid (Folic Acid) 1 mg PO DAILY [facility] Last Admin: 10/26/16 10:41 Dose: Not Given Gentamicin Sulfate 270 mg/ (Sodium Chloride) 106.75 mls @ 106.75 mls/hr IVPB ONCE [facility] Last Admin: 10/17/16 11:42 Dose: 106.75 mls/hr Dextrose (Dextrose 5% In Water 1000 Ml) 1,000 mls @ 100 mls/hr IV .Q10H [facility] Last Admin: 10/26/16 12:50 Dose: 100 mls/hr Lactulose (Enulose) 20 gm PO BID [facility] Last Admin: 10/26/16 10:41 Dose: Not Given Metoclopramide HCl (Reglan) 10 mg IVP Q6H PRN PRN Reason: Other Last Admin: 10/25/16 00:41 Dose: 10 mg Midodrine (Proamatine) 5 mg PO TID [facility] Last Admin: 10/26/16 13:26 Dose: Not Given Morphine Sulfate (Morphine) 2 mg IVP Q4H PRN PRN Reason: Pain, severe (8-10) Pantoprazole Sodium (Protonix Inj) 40 mg IVP Q12 [facility] Last Admin: 10/26/16 10:12 Dose: 40 mg Thiamine HCl (Vitamin B1 Tab) 100 mg PO DAILY [facility] Last Admin: 10/26/16 10:41 Dose: Not Given Vitamin B Complex/Vit C/Folic Acid (Nephro-Mariann) 1 tab PO 0800 [facility] Last Admin: 10/26/16 08:16 Dose: Not Given - Labs Labs: 10/26/16 14:05 10/26/16 10:00 PT 20.1 Seconds (9.9-11.8) H 10/26/16 10:00 INR 1.86 (0.93-1.08) H 10/26/16 10:00 APTT 34.2 Seconds (23.7-30.8) H 10/26/16 10:00 - Head Exam Head Exam: ATRAUMATIC, NORMAL INSPECTION, NORMOCEPHALIC - Eye Exam Pupil Exam: PERRL - ENT Exam ENT Exam: Mucous Membranes Moist - Neck Exam Additional comments: Trach placement - Respiratory Exam Respiratory Exam: Clear to Ausculation Bilateral, NORMAL BREATHING PATTERN - Cardiovascular Exam Cardiovascular Exam: REGULAR RHYTHM, +S1, +S2 - GI/Abdominal Exam GI & Abdominal Exam: Firm, Normal Bowel Sounds - Rectal Exam Additional comments: Rectal tube placement. - Back Exam Additional comments: Unstageable back ulcers - Neurological Exam Neurological Exam: Altered - Skin Skin Exam: Mottled Assessment and Plan - Assessment and Plan (Free Text) Assessment: 56 year old male with an initial presentation of AMS in the setting of persistent hypokalemia and alcohol withdrawal, which resolved. Patient was then intubated after he was found to be in hypercapnic respiratory failure and subsequently became hemodynamically unstable requiring dual vasopressor support. His presentation is consistent with distributive shock likely from either acute decompensated chronic liver failure or sepsis from C. Diff colitis , with multiorgan dysfunction syndrome including renal failure, encephalopathy and respiratory failure. Patient is no longer requiring vasopressin or levophed for hemodynamic support but is on midodrine. Patient is currently unresponsive to verbal or tactile stimuli off of sedation. Patient is has been transitioned from PRVC to PS/CPAP Plan: Pulmonary: Hypercapnic Respiratory Failure -Patient intubated on 10/05. Today: FiO2= 40%, RR=30, PEEP+5, and Tidal Volume + 400 ml, O2 saturation+97% -ABG: pCO2+39, pO2+52, pH+7.3 -s/p Trach Day 7. -Patient hypotension slightly (111/68) and remains off pressors. -Cardio following -Repeat CXR shows no active pulmonary disease. -Continue to monitor vital signs. -Continue Duonebs 3ml IHQ6 HRESP for wheezing symptoms. -Expected to go to [facility] pending. Renal: Acute renal failure most likely secondary to glomerulonephritis -BUN 89 and Creatinine is 1.9. Showing signs of improvement in SHAMAR. -Urine total protein-897 and Urine Microalbumin >950. -Nephrology consult note appreciated. -No acute indications for HD at this time. Urine output remains steady. -Nephrology consult note appreciate- Hematology: Thrombocytopenia -Plt count now 87 s/p 4 units of Platelets transfused. Continue to monitor plt count and consider another transfusion if patient drops below 20. -Patient currently has no active bleeds. Monitor for bleeding. EtOh Withdrawal -Continue Ativan 2mg IVP Q2H PRN for alcohol withdrawal symptoms. -Continue Thiamine, Folic acid and MV supplementation Ascites -s/p ascitic fluid removed on 10/05. -culture growth negative after 6 days. -MELDS score of 20: 19.3% Mortality risk in 3 month time period. GI: Hepatic encephalopathy -Continue Rifaxamin, Lactulose -Rectal tube in place and currently draining 2800 ml. -Scheduled to have gastrostomy tube placed today by Dr. Ronquillo. Procedure on hold until hemoglobin is more stable. Anemia -Stool occult blood positive on 10/05. -Hgb is 8.2 and Hct is 24.6 Patient is s/p 7 units leukocyte reduced PRBC's. Continue to monitor H/H levels with serial CBC's. Consider Transfusion if Hgb falls below 7. Sepsis/Fungemia -Grew Kamille Albicans -Sputum culture grew Pseudomonas [place]. -Continue Micafungin (renal dosing) -Patient continues to spike fevers. Started Zyvox and Doxycycline. Will continue to monitor closely. -Continue Merrem, Vancomycin C Diff infection. -Continue Vancomycin -Repeat stool sample negative. Continue to monitor closely. Hypokalemia - Will continue to replete as needed. Will continue to monitor electrolyte levels with serial cmp's. GI ppx -Continue Protonix DVT ppx. <Jacob Enriquez MD - Last Filed: 10/27/16 14:48> Objective - Vital Signs/Intake and Output Vital Signs (last 24 hours): Temp Pulse Resp BP Pulse Ox 99 F 99 H 23 91/61 L 100 10/27/16 08:00 10/27/16 08:00 10/27/16 06:00 10/27/16 08:00 10/27/16 08:00 Intake and Output: 10/27/16 10/27/16 06:59 18:59 Intake Total 1250 Output Total 500 Balance 750 - Medications Medications: Current Medications Amikacin Sulfate (Amikacin 500 Mg/2ml Inj) 500 mg IH [id number] [facility] Last Admin: 10/27/16 07:35 Dose: 500 mg Artificial Tears (Artificial Tears Opht Oint) 1 gm OU Q6 [facility] Last Admin: 10/27/16 05:30 Dose: 1 applic Folic Acid (Folic Acid) 1 mg PO DAILY [facility] Last Admin: 10/27/16 09:42 Dose: Not Given Dextrose (Dextrose 5% In Water 1000 Ml) 1,000 mls @ 100 mls/hr IV .Q10H [facility] Last Admin: 10/27/16 05:32 Dose: 100 mls/hr Metoclopramide HCl (Reglan) 10 mg IVP Q6H PRN PRN Reason: Other Last Admin: 10/25/16 00:41 Dose: 10 mg Midodrine (Proamatine) 5 mg PO TID [facility] Last Admin: 10/27/16 09:42 Dose: Not Given Morphine Sulfate (Morphine) 2 mg IVP Q4H PRN PRN Reason: Pain, severe (8-10) Last Admin: 10/26/16 17:23 Dose: 2 mg Pantoprazole Sodium (Protonix Inj) 40 mg IVP Q12 [facility] Last Admin: 10/27/16 09:42 Dose: 40 mg Thiamine HCl (Vitamin B1 Tab) 100 mg PO DAILY [facility] Last Admin: 10/27/16 09:43 Dose: Not Given Vitamin B Complex/Vit C/Folic Acid (Nephro-Mariann) 1 tab PO 0800 [facility] Last Admin: 10/27/16 08:09 Dose: Not Given - Labs Labs: 10/27/16 05:30 10/27/16 05:30 PT 16.6 Seconds (9.9-11.8) H 10/27/16 05:30 INR 1.54 (0.93-1.08) H 10/27/16 05:30 APTT 35.0 Seconds (23.7-30.8) H 10/27/16 05:30 Attending/Attestation - Attestation I have personally seen and examined this patient.: Yes I have fully participated in the care of the patient.: Yes I have reviewed all pertinent clinical information, including history, physical exam and plan: Yes Notes (Text): 10/27/16 14:42 Patient was seen and examined with medical secretary. 56 year old male with PMH of alcohol abuse, cirrhosis who was admitted with change of mental status, was found to be have alcohol intoxication ,sepsis,, Rhabdomylosis, acute renal failure and was intubated later on. He was also found to have oliguric acute renal failure ,anemia ,thrombocytopenia, SBP,HCAP,~ cdiff~and fungemia, Patient is SP tracheotomy .He is requiring ventilatory support, Hemoglobin is dropping requiring intermittent PRBC transfusion.No Plan for EGD as per GI. Patient is awaiting for PEG tube placement. mental status is mildly improved but still very poor.He is awaiting for PEG tube placement. Renal functions are stable, Nephrology is following. Sepsis on antibiotics as per ID. Patient is DNR/ DNI. Prognosis is guard
--- NOTE | 2016-10-26 16:49 | CP.PCM.PN ---
Subjective - Date & Time of Evaluation Date of Evaluation: 10/26/16 Time of Evaluation: 12:00 - Subjective Subjective: SURGERY NOTE FOR DR. JOHNSON 56M seen and examined at bedside. Patient in bed intubated, and does not follow commands. Objective - Vital Signs/Intake and Output Vital Signs (last 24 hours): Temp Pulse Resp BP Pulse Ox 99.0 F 98 H 36 H 104/68 96 10/26/16 13:00 10/26/16 13:00 10/26/16 10:51 10/26/16 13:00 10/26/16 13:00 Intake and Output: 10/26/16 10/26/16 06:59 18:59 Intake Total 325 5 Balance 325 5 - Medications Medications: Current Medications Amikacin Sulfate (Amikacin 500 Mg/2ml Inj) 500 mg IH [id number] [facility] Last Admin: 10/26/16 07:53 Dose: 500 mg Artificial Tears (Artificial Tears Opht Oint) 1 gm OU Q6 [facility] Last Admin: 10/26/16 12:51 Dose: 1 applic Folic Acid (Folic Acid) 1 mg PO DAILY [facility] Last Admin: 10/26/16 10:41 Dose: Not Given Gentamicin Sulfate 270 mg/ (Sodium Chloride) 106.75 mls @ 106.75 mls/hr IVPB ONCE [facility] Last Admin: 10/17/16 11:42 Dose: 106.75 mls/hr Dextrose (Dextrose 5% In Water 1000 Ml) 1,000 mls @ 100 mls/hr IV .Q10H [facility] Last Admin: 10/26/16 12:50 Dose: 100 mls/hr Lactulose (Enulose) 20 gm PO BID [facility] Last Admin: 10/26/16 10:41 Dose: Not Given Metoclopramide HCl (Reglan) 10 mg IVP Q6H PRN PRN Reason: Other Last Admin: 10/25/16 00:41 Dose: 10 mg Midodrine (Proamatine) 5 mg PO TID [facility] Last Admin: 10/26/16 13:26 Dose: Not Given Morphine Sulfate (Morphine) 2 mg IVP Q4H PRN PRN Reason: Pain, severe (8-10) Pantoprazole Sodium (Protonix Inj) 40 mg IVP Q12 [facility] Last Admin: 10/26/16 10:12 Dose: 40 mg Thiamine HCl (Vitamin B1 Tab) 100 mg PO DAILY [facility] Last Admin: 10/26/16 10:41 Dose: Not Given Vitamin B Complex/Vit C/Folic Acid (Nephro-Mariann) 1 tab PO 0800 [facility] Last Admin: 10/26/16 08:16 Dose: Not Given - Labs Labs: 10/26/16 14:05 10/26/16 10:00 PT 20.1 Seconds (9.9-11.8) H 10/26/16 10:00 INR 1.86 (0.93-1.08) H 10/26/16 10:00 APTT 34.2 Seconds (23.7-30.8) H 10/26/16 10:00 - Constitutional Appears: Unkempt, Other (intubated) - Respiratory Exam Respiratory Exam: Clear to Ausculation Bilateral, NORMAL BREATHING PATTERN - Cardiovascular Exam Cardiovascular Exam: REGULAR RHYTHM, +S1, +S2 - GI/Abdominal Exam GI & Abdominal Exam: Soft. absent: Distended, Firm, Rigid, Tenderness Additional comments: paracentesis site mildly draining - Neurological Exam Neurological Exam: Awake. absent: Alert Additional comments: intubated - Skin Skin Exam: Dry, Intact, Warm Assessment and Plan - Assessment and Plan (Free Text) Assessment: 56 yo M w/ESRD and encephalopathy s/p trachostomy by ENT Surgery consulted for Gastrostomy tube Plan: - Gastrostomy tube planned for tomorrow - optimized patient medically - Vitamin K for INR Discussed with Dr. Yg Amos, PGY2
[2016-10-26] MEDS ORDERED: Phytonadione 10 MG in Sodium Chloride 0.9% 50 ML IV ONE (18:57)
--- NOTE | 2016-10-26 21:12 | CP.PCM.PN ---
Subjective - Date & Time of Evaluation Date of Evaluation: 10/26/16 Time of Evaluation: 13:00 - Subjective Subjective: Patient putting out less stool; Objective - Vital Signs/Intake and Output Vital Signs (last 24 hours): Temp Pulse Resp BP Pulse Ox 98.6 F 96 H 36 H 99/65 L 97 10/26/16 18:00 10/26/16 18:00 10/26/16 10:51 10/26/16 18:00 10/26/16 18:00 Intake and Output: 10/26/16 10/27/16 18:59 06:59 Intake Total 1080 Balance 1080 - Medications Medications: Current Medications Amikacin Sulfate (Amikacin 500 Mg/2ml Inj) 500 mg IH [id number] [facility] Last Admin: 10/26/16 20:52 Dose: 500 mg Artificial Tears (Artificial Tears Opht Oint) 1 gm OU Q6 [facility] Last Admin: 10/26/16 18:36 Dose: 1 applic Folic Acid (Folic Acid) 1 mg PO DAILY [facility] Last Admin: 10/26/16 10:41 Dose: Not Given Gentamicin Sulfate 270 mg/ (Sodium Chloride) 106.75 mls @ 106.75 mls/hr IVPB ONCE [facility] Last Admin: 10/17/16 11:42 Dose: 106.75 mls/hr Dextrose (Dextrose 5% In Water 1000 Ml) 1,000 mls @ 100 mls/hr IV .Q10H [facility] Last Admin: 10/26/16 17:44 Dose: 100 mls/hr Lactulose (Enulose) 20 gm PO BID [facility] Last Admin: 10/26/16 17:19 Dose: Not Given Metoclopramide HCl (Reglan) 10 mg IVP Q6H PRN PRN Reason: Other Last Admin: 10/25/16 00:41 Dose: 10 mg Midodrine (Proamatine) 5 mg PO TID [facility] Last Admin: 10/26/16 17:20 Dose: Not Given Morphine Sulfate (Morphine) 2 mg IVP Q4H PRN PRN Reason: Pain, severe (8-10) Last Admin: 10/26/16 17:23 Dose: 2 mg Pantoprazole Sodium (Protonix Inj) 40 mg IVP Q12 [facility] Last Admin: 10/26/16 10:12 Dose: 40 mg Thiamine HCl (Vitamin B1 Tab) 100 mg PO DAILY [facility] Last Admin: 10/26/16 10:41 Dose: Not Given Vitamin B Complex/Vit C/Folic Acid (Nephro-Mariann) 1 tab PO 0800 [facility] Last Admin: 10/26/16 08:16 Dose: Not Given - Labs Labs: 10/26/16 14:05 10/26/16 10:00 PT 20.1 Seconds (9.9-11.8) H 10/26/16 10:00 INR 1.86 (0.93-1.08) H 10/26/16 10:00 APTT 34.2 Seconds (23.7-30.8) H 10/26/16 10:00 - Constitutional Appears: No Acute Distress - Head Exam Head Exam: NORMAL INSPECTION - ENT Exam ENT Exam: Mucous Membranes Moist - Respiratory Exam Respiratory Exam: Clear to Ausculation Bilateral Additional comments: tachypneic; - Cardiovascular Exam Cardiovascular Exam: RRR, +S1, +S2 - GI/Abdominal Exam GI & Abdominal Exam: Distended, Soft. absent: Tenderness - Exam Additional comments: terrell in place - Extremities Exam Additional comments: moderately edematous legs; - Neurological Exam Neurological Exam: Awake Additional comments: not following commands; - Skin Skin Exam: Warm. absent: Cyanosis Assessment and Plan (1) Acute renal failure Assessment & Plan: Multifactorial; non-oliguric and overall improved though not yet at baseline; volume replenishment on hold to try and assist respiratory status; may need to restart if creatinine starts increasing; Status: Acute (2) Acute hypercapnic respiratory failure Assessment & Plan: Still tachypneic; agree with paracentesis to try and help resp status; Status: Acute (3) Hypokalemia Status: Acute (4) Hypocalcemia Status: Resolved (5) SIRS (systemic inflammatory response syndrome) Assessment & Plan: Sepsis controlled; off all systemic abx; monitor; avoid nephrotoxic agents; Status: Acute (6) Hypernatremia Assessment & Plan: Improved; changing IVF to D5W at 100 cc/hr; Status: Acute
[2016-10-27] MEDS: Mineral Oil/Petrolatum Opht Oint(3.5 gm) OU SCH ×5 (00:16→18:24)
[2016-10-27 06:02] LABS: ARTERIAL BLOOD GAS HCO3 18.4 mmol/L (21-28); ARTERIAL BLOOD GAS O2 CAPACITY 10.9 mL/dl (16-24); ARTERIAL BLOOD GAS O2 CONTENT 10.5 ML/dl (15-23); ARTERIAL BLOOD GAS PH 7.25 (7.35-7.45); ARTERIAL BLOOD HGB O2 SAT 92.7 % (95.0-98.0); CARBOXYHEMOGLOBIN 2.8 % (0.5-1.5); HHB 3.8 % (0-5); METHEMOGLOBIN 0.7 % (0.0-3.0)
[2016-10-27 06:59] LABS: BASO # 0.02 K/mm3 (0.0-2.0); BASO % 0.2 % (0.0-3.0); EOS # 0.1 (0.0-0.7); EOS % 0.8 % (1.5-5.0); GRAN # 9.07 (1.4-6.5); GRAN % 71.7 % (50.0-68.0); LYMPH % 23.7 % (22.0-35.0); MEAN CELL VOLUME 94.3 fl (80.0-105.0); MEAN CORPUSCULAR HEMOGLOBIN 30.7 pg (25.0-35.0); MEAN CORPUSCULAR HGB CONC 32.6 g/dl (31.0-37.0); MEAN PLATELET VOLUME 12.2 fl (7.0-11.0); MONO # 0.5 (0.1-0.6); MONO % 3.6 % (1.0-6.0); RED CELL DISTRIBUTION WIDTH 17.7 % (11.5-14.5); WHITE BLOOD COUNT 12.6 10^3/ul (4.5-11.0)
[2016-10-27 07:09] LABS: INR 1.54 (0.93-1.08)
[2016-10-27] MEDS: AMIKACIN 500 MG/2 ML IH SCH ×2 (07:35→20:35)
[2016-10-27 07:39] LABS: ALB/GLOB RATIO 0.6 (1.1-1.8); BILIRUBIN,TOTAL 1.8 mg/dL (0.2-1.3); CALCIUM 7.1 mg/dL (8.4-10.5); MAGNESIUM 1.7 mg/dL (1.7-2.2); PHOSPHOROUS 7.1 mg/dL (2.5-4.5); POTASSIUM 3.8 mmol/L (3.6-5.0); TOTAL PROTEIN 4.3 g/dL (5.8-8.3)
[2016-10-27] MEDS: Multivitamin Vitamin B Complex (Nephro-Vite) Tab PO SCH (08:09)
--- NOTE | 2016-10-27 08:59 | RAD ---
[facility]2016 FINDINGS: The tracheostomy tube remains stable position. LUNGS: There is improving airspace disease in the right lower lobe. There are prominent radicular nodular opacities in both lungs. PLEURA: No significant pleural effusion identified, no pneumothorax apparent. CARDIOVASCULAR: Normal. OSSEOUS STRUCTURES: No significant abnormalities. VISUALIZED UPPER ABDOMEN: Normal. OTHER FINDINGS: None. IMPRESSION: Improving right lower lobe pneumonia. Prominent reticular nodular opacities in the lungs which could represent interstitial edema or interstitial pneumonitis.
--- NOTE | 2016-10-27 10:05 | CP.PCM.PN ---
Subjective - Date & Time of Evaluation Date of Evaluation: 10/27/16 Time of Evaluation: 09:40 - Subjective Subjective: Continues to be on the ventilator, no fevers overnight, no diarrhea currently. Objective - Vital Signs/Intake and Output Vital Signs (last 24 hours): Temp Pulse Resp BP Pulse Ox 99.5 F 105 H 23 91/60 L 100 10/27/16 04:00 10/27/16 06:00 10/27/16 06:00 10/27/16 06:00 10/27/16 06:00 Intake and Output: 10/26/16 10/27/16 18:59 06:59 Intake Total 1080 1250 Output Total 500 Balance 1080 750 - Medications Medications: Current Medications Amikacin Sulfate (Amikacin 500 Mg/2ml Inj) 500 mg IH [id number] [facility] Last Admin: 10/26/16 20:52 Dose: 500 mg Artificial Tears (Artificial Tears Opht Oint) 1 gm OU Q6 [facility] Last Admin: 10/27/16 05:30 Dose: 1 applic Folic Acid (Folic Acid) 1 mg PO DAILY [facility] Last Admin: 10/26/16 10:41 Dose: Not Given Gentamicin Sulfate 270 mg/ (Sodium Chloride) 106.75 mls @ 106.75 mls/hr IVPB ONCE [facility] Last Admin: 10/17/16 11:42 Dose: 106.75 mls/hr Dextrose (Dextrose 5% In Water 1000 Ml) 1,000 mls @ 100 mls/hr IV .Q10H [facility] Last Admin: 10/27/16 05:32 Dose: 100 mls/hr Lactulose (Enulose) 20 gm PO BID [facility] Last Admin: 10/26/16 17:19 Dose: Not Given Metoclopramide HCl (Reglan) 10 mg IVP Q6H PRN PRN Reason: Other Last Admin: 10/25/16 00:41 Dose: 10 mg Midodrine (Proamatine) 5 mg PO TID [facility] Last Admin: 10/26/16 17:20 Dose: Not Given Morphine Sulfate (Morphine) 2 mg IVP Q4H PRN PRN Reason: Pain, severe (8-10) Last Admin: 10/26/16 17:23 Dose: 2 mg Pantoprazole Sodium (Protonix Inj) 40 mg IVP Q12 [facility] Last Admin: 10/26/16 21:46 Dose: 40 mg Thiamine HCl (Vitamin B1 Tab) 100 mg PO DAILY [facility] Last Admin: 10/26/16 10:41 Dose: Not Given Vitamin B Complex/Vit C/Folic Acid (Nephro-Mariann) 1 tab PO 0800 [facility] Last Admin: 10/26/16 08:16 Dose: Not Given - Labs Labs: 10/26/16 14:05 10/26/16 10:00 PT 20.1 Seconds (9.9-11.8) H 10/26/16 10:00 INR 1.86 (0.93-1.08) H 10/26/16 10:00 APTT 34.2 Seconds (23.7-30.8) H 10/26/16 10:00 - Constitutional Appears: Chronically Ill, Other (on the ventilator) - Head Exam Head Exam: NORMAL INSPECTION - Neck Exam Neck Exam: absent: Meningismus Additional comments: tracheostomy tube in place - Respiratory Exam Respiratory Exam: Decreased Breath Sounds - Cardiovascular Exam Cardiovascular Exam: +S1, +S2 - GI/Abdominal Exam GI & Abdominal Exam: Soft. absent: Tenderness Assessment and Plan - Assessment and Plan (Free Text) Plan: Assessment severe sepsis with ventilator-dependent respiratory failure (now with tracheostomy), respiratory acidosis and acute renal failure probably due to probable right sided and healthcare-associated pneumonia with Pseudomonas, clinically improving S/P C. albicans fungemia S/P C. diff. colitis liver cirrhosis probably from alcohol abuse; S/P paracentesis; initially presented with delerium tremens;chronic alcohol abuse with history of liver cirrhosis and esophageal varices significant smoking history Plan S/P Merrem (11 days for the the Pseudomonas in the sputum); on aerosolized tobramycin (day 8) to complete 7-10 days of therapy; S/P 14 days of PO Vancomycin (day 14) S/P Mycamine, had 16 days of therapy (repeat blood cx on 10/08/2016 are negative - patient had Ophtho evaluation 2 weeks ago and no endophthalmitis was seen) will continue to follow clinically patient continues to be in critical condition and overall prognosis is poor - patient is DNR awaiting PEG tube placement
--- NOTE | 2016-10-27 11:48 | CP.CCUPN ---
<KENDY CERNA - Last Filed: 10/27/16 11:39> CCU Subjective - Physician Review Subjective (Free Text): 10/27/16 11:39 Patient was seen and assessed at bedside. Patient intubated on PRVC and without sedation but is verbally unresponsive. No other acute events noted overnight, per nursing. ROS unobtainable due to clinical condition of patient. CCU Objective - Vital Signs / Intake & Output Vital Signs (Last 4 hours): Vital Signs Temp Pulse BP Pulse Ox 10/27/16 08:00 99.1 F 104 H 91/61 L 100 Intake and Output (Last 8hrs): Intake & Output 10/26/16 10/27/16 10/27/16 22:59 06:59 14:59 Intake Total 1075 1250 Output Total 500 Balance 1075 750 Intake: IV 750 1250 Right Forearm 750 dextrose 5 1200 meds 50 Blood Product 325 Output: Urine 400 Urethral (Vyas) 400 Stool 100 Other: # Bowel Movements 1 - Physical Exam Physical Exam Limitations: Positive for: Clinical Condition Head: Positive for: Atraumatic, Normocephalic Pupils: Positive for: PERRL Extroacular Muscles: Positive for: EOMI Conjunctiva: Positive for: Normal Ears: Positive for: Normal Mouth: Positive for: Moist Mucous Membranes Nose (External): Positive for: Atraumatic Nose (Internal): Positive for: Other Neck: Positive for: Normal Range of Motion, Trachea Midline, Other ( Tracheostomy insertion site without signs of infection). Negative for: Lymphadenopathy Respiratory/Chest: Positive for: Clear to Auscultation, Good Air Exchange, Tachypneic, Other (Mechanical ventilation). Negative for: Respiratory Distress , Accessory Muscle Use, Wheezes, Decreased Breath Sounds, Retracting, Rhonchi Cardiovascular: Positive for: Regular Rate and Rhythm, Normal S1, S2. Negative for: Murmurs Abdomen: Positive for: Normal Bowel Sounds, Other (Paracentesis site with sutures, no signs of infection, dressing clean, dry and intact; rectal tube draining melena). Negative for: Tenderness, Distention, Peritoneal Signs Genitourinary Male: Positive for: Other (Vyas in place, no signs of infection) . Negative for: Testicle Swelling Back: Positive for: Normal Inspection Upper Extremity: Positive for: Edema (1+ pitting edema B/L UE). Negative for: Normal Inspection (Multiple areas of ecchymoses), Cyanosis Lower Extremity: Positive for: Edema (1+ Pitting edema B/L up to thighs). Negative for: Normal Inspection Neurological: Positive for: Other (Gag and corneal reflex intact; ability to track motion with eyes intact). Negative for: GCS=15 (GCS of 3T), CN II-XII Intact, Speech Normal Skin: Positive for: Warm, Other (Area of erythema on the presacral area of the lower back measuring approximately 2-3cm with no skin ulceration; currently unstageable ). Negative for: Rashes, Normal Color (multiple ecchymoses over UE B/L) Psychiatric: Negative for: Alert (arousable to tactile stimuli), Oriented x 3, Normal Insight, Normal Concentration - Medications Active Medications: Active Medications Generic Name Dose Route Start Last Admin Trade Name Freq PRN Reason Stop Dose Admin Amikacin Sulfate 500 mg 10/19/16 20:00 10/27/16 07:35 Amikacin 500 Mg/2ml Inj IH 500 mg [id number] TONI Administration Artificial Tears 1 gm 10/10/16 18:00 10/27/16 05:30 Artificial Tears Opht Oint OU 1 applic Q6 TONI Administration Folic Acid 1 mg 10/03/16 10:00 10/27/16 09:42 Folic Acid PO Not Given DAILY TONI Dextrose 1,000 mls @ 100 mls/hr 10/26/16 11:42 10/27/16 05:32 Dextrose 5% In Water 1000 Ml IV 100 mls/hr .Q10H TONI Administration Metoclopramide HCl 10 mg 10/09/16 16:56 10/25/16 00:41 Reglan IVP 10 mg Q6H PRN Administration Other Midodrine 5 mg 10/09/16 10:00 10/27/16 09:42 Proamatine PO Not Given TID TONI Morphine Sulfate 2 mg 10/22/16 00:52 10/26/16 17:23 Morphine IVP 2 mg Q4H PRN Administration Pain, severe (8-10) Pantoprazole Sodium 40 mg 10/24/16 10:00 10/27/16 09:42 Protonix Inj IVP 40 mg Q12 TONI Administration Thiamine HCl 100 mg 10/03/16 10:00 10/27/16 09:43 Vitamin B1 Tab PO Not Given DAILY [facility] Vitamin B Complex/Vit C/Folic Acid 1 tab 10/03/16 08:00 10/27/16 08:09 Nephro-Mariann PO Not Given 0800 [facility] - Patient Studies Lab Studies: Lab Studies 10/27/16 10/27/16 10/27/16 Range/Units 05:30 05:30 05:30 WBC 12.6 H D (4.5-11.0) 10^3/ul RBC 2.44 L (3.5-6.1) 10^6/uL Hgb 7.5 L (14.0-18.0) g/dL Hct 23.0 L (42.0-52.0) % MCV 94.3 (80.0-105.0) fl MCH 30.7 (25.0-35.0) pg MCHC 32.6 (31.0-37.0) g/dl RDW 17.7 H (11.5-14.5) % Plt Count 103 L (120.0-450.0) 10^3/uL MPV 12.2 H (7.0-11.0) fl Gran % 71.7 H (50.0-68.0) % Lymph % (Auto) 23.7 (22.0-35.0) % Toombs % (Auto) 3.6 (1.0-6.0) % Eos % (Auto) 0.8 L (1.5-5.0) % Baso % (Auto) 0.2 (0.0-3.0) % Gran # 9.07 H (1.4-6.5) Lymph # 3.0 (1.2-3.4) Toombs # 0.5 (0.1-0.6) Eos # 0.1 (0.0-0.7) Baso # 0.02 (0.0-2.0) K/mm3 PT 16.6 H (9.9-11.8) Seconds INR 1.54 H (0.93-1.08) APTT 35.0 H (23.7-30.8) Seconds pCO2 (35-45) mm/Hg pO2 (80-100) mm/Hg HCO3 (21-28) mmol/L ABG pH (7.35-7.45) ABG Total CO2 (22-28) mmol.L ABG O2 Saturation (95-98) % ABG O2 Content (15-23) ML/dl ABG Base Excess (-2.0-3.0) mmol/L ABG Hemoglobin (11.7-17.4) g/dL ABG Carboxyhemoglobin (0.5-1.5) % POC ABG HHb (Measured) (0-5) % ABG Methemoglobin (0.0-3.0) % ABG O2 Capacity (16-24) mL/dl Hgb O2 Saturation (95.0-98.0) % FiO2 % Sodium 146 (132-148) mmol/L Potassium 3.8 (3.6-5.0) mmol/L Chloride 116 H (98-107) mmol/L Carbon Dioxide 19 L (21-33) mmol/L Anion Gap 15 (10-20) BUN 89 H (7-21) mg/dL Creatinine 2.0 H (0.5-1.4) mg/dL Est GFR ( Amer) 42 Est GFR (Non-Af Amer) 35 Random Glucose 94 (70-110) mg/dL Calcium 7.1 L (8.4-10.5) mg/dL Phosphorus 7.1 H (2.5-4.5) mg/dL Magnesium 1.7 (1.7-2.2) mg/dL Total Bilirubin 1.8 H (0.2-1.3) mg/dL AST 89 H (17-59) U/L ALT 73 H (7-56) U/L Alkaline Phosphatase 66 (38-126) U/L Total Protein 4.3 L (5.8-8.3) g/dL Albumin 1.6 L (3.0-4.8) g/dL Globulin 2.7 gm/dL Albumin/Globulin Ratio 0.6 L (1.1-1.8) 10/27/16 10/26/16 Range/Units 05:20 14:05 WBC 10.4 D (4.5-11.0) 10^3/ul RBC 2.65 L (3.5-6.1) 10^6/uL Hgb 8.2 L (14.0-18.0) g/dL Hct 24.6 L (42.0-52.0) % MCV 92.8 D (80.0-105.0) fl MCH 30.9 (25.0-35.0) pg MCHC 33.3 (31.0-37.0) g/dl RDW 17.0 H (11.5-14.5) % Plt Count 87 L (120.0-450.0) 10^3/uL MPV 11.4 H (7.0-11.0) fl Gran % 68.3 H (50.0-68.0) % Lymph % (Auto) 24.4 (22.0-35.0) % Toombs % (Auto) 6.4 H (1.0-6.0) % Eos % (Auto) 0.8 L (1.5-5.0) % Baso % (Auto) 0.1 (0.0-3.0) % Gran # 7.11 H (1.4-6.5) Lymph # 2.5 (1.2-3.4) Toombs # 0.7 H (0.1-0.6) Eos # 0.1 (0.0-0.7) Baso # 0.01 (0.0-2.0) K/mm3 PT (9.9-11.8) Seconds INR (0.93-1.08) APTT (23.7-30.8) Seconds pCO2 42 (35-45) mm/Hg pO2 64.0 L (80-100) mm/Hg HCO3 18.4 L (21-28) mmol/L ABG pH 7.25 L (7.35-7.45) ABG Total CO2 19.7 L (22-28) mmol.L ABG O2 Saturation 96.1 (95-98) % ABG O2 Content 10.5 L (15-23) ML/dl ABG Base Excess -8.2 L (-2.0-3.0) mmol/L ABG Hemoglobin 8.0 L (11.7-17.4) g/dL ABG Carboxyhemoglobin 2.8 H (0.5-1.5) % POC ABG HHb (Measured) 3.8 (0-5) % ABG Methemoglobin 0.7 (0.0-3.0) % ABG O2 Capacity 10.9 L (16-24) mL/dl Hgb O2 Saturation 92.7 L (95.0-98.0) % FiO2 40.0 % Sodium (132-148) mmol/L Potassium (3.6-5.0) mmol/L Chloride (98-107) mmol/L Carbon Dioxide (21-33) mmol/L Anion Gap (10-20) BUN (7-21) mg/dL Creatinine (0.5-1.4) mg/dL Est GFR ( Amer) Est GFR (Non-Af Amer) Random Glucose (70-110) mg/dL Calcium (8.4-10.5) mg/dL Phosphorus (2.5-4.5) mg/dL Magnesium (1.7-2.2) mg/dL Total Bilirubin (0.2-1.3) mg/dL AST (17-59) U/L ALT (7-56) U/L Alkaline Phosphatase (38-126) U/L Total Protein (5.8-8.3) g/dL Albumin (3.0-4.8) g/dL Globulin gm/dL Albumin/Globulin Ratio (1.1-1.8) Laboratory Results - last 24 hr 10/26/16 10/27/16 10/27/16 14:05 05:20 05:30 WBC 10.4 D 12.6 H D RBC 2.65 L 2.44 L Hgb 8.2 L 7.5 L Hct 24.6 L 23.0 L MCV 92.8 D 94.3 MCH 30.9 30.7 MCHC 33.3 32.6 RDW 17.0 H 17.7 H Plt Count 87 L 103 L MPV 11.4 H 12.2 H Gran % 68.3 H 71.7 H Lymph % (Auto) 24.4 23.7 Toombs % (Auto) 6.4 H 3.6 Eos % (Auto) 0.8 L 0.8 L Baso % (Auto) 0.1 0.2 Gran # 7.11 H 9.07 H Lymph # 2.5 3.0 Toombs # 0.7 H 0.5 Eos # 0.1 0.1 Baso # 0.01 0.02 PT INR APTT pCO2 42 pO2 64.0 L HCO3 18.4 L ABG pH 7.25 L ABG Total CO2 19.7 L ABG O2 Saturation 96.1 ABG O2 Content 10.5 L ABG Base Excess -8.2 L ABG Hemoglobin 8.0 L ABG Carboxyhemoglobin 2.8 H POC ABG HHb (Measured) 3.8 ABG Methemoglobin 0.7 ABG O2 Capacity 10.9 L Hgb O2 Saturation 92.7 L FiO2 40.0 Sodium Potassium Chloride Carbon Dioxide Anion Gap BUN Creatinine Est GFR ( Amer) Est GFR (Non-Af Amer) Random Glucose Calcium Phosphorus Magnesium Total Bilirubin AST ALT Alkaline Phosphatase Total Protein Albumin Globulin Albumin/Globulin Ratio 10/27/16 10/27/16 05:30 05:30 WBC RBC Hgb Hct MCV MCH MCHC RDW Plt Count MPV Gran % Lymph % (Auto) Toombs % (Auto) Eos % (Auto) Baso % (Auto) Gran # Lymph # Toombs # Eos # Baso # PT 16.6 H INR 1.54 H APTT 35.0 H pCO2 pO2 HCO3 ABG pH ABG Total CO2 ABG O2 Saturation ABG O2 Content ABG Base Excess ABG Hemoglobin ABG Carboxyhemoglobin POC ABG HHb (Measured) ABG Methemoglobin ABG O2 Capacity Hgb O2 Saturation FiO2 Sodium 146 Potassium 3.8 Chloride 116 H Carbon Dioxide 19 L Anion Gap 15 BUN 89 H Creatinine 2.0 H Est GFR ( Amer) 42 Est GFR (Non-Af Amer) 35 Random Glucose 94 Calcium 7.1 L Phosphorus 7.1 H Magnesium 1.7 Total Bilirubin 1.8 H AST 89 H ALT 73 H Alkaline Phosphatase 66 Total Protein 4.3 L Albumin 1.6 L Globulin 2.7 Albumin/Globulin Ratio 0.6 L Fingerstick Blood Sugar Results: 105 Review of Systems - Review of Systems Review of Systems: Please refer to [facility] Critical Care Progress Note - Ventilator Checklist Head of Bed 30 Degrees: Yes Daily Assessment of Readiness to Wean: Yes PUD Prophalyxis: Yes DVT Prophylaxis: Yes - Extremities/Vascular Does the Patient have a Central Venous Catheter?: No Does the Patient need a Central Venous Catheter?: No Does the Patient have a Vyas Catheter?: Yes Does the Patient need a Vyas Catheter?: Yes - Prophylaxis GI Prophylaxis GI: PPI - Prophylaxis DVT Prophylaxis DVT: SCDs Assessment/Plan - Assessment and Plan (Free Text) Assessment: 56 year old male with an initial presentation of AMS in the setting of persistent hypokalemia and alcohol withdrawal, which resolved. Patient was then intubated after he was found to be in hypercapnic respiratory failure and subsequently became hemodynamically unstable requiring dual vasopressor support. His presentation is consistent with distributive shock likely from either acute decompensated chronic liver failure or sepsis from C. Diff colitis , with multiorgan dysfunction syndrome including renal failure, encephalopathy and respiratory failure. Patient is no longer requiring vasopressin or levophed for hemodynamic support but is on midodrine. Patient is currently unresponsive to verbal or tactile stimuli off of sedation. Patient currently on PRVC and is s /p tracheostomy placement on 10/19. Patient was scheduled for open G-Tube placement on 10/24 but this was cancelled as patient has melena/BRB in his rectal drainage with new scheduled date to be 10/27. Plan: Neuro: -Current GCS of 6 ([id number]) -Currently intubated with no sedation -Disontinue Lactulose 20mg BID -Continue Thiamine, Folic Acid and MV supplementation Pulm: -Chest X-Ray on 10/27 notable for improving right lower lobe pneumonia and prominent reticular nodular opacities in the lungs which could represent interstitial edema or interstitial pneumonitis -Continue mechanical ventilation via tracheostomy with daily weaning trials of PS/CPAP as tolerated -Continue Amikacin 500mg IH [id number] -ABG showing mild metabolic acidosis with a pH of 7.42, a pO2 of 64 and a pCO2 of 42 -Continue protective lung ventilation strategy and VAP prevention strategies, including maintaining HOB greater that 35 degrees, oral hygiene, chlorhexidine in the posterior pharynx and GI/DVT prophylaxis -Continue Duonebs 3ml IH [id number] -ENT consulted, all recommendations appreciated Cardio: -Continue midodrine 5mg PO TID -Cardiology consulted, appreciate all recommendations GI: -Abdominal Ultrasound showed known cirrhosis and known ascites, will assess for need for paracentesis with consent obtained should it be indicated -Gastrostomy tube placement scheduled for 10/24 cancelled due to melena/blood in his rectal drainage and rescheduled for 10/27 -Bleeding likely due to erosion and patient not a good candidate for EGD at this time, per GI -Paracentesis to be done with open G-Tube placement and should assist with failure of vent weaning -Discontinue Lactulose 20mg BID -Continue Reglan 10mg IVP Q6H PRN -Rectal tube in place and currently draining 100cc of melena over the past 24 hours -GI and Surgery consulted, all recommendations appreciated Renal: -BUN/Creatinine at 89/2.0, representing improvement of acute kidney injury -Continue D5W at 100mls/hr -Vyas catheter in place and draining 400cc over the past 24 hours -Will continue to replete calcium, magnesium, phosphorus and potassium as needed -Will continue to monitor with serial CMP's with magnesium and phosphorous levels -Nephrology consulted, all recommendations appreciated Endocrine: -Will maintain euglycemia with blood glucose between 140 and 180 Heme/Onc: -Extremity Ultrasound negative for DVT's -H/H decreased to 7.5/23.0 with melena in rectal drainage -Platelets stable at 103 -Will continue to monitor with serial CBC's MSK: -Area of erythema on presacral area measuring approximately 2cm with no skin breakage -Continue to turn patient Q2H to prevent ulceration and air mattress and adequate skin hydration -PT/OT evaluation and treatment ID: -Currently on Amikacin 500mg IH [id number] (Day 8); Gentamycin at 106.75mls/hr IVPB (currently held until trough is 1-2mcg) -Currently afebrile, normotensive, with no leukocytosis and mild tachycardia -Most recent blood and urine cultures negative for growth -Continue active patient cooling with cooling blankets for temperatures over 100.4 -No endophthalmitis noted on ophtho exam -ID and Ophtho consulted, all recommendations appreciated Lines: -Continue all peripheral lines GI Prophylaxis: Protonix DVT Prophylaxis: SCD's Disposition: Scheduled for PEG tube placement today (10/27). Poor prognosis overall and will need mcc care in a specialized facility. Patient seen and case discussed in detail with attending, Dr. Hartmann. - Date & Time Date: 10/27/16 Time: 11:39 <Mary Kate GALLEGOS,[facility] [place] [facility] - Last Filed: 10/27/16 14:56> CCU Objective - Vital Signs / Intake & Output Vital Signs (Last 4 hours): Vital Signs Temp Pulse BP Pulse Ox 10/27/16 14:33 99.3 F 113 H 89/54 L 98 10/27/16 14:00 99.3 F 98 H 87/55 L 99 10/27/16 13:00 99.5 F 101 H 98/63 L 98 10/27/16 12:00 99.3 F 96 H 90/55 L 99 10/27/16 11:00 99.3 F 97 H 93/57 L 99 Intake and Output (Last 8hrs): Intake & Output 10/26/16 10/27/16 10/27/16 22:59 06:59 14:59 Intake Total 1075 1250 Output Total 500 Balance 1075 750 Intake: IV 750 1250 Right Forearm 750 dextrose 5 1200 meds 50 Blood Product 325 Output: Urine 400 Urethral (Vyas) 400 Stool 100 Other: # Bowel Movements 1 - Medications Active Medications: Active Medications Generic Name Dose Route Start Last Admin Trade Name Freq PRN Reason Stop Dose Admin Amikacin Sulfate 500 mg 10/19/16 20:00 10/27/16 07:35 Amikacin 500 Mg/2ml Inj IH 500 mg [id number] TONI Administration Artificial Tears 1 gm 10/10/16 18:00 10/27/16 05:30 Artificial Tears Opht Oint OU 1 applic Q6 TONI Administration Folic Acid 1 mg 10/03/16 10:00 10/27/16 09:42 Folic Acid PO Not Given DAILY [facility] Dextrose 1,000 mls @ 100 mls/hr 10/26/16 11:42 10/27/16 05:32 Dextrose 5% In Water 1000 Ml IV 100 mls/hr .Q10H TONI Administration Metoclopramide HCl 10 mg 10/09/16 16:56 10/25/16 00:41 Reglan IVP 10 mg Q6H PRN Administration Other Midodrine 5 mg 10/09/16 10:00 10/27/16 14:46 Proamatine PO Not Given TID TONI Morphine Sulfate 2 mg 10/22/16 00:52 10/26/16 17:23 Morphine IVP 2 mg Q4H PRN Administration Pain, severe (8-10) Pantoprazole Sodium 40 mg 10/24/16 10:00 10/27/16 09:42 Protonix Inj IVP 40 mg Q12 TONI Administration Thiamine HCl 100 mg 10/03/16 10:00 10/27/16 09:43 Vitamin B1 Tab PO Not Given DAILY [facility] Vitamin B Complex/Vit C/Folic Acid 1 tab 10/03/16 08:00 10/27/16 08:09 Nephro-Mariann PO Not Given 0800 TONI - Patient Studies Lab Studies: Lab Studies 10/27/16 10/27/16 10/27/16 Range/Units 05:30 05:30 05:30 WBC 12.6 H D (4.5-11.0) 10^3/ul RBC 2.44 L (3.5-6.1) 10^6/uL Hgb 7.5 L (14.0-18.0) g/dL Hct 23.0 L (42.0-52.0) % MCV 94.3 (80.0-105.0) fl MCH 30.7 (25.0-35.0) pg MCHC 32.6 (31.0-37.0) g/dl RDW 17.7 H (11.5-14.5) % Plt Count 103 L (120.0-450.0) 10^3/uL MPV 12.2 H (7.0-11.0) fl Gran % 71.7 H (50.0-68.0) % Lymph % (Auto) 23.7 (22.0-35.0) % Toombs % (Auto) 3.6 (1.0-6.0) % Eos % (Auto) 0.8 L (1.5-5.0) % Baso % (Auto) 0.2 (0.0-3.0) % Gran # 9.07 H (1.4-6.5) Lymph # 3.0 (1.2-3.4) Toombs # 0.5 (0.1-0.6) Eos # 0.1 (0.0-0.7) Baso # 0.02 (0.0-2.0) K/mm3 PT 16.6 H (9.9-11.8) Seconds INR 1.54 H (0.93-1.08) APTT 35.0 H (23.7-30.8) Seconds pCO2 (35-45) mm/Hg pO2 (80-100) mm/Hg HCO3 (21-28) mmol/L ABG pH (7.35-7.45) ABG Total CO2 (22-28) mmol.L ABG O2 Saturation (95-98) % ABG O2 Content (15-23) ML/dl ABG Base Excess (-2.0-3.0) mmol/L ABG Hemoglobin (11.7-17.4) g/dL ABG Carboxyhemoglobin (0.5-1.5) % POC ABG HHb (Measured) (0-5) % ABG Methemoglobin (0.0-3.0) % ABG O2 Capacity (16-24) mL/dl Hgb O2 Saturation (95.0-98.0) % FiO2 % Sodium 146 (132-148) mmol/L Potassium 3.8 (3.6-5.0) mmol/L Chloride 116 H (98-107) mmol/L Carbon Dioxide 19 L (21-33) mmol/L Anion Gap 15 (10-20) BUN 89 H (7-21) mg/dL Creatinine 2.0 H (0.5-1.4) mg/dL Est GFR ( Amer) 42 Est GFR (Non-Af Amer) 35 Random Glucose 94 (70-110) mg/dL Calcium 7.1 L (8.4-10.5) mg/dL Phosphorus 7.1 H (2.5-4.5) mg/dL Magnesium 1.7 (1.7-2.2) mg/dL Total Bilirubin 1.8 H (0.2-1.3) mg/dL AST 89 H (17-59) U/L ALT 73 H (7-56) U/L Alkaline Phosphatase 66 (38-126) U/L Total Protein 4.3 L (5.8-8.3) g/dL Albumin 1.6 L (3.0-4.8) g/dL Globulin 2.7 gm/dL Albumin/Globulin Ratio 0.6 L (1.1-1.8) Blood Type Antibody Screen Antibody Identification Crossmatch BBK History Checked 10/27/16 10/25/16 Range/Units 05:20 22:31 WBC (4.5-11.0) 10^3/ul RBC (3.5-6.1) 10^6/uL Hgb (14.0-18.0) g/dL Hct (42.0-52.0) % MCV (80.0-105.0) fl MCH (25.0-35.0) pg MCHC (31.0-37.0) g/dl RDW (11.5-14.5) % Plt Count (120.0-450.0) 10^3/uL MPV (7.0-11.0) fl Gran % (50.0-68.0) % Lymph % (Auto) (22.0-35.0) % Toombs % (Auto) (1.0-6.0) % Eos % (Auto) (1.5-5.0) % Baso % (Auto) (0.0-3.0) % Gran # (1.4-6.5) Lymph # (1.2-3.4) Toombs # (0.1-0.6) Eos # (0.0-0.7) Baso # (0.0-2.0) K/mm3 PT (9.9-11.8) Seconds INR (0.93-1.08) APTT (23.7-30.8) Seconds pCO2 42 (35-45) mm/Hg pO2 64.0 L (80-100) mm/Hg HCO3 18.4 L (21-28) mmol/L ABG pH 7.25 L (7.35-7.45) ABG Total CO2 19.7 L (22-28) mmol.L ABG O2 Saturation 96.1 (95-98) % ABG O2 Content 10.5 L (15-23) ML/dl ABG Base Excess -8.2 L (-2.0-3.0) mmol/L ABG Hemoglobin 8.0 L (11.7-17.4) g/dL ABG Carboxyhemoglobin 2.8 H (0.5-1.5) % POC ABG HHb (Measured) 3.8 (0-5) % ABG Methemoglobin 0.7 (0.0-3.0) % ABG O2 Capacity 10.9 L (16-24) mL/dl Hgb O2 Saturation 92.7 L (95.0-98.0) % FiO2 40.0 % Sodium (132-148) mmol/L Potassium (3.6-5.0) mmol/L Chloride (98-107) mmol/L Carbon Dioxide (21-33) mmol/L Anion Gap (10-20) BUN (7-21) mg/dL Creatinine (0.5-1.4) mg/dL Est GFR ( Amer) Est GFR (Non-Af Amer) Random Glucose (70-110) mg/dL Calcium (8.4-10.5) mg/dL Phosphorus (2.5-4.5) mg/dL Magnesium (1.7-2.2) mg/dL Total Bilirubin (0.2-1.3) mg/dL AST (17-59) U/L ALT (7-56) U/L Alkaline Phosphatase (38-126) U/L Total Protein (5.8-8.3) g/dL Albumin (3.0-4.8) g/dL Globulin gm/dL Albumin/Globulin Ratio (1.1-1.8) Blood Type O POSITIVE Antibody Screen Negative Antibody Identification TNP Crossmatch See Detail BBK History Checked Patient has bt Laboratory Results - last 24 hr 10/25/16 10/27/16 10/27/16 22:31 05:20 05:30 WBC 12.6 H D RBC 2.44 L Hgb 7.5 L Hct 23.0 L MCV 94.3 MCH 30.7 MCHC 32.6 RDW 17.7 H Plt Count 103 L MPV 12.2 H Gran % 71.7 H Lymph % (Auto) 23.7 Toombs % (Auto) 3.6 Eos % (Auto) 0.8 L Baso % (Auto) 0.2 Gran # 9.07 H Lymph # 3.0 Toombs # 0.5 Eos # 0.1 Baso # 0.02 PT INR APTT pCO2 42 pO2 64.0 L HCO3 18.4 L ABG pH 7.25 L ABG Total CO2 19.7 L ABG O2 Saturation 96.1 ABG O2 Content 10.5 L ABG Base Excess -8.2 L ABG Hemoglobin 8.0 L ABG Carboxyhemoglobin 2.8 H POC ABG HHb (Measured) 3.8 ABG Methemoglobin 0.7 ABG O2 Capacity 10.9 L Hgb O2 Saturation 92.7 L FiO2 40.0 Sodium Potassium Chloride Carbon Dioxide Anion Gap BUN Creatinine Est GFR ( Amer) Est GFR (Non-Af Amer) Random Glucose Calcium Phosphorus Magnesium Total Bilirubin AST ALT Alkaline Phosphatase Total Protein Albumin Globulin Albumin/Globulin Ratio Blood Type O POSITIVE Antibody Screen Negative Antibody Identification TNP Crossmatch See Detail BBK History Checked Patient has bt 10/27/16 10/27/16 05:30 05:30 WBC RBC Hgb Hct MCV MCH MCHC RDW Plt Count MPV Gran % Lymph % (Auto) Toombs % (Auto) Eos % (Auto) Baso % (Auto) Gran # Lymph # Toombs # Eos # Baso # PT 16.6 H INR 1.54 H APTT 35.0 H pCO2 pO2 HCO3 ABG pH ABG Total CO2 ABG O2 Saturation ABG O2 Content ABG Base Excess ABG Hemoglobin ABG Carboxyhemoglobin POC ABG HHb (Measured) ABG Methemoglobin ABG O2 Capacity Hgb O2 Saturation FiO2 Sodium 146 Potassium 3.8 Chloride 116 H Carbon Dioxide 19 L Anion Gap 15 BUN 89 H Creatinine 2.0 H Est GFR ( Amer) 42 Est GFR (Non-Af Amer) 35 Random Glucose 94 Calcium 7.1 L Phosphorus 7.1 H Magnesium 1.7 Total Bilirubin 1.8 H AST 89 H ALT 73 H Alkaline Phosphatase 66 Total Protein 4.3 L Albumin 1.6 L Globulin 2.7 Albumin/Globulin Ratio 0.6 L Blood Type Antibody Screen Antibody Identification Crossmatch BBK History Checked Attending/Attestation - Attestation I have personally seen and examined this patient.: Yes I have fully participated in the care of the patient.: Yes I have reviewed all pertinent clinical information: Yes Notes (Text): 10/27/16 14:55 56 y/o M w/ Prolonged sepsis state Prolonged VDRF s/p Trach G tube scheduled, no plans yet. Increased fluid overload with ascites. Melena, with HGB drop. Gi following. No plans for EGD. Transfuse for hgb< 7. Keep INR< 2 and plateletes > 20 K Poor prognosis overall. Prolong abx use. cc time 55 min
--- NOTE | 2016-10-27 11:59 | CP.PCM.PN ---
Subjective - Date & Time of Evaluation Date of Evaluation: 10/27/16 Time of Evaluation: 08:00 - Subjective Subjective: Surgery progress note for Dr. Ronquillo 56M seen and examined at bedside. Patient is trach'd on ventilation. Patient does not follow commands. Continues to have dark stool. Objective - Vital Signs/Intake and Output Vital Signs (last 24 hours): Temp Pulse Resp BP Pulse Ox 99 F 99 H 23 91/61 L 100 10/27/16 08:00 10/27/16 08:00 10/27/16 06:00 10/27/16 08:00 10/27/16 08:00 Intake and Output: 10/27/16 10/27/16 06:59 18:59 Intake Total 1250 Output Total 500 Balance 750 - Medications Medications: Current Medications Amikacin Sulfate (Amikacin 500 Mg/2ml Inj) 500 mg IH [id number] [facility] Last Admin: 10/27/16 07:35 Dose: 500 mg Artificial Tears (Artificial Tears Opht Oint) 1 gm OU Q6 [facility] Last Admin: 10/27/16 05:30 Dose: 1 applic Folic Acid (Folic Acid) 1 mg PO DAILY [facility] Last Admin: 10/27/16 09:42 Dose: Not Given Dextrose (Dextrose 5% In Water 1000 Ml) 1,000 mls @ 100 mls/hr IV .Q10H [facility] Last Admin: 10/27/16 05:32 Dose: 100 mls/hr Metoclopramide HCl (Reglan) 10 mg IVP Q6H PRN PRN Reason: Other Last Admin: 10/25/16 00:41 Dose: 10 mg Midodrine (Proamatine) 5 mg PO TID [facility] Last Admin: 10/27/16 09:42 Dose: Not Given Morphine Sulfate (Morphine) 2 mg IVP Q4H PRN PRN Reason: Pain, severe (8-10) Last Admin: 10/26/16 17:23 Dose: 2 mg Pantoprazole Sodium (Protonix Inj) 40 mg IVP Q12 [facility] Last Admin: 10/27/16 09:42 Dose: 40 mg Thiamine HCl (Vitamin B1 Tab) 100 mg PO DAILY [facility] Last Admin: 10/27/16 09:43 Dose: Not Given Vitamin B Complex/Vit C/Folic Acid (Nephro-Mariann) 1 tab PO 0800 [facility] Last Admin: 10/27/16 08:09 Dose: Not Given - Labs Labs: 10/27/16 05:30 10/27/16 05:30 PT 16.6 Seconds (9.9-11.8) H 10/27/16 05:30 INR 1.54 (0.93-1.08) H 10/27/16 05:30 APTT 35.0 Seconds (23.7-30.8) H 10/27/16 05:30 - Constitutional Appears: Chronically Ill, Other (intubated) - Respiratory Exam Respiratory Exam: Clear to Ausculation Bilateral, NORMAL BREATHING PATTERN - Cardiovascular Exam Cardiovascular Exam: REGULAR RHYTHM, +S1, +S2 - GI/Abdominal Exam GI & Abdominal Exam: Soft. absent: Firm, Guarding, Rigid, Tenderness Additional comments: site of paracentesis has dressing, mild drainage - Neurological Exam Neurological Exam: Awake Assessment and Plan - Assessment and Plan (Free Text) Assessment: 56 yo M w/ESRD and encephalopathy s/p tracheostomy by ENT POD6 Surgery consulted for Gastrostomy tube - Gastrostomy on hold until medically optimized - monitor INR (recommend vitamin K), - pRBC transfusions as needed to optimize HgB level Further recs discuss with Dr. Yg Amos, PGY2 Plan: - Gastrostomy on hold until medically optimized - monitor INR (recommend vitamin K), - pRBC transfusions as needed to optimize HgB level Further recs discuss with Dr. Yg Amos, PGY2
[2016-10-27] MEDS ORDERED: Bupivacaine 0.5% Inj(30mL) ONE (14:37)
[2016-10-27] MEDS ORDERED: Lidocaine 1% Inj (20ml) ONE (14:37)
--- NOTE | 2016-10-27 15:14 | CP.PCM.PN ---
<Justo Torres - Last Filed: 10/27/16 19:51> Subjective - Date & Time of Evaluation Date of Evaluation: 10/27/16 Time of Evaluation: 15:11 - Subjective Subjective: Patient was seen and examined at bedside. The patient continues to be unresponsive to stimuli and doesn't follow command. The patient is expected to have the G-tube placement today by the surgery team. ROS was unobtainable due to his clinical condition. Objective - Vital Signs/Intake and Output Vital Signs (last 24 hours): Temp Pulse Resp BP Pulse Ox 99.3 F 113 H 23 89/54 L 98 10/27/16 14:33 10/27/16 14:33 10/27/16 06:00 10/27/16 14:33 10/27/16 14:33 Intake and Output: 10/27/16 10/27/16 06:59 18:59 Intake Total 1250 Output Total 500 Balance 750 - Medications Medications: Current Medications Amikacin Sulfate (Amikacin 500 Mg/2ml Inj) 500 mg IH [id number] [facility] Last Admin: 10/27/16 07:35 Dose: 500 mg Artificial Tears (Artificial Tears Opht Oint) 1 gm OU Q6 [facility] Last Admin: 10/27/16 05:30 Dose: 1 applic Folic Acid (Folic Acid) 1 mg PO DAILY [facility] Last Admin: 10/27/16 09:42 Dose: Not Given Dextrose (Dextrose 5% In Water 1000 Ml) 1,000 mls @ 100 mls/hr IV .Q10H [facility] Last Admin: 10/27/16 05:32 Dose: 100 mls/hr Metoclopramide HCl (Reglan) 10 mg IVP Q6H PRN PRN Reason: Other Last Admin: 10/25/16 00:41 Dose: 10 mg Midodrine (Proamatine) 5 mg PO TID [facility] Last Admin: 10/27/16 14:46 Dose: Not Given Morphine Sulfate (Morphine) 2 mg IVP Q4H PRN PRN Reason: Pain, severe (8-10) Last Admin: 10/26/16 17:23 Dose: 2 mg Pantoprazole Sodium (Protonix Inj) 40 mg IVP Q12 [facility] Last Admin: 10/27/16 09:42 Dose: 40 mg Thiamine HCl (Vitamin B1 Tab) 100 mg PO DAILY [facility] Last Admin: 10/27/16 09:43 Dose: Not Given Vitamin B Complex/Vit C/Folic Acid (Nephro-Mariann) 1 tab PO 0800 [facility] Last Admin: 10/27/16 08:09 Dose: Not Given - Labs Labs: 10/27/16 05:30 10/27/16 05:30 PT 16.6 Seconds (9.9-11.8) H 10/27/16 05:30 INR 1.54 (0.93-1.08) H 10/27/16 05:30 APTT 35.0 Seconds (23.7-30.8) H 10/27/16 05:30 - Head Exam Head Exam: ATRAUMATIC, NORMAL INSPECTION, NORMOCEPHALIC - Eye Exam Eye Exam: PERRL. absent: Periorbital swelling Pupil Exam: NORMAL ACCOMODATION - ENT Exam ENT Exam: Mucous Membranes Moist Additional comments: Trach placed s/p Day 6. - Respiratory Exam Respiratory Exam: Clear to Ausculation Bilateral. absent: Accessory Muscle Use , Wheezes - Cardiovascular Exam Cardiovascular Exam: REGULAR RHYTHM, RRR, +S1, +S2. absent: Gallop, Rubs - GI/Abdominal Exam GI & Abdominal Exam: Soft, Normal Bowel Sounds - Extremities Exam Additional comments: Upper extremity swelling. - Back Exam Additional comments: Unstageable bed ulcers per nursing note. - Neurological Exam Neurological Exam: Altered - Skin Skin Exam: Mottled Assessment and Plan - Assessment and Plan (Free Text) Assessment: 56 year old male with an initial presentation of AMS in the setting of persistent hypokalemia and alcohol withdrawal, which resolved. Patient was then intubated after he was found to be in hypercapnic respiratory failure and subsequently became hemodynamically unstable requiring dual vasopressor support. His presentation is consistent with distributive shock likely from either acute decompensated chronic liver failure or sepsis from C. Diff colitis , with multiorgan dysfunction syndrome including renal failure, encephalopathy and respiratory failure. Patient is no longer requiring vasopressin or levophed for hemodynamic support but is on midodrine. Patient is currently unresponsive to verbal or tactile stimuli off of sedation. Patient is has been transitioned from PRVC to PS/CPAP Plan: Pulmonary: Hypercapnic Respiratory Failure -Patient intubated on 10/05. Today: FiO2= 40%, RR=30, PEEP+5, and Tidal Volume + 400 ml, O2 saturation+97% -ABG: pCO2+39, pO2+52, pH+7.3 -s/p Trach Day 8. -Patient hypotension slightly (91/63) and remains off pressors. -Cardio following -Repeat CXR shows no active pulmonary disease. -Continue to monitor vital signs. -Continue Duonebs 3ml IHQ6 HRESP for wheezing symptoms. -Expected to go to surgery today for G-tube placement. Renal: Acute renal failure most likely secondary to glomerulonephritis -BUN 89 and Creatinine is 2. Showing signs of improvement in SHAMAR. -Urine total protein-897 and Urine Microalbumin >950. -Nephrology consult note appreciated. -No acute indications for HD at this time. Urine output remains steady. -Nephrology consult note appreciate- Hematology: Thrombocytopenia -Plt count now 103 s/p 4 units of Platelets transfused. Continue to monitor plt count and consider another transfusion if patient drops below 20. -Patient currently has no active bleeds. Monitor for bleeding. EtOh Withdrawal -Continue Ativan 2mg IVP Q2H PRN for alcohol withdrawal symptoms. -Continue Thiamine, Folic acid and MV supplementation Ascites -s/p ascitic fluid removed on 10/05. -culture growth negative after 6 days. -MELDS score of 20: 19.3% Mortality risk in 3 month time period. GI: Hepatic encephalopathy -Continue Lactulose 20 mg BID TONI. -Rectal tube in place and currently draining 2800 ml. -Scheduled to have gastrostomy tube placed today by Dr. Ronquillo. Procedure on hold until hemoglobin is more stable. Anemia -Stool occult blood positive on 10/05. -Hgb is 7.5 and Hct is 23 Patient is s/p 7 units leukocyte reduced PRBC's. Continue to monitor H/H levels with serial CBC's. Consider Transfusion if Hgb falls below 7. Sepsis/Fungemia -Grew Kamille Albicans -Sputum culture grew Pseudomonas Aeurginosa. -Continue Micafungin (renal dosing) - Will continue to monitor closely. -Merrem, Vancomycin completed. Will monitor closely for signs of infection. C Diff infection. -Vancomycin completed. -Repeat stool sample negative. Continue to monitor closely. Hypokalemia - Will continue to replete as needed. Will continue to monitor electrolyte levels with serial cmp's. GI ppx -Continue Protonix DVT ppx. <Zoe GALLEGOS,Jacob - Last Filed: 10/28/16 11:31> Objective - Vital Signs/Intake and Output Vital Signs (last 24 hours): Temp Pulse Resp BP Pulse Ox 98.0 F 83 34 H 93/54 L 78 L 10/28/16 08:00 10/28/16 09:00 10/28/16 08:00 10/28/16 09:00 10/28/16 09:00 Intake and Output: 10/28/16 10/28/16 06:59 18:59 Intake Total 1625 Output Total 800 Balance 825 - Medications Medications: Current Medications Artificial Tears (Artificial Tears Opht Oint) 1 gm OU Q6 [facility] Last Admin: 10/28/16 05:42 Dose: 1 applic Folic Acid (Folic Acid) 1 mg PO DAILY [facility] Last Admin: 10/27/16 09:42 Dose: Not Given Dextrose (Dextrose 5% In Water 1000 Ml) 1,000 mls @ 100 mls/hr IV .Q10H [facility] Last Admin: 10/28/16 05:43 Dose: 100 mls/hr Metoclopramide HCl (Reglan) 10 mg IVP Q6H PRN PRN Reason: Other Last Admin: 10/25/16 00:41 Dose: 10 mg Midodrine (Proamatine) 5 mg PO TID [facility] Last Admin: 10/28/16 10:15 Dose: 5 mg Morphine Sulfate (Morphine) 2 mg IVP Q4H PRN PRN Reason: Pain, severe (8-10) Last Admin: 10/26/16 17:23 Dose: 2 mg Pantoprazole Sodium (Protonix Inj) 40 mg IVP Q12 [facility] Last Admin: 10/28/16 10:16 Dose: 40 mg Thiamine HCl (Vitamin B1 Tab) 100 mg PO DAILY [facility] Last Admin: 10/28/16 10:15 Dose: 100 mg Vitamin B Complex/Vit C/Folic Acid (Nephro-Mariann) 1 tab PO 0800 [facility] Last Admin: 10/28/16 10:16 Dose: 1 tab - Labs Labs: 10/27/16 15:14 10/27/16 05:30 PT 16.6 Seconds (9.9-11.8) H 10/27/16 05:30 INR 1.54 (0.93-1.08) H 10/27/16 05:30 APTT 35.0 Seconds (23.7-30.8) H 10/27/16 05:30 Attending/Attestation - Attestation I have personally seen and examined this patient.: Yes I have fully participated in the care of the patient.: Yes I have reviewed all pertinent clinical information, including history, physical exam and plan: Yes Notes (Text): 10/28/16 11:30 Patient was seen and examined with medical center director. 56 year old male with PMH of alcohol abuse, cirrhosis who was admitted with change of mental status, was found to be have alcohol intoxication ,sepsis,, Rhabdomylosis, acute renal failure and was intubated later on. He was also found to have oliguric acute renal failure ,anemia ,thrombocytopenia, SBP,HCAP,~ cdiff~and fungemia, Patient is SP tracheotomy .He is requiring ventilatory support, Hemoglobin is dropping requiring intermittent PRBC transfusion.No Plan for EGD as per GI.Transfuse to keep hemoglobin > 7. Patient is awaiting for PEG tube placement.Plan for posible PEG tube on sunday. Renal functions are stable, Nephrology is following. Patient is afebrile, antibiotics has been discontinued Patient is DNR/ DNI. Prognosis is guard 10/28/16 11:31
[2016-10-27 15:17] LABS: BASO # 0.02 K/mm3 (0.0-2.0); BASO % 0.2 % (0.0-3.0); EOS # 0.1 (0.0-0.7); EOS % 0.7 % (1.5-5.0); GRAN # 7.75 (1.4-6.5); GRAN % 65.1 % (50.0-68.0); LYMPH # 3.2 (1.2-3.4); LYMPH % 26.6 % (22.0-35.0); MEAN CELL VOLUME 93.8 fl (80.0-105.0); MEAN CORPUSCULAR HEMOGLOBIN 30.8 pg (25.0-35.0); MEAN CORPUSCULAR HGB CONC 32.8 g/dl (31.0-37.0); MEAN PLATELET VOLUME 10.6 fl (7.0-11.0); MONO # 0.9 (0.1-0.6); MONO % 7.4 % (1.0-6.0); RED CELL DISTRIBUTION WIDTH 17.4 % (11.5-14.5); WHITE BLOOD COUNT 11.9 10^3/ul (4.5-11.0)
[2016-10-27 15:23] LABS: HEMATOCRIT 19.8 % (42.0-52.0)
--- NOTE | 2016-10-27 20:08 | PN ---
SUBJECTIVE: The patient was seen on rounds this morning with a plan to do a feeding gastrostomy. Now that the hemoglobin now is 7.5, the issue is that the patient has bright red blood in a rectal tube. Pro-time is elevated as before at 16.2, but high of 20 yesterday. The patient was canceled after discussion with anesthesia, who considered the operative risk too high. He was scheduled again, plan for Sunday, that is negotiable. Adrian Ronquillo MD
--- NOTE | 2016-10-27 21:18 | CP.PCM.PN ---
<Kristian Delgado - Last Filed: 10/27/16 21:14> Subjective - Date & Time of Evaluation Date of Evaluation: 10/27/16 Time of Evaluation: 21:14 - Subjective Subjective: PGY-[address] Mcnulty's Nephrology Service: Pt seen and examined at bedside in CCU. Pt with trach on MV. Pt unresponsive to sternal rub or verbal stimuli. ROS unavailable at this time due to pt condition. Objective - Vital Signs/Intake and Output Vital Signs (last 24 hours): Temp Pulse Resp BP Pulse Ox 98 F 95 H 28 H 91/62 L 86 L 10/27/16 21:00 10/27/16 21:00 10/27/16 21:00 10/27/16 21:00 10/27/16 20:16 Intake and Output: 10/27/16 10/28/16 18:59 06:59 Intake Total 1225 425 Output Total 2025 Balance -800 425 - Medications Medications: Current Medications Amikacin Sulfate (Amikacin 500 Mg/2ml Inj) 500 mg IH [id number] [facility] Last Admin: 10/27/16 20:35 Dose: 500 mg Artificial Tears (Artificial Tears Opht Oint) 1 gm OU Q6 [facility] Last Admin: 10/27/16 18:24 Dose: 1 applic Folic Acid (Folic Acid) 1 mg PO DAILY [facility] Last Admin: 10/27/16 09:42 Dose: Not Given Dextrose (Dextrose 5% In Water 1000 Ml) 1,000 mls @ 100 mls/hr IV .Q10H [facility] Last Admin: 10/27/16 05:32 Dose: 100 mls/hr Metoclopramide HCl (Reglan) 10 mg IVP Q6H PRN PRN Reason: Other Last Admin: 10/25/16 00:41 Dose: 10 mg Midodrine (Proamatine) 5 mg PO TID [facility] Last Admin: 10/27/16 18:25 Dose: Not Given Morphine Sulfate (Morphine) 2 mg IVP Q4H PRN PRN Reason: Pain, severe (8-10) Last Admin: 10/26/16 17:23 Dose: 2 mg Pantoprazole Sodium (Protonix Inj) 40 mg IVP Q12 [facility] Last Admin: 10/27/16 09:42 Dose: 40 mg Thiamine HCl (Vitamin B1 Tab) 100 mg PO DAILY [facility] Last Admin: 10/27/16 09:43 Dose: Not Given Vitamin B Complex/Vit C/Folic Acid (Nephro-Mariann) 1 tab PO 0800 [facility] Last Admin: 10/27/16 08:09 Dose: Not Given - Labs Labs: 10/27/16 15:14 10/27/16 05:30 PT 16.6 Seconds (9.9-11.8) H 10/27/16 05:30 INR 1.54 (0.93-1.08) H 10/27/16 05:30 APTT 35.0 Seconds (23.7-30.8) H 10/27/16 05:30 - Additional Findings Additional findings: - Constitutional Appears: No Acute Distress - Head Exam Head Exam: NORMAL INSPECTION - ENT Exam ENT Exam: Mucous Membranes Moist - Respiratory Exam Respiratory Exam: Clear to Ausculation Bilateral Additional comments: - Cardiovascular Exam Cardiovascular Exam: RRR, +S1, +S2 - GI/Abdominal Exam GI & Abdominal Exam: Distended, Soft. absent: Tenderness - dark stool noted - Exam Scrotal swelling increased today terrell in place - Extremities Exam Additional comments: moderately edematous legs; - Neurological Exam Neurological Exam: Awake Additional comments: not following commands; - Skin Skin Exam: Warm. absent: Cyanosis Assessment and Plan - Assessment and Plan (Free Text) Plan: (1) Acute renal failure Assessment & Plan: Multifactorial; non-oliguric and overall improved though not yet at baseline; volume replenishment on hold to try and assist respiratory status; may need to restart if creatinine starts increasing; Status: Acute (2) Acute hypercapnic respiratory failure Assessment & Plan: Still tachypneic; agree with paracentesis to try and help resp status; Status: Acute (3) Hypokalemia Stable today 3.8 on AM labs Status: Acute (4) Hypocalcemia Status: Resolved (5) SIRS (systemic inflammatory response syndrome) Assessment & Plan: Sepsis controlled; off all systemic abx; monitor; avoid nephrotoxic agents; Status: Acute (6) Hypernatremia Assessment & Plan: Improved; changing IVF to D5W at 100 cc/hr; Status: Acute <Rusty Mcnulty - Last Filed: 11/09/16 15:37> Objective - Vital Signs/Intake and Output Vital Signs (last 24 hours): Temp Pulse Resp BP Pulse Ox 97.7 F 91 H 35 H 76/40 L 100 10/31/16 16:00 10/31/16 22:00 10/31/16 08:43 10/31/16 22:00 10/31/16 22:00 - Labs Labs: 10/31/16 05:20 10/31/16 05:20 PT 15.5 Seconds (9.9-11.8) H 10/31/16 05:20 INR 1.44 (0.93-1.08) H 10/31/16 05:20 APTT 39.3 Seconds (23.7-30.8) H 10/31/16 05:20 Assessment and Plan (1) Acute renal failure Status: Acute (2) Acute hypercapnic respiratory failure Status: Acute (3) Hypokalemia Status: Acute (4) SIRS (systemic inflammatory response syndrome) Status: Acute (5) Hypernatremia Status: Acute Attending/Attestation - Attestation I have personally seen and examined this patient.: Yes I have fully participated in the care of the patient.: Yes I have reviewed all pertinent clinical information, including history, physical exam and plan: Yes Notes (Text): Patient seen and examined; I agree with the resident's note as above; Patient with SIRS/sepsis, AMS, acute renal faliure that is multifactorial at this point; trying to avoid volume depletion in the setting of ongoing stool losses;
[2016-10-28] MEDS: Mineral Oil/Petrolatum Opht Oint(3.5 gm) OU SCH ×3 (05:42→17:53)
--- NOTE | 2016-10-28 09:56 | PN ---
DATE: 10/28/2016 LOCATION: The patient is seen in room number 128, bed 7. SUBJECTIVE: He is trached on a vent. Overall, no events last night. PHYSICAL EXAMINATION VITAL SIGNS: Temperature is 98, blood pressure is 95/60, respiratory rate on a vent, and mattson rate of 83. HEENT: Unremarkable. NECK: Supple. The tracheostomy site is clean. LUNGS: Decreased breath sounds. HEART: Normal S1 and S2. ABDOMEN: Soft and nontender. LABORATORY DATA: Reveals a white count of 11,900, hemoglobin of 6, and platelets of 82. Chemistry reveals BUN of 89 and creatinine of 2.0. Last procalcitonin was 1.4 on 10/14/2016. Microbiology reveals the stool Clostridium difficile was negative, antigen and toxin from the 10/23/2016 and 10/21/2016, the blood cultures are negative. The urine culture is negative from 10/22/2016 and 10/16/2016 respectively. Review of orders reveals the patient to be on amikacin inhaler. ASSESSMENT AND PLAN: A 56-year-old male with severe sepsis status post ventilatory dependant respiratory failure currently trached on ventilator, now on ventilator status post tracheostomy, respiratory acidosis, acute renal failure due to right-sided healthcare associated pneumonia with pseudomonas status post Mellisa albicans fungemia, status post Pseudomembranous colitis in a patient with liver cirrhosis secondary to alcohol abuse, status post paracentesis and spontaneous bacterial peritonitis and with delirium tremens and esophageal varices and significant smoke history, status post treatment for Merrem, aerosols, amikacin day number 9 and completed p.o. vancomycin status post Mycamine for the Mellisa and was seen by ophthalmology, no endophthalmitis. We will discontinue the amikacin and follow the patient closely off of antibiotics. The patient exist for developing nosocomial infections. Overall prognosis is quite poor for this patient. Should consider palliative care for this patient who has multiple medical complications. We will follow closely. Prognosis is poor. Nehemiah Aguilar MD
--- NOTE | 2016-10-28 10:07 | RAD ---
HISTORY: s/p dobhoff COMPARISON: 10/27/2016 FINDINGS: There is stable position of the tracheostomy tube. Enteric tube terminates in the stomach with LUNGS: There is mild pulmonary venous congestion. There is airspace disease in the right lower lobe and consolidation in the left lower lobe. PLEURA: There is a small left pleural effusion. No pneumothorax. CARDIOVASCULAR: Normal. OSSEOUS STRUCTURES: No significant abnormalities. VISUALIZED UPPER ABDOMEN: Normal. OTHER FINDINGS: None. IMPRESSION: 1. Enteric tube terminates in the stomach. 2. Small left pleural effusion. Left lower lobe pneumonia cannot be excluded. 3. Suspect right basilar atelectasis.
[2016-10-28] MEDS: Multivitamin Vitamin B Complex (Nephro-Vite) Tab PO SCH (10:16)
--- NOTE | 2016-10-28 13:01 | PN ---
DATE: 10/28/2016 ANALYSIS MANAGER NOTE SUBJECTIVE: The patient is unresponsive on the ventilator with an FiO2 of 40%. The patient does have a tracheostomy in place, and he is on no pressors at this time. The patient is DNR/DNI. PHYSICAL EXAMINATION: VITAL SIGNS: His temperature is 98.6, pulse is 86, respirations are 18 and BP is 96/54. SKIN: Warm and dry. HEAD: Atraumatic and normocephalic. EYES: Reactive to light. EAR, NOSE, AND THROAT: Seem to be within normal limits. NECK: Supple. No JVD. No thyroid enlargement. No lymph nodes. Note, the patient does have a tracheostomy in place. HEART: Regular rate and rhythm. Normal S1 and S2. LUNGS: Reveal decreased breath sounds bilaterally with occasional rhonchi. ABDOMEN: Soft, decreased bowel sounds. GENITOURINARY AND RECTAL: Deferred. MUSCULOSKELETAL: No joint deformity. EXTREMITIES: Reveal positive lower extremity edema. NEUROLOGICALLY: The patient is unresponsive on the ventilator. LABORATORY DATA: As far as his laboratories are concerned, his white count is 19.9, hemoglobin is 6.5, hematocrit is 19.8, this is post transfusion and his platelets are 82,000 The patient's sodium is 146, potassium 3.8, chloride 116, CO2 of 19, BUN of 89 with a creatinine of 2.0 and a glucose of 94. IMPRESSION: This patient has respiratory failure requiring ventilator support. The patient does have a gastrointestinal bleed and is being monitored closely at this time. He has tracheostomy in place and is noted to have renal failure, possible sepsis with pneumonia. The patient was initially admitted for ethyl alcohol withdrawal and delirium tremors. PLAN: We will continue to note that the patient is DNR/DNI as per family, so we will continue with ventilator support with an FiO2 of 40% and tracheostomy care. The patient is getting IV fluids. We will follow his hemoglobin and transfuse as needed. GI will evaluate for appropriate therapy for the GI bleed. The patient will continue with antibiotics of amikacin and will continue with Protonix and Reglan. We will monitor closely and follow along with the other solution consultant and treat aggressively. Elver Quintero MD
--- NOTE | 2016-10-28 15:40 | PN ---
NEPHROLOGY FOLLOWUP NOTE DATE: SUBJECTIVE: A 56-year-old male with history of alcohol abuse admitted with SIRS/sepsis, acute renal failure, and nephrology following for the same. The patient continues to have nicholas blood in Flexi-Seal output. The patient is status post trach, still awaiting gastrostomy tube placement. PHYSICAL EXAMINATION: GENERAL: No distress. VITAL SIGNS: This morning; blood pressure 95/56, heart rate 80, respirations 34, temperature 98.0, and O2 sat 99% on 40% FiO2 via mechanical ventilation. HEENT: Moist mucous membranes. RESPIRATORY: Tachypneic, otherwise clear to auscultation bilaterally. No rales. No rhonchi. HEART: S1 and S2 normal. No murmurs. No gallops. No rubs. GASTROINTESTINAL: Abdomen is soft, nontender, and nondistended. GENITOURINARY: Vyas in place. EXTREMITIES: Moderately edematous legs. SKIN: Warm. No cyanosis. NEUROLOGIC: Inconsistently following commands. LABORATORY DATA: (Pending labs from today). Labs from yesterday, CBC; WBC 11.9, hemoglobin 6.5, hematocrit 19.8, and platelets 82. Chemistry panel; sodium 146, potassium 3.8, chloride 116, bicarbonate 19, BUN 89, and creatinine 2.0. Calcium 7.1, phosphorus 7.1, and albumin 1.6. Chest x-ray from today showing mild pulmonary venous congestion. Small left pleural effusion. ASSESSMENT AND PLAN: 1. Acute renal failure, multifactorial secondary to acute tubular necrosis, underlying glomerulonephritis and likely prerenal insult component; serum creatinine at relative plateau since several days; however in light of ongoing stool losses, prerenal component may worsen, therefore we will restart saline containing fluids. We will change IV fluids to half NS at 200 mL per hour. 2. Anemia ongoing, gastrointestinal losses with nicholas blood, transfuse 2 units packed red blood cells yesterday, awaiting repeat levels today. Continue to transfuse p.r.n. 3. Systemic inflammatory response syndrome/sepsis. The patient now off of all antibiotics after being treated for fungemia as well as pneumonia and urinary tract infection. Follow up with infectious disease. Need to dose antibiotics for creatinine clearance less than 40. 4. Hyperphosphatemia in the setting of advanced renal insufficiency. The patient needs to be put on renal feeds, i.e., Nepro. 5. Hypernatremia, overall improved. Continue with fluids as above. 6. Metabolic acidosis, non-gap acidosis in the setting of advanced renal insufficiency. Continue to monitor if worsens can put back on bicarbonate containing fluids. Rusty Mcnulty MD
--- NOTE | 2016-10-28 16:33 | CON ---
DATE: 10/28/2016 REEVALUATION CONSULT HISTORY OF PRESENT ILLNESS: I saw the patient this morning and also discussed the case extensively with the nurses in ICU. This is a 56-year-old male, initially evaluated back on 10/03/2016. The patient is a known alcoholic with cirrhosis and with change in mental status with a clinical course which included hypokalemia, alcohol withdrawal, respiratory failure, shock, sepsis from C. diff, and renal failure. The patient is currently still in ICU on a respirator. He is still on hemodynamic support, on midodrine, but does not require vasopressin or Levophed p.r.n. According to the notes I reviewed in the ED chart, the patient is still unresponsive to verbal or tactile stimuli. I reviewed this case with the house staff the other day. Call was prompted by passage of bright red blood per rectum, and the case was discussed with the house staff. The issue of discontinuing lactulose was raised for several reasons. One significant issue with lactulose is it creates a significant amount of gas in the small and large bowel, and if one is contemplating G-tube placement, this maybe problematic due to bowel dilatation and obscuring the gastric silhouette. The other issue with the use of lactulose associated with diarrhea, it will create a rectal mucosal tear, especially in the presence of rectal tube and possible rectal variceal hypertension. On evaluation in the ICU this morning, reviewed the patient's vital signs, the patient has coarse breath sounds. The abdomen is significantly less distended than initial evaluation several weeks apart. Again, he is currently intubated. I reviewed the patient's laboratory data It appears over the last several days, H and H is down from on 10/25 of 7.7 and 24 to an H and H of 6.5 and 19.8. Chemistry shows renal insufficiency, renal failure, and a BUN and creatinine ratio of 89/2.0. His bilirubin at the current time point is 1.8 with an AST and ALT ratio of 89/73. The patient's platelet count is 82,000. His latest INR is 1.54; however, early in the day on 10/26, the INR was 1.86. ASSESSMENT: This is a 56-year-old white male, known to [employer] consultant, currently intubated, DO NO RESUSCITATE status in place. Case was discussed with the house staff several times. I also reviewed the issue of lactulose and bleeding with the nurses in ICU yesterday as well as this morning. Note that, the patient had a Dobbhoff in place. Also, NG tube, I believe, is pending. Note that passage of a tube or presence of an NG tube or Dobhoff in the presence of either gastric or esophageal varices may be problematic leading to probable surface ulceration, eventually some bleeding. The other issue in this particular case is use of rectal tube and lactulose, which in case of such as this, especially in view of an elevated INR and probable extremely large rectal varices or hemorrhoids, one may experience some bleeding. Note that at least only in the past 24 hours, the bleeding has been bright red; however, there was some dark stool as well. According to the nursing, the patient will be receiving blood products. Note that for portal hypertension prophylaxis, the patient should have his hematocrit in the range significantly less than 30 to avoid variceal bleeding. In some cases such as this where the bleeding issue is difficult to control, one might consider octreotide for a couple of days, which will significantly lower the portal pressure. At this time point, there is no contraindication for octreotide Note that the patient is pending for placement of a G-tube surgically by Dr. Ronquillo. Besides from recommended above, no other significant recommendations in this patient. Amadeo Kaminski DO, PhD [place]
--- NOTE | 2016-10-28 16:52 | CP.PCM.PN ---
Subjective - Date & Time of Evaluation Date of Evaluation: 10/28/16 Time of Evaluation: 16:50 - Subjective Subjective: Surgery: Dr. Ronquillo Pt seen and examined. No acute events overnight. Pt is vented on trach. Awake, does not follow commands. Continues to have dark bloody stool. Objective - Vital Signs/Intake and Output Vital Signs (last 24 hours): Temp Pulse Resp BP Pulse Ox 98.6 F 81 34 H 95/52 L 100 10/28/16 12:00 10/28/16 16:00 10/28/16 08:00 10/28/16 16:00 10/28/16 16:00 Intake and Output: 10/28/16 10/28/16 06:59 18:59 Intake Total 1625 Output Total 800 Balance 825 - Medications Medications: Current Medications Artificial Tears (Artificial Tears Opht Oint) 1 gm OU Q6 [facility] Last Admin: 10/28/16 05:42 Dose: 1 applic Bacitracin (Bacitracin) 0 gm TOP BID TONI Folic Acid (Folic Acid) 1 mg PO DAILY [facility] Last Admin: 10/28/16 10:36 Dose: 1 mg Dextrose (Dextrose 5% In Water 1000 Ml) 1,000 mls @ 100 mls/hr IV .Q10H [facility] Last Admin: 10/28/16 15:25 Dose: 100 mls/hr Metoclopramide HCl (Reglan) 10 mg IVP Q6H PRN PRN Reason: Other Last Admin: 10/25/16 00:41 Dose: 10 mg Midodrine (Proamatine) 5 mg PO TID [facility] Last Admin: 10/28/16 14:40 Dose: 5 mg Morphine Sulfate (Morphine) 2 mg IVP Q4H PRN PRN Reason: Pain, severe (8-10) Last Admin: 10/26/16 17:23 Dose: 2 mg Pantoprazole Sodium (Protonix Inj) 40 mg IVP Q12 [facility] Last Admin: 10/28/16 10:16 Dose: 40 mg Thiamine HCl (Vitamin B1 Tab) 100 mg PO DAILY [facility] Last Admin: 10/28/16 10:15 Dose: 100 mg Vitamin B Complex/Vit C/Folic Acid (Nephro-Marainn) 1 tab PO 0800 [facility] Last Admin: 10/28/16 10:16 Dose: 1 tab - Labs Labs: 10/27/16 15:14 10/27/16 05:30 PT 16.6 Seconds (9.9-11.8) H 10/27/16 05:30 INR 1.54 (0.93-1.08) H 10/27/16 05:30 APTT 35.0 Seconds (23.7-30.8) H 10/27/16 05:30 - Constitutional Appears: No Acute Distress, Chronically Ill - Head Exam Head Exam: ATRAUMATIC, NORMOCEPHALIC - Eye Exam Eye Exam: EOMI - ENT Exam ENT Exam: Mucous Membranes Moist - Respiratory Exam Additional comments: on vent - GI/Abdominal Exam GI & Abdominal Exam: Soft. absent: Distended, Firm, Guarding, Rigid, Tenderness , Rebound - Extremities Exam Extremities Exam: Pedal Edema. absent: Calf Tenderness - Neurological Exam Neurological Exam: Awake. absent: Alert, Oriented x3 Assessment and Plan - Assessment and Plan (Free Text) Assessment: 56M w. MOD likely 2/2 decompensated liver failure, consulted for G-tube placement -Pt DNR -Pt is poor surgical candidate with poor prognosis -will continue to follow, no immediate plans for G-tube -d/w attending Macie PGY3
[2016-10-28] MEDS: Bacitracin Ointment 30 GM TUBE TOP SCH (17:54)
[2016-10-28 18:31] LABS: ALB/GLOB RATIO 0.6 (1.1-1.8); BASO # 0.02 K/mm3 (0.0-2.0); BASO % 0.2 % (0.0-3.0); BILIRUBIN,TOTAL 1.9 mg/dL (0.2-1.3); CALCIUM 6.8 mg/dL (8.4-10.5); EOS # 0.1 (0.0-0.7); EOS % 0.8 % (1.5-5.0); GRAN # 9.14 (1.4-6.5); LYMPH # 3.3 (1.2-3.4); LYMPH % 25.3 % (22.0-35.0); MAGNESIUM 1.5 mg/dL (1.7-2.2); MEAN CELL VOLUME 90.2 fl (80.0-105.0); MEAN CORPUSCULAR HEMOGLOBIN 30.3 pg (25.0-35.0); MEAN CORPUSCULAR HGB CONC 33.6 g/dl (31.0-37.0); MEAN PLATELET VOLUME 12.3 fl (7.0-11.0); MONO # 0.5 (0.1-0.6); MONO % 3.7 % (1.0-6.0); PHOSPHOROUS 6.6 mg/dL (2.5-4.5); POTASSIUM 3.6 mmol/L (3.6-5.0); RED CELL DISTRIBUTION WIDTH 17.4 % (11.5-14.5); TOTAL PROTEIN 4.1 g/dL (5.8-8.3); WHITE BLOOD COUNT 13.1 10^3/ul (4.5-11.0)
[2016-10-28 18:33] LABS: HEMATOCRIT 22.9 % (42.0-52.0)
--- NOTE | 2016-10-28 19:06 | CP.PCM.PN ---
<Justo Torres - Last Filed: 10/28/16 20:33> Subjective - Date & Time of Evaluation Date of Evaluation: 10/28/16 Time of Evaluation: 07:04 - Subjective Subjective: Patient seen and examined at bedside. Per nurse there were no acute events overnight. The patient is s/p 2 units of PRBC's yesterday. The patient remains unresponsive to stimuli and still on trach. ROS unobtainable due to current clinical condition. Objective - Vital Signs/Intake and Output Vital Signs (last 24 hours): Temp Pulse Resp BP Pulse Ox 98.3 F 90 34 H 95/52 L 100 10/28/16 16:00 10/28/16 16:00 10/28/16 08:00 10/28/16 16:00 10/28/16 16:00 - Medications Medications: Current Medications Artificial Tears (Artificial Tears Opht Oint) 1 gm OU Q6 [facility] Last Admin: 10/28/16 17:53 Dose: 1 applic Bacitracin (Bacitracin) 0 gm TOP BID [facility] Last Admin: 10/28/16 17:54 Dose: 1 unit Folic Acid (Folic Acid) 1 mg PO DAILY [facility] Last Admin: 10/28/16 10:36 Dose: 1 mg Dextrose (Dextrose 5% In Water 1000 Ml) 1,000 mls @ 100 mls/hr IV .Q10H [facility] Last Admin: 10/28/16 15:25 Dose: 100 mls/hr Metoclopramide HCl (Reglan) 10 mg IVP Q6H PRN PRN Reason: Other Last Admin: 10/25/16 00:41 Dose: 10 mg Midodrine (Proamatine) 5 mg PO TID [facility] Last Admin: 10/28/16 18:02 Dose: 5 mg Morphine Sulfate (Morphine) 2 mg IVP Q4H PRN PRN Reason: Pain, severe (8-10) Last Admin: 10/26/16 17:23 Dose: 2 mg Pantoprazole Sodium (Protonix Inj) 40 mg IVP Q12 [facility] Last Admin: 10/28/16 10:16 Dose: 40 mg Thiamine HCl (Vitamin B1 Tab) 100 mg PO DAILY [facility] Last Admin: 10/28/16 10:15 Dose: 100 mg Vitamin B Complex/Vit C/Folic Acid (Nephro-Mariann) 1 tab PO 0800 [facility] Last Admin: 10/28/16 10:16 Dose: 1 tab - Labs Labs: 10/28/16 18:10 10/28/16 18:10 PT 16.6 Seconds (9.9-11.8) H 10/27/16 05:30 INR 1.54 (0.93-1.08) H 10/27/16 05:30 APTT 35.0 Seconds (23.7-30.8) H 10/27/16 05:30 - Constitutional Appears: Cachectic - Head Exam Head Exam: ATRAUMATIC, NORMAL INSPECTION, NORMOCEPHALIC - Eye Exam Eye Exam: EOMI, Normal appearance, PERRL Pupil Exam: PERRL. absent: Miosis, NORMAL ACCOMODATION - ENT Exam ENT Exam: Mucous Membranes Moist - Neck Exam Additional comments: Trach placed. - Respiratory Exam Respiratory Exam: Clear to Ausculation Bilateral, NORMAL BREATHING PATTERN - Cardiovascular Exam Cardiovascular Exam: REGULAR RHYTHM, +S1, +S2. absent: Gallop, Rubs - GI/Abdominal Exam GI & Abdominal Exam: Firm, Normal Bowel Sounds - Extremities Exam Extremities Exam: Pedal Edema. absent: Full ROM, Normal Inspection - Back Exam Additional comments: Unstageable bed ulcers. - Neurological Exam Neurological Exam: Altered. absent: Alert, Awake, CN II-XII Intact - Skin Skin Exam: Mottled Assessment and Plan - Assessment and Plan (Free Text) Assessment: 56 year old male with an initial presentation of AMS in the setting of persistent hypokalemia and alcohol withdrawal, which resolved. Patient was then intubated after he was found to be in hypercapnic respiratory failure and subsequently became hemodynamically unstable requiring dual vasopressor support. His presentation is consistent with distributive shock likely from either acute decompensated chronic liver failure or sepsis from C. Diff colitis , with multiorgan dysfunction syndrome including renal failure, encephalopathy and respiratory failure. Patient is no longer requiring vasopressin or levophed for hemodynamic support but is on midodrine. Patient is currently unresponsive to verbal or tactile stimuli off of sedation. Patient is has been transitioned from PRVC to PS/CPAP Plan: Pulmonary: Hypercapnic Respiratory Failure -Patient intubated on 10/05. Today: FiO2= 40%, RR=30, PEEP+5, and Tidal Volume + 400 ml, O2 saturation+97% -ABG: pCO2+39, pO2+52, pH+7.3 -s/p Trach Day 8. -Patient hypotension slightly (91/63) and remains off pressors. -Cardio following -Repeat CXR shows no active pulmonary disease. -Continue to monitor vital signs. -Continue Duonebs 3ml IHQ6 HRESP for wheezing symptoms. -Expected to go to surgery today for G-tube placement. Renal: Acute renal failure most likely secondary to glomerulonephritis -BUN 87 and Creatinine is 2.2. Showing signs of improvement in SHAMAR. -Urine total protein-897 and Urine Microalbumin >950. -Nephrology consult note appreciated. -No acute indications for HD at this time. Urine output remains steady. -Nephrology consult note appreciate- Hematology: Thrombocytopenia -Plt count now 80 s/p 4 units of Platelets transfused. Trending down. Continue to monitor plt count and consider another transfusion if patient drops below 20. -Patient currently has no active bleeds. Monitor for bleeding. EtOh Withdrawal -Continue Ativan 2mg IVP Q2H PRN for alcohol withdrawal symptoms. -Continue Thiamine, Folic acid and MV supplementation Ascites -s/p ascitic fluid removed on 10/05. -culture growth negative after 6 days. -MELDS score of 20: 19.3% Mortality risk in 3 month time period. GI: Hepatic encephalopathy -Continue Lactulose 20 mg BID TONI. -Rectal tube in place and currently draining 2800 ml. -Scheduled to have gastrostomy tube placed today by Dr. Ronquillo. Procedure on hold indefinitely until more clinically stable. Anemia -Stool occult blood positive on 10/05. -Hgb is 7.7 and Hct is 22.9 Patient is s/p 7 units leukocyte reduced PRBC's. Continue to monitor H/H levels with serial CBC's. Consider Transfusion if Hgb falls below 7. Sepsis/Fungemia -Grew Kamille Albicans -Sputum culture grew Pseudomonas Aeurginosa. -Continue Micafungin (renal dosing) - Will continue to monitor closely. -Merrem, Vancomycin completed. Will monitor closely for signs of infection. C Diff infection. -Vancomycin completed. -Repeat stool sample negative. Continue to monitor closely. Hypokalemia - Will continue to replete as needed. Will continue to monitor electrolyte levels with serial cmp's. GI ppx -Continue Protonix DVT ppx. <Zoe GALLEGOS,Jacob - Last Filed: 10/29/16 10:43> Objective - Vital Signs/Intake and Output Vital Signs (last 24 hours): Temp Pulse Resp BP Pulse Ox 98.7 F 97 H 35 H 91/60 L 98 10/29/16 08:00 10/29/16 08:00 10/29/16 06:00 10/29/16 06:00 10/29/16 04:00 Intake and Output: 10/29/16 10/29/16 06:59 18:59 Intake Total 1820 Output Total 700 Balance 1120 - Medications Medications: Current Medications Artificial Tears (Artificial Tears Opht Oint) 1 gm OU Q6 [facility] Last Admin: 10/29/16 05:58 Dose: 1 applic Bacitracin (Bacitracin) 0 gm TOP BID [facility] Last Admin: 10/28/16 17:54 Dose: 1 unit Folic Acid (Folic Acid) 1 mg PO DAILY [facility] Last Admin: 10/29/16 09:24 Dose: 1 mg Potassium Chloride (Potassium Chloride 10 Meq/100 Ml) 10 meq in 100 mls @ 100 mls/hr IVPB Q2H TONI Stop: 10/29/16 12:29 Last Admin: 10/29/16 09:31 Dose: 100 mls/hr Sodium Chloride (Sodium Chloride 0.45%) 1,000 mls @ 150 mls/hr IV .Q6H40M [facility] Metoclopramide HCl (Reglan) 10 mg IVP Q6H PRN PRN Reason: Other Last Admin: 10/25/16 00:41 Dose: 10 mg Midodrine (Proamatine) 5 mg PO TID [facility] Last Admin: 10/29/16 09:24 Dose: 5 mg Morphine Sulfate (Morphine) 2 mg IVP Q4H PRN PRN Reason: Pain, severe (8-10) Last Admin: 10/26/16 17:23 Dose: 2 mg Pantoprazole Sodium (Protonix Inj) 40 mg IVP Q12 [facility] Last Admin: 10/29/16 09:24 Dose: 40 mg Thiamine HCl (Vitamin B1 Tab) 100 mg PO DAILY [facility] Last Admin: 10/28/16 10:15 Dose: 100 mg Vitamin B Complex/Vit C/Folic Acid (Nephro-Mariann) 1 tab PO 0800 [facility] Last Admin: 10/29/16 08:21 Dose: 1 tab - Labs Labs: 10/29/16 08:40 10/29/16 05:00 PT 16.6 Seconds (9.9-11.8) H 10/27/16 05:30 INR 1.54 (0.93-1.08) H 10/27/16 05:30 APTT 35.0 Seconds (23.7-30.8) H 10/27/16 05:30 Attending/Attestation - Attestation I have personally seen and examined this patient.: Yes I have fully participated in the care of the patient.: Yes I have reviewed all pertinent clinical information, including history, physical exam and plan: Yes Notes (Text): 10/29/16 10:41 Patient was seen and examined with biomedical specialist. 56 year old male with PMH of alcohol abuse, cirrhosis who was admitted with change of mental status, was found to be have alcohol intoxication ,sepsis,, Rhabdomylosis, acute renal failure and was intubated later on. He was also found to have oliguric acute renal failure ,anemia ,thrombocytopenia, SBP,HCAP,~ cdiff~and fungemia, Patient is SP tracheotomy, still requiring ventilatory support, on FIO2 40%..Renal functions are stable.Hemoglobin is dropping requiring intermittent PRBC transfusion.No Plan for EGD as per GI.Transfuse to keep hemoglobin > 7.Patient is awaiting for PEG tube placement.Plan for posible PEG tube on Sunday.Patient is afebrile, antibiotics has been discontinued Patient is DNR/ DNI. Prognosis is guard
[2016-10-28] MEDS ORDERED: Magnesium Sulfate 2 GM in Sodium Chloride 0.9% 100 ML IV ONE (21:29)
[2016-10-29] MEDS: Mineral Oil/Petrolatum Opht Oint(3.5 gm) OU SCH ×4 (00:22→13:50)
[2016-10-29 05:59] LABS: BASO # 0.03 K/mm3 (0.0-2.0); BASO % 0.2 % (0.0-3.0); EOS # 0.1 (0.0-0.7); EOS % 0.5 % (1.5-5.0); GRAN # 14.59 (1.4-6.5); GRAN % 73.7 % (50.0-68.0); HEMATOCRIT 24.6 % (42.0-52.0); LYMPH # 4.1 (1.2-3.4); LYMPH % 20.9 % (22.0-35.0); MEAN CELL VOLUME 90.4 fl (80.0-105.0); MEAN CORPUSCULAR HEMOGLOBIN 30.1 pg (25.0-35.0); MEAN CORPUSCULAR HGB CONC 33.3 g/dl (31.0-37.0); MEAN PLATELET VOLUME 12.4 fl (7.0-11.0); MONO # 0.9 (0.1-0.6); MONO % 4.7 % (1.0-6.0); RED CELL DISTRIBUTION WIDTH 17.5 % (11.5-14.5); WHITE BLOOD COUNT 19.8 10^3/ul (4.5-11.0)
[2016-10-29 06:05] LABS: ALB/GLOB RATIO 0.6 (1.1-1.8); BILIRUBIN,TOTAL 1.9 mg/dL (0.2-1.3); MAGNESIUM 1.9 mg/dL (1.7-2.2); PHOSPHOROUS 6.4 mg/dL (2.5-4.5); POTASSIUM 3.4 mmol/L (3.6-5.0); TOTAL PROTEIN 4.4 g/dL (5.8-8.3)
[2016-10-29 06:16] LABS: CALCIUM 6.8 mg/dL (8.4-10.5)
[2016-10-29] MEDS ORDERED: Sodium Chloride 0.9% 1,000 ML IV STA (07:12)
--- NOTE | 2016-10-29 08:17 | CP.PCM.PN ---
Subjective - Date & Time of Evaluation Date of Evaluation: 10/29/16 Time of Evaluation: 08:14 - Subjective Subjective: Surgery: Dr. Ronquillo Pt seen and examined. Per nursing no acute events overnight. Pt did have 500cc of dark blood drained via rectal tube. Pt remains on vent. Awake, unable to follow commands. Objective - Vital Signs/Intake and Output Vital Signs (last 24 hours): Temp Pulse Resp BP Pulse Ox 98 F 98 H 35 H 91/60 L 98 10/29/16 04:00 10/29/16 06:00 10/29/16 06:00 10/29/16 06:00 10/29/16 04:00 Intake and Output: 10/29/16 10/29/16 06:59 18:59 Intake Total 1820 Output Total 700 Balance 1120 - Medications Medications: Current Medications Artificial Tears (Artificial Tears Opht Oint) 1 gm OU Q6 [facility] Last Admin: 10/29/16 05:58 Dose: 1 applic Bacitracin (Bacitracin) 0 gm TOP BID [facility] Last Admin: 10/28/16 17:54 Dose: 1 unit Folic Acid (Folic Acid) 1 mg PO DAILY [facility] Last Admin: 10/28/16 10:36 Dose: 1 mg Dextrose (Dextrose 5% In Water 1000 Ml) 1,000 mls @ 100 mls/hr IV .Q10H [facility] Last Admin: 10/29/16 02:30 Dose: 100 mls/hr Metoclopramide HCl (Reglan) 10 mg IVP Q6H PRN PRN Reason: Other Last Admin: 10/25/16 00:41 Dose: 10 mg Midodrine (Proamatine) 5 mg PO TID [facility] Last Admin: 10/28/16 18:02 Dose: 5 mg Morphine Sulfate (Morphine) 2 mg IVP Q4H PRN PRN Reason: Pain, severe (8-10) Last Admin: 10/26/16 17:23 Dose: 2 mg Pantoprazole Sodium (Protonix Inj) 40 mg IVP Q12 [facility] Last Admin: 10/28/16 10:16 Dose: 40 mg Thiamine HCl (Vitamin B1 Tab) 100 mg PO DAILY [facility] Last Admin: 10/28/16 10:15 Dose: 100 mg Vitamin B Complex/Vit C/Folic Acid (Nephro-Mariann) 1 tab PO 0800 [facility] Last Admin: 10/28/16 10:16 Dose: 1 tab - Labs Labs: 10/29/16 05:00 10/29/16 05:00 PT 16.6 Seconds (9.9-11.8) H 10/27/16 05:30 INR 1.54 (0.93-1.08) H 10/27/16 05:30 APTT 35.0 Seconds (23.7-30.8) H 10/27/16 05:30 - Constitutional Appears: Older Than Stated Age, Chronically Ill - Head Exam Head Exam: ATRAUMATIC, NORMOCEPHALIC - Eye Exam Eye Exam: EOMI - ENT Exam ENT Exam: Mucous Membranes Moist - Neck Exam Additional comments: trach - Respiratory Exam Additional comments: on vent - GI/Abdominal Exam GI & Abdominal Exam: Distended, Soft. absent: Firm, Guarding, Rigid, Tenderness , Rebound - Extremities Exam Extremities Exam: Pedal Edema. absent: Calf Tenderness Additional comments: b/l UE Edema - Neurological Exam Neurological Exam: Alert, Awake, Oriented x3 Assessment and Plan - Assessment and Plan (Free Text) Assessment: 56M w. MOD likely 2/2 decompensated liver failure, consulted for G-tube placement -Pt is poor surgical candidate with poor prognosis -Pt is DNR -no immediate plans for G-tube -will continue to follow -d/w attending Macie PGY3
[2016-10-29] MEDS: Multivitamin Vitamin B Complex (Nephro-Vite) Tab PO SCH (08:21)
[2016-10-29 08:59] LABS: BASO # 0.03 K/mm3 (0.0-2.0); BASO % 0.2 % (0.0-3.0); EOS # 0.1 (0.0-0.7); EOS % 0.6 % (1.5-5.0); GRAN # 11.81 (1.4-6.5); LYMPH # 2.8 (1.2-3.4); LYMPH % 18.2 % (22.0-35.0); MEAN CELL VOLUME 90.6 fl (80.0-105.0); MEAN CORPUSCULAR HEMOGLOBIN 29.9 pg (25.0-35.0); MEAN PLATELET VOLUME 11.5 fl (7.0-11.0); MONO # 0.8 (0.1-0.6); RED CELL DISTRIBUTION WIDTH 17.5 % (11.5-14.5); WHITE BLOOD COUNT 15.5 10^3/ul (4.5-11.0)
[2016-10-29 09:06] LABS: HEMATOCRIT 21.2 % (42.0-52.0)
--- NOTE | 2016-10-29 10:13 | CP.PCM.PN ---
<Justo Torres - Last Filed: 10/29/16 10:22> Subjective - Date & Time of Evaluation Date of Evaluation: 10/29/16 Time of Evaluation: 08:12 - Subjective Subjective: This patient was seen and examined at beside this morning. Per nursing there were no acute events overnight. The patient was started back on feeding at 10cc /hr. The G-tube surgery has been postponed indefinitely by surgery. ROS unobtainable due to current clinical condition. Objective - Vital Signs/Intake and Output Vital Signs (last 24 hours): Temp Pulse Resp BP Pulse Ox 98.7 F 97 H 35 H 91/60 L 98 10/29/16 08:00 10/29/16 08:00 10/29/16 06:00 10/29/16 06:00 10/29/16 04:00 Intake and Output: 10/29/16 10/29/16 06:59 18:59 Intake Total 1820 Output Total 700 Balance 1120 - Medications Medications: Current Medications Artificial Tears (Artificial Tears Opht Oint) 1 gm OU Q6 [facility] Last Admin: 10/29/16 05:58 Dose: 1 applic Bacitracin (Bacitracin) 0 gm TOP BID [facility] Last Admin: 10/28/16 17:54 Dose: 1 unit Folic Acid (Folic Acid) 1 mg PO DAILY [facility] Last Admin: 10/29/16 09:24 Dose: 1 mg Dextrose (Dextrose 5% In Water 1000 Ml) 1,000 mls @ 100 mls/hr IV .Q10H [facility] Last Admin: 10/29/16 02:30 Dose: 100 mls/hr Potassium Chloride (Potassium Chloride 10 Meq/100 Ml) 10 meq in 100 mls @ 100 mls/hr IVPB Q2H [facility] Stop: 10/29/16 12:29 Last Admin: 10/29/16 09:31 Dose: 100 mls/hr Metoclopramide HCl (Reglan) 10 mg IVP Q6H PRN PRN Reason: Other Last Admin: 10/25/16 00:41 Dose: 10 mg Midodrine (Proamatine) 5 mg PO TID [facility] Last Admin: 10/29/16 09:24 Dose: 5 mg Morphine Sulfate (Morphine) 2 mg IVP Q4H PRN PRN Reason: Pain, severe (8-10) Last Admin: 10/26/16 17:23 Dose: 2 mg Pantoprazole Sodium (Protonix Inj) 40 mg IVP Q12 [facility] Last Admin: 10/29/16 09:24 Dose: 40 mg Thiamine HCl (Vitamin B1 Tab) 100 mg PO DAILY [facility] Last Admin: 10/28/16 10:15 Dose: 100 mg Vitamin B Complex/Vit C/Folic Acid (Nephro-Mariann) 1 tab PO 0800 [facility] Last Admin: 10/29/16 08:21 Dose: 1 tab - Labs Labs: 10/29/16 08:40 10/29/16 05:00 PT 16.6 Seconds (9.9-11.8) H 10/27/16 05:30 INR 1.54 (0.93-1.08) H 10/27/16 05:30 APTT 35.0 Seconds (23.7-30.8) H 10/27/16 05:30 - Constitutional Appears: Toxic, Older Than Stated Age, Cachectic, Chronically Ill - Head Exam Head Exam: NORMAL INSPECTION, NORMOCEPHALIC - Eye Exam Eye Exam: EOMI, Normal appearance, PERRL. absent: Periorbital tenderness Pupil Exam: NORMAL ACCOMODATION, PERRL. absent: Irregular - ENT Exam ENT Exam: Mucous Membranes Moist - Neck Exam Additional comments: Trach placed. - Respiratory Exam Respiratory Exam: Clear to Ausculation Bilateral, NORMAL BREATHING PATTERN. absent: Accessory Muscle Use, Chest Wall Tenderness - Cardiovascular Exam Cardiovascular Exam: REGULAR RHYTHM, RRR, +S1, +S2. absent: Gallop, Rubs - GI/Abdominal Exam GI & Abdominal Exam: Soft, Normal Bowel Sounds. absent: Rigid, Tenderness - Extremities Exam Extremities Exam: Joint Swelling. absent: Full ROM, Normal Inspection, Tenderness - Back Exam Back Exam: absent: NORMAL INSPECTION, paraspinal tenderness Additional comments: unstageable bed ulcers per nursing. - Neurological Exam Neurological Exam: Altered - Skin Skin Exam: Mottled Assessment and Plan - Assessment and Plan (Free Text) Assessment: 56 year old male with an initial presentation of AMS in the setting of persistent hypokalemia and alcohol withdrawal, which resolved. Patient was then intubated after he was found to be in hypercapnic respiratory failure and subsequently became hemodynamically unstable requiring dual vasopressor support. His presentation is consistent with distributive shock likely from either acute decompensated chronic liver failure or sepsis from C. Diff colitis , with multiorgan dysfunction syndrome including renal failure, encephalopathy and respiratory failure. Patient is no longer requiring vasopressin or levophed for hemodynamic support but is on midodrine. Patient is currently unresponsive to verbal or tactile stimuli off of sedation. Patient is has been transitioned from PRVC to PS/CPAP Plan: Pulmonary: Hypercapnic Respiratory Failure -Patient intubated on 10/05. Today: FiO2= 40%, RR=30, PEEP+5, and Tidal Volume + 400 ml, O2 saturation+97% -ABG: pCO2+39, pO2+52, pH+7.3 -s/p Trach Day 8. -Patient hypotension slightly (91/63) and remains off pressors. -Cardio following -Repeat CXR shows no active pulmonary disease. -Continue to monitor vital signs. -Continue Duonebs 3ml IHQ6 HRESP for wheezing symptoms. -Currently being fed 10cc/hr. -G-tube placement put on hold indefinitely by surgery team. Will monitor closely. Renal: Acute renal failure most likely secondary to glomerulonephritis -BUN 87 and Creatinine is 2.2. Showing signs of improvement in SHAMAR. -Urine total protein-897 and Urine Microalbumin >950. -Nephrology consult note appreciated. -No acute indications for HD at this time. Urine output remains steady. -Nephrology consult note appreciate- Hematology: Thrombocytopenia -Plt count now 91 s/p 4 units of Platelets transfused. Trending down. Continue to monitor plt count and consider another transfusion if patient drops below 20. -Patient currently has no active bleeds. Monitor for bleeding. EtOh Withdrawal -Continue Ativan 2mg IVP Q2H PRN for alcohol withdrawal symptoms. -Continue Thiamine, Folic acid and MV supplementation Ascites -s/p ascitic fluid removed on 10/05. -culture growth negative after 6 days. -MELDS score of 20: 19.3% Mortality risk in 3 month time period. GI: Hepatic encephalopathy -Continue Lactulose 20 mg BID TONI. -Rectal tube in place and currently draining 2800 ml. -Scheduled to have gastrostomy tube placed today by Dr. Ronquillo. Procedure on hold indefinitely until more clinically stable. Anemia -Stool occult blood positive on 10/05. -Hgb is 7 and Hct is 21.2 Patient is s/p 7 units leukocyte reduced PRBC's. Continue to monitor H/H levels with serial CBC's. Consider Transfusion if Hgb falls below 7. Sepsis/Fungemia -Grew Kamille Albicans -Sputum culture grew Pseudomonas Aeurginosa. -Continue Micafungin (renal dosing) - Will continue to monitor closely. -Merrem, Vancomycin completed. Will monitor closely for signs of infection. C Diff infection. -Vancomycin completed. -Repeat stool sample negative. Continue to monitor closely. Hypokalemia - Will continue to replete as needed. Will continue to monitor electrolyte levels with serial cmp's. GI ppx -Continue Protonix DVT ppx. <Zoe GALLEGOS,Jacob - Last Filed: 11/06/16 13:54> Objective - Vital Signs/Intake and Output Vital Signs (last 24 hours): Temp Pulse Resp BP Pulse Ox 97.7 F 91 H 35 H 76/40 L 100 10/31/16 16:00 10/31/16 22:00 10/31/16 08:43 10/31/16 22:00 10/31/16 22:00 - Labs Labs: 10/31/16 05:20 10/31/16 05:20 PT 15.5 Seconds (9.9-11.8) H 10/31/16 05:20 INR 1.44 (0.93-1.08) H 10/31/16 05:20 APTT 39.3 Seconds (23.7-30.8) H 10/31/16 05:20 Attending/Attestation - Attestation I have personally seen and examined this patient.: Yes I have fully participated in the care of the patient.: Yes I have reviewed all pertinent clinical information, including history, physical exam and plan: Yes Notes (Text): 11/06/16 13:53 Patient was seen and examined with electromedical equipment technician. 56 year old male with PMH of alcohol abuse, cirrhosis who was admitted with change of mental status, was found to be have alcohol intoxication, sepsis,, rhabdomyolysis, acute renal failure and was intubated later on. He was also found to have oliguric acute renal failure ,anemia ,thrombocytopenia, was treated for SBP,HCAP,~cdiff~and fungemia, He Patient is SP tracheotomy .He is still requiring ventilatory support, Hemoglobin is dropping requiring intermittent PRBC transfusion.No Plan for EGD as per GI. Transfuse to keep hemoglobin > 7.Patient is awaiting for PEG tube placement. Plan for possible PEG tube on Sunday. Prognosis is guarded
[2016-10-29] MEDS ORDERED: Sodium Chloride 0.45% 1,000 ML IV SCH (10:15)
--- NOTE | 2016-10-29 10:39 | PN ---
RECYCLING OPERATOR NOTE DATE: 10/29/2016 SUBJECTIVE: The patient continues to be on the ventilator, but does seem to be a little more responsive today. The patient is getting IV normal saline bolus and blood pressure is responding to a normal level at this time. He continues to have very dark stools, but hemoglobin is stable. Note that the patient is on the ventilator with a tracheostomy. PHYSICAL EXAMINATION VITAL SIGNS: His temperature is 98, pulse is 98, respirations are 26, and his BP is 105/64. SKIN: Warm and dry. HEAD: Atraumatic and normocephalic. EYES: Reactive to light. EAR, NOSE, AND THROAT: Seem to be within normal limits. NECK: Supple. No JVD. No thyroid enlargement, but tracheostomy is in place. LUNGS: Reveal mild rhonchi bilaterally. HEART: Has regular rate and rhythm. Normal S1 and S2. ABDOMEN: Soft, decreased bowel sounds. GENITOURINARY AND RECTAL: Deferred. MUSCULOSKELETAL: No joint deformity. EXTREMITIES: Reveal positive lower extremity edema. NEUROLOGIC: The patient is responsive on the ventilator. LABORATORY DATA: As far as his laboratories are concerned, his white count is 19.8, hemoglobin is 8.2, hematocrit 24.6 with platelets of 114,000 The patient's PT is 16.6, INR is 1.54, and PTT is 35. Arterial blood gas is pending. Sodium is 144, potassium is 3.4, chloride 114, CO2 of 18 with a BUN of 83, creatinine of 1.9, and glucose of 100. The patient did have chest x-ray that reveals a small left pleural effusion, left lower lobe atelectasis and a possible left lower lobe pneumonia. IMPRESSION: This patient has respiratory failure requiring ventilator support, small left lower lobe pneumonia, lower lobe atelectasis and a small left-sided pleural effusion. The patient has a gas with GI bleed and is being monitored closely. He has anemia and noted to have renal failure, possible sepsis and does have a tracheostomy as well. The patient was initially admitted for alcohol withdrawal and delirium tremens. PLAN: As far as our plan, we will continue with ventilator support and tracheostomy care. The patient is a DNR/DNI as per family. We will continue with IV fluids and monitor his blood pressure closely as well as follow his hemoglobin and transfuse as needed. The patient will continue with his antibiotics, Protonix, as well as the Reglan and we will continue to treat aggressively along with the other consultants and a primary care doctor. Elver Quintero MD
[2016-10-29] MEDS: Sodium Chloride 0.9% 1,000 ML IV SCH ×2 (11:17→20:00)
[2016-10-29] MEDS: Bacitracin Ointment 30 GM TUBE TOP SCH (12:14)
--- NOTE | 2016-10-29 12:57 | PN ---
DATE: 10/29/2016 SUBJECTIVE: The patient is seen earlier today in ICU 128, bed 7. The patient remains trached on a vent. Overall in poor condition. PHYSICAL EXAMINATION: VITAL SIGNS: Temperature is 98, blood pressure is 90/60, respiratory rate of 35, heart rate of 98. HEENT: Unremarkable. NECK: Supple. LUNGS: Decreased breath sounds. HEART: Normal S1 and S2. ABDOMEN: Soft and nontender. LABORATORY DATA: Examination reveals the white count is 15,500, hemoglobin of 7, and platelets of 91. Chemistries reveals the BUN of 83, creatinine of 1.9. LFTs are noted. ASSESSMENT AND PLAN: A 56-year-old male with severe sepsis, status post ventilator-dependent respiratory failure, currently trached on a vent, status post tracheostomy with respiratory acidosis, acute renal failure with right-sided healthcare-associated pneumonia and Pseudomonas, status post tom albicans fungemia, status post Pseudomembranous colitis in a patient with liver cirrhosis secondary to alcohol abuse and status post paracentesis and found to have spontaneous bacterial peritonitis, was treated; also with delirium tremens and esophageal varices and significant smoking history. Currently, the patient is off of antibiotics and is completed Mycamine therapy. An ophthalmology exam, which was negative for endophthalmitis and afebrile and also discontinued the Amikacin inhaler. The patient is at risk for developing nosocomial infections. Overall prognosis is quite poor. Nehemiah Aguilar MD
--- NOTE | 2016-10-29 22:08 | CP.PCM.PN ---
Subjective - Date & Time of Evaluation Date of Evaluation: 10/29/16 Time of Evaluation: 12:00 - Subjective Subjective: Still with blood stool output from flexiseal; hypotensive earlier today and received 1L NS bolus; Objective - Vital Signs/Intake and Output Vital Signs (last 24 hours): Temp Pulse Resp BP Pulse Ox 97.9 F 93 H 34 H 90/54 L 94 L 10/29/16 20:00 10/29/16 21:00 10/29/16 21:00 10/29/16 21:00 10/29/16 21:00 Intake and Output: 10/29/16 10/30/16 18:59 06:59 Intake Total 2095 Output Total 1400 Balance 695 - Medications Medications: Current Medications Artificial Tears (Artificial Tears Opht Oint) 1 gm OU Q6 [facility] Last Admin: 10/29/16 13:50 Dose: 1 applic Bacitracin (Bacitracin) 0 gm TOP BID [facility] Last Admin: 10/29/16 12:14 Dose: 1 unit Folic Acid (Folic Acid) 1 mg PO DAILY [facility] Last Admin: 10/29/16 09:24 Dose: 1 mg Sodium Chloride (Sodium Chloride 0.9%) 1,000 mls @ 125 mls/hr IV .Q8H [facility] Last Admin: 10/29/16 20:00 Dose: 125 mls/hr Metoclopramide HCl (Reglan) 10 mg IVP Q6H PRN PRN Reason: Other Last Admin: 10/25/16 00:41 Dose: 10 mg Midodrine (Proamatine) 5 mg PO TID [facility] Last Admin: 10/29/16 18:50 Dose: 5 mg Pantoprazole Sodium (Protonix Inj) 40 mg IVP Q12 [facility] Last Admin: 10/29/16 21:42 Dose: 40 mg Thiamine HCl (Vitamin B1 Tab) 100 mg PO DAILY [facility] Last Admin: 10/29/16 10:00 Dose: 100 mg Vitamin B Complex/Vit C/Folic Acid (Nephro-Mariann) 1 tab PO 0800 [facility] Last Admin: 10/29/16 08:21 Dose: 1 tab - Labs Labs: 10/29/16 08:40 10/29/16 05:00 PT 16.6 Seconds (9.9-11.8) H 10/27/16 05:30 INR 1.54 (0.93-1.08) H 10/27/16 05:30 APTT 35.0 Seconds (23.7-30.8) H 10/27/16 05:30 - Constitutional Appears: No Acute Distress, Cachectic - Head Exam Head Exam: NORMAL INSPECTION - Eye Exam Eye Exam: Normal appearance - ENT Exam ENT Exam: Mucous Membranes Moist - Respiratory Exam Respiratory Exam: Clear to Ausculation Bilateral. absent: NORMAL BREATHING PATTERN - Cardiovascular Exam Cardiovascular Exam: REGULAR RHYTHM, +S1, +S2 - GI/Abdominal Exam GI & Abdominal Exam: Distended, Soft. absent: Tenderness - Exam Exam: Scrotal Swelling - Extremities Exam Additional comments: markedly edematous ext; - Neurological Exam Neurological Exam: Awake Additional comments: not following commands; - Skin Skin Exam: Normal Color, Warm. absent: Cyanosis Assessment and Plan (1) Acute renal failure Assessment & Plan: Multifactorial (ATN, underlying GN, pre-renal); relatively stable renal function lately; will restart NS at 125 cc/hr to correct for ongoing losses; Status: Acute (2) Acute hypercapnic respiratory failure Status: Acute (3) Hypokalemia Assessment & Plan: With ongoing stool losses, replenish prn; Status: Acute (4) Hypocalcemia Status: Resolved (5) SIRS (systemic inflammatory response syndrome) Assessment & Plan: Off all antibiotics; hypotensive intermittently; continue to monitor; Status: Acute (6) Hypernatremia Assessment & Plan: Mild; will increase free water intake prn; Status: Acute
[2016-10-30] MEDS: Mineral Oil/Petrolatum Opht Oint(3.5 gm) OU SCH ×3 (00:02→12:00)
[2016-10-30] MEDS: Sodium Chloride 0.9% 1,000 ML IV SCH ×3 (04:00→19:00)
[2016-10-30 07:03] LABS: BASO # 0.01 K/mm3 (0.0-2.0); BASO % 0.1 % (0.0-3.0); EOS # 0.1 (0.0-0.7); EOS % 0.4 % (1.5-5.0); GRAN # 9.69 (1.4-6.5); GRAN % 76.5 % (50.0-68.0); LYMPH # 2.3 (1.2-3.4); LYMPH % 18.4 % (22.0-35.0); MEAN CELL VOLUME 89.4 fl (80.0-105.0); MEAN CORPUSCULAR HEMOGLOBIN 29.8 pg (25.0-35.0); MEAN CORPUSCULAR HGB CONC 33.3 g/dl (31.0-37.0); MEAN PLATELET VOLUME 12.1 fl (7.0-11.0); MONO # 0.6 (0.1-0.6); MONO % 4.6 % (1.0-6.0); WHITE BLOOD COUNT 12.7 10^3/ul (4.5-11.0)
[2016-10-30 07:11] LABS: MAGNESIUM 1.7 mg/dL (1.7-2.2); PHOSPHOROUS 6.2 mg/dL (2.5-4.5); POTASSIUM 3.4 mmol/L (3.6-5.0)
[2016-10-30 07:21] LABS: HEMATOCRIT 16.8 % (42.0-52.0)
[2016-10-30 07:29] LABS: CALCIUM 6.8 mg/dL (8.4-10.5)
--- NOTE | 2016-10-30 07:38 | CP.CCUPN ---
CCU Subjective - Physician Review Subjective (Free Text): 10/30/16 07:36 Patient seen and examined at bedside in the ICU. Remains intubated, unresponsive. This AM, lab reported Hgb of 5.4, so 2 units pRBCs ordered, will f/u hgb post transfusion. S/p trach, G-tube on hold indefinitely per Surgery due to persistent BRBPR/melanotic stool. Critical Care Time Spent (in minutes): 35 CCU Objective - Vital Signs / Intake & Output Vital Signs (Last 4 hours): Vital Signs Temp Pulse Resp BP Pulse Ox 10/30/16 06:00 94 H 32 H 93/59 L 9 L 10/30/16 05:00 99 H 34 H 96/60 L 96 10/30/16 04:00 98.4 F 104 H 37 H 92/59 L 96 Intake and Output (Last 8hrs): Intake & Output 10/29/16 10/30/16 10/30/16 22:59 06:59 14:59 Intake Total 2095 1820 Output Total 1400 900 Balance 695 920 Intake: IV 1600 1500 dextrose 5 400 meds 200 saline 1000 1500 Tube Feeding 120 220 Blood Product 325 Red Blood Cells Cpd As1 325 Lr Unit [id number] Other 50 100 Red Blood Cells Cpd As1 50 Lr Unit [id number] Output: Urine 300 300 Urethral (Vyas) 300 300 Stool 1100 600 - Physical Exam Physical Exam Limitations: Positive for: Altered Mental Status (intubated and unresponsive) Head: Positive for: Atraumatic, Normocephalic Pupils: Positive for: PERRL Extroacular Muscles: Positive for: EOMI Conjunctiva: Positive for: Normal Ears: Positive for: Normal Mouth: Positive for: Moist Mucous Membranes Nose (External): Positive for: Atraumatic Nose (Internal): Positive for: Other Neck: Positive for: Normal Range of Motion, Trachea Midline, Other ( Tracheostomy insertion site without signs of infection). Negative for: Lymphadenopathy Respiratory/Chest: Positive for: Clear to Auscultation, Good Air Exchange, Tachypneic, Other (Mechanical ventilation). Negative for: Respiratory Distress , Accessory Muscle Use, Wheezes, Decreased Breath Sounds, Retracting, Rhonchi Cardiovascular: Positive for: Regular Rate and Rhythm, Normal S1, S2. Negative for: Murmurs Abdomen: Positive for: Normal Bowel Sounds, Other (Paracentesis site with sutures, no signs of infection, dressing clean, dry and intact; rectal tube draining melena). Negative for: Tenderness, Distention, Peritoneal Signs Genitourinary Male: Positive for: Other (Vyas in place, no signs of infection) . Negative for: Testicle Swelling Back: Positive for: Normal Inspection Upper Extremity: Positive for: Edema (1+ pitting edema B/L UE). Negative for: Normal Inspection (Multiple areas of ecchymoses), Cyanosis Lower Extremity: Positive for: Edema (1+ Pitting edema B/L up to thighs). Negative for: Normal Inspection Neurological: Positive for: Other (Gag and corneal reflex intact; ability to track motion with eyes intact). Negative for: GCS=15 (GCS of 3T), CN II-XII Intact, Speech Normal Skin: Positive for: Warm, Other (Area of erythema on the presacral area of the lower back measuring approximately 2-3cm with no skin ulceration; currently unstageable ). Negative for: Rashes, Normal Color (multiple ecchymoses over UE B/L) Psychiatric: Negative for: Alert (arousable to tactile stimuli), Oriented x 3, Normal Insight, Normal Concentration - Medications Active Medications: Active Medications Generic Name Dose Route Start Last Admin Trade Name Freq PRN Reason Stop Dose Admin Artificial Tears 1 gm 10/10/16 18:00 10/30/16 05:17 Artificial Tears Opht Oint OU 1 applic Q6 [facility] Administration Bacitracin 0 gm 10/28/16 18:00 10/29/16 12:14 Bacitracin TOP 1 unit BID [facility] Administration Folic Acid 1 mg 10/03/16 10:00 10/29/16 09:24 Folic Acid PO 1 mg DAILY [facility] Administration Sodium Chloride 1,000 mls @ 125 mls/hr 10/29/16 11:15 10/30/16 04:00 Sodium Chloride 0.9% IV 125 mls/hr .Q8H [facility] Administration Potassium Chloride 20 meq in 100 mls @ 50 mls/hr 10/30/16 07:45 Potassium Chloride 20 Meq/100 Ml IVPB 10/30/16 11:44 Q2H [facility] Metoclopramide HCl 10 mg 10/09/16 16:56 10/25/16 00:41 Reglan IVP 10 mg Q6H PRN Administration Other Midodrine 5 mg 10/09/16 10:00 10/29/16 18:50 Proamatine PO 5 mg TID [facility] Administration Pantoprazole Sodium 40 mg 10/24/16 10:00 10/29/16 21:42 Protonix Inj IVP 40 mg Q12 [facility] Administration Thiamine HCl 100 mg 10/03/16 10:00 10/29/16 10:00 Vitamin B1 Tab PO 100 mg DAILY [facility] Administration Vitamin B Complex/Vit C/Folic Acid 1 tab 10/03/16 08:00 10/29/16 08:21 Nephro-Mariann PO 1 tab 0800 [facility] Administration - Patient Studies Lab Studies: Lab Studies 10/30/16 10/30/16 10/29/16 Range/Units 06:30 06:30 11:20 WBC 12.7 H (4.5-11.0) 10^3/ul RBC 1.88 L (3.5-6.1) 10^6/uL Hgb 5.6 L* (14.0-18.0) g/dL Hct 16.8 L* (42.0-52.0) % MCV 89.4 (80.0-105.0) fl MCH 29.8 (25.0-35.0) pg MCHC 33.3 (31.0-37.0) g/dl RDW 18.0 H (11.5-14.5) % Plt Count 68 L (120.0-450.0) 10^3/uL MPV 12.1 H (7.0-11.0) fl Gran % 76.5 H (50.0-68.0) % Lymph % (Auto) 18.4 L (22.0-35.0) % [place] % (Auto) 4.6 (1.0-6.0) % Eos % (Auto) 0.4 L (1.5-5.0) % Baso % (Auto) 0.1 (0.0-3.0) % Gran # 9.69 H (1.4-6.5) Lymph # 2.3 (1.2-3.4) [place] # 0.6 (0.1-0.6) Eos # 0.1 (0.0-0.7) Baso # 0.01 (0.0-2.0) K/mm3 Sodium 143 (132-148) mmol/L Potassium 3.4 L (3.6-5.0) mmol/L Chloride 118 H (98-107) mmol/L Carbon Dioxide 15 L (21-33) mmol/L Anion Gap 13 (10-20) BUN 78 H (7-21) mg/dL Creatinine 1.9 H (0.5-1.4) mg/dL Est GFR ( Amer) 45 Est GFR (Non-Af Amer) 37 Random Glucose 88 (70-110) mg/dL Calcium 6.8 L* (8.4-10.5) mg/dL Phosphorus 6.2 H (2.5-4.5) mg/dL Magnesium 1.7 (1.7-2.2) mg/dL Blood Type O POSITIVE Antibody Screen Negative Crossmatch See Detail BBK History Checked Patient has bt 10/29/16 Range/Units 08:40 WBC 15.5 H D (4.5-11.0) 10^3/ul RBC 2.34 L (3.5-6.1) 10^6/uL Hgb 7.0 L (14.0-18.0) g/dL Hct 21.2 L (42.0-52.0) % MCV 90.6 (80.0-105.0) fl MCH 29.9 (25.0-35.0) pg MCHC 33.0 (31.0-37.0) g/dl RDW 17.5 H (11.5-14.5) % Plt Count 91 L (120.0-450.0) 10^3/uL MPV 11.5 H (7.0-11.0) fl Gran % 76.0 H (50.0-68.0) % Lymph % (Auto) 18.2 L (22.0-35.0) % [place] % (Auto) 5.0 (1.0-6.0) % Eos % (Auto) 0.6 L (1.5-5.0) % Baso % (Auto) 0.2 (0.0-3.0) % Gran # 11.81 H (1.4-6.5) Lymph # 2.8 (1.2-3.4) [place] # 0.8 H (0.1-0.6) Eos # 0.1 (0.0-0.7) Baso # 0.03 (0.0-2.0) K/mm3 Sodium (132-148) mmol/L Potassium (3.6-5.0) mmol/L Chloride (98-107) mmol/L Carbon Dioxide (21-33) mmol/L Anion Gap (10-20) BUN (7-21) mg/dL Creatinine (0.5-1.4) mg/dL Est GFR ( Amer) Est GFR (Non-Af Amer) Random Glucose (70-110) mg/dL Calcium (8.4-10.5) mg/dL Phosphorus (2.5-4.5) mg/dL Magnesium (1.7-2.2) mg/dL Blood Type Antibody Screen Crossmatch BBK History Checked Laboratory Results - last 24 hr 10/29/16 10/29/16 10/30/16 08:40 11:20 06:30 WBC 15.5 H D 12.7 H RBC 2.34 L 1.88 L Hgb 7.0 L 5.6 L* Hct 21.2 L 16.8 L* MCV 90.6 89.4 MCH 29.9 29.8 MCHC 33.0 33.3 RDW 17.5 H 18.0 H Plt Count 91 L 68 L MPV 11.5 H 12.1 H Gran % 76.0 H 76.5 H Lymph % (Auto) 18.2 L 18.4 L [place] % (Auto) 5.0 4.6 Eos % (Auto) 0.6 L 0.4 L Baso % (Auto) 0.2 0.1 Gran # 11.81 H 9.69 H Lymph # 2.8 2.3 [place] # 0.8 H 0.6 Eos # 0.1 0.1 Baso # 0.03 0.01 Sodium Potassium Chloride Carbon Dioxide Anion Gap BUN Creatinine Est GFR ( Amer) Est GFR (Non-Af Amer) Random Glucose Calcium Phosphorus Magnesium Blood Type O POSITIVE Antibody Screen Negative Crossmatch See Detail BBK History Checked Patient has bt 10/30/16 06:30 WBC RBC Hgb Hct MCV MCH MCHC RDW Plt Count MPV Gran % Lymph % (Auto) [place] % (Auto) Eos % (Auto) Baso % (Auto) Gran # Lymph # [place] # Eos # Baso # Sodium 143 Potassium 3.4 L Chloride 118 H Carbon Dioxide 15 L Anion Gap 13 BUN 78 H Creatinine 1.9 H Est GFR ( Amer) 45 Est GFR (Non-Af Amer) 37 Random Glucose 88 Calcium 6.8 L* Phosphorus 6.2 H Magnesium 1.7 Blood Type Antibody Screen Crossmatch BBK History Checked Fingerstick Blood Sugar Results: 105
--- NOTE | 2016-10-30 08:49 | RAD ---
HISTORY: intubated, f/u COMPARISON: Portable chest 10/28/2016. FINDINGS: Endotracheal and feeding tubes are unchanged in position grossly. LUNGS: Potential left perihilar and basilar infiltrates persist though these appear to be secondary, if present, the left pleural effusion. Diminished right infrahilar atelectasis or infiltrate noted. PLEURA: No significant interval change in left pleural effusion is identified with none on the right once again. No pneumothorax bilaterally. CARDIOVASCULAR: Normal. OSSEOUS STRUCTURES: No significant abnormalities. VISUALIZED UPPER ABDOMEN: Normal. OTHER FINDINGS: None. IMPRESSION: 1. Diminished right infrahilar patchy infiltrate. 2. No interval change in left pleural effusion as well as possible mid to inferior left pulmonary infiltrate or atelectasis. Port
[2016-10-30] MEDS: Bacitracin Ointment 30 GM TUBE TOP SCH ×3 (10:00→18:30)
--- NOTE | 2016-10-30 10:47 | CP.PCM.PN ---
Subjective - Date & Time of Evaluation Date of Evaluation: 10/30/16 Time of Evaluation: 10:10 - Subjective Subjective: Patient continues to be on the ventilator. He is actively having GI bleeding and dark stools noted in the rectal tube. No fevers overnight. Objective - Vital Signs/Intake and Output Vital Signs (last 24 hours): Temp Pulse Resp BP Pulse Ox 98.4 F 94 H 32 H 93/59 L 9 L 10/30/16 04:00 10/30/16 06:00 10/30/16 06:00 10/30/16 06:00 10/30/16 06:00 Intake and Output: 10/29/16 10/30/16 18:59 06:59 Intake Total 2095 1820 Output Total 1400 900 Balance 695 920 - Medications Medications: Current Medications Artificial Tears (Artificial Tears Opht Oint) 1 gm OU Q6 [facility] Last Admin: 10/30/16 05:17 Dose: 1 applic Bacitracin (Bacitracin) 0 gm TOP BID [facility] Last Admin: 10/29/16 12:14 Dose: 1 unit Folic Acid (Folic Acid) 1 mg PO DAILY [facility] Last Admin: 10/29/16 09:24 Dose: 1 mg Sodium Chloride (Sodium Chloride 0.9%) 1,000 mls @ 125 mls/hr IV .Q8H [facility] Last Admin: 10/30/16 04:00 Dose: 125 mls/hr Metoclopramide HCl (Reglan) 10 mg IVP Q6H PRN PRN Reason: Other Last Admin: 10/25/16 00:41 Dose: 10 mg Midodrine (Proamatine) 5 mg PO TID [facility] Last Admin: 10/29/16 18:50 Dose: 5 mg Pantoprazole Sodium (Protonix Inj) 40 mg IVP Q12 [facility] Last Admin: 10/29/16 21:42 Dose: 40 mg Thiamine HCl (Vitamin B1 Tab) 100 mg PO DAILY [facility] Last Admin: 10/29/16 10:00 Dose: 100 mg Vitamin B Complex/Vit C/Folic Acid (Nephro-Mariann) 1 tab PO 0800 [facility] Last Admin: 10/29/16 08:21 Dose: 1 tab - Labs Labs: 10/29/16 08:40 10/29/16 05:00 PT 16.6 Seconds (9.9-11.8) H 10/27/16 05:30 INR 1.54 (0.93-1.08) H 10/27/16 05:30 APTT 35.0 Seconds (23.7-30.8) H 10/27/16 05:30 - Constitutional Appears: Non-toxic, No Acute Distress - Head Exam Head Exam: NORMAL INSPECTION - Neck Exam Neck Exam: absent: Meningismus - Respiratory Exam Respiratory Exam: Decreased Breath Sounds - Cardiovascular Exam Cardiovascular Exam: +S1, +S2 - GI/Abdominal Exam GI & Abdominal Exam: Distended, Soft. absent: Firm, Rigid, Tenderness Assessment and Plan - Assessment and Plan (Free Text) Plan: Assessment S/P severe sepsis with ventilator-dependent respiratory failure (now with tracheostomy), respiratory acidosis and acute renal failure probably due to probable right sided and healthcare-associated pneumonia with Pseudomonas acute rectal GI bleeding, etiology to be determined S/P C. albicans fungemia S/P C. diff. colitis liver cirrhosis probably from alcohol abuse; S/P paracentesis; initially presented with delerium tremens;chronic alcohol abuse with history of liver cirrhosis and esophageal varices significant smoking history Plan S/P Merrem (11 days for the the Pseudomonas in the sputum); on aerosolized tobramycin (day 8) to complete 7-10 days of therapy; S/P 14 days of PO Vancomycin (day 14) S/P Mycamine, had 16 days of therapy (repeat blood cx on 10/08/2016 are negative - patient had Ophtho evaluation 2 weeks ago and no endophthalmitis was seen) will continue to follow clinically GI following for the rectal bleeding - may need prophylactic antibiotics if this is esophageal bleeding patient continues to be in critical condition and overall prognosis is poor - patient is DNR awaiting PEG tube placement
[2016-10-30] MEDS ORDERED: Magnesium Sulfate 2 GM in Sodium Chloride 0.9% 100 ML IVPB ONE (11:06)
[2016-10-30] MEDS ORDERED: Phytonadione 10 MG in Sodium Chloride 0.9% 50 ML IV ONE (11:06)
[2016-10-30] MEDS ORDERED: Octreotide 1,250 MCG in Dextrose 5% In Water 250 ML IV SCH (11:15)
--- NOTE | 2016-10-30 12:02 | CP.PCM.PN ---
Subjective - Date & Time of Evaluation Date of Evaluation: 10/30/16 Time of Evaluation: 07:00 - Subjective Subjective: CRITICAL CARE PROGRESS NOTE Patient seen and examined, remains on PRVC, have bright red output from rectal tube, HH 5.4 today, receiving 2u PRBC, INR pending. OPens eyes, does not follow commands. Objective - Vital Signs/Intake and Output Vital Signs (last 24 hours): Temp Pulse Resp BP Pulse Ox 98.5 F 94 H 40 H 85/54 L 94 L 10/30/16 10:04 10/30/16 11:00 10/30/16 10:04 10/30/16 11:00 10/30/16 11:00 Intake and Output: 10/30/16 10/30/16 06:59 18:59 Intake Total 1820 0 Output Total 900 Balance 920 0 - Medications Medications: Current Medications Artificial Tears (Artificial Tears Opht Oint) 1 gm OU Q6 [facility] Last Admin: 10/30/16 05:17 Dose: 1 applic Bacitracin (Bacitracin) 0 gm TOP BID [facility] Last Admin: 10/29/16 12:14 Dose: 1 unit Folic Acid (Folic Acid) 1 mg PO DAILY [facility] Last Admin: 10/29/16 09:24 Dose: 1 mg Sodium Chloride (Sodium Chloride 0.9%) 1,000 mls @ 125 mls/hr IV .Q8H [facility] Last Admin: 10/30/16 04:00 Dose: 125 mls/hr Magnesium Sulfate 2 gm/ Sodium (Chloride) 104 mls @ 102 mls/hr IVPB ONCE ONE Stop: 10/30/16 12:07 Octreotide Acetate 1,250 mcg/ (Dextrose) 252.5 mls @ 5.05 mls/hr IV .Q24H [facility]; 25 MCG/HR PRN Reason: Protocol Ceftriaxone Sodium (Rocephin 2 Gm Ivpb) 2 gm in 100 mls @ 100 mls/hr IVPB DAILY [facility] PRN Reason: Protocol Metoclopramide HCl (Reglan) 10 mg IVP Q6H PRN PRN Reason: Other Last Admin: 10/25/16 00:41 Dose: 10 mg Midodrine (Proamatine) 5 mg PO TID [facility] Last Admin: 10/29/16 18:50 Dose: 5 mg Pantoprazole Sodium (Protonix Inj) 40 mg IVP Q12 [facility] Last Admin: 10/29/16 21:42 Dose: 40 mg Thiamine HCl (Vitamin B1 Tab) 100 mg PO DAILY [facility] Last Admin: 10/29/16 10:00 Dose: 100 mg Vitamin B Complex/Vit C/Folic Acid (Nephro-Mariann) 1 tab PO 0800 [facility] Last Admin: 10/29/16 08:21 Dose: 1 tab - Labs Labs: 10/30/16 06:30 10/30/16 06:30 PT 16.6 Seconds (9.9-11.8) H 10/27/16 05:30 INR 1.54 (0.93-1.08) H 10/27/16 05:30 APTT 35.0 Seconds (23.7-30.8) H 10/27/16 05:30 - Constitutional Appears: Well, Non-toxic, No Acute Distress - Eye Exam Eye Exam: EOMI - ENT Exam ENT Exam: Mucous Membranes Moist - Neck Exam Additional comments: +trach - Respiratory Exam Respiratory Exam: NORMAL BREATHING PATTERN Additional comments: decreased breath sounds on L - Cardiovascular Exam Cardiovascular Exam: RRR, +S1, +S2 - GI/Abdominal Exam GI & Abdominal Exam: Distended, Soft, Normal Bowel Sounds - Rectal Exam Rectal Exam: Bloody Stool - Extremities Exam Additional comments: anasarca Assessment and Plan - Assessment and Plan (Free Text) Assessment: Patient is 56yo male with end stage liver disease, with fungemia, +Pseudomonas sputum, chronically ill, vent dependent, with toxic metabolic encephalopathy. Respiratory Failure, s/p trach, vent dependent Fungemia EtOh abuse Chronic Liver disease Metabolic Encephalopathy Renal Failure Pseudomonas sputum C diff GIB, Anemia - currently afebrile, HD stable, comfortable, off pressors - remains vent dependent, fails weaning trials - remains confused, follows commands minimally, renal function stable - HH 5.4, plan to give2u PRBC - INR pending today - GI on the case Recommend: - cont with ventilatory support, with pressure support trials - abx as per ID - cont with midodrine - monitor HH, transfuse 2u PRBC - hold feeds - PPI drip - Octreotide drip - VitK IV - check INR, may require FFP - follow up GI, on the case - cont with IVF as per renal - GI ppx - DVT ppx, SCDs, NO HSQ 2/2 thrombocytopenia - group home planning, Ltach vs hospice - extremely poor prognosis
[2016-10-30 12:11] LABS: BASO # 0.03 K/mm3 (0.0-2.0); BASO % 0.1 % (0.0-3.0); EOS # 0.1 (0.0-0.7); EOS % 0.3 % (1.5-5.0); GRAN # 16.3 (1.4-6.5); GRAN % 78.2 % (50.0-68.0); HEMATOCRIT 26.5 % (42.0-52.0); LYMPH # 3.5 (1.2-3.4); LYMPH % 16.9 % (22.0-35.0); MEAN CELL VOLUME 87.7 fl (80.0-105.0); MEAN CORPUSCULAR HEMOGLOBIN 29.5 pg (25.0-35.0); MEAN CORPUSCULAR HGB CONC 33.6 g/dl (31.0-37.0); MEAN PLATELET VOLUME 10.9 fl (7.0-11.0); MONO # 0.9 (0.1-0.6); MONO % 4.5 % (1.0-6.0); RED CELL DISTRIBUTION WIDTH 17.3 % (11.5-14.5); WHITE BLOOD COUNT 20.8 10^3/ul (4.5-11.0)
[2016-10-30 12:25] LABS: INR 1.47 (0.93-1.08); PARTIAL THROMBOPLASTIN TIME 34.9 Seconds (23.7-30.8)
--- NOTE | 2016-10-30 14:13 | CP.PCM.PN ---
<Justo Torres - Last Filed: 10/30/16 14:22> Subjective - Date & Time of Evaluation Date of Evaluation: 10/30/16 Time of Evaluation: 14:11 - Subjective Subjective: Patient was seen and examined at bedside. Per nursing staff hemoglobin dropped to the low 5's so he currently is getting 2 units of PRBC's. No other acute events overnight. No change in clinical condition. ROS unobtainable due to patient's current clinical condition. Objective - Vital Signs/Intake and Output Vital Signs (last 24 hours): Temp Pulse Resp BP Pulse Ox 98.7 F 95 H 39 H 91/65 L 93 L 10/30/16 13:03 10/30/16 13:03 10/30/16 13:03 10/30/16 13:03 10/30/16 13:00 Intake and Output: 10/30/16 10/30/16 06:59 18:59 Intake Total 1820 5 Output Total 900 Balance 920 5 - Medications Medications: Current Medications Artificial Tears (Artificial Tears Opht Oint) 1 gm OU Q6 [facility] Last Admin: 10/30/16 05:17 Dose: 1 applic Bacitracin (Bacitracin) 0 gm TOP BID [facility] Last Admin: 10/29/16 12:14 Dose: 1 unit Folic Acid (Folic Acid) 1 mg PO DAILY [facility] Last Admin: 10/29/16 09:24 Dose: 1 mg Sodium Chloride (Sodium Chloride 0.9%) 1,000 mls @ 125 mls/hr IV .Q8H [facility] Last Admin: 10/30/16 04:00 Dose: 125 mls/hr Octreotide Acetate 1,250 mcg/ (Dextrose) 252.5 mls @ 5.05 mls/hr IV .Q24H [facility]; 25 MCG/HR PRN Reason: Protocol Ceftriaxone Sodium (Rocephin 2 Gm Ivpb) 2 gm in 100 mls @ 100 mls/hr IVPB DAILY [facility] PRN Reason: Protocol Metoclopramide HCl (Reglan) 10 mg IVP Q6H PRN PRN Reason: Other Last Admin: 10/25/16 00:41 Dose: 10 mg Midodrine (Proamatine) 5 mg PO TID [facility] Last Admin: 10/29/16 18:50 Dose: 5 mg Pantoprazole Sodium (Protonix Inj) 40 mg IVP Q12 [facility] Last Admin: 10/29/16 21:42 Dose: 40 mg Thiamine HCl (Vitamin B1 Tab) 100 mg PO DAILY [facility] Last Admin: 10/29/16 10:00 Dose: 100 mg Vitamin B Complex/Vit C/Folic Acid (Nephro-Mariann) 1 tab PO 0800 [facility] Last Admin: 10/29/16 08:21 Dose: 1 tab - Labs Labs: 10/30/16 12:01 10/30/16 06:30 PT 15.9 Seconds (9.9-11.8) H 10/30/16 12:01 INR 1.47 (0.93-1.08) H 10/30/16 12:01 APTT 34.9 Seconds (23.7-30.8) H 10/30/16 12:01 - Constitutional Appears: Toxic, Older Than Stated Age - Head Exam Head Exam: NORMAL INSPECTION, NORMOCEPHALIC - Eye Exam Eye Exam: Normal appearance, PERRL. absent: EOMI Pupil Exam: PERRL - ENT Exam ENT Exam: Mucous Membranes Moist - Neck Exam Neck Exam: Normal Inspection Additional comments: Trach placed. - Respiratory Exam Respiratory Exam: Clear to Ausculation Bilateral, NORMAL BREATHING PATTERN. absent: Accessory Muscle Use - Cardiovascular Exam Cardiovascular Exam: REGULAR RHYTHM, +S1, +S2. absent: Clicks, Gallop, Murmur - GI/Abdominal Exam GI & Abdominal Exam: Soft, Normal Bowel Sounds. absent: Rigid - Rectal Exam Additional comments: Rectal tube in place. - Extremities Exam Extremities Exam: Joint Swelling Additional comments: B/L UE Swelling - Back Exam Additional comments: Unstageable bed ulcers per nursing. - Neurological Exam Neurological Exam: absent: Alert, Awake, CN II-XII Intact - Skin Skin Exam: Mottled Assessment and Plan - Assessment and Plan (Free Text) Assessment: 56 year old male with an initial presentation of AMS in the setting of persistent hypokalemia and alcohol withdrawal, which resolved. Patient was then intubated after he was found to be in hypercapnic respiratory failure and subsequently became hemodynamically unstable requiring dual vasopressor support. His presentation is consistent with distributive shock likely from either acute decompensated chronic liver failure or sepsis from C. Diff colitis , with multiorgan dysfunction syndrome including renal failure, encephalopathy and respiratory failure. Patient is no longer requiring vasopressin or levophed for hemodynamic support but is on midodrine. Patient is currently unresponsive to verbal or tactile stimuli off of sedation. Patient is has been transitioned from PRVC to PS/CPAP Plan: Pulmonary: Hypercapnic Respiratory Failure -Patient intubated on 10/05. Today: FiO2= 60%, RR=30, PEEP+5, and Tidal Volume + 400 ml, O2 saturation+97% -ABG: pCO2+39, pO2+52, pH+7.3 -s/p Trach Day 8. -Patient hypotension slightly (93/59) and remains off pressors. -Cardio following -Repeat CXR shows no active pulmonary disease. -Continue to monitor vital signs. -Continue Duonebs 3ml IHQ6 HRESP for wheezing symptoms. -Currently being fed 10cc/hr. -G-tube placement put on hold indefinitely by surgery team. Will monitor closely. Renal: Acute renal failure most likely secondary to glomerulonephritis -BUN 83 and Creatinine is 1.9. Showing signs of improvement in SHAMAR. -Urine total protein-897 and Urine Microalbumin >950. -Nephrology consult note appreciated. -No acute indications for HD at this time. Urine output remains steady. -Nephrology consult note appreciate- Hematology: Thrombocytopenia -Plt count now 68 s/p 4 units of Platelets transfused. Trending down. Continue to monitor plt count and consider another transfusion if patient drops below 20. -Patient currently has no active bleeds. Monitor for bleeding. EtOh Withdrawal -Continue Ativan 2mg IVP Q2H PRN for alcohol withdrawal symptoms. -Continue Thiamine, Folic acid and MV supplementation Ascites -s/p ascitic fluid removed on 10/05. -culture growth negative after 6 days. -MELDS score of 20: 19.3% Mortality risk in 3 month time period. GI: Hepatic encephalopathy -Continue Lactulose 20 mg BID TONI. -Rectal tube in place and currently draining 2800 ml. -Scheduled to have gastrostomy tube placed today by Dr. Ronquillo. Procedure on hold indefinitely until more clinically stable. Anemia -Stool occult blood positive on 10/05. -Hgb is low 5's today. Patient transfused 2 units of PRBC's. Patient is s/p 9 units leukocyte reduced PRBC's. Continue to monitor H/H levels with serial CBC' s. Consider Transfusion if Hgb falls below 7. Sepsis/Fungemia -Grew Kamille Albicans -Sputum culture grew Pseudomonas Aeurgin[place]. -Continue Micafungin (renal dosing) - Will continue to monitor closely. -Merrem, Vancomycin completed. Will monitor closely for signs of infection. C Diff infection. -Vancomycin completed. -Repeat stool sample negative. Continue to monitor closely. Hypokalemia - Will continue to replete as needed. Will continue to monitor electrolyte levels with serial cmp's. GI ppx -Continue Protonix DVT ppx. <Patrica Bingham - Last Filed: 10/31/16 08:12> Objective - Vital Signs/Intake and Output Vital Signs (last 24 hours): Temp Pulse Resp BP Pulse Ox 99.4 F 106 H 33 H 85/50 L 96 10/31/16 04:00 10/31/16 06:00 10/31/16 06:00 10/31/16 06:00 10/31/16 06:00 Intake and Output: 10/31/16 10/31/16 06:59 18:59 Intake Total 1500 Output Total 350 Balance 1150 - Medications Medications: Current Medications Artificial Tears (Artificial Tears Opht Oint) 1 gm OU Q6 [facility] Last Admin: 10/31/16 05:40 Dose: 1 applic Bacitracin (Bacitracin) 0 gm TOP BID [facility] Last Admin: 10/30/16 18:30 Dose: 1 unit Folic Acid (Folic Acid) 1 mg PO DAILY [facility] Last Admin: 10/30/16 16:33 Dose: 1 mg Sodium Chloride (Sodium Chloride 0.9%) 1,000 mls @ 125 mls/hr IV .Q8H [facility] Last Admin: 10/30/16 19:00 Dose: 125 mls/hr Ceftriaxone Sodium (Rocephin 2 Gm Ivpb) 2 gm in 100 mls @ 100 mls/hr IVPB DAILY [facility] PRN Reason: Protocol Last Admin: 10/30/16 16:21 Dose: 100 mls/hr Octreotide Acetate 1,250 mcg/ (Dextrose) 252.5 mls @ 10.1 mls/hr IV .Q24H [facility]; 50 MCG/HR PRN Reason: Protocol Last Admin: 10/30/16 20:10 Dose: 50 mcg/hr, 10.1 mls/hr Metoclopramide HCl (Reglan) 10 mg IVP Q6H PRN PRN Reason: Other Last Admin: 10/25/16 00:41 Dose: 10 mg Midodrine (Proamatine) 5 mg PO TID [facility] Last Admin: 10/30/16 16:33 Dose: 5 mg Pantoprazole Sodium (Protonix Inj) 40 mg IVP Q12 [facility] Last Admin: 10/30/16 22:00 Dose: 40 mg Thiamine HCl (Vitamin B1 Tab) 100 mg PO DAILY [facility] Last Admin: 10/30/16 16:33 Dose: 100 mg Vitamin B Complex/Vit C/Folic Acid (Nephro-Mariann) 1 tab PO 0800 [facility] Last Admin: 10/30/16 16:33 Dose: 1 tab - Labs Labs: 10/31/16 05:20 10/31/16 05:20 PT 15.5 Seconds (9.9-11.8) H 10/31/16 05:20 INR 1.44 (0.93-1.08) H 10/31/16 05:20 APTT 39.3 Seconds (23.7-30.8) H 10/31/16 05:20 Attending/Attestation - Attestation I have personally seen and examined this patient.: Yes I have fully participated in the care of the patient.: Yes I have reviewed all pertinent clinical information, including history, physical exam and plan: Yes Notes (Text): 10/30/16 56 year old male with past medical history of alcohol abuse who presented with alcohol withdrawal. Hospital course was complicated with respiratory failure s/p intubation now s/p trach, hemodynamic instability requiring vasopressor support, fungemia/sepsis on iv antibiotics, MODS/shock liver. Currently he has severe anemia and thrombocytpenia requiring PRBC transfusions. GI follow up is requested. Nephrology is following for renal failure. Will repeat Cdif study given significant leukocytosis. Plan for g-tube placement is currently on hold due to have. Prognosis is poor. Patrica Bingham MD Hospitalist.
[2016-10-30] MEDS: cefTRIAXone 2 GM IN NS 2 GM/100 ML BAG IVPB SCH (16:21)
[2016-10-30] MEDS: Multivitamin Vitamin B Complex (Nephro-Vite) Tab PO SCH (16:33)
[2016-10-30 18:16] LABS: BASO # 0.03 K/mm3 (0.0-2.0); BASO % 0.1 % (0.0-3.0); EOS % 0.1 % (1.5-5.0); GRAN # 29.01 (1.4-6.5); GRAN % 83.2 % (50.0-68.0); HEMATOCRIT 31.7 % (42.0-52.0); LYMPH # 4.6 (1.2-3.4); LYMPH % 13.2 % (22.0-35.0); MEAN CELL VOLUME 89.3 fl (80.0-105.0); MEAN CORPUSCULAR HEMOGLOBIN 30.1 pg (25.0-35.0); MEAN CORPUSCULAR HGB CONC 33.8 g/dl (31.0-37.0); MEAN PLATELET VOLUME 12.4 fl (7.0-11.0); MONO # 1.2 (0.1-0.6); MONO % 3.4 % (1.0-6.0); RED CELL DISTRIBUTION WIDTH 17.4 % (11.5-14.5)
[2016-10-30 18:24] LABS: ALB/GLOB RATIO 0.6 (1.1-1.8); BILIRUBIN,TOTAL 1.9 mg/dL (0.2-1.3); TOTAL PROTEIN 4.4 g/dL (5.8-8.3); WHITE BLOOD COUNT 34.8 10^3/ul (4.5-11.0)
[2016-10-30 18:54] LABS: POTASSIUM 3.7 mmol/L (3.6-5.0)
[2016-10-30] MEDS: Octreotide 1,250 MCG in Dextrose 5% In Water 250 ML IV SCH (20:10)
[2016-10-30] MEDS ORDERED: Potassium Chloride 40 mEq/30 ml LIQ UD PO ONE (20:45)
--- NOTE | 2016-10-30 21:43 | CP.PCM.PN ---
Subjective - Date & Time of Evaluation Date of Evaluation: 10/30/16 Time of Evaluation: 11:00 - Subjective Subjective: blood in stool; Objective - Vital Signs/Intake and Output Vital Signs (last 24 hours): Temp Pulse Resp BP Pulse Ox 98.5 F 110 H 35 H 93/55 L 96 10/30/16 14:40 10/30/16 16:00 10/30/16 14:40 10/30/16 16:00 10/30/16 16:00 Intake and Output: 10/30/16 10/31/16 18:59 06:59 Intake Total 1260 Output Total 1300 Balance -40 - Medications Medications: Current Medications Artificial Tears (Artificial Tears Opht Oint) 1 gm OU Q6 [facility] Last Admin: 10/30/16 12:00 Dose: 1 applic Bacitracin (Bacitracin) 0 gm TOP BID [facility] Last Admin: 10/30/16 18:30 Dose: 1 unit Folic Acid (Folic Acid) 1 mg PO DAILY [facility] Last Admin: 10/30/16 16:33 Dose: 1 mg Sodium Chloride (Sodium Chloride 0.9%) 1,000 mls @ 125 mls/hr IV .Q8H [facility] Last Admin: 10/30/16 19:00 Dose: 125 mls/hr Ceftriaxone Sodium (Rocephin 2 Gm Ivpb) 2 gm in 100 mls @ 100 mls/hr IVPB DAILY [facility] PRN Reason: Protocol Last Admin: 10/30/16 16:21 Dose: 100 mls/hr Octreotide Acetate 1,250 mcg/ (Dextrose) 252.5 mls @ 10.1 mls/hr IV .Q24H [facility]; 50 MCG/HR PRN Reason: Protocol Last Admin: 10/30/16 20:10 Dose: 50 mcg/hr, 10.1 mls/hr Metoclopramide HCl (Reglan) 10 mg IVP Q6H PRN PRN Reason: Other Last Admin: 10/25/16 00:41 Dose: 10 mg Midodrine (Proamatine) 5 mg PO TID [facility] Last Admin: 10/30/16 16:33 Dose: 5 mg Pantoprazole Sodium (Protonix Inj) 40 mg IVP Q12 [facility] Last Admin: 10/30/16 16:22 Dose: 40 mg Thiamine HCl (Vitamin B1 Tab) 100 mg PO DAILY [facility] Last Admin: 10/30/16 16:33 Dose: 100 mg Vitamin B Complex/Vit C/Folic Acid (Nephro-Mariann) 1 tab PO 0800 [facility] Last Admin: 10/30/16 16:33 Dose: 1 tab - Labs Labs: 10/30/16 18:12 10/30/16 18:12 PT 15.9 Seconds (9.9-11.8) H 10/30/16 12:01 INR 1.47 (0.93-1.08) H 10/30/16 12:01 APTT 34.9 Seconds (23.7-30.8) H 10/30/16 12:01 - Respiratory Exam Additional comments: tachypneic Assessment and Plan (1) Acute renal failure Assessment & Plan: multifactorial, continue IVF Status: Acute (2) Acute hypercapnic respiratory failure Status: Acute (3) Hypokalemia Status: Acute (4) SIRS (systemic inflammatory response syndrome) Status: Acute (5) Hypernatremia Status: Acute
[2016-10-31] MEDS: Mineral Oil/Petrolatum Opht Oint(3.5 gm) OU SCH ×4 (05:40→17:34)
--- NOTE | 2016-10-31 06:50 | CP.CCUPN ---
CCU Subjective - Physician Review Subjective (Free Text): 10/31/16 06:48 Patient seen and examined at bedside in the ICU. CCU Objective - Vital Signs / Intake & Output Vital Signs (Last 4 hours): Vital Signs Temp Pulse Resp BP Pulse Ox 10/31/16 06:00 106 H 33 H 85/50 L 96 10/31/16 05:00 111 H 24 105/46 L 10/31/16 04:00 99.4 F 106 H 35 H 90/34 L 99 10/31/16 03:00 107 H 32 H 85/51 L 97 Intake and Output (Last 8hrs): Intake & Output 10/30/16 10/30/16 10/31/16 14:59 22:59 06:59 Intake Total 10 1250 1500 Output Total 1300 350 Balance 10 -50 1150 Weight 97.522 kg Intake: IV 600 1500 Right Upper arm 600 saline 1500 Oral 0 Blood Product 10 650 Red Blood Cells Cpd As1 5 Lr Unit [id number] Red Blood Cells Cpd As1 5 Lr Unit [id number] Output: Urine 200 50 Urethral (Vyas) 200 50 Stool 1100 300 - Physical Exam Head: Positive for: Atraumatic, Normocephalic Pupils: Positive for: PERRL Extroacular Muscles: Positive for: EOMI Conjunctiva: Positive for: Normal Ears: Positive for: Normal Mouth: Positive for: Moist Mucous Membranes Nose (External): Positive for: Atraumatic Nose (Internal): Positive for: Other Neck: Positive for: Normal Range of Motion, Trachea Midline, Other ( Tracheostomy insertion site without signs of infection). Negative for: Lymphadenopathy Respiratory/Chest: Positive for: Clear to Auscultation, Good Air Exchange, Tachypneic, Other (Mechanical ventilation). Negative for: Respiratory Distress , Accessory Muscle Use, Wheezes, Decreased Breath Sounds, Retracting, Rhonchi Cardiovascular: Positive for: Regular Rate and Rhythm, Normal S1, S2. Negative for: Murmurs Abdomen: Positive for: Normal Bowel Sounds, Other (Paracentesis site with sutures, no signs of infection, dressing clean, dry and intact; rectal tube draining melena). Negative for: Tenderness, Distention, Peritoneal Signs Genitourinary Male: Positive for: Other (Vyas in place, no signs of infection) . Negative for: Testicle Swelling Back: Positive for: Normal Inspection Upper Extremity: Positive for: Edema (1+ pitting edema B/L UE). Negative for: Normal Inspection (Multiple areas of ecchymoses), Cyanosis Lower Extremity: Positive for: Edema (1+ Pitting edema B/L up to thighs). Negative for: Normal Inspection Neurological: Positive for: Other (Gag and corneal reflex intact; ability to track motion with eyes intact). Negative for: GCS=15 (GCS of 3T), CN II-XII Intact, Speech Normal Skin: Positive for: Warm, Other (Area of erythema on the presacral area of the lower back measuring approximately 2-3cm with no skin ulceration; currently unstageable ). Negative for: Rashes, Normal Color (multiple ecchymoses over UE B/L) Psychiatric: Negative for: Alert (arousable to tactile stimuli), Oriented x 3, Normal Insight, Normal Concentration - Medications Active Medications: Active Medications Generic Name Dose Route Start Last Admin Trade Name Freq PRN Reason Stop Dose Admin Artificial Tears 1 gm 10/10/16 18:00 10/31/16 05:40 Artificial Tears Opht Oint OU 1 applic Q6 TONI Administration Bacitracin 0 gm 10/28/16 18:00 10/30/16 18:30 Bacitracin TOP 1 unit BID TONI Administration Folic Acid 1 mg 10/03/16 10:00 10/30/16 16:33 Folic Acid PO 1 mg DAILY TONI Administration Sodium Chloride 1,000 mls @ 125 mls/hr 10/29/16 11:15 10/30/16 19:00 Sodium Chloride 0.9% IV 125 mls/hr .Q8H TONI Administration Ceftriaxone Sodium 2 gm in 100 mls @ 100 mls/hr 10/30/16 11:15 10/30/16 16:21 Rocephin 2 Gm Ivpb IVPB 100 mls/hr DAILY TONI Administration Protocol Octreotide Acetate 1,250 mcg/ 252.5 mls @ 10.1 mls/hr 10/30/16 19:31 20:10 Dextrose IV 50 mcg/hr .Q24H TONI 10.1 mls/hr Protocol Administration 50 MCG/HR Metoclopramide HCl 10 mg 10/09/16 16:56 10/25/16 00:41 Reglan IVP 10 mg Q6H PRN Administration Other Midodrine 5 mg 10/09/16 10:00 10/30/16 16:33 Proamatine PO 5 mg TID TONI Administration Pantoprazole Sodium 40 mg 10/24/16 10:00 10/30/16 22:00 Protonix Inj IVP 40 mg Q12 TONI Administration Thiamine HCl 100 mg 10/03/16 10:00 10/30/16 16:33 Vitamin B1 Tab PO 100 mg DAILY TONI Administration Vitamin B Complex/Vit C/Folic Acid 1 tab 10/03/16 08:00 10/30/16 16:33 Nephro-Mariann PO 1 tab 0800 TONI Administration - Patient Studies Lab Studies: Lab Studies 10/30/16 10/30/16 10/30/16 Range/Units 18:12 18:12 12:01 WBC 34.8 H* D 20.8 H D (4.5-11.0) 10^3/ul RBC 3.55 3.02 L (3.5-6.1) 10^6/uL Hgb 10.7 L 8.9 L D (14.0-18.0) g/dL Hct 31.7 L 26.5 L (42.0-52.0) % MCV 89.3 87.7 (80.0-105.0) fl MCH 30.1 29.5 (25.0-35.0) pg MCHC 33.8 33.6 (31.0-37.0) g/dl RDW 17.4 H 17.3 H (11.5-14.5) % Plt Count 115 L 92 L (120.0-450.0) 10^3/uL MPV 12.4 H 10.9 (7.0-11.0) fl Gran % 83.2 H 78.2 H (50.0-68.0) % Lymph % (Auto) 13.2 L 16.9 L (22.0-35.0) % Crenshaw % (Auto) 3.4 4.5 (1.0-6.0) % Eos % (Auto) 0.1 L 0.3 L (1.5-5.0) % Baso % (Auto) 0.1 0.1 (0.0-3.0) % Gran # 29.01 H 16.30 H (1.4-6.5) Lymph # 4.6 H 3.5 H (1.2-3.4) Crenshaw # 1.2 H 0.9 H (0.1-0.6) Eos # 0.0 0.1 (0.0-0.7) Baso # 0.03 0.03 (0.0-2.0) K/mm3 PT (9.9-11.8) Seconds INR (0.93-1.08) APTT (23.7-30.8) Seconds Sodium 144 (132-148) mmol/L Potassium 3.7 (3.6-5.0) mmol/L Chloride 117 H (98-107) mmol/L Carbon Dioxide 16 L (21-33) mmol/L Anion Gap 128 H (10-20) BUN 78 H (7-21) mg/dL Creatinine 2.1 H (0.5-1.4) mg/dL Est GFR ( Amer) 40 Est GFR (Non-Af Amer) 33 Random Glucose 84 (70-110) mg/dL Calcium 7.0 L (8.4-10.5) mg/dL Phosphorus 7.0 H (2.5-4.5) mg/dL Magnesium (1.7-2.2) mg/dL Total Bilirubin 1.9 H (0.2-1.3) mg/dL AST 88 H (17-59) U/L ALT 76 H (7-56) U/L Alkaline Phosphatase 89 (38-126) U/L Total Protein 4.4 L (5.8-8.3) g/dL Albumin 1.6 L (3.0-4.8) g/dL Globulin 2.8 gm/dL Albumin/Globulin Ratio 0.6 L (1.1-1.8) Blood Type Antibody Screen Crossmatch BBK History Checked 10/30/16 10/30/16 10/30/16 Range/Units 12:01 06:30 06:30 WBC 12.7 H (4.5-11.0) 10^3/ul RBC 1.88 L (3.5-6.1) 10^6/uL Hgb 5.6 L* (14.0-18.0) g/dL Hct 16.8 L* (42.0-52.0) % MCV 89.4 (80.0-105.0) fl MCH 29.8 (25.0-35.0) pg MCHC 33.3 (31.0-37.0) g/dl RDW 18.0 H (11.5-14.5) % Plt Count 68 L (120.0-450.0) 10^3/uL MPV 12.1 H (7.0-11.0) fl Gran % 76.5 H (50.0-68.0) % Lymph % (Auto) 18.4 L (22.0-35.0) % Crenshaw % (Auto) 4.6 (1.0-6.0) % Eos % (Auto) 0.4 L (1.5-5.0) % Baso % (Auto) 0.1 (0.0-3.0) % Gran # 9.69 H (1.4-6.5) Lymph # 2.3 (1.2-3.4) Crenshaw # 0.6 (0.1-0.6) Eos # 0.1 (0.0-0.7) Baso # 0.01 (0.0-2.0) K/mm3 PT 15.9 H (9.9-11.8) Seconds INR 1.47 H (0.93-1.08) APTT 34.9 H (23.7-30.8) Seconds Sodium 143 (132-148) mmol/L Potassium 3.4 L (3.6-5.0) mmol/L Chloride 118 H (98-107) mmol/L Carbon Dioxide 15 L (21-33) mmol/L Anion Gap 13 (10-20) BUN 78 H (7-21) mg/dL Creatinine 1.9 H (0.5-1.4) mg/dL Est GFR ( Amer) 45 Est GFR (Non-Af Amer) 37 Random Glucose 88 (70-110) mg/dL Calcium 6.8 L* (8.4-10.5) mg/dL Phosphorus 6.2 H (2.5-4.5) mg/dL Magnesium 1.7 (1.7-2.2) mg/dL Total Bilirubin (0.2-1.3) mg/dL AST (17-59) U/L ALT (7-56) U/L Alkaline Phosphatase (38-126) U/L Total Protein (5.8-8.3) g/dL Albumin (3.0-4.8) g/dL Globulin gm/dL Albumin/Globulin Ratio (1.1-1.8) Blood Type Antibody Screen Crossmatch BBK History Checked 10/29/16 Range/Units 11:20 WBC (4.5-11.0) 10^3/ul RBC (3.5-6.1) 10^6/uL Hgb (14.0-18.0) g/dL Hct (42.0-52.0) % MCV (80.0-105.0) fl MCH (25.0-35.0) pg MCHC (31.0-37.0) g/dl RDW (11.5-14.5) % Plt Count (120.0-450.0) 10^3/uL MPV (7.0-11.0) fl Gran % (50.0-68.0) % Lymph % (Auto) (22.0-35.0) % Crenshaw % (Auto) (1.0-6.0) % Eos % (Auto) (1.5-5.0) % Baso % (Auto) (0.0-3.0) % Gran # (1.4-6.5) Lymph # (1.2-3.4) Crenshaw # (0.1-0.6) Eos # (0.0-0.7) Baso # (0.0-2.0) K/mm3 PT (9.9-11.8) Seconds INR (0.93-1.08) APTT (23.7-30.8) Seconds Sodium (132-148) mmol/L Potassium (3.6-5.0) mmol/L Chloride (98-107) mmol/L Carbon Dioxide (21-33) mmol/L Anion Gap (10-20) BUN (7-21) mg/dL Creatinine (0.5-1.4) mg/dL Est GFR ( Amer) Est GFR (Non-Af Amer) Random Glucose (70-110) mg/dL Calcium (8.4-10.5) mg/dL Phosphorus (2.5-4.5) mg/dL Magnesium (1.7-2.2) mg/dL Total Bilirubin (0.2-1.3) mg/dL AST (17-59) U/L ALT (7-56) U/L Alkaline Phosphatase (38-126) U/L Total Protein (5.8-8.3) g/dL Albumin (3.0-4.8) g/dL Globulin gm/dL Albumin/Globulin Ratio (1.1-1.8) Blood Type O POSITIVE Antibody Screen Negative Crossmatch See Detail BBK History Checked Patient has bt Laboratory Results - last 24 hr 10/29/16 10/30/16 10/30/16 11:20 06:30 06:30 WBC 12.7 H RBC 1.88 L Hgb 5.6 L* Hct 16.8 L* MCV 89.4 MCH 29.8 MCHC 33.3 RDW 18.0 H Plt Count 68 L MPV 12.1 H Gran % 76.5 H Lymph % (Auto) 18.4 L Crenshaw % (Auto) 4.6 Eos % (Auto) 0.4 L Baso % (Auto) 0.1 Gran # 9.69 H Lymph # 2.3 Crenshaw # 0.6 Eos # 0.1 Baso # 0.01 PT INR APTT Sodium 143 Potassium 3.4 L Chloride 118 H Carbon Dioxide 15 L Anion Gap 13 BUN 78 H Creatinine 1.9 H Est GFR ( Amer) 45 Est GFR (Non-Af Amer) 37 Random Glucose 88 Calcium 6.8 L* Phosphorus 6.2 H Magnesium 1.7 Total Bilirubin AST ALT Alkaline Phosphatase Total Protein Albumin Globulin Albumin/Globulin Ratio Blood Type O POSITIVE Antibody Screen Negative Crossmatch See Detail BBK History Checked Patient has bt 10/30/16 10/30/16 10/30/16 12:01 12:01 18:12 WBC 20.8 H D 34.8 H* D RBC 3.02 L 3.55 Hgb 8.9 L D 10.7 L Hct 26.5 L 31.7 L MCV 87.7 89.3 MCH 29.5 30.1 MCHC 33.6 33.8 RDW 17.3 H 17.4 H Plt Count 92 L 115 L MPV 10.9 12.4 H Gran % 78.2 H 83.2 H Lymph % (Auto) 16.9 L 13.2 L Crenshaw % (Auto) 4.5 3.4 Eos % (Auto) 0.3 L 0.1 L Baso % (Auto) 0.1 0.1 Gran # 16.30 H 29.01 H Lymph # 3.5 H 4.6 H Crenshaw # 0.9 H 1.2 H Eos # 0.1 0.0 Baso # 0.03 0.03 PT 15.9 H INR 1.47 H APTT 34.9 H Sodium Potassium Chloride Carbon Dioxide Anion Gap BUN Creatinine Est GFR ( Amer) Est GFR (Non-Af Amer) Random Glucose Calcium Phosphorus Magnesium Total Bilirubin AST ALT Alkaline Phosphatase Total Protein Albumin Globulin Albumin/Globulin Ratio Blood Type Antibody Screen Crossmatch BBK History Checked 10/30/16 18:12 WBC RBC Hgb Hct MCV MCH MCHC RDW Plt Count MPV Gran % Lymph % (Auto) Crenshaw % (Auto) Eos % (Auto) Baso % (Auto) Gran # Lymph # Crenshaw # Eos # Baso # PT INR APTT Sodium 144 Potassium 3.7 Chloride 117 H Carbon Dioxide 16 L Anion Gap 128 H BUN 78 H Creatinine 2.1 H Est GFR ( Amer) 40 Est GFR (Non-Af Amer) 33 Random Glucose 84 Calcium 7.0 L Phosphorus 7.0 H Magnesium Total Bilirubin 1.9 H AST 88 H ALT 76 H Alkaline Phosphatase 89 Total Protein 4.4 L Albumin 1.6 L Globulin 2.8 Albumin/Globulin Ratio 0.6 L Blood Type Antibody Screen Crossmatch BBK History Checked Fingerstick Blood Sugar Results: 105
[2016-10-31 07:01] LABS: BASO # 0.03 K/mm3 (0.0-2.0); BASO % 0.1 % (0.0-3.0); GRAN # 23.34 (1.4-6.5); HEMATOCRIT 28.2 % (42.0-52.0); LYMPH # 3.6 (1.2-3.4); LYMPH % 12.8 % (22.0-35.0); MEAN CELL VOLUME 91.9 fl (80.0-105.0); MEAN CORPUSCULAR HEMOGLOBIN 29.6 pg (25.0-35.0); MEAN CORPUSCULAR HGB CONC 32.3 g/dl (31.0-37.0); MEAN PLATELET VOLUME 11.9 fl (7.0-11.0); MONO # 0.9 (0.1-0.6); MONO % 3.1 % (1.0-6.0); RED CELL DISTRIBUTION WIDTH 18.4 % (11.5-14.5)
[2016-10-31 07:02] LABS: INR 1.44 (0.93-1.08); PARTIAL THROMBOPLASTIN TIME 39.3 Seconds (23.7-30.8)
[2016-10-31 07:30] LABS: WHITE BLOOD COUNT 27.8 10^3/ul (4.5-11.0)
[2016-10-31 07:34] LABS: ALB/GLOB RATIO 0.6 (1.1-1.8); BILIRUBIN,TOTAL 1.6 mg/dL (0.2-1.3); POTASSIUM 3.6 mmol/L (3.6-5.0); TOTAL PROTEIN 3.9 g/dL (5.8-8.3)
[2016-10-31 08:44] VITALS: RESP 35
--- NOTE | 2016-10-31 09:52 | CP.PCM.PN ---
Subjective - Date & Time of Evaluation Date of Evaluation: 10/31/16 Time of Evaluation: 09:00 - Subjective Subjective: Patient continues to have bloody stools through rectal tube, still on the ventilator, no fevers overnight. Objective - Vital Signs/Intake and Output Vital Signs (last 24 hours): Temp Pulse Resp BP Pulse Ox 99.4 F 106 H 33 H 85/50 L 96 10/31/16 04:00 10/31/16 06:00 10/31/16 06:00 10/31/16 06:00 10/31/16 06:00 Intake and Output: 10/30/16 10/31/16 18:59 06:59 Intake Total 1260 1500 Output Total 1300 350 Balance -40 1150 - Medications Medications: Current Medications Artificial Tears (Artificial Tears Opht Oint) 1 gm OU Q6 [facility] Last Admin: 10/31/16 05:40 Dose: 1 applic Bacitracin (Bacitracin) 0 gm TOP BID TONI Last Admin: 10/30/16 18:30 Dose: 1 unit Folic Acid (Folic Acid) 1 mg PO DAILY TONI Last Admin: 10/30/16 16:33 Dose: 1 mg Sodium Chloride (Sodium Chloride 0.9%) 1,000 mls @ 125 mls/hr IV .Q8H TONI Last Admin: 10/30/16 19:00 Dose: 125 mls/hr Ceftriaxone Sodium (Rocephin 2 Gm Ivpb) 2 gm in 100 mls @ 100 mls/hr IVPB DAILY TONI PRN Reason: Protocol Last Admin: 10/30/16 16:21 Dose: 100 mls/hr Octreotide Acetate 1,250 mcg/ (Dextrose) 252.5 mls @ 10.1 mls/hr IV .Q24H TONI; 50 MCG/HR PRN Reason: Protocol Last Admin: 10/30/16 20:10 Dose: 50 mcg/hr, 10.1 mls/hr Metoclopramide HCl (Reglan) 10 mg IVP Q6H PRN PRN Reason: Other Last Admin: 10/25/16 00:41 Dose: 10 mg Midodrine (Proamatine) 5 mg PO TID TONI Last Admin: 10/30/16 16:33 Dose: 5 mg Pantoprazole Sodium (Protonix Inj) 40 mg IVP Q12 TONI Last Admin: 10/30/16 22:00 Dose: 40 mg Thiamine HCl (Vitamin B1 Tab) 100 mg PO DAILY [facility] Last Admin: 10/30/16 16:33 Dose: 100 mg Vitamin B Complex/Vit C/Folic Acid (Nephro-Mariann) 1 tab PO 0800 [facility] Last Admin: 10/30/16 16:33 Dose: 1 tab - Labs Labs: 10/30/16 18:12 10/30/16 18:12 PT 15.9 Seconds (9.9-11.8) H 10/30/16 12:01 INR 1.47 (0.93-1.08) H 10/30/16 12:01 APTT 34.9 Seconds (23.7-30.8) H 10/30/16 12:01 - Constitutional Appears: Other (on the ventilator, lethargic) - Head Exam Head Exam: NORMAL INSPECTION - Neck Exam Neck Exam: absent: Meningismus Additional comments: tracheostomy tube in place - Respiratory Exam Respiratory Exam: Decreased Breath Sounds - Cardiovascular Exam Cardiovascular Exam: +S1, +S2 - GI/Abdominal Exam GI & Abdominal Exam: Soft. absent: Tenderness Assessment and Plan - Assessment and Plan (Free Text) Plan: Assessment S/P severe sepsis with ventilator-dependent respiratory failure (now with tracheostomy), respiratory acidosis and acute renal failure probably due to probable right sided and healthcare-associated pneumonia with Pseudomonas acute rectal GI bleeding, etiology to be determined S/P C. albicans fungemia S/P C. diff. colitis liver cirrhosis probably from alcohol abuse; S/P paracentesis; initially presented with delerium tremens;chronic alcohol abuse with history of liver cirrhosis and esophageal varices significant smoking history Plan S/P Merrem (11 days for the the Pseudomonas in the sputum); on aerosolized tobramycin (day 8) to complete 7-10 days of therapy; S/P 14 days of PO Vancomycin (day 14) S/P Mycamine, had 16 days of therapy (repeat blood cx on 10/08/2016 are negative - patient had Ophtho evaluation 2 weeks ago and no endophthalmitis was seen) will continue to follow clinically GI following for the rectal bleeding - may need prophylactic antibiotics if this is esophageal bleeding - to discuss with GI patient continues to be in critical condition and overall prognosis is poor - patient is DNR awaiting PEG tube placement
[2016-10-31] MEDS: Multivitamin Vitamin B Complex (Nephro-Vite) Tab PO SCH (10:29)
[2016-10-31] MEDS: cefTRIAXone 2 GM IN NS 2 GM/100 ML BAG IVPB SCH (10:30)
[2016-10-31] MEDS: Bacitracin Ointment 30 GM TUBE TOP SCH ×2 (10:30→17:35)
[2016-10-31] MEDS ORDERED: Sodium Chloride 0.9% 1,000 ML IV SCH (10:52)
--- NOTE | 2016-10-31 13:09 | PN ---
The patient was seen on rounds. I had a long discussion with the yesterday. He is not making much progress. He continues to bleed actively. His blood pressure is somewhere between 85 and 100. His pulse is 110. He is actively bleeding in the rectal tube. He has received so far total of 12 units of packed cells and platelets and 3 of FFP. I do not think he would survive an operation and we will not acutely follow. I understand he is DNR/DNI now and I think the family is close to making him a hospice, but certainly, I would find agreeable. I will follow peripherally, please recall if necessary. Adrian Ronquillo MD
--- NOTE | 2016-10-31 13:18 | CP.PCM.PN ---
<Justo Torres - Last Filed: 11/02/16 19:36> Subjective - Date & Time of Evaluation Date of Evaluation: 10/31/16 Time of Evaluation: 07:15 - Subjective Subjective: Patient was seen and examined at bedside. Per nursing no acute events occurred overnight. Patient continues to be unresponsive to stimuli.. ROS unable to be obtained due to current clinical condition. Objective - Vital Signs/Intake and Output Vital Signs (last 24 hours): Temp Pulse Resp BP Pulse Ox 99.4 F 99 H 35 H 83/44 L 100 10/31/16 04:00 10/31/16 12:00 10/31/16 08:43 10/31/16 12:00 10/31/16 12:00 Intake and Output: 10/31/16 10/31/16 06:59 18:59 Intake Total 1500 Output Total 350 Balance 1150 - Medications Medications: Current Medications Artificial Tears (Artificial Tears Opht Oint) 1 gm OU Q6 TONI Last Admin: 10/31/16 05:40 Dose: 1 applic Bacitracin (Bacitracin) 0 gm TOP BID TONI Last Admin: 10/31/16 10:30 Dose: 1 applic Ceftriaxone Sodium (Rocephin 2 Gm Ivpb) 2 gm in 100 mls @ 100 mls/hr IVPB DAILY TONI PRN Reason: Protocol Last Admin: 10/31/16 10:30 Dose: 100 mls/hr Octreotide Acetate 1,250 mcg/ (Dextrose) 252.5 mls @ 10.1 mls/hr IV .Q24H TONI; 50 MCG/HR PRN Reason: Protocol Last Admin: 10/30/16 20:10 Dose: 50 mcg/hr, 10.1 mls/hr Sodium Chloride (Sodium Chloride 0.9%) 1,000 mls @ 160 mls/hr IV .Q6H15M TONI Dextrose (Dextrose 5% In Water 1000 Ml) 1,000 mls @ 60 mls/hr IV .[id number] TONI Last Admin: 10/31/16 12:39 Dose: Not Given Potassium Chloride (Potassium Chloride 20 Meq/100 Ml) 20 meq in 100 mls @ 50 mls/hr IVPB Q2H TONI Stop: 10/31/16 16:59 Metoclopramide HCl (Reglan) 10 mg IVP Q6H PRN PRN Reason: Other Last Admin: 10/25/16 00:41 Dose: 10 mg Midodrine (Proamatine) 10 mg PO TID [facility] Pantoprazole Sodium (Protonix Inj) 40 mg IVP Q12 [facility] Last Admin: 10/31/16 10:29 Dose: 40 mg - Labs Labs: 10/31/16 05:20 10/31/16 05:20 PT 15.5 Seconds (9.9-11.8) H 10/31/16 05:20 INR 1.44 (0.93-1.08) H 10/31/16 05:20 APTT 39.3 Seconds (23.7-30.8) H 10/31/16 05:20 - Constitutional Appears: Toxic, Older Than Stated Age, Cachectic - Head Exam Head Exam: ATRAUMATIC, NORMAL INSPECTION, NORMOCEPHALIC - Eye Exam Eye Exam: Normal appearance, PERRL Pupil Exam: absent: Irregular, NORMAL ACCOMODATION - ENT Exam ENT Exam: Mucous Membranes Moist - Neck Exam Additional comments: Trach placed. - Respiratory Exam Respiratory Exam: Clear to Ausculation Bilateral, NORMAL BREATHING PATTERN. absent: Accessory Muscle Use, Decreased Breath Sounds - Cardiovascular Exam Cardiovascular Exam: REGULAR RHYTHM, RRR, +S1, +S2. absent: Gallop, Rubs - GI/Abdominal Exam GI & Abdominal Exam: Soft, Normal Bowel Sounds. absent: Rigid, Tenderness - Extremities Exam Extremities Exam: absent: Full ROM - Back Exam Back Exam: absent: NORMAL INSPECTION, paraspinal tenderness Assessment and Plan - Assessment and Plan (Free Text) Assessment: 56 year old male with an initial presentation of AMS in the setting of persistent hypokalemia and alcohol withdrawal, which resolved. Patient was then intubated after he was found to be in hypercapnic respiratory failure and subsequently became hemodynamically unstable requiring dual vasopressor support. His presentation is consistent with distributive shock likely from either acute decompensated chronic liver failure or sepsis from C. Diff colitis , with multiorgan dysfunction syndrome including renal failure, encephalopathy and respiratory failure. Patient is no longer requiring vasopressin or levophed for hemodynamic support but is on midodrine. Patient is currently unresponsive to verbal or tactile stimuli off of sedation. Patient is has been transitioned from PRVC to PS/CPAP Plan: Pulmonary: Hypercapnic Respiratory Failure -Patient intubated on 10/05. Today: FiO2= 60%, RR=30, PEEP+5, and Tidal Volume + 400 ml, O2 saturation+97% -ABG: pCO2+39, pO2+52, pH+7.3 -s/p Trach Day 8. -Patient hypotension slightly (93/59) and remains off pressors. -Cardio following -Repeat CXR shows no active pulmonary disease. -Continue to monitor vital signs. -Continue Duonebs 3ml IHQ6 HRESP for wheezing symptoms. -Currently being fed 10cc/hr. -G-tube placement put on hold indefinitely by surgery team. Will monitor closely. Patient awaiting hospice. Renal: Acute renal failure most likely secondary to glomerulonephritis -BUN 83 and Creatinine is 1.9. Showing signs of improvement in SHAMAR. -Urine total protein-897 and Urine Microalbumin >950. -Nephrology consult note appreciated. -No acute indications for HD at this time. Urine output remains steady. -Nephrology consult note appreciate- Hematology: Thrombocytopenia -Plt count now 68 s/p 4 units of Platelets transfused. Trending down. Continue to monitor plt count and consider another transfusion if patient drops below 20. -Patient currently has no active bleeds. Monitor for bleeding. EtOh Withdrawal -Continue Ativan 2mg IVP Q2H PRN for alcohol withdrawal symptoms. -Continue Thiamine, Folic acid and MV supplementation Ascites -s/p ascitic fluid removed on 10/05. -culture growth negative after 6 days. -MELDS score of 20: 19.3% Mortality risk in 3 month time period. GI: Hepatic encephalopathy -Continue Lactulose 20 mg BID TONI. -Rectal tube in place and currently draining 2800 ml. -Scheduled to have gastrostomy tube placed today by Dr. Ronquillo. Procedure on hold indefinitely until more clinically stable. Anemia -Stool occult blood positive on 10/05. -Hgb is low 5's today. Patient transfused 2 units of PRBC's. Patient is s/p 9 units leukocyte reduced PRBC's. Continue to monitor H/H levels with serial CBC' s. Consider Transfusion if Hgb falls below 7. Sepsis/Fungemia -Grew Kamille Albicans -Sputum culture grew Pseudomonas Aeurginosa. -Continue Micafungin (renal dosing) - Will continue to monitor closely. -Merrem, Vancomycin completed. Will monitor closely for signs of infection. C Diff infection. -Vancomycin completed. -Repeat stool sample negative. Continue to monitor closely. Hypokalemia - Will continue to replete as needed. Will continue to monitor electrolyte levels with serial cmp's. GI ppx -Continue Protonix DVT ppx. <Patrica Bingham - Last Filed: 11/03/16 06:50> Objective - Vital Signs/Intake and Output Vital Signs (last 24 hours): Temp Pulse Resp BP Pulse Ox 97.7 F 91 H 35 H 76/40 L 100 10/31/16 16:00 10/31/16 22:00 10/31/16 08:43 10/31/16 22:00 10/31/16 22:00 - Labs Labs: 10/31/16 05:20 10/31/16 05:20 PT 15.5 Seconds (9.9-11.8) H 10/31/16 05:20 INR 1.44 (0.93-1.08) H 10/31/16 05:20 APTT 39.3 Seconds (23.7-30.8) H 10/31/16 05:20 Attending/Attestation - Attestation I have personally seen and examined this patient.: Yes I have fully participated in the care of the patient.: Yes I have reviewed all pertinent clinical information, including history, physical exam and plan: Yes
--- NOTE | 2016-10-31 13:22 | CP.PCM.PN ---
Subjective - Date & Time of Evaluation Date of Evaluation: 10/31/16 Time of Evaluation: 13:00 - Subjective Subjective: Unresponsive to verbal or tactile stimuli. Objective - Vital Signs/Intake and Output Vital Signs (last 24 hours): Temp Pulse Resp BP Pulse Ox 99.4 F 99 H 35 H 83/44 L 100 10/31/16 04:00 10/31/16 12:00 10/31/16 08:43 10/31/16 12:00 10/31/16 12:00 Intake and Output: 10/31/16 10/31/16 06:59 18:59 Intake Total 1500 Output Total 350 Balance 1150 - Medications Medications: Current Medications Artificial Tears (Artificial Tears Opht Oint) 1 gm OU Q6 TONI Last Admin: 10/31/16 05:40 Dose: 1 applic Bacitracin (Bacitracin) 0 gm TOP BID TONI Last Admin: 10/31/16 10:30 Dose: 1 applic Ceftriaxone Sodium (Rocephin 2 Gm Ivpb) 2 gm in 100 mls @ 100 mls/hr IVPB DAILY TONI PRN Reason: Protocol Last Admin: 10/31/16 10:30 Dose: 100 mls/hr Octreotide Acetate 1,250 mcg/ (Dextrose) 252.5 mls @ 10.1 mls/hr IV .Q24H TONI; 50 MCG/HR PRN Reason: Protocol Last Admin: 10/30/16 20:10 Dose: 50 mcg/hr, 10.1 mls/hr Sodium Chloride (Sodium Chloride 0.9%) 1,000 mls @ 160 mls/hr IV .Q6H15M TONI Dextrose (Dextrose 5% In Water 1000 Ml) 1,000 mls @ 60 mls/hr IV .[id number] TONI Last Admin: 10/31/16 12:39 Dose: Not Given Potassium Chloride (Potassium Chloride 20 Meq/100 Ml) 20 meq in 100 mls @ 50 mls/hr IVPB Q2H TONI Stop: 10/31/16 16:59 Metoclopramide HCl (Reglan) 10 mg IVP Q6H PRN PRN Reason: Other Last Admin: 10/25/16 00:41 Dose: 10 mg Midodrine (Proamatine) 10 mg PO TID TONI Pantoprazole Sodium (Protonix Inj) 40 mg IVP Q12 TONI Last Admin: 10/31/16 10:29 Dose: 40 mg - Labs Labs: 10/31/16 05:20 10/31/16 05:20 PT 15.5 Seconds (9.9-11.8) H 10/31/16 05:20 INR 1.44 (0.93-1.08) H 10/31/16 05:20 APTT 39.3 Seconds (23.7-30.8) H 10/31/16 05:20 - Constitutional Appears: Cachectic, Chronically Ill - Head Exam Head Exam: NORMOCEPHALIC - Eye Exam Eye Exam: Normal appearance, PERRL - ENT Exam ENT Exam: Mucous Membranes Moist - Respiratory Exam Respiratory Exam: Decreased Breath Sounds, NORMAL BREATHING PATTERN - Cardiovascular Exam Cardiovascular Exam: REGULAR RHYTHM, +S1, +S2 - GI/Abdominal Exam GI & Abdominal Exam: Distended, Soft, Hypoactive Bowel Sounds - Rectal Exam Additional comments: rectal tube - Exam Additional comments: oliguria - Extremities Exam Additional comments: + 1 lower extremity edema - Neurological Exam Neurological Exam: Altered - Skin Skin Exam: Dry, Pallor Assessment and Plan - Assessment and Plan (Free Text) Assessment: 56 year old admitted with sepsis, hyperkalemia, alcohol withdrawal,respiratory failure s/p intubation now trached > failed weaning trials, hepatorenal failure , GI bleed,anemia, altered mental status, thrombocytopenia. C Difficile>rectal tube > octreotide drip, nicholas rectal bleeding, glomerulonephritis>oliguria. Over all prognosis extremely poor. Meeting scheduled with patient's , myself and medical team today.Goals of care t be discussed. Extensive discussion with patient's and daughter regarding goals of care. Family coming to terms with the gravity of situation. It was explained that all aggressive medical effort have been exhausted and that despite medical interventions the patient's condition continues to decline. Hospice services explained in detail. Questions answered. Family agreed to sign on to [facility] services. Family understands that end of life is imminent.Psychosocial support given. Spiritual support offered, family declined. Time spent in goals of care discussion and end of life counseling, 45 minutes Plan: Goals of care,end of life counseling,palliative support Disgorge and admit to [facility] hospice
--- NOTE | 2016-10-31 14:13 | CP.PCM.PN ---
Subjective - Date & Time of Evaluation Date of Evaluation: 10/31/16 Time of Evaluation: 07:30 - Subjective Subjective: patient seen and examined. Remains on PRVC with failed weaning trials, opens eyes does not follow commands. Objective - Vital Signs/Intake and Output Vital Signs (last 24 hours): Temp Pulse Resp BP Pulse Ox 99.4 F 99 H 35 H 83/44 L 100 10/31/16 04:00 10/31/16 12:00 10/31/16 08:43 10/31/16 12:00 10/31/16 12:00 Intake and Output: 10/31/16 10/31/16 06:59 18:59 Intake Total 1500 Output Total 350 Balance 1150 - Medications Medications: Current Medications Artificial Tears (Artificial Tears Opht Oint) 1 gm OU Q6 TONI Last Admin: 10/31/16 05:40 Dose: 1 applic Bacitracin (Bacitracin) 0 gm TOP BID TONI Last Admin: 10/31/16 10:30 Dose: 1 applic Ceftriaxone Sodium (Rocephin 2 Gm Ivpb) 2 gm in 100 mls @ 100 mls/hr IVPB DAILY TONI PRN Reason: Protocol Last Admin: 10/31/16 10:30 Dose: 100 mls/hr Octreotide Acetate 1,250 mcg/ (Dextrose) 252.5 mls @ 10.1 mls/hr IV .Q24H TONI; 50 MCG/HR PRN Reason: Protocol Last Admin: 10/30/16 20:10 Dose: 50 mcg/hr, 10.1 mls/hr Sodium Chloride (Sodium Chloride 0.9%) 1,000 mls @ 160 mls/hr IV .Q6H15M TONI Dextrose (Dextrose 5% In Water 1000 Ml) 1,000 mls @ 60 mls/hr IV .[id number] TONI Last Admin: 10/31/16 12:39 Dose: Not Given Potassium Chloride (Potassium Chloride 10 Meq/100 Ml) 10 meq in 100 mls @ 100 mls/hr IVPB Q2H TONI Stop: 10/31/16 16:44 Metoclopramide HCl (Reglan) 10 mg IVP Q6H PRN PRN Reason: Other Last Admin: 10/25/16 00:41 Dose: 10 mg Midodrine (Proamatine) 10 mg PO TID TONI Pantoprazole Sodium (Protonix Inj) 40 mg IVP Q12 TONI Last Admin: 10/31/16 10:29 Dose: 40 mg - Labs Labs: 10/31/16 05:20 10/31/16 05:20 PT 15.5 Seconds (9.9-11.8) H 10/31/16 05:20 INR 1.44 (0.93-1.08) H 10/31/16 05:20 APTT 39.3 Seconds (23.7-30.8) H 10/31/16 05:20 - Constitutional Appears: Chronically Ill - Head Exam Head Exam: ATRAUMATIC - ENT Exam ENT Exam: Mucous Membranes Moist - Neck Exam Neck Exam: Full ROM - Respiratory Exam Respiratory Exam: Clear to Ausculation Bilateral, NORMAL BREATHING PATTERN - Cardiovascular Exam Cardiovascular Exam: REGULAR RHYTHM, RRR, +S1, +S2 - GI/Abdominal Exam GI & Abdominal Exam: Distended, Soft, Normal Bowel Sounds - Extremities Exam Extremities Exam: Pedal Edema Assessment and Plan - Assessment and Plan (Free Text) Assessment: Patient is 56yo male with end stage liver disease, with fungemia, +Pseudomonas sputum, chronically ill, vent dependent, with toxic metabolic encephalopathy. Respiratory Failure, s/p trach, vent dependent Fungemia, resolved EtOh abuse Chronic Liver disease Metabolic Encephalopathy Renal Failure, stable Pseudomonas sputum C diff, resolved GIB, Anemia - currently afebrile, HD stable, comfortable, off pressors - remains vent dependent, fails weaning trials - remains confused, follows commands minimally, renal function stable - HH stable - GI following, no plans for EGD/Colonoscopy Recommend: - cont with ventilatory support, with pressure support trials as tolerated - abx as per ID, increasing WBC - cont with midodrine, increase dose to 10mg TID - monitor HH, - hold feeds - PPI drip - Octreotide drip - VitK IV - follow up GI, on the case - cont with IVF as per renal - GI ppx - DVT ppx, SCDs, NO HSQ 2/2 thrombocytopenia - intermediate teacher planning, Ltach vs hospice - extremely poor prognosis
[2016-10-31 16:46] VITALS: TEMP 97.7
[2016-10-31] MEDS: Octreotide 1,250 MCG in Dextrose 5% In Water 250 ML IV SCH (17:35)
[2016-10-31 22:05] VITALS: BP 76/40; PULSE 91; O2SAT 100
--- NOTE | 2016-11-01 10:00 | CP.PCM.PN ---
Subjective - Date & Time of Evaluation Date of Evaluation: 10/31/16 Time of Evaluation: 11:00 - Subjective Subjective: Patient continues to have nicholas blood in flexiseal stool output; Objective - Vital Signs/Intake and Output Vital Signs (last 24 hours): Temp Pulse Resp BP Pulse Ox 97.7 F 91 H 35 H 76/40 L 100 10/31/16 16:00 10/31/16 22:00 10/31/16 08:43 10/31/16 22:00 10/31/16 22:00 - Labs Labs: 10/31/16 05:20 10/31/16 05:20 PT 15.5 Seconds (9.9-11.8) H 10/31/16 05:20 INR 1.44 (0.93-1.08) H 10/31/16 05:20 APTT 39.3 Seconds (23.7-30.8) H 10/31/16 05:20 - Constitutional Appears: No Acute Distress, Chronically Ill - Head Exam Head Exam: NORMAL INSPECTION - ENT Exam ENT Exam: Mucous Membranes Moist - Respiratory Exam Additional comments: tachypneic; - Cardiovascular Exam Cardiovascular Exam: REGULAR RHYTHM, +S1, +S2 - GI/Abdominal Exam GI & Abdominal Exam: Distended, Soft. absent: Tenderness - Extremities Exam Additional comments: markedly edematous; - Neurological Exam Neurological Exam: Awake Additional comments: not following commands; - Skin Skin Exam: Warm. absent: Cyanosis Assessment and Plan (1) Acute renal failure Assessment & Plan: Multifactorial; after stabilizing, renal function again getting worse in setting of worsening leukocytosis and new hypotension; increasing NS to 160 cc/ hr; Status: Acute (2) Acute hypercapnic respiratory failure Assessment & Plan: Still tachypneic; getting more acidotic as well; will consider switching to bicarb drip; Status: Acute (3) Hypokalemia Status: Acute (4) SIRS (systemic inflammatory response syndrome) Status: Acute (5) Hypernatremia Assessment & Plan: Mild; adding D5W at 50 cc/hr; Status: Acute - Assessment and Plan (Free Text) Assessment: Overall poor prognosis; don't expect renal function to go back to baseline and cannot treat likely underlying GN in a patient with so many co-morbities;
--- NOTE | 2016-11-01 16:32 | CP.PCM.DIS ---
<Justo Torres - Last Filed: 11/01/16 21:42> Provider - Provider Date of Admission: 10/02/16 19:22 Attending physician: Patrica Bingham MD Primary care physician: Adrian De La Torre MD Time Spent in preparation of Discharge (in minutes): 45 Hospital Course - Lab Results Lab Results: Micro Results 10/23/16 11:38 Stool C. difficile Antigen & Toxin A,B (M - Final 10/21/16 10:11 Stool C. difficile Antigen & Toxin A,B (M - Final 10/16/16 11:25 Blood-Venous Blood Culture - Final NO GROWTH AFTER 5 DAYS 10/16/16 11:25 Blood-Venous Gram Stain - Final TEST NOT PERFORMED 10/16/16 11:00 Blood-Venous Blood Culture - Final NO GROWTH AFTER 5 DAYS 10/16/16 11:00 Blood-Venous Gram Stain - Final TEST NOT PERFORMED 10/18/16 08:07 Urine,Vyas Urine Culture - Final No Growth (<1,000 CFU/ML) 10/14/16 08:00 Blood Blood Culture - Final NO GROWTH AFTER 5 DAYS 10/14/16 08:00 Blood Gram Stain - Final TEST NOT PERFORMED 10/14/16 14:10 Sputum Gram Stain - Final 10/14/16 14:10 Sputum Sputum Culture - Final Pseudomonas Aeruginosa 10/11/16 07:40 Blood-Venous Blood Culture - Final NO GROWTH AFTER 5 DAYS 10/11/16 07:40 Blood-Venous Gram Stain - Final TEST NOT PERFORMED 10/11/16 07:10 Blood-Venous Blood Culture - Final NO GROWTH AFTER 5 DAYS 10/11/16 07:10 Blood-Venous Gram Stain - Final TEST NOT PERFORMED 10/13/16 06:30 Urine,Vyas Urine Culture - Final No Growth (<1,000 CFU/ML) 10/08/16 14:05 Blood Blood Culture - Final NO GROWTH AFTER 5 DAYS 10/08/16 14:05 Blood Gram Stain - Final TEST NOT PERFORMED 10/08/16 13:50 Blood Blood Culture - Final NO GROWTH AFTER 5 DAYS 10/08/16 13:50 Blood Gram Stain - Final TEST NOT PERFORMED 10/05/16 08:23 Peritoneal Fluid Gram Stain - Final 10/05/16 08:23 Peritoneal Fluid Body Fluid Culture - Final NO GROWTH AFTER 4 DAYS 10/05/16 13:00 Blood-Venous Blood Culture - Final Mellisa Albicans 10/05/16 13:00 Blood-Venous Gram Stain - Final 10/05/16 21:16 Urine,Vyas Urine Culture - Final Yeast Species 10/02/16 23:55 Blood Blood Culture - Final NO GROWTH AFTER 5 DAYS 10/02/16 23:55 Blood Gram Stain - Final TEST NOT PERFORMED 10/02/16 23:35 Blood Blood Culture - Final NO GROWTH AFTER 5 DAYS 10/02/16 23:35 Blood Gram Stain - Final TEST NOT PERFORMED 10/05/16 08:30 Sputum Gram Stain - Final 10/05/16 08:30 Sputum Sputum Culture - Final Yeast Species 10/04/16 18:18 Stool Stool Culture - Final NO SALMONELLA, SHIGELLA OR CAMPYLOBACTER ISOLATED. 10/04/16 18:18 Stool C. difficile Antigen & Toxin A,B (M - Final 10/04/16 13:40 Urine,Catheterized Urine Culture - Final No Growth (<1,000 CFU/ML) 10/02/16 21:58 Naris MRSA Culture (Admit) - Final MRSA NOT DETECTED Most Recent Lab Values WBC 27.8 10^3/ul (4.5-11.0) H* D 10/31/16 05:20 RBC 3.07 10^6/uL (3.5-6.1) L 10/31/16 05:20 Hgb 9.1 g/dL (14.0-18.0) L 10/31/16 05:20 Hct 28.2 % (42.0-52.0) L 10/31/16 05:20 MCV 91.9 fl (80.0-105.0) 10/31/16 05:20 MCH 29.6 pg (25.0-35.0) 10/31/16 05:20 MCHC 32.3 g/dl (31.0-37.0) 10/31/16 05:20 RDW 18.4 % (11.5-14.5) H 10/31/16 05:20 Plt Count 110 10^3/uL (120.0-450.0) L 10/31/16 05:20 Manual Plt Count 40 K/mm3 (120-450) L* 10/08/16 11:32 MPV 11.9 fl (7.0-11.0) H 10/31/16 05:20 Gran % 84.0 % (50.0-68.0) H 10/31/16 05:20 Lymph % (Auto) 12.8 % (22.0-35.0) L 10/31/16 05:20 Lucas % (Auto) 3.1 % (1.0-6.0) 10/31/16 05:20 Eos % (Auto) 0.0 % (1.5-5.0) L 10/31/16 05:20 Baso % (Auto) 0.1 % (0.0-3.0) 10/31/16 05:20 Gran # 23.34 (1.4-6.5) H 10/31/16 05:20 Lymph # 3.6 (1.2-3.4) H 10/31/16 05:20 Lucas # 0.9 (0.1-0.6) H 10/31/16 05:20 Eos # 0.0 (0.0-0.7) 10/31/16 05:20 Baso # 0.03 K/mm3 (0.0-2.0) 10/31/16 05:20 Neutrophils % (Manual) 56 % (50.0-70.0) 10/05/16 16:50 Band Neutrophils % 17 % (0-2) H* 10/05/16 16:50 Lymphocytes % (Manual) 23 % (22.0-35.0) 10/05/16 16:50 Monocytes % (Manual) 4 % (1.0-6.0) 10/05/16 16:50 Platelet Evaluation Low (NORMAL) 10/12/16 09:00 Hypochromasia Slight 10/05/16 16:50 Retic Count 1.16 % (0.5-1.5) 10/03/16 04:00 Haptoglobin 54 mg/dL (43-212) 10/04/16 05:50 PT 15.5 Seconds (9.9-11.8) H 10/31/16 05:20 INR 1.44 (0.93-1.08) H 10/31/16 05:20 APTT 39.3 Seconds (23.7-30.8) H 10/31/16 05:20 Fibrinogen 112.0 mg/dL (187-400) L 10/07/16 05:17 pCO2 42 mm/Hg (35-45) 10/27/16 05:20 pO2 64.0 mm/Hg (80-100) L 10/27/16 05:20 HCO3 18.4 mmol/L (21-28) L 10/27/16 05:20 ABG pH 7.25 (7.35-7.45) L 10/27/16 05:20 ABG Total CO2 19.7 mmol.L (22-28) L 10/27/16 05:20 ABG O2 Saturation 96.1 % (95-98) 10/27/16 05:20 ABG O2 Content 10.5 ML/dl (15-23) L 10/27/16 05:20 ABG Base Excess -8.2 mmol/L (-2.0-3.0) L 10/27/16 05:20 ABG Hemoglobin 8.0 g/dL (11.7-17.4) L 10/27/16 05:20 ABG Carboxyhemoglobin 2.8 % (0.5-1.5) H 10/27/16 05:20 POC ABG HHb (Measured) 3.8 % (0-5) 10/27/16 05:20 ABG Methemoglobin 0.7 % (0.0-3.0) 10/27/16 05:20 ABG O2 Capacity 10.9 mL/dl (16-24) L 10/27/16 05:20 ABG Potassium 3.4 mmol/L (3.6-5.2) L 10/24/16 10:50 VBG pH 7.20 (7.32-7.43) L 10/06/16 05:30 VBG pCO2 66.0 (40-60) H* 10/06/16 05:30 VBG HCO3 25.8 mmol/l (21-28) 10/06/16 05:30 VBG Total CO2 27.8 mmol.L (22-28) 10/06/16 05:30 VBG O2 Sat (Calc) 99.2 % (40-65) H 10/06/16 05:30 VBG Base Excess -3.6 mmol/L (0.0-2.0) L 10/06/16 05:30 VBG Potassium 3.1 mmol/L (3.6-5.2) L 10/06/16 05:30 Hgb O2 Saturation 92.7 % (95.0-98.0) L 10/27/16 05:20 Sodium 145.0 mmol/L (132-148) 10/24/16 10:50 Chloride 117.0 mmol/L (98-107) H 10/24/16 10:50 Glucose 86 mg/dl (75-110) 10/24/16 10:50 Lactate 0.9 mmol/L (0.7-2.1) 10/24/16 10:50 Mechanical Rate 30 10/19/16 13:00 FiO2 40.0 % 10/27/16 05:20 Tidal Volume 400 10/19/16 13:00 PEEP 5 10/24/16 10:50 Sodium 145 mmol/L (132-148) 10/31/16 05:20 Potassium 3.6 mmol/L (3.6-5.0) 10/31/16 05:20 Chloride 118 mmol/L (98-107) H 10/31/16 05:20 Carbon Dioxide 15 mmol/L (21-33) L 10/31/16 05:20 Anion Gap 16 (10-20) 10/31/16 05:20 BUN 79 mg/dL (7-21) H 10/31/16 05:20 Creatinine 2.4 mg/dL (0.5-1.4) H 10/31/16 05:20 Est GFR ( Amer) 34 10/31/16 05:20 Est GFR (Non-Af Amer) 28 10/31/16 05:20 POC Glucose (mg/dL) 92 mg/dL (65-110) 10/20/16 08:11 Random Glucose 79 mg/dL (70-110) 10/31/16 05:20 Uric Acid 11.1 mg/dL (3.5-8.5) H 10/16/16 07:30 Calcium 7.0 mg/dL (8.4-10.5) L 10/31/16 05:20 Phosphorus 7.9 mg/dL (2.5-4.5) H 10/31/16 13:59 Magnesium 2.0 mg/dL (1.7-2.2) 10/31/16 05:20 Iron 28 ug/dL (45-180) L 10/03/16 04:10 TIBC 192 ug/dL (261-462) L 10/03/16 04:10 % Saturation 15 % (20-55) L 10/03/16 04:10 Ferritin 865.0 ng/mL 10/03/16 04:10 Total Bilirubin 1.6 mg/dL (0.2-1.3) H 10/31/16 05:20 AST 93 U/L (17-59) H 10/31/16 05:20 ALT 67 U/L (7-56) H 10/31/16 05:20 Alkaline Phosphatase 88 U/L (38-126) 10/31/16 05:20 Ammonia < 9 umol/L (9-33) L 10/24/16 13:20 Lactate Dehydrogenase 1226 U/L (333-699) H 10/03/16 08:30 Total Creatine Kinase 241 U/L (35-230) H 10/06/16 12:00 CK-MB (CK-2) 3.2 ng/mL (0.0-3.6) 10/06/16 12:00 CK-MB (CK-2) % 1.3 % (2.5-3.0) L 10/06/16 12:00 Troponin I 0.04 ng/mL D 10/05/16 02:50 Total Protein 3.9 g/dL (5.8-8.3) L 10/31/16 05:20 Albumin 1.4 g/dL (3.0-4.8) L 10/31/16 05:20 Globulin 2.5 gm/dL 10/31/16 05:20 Albumin/Globulin Ratio 0.6 (1.1-1.8) L 10/31/16 05:20 Lipase 523 U/L (23-300) H 10/02/16 18:00 Vitamin B12 963 pg/mL (239-931) H 10/03/16 04:10 25-OH Vitamin D Total < 12.8 NG/ML (30.0-100.0) L 10/14/16 12:30 Folate 9.9 ng/mL 10/03/16 04:10 Procalcitonin 1.44 NG/ML (0.19-0.49) H 10/14/16 08:00 TSH 3rd Generation 0.6 MIU/ml (0.46-4.68) 10/03/16 04:10 PTH Intact Whole Molec 67 pg/mL (14-64) H 10/14/16 12:30 Arterial Blood Potassium 3.4 mmol/L (3.6-5.2) L 10/24/16 10:50 Venous Blood Potassium 3.1 mmol/L (3.6-5.2) L 10/06/16 05:30 Urine Color Yellow (YELLOW) 10/16/16 02:50 Urine Appearance Slight-cloudy (CLEAR) 10/16/16 02:50 Urine pH 6.0 (4.7-8.0) 10/16/16 02:50 Ur Specific [place] 1.020 (1.005-1.035) 10/16/16 02:50 Urine Protein 100 mg/dL (<30 mg/dL) H 10/16/16 02:50 Urine Glucose (UA) Negative mg/dL (NEGATIVE) 10/16/16 02:50 Urine Ketones Negative mg/dL (NEGATIVE) 10/16/16 02:50 Urine Blood Large (NEGATIVE) H 10/16/16 02:50 Urine Nitrate Negative (NEGATIVE) 10/16/16 02:50 Urine Bilirubin Negative (NEGATIVE) 10/16/16 02:50 Urine Urobilinogen 0.2 E.U./dL (<1 E.U./dL) 10/16/16 02:50 Ur Leukocyte Esterase Negative Anthony/uL (NEGATIVE) 10/16/16 02:50 Urine RBC 10 - 15 /hpf (0-2) 10/16/16 02:50 Urine WBC 0 - 2 /hpf (0-6) 10/16/16 02:50 Ur Epithelial Cells 0 - 2 /hpf (0-5) 10/16/16 02:50 Urine Bacteria Mod (NEG) 10/16/16 02:50 Hyaline Casts 0 - 2 /hpf 10/04/16 13:40 Ur Random Creatinine 273 mg/dL 10/08/16 16:10 U Random Total Protein 897 mg/g creat (22-128) H 10/08/16 16:10 Ur Random Sodium 35 meq/L 10/08/16 16:10 Ur Random Potassium 3.4 meq/L 10/04/16 06:50 Urine Collection Time 24 HOURS 10/05/16 07:00 Urine Total Volume 890 mL (800-1400) 10/05/16 07:00 Urine Microalbumin > 950.0 mg/L (0.0-16.6) H 10/08/16 16:10 Urine Potassium 2.9 mmol/L 10/05/16 07:00 Ur Potassium 24 Hour 2.6 meq/24HR (25-120) L 10/05/16 07:00 Fluid Source Peritoneal 10/05/16 08:23 Fluid Appearance Clear (CLEAR) 10/05/16 08:23 Fluid WBC 563.0 /uL (0.0-300.0) H 10/05/16 08:23 Fluid RBC 414.0 /uL (0.0-0.0) H 10/05/16 08:23 Fluid Tot Cell Count 100 (0-0) H 10/05/16 08:23 Fluid Neutrophils 3.4 % (0-0) H 10/05/16 08:23 Fluid Lymphocytes 96.6 % (0-0) H 10/05/16 08:23 Fld Monocyte/Macrophag TEST NOT PERFORMED 10/05/16 08:23 Fluid Albumin 0.5 g/dL 10/05/16 08:23 Fluid Comment TEST NOT PERFORMED 10/05/16 08:23 Peritoneal Tot Protein <3.0 g/dL 10/05/16 08:23 Peritoneal LDH 113 U/L (<63) H 10/05/16 08:23 Stool Occult Blood Positive (NEGATIVE) H 10/24/16 08:09 Gentamicin Trough 8.0 ug/mL (0.0-0.9) H* 10/18/16 05:10 Vancomycin Trough 12.6 ug/mL (5.0-10.0) H 10/06/16 09:00 Salicylates < 1 mg/dL (2.0-20.0) L 10/02/16 16:39 Urine Opiates Screen Negative (NEGATIVE) 10/03/16 01:00 Urine Methadone Screen Negative (NEGATIVE) 10/03/16 01:00 Acetaminophen < 10.0 ug/ml (10.0-20.0) L 10/02/16 16:39 Ur Barbiturates Screen Negative (NEGATIVE) 10/03/16 01:00 Ur Phencyclidine Scrn Negative (NEGATIVE) 10/03/16 01:00 Ur Amphetamines Screen Negative (NEGATIVE) 10/03/16 01:00 U Benzodiazepines Scrn Positive (NEGATIVE) H 10/03/16 01:00 U Oth Cocaine Metabols Negative (NEGATIVE) 10/03/16 01:00 U Cannabinoids Screen Negative (NEGATIVE) 10/03/16 01:00 Alcohol, Quantitative < 10 mg/dL (0-10) 10/02/16 16:39 Cryoglobulin None detected (None Detected) 10/07/16 14:17 Rheumatoid Factor IgG <5 U (<=6) 10/07/16 14:17 Rheumatoid Factor IgA <5 U (<=6) 10/07/16 14:17 Rheumatoid Factor IgM 11 U (<=6) H 10/07/16 14:17 PEEWEE Screen Negative (Negative) 10/07/16 15:00 PEEWEE Titer TEST NOT PERFORMED 10/07/16 15:00 PEEWEE Titer 2 TEST NOT PERFORMED 10/07/16 15:00 PEEWEE Pattern TEST NOT PERFORMED 10/07/16 15:00 PEEWEE Pattern 2 TEST NOT PERFORMED 10/07/16 15:00 Complement C3 40.0 mg/dL (88.0-165.0) L 10/06/16 12:50 Complement C4 < 8.0 mg/dL (14.0-44.0) L 10/06/16 12:50 Hepatitis A IgM Ab Negative (NEGATIVE) 10/03/16 04:10 Hep Bs Antigen Negative (NEGATIVE) 10/03/16 04:10 Hep B Core IgM Ab Negative (NEGATIVE) 10/03/16 04:10 Hepatitis C Antibody Reactive (NEGATIVE) 10/03/16 04:10 HCV RNA Qual (TMA) Detected H 10/08/16 06:00 Beta-(1,3)-D-Glucan >500 pg/mL H 10/14/16 08:00 B-(1,3)-D-Glucan Intrp Positive H 10/14/16 08:00 Blood Type O POSITIVE 10/29/16 11:20 Antibody Screen Negative 10/29/16 11:20 Antibody Identification TNP 10/25/16 22:31 Crossmatch See Detail 10/29/16 11:20 BBK History Checked Patient has bt 10/29/16 11:20 - Hospital Course Hospital Course: This is a 56 year old male with a past medical history of liver cirrhosis, gastritis, hepatitis C, transamnitis, pancytopenia, ETOH withdrawal/abuse, esophageal varices, hypertension who came in complaining of anxiety and tremors for 2 days. Patient received Valium and Ativan when I saw the patient, thus ROS obtained from previous reports. Patient stopped drinking two days ago and started experiencing tremors, nausea, and vomiting. He denies neck pain, stiffness, chest pain, shortness of breath, night sweats, facial twitching, numbness and tingling. Patient was recently discharged from [facility] on 07/2016 for lower extremity rash, alcohol withdrawal and hypokalemia. Patient was tachycardic in the E.D. at heart rate of 126, T wave inversion on leads V2-V6, hypokalemia 1.6, hypomagnesemia 1.5, hypophosphatemia, trasaminitis, elevated troponin x1, normal CKMB, lipase of 523. Patient had blood cultures, urine cultures done. Patient became unresponsive overnight and began to desat and was intubated. The patient's abdomen also began to swell secondary to the liver cirrhosis and the patient had a paracentesis. Patient Patient had hypercapnic respiratory acidosis. Patient was seen by Cardiology, GI, Infectious Disease, Renal, Palliative and Ophthalmology. Patient was septic and was on Vancomycin and Merrem while in the ICU. The patient also be came hypotensive and was put on pressors to stabilize the blood pressure. The patient repeat sepsis workup showed gram negative bacilli and was given IV dose of gentamicin. Sputum cultures were positive for pseudomonas. Patient was weaned off intubated and had a trach placed shortly after. The patient had a rectal tube placed that was draining large amounts of dark red stool. Patient' s hemoglobin began to drop and become unstable. The patient was transfused 15 units of PRBC's while in the ICU. Patient also continued to have a drop in platelets and was transfused 3 units of FFP and 5 units of Leukocyte reduced Platelets. Patient was expected to get a peg tube placed last week however due to how unstable the patient was clinically it was put on hold indefinitely as a result. Patient was accepted to Hospice care and was discharged from the ICU to the 5 floor. Discharge Exam - Head Exam Head Exam: NORMAL INSPECTION - Eye Exam Eye Exam: EOMI, PERRL. absent: Periorbital swelling, Periorbital tenderness Pupil Exam: PERRL. absent: NORMAL ACCOMODATION - ENT Exam ENT Exam: Mucous Membranes Moist - Neck Exam Additional comments: Trach placed. - Respiratory Exam Respiratory Exam: Clear to PA & Lateral, NORMAL BREATHING PATTERN. absent: Accessory Muscle Use, Chest Wall Tenderness, Prolonged Expiratory Phase - Cardiovascular Exam Cardiovascular Exam: REGULAR RHYTHM, +S1, +S2. absent: JVD, RRR, Rubs - GI/Abdominal Exam GI & Abdominal Exam: Normal Bowel Sounds, Soft, Unremarkable. absent: Tenderness - Extremities Exam Extremities exam: joint swelling, pedal edema - Back Exam Additional comments: bed ulcers on the posterior back - Neurological Exam Neurological exam: Altered - Skin Skin Exam: Mottled Discharge Plan - Follow Up Plan Condition: CRITICAL Disposition: HOSPICE - MEDICAL FACILITY Referrals: Adrian De La Torre MD [Primary Care Provider] - <Patrica Bingham - Last Filed: 11/02/16 09:10> Provider - Provider Date of Admission: 10/02/16 19:22 Attending physician: Patrica Bingham MD Primary care physician: Adrian De La Torre MD Hospital Course - Lab Results Lab Results: Micro Results 10/23/16 11:38 Stool C. difficile Antigen & Toxin A,B (M - Final 10/21/16 10:11 Stool C. difficile Antigen & Toxin A,B (M - Final 10/16/16 11:25 Blood-Venous Blood Culture - Final NO GROWTH AFTER 5 DAYS 10/16/16 11:25 Blood-Venous Gram Stain - Final TEST NOT PERFORMED 10/16/16 11:00 Blood-Venous Blood Culture - Final NO GROWTH AFTER 5 DAYS 10/16/16 11:00 Blood-Venous Gram Stain - Final TEST NOT PERFORMED 10/18/16 08:07 Urine,Vyas Urine Culture - Final No Growth (<1,000 CFU/ML) 10/14/16 08:00 Blood Blood Culture - Final NO GROWTH AFTER 5 DAYS 10/14/16 08:00 Blood Gram Stain - Final TEST NOT PERFORMED 10/14/16 14:10 Sputum Gram Stain - Final 10/14/16 14:10 Sputum Sputum Culture - Final Pseudomonas Aeruginosa 10/11/16 07:40 Blood-Venous Blood Culture - Final NO GROWTH AFTER 5 DAYS 10/11/16 07:40 Blood-Venous Gram Stain - Final TEST NOT PERFORMED 10/11/16 07:10 Blood-Venous Blood Culture - Final NO GROWTH AFTER 5 DAYS 10/11/16 07:10 Blood-Venous Gram Stain - Final TEST NOT PERFORMED 10/13/16 06:30 Urine,Vyas Urine Culture - Final No Growth (<1,000 CFU/ML) 10/08/16 14:05 Blood Blood Culture - Final NO GROWTH AFTER 5 DAYS 10/08/16 14:05 Blood Gram Stain - Final TEST NOT PERFORMED 10/08/16 13:50 Blood Blood Culture - Final NO GROWTH AFTER 5 DAYS 10/08/16 13:50 Blood Gram Stain - Final TEST NOT PERFORMED 10/05/16 08:23 Peritoneal Fluid Gram Stain - Final 10/05/16 08:23 Peritoneal Fluid Body Fluid Culture - Final NO GROWTH AFTER 4 DAYS 10/05/16 13:00 Blood-Venous Blood Culture - Final Mellisa Albicans 10/05/16 13:00 Blood-Venous Gram Stain - Final 10/05/16 21:16 Urine,Vyas Urine Culture - Final Yeast Species 10/02/16 23:55 Blood Blood Culture - Final NO GROWTH AFTER 5 DAYS 10/02/16 23:55 Blood Gram Stain - Final TEST NOT PERFORMED 10/02/16 23:35 Blood Blood Culture - Final NO GROWTH AFTER 5 DAYS 10/02/16 23:35 Blood Gram Stain - Final TEST NOT PERFORMED 10/05/16 08:30 Sputum Gram Stain - Final 10/05/16 08:30 Sputum Sputum Culture - Final Yeast Species 10/04/16 18:18 Stool Stool Culture - Final NO SALMONELLA, SHIGELLA OR CAMPYLOBACTER ISOLATED. 10/04/16 18:18 Stool C. difficile Antigen & Toxin A,B (M - Final 10/04/16 13:40 Urine,Catheterized Urine Culture - Final No Growth (<1,000 CFU/ML) 10/02/16 21:58 Naris MRSA Culture (Admit) - Final MRSA NOT DETECTED Most Recent Lab Values WBC 27.8 10^3/ul (4.5-11.0) H* D 10/31/16 05:20 RBC 3.07 10^6/uL (3.5-6.1) L 10/31/16 05:20 Hgb 9.1 g/dL (14.0-18.0) L 10/31/16 05:20 Hct 28.2 % (42.0-52.0) L 10/31/16 05:20 MCV 91.9 fl (80.0-105.0) 10/31/16 05:20 MCH 29.6 pg (25.0-35.0) 10/31/16 05:20 MCHC 32.3 g/dl (31.0-37.0) 10/31/16 05:20 RDW 18.4 % (11.5-14.5) H 10/31/16 05:20 Plt Count 110 10^3/uL (120.0-450.0) L 10/31/16 05:20 Manual Plt Count 40 K/mm3 (120-450) L* 10/08/16 11:32 MPV 11.9 fl (7.0-11.0) H 10/31/16 05:20 Gran % 84.0 % (50.0-68.0) H 10/31/16 05:20 Lymph % (Auto) 12.8 % (22.0-35.0) L 10/31/16 05:20 Lucas % (Auto) 3.1 % (1.0-6.0) 10/31/16 05:20 Eos % (Auto) 0.0 % (1.5-5.0) L 10/31/16 05:20 Baso % (Auto) 0.1 % (0.0-3.0) 10/31/16 05:20 Gran # 23.34 (1.4-6.5) H 10/31/16 05:20 Lymph # 3.6 (1.2-3.4) H 10/31/16 05:20 Lucas # 0.9 (0.1-0.6) H 10/31/16 05:20 Eos # 0.0 (0.0-0.7) 10/31/16 05:20 Baso # 0.03 K/mm3 (0.0-2.0) 10/31/16 05:20 Neutrophils % (Manual) 56 % (50.0-70.0) 10/05/16 16:50 Band Neutrophils % 17 % (0-2) H* 10/05/16 16:50 Lymphocytes % (Manual) 23 % (22.0-35.0) 10/05/16 16:50 Monocytes % (Manual) 4 % (1.0-6.0) 10/05/16 16:50 Platelet Evaluation Low (NORMAL) 10/12/16 09:00 Hypochromasia Slight 10/05/16 16:50 Retic Count 1.16 % (0.5-1.5) 10/03/16 04:00 Haptoglobin 54 mg/dL (43-212) 10/04/16 05:50 PT 15.5 Seconds (9.9-11.8) H 10/31/16 05:20 INR 1.44 (0.93-1.08) H 10/31/16 05:20 APTT 39.3 Seconds (23.7-30.8) H 10/31/16 05:20 Fibrinogen 112.0 mg/dL (187-400) L 10/07/16 05:17 pCO2 42 mm/Hg (35-45) 10/27/16 05:20 pO2 64.0 mm/Hg (80-100) L 10/27/16 05:20 HCO3 18.4 mmol/L (21-28) L 10/27/16 05:20 ABG pH 7.25 (7.35-7.45) L 10/27/16 05:20 ABG Total CO2 19.7 mmol.L (22-28) L 10/27/16 05:20 ABG O2 Saturation 96.1 % (95-98) 10/27/16 05:20 ABG O2 Content 10.5 ML/dl (15-23) L 10/27/16 05:20 ABG Base Excess -8.2 mmol/L (-2.0-3.0) L 10/27/16 05:20 ABG Hemoglobin 8.0 g/dL (11.7-17.4) L 10/27/16 05:20 ABG Carboxyhemoglobin 2.8 % (0.5-1.5) H 10/27/16 05:20 POC ABG HHb (Measured) 3.8 % (0-5) 10/27/16 05:20 ABG Methemoglobin 0.7 % (0.0-3.0) 10/27/16 05:20 ABG O2 Capacity 10.9 mL/dl (16-24) L 10/27/16 05:20 ABG Potassium 3.4 mmol/L (3.6-5.2) L 10/24/16 10:50 VBG pH 7.20 (7.32-7.43) L 10/06/16 05:30 VBG pCO2 66.0 (40-60) H* 10/06/16 05:30 VBG HCO3 25.8 mmol/l (21-28) 10/06/16 05:30 VBG Total CO2 27.8 mmol.L (22-28) 10/06/16 05:30 VBG O2 Sat (Calc) 99.2 % (40-65) H 10/06/16 05:30 VBG Base Excess -3.6 mmol/L (0.0-2.0) L 10/06/16 05:30 VBG Potassium 3.1 mmol/L (3.6-5.2) L 10/06/16 05:30 Hgb O2 Saturation 92.7 % (95.0-98.0) L 10/27/16 05:20 Sodium 145.0 mmol/L (132-148) 10/24/16 10:50 Chloride 117.0 mmol/L (98-107) H 10/24/16 10:50 Glucose 86 mg/dl (75-110) 10/24/16 10:50 Lactate 0.9 mmol/L (0.7-2.1) 10/24/16 10:50 Mechanical Rate 30 10/19/16 13:00 FiO2 40.0 % 10/27/16 05:20 Tidal Volume 400 10/19/16 13:00 PEEP 5 10/24/16 10:50 Sodium 145 mmol/L (132-148) 10/31/16 05:20 Potassium 3.6 mmol/L (3.6-5.0) 10/31/16 05:20 Chloride 118 mmol/L (98-107) H 10/31/16 05:20 Carbon Dioxide 15 mmol/L (21-33) L 10/31/16 05:20 Anion Gap 16 (10-20) 10/31/16 05:20 BUN 79 mg/dL (7-21) H 10/31/16 05:20 Creatinine 2.4 mg/dL (0.5-1.4) H 10/31/16 05:20 Est GFR ( Amer) 34 10/31/16 05:20 Est GFR (Non-Af Amer) 28 10/31/16 05:20 POC Glucose (mg/dL) 92 mg/dL (65-110) 10/20/16 08:11 Random Glucose 79 mg/dL (70-110) 10/31/16 05:20 Uric Acid 11.1 mg/dL (3.5-8.5) H 10/16/16 07:30 Calcium 7.0 mg/dL (8.4-10.5) L 10/31/16 05:20 Phosphorus 7.9 mg/dL (2.5-4.5) H 10/31/16 13:59 Magnesium 2.0 mg/dL (1.7-2.2) 10/31/16 05:20 Iron 28 ug/dL (45-180) L 10/03/16 04:10 TIBC 192 ug/dL (261-462) L 10/03/16 04:10 % Saturation 15 % (20-55) L 10/03/16 04:10 Ferritin 865.0 ng/mL 10/03/16 04:10 Total Bilirubin 1.6 mg/dL (0.2-1.3) H 10/31/16 05:20 AST 93 U/L (17-59) H 10/31/16 05:20 ALT 67 U/L (7-56) H 10/31/16 05:20 Alkaline Phosphatase 88 U/L (38-126) 10/31/16 05:20 Ammonia < 9 umol/L (9-33) L 10/24/16 13:20 Lactate Dehydrogenase 1226 U/L (333-699) H 10/03/16 08:30 Total Creatine Kinase 241 U/L (35-230) H 10/06/16 12:00 CK-MB (CK-2) 3.2 ng/mL (0.0-3.6) 10/06/16 12:00 CK-MB (CK-2) % 1.3 % (2.5-3.0) L 10/06/16 12:00 Troponin I 0.04 ng/mL D 10/05/16 02:50 Total Protein 3.9 g/dL (5.8-8.3) L 10/31/16 05:20 Albumin 1.4 g/dL (3.0-4.8) L 10/31/16 05:20 Globulin 2.5 gm/dL 10/31/16 05:20 Albumin/Globulin Ratio 0.6 (1.1-1.8) L 10/31/16 05:20 Lipase 523 U/L (23-300) H 10/02/16 18:00 Vitamin B12 963 pg/mL (239-931) H 10/03/16 04:10 25-OH Vitamin D Total < 12.8 NG/ML (30.0-100.0) L 10/14/16 12:30 Folate 9.9 ng/mL 10/03/16 04:10 Procalcitonin 1.44 NG/ML (0.19-0.49) H 10/14/16 08:00 TSH 3rd Generation 0.6 MIU/ml (0.46-4.68) 10/03/16 04:10 PTH Intact Whole Molec 67 pg/mL (14-64) H 10/14/16 12:30 Arterial Blood Potassium 3.4 mmol/L (3.6-5.2) L 10/24/16 10:50 Venous Blood Potassium 3.1 mmol/L (3.6-5.2) L 10/06/16 05:30 Urine Color Yellow (YELLOW) 10/16/16 02:50 Urine Appearance Slight-cloudy (CLEAR) 10/16/16 02:50 Urine pH 6.0 (4.7-8.0) 10/16/16 02:50 Ur Specific [place] 1.020 (1.005-1.035) 10/16/16 02:50 Urine Protein 100 mg/dL (<30 mg/dL) H 10/16/16 02:50 Urine Glucose (UA) Negative mg/dL (NEGATIVE) 10/16/16 02:50 Urine Ketones Negative mg/dL (NEGATIVE) 10/16/16 02:50 Urine Blood Large (NEGATIVE) H 10/16/16 02:50 Urine Nitrate Negative (NEGATIVE) 10/16/16 02:50 Urine Bilirubin Negative (NEGATIVE) 10/16/16 02:50 Urine Urobilinogen 0.2 E.U./dL (<1 E.U./dL) 10/16/16 02:50 Ur Leukocyte Esterase Negative Anthony/uL (NEGATIVE) 10/16/16 02:50 Urine RBC 10 - 15 /hpf (0-2) 10/16/16 02:50 Urine WBC 0 - 2 /hpf (0-6) 10/16/16 02:50 Ur Epithelial Cells 0 - 2 /hpf (0-5) 10/16/16 02:50 Urine Bacteria Mod (NEG) 10/16/16 02:50 Hyaline Casts 0 - 2 /hpf 10/04/16 13:40 Ur Random Creatinine 273 mg/dL 10/08/16 16:10 U Random Total Protein 897 mg/g creat (22-128) H 10/08/16 16:10 Ur Random Sodium 35 meq/L 10/08/16 16:10 Ur Random Potassium 3.4 meq/L 10/04/16 06:50 Urine Collection Time 24 HOURS 10/05/16 07:00 Urine Total Volume 890 mL (800-1400) 10/05/16 07:00 Urine Microalbumin > 950.0 mg/L (0.0-16.6) H 10/08/16 16:10 Urine Potassium 2.9 mmol/L 10/05/16 07:00 Ur Potassium 24 Hour 2.6 meq/24HR (25-120) L 10/05/16 07:00 Fluid Source Peritoneal 10/05/16 08:23 Fluid Appearance Clear (CLEAR) 10/05/16 08:23 Fluid WBC 563.0 /uL (0.0-300.0) H 10/05/16 08:23 Fluid RBC 414.0 /uL (0.0-0.0) H 10/05/16 08:23 Fluid Tot Cell Count 100 (0-0) H 10/05/16 08:23 Fluid Neutrophils 3.4 % (0-0) H 10/05/16 08:23 Fluid Lymphocytes 96.6 % (0-0) H 10/05/16 08:23 Fld Monocyte/Macrophag TEST NOT PERFORMED 10/05/16 08:23 Fluid Albumin 0.5 g/dL 10/05/16 08:23 Fluid Comment TEST NOT PERFORMED 10/05/16 08:23 Peritoneal Tot Protein <3.0 g/dL 10/05/16 08:23 Peritoneal LDH 113 U/L (<63) H 10/05/16 08:23 Stool Occult Blood Positive (NEGATIVE) H 10/24/16 08:09 Gentamicin Trough 8.0 ug/mL (0.0-0.9) H* 10/18/16 05:10 Vancomycin Trough 12.6 ug/mL (5.0-10.0) H 10/06/16 09:00 Salicylates < 1 mg/dL (2.0-20.0) L 10/02/16 16:39 Urine Opiates Screen Negative (NEGATIVE) 10/03/16 01:00 Urine Methadone Screen Negative (NEGATIVE) 10/03/16 01:00 Acetaminophen < 10.0 ug/ml (10.0-20.0) L 10/02/16 16:39 Ur Barbiturates Screen Negative (NEGATIVE) 10/03/16 01:00 Ur Phencyclidine Scrn Negative (NEGATIVE) 10/03/16 01:00 Ur Amphetamines Screen Negative (NEGATIVE) 10/03/16 01:00 U Benzodiazepines Scrn Positive (NEGATIVE) H 10/03/16 01:00 U Oth Cocaine Metabols Negative (NEGATIVE) 10/03/16 01:00 U Cannabinoids Screen Negative (NEGATIVE) 10/03/16 01:00 Alcohol, Quantitative < 10 mg/dL (0-10) 10/02/16 16:39 Cryoglobulin None detected (None Detected) 10/07/16 14:17 Rheumatoid Factor IgG <5 U (<=6) 10/07/16 14:17 Rheumatoid Factor IgA <5 U (<=6) 10/07/16 14:17 Rheumatoid Factor IgM 11 U (<=6) H 10/07/16 14:17 PEEWEE Screen Negative (Negative) 10/07/16 15:00 PEEWEE Titer TEST NOT PERFORMED 10/07/16 15:00 PEEWEE Titer 2 TEST NOT PERFORMED 10/07/16 15:00 PEEWEE Pattern TEST NOT PERFORMED 10/07/16 15:00 PEEWEE Pattern 2 TEST NOT PERFORMED 10/07/16 15:00 Complement C3 40.0 mg/dL (88.0-165.0) L 10/06/16 12:50 Complement C4 < 8.0 mg/dL (14.0-44.0) L 10/06/16 12:50 Hepatitis A IgM Ab Negative (NEGATIVE) 10/03/16 04:10 Hep Bs Antigen Negative (NEGATIVE) 10/03/16 04:10 Hep B Core IgM Ab Negative (NEGATIVE) 10/03/16 04:10 Hepatitis C Antibody Reactive (NEGATIVE) 10/03/16 04:10 HCV RNA Qual (TMA) Detected H 10/08/16 06:00 Beta-(1,3)-D-Glucan >500 pg/mL H 10/14/16 08:00 B-(1,3)-D-Glucan Intrp Positive H 10/14/16 08:00 Blood Type O POSITIVE 10/29/16 11:20 Antibody Screen Negative 10/29/16 11:20 Antibody Identification TNP 10/25/16 22:31 Crossmatch See Detail 10/29/16 11:20 BBK History Checked Patient has bt 10/29/16 11:20 Attending/Attestation - Attestation I have personally seen and examined this patient.: Yes I have fully participated in the care of the patient.: Yes I have reviewed all pertinent clinical information, including history, physical exam and plan: Yes Notes (Text): 11/02/16 09:09 56 year old male with past medical history of alcohol abuse who presented with alcohol withdrawal. Hospital course was complicated with respiratory failure s/p intubation now s/p trach, hemodynamic instability requiring vasopressor support, fungemia/sepsis on iv antibiotics, MODS/shock liver and anemia/thrombocytopenia requiring PRBC tranfusions. Overall prognosis remains poor. Palliative care follow up was appreciated and after discussion with family patient is transferred to inpatient hospice. Patrica Bingham MD Hospitalist.
== END 2016-10-31 19:26 | disposition hospice, inpatient (51) | DRG 878 ==
LOC: ED 16:30 → ERH 19:22 → CCU 21:54
PROVIDERS: ADMIT Internal Medicine; ATTEND Internal Medicine
PROC: 3E0F7GC Introduction of Other Therapeutic Substance into Respiratory Tract, Via Natural or Artificial Opening (ICD-10-PCS; 2016-10-03)
PROC: 06HY33Z Insertion of Infusion Device into Lower Vein, Percutaneous Approach (ICD-10-PCS; 2016-10-03)
PROC: 5A1955Z Respiratory Ventilation, Greater than 96 Consecutive Hours (ICD-10-PCS; 2016-10-04)
PROC: 0BH17EZ Insertion of Endotracheal Airway into Trachea, Via Natural or Artificial Opening (ICD-10-PCS; 2016-10-04)
PROC: 0W9G3ZZ Drainage of Peritoneal Cavity, Percutaneous Approach (ICD-10-PCS; 2016-10-05)
PROC: 30233N1 Transfusion of Nonautologous Red Blood Cells into Peripheral Vein, Percutaneous Approach (ICD-10-PCS; 2016-10-05)
PROC: 30233K1 Transfusion of Nonautologous Frozen Plasma into Peripheral Vein, Percutaneous Approach (ICD-10-PCS; 2016-10-06)
PROC: 30233R1 Transfusion of Nonautologous Platelets into Peripheral Vein, Percutaneous Approach (ICD-10-PCS; 2016-10-06)
PROC: 0BJ08ZZ Inspection of Tracheobronchial Tree, Via Natural or Artificial Opening Endoscopic (ICD-10-PCS; 2016-10-19)
PROC: 0B113F4 Bypass Trachea to Cutaneous with Tracheostomy Device, Percutaneous Approach (ICD-10-PCS; principal; 2016-10-19 10:00)
DX: F10.231 Alcohol dependence with withdrawal delirium (principal); N17.0 Acute kidney failure with tubular necrosis; K76.7 Hepatorenal syndrome; R65.21 Severe sepsis with septic shock; J96.21 Acute and chronic respiratory failure with hypoxia; G62.81 Critical illness polyneuropathy; G92 Toxic encephalopathy; I47.2 Ventricular tachycardia; J90 Pleural effusion, not elsewhere classified; N18.6 End stage renal disease; B37.7 Candidal sepsis; J15.1 Pneumonia due to Pseudomonas; K65.2 Spontaneous bacterial peritonitis; Z99.11 Dependence on respirator [ventilator] status; J96.22 Acute and chronic respiratory failure with hypercapnia; A04.7 Enterocolitis due to Clostridium difficile; D61.818 Other pancytopenia; E87.0 Hyperosmolality and hypernatremia; R56.9 Unspecified convulsions; K70.31 Alcoholic cirrhosis of liver with ascites; B19.20 Unspecified viral hepatitis C without hepatic coma; E87.6 Hypokalemia; B37.49 Other urogenital candidiasis; E87.2 Acidosis; D69.59 Other secondary thrombocytopenia; J44.0 Chronic obstructive pulmonary disease with (acute) lower respiratory infection; I12.0 Hypertensive chronic kidney disease with stage 5 chronic kidney disease or end stage renal disease; F11.10 Opioid abuse, uncomplicated; K70.40 Alcoholic hepatic failure without coma; I85.10 Secondary esophageal varices without bleeding; E83.42 Hypomagnesemia; E83.39 Other disorders of phosphorus metabolism; K42.9 Umbilical hernia without obstruction or gangrene; F32.9 Major depressive disorder, single episode, unspecified; F17.210 Nicotine dependence, cigarettes, uncomplicated; E83.51 Hypocalcemia; F41.9 Anxiety disorder, unspecified; Z66 Do not resuscitate; D68.9 Coagulation defect, unspecified; Y95 Nosocomial condition; Z51.5 Encounter for palliative care; K76.6 Portal hypertension; D50.9 Iron deficiency anemia, unspecified; Z88.2 Allergy status to sulfonamides; Z88.0 Allergy status to penicillin; Z80.0 Family history of malignant neoplasm of digestive organs; Z80.3 Family history of malignant neoplasm of breast

== ENCOUNTER 2016-10-31 19:30 | Inpatient (IN) | payer OTHER ==
[2016-10-31 20:45] VITALS: BMI 27.6
[2016-10-31] MEDS ORDERED: Pneumococcal 23-Valent Vaccine IM ONE (20:45)
[2016-10-31] MEDS ORDERED: Morphine 2 mg/ml ISec IVP PRN (21:42)
--- NOTE | 2016-11-01 16:00 | CP.PCM.HP ---
<Justo Torres - Last Filed: 11/02/16 19:38> History of Present Illness - History of Present Illness History of Present Illness: H&P/Discharge Summary This is a 56 year old male with a past medical history of liver cirrhosis, gastritis, hepatitis C, transamnitis, pancytopenia, ETOH withdrawal/abuse, esophageal varices, hypertension who came in complaining of anxiety and tremors for 2 days. Patient received Valium and Ativan when I saw the patient, thus ROS obtained from previous reports. Patient stopped drinking two days ago and started experiencing tremors, nausea, and vomiting. He denies neck pain, stiffness, chest pain, shortness of breath, night sweats, facial twitching, numbness and tingling. Patient was recently discharged from [facility] [facility] on 07/2016 for lower extremity rash, alcohol withdrawal and hypokalemia. Patient was tachycardic in the E.D. at heart rate of 126, T wave inversion on leads V2-V6, hypokalemia 1.6, hypomagnesemia 1.5, hypophosphatemia, trasaminitis, elevated troponin x1, normal CKMB, lipase of 523. Patient had blood cultures, urine cultures done. Patient became unresponsive overnight and began to desat and was intubated. The patient's abdomen also began to swell secondary to the liver cirrhosis and the patient had a paracentesis. Patient Patient had hypercapnic respiratory acidosis. Patient was seen by Cardiology, GI, Infectious Disease, Renal, Palliative and Ophthalmology. Patient was septic and was on Vancomycin and Merrem while in the ICU. The patient also be came hypotensive and was put on pressors to stabilize the blood pressure. The patient repeat sepsis workup showed gram negative bacilli and was given IV dose of gentamicin. Sputum cultures were positive for pseudomonas. Patient was weaned off intubated and had a trach placed shortly after. The patient had a rectal tube placed that was draining large amounts of dark red stool. Patient' s hemoglobin began to drop and become unstable. The patient was transfused 15 units of PRBC's while in the ICU. Patient also continued to have a drop in platelets and was transfused 3 units of FFP and 5 units of Leukocyte reduced Platelets. Patient was expected to get a peg tube placed last week however due to how unstable the patient was clinically it was put on hold indefinitely as a result. Patient was accepted to Hospice care and was discharged from the ICU to the 5 floor. ROS unobtainable due to patient's current clinical condition. Present on Admission - Present on Admission Any Indicators Present on Admission: No Review of Systems - Constitutional Constitutional: As Per HPI - EENT Eyes: As Per HPI Ears: As Per HPI Nose/Mouth/Throat: As Per HPI - Cardiovascular Cardiovascular: As Per HPI - Respiratory Respiratory: As Per HPI - Gastrointestinal Gastrointestinal: As Per HPI - Reproductive: Male Reproductive:Male: As Per HPI - Musculoskeletal Musculoskeletal: As Per HPI - Integumentary Integumentary: As Per HPI - Neurological Neurological: As Per HPI - Psychiatric Psychiatric: As Per HPI - Endocrine Endocrine: As Per HPI Past Patient History - Infectious Disease Hx of Infectious Diseases: None - Tetanus Immunizations Tetanus Immunization: Unknown - Past Medical History & Family History Past Medical History?: Yes - Past Social History Smoking Status: Former Smoker - CARDIAC Hx Cardiac Disorders: No - PULMONARY Hx Respiratory Disorders: No Other/Comment: Active smoker - NEUROLOGICAL Hx Neurological Disorder: Yes Hx Seizures: Yes - HEENT Hx HEENT Problems: Yes (eyeglasses) - RENAL Hx Chronic Kidney Disease: No - ENDOCRINE/METABOLIC Hx Endocrine Disorders: No - HEMATOLOGICAL/ONCOLOGICAL Hx Blood Disorders: No - INTEGUMENTARY Hx Dermatological Problems: No - MUSCULOSKELETAL/RHEUMATOLOGICAL Hx Falls: No - GASTROINTESTINAL Hx Gastrointestinal Disorders: Yes Other/Comment: Liver Dx, esophogeal varices, - GENITOURINARY/GYNECOLOGICAL Hx Genitourinary Disorders: No - PSYCHIATRIC Hx Substance Use: Yes (H/O BENZO OVERDOSE) - SURGICAL HISTORY Other/Comment: s/p banding of varices x2. endoscopy - ANESTHESIA Hx Anesthesia: Yes Hx Anesthesia Reactions: No Hx Malignant Hyperthermia: No Meds Allergies/Adverse Reactions: Allergies Allergy/AdvReac Type Severity Reaction Status Date / Time pseudoephedrine HCl Allergy Mild NAUSEA Verified 10/31/16 19:27 [From Sudafed] Sulfa (Sulfonamide Allergy Mild ANGIOEDEMA Verified 10/31/16 19:27 Antibiotics) Penicillins AdvReac Anxiety Verified 10/31/16 19:27 Physical Exam - Head Exam Head Exam: ATRAUMATIC, NORMAL INSPECTION, NORMOCEPHALIC - Eye Exam Eye Exam: PERRL. absent: Normal appearance, Periorbital tenderness Pupil Exam: PERRL. absent: Irregular, NORMAL ACCOMODATION - ENT Exam ENT Exam: Mucous Membranes Moist - Neck Exam Additional comments: Trach placed. - Respiratory Exam Respiratory Exam: Clear to Auscultation Bilateral, NORMAL BREATHING PATTERN - Cardiovascular Exam Cardiovascular Exam: REGULAR RHYTHM, +S1, +S2. absent: Gallop, Rubs - GI/Abdominal Exam GI & Abdominal Exam: Soft - Back Exam Additional comments: Un-stageable bed ulcers per nursing. - Neurological Exam Neurological exam: Alert, CN II-XII Intact, Oriented x3, Reflexes Normal - Psychiatric Exam Psychiatric exam: Normal Affect, Normal Mood - Skin Skin Exam: Dry, Intact Results - Vital Signs Recent Vital Signs: Last Vital Signs Temp 97.4 F L 11/01/16 07:30 Pulse 96 H 11/01/16 07:30 Resp 24 11/01/16 07:30 BP 82/49 L 11/01/16 07:30 Pulse Ox 94 L 11/01/16 07:30 Assessment & Plan - Assessment and Plan (Free Text) Assessment: 56 year old male with an initial presentation of AMS in the setting of persistent hypokalemia and alcohol withdrawal, which resolved. Patient was then intubated after he was found to be in hypercapnic respiratory failure and subsequently became hemodynamically unstable requiring dual vasopressor support. His presentation is consistent with distributive shock likely from either acute decompensated chronic liver failure or sepsis from C. Diff colitis , with multiorgan dysfunction syndrome including renal failure, encephalopathy and respiratory failure. Patient is no longer requiring vasopressin or levophed for hemodynamic support but is on midodrine. Patient is currently unresponsive to verbal or tactile stimuli off of sedation. Patient is has been transitioned from PRVC to PS/CPAP. Patient transferred to med/surg floor under hospitalist team for Hospice care. Plan: -Hospice Care nurse admitted him to Med/Surg. -Comfort measure in place. Will continue to monitor closely. <Patrica Bingham - Last Filed: 11/03/16 06:53> Results - Vital Signs Recent Vital Signs: Last Vital Signs Temp 97.9 F 11/01/16 16:00 Pulse 94 H 11/01/16 16:00 Resp 22 11/01/16 16:00 BP 74/48 L 11/01/16 16:00 Pulse Ox 93 L 11/01/16 16:00 Attending/Attestation - Attestation I have personally seen and examined this patient.: Yes I have fully participated in the care of the patient.: Yes I have reviewed all pertinent clinical information: Yes Notes (Text): 11/03/16 06:52 Above is H&P and D/C Summary 56 year old male with past medical history of alcohol abuse who presented with alcohol withdrawal. Hospital course was complicated with respiratory failure s/p intubation now s/p trach, hemodynamic instability requiring vasopressor support, fungemia/sepsis on iv antibiotics, MODS/shock liver and anemia/thrombocytopenia requiring PRBC tranfusions. He remained in the ICU for several weeks with multiple subspecialties followed. Overall prognosis remained poor. Palliative care follow up was appreciated and after discussion with family patient was transferred to inpatient hospice. He was placed on comfort care measures. He the same evening. Patrica Bingham MD Hospitalist.
[2016-11-01 18:33] VITALS: BP 74/48; PULSE 94; RESP 22; TEMP 97.9; O2SAT 93
--- NOTE | 2016-11-01 23:45 | CP.PCM.PRO ---
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 [id number]
--- NOTE | 2016-11-02 09:05 | CARD ---
APPROVED REPORT EKG Measurement Heart [id number] QT0T0 QTc0 <Conclusion> No QRS complexes found, no ECG analysis possible
== END 2016-11-01 23:04 | DRG 871 ==
LOC: CCU 19:30 → 5RNO 23:03
PROVIDERS: ADMIT Internal Medicine; ATTEND Internal Medicine
DX: A41.4 Sepsis due to anaerobes (principal); J96.92 Respiratory failure, unspecified with hypercapnia; R65.21 Severe sepsis with septic shock; G93.40 Encephalopathy, unspecified; E87.2 Acidosis; A04.7 Enterocolitis due to Clostridium difficile; Z93.0 Tracheostomy status; I85.00 Esophageal varices without bleeding; N19 Unspecified kidney failure; F10.239 Alcohol dependence with withdrawal, unspecified; K74.60 Unspecified cirrhosis of liver; K72.10 Chronic hepatic failure without coma; E87.6 Hypokalemia; E83.39 Other disorders of phosphorus metabolism; E83.42 Hypomagnesemia; I10 Essential (primary) hypertension; F17.200 Nicotine dependence, unspecified, uncomplicated; R74.0 Nonspecific elevation of levels of transaminase and lactic acid dehydrogenase [LDH]; K29.70 Gastritis, unspecified, without bleeding; Z87.898 Personal history of other specified conditions; Z88.0 Allergy status to penicillin; Z88.2 Allergy status to sulfonamides; Z88.8 Allergy status to other drugs, medicaments and biological substances; Z66 Do not resuscitate; Z86.69 Personal history of other diseases of the nervous system and sense organs; Z51.5 Encounter for palliative care